=== PATIENT | male | born 1980 | race Caucasian/White ===

== ENCOUNTER 2020-10-24 17:12 | Outpatient (RCR) | payer BC, SELFPAY ==
[2020-10-24] MEDS: COVID-19 VACC, MRNA(PFIZER)/PF 30 MCG/0.3 ML SYRINGE IM (07:13)
[2020-11-14] MEDS: COVID-19 VACC, MRNA(PFIZER)/PF 30 MCG/0.3 ML SYRINGE IM (07:04)
== END 2020-10-24 23:59 ==
LOC: IMMUN 17:12
PROVIDERS: PCP Student in an Organized Health Care Education/Training Program; Visit Provider Family Medicine
DX: Z23 Encounter for immunization (principal)
CPT/HCPCS: 0001A; 0002A; 91300

== ENCOUNTER 2021-11-14 14:40 | Inpatient (IN) | payer BC, SELFPAY ==
[2021-11-14] VITALS (24 sets, daily range): BP systolic 73–107; BP diastolic 25–68; PULSE 94–127; RESP 18–24; TEMP 36.4–39.6; O2SAT 91–99; BMI 50.2; BMI 50.1
--- NOTE | 2021-11-14 14:53 | EKG12_ITS ---
Test Reason : Blood Pressure : / mmHG Vent. Rate : 129 BPM Atrial Rate : 129 BPM P-R Int : 146 ms QRS Dur : 082 ms QT Int : 304 ms P-R-T Axes : 039 014 027 degrees QTc Int : 445 ms Sinus tachycardia Low Voltage QRS (Limb Leads) Confirmed by BARB GARCIA, KIAH ([id number]), order editor AILYN MCBRIDE ([id number]) on 11/18/2021 11:19:19 AM Referred By: CARLOS A Confirmed By:KIAH DAY MD
--- NOTE | 2021-11-14 15:04 | EDS_ITS ---
HPI History of Present Illness Chief Complaint: Wound Narrative Narrative: Patient presents with left foot redness with black spot on dorsum of left foot. Of note, he has a chronic ulceration of his right heel, and of his left arch. 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 He woke this morning and noticed that his left foot was severely swollen, reddened, with a black spot on top of it. He denies any fevers but states he is now chilled. He does not have a lot of pain because he has history of diabetes with diabetic neuropathy. He has had a hard time dealing with diabetic foot ulcers on his right, but is here because of the left foot swelling, and redness. No nausea or vomiting, no other symptoms. [facility] Medical History Diabetes Home Medications ciprofloxacin HCl 11/14/21 [History Last Taken Unknown] empagliflozin [Jardiance] mg 11/14/21 [History Last Taken Unknown] lisinopril 11/14/21 [History Last Taken Unknown] metformin mg 11/14/21 [History Last Taken Unknown] pravastatin 11/14/21 [History Last Taken Unknown] Allergy/AdvReac Type Severity Reaction Status Date / Time Penicillins [PCN] Allergy Rash Verified 11/14/21 14:41 Social History Smoking Status: Never smoker ROS ROS ED ROS Narrative Constitutional: No fever, no chills. HEENT: No sore throat. No neck pain. No loss of vision. No rhinorrhea. Cardiovascular: No chest pain. No palpitations. No pedal edema. Respiratory: No cough, no shortness of breath. Abdominal: No abdominal pain. No nausea. No vomiting. Genitourinary: No dysuria. No hematuria. Musculoskeletal: No myalgias. No arthralgias. Left foot redness, with swelling. Neurologic: No headaches. No dizziness. No lightheadedness. Skin: No rash. No change in color. Psychiatric: No depression. No anxiety. EXAM Physical Exam Narrative Exam Narrative: Afebrile. Vital signs noted. Nontoxic appearing, however has rigors occasionally during examination. HEENT: Normocephalic. Atraumatic. PERRL, EOMI. Neck soft and supple. No point tenderness or step off. Cardiovascular: Positive tachycardia. No murmurs, rubs, or gallops appreciated. Respiratory: No tachypnea. Lungs clear to auscultation bilaterally. Gastrointestinal: Abdomen soft, nontender, with normoactive bowel sounds. No rebound or guarding. Neurological: Awake. Alert. Nonfocal, nonlateralizing. Skin: No rash. Left foot swollen with noted ulceration in arch of left foot. Diffuse erythema. No pallor. Positive area of eschar versus blood blister on dorsum of left foot. Musculoskeletal: No pedal edema. Full range of motion extremities. Const Vital Signs: 11/14/21 14:41 11/14/21 15:08 11/14/21 15:48 Temperature 98.3 F 103.2 F H 102.7 F H Temperature Source Temporal Oral Oral Pulse Rate 118 H 127 H Respiratory Rate 20 H 19 H Blood Pressure 107/65 94/50 L Blood Pressure Mean 79 64 Pulse Ox 96 92 91 Oxygen Delivery Method Room Air Room Air Room Air Oxygen Flow Rate (L/min) 11/14/21 16:02 11/14/21 16:35 11/14/21 16:44 Temperature 102.7 F H 103 F H Temperature Source Oral Oral Pulse Rate 125 H 114 H Respiratory Rate 19 H 20 H Blood Pressure 79/44 L 82/45 L 82/45 L Blood Pressure Mean 55 57 57 Pulse Ox 93 95 Oxygen Delivery Method Nasal Cannula Nasal Cannula Oxygen Flow Rate (L/min) 2 2 11/14/21 16:53 11/14/21 17:03 11/14/21 17:04 Temperature 103 F H 103 F H 103 F H Temperature Source Oral Oral Oral Pulse Rate 116 H 114 H 114 H Respiratory Rate 18 24 H 24 H Blood Pressure 90/50 L 99/57 L 99/57 L Blood Pressure Mean 63 71 71 Pulse Ox 95 94 94 Oxygen Delivery Method Nasal Cannula Nasal Cannula Nasal Cannula Oxygen Flow Rate (L/min) 2 2 2 11/14/21 17:29 11/14/21 17:38 11/14/21 17:57 Temperature 102.6 F H 102 F H Temperature Source Oral Oral Pulse Rate 104 H 105 H 100 Respiratory Rate 19 H 20 H 20 H Blood Pressure 94/68 84/54 L 98/55 L Blood Pressure Mean 76 64 69 Pulse Ox 95 95 95 Oxygen Delivery Method Nasal Cannula Nasal Cannula Nasal Cannula Oxygen Flow Rate (L/min) 2 2 2 11/14/21 18:10 Temperature 102.4 F H Temperature Source Oral Pulse Rate 96 Respiratory Rate 21 H Blood Pressure 98/63 Blood Pressure Mean 74 Pulse Ox 98 Oxygen Delivery Method Oxygen Flow Rate (L/min) MDM MDM MDM Narrative Medical decision making narrative: Although the patient has been on antibiotics, sepsis work-up was pursued. He is tachycardic. EKG demonstrates sinus tachycardia 129 bpm without ectopy or acute ST changes. No STEMI. He is afebrile here. However, he did spike a temperature as high as 103 ?F. He will be bolused IV fluids. He has a white count elevated at 11.7 with a hemoglobin normal at 13.9, platelet count slightly low at 149. Coagulation studies are negative. Sodium level 130, BUN of 73 with a creatinine of 3.15. Glucose elevated at 245 with a normal anion gap of 9. Lactic acid is elevated at 2.9. Chest x-ray shows no acute process this was interpreted by myself. He will be bolused a total of 30 mL/kg which is close to 5 L. He was administered Tylenol as an antipyretic. He states his chills have stopped. X-ray interpreted by myself of the left foot does show gas in the tissue. There are previous fractures noted by radiology/confirmed by radiology with gas in the tissue noted. Patient does have a history of Owqegxw-Pcoja-Tevsn disease. However, given gas noted within the tissue of his left foot, I discussed the patient with podiatry, Dr. Perkins, who will take the patient to the OR emergently. He was started on antibiotics in the form of meropenem and vancomycin. Blood cultures are pending. Critical care time 33 minutes. Disposition is admit. Dr. Perkins did request that I speak with the hospitalist. I was able to speak with Dr. Julien, with intensive care who agrees with ICU admission at least temporarily. I then spoke with Dr. Garnett. Patient does have an elevated BUN and creatinine and may be more with acute kidney injury and dehydration than septic shock. He is still mentating well. 30 mL /kg of IV fluid was ordered. He has received at least 2 L and had an increase to his blood pressure of 107/65. Patient does have IV access with 2 IVs in the upper extremities. He declined central line placement currently and prefers that if needed that it be done under anesthesia. I did discuss this with the anesthesiologist should it be needed. I do not feel the need to start IV pressors for septic shock. Patient will be taken to the OR emergently, then admitted to the ICU afterwards. He is in guarded condition. Lab Data Attestation: I reviewed the patient's lab results. Labs: Laboratory Results - last 24 hr 11/14/21 11/14/21 11/14/21 15:11 15:11 15:11 WBC 11.7 H RBC 4.89 Hgb 13.9 Hct 40.6 MCV 83.0 MCH 28.4 MCHC 34.2 RDW Std Deviation 41.0 RDW Coeff of Venita 13.5 Plt Count 149 L MPV 10.3 Immature Gran % (Auto) 0.800 Neut % (Auto) 93.0 H Lymph % (Auto) 2.7 L [place] % (Auto) 3.3 Eos % (Auto) 0.0 Baso % (Auto) 0.2 Absolute Neuts (auto) 10.8 H Absolute Lymphs (auto) 0.32 L Nucleated RBC % 0 Differential Comment SCANNED PT 15.1 H INR 1.3 APTT 32.0 Sodium 130 L Potassium 4.4 Chloride 98 Carbon Dioxide 23.0 Anion Gap 9 BUN 73 H Creatinine 3.15 H Estim Creat Clear Calc 33.53 Est GFR (MDRD) Af Amer 28 L Est GFR (MDRD) Non-Af 23 L BUN/Creatinine Ratio 23.2 H Glucose 245 H Lactic Acid Calcium 9.7 Total Bilirubin 0.90 AST 32 ALT 37 Alkaline Phosphatase 85 Total Protein 7.6 Albumin 2.8 L Globulin 4.8 H Albumin/Globulin Ratio 0.6 L Urine Color Urine Clarity Urine pH Ur Specific [place] Urine Protein Urine Glucose (UA) Urine Ketones Urine Occult Blood Urine Nitrite Urine Bilirubin Urine Urobilinogen Ur Leukocyte Esterase Urine RBC Urine WBC Ur Squamous Epith Cells Urine Bacteria Hyaline Casts Fine Granular Casts Urine Mucus 11/14/21 11/14/21 15:11 16:36 WBC RBC Hgb Hct MCV MCH MCHC RDW Std Deviation RDW Coeff of Venita Plt Count MPV Immature Gran % (Auto) Neut % (Auto) Lymph % (Auto) [place] % (Auto) Eos % (Auto) Baso % (Auto) Absolute Neuts (auto) Absolute Lymphs (auto) Nucleated RBC % Differential Comment PT INR APTT Sodium Potassium Chloride Carbon Dioxide Anion Gap BUN Creatinine Estim Creat Clear Calc Est GFR (MDRD) Af Amer Est GFR (MDRD) Non-Af BUN/Creatinine Ratio Glucose Lactic Acid 2.9 H* Calcium Total Bilirubin AST ALT Alkaline Phosphatase Total Protein Albumin Globulin Albumin/Globulin Ratio Urine Color Yellow Urine Clarity Sl. Cloudy Urine pH 5.0 Ur Specific [place] 1.015 Urine Protein 30 H Urine Glucose (UA) 1000 H Urine Ketones 5 H Urine Occult Blood 10 H Urine Nitrite Negative Urine Bilirubin Negative Urine Urobilinogen Normal Ur Leukocyte Esterase Negative Urine RBC 0-5 SEEN Urine WBC 0-5 SEEN Ur Squamous Epith Cells 0-5 SEEN Urine Bacteria 0 SEEN Hyaline Casts 0-5 SEEN Fine Granular Casts 0-5 SEEN Urine Mucus 0 SEEN Radiography Diagnostic Testing: Clinical Impression(s) from Imaging Studies Chest X-Ray 11/14/21 15:30 IMPRESSION: Nonacute portable x-ray examination of the chest. Electronically Signed: Luigi Santacruz MD ([place]oks) at 15:49 EDT , Foot X-Ray 11/14/21 15:30 IMPRESSION: 1. Significant deformity of the midfoot suggesting possibility of neuropathic arthropathy. However, given the degree of soft tissue swelling and localized air, infection is also in the differential diagnosis. 2. Old fractures of the second-fifth metatarsals with residual deformity. Electronically Signed: Luigi Santacruz MD (Brooks) at 15:53 EDT , Tibia/Fibula X-Ray 11/14/21 17:10 IMPRESSION: No destructive bony process. Diffuse soft tissue swelling. Electronically Signed: Luigi Santacruz MD (Brooks) at 17:23 EDT , Critical Care Time Critical Care Time: Yes Critical care time (excluding procedures): 30-74 minutes (33), Including time spent:, Discussing w/Patient &/or Family/Delivery Technician, Discussing w/Consultants, Arranging Admission or Transfer and Performing Direct Patient Care at Bedside Discharge Plan Dx/Rx/DC Orders Clinical Impression: Diabetic infection of left foot, Sepsis, Dehydration, Acute kidney injury, Acute hyponatremia Disposition Disposition: Acute Care [facility] Discharge Date/Time: 11/14/21 19:23
[2021-11-14] MEDS: Acetaminophen 325 MG Tablet 650 MG PO (15:17)
[2021-11-14 15:29] LABS: Absolute Lymphocyte Count 0.32 X10^3/uL (0.83-4.51); Absolute Neutrophil Count 10.8 X10^3/uL (2.0-7.7); Basophil# 0.02 X10^3/uL; Basophil% 0.2 % (0-1); Hematocrit 40.6 % (40-54); Hemoglobin 13.9 g/dL (13.0-16.5); Lymphocyte # 0.32 X10^3/ul (0.83-4.51); Lymphocyte % 2.7 % (19-41); Mean Corp Hgb Conc 34.2 g/dL (32-36); Mean Corpuscular Hgb 28.4 pg (27.0-32.0); Mean Platelet Vol. 10.3 fl (6.2-12.0); Monocyte# 0.38 X10^3/uL; Monocyte% 3.3 % (0-10); NRBC Flagged by Analyzer 0 % (0-5); Neutrophil # 10.84 X10^3/uL (2.7-7.7); POSITIVE DIFFERENTIAL YES; Platelet Count 149 K/mm3 (150-450); RBC Distribution Width CV 13.5 % (11.6-14.6); Red Blood Count 4.89 M/mm3 (4.6-6.2); White Blood Count 11.7 K/mm3 (4.4-11.0)
[2021-11-14 15:30] LABS: Differential Indicated SCAN CRITERIA MET
--- NOTE | 2021-11-14 15:30 | RAD_ITS ---
STUDY: X-RAY - LEFT FOOT CLINICAL: Male, 41 years old. infection TECHNIQUE: 3 view(s) of the foot. COMPARISON: None. FINDINGS: Significant deformity of the mid foot including old fractures of the second through fifth metatarsals. There is increased sclerosis with areas of lucency involving the cuneiforms, cuboid, talus and anterior calcaneus. Normal second through fifth metatarsophalangeal joints. Normal interphalangeal joints and phalanges of the lesser toes. Significant soft tissue swelling throughout the foot with small collections of air in the dorsal and plantar soft tissues. RAD/Foot min 3 Views IMPRESSION: 1. Significant deformity of the midfoot suggesting possibility of neuropathic arthropathy. However, given the degree of soft tissue swelling and localized air, infection is also in the differential diagnosis. 2. Old fractures of the second-fifth metatarsals with residual deformity. Electronically Signed: Luigi Santacruz MD ([place]oks) at 15:53 EDT ,
--- NOTE | 2021-11-14 15:30 | RAD_ITS ---
STUDY: X-RAY CHEST REASON FOR EXAM: Male, 41 years old wound to bottom of left foot and right ankle, on ATB since Tuesday-diabetic TECHNIQUE: Single AP portable view of the chest. COMPARISON: None. FINDINGS: EKG leads project over the chest. Lungs are underexpanded. There is no demonstrated pleural abnormality. Normal size heart. Normal mediastinum and michelle. Normal visualized pulmonary arteries. Normal visualized aortic arch and descending thoracic aorta. Normal visualized thoracic spine. Normal visualized ribs, clavicles, and shoulders. There is no demonstrated abnormality of the visualized soft tissue structures of the upper abdomen. RAD/Chest 1 View (Portable) IMPRESSION: Nonacute portable x-ray examination of the chest. Electronically Signed: Luigi Santacruz MD ([place]oks) at 15:49 EDT ,
[2021-11-14 15:40] LABS: International Normalized Ratio 1.3; Prothrombin Time (Protime)PT. 15.1 SECONDS (11.7-14.9)
[2021-11-14 15:44] LABS: Differential Comment SCANNED
[2021-11-14 15:48] LABS: ALB/GLOB Ratio 0.6 RATIO (0.9-2.4); AST(SGOT) 32 U/L (15-37); Alanine Aminotransfer ALT/SGPT 37 U/L (16-61); Albumin, Serum 2.8 g/dL (3.2-5.0); Alkaline Phosphatase 85 U/L (45-117); Anion Gap 9 (5-15); BUN 73 mg/dL (7-18); BUN/Creat Ratio 23.2 RATIO (10-20); Calcium,Total 9.7 mg/dL (8.5-10.1); Chloride 98 mmol/L (98-107); Creatinine, Serum 3.15 mg/dL (0.70-1.30); EST Glomerular Filtration Rate 23 mL/min (>60); Est Glom Filt Rate - Afr Amer 28 mL/min (>60); Estimated Creatinine Clearance 33.53 ml/min; Globulin 4.8 g/dL (2.2-4.2); Glucose 245 mg/dL (74-106); Potassium 4.4 mmol/L (3.5-5.1); Protein, Total 7.6 g/dL (6.4-8.2); Sodium Level 130 mmol/L (136-145)
[2021-11-14 15:55] LABS: Lactic Acid 2.9 mmol/L (0.4-1.9)
--- NOTE | 2021-11-14 16:09 | ED.RN ---
DR. VALLEJO AWARE OF HYPOTENSION AND STATES THEY WILL NEED THE 30ML/KG NS.AWAITING ON ORDER. CURRENTLY RUNNING 1L NS WIDE OPEN.
[2021-11-14] MEDS: 0.9% Normal Saline 1,000 ML 999 ML IV ×4 (16:10→21:50)
[2021-11-14 16:47] LABS: Bacteria 0 SEEN /hpf (None Seen); Mucous, Urine 0 SEEN /hpf (<or=2+)
[2021-11-14 16:49] LABS: Color, Urine Yellow (Yellow); Glucose, Dipstick 1000 mg/dl (Normal); Ketone-Dipstick 5 mg/dl (Negative); Leukocyte Esterase-Dipstick Negative /ul (Negative); Nitrite-Dipstick Negative (Negative); Protein-Dipstick 30 mg/dl (Negative); Specific Gravity, Urine 1.015 (1.002-1.030); Urine Bilirubin Dipstick Negative (Negative); Urine Clarity Sl. Cloudy (Clear); Urine Urobilinogen Normal (Normal)
[2021-11-14 16:51] LABS: Occult Blood-Urine 10 /ul (Negative)
--- NOTE | 2021-11-14 17:02 | ED.RN ---
[employer] Architect Frankie is aware of pts vital signs and being treated for severe sepsis.
--- NOTE | 2021-11-14 17:10 | RAD_ITS ---
STUDY: X-RAY - LEFT TIBIA AND FIBULA REASON FOR EXAM: Male, 41 years old. gas infection TECHNIQUE: 2 view(s) of the tibia and fibula were obtained. COMPARISON: None. FINDINGS: Normal visualized tibia. Normal visualized fibula. There is non-specific soft tissue swelling. RAD/Tibia & Fibula 2 Views IMPRESSION: No destructive bony process. Diffuse soft tissue swelling. Electronically Signed: Luigi Santacruz MD (Brooks) at 17:23 EDT ,
[2021-11-14 17:13] LABS: Hyaline Cast 0-5 SEEN /lpf (0-5)
[2021-11-14 17:14] LABS: Fine Granular Cast- Urine 0-5 SEEN /lpf (0-5)
[2021-11-14 17:15] LABS: White Blood Cells 0-5 SEEN /hpf (0-5)
[2021-11-14 17:16] LABS: Red Blood Cells-Urine 0-5 SEEN /hpf (0-5)
[2021-11-14 17:22] LABS: Squamous Epithelial Cells - UA 0-5 SEEN /hpf (0-5)
--- NOTE | 2021-11-14 18:00 | PCM.HP.STD ---
HPI - General HPI Narrative SNEHA WEI, is a 41 M who presents with a new on set fever chills malaise due to a left foot ulceration which started in September. Patient is a type II diabetic with bilateral Charcot foot and a history of a severe right lower extremity infection. Patient notes that his blood sugar has been well controlled until recently noting a recent A1c of 6.2. He was seen by a assistant dean of students in [facility] by the name of Dex Kyle D.P.M. approximately 3 weeks prior for a left foot ulceration. On Tuesday of this week patient noticed some redness and swelling to the left foot and a fever, he reached out to his assistant dean of students and was prescribed oral antibiotics. Today he presents to the ED due to worsening of his fever chills malaise left foot swelling and redness. Patient has no pain to the site due to severe neuropathy. He notes significant purulent drainage from the site and has no other complaints at this time. [facility] Medical History Diabetes Home Medications ciprofloxacin HCl 11/14/21 [History Last Taken Unknown] empagliflozin [Jardiance] mg 11/14/21 [History Last Taken Unknown] lisinopril 11/14/21 [History Last Taken Unknown] metformin mg 11/14/21 [History Last Taken Unknown] pravastatin 11/14/21 [History Last Taken Unknown] Allergy/AdvReac Type Severity Reaction Status Date / Time Penicillins [PCN] Allergy Rash Verified 11/14/21 14:41 Social History Smoking Status: Never smoker Vital Signs Vital Signs Vital Signs: 11/14/21 14:41 11/14/21 15:08 11/14/21 15:48 Temperature 98.3 F 103.2 F H 102.7 F H Temperature Source Temporal Oral Oral Pulse Rate 118 H 127 H Respiratory Rate 20 H 19 H Blood Pressure 107/65 94/50 L Blood Pressure Mean 79 64 Pulse Ox 96 92 91 Oxygen Delivery Method Room Air Room Air Room Air Oxygen Flow Rate (L/min) 11/14/21 16:02 11/14/21 16:35 11/14/21 16:44 Temperature 102.7 F H 103 F H Temperature Source Oral Oral Pulse Rate 125 H 114 H Respiratory Rate 19 H 20 H Blood Pressure 79/44 L 82/45 L 82/45 L Blood Pressure Mean 55 57 57 Pulse Ox 93 95 Oxygen Delivery Method Nasal Cannula Nasal Cannula Oxygen Flow Rate (L/min) 2 2 11/14/21 16:53 11/14/21 17:03 11/14/21 17:04 Temperature 103 F H 103 F H 103 F H Temperature Source Oral Oral Oral Pulse Rate 116 H 114 H 114 H Respiratory Rate 18 24 H 24 H Blood Pressure 90/50 L 99/57 L 99/57 L Blood Pressure Mean 63 71 71 Pulse Ox 95 94 94 Oxygen Delivery Method Nasal Cannula Nasal Cannula Nasal Cannula Oxygen Flow Rate (L/min) 2 2 2 11/14/21 17:29 11/14/21 17:38 11/14/21 17:57 Temperature 102.6 F H 102 F H Temperature Source Oral Oral Pulse Rate 104 H 105 H 100 Respiratory Rate 19 H 20 H 20 H Blood Pressure 94/68 84/54 L 98/55 L Blood Pressure Mean 76 64 69 Pulse Ox 95 95 95 Oxygen Delivery Method Nasal Cannula Nasal Cannula Nasal Cannula Oxygen Flow Rate (L/min) 2 2 2 Weight Weight: 163.2 kg Body Mass Index (BMI) 50.1 Physical Exam Narrative Patient is alert oriented to person place and time. Patient seen bedside but typically ambulates in [place] walking boots to bilateral feet. Vascular: Dorsalis pedis and posterior tibial pulses palpable 2 out of 4 to bilateral lower extremity. Capillary fill time brisk to all digits bilaterally. Digital hair growth noted bilaterally. There is significant edema and erythema noted to the left foot along with warmth extending into the ankle. Neurologic: Light touch protective sensation absent to bilateral feet. No pain on physical examination. Dermatologic: Full-thickness ulceration noted to the plantar left medial longitudinal arch, this wound probes down the level of bone and is exuding significant amount of purulence there is periwound crepitus warmth erythema edema extending into the dorsal midfoot. No evidence of crepitus or fluctuance noted to the area ankle region or more proximal to that. There is a hemorrhagic bullous to the dorsal left foot with communicating erythema down to the plantar medial foot wound. Musculoskeletal: Charcot foot deformity noted bilaterally with collapse of lateral longitudinal arch creating a plantar convexity bilaterally. Muscular strength full to bilateral lower extremity compartments. Crepitus noted to the wound and periwound area on the left lower extremity. Results Lab / Micro Data Result Diagrams: 11/14/21 15:11 11/14/21 15:11 Labs: Laboratory Results - last 24 hr 11/14/21 15:11: WBC 11.7 H, RBC 4.89, Hgb 13.9, Hct 40.6, MCV 83.0, MCH 28.4, MCHC 34.2, RDW Std Deviation 41.0, RDW Coeff of Venita 13.5, Plt Count 149 L, MPV 10.3, Immature Gran % (Auto) 0.800, Neut % (Auto) 93.0 H, Lymph % (Auto) 2.7 L, Yell % (Auto) 3.3, Eos % (Auto) 0.0, Baso % (Auto) 0.2, Absolute Neuts (auto) 10.8 H, Absolute Lymphs (auto) 0.32 L, Nucleated RBC % 0, Differential Comment SCANNED 11/14/21 15:11: PT 15.1 H, INR 1.3, APTT 32.0 11/14/21 15:11: Sodium 130 L, Potassium 4.4, Chloride 98, Carbon Dioxide 23.0, Anion Gap 9, BUN 73 H, Creatinine 3.15 H, Estim Creat Clear Calc 33.53, Est GFR (MDRD) Af Amer 28 L, Est GFR (MDRD) Non-Af 23 L, BUN/Creatinine Ratio 23.2 H, Glucose 245 H, Calcium 9.7, Total Bilirubin 0.90, AST 32, ALT 37, Alkaline Phosphatase 85, Total Protein 7.6, Albumin 2.8 L, Globulin 4.8 H, Albumin/Globulin Ratio 0.6 L 11/14/21 15:11: Lactic Acid 2.9 H* 11/14/21 16:36: Urine Color Yellow, Urine Clarity Sl. Cloudy, Urine pH 5.0, Ur Specific [place] 1.015, Urine Protein 30 H, Urine Glucose (UA) 1000 H, Urine Ketones 5 H, Urine Occult Blood 10 H, Urine Nitrite Negative, Urine Bilirubin Negative, Urine Urobilinogen Normal, Ur Leukocyte Esterase Negative, Urine RBC 0-5 SEEN, Urine WBC 0-5 SEEN, Ur Squamous Epith Cells 0-5 SEEN, Urine Bacteria 0 SEEN, Hyaline Casts 0-5 SEEN, Fine Granular Casts 0-5 SEEN, Urine Mucus 0 SEEN Radiology Impression Chest X-Ray 11/14/21 15:30 IMPRESSION: Nonacute portable x-ray examination of the chest. Electronically Signed: Luigi Santacruz MD ([place]oks) at 15:49 EDT , Foot X-Ray 11/14/21 15:30 IMPRESSION: 1. Significant deformity of the midfoot suggesting possibility of neuropathic arthropathy. However, given the degree of soft tissue swelling and localized air, infection is also in the differential diagnosis. 2. Old fractures of the second-fifth metatarsals with residual deformity. Electronically Signed: Luigi Santacruz MD (Brooks) at 15:53 EDT , Tibia/Fibula X-Ray 11/14/21 17:10 IMPRESSION: No destructive bony process. Diffuse soft tissue swelling. Electronically Signed: Luigi Santacruz MD (Brooks) at 17:23 EDT , Assessment & Plan Assessment/Plan (1) Diabetic infection of left foot: PLAN: Patient examined and evaluated, all findings examined and reviewed with patient's in detail. This discussion was held with patient's family as well. Radiographs of the left foot demonstrate subcutaneous emphysema adjacent to the plantar foot wound extending to the dorsal midfoot. Tibiofibular radiographs were ordered to rule out any proximal spread of soft tissue emphysema. Patient developed a wound to his left foot in September which was treated by another provider in the middle of October, but developed an infection to this foot over the past week. Patient appears vitally unstable at this time with tachycardia and hypotension likely secondary to severe left lower extremity gas infection. After discussion with multiple providers decision was made to take the patient for emergent incision and drainage of severe left foot gas infection. Patient will be admitted to the ICU due to vital instability. We will consult infectious disease for additional management. Patient currently receiving IV vancomycin in the ED. Upon completion of the procedure I would recommend addition of Zosyn and clindamycin as clindamycin has been documented limit exotoxin toxin synthesis and may decrease any systemic effects from this infection. Patient will be followed closely and depending his response to surgical intervention and IV antibiotics along with fluid replacement we may consider delayed primary closure or repeat debridement in the following next couple days. We will follow patient daily. 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
--- NOTE | 2021-11-14 18:46 | HP.PCM.HOS_ITS ---
[facility] - General General Date of Service: 11/14/21 HPI Narrative SNEHA WEI, is a 41 M who presents to the ER at [facility] due to fever and chills at home and increased swelling of his left foot. Patient is a type II diabetic, he takes oral medications, he states that he was on vacation in [place] September of this year and he got a blister on the plantar surface of his left foot, since that time, he has been seeing physicians regarding this foot blister, he was placed on antibiotics approximately a week ago by a antichecking iron worker in [facility]. Today he stated that he did not feel well and he came to the ER here for evaluation. Patient gets his medical care in [place], his last labs that were done appear to be in December of last year, it showed his hemoglobin A1c to be 6 and his creatinine was 0.9. Patient denies any history of chronic kidney disease, again he does not take any insulin. Valuation in the emergency room showed the patient to have a very high fever of 103, his blood pressure on admission to the ER was 82/45, his respiratory rate was 20. Patient's pulse ox on room air initially was 92%, he was then subsequently placed on 2 L of oxygen with a pulse ox of 95. On examination, patient's left foot was grossly swollen, there was an open area on the plantar surface of the left foot in the mid arch area, there was also an ecchymotic area on the dorsum of the patient's left foot. Patient's right lateral malleolus had a small ulceration but this did not appear purulent-according to the patient this was a chronic wound. Patient had changes over both his feet suggestive of Charcot feet. Labs were obtained, patient's white blood cell count was 11.7, platelet count was 149, sodium was 130, BUN was 73, creatinine was 3.15 and glucose was 245. Patient's lactic acid was 2.9. X-ray of the left foot showed a significant deformity of the midfoot suggestive possibility of neuropathic arthropathy, there was a significant amount of soft tissue swelling throughout the foot with small collections of air in the dorsal and plantar soft tissues. Podiatry was contacted (Dr. Perkins) and he requested admission under the hospitalist service due to the patient's unstable medical condition. Patient was given fluids in the emergency room with a positive response, blood pressure at the time of my dictation was 106 systolic. Patient will be admitted to ICU for septic shock from deep neuropathic foot infection, he will most likely go to surgery before he is admitted to ICU, critical care will see the patient in the morning, patient was given meropenem and vancomycin in the ER-this will be continued in the ICU. I believe the patient probably has acute kidney injury-I do not have a recent set of labs on the patient, again the last lab work that I was able to obtain was from last December 2020. [facility] Medical History Diabetes Home Medications ciprofloxacin HCl 11/14/21 [History Last Taken Unknown] empagliflozin [Jardiance] mg 11/14/21 [History Last Taken Unknown] lisinopril 11/14/21 [History Last Taken Unknown] metformin mg 11/14/21 [History Last Taken Unknown] pravastatin 11/14/21 [History Last Taken Unknown] Allergy/AdvReac Type Severity Reaction Status Date / Time Penicillins [PCN] Allergy Rash Verified 11/14/21 14:41 Social History Smoking Status: Never smoker ROS Constitutional Constitutional: Reports chills, fever(s), malaise and weakness; Denies anorexia, change in weight or night sweats Eyes Eyes: Denies blurry vision, change in vision, discharge from eye(s), double vision or eye pain Cardiovascular Cardiovascular: Denies chest pain, claudication, dyspnea on exertion, edema, lightheadedness, orthopnea or palpitations Respiratory/Chest Respiratory/Chest: Denies cough, hemoptysis, shortness of breath at rest or shortness of breath with exertion Gastrointestinal Gastrointestinal: Denies abdominal pain, constipation, diarrhea, dyspepsia, hematemesis, hematochezia, melena, nausea or vomiting Genitourinary Genitourinary: Denies difficulty urinating, dysuria, hematuria, urinary frequency, urinary hesitancy, urinary incontinence or urinary urgency Musculoskeletal Musculoskeletal: Denies back pain, joint pain, joint stiffness, joint swelling, myalgias or neck pain Neurologic Neurologic: Reports other Details: Patient has decreased sensation in his feet which is a chronic problem due to his diabetes ; Denies abnormal gait, abnormal speech, dizziness, focal weakness, headache(s), loss of vision, numbness, other visual disturbances, paresthesias, syncope or tingling Psychiatric Psychiatric: Denies anxiety, cognitive impairment, depression, irritability, mood swings or suicidal ideation Endocrine Endocrinology: Denies change in body appearance, cold intolerance, excessive sweating, heat intolerance, polydipsia or polyuria Hematologic/Lymphatic Hematologic/Lymphatic: Denies none, anemia, easy bleeding, easy bruising or lymphadenopathy Allergic/Immunologic Allergic/Immunologic: Denies rhinitis, urticaria, eczemia or asthma Vital Signs Vital Signs Vital Signs: 11/14/21 14:41 11/14/21 15:08 11/14/21 15:48 Temperature 98.3 F 103.2 F H 102.7 F H Temperature Source Temporal Oral Oral Pulse Rate 118 H 127 H Respiratory Rate 20 H 19 H Blood Pressure 107/65 94/50 L Blood Pressure Mean 79 64 Pulse Ox 96 92 91 Oxygen Delivery Method Room Air Room Air Room Air Oxygen Flow Rate (L/min) 11/14/21 16:02 11/14/21 16:35 11/14/21 16:44 Temperature 102.7 F H 103 F H Temperature Source Oral Oral Pulse Rate 125 H 114 H Respiratory Rate 19 H 20 H Blood Pressure 79/44 L 82/45 L 82/45 L Blood Pressure Mean 55 57 57 Pulse Ox 93 95 Oxygen Delivery Method Nasal Cannula Nasal Cannula Oxygen Flow Rate (L/min) 2 2 11/14/21 16:53 11/14/21 17:03 11/14/21 17:04 Temperature 103 F H 103 F H 103 F H Temperature Source Oral Oral Oral Pulse Rate 116 H 114 H 114 H Respiratory Rate 18 24 H 24 H Blood Pressure 90/50 L 99/57 L 99/57 L Blood Pressure Mean 63 71 71 Pulse Ox 95 94 94 Oxygen Delivery Method Nasal Cannula Nasal Cannula Nasal Cannula Oxygen Flow Rate (L/min) 2 2 2 11/14/21 17:29 11/14/21 17:38 11/14/21 17:57 Temperature 102.6 F H 102 F H Temperature Source Oral Oral Pulse Rate 104 H 105 H 100 Respiratory Rate 19 H 20 H 20 H Blood Pressure 94/68 84/54 L 98/55 L Blood Pressure Mean 76 64 69 Pulse Ox 95 95 95 Oxygen Delivery Method Nasal Cannula Nasal Cannula Nasal Cannula Oxygen Flow Rate (L/min) 2 2 2 11/14/21 18:10 Temperature 102.4 F H Temperature Source Oral Pulse Rate 96 Respiratory Rate 21 H Blood Pressure 98/63 Blood Pressure Mean 74 Pulse Ox 98 Oxygen Delivery Method Oxygen Flow Rate (L/min) Weight Weight: 163.2 kg Body Mass Index (BMI) 50.1 Physical Exam Narrative Patient appeared his stated age, he appeared diaphoretic but was alert and appropriate. Const alert, oriented x3, no apparent distress and healthy appearing Constitutional Narrative: Patient was morbidly obese General Appearance: cooperative, well kempt and well developed Orientation / Consciousness: awake, oriented to person, oriented to place and oriented to time HEENT normocephalic and moist oral mucous membranes Eyes PERRL, EOMs intact bilaterally and conjunctivae normal Neck nuchal rigidity, supple, no JVD, thyroid normal and no carotid bruits General: trachea midline Resp normal respiratory effort, no retractions, no use of accessory muscles and clear to auscultation bilaterally Auscultation: Negative for rales, rhonchi or wheezes Cardio regular rate, regular rhythm, S1 normal heart sound, S2 normal heart sound, no murmurs, no rub and no gallops GI normal to inspection, nondistended, normoactive bowel sounds, soft to palpation, non-tender and non-distended Extremity Extremity Narrative: There are deformities of both feet in keeping with Charcot feet, decreased sensation to light touch and pinprick in the feet were noted Skin Skin Narrative: There was a wound over the plantar surface of the patient's left foot at the midpoint, this open area was approximately 3 to 4 cm in diameter, this area was not probed by myself, there is also an ecchymotic area that appears to be blisterlike on the dorsum of the left foot over the midfoot area. General Skin Exam: no breakdown Neuro oriented x3, CN's II-XII intact bilaterally, no focal motor deficits and no sensory deficits noted Sensorium / Orientation: awake and alert Speech: speech normal Psych affect normal Results Lab / Micro Data Result Diagrams: 11/14/21 15:11 11/14/21 15:11 Labs: Laboratory Results - last 24 hr 11/14/21 15:11: WBC 11.7 H, RBC 4.89, Hgb 13.9, Hct 40.6, MCV 83.0, MCH 28.4, MCHC 34.2, RDW Std Deviation 41.0, RDW Coeff of Venita 13.5, Plt Count 149 L, MPV 10.3, Immature Gran % (Auto) 0.800, Neut % (Auto) 93.0 H, Lymph % (Auto) 2.7 L, [place] % (Auto) 3.3, Eos % (Auto) 0.0, Baso % (Auto) 0.2, Absolute Neuts (auto) 10.8 H, Absolute Lymphs (auto) 0.32 L, Nucleated RBC % 0, Differential Comment SCANNED 11/14/21 15:11: PT 15.1 H, INR 1.3, APTT 32.0 11/14/21 15:11: Sodium 130 L, Potassium 4.4, Chloride 98, Carbon Dioxide 23.0, Anion Gap 9, BUN 73 H, Creatinine 3.15 H, Estim Creat Clear Calc 33.53, Est GFR (MDRD) Af Amer 28 L, Est GFR (MDRD) Non-Af 23 L, BUN/Creatinine Ratio 23.2 H, Glucose 245 H, Calcium 9.7, Total Bilirubin 0.90, AST 32, ALT 37, Alkaline Phosphatase 85, Total Protein 7.6, Albumin 2.8 L, Globulin 4.8 H, Albumin/Globulin Ratio 0.6 L 11/14/21 15:11: Lactic Acid 2.9 H* 11/14/21 16:36: Urine Color Yellow, Urine Clarity Sl. Cloudy, Urine pH 5.0, Ur Specific [place] 1.015, Urine Protein 30 H, Urine Glucose (UA) 1000 H, Urine Ketones 5 H, Urine Occult Blood 10 H, Urine Nitrite Negative, Urine Bilirubin Negative, Urine Urobilinogen Normal, Ur Leukocyte Esterase Negative, Urine RBC 0-5 SEEN, Urine WBC 0-5 SEEN, Ur Squamous Epith Cells 0-5 SEEN, Urine Bacteria 0 SEEN, Hyaline Casts 0-5 SEEN, Fine Granular Casts 0-5 SEEN, Urine Mucus 0 SEEN Radiology Impression Chest X-Ray 11/14/21 15:30 IMPRESSION: Nonacute portable x-ray examination of the chest. Electronically Signed: Luigi Santacruz MD ([place]) at 15:49 EDT Reading Location ID and State: [facility] / [place] , Service support , Foot X-Ray 11/14/21 15:30 IMPRESSION: 1. Significant deformity of the midfoot suggesting possibility of neuropathic arthropathy. However, given the degree of soft tissue swelling and localized air, infection is also in the differential diagnosis. 2. Old fractures of the second-fifth metatarsals with residual deformity. Electronically Signed: Luigi Santacruz MD (Brooks) at 15:53 EDT , Tibia/Fibula X-Ray 11/14/21 17:10 IMPRESSION: No destructive bony process. Diffuse soft tissue swelling. Electronically Signed: Luigi Santacruz MD ([place]) at 17:23 EDT , Assessment & Plan Assessment/Plan (1) Type 2 diabetes mellitus with diabetic polyneuropathy: QUALIFIERS: Diabetes mellitus longterm insulin use: without longterm use Qualified Code(s): E11.42 - Type 2 diabetes mellitus with diabetic polyneuropathy PLAN: 1. Deep neuropathic wound of the left foot secondary to diabetic neuropathy with possible gas gangrene-patient will need to go to surgery tonight, I talked briefly with podiatry about his care. Patient was given meropenem and vancomycin in the emergency room and is being administered fluids. Cultures will be obtained during surgery. #2 septic shock secondary to #1-patient's blood pressure has improved with administration of fluids in the emergency room, he is on no pressors at the moment, he may not need pressors after fluid resuscitation. Patient will need to go to the ICU after surgery for further care. Vancomycin and meropenem will be continued. #3 type 2 diabetes-on oral medications only-patient's blood sugars will be monitored and sliding scale insulin will be used #4 morbid obesity-complicates care and recovery #5 diabetic neuropathy of the feet-complicates care and recovery #6 acute kidney injury-again I do not have a recent creatinine on the patient but it appears that the patient's renal function at baseline is normal, patient has never been told that he has had a problem with kidney function. #7 hyponatremia-patient will receive IV normal saline, labs will be monitored Charges/Coding Visit Charges Inpatient E&M: 22730 Init Hosp L3
[2021-11-14 19:15] LABS: Reflex Lactate? Y
--- NOTE | 2021-11-14 19:40 | BON_PTH ---
PATIENT: SNEHA WEI Jr. LOC: [facility] U#:[id number] AGE/SX: 41/M ROOM: [facility] RE11/14/[address]: Dr. Zain Shields DO : 1980 BED: 1 DIS: 11/21/2021 SPEC #: [id number] RECD: 11/16/21 08:04 STATUS: CAROLINA EDWARD #: [id number] DEREK: 11/14/21 19:[address]: Jordi Perkins DEPT: SURGICAL PATHOLOGY RECD BY: Lizabeth Li ENTERED: 11/16/21 09:42 SP TYPE: Bone OTHR DR: MD Dr. Emil Constantino, DO Dr. Jordi Perkins, DPM Dr. Dom Villagomez, DO Dr. Luke Garnett, DO [place], RELIGIOUS HEALER-C Tissues: Bone of foot, NOS Procedures: Decalcification bone/plaque Surgery Specimen Level V Comments: @ Ordering doctor for DEC edited from to DR.DBULLA Richard NORRIS at 11/16/21 141 @ Ordering doctor for SUIV edited from to @ by MYRNA at 11/16/21 141Teofilo @ Submitting doctor edited from to @ jane NORRIS at 11/16/21 1417 HEADER OPERATION: Incision, drainage abscess left foot PRE-OP DIAGNOSIS: Diabetic infection of left foot TISSUE SUBMITTED: Bone tissue left foot MICROSCOPIC DIAGNOSIS Left foot bone, biopsy: Consistent with acute osteomyelitis. AM:era 11/17/2021 MICROSCOPIC DESCRIPTION Slides are reviewed. GROSS DESCRIPTION Received in fixative is one container labeled with the patient's name and designated left foot bone biopsy. The specimen consists of multiple irregular fragments of grover bone that in aggregate measure 2.5 x 1 x 0.2 cm. The specimen is totally submitted in one cassette after decalcification. / AM:era 11/16/2021 TC:2 CPT: 41509, 60444
[2021-11-14] MEDS: Bupivacaine Mpf 0.5% 30 ML VIAL (20:10)
--- NOTE | 2021-11-14 20:33 | OP.PCM_ITS ---
Problems Associated Problem List Diagnoses (1) 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 bone: (2) Gas gangrene: (3) Type 2 diabetes mellitus with diabetic polyneuropathy: (4) Diabetic infection of left foot: (5) 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 muscle: Operative Report Date of Procedure: 11/14/21 Surgeon: Jordi Perkins D.P.M. Anesthesia: MAC with local Preoperative diagnosis: Chronic left diabetic foot ulceration with acute gas infection down to the level of bone with osteomyelitis and tenosynovitis Postoperative diagnosis: Same Procedure: 1. Incision and drainage down to bone cortex with bone biopsy and cu lture left plantar foot wound 2. Incision and drainage left dorsal foot down to level of tendon sheath Street Car Inspector: None Hemostasis: None Estimated blood loss: 40 cc Materials: None Injectables: 30 cc half percent Marcaine plain Clinical decision-making: Patient developed a left foot ulceration in September 2021 on a vacation in [place]. Patient was seen by his primary medical director occupational health in the middle of October proximally 2 weeks prior to this encounter and was treated for this left foot ulceration. He has a history of Charcot deformity the bilateral feet and ambulates in [place] boots primarily at home. His blood sugar was well maintained until recently this infection spiked, he notes a recent A1c of 6.2. Patient notes that on Tuesday11/09/2021, he noticed some redness swelling and drainage to the left foot ulceration which had been increased since prior examination, he reached out to his medical director occupational health who called him in oral antibiotics. Patient notes continued progression of left foot drainage swelling erythema and develop systemic symptoms including fever chills and malaise. This is what brought him into the ED today. In the ED the patient was noted to be tachycardic with hypotension along with a fever and leukocytosis. Upon clinical examination there is noted to be a severe gas infection of the left foot confirmed with radiographs tibiofibular radiographs confirmed that the infection was limited to the foot. There were 2 main sites of soft tissue wounds emphysema the first was adjacent to the plantar foot wound the second was adjacent to a hemorrhagic bolus along the dorsal midfoot. Decision at that time was made for emergent decompression of the severe soft tissue infection Procedure in detail: Patient was brought back to the operating room he was transferred to the operating room table placed in the supine position with all osseous prominences offloaded to prevent any compression neuropraxia. Patient was induced under light sedation per anesthesia, local anesthesia was performed via local infiltration technique to the plantar foot wound and dorsal midfoot bullous along with a ankle ring block using 30 cc of half percent Marcaine plain. This was performed aseptically. A well-padded midcalf tourniquet was applied to left lower extremity; however, this was not used. The left lower extremity was then scrubbed prepped draped using typical aseptic manner. First procedure: Upon approval per anesthesia attention was taken to the plantar left foot wound which was completely excised down to the level of bone there is noted to be significant malodor and purulent drainage upon excision of this tissue. This tissue was sent to culture for prelavage tissue cultures. Additional swab cultures were taken from the site. Using bone rongeurs bone was taken from the plantar midfoot, due to significant Charcot changes the bone that was removed was likely that of the navicular, but this cannot be confirmed clinically. This bone was sent to pathology and culture for further examination. Additional bone resection was performed to plane the site and prevent any osseous prominence that may contribute to a future wound in this area. The incisional site was examined there is noted to be some loosening of the tissue along the plantar fascia but no extension into the fundus of the flexor tendons or distally into the forefoot. This was flushed with copious cj unts of normal sterile saline using low-pressure pulse lavage. The strip was packed with sterile gauze until completion of the second procedure. Second procedure: Attention was taken to the dorsal midfoot at the site of the hemorrhagic bolus a full-thickness skin incision was made through the level of epidermis dermis into subcutaneous tissue. Blunt dissection was taken down the level of deep fascia, all bleeders cauterized at this time any neurovascular structures were protected with blunt retraction. Incision was made through the level of deep fascia care was taken to avoid the dorsalis pedis artery and deep peroneal nerve. The extensor hallucis longus and extensor digitorum longus tendons were identified were devoid of any soft tissue infection. Upon initial incision there was was approximately 10 cc of foul-smelling thick purulent drainage. Again the incisional site was explored for any tissue necrosis there was some noted along the deep fascia along the course of the distal aspect of the incision this was excised completely. Both incisional sites were then flushed with copious amounts of normal sterile saline using low-pressure pulse lavage. Post lavage tissue cultures were taken from the dorsal foot as well as the plantar foot wounds. Upon further examination of the wounds there was noted to be healthy intact bleeding tissue with no residual purulence or necrotic tissue post debridement. Patient will be monitored closely as he has a severe life and limb threatening infection that may require future debridement. Incisional sites were cleansed with normal sterile saline and then dressed with Betadine wet-to-dry dressing dry sterile dressing and a well-padded Bradford compression dressing. Pathologic specimens: Left foot bone Culture: Prelavage tissue cultures, prelavage swab cultures, prelavage bone cultures, post lavage tissue culture Complications: None Findings: Severe deep abscess was identified to dorsal and plantar foot throughout the case, this extended down the level of bone along the plantar foot the level of tendon along the dorsal foot, but upon decompression the remaining tissue appears healthy at this time and demonstrates healthy bleeding to the site suggestive of healing.
--- NOTE | 2021-11-14 21:44 | NURSING ---
Before pt arrived to unit, surgery called to give report. This RN asked about central line access and pt's BP during surgery. rayon coner told this RN that she did not know about pt's BP and the doctor would be up to talk about it. It was also noted at that time that pt did not have a central line placed during surgery. Upon arrival to unit, pt's BP was 80s/50s with MAP consistently in the 50s. This RN asked surgeon about BP and it was stated that during surgery pt's BP was 90s/50s and fine and central line was not necessary at that time. Surgeon also stated that pt lost a decent amount of blood during the surgery. Pt's weight was also recorded at 165kg, but on arrival to unit bedscale read weight at 135kg. Dr. Saba notified of significant weight difference, BP status, and central line. Orders being placed accordingly by Dr. Saba.
--- NOTE | 2021-11-14 21:57 | PCM.RX.CS ---
Consult Pharmacy has been consulted to manage selected antiobiotic: Vancomycin Type of Consult: New start Suspected Infection: Sepsis, Skin/Soft tissue Labs: Sodium 130 mmol/L (136-145) L 11/14/21 15:11 Potassium 4.4 mmol/L (3.5-5.1) 11/14/21 15:11 Chloride 98 mmol/L (98-107) 11/14/21 15:11 Carbon Dioxide 23.0 mmol/L (21.0-32.0) 11/14/21 15:11 Anion Gap 9 (5-15) 11/14/21 15:11 BUN 73 mg/dL (7-18) H 11/14/21 15:11 Creatinine 3.15 mg/dL (0.70-1.30) H 11/14/21 15:11 Est GFR (MDRD) Af Amer 28 mL/min (>60) L 11/14/21 15:11 Est GFR (MDRD) Non-Af 23 mL/min (>60) L 11/14/21 15:11 BUN/Creatinine Ratio 23.2 RATIO (10-20) H 11/14/21 15:11 Glucose 245 mg/dL (74-106) H 11/14/21 15:11 Microbiology: Microbiology 11/14/21 18:47 Nasal Secretion SARS-CoV-2 Antigen (Rapid) - Final Weight used for dosin kg Estimated Creatinine Clearance: 39.6 Goal Trough: 15-20 mcg/mL Pharmacy Plan for Drug Dosing: Pharmacy Service will continue to monitor and adjust dosing as required. Medications Vancomycin HCl 1,500 mg/ (Sodium Chloride) 530 mls @ 250 mls/hr IV Q24H MAGDA Discontinued Medications Vancomycin HCl 2,000 mg/ (Sodium Chloride) 540 mls @ 250 mls/hr IV X1 ONE Stop: 11/14/21 18:32 Last Admin: 11/14/21 17:21 Dose: 250 mls/hr Documented by: Follow-Up Labs: Trough Vancomycin Labs to be done on [date and time ordered]: 11/16 @ 1700
[2021-11-14 22:11] LABS: Lactic Acid 1.4 mmol/L (0.4-1.9)
[2021-11-14] MEDS: Insulin Lispro 100 UNIT/ML INSULN.PEN SC (22:51)
[2021-11-14] MEDS: Heparin Injection (Vial) 5,000 UNIT/ML VIAL 5000 UNIT SC (22:51)
[2021-11-14] MEDS: 0.9% Normal Saline 1,000 ML 200 ML IV (22:55)
[2021-11-14 23:11] LABS: Bedside Glucose 192 mg/dL (74-106)
[2021-11-15] VITALS (49 sets, daily range): BP systolic 79–131; BP diastolic 42–75; PULSE 81–112; RESP 12–31; TEMP 36.1–39.4; O2SAT 88–98
--- NOTE | 2021-11-15 00:05 | PCM.HOSP.N ---
Hospitalist Note Patient now at 30 cc/kg bolus for sepsis protocol and still MAP < 65. He has refused central line placement and is aware of risk. He noted he would obtain have line placement under complete sedation and unfortunately this line was not placed during his procedural sedation. Will start low dose NEP peripheral with large bore IV x [address]
[2021-11-15] MEDS: Insulin Lispro 100 UNIT/ML INSULN.PEN SC ×3 (01:25→21:39)
[2021-11-15 01:31] LABS: Bedside Glucose 199 mg/dL (74-106)
[2021-11-15] MEDS: TITRATION PARAMETER CHANGE 1 EACH IV (02:25)
[2021-11-15] MEDS: 0.9% Normal Saline 1,000 ML 200 ML IV (04:01)
[2021-11-15 04:17] LABS: Absolute Lymphocyte Count 0.38 X10^3/uL (0.83-4.51); Absolute Neutrophil Count 7.6 X10^3/uL (2.0-7.7); Basophil# 0.01 X10^3/uL; Basophil% 0.1 % (0-1); Hematocrit 30.9 % (40-54); Hemoglobin 10.2 g/dL (13.0-16.5); Lymphocyte # 0.38 X10^3/ul (0.83-4.51); Mean Corpuscular Hgb 28.4 pg (27.0-32.0); Mean Corpuscular Volume 86.1 fL (80-94); Mean Platelet Vol. 10.6 fl (6.2-12.0); Monocyte# 1.27 X10^3/uL; Monocyte% 13.4 % (0-10); NRBC Flagged by Analyzer 0 % (0-5); Neutrophil # 7.62 X10^3/uL (2.7-7.7); Neutrophil % 80.3 % (47-70); POSITIVE DIFFERENTIAL YES; Platelet Count 112 K/mm3 (150-450); RBC Distribution Width CV 13.7 % (11.6-14.6); RBC Distribution Width SD 43.3 fl (35.1-43.9); Red Blood Count 3.59 M/mm3 (4.6-6.2); White Blood Count 9.5 K/mm3 (4.4-11.0)
[2021-11-15 04:19] LABS: Differential Indicated SCAN CRITERIA MET
[2021-11-15 05:02] LABS: ALB/GLOB Ratio 0.5 RATIO (0.9-2.4); AST(SGOT) 31 U/L (15-37); Alanine Aminotransfer ALT/SGPT 30 U/L (16-61); Albumin, Serum 1.8 g/dL (3.2-5.0); Alkaline Phosphatase 58 U/L (45-117); Anion Gap 9 (5-15); BUN 71 mg/dL (7-18); BUN/Creat Ratio 26.9 RATIO (10-20); Calcium,Total 7.7 mg/dL (8.5-10.1); Chloride 108 mmol/L (98-107); Creatinine, Serum 2.64 mg/dL (0.70-1.30); EST Glomerular Filtration Rate 29 mL/min (>60); Est Glom Filt Rate - Afr Amer 35 mL/min (>60); Estimated Creatinine Clearance 40.01 ml/min; Globulin 3.4 g/dL (2.2-4.2); Glucose 179 mg/dL (74-106); Potassium 4.3 mmol/L (3.5-5.1); Protein, Total 5.2 g/dL (6.4-8.2); Sodium Level 136 mmol/L (136-145)
[2021-11-15 05:09] LABS: Differential Comment SCANNED
--- NOTE | 2021-11-15 05:43 | EX.PCM.CONCC ---
Assessment & Plan Assessment/Plan (1) Septic shock: PLAN: RECOMMENDATIONS: 1. Okay to discontinue supplemental IV fluids. 2. Continue Levophed to maintain a mean arterial pressure at or above 65 mmHg. 3. If no additional surgical intervention is required, diet can be advanced. 4. Continue broad-spectrum antimicrobials. 5. Continue current pain control regimen. 6. Continue local wound care per podiatry recommendations. 7. Continue appropriate DVT prophylaxis. 8. Encourage incentive spirometer use while in bed. IMPRESSIONS: 1. Septic shock The patient presented to the hospital with sepsis due to diabetic foot ulcer/osteomyelitis with acute sepsis related organ dysfunction as evidenced by hypotension, acute kidney injury and lactic acidemia. The patient went on to develop fluid refractory hypotension, which necessitated the initiation of vasopressor support to maintain hemodynamic stability. Ultimately, the patient was taken to the OR and underwent I&D of the left plantar and dorsal foot wounds. Broad-spectrum antimicrobials were also initiated. Plan to continue to wean Levophed to maintain a mean arterial pressure at or above 65 mmHg. Continue local wound care per podiatry recommendations. Await results of culture data. 2. Acute kidney injury Likely prerenal in etiology/ischemic ATN in the setting of #1. Creatinine is improving with volume expansion. Plan to continue vasopressor support to maintain hemodynamic stability. Continue to monitor urine output. No current indication for renal replacement therapy. 3. Morbid obesity/hypertension/hyperlipidemia/diabetes mellitus Complicates care, management, recovery and prognosis. Continue to hold home antihypertensives. Continue sliding scale insulin coverage. TIME: 32 minutes of critical care time, independent of procedures, was spent addressing the patient's septic shock, osteomyelitis, acute kidney injury, review of all data and collaboration with the care team. HPI Consult Data Date of Consult: 11/15/21 HPI Narrative Reason for Consultation: Septic shock HPI Narrative: The patient is a 41-year-old male, with a history as outlined below, who presented to the emergency department on November 14 with fevers, chills and left lower extremity swelling. The patient reported that he returned from vacation to [place] in September, at which time, he noticed a blister on the plantar aspect of his left foot. 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 He did report that his diabetes mellitus is typically under good control. He has never been diagnosed with sleep apnea previously. He is a non-smoker. On presentation to the emergency department, the patient was noted to be febrile, tachycardic and tachypneic. Initial laboratory evaluation revealed a white blood cell count of 12,000. Platelet count was low at 149,000. Chemistry profile was notable for a sodium of 130, BUN of 73 and creatinine of 3.15. Lactate was elevated at 2.9. Urine analysis was unremarkable. Plain film chest x-ray demonstrated no acute cardiopulmonary process. X-ray of the left foot demonstrated significant soft tissue swelling throughout the foot with small collections of air in the dorsal and plantar soft tissues. The patient was subsequently evaluated by the podiatry service and was taken to the OR on November 14 where the patient underwent an I&D down to the bone cortex with bone biopsy and culture of the left plantar foot wound. Although the patient was fluid resuscitated per sepsis guidelines, the patient developed fluid refractory hypotension and ultimately had to be placed on vasopressor support to maintain hemodynamic stability. [facility] Medical History Diabetes Home Medications ciprofloxacin HCl BID 11/14/21 [History Last Taken 11/14/21] empagliflozin [Jardiance] mg DAILY 11/14/21 [History Last Taken 11/14/21] lisinopril DAILY 11/14/21 [History Last Taken 11/14/21] metformin mg BID 11/14/21 [History Last Taken 11/14/21] pravastatin QHS 11/14/21 [History Last Taken 11/13/21] Allergy/AdvReac Type Severity Reaction Status Date / Time Penicillins [PCN] Allergy Rash Verified 11/14/21 14:41 Social History Smoking Status: Never smoker ROS Constitutional Constitutional: Reports chills and fever(s) Eyes Eyes: Denies blurry vision or change in vision ENT HEENT: Denies dizziness, dysphagia, epistaxis or headache(s) Cardiovascular Cardiovascular: Denies chest pain or dizziness Respiratory/Chest Respiratory/Chest: Denies cough or dyspnea Gastrointestinal Gastrointestinal: Denies abdominal pain, diarrhea, nausea or vomiting Genitourinary Genitourinary: Denies difficulty urinating Musculoskeletal Musculoskeletal: Denies back pain Integumentary Integumentary: Reports skin ulcer and wounds Neurologic Neurologic: Denies abnormal gait or abnormal speech Psychiatric Psychiatric: Denies anxiety or depression Endocrine Endocrinology: Denies fatigue Hematologic/Lymphatic Hematologic/Lymphatic: Denies easy bleeding or easy bruising Physical Exam Const alert, oriented x3 and no apparent distress General Appearance: cooperative Nutritional Appearance: morbidly obese HEENT normocephalic and head/scalp atraumatic Eyes PERRL, EOMs intact bilaterally and conjunctivae normal Neck supple General: trachea midline Chest inspection of chest normal Resp normal respiratory effort Auscultation: Negative for rales, rhonchi or wheezes Cardio regular rate and regular rhythm GI normal to inspection, nondistended, normoactive bowel sounds Extremity Extremity Narrative: Wrapped left lower extremity. Neuro oriented x3, CN's II-XII intact bilaterally and moves all extremities Psych cooperative and affect normal Lab / Micro Data Result Diagrams: 11/15/21 04:05 11/15/21 04:05 Labs: Laboratory Results - last 24 hr 11/14/21 15:11: WBC 11.7 H, RBC 4.89, Hgb 13.9, Hct 40.6, MCV 83.0, MCH 28.4, MCHC 34.2, RDW Std Deviation 41.0, RDW Coeff of [place] 13.5, Plt Count 149 L, MPV 10.3, Immature Gran % (Auto) 0.800, Neut % (Auto) 93.0 H, Lymph % (Auto) 2.7 L, [place] % (Auto) 3.3, Eos % (Auto) 0.0, Baso % (Auto) 0.2, Absolute Neuts (auto) 10.8 H, Absolute Lymphs (auto) 0.32 L, Nucleated RBC % 0, Differential Comment SCANNED 11/14/21 15:11: PT 15.1 H, INR 1.3, APTT 32.0 11/14/21 15:11: Sodium 130 L, Potassium 4.4, Chloride 98, Carbon Dioxide 23.0, Anion Gap 9, BUN 73 H, Creatinine 3.15 H, Estim Creat Clear Calc 33.53, Est GFR (MDRD) Af Amer 28 L, Est GFR (MDRD) Non-Af 23 L, BUN/Creatinine Ratio 23.2 H, Glucose 245 H, Calcium 9.7, Total Bilirubin 0.90, AST 32, ALT 37, Alkaline Phosphatase 85, Total Protein 7.6, Albumin 2.8 L, Globulin 4.8 H, Albumin/Globulin Ratio 0.6 L 11/14/21 15:11: Lactic Acid 2.9 H* 11/14/21 16:36: Urine Color Yellow, Urine Clarity Sl. Cloudy, Urine pH 5.0, Ur Specific [place] 1.015, Urine Protein 30 H, Urine Glucose (UA) 1000 H, Urine Ketones 5 H, Urine Occult Blood 10 H, Urine Nitrite Negative, Urine Bilirubin Negative, Urine Urobilinogen Normal, Ur Leukocyte Esterase Negative, Urine RBC 0-5 SEEN, Urine WBC 0-5 SEEN, Ur Squamous Epith Cells 0-5 SEEN, Urine Bacteria 0 SEEN, Hyaline Casts 0-5 SEEN, Fine Granular Casts 0-5 SEEN, Urine Mucus 0 SEEN 11/14/21 21:00: Lactic Acid 1.4 11/14/21 22:50: POC Glucose 192 H 11/15/21 01:23: POC Glucose 199 H 11/15/21 04:05: WBC 9.5, RBC 3.59 L, Hgb 10.2 L, Hct 30.9 L, MCV 86.1, MCH 28.4, MCHC 33.0, RDW Std Deviation 43.3, RDW Coeff of [place] 13.7, Plt Count 112 L, MPV 10.6, Immature Gran % (Auto) 2.200 H, Neut % (Auto) 80.3 H, Lymph % (Auto) 4.0 L, [place] % (Auto) 13.4 H, Eos % (Auto) 0.0, Baso % (Auto) 0.1, Absolute Neuts (auto) 7.6, Absolute Lymphs (auto) 0.38 L, Nucleated RBC % 0, Differential Comment SCANNED 11/15/21 04:05: Sodium 136, Potassium 4.3, Chloride 108 H, Carbon Dioxide 19.0 L, Anion Gap 9, BUN 71 H, Creatinine 2.64 H, Estim Creat Clear Calc 40.01, Est GFR (MDRD) Af Amer 35 L, Est GFR (MDRD) Non-Af 29 L, BUN/Creatinine Ratio 26.9 H, Glucose 179 H, Calcium 7.7 L, Total Bilirubin 0.50, AST 31, ALT 30, Alkaline Phosphatase 58, Total Protein 5.2 L, Albumin 1.8 L, Globulin 3.4, Albumin/Globulin Ratio 0.5 L Micro: Microbiology 11/14/21 18:47 Nasal Secretion SARS-CoV-2 Antigen (Rapid) - Final Radiology Impression Chest X-Ray 11/14/21 15:30 IMPRESSION: Nonacute portable x-ray examination of the chest. Electronically Signed: Luigi Santacruz MD ([place]) at 15:49 EDT , Foot X-Ray 11/14/21 15:30 IMPRESSION: 1. Significant deformity of the midfoot suggesting possibility of neuropathic arthropathy. However, given the degree of soft tissue swelling and localized air, infection is also in the differential diagnosis. 2. Old fractures of the second-fifth metatarsals with residual deformity. Electronically Signed: Luigi Santacruz MD ([place]) at 15:53 EDT , Tibia/Fibula X-Ray 11/14/21 17:10 IMPRESSION: No destructive bony process. Diffuse soft tissue swelling. Electronically Signed: Luigi Santacruz MD ([place]) at 17:23 EDT , Charges/Coding Procedures Hospitalists Procedures: [id number] Critial Care 1st Hr
[2021-11-15 06:51] LABS: Bedside Glucose 204 mg/dL (74-106)
[2021-11-15 08:48] LABS: Erythrocyte Sedimentation Rate 46 mm/hr (0-20)
--- NOTE | 2021-11-15 09:32 | PN_ITS ---
Subjective Subjective 41-year-old male was seen bedside 1 day postop status post emergent left foot incision and drainage for a gas infection. He notes resolution of chills nausea and malaise today, he notes that he feels improved and that he slept well through the night. He denies any chest pain, calf pain, shortness of breath. He denies any pain to surgical site which is likely related to his diabetic neuropathy. Patient has no acute complaints from overnight stay. Objective Data Objective Data Vital Signs: Vital Signs Temp Pulse Resp BP Pulse Ox 97.0 F L 94 20 H 108/61 98 11/15/21 08:00 11/15/21 09:15 11/15/21 09:00 11/15/21 09:15 11/15/21 09:00 Oxygen Flow Rate (L/min) 2 Oxygen Delivery Method Room Air Weight: 138 kg Body Mass Index (BMI) 50.1 Intake & Output: Intake and Output for Last 24 Hours 11/13/21 11/14/21 11/15/21 23:59 23:59 23:59 Intake Total 3660 / 3660 3322.06 / 3322.06 Output Total 375 / 375 Balance 3660 / 3660 2947.06 / 2947.06 Lab / Micro Data Result Diagrams: 11/15/21 04:05 11/15/21 04:05 Labs: Laboratory Results - last 24 hr 11/14/21 15:11: WBC 11.7 H, RBC 4.89, Hgb 13.9, Hct 40.6, MCV 83.0, MCH 28.4, MCHC 34.2, RDW Std Deviation 41.0, RDW Coeff of Venita 13.5, Plt Count 149 L, MPV 10.3, Immature Gran % (Auto) 0.800, Neut % (Auto) 93.0 H, Lymph % (Auto) 2.7 L, [place] % (Auto) 3.3, Eos % (Auto) 0.0, Baso % (Auto) 0.2, Absolute Neuts (auto) 10.8 H, Absolute Lymphs (auto) 0.32 L, Nucleated RBC % 0, Differential Comment SCANNED 11/14/21 15:11: PT 15.1 H, INR 1.3, APTT 32.0 11/14/21 15:11: Sodium 130 L, Potassium 4.4, Chloride 98, Carbon Dioxide 23.0, Anion Gap 9, BUN 73 H, Creatinine 3.15 H, Estim Creat Clear Calc 33.53, Est GFR (MDRD) Af Amer 28 L, Est GFR (MDRD) Non-Af 23 L, BUN/Creatinine Ratio 23.2 H, Glucose 245 H, Calcium 9.7, Total Bilirubin 0.90, AST 32, ALT 37, Alkaline Phosphatase 85, Total Protein 7.6, Albumin 2.8 L, Globulin 4.8 H, Albumin/Globulin Ratio 0.6 L 11/14/21 15:11: Lactic Acid 2.9 H* 11/14/21 16:36: Urine Color Yellow, Urine Clarity Sl. Cloudy, Urine pH 5.0, Ur Specific [place] 1.015, Urine Protein 30 H, Urine Glucose (UA) 1000 H, Urine Ketones 5 H, Urine Occult Blood 10 H, Urine Nitrite Negative, Urine Bilirubin Negative, Urine Urobilinogen Normal, Ur Leukocyte Esterase Negative, Urine RBC 0-5 SEEN, Urine WBC 0-5 SEEN, Ur Squamous Epith Cells 0-5 SEEN, Urine Bacteria 0 SEEN, Hyaline Casts 0-5 SEEN, Fine Granular Casts 0-5 SEEN, Urine Mucus 0 SEEN 11/14/21 21:00: Lactic Acid 1.4 11/14/21 22:50: POC Glucose 192 H 11/15/21 01:23: POC Glucose 199 H 11/15/21 04:05: WBC 9.5, RBC 3.59 L, Hgb 10.2 L, Hct 30.9 L, MCV 86.1, MCH 28.4, MCHC 33.0, RDW Std Deviation 43.3, RDW Coeff of Venita 13.7, Plt Count 112 L, MPV 10.6, Immature Gran % (Auto) 2.200 H, Neut % (Auto) 80.3 H, Lymph % (Auto) 4.0 L , [place] % (Auto) 13.4 H, Eos % (Auto) 0.0, Baso % (Auto) 0.1, Absolute Neuts (auto) 7.6, Absolute Lymphs (auto) 0.38 L, Nucleated RBC % 0, Differential Comment SCANNED 11/15/21 04:05: Sodium 136, Potassium 4.3, Chloride 108 H, Carbon Dioxide 19.0 L , Anion Gap 9, BUN 71 H, Creatinine 2.64 H, Estim Creat Clear Calc 40.01, Est GFR (MDRD) Af Amer 35 L, Est GFR (MDRD) Non-Af 29 L, BUN/Creatinine Ratio 26.9 H , Glucose 179 H, Calcium 7.7 L, Total Bilirubin 0.50, AST 31, ALT 30, Alkaline Phosphatase 58, Total Protein 5.2 L, Albumin 1.8 L, Globulin 3.4, Albumin/Globulin Ratio 0.5 L 11/15/21 04:05: ESR 46 H 11/15/21 06:37: POC Glucose 204 H Micro: Microbiology 11/14/21 15:40 Blood Culture (Wb) - Anticubital Right Blood Culture - Pre liminary 11/14/21 18:47 Nasal Secretion SARS-CoV-2 Antigen (Rapid) - Final Radiography Diagnostic Testing: Radiology Impression Chest X-Ray 11/14/21 15:30 IMPRESSION: Nonacute portable x-ray examination of the chest. Electronically Signed: Luigi Santacruz MD ([place]) at 15:49 EDT , Foot X-Ray 11/14/21 15:30 IMPRESSION: 1. Significant deformity of the midfoot suggesting possibility of neuropathic arthropathy. However, given the degree of soft tissue swelling and localized air, infection is also in the differential diagnosis. 2. Old fractures of the second-fifth metatarsals with residual deformity. Electronically Signed: Luigi Santacruz MD ([place]) at 15:53 EDT , Tibia/Fibula X-Ray 11/14/21 17:10 IMPRESSION: No destructive bony process. Diffuse soft tissue swelling. Electronically Signed: Luigi Santacruz MD ([place]) at 17:23 EDT , Physical Exam Narrative Patient is alert oriented to person place and time. Patient nonambulatory at this time. Vascular: Dorsalis pedis and posterior tibial pulses palpable 2 out of 4 to bilateral lower extremity. Capillary fill time brisk to all digits bilaterally. Digital hair growth noted bilaterally. There is significant improvement to the edema and erythema noted to the left foot along with resolving warmth extending into the ankle. Neurologic: Light touch protective sensation absent to bilateral feet. No pain on physical examination. Dermatologic: Full-thickness ulceration noted to the plantar left medial longitudinal arch down to standing down to level of bone. A clean granular base with mild serosanguineous drainage. Periwound area to the site appears clean and intact at this time. Left dorsal midfoot incision down to the level of extensor tendon noted, there is moderate malodorous drainage from the site with some necrosis to the wound bed and periwound skin; However, the periincisional area demonstrates improved edema, erythema and warmth with resolved crepit us/fluctuance. Musculoskeletal: Charcot foot deformity noted bilaterally with collapse of lateral longitudinal arch creating a plantar convexity bilaterally. Muscular strength full to bilateral lower extremity compartments. Crepitus noted to the wound and periwound area on the left lower extremity. Assessment & Plan Assessment/Plan (1) 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 bone: (2) Gas gangrene: (3) Type 2 diabetes mellitus with diabetic polyneuropathy: QUALIFIERS: Diabetes mellitus termite treater helper insulin use: without termite treater helper use Qualified Code(s): E11.42 - Type 2 diabetes mellitus with diabetic polyneuropathy (4) Diabetic infection of left foot: PLAN: Patient examined and evaluated, all findings examined and reviewed with patient in detail. This discussion was held with patient's family as well. Was taken to the OR on 11/15/2021 for emergent decompression of an abscess and gas infection to his left foot. They will at that time was admitted to the ICU due to hypotension and tachycardia. Hypotension was improved with fluid resuscitation; however, addition of Levophed was required to maintain systemic perfusion. This morning fluids were discontinued, attempted discontinuation of Levophed performed, but was ultimately continued. Patient appears vitally stable at this time with resolved constitutional symptoms and resolution of his leukocytosis with improvement of his lactic acid as well. No function improved as well with blood volume expansion. Combined with significant improvement to the swelling redness and warmth to the left foot is suggestive of improvement in his left lower extremity infection. We will check on the patient daily to ensure no future surgical intervention required, if it appears that there is significant resolution of the infection we may consider repeat debridement with delayed primary closure on of this week. We will keep the patient n.p.o. overnight in case there is any clinical worsening upon examination tomorrow. The wound today looked significantly improved once the dressing was removed. The incision was flushed with copious amounts of normal sterile saline to the dorsal and plantar midfoot and redressed with Betadine wet-to-dry dry sterile dressing and Sal wrap for compression. I have recommended infectious disease consult as the patient has a severe life and limb threatening infection to his left lower extremity. Patient is understanding as well as the family that he may require multiple debridements to ensure infection clearance and prevent any limb loss. He understands that there is significant risk of limb loss in this case if we are not aggressive with treatment. Patient remain nonweightbearing to his left lower extremity. Check the patient's cultures daily but patient is currently receiving vancomycin and meropenem. Foot cultures pending. Cultures demonstrate gram-positive cocci in clusters in 2 out of 2 samples. ESR today was 46, CRP is pending. We will use CRP as a primary acute phase reactant as this is typically not affected by renal impairment and will give us a good indication of the systemic resolution to left foot infection. As mentioned previously, renal function has improved as well as patient's lactic acid which is now 1.4. We will continue to monitor the patient daily. (5) 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 muscle:
[2021-11-15] MEDS: Heparin Injection (Vial) 5,000 UNIT/ML VIAL 5000 UNIT SC ×2 (09:58→21:40)
[2021-11-15 10:26] LABS: Bedside Glucose 129 mg/dL (74-106)
--- NOTE | 2021-11-15 13:57 | PCM.PN.HOSP ---
Subjective Subjective Patient was seen in [place] in ICU today, he still requiring low-dose pressor agents, blood pressure is approximately 107 systolic at the time of this dictation. Patient is alert, he does not complain of any shortness of breath or chest discomfort. Patient is white blood cell count today was 9.5, creatinine today is improved to 2.64, BUN is 71. Patient's cultures showed a strep species in the blood and alpha hemolytic gram-positive organism in the wound. I suspect that this wound organism is probably also strep. I talked briefly with podiatry about his care today. Podiatry is requesting that infectious diseases see the patient, I will write for the consultation tomorrow. Objective Data Objective Data Vital Signs: Vital Signs Temp Pulse Resp BP Pulse Ox 97.7 F L 99 31 H 107/65 96 11/15/21 12:00 11/15/21 13:00 11/15/21 13:00 11/15/21 13:00 11/15/21 13:00 Oxygen Flow Rate (L/min) 2 Oxygen Delivery Method Room Air Weight: 138 kg Body Mass Index (BMI) 50.1 Intake & Output: Intake and Output for Last 24 Hours 11/13/21 11/14/21 11/15/21 23:59 23:59 23:59 Intake Total 3660 / 3660 3476.31 / 3476.31 Output Total 1075 / 1075 Balance 3660 / 3660 2401.31 / 2401.31 Lab / Micro Data Result Diagrams: 11/15/21 04:05 11/15/21 04:05 Labs: Laboratory Results - last 24 hr 11/14/21 15:11: WBC 11.7 H, RBC 4.89, Hgb 13.9, Hct 40.6, MCV 83.0, MCH 28.4, MCHC 34.2, RDW Std Deviation 41.0, RDW Coeff of [place] 13.5, Plt Count 149 L, MPV 10.3, Immature Gran % (Auto) 0.800, Neut % (Auto) 93.0 H, Lymph % (Auto) 2.7 L, [place] % (Auto) 3.3, Eos % (Auto) 0.0, Baso % (Auto) 0.2, Absolute Neuts (auto) 10.8 H, Absolute Lymphs (auto) 0.32 L, Nucleated RBC % 0, Differential Comment SCANNED 11/14/21 15:11: PT 15.1 H, INR 1.3, APTT 32.0 11/14/21 15:11: Sodium 130 L, Potassium 4.4, Chloride 98, Carbon Dioxide 23.0, Anion Gap 9, BUN 73 H, Creatinine 3.15 H, Estim Creat Clear Calc 33.53, Est GFR (MDRD) Af Amer 28 L, Est GFR (MDRD) Non-Af 23 L, BUN/Creatinine Ratio 23.2 H, Glucose 245 H, Calcium 9.7, Total Bilirubin 0.90, AST 32, ALT 37, Alkaline Phosphatase 85, Total Protein 7.6, Albumin 2.8 L, Globulin 4.8 H, Albumin/Globulin Ratio 0.6 L 11/14/21 15:11: Lactic Acid 2.9 H* 11/14/21 16:36: Urine Color Yellow, Urine Clarity Sl. Cloudy, Urine pH 5.0, Ur Specific [place] 1.015, Urine Protein 30 H, Urine Glucose (UA) 1000 H, Urine Ketones 5 H, Urine Occult Blood 10 H, Urine Nitrite Negative, Urine Bilirubin Negative, Urine Urobilinogen Normal, Ur Leukocyte Esterase Negative, Urine RBC 0-5 SEEN, Urine WBC 0-5 SEEN, Ur Squamous Epith Cells 0-5 SEEN, Urine Bacteria 0 SEEN, Hyaline Casts 0-5 SEEN, Fine Granular Casts 0-5 SEEN, Urine Mucus 0 SEEN 11/14/21 21:00: Lactic Acid 1.4 11/14/21 22:50: POC Glucose 192 H 11/15/21 01:23: POC Glucose 199 H 11/15/21 04:05: WBC 9.5, RBC 3.59 L, Hgb 10.2 L, Hct 30.9 L, MCV 86.1, MCH 28.4, MCHC 33.0, RDW Std Deviation 43.3, RDW Coeff of [place] 13.7, Plt Count 112 L, MPV 10.6, Immature Gran % (Auto) 2.200 H, Neut % (Auto) 80.3 H, Lymph % (Auto) 4.0 L, [place] % (Auto) 13.4 H, Eos % (Auto) 0.0, Baso % (Auto) 0.1, Absolute Neuts (auto) 7.6, Absolute Lymphs (auto) 0.38 L, Nucleated RBC % 0, Differential Comment SCANNED 11/15/21 04:05: Sodium 136, Potassium 4.3, Chloride 108 H, Carbon Dioxide 19.0 L, Anion Gap 9, BUN 71 H, Creatinine 2.64 H, Estim Creat Clear Calc 40.01, Est GFR (MDRD) Af Amer 35 L, Est GFR (MDRD) Non-Af 29 L, BUN/Creatinine Ratio 26.9 H, Glucose 179 H, Calcium 7.7 L, Total Bilirubin 0.50, AST 31, ALT 30, Alkaline Phosphatase 58, Total Protein 5.2 L, Albumin 1.8 L, Globulin 3.4, Albumin/Globulin Ratio 0.5 L 11/15/21 04:05: ESR 46 H 11/15/21 04:05: C-React Prot Ext Range 266.00 H 11/15/21 06:37: POC Glucose 204 H 11/15/21 10:22: POC Glucose 129 H Micro: Microbiology 11/14/21 Unknown Wound Abcess - Left Foot Gram Stain - Final 11/14/21 Unknown Wound Abcess - Left Foot Wound Culture - Preliminary Alpha hemolytic organism Gram positive organism 11/14/21 Unknown Tissue - Left Foot Gram Stain - Final 11/14/21 Unknown Tissue - Left Foot Wound Culture - Preliminary Alpha hemolytic organism Gram positive organism 11/14/21 Unknown Tissue - Left Foot Gram Stain - Final 11/14/21 Unknown Tissue - Left Foot Wound Culture - Preliminary Alpha hemolytic organism Gram positive organism 11/14/21 Unknown Bone - Left Foot Gram Stain - Final 11/14/21 Unknown Bone - Left Foot Wound Culture - Preliminary Alpha hemolytic organism Gram positive organism 11/14/21 15:40 Blood Culture (Wb) - Anticubital Right Bacteria Detection (PCR) - Final Strep not Strep pneumo 11/14/21 15:40 Blood Culture (Wb) - Anticubital Right Blood Culture - Preliminary 11/14/21 15:10 Blood Culture (Wb) - Anticubital Left Blood Culture - Preliminary 11/14/21 18:47 Nasal Secretion SARS-CoV-2 Antigen (Rapid) - Final Radiography Diagnostic Testing: Radiology Impression Chest X-Ray 11/14/21 15:30 IMPRESSION: Nonacute portable x-ray examination of the chest. Electronically Signed: Luigi Santacruz MD ([place]) at 15:49 EDT , Foot X-Ray 11/14/21 15:30 IMPRESSION: 1. Significant deformity of the midfoot suggesting possibility of neuropathic arthropathy. However, given the degree of soft tissue swelling and localized air, infection is also in the differential diagnosis. 2. Old fractures of the second-fifth metatarsals with residual deformity. Electronically Signed: Luigi Santacruz MD ([place]) at 15:53 EDT , Tibia/Fibula X-Ray 11/14/21 17:10 IMPRESSION: No destructive bony process. Diffuse soft tissue swelling. Electronically Signed: Luigi Santacruz MD ([place]) at 17:23 EDT , Physical Exam Const alert, oriented x3, no apparent distress and healthy appearing General Appearance: cooperative, well kempt and well developed Orientation / Consciousness: awake, oriented to person, oriented to place and oriented to time Nutritional Appearance: morbidly obese HEENT normocephalic, head/scalp atraumatic and moist oral mucous membranes Head and Scalp: normocephalic Eyes PERRL, EOMs intact bilaterally and conjunctivae normal Neck nuchal rigidity, supple, no JVD and thyroid normal General: trachea midline Resp normal respiratory effort, no retractions, no use of accessory muscles and clear to auscultation bilaterally Auscultation: Negative for rales, rhonchi or wheezes Cardio regular rate, regular rhythm, S1 normal heart sound, S2 normal heart sound, no murmurs, no rub and no gallops GI normal to inspection, nondistended, normoactive bowel sounds, soft to palpation, non-tender and non-distended Extremity no clubbing, cyanosis or edema Skin Skin Narrative: Patient's left foot is wrapped with surgical dressing and a splint is in place, this was not removed for examination of the patient's left foot. There is an open area over the patient's right lateral malleolus that is approximately 2 cm in diameter, this area is nondraining and the wound is dry. 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 Deep neuropathic wound of the left foot secondary to diabetic neuropathy-wound cultures positive for gram positive alphahemolytic organism, suspect strep-current antibiotics will be continued, infectious diseases will see the patient tomorrow #2 septic shock secondary to #1, blood culture has grown out strep, not strep pneumoniae-patient's fluids were discontinued by critical care, I have encouraged the patient to intake oral fluids. Patient still on a small amount of pressor, nursing will see if they can discontinue it this afternoon. #3 type 2 diabetes-on oral medications only-patient's blood sugars will be monitored and sliding scale insulin will be used #4 morbid obesity-complicates care and recovery #5 diabetic neuropathy of the feet-complicates care and recovery #6 acute kidney injury-patient's creatinine is improved, labs will be repeated tomorrow #7 hyponatremia-resolved, labs will be rechecked tomorrow Charges/Coding Visit Charges Inpatient E&M: 67825 [facility] Hosp L3
[2021-11-15] MEDS: CHLORHEXIDINE GLUC 2% CLOTH 1 EACH TOWELETTE TOPICAL (14:01)
[2021-11-15] MEDS: Acetaminophen 325 MG Tablet 650 MG PO (15:55)
[2021-11-15] MEDS: Juven (unflavored) Packet 1 PACKET PO (17:09)
[2021-11-15] MEDS: 0.9% Normal Saline 1,000 ML 75 ML IV (17:11)
[2021-11-15] MEDS: Acetaminophen 500 MG Tablet PO (17:52)
[2021-11-15 17:56] LABS: Bedside Glucose 148 mg/dL (74-106)
[2021-11-15 21:50] LABS: Bedside Glucose 194 mg/dL (74-106)
[2021-11-16] VITALS (25 sets, daily range): BP systolic 93–133; BP diastolic 48–77; PULSE 89–105; RESP 18–30; TEMP 37.1–39.4; O2SAT 90–98; BMI 42.2
[2021-11-16] MEDS: 0.9% Normal Saline 1,000 ML 100 ML IV (03:17)
[2021-11-16] MEDS: Acetaminophen 325 MG Tablet 650 MG PO ×3 (03:18→20:52)
[2021-11-16 04:50] LABS: Absolute Lymphocyte Count 0.46 X10^3/uL (0.83-4.51); Absolute Neutrophil Count 6.2 X10^3/uL (2.0-7.7); Basophil# 0.01 X10^3/uL; Basophil% 0.1 % (0-1); Eosinophil# 0.02 X10^3/uL; Eosinophils% 0.3 % (0-5); Hematocrit 29.7 % (40-54); Lymphocyte # 0.46 X10^3/ul (0.83-4.51); Lymphocyte % 6.2 % (19-41); Mean Corp Hgb Conc 33.7 g/dL (32-36); Mean Corpuscular Hgb 28.2 pg (27.0-32.0); Mean Corpuscular Volume 83.9 fL (80-94); Mean Platelet Vol. 10.3 fl (6.2-12.0); Monocyte# 0.66 X10^3/uL; Monocyte% 8.9 % (0-10); NRBC Flagged by Analyzer 0 % (0-5); Neutrophil # 6.22 X10^3/uL (2.7-7.7); POSITIVE DIFFERENTIAL YES; Platelet Count 147 K/mm3 (150-450); Red Blood Count 3.54 M/mm3 (4.6-6.2); White Blood Count 7.4 K/mm3 (4.4-11.0)
[2021-11-16 04:52] LABS: Differential Indicated SCAN CRITERIA MET
[2021-11-16 05:16] LABS: ALB/GLOB Ratio 0.5 RATIO (0.9-2.4); AST(SGOT) 61 U/L (15-37); Alanine Aminotransfer ALT/SGPT 47 U/L (16-61); Albumin, Serum 1.8 g/dL (3.2-5.0); Alkaline Phosphatase 66 U/L (45-117); Anion Gap 7 (5-15); BUN 48 mg/dL (7-18); Calcium,Total 7.6 mg/dL (8.5-10.1); Chloride 112 mmol/L (98-107); Creatinine, Serum 1.37 mg/dL (0.70-1.30); EST Glomerular Filtration Rate 61 mL/min (>60); Globulin 3.6 g/dL (2.2-4.2); Glucose 157 mg/dL (74-106); Protein, Total 5.4 g/dL (6.4-8.2); Sodium Level 140 mmol/L (136-145)
[2021-11-16 05:17] LABS: Est Glom Filt Rate - Afr Amer 74 mL/min (>60)
[2021-11-16 05:27] LABS: Differential Comment SCANNED
[2021-11-16] MEDS: CHLORHEXIDINE GLUC 2% CLOTH 1 EACH TOWELETTE TOPICAL (06:00)
--- NOTE | 2021-11-16 06:35 | PN.CC_ITS ---
Assessment & Plan Assessment/Plan (1) Septic shock: PLAN: RECOMMENDATIONS: 1. KVO IV fluids. 2. Await podiatry recommendations on repeat intervention 3. If no additional surgical intervention is required, diet can be advanced and potential transfer from ICU. 4. Continue broad-spectrum antimicrobials. ID has been consulted 5. Continue current pain control regimen. 6. Continue local wound care per podiatry recommendations. 7. Continue appropriate DVT prophylaxis. 8. Encourage incentive spirometer use while in bed. IMPRESSIONS: 1. Septic shock The patient presented to the hospital with sepsis due to diabetic foot ulcer/osteomyelitis with acute sepsis related organ dysfunction as evidenced by hypotension, acute kidney injury and lactic acidemia. The patient went on to develop fluid refractory hypotension, which necessitated the initiation of vasopressor support to maintain hemodynamic stability. Ultimately, the patient was taken to the OR and underwent I&D of the left plantar and dorsal foot wounds. Broad-spectrum antimicrobials were also initiated. Infectious disease has been consulted. If patient is not needing repeat intervention, possible transfer from the intensive care unit later today. Continue local wound care per podiatry recommendations. Await results of culture data. 2. Acute kidney injury Likely prerenal in etiology/ischemic ATN in the setting of #1. Creatinine is improving with volume expansion and blood pressure support. No pressor requirements at this time. Continue to monitor urine output. No current indication for renal replacement therapy. 3. Morbid obesity/hypertension/hyperlipidemia/diabetes mellitus Complicates care, management, recovery and prognosis. Continue to hold h ome antihypertensives. Continue sliding scale insulin coverage. Subjective Subjective Patient did okay overnight. Patient was febrile, but tolerated this well. Patient has been on pressors intermittently, but was last taken off at about 1:00 in the morning. Patient states pain is controlled. Objective Data Objective Data Vital Signs: Vital Signs Temp Pulse Resp BP Pulse Ox 38.5 C H 94 25 H 109/57 L 90 11/16/21 05:33 11/16/21 06:07 11/16/21 06:07 11/16/21 06:07 11/16/21 06:07 Oxygen Flow Rate (L/min) 2 Oxygen Delivery Method Room Air Weight: 137.4 kg Body Mass Index (BMI) 50.1 Intake & Output: Intake and Output for Last 24 Hours 11/14/21 11/15/21 11/16/21 23:59 23:59 23:59 Intake Total 3660 / 3660 6756.63 / 6757.11 1250.01 / 1250.01 Output Total 3475 / 3475 2200 / 2200 Balance 3660 / 3660 3281.63 / 3282.11 -949.99 / -949.99 Lab / Micro Data Result Diagrams: 11/16/21 04:30 11/16/21 04:30 Labs: Laboratory Results - last 24 hr 11/15/21 04:05: ESR 46 H 11/15/21 04:05: C-React Prot Ext Range 266.00 H 11/15/21 06:37: POC Glucose 204 H 11/15/21 10:22: POC Glucose 129 H 11/15/21 17:47: POC Glucose 148 H 11/15/21 21:38: POC Glucose 194 H 11/16/21 04:30: WBC 7.4, RBC 3.54 L, Hgb 10.0 L, Hct 29.7 L, MCV 83.9, MCH 28.2, MCHC 33.7, RDW Std Deviation 43.0, RDW Coeff of [place] 14.0, Plt Count 147 L, MPV 10.3, Immature Gran % (Auto) 0.500, Neut % (Auto) 84.0 H, Lymph % (Auto) 6.2 L, [place] % (Auto) 8.9, Eos % (Auto) 0.3, Baso % (Auto) 0.1, Absolute Neuts (auto) 6.2, Absolute Lymphs (auto) 0.46 L, Nucleated RBC % 0, Differential Comment SCANNED 11/16/21 04:30: Sodium 140, Potassium 4.0, Chloride 112 H, Carbon Dioxide 21.0, Anion Gap 7, BUN 48 H, Creatinine 1.37 H, Estim Creat Clear Calc 77.10, Est GFR (MDRD) Af Amer 74, Est GFR (MDRD) Non-Af 61, BUN/Creatinine Ratio 35.0 H, Glucose 157 H, Calcium 7.6 L, Total Bilirubin 0.60, AST 61 H, ALT 47, Alkaline Phosphatase 66, Total Protein 5.4 L, Albumin 1.8 L, Globulin 3.6, Albumin/Globulin Ratio 0.5 L Micro: Microbiology 11/14/21 Unknown Wound Abcess - Left Foot Gram Stain - Final 11/14/21 Unknown Wound Abcess - Left Foot Wound Culture - Preliminary Alpha hemolytic organism Gram positive organism 11/14/21 Unknown Tissue - Left Foot Gram Stain - Final 11/14/21 Unknown Tissue - Left Foot Wound Culture - Preliminary Alpha hemolytic organism Gram positive organism 11/14/21 Unknown Tissue - Left Foot Gram Stain - Final 11/14/21 Unknown Tissue - Left Foot Wound Culture - Preliminary Alpha hemolytic organism Gram positive organism 11/14/21 Unknown Bone - Left Foot Gram Stain - Final 11/14/21 Unknown Bone - Left Foot Wound Culture - Preliminary Alpha hemolytic organism Gram positive organism 11/14/21 15:40 Blood Culture (Wb) - Anticubital Right Bacteria Detection (PCR) - Final Strep not Strep pneumo 11/14/21 15:40 Blood Culture (Wb) - Anticubital Right Blood Culture - Preliminary 11/14/21 15:10 Blood Culture (Wb) - Anticubital Left Blood Culture - Preliminary 11/14/21 18:47 Nasal Secretion SARS-CoV-2 Antigen (Rapid) - Final Physical Exam Const alert, oriented x3 and no apparent distress General Appearance: cooperative and diaphoretic Nutritional Appearance: morbidly obese HEENT normocephalic and head/scalp atraumatic Eyes PERRL, EOMs intact bilaterally and conjunctivae normal Neck supple General: trachea midline Chest inspection of chest normal Resp normal respiratory effort and clear to auscultation bilaterally Effort and Inspection: symmetric chest movement Auscultation: Negative for rales, rhonchi or wheezes Cardio regular rate and regular rhythm Heart Sounds: Negative for gallop, murmur or rub GI normal to inspection, nondistended, normoactive bowel sounds Extremity Extremity Narrative: Wrapped left lower extremity. Neuro oriented x3, CN's II-XII intact bilaterally and moves all extremities Psych cooperative and affect normal Charges/Coding Visit Charges Inpatient E&M: 82049 Subs Hosp L3
--- NOTE | 2021-11-16 07:53 | MRI_ITS ---
STUDY: MRI LEFT MIDFOOT REASON FOR EXAM: Male, 41 years old. left foot abscess, delineate infection TECHNIQUE: Standardized fat and water weighted pulse sequences were obtained in all 3 orthogonal planes. COMPARISON: Left foot x-ray dated NOVEMBER 14, 2021. FINDINGS: An open soft tissue wound with ulceration and cellulitis is present on the plantar aspect and lateral side of foot measuring 1.37 cm in diameter. A 1.46 cm abscess is present in the subcutaneous fat at the anterior aspect of the open plantar ulcer/wound. Infectious phlegmon is material is present in the soft tissue tract that extends to the plantar surface and anterior aspect of the cuboid bone which is mildly eroded due to osteomyelitis. Mild to moderate associated infectious/inflammatory edema is present throughout the remaining aspects of the cuboid bone. No other areas of active osteomyelitis are present. Numerous findings associated with chronic Charcot arthropathy of the foot and ankle including cortical and intramedullary erosions and cysts, reactive edema, joint space narrowing and chronic periosteal changes. Old fracture deformities of the second through fourth metatarsal bones reidentified. Mild to moderate degenerative arthrosis of the tibiotalar and talocalcaneal articulations noted, with a small joint effusion. A large skin and subcutaneous defect/wound is present over the dorsum of the midfoot measuring 5.48 x 3.60 cm in diameter. No abscess is seen in this region. There is also no evidence of osteomyelitis of the underlying dorsal surface of the midfoot bony structures. The major tendons are intact. Mild to moderate flexor tenosynovitis is present. Chronic neuropathic atrophy and edematous like signal throughout the muscles. Superimposed diffuse myositis due to infectious inflammation also noted. IMPRESSION: Osteomyelitis of the anterior and plantar aspect of the cuboid bone associated with the plantar ulcer/open soft tissue wound 1. An open soft tissue wound with ulceration and cellulitis is present on the plantar aspect and lateral side of foot measuring 1.37 cm in diameter. Infectious phlegmon is material is present in the soft tissue tract that extends to the plantar surface and anterior aspect of the cuboid bone which is mildly eroded due to osteomyelitis. 2. A 1.46 cm abscess is present in the subcutaneous fat at the anterior aspect of the open plantar ulcer/wound. 3. Large soft tissue defect/wound on the dorsum of the midfoot, but without an abscess or underlying osteomyelitis on the dorsal surface of the bones. Electronically Signed: Dionicio Craven MD at 13:27 EDT , MRI/Lower Ext/No Jt/w/o
--- NOTE | 2021-11-16 08:45 | WOUNDNOTE ---
wound photo: left plantar foot
--- NOTE | 2021-11-16 08:45 | WOUNDNOTE ---
wound photo: left dorsal foot
--- NOTE | 2021-11-16 08:46 | WOUNDNOTE ---
wound photo: right lateral ankle
--- NOTE | 2021-11-16 09:29 | CASEMGMT ---
Addendum entered by Eliceo Topete 11/16/21 09:40: Pt has 4 steps to enter home. Pt uses [facility] for long-term medications. Original Note: RN CM SOCIAL SERVICES DIRECTOR CM to room to meet with patient for initial transition planning/care coordination assessment. BUDDY DAVIS introduced self and role at [facility]. Pt voices understanding and consents to assessment at this time. Pt resting in bed in no distress at this time. Pt is A/O at this time and answers all questions appropriately. Care providers, pharmacy, and demographics verified/updated at this time. PCP: Dr Villagomez Specialists: Dr Dex Kyle--podiatry in [place] Preferred Pharmacy: [facility] Retail Insurance: [place] Prescription Benefit: Yes Living Will/HPOA: States does not have LW or HCPOA . Interested in more information and would like to meet w/SW while @ [facility] to complete. LNOK: Mother, Katie Varner. No siblings. Living Arrangements: Lives w/mom and step-dad in 2-story home. Bedroom and bathroom on 2nd floor. Bathroom also on main floor and pt could sleep on 1st floor, if needed. Pt states he has done this in the past. Independent prior to hospitalization. Transportation: Pt states drives self. Mom or step-dad will take him home @ d/c. DME: States has the following DME: functioning glucometer w/supplies, [place] boot for right foot, shower chair, cane. Also has walker and W/C available, if needed. Pt states no need for further DME at this time. HHC/SNF: No hx of either. Pt states, if IV atb needed @ discharge he would be willing to learn to administer @ home. Pt made aware, if IV atb's are needed, BUDDY DAVIS will make arrangements for HHC and delivery of med/supplies by infusion co. Pt wishes to return home and states has no concerns with going home at time of discharge. CM to follow for possible need of IV atb's and any further discharge planning/needs. Pt voices no further concerns/needs at this time. Advised pt to ask for CM if any further questions/concerns/needs arise. Voices understanding. PLAN: Home w/possible need of HHC for IV atb's and therapy. Pt states, even if IV atb's are not needed @ d/c, he may be interested in additional therapy, depending on weight-bearing status and ability. Diana HILLN RN CM
[2021-11-16] MEDS: Heparin Injection (Vial) 5,000 UNIT/ML VIAL 5000 UNIT SC ×2 (10:08→20:53)
[2021-11-16] MEDS: Juven (unflavored) Packet 1 PACKET PO ×2 (10:09→18:39)
--- NOTE | 2021-11-16 10:23 | PCM.PROGNOTE ---
Subjective Subjective This 41 year old male seen bedside, feeling well today. Denies constitutional symptoms. Denies pain. No changes overnight. Objective Data Objective Data Vital Signs: Vital Signs Temp Pulse Resp BP Pulse Ox 98.8 F 96 19 H 111/63 98 11/16/21 10:05 11/16/21 10:05 11/16/21 10:05 11/16/21 10:05 11/16/21 10:05 Oxygen Flow Rate (L/min) 2 Oxygen Delivery Method Room Air Weight: 137.4 kg Body Mass Index (BMI) 50.1 Intake & Output: Intake and Output for Last 24 Hours 11/14/21 11/15/21 11/16/21 23:59 23:59 23:59 Intake Total 3660 / 3660 6756.63 / 6757.11 1250.01 / 1250.01 Output Total 3475 / 3475 2200 / 2200 Balance 3660 / 3660 3281.63 / 3282.11 -949.99 / -949.99 Lab / Micro Data Result Diagrams: 11/16/21 04:30 11/16/21 04:30 Labs: Laboratory Results - last 24 hr 11/15/21 10:22: POC Glucose 129 H 11/15/21 17:47: POC Glucose 148 H 11/15/21 21:38: POC Glucose 194 H 11/16/21 04:30: WBC 7.4, RBC 3.54 L, Hgb 10.0 L, Hct 29.7 L, MCV 83.9, MCH 28.2, MCHC 33.7, RDW Std Deviation 43.0, RDW Coeff of Venita 14.0, Plt Count 147 L, MPV 10.3, Immature Gran % (Auto) 0.500, Neut % (Auto) 84.0 H, Lymph % (Auto) 6.2 L, [place] % (Auto) 8.9, Eos % (Auto) 0.3, Baso % (Auto) 0.1, Absolute Neuts (auto) 6.2, Absolute Lymphs (auto) 0.46 L, Nucleated RBC % 0, Differential Comment SCANNED 11/16/21 04:30: Sodium 140, Potassium 4.0, Chloride 112 H, Carbon Dioxide 21.0, Anion Gap 7, BUN 48 H, Creatinine 1.37 H, Estim Creat Clear Calc 77.10, Est GFR (MDRD) Af Amer 74, Est GFR (MDRD) Non-Af 61, BUN/Creatinine Ratio 35.0 H, Glucose 157 H, Calcium 7.6 L, Total Bilirubin 0.60, AST 61 H, ALT 47, Alkaline Phosphatase 66, Total Protein 5.4 L, Albumin 1.8 L, Globulin 3.6, Albumin/Globulin Ratio 0.5 L 11/16/21 04:30: C-React Prot Ext Range 239.00 H Micro: Microbiology 11/14/21 Unknown Bone - Left Foot Gram Stain - Final 11/14/21 Unknown Bone - Left Foot Wound Culture - Preliminary Alpha hemolytic organism GPC Poss Enterococcus sp Gram positive organism 11/14/21 16:36 Urine, Clean Catch Urine Culture - Final Mixed Gram Positive Organisms 11/14/21 15:10 Blood Culture (Wb) - Anticubital Left Blood Culture - Preliminary 11/14/21 15:40 Blood Culture (Wb) - Anticubital Right Bacteria Detection (PCR) - Final Strep not Strep pneumo 11/14/21 15:40 Blood Culture (Wb) - Anticubital Right Blood Culture - Preliminary Alpha Hemolytic Streptococcus 11/14/21 Unknown Wound Abcess - Left Foot Gram Stain - Final 11/14/21 Unknown Wound Abcess - Left Foot Wound Culture - Preliminary Alpha hemolytic organism Gram positive organism 11/14/21 Unknown Tissue - Left Foot Gram Stain - Final 11/14/21 Unknown Tissue - Left Foot Wound Culture - Preliminary Alpha hemolytic organism Gram positive organism 11/14/21 Unknown Tissue - Left Foot Gram Stain - Final 11/14/21 Unknown Tissue - Left Foot Wound Culture - Preliminary Alpha hemolytic organism Gram positive organism 11/14/21 18:47 Nasal Secretion SARS-CoV-2 Antigen (Rapid) - Final Physical Exam Narrative Patient is alert oriented to person place and time. Patient nonambulatory at this time. Vascular: Dorsalis pedis and posterior tibial pulses palpable 2 out of 4 to bilateral lower extremity. Capillary fill time brisk to all digits bilaterally. Digital hair growth noted bilaterally. There is significant improvement to the edema and erythema noted to the left foot along with resolving warmth extending into the ankle. Neurologic: Light touch protective sensation absent to bilateral feet. No pain on physical examination. Dermatologic: Full-thickness ulceration noted to the plantar left medial longitudinal arch down to standing down to level of bone. A clean granular base with mild serosanguineous drainage. Periwound area to the site appears clean and intact at this time. Left dorsal midfoot incision down to the level of extensor tendon noted, there is moderate malodorous drainage from the site with increase necrosis and increased purulent drainage w/ malodor. Musculoskeletal: Charcot foot deformity noted bilaterally with collapse of lateral longitudinal arch creating a plantar convexity bilaterally. Muscular strength full to bilateral lower extremity compartments. Crepitus resolved to the wound and periwound area on the left lower extremity. Assessment & Plan Assessment/Plan (1) 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 bone: (2) Gas gangrene: (3) Type 2 diabetes mellitus with diabetic polyneuropathy: QUALIFIERS: Diabetes mellitus group home insulin use: without group home use Qualified Code(s): E11.42 - Type 2 diabetes mellitus with diabetic polyneuropathy (4) Diabetic infection of left foot: PLAN: Patient examined and evaluated, all findings examined and reviewed with patient in detail. This discussion was held with patient's family as well. Was taken to the OR on 11/15/2021 for emergent decompression of an abscess and gas infection to his left foot. Patient improved systemically since debridement; however, there is diffuse malodorous drainage with some increased necrosis to dorsal midfoot superficial and deep tissue. Due to this I have ordered MRI to better understand extent of infection and will plan for re-debridement in the OR on Tuesday11/17/2021 at 1pm. I believe there is diffuse osteomyelitis affecting a large portion of the midfoot and hindfoot bones, depending on patients response to debridement/antibiotics, patient may require BKA for definitive infection clearance down the line. Infectious disease consulted; awaiting recommendations. Patient growing alpha-hemolytic strep from foot and blood cultures. Patient vitally stable at this time, he is being transferred to PCU. WBC improved 11.70->9.4 ESR 46 CRP 266->238. Incisional sites were flushed with copious amounts of normal sterile saline and dressed with Dakin's Solution, DSD and PRABHAKAR for compression. He will remain NWB to left foot. Patient can eat today, restart NPO after midnight tonight. I will see patient prior to procedure tomorrow which is scheduled for 1pm at this time. (5) 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 muscle:
[2021-11-16 10:26] LABS: Bedside Glucose 131 mg/dL (74-106)
[2021-11-16] MEDS: DAKIN'S SOL HALF STRENGTH (=0.25%) 1 APPLIC TOPICAL (13:01)
--- NOTE | 2021-11-16 13:56 | CASEMGMT ---
Addendum entered by Lamar [place] 11/16/21 14:01: Patient named his mom Katie as his Healthcare POA and his step dad Grayson as his first alternate. Lamar DAVIS Original Note: CINDY was informed patient would like to do a Healthcare Power of Stone Dresser (HCPOA.) SW met with patient, introduced self and role at [facility]. Patient's mom and step dad were present. Patient was in agreement with completing documents. CINDY completed HCPOA with patient. Copies were made and given to patient along with original. CINDY also placed a copy in patient's chart. Lamar DAVIS
--- NOTE | 2021-11-16 14:35 | PCM.CONS.GEN ---
Assessment & Plan Assessment/Plan (1) Gas gangrene: PLAN: GEOFF improved, out of icu. Now s/p OR 11/14, surg cx with enterococcus, GPR, and strep. Bcx with strep-like. Still with abscess seen on MRI. Will cont vanc/butch, add clinda iv given gas gangrene and necrosis seen in OR. Will follow, thank you, d/w nursing. Pt is fully covid vaccinated. (2) Type 2 diabetes mellitus with diabetic polyneuropathy: QUALIFIERS: Diabetes mellitus nursing home insulin use: without adjunct faculty for medical terminology use Qualified Code(s): E11.42 - Type 2 diabetes mellitus with diabetic polyneuropathy (3) Acute kidney injury: (4) Sepsis: QUALIFIERS: Sepsis type: sepsis due to unspecified organism Sepsis acute organ dysfunction status: unspecified Qualified Code(s): A41.9 - Sepsis, unspecified organism HPI Consult Data Date of Consult: 11/16/21 HPI Narrative HPI Narrative: SNEHA WEI, is a 41 M with DM neuropathy, presented with 1-2 days of fever and chills at home. Reports progressive L foot pain/redness/swelling/drainage since September. Initially started as blister on dorsum. Called senior cyber intelligence analyst, given po abx 5 days prior to admit without any improvement. Admitted here on vanc/butch, taken to OR for I&D, going back tomorrow. Covid vaccine x3. Reports rash with PCN as a child, has not taken other beta lactams. Full ROS performed and neg except as noted above. [facility] Medical History Diabetes Home Medications ciprofloxacin HCl BID 11/14/21 [History Last Taken 11/14/21] empagliflozin [Jardiance] mg DAILY 11/14/21 [History Last Taken 11/14/21] lisinopril DAILY 11/14/21 [History Last Taken 11/14/21] metformin mg BID 11/14/21 [History Last Taken 11/14/21] pravastatin QHS 11/14/21 [History Last Taken 11/13/21] Allergy/AdvReac Type Severity Reaction Status Date / Time Penicillins [PCN] Allergy Rash Verified 11/14/21 14:41 Social History Smoking Status: Never smoker Physical Exam Const alert, oriented x3 and no apparent distress General Appearance: cooperative Exam Limitations: no limitations HEENT normocephalic and head/scalp atraumatic Eyes PERRL and EOMs intact bilaterally Neck supple and No nodes Resp normal air movement and clear to auscultation bilaterally Cardio regular rate and regular rhythm GI soft to palpation, non-tender and non-distended Extremity General Extremity: edema Skin Skin Narrative: reviewed photos Neuro CN's II-XII intact bilaterally Lab / Micro Data Result Diagrams: 11/16/21 04:30 11/16/21 04:30 Labs: Laboratory Results - last 24 hr 11/15/21 17:47: POC Glucose 148 H 11/15/21 21:38: POC Glucose 194 H 11/16/21 04:30: WBC 7.4, RBC 3.54 L, Hgb 10.0 L, Hct 29.7 L, MCV 83.9, MCH 28.2, MCHC 33.7, RDW Std Deviation 43.0, RDW Coeff of Venita 14.0, Plt Count 147 L, MPV 10.3, Immature Gran % (Auto) 0.500, Neut % (Auto) 84.0 H, Lymph % (Auto) 6.2 L, [place] % (Auto) 8.9, Eos % (Auto) 0.3, Baso % (Auto) 0.1, Absolute Neuts (auto) 6.2, Absolute Lymphs (auto) 0.46 L, Nucleated RBC % 0, Differential Comment SCANNED 11/16/21 04:30: Sodium 140, Potassium 4.0, Chloride 112 H, Carbon Dioxide 21.0, Anion Gap 7, BUN 48 H, Creatinine 1.37 H, Estim Creat Clear Calc 77.10, Est GFR (MDRD) Af Amer 74, Est GFR (MDRD) Non-Af 61, BUN/Creatinine Ratio 35.0 H, Glucose 157 H, Calcium 7.6 L, Total Bilirubin 0.60, AST 61 H, ALT 47, Alkaline Phosphatase 66, Total Protein 5.4 L, Albumin 1.8 L, Globulin 3.6, Albumin/Globulin Ratio 0.5 L 11/16/21 04:30: C-React Prot Ext Range 239.00 H 11/16/21 10:14: POC Glucose 131 H Micro: Microbiology 11/14/21 Unknown Wound Abcess - Left Foot Gram Stain - Final 11/14/21 Unknown Wound Abcess - Left Foot Wound Culture - Preliminary Alpha Hemolytic Streptococcus GPC Poss Enterococcus sp 11/14/21 Unknown Tissue - Left Foot Gram Stain - Final 11/14/21 Unknown Tissue - Left Foot Wound Culture - Preliminary Alpha Hemolytic Streptococcus GPC Poss Enterococcus sp Gram positive vance 11/14/21 Unknown Tissue - Left Foot Gram Stain - Final 11/14/21 Unknown Tissue - Left Foot Wound Culture - Preliminary Alpha Hemolytic Streptococcus Gram Positive Cocci Gram positive vance 11/14/21 Unknown Bone - Left Foot Gram Stain - Final 11/14/21 Unknown Bone - Left Foot Wound Culture - Preliminary Alpha Hemolytic Streptococcus GPC Poss Enterococcus sp Gram positive vance 11/14/21 16:36 Urine, Clean Catch Urine Culture - Final Mixed Gram Positive Organisms 11/14/21 15:10 Blood Culture (Wb) - Anticubital Left Blood Culture - Preliminary 11/14/21 15:40 Blood Culture (Wb) - Anticubital Right Bacteria Detection (PCR) - Final Strep not Strep pneumo 11/14/21 15:40 Blood Culture (Wb) - Anticubital Right Blood Culture - Preliminary Alpha Hemolytic Streptococcus Radiology Impression Lower Extremity MRI 11/16/21 07:53
--- NOTE | 2021-11-16 15:34 | PCM.PN.HOSP ---
Subjective Subjective Patient was seen and examined today, his blood pressure remained stable at this time, his creatinine has improved. I placed the patient on some ibuprofen today for back pain at a low dose, I believe his underlying kidney function is normal. Patient was taken back to surgery today by podiatry, infectious diseases saw the patient in consultation today and adjusted antibiotics. Patient has no complaints of any fevers or chills to this examiner today. Objective Data Objective Data Vital Signs: Vital Signs Temp Pulse Resp BP Pulse Ox 98.9 F 105 H 18 133/77 H 94 11/16/21 12:47 11/16/21 12:47 11/16/21 12:47 11/16/21 12:47 11/16/21 12:47 Oxygen Flow Rate (L/min) 2 Oxygen Delivery Method Room Air Weight: 137.4 kg Body Mass Index (BMI) 50.1 Intake & Output: Intake and Output for Last 24 Hours 11/14/21 11/15/21 11/16/21 23:59 23:59 23:59 Intake Total 3660 / 3660 6756.63 / 6757.11 2385.01 / 2385.01 Output Total 3475 / 3475 3050 / 3050 Balance 3660 / 3660 3281.63 / 3282.11 -664.99 / -664.99 Lab / Micro Data Result Diagrams: 11/16/21 04:30 11/16/21 04:30 Labs: Laboratory Results - last 24 hr 11/15/21 17:47: POC Glucose 148 H 11/15/21 21:38: POC Glucose 194 H 11/16/21 04:30: WBC 7.4, RBC 3.54 L, Hgb 10.0 L, Hct 29.7 L, MCV 83.9, MCH 28.2, MCHC 33.7, RDW Std Deviation 43.0, RDW Coeff of Venita 14.0, Plt Count 147 L, MPV 10.3, Immature Gran % (Auto) 0.500, Neut % (Auto) 84.0 H, Lymph % (Auto) 6.2 L, [place] % (Auto) 8.9, Eos % (Auto) 0.3, Baso % (Auto) 0.1, Absolute Neuts (auto) 6.2, Absolute Lymphs (auto) 0.46 L, Nucleated RBC % 0, Differential Comment SCANNED 11/16/21 04:30: Sodium 140, Potassium 4.0, Chloride 112 H, Carbon Dioxide 21.0, Anion Gap 7, BUN 48 H, Creatinine 1.37 H, Estim Creat Clear Calc 77.10, Est GFR (MDRD) Af Amer 74, Est GFR (MDRD) Non-Af 61, BUN/Creatinine Ratio 35.0 H, Glucose 157 H, Calcium 7.6 L, Total Bilirubin 0.60, AST 61 H, ALT 47, Alkaline Phosphatase 66, Total Protein 5.4 L, Albumin 1.8 L, Globulin 3.6, Albumin/Globulin Ratio 0.5 L 11/16/21 04:30: C-React Prot Ext Range 239.00 H 11/16/21 10:14: POC Glucose 131 H Micro: Microbiology 11/14/21 Unknown Wound Abcess - Left Foot Gram Stain - Final 11/14/21 Unknown Wound Abcess - Left Foot Wound Culture - Preliminary Alpha Hemolytic Streptococcus GPC Poss Enterococcus sp 11/14/21 Unknown Tissue - Left Foot Gram Stain - Final 11/14/21 Unknown Tissue - Left Foot Wound Culture - Preliminary Alpha Hemolytic Streptococcus GPC Poss Enterococcus sp Gram positive vance 11/14/21 Unknown Tissue - Left Foot Gram Stain - Final 11/14/21 Unknown Tissue - Left Foot Wound Culture - Preliminary Alpha Hemolytic Streptococcus Gram Positive Cocci Gram positive vance 11/14/21 Unknown Bone - Left Foot Gram Stain - Final 11/14/21 Unknown Bone - Left Foot Wound Culture - Preliminary Alpha Hemolytic Streptococcus GPC Poss Enterococcus sp Gram positive vance 11/14/21 16:36 Urine, Clean Catch Urine Culture - Final Mixed Gram Positive Organisms 11/14/21 15:10 Blood Culture (Wb) - Anticubital Left Blood Culture - Preliminary 11/14/21 15:40 Blood Culture (Wb) - Anticubital Right Bacteria Detection (PCR) - Final Strep not Strep pneumo 11/14/21 15:40 Blood Culture (Wb) - Anticubital Right Blood Culture - Preliminary Alpha Hemolytic Streptococcus 11/14/21 18:47 Nasal Secretion SARS-CoV-2 Antigen (Rapid) - Final Radiography Diagnostic Testing: Radiology Impression Lower Extremity MRI 11/16/21 07:53 Physical Exam Narrative alert, oriented x3, no apparent distress and healthy appearing General Appearance: cooperative, well kempt and well developed Orientation / Consciousness: awake, oriented to person, oriented to place and oriented to time Nutritional Appearance: morbidly obese HEENT normocephalic, head/scalp atraumatic and moist oral mucous membranes Head and Scalp: normocephalic Eyes PERRL, EOMs intact bilaterally and conjunctivae normal Neck nuchal rigidity, supple, no JVD and thyroid normal General: trachea midline Resp normal respiratory effort, no retractions, no use of accessory muscles and clear to auscultation bilaterally Auscultation: Negative for rales, rhonchi or wheezes Cardio regular rate, regular rhythm, S1 normal heart sound, S2 normal heart sound, no murmurs, no rub and no gallops GI normal to inspection, nondistended, normoactive bowel sounds, soft to palpation, non-tender and non-distended Extremity no clubbing, cyanosis or edema Skin Skin Narrative: Patient's left foot is wrapped with surgical dressing and a splint is in place, this was not removed for examination of the patient's left foot. There is an open area over the patient's right lateral malleolus that is approximately 2 cm in diameter, this area is nondraining and the wound is dry. General Skin Exam: no breakdown Neuro oriented x3, CN's II-XII intact bilaterally, no focal motor deficits and no sensory deficits noted Sensorium / Orientation: awake and alert Speech: speech normal Psych affect normal Assessment & Plan Assessment/Plan (1) Septic shock: (2) Type 2 diabetes mellitus with diabetic polyneuropathy: QUALIFIERS: Diabetes mellitus nursing home insulin use: without rodent exterminator use Qualified Code(s): E11.42 - Type 2 diabetes mellitus with diabetic polyneuropathy PLAN: 1. Deep neuropathic wound of the left foot secondary to diabetic neuropathy-wound cultures positive for gram positive alphahemolytic organism, suspect strep-current antibiotics will be continued, infectious diseases is participating in his care, clindamycin was added to his present antibiotic coverage #2 septic shock secondary to #1, resolved, blood culture has grown out alpha hemolytic strep, patient's wound cultures have grown out alpha hemolytic strep and Enterococcus as well as a gram-positive vance. Patient will be undergoing surgery today to clean out the wound further, ultimately unfortunately the patient may need a left lower extremity amputation below the knee if the current surgery does not improve his medical condition. #3 type 2 diabetes-on oral medications only-patient's blood sugars will be monitored and sliding scale insulin will be used #4 morbid obesity-complicates care and recovery #5 diabetic neuropathy of the feet-complicates care and recovery #6 acute kidney injury-patient's creatinine is improved, labs will be repeated tomorrow #7 hyponatremia-resolved, labs will be rechecked tomorrow Charges/Coding Visit Charges Inpatient E&M: 39803 Subs Hosp L3
[2021-11-16] MEDS: Insulin Lispro 100 UNIT/ML INSULN.PEN SC ×2 (16:33→20:51)
[2021-11-16] MEDS: 0.9% Normal Saline 1,000 ML 15 ML IV (16:34)
[2021-11-16 16:41] LABS: Bedside Glucose 206 mg/dL (74-106)
[2021-11-16 18:12] LABS: Vancomycin, Trough Level 7.8 ug/mL (5.0-15.0)
--- NOTE | 2021-11-16 20:25 | PCM.RX.CS ---
Consult Pharmacy has been consulted to manage selected antiobiotic: Vancomycin Type of Consult: New start Prior Doses of Antibiotics Received/Current Regimen: Medications Vancomycin HCl 1,500 mg/ (Sodium Chloride) 530 mls @ 250 mls/hr IV Q24H MAGDA Last Admin: 11/16/21 17:42 Dose: 250 mls/hr Documented by: Labs: Sodium 140 mmol/L (136-145) 11/16/21 04:30 Potassium 4.0 mmol/L (3.5-5.1) 11/16/21 04:30 Chloride 112 mmol/L (98-107) H 11/16/21 04:30 Carbon Dioxide 21.0 mmol/L (21.0-32.0) 11/16/21 04:30 Anion Gap 7 (5-15) 11/16/21 04:30 BUN 48 mg/dL (7-18) H 11/16/21 04:30 Creatinine 1.37 mg/dL (0.70-1.30) H 11/16/21 04:30 Est GFR (MDRD) Af Amer 74 mL/min (>60) 11/16/21 04:30 Est GFR (MDRD) Non-Af 61 mL/min (>60) 11/16/21 04:30 BUN/Creatinine Ratio 35.0 RATIO (10-20) H 11/16/21 04:30 Glucose 157 mg/dL (74-106) H 11/16/21 04:30 Vancomycin Trough 7.8 ug/mL (5.0-15.0) 11/16/21 17:00 Microbiology: Microbiology 11/14/21 Unknown Wound Abcess - Left Foot Gram Stain - Final 11/14/21 Unknown Wound Abcess - Left Foot Wound Culture - Preliminary Alpha Hemolytic Streptococcus GPC Poss Enterococcus sp 11/14/21 Unknown Tissue - Left Foot Gram Stain - Final 11/14/21 Unknown Tissue - Left Foot Wound Culture - Preliminary Alpha Hemolytic Streptococcus GPC Poss Enterococcus sp Gram positive vance 11/14/21 Unknown Tissue - Left Foot Gram Stain - Final 11/14/21 Unknown Tissue - Left Foot Wound Culture - Preliminary Alpha Hemolytic Streptococcus Gram Positive Cocci Gram positive vance 11/14/21 Unknown Bone - Left Foot Gram Stain - Final 11/14/21 Unknown Bone - Left Foot Wound Culture - Preliminary Alpha Hemolytic Streptococcus GPC Poss Enterococcus sp Gram positive vance 11/14/21 16:36 Urine, Clean Catch Urine Culture - Final Mixed Gram Positive Organisms 11/14/21 15:10 Blood Culture (Wb) - Anticubital Left Blood Culture - Preliminary 11/14/21 15:40 Blood Culture (Wb) - Anticubital Right Bacteria Detection (PCR) - Final Strep not Strep pneumo 11/14/21 15:40 Blood Culture (Wb) - Anticubital Right Blood Culture - Preliminary Alpha Hemolytic Streptococcus 11/14/21 18:47 Nasal Secretion SARS-CoV-2 Antigen (Rapid) - Final Weight used for dosin kg Estimated Creatinine Clearance: 77 Goal Trough: 15-20 mcg/mL Pharmacy Plan for Drug Dosing: Trough below goal range. Increase to 1000mg IV q12h with trough prior to 4th dose. Pharmacy Service will continue to monitor and adjust dosing as required. Follow-Up Labs: Trough Vancomycin - 11/18 @ 1733
[2021-11-16 21:25] LABS: Bedside Glucose 289 mg/dL (74-106)
[2021-11-16] MEDS: Ibuprofen 400 MG Tablet PO (22:47)
[2021-11-17] VITALS (20 sets, daily range): BP systolic 66–110; BP diastolic 44–76; PULSE 73–115; RESP 14–20; TEMP 36.4–38.5; O2SAT 92–98
[2021-11-17] MEDS: Vancomycin IV 1,000 MG/200 ML BAG 200 MG IV ×2 (05:06→18:35)
[2021-11-17 06:06] LABS: Bedside Glucose 269 mg/dL (74-106)
[2021-11-17 06:33] LABS: Absolute Lymphocyte Count 0.69 X10^3/uL (0.83-4.51); Basophil# 0.01 X10^3/uL; Basophil% 0.1 % (0-1); Eosinophil# 0.07 X10^3/uL; Eosinophils% 0.7 % (0-5); Hematocrit 29.2 % (40-54); Hemoglobin 9.7 g/dL (13.0-16.5); Lymphocyte # 0.69 X10^3/ul (0.83-4.51); Lymphocyte % 6.5 % (19-41); Mean Corp Hgb Conc 33.2 g/dL (32-36); Mean Corpuscular Hgb 28.6 pg (27.0-32.0); Mean Corpuscular Volume 86.1 fL (80-94); Mean Platelet Vol. 10.2 fl (6.2-12.0); Monocyte% 7.5 % (0-10); NRBC Flagged by Analyzer 0 % (0-5); Neutrophil # 9.02 X10^3/uL (2.7-7.7); Neutrophil % 84.3 % (47-70); Platelet Count 193 K/mm3 (150-450); RBC Distribution Width CV 14.2 % (11.6-14.6); RBC Distribution Width SD 44.8 fl (35.1-43.9); Red Blood Count 3.39 M/mm3 (4.6-6.2); White Blood Count 10.7 K/mm3 (4.4-11.0)
[2021-11-17 06:49] LABS: ALB/GLOB Ratio 0.5 RATIO (0.9-2.4); AST(SGOT) 51 U/L (15-37); Alanine Aminotransfer ALT/SGPT 49 U/L (16-61); Albumin, Serum 1.8 g/dL (3.2-5.0); Alkaline Phosphatase 70 U/L (45-117); Anion Gap 7 (5-15); BUN 39 mg/dL (7-18); BUN/Creat Ratio 33.3 RATIO (10-20); Calcium,Total 8.2 mg/dL (8.5-10.1); Chloride 109 mmol/L (98-107); Creatinine, Serum 1.17 mg/dL (0.70-1.30); EST Glomerular Filtration Rate 74 mL/min (>60); Est Glom Filt Rate - Afr Amer 89 mL/min (>60); Estimated Creatinine Clearance 90.28 ml/min; Globulin 3.9 g/dL (2.2-4.2); Glucose 189 mg/dL (74-106); Protein, Total 5.7 g/dL (6.4-8.2); Sodium Level 139 mmol/L (136-145)
[2021-11-17 07:45] LABS: Hemoglobin A1c 6.6 % (3.8-5.6)
[2021-11-17] MEDS: Juven (unflavored) Packet 1 PACKET PO ×2 (08:02→16:55)
[2021-11-17] MEDS: DAKIN'S SOL HALF STRENGTH (=0.25%) 1 APPLIC TOPICAL (08:09)
--- NOTE | 2021-11-17 08:31 | PCM.PN.INT ---
Assessment & Plan Assessment/Plan (1) Septic shock: PLAN: RECOMMENDATIONS: 1. Await repeat surgical intervention 2. Await podiatry recommendations on repeat intervention 3. Antimicrobials per infectious disease 4. We will likely sign off if patient tolerates surgery well without hypotension 5. Continue current pain control regimen. 6. Continue local wound care per podiatry recommendations. 7. Continue appropriate DVT prophylaxis. 8. Encourage incentive spirometer use while in bed. IMPRESSIONS: 1. Septic shock The patient presented to the hospital with sepsis due to diabetic foot ulcer/osteomyelitis with acute sepsis related organ dysfunction as evidenced by hypotension, acute kidney injury and lactic acidemia. The patient went on to develop fluid refractory hypotension, which necessitated the initiation of vasopressor support to maintain hemodynamic stability. Ultimately, the patient was taken to the OR and underwent I&D of the left plantar and dorsal foot wounds. Patient has been on antimicrobials for several days at this point. Patient is planning on going back to the OR today, but should tolerate this better. If patient remains hemodynamically stable, will likely sign off from a critical care perspective. Do anticipate a protracted recovery given baseline issues. 2. Acute kidney injury Likely prerenal in etiology/ischemic ATN in the setting of #1. Creatinine is improving with volume expansion and blood pressure support. No pressor requirements at this time. Continue to monitor urine output. No current indication for renal replacement therapy. 3. Morbid obesity/hypertension/hyperlipidemia/diabetes mellitus Complicates care, management, recovery and prognosis. Continue to hold home antihypertensives. Continue sliding scale insulin coverage. Blood sugars remain relatively controlled, but hemoglobin A1c appears to be trending up Subjective Subjective Patient with significant fever overnight, but remained hemodynamically stable. Patient subjectively feels unchanged compared to yesterday. Patient is tentatively scheduled for 1 PM to go to the OR today. Patient reportedly tolerated wound care well secondary to neuropathy. Objective Data Objective Data Vital Signs: Vital Signs Temp Pulse Resp BP Pulse Ox 36.4 C L 77 18 95/61 94 11/17/21 03:18 11/17/21 06:59 11/17/21 03:18 11/17/21 03:18 11/17/21 07:15 Oxygen Flow Rate (L/min) 2 Oxygen Delivery Method Room Air Weight: 136.4 kg Body Mass Index (BMI) 42.2 Intake & Output: Intake and Output for Last 24 Hours 04/05/2911/16/21 11/17/21 23:59 23:59 23:59 Intake Total 6756.63 / 6757.11 4031.76 / 4031.76 446 / 446 Output Total 3475 / 3475 4350 / 4350 300 / 300 Balance 3281.63 / 3282.11 -318.24 / -318.24 146 / 146 Lab / Micro Data Result Diagrams: 11/17/21 06:25 11/17/21 06:25 Labs: Laboratory Results - last 24 hr 11/16/21 10:14: POC Glucose 131 H 11/16/21 16:32: POC Glucose 206 H 11/16/21 17:00: Vancomycin Trough 7.8 11/16/21 20:42: POC Glucose 289 H 11/17/21 05:58: POC Glucose 269 H 11/17/21 06:25: WBC 10.7, RBC 3.39 L, Hgb 9.7 L, Hct 29.2 L, MCV 86.1, MCH 28.6, MCHC 33.2, RDW Std Deviation 44.8 H, RDW Coeff of Venita 14.2, Plt Count 193, MPV 10.2, Immature Gran % (Auto) 0.900, Neut % (Auto) 84.3 H, Lymph % (Auto) 6.5 L, [place] % (Auto) 7.5, Eos % (Auto) 0.7, Baso % (Auto) 0.1, Absolute Neuts (auto) 9.0 H, Absolute Lymphs (auto) 0.69 L, Nucleated RBC % 0 11/17/21 06:25: Sodium 139, Potassium 4.0, Chloride 109 H, Carbon Dioxide 23.0, Anion Gap 7, BUN 39 H, Creatinine 1.17, Estim Creat Clear Calc 90.28, Est GFR (MDRD) Af Amer 89, Est GFR (MDRD) Non-Af 74, BUN/Creatinine Ratio 33.3 H, Glucose 189 H, Calcium 8.2 L, Total Bilirubin 0.70, AST 51 H, ALT 49, Alkaline Phosphatase 70, Total Protein 5.7 L, Albumin 1.8 L, Globulin 3.9, Albumin/Globulin Ratio 0.5 L 11/17/21 06:25: Hemoglobin A1c 6.6 H Micro: Microbiology 11/14/21 15:40 Blood Culture (Wb) - Anticubital Right Bacteria Detection (PCR) - Final Strep not Strep pneumo 11/14/21 15:40 Blood Culture (Wb) - Anticubital Right Blood Culture - Final Streptococcus mitis/ oralis 11/14/21 Unknown Wound Abcess - Left Foot Gram Stain - Final 11/14/21 Unknown Wound Abcess - Left Foot Wound Culture - Preliminary Alpha Hemolytic Streptococcus GPC Poss Enterococcus sp 11/14/21 Unknown Tissue - Left Foot Gram Stain - Final 11/14/21 Unknown Tissue - Left Foot Wound Culture - Preliminary Alpha Hemolytic Streptococcus GPC Poss Enterococcus sp Gram positive vance 11/14/21 Unknown Tissue - Left Foot Gram Stain - Final 11/14/21 Unknown Tissue - Left Foot Wound Culture - Preliminary Alpha Hemolytic Streptococcus Gram Positive Cocci Gram positive vance 11/14/21 Unknown Bone - Left Foot Gram Stain - Final 11/14/21 Unknown Bone - Left Foot Wound Culture - Preliminary Alpha Hemolytic Streptococcus GPC Poss Enterococcus sp Gram positive vance 11/14/21 16:36 Urine, Clean Catch Urine Culture - Final Mixed Gram Positive Organisms 11/14/21 15:10 Blood Culture (Wb) - Anticubital Left Blood Culture - Preliminary 11/14/21 18:47 Nasal Secretion SARS-CoV-2 Antigen (Rapid) - Final Radiography Diagnostic Testing: Radiology Impression Lower Extremity MRI 11/16/21 07:53 IMPRESSION: Osteomyelitis of the anterior and plantar aspect of the cuboid bone associated with the plantar ulcer/open soft tissue wound 1. An open soft tissue wound with ulceration and cellulitis is present on the plantar aspect and lateral side of foot measuring 1.37 cm in diameter. Infectious phlegmon is material is present in the soft tissue tract that extends to the plantar surface and anterior aspect of the cuboid bone which is mildly eroded due to osteomyelitis. 2. A 1.46 cm abscess is present in the subcutaneous fat at the anterior aspect of the open plantar ulcer/wound. 3. Large soft tissue defect/wound on the dorsum of the midfoot, but without an abscess or underlying osteomyelitis on the dorsal surface of the bones. Physical Exam Const alert, oriented x3 and no apparent distress General Appearance: cooperative and diaphoretic Nutritional Appearance: morbidly obese HEENT normocephalic and head/scalp atraumatic Eyes PERRL, EOMs intact bilaterally and conjunctivae normal Neck supple General: trachea midline Chest inspection of chest normal Resp normal respiratory effort and clear to auscultation bilaterally Effort and Inspection: symmetric chest movement Auscultation: Negative for rales, rhonchi or wheezes Cardio regular rate and regular rhythm Heart Sounds: Negative for gallop, murmur or rub GI normal to inspection, nondistended, normoactive bowel sounds Extremity Extremity Narrative: Wrapped left lower extremity. Neuro oriented x3, CN's II-XII intact bilaterally and moves all extremities Psych cooperative and affect normal Charges/Coding Visit Charges Inpatient E&M: 53334 Subs Hosp L2
--- NOTE | 2021-11-17 09:56 | CASEMGMT ---
SW reviewed patient's PT/OT evaluations and patient was not able to maintain non-weightbearing status. SW met with patient, introduced self and role at [facility]. SW spoke with patient about his discharge plan. Patient feels he will be fine going home. Patient said that he was told if he absolutely has to put weight on his foot he can do this. SW told patient that just in case SW will leave a list of facilities that take his insurance. SW explained the facilities highlighted in pink are the ones that take his insurance. SW provided a list of SNF providers including quality and resource use data and consistent with the patient?s preferred geographic region, medical needs, and insurance network. CINDY told patient CINDY and RN RYAN will continue to follow for d/c planning. Lamar DAVIS
--- NOTE | 2021-11-17 10:12 | PN.ID_ITS ---
Physical Exam Narrative Denies fever overnight, no n/v/d. Mild pain in L foot. Const alert and no apparent distress General Appearance: cooperative Resp normal air movement and clear to auscultation bilaterally Cardio regular rate and regular rhythm GI soft to palpation, non-tender and non-distended Skin Skin Narrative: L foot wrapped ID ID: Route of nutrition/ use of supplements: [] Nutritional Intake: [] IV Site: [] Hernandes Catheter: [] Assessment & Plan Assessment/Plan (1) Gas gangrene: PLAN: GEOFF improved, out of icu. Now s/p OR 11/14, surg cx with enterococcus, GPR, and strep. Bcx with strep. Still with abscess seen on MRI. Will cont vanc/butch/clinda. OR planned for today. Will follow. Pt is fully covid vaccinated. 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
[2021-11-17 11:20] LABS: Bedside Glucose 230 mg/dL (74-106)
[2021-11-17] MEDS: Lactated Ringers 1,000 ML 15 ML IV (12:32)
--- NOTE | 2021-11-17 12:38 | PN.HOSP_ITS ---
Subjective Subjective No new events/complaints. Surgery today. Objective Data Objective Data Vital Signs: Vital Signs Temp Pulse Resp BP Pulse Ox 37.2 C 90 16 103/56 L 96 11/17/21 09:00 11/17/21 09:00 11/17/21 09:00 11/17/21 09:00 11/17/21 09:00 Oxygen Flow Rate (L/min) 2 Oxygen Delivery Method Room Air Weight: 136.4 kg Body Mass Index (BMI) 42.2 Intake & Output: Intake and Output for Last 24 Hours 11/15/21 11/16/21 11/17/21 23:59 23:59 23:59 Intake Total 6756.63 / 6757.11 4031.76 / 4031.76 976 / 976 Output Total 3475 / 3475 4350 / 4350 300 / 300 Balance 3281.63 / 3282.11 -318.24 / -318.24 676 / 676 Lab / Micro Data Result Diagrams: 11/17/21 06:25 11/17/21 06:25 Labs: Laboratory Results - last 24 hr 11/16/21 16:32: POC Glucose 206 H 11/16/21 17:00: Vancomycin Trough 7.8 11/16/21 20:42: POC Glucose 289 H 11/17/21 05:58: POC Glucose 269 H 11/17/21 06:25: WBC 10.7, RBC 3.39 L, Hgb 9.7 L, Hct 29.2 L, MCV 86.1, MCH 28.6, MCHC 33.2, RDW Std Deviation 44.8 H, RDW Coeff of Venita 14.2, Plt Count 193, MPV 10.2, Immature Gran % (Auto) 0.900, Neut % (Auto) 84.3 H, Lymph % (Auto) 6.5 L, [place] % (Auto) 7.5, Eos % (Auto) 0.7, Baso % (Auto) 0.1, Absolute Neuts (auto) 9.0 H, Absolute Lymphs (auto) 0.69 L, Nucleated RBC % 0 11/17/21 06:25: Sodium 139, Potassium 4.0, Chloride 109 H, Carbon Dioxide 23.0, Anion Gap 7, BUN 39 H, Creatinine 1.17, Estim Creat Clear Calc 90.28, Est GFR (MDRD) Af Amer 89, Est GFR (MDRD) Non-Af 74, BUN/Creatinine Ratio 33.3 H, Gluc ose 189 H, Calcium 8.2 L, Total Bilirubin 0.70, AST 51 H, ALT 49, Alkaline Phosphatase 70, Total Protein 5.7 L, Albumin 1.8 L, Globulin 3.9, Albumin/Globulin Ratio 0.5 L 11/17/21 06:25: Hemoglobin A1c 6.6 H 11/17/21 11:10: POC Glucose 230 H Micro: Microbiology 11/14/21 15:10 Blood Culture (Wb) - Anticubital Left Blood Culture - Final Alpha Hemolytic Streptococcus 11/14/21 Unknown Tissue - Left Foot Gram Stain - Final 11/14/21 Unknown Tissue - Left Foot Wound Culture - Preliminary Alpha Hemolytic Streptococcus Enterococcus faecalis Gram positive vance 11/14/21 Unknown Tissue - Left Foot Anaerobic Culture - Preliminary 11/14/21 Unknown Tissue - Left Foot Gram Stain - Final 11/14/21 Unknown Tissue - Left Foot Wound Culture - Preliminary Alpha Hemolytic Streptococcus GPC Poss Enterococcus sp Gram positive vance 11/14/21 Unknown Tissue - Left Foot Anaerobic Culture - Preliminary 11/14/21 Unknown Bone - Left Foot Gram Stain - Final 11/14/21 Unknown Bone - Left Foot Wound Culture - Preliminary Streptococcus mitis/ oralis GPC Poss Enterococcus sp Gram positive vance 11/14/21 Unknown Wound Abcess - Left Foot Gram Stain - Final 11/14/21 Unknown Wound Abcess - Left Foot Wound Culture - Final Streptococcus mitis/ oralis Enterococcus faecalis 11/14/21 15:40 Blood Culture (Wb) - Anticubital Right Bacteria Detection (PCR) - Final Strep not Strep pneumo 11/14/21 15:40 Blood Culture (Wb) - Anticubital Right Blood Culture - Final Streptococcus mitis/ oralis 11/14/21 16:36 Urine, Clean Catch Urine Culture - Final Mixed Gram Positive Organisms 11/14/21 18:47 Nasal Secretion SARS-CoV-2 Antigen (Rapid) - Final Radiography Diagnostic Testing: Radiology Impression Lower Extremity MRI 11/16/21 07:53 Physical Exam Const alert and no apparent distress Resp normal respiratory effort, no use of accessory muscles and clear to auscultation bilaterally Cardio regular rate, regular rhythm, S1 normal heart sound and S2 normal heart sound GI normal to inspection, nondistended, normoactive bowel sounds, soft to palpation and non-tender Extremity normal to inspection and full ROM Extremity Narrative: left leg wrapped--did not remove. Assessment & Plan Assessment/Plan (1) Septic shock: (2) Gas gangrene: (3) Acute kidney injury: PLAN: 1. septic shock * 2/2 gas gangrene, cellulitis and abscess of LLE * resolved 2. LLE Gas gangrene, cellulitis and abscess * polymicrobial and Strep mitis and E. faecalis * on vancomycin and meropenem * ID and podiatry following. * 11/14: 1. Incision and drainage down to bone cortex with bone biopsy and culture left plantar foot wound 2. Incision and drainage left dorsal foot down to level of tendon sheath * 11/16: MRI showed opend wound with ulceration and celluitis on dorsum of left foot. Phlegmon, abscess. No obvious osteomyelitis * 11/17: to OR today 3. GEOFF * resolved wtih IVF * monitor * may have been ATN from shock * on IVF 4. DM2 * fair control * a1c 6.6 * continue SSI for now 5. VTE prophylaxis: * RLE SCDs for now. Chemical prophylaxis when ok with podiatry. Charges/Coding Visit Charges Inpatient E&M: 93706 Subs Hosp L2
[2021-11-17] MEDS: Clindamycin 900 MG/50 ML BAG 75 MG IV ×2 (14:07→20:29)
[2021-11-17] MEDS: Bupivacaine Mpf 0.5% 30 ML VIAL (14:18)
--- NOTE | 2021-11-17 14:52 | PCM.OPRPT ---
Problems Associated Problem List Diagnoses (1) Septic shock: (2) 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 muscle: (3) 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 bone: (4) Gas gangrene: (5) Diabetic infection of left foot: Report of Operation Date of Procedure: 11/17/21 Pre-Operative Diagnosis: Left diabetic foot infection with abscess and osteomyelitis Post-Operative Diagnosis: Left diabetic foot infection with abscess and osteomyelitis Surgery/Procedure Performed:: Foot incision and drainage down to bone cortex x2 dorsal and plantar left foot Description of Surgical Findings:: Patient was brought back to the operating room placed comfortably in supine position. Patient views under MAC anesthesia well-padded calf tourniquet applied to left lower extremity this was not used throughout the case. 20 cc of half percent Marcaine plain was used to perform an ankle block as well as local infiltration to anesthetize the left foot; however, the patient is significant diabetic neuropathy. Left lower extremity scrubbed prepped and draped using typical aseptic manner. Once clinically cleared by anesthesia the dorsal foot incision was extended proximally and distally using #15 blade down to including level of subcutaneous tissue blunt dissection was used to prevent ulnar vascular structures any bleeders were cauterized. The tourniquet was let down to be identified to healthy viable tissue versus nonviable tissue. Should be noted at this time that there is diffuse necrosis of the tissue extending down to the level of bone with diffuse purulent drainage there is a connection of the dorsal incision down to the plantar midfoot wound. All nonviable tissue was excised using combination 15 blade pickups, bone rongeurs, blunt dissection with Metzenbaum scissors. The amount of necrotic tissue was overwhelming however majority of it was excised at this time and the purulence was drained upon the dorsal foot incision there was no evidence of any proximal tracking or proximal abscess. Attention was taken to the level of the plantar midfoot which the wound was excised and expanded so that we could further evaluate and decompress any remaining abscess. This point there is noted to be tissue necrosis down to the level of the cuboid bone with decompression of a 5 cc abscess to this area. There is noted to be communication the wound into the flexor sheath through the tarsal tunnel with purulence tracking along that area. This was decompressed with expansion via use of baby Metzenbaum scissors. All bleeders were cauterized a large amount of tissue was taken for culture. The dorsal and plantar foot wounds were flushed with copious amounts normal sterile saline using pulse lavage. Remaining tissue appeared to be 90% bleeding granular there is some necrosis noted down to level of bone extending through the talonavicular joint into the plantar foot as well as through the CC joint into the plantar foot. It is my assumption that the navicular cuneiform and majority midfoot bones are significantly infected at this time. I feel personally that there is a low chance of salvage for this; however, I feel that we were able to remove a large amount of the residual infection and will monitor the patient's clinical progress to IV antibiotics as directed by infectious disease and if there is any recurrence I would likely recommend below the knee amputation for definitive infection clearance to prevent any additional comorbidities associated with prolonged infection. Wounds were packed with iodoform to the plantar foot wound along the flexor tendon sheaths along the distal proximal lateral and medial aspects of the wound. Dorsal foot wound was packed with Betadine wet-to-dry along with Surgicel to the dorsal and plantar foot wounds assist with any bleeding. Stat H&H was ordered for the postoperative course along with a type and screen, will consider transfusion of 2 units as blood loss was noted to be approximately 100 cc. Patient tolerated procedure anesthesia well in apparent satisfactory condition patient transferred PACU vital signs stable vascular status intact all digits for further monitoring prior to discharge. We will continue to watch the patient closely he has improved significantly from a systemic standpoint; however, the extent of infection in the left foot is overwhelming as I feel we have removed the majority of it we have also reviewed moved majority of the soft tissue to the dorsal and plantar foot which may compromise healing long-term the patient may benefit in the short-term and long-term from a below the knee amputation. At this time I feel we will observe the patient's response to IV antibiotic therapy as well as this debridement if there is any further tissue breakdown and recurrence of purulent drainage I would recommend a below the knee amputation. Pathologic specimens: Left foot soft tissue, left foot post lavage cultures Findings: Diffuse soft tissue necrosis extending down the level bone to the dorsal and plantar foot with healthy bleeding suggestive of potential wound healing Complications: Some bleeding noted throughout the case will observe this, majority bleeders were cauterized intraoperatively the wounds were packed with Surgicel and a tight compressive dressing was applied to assist with hemostasis
[2021-11-17 16:21] LABS: Hematocrit 32.6 % (40-54); Hemoglobin 10.7 g/dL (13.0-16.5)
[2021-11-17] MEDS: Acetaminophen 325 MG Tablet 650 MG PO ×2 (16:34→23:34)
[2021-11-17 16:51] LABS: M R Staph aureus DNA By PCR Negative (Negative); Probe Check PASS; Specimen Processing Control PASS; Staph aureus DNA By PCR NEGATIVE (Negative)
--- NOTE | 2021-11-17 16:52 | NURSING ---
[facility] late d/t pt being off floor at surgery.
[2021-11-17] MEDS: Insulin Lispro 100 UNIT/ML INSULN.PEN SC ×2 (16:55→20:32)
[2021-11-17 17:00] LABS: Bedside Glucose 186 mg/dL (74-106)
[2021-11-17] MEDS: Heparin Injection (Vial) 5,000 UNIT/ML VIAL 5000 UNIT SC (20:31)
[2021-11-17 22:01] LABS: Bedside Glucose 405 mg/dL (74-106)
[2021-11-18] VITALS (16 sets, daily range): BP systolic 81–105; BP diastolic 36–73; PULSE 72–102; RESP 16–20; TEMP 36.6–39.1; O2SAT 90–97
[2021-11-18 00:29] LABS: Hematocrit 26.5 % (40-54); Hemoglobin 8.9 g/dL (13.0-16.5)
[2021-11-18] MEDS: Ibuprofen 400 MG Tablet PO (01:30)
[2021-11-18] MEDS: 0.9% Normal Saline 1,000 ML 999 ML IV (01:30)
[2021-11-18] MEDS: Clindamycin 900 MG/50 ML BAG 75 MG IV ×3 (05:48→23:13)
[2021-11-18 06:10] LABS: Absolute Lymphocyte Count 0.97 X10^3/uL (0.83-4.51); Absolute Neutrophil Count 9.1 X10^3/uL (2.0-7.7); Basophil# 0.02 X10^3/uL; Basophil% 0.2 % (0-1); Eosinophil# 0.11 X10^3/uL; Hematocrit 27.1 % (40-54); Hemoglobin 8.9 g/dL (13.0-16.5); Lymphocyte # 0.97 X10^3/ul (0.83-4.51); Lymphocyte % 8.6 % (19-41); Mean Corp Hgb Conc 32.8 g/dL (32-36); Mean Corpuscular Hgb 28.3 pg (27.0-32.0); Monocyte# 0.83 X10^3/uL; Monocyte% 7.4 % (0-10); NRBC Flagged by Analyzer 0 % (0-5); Neutrophil # 9.09 X10^3/uL (2.7-7.7); Neutrophil % 80.4 % (47-70); Platelet Count 235 K/mm3 (150-450); RBC Distribution Width CV 14.1 % (11.6-14.6); RBC Distribution Width SD 43.8 fl (35.1-43.9); Red Blood Count 3.15 M/mm3 (4.6-6.2); White Blood Count 11.3 K/mm3 (4.4-11.0)
[2021-11-18] MEDS: Insulin Lispro 100 UNIT/ML INSULN.PEN SC ×4 (06:29→23:07)
[2021-11-18 06:36] LABS: Bedside Glucose 178 mg/dL (74-106)
[2021-11-18 06:43] LABS: Anion Gap 8 (5-15); BUN 41 mg/dL (7-18); Calcium,Total 7.9 mg/dL (8.5-10.1); Chloride 109 mmol/L (98-107); Creatinine, Serum 1.17 mg/dL (0.70-1.30); EST Glomerular Filtration Rate 74 mL/min (>60); Est Glom Filt Rate - Afr Amer 89 mL/min (>60); Estimated Creatinine Clearance 90.28 ml/min; Glucose 175 mg/dL (74-106); Sodium Level 137 mmol/L (136-145)
[2021-11-18] MEDS: Vancomycin IV 1,000 MG/200 ML BAG 200 MG IV ×2 (07:13→17:55)
[2021-11-18] MEDS: Heparin Injection (Vial) 5,000 UNIT/ML VIAL 5000 UNIT SC ×2 (08:07→23:09)
[2021-11-18] MEDS: DAKIN'S SOL HALF STRENGTH (=0.25%) 1 APPLIC TOPICAL (08:08)
[2021-11-18] MEDS: Juven (unflavored) Packet 1 PACKET PO ×2 (08:08→16:27)
--- NOTE | 2021-11-18 08:19 | PN_ITS ---
Subjective Subjective This 41 year old male was seen bedside in this morning 1 day post op. Patient denies pain, fever, chills, nausea, vomiting, chest pain, calf pain, shortness of breath. Patient voiding urine and passing gas. No other complaints. Objective Data Objective Data Vital Signs: Vital Signs Temp Pulse Resp BP Pulse Ox 98 F 74 16 100/59 L 94 11/18/21 07:59 11/18/21 07:59 11/18/21 07:59 11/18/21 07:59 11/18/21 07:59 Oxygen Flow Rate (L/min) 2 Oxygen Delivery Method Room Air Weight: 136.1 kg Body Mass Index (BMI) 42.2 Intake & Output: Intake and Output for Last 24 Hours 11/16/21 11/17/21 11/18/21 23:59 23:59 23:59 Intake Total 4031.76 / 4031.76 3515.5 / 3515.5 1672.85 / 1672.85 Output Total 4350 / 4350 300 / 1600 1300 / 1300 Balance -318.24 / -318.24 3215.5 / 1915.5 372.85 / 372.85 Lab / Micro Data Result Diagrams: 11/18/21 05:45 11/18/21 05:45 Labs: Laboratory Results - last 24 hr 11/17/21 11:10: POC Glucose 230 H 11/17/21 16:14: Hgb 10.7 L, Hct 32.6 L 11/17/21 16:14: Blood Type A POSITIVE, Antibody Screen NEGATIVE 11/17/21 16:54: POC Glucose 186 H 11/17/21 20:27: POC Glucose 405 H 11/17/21 : S.aureus Protein A PCR NEGATIVE, MRSA (PCR) Negative 11/18/21 00:21: Hgb 8.9 L, Hct 26.5 L 11/18/21 05:45: WBC 11.3 H, RBC 3.15 L, Hgb 8.9 L, Hct 27.1 L, MCV 86.0, MCH 28. 3, MCHC 32.8, RDW Std Deviation 43.8, RDW Coeff of Venita 14.1, Plt Count 235, MPV 10.0, Immature Gran % (Auto) 2.400 H, Neut % (Auto) 80.4 H, Lymph % (Auto) 8.6 L , [place] % (Auto) 7.4, Eos % (Auto) 1.0, Baso % (Auto) 0.2, Absolute Neuts (auto) 9.1 H, Absolute Lymphs (auto) 0.97, Nucleated RBC % 0 11/18/21 05:45: Sodium 137, Potassium 4.0, Chloride 109 H, Carbon Dioxide 20.0 L , Anion Gap 8, BUN 41 H, Creatinine 1.17, Estim Creat Clear Calc 90.28, Est GFR (MDRD) Af Amer 89, Est GFR (MDRD) Non-Af 74, BUN/Creatinine Ratio 35.0 H, Glucose 175 H, Calcium 7.9 L, C-React Prot Ext Range 187.00 H 11/18/21 06:27: POC Glucose 178 H Micro: Microbiology 11/14/21 Unknown Bone - Left Foot Gram Stain - Final 11/14/21 Unknown Bone - Left Foot Wound Culture - Preliminary Streptococcus mitis/ oralis Enterococcus faecalis Gram positive vance 11/14/21 Unknown Tissue - Left Foot Gram Stain - Final 11/14/21 Unknown Tissue - Left Foot Wound Culture - Final Enterococcus faecalis Streptococcus mitis/ oralis Corynebacterium amycolatum 11/14/21 Unknown Tissue - Left Foot Gram Stain - Final 11/14/21 Unknown Tissue - Left Foot Wound Culture - Final Streptococcus mitis/ oralis Enterococcus faecalis Corynebacterium amycolatum 11/14/21 15:10 Blood Culture (Wb) - Anticubital Left Blood Culture - Final Alpha Hemolytic Streptococcus 11/14/21 Unknown Wound Abcess - Left Foot Gram Stain - Final 11/14/21 Unknown Wound Abcess - Left Foot Wound Culture - Final Streptococcus mitis/ oralis Enterococcus faecalis 11/14/21 15:40 Blood Culture (Wb) - Anticubital Right Bacteria Detection (PCR) - Final Strep not Strep pneumo 11/14/21 15:40 Blood Culture (Wb) - Anticubital Right Blood Culture - Final Streptococcus mitis/ oralis 11/14/21 16:36 Urine, Clean Catch Urine Culture - Final Mixed Gram Positive Organisms 11/14/21 18:47 Nasal Secretion SARS-CoV-2 Antigen (Rapid) - Final Physical Exam Narrative Patient is alert oriented to person place and time. Patient nonambulatory at this time. Vascular: Dorsalis pedis and posterior tibial pulses palpable 2 out of 4 to bilateral lower extremity. Capillary fill time brisk to all digits bilaterally. Digital hair growth noted bilaterally. There is significant improvement to the edema and erythema noted to the left foot along with resolving warmth extending into the ankle. Neurologic: Light touch protective sensation absent to bilateral feet. No pain on physical examination. Dermatologic: Full-thickness ulceration noted to the plantar left medial longitudinal arch down to standing down to level of bone. A clean granular base with mild serosanguineous drainage. Periwound area to the site appears clean and intact at this time. Left dorsal midfoot incision down to the level of e xtensor tendons and midfoot joints, noted to communicate w/ plantar foot wound, there is improved malodorous drainage from the site with increase necrosis and increased purulent drainage w/ malodor. Musculoskeletal: Charcot foot deformity noted bilaterally with collapse of lateral longitudinal arch creating a plantar convexity bilaterally. Muscular strength full to bilateral lower extremity compartments. Crepitus resolved to the wound and periwound area on the left lower extremity. Assessment & Plan Assessment/Plan (1) Septic shock: (2) 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 muscle: (3) 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 bone: (4) Gas gangrene: (5) Diabetic infection of left foot: PLAN: Patient examined and evaluated, all findings examined and reviewed with patient in detail. This discussion was held with patient's family as well. Was taken to the OR on 11/15/2021 for emergent decompression of an abscess and gas infection to his left foot and repeat debridement was performed on 11/17/2021. At this time there was noted to be extensive necrosis down to bone from both the dorsal and plantar incisional sites which communicate through chopart's joint. I feel that 80-90% of infection clearance was performed with this debridement; however, there is likely residual bone involvement and extensive soft tissue loss. At this time I will continue local wound care to ensure infection clearance and attempt to heel deep wounds, but if there is any worsening of his foot clinically he may require BKA. This was explained to him in detail at bedside. Dressings changed, continue dakin's wet to dry w/ DSD and martha for compression. PAtient improved systemically, less drainage today. Will continue local wound care at this time with non-weightbearing. Patient may benefit from SNF for recovery. ID on board; Vanc/Hannah/Clindamycin. Will continue to follow daily and observe for final wound cultures. He will follow up with me in the wound care setting.
--- NOTE | 2021-11-18 08:24 | WOUNDNOTE ---
wound photo: left dorsal foot
--- NOTE | 2021-11-18 08:24 | WOUNDNOTE ---
wound photo: left plantar foot
--- NOTE | 2021-11-18 11:08 | PN.HOSP_ITS ---
Subjective Subjective No pain post op. Denies other complaints. Objective Data Objective Data Vital Signs: Vital Signs Temp Pulse Resp BP Pulse Ox 36.6 C 74 16 100/59 L 96 11/18/21 07:59 11/18/21 07:59 11/18/21 07:59 11/18/21 07:59 11/18/21 10:13 Oxygen Flow Rate (L/min) 2 Oxygen Delivery Method Room Air Weight: 136.1 kg Body Mass Index (BMI) 42.2 Intake & Output: Intake and Output for Last 24 Hours 11/16/21 11/17/21 11/18/21 23:59 23:59 23:59 Intake Total 4031.76 / 4031.76 3515.5 / 3515.5 1872.85 / 1872.85 Output Total 4350 / 4350 300 / 1600 1300 / 1300 Balance -318.24 / -318.24 3215.5 / 1915.5 572.85 / 572.85 Lab / Micro Data Result Diagrams: 11/18/21 05:45 11/18/21 05:45 Labs: Laboratory Results - last 24 hr 11/17/21 11:10: POC Glucose 230 H 11/17/21 16:14: Hgb 10.7 L, Hct 32.6 L 11/17/21 16:14: Blood Type A POSITIVE, Antibody Screen NEGATIVE 11/17/21 16:54: POC Glucose 186 H 11/17/21 20:27: POC Glucose 405 H 11/17/21 : S.aureus Protein A PCR NEGATIVE, MRSA (PCR) Negative 11/18/21 00:21: Hgb 8.9 L, Hct 26.5 L 11/18/21 05:45: WBC 11.3 H, RBC 3.15 L, Hgb 8.9 L, Hct 27.1 L, MCV 86.0, MCH 28.3, MCHC 32.8, RDW Std Deviation 43.8, RDW Coeff of Venita 14.1, Plt Count 235, MPV 10.0, Immature Gran % (Auto) 2.400 H, Neut % (Auto) 80.4 H, Lymph % (Auto) 8.6 L, [place] % (Auto) 7.4, Eos % (Auto) 1.0, Baso % (Auto) 0.2, Absolute Neuts (auto) 9.1 H, Absolute Lymphs (auto) 0.97, Nucleated RBC % 0 11/18/21 05:45: Sodium 137, Potassium 4.0, Chloride 109 H, Carbon Dioxide 20.0 L , Anion Gap 8, BUN 41 H, Creatinine 1.17, Estim Creat Clear Calc 90.28, Est GFR (MDRD) Af Amer 89, Est GFR (MDRD) Non-Af 74, BUN/Creatinine Ratio 35.0 H, Glucose 175 H, Calcium 7.9 L, C-React Prot Ext Range 187.00 H 11/18/21 06:27: POC Glucose 178 H Micro: Microbiology 11/17/21 Unknown Wound - Left Foot Gram Stain - Final 11/17/21 Unknown Tissue - Left Foot Gram Stain - Final 11/14/21 Unknown Wound Abcess - Left Foot Gram Stain - Final 11/14/21 Unknown Wound Abcess - Left Foot Wound Culture - Final Streptococcus mitis/ oralis Enterococcus faecalis 11/14/21 Unknown Wound Abcess - Left Foot Anaerobic Culture - Final Anaerobic cocci 11/14/21 Unknown Bone - Left Foot Gram Stain - Final 11/14/21 Unknown Bone - Left Foot Wound Culture - Preliminary Streptococcus mitis/ oralis Enterococcus faecalis Gram positive vance 11/14/21 Unknown Bone - Left Foot Anaerobic Culture - Preliminary 11/14/21 Unknown Tissue - Left Foot Gram Stain - Final 11/14/21 Unknown Tissue - Left Foot Wound Culture - Final Enterococcus faecalis Streptococcus mitis/ oralis Corynebacterium amycolatum 11/14/21 Unknown Tissue - Left Foot Gram Stain - Final 11/14/21 Unknown Tissue - Left Foot Wound Culture - Final Streptococcus mitis/ oralis Enterococcus faecalis Corynebacterium amycolatum 11/14/21 15:10 Blood Culture (Wb) - Anticubital Left Blood Culture - Final Alpha Hemolytic Streptococcus 11/14/21 15:40 Blood Culture (Wb) - Anticubital Right Bacteria Detection (PCR) - Final Strep not Strep pneumo 11/14/21 15:40 Blood Culture (Wb) - Anticubital Right Blood Culture - Final Streptococcus mitis/ oralis 11/14/21 16:36 Urine, Clean Catch Urine Culture - Final Mixed Gram Positive Organisms 11/14/21 18:47 Nasal Secretion SARS-CoV-2 Antigen (Rapid) - Final Physical Exam Const alert and no apparent distress Resp normal respiratory effort, no retractions, no use of accessory muscles and clear to auscultation bilaterally Cardio regular rate, regular rhythm, S1 normal heart sound and S2 normal heart sound GI normal to inspection, nondistended, normoactive bowel sounds, soft to palpation, non-tender and non-distended Extremity normal to inspection Skin Skin Narrative: large defect on dorsum of foot with tendons visible. margins clear. defect on plantar aspect with clean margins. Assessment & Plan Assessment/Plan (1) Septic shock: (2) Gas gangrene: (3) Acute kidney injury: PLAN: 1. septic shock * 2/2 gas gangrene, cellulitis and abscess of LLE * resolved 2. LLE Gas gangrene, cellulitis and abscess * polymicrobial and Strep mitis and E. faecalis * on vancomycin and meropenem * ID and podiatry following. * 11/14: 1. Incision and drainage down to bone cortex with bone biopsy and culture left plantar foot wound 2. Incision and drainage left dorsal foot down to level of tendon sheath * 11/16: MRI showed opend wound with ulceration and celluitis on dorsum of left foot. Phlegmon, abscess. No obvious osteomyelitis * 11/17: Foot incision and drainage down to bone cortex x2 dorsal and plantar left foot * DW Dr. Perkins. Continue with current tmt, though may require BKA at later point. 3. GEOFF * resolved wtih IVF * monitor * may have been ATN from shock 4. acute blood loss anemia * Hg dropped from 10.9 to 8.9. No need to transfusion at this time. * monitor 5. DM2 * fair control * a1c 6.6 * continue SSI for now 6. VTE prophylaxis: * RLE SCDs for now. Chemical prophylaxis when ok with podiatry. Charges/Coding Visit Charges Inpatient E&M: 51702 Subs Hosp L2
--- NOTE | 2021-11-18 11:11 | CASEMGMT ---
SW met with patient. SW asked patient how he is doing with everything. Patient appeared as though he may be having a tough time as noted by his tone of voice. SW listened and provided emotional support. SW broached the subject of residential for rehab and recovery. Patient said he talked with his parents and they all feel they can manage his care at home. Patient said, If I absolutely cannot go home and I have to go somewhere I will, but I really prefer to go home. CINDY explained that RN RYAN and/or CINDY will assist with d/c planning regardless. Lamar [place] [employer] AD[employer] COUNSELOR RYAN
[2021-11-18 11:25] LABS: Bedside Glucose 288 mg/dL (74-106)
--- NOTE | 2021-11-18 12:02 | PCM.PN.ID ---
Physical Exam Narrative Feeling ok, still some fever, no n/v/d. Const alert General Appearance: cooperative Resp normal air movement and clear to auscultation bilaterally Cardio regular rate and regular rhythm GI soft to palpation, non-tender and non-distended Skin Skin Narrative: L foot wrapped ID ID: Route of nutrition/ use of supplements: [] Nutritional Intake: [] IV Site: [] Hernandes Catheter: [] Assessment & Plan Assessment/Plan (1) Gas gangrene: PLAN: GEOFF improved, out of icu. Now s/p OR 11/14, surg cx with enterococcus, corynebacteria, and strep. Bcx with strep. Will cont vanc/butch/clinda. OR 11/17 with further debridement. Will follow. Pt is fully covid vaccinated. (2) Type 2 diabetes mellitus with diabetic polyneuropathy: QUALIFIERS: Diabetes mellitus joint terminal attack controller insulin use: without joint terminal attack controller use Qualified Code(s): E11.42 - Type 2 diabetes mellitus with diabetic polyneuropathy (3) Acute kidney injury: (4) Sepsis: QUALIFIERS: Sepsis type: sepsis due to unspecified organism Sepsis acute organ dysfunction status: unspecified Qualified Code(s): A41.9 - Sepsis, unspecified organism
[2021-11-18 17:01] LABS: Bedside Glucose 248 mg/dL (74-106)
[2021-11-18] MEDS: 0.9% Saline Lock 10 ML Syringe IV (17:55)
[2021-11-18 18:15] LABS: Vancomycin, Trough Level 14.7 ug/mL (5.0-15.0)
--- NOTE | 2021-11-18 20:15 | PCM.RX.CS ---
Consult Pharmacy has been consulted to manage selected antiobiotic: Vancomycin Type of Consult: Follow-up Suspected Infection: Sepsis, Skin/Soft tissue Labs: Sodium 137 mmol/L (136-145) 11/18/21 05:45 Potassium 4.0 mmol/L (3.5-5.1) 11/18/21 05:45 Chloride 109 mmol/L (98-107) H 11/18/21 05:45 Carbon Dioxide 20.0 mmol/L (21.0-32.0) L 11/18/21 05:45 Anion Gap 8 (5-15) 11/18/21 05:45 BUN 41 mg/dL (7-18) H 11/18/21 05:45 Creatinine 1.17 mg/dL (0.70-1.30) 11/18/21 05:45 Est GFR (MDRD) Af Amer 89 mL/min (>60) 11/18/21 05:45 Est GFR (MDRD) Non-Af 74 mL/min (>60) 11/18/21 05:45 BUN/Creatinine Ratio 35.0 RATIO (10-20) H 11/18/21 05:45 Glucose 175 mg/dL (74-106) H 11/18/21 05:45 Vancomycin Trough 14.7 ug/mL (5.0-15.0) 11/18/21 17:30 Microbiology: Microbiology 11/17/21 Unknown Wound - Left Foot Gram Stain - Final 11/17/21 Unknown Wound - Left Foot Wound Culture - Preliminary No growth-Final to follow 11/17/21 Unknown Tissue - Left Foot Gram Stain - Final 11/17/21 Unknown Tissue - Left Foot Wound Culture - Preliminary Gram positive organism 11/14/21 Unknown Wound Abcess - Left Foot Gram Stain - Final 11/14/21 Unknown Wound Abcess - Left Foot Wound Culture - Final Streptococcus mitis/ oralis Enterococcus faecalis 11/14/21 Unknown Wound Abcess - Left Foot Anaerobic Culture - Final Anaerobic cocci 11/14/21 Unknown Bone - Left Foot Gram Stain - Final 11/14/21 Unknown Bone - Left Foot Wound Culture - Preliminary Streptococcus mitis/ oralis Enterococcus faecalis Gram positive vance 11/14/21 Unknown Bone - Left Foot Anaerobic Culture - Preliminary 11/14/21 Unknown Tissue - Left Foot Gram Stain - Final 11/14/21 Unknown Tissue - Left Foot Wound Culture - Final Enterococcus faecalis Streptococcus mitis/ oralis Corynebacterium amycolatum 11/14/21 Unknown Tissue - Left Foot Gram Stain - Final 11/14/21 Unknown Tissue - Left Foot Wound Culture - Final Streptococcus mitis/ oralis Enterococcus faecalis Corynebacterium amycolatum 11/14/21 15:10 Blood Culture (Wb) - Anticubital Left Blood Culture - Final Alpha Hemolytic Streptococcus 11/14/21 15:40 Blood Culture (Wb) - Anticubital Right Bacteria Detection (PCR) - Final Strep not Strep pneumo 11/14/21 15:40 Blood Culture (Wb) - Anticubital Right Blood Culture - Final Streptococcus mitis/ oralis 11/14/21 16:36 Urine, Clean Catch Urine Culture - Final Mixed Gram Positive Organisms 11/14/21 18:47 Nasal Secretion SARS-CoV-2 Antigen (Rapid) - Final Goal Trough: 15-20 mcg/mL Pharmacy Plan for Drug Dosing: VANCOMYCIN LEVEL RECEIVED Current Vancomycin Dose: 1G IV Q12H Number of Doses Received: 4 (3 prior to trough being drawn) Vancomycin Level: 14.7 Hours Since Last Dose: 10.25hr Renal Function: 1.17 Renal Function Trend: significant improvement since admission Lab/Micro: WCx growing enterococcus, step, others. enterococcus sensitive to vanco Vancomycin Plan/Comments: The patient has a trough drawn which resulted in a value of 14.7 (goal 15-20). Although the trough appears close to goal, it was drawn slightly early, so the car trough is likely lower than what was drawn. Given the early trough draw, improved renal function, and severity of infection, will increase the dose slightly to 1250mg IV Q12hr to start tomorrow morning 11/19/21 @0600(evening dose was already administered) in an attempt to raise trough slightly. Of note, the patient is post-op from debridement and had an extensive infection with bone involvement. Is also on clindamycin and merrem given severity of infection as well. Pending Level: 11/20/21 @1730, prior to 4th dose of new regimen. Pharmacy Service will continue to monitor and adjust dosing as required.
[2021-11-18 23:26] LABS: Bedside Glucose 191 mg/dL (74-106)
[2021-11-19] VITALS (10 sets, daily range): BP systolic 100–118; BP diastolic 56–65; PULSE 80–98; RESP 16–18; TEMP 36.6–37.4; O2SAT 94–99
[2021-11-19] MEDS: Clindamycin 900 MG/50 ML BAG 75 MG IV ×3 (05:10→21:23)
[2021-11-19] MEDS: Insulin Lispro 100 UNIT/ML INSULN.PEN SC ×4 (06:39→21:31)
[2021-11-19 06:46] LABS: Bedside Glucose 205 mg/dL (74-106)
[2021-11-19] MEDS: Juven (unflavored) Packet 1 PACKET PO ×2 (08:11→16:45)
--- NOTE | 2021-11-19 09:18 | WOUNDNOTE ---
wound photo: left plantar foot
--- NOTE | 2021-11-19 09:18 | WOUNDNOTE ---
wound photo: left dorsal foot
[2021-11-19] MEDS: Heparin Injection (Vial) 5,000 UNIT/ML VIAL 5000 UNIT SC ×2 (09:45→21:23)
[2021-11-19] MEDS: DAKIN'S SOL HALF STRENGTH (=0.25%) 1 APPLIC TOPICAL (09:45)
--- NOTE | 2021-11-19 10:17 | PN.HOSP_ITS ---
Subjective Subjective No new events. Plan for going home with [facility] upon discharge. Objective Data Objective Data Vital Signs: Vital Signs Temp Pulse Resp BP Pulse Ox 37.2 C 80 18 101/65 95 11/19/21 06:30 11/19/21 06:50 11/19/21 06:30 11/19/21 06:30 11/19/21 07:15 Oxygen Flow Rate (L/min) 2 Oxygen Delivery Method Room Air Weight: 136.1 kg Body Mass Index (BMI) 42.2 Intake & Output: Intake and Output for Last 24 Hours 11/17/21 11/18/21 11/19/21 23:59 23:59 23:59 Intake Total 3515.5 / 3515.5 3292.85 / 3292.85 725 / 725 Output Total 300 / 1600 2200 / 2200 Balance 3215.5 / 1915.5 1092.85 / 1092.85 725 / 725 Lab / Micro Data Result Diagrams: 11/18/21 05:45 11/18/21 05:45 Labs: Laboratory Results - last 24 hr 11/18/21 11:14: POC Glucose 288 H 11/18/21 16:18: POC Glucose 248 H 11/18/21 17:30: Vancomycin Trough 14.7 11/18/21 23:04: POC Glucose 191 H 11/19/21 05:30: C-React Prot Ext Range 160.00 H 11/19/21 06:38: POC Glucose 205 H Micro: Microbiology 11/17/21 Unknown Wound - Left Foot Gram Stain - Final 11/17/21 Unknown Wound - Left Foot Wound Culture - Preliminary GPC Poss Enterococcus sp 11/17/21 Unknown Wound - Left Foot Anaerobic Culture - Preliminary Checking for anaerobes, further studies to follow. 11/17/21 Unknown Tissue - Left Foot Gram Stain - Final 11/17/21 Unknown Tissue - Left Foot Wound Culture - Preliminary GPC Poss Enterococcus sp Gram positive vance 11/17/21 Unknown Tissue - Left Foot Anaerobic Culture - Preliminary Checking for anaerobes, further studies to follow. 11/14/21 Unknown Bone - Left Foot Gram Stain - Final 11/14/21 Unknown Bone - Left Foot Wound Culture - Final Streptococcus mitis/ oralis Enterococcus faecalis Corynebacterium amycolatum 11/14/21 Unknown Wound Abcess - Left Foot Gram Stain - Final 11/14/21 Unknown Wound Abcess - Left Foot Wound Culture - Final Streptococcus mitis/ oralis Enterococcus faecalis 11/14/21 Unknown Wound Abcess - Left Foot Anaerobic Culture - Final Anaerobic cocci 11/14/21 Unknown Tissue - Left Foot Gram Stain - Final 11/14/21 Unknown Tissue - Left Foot Wound Culture - Final Enterococcus faecalis Streptococcus mitis/ oralis Corynebacterium amycolatum 11/14/21 Unknown Tissue - Left Foot Gram Stain - Final 11/14/21 Unknown Tissue - Left Foot Wound Culture - Final Streptococcus mitis/ oralis Enterococcus faecalis Corynebacterium amycolatum 11/14/21 15:10 Blood Culture (Wb) - Anticubital Left Blood Culture - Final Alpha Hemolytic Streptococcus 11/14/21 15:40 Blood Culture (Wb) - Anticubital Right Bacteria Detection (PCR) - Final Strep not Strep pneumo 11/14/21 15:40 Blood Culture (Wb) - Anticubital Right Blood Culture - Final Streptococcus mitis/ oralis 11/14/21 16:36 Urine, Clean Catch Urine Culture - Final Mixed Gram Positive Organisms 11/14/21 18:47 Nasal Secretion SARS-CoV-2 Antigen (Rapid) - Final Physical Exam Const alert and no apparent distress HEENT Head and Scalp: normocephalic Resp normal respiratory effort, no retractions, no use of accessory muscles and clear to auscultation bilaterally Cardio regular rate, regular rhythm, S1 normal heart sound and S2 normal heart sound GI normal to inspection, nondistended, normoactive bowel sounds, soft to palpation, non-tender and non-distended Extremity Extremity Narrative: LLE wrapped--did not remove. reviewed images taken today and showed open wound on dorsum of left foot with visible tendons. no purulence, no surrounding erythema. plantar wound over heel with opening w/o erythema and surrounding erythema. Assessment & Plan Assessment/Plan (1) Septic shock: (2) Gas gangrene: (3) Acute kidney injury: PLAN: 1. septic shock * 2/2 gas gangrene, cellulitis and abscess of LLE * resolved 2. LLE Gas gangrene, cellulitis and abscess * polymicrobial and Strep mitis and E. faecalis * on vancomycin and meropenem * ID and podiatry following. * 11/14: 1. Incision and drainage down to bone cortex with bone biopsy and culture left plantar foot wound 2. Incision and drainage left dorsal foot down to level of tendon sheath * 11/16: MRI showed opend wound with ulceration and celluitis on dorsum of left foot. Phlegmon, abscess. No obvious osteomyelitis * 11/17: Foot incision and drainage down to bone cortex x2 dorsal and plantar left foot * 11/18: DW Dr. Perkins. Continue with current tmt, though may require BKA at later point. 3. GEOFF * resolved wtih IVF * monitor * may have been ATN from shock 4. acute blood loss anemia * Hg dropped from 10.9 to 8.9. No need to transfusion at this time. * monitor 5. DM2 * fair control * a1c 6.6 * continue SSI for now 6. VTE prophylaxis: * RLE SCDs for now. Chemical prophylaxis when ok with podiatry. Disposition: eventually to home with C. when ok by podiatry. Will need PICC and insurance approval for abx. Charges/Coding Visit Charges Inpatient E&M: 84036 Subs Hosp L2
--- NOTE | 2021-11-19 10:26 | PCM.PN.ID ---
Physical Exam Narrative Feeling better, no fever, no n/v/d. Const alert and no apparent distress General Appearance: cooperative Resp normal air movement and clear to auscultation bilaterally Cardio regular rate and regular rhythm GI soft to palpation, non-tender and non-distended Skin no rashes or lesions noted Skin Narrative: reviewed photos L foot ID ID: Route of nutrition/ use of supplements: [] Nutritional Intake: [] IV Site: [] Hernandes Catheter: [] Assessment & Plan Assessment/Plan (1) Gas gangrene: PLAN: GEOFF improved, out of icu. Now s/p OR 11/14, surg cx with enterococcus, corynebacteria, and strep. Bcx with strep. Will cont vanc/butch/clinda. OR 11/17 with further debridement. Will order picc, plan on dc home with 6 weeks iv vanc and erta. Clinda stops tomorrow. Will need dose of erta prior to discharge. Ordered weekly labs, will need ID followup in 2 weeks. Will follow. Pt is fully covid vaccinated. D/w case finisher (2) Type 2 diabetes mellitus with diabetic polyneuropathy: QUALIFIERS: Diabetes mellitus motor equipment commanding officer insulin use: without motor equipment commanding officer use Qualified Code(s): E11.42 - Type 2 diabetes mellitus with diabetic polyneuropathy (3) Acute kidney injury: (4) Sepsis: QUALIFIERS: Sepsis type: sepsis due to unspecified organism Sepsis acute organ dysfunction status: unspecified Qualified Code(s): A41.9 - Sepsis, unspecified organism
[2021-11-19 11:51] LABS: Bedside Glucose 293 mg/dL (74-106)
--- NOTE | 2021-11-19 13:19 | WOUNDNOTE ---
Home wound VAC authorization initiated. waiting for signed prescription and approval.
--- NOTE | 2021-11-19 14:16 | CASEMGMT ---
Addendum entered by Anne Marie Bell 11/19/21 15:48: Call back from Marti at [facility] and they can accept pt. CM to follow. Erica GOODWIN CM Addendum entered by Anne Marie Bell 11/19/21 15:00: This RN CM back to room and pt/parents state they would like to go home with [facility] and [facility] for antibx/supplies. Pt states just ordered a knee scooter online. Call to Marti at [facility] with referral and order placed for SN/PT/OT. Referral faxed to [facility]. PICC placed earlier today. CM to follow. Erica GOODWIN CM Original Note: Pt will need wound care, possible wound vac, and IV antibx at discharge per Dr. Vee. Pt is to be NWB on left foot and wears a grindstone boot on right. Pt does live with parents who can assist with care. This RN CM to room to discuss with pt/parents but parents had not arrived yet. This RN CM discussed with pt and pt states plan is to go home and he will use a knee scooter to assist in NWB. Per Dr. Perkins's notes, if pt has any worsening of sx's then he will likely need a BKA. Pt provided list of [facility] providers including quality and resource use data and consistent with the pt's preferred getographic region, medical needs, and insurance network. While finishing discussion with pt, parents came into room and they were updated on all, voice understanding. Parents are concerned about caring for pt at home and the risk for pt losing lower leg. Pt/parents to discuss and CM to f/u again in a bit. Pt already had a list of SNF's at bedside. CM to follow. Erica GOODWIN CM
--- NOTE | 2021-11-19 15:36 | CASEMGMT ---
Therapy worked with patient using a knee scooter. Patient did not do well. SW went to patient's room. Introduced self again. SW asked how therapy went and patient admitted it did not go well. SW asked if the plan is still the same. Patient said, We're working on it. Patient's step dad said, We know what we want, but he hasn't changed his mind. SW asked if the plan is still home. Patient said, I am going home. Lamar DAVIS
[2021-11-19 18:50] LABS: Bedside Glucose 193 mg/dL (74-106)
[2021-11-19] MEDS: Acetaminophen 325 MG Tablet 650 MG PO (21:22)
[2021-11-19 21:51] LABS: Bedside Glucose 259 mg/dL (74-106)
[2021-11-20] VITALS (10 sets, daily range): BP systolic 102–123; BP diastolic 54–72; PULSE 75–99; RESP 16–18; TEMP 36.5–38.2; O2SAT 94–97
[2021-11-20] MEDS: Insulin Lispro 100 UNIT/ML INSULN.PEN SC ×4 (06:36→22:11)
[2021-11-20 06:46] LABS: Bedside Glucose 217 mg/dL (74-106)
[2021-11-20] MEDS: Clindamycin 900 MG/50 ML BAG 75 MG IV (06:46)
[2021-11-20 07:56] LABS: Absolute Lymphocyte Count 0.68 X10^3/uL (0.83-4.51); Absolute Neutrophil Count 7.1 X10^3/uL (2.0-7.7); Basophil# 0.02 X10^3/uL; Basophil% 0.2 % (0-1); Eosinophil# 0.21 X10^3/uL; Eosinophils% 2.3 % (0-5); Hematocrit 27.8 % (40-54); Hemoglobin 9.2 g/dL (13.0-16.5); Lymphocyte # 0.68 X10^3/ul (0.83-4.51); Lymphocyte % 7.6 % (19-41); Mean Corp Hgb Conc 33.1 g/dL (32-36); Mean Corpuscular Hgb 28.4 pg (27.0-32.0); Mean Corpuscular Volume 85.8 fL (80-94); Mean Platelet Vol. 9.3 fl (6.2-12.0); Monocyte# 0.59 X10^3/uL; Monocyte% 6.6 % (0-10); NRBC Flagged by Analyzer 0 % (0-5); Neutrophil # 7.07 X10^3/uL (2.7-7.7); Neutrophil % 78.6 % (47-70); Platelet Count 351 K/mm3 (150-450); RBC Distribution Width CV 13.8 % (11.6-14.6); RBC Distribution Width SD 43.6 fl (35.1-43.9); Red Blood Count 3.24 M/mm3 (4.6-6.2)
--- NOTE | 2021-11-20 08:19 | WOUNDNOTE ---
Was consulted on patient for redness to the abdomen. patient has a pink scarred area to the mid lower abdomen. no open area noted. patient has some dry dark moles noted to the back and upper buttock. patient also has a nonhealing opening to the cris cleft area from a previous removal of pilonidal cyst. some dry skin noted to bilateral lower legs. no need for wound care at this time. lotion applied to legs and feet. see skin photos.
[2021-11-20 08:22] LABS: Anion Gap 2 (5-15); BUN 22 mg/dL (7-18); BUN/Creat Ratio 29.4 RATIO (10-20); Calcium,Total 8.4 mg/dL (8.5-10.1); Chloride 109 mmol/L (98-107); Creatinine, Serum 0.75 mg/dL (0.70-1.30); EST Glomerular Filtration Rate 123 mL/min (>60); Est Glom Filt Rate - Afr Amer 149 mL/min (>60); Estimated Creatinine Clearance 140.84 ml/min; Glucose 202 mg/dL (74-106); Potassium 4.3 mmol/L (3.5-5.1); Sodium Level 138 mmol/L (136-145)
[2021-11-20] MEDS: Juven (unflavored) Packet 1 PACKET PO ×2 (09:19→16:25)
[2021-11-20] MEDS: DAKIN'S SOL HALF STRENGTH (=0.25%) 1 APPLIC TOPICAL (09:19)
[2021-11-20] MEDS: Heparin Injection (Vial) 5,000 UNIT/ML VIAL 5000 UNIT SC ×2 (09:19→22:12)
--- NOTE | 2021-11-20 10:15 | CASEMGMT ---
BUDDY DAVIS called [facility] to inquire about IV ATB referral. Per Karina at [facility], patient has $1500 deductible and then insurance overs 80% until $3500 out of pocket met. BUDDY DAVIS requested [facility] call patient to update regarding cost. BUDDY DAVIS asked [facility] when the latest that they would need to know about discharge for today for patient's next dose for at home at 6pm. Per [facility] they would need to know by 12noon today. BUDDY DAVIS followed up with wound nurse and home wound vac still pending approval. BUDDY DAVIS updated [facility] for potential for discharge today if home vac approved and potential start of care for today at 6pm with next Vanco dose. BUDDY DAVIS to continue to monitor this patient and plan for a safe discharge.
--- NOTE | 2021-11-20 10:54 | PN.HOSP_ITS ---
Subjective Subjective No new events. Objective Data Objective Data Vital Signs: Vital Signs Temp Pulse Resp BP Pulse Ox 36.7 C 92 18 114/62 96 11/20/21 09:15 11/20/21 09:15 11/20/21 09:15 11/20/21 09:15 11/20/21 09:15 Oxygen Flow Rate (L/min) 2 Oxygen Delivery Method Room Air Weight: 138.5 kg Body Mass Index (BMI) 42.2 Intake & Output: Intake and Output for Last 24 Hours 11/18/21 11/19/21 11/20/21 23:59 23:59 23:59 Intake Total 3292.85 / 3292.85 2470 / 2470 465 / 465 Output Total 2200 / 2200 600 / 600 600 / 600 Balance 1092.85 / 1092.85 1870 / 1870 -135 / -135 Lab / Micro Data Result Diagrams: 11/20/21 07:40 11/20/21 07:40 Labs: Laboratory Results - last 24 hr 11/19/21 11:24: POC Glucose 293 H 11/19/21 16:38: POC Glucose 193 H 11/19/21 21:30: POC Glucose 259 H 11/20/21 06:33: POC Glucose 217 H 11/20/21 07:40: Sodium 138, Potassium 4.3, Chloride 109 H, Carbon Dioxide 27.0, Anion Gap 2 L, BUN 22 H, Creatinine 0.75, Estim Creat Clear Calc 140.84, Est GFR (MDRD) Af Amer 149, Est GFR (MDRD) Non-Af 123, BUN/Creatinine Ratio 29.4 H, Glucose 202 H, Calcium 8.4 L, C-React Prot Ext Range 140.00 H 11/20/21 07:40: WBC 9.0, RBC 3.24 L, Hgb 9.2 L, Hct 27.8 L, MCV 85.8, MCH 28.4, MCHC 33.1, RDW Std Deviation 43.6, RDW Coeff of Venita 13.8, Plt Count 351, MPV 9.3, Immature Gran % (Auto) 4.700 H, Neut % (Auto) 78.6 H, Lymph % (Auto) 7.6 L, [place] % (Auto) 6.6, Eos % (Auto) 2.3, Baso % (Auto) 0.2, Absolute Neuts (auto) 7.1, Absolute Lymphs (auto) 0.68 L, Nucleated RBC % 0 Micro: Microbiology 11/17/21 Unknown Wound - Left Foot Gram Stain - Final 11/17/21 Unknown Wound - Left Foot Wound Culture - Final Enterococcus faecalis 11/17/21 Unknown Wound - Left Foot Anaerobic Culture - Preliminary Checking for anaerobes, further studies to follow. 11/17/21 Unknown Tissue - Left Foot Gram Stain - Final 11/17/21 Unknown Tissue - Left Foot Wound Culture - Final Enterococcus faecalis Corynebacterium amycolatum 11/17/21 Unknown Tissue - Left Foot Anaerobic Culture - Preliminary Checking for anaerobes, further studies to follow. 11/14/21 Unknown Tissue - Left Foot Gram Stain - Final 11/14/21 Unknown Tissue - Left Foot Wound Culture - Final Enterococcus faecalis Streptococcus mitis/ oralis Corynebacterium amycolatum 11/14/21 Unknown Tissue - Left Foot Anaerobic Culture - Final Prevotella bivia 11/14/21 Unknown Tissue - Left Foot Gram Stain - Final 11/14/21 Unknown Tissue - Left Foot Wound Culture - Final Streptococcus mitis/ oralis Enterococcus faecalis Corynebacterium amycolatum 11/14/21 Unknown Tissue - Left Foot Anaerobic Culture - Final Prevotella bivia 11/14/21 Unknown Bone - Left Foot Gram Stain - Final 11/14/21 Unknown Bone - Left Foot Wound Culture - Final Streptococcus mitis/ oralis Enterococcus faecalis Corynebacterium amycolatum 11/14/21 Unknown Bone - Left Foot Anaerobic Culture - Final Actinomyces meyeri 11/16/21 17:00 Blood Culture (Wb) - Anticubital Right Blood Culture - Prelim inary No growth in 48 hours. 11/14/21 Unknown Wound Abcess - Left Foot Gram Stain - Final 11/14/21 Unknown Wound Abcess - Left Foot Wound Culture - Final Streptococcus mitis/ oralis Enterococcus faecalis 11/14/21 Unknown Wound Abcess - Left Foot Anaerobic Culture - Final Anaerobic cocci 11/14/21 15:10 Blood Culture (Wb) - Anticubital Left Blood Culture - Final Alpha Hemolytic Streptococcus 11/14/21 15:40 Blood Culture (Wb) - Anticubital Right Bacteria Detection (PCR) - Final Strep not Strep pneumo 11/14/21 15:40 Blood Culture (Wb) - Anticubital Right Blood Culture - Final Streptococcus mitis/ oralis 11/14/21 16:36 Urine, Clean Catch Urine Culture - Final Mixed Gram Positive Organisms 11/14/21 18:47 Nasal Secretion SARS-CoV-2 Antigen (Rapid) - Final Physical Exam Const alert and no apparent distress Resp normal respiratory effort, no retractions, no use of accessory muscles and clear to auscultation bilaterally Cardio regular rate, regular rhythm, S1 normal heart sound and S2 normal heart sound GI normal to inspection, nondistended, normoactive bowel sounds and soft to palpati on Extremity Extremity Narrative: LLE wrapped. Neuro Neuro Narrative: diminished sensation in toes. Assessment & Plan Assessment/Plan (1) Septic shock: (2) Gas gangrene: (3) Acute kidney injury: PLAN: 1. septic shock * 2/2 gas gangrene, cellulitis and abscess of LLE * resolved * 2/2 #2 2. LLE Gas gangrene, cellulitis and abscess * polymicrobial and Strep mitis and E. faecalis * on vancomycin and meropenem * ID and podiatry following. * 11/14: 1. Incision and drainage down to bone cortex with bone biopsy and culture left plantar foot wound 2. Incision and drainage left dorsal foot down to level of tendon sheath * 11/16: MRI showed opend wound with ulceration and celluitis on dorsum of left foot. Phlegmon, abscess. No obvious osteomyelitis * 11/17: Foot incision and drainage down to bone cortex x2 dorsal and plantar left foot * 11/18: DW Dr. Perkins. Continue with current tmt, though may require BKA at later point. * 11/19: ID recommended 6 weeks of IV vanc and ertapenem. 3. GEOFF * resolved with IVF * monitor * may have been ATN from shock 4. acute blood loss anemia * Hg dropped from 10.9 to 8.9. No need to transfusion at this time. * monitor 5. DM2 * fair control * a1c 6.6 * continue SSI for now 6. VTE prophylaxis: * RLE SCDs for now. Chemical prophylaxis when ok with podiatry. Disposition: eventually to home with [facility] with his parents. when ok by podiatry, insurance coverage for abx. Charges/Coding Visit Charges Inpatient E&M: 16261 Subs Hosp L2
--- NOTE | 2021-11-20 12:15 | CASEMGMT ---
BUDDY DAVIS in to discuss discharge planning with patient. Patient confirms that he spoke with Karina from [facility] regarding IV ATB cost. Patient states he is agreeable to cost and would like to proceed with home discharge. Still awaiting approval for home wound vac. BUDDY DAVIS updated hospitalist and due to time for IV ATB delivery will plan start of care for Tuesday. Plan is for patient to discharge home Tuesday in the morning after his IV ATB doses. BUDDY DAVIS updated [facility], [facility], Wound nurse, and patient. BUDDY DAVIS will continue to follow this patient and plan for a safe discharge.
[2021-11-20 12:16] LABS: Bedside Glucose 292 mg/dL (74-106)
--- NOTE | 2021-11-20 13:02 | PN.ID_ITS ---
Physical Exam Narrative Feeling ok, foot improving, no fever, no n/v/d. Const alert and no apparent distress General Appearance: cooperative Resp normal air movement and clear to auscultation bilaterally Cardio regular rate and regular rhythm GI soft to palpation, non-tender and non-distended Skin Skin Narrative: foot wrapped ID ID: Route of nutrition/ use of supplements: [] Nutritional Intake: [] IV Site: [] Hernandes Catheter: [] Assessment & Plan Assessment/Plan (1) Gas gangrene: PLAN: GEOFF improved, out of icu. Now s/p OR 11/14, surg cx with enterococcus, corynebacteria, and strep. Bcx with strep. Will cont vanc/butch; will stop clinda. OR 11/17 with further debridement. Plan on dc home with 6 weeks iv vanc and erta. Clinda stops tomorrow. Ordered single dose of erta prior to discharge. Ordered weekly labs, will need ID followup in 2 weeks. Will follow. Pt is fully covid vaccinated. D/w case fitter (2) Type 2 diabetes mellitus with diabetic polyneuropathy: QUALIFIERS: Diabetes mellitus senior living insulin use: without terminal computer operator use Qualified Code(s): E11.42 - Type 2 diabetes mellitus with diabetic polyneuropathy (3) Acute kidney injury: (4) Sepsis: QUALIFIERS: Sepsis type: sepsis due to unspecified organism Sepsis acute organ dysfunction status: unspecified Qualified Code(s): A41.9 - Sepsis, unspecified organism
--- NOTE | 2021-11-20 14:20 | WOUNDNOTE ---
Home VAC approved. talked with RYAN Kenney and plan is for dishcarge home tomorrow. nursing can switch patient to home VAC prior to discharge. proof of delivery signed and faxed back to [facility].
--- NOTE | 2021-11-20 14:37 | WOUNDNOTE ---
Reviewed alarms, canister change, need for taking dressings to Wound center appts, etc. with patient. patient denies questions.
[2021-11-20 16:41] LABS: Bedside Glucose 315 mg/dL (74-106)
[2021-11-20 17:30] LABS: Vancomycin, Trough Level 14.9 ug/mL (5.0-15.0)
--- NOTE | 2021-11-20 18:06 | PCM.RX.CS ---
Consult Pharmacy has been consulted to manage selected antiobiotic: Vancomycin Type of Consult: Follow-up Labs: Sodium 138 mmol/L (136-145) 11/20/21 07:40 Potassium 4.3 mmol/L (3.5-5.1) 11/20/21 07:40 Chloride 109 mmol/L (98-107) H 11/20/21 07:40 Carbon Dioxide 27.0 mmol/L (21.0-32.0) 11/20/21 07:40 Anion Gap 2 (5-15) L 11/20/21 07:40 BUN 22 mg/dL (7-18) H 11/20/21 07:40 Creatinine 0.75 mg/dL (0.70-1.30) 11/20/21 07:40 Est GFR (MDRD) Af Amer 149 mL/min (>60) 11/20/21 07:40 Est GFR (MDRD) Non-Af 123 mL/min (>60) 11/20/21 07:40 BUN/Creatinine Ratio 29.4 RATIO (10-20) H 11/20/21 07:40 Glucose 202 mg/dL (74-106) H 11/20/21 07:40 Vancomycin Trough 14.9 ug/mL (5.0-15.0) 11/20/21 16:39 Microbiology: Microbiology 11/17/21 Unknown Wound - Left Foot Gram Stain - Final 11/17/21 Unknown Wound - Left Foot Wound Culture - Final Enterococcus faecalis 11/17/21 Unknown Wound - Left Foot Anaerobic Culture - Preliminary Checking for anaerobes, further studies to follow. 11/17/21 Unknown Tissue - Left Foot Gram Stain - Final 11/17/21 Unknown Tissue - Left Foot Wound Culture - Final Enterococcus faecalis Corynebacterium amycolatum 11/17/21 Unknown Tissue - Left Foot Anaerobic Culture - Preliminary Checking for anaerobes, further studies to follow. 11/14/21 Unknown Tissue - Left Foot Gram Stain - Final 11/14/21 Unknown Tissue - Left Foot Wound Culture - Final Enterococcus faecalis Streptococcus mitis/ oralis Corynebacterium amycolatum 11/14/21 Unknown Tissue - Left Foot Anaerobic Culture - Final Prevotella bivia 11/14/21 Unknown Tissue - Left Foot Gram Stain - Final 11/14/21 Unknown Tissue - Left Foot Wound Culture - Final Streptococcus mitis/ oralis Enterococcus faecalis Corynebacterium amycolatum 11/14/21 Unknown Tissue - Left Foot Anaerobic Culture - Final Prevotella bivia 11/14/21 Unknown Bone - Left Foot Gram Stain - Final 11/14/21 Unknown Bone - Left Foot Wound Culture - Final Streptococcus mitis/ oralis Enterococcus faecalis Corynebacterium amycolatum 11/14/21 Unknown Bone - Left Foot Anaerobic Culture - Final Actinomyces meyeri 11/16/21 17:00 Blood Culture (Wb) - Anticubital Right Blood Culture - Preliminary No growth in 48 hours. 11/14/21 Unknown Wound Abcess - Left Foot Gram Stain - Final 11/14/21 Unknown Wound Abcess - Left Foot Wound Culture - Final Streptococcus mitis/ oralis Enterococcus faecalis 11/14/21 Unknown Wound Abcess - Left Foot Anaerobic Culture - Final Anaerobic cocci 11/14/21 15:10 Blood Culture (Wb) - Anticubital Left Blood Culture - Final Alpha Hemolytic Streptococcus 11/14/21 15:40 Blood Culture (Wb) - Anticubital Right Bacteria Detection (PCR) - Final Strep not Strep pneumo 11/14/21 15:40 Blood Culture (Wb) - Anticubital Right Blood Culture - Final Streptococcus mitis/ oralis 11/14/21 16:36 Urine, Clean Catch Urine Culture - Final Mixed Gram Positive Organisms 11/14/21 18:47 Nasal Secretion SARS-CoV-2 Antigen (Rapid) - Final Goal Trough: 15-20 mcg/mL Pharmacy Plan for Drug Dosing: VANCOMYCIN LEVEL RECEIVED Current Vancomycin Dose: 1250mg q12h (,18) Number of Doses Received: x3 of current dose Vancomycin Level: 14.9 Hours Since Last Dose: 11 Renal Function: SrCr 0.75 Renal Function Trend: SrCr improving (was 1.17) Lab/Micro: Vancomycin Plan/Comments: pts renal function is improving. resulted goal trough is slightly below the ordered goal trough of 15-20. pts dose recently changed from 1gm q12h to 1250mg q12h. pt may not yet be at steady state of new dose. recommend continuing current dose and rechecking level Pending Level: 11/22/21 at 1730 Pharmacy Service will continue to monitor and adjust dosing as required. Follow-Up Labs: Trough Vancomycin - 11/22/21 at 1730
[2021-11-20 23:21] LABS: Bedside Glucose 256 mg/dL (74-106)
[2021-11-21 02:13] VITALS: BP 132/65; PULSE 91; RESP 16; TEMP 37.2; O2SAT 94
[2021-11-21 03:11] VITALS: PULSE 86
[2021-11-21] MEDS: Insulin Lispro 100 UNIT/ML INSULN.PEN SC (06:39)
[2021-11-21 06:51] LABS: Bedside Glucose 227 mg/dL (74-106)
[2021-11-21 06:55] VITALS: BP 123/70; PULSE 82; RESP 18; TEMP 36.9; O2SAT 94
[2021-11-21 07:00] VITALS: PULSE 80
[2021-11-21] MEDS: Juven (unflavored) Packet 1 PACKET PO (07:47)
[2021-11-21] MEDS: Heparin Injection (Vial) 5,000 UNIT/ML VIAL 5000 UNIT SC (08:59)
--- NOTE | 2021-11-21 09:51 | PCM.DC ---
Discharge Instructions Diet Discharge Diet: 2000 Calorie Control Diet Activity Weight Bearing Status: No weight bearing (LLE) Keep extremity elevated above heart level: Left Leg Dressing / Incision Call your doctor if your incision/area has: Continuous Slow Oozing, Sudden Increased Bleeding, Increased Pain/ Swelling and Foul Smelling Discharge Follow Up Care Test Results: Test results from this visit will be discussed in further detail at your follow-up appointment, if applicable. Discharge Plan Admission Admit Date/Time: 11/14/21 18:27 Primary Reason for Your Visit: Septic shock. LLE gas gangrene Attending Provider: Zain Shields Primary Care Provider: Dom Villagomez Consulting Providers: Yoan Vee ; Mikael Maynard ; Emil Julien ; Saba Park NP ; Jordi Perkins Discharge Orders/Prescriptions Prescriptions: New vancomycin 1.25 gram recon soln 1.25 g IV Q12H Qty: 78 RF: 0 ertapenem [Invanz] 1 gram recon soln 1 g IV Q24H Qty: 39 RF: 0 HySept 0.25 % Solution 1 applic topical DAILY Qty: 473 RF: 0 Galo (with collagen) 7-7-1.5 gram Powder In Packet 1 packet PO BIDCM Qty: 30 RF: 0 Continued pravastatin 40 mg tablet QHS RF: 0 metformin 1,000 mg tablet BID RF: 0 lisinopril 10 mg tablet DAILY RF: 0 Jardiance 25 mg tablet DAILY RF: 0 Discontinued ciprofloxacin HCl 750 mg tablet BID RF: 0 Referrals / Follow Up: Jordi Perkins DPM [STAFF PHYSICIAN] - (follow up in wound care center on Tuesday of next week, call for appointment time) Dom Villagomez DO [Primary Care Provider] - Disposition Disposition (needs filled in before D/C Order can be placed): Home Health Service
--- NOTE | 2021-11-21 09:55 | PCM.DC.SUM ---
Providers Date of Admission: 11/14/21 Primary Care Physician: Dr. Dom Villagomez DO Consultations 11/14/21 21:30 Consult: Residence Life Director / Pulmonary Medicine Routine Consulting Provider: Pulmonary Medicine vignesh Varner Reason for Consult: septic shock EMERGENT Consult: No MD Notified: Yes Date Notified: 11/14/21 Time Notified: 18:37 Method of Notification: Text Consult: Podiatry Routine Consulting Provider: Jordi Perkins Reason for Consult: left foot wound/deep wound infection EMERGENT Consult: No MD Notified: Yes Date Notified: 11/14/21 Time Notified: 18:36 Method of Notification: Verbal 11/16/21 10:46 Consult: Infectious Disease Routine Consulting Provider: Yoan Vee Reason for Consult: positive blood culture EMERGENT Consult: No Notified: Yes Date Notified: 11/16/21 Time Notified: 10:01 Method of Notification: Verbal 11/17/21 06:28 Consult: Onc/Wound/research center partner Routine Comment: Reason for Consult:: left foot Reason For Visit: SEPTIC SHOCK, DEEP WOUND LEFT FOOT 2NDARY TO Diagnosis Discharge Diagnosis (1) Gas gangrene: Status: Acute Code(s): A48.0 - Gas gangrene (2) Type 2 diabetes mellitus with diabetic polyneuropathy: Status: Acute Code(s): E11.42 - Type 2 diabetes mellitus with diabetic polyneuropathy Qualifiers: Diabetes mellitus [facility] insulin use: without [facility] use Qualified Code(s): E11.42 - Type 2 diabetes mellitus with diabetic polyneuropathy (3) Acute kidney injury: Status: Acute Code(s): N17.9 - Acute kidney failure, unspecified (4) Sepsis: Status: Acute Code(s): A41.9 - Sepsis, unspecified organism Qualifiers: Sepsis type: sepsis due to unspecified organism Sepsis acute organ dysfunction status: unspecified Qualified Code(s): A41.9 - Sepsis, unspecified organism Medications at Discharge Home Medications Jardiance mg DAILY 11/14/21 lisinopril DAILY 11/14/21 metformin mg BID 11/14/21 pravastatin QHS 11/14/21 ertapenem [Invanz] 1 g IV Q24H #39 ea 11/19/21 vancomycin 1.25 g IV Q12H #78 ea 11/19/21 [id number] [Galo (with collagen)] 1 packet PO BIDCM #30 ea 11/21/21 sodium hypochlorite [HySept] 1 applic TOPICAL DAILY #473 ml 11/21/21 Hospital Course Operations - (11/14: 1. Incision and drainage down to bone cortex with bone biopsy and culture left plantar foot wound 2. Incision and drainage left dorsal foot down to level of tendon sheath. 11/17: Foot incision and drainage down to bone cortex x2 dorsal and plantar left foot. ) Procedures None Summary of Care Provided Minutes Spent on Discharge: 35 Hospital Course: This is a 41-year-old male presents with fever and chills from home and swelling of his left foot. Patient had been on a trip in September and developed a blister on the plantar surface of his foot. Patient been seeing physicians prior to his arrival but felt worse the day of presentation. Patient had fever 103 and was hypotensive with blood pressure of 82/45. Patient was noted to have ecchymotic area on the dorsum of his left foot patient was admitted to the intensive care unit for septic shock. Patient did not require surgeries and debridement. It is actually recommended patient have below the knee amputation however the patient wanted to continue with salvage therapy. Patient did require 2 surgeries but it was concerning the patient did have osteomyelitis. Patient has visible tendons and does have a wound VAC in place. Patient will continue with vancomycin and meropenem for 6 weeks and I will follow up with infectious disease. Patient additionally follow-up with podiatry. Patient was recommended going to a alf facility but the patient insisted on going home where he lives with his parents. Patient will have home health care services there. Patient has ordered a knee scooter to help with getting around since he will be nonweightbearing in his left lower extremity. 1. septic shock 2/2 gas gangrene, cellulitis and abscess of LLE resolved 09/09 #2 2. LLE Gas gangrene, cellulitis and abscess polymicrobial and Strep mitis and E. faecalis on vancomycin and meropenem ID and podiatry following. 11/14: 1. Incision and drainage down to bone cortex with bone biopsy and culture left plantar foot wound 2. Incision and drainage left dorsal foot down to level of tendon sheath 11/16: MRI showed opend wound with ulceration and celluitis on dorsum of left foot. Phlegmon, abscess. No obvious osteomyelitis 11/17: Foot incision and drainage down to bone cortex x2 dorsal and plantar left foot 11/18: DW Dr. Perkins. Continue with current tmt, though may require BKA at later point. 11/19: ID recommended 6 weeks of IV vanc and ertapenem. 3. GEOFF resolved with IVF monitor may have been ATN from shock 4. acute blood loss anemia Hg dropped from 10.9 to 8.9. No need to transfusion at this time. monitor 5. DM2 fair control a1c 6.6 resume home oral meds Physical Exam Const alert and no apparent distress Cardio regular rate, regular rhythm, S1 normal heart sound and S2 normal heart sound GI normal to inspection, nondistended, normoactive bowel sounds, soft to palpation, non-tender and non-distended Extremity Extremity Narrative: Left leg wrapped--did not remove. Weight / BMI Weight Weight: 137.9 kg Body Mass Index (BMI) 42.2 ABG / Lab / Microbiology Data Result Diagrams: 11/20/21 07:40 11/20/21 07:40 Laboratory: Laboratory Results - last 24 hr 11/20/21 11:36: POC Glucose 292 H 11/20/21 16:16: POC Glucose 315 H 11/20/21 16:39: Vancomycin Trough 14.9 11/20/21 22:04: POC Glucose 256 H 11/21/21 06:37: POC Glucose 227 H 11/21/21 06:50: C-React Prot Ext Range 130.00 H Microbiology: Microbiology 11/17/21 Unknown Wound - Left Foot Gram Stain - Final 11/17/21 Unknown Wound - Left Foot Wound Culture - Final Enterococcus faecalis 11/17/21 Unknown Wound - Left Foot Anaerobic Culture - Preliminary Checking for anaerobes, further studies to follow. 11/17/21 Unknown Tissue - Left Foot Gram Stain - Final 11/17/21 Unknown Tissue - Left Foot Wound Culture - Final Enterococcus faecalis Corynebacterium amycolatum 11/17/21 Unknown Tissue - Left Foot Anaerobic Culture - Preliminary Checking for anaerobes, further studies to follow. 11/14/21 Unknown Tissue - Left Foot Gram Stain - Final 11/14/21 Unknown Tissue - Left Foot Wound Culture - Final Enterococcus faecalis Streptococcus mitis/ oralis Corynebacterium amycolatum 11/14/21 Unknown Tissue - Left Foot Anaerobic Culture - Final Prevotella bivia 11/14/21 Unknown Tissue - Left Foot Gram Stain - Final 11/14/21 Unknown Tissue - Left Foot Wound Culture - Final Streptococcus mitis/ oralis Enterococcus faecalis Corynebacterium amycolatum 11/14/21 Unknown Tissue - Left Foot Anaerobic Culture - Final Prevotella bivia 11/14/21 Unknown Bone - Left Foot Gram Stain - Final 11/14/21 Unknown Bone - Left Foot Wound Culture - Final Streptococcus mitis/ oralis Enterococcus faecalis Corynebacterium amycolatum 11/14/21 Unknown Bone - Left Foot Anaerobic Culture - Final Actinomyces meyeri 11/16/21 17:00 Blood Culture (Wb) - Anticubital Right Blood Culture - Preliminary No growth in 48 hours. 11/14/21 Unknown Wound Abcess - Left Foot Gram Stain - Final 11/14/21 Unknown Wound Abcess - Left Foot Wound Culture - Final Streptococcus mitis/ oralis Enterococcus faecalis 11/14/21 Unknown Wound Abcess - Left Foot Anaerobic Culture - Final Anaerobic cocci 11/14/21 15:10 Blood Culture (Wb) - Anticubital Left Blood Culture - Final Alpha Hemolytic Streptococcus 11/14/21 15:40 Blood Culture (Wb) - Anticubital Right Bacteria Detection (PCR) - Final Strep not Strep pneumo 11/14/21 15:40 Blood Culture (Wb) - Anticubital Right Blood Culture - Final Streptococcus mitis/ oralis 11/14/21 16:36 Urine, Clean Catch Urine Culture - Final Mixed Gram Positive Organisms 11/14/21 18:47 Nasal Secretion SARS-CoV-2 Antigen (Rapid) - Final D/C Instructions Discharge Diet: 2000 Calorie Control Diet Weight Bearing Status: No weight bearing (LLE) Keep extremity elevated above heart level: Left Leg Call your doctor if your incision/area has: Continuous Slow Oozing, Sudden Increased Bleeding, Increased Pain/ Swelling and Foul Smelling Discharge Meaningful Use Info Meaningful Use Diagnoses (Choose all that apply): None applicable Discharge Plan Admission Admit Date/Time: 11/14/21 18:27 Primary Reason for Your Visit: Septic shock. LLE gas gangrene Attending Provider: Zain Shields Primary Care Provider: Dom Villagomez Consulting Providers: Yoan Vee ; Mikael Maynard ; Emil Julien ; [place] [employer] ; Jordi Perkins Discharge Orders/Prescriptions Prescriptions: New vancomycin 1.25 gram recon soln 1.25 g IV Q12H Qty: 78 RF: 0 ertapenem [Invanz] 1 gram recon soln 1 g IV Q24H Qty: 39 RF: 0 HySept 0.25 % Solution 1 applic topical DAILY Qty: 473 RF: 0 Galo (with collagen) 7-7-1.5 gram Powder In Packet 1 packet PO BIDCM Qty: 30 RF: 0 Continued pravastatin 40 mg tablet QHS RF: 0 metformin 1,000 mg tablet BID RF: 0 lisinopril 10 mg tablet DAILY RF: 0 Jardiance 25 mg tablet DAILY RF: 0 Discontinued ciprofloxacin HCl 750 mg tablet BID RF: 0 Referrals / Follow Up: Jordi Perkins DPM [STAFF PHYSICIAN] - (follow up in wound care center on Tuesday of next week, call for appointment time) Dom Villagomez DO [Primary Care Provider] - Within 2 Weeks Yoan Vee MD [STAFF PHYSICIAN] - Within 2 Weeks Disposition Disposition (needs filled in before D/C Order can be placed): Home Health Service Charges/Coding Visit Charges Inpatient E&M: 94237 Disch Hosp
[2021-11-21 11:08] VITALS: BP 123/70; PULSE 82; RESP 18; TEMP 36.9; O2SAT 99
[2021-11-21 12:26] LABS: Bedside Glucose 274 mg/dL (74-106)
== END 2021-11-21 12:58 | disposition home health service (06) | DRG 853 ==
LOC: ED 17:48 → SDC 17:58 → AC 17:59 → SDC 18:49 → ICU 18:49 → PCU 11-16 12:31
PROVIDERS: Anesthesiology; Nurse Practitioner Family; Podiatrist; Admitting Provider Internal Medicine; Emergency Provider Emergency Medicine; PCP Student in an Organized Health Care Education/Training Program
PROC: 0J9R0ZZ Drainage of Left Foot Subcutaneous Tissue and Fascia, Open Approach (ICD-10-PCS; principal; 2021-11-14 19:30)
PROC: 0QBM0ZZ Excision of Left Tarsal, Open Approach (ICD-10-PCS; principal; 2021-11-17 12:45)
DX: A41.9 Sepsis, unspecified organism (principal); N17.0 Acute kidney failure with tubular necrosis; R65.21 Severe sepsis with septic shock; A48.0 Gas gangrene; E87.1 Hypo-osmolality and hyponatremia; D62 Acute posthemorrhagic anemia; Z68.41 Body mass index [BMI] 40.0-44.9, adult; M86.9 Osteomyelitis, unspecified; E87.2 Acidosis; L02.416 Cutaneous abscess of left lower limb; L02.612 Cutaneous abscess of left foot; E11.610 Type 2 diabetes mellitus with diabetic neuropathic arthropathy; E11.42 Type 2 diabetes mellitus with diabetic polyneuropathy; E11.65 Type 2 diabetes mellitus with hyperglycemia; L97.524 Non-pressure chronic ulcer of other part of left foot with necrosis of bone; E11.628 Type 2 diabetes mellitus with other skin complications; E11.621 Type 2 diabetes mellitus with foot ulcer; E66.01 Morbid (severe) obesity due to excess calories; E11.69 Type 2 diabetes mellitus with other specified complication; Z79.4 Long term (current) use of insulin; I10 Essential (primary) hypertension; E86.0 Dehydration; E78.5 Hyperlipidemia, unspecified; B95.2 Enterococcus as the cause of diseases classified elsewhere; Z79.84 Long term (current) use of oral hypoglycemic drugs
CPT/HCPCS: 36415; 36569; 71045; 73590; 73630; 73718; 80048; 80053; 80202; 81001; 82962; 83036; 83605; 85014; 85018; 85025; 85610; 85652; 85730; 86140; 86850; 86900; 86901; 87015; 87040; 87070; 87075; 87077; 87086; 87088; 87102; 87116; 87149; 87176; 87186; 87205; 87206; 87640; 87811; 88305; 88307; 88311; 93005; 97110; 97116; 97162; 97166; 97530; 97535; 97802; 99285; J2185; J7030; J7040; J7050; J7120; A4216; J2405

== ENCOUNTER → 2021-11-24 | Outpatient (CLI) | payer BC, SELFPAY ==
[2021-11-24 12:39] VITALS: BP 107/55; PULSE 91; RESP 16; TEMP 35.9; O2SAT 97; BMI 41.8
== END | disposition home or self-care (01) ==
LOC: MEDOUTP 12:22
PROVIDERS: PCP Student in an Organized Health Care Education/Training Program; Referring Provider Internal Medicine Infectious Disease; Visit Provider Internal Medicine Infectious Disease
DX: Z79.899 Other long term (current) drug therapy (principal)
CPT/HCPCS: A4216

== ENCOUNTER 2021-12-01 10:45 | Outpatient (RCR) | payer BC, SELFPAY ==
[2021-11-24 10:36] VITALS: BP 125/71; PULSE 102; RESP 16; TEMP 36; BMI 41.8
--- NOTE | 2021-11-24 11:50 | HP.PCM_ITS ---
History of Present Illness Date of Service: 11/24/21 Progress of Wound: This 41-year-old male presents to clinic with a left foot ulceration, he was just discharged from the hospital on 11/21/2021 after he had suffered a severe left lower extremity gas infection which extended down to the level of midfoot bone and had him in a state of severe sepsis with positive blood cultures. He underwent emergent incision and drainage on 11/14/2021 with repeat debridement on 11/17/2021. He is being treated by inf tious disease for a severe left foot infection with IV vancomycin and ertapenem for the next 6 weeks. Since being discharged from the hospital he has been having home health care changes dressing every 3 days with reapplication of a wound VAC. He denies any fever, chills, nausea, vomiting, chest pain, shortness of breath at this time. He has been compliant with treatment thus far and is significantly improved from initial examination on 11/14/2021. His most recent A1c was in the hospital at was noted to be 6.6. Patient previously was significantly poorly controlled but [place] controlled himself after he had suffered a severe right lower extremity infection which required multiple incision and drainages HBO treatment and long-term IV antibiotics. 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 [facility] Medical History Diabetes Home Medications Jardiance 25 mg PO DAILY 11/14/21 [History Last Taken 11/14/21] lisinopril 10 mg PO DAILY 11/14/21 [History Last Taken 11/14/21] metformin 1,000 mg PO BID 11/14/21 [History Last Taken 11/14/21] pravastatin 40 mg PO QHS 11/14/21 [History Last Taken 11/13/21] ertapenem [Invanz] 1 g IV Q24H #39 ea 11/19/21 [Rx Last Taken Unknown] vancomycin 1.25 g IV Q12H #78 ea 11/19/21 [Rx Last Taken Unknown] tnqjy-whyt-TvAKR-vvnikv-rw-lit [Galo (with collagen)] 1 packet PO BIDCM #30 ea 11/21/21 [Rx Last Taken Unknown] ascorbic acid (vitamin C) [Vitamin C] 500 mg PO DAILY 11/24/21 [History Last Taken Unknown] calcium citrate [Citracal] mg PO DAILY 11/24/21 [History Last Taken Unknown] multivitamin 1 tab PO DAILY 11/24/21 [History Last Taken Unknown] omega-3 fatty acids [Fish Oil] 2 cap PO DAILY 11/24/21 [History Last Taken Unknown] Allergy/AdvReac Type Severity Reaction Status Date / Time Penicillins [PCN] Allergy Rash Verified 11/24/21 10:52 Social History Smoking Status: Never smoker ROS Constitutional Constitutional: Denies systems reviewed and no addt'l complaints, except as documented, as per HPI, anorexia, body ache(s), change in weight, chills, daytime sleepiness, difficulty sleeping, excessive sweating, fatigue, fever(s), frequent falls, headache(s), increased appetite, lethargy, malaise, night sweats, poor appetite, snoring, stops breathing during sleep, weakness, weight gain, weight loss or other Eyes Eyes: Denies systems reviewed and no addt'l complaints, except as documented, as per HPI, none, acute decrease in peripheral vision, blindness, blind spots, bloody eye, blurry vision, burning, change in eye color, change in vision, decreased night vision, diplopia, discharge from eye(s), discongugate gaze, double vision, dry eyes, erythema, excessive blinking, exophthalmos, eye pain, floaters, foreign body, halo effect, irritation, itchy eyes, loss of central vision, loss of peripheral vision, loss of vision, miosis, mydriasis, numbness, nystagmus, other visual disturbances, periorbital itching, photophobia, ptosis, puffy eyes, requires corrective lenses, seeing flashes, spots in vision, sunken eyes, tearing, tunnel vision or other ENT HEENT: Denies systems reviewed and no addt'l complaints, except as documented, as per HPI, none, abnormal hearing, bleeding gums, change in voice, dental pain, disequillibrium, dizziness, dry mouth, dysphagia, ear discharge, ear pain, epistaxis, facial pain, foreign body in nose, halitosis, headache(s), hearing loss, hoarseness, lip swelling, loss taste/smell, mouth lesions, mouth pain, mucositis, nasal congestion, nasal discharge, nasal obstruction, nasal trauma, neck mass, neck pain, nose pain, odynophagia, otalgia, post nasal drip, rhinorrhea, sinus pain, sinus pressure, sore throat, throat swelling, tinnitus, tongue swelling, vertigo or other Cardiovascular Cardiovascular: Denies systems reviewed and no addt'l complaints, except as documented, as per HPI, none, abdominal bloating, abdominal edema, abdominal pain, arrhythmia on telemetry, bluish discoloration of hand/feet, chest pain, chest pain at rest, chest pain with activity, claudication, clubbing, cold extremities, cyanosis, diaphoresis, dizziness, dyspnea, dyspnea at rest, dyspnea on exertion, easily tiring during activity, edema, erythema on extremities, fatigue, flutter in chest, hypertension, irregular heart rhythm, leg edema, leg ulcers, lightheadedness, nausea, numbness in extremities, orthopnea, orthostatic symptoms, pale monge skin, palpitations, paroxysmal nocturnal dyspnea, pedal edema, periorbital swelling, pounding heartbeat, racing heartbeat, radiating jaw, neck or arm pain, rapid heart rate, slow heart rate, syncope, tachypnea, vomiting, weakness in extremities, weight gain or other Respiratory/Chest Respiratory/Chest: Denies systems reviewed and no addt'l complaints, except as documented, as per HPI, none, change in mental status, change in phlegm color, chest congestion, chest tightness, cough, difficulty clearing secretions, dry cough, dusky skin, dyspnea, dyspnea on exertion, excessive phlegm production, hemoptysis, hoarseness, inability to speak, mouth breathing, nail bed cyanosis, non-rest sleep EDS, pain on inspiration, pain with cough, pale skin, corinna-oral cyanosis, portable oxygen @ home, productive cough, red skin, restlessness, shortness of breath at rest, shortness of breath with exertion, snoring, stridor, tachypnea, wheezing, witnessed apneas, breast mass, breast pain, breast skin changes, breast swelling, change in breast shape, nipple discharge or other Vital Signs Vital Signs Vital Signs: 11/24/21 10:36 Temperature 96.8 F L Temperature Source Temporal Pulse Rate 102 H Respiratory Rate 16 Blood Pressure 125/71 H Blood Pressure Mean 89 Blood Pressure Source Monitor Blood Pressure Position Sitting Blood Pressure Location Left Arm Oxygen Delivery Method Room Air Weight Weight: 136.078 kg Body Mass Index (BMI) 41.8 Physical Exam Narrative Patient is alert oriented to person place and time. Patient is maintaining a nonweightbearing status to his left lower extremity with a wheelchair. Vascular: Left lower extremity vascular examination deferred there is brisk capillary fill time to the lesser digits on the left side. Neurovascular status intact right lower extremity. Neurologic: Light touch protective sensation absent to bilateral feet. Dermatologic: There is an extensive dorsal midfoot wound which extends down to the level of tendon there is noted to be desiccated extensor hallucis longus tendon and intact tibialis anterior tendon along the medial aspect of the wound. Patient demonstrates a mixed granular and necrotic base with moderate serosanguineous drainage. There is resolving periwound erythema and edema. No residual crepitus or purulent drainage noted at this time. There is no to be a full-thickness plantar foot wound extending down the level of tendon which is starting to fill in, there is mild periwound maceration secondary to wound VAC application. Wound demonstrates resolving signs of infection at this time. Pre and postdebridement measurements documented nursing notes. Musculoskeletal: There is noted to be a plantar lateral convexity of the left foot secondary to Charcot deformity at the level of the midfoot. There is noted to be a varus deformity of the right ankle secondary to Charcot foot and multiple incision and drainages on that side. Muscular strength is intact to bilateral lower extremity compartments. Debridement Note Debridement Note Post-Debridement Measurements and Additional Note: Post-Debridement Measurements/Treatment - Nurse 1 - General Ulcer Assessment Start: 11/24/21 10:32 Freq: Status: Active Protocol: LOWEXT Activity Type Activity Date Activity User E-Sign Co-Sign Detail Recorded Client Recorded Date Recorded By Document 11/24/21 10:36 [facility] [id number] 11/24/21 10:50 [facility] 11/24/21 10:36 - Today's Visit Information Type of service Initial Visit Arrival Mode Wheelchair Transfer Assistance Other Transfer Assist (Other) STAND BY Accompanied by DAD; MOM IN [facility] Patient Identification Verified (Name & Yes ) Patient Requires Transmission-Based No Precautions Height and Weight Height 5 ft 11 in Weight 136.078 kg Weight in Pounds 300.0 lbs Weight Measurement Method Estimated by Patient Body Mass Index (BMI) 41.8 BMI Classification Obese BSA - Johnnie 2.51 Vital Signs Temperature (97.8 F-99.1 F) 96.8 F L Temperature Source Temporal Pulse Rate (60-100) 102 H Pulse Location Monitor Respiratory Rate (12-18) 16 Respiratory rate source Observation Oxygen Delivery Method Room Air Blood Pressure (90/60-120/80) 125/71 H Blood Pressure Mean 89 Source Monitor Position Sitting Blood Pressure Location Left Arm Pain Scale: 0-10 Numeric Is Patient Pain Free? Yes Communication Assessment Preferred language Hebrew Operations Tech Required No Able to Read Yes Able to Write Yes Communication Tools None Right Hearing Abillity Normal Left Hearing Abillity Normal Visual Assistive Devices Glasses Teaching Assessment Preferences Verbal,Written, Audio/Visual, Demonstration Barriers to Learning None Readiness To Learn Excellent Willingness to Engage in Self Management High Activies Readiness to Engage in Self Management High Activities Anxiety Level Calm Cooperation Cooperative Perception Coherent Interest in Health Problem Asks Questions Education Importance Acknowledges Need Does Patient Smoke tobacco or other No substances Smoking Status Never smoker Is Patient Diabetic Yes Functional Assessment Recent Decline in Ability to Perform Ambulation, Transferring Culture/Restoration/Bit Grinder Cultural/Restoration Needs that may affect No Treatment Plan Teaching: Wound Center *Welcome to the Wound Center -Person Taught Patient,Family -Teaching Method Discussion -Response to teaching Verbalize understanding Welcome to the Wound Care Center English HERNANDEZ - Nurse 1 - General Ulcer Measurement Start: 11/24/21 10:32 Freq: Status: Active Protocol: Activity Type Activity Date Activity User E-Sign Co-Sign Detail Recorded Client Recorded Date Recorded By Document 11/24/21 10:36 [facility] [id number] 11/24/21 10:50 [facility] 11/24/21 10:36 Wound Center Nurse 1 #2- L PLANTAR FOOT POST OP -Combined with other wound No -Current Size (cm) - Length 2.5 -Current Size (cm) - Width 6.2 -Current Size (cm) - Depth 2.8 -Total Square Cm 15.50 -Date of Last Picture (Recall this 11/24/21 field) -Photo Taken Yes -Epithelialization None Present -Tunneling No -Undermining/Tunneling No -Circular Undermining No -Exudate Amt Large -Exudate Type Serosanguineous -Wound Margin Distinct, Outline Attached -Granulation Amt Medium (34-66%) -Granulation Quality Red -Slough/Fibrin Yes -Necrosis Amt Medium (34-66%) -Necrotic Tissue Type Adherent Slough -Texture (Corinna-wound Skin Appearance) Assessed -Moisture ([place]in[place]-wound Skin Appearance) Assessed, Maceration -Color ([place]in[place]-wound Skin Appearance) Assessed,Palor -Temperature ([place]in[place]-wound Skin No Abnormality Appearance) (Pt Warm) -Tenderness on Palpation ([place]in[place]-wound No Skin Appearance) -Ulcer Cleansing Soap and Water -Foul Odor after Cleansing No -Anesthetic Used 4% Lidocaine Solution #1- L DORSAL FOOT POST OP -Combined with other wound No -Current Size (cm) - Length 9.6 -Current Size (cm) - Width 6.1 -Current Size (cm) - Depth 1.0 -Total Square Cm 58.56 -Date of Last Picture (Recall this 11/24/21 field) -Photo Taken Yes -Epithelialization None Present -Tunneling No -Undermining/Tunneling No -Circular Undermining No -Exudate Amt Medium -Exudate Type Serosanguineous -Wound Margin Distinct, Outline Attached -Granulation Amt Small (1-33%) -Granulation Quality Red -Slough/Fibrin Yes -Necrosis Amt Large (67-100%) -Necrotic Tissue Type Adherent Slough -Structure Exposed Tendon -Texture (Corinna-wound Skin Appearance) Assessed -Moisture ([place]in[place]-wound Skin Appearance) Assessed -Color (Corinna-wound Skin Appearance) Assessed -Temperature ([place]in[place]-wound Skin No Abnormality Appearance) (Pt Warm) -Tenderness on Palpation (Corin[place]-wound No Skin Appearance) -Ulcer Cleansing Soap and Water -Foul Odor after Cleansing No -Anesthetic Used 4% Lidocaine Solution Lower Limb Edema Present Yes Right Calf (cm) 42.2 Right Ankle (cm) 29.5 Left Calf (cm) 44.6 Left Ankle (cm) 29.5 WC - Nurse 2 - General Ulcer CM Notes Start: 11/24/21 10:32 Freq: Status: Active Protocol: Activity Type Activity Date Activity User E-Sign Co-Sign Detail Recorded Client Recorded Date Recorded By Document 11/24/21 11:13 [id number] 11/24/21 11:24 11/24/21 11:13 Wound Center Nurse 2 #2- L PLANTAR FOOT POST OP -Time 11:19 -Correct Patient Yes -Correct Side, Site, Position Yes -Correct Procedure Yes -Procedure Performed Yes -Type of Procedure Debridement -Clinical Debridement Muscle / Fascia -Tissue Removed Tendon -Post Debridement (cm) - Length 2.5 -Post Debridement (cm) - Width 6.3 -Post Debridement (cm) - Depth 2.8 -Total Square (Post) (cm) 15.75 -Area of Debridement (cm) - Length 2.5 -Area of Debridement (cm) - Width 6.3 -Total Square (Area) (cm) 15.75 -Tunneling No -Undermining/Tunneling No -Circular Undermining No -Wound/Ulcer Outcome Not Healed -Ulcer Cleansing Rinsed/ Irrigated with Saline -Foul Odor after Cleansing No -Bioengineered Tissue No -Bleeding Controlled with Pressure -Treatment Response Procedure Tolerated Well -Offloading No -Assistive Device(s) Wheelchair -Debridement - Muscle / Fascia, 1st No 20sq cm #1- L DORSAL FOOT POST OP -Time 11:20 -Correct Patient Yes -Correct Side, Site, Position Yes -Correct Procedure Yes -Procedure Performed Yes -Type of Procedure Debridement -Clinical Debridement Muscle / Fascia -Tissue Removed Tendon -Post Debridement (cm) - Length 9.6 -Post Debridement (cm) - Width 6.2 -Post Debridement (cm) - Depth 1.0 -Total Square (Post) (cm) 59.52 -Area of Debridement (cm) - Length 9.6 -Area of Debridement (cm) - Width 6.2 -Total Square (Area) (cm) 59.52 -Tunneling No -Undermining/Tunneling No -Circular Undermining No -Wound/Ulcer Outcome Not Healed -Ulcer Cleansing Rinsed/ Irrigated with Saline -Foul Odor after Cleansing No -Bioengineered Tissue No -Bleeding Controlled with Pressure -Treatment Response Procedure Tolerated Well -Offloading No -Assistive Device(s) Wheelchair -Debridement - Muscle / Fascia, 1st Yes 20sq cm -Debridement, Muscle/Fascia, ea addt'l 3 20sq cm or part thereof Pain Scale: 0-10 Numeric Is Patient Pain Free? 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 Patient's left foot wound appears significantly improved since discharge. 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 This is being managed by infectious disease. He is being treated with a wound VAC to left lower extremity along with nonweightbearing. The left foot wound was debrided down to the level of tendon the EHL tendon was excised this performed combination of 5 mm dermal curette as well as pickups and dissecting scissors. This was done to the dorsal and plantar foot wound. No anesthesia required due to neuropathy. Hemostasis obtained with light compression compression. Patient tolerated procedure well. Oral consent was obtained. Pre and postdebridement measurements document nursing notes. Patient will proceed with wound VAC dressing changes 3 times a week twice by home health care on and Saturdays and once in our clinic on Tuesdays. As signs of infection continues to improve and the wound continues to fill and we will continue the wound VAC until we can apply advanced wound care products such as TheraSkin. Patient is a well-controlled diabetic at this point and only had some hyper glycemia in the hospital secondary to severe left lower extremity infection. However he is systemically stable at this time with vital signs intact and resolution of his constitutional symptoms. I will continue to walk to keep a close eye on the patient and see him weekly in the wound care center as he is high risk for below the knee amputation or worsening infection that could be life threatening. He will contact us if he notes any systemic or local signs of infection that are worsening. (2) 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 muscle: CODE(S): L97.523 - 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 muscle (3) Charcot arthropathy of midfoot: CODE(S): M14.679 - Charcot's joint, unspecified ankle and foot (4) Osteomyelitis: CODE(S): M86.9 - Osteomyelitis, unspecified QUALIFIERS: Osteomyelitis type: other acute Osteomyelitis location: foot Laterality: left Qualified Code(s): M86.172 - Other acute osteomyelitis, left ankle and foot (5) Cellulitis: CODE(S): L03.90 - Cellulitis, unspecified QUALIFIERS: Site of cellulitis: extremity Site of cellulitis of extremity: lower extremity Laterality: left Qualified Code(s): L03.116 - Cellulitis of left lower limb
[2021-12-01 11:02] VITALS: BP 112/67; PULSE 107; RESP 16; TEMP 36.1; BMI 41.8
--- NOTE | 2021-12-01 12:19 | PN.PCM_ITS ---
History of Present Illness Date of Service: 12/01/21 Progress of Wound: This 41-year-old male presents to clinic with a left foot ulceration, he was just discharged from the hospital on 11/21/2021 after he had suffered a severe left lower extremity gas infection which extended down to the level of midfoot bone and had him in a state of severe sepsis with positive blood cultures. He underwent emergent incision and drainage on 11/14/2021 with repeat debridement on 11/17/2021. He is being treated by inf tious disease for a severe left foot infection with IV vancomycin and ertapenem for the next 6 weeks. Since being discharged from the hospital he has been having home health care changes dressing every 3 days with reapplication of a wound VAC. He denies any fever, chills, nausea, vomiting, chest pain, shortness of breath at this time. He has been compliant with treatment thus far and is significantly improved from initial examination on 11/14/2021. His most recent A1c was in the hospital at was noted to be 6.6. Patient previously was significantly poorly controlled but [place] controlled himself after he had suffered a severe right lower extremity infection which required multiple incision and drainages HBO treatment and long-term IV antibiotics. 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 Patient has no new complaints and notes significant improvement in his left foot ulceration at this time. Objective Data Objective Data Vital Signs: Vital Signs Temp Pulse Resp BP 97 F L 107 H 16 112/67 12/01/21 11:02 12/01/21 11:02 12/01/21 11:02 12/01/21 11:02 Oxygen Delivery Method Room Air Weight: 136.078 kg Body Mass Index (BMI) 41.8 Physical Exam Narrative Patient is alert oriented to person place and time. Patient is maintaining a nonweightbearing status to his left lower extremity with a wheelchair. Vascular: Left lower extremity vascular examination deferred there is brisk capillary fill time to the lesser digits on the left side. Neurovascular status intact right lower extremity. Neurologic: Light touch protective sensation absent to bilateral feet. Dermatologic: There is an extensive dorsal midfoot wound which extends down to the level of tendon there is noted to be desiccated extensor hallucis longus tendon and intact tibialis anterior tendon along the medial aspect of the wound. Patient demonstrates a predominantly granular wound base which is significantly improved since the previous visit to the dorsal and plantar left foot. There is approximately 10% fibronecrotic areas with exposed tibialis anterior tendon to the dorsal foot. There is resolving periwound erythema and edema. No residual crepitus or purulent drainage noted at this time. There is no to be a full- thickness plantar foot wound extending down the level of tendon which is starting to fill in, there is resolved periwound maceration. Wound demonstrates resolving signs of infection at this time. Pre and postdebridement measurements documented nursing notes. Musculoskeletal: There is noted to be a plantar lateral convexity of the left foot secondary to Charcot deformity at the level of the midfoot. There is noted to be a varus deformity of the right ankle secondary to Charcot foot and multiple incision and drainages on that side. Muscular strength is intact to bilateral lower extremity compartments. Debridement Note Debridement Note Post-Debridement Measurements and Additional Note: Post-Debridement Measurements/Treatment - Nurse 1 - General Ulcer Assessment Start: 11/24/21 10:32 Freq: Status: Active Protocol: .LOWEXT Activity Type Activity Date Activity User E-Sign Co-Sign Detail Recorded Client Recorded Date Recorded By Document 11/24/21 10:36 [facility] [id number] 11/24/21 10:50 [facility] Document 12/01/21 11:02 [facility] [id number] 12/01/21 11:14 [facility] 11/24/21 12/01/21 10:36 11:02 - Today's Visit Information Type of service Initial Visit Follow-up Visit (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 ) Arrival Mode Wheelchair Wheelchair Transfer Assistance Other Other Transfer Assist (Other) STAND BY stand by Accompanied by DAD; MOM IN dad ERMA Patient Identification Verified (Name & Yes Yes ) Patient Requires Transmission-Based No No Precautions Finger Stick Blood Sugar(mg/dl) (if 101 indicated): Blood Sugar Stated by Patient Height and Weight Height 5 ft 11 in Weight 136.078 kg Weight in Pounds 300.0 lbs Weight Measurement Method Estimated by Patient Body Mass Index (BMI) 41.8 41.8 BMI Classification Obese Obese BSA - Johnnie 2.51 Vital Signs Temperature (97.8 F-99.1 F) 96.8 F L 97 F L Temperature Source Temporal Temporal Pulse Rate (60-100) 102 H 107 H Pulse Location Monitor Monitor Respiratory Rate (12-18) 16 16 Respiratory rate source Observation Observation Oxygen Delivery Method Room Air Room Air Blood Pressure (90/60-120/80) 125/71 H 112/67 Blood Pressure Mean (mm Hg) 89 82 Source Monitor Monitor Position Sitting Sitting Blood Pressure Location Left Arm Left Arm History Since Last Visit- (Skip if this is Patient's initial visit) Have you changed medications since your No last visit? Any new allergies or adverse reactions No Had a fall/change in ADL's that may No increase risk of falls Signs or symptoms of abuse and/or No neglect since last visit Have you been in the hospital since your No last visit? Has dressing in place as prescribed Yes Has offloadiing in place as prescribed Yes Experienced any changes in pain level or No management Pain Scale: 0-10 Numeric Is Patient Pain Free? Yes Yes Communication Assessment Preferred language Divehi Line Repairer Required No Able to Read Yes Able to Write Yes Communication Tools None Right Hearing Abillity Normal Left Hearing Abillity Normal Visual Assistive Devices Glasses Teaching Assessment Preferences Verbal,Written, Audio/Visual, Demonstration Barriers to Learning None Readiness To Learn Excellent Willingness to Engage in Self Management High Activies Readiness to Engage in Self Management High Activities Anxiety Level Calm Cooperation Cooperative Perception Coherent Interest in Health Problem Asks Questions Education Importance Acknowledges Need Does Patient Smoke tobacco or other No substances Smoking Status Never smoker Is Patient Diabetic Yes Functional Assessment Recent Decline in Ability to Perform Ambulation, Transferring 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 Cultural/Buddhist Needs that may affect No Treatment Plan Teaching: Wound Center *Welcome to the Wound Center -Person Taught Patient,Family -Teaching Method Discussion -Response to teaching Verbalize understanding Welcome to the Wound Care Center English HERNANDEZ - Nurse 1 - General Ulcer Measurement Start: 11/24/21 10:32 Freq: Status: Active Protocol: Activity Type Activity Date Activity User E-Sign Co-Sign Detail Recorded Client Recorded Date Recorded By Document 11/24/21 10:36 [facility] [id number] 11/24/21 10:50 BM Document 12/01/21 11:02 [facility] [id number] 12/01/21 11:14 BMF 11/24/21 12/01/21 10:36 11:02 Wound Center Nurse 1 #2- L PLANTAR FOOT POST OP -Combined with other wound No No -Current Size (cm) - Length 2.5 2 -Current Size (cm) - Width 6.2 5.8 -Current Size (cm) - Depth 2.8 2 -Total Square Cm 15.50 11.6 -Date of Last Picture (Recall this 11/24/21 field) -Photo Taken Yes No -Epithelialization None Present Small 1-33% -Tunneling No No -Undermining/Tunneling No No -Circular Undermining No No -Exudate Amt Large Medium -Exudate Type Serosanguineous Serosanguineous -Wound Margin Distinct, Distinct, Outline Outline Attached Attached -Granulation Amt Medium (34-66%) Large (67-100%) -Granulation Quality Red Red -Slough/Fibrin Yes Yes -Necrosis Amt Medium (34-66%) Small (1-33%) -Necrotic Tissue Type Adherent Slough Adherent Slough -Texture ([place]-wound Skin Appearance) Assessed Assessed, Scarring -Moisture ([place]-wound Skin Appearance) Assessed, Assessed Maceration -Color ([place]-wound Skin Appearance) Assessed,Palor Assessed,Palor -Temperature ([place]-wound Skin No Abnormality No Abnormality Appearance) (Pt Warm) (Pt Warm) -Tenderness on Palpation ([place]-wound No No Skin Appearance) -Ulcer Cleansing Soap and Water Soap and Water -Foul Odor after Cleansing No No -Anesthetic Used 4% Lidocaine 4% Lidocaine Solution Solution #1- L DORSAL FOOT POST OP -Combined with other wound No No -Current Size (cm) - Length 9.6 9.2 -Current Size (cm) - Width 6.1 6.4 -Current Size (cm) - Depth 1.0 0.4 -Total Square Cm 58.56 58.88 -Date of Last Picture (Recall this 11/24/21 field) -Photo Taken Yes No -Epithelialization None Present Small 1-33% -Tunneling No No -Undermining/Tunneling No No -Circular Undermining No No -Exudate Amt Medium Medium -Exudate Type Serosanguineous Serosanguineous -Wound Margin Distinct, Distinct, Outline Outline Attached Attached -Granulation Amt Small (1-33%) Large (67-100%) -Granulation Quality Red Red -Slough/Fibrin Yes Yes -Necrosis Amt Large (67-100%) Small (1-33%) -Necrotic Tissue Type Adherent Slough Adherent Slough -Structure Exposed Tendon Tendon -Texture ([place]-wound Skin Appearance) Assessed Assessed -Moisture ([place]-wound Skin Appearance) Assessed Assessed, Maceration -Color ([place]-wound Skin Appearance) Assessed Assessed,Palor -Temperature ([place]-wound Skin No Abnormality No Abnormality Appearance) (Pt Warm) (Pt Warm) -Tenderness on Palpation ([place]-wound No No Skin Appearance) -Ulcer Cleansing Soap and Water Soap and Water -Foul Odor after Cleansing No No -Anesthetic Used 4% Lidocaine 4% Lidocaine Solution Solution Lower Limb Edema Present Yes Right Calf (cm) 42.2 Right Ankle (cm) 29.5 Left Calf (cm) 44.6 Left Ankle (cm) 29.5 WC - Nurse 2 - General Ulcer CM Notes Start: 11/24/21 10:32 Freq: Status: Active Protocol: Activity Type Activity Date Activity User E-Sign Co-Sign Detail Recorded Client Recorded Date Recorded By Document 11/24/21 11:13 [id number] 11/24/21 11:24 Document 12/01/21 11:41 [id number] 12/01/21 11:47 11/24/21 12/01/21 11:13 11:41 Wound Center Nurse 2 #2- L PLANTAR FOOT POST OP -Time 11:19 11:42 -Correct Patient Yes Yes -Correct Side, Site, Position Yes Yes -Correct Procedure Yes Yes -Procedure Performed Yes Yes -Type of Procedure Debridement Debridement -Clinical Debridement Muscle / Fascia Muscle / Fascia -Tissue Removed Tendon Muscle -Post Debridement (cm) - Length 2.5 2.1 -Post Debridement (cm) - Width 6.3 5.8 -Post Debridement (cm) - Depth 2.8 2.0 -Total Square (Post) (cm) 15.75 12.18 -Area of Debridement (cm) - Length 2.5 2.1 -Area of Debridement (cm) - Width 6.3 5.8 -Total Square (Area) (cm) 15.75 12.18 -Tunneling No No -Undermining/Tunneling No No -Circular Undermining No No -Wound/Ulcer Outcome Not Healed Not Healed -Ulcer Cleansing Rinsed/ Rinsed/ Irrigated with Irrigated with Saline Saline -Foul Odor after Cleansing No No -Bioengineered Tissue No No -Bleeding Controlled with Pressure Pressure -Treatment Response Procedure Procedure Tolerated Well Tolerated Well -Offloading No Yes -Type of Offloading Surgical Shoe -Assistive Device(s) Wheelchair -Debridement - Muscle / Fascia, 1st No No 20sq cm #1- L DORSAL FOOT POST OP -Time 11:20 11:42 -Correct Patient Yes Yes -Correct Side, Site, Position Yes Yes -Correct Procedure Yes Yes -Procedure Performed Yes Yes -Type of Procedure Debridement Debridement -Clinical Debridement Muscle / Fascia Muscle / Fascia -Tissue Removed Tendon Muscle -Post Debridement (cm) - Length 9.6 9.2 -Post Debridement (cm) - Width 6.2 6.5 -Post Debridement (cm) - Depth 1.0 1.5 -Total Square (Post) (cm) 59.52 59.80 -Area of Debridement (cm) - Length 9.6 9.2 -Area of Debridement (cm) - Width 6.2 6.5 -Total Square (Area) (cm) 59.52 59.80 -Tunneling No No -Undermining/Tunneling No No -Circular Undermining No No -Wound/Ulcer Outcome Not Healed Not Healed -Ulcer Cleansing Rinsed/ Rinsed/ Irrigated with Irrigated with Saline Saline -Foul Odor after Cleansing No No -Bioengineered Tissue No No -Bleeding Controlled with Pressure Pressure -Treatment Response Procedure Procedure Tolerated Well Tolerated Well -Offloading No Yes -Type of Offloading Surgical Shoe -Assistive Device(s) Wheelchair -Debridement - Muscle / Fascia, 1st Yes Yes 20sq cm -Debridement, Muscle/Fascia, ea addt'l 3 3 20sq cm or part thereof Pain Scale: 0-10 Numeric Is Patient Pain Free? Yes Yes WC - Nurse 3 - General Ulcer D/C NN Start: 11/24/21 10:32 Freq: Status: Active Protocol: Activity Type Activity Date Activity User E-Sign Co-Sign Detail Recorded Client Recorded Date Recorded By Document 11/24/21 12:05 ASHISH [id number] 11/24/21 12:07 AK Edit Result 11/24/21 12:05 AK (1) [id number] 11/24/21 13:43 PL Edit Result 11/24/21 12:05 AK (2) [id number] 11/25/21 07:02 PL Document 12/01/21 11:56 AK [id number] 12/01/21 12:01 AK (1) #2- L PLANTAR FOOT POST OP - NPWT Application Charge NPWT > 50 sq cm ($ => NPWT & Debridement ) => (nc) (2) #1- L DORSAL FOOT POST OP - NPWT Application Charge NPWT > 50 sq cm ($ => NPWT & Debridement ) => (nc) 11/24/21 12/01/21 12:05 11:56 Wound Care Nurse 3 #2- L PLANTAR FOOT POST OP -Ulcer Cleansing Rinsed/ Rinsed/ Irrigated with Irrigated with Saline Saline -Foul Odor after Cleansing No -Negative Pressure Wound Therapy Continue Continue -Setting (mmHg) 150 150 -Negative Pressure is Continuous Continuous -Primary Dressing Covered/Secured with Dry Gauze & Roll Gauze, Secured with Tape -NPWT Application Charge NPWT & NPWT & Debridement (nc Debridement (nc ) ) #1- L DORSAL FOOT POST OP -Ulcer Cleansing Rinsed/ Rinsed/ Irrigated with Irrigated with Saline Saline -Foul Odor after Cleansing No No -Negative Pressure Wound Therapy N/A Continue -Setting (mmHg) 150 -Negative Pressure is Continuous -Primary Dressing Covered/Secured with Dry Gauze & Roll Gauze, Secured with Tape -NPWT Application Charge NPWT & NPWT - Multiple Debridement (nc Locations ) Pain Scale: 0-10 Numeric Is Patient Pain Free? Yes Yes WC - Visit Discharge Discharge Condition Stable Stable Ambulatory Status Wheelchair Wheelchair Transportation Private Auto Private Auto Accompanied by dad dad Medication Reconcilliation completed & Yes Yes provided to patient/care provider Clinical Summary of Care Provided Yes Yes Assessment/Plan Assessment/Plan (1) Type 2 diabetes mellitus with diabetic polyneuropathy: CODE(S): E11.42 - Type 2 diabetes mellitus with diabetic polyneuropathy QUALIFIERS: Diabetes mellitus penitentiary insulin use: without penitentiary use Qualified Code(s): E11.42 - Type 2 diabetes mellitus with diabetic polyneuropathy PLAN: Patient examined evaluated, all findings jairo with patient in detail. Patient's left foot wound appears significantly improved since discharge. 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 This is being managed by infectious disease. He is being treated with a wound VAC to left lower extremity along with nonweightbearing. The left foot wound was debrided down to the level of tendon the EHL tendon was excised this performed combination of 5 mm dermal curette as well as pickups and dissecting scissors. This was done to the dorsal and plantar foot wound. No anesthesia required due to neuropathy. Hemostasis obtained with light compression compression. Patient tolerated procedure well. Oral consent was obtained. Pre and postdebridement measurements document nursing notes. Patient will proceed with wound VAC dressing changes 3 times a week twice by home health care on and Saturdays and once in our clinic on Tuesdays. The wound is significantly improved at this time, as signs of infection continues to improve and the wound continues to fill and we will continue the wound VAC until we can apply advanced wound care products such as TheraSkin. Patient is a well-controlled diabetic at this point and only had some hyperglycemia in the hospital secondary to severe left lower extremity infection. However he is systemically stable at this time with vital signs intact and resolution of his constitutional symptoms. I will continue to walk to keep a close eye on the patient and see him weekly in the wound care center as he is high risk for below the knee amputation or worsening infection that could be life threatening. He will contact us if he notes any systemic or local signs of infection that are worsening. Patient will proceed with HBO therapy as he had severe gas gangrene infection which extends down the level of bone. Patient was evaluated for this (2) 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 muscle: CODE(S): L97.523 - 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 muscle (3) Charcot arthropathy of midfoot: CODE(S): M14.679 - Charcot's joint, unspecified ankle and foot (4) Osteomyelitis: CODE(S): M86.9 - Osteomyelitis, unspecified QUALIFIERS: Osteomyelitis type: other acute Osteomyelitis location: foot Laterality: left Qualified Code(s): M86.172 - Other acute osteomyelitis, left ankle and foot (5) Cellulitis: CODE(S): L03.90 - Cellulitis, unspecified QUALIFIERS: Site of cellulitis: extremity Site of cellulitis of extremity: lower extremity Laterality: left Qualified Code(s): L03.116 - Cellulitis of left lower limb
--- NOTE | 2021-12-01 13:57 | PCM.WC.HP ---
History of Present Illness Date of Service: 12/01/21 Chief Complaint: Diabetic left foot infection with gas gangrene and osteomyelitis. History of Wound: This is a 41-year-old diabetic white male who presented with fevers, sweats, chills, malaise, and left foot swelling and redness, and found to have a diabetic left foot infection on November 14, 2021. 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 Initial blood cultures were positive. The patient was treated by Dr. Jordi Perkins, podiatric specialist, who performed incision and surgical debridement on the day of admission. Cultures obtained were positive for Enterococcus faecalis and Prevotella bivia. The patient required hospitalization at [facility], where he remained until he was discharged on November 21, 2021. A repeat incision and surgical debridement was performed on November 17, 2021. The Infectious Disease service was consulted, and the patient was started on intravenous antibiotics, and subsequently discharged on intravenous Invanz and vancomycin. The intravenous antibiotics are anticipated to continue for at least 6 weeks. He was discharged with a wound VAC, which continues until the current time, and surgical care related to his left foot continues under the oversight of Dr. Jordi Perkins, podiatric specialist. The patient claims that his diabetes control is generally satisfactory. He has a history of a severe diabetic foot infection in the right foot approximately 6 years ago which required multiple incision and debridement procedures, and the patient subsequently underwent hyperbaric oxygen therapy at that time. Hyperbaric oxygen therapy was administered for 3 months. It appears as though the patient tolerated hyperbaric oxygen therapy in the past, without complaints or complications, and he denies any significant changes in his medical condition since that time. Progress of Wound: This 41-year-old male presents to clinic with a left foot ulceration, he was just discharged from the hospital on 11/21/2021 after he had suffered a severe left lower extremity gas infection which extended down to the level of midfoot bone and had him in a state of severe sepsis with positive blood cultures. He underwent emergent incision and drainage on 11/14/2021 with repeat debridement on 11/17/2021. He is being treated by infectious disease for a severe left foot infection with IV vancomycin and ertapenem for the next 6 weeks. Since being discharged from the hospital he has been having home health care changes dressing every 3 days with reapplication of a wound VAC. He denies any fever, chills, nausea, vomiting, chest pain, shortness of breath at this time. He has been compliant with treatment thus far and is significantly improved from initial examination on 11/14/2021. His most recent A1c was in the hospital at was noted to be 6.6. Patient previously was significantly poorly controlled but [place] controlled himself after he had suffered a severe right lower extremity infection which required multiple incision and drainages HBO treatment and long-term IV antibiotics. 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 Patient has no new complaints and notes significant improvement in his left foot ulceration at this time. [facility] Medical History (Updated 12/01/21 @ 14:[address] Sam Flor MD) Diabetes Gas gangrene of foot Osteomyelitis of ankle or foot, left, acute Type 2 diabetes mellitus with diabetic polyneuropathy Home Medications Jardiance 25 mg PO DAILY 11/14/21 [History Last Taken 11/14/21] lisinopril 10 mg PO DAILY 11/14/21 [History Last Taken 11/14/21] metformin 1,000 mg PO BID 11/14/21 [History Last Taken 11/14/21] pravastatin 40 mg PO QHS 11/14/21 [History Last Taken 11/13/21] ertapenem [Invanz] 1 g IV Q24H #39 ea 11/19/21 [Rx Last Taken Unknown] vancomycin 1.25 g IV Q12H #78 ea 11/19/21 [Rx Last Taken Unknown] lrioo-aojq-KcHHB-qxnnut-fe-tar [Galo (with collagen)] 1 packet PO BIDCM #30 ea 11/21/21 [Rx Last Taken Unknown] ascorbic acid (vitamin C) [Vitamin C] 500 mg PO DAILY 11/24/21 [History Last Taken Unknown] calcium citrate [Citracal] mg PO DAILY 11/24/21 [History Last Taken Unknown] multivitamin 1 tab PO DAILY 11/24/21 [History Last Taken Unknown] omega-3 fatty acids [Fish Oil] 2 cap PO DAILY 11/24/21 [History Last Taken Unknown] Allergy/AdvReac Type Severity Reaction Status Date / Time Penicillins [PCN] Allergy Rash Verified 11/24/21 10:52 Social History Smoking Status: Never smoker ROS ROS Narrative A lengthy review of the patient's past medical history has been undertaken, specifically reviewing each body system as to past problems. It is known that the patient has previously undergone hyperbaric oxygen therapy in the past for a total of 3 months, relative to a diabetic right foot infection. At that time, the patient had no problems or complications. Patient has no history of barotrauma to either ears or lungs. Body systems have been reviewed, including pulmonary, cardiac, genitourinary, neurologic, hematological, endocrinologic, otological, gastrointestinal, immunological, psychological, and other systems. Patient relates no systemic history to suggest any contraindications to hyperbaric oxygen therapy. Vital Signs Vital Signs Vital Signs: 12/01/21 11:02 Temperature 97 F L Temperature Source Temporal Pulse Rate 107 H Respiratory Rate 16 Blood Pressure 112/67 Blood Pressure Mean 82 Blood Pressure Source Monitor Blood Pressure Position Sitting Blood Pressure Location Left Arm Oxygen Delivery Method Room Air Weight Weight: 300 lb Body Mass Index (BMI) 41.8 Physical Exam Const alert, oriented x3, no apparent distress and well nourished Constitutional Narrative: The patient is obese. General Appearance: cooperative, comfortable, well kempt and well developed Orientation / Consciousness: awake, oriented to person, oriented to place and oriented to time HEENT normocephalic and head/scalp atraumatic Head and Scalp: normal to inspection, normocephalic and atraumatic External Ear: external ears normal Eyes PERRL and EOMs intact bilaterally General Eye: normal appearance of both eyes Resp normal respiratory effort, normal air movement, no retractions and no use of accessory muscles Effort and Inspection: able to speak in complete sentences Extremity no calf tenderness Extremity Narrative: Left foot is bandaged. However, it appears to be swollen and edematous. There is slight erythema. The patient's left foot wound(s) are covered by bandages. Patient appears to have a Charcot foot deformity on the left. General Extremity: Negative for clubbing or cyanosis Skin Hair: normal Neuro oriented x3 and CN's II-XII intact bilaterally Sensorium / Orientation: awake, alert, oriented to person, oriented to place and oriented to time Psych Appearance: grossly normal and appropriate Attitude: calm Activity / Motor Behavior: appropriate eye contact Speech: normal speech Mood & Affect: euthymic mood Thought Process: normal thought process Thought Content: normal thought content Attention / Concentration: attention grossly intact Debridement Note Debridement Note No debridement was completed: No debridement was completed today Post-Debridement Measurements and Additional Note: Post-Debridement Measurements/Treatment - Nurse 1 - General Ulcer Assessment Start: 11/24/21 10:32 Freq: Status: Active Protocol: GWEN Activity Type Activity Date Activity User E-Sign Co-Sign Detail Recorded Client Recorded Date Recorded By Document 11/24/21 10:36 [facility] [id number] 11/24/21 10:50 [facility] Document 12/01/21 11:02 [facility] [id number] 12/01/21 11:14 [facility] 11/24/21 12/01/21 10:36 11:02 - Today's Visit Information Type of service Initial Visit Follow-up Visit (Physician/FOREPART RASPER ) Arrival Mode Wheelchair Wheelchair Transfer Assistance Other Other Transfer Assist (Other) STAND BY stand by Accompanied by DAD; MOM IN dad LOBBY Patient Identification Verified (Name & Yes Yes ) Patient Requires Transmission-Based No No Precautions Finger Stick Blood Sugar(mg/dl) (if 101 indicated): Blood Sugar Stated by Patient Height and Weight Height 5 ft 11 in Weight 300 lb Weight in Pounds 300.0 lbs Weight Measurement Method Estimated by Patient Body Mass Index (BMI) 41.8 41.8 BMI Classification Obese Obese BSA - Johnnie 2.51 Vital Signs Temperature (97.8 F-99.1 F) 96.8 F L 97 F L Temperature Source Temporal Temporal Pulse Rate (60-100) 102 H 107 H Pulse Location Monitor Monitor Respiratory Rate (12-18) 16 16 Respiratory rate source Observation Observation Oxygen Delivery Method Room Air Room Air Blood Pressure (90/60-120/80) 125/71 H 112/67 Blood Pressure Mean 89 82 Source Monitor Monitor Position Sitting Sitting Blood Pressure Location Left Arm Left Arm History Since Last Visit- (Skip if this is Patient's initial visit) Have you changed medications since your No last visit? Any new allergies or adverse reactions No Had a fall/change in ADL's that may No increase risk of falls Signs or symptoms of abuse and/or No neglect since last visit Have you been in the hospital since your No last visit? Has dressing in place as prescribed Yes Has offloadiing in place as prescribed Yes Experienced any changes in pain level or No management Pain Scale: 0-10 Numeric Is Patient Pain Free? Yes Yes Communication Assessment Preferred language [place] Citizen Steward/Stewardess Chief Cargo Vessel Required No Able to Read Yes Able to Write Yes Communication Tools None Right Hearing Abillity Normal Left Hearing Abillity Normal Visual Assistive Devices Glasses Teaching Assessment Preferences Verbal,Written, Audio/Visual, Demonstration Barriers to Learning None Readiness To Learn Excellent Willingness to Engage in Self Management High Activies Readiness to Engage in Self Management High Activities Anxiety Level Calm Cooperation Cooperative Perception Coherent Interest in Health Problem Asks Questions Education Importance Acknowledges Need Does Patient Smoke tobacco or other No substances Smoking Status Never smoker Is Patient Diabetic Yes Functional Assessment Recent Decline in Ability to Perform Ambulation, Transferring Culture/Alevism/Assembler Cultural/Alevism Needs that may affect No Treatment Plan Teaching: Wound Center *Welcome to the Wound Center -Person Taught Patient,Family -Teaching Method Discussion -Response to teaching Verbalize understanding Welcome to the Wound Care Center [place] Citizen WC - Nurse 1 - General Ulcer Measurement Start: 11/24/21 10:32 Freq: Status: Active Protocol: Activity Type Activity Date Activity User E-Sign Co-Sign Detail Recorded Client Recorded Date Recorded By Document 11/24/21 10:36 [facility] [id number] 11/24/21 10:50 [facility] Document 12/01/21 11:02 [facility] [id number] 12/01/21 11:14 [facility] 11/24/21 12/01/21 10:36 11:02 Wound Center Nurse 1 #2- L PLANTAR FOOT POST OP -Combined with other wound No No -Current Size (cm) - Length 2.5 2 -Current Size (cm) - Width 6.2 5.8 -Current Size (cm) - Depth 2.8 2 -Total Square Cm 15.50 11.6 -Date of Last Picture (Recall this 11/24/21 field) -Photo Taken Yes No -Epithelialization None Present Small 1-33% -Tunneling No No -Undermining/Tunneling No No -Circular Undermining No No -Exudate Amt Large Medium -Exudate Type Serosanguineous Serosanguineous -Wound Margin Distinct, Distinct, Outline Outline Attached Attached -Granulation Amt Medium (34-66%) Large (67-100%) -Granulation Quality Red Red -Slough/Fibrin Yes Yes -Necrosis Amt Medium (34-66%) Small (1-33%) -Necrotic Tissue Type Adherent Slough Adherent Slough -Texture ([place]-wound Skin Appearance) Assessed Assessed, Scarring -Moisture ([place]-wound Skin Appearance) Assessed, Assessed Maceration -Color ([place]-wound Skin Appearance) Assessed,Palor Assessed,Palor -Temperature ([place]-wound Skin No Abnormality No Abnormality Appearance) (Pt Warm) (Pt Warm) -Tenderness on Palpation ([place]-wound No No Skin Appearance) -Ulcer Cleansing Soap and Water Soap and Water -Foul Odor after Cleansing No No -Anesthetic Used 4% Lidocaine 4% Lidocaine Solution Solution #1- L DORSAL FOOT POST OP -Combined with other wound No No -Current Size (cm) - Length 9.6 9.2 -Current Size (cm) - Width 6.1 6.4 -Current Size (cm) - Depth 1.0 0.4 -Total Square Cm 58.56 58.88 -Date of Last Picture (Recall this 11/24/21 field) -Photo Taken Yes No -Epithelialization None Present Small 1-33% -Tunneling No No -Undermining/Tunneling No No -Circular Undermining No No -Exudate Amt Medium Medium -Exudate Type Serosanguineous Serosanguineous -Wound Margin Distinct, Distinct, Outline Outline Attached Attached -Granulation Amt Small (1-33%) Large (67-100%) -Granulation Quality Red Red -Slough/Fibrin Yes Yes -Necrosis Amt Large (67-100%) Small (1-33%) -Necrotic Tissue Type Adherent Slough Adherent Slough -Structure Exposed Tendon Tendon -Texture ([place]-wound Skin Appearance) Assessed Assessed -Moisture ([place]-wound Skin Appearance) Assessed Assessed, Maceration -Color ([place]-wound Skin Appearance) Assessed Assessed,Palor -Temperature ([place]-wound Skin No Abnormality No Abnormality Appearance) (Pt Warm) (Pt Warm) -Tenderness on Palpation ([place]-wound No No Skin Appearance) -Ulcer Cleansing Soap and Water Soap and Water -Foul Odor after Cleansing No No -Anesthetic Used 4% Lidocaine 4% Lidocaine Solution Solution Lower Limb Edema Present Yes Right Calf (cm) 42.2 Right Ankle (cm) 29.5 Left Calf (cm) 44.6 Left Ankle (cm) 29.5 WC - Nurse 2 - General Ulcer CM Notes Start: 11/24/21 10:32 Freq: Status: Active Protocol: Activity Type Activity Date Activity User E-Sign Co-Sign Detail Recorded Client Recorded Date Recorded By Document 11/24/21 11:13 [id number] 11/24/21 11:24 Document 12/01/21 11:41 [id number] 12/01/21 11:47 11/24/21 12/01/21 11:13 11:41 Wound Center Nurse 2 #2- L PLANTAR FOOT POST OP -Time 11:19 11:42 -Correct Patient Yes Yes -Correct Side, Site, Position Yes Yes -Correct Procedure Yes Yes -Procedure Performed Yes Yes -Type of Procedure Debridement Debridement -Clinical Debridement Muscle / Fascia Muscle / Fascia -Tissue Removed Tendon Muscle -Post Debridement (cm) - Length 2.5 2.1 -Post Debridement (cm) - Width 6.3 5.8 -Post Debridement (cm) - Depth 2.8 2.0 -Total Square (Post) (cm) 15.75 12.18 -Area of Debridement (cm) - Length 2.5 2.1 -Area of Debridement (cm) - Width 6.3 5.8 -Total Square (Area) (cm) 15.75 12.18 -Tunneling No No -Undermining/Tunneling No No -Circular Undermining No No -Wound/Ulcer Outcome Not Healed Not Healed -Ulcer Cleansing Rinsed/ Rinsed/ Irrigated with Irrigated with Saline Saline -Foul Odor after Cleansing No No -Bioengineered Tissue No No -Bleeding Controlled with Pressure Pressure -Treatment Response Procedure Procedure Tolerated Well Tolerated Well -Offloading No Yes -Type of Offloading Surgical Shoe -Assistive Device(s) Wheelchair -Debridement - Muscle / Fascia, 1st No No 20sq cm #1- L DORSAL FOOT POST OP -Time 11:20 11:42 -Correct Patient Yes Yes -Correct Side, Site, Position Yes Yes -Correct Procedure Yes Yes -Procedure Performed Yes Yes -Type of Procedure Debridement Debridement -Clinical Debridement Muscle / Fascia Muscle / Fascia -Tissue Removed Tendon Muscle -Post Debridement (cm) - Length 9.6 9.2 -Post Debridement (cm) - Width 6.2 6.5 -Post Debridement (cm) - Depth 1.0 1.5 -Total Square (Post) (cm) 59.52 59.80 -Area of Debridement (cm) - Length 9.6 9.2 -Area of Debridement (cm) - Width 6.2 6.5 -Total Square (Area) (cm) 59.52 59.80 -Tunneling No No -Undermining/Tunneling No No -Circular Undermining No No -Wound/Ulcer Outcome Not Healed Not Healed -Ulcer Cleansing Rinsed/ Rinsed/ Irrigated with Irrigated with Saline Saline -Foul Odor after Cleansing No No -Bioengineered Tissue No No -Bleeding Controlled with Pressure Pressure -Treatment Response Procedure Procedure Tolerated Well Tolerated Well -Offloading No Yes -Type of Offloading Surgical Shoe -Assistive Device(s) Wheelchair -Debridement - Muscle / Fascia, 1st Yes Yes 20sq cm -Debridement, Muscle/Fascia, ea addt'l 3 3 20sq cm or part thereof Pain Scale: 0-10 Numeric Is Patient Pain Free? Yes Yes WC - Nurse 3 - General Ulcer D/C NN Start: 11/24/21 10:32 Freq: Status: Active Protocol: Activity Type Activity Date Activity User E-Sign Co-Sign Detail Recorded Client Recorded Date Recorded By Document 11/24/21 12:05 [place] [id number] 11/24/21 12:07 [place] Edit Result 11/24/21 12:05 [place] (1) [id number] 11/24/21 13:43 PL Edit Result 11/24/21 12:05 [place] (2) [id number] 11/25/21 07:02 PL Document 12/01/21 11:56 [place] [id number] 12/01/21 12:01 AK (1) #2- L PLANTAR FOOT POST OP - NPWT Application Charge NPWT > 50 sq cm ($ => NPWT & Debridement ) => (nc) (2) #1- L DORSAL FOOT POST OP - NPWT Application Charge NPWT > 50 sq cm ($ => NPWT & Debridement ) => (nc) 11/24/21 12/01/21 12:05 11:56 Wound Care Nurse 3 #2- L PLANTAR FOOT POST OP -Ulcer Cleansing Rinsed/ Rinsed/ Irrigated with Irrigated with Saline Saline -Foul Odor after Cleansing No -Negative Pressure Wound Therapy Continue Continue -Setting (mmHg) 150 150 -Negative Pressure is Continuous Continuous -Primary Dressing Covered/Secured with Dry Gauze & Roll Gauze, Secured with Tape -NPWT Application Charge NPWT & NPWT & Debridement (nc Debridement (nc ) ) #1- L DORSAL FOOT POST OP -Ulcer Cleansing Rinsed/ Rinsed/ Irrigated with Irrigated with Saline Saline -Foul Odor after Cleansing No No -Negative Pressure Wound Therapy N/A Continue -Setting (mmHg) 150 -Negative Pressure is Continuous -Primary Dressing Covered/Secured with Dry Gauze & Roll Gauze, Secured with Tape -NPWT Application Charge NPWT & NPWT - Multiple Debridement (nc Locations ) Pain Scale: 0-10 Numeric Is Patient Pain Free? Yes Yes WC - Visit Discharge Discharge Condition Stable Stable Ambulatory Status Wheelchair Wheelchair Transportation Private Auto Private Auto Accompanied by dad dad Medication Reconcilliation completed & Yes Yes provided to patient/care provider Clinical Summary of Care Provided Yes Yes Assessment/Plan Assessment/Plan (1) Osteomyelitis of ankle or foot, left, acute: CODE(S): M86.172 - Other acute osteomyelitis, left ankle and foot (2) Gas gangrene of foot: CODE(S): A48.0 - Gas gangrene (3) Osteomyelitis: CODE(S): M86.9 - Osteomyelitis, unspecified QUALIFIERS: Osteomyelitis type: other acute Osteomyelitis location: foot Laterality: left Qualified Code(s): M86.172 - Other acute osteomyelitis, left ankle and foot (4) Charcot arthropathy of midfoot: CODE(S): M14.679 - Charcot's joint, unspecified ankle and foot (5) 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 muscle: CODE(S): L97.523 - 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 muscle (6) Type 2 diabetes mellitus with diabetic polyneuropathy: CODE(S): E11.42 - Type 2 diabetes mellitus with diabetic polyneuropathy QUALIFIERS: Diabetes mellitus ferry terminal agent insulin use: without half-way use Qualified Code(s): E11.42 - Type 2 diabetes mellitus with diabetic polyneuropathy (7) 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 muscle: CODE(S): L97.523 - 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 muscle (8) 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 bone: CODE(S): L97.524 - 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 bone (9) Diabetic infection of left foot: CODE(S): E11.628 - Type 2 diabetes mellitus with other skin complications; L08.9 - Local infection of the skin and subcutaneous tissue, unspecified (10) Cellulitis: CODE(S): L03.90 - Cellulitis, unspecified QUALIFIERS: Site of cellulitis: extremity Site of cellulitis of extremity: lower extremity Laterality: left Qualified Code(s): L03.116 - Cellulitis of left lower limb PLAN: This is a 41-year-old diabetic male who recently presented with gas gangrene and osteomyelitis of his left foot. He required emergent surgical intervention on 2 occasions several days apart. He was hospitalized for a total of 1 week, and has been discharged on intravenous antibiotics, including Invanz and vancomycin, which are anticipated to continue for 6 weeks. Recent laboratory studies are as follows: White blood count 7.2, hemoglobin 9.6, hematocrit 31.0, platelets 485,000, sedimentation rate 61, glucose 81, BUN 17, creatinine 0.86, total protein 6.9, albumin 2.2, calcium 8.9, AST 25, alkaline phosphatase 72, ALT 28, sodium 137, potassium 4.8, chloride 103, hemoglobin A1c 6.6. A bone biopsy performed intraoperatively on November 14, 2021, as confirmed the presence of acute osteomyelitis. Chest x-ray performed on 11/14/2021 reveals no significant cardiopulmonary abnormalities. Consultation has been obtained for evaluation relative to the administration of hyperbaric oxygen therapy. Hyperbaric oxygen therapy appears to be indicated in this diabetic patient with a infection involving recent gas gangrene and osteomyelitis. The patient is well acquainted with hyperbaric oxygen therapy, having previously undergone such treatment in the past relative to a similar infection involving his right foot. The indications and risks of hyperbaric oxygen therapy have been discussed with patient in detail. The expected benefits have been thoroughly explained. The patient's questions have been answered. Preauthorization will be requested, and the patient will undergo hyperbaric oxygen therapy once approved by his insurance coverage. It is anticipated that he will undergo hyperbaric oxygen therapy for 90 minutes at 2 krzysztof each week today, for a total of 30 sessions. Thereafter, he will be reevaluated as to the anticipated improvements, and further hyperbaric oxygen treatments will be considered as indicated. Relative to the patient's left foot osteomyelitis and gas gangrene, the patient will continue under the care of Dr. Jordi Perkins, podiatric specialist. Antibiotic management will continue as per the recommendations of the Infectious Disease service. Total time: 50 minutes
== END 2021-12-05 23:59 | disposition home or self-care (01) ==
LOC: WC 10:45
PROVIDERS: PCP Student in an Organized Health Care Education/Training Program; Visit Provider Podiatrist
DX: E11.621 Type 2 diabetes mellitus with foot ulcer (principal); E11.52 Type 2 diabetes mellitus with diabetic peripheral angiopathy with gangrene; A48.0 Gas gangrene; L97.523 Non-pressure chronic ulcer of other part of left foot with necrosis of muscle; M86.172 Other acute osteomyelitis, left ankle and foot; E11.42 Type 2 diabetes mellitus with diabetic polyneuropathy; B95.2 Enterococcus as the cause of diseases classified elsewhere; L03.116 Cellulitis of left lower limb; Z79.84 Long term (current) use of oral hypoglycemic drugs; Z79.899 Other long term (current) drug therapy
CPT/HCPCS: 11043; 11046; 97606; 99213; 99214; G0463

== ENCOUNTER 2021-12-04 14:01 | Outpatient (RCR) | payer BC, SELFPAY ==
[2021-11-23 09:14] LABS: Hemoglobin 9.6 g/dL (13.0-16.5); Mean Corpuscular Hgb 28.3 pg (27.0-32.0); Mean Corpuscular Volume 88.5 fL (80-94); Mean Platelet Vol. 9.6 fl (6.2-12.0); Platelet Count 470 K/mm3 (150-450); RBC Distribution Width CV 13.6 % (11.6-14.6); RBC Distribution Width SD 44.1 fl (35.1-43.9); Red Blood Count 3.39 M/mm3 (4.6-6.2); White Blood Count 8.7 K/mm3 (4.4-11.0)
[2021-11-23 09:27] LABS: Vancomycin, Trough Level 14.3 ug/mL (5.0-15.0)
[2021-11-23 09:31] LABS: AST(SGOT) 26 U/L (15-37); Alanine Aminotransfer ALT/SGPT 34 U/L (16-61); Alkaline Phosphatase 68 U/L (45-117); Anion Gap 9 (5-15); BUN 18 mg/dL (7-18); BUN/Creat Ratio 24.1 RATIO (10-20); Bilirubin, Direct 0.19 mg/dL (0.00-0.30); Calcium,Total 8.3 mg/dL (8.5-10.1); Chloride 101 mmol/L (98-107); Creatinine, Serum 0.75 mg/dL (0.70-1.30); EST Glomerular Filtration Rate 124 mL/min (>60); Est Glom Filt Rate - Afr Amer 150 mL/min (>60); Globulin 4.1 g/dL (2.2-4.2); Glucose 105 mg/dL (74-106); Potassium 4.7 mmol/L (3.5-5.1); Protein, Total 6.1 g/dL (6.4-8.2); Sodium Level 138 mmol/L (136-145)
[2021-11-27 13:21] LABS: Erythrocyte Sedimentation Rate 61 mm/hr (0-20); Hemoglobin 9.6 g/dL (13.0-16.5); Mean Corpuscular Volume 90.4 fL (80-94); Mean Platelet Vol. 9.2 fl (6.2-12.0); Platelet Count 485 K/mm3 (150-450); RBC Distribution Width CV 13.4 % (11.6-14.6); RBC Distribution Width SD 44.1 fl (35.1-43.9); Red Blood Count 3.43 M/mm3 (4.6-6.2); White Blood Count 7.2 K/mm3 (4.4-11.0)
[2021-11-27 13:41] LABS: Vancomycin, Trough Level 13.6 ug/mL (5.0-15.0)
[2021-11-27 13:43] LABS: AST(SGOT) 25 U/L (15-37); Alanine Aminotransfer ALT/SGPT 28 U/L (16-61); Albumin, Serum 2.2 g/dL (3.2-5.0); Alkaline Phosphatase 72 U/L (45-117); Anion Gap 6 (5-15); BUN 17 mg/dL (7-18); BUN/Creat Ratio 19.9 RATIO (10-20); Bilirubin, Direct 0.15 mg/dL (0.00-0.30); Calcium,Total 8.9 mg/dL (8.5-10.1); Chloride 103 mmol/L (98-107); Creatinine, Serum 0.86 mg/dL (0.70-1.30); EST Glomerular Filtration Rate 105 mL/min (>60); Est Glom Filt Rate - Afr Amer 128 mL/min (>60); Globulin 4.7 g/dL (2.2-4.2); Glucose 81 mg/dL (74-106); Potassium 4.8 mmol/L (3.5-5.1); Protein, Total 6.9 g/dL (6.4-8.2); Sodium Level 137 mmol/L (136-145)
[2021-12-04 14:18] LABS: Erythrocyte Sedimentation Rate 53 mm/hr (0-20)
[2021-12-04 14:19] LABS: Hematocrit 28.8 % (40-54); Hemoglobin 8.8 g/dL (13.0-16.5); Mean Corp Hgb Conc 30.6 g/dL (32-36); Mean Corpuscular Hgb 27.2 pg (27.0-32.0); Mean Corpuscular Volume 89.2 fL (80-94); Mean Platelet Vol. 9.2 fl (6.2-12.0); Platelet Count 374 K/mm3 (150-450); RBC Distribution Width CV 13.3 % (11.6-14.6); RBC Distribution Width SD 43.7 fl (35.1-43.9); Red Blood Count 3.23 M/mm3 (4.6-6.2)
[2021-12-04 14:31] LABS: AST(SGOT) 17 U/L (15-37); Alanine Aminotransfer ALT/SGPT 21 U/L (16-61); Albumin, Serum 2.3 g/dL (3.2-5.0); Alkaline Phosphatase 68 U/L (45-117); Anion Gap 9 (5-15); BUN 21 mg/dL (7-18); BUN/Creat Ratio 22.9 RATIO (10-20); Bilirubin, Direct 0.13 mg/dL (0.00-0.30); Calcium,Total 8.9 mg/dL (8.5-10.1); Chloride 104 mmol/L (98-107); Creatinine, Serum 0.92 mg/dL (0.70-1.30); EST Glomerular Filtration Rate 98 mL/min (>60); Est Glom Filt Rate - Afr Amer 118 mL/min (>60); Globulin 4.2 g/dL (2.2-4.2); Glucose 82 mg/dL (74-106); Potassium 4.5 mmol/L (3.5-5.1); Protein, Total 6.5 g/dL (6.4-8.2); Sodium Level 141 mmol/L (136-145)
[2021-12-04 14:34] LABS: Vancomycin, Trough Level 16.1 ug/mL (5.0-15.0)
== END 2021-12-05 23:59 ==
LOC: HHLAB 14:01
PROVIDERS: PCP Student in an Organized Health Care Education/Training Program; Visit Provider Internal Medicine Infectious Disease
DX: M86.9 Osteomyelitis, unspecified (principal)
CPT/HCPCS: 80048; 80076; 80202; 85027; 85652

== ENCOUNTER → 2021-12-11 | Outpatient (CLI) | payer BC, SELFPAY ==
[2021-12-11 12:44] LABS: AST(SGOT) 32 U/L (15-37); Alanine Aminotransfer ALT/SGPT 22 U/L (16-61); Albumin, Serum 2.4 g/dL (3.2-5.0); Alkaline Phosphatase 82 U/L (45-117); Anion Gap 8 (5-15); BUN 23 mg/dL (7-18); BUN/Creat Ratio 30.1 RATIO (10-20); Bilirubin, Direct 0.07 mg/dL (0.00-0.30); Calcium,Total 9.1 mg/dL (8.5-10.1); Chloride 103 mmol/L (98-107); Creatinine, Serum 0.76 mg/dL (0.70-1.30); EST Glomerular Filtration Rate 120 mL/min (>60); Est Glom Filt Rate - Afr Amer 145 mL/min (>60); Globulin 4.5 g/dL (2.2-4.2); Glucose 92 mg/dL (74-106); Potassium 5.2 mmol/L (3.5-5.1); Protein, Total 6.9 g/dL (6.4-8.2); Sodium Level 140 mmol/L (136-145)
[2021-12-11 12:49] LABS: Hematocrit 31.5 % (40-54); Hemoglobin 9.9 g/dL (13.0-16.5); Mean Corp Hgb Conc 31.4 g/dL (32-36); Mean Corpuscular Hgb 26.8 pg (27.0-32.0); Mean Corpuscular Volume 85.1 fL (80-94); Mean Platelet Vol. 9.7 fl (6.2-12.0); Platelet Count 376 K/mm3 (150-450); RBC Distribution Width CV 13.6 % (11.6-14.6); RBC Distribution Width SD 42.5 fl (35.1-43.9); White Blood Count 4.4 K/mm3 (4.4-11.0)
[2021-12-11 12:50] LABS: Erythrocyte Sedimentation Rate 70 mm/hr (0-20)
[2021-12-14 15:44] LABS: Vancomycin, Trough Level 17.4 ug/mL (5.0-15.0)
== END | disposition home or self-care (01) ==
LOC: LABSPEC 12:18
PROVIDERS: PCP Student in an Organized Health Care Education/Training Program; Referring Provider Internal Medicine Infectious Disease; Visit Provider Internal Medicine Infectious Disease
DX: M86.9 Osteomyelitis, unspecified (principal)
CPT/HCPCS: 80048; 80076; 80202; 85027; 85652

== ENCOUNTER → 2021-12-15 | Outpatient (CLI) | payer BC, SELFPAY ==
[2021-12-15] MEDS: Alteplase 2 MG/2 ML Vial IV ×2 (12:25→12:26)
== END | disposition home or self-care (01) ==
LOC: MEDOUTP 11:44
PROVIDERS: PCP Student in an Organized Health Care Education/Training Program; Referring Provider Internal Medicine Infectious Disease; Visit Provider Internal Medicine Infectious Disease
DX: Z45.2 Encounter for adjustment and management of vascular access device (principal)
CPT/HCPCS: 36593; 96374; 96376; J2997; A4216

== ENCOUNTER 2021-12-25 12:24 | Outpatient (RCR) | payer BC, SELFPAY ==
[2021-12-18 13:07] LABS: Erythrocyte Sedimentation Rate 97 mm/hr (0-20)
[2021-12-18 13:13] LABS: Hematocrit 30.9 % (40-54); Hemoglobin 9.4 g/dL (13.0-16.5); Mean Corp Hgb Conc 30.4 g/dL (32-36); Mean Corpuscular Hgb 25.8 pg (27.0-32.0); Mean Corpuscular Volume 84.9 fL (80-94); Mean Platelet Vol. 9.6 fl (6.2-12.0); Platelet Count 360 K/mm3 (150-450); RBC Distribution Width CV 13.7 % (11.6-14.6); RBC Distribution Width SD 42.9 fl (35.1-43.9); Red Blood Count 3.64 M/mm3 (4.6-6.2); White Blood Count 4.8 K/mm3 (4.4-11.0)
[2021-12-18 13:17] LABS: Vancomycin, Trough Level 17.4 ug/mL (5.0-15.0)
[2021-12-18 13:21] LABS: AST(SGOT) 15 U/L (15-37); Alanine Aminotransfer ALT/SGPT 18 U/L (16-61); Albumin, Serum 2.5 g/dL (3.2-5.0); Alkaline Phosphatase 84 U/L (45-117); Anion Gap 8 (5-15); BUN 25 mg/dL (7-18); Bilirubin, Direct 0.08 mg/dL (0.00-0.30); Calcium,Total 8.9 mg/dL (8.5-10.1); Chloride 103 mmol/L (98-107); Creatinine, Serum 0.83 mg/dL (0.70-1.30); EST Glomerular Filtration Rate 109 mL/min (>60); Est Glom Filt Rate - Afr Amer 131 mL/min (>60); Globulin 3.9 g/dL (2.2-4.2); Glucose 94 mg/dL (74-106); Potassium 4.3 mmol/L (3.5-5.1); Protein, Total 6.4 g/dL (6.4-8.2); Sodium Level 140 mmol/L (136-145)
[2021-12-25 12:47] LABS: Erythrocyte Sedimentation Rate 95 mm/hr (0-20)
[2021-12-25 12:49] LABS: Hematocrit 31.1 % (40-54); Hemoglobin 9.5 g/dL (13.0-16.5); Mean Corp Hgb Conc 30.5 g/dL (32-36); Mean Corpuscular Hgb 25.3 pg (27.0-32.0); Mean Corpuscular Volume 82.9 fL (80-94); Mean Platelet Vol. 9.5 fl (6.2-12.0); Platelet Count 331 K/mm3 (150-450); RBC Distribution Width CV 14.4 % (11.6-14.6); RBC Distribution Width SD 43.5 fl (35.1-43.9); Red Blood Count 3.75 M/mm3 (4.6-6.2)
[2021-12-25 12:54] LABS: AST(SGOT) 15 U/L (15-37); Alanine Aminotransfer ALT/SGPT 17 U/L (16-61); Albumin, Serum 2.5 g/dL (3.2-5.0); Alkaline Phosphatase 91 U/L (45-117); Anion Gap 9 (5-15); BUN 23 mg/dL (7-18); BUN/Creat Ratio 27.4 RATIO (10-20); Bilirubin, Direct 0.12 mg/dL (0.00-0.30); Calcium,Total 9.2 mg/dL (8.5-10.1); Chloride 104 mmol/L (98-107); Creatinine, Serum 0.84 mg/dL (0.70-1.30); EST Glomerular Filtration Rate 108 mL/min (>60); Est Glom Filt Rate - Afr Amer 131 mL/min (>60); Globulin 4.3 g/dL (2.2-4.2); Glucose 70 mg/dL (74-106); Potassium 4.2 mmol/L (3.5-5.1); Protein, Total 6.8 g/dL (6.4-8.2); Sodium Level 139 mmol/L (136-145)
== END 2021-12-25 18:00 | disposition home or self-care (01) ==
LOC: HHLAB 12:24
PROVIDERS: PCP Student in an Organized Health Care Education/Training Program; Visit Provider Internal Medicine Infectious Disease
DX: M86.9 Osteomyelitis, unspecified (principal)
CPT/HCPCS: 80048; 80076; 80202; 85027; 85652

== ENCOUNTER 2022-01-05 10:30 | Outpatient (RCR) | payer BC, SELFPAY ==
[2021-12-06 00:49] VITALS: BP 112/67; PULSE 107; RESP 16; TEMP 36.1; BMI 41.8
[2021-12-08 10:30] VITALS: BP 101/51; PULSE 107; RESP 16; TEMP 36.3; BMI 41.8
--- NOTE | 2021-12-08 11:06 | PN.PCM_ITS ---
History of Present Illness Date of Service: 12/08/21 Chief Complaint: Diabetic left foot infection with gas gangrene and osteom yelitis. History of Wound: This is a 41-year-old diabetic white male who presented with fevers, sweats, chills, malaise, and left foot swelling and redness, and found to have a diabetic left foot infection on November 14, 2021. 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 Initial blood cultures were positive. The patient was treated by Dr. Jordi Perkins, podiatric specialist, who performed incision and surgical debridement on the day of admission. Cultures obtained were positive for Enterococcus faecalis and Prevotella bivia. The patient required hospitalization at [facility], where he remained until he was discharged on November 21, 2021. A repeat incision and surgical debridement was performed on November 17, 2021. The Infectious Disease service was consulted, and the patient was started on intravenous antibiotics, and subsequently discharged on intravenous Invanz and vancomycin. The intravenous antibiotics are anticipated to continue for at least 6 weeks. He was discharged with a wound VAC, which continues until the current time, and surgical care related to his left foot continues under the oversight of Dr. Jordi Perkins, podiatric specialist. Patient notes significant improvement of his wound at this time and denies any constitutional symptoms. Patient denies any pain. Patient tolerating IV antibiotics well. No other complaints. Objective Data Objective Data Vital Signs: Vital Signs Temp Pulse Resp BP 97.3 F L 107 H 16 101/51 L 12/08/21 10:30 12/08/21 10:30 12/08/21 10:30 12/08/21 10:30 Oxygen Delivery Method Room Air Weight: 136.078 kg Body Mass Index (BMI) 41.8 Physical Exam Narrative Patient is alert oriented to person place and time. Patient is maintaining a nonweightbearing status to his left lower extremity with a wheelchair. Vascular: Left lower extremity vascular examination deferred there is brisk capillary fill time to the lesser digits on the left side. Neurovascular status intact right lower extremity. Neurologic: Light touch protective sensation absent to bilateral feet. Dermatologic: There is an extensive dorsal midfoot wound which extends down to the level of tendon there is noted to be desiccated extensor hallucis longus tendon and intact tibialis anterior tendon along the medial aspect of the wound. Patient demonstrates a predominantly granular wound base which is significantly improved since the previous visit to the dorsal and plantar left foot. There is approximately 10% fibronecrotic areas with exposed tibialis anterior tendon to the dorsal foot. There is resolving periwound erythema and edema. No residual crepitus or purulent drainage noted at this time. There is no to be a full- thickness plantar foot wound extending down the level of tendon which is starting to fill in, there is resolved periwound maceration. Wound demonstrates resolving signs of infection at this time. Pre and postdebridement measurements documented nursing notes. Musculoskeletal: There is noted to be a plantar lateral convexity of the left foot secondary to Charcot deformity at the level of the midfoot. There is noted to be a varus deformity of the right ankle secondary to Charcot foot and multiple incision and drainages on that side. Muscular strength is intact to bilateral lower extremity compartments. Debridement Note Debridement Note Post-Debridement Measurements and Additional Note: Post-Debridement Measurements/Treatment - Nurse 1 - General Ulcer Assessment Start: 12/08/21 10:30 Freq: Status: Active Protocol: [email or web address] Activity Type Activity Date Activity User E-Sign Co-Sign Detail Recorded Client Recorded Date Recorded By Document 12/08/21 10:30 MW [id number] 12/08/21 10:44 MW 12/08/21 10:30 - Today's Visit Information Type of service Initial Visit Arrival Mode Wheelchair Transfer Assistance Other Transfer Assist (Other) stand by Accompanied by dad Patient Identification Verified (Name & Yes ) Patient Requires Transmission-Based No Precautions Height and Weight Body Mass Index (BMI) 41.8 BMI Classification Obese Vital Signs Temperature (97.8 F-99.1 F) 97.3 F L Temperature Source Temporal Pulse Rate (60-100) 107 H Pulse Location Monitor Respiratory Rate (12-18) 16 Respiratory rate source Observation Oxygen Delivery Method Room Air Blood Pressure (90/60-120/80) 101/51 L Blood Pressure Mean (mm Hg) 67 Source Monitor Position Sitting Blood Pressure Location Left Arm History Since Last Visit- (Skip if this is Patient's initial visit) Have you changed medications since your No last visit? Any new allergies or adverse reactions No Had a fall/change in ADL's that may No increase risk of falls Signs or symptoms of abuse and/or No neglect since last visit Have you been in the hospital since your No last visit? Has dressing in place as prescribed Yes Has compression in place as prescribed Yes Has offloadiing in place as prescribed Yes Experienced any changes in pain level or No management Pain Scale: 0-10 Numeric Is Patient Pain Free? Yes WC - Nurse 1 - General Ulcer Measurement Start: 12/08/21 10:30 Freq: Status: Active Protocol: Activity Type Activity Date Activity User E-Sign Co-Sign Detail Recorded Client Recorded Date Recorded By Document 12/08/21 10:30 MW [id number] 12/08/21 10:44 MW 12/08/21 10:30 Wound Center Nurse 1 #2- L PLANTAR FOOT POST OP -Combined with other wound No -Current Size (cm) - Length 1.8 -Current Size (cm) - Width 5.5 -Current Size (cm) - Depth 1.5 -Total Square Cm 9.90 -Date of Last Picture (Recall this 12/08/21 field) -Photo Taken Yes -Epithelialization None Present -Tunneling No -Undermining/Tunneling No -Circular Undermining No -Exudate Amt Large -Exudate Type Serosanguineous -Wound Margin Distinct, Outline Attached -Granulation Amt Large (67-100%) -Granulation Quality Red -Slough/Fibrin Yes -Necrosis Amt Small (1-33%) -Necrotic Tissue Type Adherent Slough -Texture ([place]-wound Skin Appearance) Assessed, Scarring -Moisture ([place]-wound Skin Appearance) Assessed, Maceration -Color ([place]-wound Skin Appearance) Assessed, Erythema -Temperature ([place]-wound Skin No Abnormality Appearance) (Pt Warm) -Tenderness on Palpation ([place]-wound No Skin Appearance) -Ulcer Cleansing Soap and Water -Foul Odor after Cleansing No -Anesthetic Used 4% Lidocaine Solution #1- L DORSAL FOOT POST OP -Combined with other wound No -Current Size (cm) - Length 6.6 -Current Size (cm) - Width 7 -Current Size (cm) - Depth 0.5 -Total Square Cm 46.2 -Date of Last Picture (Recall this 12/08/21 field) -Photo Taken Yes -Epithelialization Small 1-33% -Tunneling No -Undermining/Tunneling No -Circular Undermining No -Exudate Amt Large -Exudate Type Serosanguineous -Wound Margin Distinct, Outline Attached -Granulation Amt Large (67-100%) -Granulation Quality Red -Slough/Fibrin Yes -Necrosis Amt Small (1-33%) -Necrotic Tissue Type Adherent Slough -Structure Exposed Tendon -Texture ([place]-wound Skin Appearance) Assessed -Moisture ([place]-wound Skin Appearance) Assessed -Color ([place]-wound Skin Appearance) Assessed -Temperature ([place]-wound Skin No Abnormality Appearance) (Pt Warm) -Tenderness on Palpation ([place]-wound No Skin Appearance) -Ulcer Cleansing Soap and Water -Foul Odor after Cleansing No -Anesthetic Used 4% Lidocaine Solution Lower Limb Edema Present Yes Left Calf (cm) 37.5 Left Ankle (cm) 27.5 WC - Nurse 2 - General Ulcer CM Notes Start: 12/08/21 10:30 Freq: Status: Active Protocol: Activity Type Activity Date Activity User E-Sign Co-Sign Detail Recorded Client Recorded Date Recorded By Document 12/08/21 11:01 BRIAN [id number] 12/08/21 11:04 BRIAN 12/08/21 11:01 Wound Center Nurse 2 #2- L PLANTAR FOOT POST OP -Time 11:02 -Correct Patient Yes -Correct Side, Site, Position Yes -Correct Procedure Yes -Procedure Performed Yes -Type of Procedure Debridement -Clinical Debridement Subcutaneous -Tissue Removed Subcutaneous -Post Debridement (cm) - Length 1.8 -Post Debridement (cm) - Width 5.6 -Post Debridement (cm) - Depth 1.5 -Total Square (Post) (cm) 10.08 -Area of Debridement (cm) - Length 1.8 -Area of Debridement (cm) - Width 5.6 -Total Square (Area) (cm) 10.08 -Tunneling No -Undermining/Tunneling No -Circular Undermining No -Wound/Ulcer Outcome Not Healed -Ulcer Cleansing Rinsed/ Irrigated with Saline -Foul Odor after Cleansing No -Bioengineered Tissue No -Bleeding Controlled with Pressure -Treatment Response Procedure Tolerated Well -Offloading No -Assistive Device(s) Wheelchair -Debridement - Subq, 1st 20sq cm Yes #1- L DORSAL FOOT POST OP -Time 11:02 -Correct Patient Yes -Correct Side, Site, Position Yes -Correct Procedure Yes -Procedure Performed Yes -Type of Procedure Debridement -Clinical Debridement Muscle / Fascia -Tissue Removed Muscle -Post Debridement (cm) - Length 6.7 -Post Debridement (cm) - Width 7 -Post Debridement (cm) - Depth 0.5 -Total Square (Post) (cm) 46.9 -Area of Debridement (cm) - Length 6.7 -Area of Debridement (cm) - Width 7 -Total Square (Area) (cm) 46.9 -Tunneling No -Undermining/Tunneling No -Circular Undermining No -Wound/Ulcer Outcome Not Healed -Ulcer Cleansing Rinsed/ Irrigated with Saline -Foul Odor after Cleansing No -Bioengineered Tissue No -Bleeding Controlled with Pressure -Treatment Response Procedure Tolerated Well -Offloading Yes -Type of Offloading Surgical Shoe -Assistive Device(s) Wheelchair -Debridement - Muscle / Fascia, 1st Yes 20sq cm -Debridement, Muscle/Fascia, ea addt'l 2 20sq cm or part thereof Pain Scale: 0-10 Numeric Is Patient Pain Free? Yes Assessment/Plan Assessment/Plan (1) Gas gangrene of foot: CODE(S): A48.0 - Gas gangrene (2) Osteomyelitis of ankle or foot, left, acute: CODE(S): M86.172 - Other acute osteomyelitis, left ankle and foot (3) Charcot arthropathy of midfoot: CODE(S): M14.679 - Charcot's joint, unspecified ankle and foot (4) Type 2 diabetes mellitus with diabetic polyneuropathy: CODE(S): E11.42 - Type 2 diabetes mellitus with diabetic polyneuropathy QUALIFIERS: Diabetes mellitus intermediate insulin use: without intermediate use Qualified Code(s): E11.42 - Type 2 diabetes mellitus with diabetic polyneuropathy (5) 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 muscle: CODE(S): L97.523 - 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 muscle PLAN: Patient examined evaluated, all fine discussed with patient detail. Left full ulceration was examined there is significant granulation tissue forming within the base wound covering all of the midfoot bones and covering a majority of the tibialis anterior tendon to the dorsal midfoot. The plantar midfoot wound is granulating in well and no longer has exposed tendon or bone. There resolved signs of infection clinically with no residual purulent drainage or tissue necrosis. Patient is receiving IV vancomycin and ertapenem for severe gas infection, this is being managed by infectious disease. He is expected to complete a course of 6 weeks. I have recommended the patient proceeds with HBO therapy as he has confirmed osteomyelitis with acute gas infection along with a wound that demonstrates exposed tendon. The wound today was debrided excisionally down to including level of tendon of all nonviable tissue using a 5 mm dermal curette without incident. Pre and postdebridement measurements documented nursing notes. No anesthesia required due to peripheral neuropathy. Hemostasis obtained with light compression. Patient tolerated procedure well. Patient will continue wound VAC therapy as he is demonstrating significant rapid healing. He is supplementing his nutritional status with Galo. He is controlling his blood sugar well at this time. Patient has good vascular status. We will plan for TheraSkin grafting to cover the wound weeks on the dorsal foot allow the plantar foot wound to continue granulating in using the wound VAC. Patient will remain nonweightbearing to his left lower extremity, I recommend taking 81 mg aspirin daily to prevent DVT. Patient will follow up in 1 week.
[2021-12-15 10:25] VITALS: BP 104/61; PULSE 81; TEMP 36.1; BMI 41.8
--- NOTE | 2021-12-15 11:14 | PCM.WC.PN ---
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 History of Wound: This is a 41-year-old diabetic white male who presented with fevers, sweats, chills, malaise, and left foot swelling and redness, and found to have a diabetic left foot infection on November 14, 2021. 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 Initial blood cultures were positive. The patient was treated by Dr. Jordi Perkins, podiatric specialist, who performed incision and surgical debridement on the day of admission. Cultures obtained were positive for Enterococcus faecalis and Prevotella bivia. The patient required hospitalization at [facility], where he remained until he was discharged on November 21, 2021. A repeat incision and surgical debridement was performed on November 17, 2021. The Infectious Disease service was consulted, and the patient was started on intravenous antibiotics, and subsequently discharged on intravenous Invanz and vancomycin. The intravenous antibiotics are anticipated to continue for at least 6 weeks. He was discharged with a wound VAC, which continues until the current time, and surgical care related to his left foot continues under the oversight of Dr. Jordi Perkins, podiatric specialist. Patient notes significant improvement of his wound at this time and denies any constitutional symptoms. Patient denies any pain. Patient tolerating IV antibiotics well. No other complaints. Objective Data Objective Data Vital Signs: Vital Signs Temp Pulse Resp BP 96.9 F L 81 16 104/61 12/15/21 10:25 12/15/21 10:25 12/08/21 10:30 12/15/21 10:25 Oxygen Delivery Method Room Air Weight: 136.078 kg Body Mass Index (BMI) 41.8 Physical Exam Narrative Patient is alert oriented to person place and time. Patient is maintaining a nonweightbearing status to his left lower extremity with a wheelchair. Vascular: Left lower extremity vascular examination deferred there is brisk capillary fill time to the lesser digits on the left side. Neurovascular status intact right lower extremity. Neurologic: Light touch protective sensation absent to bilateral feet. Dermatologic: There is an extensive dorsal midfoot wound which extends down to the level of tendon there is noted to be desiccated extensor hallucis longus tendon and intact tibialis anterior tendon along the medial aspect of the wound. Patient demonstrates a predominantly granular wound base which is significantly improved since the previous visit to the dorsal and plantar left foot. There is approximately 10% fibronecrotic areas with exposed tibialis anterior tendon to the dorsal foot. There is resolving periwound erythema and edema. No residual crepitus or purulent drainage noted at this time. There is no to be a full-thickness plantar foot wound extending down the level of tendon which is starting to fill in, there is resolved periwound maceration. Wound demonstrates resolving signs of infection at this time. Pre and postdebridement measurements documented nursing notes. Musculoskeletal: There is noted to be a plantar lateral convexity of the left foot secondary to Charcot deformity at the level of the midfoot. There is noted to be a varus deformity of the right ankle secondary to Charcot foot and multiple incision and drainages on that side. Muscular strength is intact to bilateral lower extremity compartments. Debridement Note Debridement Note Post-Debridement Measurements and Additional Note: Post-Debridement Measurements/Treatment - Nurse 1 - General Ulcer Assessment Start: 12/08/21 10:30 Freq: Status: Active Protocol: .BLAKE Activity Type Activity Date Activity User E-Sign Co-Sign Detail Recorded Client Recorded Date Recorded By Document 12/08/21 10:30 MW [id number] 12/08/21 10:44 MW Document 12/15/21 10:25 AK [id number] 12/15/21 10:43 AK 12/08/21 12/15/21 10:30 10:25 - Today's Visit Information Type of service Initial Visit Follow-up Visit (Physician/LEAD ASSISTANT MANAGER ) Arrival Mode Wheelchair Wheelchair Transfer Assistance Other Transfer Assist (Other) stand by Accompanied by dad Patient Identification Verified (Name & Yes Yes ) Patient Requires Transmission-Based No No Precautions Safety Precautions NA Height and Weight Body Mass Index (BMI) 41.8 41.8 BMI Classification Obese Obese Vital Signs Temperature (97.8 F-99.1 F) 97.3 F L 96.9 F L Temperature Source Temporal Temporal Pulse Rate (60-100) 107 H 81 Pulse Location Monitor Monitor Respiratory Rate (12-18) 16 Respiratory rate source Observation Oxygen Delivery Method Room Air Blood Pressure (90/60-120/80) 101/51 L 104/61 Blood Pressure Mean (mm Hg) 67 75 Source Monitor Monitor Position Sitting Blood Pressure Location Left Arm History Since Last Visit- (Skip if this is Patient's initial visit) Have you changed medications since your No No last visit? Any new allergies or adverse reactions No No Had a fall/change in ADL's that may No No increase risk of falls Signs or symptoms of abuse and/or No No neglect since last visit Have you been in the hospital since your No No last visit? Has dressing in place as prescribed Yes Yes Has compression in place as prescribed Yes Yes Has offloadiing in place as prescribed Yes N/A Experienced any changes in pain level or No No management Left Footwear Regular Shoe Right Footwear Regular Shoe Pain Scale: 0-10 Numeric Is Patient Pain Free? Yes Yes WC - Nurse 1 - General Ulcer Measurement Start: 12/08/21 10:30 Freq: Status: Active Protocol: Activity Type Activity Date Activity User E-Sign Co-Sign Detail Recorded Client Recorded Date Recorded By Document 12/08/21 10:30 MW [id number] 12/08/21 10:44 MW Document 12/15/21 10:25 AK [id number] 12/15/21 10:43 AK 12/08/21 12/15/21 10:30 10:25 Wound Center Nurse 1 #2- L PLANTAR FOOT POST OP -Combined with other wound No No -Current Size (cm) - Length 1.8 2 -Current Size (cm) - Width 5.5 5.6 -Current Size (cm) - Depth 1.5 1.2 -Total Square Cm 9.90 11.2 -Date of Last Picture (Recall this 12/08/21 field) -Photo Taken Yes No -Epithelialization None Present -Tunneling No No -Undermining/Tunneling No No -Circular Undermining No No -Exudate Amt Large Medium -Exudate Type Serosanguineous Serosanguineous -Wound Margin Distinct, Distinct, Outline Outline Attached Attached -Granulation Amt Large (67-100%) Large (67-100%) -Granulation Quality Red Red -Slough/Fibrin Yes No -Necrosis Amt Small (1-33%) None Present (0 %) -Necrotic Tissue Type Adherent Slough -Structure Exposed N/A -Texture ([place]-wound Skin Appearance) Assessed, Assessed Scarring -Moisture ([place]-wound Skin Appearance) Assessed, Assessed, Maceration Maceration -Color ([place]-wound Skin Appearance) Assessed, No Abnormality, Erythema Assessed -Temperature ([place]-wound Skin No Abnormality No Abnormality Appearance) (Pt Warm) (Pt Warm) -Tenderness on Palpation ([place]-wound No No Skin Appearance) -Ulcer Cleansing Soap and Water Rinsed/ Irrigated with Saline -Foul Odor after Cleansing No No -Anesthetic Used 4% Lidocaine 4% Lidocaine Solution Solution #1- L DORSAL FOOT POST OP -Combined with other wound No No -Current Size (cm) - Length 6.6 9.5 -Current Size (cm) - Width 7 7 -Current Size (cm) - Depth 0.5 0.2 -Total Square Cm 46.2 66.5 -Date of Last Picture (Recall this 12/08/21 field) -Photo Taken Yes No -Epithelialization Small 1-33% -Tunneling No No -Undermining/Tunneling No No -Circular Undermining No No -Change in Wound Grade/Stage No -Exudate Amt Large Medium -Exudate Type Serosanguineous Serosanguineous -Wound Margin Distinct, Distinct, Outline Outline Attached Attached -Granulation Amt Large (67-100%) Large (67-100%) -Granulation Quality Red Red -Slough/Fibrin Yes No -Necrosis Amt Small (1-33%) -Necrotic Tissue Type Adherent Slough -Structure Exposed Tendon N/A -Texture ([place]-wound Skin Appearance) Assessed Assessed, Scarring -Moisture ([place]-wound Skin Appearance) Assessed Assessed -Color ([place]-wound Skin Appearance) Assessed Assessed -Temperature ([place]-wound Skin No Abnormality No Abnormality Appearance) (Pt Warm) (Pt Warm) -Tenderness on Palpation ([place]-wound No No Skin Appearance) -Ulcer Cleansing Soap and Water Soap and Water -Foul Odor after Cleansing No No -Anesthetic Used 4% Lidocaine 4% Lidocaine Solution Solution Lower Limb Edema Present Yes No Right Calf (cm) 39 Right Ankle (cm) 25 Left Calf (cm) 37.5 38.5 Left Ankle (cm) 27.5 29 WC - Nurse 2 - General Ulcer CM Notes Start: 12/08/21 10:30 Freq: Status: Active Protocol: Activity Type Activity Date Activity User E-Sign Co-Sign Detail Recorded Client Recorded Date Recorded By Document 12/08/21 11:01 [id number] 12/08/21 11:04 Document 12/15/21 11:01 [id number] 12/15/21 11:07 12/08/21 12/15/21 11:01 11:01 Wound Center Nurse 2 #2- L PLANTAR FOOT POST OP -Time 11: 11:01 -Correct Patient Yes Yes -Correct Side, Site, Position Yes Yes -Correct Procedure Yes Yes -Procedure Performed Yes Yes -Type of Procedure Debridement Debridement -Clinical Debridement Subcutaneous Subcutaneous -Tissue Removed Subcutaneous Subcutaneous -Post Debridement (cm) - Length 1.8 2.1 -Post Debridement (cm) - Width 5.6 5.6 -Post Debridement (cm) - Depth 1.5 1.2 -Total Square (Post) (cm) 10.08 11.76 -Area of Debridement (cm) - Length 1.8 2.1 -Area of Debridement (cm) - Width 5.6 5.6 -Total Square (Area) (cm) 10.08 11.76 -Tunneling No No -Undermining/Tunneling No No -Circular Undermining No No -Wound/Ulcer Outcome Not Healed Not Healed -Ulcer Cleansing Rinsed/ Rinsed/ Irrigated with Irrigated with Saline Saline -Foul Odor after Cleansing No No -Bioengineered Tissue No No -Bleeding Controlled with Pressure Pressure -Treatment Response Procedure Procedure Tolerated Well Tolerated Well -Offloading No Yes -Type of Offloading Other -Other Type of Offloading [place] boot -Assistive Device(s) Wheelchair -Debridement - Subq, 1st 20sq cm Yes Yes #1- L DORSAL FOOT POST OP -Time 11: 11:02 -Correct Patient Yes Yes -Correct Side, Site, Position Yes Yes -Correct Procedure Yes Yes -Procedure Performed Yes Yes -Type of Procedure Debridement Debridement -Clinical Debridement Muscle / Fascia Muscle / Fascia -Tissue Removed Muscle Tendon -Post Debridement (cm) - Length 6.7 9.5 -Post Debridement (cm) - Width 7 7.1 -Post Debridement (cm) - Depth 0.5 0.4 -Total Square (Post) (cm) 46.9 67.45 -Area of Debridement (cm) - Length 6.7 9.5 -Area of Debridement (cm) - Width 7 7.1 -Total Square (Area) (cm) 46.9 67.45 -Tunneling No No -Undermining/Tunneling No No -Circular Undermining No No -Wound/Ulcer Outcome Not Healed Not Healed -Ulcer Cleansing Rinsed/ Rinsed/ Irrigated with Irrigated with Saline Saline -Foul Odor after Cleansing No No -Bioengineered Tissue No No -Bleeding Controlled with Pressure Pressure -Treatment Response Procedure Procedure Tolerated Well Tolerated Well -Offloading Yes Yes -Type of Offloading Surgical Shoe Other -Other Type of Offloading [place] boot -Assistive Device(s) Wheelchair -Debridement - Muscle / Fascia, 1st Yes Yes 20sq cm -Debridement, Muscle/Fascia, ea addt'l 2 3 20sq cm or part thereof Pain Scale: 0-10 Numeric Is Patient Pain Free? Yes Yes - Nurse 3 - General Ulcer D/C NN Start: 12/08/21 10:30 Freq: Status: Active Protocol: Activity Type Activity Date Activity User E-Sign Co-Sign Detail Recorded Client Recorded Date Recorded By Document 12/08/21 13:36 [facility] [id number] 12/08/21 13:37 [facility] 12/08/21 13:36 Wound Care Nurse 3 #2- L PLANTAR FOOT POST OP -Ulcer Cleansing Soap and Water -Foul Odor after Cleansing No -Negative Pressure Wound Therapy Continue -Setting (mmHg) 150 -Negative Pressure is Continuous -NPWT Application Charge NPWT & Debridement (nc ) #1- L DORSAL FOOT POST OP -Ulcer Cleansing Soap and Water -Foul Odor after Cleansing No -Negative Pressure Wound Therapy Continue -Setting (mmHg) 150 -Negative Pressure is Continuous -NPWT Application Charge NPWT - Multiple Locations Left -Compression Wrap Sal Wrap Treatment Response Procedure Tolerated Well Pain Scale: 0-10 Numeric Is Patient Pain Free? Yes - Visit Discharge Discharge Condition Stable Ambulatory Status Wheelchair Transportation Private Auto Accompanied by critical access hospital Facility Type Home Health Assessment/Plan Assessment/Plan (1) Gas gangrene of foot: CODE(S): A48.0 - Gas gangrene (2) Osteomyelitis of ankle or foot, left, acute: CODE(S): M86.172 - Other acute osteomyelitis, left ankle and foot (3) Charcot arthropathy of midfoot: CODE(S): M14.679 - Charcot's joint, unspecified ankle and foot (4) Type 2 diabetes mellitus with diabetic polyneuropathy: CODE(S): E11.42 - Type 2 diabetes mellitus with diabetic polyneuropathy QUALIFIERS: Diabetes mellitus intermediate school teacher insulin use: without intermediate school teacher use Qualified Code(s): E11.42 - Type 2 diabetes mellitus with diabetic polyneuropathy (5) 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 muscle: CODE(S): L97.523 - 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 muscle PLAN: Patient examined evaluated, all fine discussed with patient detail. Left full ulceration was examined there is significant granulation tissue forming within the base wound covering all of the midfoot bones and covering a majority of the tibialis anterior tendon to the dorsal midfoot. The plantar midfoot wound is granulating in well and no longer has exposed tendon or bone. There resolved signs of infection clinically with no residual purulent drainage or tissue necrosis. Patient is receiving IV vancomycin and ertapenem for severe gas infection, this is being managed by infectious disease. He is expected to complete a course of 6 weeks. I have recommended the patient proceeds with HBO therapy as he has confirmed osteomyelitis with acute gas infection along with a wound that demonstrates exposed tendon. The wound today was debrided excisionally down to including level of tendon of all nonviable tissue using a 5 mm dermal curette without incident. Pre and postdebridement measurements documented nursing notes. No anesthesia required due to peripheral neuropathy. Hemostasis obtained with light compression. Patient tolerated procedure well. Patient will continue wound VAC therapy as he is demonstrating significant rapid healing. He is supplementing his nutritional status with Galo. He is controlling his blood sugar well at this time. Patient has good vascular status. We will plan for TheraSkin grafting to cover the wound weeks on the dorsal foot allow the plantar foot wound to continue granulating in using the wound VAC. Patient will remain nonweightbearing to his left lower extremity, I recommend taking 81 mg aspirin daily to prevent DVT. Patient will follow up in 1 week.
[2021-12-22 11:11] VITALS: BP 122/63; PULSE 104; TEMP 36.2; BMI 41.8
--- NOTE | 2021-12-22 12:22 | PCM.WC.PN ---
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 History of Wound: This is a 41-year-old diabetic white male who presented with fevers, sweats, chills, malaise, and left foot swelling and redness, and found to have a diabetic left foot infection on November 14, 2021. 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 Initial blood cultures were positive. The patient was treated by Dr. Jordi Perkins, podiatric specialist, who performed incision and surgical debridement on the day of admission. Cultures obtained were positive for Enterococcus faecalis and Prevotella bivia. The patient required hospitalization at [facility], where he remained until he was discharged on November 21, 2021. A repeat incision and surgical debridement was performed on November 17, 2021. The Infectious Disease service was consulted, and the patient was started on intravenous antibiotics, and subsequently discharged on intravenous Invanz and vancomycin. The intravenous antibiotics are anticipated to continue for at least 6 weeks. He was discharged with a wound VAC, which continues until the current time, and surgical care related to his left foot continues under the oversight of Dr. Jordi Perkins, podiatric specialist. Patient notes significant improvement of his wound at this time and denies any constitutional symptoms. Patient denies any pain. Patient tolerating IV antibiotics well. No other complaints. Objective Data Objective Data Vital Signs: Vital Signs Temp Pulse Resp BP 97.2 F L 104 H 16 122/63 H 12/22/21 11:11 12/22/21 11:11 12/08/21 10:30 12/22/21 11:11 Oxygen Delivery Method Room Air Weight: 136.078 kg Body Mass Index (BMI) 41.8 Physical Exam Narrative Patient is alert oriented to person place and time. Patient is maintaining a nonweightbearing status to his left lower extremity with a wheelchair. Vascular: Left lower extremity vascular examination deferred there is brisk capillary fill time to the lesser digits on the left side. Neurovascular status intact right lower extremity. Neurologic: Light touch protective sensation absent to bilateral feet. Dermatologic: There is an extensive dorsal midfoot wound which extends down to the level of tendon there is noted to be desiccated extensor hallucis longus tendon and intact tibialis anterior tendon along the medial aspect of the wound. Patient demonstrates a predominantly granular wound base which is significantly improved since the previous visit to the dorsal and plantar left foot. There is approximately 10% fibronecrotic areas with exposed tibialis anterior tendon to the dorsal foot. There is resolving periwound erythema and edema. No residual crepitus or purulent drainage noted at this time. There is no to be a full-thickness plantar foot wound extending down the level of tendon which is starting to fill in, there is resolved periwound maceration. Wound demonstrates resolving signs of infection at this time. Pre and postdebridement measurements documented nursing notes. Musculoskeletal: There is noted to be a plantar lateral convexity of the left foot secondary to Charcot deformity at the level of the midfoot. There is noted to be a varus deformity of the right ankle secondary to Charcot foot and multiple incision and drainages on that side. Muscular strength is intact to bilateral lower extremity compartments. Debridement Note Debridement Note Post-Debridement Measurements and Additional Note: Post-Debridement Measurements/Treatment - Nurse 1 - General Ulcer Assessment Start: 12/08/21 10:30 Freq: Status: Active Protocol: WC.LOWEXApril Activity Type Activity Date Activity User E-Sign Co-Sign Detail Recorded Client Recorded Date Recorded By Document 12/08/21 10:30 MW [id number] 12/08/21 10:44 MW Document 12/15/21 10:25 AK [id number] 12/15/21 10:43 AK Document 12/22/21 11:11 KR [id number] 12/22/21 11:18 KR 12/08/21 12/15/21 12/22/21 10:30 10:25 11:11 - Today's Visit Information Type of service Initial Visit Follow-up Visit Follow-up Visit (Physician/PAINTER SKI EDGE (Physician/PAINTER SKI EDGE ) ) Arrival Mode Wheelchair Wheelchair Wheelchair Transfer Assistance Other Transfer Assist (Other) stand by Accompanied by dad Patient Identification Verified (Name & Yes Yes Yes ) Patient Requires Transmission-Based No No Precautions Safety Precautions NA Height and Weight Body Mass Index (BMI) 41.8 41.8 41.8 BMI Classification Obese Obese Obese Vital Signs Temperature (97.8 F-99.1 F) 97.3 F L 96.9 F L 97.2 F L Temperature Source Temporal Temporal Temporal Pulse Rate (60-100) 107 H 81 104 H Pulse Location Monitor Monitor Monitor Respiratory Rate (12-18) 16 Respiratory rate source Observation Oxygen Delivery Method Room Air Blood Pressure (90/60-120/80) 101/51 L 104/61 122/63 H Blood Pressure Mean (mm Hg) 67 75 82 Source Monitor Monitor Monitor Position Sitting Sitting Blood Pressure Location Left Arm Left Arm History Since Last Visit- (Skip if this is Patient's initial visit) Have you changed medications since your No No No last visit? Any new allergies or adverse reactions No No No Had a fall/change in ADL's that may No No No increase risk of falls Signs or symptoms of abuse and/or No No No neglect since last visit Have you been in the hospital since your No No last visit? Has dressing in place as prescribed Yes Yes Yes Has compression in place as prescribed Yes Yes N/A Has offloadiing in place as prescribed Yes N/A N/A Experienced any changes in pain level or No No No management Left Footwear Regular Shoe Custom Shoe Right Footwear Regular Shoe Regular Shoe Pain Scale: 0-10 Numeric Is Patient Pain Free? Yes Yes Yes WC - Nurse 1 - General Ulcer Measurement Start: 12/08/21 10:30 Freq: Status: Active Protocol: Activity Type Activity Date Activity User E-Sign Co-Sign Detail Recorded Client Recorded Date Recorded By Document 12/08/21 10:30 MW [id number] 12/08/21 10:44 MW Document 12/15/21 10:25 AK [id number] 12/15/21 10:43 AK Document 12/22/21 11:11 KR [id number] 12/22/21 11:18 KR 12/08/21 12/15/21 12/22/21 10:30 10:25 11:11 Wound Center Nurse 1 #2- L PLANTAR FOOT POST OP -Combined with other wound No No -Current Size (cm) - Length 1.8 2 1.8 -Current Size (cm) - Width 5.5 5.6 5.5 -Current Size (cm) - Depth 1.5 1.2 0.8 -Total Square Cm 9.90 11.2 9.90 -Date of Last Picture (Recall this 12/08/21 field) -Photo Taken Yes No -Epithelialization None Present -Tunneling No No -Undermining/Tunneling No No -Circular Undermining No No -Exudate Amt Large Medium Large -Exudate Type Serosanguineous Serosanguineous Serosanguineous -Wound Margin Distinct, Distinct, Distinct, Outline Outline Outline Attached Attached Attached -Granulation Amt Large (67-100%) Large (67-100%) Large (67-100%) -Granulation Quality Red Red Red -Slough/Fibrin Yes No -Necrosis Amt Small (1-33%) None Present (0 Small (1-33%) %) -Necrotic Tissue Type Adherent Slough Adherent Slough -Structure Exposed N/A Tendon -Texture ([place]-wound Skin Appearance) Assessed, Assessed Assessed, Scarring Scarring -Moisture ([place]-wound Skin Appearance) Assessed, Assessed, No Abnormality, Maceration Maceration Assessed -Color ([place]-wound Skin Appearance) Assessed, No Abnormality, No Abnormality, Erythema Assessed Assessed -Temperature ([place]-wound Skin No Abnormality No Abnormality No Abnormality Appearance) (Pt Warm) (Pt Warm) (Pt Warm) -Tenderness on Palpation ([place]-wound No No No Skin Appearance) -Ulcer Cleansing Soap and Water Rinsed/ Soap and Water Irrigated with Saline -Foul Odor after Cleansing No No No -Anesthetic Used 4% Lidocaine 4% Lidocaine 4% Lidocaine Solution Solution Solution #1- L DORSAL FOOT POST OP -Combined with other wound No No -Current Size (cm) - Length 6.6 9.5 8.6 -Current Size (cm) - Width 7 7 6.8 -Current Size (cm) - Depth 0.5 0.2 0.5 -Total Square Cm 46.2 66.5 58.48 -Date of Last Picture (Recall this 12/08/21 field) -Photo Taken Yes No -Epithelialization Small 1-33% -Tunneling No No -Undermining/Tunneling No No -Circular Undermining No No -Change in Wound Grade/Stage No -Exudate Amt Large Medium Large -Exudate Type Serosanguineous Serosanguineous -Wound Margin Distinct, Distinct, Distinct, Outline Outline Outline Attached Attached Attached -Granulation Amt Large (67-100%) Large (67-100%) Large (67-100%) -Granulation Quality Red Red Red -Slough/Fibrin Yes No -Necrosis Amt Small (1-33%) Small (1-33%) -Necrotic Tissue Type Adherent Slough Adherent Slough -Structure Exposed Tendon N/A Tendon -Texture ([place]-wound Skin Appearance) Assessed Assessed, Assessed, Scarring Scarring -Moisture ([place]-wound Skin Appearance) Assessed Assessed No Abnormality, Assessed -Color ([place]-wound Skin Appearance) Assessed Assessed No Abnormality, Assessed -Temperature ([place]-wound Skin No Abnormality No Abnormality No Abnormality Appearance) (Pt Warm) (Pt Warm) (Pt Warm) -Tenderness on Palpation ([place]-wound No No No Skin Appearance) -Ulcer Cleansing Soap and Water Soap and Water Soap and Water -Foul Odor after Cleansing No No No -Anesthetic Used 4% Lidocaine 4% Lidocaine 4% Lidocaine Solution Solution Solution Lower Limb Edema Present Yes No Right Calf (cm) 39 Right Ankle (cm) 25 Left Calf (cm) 37.5 38.5 38.5 Left Ankle (cm) 27.5 29 29.0 WC - Nurse 2 - General Ulcer CM Notes Start: 12/08/21 10:30 Freq: Status: Active Protocol: Activity Type Activity Date Activity User E-Sign Co-Sign Detail Recorded Client Recorded Date Recorded By Document 12/08/21 11:01 [id number] 12/08/21 11:04 Document 12/15/21 11:01 [id number] 12/15/21 11:07 Document 12/22/21 11:49 [id number] 12/22/21 12:00 12/08/21 12/15/21 12/22/21 11:01 11:01 11:49 Wound Center Nurse 2 #2- L PLANTAR FOOT POST OP -Time 11:02 11:01 11:49 -Correct Patient Yes Yes Yes -Correct Side, Site, Position Yes Yes Yes -Correct Procedure Yes Yes Yes -Procedure Performed Yes Yes Yes -Type of Procedure Debridement Debridement Debridement -Clinical Debridement Subcutaneous Subcutaneous Subcutaneous -Tissue Removed Subcutaneous Subcutaneous Subcutaneous -Post Debridement (cm) - Length 1.8 2.1 1.8 -Post Debridement (cm) - Width 5.6 5.6 5.6 -Post Debridement (cm) - Depth 1.5 1.2 0.8 -Total Square (Post) (cm) 10.08 11.76 10.08 -Area of Debridement (cm) - Length 1.8 2.1 1.8 -Area of Debridement (cm) - Width 5.6 5.6 5.6 -Total Square (Area) (cm) 10.08 11.76 10.08 -Tunneling No No No -Undermining/Tunneling No No No -Circular Undermining No No No -Wound/Ulcer Outcome Not Healed Not Healed Not Healed -Ulcer Cleansing Rinsed/ Rinsed/ Rinsed/ Irrigated with Irrigated with Irrigated with Saline Saline Saline -Foul Odor after Cleansing No No No -Bioengineered Tissue No No No -Bleeding Controlled with Pressure Pressure Pressure -Treatment Response Procedure Procedure Procedure Tolerated Well Tolerated Well Tolerated Well -Offloading No Yes Yes -Type of Offloading Other Camwalker -Other Type of Offloading [place] boot -Assistive Device(s) Wheelchair -Debridement - Subq, 1st 20sq cm Yes Yes Yes -Debridement, SubQ, ea addt'l 20sq cm 3 or part thereof #1- L DORSAL FOOT POST OP -Time 11:02 11:02 11:56 -Correct Patient Yes Yes Yes -Correct Side, Site, Position Yes Yes Yes -Correct Procedure Yes Yes Yes -Procedure Performed Yes Yes Yes -Type of Procedure Debridement Debridement Debridement -Clinical Debridement Muscle / Fascia Muscle / Fascia Subcutaneous -Tissue Removed Muscle Tendon Subcutaneous -Post Debridement (cm) - Length 6.7 9.5 8.6 -Post Debridement (cm) - Width 7 7.1 6.9 -Post Debridement (cm) - Depth 0.5 0.4 0.5 -Total Square (Post) (cm) 46.9 67.45 59.34 -Area of Debridement (cm) - Length 6.7 9.5 8.6 -Area of Debridement (cm) - Width 7 7.1 6.9 -Total Square (Area) (cm) 46.9 67.45 59.34 -Tunneling No No No -Undermining/Tunneling No No No -Circular Undermining No No No -Wound/Ulcer Outcome Not Healed Not Healed Not Healed -Ulcer Cleansing Rinsed/ Rinsed/ Rinsed/ Irrigated with Irrigated with Irrigated with Saline Saline Saline -Foul Odor after Cleansing No No No -Bioengineered Tissue No No No -Bleeding Controlled with Pressure Pressure Pressure -Treatment Response Procedure Procedure Procedure Tolerated Well Tolerated Well Tolerated Well -Offloading Yes Yes Yes -Type of Offloading Surgical Shoe Other Camwalker -Other Type of Offloading [place] boot -Assistive Device(s) Wheelchair -Debridement - Subq, 1st 20sq cm No -Debridement - Muscle / Fascia, 1st Yes Yes 20sq cm -Debridement, Muscle/Fascia, ea addt'l 2 3 20sq cm or part thereof Pain Scale: 0-10 Numeric Is Patient Pain Free? Yes Yes Yes WC - Nurse 3 - General Ulcer D/C NN Start: 12/08/21 10:30 Freq: Status: Active Protocol: Activity Type Activity Date Activity User E-Sign Co-Sign Detail Recorded Client Recorded Date Recorded By Document 12/08/21 13:36 [facility] [id number] 12/08/21 13:37 [facility] Document 12/15/21 11:15 MW [id number] 12/15/21 11:17 MW Document 12/22/21 12:07 KR [id number] 12/22/21 12:09 KR 12/08/21 12/15/21 12/22/21 13:36 11:15 12:07 Wound Care Nurse 3 #2- L PLANTAR FOOT POST OP -Ulcer Cleansing Soap and Water Rinsed/ Irrigated with Saline -Foul Odor after Cleansing No No -Negative Pressure Wound Therapy Continue N/A Continue -Setting (mmHg) 150 150 -Negative Pressure is Continuous Continuous -Regranex (If Applicable) Continue -Other Dressing black foam -Other Covering vac drape -NPWT Application Charge NPWT & NPWT & NPWT & Debridement (nc Debridement (nc Debridement (nc ) ) ) #1- L DORSAL FOOT POST OP -Ulcer Cleansing Soap and Water Rinsed/ Irrigated with Saline -Foul Odor after Cleansing No No -Negative Pressure Wound Therapy Continue N/A -Setting (mmHg) 150 -Negative Pressure is Continuous -Other Dressing black foam -Other Covering vac drape -NPWT Application Charge NPWT - Multiple NPWT - Multiple Locations Locations Left -Lotion applied to leg before No compression wrap -Compression Wrap Sal Wrap Sal Wrap Treatment Response Procedure Procedure Tolerated Well Tolerated Well Pain Scale: 0-10 Numeric Is Patient Pain Free? Yes No Yes Teaching: Wound Center Dressing Your Wound -Person Taught Patient,Family -Teaching Method Discussion, Demonstration -Response to teaching Reinforcement needed WC - Visit Discharge Discharge Condition Stable Stable Stable Ambulatory Status Wheelchair Wheelchair Ambulatory Transportation Private Auto Private Auto Private Auto Accompanied by dad father father Medication Reconcilliation completed & No provided to patient/care provider Clinical Summary of Care Provided Yes Facility Type Home Health Assessment/Plan Assessment/Plan (1) Gas gangrene of foot: CODE(S): A48.0 - Gas gangrene (2) Osteomyelitis of ankle or foot, left, acute: CODE(S): M86.172 - Other acute osteomyelitis, left ankle and foot (3) Charcot arthropathy of midfoot: CODE(S): M14.679 - Charcot's joint, unspecified ankle and foot (4) Type 2 diabetes mellitus with diabetic polyneuropathy: CODE(S): E11.42 - Type 2 diabetes mellitus with diabetic polyneuropathy QUALIFIERS: 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 Left full ulceration was examined there is significant granulation tissue forming within the base wound covering all of the midfoot bones and covering a majority of the tibialis anterior tendon to the dorsal midfoot. The plantar midfoot wound is granulating in well and no longer has exposed tendon or bone. There resolved signs of infection clinically with no residual purulent drainage or tissue necrosis. Patient is receiving IV vancomycin and ertapenem for severe gas infection, this is being managed by infectious disease. He is expected to complete a course of 6 weeks. I have recommended the patient proceeds with HBO therapy as he has confirmed osteomyelitis with acute gas infection along with a wound that demonstrates exposed tendon. The wound today was debrided excisionally down to including level of tendon of all nonviable tissue using a 5 mm dermal curette without incident. Pre and postdebridement measurements documented nursing notes. No anesthesia required due to peripheral neuropathy. Hemostasis obtained with light compression. Patient tolerated procedure well. Patient will continue wound VAC therapy as he is demonstrating significant rapid healing. He is supplementing his nutritional status with Galo. He is controlling his blood sugar well at this time. Patient has good vascular status. We will plan for TheraSkin grafting to cover the wound weeks on the dorsal foot allow the plantar foot wound to continue granulating in using the wound VAC. Patient will remain nonweightbearing to his left lower extremity, I recommend taking 81 mg aspirin daily to prevent DVT. Patient will follow up in 1 week.
[2021-12-29 10:02] VITALS: PULSE 56; TEMP 36.2; BMI 41.8
--- NOTE | 2021-12-29 10:18 | WC ---
martha wrap to tight 2 areas of redness/bruising.
--- NOTE | 2021-12-29 12:05 | PCM.WC.PN ---
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 History of Wound: This is a 41-year-old diabetic white male who presented with fevers, sweats, chills, malaise, and left foot swelling and redness, and found to have a diabetic left foot infection on November 14, 2021. 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 Initial blood cultures were positive. The patient was treated by Dr. Jordi Perkins, podiatric specialist, who performed incision and surgical debridement on the day of admission. Cultures obtained were positive for Enterococcus faecalis and Prevotella bivia. The patient required hospitalization at [facility], where he remained until he was discharged on November 21, 2021. A repeat incision and surgical debridement was performed on November 17, 2021. The Infectious Disease service was consulted, and the patient was started on intravenous antibiotics, and subsequently discharged on intravenous Invanz and vancomycin. The intravenous antibiotics are anticipated to continue for at least 6 weeks. He was discharged with a wound VAC, which continues until the current time, and surgical care related to his left foot continues under the oversight of Dr. Jordi Perkins, podiatric specialist. Patient notes significant improvement of his wound at this time and denies any constitutional symptoms. Patient denies any pain. Patient tolerating IV antibiotics well. No other complaints. Objective Data Objective Data Vital Signs: Vital Signs Temp Pulse Resp BP 97.2 F L 56 L 16 122/63 H 12/29/21 10:02 12/29/21 10:02 12/08/21 10:30 12/22/21 11:11 Oxygen Delivery Method Room Air Weight: 136.078 kg Body Mass Index (BMI) 41.8 Physical Exam Narrative Patient is alert oriented to person place and time. Patient is maintaining a nonweightbearing status to his left lower extremity with a wheelchair. Vascular: Left lower extremity vascular examination deferred there is brisk capillary fill time to the lesser digits on the left side. Neurovascular status intact right lower extremity. Neurologic: Light touch protective sensation absent to bilateral feet. Dermatologic: There is an extensive dorsal midfoot wound which extends down to the level of tendon there is noted to be desiccated extensor hallucis longus tendon and intact tibialis anterior tendon along the medial aspect of the wound. Patient demonstrates a predominantly granular wound base which is significantly improved since the previous visit to the dorsal and plantar left foot. There is approximately 10% fibronecrotic areas with exposed tibialis anterior tendon to the dorsal foot. There is resolving periwound erythema and edema. No residual crepitus or purulent drainage noted at this time. There is no to be a full-thickness plantar foot wound extending down the level of tendon which is starting to fill in, there is resolved periwound maceration. Wound demonstrates resolving signs of infection at this time. Pre and postdebridement measurements documented nursing notes. Musculoskeletal: There is noted to be a plantar lateral convexity of the left foot secondary to Charcot deformity at the level of the midfoot. There is noted to be a varus deformity of the right ankle secondary to Charcot foot and multiple incision and drainages on that side. Muscular strength is intact to bilateral lower extremity compartments. Debridement Note Debridement Note Post-Debridement Measurements and Additional Note: Post-Debridement Measurements/Treatment - Nurse 1 - General Ulcer Assessment Start: 12/08/21 10:30 Freq: Status: Active Protocol: .LOWEXApril Activity Type Activity Date Activity User E-Sign Co-Sign Detail Recorded Client Recorded Date Recorded By Document 12/08/21 10:30 MW [id number] 12/08/21 10:44 MW Document 12/15/21 10:25 AK [id number] 12/15/21 10:43 AK Document 12/22/21 11:11 KR [id number] 12/22/21 11:18 KR Document 12/29/21 10:02 AK [id number] 12/29/21 10:21 AK 12/08/21 12/15/21 12/22/21 10:30 10:25 11:11 - Today's Visit Information Type of service Initial Visit Follow-up Visit Follow-up Visit (Physician/OPTOMETRIC TECHNICIAN (Physician/OPTOMETRIC TECHNICIAN ) ) Arrival Mode Wheelchair Wheelchair Wheelchair Transfer Assistance Other Transfer Assist (Other) stand by Accompanied by dad Patient Identification Verified (Name & Yes Yes Yes ) Patient Requires Transmission-Based No No Precautions Safety Precautions NA Height and Weight Body Mass Index (BMI) 41.8 41.8 41.8 BMI Classification Obese Obese Obese Vital Signs Temperature (97.8 F-99.1 F) 97.3 F L 96.9 F L 97.2 F L Temperature Source Temporal Temporal Temporal Pulse Rate (60-100) 107 H 81 104 H Pulse Location Monitor Monitor Monitor Respiratory Rate (12-18) 16 Respiratory rate source Observation Oxygen Delivery Method Room Air Blood Pressure (90/60-120/80) 101/51 L 104/61 122/63 H Blood Pressure Mean (mm Hg) 67 75 82 Source Monitor Monitor Monitor Position Sitting Sitting Blood Pressure Location Left Arm Left Arm History Since Last Visit- (Skip if this is Patient's initial visit) Have you changed medications since your No No No last visit? Any new allergies or adverse reactions No No No Had a fall/change in ADL's that may No No No increase risk of falls Signs or symptoms of abuse and/or No No No neglect since last visit Have you been in the hospital since your No No last visit? Has dressing in place as prescribed Yes Yes Yes Has compression in place as prescribed Yes Yes N/A Has offloadiing in place as prescribed Yes N/A N/A Experienced any changes in pain level or No No No management Left Footwear Regular Shoe Custom Shoe Right Footwear Regular Shoe Regular Shoe Pain Scale: 0-10 Numeric Is Patient Pain Free? Yes Yes Yes 12/29/21 10:02 WC - Today's Visit Information Type of service Follow-up Visit (Physician/OPTOMETRIC TECHNICIAN ) Arrival Mode Transfer Assistance Transfer Assist (Other) Accompanied by Patient Identification Verified (Name & Yes ) Patient Requires Transmission-Based No Precautions Safety Precautions NA Height and Weight Body Mass Index (BMI) 41.8 BMI Classification Obese Vital Signs Temperature (97.8 F-99.1 F) 97.2 F L Temperature Source Temporal Pulse Rate (60-100) 56 L Pulse Location Monitor Respiratory Rate (12-18) Respiratory rate source Oxygen Delivery Method Blood Pressure (90/60-120/80) Blood Pressure Mean (mm Hg) Source Position Blood Pressure Location History Since Last Visit- (Skip if this is Patient's initial visit) Have you changed medications since your No last visit? Any new allergies or adverse reactions No Had a fall/change in ADL's that may No increase risk of falls Signs or symptoms of abuse and/or No neglect since last visit Have you been in the hospital since your No last visit? Has dressing in place as prescribed Yes Has compression in place as prescribed Yes Has offloadiing in place as prescribed N/A Experienced any changes in pain level or No management Left Footwear Removable Cast Walker/Walking Boot Right Footwear Pain Scale: 0-10 Numeric Is Patient Pain Free? Yes WC - Nurse 1 - General Ulcer Measurement Start: 12/08/21 10:30 Freq: Status: Active Protocol: Activity Type Activity Date Activity User E-Sign Co-Sign Detail Recorded Client Recorded Date Recorded By Document 12/08/21 10:30 MW [id number] 12/08/21 10:44 MW Document 12/15/21 10:25 AK [id number] 12/15/21 10:43 AK Document 12/22/21 11:11 KR [id number] 12/22/21 11:18 KR Document 12/29/21 10:02 AK [id number] 12/29/21 10:21 AK 12/08/21 12/15/21 12/22/21 10:30 10:25 11:11 Wound Center Nurse 1 #2- L PLANTAR FOOT POST OP -Combined with other wound No No -Current Size (cm) - Length 1.8 2 1.8 -Current Size (cm) - Width 5.5 5.6 5.5 -Current Size (cm) - Depth 1.5 1.2 0.8 -Total Square Cm 9.90 11.2 9.90 -Date of Last Picture (Recall this 12/08/21 field) -Photo Taken Yes No -Epithelialization None Present -Tunneling No No -Undermining/Tunneling No No -Circular Undermining No No -Change in Wound Grade/Stage -Exudate Amt Large Medium Large -Exudate Type Serosanguineous Serosanguineous Serosanguineous -Wound Margin Distinct, Distinct, Distinct, Outline Outline Outline Attached Attached Attached -Granulation Amt Large (67-100%) Large (67-100%) Large (67-100%) -Granulation Quality Red Red Red -Slough/Fibrin Yes No -Necrosis Amt Small (1-33%) None Present (0 Small (1-33%) %) -Necrotic Tissue Type Adherent Slough Adherent Slough -Structure Exposed N/A Tendon -Texture ([place]-wound Skin Appearance) Assessed, Assessed Assessed, Scarring Scarring -Moisture ([place]-wound Skin Appearance) Assessed, Assessed, No Abnormality, Maceration Maceration Assessed -Color ([place]-wound Skin Appearance) Assessed, No Abnormality, No Abnormality, Erythema Assessed Assessed -Temperature ([place]-wound Skin No Abnormality No Abnormality No Abnormality Appearance) (Pt Warm) (Pt Warm) (Pt Warm) -Tenderness on Palpation ([place]-wound No No No Skin Appearance) -Ulcer Cleansing Soap and Water Rinsed/ Soap and Water Irrigated with Saline -Foul Odor after Cleansing No No No -Anesthetic Used 4% Lidocaine 4% Lidocaine 4% Lidocaine Solution Solution Solution #1- L DORSAL FOOT POST OP -Combined with other wound No No -Current Size (cm) - Length 6.6 9.5 8.6 -Current Size (cm) - Width 7 7 6.8 -Current Size (cm) - Depth 0.5 0.2 0.5 -Total Square Cm 46.2 66.5 58.48 -Date of Last Picture (Recall this 12/08/21 field) -Photo Taken Yes No -Epithelialization Small 1-33% -Tunneling No No -Undermining/Tunneling No No -Circular Undermining No No -Change in Wound Grade/Stage No -Exudate Amt Large Medium Large -Exudate Type Serosanguineous Serosanguineous -Wound Margin Distinct, Distinct, Distinct, Outline Outline Outline Attached Attached Attached -Granulation Amt Large (67-100%) Large (67-100%) Large (67-100%) -Granulation Quality Red Red Red -Slough/Fibrin Yes No -Necrosis Amt Small (1-33%) Small (1-33%) -Necrotic Tissue Type Adherent Slough Adherent Slough -Structure Exposed Tendon N/A Tendon -Texture ([place]-wound Skin Appearance) Assessed Assessed, Assessed, Scarring Scarring -Moisture ([place]-wound Skin Appearance) Assessed Assessed No Abnormality, Assessed -Color ([place]-wound Skin Appearance) Assessed Assessed No Abnormality, Assessed -Temperature ([place]-wound Skin No Abnormality No Abnormality No Abnormality Appearance) (Pt Warm) (Pt Warm) (Pt Warm) -Tenderness on Palpation ([place]-wound No No No Skin Appearance) -Ulcer Cleansing Soap and Water Soap and Water Soap and Water -Foul Odor after Cleansing No No No -Anesthetic Used 4% Lidocaine 4% Lidocaine 4% Lidocaine Solution Solution Solution Lower Limb Edema Present Yes No Right Calf (cm) 39 Right Ankle (cm) 25 Left Calf (cm) 37.5 38.5 38.5 Left Ankle (cm) 27.5 29 29.0 12/29/21 10:02 Wound Center Nurse 1 #2- L PLANTAR FOOT POST OP -Combined with other wound No -Current Size (cm) - Length 1.5 -Current Size (cm) - Width 4.8 -Current Size (cm) - Depth 0.6 -Total Square Cm 7.20 -Date of Last Picture (Recall this field) -Photo Taken No -Epithelialization -Tunneling No -Undermining/Tunneling No -Circular Undermining No -Change in Wound Grade/Stage No -Exudate Amt Medium -Exudate Type Serosanguineous -Wound Margin Distinct, Outline Attached -Granulation Amt Medium (34-66%) -Granulation Quality Pale,[place] -Slough/Fibrin Yes -Necrosis Amt Medium (34-66%) -Necrotic Tissue Type Adherent Slough -Structure Exposed N/A -Texture ([place]-wound Skin Appearance) Assessed, Scarring -Moisture ([place]-wound Skin Appearance) Assessed, Maceration -Color ([place]-wound Skin Appearance) No Abnormality, Assessed -Temperature ([place]-wound Skin No Abnormality Appearance) (Pt Warm) -Tenderness on Palpation ([place]-wound No Skin Appearance) -Ulcer Cleansing Soap and Water -Foul Odor after Cleansing No -Anesthetic Used 4% Lidocaine Solution #1- L DORSAL FOOT POST OP -Combined with other wound No -Current Size (cm) - Length 8 -Current Size (cm) - Width 6.5 -Current Size (cm) - Depth 0.2 -Total Square Cm 52.0 -Date of Last Picture (Recall this field) -Photo Taken No -Epithelialization -Tunneling No -Undermining/Tunneling No -Circular Undermining No -Change in Wound Grade/Stage No -Exudate Amt Medium -Exudate Type Serosanguineous -Wound Margin Distinct, Outline Attached -Granulation Amt Large (67-100%) -Granulation Quality Red -Slough/Fibrin Yes -Necrosis Amt Small (1-33%) -Necrotic Tissue Type Adherent Slough -Structure Exposed N/A -Texture ([place]-wound Skin Appearance) No Abnormality, Assessed -Moisture ([place]-wound Skin Appearance) No Abnormality, Assessed -Color ([place]-wound Skin Appearance) No Abnormality, Assessed -Temperature ([place]-wound Skin No Abnormality Appearance) (Pt Warm) -Tenderness on Palpation ([place]-wound No Skin Appearance) -Ulcer Cleansing Soap and Water -Foul Odor after Cleansing No -Anesthetic Used 4% Lidocaine Solution Lower Limb Edema Present Right Calf (cm) Right Ankle (cm) Left Calf (cm) 36 Left Ankle (cm) 28 12/29/21 10:18 Wound Center by Boogie Mitchell ace wrap to tight 2 areas of redness/bruising. Initialized on 12/29/21 10:18 - END OF NOTE WC - Nurse 2 - General Ulcer CM Notes Start: 12/08/21 10:30 Freq: Status: Active Protocol: Activity Type Activity Date Activity User E-Sign Co-Sign Detail Recorded Client Recorded Date Recorded By Document 12/08/21 11:01 [id number] 12/08/21 11:04 Document 12/15/21 11:01 [id number] 12/15/21 11:07 Document 12/22/21 11:49 [id number] 12/22/21 12:00 Document 12/29/21 11:12 [id number] 12/29/21 11:15 12/08/21 12/15/21 12/22/21 11:01 11:01 11:49 Wound Center Nurse 2 #2- L PLANTAR FOOT POST OP -Time 11:02 11:01 11:49 -Correct Patient Yes Yes Yes -Correct Side, Site, Position Yes Yes Yes -Correct Procedure Yes Yes Yes -Procedure Performed Yes Yes Yes -Type of Procedure Debridement Debridement Debridement -Clinical Debridement Subcutaneous Subcutaneous Subcutaneous -Tissue Removed Subcutaneous Subcutaneous Subcutaneous -Post Debridement (cm) - Length 1.8 2.1 1.8 -Post Debridement (cm) - Width 5.6 5.6 5.6 -Post Debridement (cm) - Depth 1.5 1.2 0.8 -Total Square (Post) (cm) 10.08 11.76 10.08 -Area of Debridement (cm) - Length 1.8 2.1 1.8 -Area of Debridement (cm) - Width 5.6 5.6 5.6 -Total Square (Area) (cm) 10.08 11.76 10.08 -Tunneling No No No -Undermining/Tunneling No No No -Circular Undermining No No No -Wound/Ulcer Outcome Not Healed Not Healed Not Healed -Ulcer Cleansing Rinsed/ Rinsed/ Rinsed/ Irrigated with Irrigated with Irrigated with Saline Saline Saline -Foul Odor after Cleansing No No No -Bioengineered Tissue No No No -Bleeding Controlled with Pressure Pressure Pressure -Treatment Response Procedure Procedure Procedure Tolerated Well Tolerated Well Tolerated Well -Offloading No Yes Yes -Type of Offloading Other Camwalker -Other Type of Offloading [place] boot -Assistive Device(s) Wheelchair -Debridement - Subq, 1st 20sq cm Yes Yes Yes -Debridement, SubQ, ea addt'l 20sq cm 3 or part thereof #1- L DORSAL FOOT POST OP -Time 11:02 11:02 11:56 -Correct Patient Yes Yes Yes -Correct Side, Site, Position Yes Yes Yes -Correct Procedure Yes Yes Yes -Procedure Performed Yes Yes Yes -Type of Procedure Debridement Debridement Debridement -Clinical Debridement Muscle / Fascia Muscle / Fascia Subcutaneous -Tissue Removed Muscle Tendon Subcutaneous -Post Debridement (cm) - Length 6.7 9.5 8.6 -Post Debridement (cm) - Width 7 7.1 6.9 -Post Debridement (cm) - Depth 0.5 0.4 0.5 -Total Square (Post) (cm) 46.9 67.45 59.34 -Area of Debridement (cm) - Length 6.7 9.5 8.6 -Area of Debridement (cm) - Width 7 7.1 6.9 -Total Square (Area) (cm) 46.9 67.45 59.34 -Tunneling No No No -Undermining/Tunneling No No No -Circular Undermining No No No -Wound/Ulcer Outcome Not Healed Not Healed Not Healed -Ulcer Cleansing Rinsed/ Rinsed/ Rinsed/ Irrigated with Irrigated with Irrigated with Saline Saline Saline -Foul Odor after Cleansing No No No -Bioengineered Tissue No No No -Type of Bioengineered Tissue -Expiration Date -Product Lot Number -Percent Used -Lot number of Saline Used -Bleeding Controlled with Pressure Pressure Pressure -Treatment Response Procedure Procedure Procedure Tolerated Well Tolerated Well Tolerated Well -Offloading Yes Yes Yes -Type of Offloading Surgical Shoe Other Camwalker -Other Type of Offloading [place] boot -Assistive Device(s) Wheelchair -Debridement - Subq, 1st 20sq cm No -Debridement - Muscle / Fascia, 1st Yes Yes 20sq cm -Debridement, Muscle/Fascia, ea addt'l 2 3 20sq cm or part thereof -Apply Skin Sub - 1st 25 sq cm - Feet -Apply Skin Sub - each addt'l 25 sq cm - Feet -[place]ask[place] (per sq cm) Pain Scale: 0-10 Numeric Is Patient Pain Free? Yes Yes Yes 12/29/21 11:12 Wound Center Nurse 2 #2- L PLANTAR FOOT POST OP -Time 11:12 -Correct Patient Yes -Correct Side, Site, Position Yes -Correct Procedure Yes -Procedure Performed Yes -Type of Procedure Debridement -Clinical Debridement Subcutaneous -Tissue Removed Subcutaneous -Post Debridement (cm) - Length 1.6 -Post Debridement (cm) - Width 4.8 -Post Debridement (cm) - Depth 0.6 -Total Square (Post) (cm) 7.68 -Area of Debridement (cm) - Length 1.6 -Area of Debridement (cm) - Width 4.8 -Total Square (Area) (cm) 7.68 -Tunneling No -Undermining/Tunneling No -Circular Undermining No -Wound/Ulcer Outcome Not Healed -Ulcer Cleansing Rinsed/ Irrigated with Saline -Foul Odor after Cleansing No -Bioengineered Tissue No -Bleeding Controlled with Pressure -Treatment Response Procedure Tolerated Well -Offloading Yes -Type of Offloading Surgical Shoe -Other Type of Offloading -Assistive Device(s) -Debridement - Subq, 1st 20sq cm Yes -Debridement, SubQ, ea addt'l 20sq cm or part thereof #1- L DORSAL FOOT POST OP -Time 11:13 -Correct Patient Yes -Correct Side, Site, Position Yes -Correct Procedure Yes -Procedure Performed Yes -Type of Procedure Debridement -Clinical Debridement Subcutaneous -Tissue Removed Subcutaneous -Post Debridement (cm) - Length 8 -Post Debridement (cm) - Width 6.6 -Post Debridement (cm) - Depth 0.2 -Total Square (Post) (cm) 52.8 -Area of Debridement (cm) - Length 8 -Area of Debridement (cm) - Width 6.6 -Total Square (Area) (cm) 52.8 -Tunneling No -Undermining/Tunneling No -Circular Undermining No -Wound/Ulcer Outcome Not Healed -Ulcer Cleansing Not Cleansed -Foul Odor after Cleansing No -Bioengineered Tissue Yes -Type of Bioengineered Tissue [place] -Expiration Date 03/24/26 -Product Lot Number [id number] -Percent Used 100 -Lot number of Saline Used [id number] -Bleeding Controlled with Pressure -Treatment Response Procedure Tolerated Well -Offloading Yes -Type of Offloading Surgical Shoe -Other Type of Offloading -Assistive Device(s) -Debridement - Subq, 1st 20sq cm No -Debridement - Muscle / Fascia, 1st 20sq cm -Debridement, Muscle/Fascia, ea addt'l 20sq cm or part thereof -Apply Skin Sub - 1st 25 sq cm - Feet 1 -Apply Skin Sub - each addt'l 25 sq cm 2 - Feet -[place]ask[place] (per sq cm) 39 Pain Scale: 0-10 Numeric Is Patient Pain Free? Yes WC - Nurse 3 - General Ulcer D/C NN Start: 12/08/21 10:30 Freq: Status: Active Protocol: Activity Type Activity Date Activity User E-Sign Co-Sign Detail Recorded Client Recorded Date Recorded By Document 12/08/21 13:36 [facility] [id number] 12/08/21 13:37 [facility] Document 12/15/21 11:15 MW [id number] 12/15/21 11:17 MW Document 12/22/21 12:07 KR [id number] 12/22/21 12:09 KR Document 12/29/21 11:42 [facility] [id number] 12/29/21 11:43 [facility] 12/08/21 12/15/21 12/22/21 13:36 11:15 12:07 Wound Care Nurse 3 #2- L PLANTAR FOOT POST OP -Ulcer Cleansing Soap and Water Rinsed/ Irrigated with Saline -Foul Odor after Cleansing No No -Negative Pressure Wound Therapy Continue N/A Continue -Setting (mmHg) 150 150 -Negative Pressure is Continuous Continuous -Regranex (If Applicable) Continue -Other Dressing black foam -Other Covering vac drape -NPWT Application Charge NPWT & NPWT & NPWT & Debridement (nc Debridement (nc Debridement (nc ) ) ) #1- L DORSAL FOOT POST OP -Ulcer Cleansing Soap and Water Rinsed/ Irrigated with Saline -Foul Odor after Cleansing No No -Negative Pressure Wound Therapy Continue N/A -Setting (mmHg) 150 -Negative Pressure is Continuous -Other Dressing black foam -Primary Dressing Covered/Secured with -Other Covering vac drape -NPWT Application Charge NPWT - Multiple NPWT - Multiple Locations Locations Left -Lotion applied to leg before No compression wrap -Compression Wrap Sal Wrap Sal Wrap Treatment Response Procedure Procedure Tolerated Well Tolerated Well Pain Scale: 0-10 Numeric Is Patient Pain Free? Yes No Yes Teaching: Wound Center Dressing Your Wound -Person Taught Patient,Family -Teaching Method Discussion, Demonstration -Response to teaching Reinforcement needed WC - Visit Discharge Discharge Condition Stable Stable Stable Ambulatory Status Wheelchair Wheelchair Ambulatory Transportation Private Auto Private Auto Private Auto Accompanied by dad father father Medication Reconcilliation completed & No provided to patient/care provider Clinical Summary of Care Provided Yes Facility Type Home Health 12/29/21 11:42 Wound Care Nurse 3 #2- L PLANTAR FOOT POST OP -Ulcer Cleansing Rinsed/ Irrigated with Saline -Foul Odor after Cleansing No -Negative Pressure Wound Therapy Continue -Setting (mmHg) 150 -Negative Pressure is Continuous -Regranex (If Applicable) -Other Dressing -Other Covering -NPWT Application Charge NPWT & Debridement (nc ) #1- L DORSAL FOOT POST OP -Ulcer Cleansing -Foul Odor after Cleansing -Negative Pressure Wound Therapy -Setting (mmHg) -Negative Pressure is -Other Dressing [place] -Primary Dressing Covered/Secured with Dry Gauze & Roll Gauze, Secured with Tape,Other -Other Covering ABD -NPWT Application Charge Left -Lotion applied to leg before compression wrap -Compression Wrap Sal Wrap Treatment Response Procedure Tolerated Well Pain Scale: 0-10 Numeric Is Patient Pain Free? Yes Teaching: Wound Center Dressing Your Wound -Person Taught -Teaching Method -Response to teaching WC - Visit Discharge Discharge Condition Stable Ambulatory Status Wheelchair Transportation Private Auto Accompanied by DAD Medication Reconcilliation completed & provided to patient/care provider Clinical Summary of Care Provided Facility Type Home Health Assessment/Plan Assessment/Plan (1) Gas gangrene of foot: CODE(S): A48.0 - Gas gangrene (2) Osteomyelitis of ankle or foot, left, acute: CODE(S): M86.172 - Other acute osteomyelitis, left ankle and foot (3) Charcot arthropathy of midfoot: CODE(S): M14.679 - Charcot's joint, unspecified ankle and foot (4) Type 2 diabetes mellitus with diabetic polyneuropathy: CODE(S): E11.42 - Type 2 diabetes mellitus with diabetic polyneuropathy QUALIFIERS: Diabetes mellitus intermediate manager insulin use: without long-term use Qualified Code(s): E11.42 - Type 2 diabetes mellitus with diabetic polyneuropathy (5) 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 muscle: CODE(S): L97.523 - 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 muscle PLAN: Patient examined evaluated, all fine discussed with patient detail. Left full ulceration was examined there is significant granulation tissue forming within the base wound covering all of the midfoot bones and covering a majority of the tibialis anterior tendon to the dorsal midfoot. The plantar midfoot wound is granulating in well and no longer has exposed tendon or bone. There resolved signs of infection clinically with no residual purulent drainage or tissue necrosis. Patient is receiving IV vancomycin and ertapenem for severe gas infection, this is being managed by infectious disease. He is expected to complete a course of 6 weeks. PICC line is being removed this week. Patient has no residual signs of infection at this time. HBO therapy was declined per insurance. TheraSkin application declined; however we will proceed with this as the rep has agreed to allow us to trial the product. The wound today was debrided excisionally down to including level of tendon of all nonviable tissue using a 5 mm dermal curette without incident. Pre and postdebridement measurements documented nursing notes. No anesthesia required due to peripheral neuropathy. Hemostasis obtained with light compression. Patient tolerated procedure well. Patient will continue wound VAC therapy to plantar foot wound. TheraSkin graft was used to the dorsal foot wound this was a 5.1 x 7.6 cm graft that was used to its entirety, no waste. Expiration date was 03/24/2026. ID number [id number]. The graft was secured to the wound edges using Dermabond skin adhesive. Then, the graft was was secured with Adaptic and Steri-Strips. He is supplementing his nutritional status with Galo. He is controlling his blood sugar well at this time. Patient has good vascular status. We will evaluate the patient next week to ensure no recurrent infection and good wound healing progress is made. Patient will remain nonweightbearing to his left lower extremity, I recommend taking 81 mg aspirin daily to prevent DVT. Patient will follow up in 1 week.
[2022-01-05 10:15] VITALS: BP 98/53; PULSE 92; RESP 16; TEMP 36.2; BMI 41.8
--- NOTE | 2022-01-05 11:06 | PN.PCM_ITS ---
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 History of Wound: This is a 41-year-old diabetic white male who presented with fevers, sweats, chills, malaise, and left foot swelling and redness, and found to have a diabetic left foot infection on November 14, 2021. 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 Initial blood cultures were positive. The patient was treated by Dr. Jordi Perkins, podiatric specialist, who performed incision and surgical debridement on the day of admission. Cultures obtained were positive for Enterococcus faecalis and Prevotella bivia. The patient required hospitalization at [facility], where he remained until he was discharged on November 21, 2021. A repeat incision and surgical debridement was performed on November 17, 2021. The Infectious Disease service was consulted, and the patient was started on intravenous antibiotics, and subsequently discharged on intravenous Invanz and vancomycin. The intravenous antibiotics are anticipated to continue for at least 6 weeks. He was discharged with a wound VAC, which continues until the current time, and surgical care related to his left foot continues under the oversight of Dr. Jordi Perkins, podiatric specialist. Patient notes significant improvement of his wound at this time and denies any constitutional symptoms. Patient denies any pain. Patient tolerating IV antibiotics well. No other complaints. Objective Data Objective Data Vital Signs: Vital Signs Temp Pulse Resp BP 97.2 F L 92 16 98/53 L 01/05/22 10:15 01/05/22 10:15 01/05/22 10:15 01/05/22 10:15 Oxygen Delivery Method Room Air Weight: 136.078 kg Body Mass Index (BMI) 41.8 Physical Exam Narrative Patient is alert oriented to person place and time. Patient is maintaining a nonweightbearing status to his left lower extremity with a wheelchair. Vascular: Left lower extremity vascular examination deferred there is brisk capillary fill time to the lesser digits on the left side. Neurovascular status intact right lower extremity. Neurologic: Light touch protective sensation absent to bilateral feet. Dermatologic: Dorsal foot wound appears to be improving well at this time there is 100% granular base with overlying incorporating TheraSkin graft. No signs of infection at this time. Plantar left midfoot wound demonstrates 100% granular base with no deep probing undermining or signs of infection. Pre and postdebridement measurements document nursing notes. Musculoskeletal: There is noted to be a plantar lateral convexity of the left foot secondary to Charcot deformity at the level of the midfoot. There is noted to be a varus deformity of the right ankle secondary to Charcot foot and multiple incision and drainages on that side. Muscular strength is intact to bilateral lower extremity compartments. Debridement Note Debridement Note Post-Debridement Measurements and Additional Note: Post-Debridement Measurements/Treatment - Nurse 1 - General Ulcer Assessment Start: 12/08/21 10:30 Freq: Status: Active Protocol: GWEN Activity Type Activity Date Activity User E-Sign Co-Sign Detail Recorded Client Recorded Date Recorded By Document 12/08/21 10:30 MW [id number] 12/08/21 10:44 MW Document 12/15/21 10:25 AK [id number] 12/15/21 10:43 AK Document 12/22/21 11:11 KR [id number] 12/22/21 11:18 KR Document 12/29/21 10:02 AK [id number] 12/29/21 10:21 AK Document 01/05/22 10:15 MW [id number] 01/05/22 10:20 MW 12/08/21 12/15/21 12/22/21 10:30 10:25 11:11 - Today's Visit Information Type of service Initial Visit Follow-up Visit Follow-up Visit (Physician/AIR DEFENSE CONTROL OFFICER (Physician/AIR DEFENSE CONTROL OFFICER ) ) Arrival Mode Wheelchair Wheelchair Wheelchair Transfer Assistance Other Transfer Assist (Other) stand by Accompanied by dad Patient Identification Verified (Name & Yes Yes Yes ) Patient Requires Transmission-Based No No Precautions Safety Precautions NA Finger Stick Blood Sugar(mg/dl) (if indicated): Blood Sugar Height and Weight Body Mass Index (BMI) 41.8 41.8 41.8 BMI Classification Obese Obese Obese Vital Signs Temperature (97.8 F-99.1 F) 97.3 F L 96.9 F L 97.2 F L Temperature Source Temporal Temporal Temporal Pulse Rate (60-100) 107 H 81 104 H Pulse Location Monitor Monitor Monitor Respiratory Rate (12-18) 16 Respiratory rate source Observation Oxygen Delivery Method Room Air Blood Pressure (90/60-120/80) 101/51 L 104/61 122/63 H Blood Pressure Mean (mm Hg) 67 75 82 Source Monitor Monitor Monitor Position Sitting Sitting Blood Pressure Location Left Arm Left Arm History Since Last Visit- (Skip if this is Patient's initial visit) Have you changed medications since your No No No last visit? Any new allergies or adverse reactions No No No Had a fall/change in ADL's that may No No No increase risk of falls Signs or symptoms of abuse and/or No No No neglect since last visit Have you been in the hospital since your No No last visit? Has dressing in place as prescribed Yes Yes Yes Has compression in place as prescribed Yes Yes N/A Has offloadiing in place as prescribed Yes N/A N/A Experienced any changes in pain level or No No No management Left Footwear Regular Shoe Custom Shoe Right Footwear Regular Shoe Regular Shoe Pain Scale: 0-10 Numeric Is Patient Pain Free? Yes Yes Yes 12/29/21 01/05/22 10:02 10:15 - Today's Visit Information Type of service Follow-up Visit Follow-up Visit (Physician/AIR DEFENSE CONTROL OFFICER (Physician/AIR DEFENSE CONTROL OFFICER ) ) Arrival Mode Wheelchair Transfer Assistance None Transfer Assist (Other) Accompanied by dad Patient Identification Verified (Name & Yes Yes ) Patient Requires Transmission-Based No No Precautions Safety Precautions NA NA Finger Stick Blood Sugar(mg/dl) (if 103 indicated): Blood Sugar Stated by Patient Height and Weight Body Mass Index (BMI) 41.8 41.8 BMI Classification Obese Obese Vital Signs Temperature (97.8 F-99.1 F) 97.2 F L 97.2 F L Temperature Source Temporal Temporal Pulse Rate (60-100) 56 L 92 Pulse Location Monitor Monitor Respiratory Rate (12-18) 16 Respiratory rate source Observation Oxygen Delivery Method Room Air Blood Pressure (90/60-120/80) 98/53 L Blood Pressure Mean (mm Hg) 68 Source Monitor Position Sitting Blood Pressure Location Right Arm History Since Last Visit- (Skip if this is Patient's initial visit) Have you changed medications since your No No last visit? Any new allergies or adverse reactions No No Had a fall/change in ADL's that may No No increase risk of falls Signs or symptoms of abuse and/or No No neglect since last visit Have you been in the hospital since your No No last visit? Has dressing in place as prescribed Yes Yes Has compression in place as prescribed Yes Yes Has offloadiing in place as prescribed N/A N/A Experienced any changes in pain level or No No management Left Footwear Removable Cast No Footwear Walker/Walking Boot Right Footwear Removable Cast Walker/Walking Boot Pain Scale: 0-10 Numeric Is Patient Pain Free? Yes Yes WC - Nurse 1 - General Ulcer Measurement Start: 12/08/21 10:30 Freq: Status: Active Protocol: Activity Type Activity Date Activity User E-Sign Co-Sign Detail Recorded Client Recorded Date Recorded By Document 12/08/21 10:30 MW [id number] 12/08/21 10:44 MW Document 12/15/21 10:25 AK [id number] 12/15/21 10:43 AK Document 12/22/21 11:11 KR [id number] 12/22/21 11:18 KR Document 12/29/21 10:02 AK [id number] 12/29/21 10:21 AK Document 01/05/22 10:15 MW [id number] 01/05/22 10:20 MW 12/08/21 12/15/21 12/22/21 10:30 10:25 11:11 Wound Center Nurse 1 #2- L PLANTAR FOOT POST OP -Combined with other wound No No -Current Size (cm) - Length 1.8 2 1.8 -Current Size (cm) - Width 5.5 5.6 5.5 -Current Size (cm) - Depth 1.5 1.2 0.8 -Total Square Cm 9.90 11.2 9.90 -Date of Last Picture (Recall this 12/08/21 field) -Photo Taken Yes No -Epithelialization None Present -Tunneling No No -Undermining/Tunneling No No -Circular Undermining No No -Change in Wound Grade/Stage -Exudate Amt Large Medium Large -Exudate Type Serosanguineous Serosanguineous Serosanguineous -Wound Margin Distinct, Distinct, Distinct, Outline Outline Outline Attached Attached Attached -Granulation Amt Large (67-100%) Large (67-100%) Large (67-100%) -Granulation Quality Red Red Red -Slough/Fibrin Yes No -Necrosis Amt Small (1-33%) None Present (0 Small (1-33%) %) -Necrotic Tissue Type Adherent Slough Adherent Slough -Structure Exposed N/A Tendon -Texture ([place]-wound Skin Appearance) Assessed, Assessed Assessed, Scarring Scarring -Moisture ([place]-wound Skin Appearance) Assessed, Assessed, No Abnormality, Maceration Maceration Assessed -Color ([place]-wound Skin Appearance) Assessed, No Abnormality, No Abnormality, Erythema Assessed Assessed -Temperature ([place]-wound Skin No Abnormality No Abnormality No Abnormality Appearance) (Pt Warm) (Pt Warm) (Pt Warm) -Tenderness on Palpation ([place]-wound No No No Skin Appearance) -Ulcer Cleansing Soap and Water Rinsed/ Soap and Water Irrigated with Saline -Foul Odor after Cleansing No No No -Anesthetic Used 4% Lidocaine 4% Lidocaine 4% Lidocaine Solution Solution Solution #1- L DORSAL FOOT POST OP -Combined with other wound No No -Current Size (cm) - Length 6.6 9.5 8.6 -Current Size (cm) - Width 7 7 6.8 -Current Size (cm) - Depth 0.5 0.2 0.5 -Total Square Cm 46.2 66.5 58.48 -Date of Last Picture (Recall this 12/08/21 field) -Photo Taken Yes No -Epithelialization Small 1-33% -Tunneling No No -Undermining/Tunneling No No -Circular Undermining No No -Change in Wound Grade/Stage No -Exudate Amt Large Medium Large -Exudate Type Serosanguineous Serosanguineous -Wound Margin Distinct, Distinct, Distinct, Outline Outline Outline Attached Attached Attached -Granulation Amt Large (67-100%) Large (67-100%) Large (67-100%) -Granulation Quality Red Red Red -Slough/Fibrin Yes No -Necrosis Amt Small (1-33%) Small (1-33%) -Necrotic Tissue Type Adherent Slough Adherent Slough -Structure Exposed Tendon N/A Tendon -Texture ([place]-wound Skin Appearance) Assessed Assessed, Assessed, Scarring Scarring -Moisture ([place]-wound Skin Appearance) Assessed Assessed No Abnormality, Assessed -Color ([place]-wound Skin Appearance) Assessed Assessed No Abnormality, Assessed -Temperature ([place]-wound Skin No Abnormality No Abnormality No Abnormality Appearance) (Pt Warm) (Pt Warm) (Pt Warm) -Tenderness on Palpation ([place]-wound No No No Skin Appearance) -Ulcer Cleansing Soap and Water Soap and Water Soap and Water -Foul Odor after Cleansing No No No -Anesthetic Used 4% Lidocaine 4% Lidocaine 4% Lidocaine Solution Solution Solution -Wound Comment(s) Lower Limb Edema Present Yes No Right Calf (cm) 39 Right Ankle (cm) 25 Left Calf (cm) 37.5 38.5 38.5 Left Ankle (cm) 27.5 29 29.0 12/29/21 01/05/22 10:02 10:15 Wound Center Nurse 1 #2- L PLANTAR FOOT POST OP -Combined with other wound No No -Current Size (cm) - Length 1.5 1.1 -Current Size (cm) - Width 4.8 4.6 -Current Size (cm) - Depth 0.6 0.5 -Total Square Cm 7.20 5.06 -Date of Last Picture (Recall this field) -Photo Taken No No -Epithelialization None Present -Tunneling No No -Undermining/Tunneling No No -Circular Undermining No No -Change in Wound Grade/Stage No -Exudate Amt Medium Medium -Exudate Type Serosanguineous Serosanguineous -Wound Margin Distinct, Flat & Intact Outline Attached -Granulation Amt Medium (34-66%) Large (67-100%) -Granulation Quality Pale,[place] Red -Slough/Fibrin Yes Yes -Necrosis Amt Medium (34-66%) Small (1-33%) -Necrotic Tissue Type Adherent Slough Adherent Slough -Structure Exposed N/A N/A -Texture ([place]-wound Skin Appearance) Assessed, Assessed, Scarring Localized Edema ,Scarring -Moisture ([place]-wound Skin Appearance) Assessed, Assessed, Maceration Maceration -Color ([place]-wound Skin Appearance) No Abnormality, No Abnormality, Assessed Assessed -Temperature ([place]-wound Skin No Abnormality No Abnormality Appearance) (Pt Warm) (Pt Warm) -Tenderness on Palpation ([place]-wound No No Skin Appearance) -Ulcer Cleansing Soap and Water Soap and Water -Foul Odor after Cleansing No No -Anesthetic Used 4% Lidocaine 5% Lidocaine Solution Gel #1- L DORSAL FOOT POST OP -Combined with other wound No No -Current Size (cm) - Length 8 -Current Size (cm) - Width 6.5 -Current Size (cm) - Depth 0.2 -Total Square Cm 52.0 -Date of Last Picture (Recall this field) -Photo Taken No -Epithelialization -Tunneling No -Undermining/Tunneling No -Circular Undermining No -Change in Wound Grade/Stage No -Exudate Amt Medium Medium -Exudate Type Serosanguineous Serosanguineous -Wound Margin Distinct, Outline Attached -Granulation Amt Large (67-100%) -Granulation Quality Red -Slough/Fibrin Yes -Necrosis Amt Small (1-33%) -Necrotic Tissue Type Adherent Slough -Structure Exposed N/A -Texture ([place]-wound Skin Appearance) No Abnormality, Assessed, Assessed Localized Edema -Moisture ([place]-wound Skin Appearance) No Abnormality, No Abnormality, Assessed Assessed -Color ([place]-wound Skin Appearance) No Abnormality, No Abnormality, Assessed Assessed -Temperature ([place]-wound Skin No Abnormality Appearance) (Pt Warm) -Tenderness on Palpation ([place]-wound No Skin Appearance) -Ulcer Cleansing Soap and Water Soap and Water -Foul Odor after Cleansing No -Anesthetic Used 4% Lidocaine Solution -Wound Comment(s) [place], wound adaptic touch, steri strips in place . Lower Limb Edema Present Yes Right Calf (cm) Right Ankle (cm) Left Calf (cm) 36 37.2 Left Ankle (cm) 28 26.0 12/29/21 10:18 Wound Center by Boogie Mitchell ace wrap to tight 2 areas of redness/bruising. Initialized on 12/29/21 10:18 - END OF NOTE WC - Nurse 2 - General Ulcer CM Notes Start: 12/08/21 10:30 Freq: Status: Active Protocol: Activity Type Activity Date Activity User E-Sign Co-Sign Detail Recorded Client Recorded Date Recorded By Document 12/08/21 11:01 BRIAN [id number] 12/08/21 11:04 Document 12/15/21 11:01 BRIAN [id number] 12/15/21 11:07 Document 12/22/21 11:49 BRIAN [id number] 12/22/21 12:00 Document 12/29/21 11:12 [id number] 12/29/21 11:15 JF Edit Result 12/29/21 11:12 JF (1) [id number] 12/29/21 16:13 PL Document 01/05/22 11:02 [id number] 01/05/22 11:04 JF (1) #2- L PLANTAR FOOT POST OP - Debridement, SubQ, ea addt'l 20sq cm => 3 or part thereof #1- L DORSAL FOOT POST OP - Bioengineered Tissue Yes => No - Type of Bioengineered Tissue [place] => - Apply Skin Sub - 1st 25 sq cm - Feet 1 => - Apply Skin Sub - each addt'l 25 sq cm 2 => - Feet - [place] (per sq cm) 39 => 12/08/21 12/15/21 12/22/21 11:01 11:01 11:49 Wound Center Nurse 2 #2- L PLANTAR FOOT POST OP -Time 11: 11:01 11:49 -Correct Patient Yes Yes Yes -Correct Side, Site, Position Yes Yes Yes -Correct Procedure Yes Yes Yes -Procedure Performed Yes Yes Yes -Type of Procedure Debridement Debridement Debridement -Clinical Debridement Subcutaneous Subcutaneous Subcutaneous -Tissue Removed Subcutaneous Subcutaneous Subcutaneous -Post Debridement (cm) - Length 1.8 2.1 1.8 -Post Debridement (cm) - Width 5.6 5.6 5.6 -Post Debridement (cm) - Depth 1.5 1.2 0.8 -Total Square (Post) (cm) 10.08 11.76 10.08 -Area of Debridement (cm) - Length 1.8 2.1 1.8 -Area of Debridement (cm) - Width 5.6 5.6 5.6 -Total Square (Area) (cm) 10. 11.76 10.08 -Tunneling No No No -Undermining/Tunneling No No No -Circular Undermining No No No -Wound/Ulcer Outcome Not Healed Not Healed Not Healed -Ulcer Cleansing Rinsed/ Rinsed/ Rinsed/ Irrigated with Irrigated with Irrigated with Saline Saline Saline -Foul Odor after Cleansing No No No -Bioengineered Tissue No No No -Bleeding Controlled with Pressure Pressure Pressure -Treatment Response Procedure Procedure Procedure Tolerated Well Tolerated Well Tolerated Well -Offloading No Yes Yes -Type of Offloading Other Camwalker -Other Type of Offloading [place] boot -Assistive Device(s) Wheelchair -Debridement - Subq, 1st 20sq cm Yes Yes Yes -Debridement, SubQ, ea addt'l 20sq cm 3 or part thereof #1- L DORSAL FOOT POST OP -Time 11: 11:02 11:56 -Correct Patient Yes Yes Yes -Correct Side, Site, Position Yes Yes Yes -Correct Procedure Yes Yes Yes -Procedure Performed Yes Yes Yes -Type of Procedure Debridement Debridement Debridement -Clinical Debridement Muscle / Fascia Muscle / Fascia Subcutaneous -Tissue Removed Muscle Tendon Subcutaneous -Post Debridement (cm) - Length 6.7 9.5 8.6 -Post Debridement (cm) - Width 7 7.1 6.9 -Post Debridement (cm) - Depth 0.5 0.4 0.5 -Total Square (Post) (cm) 46.9 67.45 59.34 -Area of Debridement (cm) - Length 6.7 9.5 8.6 -Area of Debridement (cm) - Width 7 7.1 6.9 -Total Square (Area) (cm) 46.9 67.45 59.34 -Tunneling No No No -Undermining/Tunneling No No No -Circular Undermining No No No -Wound/Ulcer Outcome Not Healed Not Healed Not Healed -Ulcer Cleansing Rinsed/ Rinsed/ Rinsed/ Irrigated with Irrigated with Irrigated with Saline Saline Saline -Foul Odor after Cleansing No No No -Bioengineered Tissue No No No -Expiration Date -Product Lot Number -Percent Used -Lot number of Saline Used -Bleeding Controlled with Pressure Pressure Pressure -Treatment Response Procedure Procedure Procedure Tolerated Well Tolerated Well Tolerated Well -Offloading Yes Yes Yes -Type of Offloading Surgical Shoe Other [place] -Other Type of Offloading [place] boot -Assistive Device(s) Wheelchair -Debridement - Subq, 1st 20sq cm No -Debridement - Muscle / Fascia, 1st Yes Yes 20sq cm -Debridement, Muscle/Fascia, ea addt'l 2 3 20sq cm or part thereof Pain Scale: 0-10 Numeric Is Patient Pain Free? Yes Yes Yes 12/29/21 01/05/22 11:12 11:02 Wound Center Nurse 2 #2- L PLANTAR FOOT POST OP -Time 11:12 11:03 -Correct Patient Yes Yes -Correct Side, Site, Position Yes Yes -Correct Procedure Yes Yes -Procedure Performed Yes Yes -Type of Procedure Debridement Debridement -Clinical Debridement Subcutaneous Subcutaneous -Tissue Removed Subcutaneous Subcutaneous -Post Debridement (cm) - Length 1.6 1.2 -Post Debridement (cm) - Width 4.8 4.6 -Post Debridement (cm) - Depth 0.6 0.5 -Total Square (Post) (cm) 7.68 5.52 -Area of Debridement (cm) - Length 1.6 1.2 -Area of Debridement (cm) - Width 4.8 4.6 -Total Square (Area) (cm) 7.68 5.52 -Tunneling No No -Undermining/Tunneling No No -Circular Undermining No No -Wound/Ulcer Outcome Not Healed Not Healed -Ulcer Cleansing Rinsed/ Rinsed/ Irrigated with Irrigated with Saline Saline -Foul Odor after Cleansing No No -Bioengineered Tissue No No -Bleeding Controlled with Pressure Pressure -Treatment Response Procedure Procedure Tolerated Well Tolerated Well -Offloading Yes Yes -Type of Offloading Surgical Shoe Surgical Shoe -Other Type of Offloading -Assistive Device(s) Wheelchair -Debridement - Subq, 1st 20sq cm Yes Yes -Debridement, SubQ, ea addt'l 20sq cm 3 or part thereof #1- L DORSAL FOOT POST OP -Time 11:13 -Correct Patient Yes No -Correct Side, Site, Position Yes No -Correct Procedure Yes No -Procedure Performed Yes No -Type of Procedure Debridement -Clinical Debridement Subcutaneous -Tissue Removed Subcutaneous -Post Debridement (cm) - Length 8 -Post Debridement (cm) - Width 6.6 -Post Debridement (cm) - Depth 0.2 -Total Square (Post) (cm) 52.8 -Area of Debridement (cm) - Length 8 -Area of Debridement (cm) - Width 6.6 -Total Square (Area) (cm) 52.8 -Tunneling No -Undermining/Tunneling No -Circular Undermining No -Wound/Ulcer Outcome Not Healed Not Healed -Ulcer Cleansing Not Cleansed -Foul Odor after Cleansing No -Bioengineered Tissue No -Expiration Date 03/24/26 -Product Lot Number [id number] -Percent Used 100 -Lot number of Saline Used [id number] -Bleeding Controlled with Pressure -Treatment Response Procedure Tolerated Well -Offloading Yes -Type of Offloading Surgical Shoe -Other Type of Offloading -Assistive Device(s) -Debridement - Subq, 1st 20sq cm No -Debridement - Muscle / Fascia, 1st 20sq cm -Debridement, Muscle/Fascia, ea addt'l 20sq cm or part thereof Pain Scale: 0-10 Numeric Is Patient Pain Free? Yes Yes WC - Nurse 3 - General Ulcer D/C NN Start: 12/08/21 10:30 Freq: Status: Active Protocol: Activity Type Activity Date Activity User E-Sign Co-Sign Detail Recorded Client Recorded Date Recorded By Document 12/08/21 13:36 [facility] [id number] 12/08/21 13:37 BM Document 12/15/21 11:15 MW [id number] 12/15/21 11:17 MW Document 12/22/21 12:07 KR [id number] 12/22/21 12:09 KR Document 12/29/21 11:42 [facility] [id number] 12/29/21 11:43 [facility] 12/08/21 12/15/21 12/22/21 13:36 11:15 12:07 Wound Care Nurse 3 #2- L PLANTAR FOOT POST OP -Ulcer Cleansing Soap and Water Rinsed/ Irrigated with Saline -Foul Odor after Cleansing No No -Negative Pressure Wound Therapy Continue N/A Continue -Setting (mmHg) 150 150 -Negative Pressure is Continuous Continuous -Regranex (If Applicable) Continue -Other Dressing black foam -Other Covering vac drape -NPWT Application Charge NPWT & NPWT & NPWT & Debridement (nc Debridement (nc Debridement (nc ) ) ) #1- L DORSAL FOOT POST OP -Ulcer Cleansing Soap and Water Rinsed/ Irrigated with Saline -Foul Odor after Cleansing No No -Negative Pressure Wound Therapy Continue N/A -Setting (mmHg) 150 -Negative Pressure is Continuous -Other Dressing black foam -Primary Dressing Covered/Secured with -Other Covering vac drape -NPWT Application Charge NPWT - Multiple NPWT - Multiple Locations Locations Left -Lotion applied to leg before No compression wrap -Compression Wrap Sal Wrap Sal Wrap Treatment Response Procedure Procedure Tolerated Well Tolerated Well Pain Scale: 0-10 Numeric Is Patient Pain Free? Yes No Yes Teaching: Wound Center Dressing Your Wound -Person Taught Patient,Family -Teaching Method Discussion, Demonstration -Response to teaching Reinforcement needed WC - Visit Discharge Discharge Condition Stable Stable Stable Ambulatory Status Wheelchair Wheelchair Ambulatory Transportation Private Auto Private Auto Private Auto Accompanied by dad father father Medication Reconcilliation completed & No provided to patient/care provider Clinical Summary of Care Provided Yes Facility Type Home Health 12/29/21 11:42 Wound Care Nurse 3 #2- L PLANTAR FOOT POST OP -Ulcer Cleansing Rinsed/ Irrigated with Saline -Foul Odor after Cleansing No -Negative Pressure Wound Therapy Continue -Setting (mmHg) 150 -Negative Pressure is Continuous -Regranex (If Applicable) -Other Dressing -Other Covering -NPWT Application Charge NPWT & Debridement (nc ) #1- L DORSAL FOOT POST OP -Ulcer Cleansing -Foul Odor after Cleansing -Negative Pressure Wound Therapy -Setting (mmHg) -Negative Pressure is -Other Dressing [place] -Primary Dressing Covered/Secured with Dry Gauze & Roll Gauze, Secured with Tape,Other -Other Covering ABD -NPWT Application Charge Left -Lotion applied to leg before compression wrap -Compression Wrap Sal Wrap Treatment Response Procedure Tolerated Well Pain Scale: 0-10 Numeric Is Patient Pain Free? Yes Teaching: Wound Center Dressing Your Wound -Person Taught -Teaching Method -Response to teaching WC - Visit Discharge Discharge Condition Stable Ambulatory Status Wheelchair Transportation Private Auto Accompanied by DAD Medication Reconcilliation completed & provided to patient/care provider Clinical Summary of Care Provided Facility Type Home Health Assessment/Plan Assessment/Plan (1) Gas gangrene of foot: CODE(S): A48.0 - Gas gangrene (2) Osteomyelitis of ankle or foot, left, acute: CODE(S): M86.172 - Other acute osteomyelitis, left ankle and foot (3) Charcot arthropathy of midfoot: CODE(S): M14.679 - Charcot's joint, unspecified ankle and foot (4) Type 2 diabetes mellitus with diabetic polyneuropathy: CODE(S): E11.42 - Type 2 diabetes mellitus with diabetic polyneuropathy QUALIFIERS: Diabetes mellitus intermediate insulin use: without intermediate use Qualified Code(s): E11.42 - Type 2 diabetes mellitus with diabetic polyneuropathy (5) 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 muscle: CODE(S): L97.523 - 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 muscle PLAN: Patient examined evaluated, all fine discussed with patient detail. Patient is currently off IV antibiotics, no residual signs of infection at this time. Patient notes minimal drainage. TheraSkin graft was noted to be intact to the dorsal left foot with intact overlying Adaptic and Steri-Strips. Left plantar midfoot wound was excisionally debrided down to including level of subcutaneous tissue of all nonviable tissue using a 5 mm dermal curette. No anesthesia required due to neuropathy. Hemostasis obtained with light compression. Patient consented and tolerated procedure well. Will continue wound VAC to the plantar left midfoot wound and a dry sterile dressing to the dorsal midfoot wound which has an overlying TheraSkin graft and Adaptic. Patient will continue nonweightbearing and take 81 mg aspirin for DVT prophylaxis. Patient will follow up in 1 week.
== END 2022-01-05 23:59 | disposition home or self-care (01) ==
LOC: WC 10:30
PROVIDERS: PCP Student in an Organized Health Care Education/Training Program; Visit Provider Podiatrist
DX: E11.621 Type 2 diabetes mellitus with foot ulcer (principal); A48.0 Gas gangrene; L97.523 Non-pressure chronic ulcer of other part of left foot with necrosis of muscle; M86.172 Other acute osteomyelitis, left ankle and foot; E11.42 Type 2 diabetes mellitus with diabetic polyneuropathy; E11.610 Type 2 diabetes mellitus with diabetic neuropathic arthropathy; E11.59 Type 2 diabetes mellitus with other circulatory complications; B95.2 Enterococcus as the cause of diseases classified elsewhere
CPT/HCPCS: 11042; 11043; 11045; 11046; 15275; 15276; Q4121

== ENCOUNTER 2022-02-02 10:45 | Outpatient (RCR) | payer BC, SELFPAY ==
[2022-01-06 01:07] VITALS: BP 98/53; PULSE 92; RESP 16; TEMP 36.2; BMI 41.8
[2022-01-12 10:43] VITALS: TEMP 36.6; BMI 41.8
[2022-01-12 10:51] VITALS: BP 117/58; PULSE 87; BMI 41.8
--- NOTE | 2022-01-12 11:25 | PN.PCM_ITS ---
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 History of Wound: This is a 41-year-old diabetic white male who presented with fevers, sweats, chills, malaise, and left foot swelling and redness, and found to have a diabetic left foot infection on November 14, 2021. 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 Initial blood cultures were positive. The patient was treated by Dr. Jordi Perkins, podiatric specialist, who performed incision and surgical debridement on the day of admission. Cultures obtained were positive for Enterococcus faecalis and Prevotella bivia. The patient required hospitalization at [facility], where he remained until he was discharged on November 21, 2021. A repeat incision and surgical debridement was performed on November 17, 2021. The Infectious Disease service was consulted, and the patient was started on intravenous antibiotics, and subsequently discharged on intravenous Invanz and vancomycin. The intravenous antibiotics are anticipated to continue for at least 6 weeks. He was discharged with a wound VAC, which continues until the current time, and surgical care related to his left foot continues under the oversight of Dr. Jordi Perkins, podiatric specialist. Patient notes significant improvement of his wound at this time and denies any constitutional symptoms. Patient denies any pain. Patient tolerating IV antibiotics well. No other complaints. Objective Data Objective Data Vital Signs: Vital Signs Temp Pulse Resp BP 97.9 F 87 16 117/58 L 01/12/22 10:43 01/12/22 10:51 01/06/22 01:07 01/12/22 10:51 Weight: 136.078 kg Body Mass Index (BMI) 41.8 Physical Exam Narrative Patient is alert oriented to person place and time. Patient is maintaining a nonweightbearing status to his left lower extremity with a wheelchair. Vascular: Left lower extremity vascular examination deferred there is brisk capillary fill time to the lesser digits on the left side. Neurovascular status intact right lower extremity. Neurologic: Light touch protective sensation absent to bilateral feet. Dermatologic: Dorsal foot wound appears to be improving well at this time there is 100% granular base with overlying incorporating TheraSkin graft. No signs of infection at this time. Plantar left midfoot wound demonstrates 100% granular base with no deep probing undermining or signs of infection. Pre and postdebridement measurements document nursing notes. Musculoskeletal: There is noted to be a plantar lateral convexity of the left foot secondary to Charcot deformity at the level of the midfoot. There is noted to be a varus deformity of the right ankle secondary to Charcot foot and multiple incision and drainages on that side. Muscular strength is intact to bilateral lower extremity compartments. Debridement Note Debridement Note Post-Debridement Measurements and Additional Note: Post-Debridement Measurements/Treatment - Nurse 1 - General Ulcer Assessment Start: 01/12/22 10:43 Freq: Status: Active Protocol: [email or web address] Activity Type Activity Date Activity User E-Sign Co-Sign Detail Recorded Client Recorded Date Recorded By Document 01/12/22 10:43 ASHISH [id number] 01/12/22 10:47 AK Document 01/12/22 10:51 ASHISH [id number] 01/12/22 10:51 AK 01/12/22 01/12/22 10:43 10:51 - Today's Visit Information Type of service Follow-up Visit (Physician/REAL ESTATE ASSISTANT ) Arrival Mode Wheelchair Patient Identification Verified (Name & Yes ) Patient Requires Transmission-Based No Precautions Safety Precautions NA Height and Weight Body Mass Index (BMI) 41.8 41.8 BMI Classification Obese Obese Vital Signs Temperature (97.8 F-99.1 F) 97.9 F Temperature Source Temporal Pulse Rate (60-100) 87 Pulse Location Monitor Blood Pressure (90/60-120/80) 117/58 L Blood Pressure Mean (mm Hg) 77 History Since Last Visit- (Skip if this is Patient's initial visit) Left Footwear Surgical Shoe with pressure relief insole Right Footwear Removable Cast Walker/Walking Boot Pain Scale: 0-10 Numeric Is Patient Pain Free? Yes Yes [facility] Nurse 1 - General Ulcer Measurement Start: 01/12/22 10:43 Freq: Status: Active Protocol: Activity Type Activity Date Activity User E-Sign Co-Sign Detail Recorded Client Recorded Date Recorded By Document 01/12/22 10:43 ASHISH [id number] 01/12/22 10:47 AK 01/12/22 10:43 Wound Center Nurse 1 #2- L PLANTAR FOOT POST OP -Combined with other wound No -Current Size (cm) - Length 0.8 -Current Size (cm) - Width 4 -Current Size (cm) - Depth 0.3 -Total Square Cm 3.2 -Date of Last Picture (Recall this 01/12/22 field) -Photo Taken Yes -Tunneling No -Undermining/Tunneling No -Circular Undermining No -Change in Wound Grade/Stage No -Exudate Amt Medium -Exudate Type Serosanguineous -Wound Margin Distinct, Outline Attached -Granulation Amt Medium (34-66%) -Granulation Quality [place],Red -Necrosis Amt None Present (0 %) -Texture ([place]-wound Skin Appearance) Assessed, Induration -Moisture ([place]-wound Skin Appearance) Assessed -Color ([place]-wound Skin Appearance) Assessed -Temperature ([place]-wound Skin No Abnormality Appearance) (Pt Warm) -Tenderness on Palpation ([place]-wound No Skin Appearance) -Ulcer Cleansing Soap and Water -Foul Odor after Cleansing No -Anesthetic Used 4% Lidocaine Solution #1- L DORSAL FOOT POST OP -Current Size (cm) - Length 8 -Current Size (cm) - Width 5.8 -Current Size (cm) - Depth 0.2 -Total Square Cm 46.4 -Photo Taken Yes -Tunneling No -Undermining/Tunneling No -Circular Undermining No -Change in Wound Grade/Stage No -Exudate Amt Medium -Exudate Type Serosanguineous -Wound Margin Distinct, Outline Attached -Granulation Amt Large (67-100%) -Granulation Quality Red -Slough/Fibrin Yes -Necrosis Amt Small (1-33%) -Necrotic Tissue Type Adherent Slough -Structure Exposed N/A -Texture ([place]-wound Skin Appearance) No Abnormality, Assessed -Moisture ([place]-wound Skin Appearance) No Abnormality, Assessed -Color ([place]-wound Skin Appearance) No Abnormality, Assessed -Temperature ([place]-wound Skin No Abnormality Appearance) (Pt Warm) -Tenderness on Palpation ([place]-wound No Skin Appearance) -Ulcer Cleansing Soap and Water -Foul Odor after Cleansing No -Anesthetic Used 4% Lidocaine Solution WC - Nurse 2 - General Ulcer CM Notes Start: 01/12/22 10:43 Freq: Status: Active Protocol: Activity Type Activity Date Activity User E-Sign Co-Sign Detail Recorded Client Recorded Date Recorded By Document 01/12/22 11:14 BRIAN [id number] 01/12/22 11:16 01/12/22 11:14 Wound Center Nurse 2 #2- L PLANTAR FOOT POST OP -Time 11:14 -Correct Patient Yes -Correct Side, Site, Position Yes -Correct Procedure Yes -Procedure Performed Yes -Type of Procedure Debridement -Clinical Debridement Subcutaneous -Tissue Removed Subcutaneous -Post Debridement (cm) - Length 0.8 -Post Debridement (cm) - Width 4.1 -Post Debridement (cm) - Depth 0.3 -Total Square (Post) (cm) 3.28 -Area of Debridement (cm) - Length 0.8 -Area of Debridement (cm) - Width 4.1 -Total Square (Area) (cm) 3.28 -Tunneling No -Undermining/Tunneling No -Circular Undermining No -Wound/Ulcer Outcome Not Healed -Ulcer Cleansing Rinsed/ Irrigated with Saline -Foul Odor after Cleansing No -Bioengineered Tissue No -Bleeding Controlled with Pressure -Treatment Response Procedure Tolerated Well -Offloading Yes -Type of Offloading Cam[place] -Debridement - Subq, 1st 20sq cm No #1- L DORSAL FOOT POST OP -Time 11:15 -Correct Patient Yes -Correct Side, Site, Position Yes -Correct Procedure Yes -Procedure Performed Yes -Type of Procedure Debridement -Clinical Debridement Subcutaneous -Tissue Removed Subcutaneous -Post Debridement (cm) - Length 8.1 -Post Debridement (cm) - Width 5.8 -Post Debridement (cm) - Depth 0.2 -Total Square (Post) (cm) 46.98 -Area of Debridement (cm) - Length 8.1 -Area of Debridement (cm) - Width 5.8 -Total Square (Area) (cm) 46.98 -Tunneling No -Undermining/Tunneling No -Circular Undermining No -Wound/Ulcer Outcome Not Healed -Ulcer Cleansing Rinsed/ Irrigated with Saline -Foul Odor after Cleansing No -Bioengineered Tissue No -Bleeding Controlled with Pressure -Treatment Response Procedure Tolerated Well -Offloading Yes -Type of Offloading Surgical Shoe -Debridement - Subq, 1st 20sq cm Yes -Debridement, SubQ, ea addt'l 20sq cm 2 or part thereof Pain Scale: 0-10 Numeric Is Patient Pain Free? Yes WC - Nurse 3 - General Ulcer D/C NN Start: 01/12/22 10:43 Freq: Status: Active Protocol: Activity Type Activity Date Activity User E-Sign Co-Sign Detail Recorded Client Recorded Date Recorded By Document 01/12/22 11:16 BRIAN [id number] 01/12/22 11:18 BRIAN 01/12/22 11:16 Wound Care Nurse 3 #2- L PLANTAR FOOT POST OP -Ulcer Cleansing Rinsed/ Irrigated with Saline -Foul Odor after Cleansing No -Primary Dressing Applied Promogran Ale Matter -Other Covering superabsorber -Optilok 6.5x10 1 -Promogran Ale Matter 1 #1- L DORSAL FOOT POST OP -Ulcer Cleansing Rinsed/ Irrigated with Saline -Foul Odor after Cleansing No -Primary Dressing Applied NonAdherent Contact Layer -Other Covering superabsorber -Optilok 6.5x10 1 Left -Lotion applied to leg before Yes compression wrap -Multi-Layered Wrap Application Multi-Layer Comp - Left ($) Pain Scale: 0-10 Numeric Is Patient Pain Free? Yes WC - Visit Discharge Discharge Condition Stable Ambulatory Status Ambulatory, Wheelchair Transportation Private Auto Accompanied by father Medication Reconcilliation completed & Yes provided to patient/care provider Clinical Summary of Care Provided Yes Assessment/Plan Assessment/Plan (1) 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 muscle: CODE(S): L97.523 - 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 muscle PLAN: Patient examined evaluated, all fine discussed with patient detail. Patient is currently off IV antibiotics, no residual signs of infection at this time. Patient notes minimal drainage. TheraSkin graft was noted to be intact to the dorsal left foot, some loose graft was excised from the wound bed and removed all other graft appears to be incorporated into the bed itself. This was left undisturbed. Left plantar midfoot wound was excisionally debrided down to including level of subcutaneous tissue of all nonviable tissue using a 5 mm dermal curette. No anesthesia required due to neuropathy. Hemostasis obtained with light compression. Patient consented and tolerated procedure well. Will discontinue wound VAC to the plantar left midfoot wound and a dry sterile dressing to the dorsal midfoot wound which has an overlying TheraSkin graft and Adaptic. We will switch to Ale to the plantar foot. Adaptic to dorsal foot at TheraSkin graft Ale to the plantar foot, dry sterile dressing, 3M compression wrap. This will be changed by home health care dressing. Patient will continue nonweightbearing and take 81 mg aspirin for DVT prophylaxis. Patient will follow up in 1 week. (2) 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 muscle: CODE(S): L97.523 - 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 muscle
[2022-01-19 10:21] VITALS: BP 96/62; PULSE 88; TEMP 36.1; BMI 41.8
--- NOTE | 2022-01-19 10:59 | PN.PCM_ITS ---
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 History of Wound: This is a 41-year-old diabetic white male who presented with fevers, sweats, chills, malaise, and left foot swelling and redness, and found to have a diabetic left foot infection on November 14, 2021. 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 Initial blood cultures were positive. The patient was treated by Dr. Jordi Perkins, podiatric specialist, who performed incision and surgical debridement on the day of admission. Cultures obtained were positive for Enterococcus faecalis and Prevotella bivia. The patient required hospitalization at [facility], where he remained until he was discharged on November 21, 2021. A repeat incision and surgical debridement was performed on November 17, 2021. The Infectious Disease service was consulted, and the patient was started on intravenous antibiotics, and subsequently discharged on intravenous Invanz and vancomycin. The intravenous antibiotics are anticipated to continue for at least 6 weeks. He was discharged with a wound VAC, which continues until the current time, and surgical care related to his left foot continues under the oversight of Dr. Jordi Perkins, podiatric specialist. Patient notes significant improvement of his wound at this time and denies any constitutional symptoms. Patient denies any pain. Patient tolerating IV antibiotics well. No other complaints. Objective Data Objective Data Vital Signs: Vital Signs Temp Pulse Resp BP 96.9 F L 88 16 96/62 01/19/22 10:21 01/19/22 10:21 01/06/22 01:07 01/19/22 10:21 Weight: 136.078 kg Body Mass Index (BMI) 41.8 Physical Exam Narrative Patient is alert oriented to person place and time. Patient is maintaining a nonweightbearing status to his left lower extremity with a wheelchair. Vascular: Left lower extremity vascular examination deferred there is brisk capillary fill time to the lesser digits on the left side. Neurovascular status intact right lower extremity. Neurologic: Light touch protective sensation absent to bilateral feet. Dermatologic: Dorsal foot wound appears to be improving well at this time there is 100% granular base with overlying incorporating TheraSkin graft. No signs of infection at this time. Plantar left midfoot wound demonstrates 100% granular base with no deep probing undermining or signs of infection. Pre and postdebridement measurements document nursing notes. Musculoskeletal: There is noted to be a plantar lateral convexity of the left foot secondary to Charcot deformity at the level of the midfoot. There is noted to be a varus deformity of the right ankle secondary to Charcot foot and multiple incision and drainages on that side. Muscular strength is intact to bilateral lower extremity compartments. Debridement Note Debridement Note Post-Debridement Measurements and Additional Note: Post-Debridement Measurements/Treatment - Nurse 1 - General Ulcer Assessment Start: 01/12/22 10:43 Freq: Status: Active Protocol: [email or web address] Activity Type Activity Date Activity User E-Sign Co-Sign Detail Recorded Client Recorded Date Recorded By Document 01/12/22 10:43 ASHISH [id number] 01/12/22 10:47 AK Document 01/12/22 10:51 AK [id number] 01/12/22 10:51 AK Document 01/19/22 10:21 AK [id number] 01/19/22 10:24 AK 01/12/22 01/12/22 01/19/22 10:43 10:51 10:21 - Today's Visit Information Type of service Follow-up Visit Follow-up Visit (Physician/TERRAZZO LAYER HELPER (Physician/TERRAZZO LAYER HELPER ) ) Arrival Mode Wheelchair Wheelchair Patient Identification Verified (Name & Yes Yes ) Patient Requires Transmission-Based No Precautions Safety Precautions NA Height and Weight Body Mass Index (BMI) 41.8 41.8 41.8 BMI Classification Obese Obese Obese Vital Signs Temperature (97.8 F-99.1 F) 97.9 F 96.9 F L Temperature Source Temporal Temporal Pulse Rate (60-100) 87 88 Pulse Location Monitor Monitor Blood Pressure (90/60-120/80) 117/58 L 96/62 Blood Pressure Mean (mm Hg) 77 73 Source Monitor Have you changed medications since your No last visit? Any new allergies or adverse reactions No Had a fall/change in ADL's that may No increase risk of falls Signs or symptoms of abuse and/or No neglect since last visit Have you been in the hospital since your No last visit? Has dressing in place as prescribed Yes Has compression in place as prescribed Yes Has offloadiing in place as prescribed N/A Experienced any changes in pain level or No management History Since Last Visit- (Skip if this is Patient's initial visit) Left Footwear Surgical Shoe with pressure relief insole Right Footwear Removable Cast Walker/Walking Boot Pain Scale: 0-10 Numeric Is Patient Pain Free? Yes Yes Yes WC - Nurse 1 - General Ulcer Measurement Start: 01/12/22 10:43 Freq: Status: Active Protocol: Activity Type Activity Date Activity User E-Sign Co-Sign Detail Recorded Client Recorded Date Recorded By Document 01/12/22 10:43 MS [id number] 01/12/22 10:47 MS Document 01/19/22 10:21 AK [id number] 01/19/22 10:24 AK 01/12/22 01/19/22 10:43 10:21 Wound Center Nurse 1 #2- L PLANTAR FOOT POST OP -Combined with other wound No No -Current Size (cm) - Length 0.8 4 -Current Size (cm) - Width 4 1 -Current Size (cm) - Depth 0.3 0.4 -Total Square Cm 3.2 4 -Date of Last Picture (Recall this 01/12/22 field) -Photo Taken Yes No -Epithelialization None Present -Tunneling No No -Undermining/Tunneling No No -Circular Undermining No No -Change in Wound Grade/Stage No No -Exudate Amt Medium Medium -Exudate Type Serosanguineous Serosanguineous -Wound Margin Distinct, Distinct, Outline Outline Attached Attached -Granulation Amt Medium (34-66%) Medium (34-66%) -Granulation Quality [place],Red [place],Red -Slough/Fibrin Yes -Necrosis Amt None Present (0 Medium (34-66%) %) -Necrotic Tissue Type Adherent Slough -Texture ([place]-wound Skin Appearance) Assessed, No Abnormality, Induration Assessed -Moisture ([place]-wound Skin Appearance) Assessed No Abnormality, Assessed -Color ([place]-wound Skin Appearance) Assessed No Abnormality, Assessed -Temperature ([place]-wound Skin No Abnormality No Abnormality Appearance) (Pt Warm) (Pt Warm) -Tenderness on Palpation ([place]-wound No No Skin Appearance) -Ulcer Cleansing Soap and Water Soap and Water -Foul Odor after Cleansing No No -Anesthetic Used 4% Lidocaine 4% Lidocaine Solution Solution,5% Lidocaine Gel #1- L DORSAL FOOT POST OP -Combined with other wound No -Current Size (cm) - Length 8 8 -Current Size (cm) - Width 5.8 5.8 -Current Size (cm) - Depth 0.2 0.2 -Total Square Cm 46.4 46.4 -Photo Taken Yes No -Tunneling No No -Undermining/Tunneling No No -Circular Undermining No No -Change in Wound Grade/Stage No No -Exudate Amt Medium Medium -Exudate Type Serosanguineous Serosanguineous -Wound Margin Distinct, Distinct, Outline Outline Attached Attached -Granulation Amt Large (67-100%) Large (67-100%) -Granulation Quality Red Red -Slough/Fibrin Yes Yes -Necrosis Amt Small (1-33%) Small (1-33%) -Necrotic Tissue Type Adherent Slough Adherent Slough -Structure Exposed N/A N/A -Texture ([place]-wound Skin Appearance) No Abnormality, No Abnormality, Assessed Assessed -Moisture ([place]-wound Skin Appearance) No Abnormality, No Abnormality, Assessed Assessed -Color ([place]-wound Skin Appearance) No Abnormality, No Abnormality, Assessed Assessed -Temperature ([place]-wound Skin No Abnormality No Abnormality Appearance) (Pt Warm) (Pt Warm) -Tenderness on Palpation ([place]-wound No No Skin Appearance) -Ulcer Cleansing Soap and Water Soap and Water -Foul Odor after Cleansing No No -Anesthetic Used 4% Lidocaine 4% Lidocaine Solution Solution,5% Lidocaine Gel Lower Limb Edema Present NA WC - Nurse 2 - General Ulcer CM Notes Start: 01/12/22 10:43 Freq: Status: Active Protocol: Activity Type Activity Date Activity User E-Sign Co-Sign Detail Recorded Client Recorded Date Recorded By Document 01/12/22 11:14 [id number] 01/12/22 11:16 Document 01/19/22 10:42 [id number] 01/19/22 10:56 01/12/22 01/19/22 11:14 10:42 Wound Center Nurse 2 #2- L PLANTAR FOOT POST OP -Time 11:14 10:45 -Correct Patient Yes Yes -Correct Side, Site, Position Yes Yes -Correct Procedure Yes Yes -Procedure Performed Yes Yes -Type of Procedure Debridement Debridement -Clinical Debridement Subcutaneous Subcutaneous -Tissue Removed Subcutaneous Subcutaneous -Post Debridement (cm) - Length 0.8 4.1 -Post Debridement (cm) - Width 4.1 1 -Post Debridement (cm) - Depth 0.3 0.4 -Total Square (Post) (cm) 3.28 4.1 -Area of Debridement (cm) - Length 0.8 4.1 -Area of Debridement (cm) - Width 4.1 1.0 -Total Square (Area) (cm) 3.28 4.10 -Tunneling No No -Undermining/Tunneling No No -Circular Undermining No No -Wound/Ulcer Outcome Not Healed Not Healed -Ulcer Cleansing Rinsed/ Rinsed/ Irrigated with Irrigated with Saline Saline -Foul Odor after Cleansing No No -Bioengineered Tissue No No -Bleeding Controlled with Pressure Pressure -Treatment Response Procedure Procedure Tolerated Well Tolerated Well -Offloading Yes Yes -Type of Offloading Camwalker Other -Other Type of Offloading hoh boot -Assistive Device(s) Wheelchair -Debridement - Subq, 1st 20sq cm No No #1- L DORSAL FOOT POST OP -Time 11:15 10:42 -Correct Patient Yes Yes -Correct Side, Site, Position Yes Yes -Correct Procedure Yes Yes -Procedure Performed Yes Yes -Type of Procedure Debridement Debridement -Clinical Debridement Subcutaneous Subcutaneous -Tissue Removed Subcutaneous Subcutaneous -Post Debridement (cm) - Length 8.1 5.0 -Post Debridement (cm) - Width 5.8 8 -Post Debridement (cm) - Depth 0.2 0.4 -Total Square (Post) (cm) 46.98 40.0 -Area of Debridement (cm) - Length 8.1 5 -Area of Debridement (cm) - Width 5.8 8 -Total Square (Area) (cm) 46.98 40 -Tunneling No No -Undermining/Tunneling No No -Circular Undermining No No -Wound/Ulcer Outcome Not Healed Not Healed -Ulcer Cleansing Rinsed/ Rinsed/ Irrigated with Irrigated with Saline Saline -Foul Odor after Cleansing No No -Bioengineered Tissue No Yes -Type of Bioengineered Tissue Theraskin -Expiration Date 04/10/26 -Product Lot Number [id number] -Percent Used 100 -Lot number of Saline Used [id number] -Bleeding Controlled with Pressure Pressure -Treatment Response Procedure Procedure Tolerated Well Tolerated Well -Offloading Yes Yes -Type of Offloading Surgical Shoe Surgical Shoe -Assistive Device(s) Wheelchair -Debridement - Subq, 1st 20sq cm Yes Yes -Debridement, SubQ, ea addt'l 20sq cm 2 2 or part thereof -Apply Skin Sub - 1st 25 sq cm - Feet 0 -Theraskin (per sq cm) 0 Pain Scale: 0-10 Numeric Is Patient Pain Free? Yes Yes - Nurse 3 - General Ulcer D/C NN Start: 01/12/22 10:43 Freq: Status: Active Protocol: Activity Type Activity Date Activity User E-Sign Co-Sign Detail Recorded Client Recorded Date Recorded By Document 01/12/22 11:16 BRIAN [id number] 01/12/22 11:18 BRIAN 01/12/22 11:16 Wound Care Nurse 3 #2- L PLANTAR FOOT POST OP -Ulcer Cleansing Rinsed/ Irrigated with Saline -Foul Odor after Cleansing No -Primary Dressing Applied Promogran Ale Matter -Other Covering superabsorber -Optilok 6.5x10 1 -Promogran Ale Matter 1 #1- L DORSAL FOOT POST OP -Ulcer Cleansing Rinsed/ Irrigated with Saline -Foul Odor after Cleansing No -Primary Dressing Applied NonAdherent Contact Layer -Other Covering superabsorber -Optilok 6.5x10 1 Left -Lotion applied to leg before Yes compression wrap -Multi-Layered Wrap Application Multi-Layer Comp - Left ($) Pain Scale: 0-10 Numeric Is Patient Pain Free? Yes WC - Visit Discharge Discharge Condition Stable Ambulatory Status Ambulatory, Wheelchair Transportation Private Auto Accompanied by father Medication Reconcilliation completed & Yes provided to patient/care provider Clinical Summary of Care Provided Yes Assessment/Plan Assessment/Plan (1) 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 muscle: CODE(S): L97.523 - 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 muscle PLAN: Patient examined evaluated, all fine discussed with patient detail. Patient is currently off IV antibiotics, no residual signs of infection at this time. Patient notes minimal drainage. Wounds healing significantly every week. Left dorsal foot wound and plantar foot wound were excisionally debrided of all nonviable tissue down to including level of subcutaneous tissue using a 5 mm dermal curette without incident. Hemostasis obtained with light compression. No anesthesia required due to neuropathy. Patient tolerated procedure well. Pr e and postdebridement measurements document nursing notes. A TheraSkin graft was applied to the dorsal left foot wound and adhered using Skin-Prep and glue. Overlying Adaptic and Steri-Strips were applied along with a bolster dressing and 3M compression lab Ale was applied to the plantar foot wound. Patient will continue nonweightbearing and it was discussed that once a plantar wound heals we will likely initiate protected weightbearing in Cam walking boot versus [place] walking boot. Patient will follow up in 1 week continue taking baby aspirin for DVT prophylaxis. No signs of DVT at this time.
[2022-01-26 11:01] VITALS: BP 112/65; PULSE 91; TEMP 36.2; BMI 41.8
--- NOTE | 2022-01-26 11:25 | PN.PCM_ITS ---
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 History of Wound: This is a 41-year-old diabetic white male who presented with fevers, sweats, chills, malaise, and left foot swelling and redness, and found to have a diabetic left foot infection on November 14, 2021. 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 Initial blood cultures were positive. The patient was treated by Dr. Jordi Perkins, podiatric specialist, who performed incision and surgical debridement on the day of admission. Cultures obtained were positive for Enterococcus faecalis and Prevotella bivia. The patient required hospitalization at [facility], where he remained until he was discharged on November 21, 2021. A repeat incision and surgical debridement was performed on November 17, 2021. The Infectious Disease service was consulted, and the patient was started on intravenous antibiotics, and subsequently discharged on intravenous Invanz and vancomycin. The intravenous antibiotics are anticipated to continue for at least 6 weeks. He was discharged with a wound VAC, which continues until the current time, and surgical care related to his left foot continues under the oversight of Dr. Jordi Perkins, podiatric specialist. Patient notes significant improvement of his wound at this time and denies any constitutional symptoms. Patient denies any pain. Patient tolerating IV antibiotics well. No other complaints. Objective Data Objective Data Vital Signs: Vital Signs Temp Pulse Resp BP 97.1 F L 91 16 112/65 01/26/22 11:01 01/26/22 11:01 01/06/22 01:07 01/26/22 11:01 Weight: 136.078 kg Body Mass Index (BMI) 41.8 Physical Exam Narrative Patient is alert oriented to person place and time. Patient is maintaining a nonweightbearing status to his left lower extremity with a wheelchair. Vascular: Left lower extremity vascular examination deferred there is brisk capillary fill time to the lesser digits on the left side. Neurovascular status intact right lower extremity. Neurologic: Light touch protective sensation absent to bilateral feet. Dermatologic: Dorsal foot wound appears to be improving well at this time there is 100% granular base with overlying incorporating TheraSkin graft. No signs of infection at this time. Plantar left midfoot wound demonstrates 100% granular base with no deep probing undermining or signs of infection. Pre and postdebridement measurements document nursing notes. Musculoskeletal: There is noted to be a plantar lateral convexity of the left foot secondary to Charcot deformity at the level of the midfoot. There is noted to be a varus deformity of the right ankle secondary to Charcot foot and multiple incision and drainages on that side. Muscular strength is intact to bilateral lower extremity compartments. Debridement Note Debridement Note Post-Debridement Measurements and Additional Note: Post-Debridement Measurements/Treatment - Nurse 1 - General Ulcer Assessment Start: 01/12/22 10:43 Freq: Status: Active Protocol: .LOWEXT Activity Type Activity Date Activity User E-sign Co-sign Detail Recorded Client Recorded Date Recorded By Document 01/12/22 10:43 UT [id number] 01/12/22 10:47 AK Document 01/12/22 10:51 AK [id number] 01/12/22 10:51 AK Document 01/19/22 10:21 AK [id number] 01/19/22 10:24 AK Document 01/26/22 11:01 UT [id number] 01/26/22 11:09 AK 01/12/22 01/12/22 01/19/22 10:43 10:51 10:21 - Today's Visit Information Type of service Follow-up Visit Follow-up Visit (Physician/MERCHANDISE PICKUP/RECEIVING ASSOCIATE (Physician/MERCHANDISE PICKUP/RECEIVING ASSOCIATE ) ) Arrival Mode Wheelchair Wheelchair Patient Identification Verified (Name & Yes Yes ) Patient Requires Transmission-Based No Precautions Safety Precautions NA Height and Weight Body Mass Index (BMI) 41.8 41.8 41.8 BMI Classification Obese Obese Obese Vital Signs Temperature (97.8 F-99.1 F) 97.9 F 96.9 F L Temperature Source Temporal Temporal Pulse Rate (60-100) 87 88 Pulse Location Monitor Monitor Blood Pressure (90/60-120/80) 117/58 L 96/62 Blood Pressure Mean (mm Hg) 77 73 Source Monitor History Since Last Visit- (Skip if this is Patient's initial visit) Have you changed medications since your No last visit? Any new allergies or adverse reactions No Had a fall/change in ADL's that may No increase risk of falls Signs or symptoms of abuse and/or No neglect since last visit Have you been in the hospital since your No last visit? Has dressing in place as prescribed Yes Has compression in place as prescribed Yes Has offloadiing in place as prescribed N/A Experienced any changes in pain level or No management Left Footwear Surgical Shoe with pressure relief insole Right Footwear Removable Cast Walker/Walking Boot Pain Scale: 0-10 Numeric Is Patient Pain Free? Yes Yes Yes 01/26/22 11:01 - Today's Visit Information Type of service Follow-up Visit (Physician/MERCHANDISE PICKUP/RECEIVING ASSOCIATE ) Arrival Mode Wheelchair Patient Identification Verified (Name & Yes ) Patient Requires Transmission-Based No Precautions Safety Precautions NA Height and Weight Body Mass Index (BMI) 41.8 BMI Classification Obese Vital Signs Temperature (97.8 F-99.1 F) 97.1 F L Temperature Source Temporal Pulse Rate (60-100) 91 Pulse Location Monitor Blood Pressure (90/60-120/80) 112/65 Blood Pressure Mean (mm Hg) 80 Source Monitor History Since Last Visit- (Skip if this is Patient's initial visit) Have you changed medications since your No last visit? Any new allergies or adverse reactions No Had a fall/change in ADL's that may No increase risk of falls Signs or symptoms of abuse and/or No neglect since last visit Have you been in the hospital since your No last visit? Has dressing in place as prescribed Yes Has compression in place as prescribed Yes Has offloadiing in place as prescribed N/A Experienced any changes in pain level or No management Left Footwear Removable Cast Walker/Walking Boot Right Footwear Pain Scale: 0-10 Numeric Is Patient Pain Free? Yes - Nurse 1 - General Ulcer Measurement Start: 01/12/22 10:43 Freq: Status: Active Protocol: Activity Type Activity Date Activity User E-sign Co-sign Detail Recorded Client Recorded Date Recorded By Document 01/12/22 10:43 UT [id number] 01/12/22 10:47 AK Document 01/19/22 10:21 AK [id number] 01/19/22 10:24 AK Document 01/26/22 11:01 UT [id number] 01/26/22 11:09 AK 01/12/22 01/19/22 01/26/22 10:43 10:21 11:01 Wound Center Nurse 1 #2- L PLANTAR FOOT POST OP -Combined with other wound No No No -Current Size (cm) - Length 0.8 4 0.6 -Current Size (cm) - Width 4 1 2.7 -Current Size (cm) - Depth 0.3 0.4 0.3 -Total Square Cm 3.2 4 1.62 -Date of Last Picture (Recall this 01/12/22 01/26/22 field) -Photo Taken Yes No Yes -Epithelialization None Present -Tunneling No No No -Undermining/Tunneling No No No -Circular Undermining No No No -Change in Wound Grade/Stage No No No -Exudate Amt Medium Medium Large -Exudate Type Serosanguineous Serosanguineous Serosanguineous -Wound Margin Distinct, Distinct, Distinct, Outline Outline Outline Attached Attached Attached -Granulation Amt Medium (34-66%) Medium (34-66%) Medium (34-66%) -Granulation Quality [place],Red [place],Red [place] -Slough/Fibrin Yes Yes -Necrosis Amt None Present (0 Medium (34-66%) Medium (34-66%) %) -Necrotic Tissue Type Adherent Slough Adherent Slough -Structure Exposed N/A -Texture ([place]-wound Skin Appearance) Assessed, No Abnormality, Assessed,Callus Induration Assessed -Moisture ([place]-wound Skin Appearance) Assessed No Abnormality, No Abnormality, Assessed Assessed -Color ([place]-wound Skin Appearance) Assessed No Abnormality, No Abnormality, Assessed Assessed -Temperature ([place]-wound Skin No Abnormality No Abnormality No Abnormality Appearance) (Pt Warm) (Pt Warm) (Pt Warm) -Tenderness on Palpation ([place]-wound No No No Skin Appearance) -Ulcer Cleansing Soap and Water Soap and Water Soap and Water -Foul Odor after Cleansing No No No -Anesthetic Used 4% Lidocaine 4% Lidocaine 5% Lidocaine Solution Solution,5% Gel Lidocaine Gel #1- L DORSAL FOOT POST OP -Combined with other wound No -Current Size (cm) - Length 8 8 -Current Size (cm) - Width 5.8 5.8 -Current Size (cm) - Depth 0.2 0.2 -Total Square Cm 46.4 46.4 -Photo Taken Yes No -Tunneling No No -Undermining/Tunneling No No -Circular Undermining No No -Change in Wound Grade/Stage No No -Exudate Amt Medium Medium -Exudate Type Serosanguineous Serosanguineous -Wound Margin Distinct, Distinct, Outline Outline Attached Attached -Granulation Amt Large (67-100%) Large (67-100%) -Granulation Quality Red Red -Slough/Fibrin Yes Yes -Necrosis Amt Small (1-33%) Small (1-33%) -Necrotic Tissue Type Adherent Slough Adherent Slough -Structure Exposed N/A N/A -Texture ([place]-wound Skin Appearance) No Abnormality, No Abnormality, Assessed Assessed -Moisture ([place]-wound Skin Appearance) No Abnormality, No Abnormality, Assessed Assessed -Color ([place]-wound Skin Appearance) No Abnormality, No Abnormality, Assessed Assessed -Temperature ([place]-wound Skin No Abnormality No Abnormality Appearance) (Pt Warm) (Pt Warm) -Tenderness on Palpation ([place]-wound No No Skin Appearance) -Ulcer Cleansing Soap and Water Soap and Water -Foul Odor after Cleansing No No -Anesthetic Used 4% Lidocaine 4% Lidocaine Solution Solution,5% Lidocaine Gel Lower Limb Edema Present NA Left Calf (cm) 35 Left Ankle (cm) 24.5 WC - Nurse 2 - General Ulcer CM Notes Start: 01/12/22 10:43 Freq: Status: Active Protocol: Activity Type Activity Date Activity User E-sign Co-sign Detail Recorded Client Recorded Date Recorded By Document 01/12/22 11:14 BRIAN [id number] 01/12/22 11:16 Document 01/19/22 10:42 BRIAN [id number] 01/19/22 10:56 01/12/22 01/19/22 11:14 10:42 Wound Center Nurse 2 #2- L PLANTAR FOOT POST OP -Time 11:14 10:45 -Correct Patient Yes Yes -Correct Side, Site, Position Yes Yes -Correct Procedure Yes Yes -Procedure Performed Yes Yes -Type of Procedure Debridement Debridement -Clinical Debridement Subcutaneous Subcutaneous -Tissue Removed Subcutaneous Subcutaneous -Post Debridement (cm) - Length 0.8 4.1 -Post Debridement (cm) - Width 4.1 1 -Post Debridement (cm) - Depth 0.3 0.4 -Total Square (Post) (cm) 3.28 4.1 -Area of Debridement (cm) - Length 0.8 4.1 -Area of Debridement (cm) - Width 4.1 1.0 -Total Square (Area) (cm) 3.28 4.10 -Tunneling No No -Undermining/Tunneling No No -Circular Undermining No No -Wound/Ulcer Outcome Not Healed Not Healed -Ulcer Cleansing Rinsed/ Rinsed/ Irrigated with Irrigated with Saline Saline -Foul Odor after Cleansing No No -Bioengineered Tissue No No -Bleeding Controlled with Pressure Pressure -Treatment Response Procedure Procedure Tolerated Well Tolerated Well -Offloading Yes Yes -Type of Offloading Camwalker Other -Other Type of Offloading [place] boot -Assistive Device(s) Wheelchair -Debridement - Subq, 1st 20sq cm No No #1- L DORSAL FOOT POST OP -Time 11:15 10:42 -Correct Patient Yes Yes -Correct Side, Site, Position Yes Yes -Correct Procedure Yes Yes -Procedure Performed Yes Yes -Type of Procedure Debridement Debridement -Clinical Debridement Subcutaneous Subcutaneous -Tissue Removed Subcutaneous Subcutaneous -Post Debridement (cm) - Length 8.1 5.0 -Post Debridement (cm) - Width 5.8 8 -Post Debridement (cm) - Depth 0.2 0.4 -Total Square (Post) (cm) 46.98 40.0 -Area of Debridement (cm) - Length 8.1 5 -Area of Debridement (cm) - Width 5.8 8 -Total Square (Area) (cm) 46.98 40 -Tunneling No No -Undermining/Tunneling No No -Circular Undermining No No -Wound/Ulcer Outcome Not Healed Not Healed -Ulcer Cleansing Rinsed/ Rinsed/ Irrigated with Irrigated with Saline Saline -Foul Odor after Cleansing No No -Bioengineered Tissue No Yes -Type of Bioengineered Tissue Ther[place]in -Expiration Date 04/10/26 -Product Lot Number [id number] -Percent Used 100 -Lot number of Saline Used [id number] -Bleeding Controlled with Pressure Pressure -Treatment Response Procedure Procedure Tolerated Well Tolerated Well -Offloading Yes Yes -Type of Offloading Surgical Shoe Surgical Shoe -Assistive Device(s) Wheelchair -Debridement - Subq, 1st 20sq cm Yes Yes -Debridement, SubQ, ea addt'l 20sq cm 2 2 or part thereof -Apply Skin Sub - 1st 25 sq cm - Feet 0 -[place]askin (per sq cm) 0 Pain Scale: 0-10 Numeric Is Patient Pain Free? Yes Yes WC - Nurse 3 - General Ulcer D/C NN Start: 01/12/22 10:43 Freq: Status: Active Protocol: Activity Type Activity Date Activity User E-sign Co-sign Detail Recorded Client Recorded Date Recorded By Document 01/12/22 11:16 JF [id number] 01/12/22 11:18 JF Document 01/19/22 11:18 AK [id number] 01/19/22 11:21 AK Edit Result 01/19/22 11:18 AK (1) [id number] 01/20/22 07:08 PL (1) Left - Multi-Layered Wrap Application => Multi-Layer Comp - => Left ($) 01/12/22 01/19/22 11:16 11:18 Wound Care Nurse 3 #2- L PLANTAR FOOT POST OP -Ulcer Cleansing Rinsed/ Irrigated with Saline -Foul Odor after Cleansing No No -Negative Pressure Wound Therapy N/A -Primary Dressing Applied Promogran Optilok 6.5x10 Ale Matter -Other Dressing ABD -Other Covering superabsorber -Optilok 6.5x10 1 1 -Promogran Ale Matter 1 #1- L DORSAL FOOT POST OP -Ulcer Cleansing Rinsed/ Rinsed/ Irrigated with Irrigated with Saline Saline -Foul Odor after Cleansing No No -Negative Pressure Wound Therapy N/A -Primary Dressing Applied NonAdherent Promogran Contact Layer Ale Matter -Other Dressing ABD -Other Covering superabsorber -Optilok 6.5x10 1 1 -Promogran Ale Matter 1 Left -Lotion applied to leg before Yes compression wrap -Multi-Layered Wrap Application Multi-Layer Multi-Layer Comp - Left ($) Comp - Left ($) Pain Scale: 0-10 Numeric Is Patient Pain Free? Yes Yes - Visit Discharge Discharge Condition Stable Stable Ambulatory Status Ambulatory, Ambulatory Wheelchair Transportation Private Auto Private Auto Accompanied by father father Medication Reconcilliation completed & Yes Yes provided to patient/care provider Clinical Summary of Care Provided Yes Yes Assessment/Plan Assessment/Plan (1) 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 muscle: CODE(S): L97.523 - 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 muscle PLAN: Patient examined evaluated, all fine discussed with patient detail. Patient is currently off IV antibiotics, no residual signs of infection at this time. Patient notes minimal drainage. Wounds healing significantly every week. Left dorsal foot wound and plantar foot wound were excisionally debrided of all nonviable tissue down to including level of subcutaneous tissue using a 5 mm dermal curette without incident. Hemostasis obtained with light compression. No anesthesia required due to neuropathy. Patient tolerated procedure well. Pre and postdebridement measurements document nursing notes. A TheraSkin graft was left intact. This was applied last week. Appears to be incorporating well. Overlying Adaptic and Steri-Strips were applied along with a bolster dressing and 3M compression lab Ale was applied to the plantar foot wound. Patient will continue nonweightbearing and it was discussed that once a plantar wound heals we will likely initiate protected weightbearing in Cam walking boot versus [place] walking boot. Patient will follow up in 1 week continue taking baby aspirin for DVT prophylaxis. No signs of DVT at this time.
[2022-02-02 10:29] VITALS: TEMP 36.2; BMI 41.8
--- NOTE | 2022-02-02 11:05 | PN.PCM_ITS ---
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 History of Wound: This is a 41-year-old diabetic white male who presented with fevers, sweats, chills, malaise, and left foot swelling and redness, and found to have a diabetic left foot infection on November 14, 2021. 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 Initial blood cultures were positive. The patient was treated by Dr. Jordi Perkins, podiatric specialist, who performed incision and surgical debridement on the day of admission. Cultures obtained were positive for Enterococcus faecalis and Prevotella bivia. The patient required hospitalization at [facility], where he remained until he was discharged on November 21, 2021. A repeat incision and surgical debridement was performed on November 17, 2021. The Infectious Disease service was consulted, and the patient was started on intravenous antibiotics, and subsequently discharged on intravenous Invanz and vancomycin. The intravenous antibiotics are anticipated to continue for at least 6 weeks. He was discharged with a wound VAC, which continues until the current time, and surgical care related to his left foot continues under the oversight of Dr. Jordi Perkins, podiatric specialist. Patient notes significant improvement of his wound at this time and denies any constitutional symptoms. Patient denies any pain. Patient tolerating IV antibiotics well. No other complaints. Objective Data Objective Data Vital Signs: Vital Signs Temp Pulse Resp BP 97.2 F L 91 16 112/65 02/02/22 10:29 01/26/22 11:01 01/06/22 01:07 01/26/22 11:01 Weight: 136.078 kg Body Mass Index (BMI) 41.8 Physical Exam Narrative Patient is alert oriented to person place and time. Patient is maintaining a nonweightbearing status to his left lower extremity with a wheelchair. Vascular: Left lower extremity vascular examination deferred there is brisk capillary fill time to the lesser digits on the left side. Neurovascular status intact right lower extremity. Neurologic: Light touch protective sensation absent to bilateral feet. Dermatologic: Dorsal foot wound appears to be improving well at this time there is 100% granular base with overlying incorporating TheraSkin graft. Nonviable TheraSkin graft and nonviable tissue excisionally debrided from wound today pre and postdebridement measurements document nursing notes this was down the level of the tibialis anterior tendon. No signs of infection at this time. Plantar left midfoot wound demonstrates 100% granular base with no deep probing undermining or signs of infection. Pre and postdebridement measurements document nursing notes. Musculoskeletal: There is noted to be a plantar lateral convexity of the left foot secondary to Charcot deformity at the level of the midfoot. There is noted to be a varus deformity of the right ankle secondary to Charcot foot and multiple incision and drainages on that side. Muscular strength is intact to bilateral lower extremity compartments. Debridement Note Debridement Note Post-Debridement Measurements and Additional Note: Post-Debridement Measurements/Treatment - Nurse 1 - General Ulcer Assessment Start: 01/12/22 10:43 Freq: Status: Active Protocol: .LOWEXT Activity Type Activity Date Activity User E-sign Co-sign Detail Recorded Client Recorded Date Recorded By Document 01/12/22 10:43 IN [id number] 01/12/22 10:47 IN Document 01/12/22 10:51 IN [id number] 01/12/22 10:51 IN Document 01/19/22 10:21 AK [id number] 01/19/22 10:24 IN Document 01/26/22 11:01 IN [id number] 01/26/22 11:09 IN Document 02/02/22 10:29 AK [id number] 02/02/22 10:32 AK 01/12/22 01/12/22 01/19/22 10:43 10:51 10:21 - Today's Visit Information Type of service Follow-up Visit Follow-up Visit (Physician/MANAGER INTERNET (Physician/MANAGER INTERNET ) ) Arrival Mode Wheelchair Wheelchair Patient Identification Verified (Name & Yes Yes ) Patient Requires Transmission-Based No Precautions Safety Precautions NA Finger Stick Blood Sugar(mg/dl) (if indicated): Blood Sugar Height and Weight Body Mass Index (BMI) 41.8 41.8 41.8 BMI Classification Obese Obese Obese Vital Signs Temperature (97.8 F-99.1 F) 97.9 F 96.9 F L Temperature Source Temporal Temporal Pulse Rate (60-100) 87 88 Pulse Location Monitor Monitor Blood Pressure (90/60-120/80) 117/58 L 96/62 Blood Pressure Mean (mm Hg) 77 73 Source Monitor History Since Last Visit- (Skip if this is Patient's initial visit) Have you changed medications since your No last visit? Any new allergies or adverse reactions No Had a fall/change in ADL's that may No increase risk of falls Signs or symptoms of abuse and/or No neglect since last visit Have you been in the hospital since your No last visit? Has dressing in place as prescribed Yes Has compression in place as prescribed Yes Has offloadiing in place as prescribed N/A Experienced any changes in pain level or No management Left Footwear Surgical Shoe with pressure relief insole Right Footwear Removable Cast Walker/Walking Boot Pain Scale: 0-10 Numeric Is Patient Pain Free? Yes Yes Yes 01/26/22 02/02/22 11:01 10:29 WC - Today's Visit Information Type of service Follow-up Visit Follow-up Visit (Physician/MANAGER INTERNET (Physician/MANAGER INTERNET ) ) Arrival Mode Wheelchair Wheelchair Patient Identification Verified (Name & Yes Yes ) Patient Requires Transmission-Based No No Precautions Safety Precautions NA NA Finger Stick Blood Sugar(mg/dl) (if 101 indicated): Blood Sugar Stated by Patient Height and Weight Body Mass Index (BMI) 41.8 41.8 BMI Classification Obese Obese Vital Signs Temperature (97.8 F-99.1 F) 97.1 F L 97.2 F L Temperature Source Temporal Temporal Pulse Rate (60-100) 91 Pulse Location Monitor Blood Pressure (90/60-120/80) 112/65 Blood Pressure Mean (mm Hg) 80 Source Monitor History Since Last Visit- (Skip if this is Patient's initial visit) Have you changed medications since your No No last visit? Any new allergies or adverse reactions No No Had a fall/change in ADL's that may No No increase risk of falls Signs or symptoms of abuse and/or No No neglect since last visit Have you been in the hospital since your No No last visit? Has dressing in place as prescribed Yes Yes Has compression in place as prescribed Yes Yes Has offloadiing in place as prescribed N/A Yes Experienced any changes in pain level or No No management Left Footwear Removable Cast Walker/Walking Boot Right Footwear Removable Cast Walker/Walking Boot Pain Scale: 0-10 Numeric Is Patient Pain Free? Yes Yes WC - Nurse 1 - General Ulcer Measurement Start: 01/12/22 10:43 Freq: Status: Active Protocol: Activity Type Activity Date Activity User E-sign Co-sign Detail Recorded Client Recorded Date Recorded By Document 01/12/22 10:43 ASHISH [id number] 01/12/22 10:47 AK Document 01/19/22 10:21 AK [id number] 01/19/22 10:24 AK Document 01/26/22 11:01 IN [id number] 01/26/22 11:09 AK Document 02/02/22 10:29 AK [id number] 02/02/22 10:32 AK 01/12/22 01/19/22 01/26/22 10:43 10:21 11:01 Wound Center Nurse 1 #2- L PLANTAR FOOT POST OP -Combined with other wound No No No -Current Size (cm) - Length 0.8 4 0.6 -Current Size (cm) - Width 4 1 2.7 -Current Size (cm) - Depth 0.3 0.4 0.3 -Total Square Cm 3.2 4 1.62 -Date of Last Picture (Recall this 01/12/22 01/26/22 field) -Photo Taken Yes No Yes -Epithelialization None Present -Tunneling No No No -Undermining/Tunneling No No No -Circular Undermining No No No -Change in Wound Grade/Stage No No No -Exudate Amt Medium Medium Large -Exudate Type Serosanguineous Serosanguineous Serosanguineous -Wound Margin Distinct, Distinct, Distinct, Outline Outline Outline Attached Attached Attached -Granulation Amt Medium (34-66%) Medium (34-66%) Medium (34-66%) -Granulation Quality Spry,Red Spry,Red Spry -Slough/Fibrin Yes Yes -Necrosis Amt None Present (0 Medium (34-66%) Medium (34-66%) %) -Necrotic Tissue Type Adherent Slough Adherent Slough -Structure Exposed N/A -Texture ([place]-wound Skin Appearance) Assessed, No Abnormality, Assessed,Callus Induration Assessed -Moisture ([place]-wound Skin Appearance) Assessed No Abnormality, No Abnormality, Assessed Assessed -Color ([place]-wound Skin Appearance) Assessed No Abnormality, No Abnormality, Assessed Assessed -Temperature ([place]-wound Skin No Abnormality No Abnormality No Abnormality Appearance) (Pt Warm) (Pt Warm) (Pt Warm) -Tenderness on Palpation ([place]-wound No No No Skin Appearance) -Ulcer Cleansing Soap and Water Soap and Water Soap and Water -Foul Odor after Cleansing No No No -Anesthetic Used 4% Lidocaine 4% Lidocaine 5% Lidocaine Solution Solution,5% Gel Lidocaine Gel #1- L DORSAL FOOT POST OP -Combined with other wound No -Current Size (cm) - Length 8 8 -Current Size (cm) - Width 5.8 5.8 -Current Size (cm) - Depth 0.2 0.2 -Total Square Cm 46.4 46.4 -Photo Taken Yes No -Tunneling No No -Undermining/Tunneling No No -Circular Undermining No No -Change in Wound Grade/Stage No No -Exudate Amt Medium Medium -Exudate Type Serosanguineous Serosanguineous -Wound Margin Distinct, Distinct, Outline Outline Attached Attached -Granulation Amt Large (67-100%) Large (67-100%) -Granulation Quality Red Red -Slough/Fibrin Yes Yes -Necrosis Amt Small (1-33%) Small (1-33%) -Necrotic Tissue Type Adherent Slough Adherent Slough -Structure Exposed N/A N/A -Texture ([place]-wound Skin Appearance) No Abnormality, No Abnormality, Assessed Assessed -Moisture ([place]-wound Skin Appearance) No Abnormality, No Abnormality, Assessed Assessed -Color ([place]-wound Skin Appearance) No Abnormality, No Abnormality, Assessed Assessed -Temperature ([place]-wound Skin No Abnormality No Abnormality Appearance) (Pt Warm) (Pt Warm) -Tenderness on Palpation ([place]-wound No No Skin Appearance) -Ulcer Cleansing Soap and Water Soap and Water -Foul Odor after Cleansing No No -Anesthetic Used 4% Lidocaine 4% Lidocaine Solution Solution,5% Lidocaine Gel Lower Limb Edema Present NA Left Calf (cm) 35 Left Ankle (cm) 24.5 02/02/22 10:29 Wound Center Nurse 1 #2- L PLANTAR FOOT POST OP -Combined with other wound No -Current Size (cm) - Length 0.5 -Current Size (cm) - Width 0.3 -Current Size (cm) - Depth 0.2 -Total Square Cm 0.15 -Date of Last Picture (Recall this field) -Photo Taken No -Epithelialization -Tunneling No -Undermining/Tunneling No -Circular Undermining No -Change in Wound Grade/Stage No -Exudate Amt Small -Exudate Type Serosanguineous -Wound Margin Distinct, Outline Attached -Granulation Amt Medium (34-66%) -Granulation Quality N/A -Slough/Fibrin Yes -Necrosis Amt Medium (34-66%) -Necrotic Tissue Type Adherent Slough -Structure Exposed N/A -Texture ([place]-wound Skin Appearance) No Abnormality, Assessed -Moisture ([place]-wound Skin Appearance) No Abnormality, Assessed -Color ([place]-wound Skin Appearance) No Abnormality, Assessed -Temperature ([place]-wound Skin No Abnormality Appearance) (Pt Warm) -Tenderness on Palpation ([place]-wound No Skin Appearance) -Ulcer Cleansing Rinsed/ Irrigated with Saline -Foul Odor after Cleansing No -Anesthetic Used 4% Lidocaine Solution #1- L DORSAL FOOT POST OP -Combined with other wound -Current Size (cm) - Length -Current Size (cm) - Width -Current Size (cm) - Depth -Total Square Cm -Photo Taken -Tunneling -Undermining/Tunneling -Circular Undermining -Change in Wound Grade/Stage -Exudate Amt -Exudate Type -Wound Margin -Granulation Amt -Granulation Quality -Slough/Fibrin -Necrosis Amt -Necrotic Tissue Type -Structure Exposed -Texture ([place]-wound Skin Appearance) Assessed, Scarring -Moisture ([place]-wound Skin Appearance) No Abnormality, Assessed -Color ([place]-wound Skin Appearance) No Abnormality, Assessed -Temperature ([place]-wound Skin No Abnormality Appearance) (Pt Warm) -Tenderness on Palpation ([place]-wound No Skin Appearance) -Ulcer Cleansing -Foul Odor after Cleansing No -Anesthetic Used Lower Limb Edema Present Left Calf (cm) 34 Left Ankle (cm) 24.5 WC - Nurse 2 - General Ulcer CM Notes Start: 01/12/22 10:43 Freq: Status: Active Protocol: Activity Type Activity Date Activity User E-sign Co-sign Detail Recorded Client Recorded Date Recorded By Document 01/12/22 11:14 BRIAN [id number] 01/12/22 11:16 BRIAN Document 01/19/22 10:42 BRIAN [id number] 01/19/22 10:56 BRIAN Document 01/26/22 11:38 [id number] 01/26/22 11:39 Document 02/02/22 10:59 MW [id number] 02/02/22 11:04 MW 01/12/22 01/19/22 01/26/22 11:14 10:42 11:38 Wound Center Nurse 2 #2- L PLANTAR FOOT POST OP -Time 11:14 10:45 11:38 -Correct Patient Yes Yes Yes -Correct Side, Site, Position Yes Yes Yes -Correct Procedure Yes Yes Yes -Procedure Performed Yes Yes Yes -Type of Procedure Debridement Debridement Debridement -Clinical Debridement Subcutaneous Subcutaneous Subcutaneous -Tissue Removed Subcutaneous Subcutaneous Subcutaneous -Post Debridement (cm) - Length 0.8 4.1 1.6 -Post Debridement (cm) - Width 4.1 1 2.8 -Post Debridement (cm) - Depth 0.3 0.4 0.3 -Total Square (Post) (cm) 3.28 4.1 4.48 -Area of Debridement (cm) - Length 0.8 4.1 1.6 -Area of Debridement (cm) - Width 4.1 1.0 2.8 -Total Square (Area) (cm) 3.28 4.10 4.48 -Tunneling No No No -Undermining/Tunneling No No No -Circular Undermining No No No -Wound/Ulcer Outcome Not Healed Not Healed Not Healed -Ulcer Cleansing Rinsed/ Rinsed/ Rinsed/ Irrigated with Irrigated with Irrigated with Saline Saline Saline -Foul Odor after Cleansing No No No -Bioengineered Tissue No No No -Bleeding Controlled with Pressure Pressure Pressure -Treatment Response Procedure Procedure Procedure Tolerated Well Tolerated Well Tolerated Well -Offloading Yes Yes Yes -Type of Offloading Camwalker Other Other -Other Type of Offloading tejon boot tejon boot -Assistive Device(s) Wheelchair -Debridement - Subq, 1st 20sq cm No No Yes #1- L DORSAL FOOT POST OP -Time 11:15 10:42 -Correct Patient Yes Yes No -Correct Side, Site, Position Yes Yes No -Correct Procedure Yes Yes No -Procedure Performed Yes Yes No -Type of Procedure Debridement Debridement -Clinical Debridement Subcutaneous Subcutaneous -Tissue Removed Subcutaneous Subcutaneous -Post Debridement (cm) - Length 8.1 5.0 -Post Debridement (cm) - Width 5.8 8 -Post Debridement (cm) - Depth 0.2 0.4 -Total Square (Post) (cm) 46.98 40.0 -Area of Debridement (cm) - Length 8.1 5 -Area of Debridement (cm) - Width 5.8 8 -Total Square (Area) (cm) 46.98 40 -Tunneling No No -Undermining/Tunneling No No -Circular Undermining No No -Wound/Ulcer Outcome Not Healed Not Healed Not Healed -Ulcer Cleansing Rinsed/ Rinsed/ Irrigated with Irrigated with Saline Saline -Foul Odor after Cleansing No No -Bioengineered Tissue No Yes -Type of Bioengineered Tissue Theraskin -Expiration Date 04/10/26 -Product Lot Number [id number] -Percent Used 100 -Lot number of Saline Used [id number] -Bleeding Controlled with Pressure Pressure -Treatment Response Procedure Procedure Tolerated Well Tolerated Well -Offloading Yes Yes -Type of Offloading Surgical Shoe Surgical Shoe -Assistive Device(s) Wheelchair -Debridement - Subq, 1st 20sq cm Yes Yes -Debridement, SubQ, ea addt'l 20sq cm 2 2 or part thereof -Debridement - Muscle / Fascia, 1st 20sq cm -Debridement, Muscle/Fascia, ea addt'l 20sq cm or part thereof -Apply Skin Sub - 1st 25 sq cm - Feet 0 -Theraskin (per sq cm) 0 Pain Scale: 0-10 Numeric Is Patient Pain Free? Yes Yes Yes 02/02/22 10:59 Wound Center Nurse 2 #2- L PLANTAR FOOT POST OP -Time 11:00 -Correct Patient Yes -Correct Side, Site, Position Yes -Correct Procedure Yes -Procedure Performed Yes -Type of Procedure Debridement -Clinical Debridement Subcutaneous -Tissue Removed Subcutaneous -Post Debridement (cm) - Length 0.5 -Post Debridement (cm) - Width 3.4 -Post Debridement (cm) - Depth 0.3 -Total Square (Post) (cm) 1.70 -Area of Debridement (cm) - Length 0.5 -Area of Debridement (cm) - Width 3.4 -Total Square (Area) (cm) 1.70 -Tunneling No -Undermining/Tunneling No -Circular Undermining No -Wound/Ulcer Outcome Not Healed -Ulcer Cleansing Rinsed/ Irrigated with Saline -Foul Odor after Cleansing No -Bioengineered Tissue No -Bleeding Controlled with Pressure -Treatment Response Procedure Tolerated Well -Offloading No -Type of Offloading -Other Type of Offloading -Assistive Device(s) -Debridement - Subq, 1st 20sq cm No #1- L DORSAL FOOT POST OP -Time 11:00 -Correct Patient Yes -Correct Side, Site, Position Yes -Correct Procedure Yes -Procedure Performed Yes -Type of Procedure Debridement -Clinical Debridement Muscle / Fascia -Tissue Removed Muscle,Fascia -Post Debridement (cm) - Length 6.5 -Post Debridement (cm) - Width 4.5 -Post Debridement (cm) - Depth 0.1 -Total Square (Post) (cm) 29.25 -Area of Debridement (cm) - Length 6.5 -Area of Debridement (cm) - Width 4.5 -Total Square (Area) (cm) 29.25 -Tunneling No -Undermining/Tunneling No -Circular Undermining No -Wound/Ulcer Outcome Not Healed -Ulcer Cleansing -Foul Odor after Cleansing No -Bioengineered Tissue No -Type of Bioengineered Tissue -Expiration Date -Product Lot Number -Percent Used -Lot number of Saline Used -Bleeding Controlled with Pressure -Treatment Response Procedure Tolerated Well -Offloading No -Type of Offloading -Assistive Device(s) -Debridement - Subq, 1st 20sq cm -Debridement, SubQ, ea addt'l 20sq cm or part thereof -Debridement - Muscle / Fascia, 1st Yes 20sq cm -Debridement, Muscle/Fascia, ea addt'l 1 20sq cm or part thereof -Apply Skin Sub - 1st 25 sq cm - Feet -Theraskin (per sq cm) Pain Scale: 0-10 Numeric Is Patient Pain Free? Yes WC - Nurse 3 - General Ulcer D/C NN Start: 01/12/22 10:43 Freq: Status: Active Protocol: Activity Type Activity Date Activity User E-sign Co-sign Detail Recorded Client Recorded Date Recorded By Document 01/12/22 11:16 JF [id number] 01/12/22 11:18 JF Document 01/19/22 11:18 AK [id number] 01/19/22 11:21 AK Edit Result 01/19/22 11:18 AK (1) [id number] 01/20/22 07:08 PL Document 01/26/22 11:30 AK [id number] 01/26/22 11:32 AK (1) Left - Multi-Layered Wrap Application => Multi-Layer Comp - => Left ($) 01/12/22 01/19/22 01/26/22 11:16 11:18 11:30 Wound Care Nurse 3 #2- L PLANTAR FOOT POST OP -Ulcer Cleansing Rinsed/ Rinsed/ Irrigated with Irrigated with Saline Saline -Foul Odor after Cleansing No No No -Negative Pressure Wound Therapy N/A N/A -Primary Dressing Applied Promogran Optilok 6.5x10 Optilok 6.5x10, Ale Matter Promogran Ale Matter -Other Dressing ABD -Other Covering superabsorber -Aquacel AG 4x4 1 -Optilok 6.5x10 1 1 2 -Promogran Ale Matter 1 1 #1- L DORSAL FOOT POST OP -Ulcer Cleansing Rinsed/ Rinsed/ Irrigated with Irrigated with Saline Saline -Foul Odor after Cleansing No No -Negative Pressure Wound Therapy N/A -Primary Dressing Applied NonAdherent Promogran Contact Layer Ale Matter -Other Dressing ABD -Primary Dressing Covered/Secured with Dry Gauze -Other Covering superabsorber -Optilok 6.5x10 1 1 -Promogran Ale Matter 1 Left -Lotion applied to leg before Yes compression wrap -Multi-Layered Wrap Application Multi-Layer Multi-Layer Multi-Layer Comp - Left ($) Comp - Left ($) Comp - Left ($) Pain Scale: 0-10 Numeric Is Patient Pain Free? Yes Yes Yes WC - Visit Discharge Discharge Condition Stable Stable Stable Ambulatory Status Ambulatory, Ambulatory Wheelchair Transportation Private Auto Private Auto Private Auto Accompanied by father father dad Medication Reconcilliation completed & Yes Yes Yes provided to patient/care provider Clinical Summary of Care Provided Yes Yes Yes Assessment/Plan Assessment/Plan (1) 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 muscle: CODE(S): L97.523 - 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 muscle PLAN: Patient examined evaluated, all fine discussed with patient detail. Patient is currently off IV antibiotics, no residual signs of infection at this time. Patient notes minimal drainage. Wounds healing significantly every week. Patient is dorsal left foot wound was excisionally debrided down to including level of tendon to the left foot. This was debrided of all nonviable tissue. Pre and postdebridement measurements document nursing notes. No anesthesia required due to neuropathy. Hemostasis obtained with light compression. Plan tar left midfoot ulceration down debrided excisionally down to including level subcutaneous tissue of all nonviable tissue with a 5 mm dermal curette without incident. No anesthesia required due to neuropathy. Hemostasis obtained with light compression. Patient tolerated procedures well in apparent satisfactory condition. Patient will continue Ale to plantar midfoot ulceration as well as Adaptic to dorsal midfoot ulceration with DSD and 3M compression wrap this will be changed on Tuesday as an in between dressing change. He will continue nonweightbearing status to left lower extremity with 81 mg aspirin for DVT prophylaxis. Patient will follow up in 1 week.
== END 2022-02-04 23:59 | disposition home or self-care (01) ==
LOC: WC 10:45
PROVIDERS: PCP Student in an Organized Health Care Education/Training Program; Visit Provider Podiatrist
DX: E11.621 Type 2 diabetes mellitus with foot ulcer (principal); A48.0 Gas gangrene; L97.523 Non-pressure chronic ulcer of other part of left foot with necrosis of muscle; M86.8X7 Other osteomyelitis, ankle and foot; E11.610 Type 2 diabetes mellitus with diabetic neuropathic arthropathy; E11.59 Type 2 diabetes mellitus with other circulatory complications
CPT/HCPCS: 11042; 11043; 11045; 11046; 29581

== ENCOUNTER 2022-03-02 10:00 | Outpatient (RCR) | payer BC, SELFPAY ==
[2022-02-05 00:38] VITALS: BP 112/65; PULSE 91; RESP 16; TEMP 36.2; BMI 41.8
[2022-02-09 10:18] VITALS: BP 123/65; PULSE 87; RESP 16; TEMP 36.3; BMI 41.8
--- NOTE | 2022-02-09 11:07 | PN.PCM_ITS ---
History of Present Illness Date of Service: 02/09/22 Chief Complaint: Diabetic left foot infection with gas gangrene and osteom yelitis. History of Wound: This is a 41-year-old diabetic white male who presented with fevers, sweats, chills, malaise, and left foot swelling and redness, and found to have a diabetic left foot infection on November 14, 2021. Patient is infection is resolved after 2 incisions and drainage with 6 weeks of IV antibiotics per PICC line. Patient's wounds have been improving well. He is maintain nonweightbearing status denies any chest pain calf pain shortness of breath. Patient has not no constitutional symptoms at this time and no new complaints. Objective Data Objective Data Vital Signs: Vital Signs Temp Pulse Resp BP O2 Del Method 97.3 F L 87 16 123/65 H Room Air 02/09/22 10:18 02/09/22 10:18 02/09/22 10:18 02/09/22 10:18 02/09/22 10:18 Oxygen Delivery Method Room Air Weight: 136.078 kg Body Mass Index (BMI) 41.8 Physical Exam Narrative Patient is alert oriented to person place and time. Patient is maintaining a nonweightbearing status to his left lower extremity with a wheelchair. Vascular: Left lower extremity vascular examination deferred there is brisk capillary fill time to the lesser digits on the left side. Neurovascular status intact right lower extremity. Neurologic: Light touch protective sensation absent to bilateral feet. Dermatologic: Dorsal foot wound appears to be improving well at this time there is 100% granular base with overlying incorporating TheraSkin graft. Nonviable TheraSkin graft and nonviable tissue excisionally debrided from wound today pre and postdebridement measurements document nursing notes this was down the level of the tibialis anterior tendon. No signs of infection at this time. Plantar left midfoot wound demonstrates 100% granular base with no deep probing undermining or signs of infection. Pre and postdebridement measurements document nursing notes. Musculoskeletal: There is noted to be a plantar lateral convexity of the left foot secondary to Charcot deformity at the level of the midfoot. There is noted to be a varus deformity of the right ankle secondary to Charcot foot and multiple incision and drainages on that side. Muscular strength is intact to bilateral lower extremity compartments. Debridement Note Debridement Note Post-Debridement Measurements and Additional Note: Post-Debridement Measurements/Treatment - Nurse 1 - General Ulcer Assessment Start: 02/09/22 10:18 Freq: Status: Active Protocol: GWEN Activity Type Activity Date Activity User E-sign Co-sign Detail Recorded Client Recorded Date Recorded By Document 02/09/22 10:18 [facility] [id number] 02/09/22 10:21 [facility] 02/09/22 10:18 - Today's Visit Information Type of service Follow-up Visit (Physician/[employer] ) Arrival Mode Wheelchair Transfer Assistance Other Transfer Assist (Other) STAND BY Accompanied by DAD Patient Identification Verified (Name & Yes ) Patient Requires Transmission-Based No Precautions Height and Weight Body Mass Index (BMI) 41.8 BMI Classification Obese Vital Signs Temperature (97.8 F-99.1 F) 97.3 F L Temperature Source Temporal Pulse Rate (60-100) 87 Pulse Location Monitor Respiratory Rate (12-18) 16 Respiratory rate source Observation Oxygen Delivery Method Room Air Blood Pressure (90/60-120/80) 123/65 H Blood Pressure Mean (mm Hg) 84 Source Monitor Position Sitting Blood Pressure Location Right Arm History Since Last Visit- (Skip if this is Patient's initial visit) Have you changed medications since your No last visit? Any new allergies or adverse reactions No Had a fall/change in ADL's that may No increase risk of falls Signs or symptoms of abuse and/or No neglect since last visit Have you been in the hospital since your No last visit? Has dressing in place as prescribed Yes Has compression in place as prescribed Yes Has offloadiing in place as prescribed N/A Experienced any changes in pain level or No management Pain Scale: 0-10 Numeric Is Patient Pain Free? Yes - Nurse 1 - General Ulcer Measurement Start: 02/09/22 10:18 Freq: Status: Active Protocol: Activity Type Activity Date Activity User E-sign Co-sign Detail Recorded Client Recorded Date Recorded By Document 02/09/22 10:18 [facility] [id number] 02/09/22 10:21 [facility] 02/09/22 10:18 Wound Center Nurse 1 #2- L PLANTAR FOOT POST OP -Combined with other wound No -Current Size (cm) - Length 0.6 -Current Size (cm) - Width 1.2 -Current Size (cm) - Depth 0.1 -Total Square Cm 0.72 -Photo Taken No -Epithelialization Small 1-33% -Tunneling No -Undermining/Tunneling No -Circular Undermining No -Exudate Amt Small -Exudate Type Sanguineous -Wound Margin Distinct, Outline Attached -Granulation Amt Medium (34-66%) -Granulation Quality Pale -Slough/Fibrin Yes -Necrosis Amt Medium (34-66%) -Necrotic Tissue Type Adherent Slough -Texture ([place]-wound Skin Appearance) Assessed, Scarring -Moisture ([place]-wound Skin Appearance) Assessed,Dry/ Scaly -Color ([place]-wound Skin Appearance) Assessed -Temperature ([place]-wound Skin No Abnormality Appearance) (Pt Warm) -Tenderness on Palpation ([place]-wound No Skin Appearance) -Ulcer Cleansing Soap and Water -Foul Odor after Cleansing No -Anesthetic Used 4% Lidocaine Solution #1- L DORSAL FOOT POST OP -Combined with other wound No -Current Size (cm) - Length 6.7 -Current Size (cm) - Width 4.3 -Current Size (cm) - Depth 0.1 -Total Square Cm 28.81 -Epithelialization Small 1-33% -Tunneling No -Undermining/Tunneling No -Circular Undermining No -Exudate Type Yellow/Green -Wound Margin Distinct, Outline Attached -Granulation Amt Medium (34-66%) -Granulation Quality Red -Slough/Fibrin Yes -Necrosis Amt Small (1-33%) -Necrotic Tissue Type Adherent Slough -Texture ([place]-wound Skin Appearance) Assessed, Fluctuance -Moisture ([place]-wound Skin Appearance) Assessed -Color ([place]-wound Skin Appearance) Assessed -Temperature ([place]-wound Skin No Abnormality Appearance) (Pt Warm) -Tenderness on Palpation ([place]-wound No Skin Appearance) -Ulcer Cleansing Soap and Water -Foul Odor after Cleansing No -Anesthetic Used 4% Lidocaine Solution Lower Limb Edema Present Yes Left Calf (cm) 35 Left Ankle (cm) 25 Assessment/Plan Assessment/Plan (1) Charcot arthropathy of midfoot: CODE(S): M14.679 - Charcot's joint, unspecified ankle and foot (2) 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 muscle: CODE(S): L97.523 - 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 muscle PLAN: Patient examined evaluated, all fine discussed with patient detail. Patient is currently off IV antibiotics, no residual signs of infection at this time. Patient notes minimal drainage. Wounds healing significantly every week. Patient is dorsal left foot wound was excisionally debrided down to including level of tendon to the left foot. This was debrided of all nonviable tissue. Pre and postdebridement measurements document nursing notes. No anesthesia required due to neuropathy. Hemostasis obtained with light compression. Plantar left midfoot ulceration down debrided excisionally down to including level subcutaneous tissue of all nonviable tissue with a 5 mm dermal curette without incident. No anesthesia required due to neuropathy. Hemostasis obtained with light compression. Patient tolerated procedures well in apparent satisfactory condition. Patient will continue Ale to plantar midfoot ulceration as well as Aquacel to dorsal midfoot ulceration with DSD and 3M compression wrap this will be changed on Tuesday as an in between dressing change. He will continue nonweightbearing status to left lower extremity with 81 mg aspirin for DVT prophylaxis. Patient will follow up in 1 week. (3) Type 2 diabetes mellitus with diabetic polyneuropathy: CODE(S): E11.42 - Type 2 diabetes mellitus with diabetic polyneuropathy QUALIFIERS: Diabetes mellitus detention insulin use: without ferry terminal agent use Qualified Code(s): E11.42 - Type 2 diabetes mellitus with diabetic polyneuropathy
[2022-02-16 11:09] VITALS: BP 114/68; PULSE 86; TEMP 35.7; BMI 41.8
--- NOTE | 2022-02-16 11:11 | PCM.WC.PN ---
History of Present Illness Date of Service: 02/16/22 Chief Complaint: Diabetic left foot infection with gas gangrene and osteomyelitis. History of Wound: This is a 41-year-old diabetic white male who presented with fevers, sweats, chills, malaise, and left foot swelling and redness, and found to have a diabetic left foot infection on November 14, 2021. Patient is infection is resolved after 2 incisions and drainage with 6 weeks of IV antibiotics per PICC line. Patient's wounds have been improving well. He is maintain nonweightbearing status denies any chest pain calf pain shortness of breath. Patient has not no constitutional symptoms at this time and no new complaints. Objective Data Objective Data Vital Signs: Vital Signs Temp Pulse Resp BP O2 Del Method 97.3 F L 87 16 123/65 H Room Air 02/09/22 10:18 02/09/22 10:18 02/09/22 10:18 02/09/22 10:18 02/09/22 10:18 Oxygen Delivery Method Room Air Weight: 136.078 kg Body Mass Index (BMI) 41.8 Physical Exam Narrative Patient is alert oriented to person place and time. Patient is maintaining a nonweightbearing status to his left lower extremity with a wheelchair. Vascular: Left lower extremity vascular examination deferred there is brisk capillary fill time to the lesser digits on the left side. Neurovascular status intact right lower extremity. Neurologic: Light touch protective sensation absent to bilateral feet. Dermatologic: Dorsal foot wound appears to be improving well at this time there is 100% granular base with overlying incorporating TheraSkin graft. pre and postdebridement measurements document nursing notes this was down the level of the tibialis anterior tendon. No signs of infection at this time. Plantar left midfoot wound healed at this time. Musculoskeletal: There is noted to be a plantar lateral convexity of the left foot secondary to Charcot deformity at the level of the midfoot. There is noted to be a varus deformity of the right ankle secondary to Charcot foot and multiple incision and drainages on that side. Muscular strength is intact to bilateral lower extremity compartments. Debridement Note Debridement Note Post-Debridement Measurements and Additional Note: Post-Debridement Measurements/Treatment WC - Nurse 1 - General Ulcer Assessment Start: 02/09/22 10:18 Freq: Status: Active Protocol: MARY.LOWEXT Activity Type Activity Date Activity User E-sign Co-sign Detail Recorded Client Recorded Date Recorded By Document 02/09/22 10:18 [facility] [id number] 02/09/22 10:21 [facility] 02/09/22 10:18 - Today's Visit Information Type of service Follow-up Visit (Physician/[employer] ) Arrival Mode Wheelchair Transfer Assistance Other Transfer Assist (Other) STAND BY Accompanied by DAD Patient Identification Verified (Name & Yes ) Patient Requires Transmission-Based No Precautions Height and Weight Body Mass Index (BMI) 41.8 BMI Classification Obese Vital Signs Temperature (97.8 F-99.1 F) 97.3 F L Temperature Source Temporal Pulse Rate (60-100) 87 Pulse Location Monitor Respiratory Rate (12-18) 16 Respiratory rate source Observation Oxygen Delivery Method Room Air Blood Pressure (90/60-120/80) 123/65 H Blood Pressure Mean (mm Hg) 84 Source Monitor Position Sitting Blood Pressure Location Right Arm History Since Last Visit- (Skip if this is Patient's initial visit) Have you changed medications since your No last visit? Any new allergies or adverse reactions No Had a fall/change in ADL's that may No increase risk of falls Signs or symptoms of abuse and/or No neglect since last visit Have you been in the hospital since your No last visit? Has dressing in place as prescribed Yes Has compression in place as prescribed Yes Has offloadiing in place as prescribed N/A Experienced any changes in pain level or No management Pain Scale: 0-10 Numeric Is Patient Pain Free? Yes - Nurse 1 - General Ulcer Measurement Start: 02/09/22 10:18 Freq: Status: Active Protocol: Activity Type Activity Date Activity User E-sign Co-sign Detail Recorded Client Recorded Date Recorded By Document 02/09/22 10:18 [facility] [id number] 02/09/22 10:21 [facility] 02/09/22 10:18 Wound Center Nurse 1 #2- L PLANTAR FOOT POST OP -Combined with other wound No -Current Size (cm) - Length 0.6 -Current Size (cm) - Width 1.2 -Current Size (cm) - Depth 0.1 -Total Square Cm 0.72 -Photo Taken No -Epithelialization Small 1-33% -Tunneling No -Undermining/Tunneling No -Circular Undermining No -Exudate Amt Small -Exudate Type Sanguineous -Wound Margin Distinct, Outline Attached -Granulation Amt Medium (34-66%) -Granulation Quality Pale -Slough/Fibrin Yes -Necrosis Amt Medium (34-66%) -Necrotic Tissue Type Adherent Slough -Texture ([place]-wound Skin Appearance) Assessed, Scarring -Moisture ([place]-wound Skin Appearance) Assessed,Dry/ Scaly -Color ([place]-wound Skin Appearance) Assessed -Temperature ([place]-wound Skin No Abnormality Appearance) (Pt Warm) -Tenderness on Palpation ([place]-wound No Skin Appearance) -Ulcer Cleansing Soap and Water -Foul Odor after Cleansing No -Anesthetic Used 4% Lidocaine Solution #1- L DORSAL FOOT POST OP -Combined with other wound No -Current Size (cm) - Length 6.7 -Current Size (cm) - Width 4.3 -Current Size (cm) - Depth 0.1 -Total Square Cm 28.81 -Epithelialization Small 1-33% -Tunneling No -Undermining/Tunneling No -Circular Undermining No -Exudate Type Yellow/Green -Wound Margin Distinct, Outline Attached -Granulation Amt Medium (34-66%) -Granulation Quality Red -Slough/Fibrin Yes -Necrosis Amt Small (1-33%) -Necrotic Tissue Type Adherent Slough -Texture ([place]-wound Skin Appearance) Assessed, Fluctuance -Moisture ([place]-wound Skin Appearance) Assessed -Color ([place]-wound Skin Appearance) Assessed -Temperature ([place]-wound Skin No Abnormality Appearance) (Pt Warm) -Tenderness on Palpation ([place]-wound No Skin Appearance) -Ulcer Cleansing Soap and Water -Foul Odor after Cleansing No -Anesthetic Used 4% Lidocaine Solution Lower Limb Edema Present Yes Left Calf (cm) 35 Left Ankle (cm) 25 WC - Nurse 2 - General Ulcer CM Notes Start: 02/09/22 10:18 Freq: Status: Active Protocol: Activity Type Activity Date Activity User E-sign Co-sign Detail Recorded Client Recorded Date Recorded By Document 02/09/22 11:03 MW [id number] 02/09/22 11:09 MW 02/09/22 11:03 Wound Center Nurse 2 #2- L PLANTAR FOOT POST OP -Time 11:03 -Correct Patient Yes -Correct Side, Site, Position Yes -Correct Procedure Yes -Procedure Performed Yes -Type of Procedure Debridement -Clinical Debridement Subcutaneous -Tissue Removed Subcutaneous -Post Debridement (cm) - Length 0.3 -Post Debridement (cm) - Width 2.3 -Post Debridement (cm) - Depth 0.2 -Total Square (Post) (cm) 0.69 -Area of Debridement (cm) - Length 0.3 -Area of Debridement (cm) - Width 2.3 -Total Square (Area) (cm) 0.69 -Tunneling No -Undermining/Tunneling No -Circular Undermining No -Wound/Ulcer Outcome Not Healed -Ulcer Cleansing Rinsed/ Irrigated with Saline -Foul Odor after Cleansing No -Bioengineered Tissue No -Bleeding Controlled with Pressure -Treatment Response Procedure Tolerated Well -Offloading No -Debridement - Subq, 1st 20sq cm No #1- L DORSAL FOOT POST OP -Time 11:03 -Correct Patient Yes -Correct Side, Site, Position Yes -Correct Procedure Yes -Procedure Performed Yes -Type of Procedure Debridement -Clinical Debridement Subcutaneous -Tissue Removed Subcutaneous -Post Debridement (cm) - Length 5.6 -Post Debridement (cm) - Width 4.7 -Post Debridement (cm) - Depth 0.1 -Total Square (Post) (cm) 26.32 -Area of Debridement (cm) - Length 5.6 -Area of Debridement (cm) - Width 4.7 -Total Square (Area) (cm) 26.32 -Tunneling No -Undermining/Tunneling No -Circular Undermining No -Wound/Ulcer Outcome Not Healed -Ulcer Cleansing Rinsed/ Irrigated with Saline -Foul Odor after Cleansing No -Bioengineered Tissue No -Bleeding Controlled with Pressure,Silver Nitrate -Treatment Response Procedure Tolerated Well -Offloading No -Debridement - Subq, 1st 20sq cm Yes -Debridement, SubQ, ea addt'l 20sq cm 1 or part thereof Pain Scale: 0-10 Numeric Is Patient Pain Free? Yes WC - Nurse 3 - General Ulcer D/C NN Start: 02/09/22 10:18 Freq: Status: Active Protocol: Activity Type Activity Date Activity User E-sign Co-sign Detail Recorded Client Recorded Date Recorded By Document 02/09/22 12:19 MW [id number] 02/09/22 12:20 MW 02/09/22 12:19 Wound Care Nurse 3 #2- L PLANTAR FOOT POST OP -Ulcer Cleansing Rinsed/ Irrigated with Saline -Foul Odor after Cleansing No -Negative Pressure Wound Therapy N/A -Primary Dressing Applied Promogran Ale Matter -Other Covering abd -Promogran Ale Matter 1 #1- L DORSAL FOOT POST OP -Ulcer Cleansing Rinsed/ Irrigated with Saline -Foul Odor after Cleansing No -Negative Pressure Wound Therapy N/A -Primary Dressing Applied Aquacel AG 4x4 -Other Covering abd -Aquacel AG 4x4 1 Left -Lotion applied to leg before No compression wrap -Multi-Layered Wrap Application Multi-Layer Comp - Left ($) Treatment Response Procedure Tolerated Well Pain Scale: 0-10 Numeric Is Patient Pain Free? Yes Teaching: Wound Center Dressing Your Wound -Person Taught Patient,Family -Teaching Method Discussion -Response to teaching Verbalize understanding WC - Visit Discharge Discharge Condition Stable Ambulatory Status Wheelchair Transportation Private Auto Accompanied by dad Medication Reconcilliation completed & No provided to patient/care provider Clinical Summary of Care Provided Yes Assessment/Plan Assessment/Plan (1) Osteomyelitis of ankle or foot, left, acute: CODE(S): M86.172 - Other acute osteomyelitis, left ankle and foot (2) Charcot arthropathy of midfoot: CODE(S): M14.679 - Charcot's joint, unspecified ankle and foot (3) 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 muscle: CODE(S): L97.523 - 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 muscle PLAN: Patient examined evaluated, all fine discussed with patient detail. Patient is currently off IV antibiotics, no residual signs of infection at this time. Patient notes minimal drainage. Wounds healing significantly every week. Patient is dorsal left foot wound was excisionally debrided down to including level of tendon to the left foot. This was debrided of all nonviable tissue. Pre and postdebridement measurements document nursing notes. No anesthesia required due to neuropathy. Hemostasis obtained with light compression. Plantar left midfoot ulceration down debrided excisionally down to including level subcutaneous tissue of all nonviable tissue with a 5 mm dermal curette without incident. No anesthesia required due to neuropathy. Hemostasis obtained with light compression. Patient tolerated procedures well in apparent satisfactory condition. Patient will continue Ale to plantar midfoot ulceration as well as Aquacel to dorsal midfoot ulceration with DSD and 3M compression wrap this will be changed on Jul[place] as an in between dressing change. He will continue nonweightbearing status to left lower extremity with 81 mg aspirin for DVT prophylaxis. Patient will follow up in 1 week. (4) Type 2 diabetes mellitus with diabetic polyneuropathy: CODE(S): E11.42 - Type 2 diabetes mellitus with diabetic polyneuropathy QUALIFIERS: Diabetes mellitus terminal operations supervisor insulin use: without terminal operations supervisor use Qualified Code(s): E11.42 - Type 2 diabetes mellitus with diabetic polyneuropathy
[2022-02-23 09:37] VITALS: BP 120/66; PULSE 92; RESP 16; TEMP 36.3; BMI 41.8
--- NOTE | 2022-02-23 10:13 | PN.PCM_ITS ---
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 History of Wound: This is a 41-year-old diabetic white male who presented with fevers, sweats, chills, malaise, and left foot swelling and redness, and found to have a diabetic left foot infection on November 14, 2021. Patient is infection is resolved after 2 incisions and drainage with 6 weeks of IV antibiotics per PICC line. Patient's wounds have been improving well. He is maintain nonweightbearing status denies any chest pain calf pain shortness of breath. Patient has not no constitutional symptoms at this time and no new complaints. Objective Data Objective Data Vital Signs: Vital Signs Temp Pulse Resp BP O2 Del Method 97.3 F L 92 16 120/66 Room Air 02/23/22 09:37 02/23/22 09:37 02/23/22 09:37 02/23/22 09:37 02/23/22 09:37 Oxygen Delivery Method Room Air Weight: 136.078 kg Body Mass Index (BMI) 41.8 Physical Exam Narrative Patient is alert oriented to person place and time. Patient is maintaining a nonweightbearing status to his left lower extremity with a wheelchair. Vascular: Left lower extremity vascular examination deferred there is brisk capillary fill time to the lesser digits on the left side. Neurovascular status intact right lower extremity. Neurologic: Light touch protective sensation absent to bilateral feet. Dermatologic: Dorsal foot wound appears to be improving well at this time there is 100% granular base with overlying incorporating TheraSkin graft. pre and postdebridement measurements document nursing notes this was down the level of the tibialis anterior tendon. No signs of infection at this time. Plantar left midfoot wound healed at this time. Musculoskeletal: There is noted to be a plantar lateral convexity of the left foot secondary to Charcot deformity at the level of the midfoot. There is noted to be a varus deformity of the right ankle secondary to Charcot foot and multiple incision and drainages on that side. Muscular strength is intact to bilateral lower extremity compartments. Debridement Note Debridement Note Post-Debridement Measurements and Additional Note: Post-Debridement Measurements/Treatment MARY - Nurse 1 - General Ulcer Assessment Start: 02/09/22 10:18 Freq: Status: Active Protocol: LOWEXT Activity Type Activity Date Activity User E-sign Co-sign Detail Recorded Client Recorded Date Recorded By Document 02/09/22 10:18 [facility] [id number] 02/09/22 10:21 [facility] Document 02/16/22 11:09 MO [id number] 02/16/22 11:31 MO Document 02/23/22 09:37 [facility] [id number] 02/23/22 09:49 [facility] 02/09/22 02/16/22 02/23/22 10:18 11:09 09:37 WC - Today's Visit Information Type of service Follow-up Visit Follow-up Visit Follow-up Visit (Physician/DIAMOND SETTER APPRENTICE (Physician/DIAMOND SETTER APPRENTICE (Physician/DIAMOND SETTER APPRENTICE ) ) ) Arrival Mode Wheelchair Wheelchair Wheelchair Transfer Assistance Other None Transfer Assist (Other) STAND BY Accompanied by DAD dad Patient Identification Verified (Name & Yes Yes Yes ) Patient Requires Transmission-Based No No No Precautions Height and Weight Body Mass Index (BMI) 41.8 41.8 41.8 BMI Classification Obese Obese Obese Vital Signs Temperature (97.8 F-99.1 F) 97.3 F L 96.3 F L 97.3 F L Temperature Source Temporal Temporal Temporal Pulse Rate (60-100) 87 86 92 Pulse Location Monitor Monitor Monitor Respiratory Rate (12-18) 16 16 Respiratory rate source Observation Observation Oxygen Delivery Method Room Air Room Air Blood Pressure (90/60-120/80) 123/65 H 114/68 120/66 Blood Pressure Mean (mm Hg) 84 83 84 Source Monitor Monitor Position Sitting Sitting Blood Pressure Location Right Arm Right Arm History Since Last Visit- (Skip if this is Patient's initial visit) Have you changed medications since your No No last visit? Any new allergies or adverse reactions No No No Had a fall/change in ADL's that may No No No increase risk of falls Signs or symptoms of abuse and/or No No No neglect since last visit Have you been in the hospital since your No No No last visit? Has dressing in place as prescribed Yes Yes Yes Has compression in place as prescribed Yes Yes Yes Has offloadiing in place as prescribed N/A No Yes Experienced any changes in pain level or No No No management Left Footwear Regular Shoe No Footwear Right Footwear Regular Shoe Removable Cast Walker/Walking Boot Pain Scale: 0-10 Numeric Is Patient Pain Free? Yes Yes Yes WC - Nurse 1 - General Ulcer Measurement Start: 02/09/22 10:18 Freq: Status: Active Protocol: Activity Type Activity Date Activity User E-sign Co-sign Detail Recorded Client Recorded Date Recorded By Document 02/09/22 10:18 [facility] [id number] 02/09/22 10:21 BM Document 02/16/22 11:09 MO [id number] 02/16/22 11:31 MO Document 02/23/22 09:37 [facility] [id number] 02/23/22 09:49 BMF 02/09/22 02/16/22 02/23/22 10:18 11:09 09:37 Wound Center Nurse 1 #2- L PLANTAR FOOT POST OP -Combined with other wound No No No -Current Size (cm) - Length 0.6 0.6 0.5 -Current Size (cm) - Width 1.2 3 2.9 -Current Size (cm) - Depth 0.1 0.1 0.1 -Total Square Cm 0.72 1.8 1.45 -Date of Last Picture (Recall this 02/23/22 field) -Photo Taken No No Yes -Epithelialization Small 1-33% None Present -Tunneling No No No -Undermining/Tunneling No No No -Circular Undermining No No No -Exudate Amt Small Medium None Present -Exudate Type Sanguineous Serosanguineous -Wound Margin Distinct, Distinct, Distinct, Outline Outline Outline Attached Attached Attached -Granulation Amt Medium (34-66%) Large (67-100%) None Present (0 %) -Granulation Quality Pale Red -Slough/Fibrin Yes Yes Yes -Necrosis Amt Medium (34-66%) Small (1-33%) Large (67-100%) -Necrotic Tissue Type Adherent Slough Adherent Slough Adherent Slough -Structure Exposed N/A -Texture ([place]-wound Skin Appearance) Assessed, Assessed, Assessed, Scarring Scarring Scarring -Moisture ([place]-wound Skin Appearance) Assessed,Dry/ No Abnormality, Assessed,Dry/ Scaly Assessed Scaly -Color ([place]-wound Skin Appearance) Assessed No Abnormality, Assessed Assessed -Temperature ([place]-wound Skin No Abnormality No Abnormality No Abnormality Appearance) (Pt Warm) (Pt Warm) (Pt Warm) -Tenderness on Palpation ([place]-wound No No No Skin Appearance) -Ulcer Cleansing Soap and Water Soap and Water Soap and Water -Foul Odor after Cleansing No No No -Anesthetic Used 4% Lidocaine 4% Lidocaine 4% Lidocaine Solution Solution Solution #1- L DORSAL FOOT POST OP -Combined with other wound No No No -Current Size (cm) - Length 6.7 5.5 4.7 -Current Size (cm) - Width 4.3 2.4 -Current Size (cm) - Depth 0.1 0.1 -Total Square Cm 28.81 11.28 -Date of Last Picture (Recall this 02/23/22 field) -Photo Taken Yes -Epithelialization Small 1-33% Small 1-33% -Tunneling No No -Undermining/Tunneling No No -Circular Undermining No No -Exudate Amt Medium -Exudate Type Yellow/Green Serosanguineous -Wound Margin Distinct, Distinct, Outline Outline Attached Attached -Granulation Amt Medium (34-66%) Large (67-100%) -Granulation Quality Red Red -Slough/Fibrin Yes Yes -Necrosis Amt Small (1-33%) Small (1-33%) -Necrotic Tissue Type Adherent Slough Adherent Slough -Structure Exposed Tendon -Texture ([place]-wound Skin Appearance) Assessed, Assessed, Fluctuance Scarring -Moisture ([place]-wound Skin Appearance) Assessed Assessed -Color ([place]-wound Skin Appearance) Assessed Assessed -Temperature ([place]-wound Skin No Abnormality No Abnormality Appearance) (Pt Warm) (Pt Warm) -Tenderness on Palpation ([place]-wound No No Skin Appearance) -Ulcer Cleansing Soap and Water Soap and Water -Foul Odor after Cleansing No No -Anesthetic Used 4% Lidocaine 4% Lidocaine Solution Solution Lower Limb Edema Present Yes Yes Left Calf (cm) 35 34.7 Left Ankle (cm) 25 22.6 WC - Nurse 2 - General Ulcer CM Notes Start: 02/09/22 10:18 Freq: Status: Active Protocol: Activity Type Activity Date Activity User E-sign Co-sign Detail Recorded Client Recorded Date Recorded By Document 02/09/22 11:03 MW [id number] 02/09/22 11:09 MW Document 02/16/22 11:06 [id number] 02/16/22 11:12 Document 02/23/22 10:12 [id number] 02/23/22 10:13 02/09/22 02/16/22 02/23/22 11:03 11:06 10:12 Wound Center Nurse 2 #2- L PLANTAR FOOT POST OP -Time 11:03 11:06 -Correct Patient Yes No No -Correct Side, Site, Position Yes No No -Correct Procedure Yes No No -Procedure Performed Yes No No -Type of Procedure Debridement -Clinical Debridement Subcutaneous -Tissue Removed Subcutaneous -Post Debridement (cm) - Length 0.3 0.1 -Post Debridement (cm) - Width 2.3 0.1 -Post Debridement (cm) - Depth 0.2 0.1 -Total Square (Post) (cm) 0.69 0.01 -Area of Debridement (cm) - Length 0.3 0.1 -Area of Debridement (cm) - Width 2.3 0.1 -Total Square (Area) (cm) 0.69 0.01 -Tunneling No No -Undermining/Tunneling No No -Circular Undermining No No -Wound/Ulcer Outcome Not Healed Not Healed Not Healed -Ulcer Cleansing Rinsed/ Rinsed/ Irrigated with Irrigated with Saline Saline -Foul Odor after Cleansing No No -Bioengineered Tissue No No -Bleeding Controlled with Pressure Pressure -Treatment Response Procedure Procedure Tolerated Well Tolerated Well -Offloading No No -Assistive Device(s) Wheelchair -Debridement - Subq, 1st 20sq cm No No #1- L DORSAL FOOT POST OP -Time 11:03 11:06 10:12 -Correct Patient Yes Yes Yes -Correct Side, Site, Position Yes Yes Yes -Correct Procedure Yes Yes Yes -Procedure Performed Yes Yes Yes -Type of Procedure Debridement Debridement Debridement -Clinical Debridement Subcutaneous Subcutaneous Subcutaneous -Tissue Removed Subcutaneous Subcutaneous Subcutaneous -Post Debridement (cm) - Length 5.6 6.8 4.8 -Post Debridement (cm) - Width 4.7 4.4 2.5 -Post Debridement (cm) - Depth 0.1 0.1 0.1 -Total Square (Post) (cm) 26.32 29.92 12.00 -Area of Debridement (cm) - Length 5.6 6.8 4.8 -Area of Debridement (cm) - Width 4.7 4.4 2.5 -Total Square (Area) (cm) 26.32 29.92 12.00 -Tunneling No No No -Undermining/Tunneling No No No -Circular Undermining No No No -Wound/Ulcer Outcome Not Healed Not Healed Not Healed -Ulcer Cleansing Rinsed/ Rinsed/ Rinsed/ Irrigated with Irrigated with Irrigated with Saline Saline Saline -Foul Odor after Cleansing No No No -Bioengineered Tissue No No No -Bleeding Controlled with Pressure,Silver Pressure Pressure Nitrate -Treatment Response Procedure Procedure Procedure Tolerated Well Tolerated Well Tolerated Well -Offloading No No No -Assistive Device(s) Wheelchair Wheelchair -Debridement - Subq, 1st 20sq cm Yes Yes Yes -Debridement, SubQ, ea addt'l 20sq cm 1 1 or part thereof Pain Scale: 0-10 Numeric Is Patient Pain Free? Yes Yes Yes WC - Nurse 3 - General Ulcer D/C NN Start: 02/09/22 10:18 Freq: Status: Active Protocol: Activity Type Activity Date Activity User E-sign Co-sign Detail Recorded Client Recorded Date Recorded By Document 02/09/22 12:19 MW [id number] 02/09/22 12:20 MW Document 02/16/22 11:21 [facility] [id number] 02/16/22 11:22 [facility] 02/09/22 02/16/22 12:19 11:21 Wound Care Nurse 3 #2- L PLANTAR FOOT POST OP -Ulcer Cleansing Rinsed/ Rinsed/ Irrigated with Irrigated with Saline Saline -Foul Odor after Cleansing No No -Negative Pressure Wound Therapy N/A -Primary Dressing Applied Promogran C Hydrogel ($) Ale Matter -Primary Dressing Covered/Secured with Dry Gauze -Other Covering abd -Promogran Ale Matter 1 #1- L DORSAL FOOT POST OP -Ulcer Cleansing Rinsed/ Rinsed/ Irrigated with Irrigated with Saline Saline -Foul Odor after Cleansing No No -Negative Pressure Wound Therapy N/A -Primary Dressing Applied Aquacel AG 4x4 Aquacel AG 2x2 -Other Dressing ABD -Other Covering abd -Aquacel AG 4x4 1 -Aquacel AG 2x2 1 Left -Lotion applied to leg before No Yes compression wrap -Multi-Layered Wrap Application Multi-Layer Multi-Layer Comp - Left ($) Comp - Left ($) Treatment Response Procedure Procedure Tolerated Well Tolerated Well Pain Scale: 0-10 Numeric Is Patient Pain Free? Yes Yes Teaching: Wound Center Dressing Your Wound -Person Taught Patient,Family -Teaching Method Discussion -Response to teaching Verbalize understanding WC - Visit Discharge Discharge Condition Stable Stable Ambulatory Status Wheelchair Wheelchair Transportation Private Auto Private Auto Accompanied by dad [place] Medication Reconcilliation completed & No provided to patient/care provider Clinical Summary of Care Provided Yes Facility Type Home Health Assessment/Plan Assessment/Plan (1) Osteomyelitis of ankle or foot, left, acute: CODE(S): M86.172 - Other acute osteomyelitis, left ankle and foot (2) Charcot arthropathy of midfoot: CODE(S): M14.679 - Charcot's joint, unspecified ankle and foot (3) 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 muscle: CODE(S): L97.523 - 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 muscle PLAN: Patient examined evaluated, all fine discussed with patient detail. No concern for residual infection. Wounds healing significantly every week. Patient is dorsal left foot wound was excisionally debrided down to including level of tendon to the left foot. This was debrided of all nonviable tissue. Pre and postdebridement measurements document nursing notes. No anesthesia required due to neuropathy. Hemostasis obtained with light compression. Plantar left midfoot ulceration down debrided excisionally down to including level subcutaneous tissue of all nonviable tissue with a 5 mm dermal curette without incident. No anesthesia required due to neuropathy. Hemostasis obtained with light compression. Patient tolerated procedures well in apparent satisfactory condition. Recommend daily Betadine paint to plantar left foot. Continue silver alginate to dorsal midfoot with compression. Continue nonweightbearing to left lower extremity with baby aspirin for DVT prophylaxis. Elevate left lower extremity at rest above heart. Follow-up in 1 week. (4) Type 2 diabetes mellitus with diabetic polyneuropathy: CODE(S): E11.42 - Type 2 diabetes mellitus with diabetic polyneuropathy QUALIFIERS: Diabetes mellitus skilled nursing insulin use: without skilled nursing use Qualified Code(s): E11.42 - Type 2 diabetes mellitus with diabetic polyneuropathy
[2022-03-02 09:51] VITALS: BP 116/65; PULSE 81; RESP 16; TEMP 36.1; BMI 41.8
--- NOTE | 2022-03-02 10:18 | PN.PCM_ITS ---
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 History of Wound: This is a 41-year-old diabetic white male who presented with fevers, sweats, chills, malaise, and left foot swelling and redness, and found to have a diabetic left foot infection on November 14, 2021. Patient is infection is resolved after 2 incisions and drainage with 6 weeks of IV antibiotics per PICC line. Patient's wounds have been improving well. He is maintain nonweightbearing status denies any chest pain calf pain shortness of breath. Patient has not no constitutional symptoms at this time and no new complaints. Objective Data Objective Data Vital Signs: Vital Signs Temp Pulse Resp BP O2 Del Method 96.9 F L 81 16 116/65 Room Air 03/02/22 09:51 03/02/22 09:51 03/02/22 09:51 03/02/22 09:51 03/02/22 09:51 Oxygen Delivery Method Room Air Weight: 136.078 kg Body Mass Index (BMI) 41.8 Physical Exam Narrative Patient is alert oriented to person place and time. Patient is maintaining a nonweightbearing status to his left lower extremity with a wheelchair. Vascular: Left lower extremity vascular examination deferred there is brisk capillary fill time to the lesser digits on the left side. Neurovascular status intact right lower extremity. Neurologic: Light touch protective sensation absent to bilateral feet. Dermatologic: Dorsal foot wound appears to be improving well at this time there is 100% granular base with overlying incorporating TheraSkin graft. pre and postdebridement measurements document nursing notes this was down the level of the tibialis anterior tendon. No signs of infection at this time. Plantar left midfoot wound healed at this time. Musculoskeletal: There is noted to be a plantar lateral convexity of the left foot secondary to Charcot deformity at the level of the midfoot. There is noted to be a varus deformity of the right ankle secondary to Charcot foot and multiple incision and drainages on that side. Muscular strength is intact to bilateral lower extremity compartments. Debridement Note Debridement Note Post-Debridement Measurements and Additional Note: Post-Debridement Measurements/Treatment MARY - Nurse 1 - General Ulcer Assessment Start: 02/09/22 10:18 Freq: Status: Active Protocol: LOWEXT Activity Type Activity Date Activity User E-sign Co-sign Detail Recorded Client Recorded Date Recorded By Document 02/09/22 10:18 [facility] [id number] 02/09/22 10:21 [facility] Document 02/16/22 11:09 [place] [id number] 02/16/22 11:31 AK Document 02/23/22 09:37 [facility] [id number] 02/23/22 09:49 [facility] Document 03/02/22 09:51 [id number] 03/02/22 10:10 MW 02/09/22 02/16/22 02/23/22 10:18 11:09 09:37 WC - Today's Visit Information Type of service Follow-up Visit Follow-up Visit Follow-up Visit (Physician/STRUCTURAL STEEL PAINTER (Physician/STRUCTURAL STEEL PAINTER (Physician/STRUCTURAL STEEL PAINTER ) ) ) Arrival Mode Wheelchair Wheelchair Wheelchair Transfer Assistance Other None Transfer Assist (Other) STAND BY Accompanied by DAD dad Patient Identification Verified (Name & Yes Yes Yes ) Patient Requires Transmission-Based No No No Precautions Finger Stick Blood Sugar(mg/dl) (if indicated): Blood Sugar Height and Weight Body Mass Index (BMI) 41.8 41.8 41.8 BMI Classification Obese Obese Obese Vital Signs Temperature (97.8 F-99.1 F) 97.3 F L 96.3 F L 97.3 F L Temperature Source Temporal Temporal Temporal Pulse Rate (60-100) 87 86 92 Pulse Location Monitor Monitor Monitor Respiratory Rate (12-18) 16 16 Respiratory rate source Observation Observation Oxygen Delivery Method Room Air Room Air Blood Pressure (90/60-120/80) 123/65 H 114/68 120/66 Blood Pressure Mean (mm Hg) 84 83 84 Source Monitor Monitor Position Sitting Sitting Blood Pressure Location Right Arm Right Arm History Since Last Visit- (Skip if this is Patient's initial visit) Have you changed medications since your No No last visit? Any new allergies or adverse reactions No No No Had a fall/change in ADL's that may No No No increase risk of falls Signs or symptoms of abuse and/or No No No neglect since last visit Have you been in the hospital since your No No No last visit? Has dressing in place as prescribed Yes Yes Yes Has compression in place as prescribed Yes Yes Yes Has offloadiing in place as prescribed N/A No Yes Experienced any changes in pain level or No No No management Left Footwear Regular Shoe No Footwear Right Footwear Regular Shoe Removable Cast Walker/Walking Boot Pain Scale: 0-10 Numeric Is Patient Pain Free? Yes Yes Yes 03/02/22 09:51 - Today's Visit Information Type of service Follow-up Visit (Physician/STRUCTURAL STEEL PAINTER ) Arrival Mode Ambulatory Transfer Assistance None Transfer Assist (Other) Accompanied by dad Patient Identification Verified (Name & Yes ) Patient Requires Transmission-Based No Precautions Finger Stick Blood Sugar(mg/dl) (if 103 indicated): Blood Sugar Stated by Patient Height and Weight Body Mass Index (BMI) 41.8 BMI Classification Obese Vital Signs Temperature (97.8 F-99.1 F) 96.9 F L Temperature Source Temporal Pulse Rate (60-100) 81 Pulse Location Monitor Respiratory Rate (12-18) 16 Respiratory rate source Ausculation Oxygen Delivery Method Room Air Blood Pressure (90/60-120/80) 116/65 Blood Pressure Mean (mm Hg) 82 Source Monitor Position Sitting Blood Pressure Location Right Arm History Since Last Visit- (Skip if this is Patient's initial visit) Have you changed medications since your No last visit? Any new allergies or adverse reactions No Had a fall/change in ADL's that may No increase risk of falls Signs or symptoms of abuse and/or No neglect since last visit Have you been in the hospital since your No last visit? Has dressing in place as prescribed Yes Has compression in place as prescribed Yes Has offloadiing in place as prescribed N/A Experienced any changes in pain level or No management Left Footwear No Footwear Right Footwear Removable Cast Walker/Walking Boot Pain Scale: 0-10 Numeric Is Patient Pain Free? Yes - Nurse 1 - General Ulcer Measurement Start: 02/09/22 10:18 Freq: Status: Active Protocol: Activity Type Activity Date Activity User E-sign Co-sign Detail Recorded Client Recorded Date Recorded By Document 02/09/22 10:18 [facility] [id number] 02/09/22 10:21 BM Document 02/16/22 11:09 AK [id number] 02/16/22 11:31 AK Document 02/23/22 09:37 [facility] [id number] 02/23/22 09:49 BM[facility] Document 03/02/22 09:51 MW [id number] 03/02/22 10:10 MW 02/09/22 02/16/22 02/23/22 10:18 11:09 09:37 Wound Center Nurse 1 #2- L PLANTAR FOOT POST OP -Combined with other wound No No No -Current Size (cm) - Length 0.6 0.6 0.5 -Current Size (cm) - Width 1.2 3 2.9 -Current Size (cm) - Depth 0.1 0.1 0.1 -Total Square Cm 0.72 1.8 1.45 -Date of Last Picture (Recall this 02/23/22 field) -Photo Taken No No Yes -Epithelialization Small 1-33% None Present -Tunneling No No No -Undermining/Tunneling No No No -Circular Undermining No No No -Exudate Amt Small Medium None Present -Exudate Type Sanguineous Serosanguineous -Wound Margin Distinct, Distinct, Distinct, Outline Outline Outline Attached Attached Attached -Granulation Amt Medium (34-66%) Large (67-100%) None Present (0 %) -Granulation Quality Pale Red -Slough/Fibrin Yes Yes Yes -Necrosis Amt Medium (34-66%) Small (1-33%) Large (67-100%) -Necrotic Tissue Type Adherent Slough Adherent Slough Adherent Slough -Structure Exposed N/A -Texture ([place]-wound Skin Appearance) Assessed, Assessed, Assessed, Scarring Scarring Scarring -Moisture ([place]-wound Skin Appearance) Assessed,Dry/ No Abnormality, Assessed,Dry/ Scaly Assessed Scaly -Color ([place]-wound Skin Appearance) Assessed No Abnormality, Assessed Assessed -Temperature ([place]-wound Skin No Abnormality No Abnormality No Abnormality Appearance) (Pt Warm) (Pt Warm) (Pt Warm) -Tenderness on Palpation ([place]-wound No No No Skin Appearance) -Ulcer Cleansing Soap and Water Soap and Water Soap and Water -Foul Odor after Cleansing No No No -Anesthetic Used 4% Lidocaine 4% Lidocaine 4% Lidocaine Solution Solution Solution #1- L DORSAL FOOT POST OP -Combined with other wound No No No -Current Size (cm) - Length 6.7 5.5 4.7 -Current Size (cm) - Width 4.3 2.4 -Current Size (cm) - Depth 0.1 0.1 -Total Square Cm 28.81 11.28 -Date of Last Picture (Recall this 02/23/22 field) -Photo Taken Yes -Epithelialization Small 1-33% Small 1-33% -Tunneling No No -Undermining/Tunneling No No -Circular Undermining No No -Exudate Amt Medium -Exudate Type Yellow/Green Serosanguineous -Wound Margin Distinct, Distinct, Outline Outline Attached Attached -Granulation Amt Medium (34-66%) Large (67-100%) -Granulation Quality Red Red -Slough/Fibrin Yes Yes -Necrosis Amt Small (1-33%) Small (1-33%) -Necrotic Tissue Type Adherent Slough Adherent Slough -Structure Exposed Tendon -Texture ([place]-wound Skin Appearance) Assessed, Assessed, Fluctuance Scarring -Moisture ([place]-wound Skin Appearance) Assessed Assessed -Color ([place]-wound Skin Appearance) Assessed Assessed -Temperature ([place]-wound Skin No Abnormality No Abnormality Appearance) (Pt Warm) (Pt Warm) -Tenderness on Palpation ([place]-wound No No Skin Appearance) -Ulcer Cleansing Soap and Water Soap and Water -Foul Odor after Cleansing No No -Anesthetic Used 4% Lidocaine 4% Lidocaine Solution Solution Lower Limb Edema Present Yes Yes Left Calf (cm) 35 34.7 Left Ankle (cm) 25 22.6 03/02/22 09:51 Wound Center Nurse 1 #2- L PLANTAR FOOT POST OP -Combined with other wound No -Current Size (cm) - Length 1.0 -Current Size (cm) - Width 3.0 -Current Size (cm) - Depth 0.1 -Total Square Cm 3.00 -Date of Last Picture (Recall this 03/02/22 field) -Photo Taken Yes -Epithelialization None Present -Tunneling No -Undermining/Tunneling No -Circular Undermining No -Exudate Amt Medium -Exudate Type Serosanguineous -Wound Margin Flat & Intact -Granulation Amt None Present (0 %) -Granulation Quality Hyper- granulation -Slough/Fibrin Yes -Necrosis Amt Large (67-100%) -Necrotic Tissue Type Adherent Slough -Structure Exposed N/A -Texture ([place]-wound Skin Appearance) Assessed, Localized Edema ,Scarring -Moisture ([place]-wound Skin Appearance) Assessed,Dry/ Scaly -Color ([place]-wound Skin Appearance) No Abnormality, Assessed -Temperature ([place]-wound Skin No Abnormality Appearance) (Pt Warm) -Tenderness on Palpation ([place]-wound No Skin Appearance) -Ulcer Cleansing Soap and Water -Foul Odor after Cleansing No -Anesthetic Used 5% Lidocaine Gel #1- L DORSAL FOOT POST OP -Combined with other wound No -Current Size (cm) - Length 5.8 -Current Size (cm) - Width 3.2 -Current Size (cm) - Depth 0.1 -Total Square Cm 18.56 -Date of Last Picture (Recall this 03/02/22 field) -Photo Taken Yes -Epithelialization None Present -Tunneling No -Undermining/Tunneling No -Circular Undermining No -Exudate Amt Medium -Exudate Type Serosanguineous -Wound Margin Distinct, Outline Attached -Granulation Amt Large (67-100%) -Granulation Quality Red -Slough/Fibrin Yes -Necrosis Amt Small (1-33%) -Necrotic Tissue Type Adherent Slough -Structure Exposed N/A -Texture ([place]-wound Skin Appearance) Assessed, Localized Edema ,Scarring -Moisture ([place]-wound Skin Appearance) Assessed,Dry/ Scaly -Color ([place]-wound Skin Appearance) No Abnormality, Assessed -Temperature ([place]-wound Skin No Abnormality Appearance) (Pt Warm) -Tenderness on Palpation ([place]-wound No Skin Appearance) -Ulcer Cleansing Soap and Water -Foul Odor after Cleansing No -Anesthetic Used 5% Lidocaine Gel Lower Limb Edema Present Yes Left Calf (cm) 35.4 Left Ankle (cm) 23.5 WC - Nurse 2 - General Ulcer CM Notes Start: 02/09/22 10:18 Freq: Status: Active Protocol: Activity Type Activity Date Activity User E-sign Co-sign Detail Recorded Client Recorded Date Recorded By Document 02/09/22 11:03 [id number] 02/09/22 11:09 Document 02/16/22 11:06 [id number] 02/16/22 11:12 Document 02/23/22 10:12 [id number] 02/23/22 10:13 Document 03/02/22 10:14 [id number] 03/02/22 10:18 0702/16/22 02/23/22 11:03 11:06 10:12 Wound Center Nurse 2 #2- L PLANTAR FOOT POST OP -Time 11: 11:06 -Correct Patient Yes No No -Correct Side, Site, Position Yes No No -Correct Procedure Yes No No -Procedure Performed Yes No No -Type of Procedure Debridement -Clinical Debridement Subcutaneous -Tissue Removed Subcutaneous -Post Debridement (cm) - Length 0.3 0.1 -Post Debridement (cm) - Width 2.3 0.1 -Post Debridement (cm) - Depth 0.2 0.1 -Total Square (Post) (cm) 0.69 0.01 -Area of Debridement (cm) - Length 0.3 0.1 -Area of Debridement (cm) - Width 2.3 0.1 -Total Square (Area) (cm) 0.69 0.01 -Tunneling No No -Undermining/Tunneling No No -Circular Undermining No No -Wound/Ulcer Outcome Not Healed Not Healed Not Healed -Ulcer Cleansing Rinsed/ Rinsed/ Irrigated with Irrigated with Saline Saline -Foul Odor after Cleansing No No -Bioengineered Tissue No No -Bleeding Controlled with Pressure Pressure -Treatment Response Procedure Procedure Tolerated Well Tolerated Well -Offloading No No -Assistive Device(s) Wheelchair -Debridement - Subq, 1st 20sq cm No No #1- L DORSAL FOOT POST OP -Time 11: 11:06 10:12 -Correct Patient Yes Yes Yes -Correct Side, Site, Position Yes Yes Yes -Correct Procedure Yes Yes Yes -Procedure Performed Yes Yes Yes -Type of Procedure Debridement Debridement Debridement -Clinical Debridement Subcutaneous Subcutaneous Subcutaneous -Tissue Removed Subcutaneous Subcutaneous Subcutaneous -Post Debridement (cm) - Length 5.6 6.8 4.8 -Post Debridement (cm) - Width 4.7 4.4 2.5 -Post Debridement (cm) - Depth 0.1 0.1 0.1 -Total Square (Post) (cm) 26.32 29.92 12.00 -Area of Debridement (cm) - Length 5.6 6.8 4.8 -Area of Debridement (cm) - Width 4.7 4.4 2.5 -Total Square (Area) (cm) 26.32 29.92 12.00 -Tunneling No No No -Undermining/Tunneling No No No -Circular Undermining No No No -Wound/Ulcer Outcome Not Healed Not Healed Not Healed -Ulcer Cleansing Rinsed/ Rinsed/ Rinsed/ Irrigated with Irrigated with Irrigated with Saline Saline Saline -Foul Odor after Cleansing No No No -Bioengineered Tissue No No No -Bleeding Controlled with Pressure,Silver Pressure Pressure Nitrate -Treatment Response Procedure Procedure Procedure Tolerated Well Tolerated Well Tolerated Well -Offloading No No No -Type of Offloading -Assistive Device(s) Wheelchair Wheelchair -Debridement - Subq, 1st 20sq cm Yes Yes Yes -Debridement, SubQ, ea addt'l 20sq cm 1 1 or part thereof Pain Scale: 0-10 Numeric Is Patient Pain Free? Yes Yes Yes 03/02/22 10:14 Wound Center Nurse 2 #2- L PLANTAR FOOT POST OP -Time -Correct Patient No -Correct Side, Site, Position No -Correct Procedure No -Procedure Performed No -Type of Procedure -Clinical Debridement -Tissue Removed -Post Debridement (cm) - Length 0 -Post Debridement (cm) - Width 0 -Post Debridement (cm) - Depth 0 -Total Square (Post) (cm) 0 -Area of Debridement (cm) - Length 0 -Area of Debridement (cm) - Width 0 -Total Square (Area) (cm) 0 -Tunneling -Undermining/Tunneling -Circular Undermining -Wound/Ulcer Outcome Healed- Epithelialized -Ulcer Cleansing -Foul Odor after Cleansing -Bioengineered Tissue -Bleeding Controlled with -Treatment Response -Offloading -Assistive Device(s) -Debridement - Subq, 1st 20sq cm #1- L DORSAL FOOT POST OP -Time 10:16 -Correct Patient Yes -Correct Side, Site, Position Yes -Correct Procedure Yes -Procedure Performed Yes -Type of Procedure Debridement -Clinical Debridement Subcutaneous -Tissue Removed Subcutaneous -Post Debridement (cm) - Length 5.2 -Post Debridement (cm) - Width 2.8 -Post Debridement (cm) - Depth 0.1 -Total Square (Post) (cm) 14.56 -Area of Debridement (cm) - Length 5.2 -Area of Debridement (cm) - Width 2.8 -Total Square (Area) (cm) 14.56 -Tunneling No -Undermining/Tunneling No -Circular Undermining No -Wound/Ulcer Outcome Not Healed -Ulcer Cleansing Rinsed/ Irrigated with Saline -Foul Odor after Cleansing No -Bioengineered Tissue No -Bleeding Controlled with Pressure -Treatment Response Procedure Tolerated Well -Offloading Yes -Type of Offloading Camwalker -Assistive Device(s) -Debridement - Subq, 1st 20sq cm Yes -Debridement, SubQ, ea addt'l 20sq cm or part thereof Pain Scale: 0-10 Numeric Is Patient Pain Free? Yes WC - Nurse 3 - General Ulcer D/C NN Start: 02/09/22 10:18 Freq: Status: Active Protocol: Activity Type Activity Date Activity User E-sign Co-sign Detail Recorded Client Recorded Date Recorded By Document 02/09/22 12:19 MW [id number] 02/09/22 12:20 MW Document 02/16/22 11:21 [facility] [id number] 02/16/22 11:22 [facility] Document 02/23/22 10:22 [facility] [id number] 02/23/22 10:22 BM 02/09/22 02/16/22 02/23/22 12:19 11:21 10:22 Wound Care Nurse 3 #2- L PLANTAR FOOT POST OP -Ulcer Cleansing Rinsed/ Rinsed/ Rinsed/ Irrigated with Irrigated with Irrigated with Saline Saline Saline -Foul Odor after Cleansing No No No -Negative Pressure Wound Therapy N/A -Primary Dressing Applied Promogran C Hydrogel ($) Other Ale Matter -Other Dressing betadine -Primary Dressing Covered/Secured with Dry Gauze Dry Gauze -Other Covering abd -Promogran Ale Matter 1 #1- L DORSAL FOOT POST OP -Ulcer Cleansing Rinsed/ Rinsed/ Rinsed/ Irrigated with Irrigated with Irrigated with Saline Saline Saline -Foul Odor after Cleansing No No No -Negative Pressure Wound Therapy N/A -Primary Dressing Applied Aquacel AG 4x4 Aquacel AG 2x2 Aquacel AG 2x2 -Other Dressing ABD -Primary Dressing Covered/Secured with Dry Gauze -Other Covering abd -Aquacel AG 4x4 1 -Aquacel AG 2x2 1 1 Left -Lotion applied to leg before No Yes compression wrap -Multi-Layered Wrap Application Multi-Layer Multi-Layer Multi-Layer Comp - Left ($) Comp - Left ($) Comp - Left ($) Treatment Response Procedure Procedure Procedure Tolerated Well Tolerated Well Tolerated Well Pain Scale: 0-10 Numeric Is Patient Pain Free? Yes Yes Yes Teaching: Wound Center Dressing Your Wound -Person Taught Patient,Family -Teaching Method Discussion -Response to teaching Verbalize understanding WC - Visit Discharge Discharge Condition Stable Stable Stable Ambulatory Status Wheelchair Wheelchair Wheelchair Transportation Private Auto Private Auto Private Auto Accompanied by renee duran Medication Reconcilliation completed & No provided to patient/care provider Clinical Summary of Care Provided Yes Facility Type Home Health Home Health Assessment/Plan Assessment/Plan (1) Osteomyelitis of ankle or foot, left, acute: CODE(S): M86.172 - Other acute osteomyelitis, left ankle and foot (2) Charcot arthropathy of midfoot: CODE(S): M14.679 - Charcot's joint, unspecified ankle and foot (3) 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 muscle: CODE(S): L97.523 - 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 muscle PLAN: Patient examined evaluated, all fine discussed with patient detail. No concern for residual infection. Wounds healing significantly every week. At this time I recommend epi fix to left foot. Patient is dorsal left foot wound was excisionally debrided down to including level of tendon to the left foot. This was debrided of all nonviable tissue. Pre and postdebridement measurements document nursing notes. No anesthesia required due to neuropathy. Hemostasis obtained with light compression. Plantar left midfoot ulceration down debrided excisionally down to including level subcutaneous tissue of all nonviable tissue with a 5 mm dermal curette without incident. No anesthesia required due to neuropathy. Hemostasis obtained with light compression. Patient tolerated procedures well in apparent satisfactory condition. Recommend daily Betadine paint to plantar left foot. Continue silver alginate to dorsal midfoot with compression. Continue nonweightbearing to left lower extremity with baby aspirin for DVT prophylaxis. Elevate left lower extremity at rest above heart. Follow-up in 1 week. (4) Type 2 diabetes mellitus with diabetic polyneuropathy: CODE(S): E11.42 - Type 2 diabetes mellitus with diabetic polyneuropathy QUALIFIERS: Diabetes mellitus termite technician insulin use: without snf use Qualified Code(s): E11.42 - Type 2 diabetes mellitus with diabetic polyneuropathy
== END 2022-03-07 23:59 | disposition home or self-care (01) ==
LOC: WC 10:00
PROVIDERS: PCP Student in an Organized Health Care Education/Training Program; Visit Provider Podiatrist
DX: E11.621 Type 2 diabetes mellitus with foot ulcer (principal); A48.0 Gas gangrene; L97.523 Non-pressure chronic ulcer of other part of left foot with necrosis of muscle; M86.172 Other acute osteomyelitis, left ankle and foot; E11.59 Type 2 diabetes mellitus with other circulatory complications; E11.610 Type 2 diabetes mellitus with diabetic neuropathic arthropathy; E11.628 Type 2 diabetes mellitus with other skin complications; E11.42 Type 2 diabetes mellitus with diabetic polyneuropathy
CPT/HCPCS: 11042; 11045; 29581

== ENCOUNTER 2022-04-05 08:45 | Outpatient (RCR) | payer BC, SELFPAY ==
[2022-03-08 00:30] VITALS: BP 116/65; PULSE 81; RESP 16; TEMP 36.1; BMI 41.8
[2022-03-09 09:16] VITALS: BP 120/66; PULSE 62; TEMP 36.2; BMI 41.8
--- NOTE | 2022-03-09 09:30 | PN.PCM_ITS ---
History of Present Illness Date of Service: 03/09/22 Chief Complaint: Diabetic left foot infection with gas gangrene and osteom yelitis. History of Wound: This is a 41-year-old diabetic white male who presented with fevers, sweats, chills, malaise, and left foot swelling and redness, and found to have a diabetic left foot infection on November 14, 2021. Patient is infection is resolved after 2 incisions and drainage with 6 weeks of IV antibiotics per PICC line. Patient's wounds have been improving well. He is maintain nonweightbearing status denies any chest pain calf pain shortness of breath. Patient has not no constitutional symptoms at this time and no new complaints. Objective Data Objective Data Vital Signs: Vital Signs Temp Pulse Resp BP 97.2 F L 62 16 120/66 03/09/22 09:16 03/09/22 09:16 03/08/22 00:30 03/09/22 09:16 Weight: 136.078 kg Body Mass Index (BMI) 41.8 Physical Exam Narrative Patient is alert oriented to person place and time. Patient is maintaining a nonweightbearing status to his left lower extremity with a wheelchair. Vascular: Left lower extremity vascular examination deferred there is brisk capillary fill time to the lesser digits on the left side. Neurovascular status intact right lower extremity. Neurologic: Light touch protective sensation absent to bilateral feet. Dermatologic: Dorsal foot wound appears to be improving well at this time there is 100% granular base with overlying incorporating TheraSkin graft. pre and postdebridement measurements document nursing notes this was down the level of the tibialis anterior tendon. No signs of infection at this time. Plantar left midfoot wound healed at this time. Musculoskeletal: There is noted to be a plantar lateral convexity of the left foot secondary to Charcot deformity at the level of the midfoot. There is noted to be a varus deformity of the right ankle secondary to Charcot foot and multiple incision and drainages on that side. Muscular strength is intact to bilateral lower extremity compartments. Debridement Note Debridement Note Post-Debridement Measurements and Additional Note: Post-Debridement Measurements/Treatment MARY - Nurse 1 - General Ulcer Assessment Start: 03/09/22 09:16 Freq: Status: Active Protocol: GWEN Activity Type Activity Date Activity User E-sign Co-sign Detail Recorded Client Recorded Date Recorded By Document 03/09/22 09:16 ASHISH [id number] 03/09/22 09:19 MT 03/09/22 09:16 WC - Today's Visit Information Type of service Follow-up Visit (Physician/AUDIO EXPERIENCE EXPERT ) Arrival Mode Wheelchair Patient Identification Verified (Name & Yes ) Patient Requires Transmission-Based No Precautions Safety Precautions NA Height and Weight Body Mass Index (BMI) 41.8 BMI Classification Obese Vital Signs Temperature (97.8 F-99.1 F) 97.2 F L Temperature Source Temporal Pulse Rate (60-100) 62 Pulse Location Monitor Blood Pressure (90/60-120/80) 120/66 Blood Pressure Mean (mm Hg) 84 Source Monitor History Since Last Visit- (Skip if this is Patient's initial visit) Have you changed medications since your No last visit? Any new allergies or adverse reactions No Had a fall/change in ADL's that may No increase risk of falls Signs or symptoms of abuse and/or No neglect since last visit Have you been in the hospital since your No last visit? Has dressing in place as prescribed Yes Has compression in place as prescribed Yes Has offloadiing in place as prescribed N/A Experienced any changes in pain level or No management Left Footwear Removable Cast Walker/Walking Boot Right Footwear Removable Cast Walker/Walking Boot Pain Scale: 0-10 Numeric Is Patient Pain Free? Yes - Nurse 1 - General Ulcer Measurement Start: 03/09/22 09:16 Freq: Status: Active Protocol: Activity Type Activity Date Activity User E-sign Co-sign Detail Recorded Client Recorded Date Recorded By Document 03/09/22 09:16 ASHISH [id number] 03/09/22 09:19 MT 03/09/22 09:16 Wound Center Nurse 1 #1- L DORSAL FOOT POST OP -Combined with other wound No -Current Size (cm) - Length 4 -Current Size (cm) - Width 2 -Current Size (cm) - Depth 0.1 -Total Square Cm 8 -Date of Last Picture (Recall this 03/09/22 field) -Photo Taken Yes -Epithelialization None Present -Tunneling No -Undermining/Tunneling No -Circular Undermining No -Classification - Thickness Full Thickness with Exposed Support Structure -Change in Wound Grade/Stage No -Exudate Amt Medium -Exudate Type Serosanguineous -Wound Margin Distinct, Outline Attached -Granulation Amt Medium (34-66%) -Slough/Fibrin Yes -Necrosis Amt Medium (34-66%) -Necrotic Tissue Type Adherent Slough -Structure Exposed Tendon -Texture ([place]-wound Skin Appearance) Assessed, Scarring -Moisture ([place]-wound Skin Appearance) No Abnormality, Assessed -Color ([place]-wound Skin Appearance) No Abnormality, Assessed -Temperature ([place]-wound Skin No Abnormality Appearance) (Pt Warm) -Tenderness on Palpation ([place]-wound No Skin Appearance) -Ulcer Cleansing Soap and Water -Foul Odor after Cleansing No -Anesthetic Used 5% Lidocaine Gel Lower Limb Edema Present No Left Calf (cm) 33.5 Left Ankle (cm) 23 WC - Nurse 2 - General Ulcer CM Notes Start: 03/09/22 09:16 Freq: Status: Active Protocol: Activity Type Activity Date Activity User E-sign Co-sign Detail Recorded Client Recorded Date Recorded By Document 03/09/22 09:21 BRIAN [id number] 03/09/22 09:22 JF Edit Result 03/09/22 09:21 JF (1) [id number] 03/09/22 09:24 JF (1) #1- L DORSAL FOOT POST OP - Post Debridement (cm) - Length 4.1 => 4.5 - Post Debridement (cm) - Depth 0.1 => 0.2 - Total Square (Post) (cm) 8.61 => 9.45 03/09/22 09:21 Wound Center Nurse 2 #1- L DORSAL FOOT POST OP -Time 09:21 -Correct Patient Yes -Correct Side, Site, Position Yes -Correct Procedure Yes -Procedure Performed Yes -Type of Procedure Debridement -Clinical Debridement Subcutaneous -Tissue Removed Subcutaneous -Post Debridement (cm) - Length 4.5 -Post Debridement (cm) - Width 2.1 -Post Debridement (cm) - Depth 0.2 -Total Square (Post) (cm) 9.45 -Area of Debridement (cm) - Length 4.1 -Area of Debridement (cm) - Width 2.1 -Total Square (Area) (cm) 8.61 -Tunneling No -Undermining/Tunneling No -Circular Undermining No -Wound/Ulcer Outcome Not Healed -Ulcer Cleansing Rinsed/ Irrigated with Saline -Foul Odor after Cleansing No -Bioengineered Tissue No -Bleeding Controlled with Pressure -Treatment Response Procedure Tolerated Well -Offloading No -Debridement - Subq, 1st 20sq cm Yes Pain Scale: 0-10 Numeric Is Patient Pain Free? Yes Assessment/Plan Assessment/Plan (1) Osteomyelitis of ankle or foot, left, acute: CODE(S): M86.172 - Other acute osteomyelitis, left ankle and foot (2) Charcot arthropathy of midfoot: CODE(S): M14.679 - Charcot's joint, unspecified ankle and foot (3) 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 muscle: CODE(S): L97.523 - 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 muscle PLAN: Patient examined evaluated, all fine discussed with patient detail. No concern for residual infection. Wounds healing significantly every week. At this time I recommend epi fix to left foot. Patient is dorsal left foot wound was excisionally debrided down to including level of tendon to the left foot. This was debrided of all nonviable tissue. Pre and postdebridement measurements document nursing notes. No anesthesia required due to neuropathy. Hemostasis obtained with light compression. Plantar left midfoot ulceration down debrided excisionally down to including level subcutaneous tissue of all nonviable tissue with a 5 mm dermal curette w ithout incident. No anesthesia required due to neuropathy. Hemostasis obtained with light compression. Patient tolerated procedures well in apparent satisfactory condition. Recommend daily Betadine paint to plantar left foot. Continue silver alginate to dorsal midfoot with compression. Continue nonweightbearing to left lower extremity with baby aspirin for DVT prophylaxis. Elevate left lower extremity at rest above heart. Follow-up in 1 week. (4) Type 2 diabetes mellitus with diabetic polyneuropathy: CODE(S): E11.42 - Type 2 diabetes mellitus with diabetic polyneuropathy QUALIFIERS: Diabetes mellitus [facility] insulin use: without terminologist use Qualified Code(s): E11.42 - Type 2 diabetes mellitus with diabetic polyneuropathy
[2022-03-16 09:10] VITALS: BP 121/67; PULSE 81; RESP 16; TEMP 36.1; BMI 41.8
--- NOTE | 2022-03-16 09:38 | PCM.WC.PN ---
History of Present Illness Date of Service: 03/16/22 Chief Complaint: Diabetic left foot infection with gas gangrene and osteomyelitis. History of Wound: This is a 41-year-old diabetic white male who presented with fevers, sweats, chills, malaise, and left foot swelling and redness, and found to have a diabetic left foot infection on November 14, 2021. Patient is infection is resolved after 2 incisions and drainage with 6 weeks of IV antibiotics per PICC line. Patient's wounds have been improving well. He is maintain nonweightbearing status denies any chest pain calf pain shortness of breath. Patient has not no constitutional symptoms at this time and no new complaints. Objective Data Objective Data Vital Signs: Vital Signs Temp Pulse Resp BP O2 Del Method 96.9 F L 81 16 121/67 H Room Air 03/16/22 09:10 03/16/22 09:10 03/16/22 09:10 03/16/22 09:10 03/16/22 09:10 Oxygen Delivery Method Room Air Weight: 136.078 kg Body Mass Index (BMI) 41.8 Physical Exam Narrative Patient is alert oriented to person place and time. Patient is maintaining a nonweightbearing status to his left lower extremity with a wheelchair. Vascular: Left lower extremity vascular examination deferred there is brisk capillary fill time to the lesser digits on the left side. Neurovascular status intact right lower extremity. Neurologic: Light touch protective sensation absent to bilateral feet. Dermatologic: Dorsal foot wound appears to be improving well at this time there is 100% granular base. pre and postdebridement measurements document nursing notes this was down the level of the tibialis anterior tendon. No signs of infection at this time. Plantar left midfoot wound healed at this time. Musculoskeletal: There is noted to be a plantar lateral convexity of the left foot secondary to Charcot deformity at the level of the midfoot. There is noted to be a varus deformity of the right ankle secondary to Charcot foot and multiple incision and drainages on that side. Muscular strength is intact to bilateral lower extremity compartments. Debridement Note Debridement Note Post-Debridement Measurements and Additional Note: Post-Debridement Measurements/Treatment MARY - Nurse 1 - General Ulcer Assessment Start: 03/09/22 09:16 Freq: Status: Active Protocol: GWEN Activity Type Activity Date Activity User E-sign Co-sign Detail Recorded Client Recorded Date Recorded By Document 03/09/22 09:16 MI [id number] 03/09/22 09:19 AK Document 03/16/22 09:10 [facility] [id number] 03/16/22 09:17 BM 03/09/22 03/16/22 09:16 09:10 - Today's Visit Information Type of service Follow-up Visit Follow-up Visit (Physician/SALES SERVICE ASSISTANT (Physician/SALES SERVICE ASSISTANT ) ) Arrival Mode Wheelchair Wheelchair Transfer Assistance None Accompanied by DAD Patient Identification Verified (Name & Yes Yes ) Patient Requires Transmission-Based No No Precautions Safety Precautions NA Height and Weight Body Mass Index (BMI) 41.8 41.8 BMI Classification Obese Obese Vital Signs Temperature (97.8 F-99.1 F) 97.2 F L 96.9 F L Temperature Source Temporal Temporal Pulse Rate (60-100) 62 81 Pulse Location Monitor Monitor Respiratory Rate (12-18) 16 Respiratory rate source Observation Oxygen Delivery Method Room Air Blood Pressure (90/60-120/80) 120/66 121/67 H Blood Pressure Mean (mm Hg) 84 85 Source Monitor Monitor Position Sitting Blood Pressure Location Left Arm History Since Last Visit- (Skip if this is Patient's initial visit) Have you changed medications since your No No last visit? Any new allergies or adverse reactions No No Had a fall/change in ADL's that may No No increase risk of falls Signs or symptoms of abuse and/or No No neglect since last visit Have you been in the hospital since your No No last visit? Has dressing in place as prescribed Yes Yes Has compression in place as prescribed Yes Yes Has offloadiing in place as prescribed N/A N/A Experienced any changes in pain level or No No management Left Footwear Removable Cast Walker/Walking Boot Right Footwear Removable Cast Custom Shoe Walker/Walking Boot Pain Scale: 0-10 Numeric Is Patient Pain Free? Yes Yes - Nurse 1 - General Ulcer Measurement Start: 03/09/22 09:16 Freq: Status: Active Protocol: Activity Type Activity Date Activity User E-sign Co-sign Detail Recorded Client Recorded Date Recorded By Document 03/09/22 09:16 ASHISH [id number] 03/09/22 09:19 AK Document 03/16/22 09:10 [facility] [id number] 03/16/22 09:17 BMF 03/09/22 03/16/22 09:16 09:10 Wound Center Nurse 1 #1- L DORSAL FOOT POST OP -Combined with other wound No No -Current Size (cm) - Length 4 4.6 -Current Size (cm) - Width 2 2.4 -Current Size (cm) - Depth 0.1 0.1 -Total Square Cm 8 11.04 -Date of Last Picture (Recall this 03/09/22 field) -Photo Taken Yes No -Epithelialization None Present Small 1-33% -Tunneling No No -Undermining/Tunneling No No -Circular Undermining No No -Classification - Thickness Full Thickness with Exposed Support Structure -Change in Wound Grade/Stage No -Exudate Amt Medium Medium -Exudate Type Serosanguineous Serosanguineous -Wound Margin Distinct, Distinct, Outline Outline Attached Attached -Granulation Amt Medium (34-66%) Large (67-100%) -Granulation Quality Red -Slough/Fibrin Yes Yes -Necrosis Amt Medium (34-66%) Small (1-33%) -Necrotic Tissue Type Adherent Slough Adherent Slough -Structure Exposed Tendon -Texture ([place]-wound Skin Appearance) Assessed, Assessed, Scarring Scarring -Moisture ([place]-wound Skin Appearance) No Abnormality, Assessed,Dry/ Assessed Scaly -Color ([place]-wound Skin Appearance) No Abnormality, Assessed Assessed -Temperature ([place]-wound Skin No Abnormality No Abnormality Appearance) (Pt Warm) (Pt Warm) -Tenderness on Palpation ([place]-wound No No Skin Appearance) -Ulcer Cleansing Soap and Water Soap and Water -Foul Odor after Cleansing No No -Anesthetic Used 5% Lidocaine 4% Lidocaine Gel Solution Lower Limb Edema Present No Yes Left Calf (cm) 33.5 33.5 Left Ankle (cm) 23 23.8 WC - Nurse 2 - General Ulcer CM Notes Start: 03/09/22 09:16 Freq: Status: Active Protocol: Activity Type Activity Date Activity User E-sign Co-sign Detail Recorded Client Recorded Date Recorded By Document 03/09/22 09:21 BRIAN [id number] 03/09/22 09:22 JF Edit Result 03/09/22 09:21 JF (1) [id number] 03/09/22 09:24 JF Document 03/16/22 09:34 JF [id number] 03/16/22 09:35 JF Edit Result 03/16/22 09:34 JF (2) [id number] 03/16/22 09:36 JF (1) #1- L DORSAL FOOT POST OP - Post Debridement (cm) - Length 4.1 => 4.5 - Post Debridement (cm) - Depth 0.1 => 0.2 - Total Square (Post) (cm) 8.61 => 9.45 (2) #1- L DORSAL FOOT POST OP - Post Debridement (cm) - Length 4.6 => 3.4 - Post Debridement (cm) - Width 2.5 => 1.9 - Total Square (Post) (cm) 11.50 => 6.46 - Area of Debridement (cm) - Length 4.6 => 3.4 - Area of Debridement (cm) - Width 2.5 => 1.9 - Total Square (Area) (cm) 11.50 => 6.46 03/09/22 03/16/22 09:21 09:34 Wound Center Nurse 2 #1- L DORSAL FOOT POST OP -Time 09:21 09:34 -Correct Patient Yes Yes -Correct Side, Site, Position Yes Yes -Correct Procedure Yes Yes -Procedure Performed Yes Yes -Type of Procedure Debridement Debridement -Clinical Debridement Subcutaneous Subcutaneous -Tissue Removed Subcutaneous Subcutaneous -Post Debridement (cm) - Length 4.5 3.4 -Post Debridement (cm) - Width 2.1 1.9 -Post Debridement (cm) - Depth 0.2 0.1 -Total Square (Post) (cm) 9.45 6.46 -Area of Debridement (cm) - Length 4.1 3.4 -Area of Debridement (cm) - Width 2.1 1.9 -Total Square (Area) (cm) 8.61 6.46 -Tunneling No No -Undermining/Tunneling No No -Circular Undermining No No -Wound/Ulcer Outcome Not Healed Not Healed -Ulcer Cleansing Rinsed/ Rinsed/ Irrigated with Irrigated with Saline Saline -Foul Odor after Cleansing No No -Bioengineered Tissue No No -Bleeding Controlled with Pressure Pressure -Treatment Response Procedure Procedure Tolerated Well Tolerated Well -Offloading No Yes -Type of Offloading Camwalker -Debridement - Subq, 1st 20sq cm Yes Yes Pain Scale: 0-10 Numeric Is Patient Pain Free? Yes Yes - Nurse 3 - General Ulcer D/C NN Start: 03/09/22 09:16 Freq: Status: Active Protocol: Activity Type Activity Date Activity User E-sign Co-sign Detail Recorded Client Recorded Date Recorded By Document 03/09/22 09:33 [facility] [id number] 03/09/22 09:34 [facility] 03/09/22 09:33 Wound Care Nurse 3 #1- L DORSAL FOOT POST OP -Ulcer Cleansing Rinsed/ Irrigated with Saline -Foul Odor after Cleansing No -Primary Dressing Applied Aquacel AG 2x2 -Primary Dressing Covered/Secured with Other -Other Covering abd -Aquacel AG 2x2 1 Left -Multi-Layered Wrap Application Multi-Layer Comp - Left ($) Treatment Response Procedure Tolerated Well Pain Scale: 0-10 Numeric Is Patient Pain Free? Yes WC - Visit Discharge Discharge Condition Stable Ambulatory Status Wheelchair Transportation Private Auto Accompanied by dad Facility Type Home Health Assessment/Plan Assessment/Plan (1) Osteomyelitis of ankle or foot, left, acute: CODE(S): M86.172 - Other acute osteomyelitis, left ankle and foot (2) Charcot arthropathy of midfoot: CODE(S): M14.679 - Charcot's joint, unspecified ankle and foot (3) 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 muscle: CODE(S): L97.523 - 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 muscle PLAN: Patient examined evaluated, all fine discussed with patient detail. No concern for residual infection. Wounds healing significantly every week. At this time I recommend epi fix to left foot. Patient is dorsal left foot wound was excisionally debrided down to including level of tendon to the left foot. This was debrided of all nonviable tissue. Pre and postdebridement measurements document nursing notes. No anesthesia required due to neuropathy. Hemostasis obtained with light compression. Plantar left midfoot ulceration down debrided excisionally down to including level subcutaneous tissue of all nonviable tissue with a 5 mm dermal curette without incident. No anesthesia required due to neuropathy. Hemostasis obtained with light compression. Patient tolerated procedures well in apparent satisfactory condition. Recommend daily Betadine paint to plantar left foot. Continue silver alginate to dorsal midfoot with compression. Continue nonweightbearing to left lower extremity with baby aspirin for DVT prophylaxis. Elevate left lower extremity at rest above heart. Follow-up in 1 week. (4) Type 2 diabetes mellitus with diabetic polyneuropathy: CODE(S): E11.42 - Type 2 diabetes mellitus with diabetic polyneuropathy QUALIFIERS: Diabetes mellitus oil heaterman insulin use: without oil heaterman use Qualified Code(s): E11.42 - Type 2 diabetes mellitus with diabetic polyneuropathy
[2022-03-23 09:43] VITALS: BP 122/67; PULSE 83; TEMP 36.2; BMI 41.8
--- NOTE | 2022-03-23 10:08 | PCM.WC.PN ---
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 History of Wound: This is a 41-year-old diabetic white male who presented with fevers, sweats, chills, malaise, and left foot swelling and redness, and found to have a diabetic left foot infection on November 14, 2021. Patient is infection is resolved after 2 incisions and drainage with 6 weeks of IV antibiotics per PICC line. Patient's wounds have been improving well. He is maintain nonweightbearing status denies any chest pain calf pain shortness of breath. Patient has not no constitutional symptoms at this time and no new complaints. Objective Data Objective Data Vital Signs: Vital Signs Temp Pulse Resp BP O2 Del Method 97.2 F L 83 16 122/67 H Room Air 03/23/22 09:43 03/23/22 09:43 03/16/22 09:10 03/23/22 09:43 03/16/22 09:10 Oxygen Delivery Method Room Air Weight: 136.078 kg Body Mass Index (BMI) 41.8 Physical Exam Narrative Patient is alert oriented to person place and time. Patient is maintaining a nonweightbearing status to his left lower extremity with a wheelchair. Vascular: Left lower extremity vascular examination deferred there is brisk capillary fill time to the lesser digits on the left side. Neurovascular status intact right lower extremity. Neurologic: Light touch protective sensation absent to bilateral feet. Dermatologic: Dorsal foot wound appears to be improving well at this time there is 100% granular base. pre and postdebridement measurements document nursing notes this was down the level of the tibialis anterior tendon. No signs of infection at this time. Plantar left midfoot wound healed at this time. Musculoskeletal: There is noted to be a plantar lateral convexity of the left foot secondary to Charcot deformity at the level of the midfoot. There is noted to be a varus deformity of the right ankle secondary to Charcot foot and multiple incision and drainages on that side. Muscular strength is intact to bilateral lower extremity compartments. Debridement Note Debridement Note Post-Debridement Measurements and Additional Note: Post-Debridement Measurements/Treatment MARY - Nurse 1 - General Ulcer Assessment Start: 03/09/22 09:16 Freq: Status: Active Protocol: GWEN Activity Type Activity Date Activity User E-sign Co-sign Detail Recorded Client Recorded Date Recorded By Document 03/09/22 09:16 [place] [id number] 03/09/22 09:19 [place] Document 03/16/22 09:10 [facility] [id number] 03/16/22 09:17 [facility] Document 03/23/22 09:43 [place] [id number] 03/23/22 09:52 [place] 03/09/22 03/16/22 03/23/22 09:16 09:10 09:43 WC - Today's Visit Information Type of service Follow-up Visit Follow-up Visit Follow-up Visit (Physician/DECORATIVE ENGRAVER APPRENTICE (Physician/DECORATIVE ENGRAVER APPRENTICE (Physician/DECORATIVE ENGRAVER APPRENTICE ) ) ) Arrival Mode Wheelchair Wheelchair Wheelchair Transfer Assistance None Accompanied by DAD Patient Identification Verified (Name & Yes Yes Yes ) Patient Requires Transmission-Based No No No Precautions Safety Precautions NA NA Height and Weight Body Mass Index (BMI) 41.8 41.8 41.8 BMI Classification Obese Obese Obese Vital Signs Temperature (97.8 F-99.1 F) 97.2 F L 96.9 F L 97.2 F L Temperature Source Temporal Temporal Temporal Pulse Rate (60-100) 62 81 83 Pulse Location Monitor Monitor Monitor Respiratory Rate (12-18) 16 Respiratory rate source Observation Oxygen Delivery Method Room Air Blood Pressure (90/60-120/80) 120/66 121/67 H 122/67 H Blood Pressure Mean (mm Hg) 84 85 85 Source Monitor Monitor Monitor Position Sitting Blood Pressure Location Left Arm History Since Last Visit- (Skip if this is Patient's initial visit) Have you changed medications since your No No No last visit? Any new allergies or adverse reactions No No No Had a fall/change in ADL's that may No No No increase risk of falls Signs or symptoms of abuse and/or No No No neglect since last visit Have you been in the hospital since your No No No last visit? Has dressing in place as prescribed Yes Yes Yes Has compression in place as prescribed Yes Yes Yes Has offloadiing in place as prescribed N/A N/A Yes Experienced any changes in pain level or No No No management Left Footwear Removable Cast Removable Cast Walker/Walking Walker/Walking Boot Boot Right Footwear Removable Cast Custom Shoe Walker/Walking Boot Pain Scale: 0-10 Numeric Is Patient Pain Free? Yes Yes Yes - Nurse 1 - General Ulcer Measurement Start: 03/09/22 09:16 Freq: Status: Active Protocol: Activity Type Activity Date Activity User E-sign Co-sign Detail Recorded Client Recorded Date Recorded By Document 03/09/22 09:16 [place] [id number] 03/09/22 09:19 [place] Document 03/16/22 09:10 [facility] [id number] 03/16/22 09:17 [facility] Document 03/23/22 09:43 [place] [id number] 03/23/22 09:52 [place] 03/09/22 03/16/22 03/23/22 09:16 09:10 09:43 Wound Center Nurse 1 #1- L DORSAL FOOT POST OP -Combined with other wound No No No -Current Size (cm) - Length 4 4.6 2.7 -Current Size (cm) - Width 2 2.4 1.8 -Current Size (cm) - Depth 0.1 0.1 0.1 -Total Square Cm 8 11.04 4.86 -Date of Last Picture (Recall this 03/09/22 field) -Photo Taken Yes No No -Epithelialization None Present Small 1-33% -Tunneling No No No -Undermining/Tunneling No No No -Circular Undermining No No No -Classification - Thickness Full Thickness with Exposed Support Structure -Change in Wound Grade/Stage No No -Exudate Amt Medium Medium -Exudate Type Serosanguineous Serosanguineous -Wound Margin Distinct, Distinct, Distinct, Outline Outline Outline Attached Attached Attached -Granulation Amt Medium (34-66%) Large (67-100%) Large (67-100%) -Granulation Quality Red N/A,Red -Slough/Fibrin Yes Yes Yes -Necrosis Amt Medium (34-66%) Small (1-33%) Small (1-33%) -Necrotic Tissue Type Adherent Slough Adherent Slough Adherent Slough -Structure Exposed Tendon N/A -Texture ([place]-wound Skin Appearance) Assessed, Assessed, No Abnormality, Scarring Scarring Assessed -Moisture ([place]-wound Skin Appearance) No Abnormality, Assessed,Dry/ No Abnormality, Assessed Scaly Assessed -Color ([place]-wound Skin Appearance) No Abnormality, Assessed No Abnormality, Assessed Assessed -Temperature ([place]-wound Skin No Abnormality No Abnormality No Abnormality Appearance) (Pt Warm) (Pt Warm) (Pt Warm) -Tenderness on Palpation ([place]-wound No No No Skin Appearance) -Ulcer Cleansing Soap and Water Soap and Water Soap and Water -Foul Odor after Cleansing No No No -Anesthetic Used 5% Lidocaine 4% Lidocaine 5% Lidocaine Gel Solution Gel Lower Limb Edema Present No Yes Left Calf (cm) 33.5 33.5 35 Left Ankle (cm) 23 23.8 23.2 WC - Nurse 2 - General Ulcer CM Notes Start: 03/09/22 09:16 Freq: Status: Active Protocol: Activity Type Activity Date Activity User E-sign Co-sign Detail Recorded Client Recorded Date Recorded By Document 03/09/22 09:21 BRIAN [id number] 03/09/22 09:22 JF Edit Result 03/09/22 09:21 JF (1) [id number] 03/09/22 09:24 JF Document 03/16/22 09:34 JF [id number] 03/16/22 09:35 JF Edit Result 03/16/22 09:34 JF (2) [id number] 03/16/22 09:36 JF (1) #1- L DORSAL FOOT POST OP - Post Debridement (cm) - Length 4.1 => 4.5 - Post Debridement (cm) - Depth 0.1 => 0.2 - Total Square (Post) (cm) 8.61 => 9.45 (2) #1- L DORSAL FOOT POST OP - Post Debridement (cm) - Length 4.6 => 3.4 - Post Debridement (cm) - Width 2.5 => 1.9 - Total Square (Post) (cm) 11.50 => 6.46 - Area of Debridement (cm) - Length 4.6 => 3.4 - Area of Debridement (cm) - Width 2.5 => 1.9 - Total Square (Area) (cm) 11.50 => 6.46 03/09/22 03/16/22 09:21 09:34 Wound Center Nurse 2 #1- L DORSAL FOOT POST OP -Time 09: 09:34 -Correct Patient Yes Yes -Correct Side, Site, Position Yes Yes -Correct Procedure Yes Yes -Procedure Performed Yes Yes -Type of Procedure Debridement Debridement -Clinical Debridement Subcutaneous Subcutaneous -Tissue Removed Subcutaneous Subcutaneous -Post Debridement (cm) - Length 4.5 3.4 -Post Debridement (cm) - Width 2.1 1.9 -Post Debridement (cm) - Depth 0.2 0.1 -Total Square (Post) (cm) 9.45 6.46 -Area of Debridement (cm) - Length 4.1 3.4 -Area of Debridement (cm) - Width 2.1 1.9 -Total Square (Area) (cm) 8.61 6.46 -Tunneling No No -Undermining/Tunneling No No -Circular Undermining No No -Wound/Ulcer Outcome Not Healed Not Healed -Ulcer Cleansing Rinsed/ Rinsed/ Irrigated with Irrigated with Saline Saline -Foul Odor after Cleansing No No -Bioengineered Tissue No No -Bleeding Controlled with Pressure Pressure -Treatment Response Procedure Procedure Tolerated Well Tolerated Well -Offloading No Yes -Type of Offloading Camwalker -Debridement - Subq, 1st 20sq cm Yes Yes Pain Scale: 0-10 Numeric Is Patient Pain Free? Yes Yes - Nurse 3 - General Ulcer D/C NN Start: 03/09/22 09:16 Freq: Status: Active Protocol: Activity Type Activity Date Activity User E-sign Co-sign Detail Recorded Client Recorded Date Recorded By Document 03/09/22 09:33 [facility] [id number] 03/09/22 09:34 [facility] Document 03/16/22 09:48 [facility] [id number] 03/16/22 09:49 [facility] 03/09/22 03/16/22 09:33 09:48 Wound Care Nurse 3 #1- L DORSAL FOOT POST OP -Ulcer Cleansing Rinsed/ Rinsed/ Irrigated with Irrigated with Saline Saline -Foul Odor after Cleansing No No -Primary Dressing Applied Aquacel AG 2x2 Aquacel AG 2x2 -Primary Dressing Covered/Secured with Other -Other Covering abd ABD -Aquacel AG 2x2 1 1 Left -Lotion applied to leg before Yes compression wrap -Multi-Layered Wrap Application Multi-Layer Multi-Layer Comp - Left ($) Comp - Left ($) Treatment Response Procedure Procedure Tolerated Well Tolerated Well Pain Scale: 0-10 Numeric Is Patient Pain Free? Yes Yes - Visit Discharge Discharge Condition Stable Stable Ambulatory Status Wheelchair Wheelchair Transportation Private Auto Private Auto Accompanied by dad DAD Facility Type Home Health Assessment/Plan Assessment/Plan (1) Osteomyelitis of ankle or foot, left, acute: CODE(S): M86.172 - Other acute osteomyelitis, left ankle and foot (2) Charcot arthropathy of midfoot: CODE(S): M14.679 - Charcot's joint, unspecified ankle and foot (3) 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 muscle: CODE(S): L97.523 - 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 muscle PLAN: Patient examined evaluated, all fine discussed with patient detail. No concern for residual infection. Wounds healing significantly every week. Patient is dorsal left foot wound was excisionally debrided down to including level of tendon to the left foot. This was debrided of all nonviable tissue. Pre and postdebridement measurements document nursing notes. No anesthesia required due to neuropathy. Hemostasis obtained with light compression. patient tolerated procedure well. A 2 x 2 centimeter epi fix graft was applied to the dorsal left midfoot ulceration. All graft was used no waste. Graft was secured with overlying wound veil and Steri-Strips quarter-inch. Overlying 3M compression wrap applied. Billing units 4. Continue nonweightbearing to left lower extremity with baby aspirin for DVT prophylaxis. Elevate left lower extremity at rest above heart. Follow-up in 1 week. 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
[2022-03-30 09:57] VITALS: BP 105/67; PULSE 90; RESP 16; TEMP 36.3; BMI 41.8
--- NOTE | 2022-03-30 12:21 | PCM.WC.PN ---
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 History of Wound: This is a 41-year-old diabetic white male who presented with fevers, sweats, chills, malaise, and left foot swelling and redness, and found to have a diabetic left foot infection on November 14, 2021. Patient is infection is resolved after 2 incisions and drainage with 6 weeks of IV antibiotics per PICC line. Patient's wounds have been improving well. He is maintain nonweightbearing status denies any chest pain calf pain shortness of breath. Patient has not no constitutional symptoms at this time and no new complaints. Objective Data Objective Data Vital Signs: Vital Signs Temp Pulse Resp BP O2 Del Method 97.4 F L 90 16 105/67 Room Air 03/30/22 09:57 03/30/22 09:57 03/30/22 09:57 03/30/22 09:57 03/30/22 09:57 Oxygen Delivery Method Room Air Weight: 136.078 kg Body Mass Index (BMI) 41.8 Physical Exam Narrative Patient is alert oriented to person place and time. Patient is maintaining a nonweightbearing status to his left lower extremity with a wheelchair. Vascular: Left lower extremity vascular examination deferred there is brisk capillary fill time to the lesser digits on the left side. Neurovascular status intact right lower extremity. Neurologic: Light touch protective sensation absent to bilateral feet. Dermatologic: Dorsal foot wound appears to be improving well at this time there is 100% granular base. pre and postdebridement measurements document nursing notes this was down the level of the tibialis anterior tendon. No signs of infection at this time. Plantar left midfoot wound healed at this time. Musculoskeletal: There is noted to be a plantar lateral convexity of the left foot secondary to Charcot deformity at the level of the midfoot. There is noted to be a varus deformity of the right ankle secondary to Charcot foot and multiple incision and drainages on that side. Muscular strength is intact to bilateral lower extremity compartments. Debridement Note Debridement Note Post-Debridement Measurements and Additional Note: Post-Debridement Measurements/Treatment MARY - Nurse 1 - General Ulcer Assessment Start: 03/09/22 09:16 Freq: Status: Active Protocol: GWEN Activity Type Activity Date Activity User E-sign Co-sign Detail Recorded Client Recorded Date Recorded By Document 03/09/22 09:16 [place] [id number] 03/09/22 09:19 [place] Document 03/16/22 09:10 [facility] [id number] 03/16/22 09:17 [facility] Document 03/23/22 09:43 AK [id number] 03/23/22 09:52 AK Document 03/30/22 09:57 [id number] 03/30/22 10:08 MW 03/09/22 03/16/22 03/23/22 09:16 09:10 09:43 - Today's Visit Information Type of service Follow-up Visit Follow-up Visit Follow-up Visit (Physician/PROBATE CLERK (Physician/PROBATE CLERK (Physician/PROBATE CLERK ) ) ) Arrival Mode Wheelchair Wheelchair Wheelchair Transfer Assistance None Accompanied by DAD Patient Identification Verified (Name & Yes Yes Yes ) Patient Requires Transmission-Based No No No Precautions Safety Precautions NA NA Finger Stick Blood Sugar(mg/dl) (if indicated): Blood Sugar Height and Weight Body Mass Index (BMI) 41.8 41.8 41.8 BMI Classification Obese Obese Obese Vital Signs Temperature (97.8 F-99.1 F) 97.2 F L 96.9 F L 97.2 F L Temperature Source Temporal Temporal Temporal Pulse Rate (60-100) 62 81 83 Pulse Location Monitor Monitor Monitor Respiratory Rate (12-18) 16 Respiratory rate source Observation Oxygen Delivery Method Room Air Blood Pressure (90/60-120/80) 120/66 121/67 H 122/67 H Blood Pressure Mean (mm Hg) 84 85 85 Source Monitor Monitor Monitor Position Sitting Blood Pressure Location Left Arm History Since Last Visit- (Skip if this is Patient's initial visit) Have you changed medications since your No No No last visit? Any new allergies or adverse reactions No No No Had a fall/change in ADL's that may No No No increase risk of falls Signs or symptoms of abuse and/or No No No neglect since last visit Have you been in the hospital since your No No No last visit? Has dressing in place as prescribed Yes Yes Yes Has compression in place as prescribed Yes Yes Yes Has offloadiing in place as prescribed N/A N/A Yes Experienced any changes in pain level or No No No management Left Footwear Removable Cast Removable Cast Walker/Walking Walker/Walking Boot Boot Right Footwear Removable Cast Custom Shoe Walker/Walking Boot Pain Scale: 0-10 Numeric Is Patient Pain Free? Yes Yes Yes 03/30/22 09:57 - Today's Visit Information Type of service Follow-up Visit (Physician/PROBATE CLERK ) Arrival Mode Wheelchair Transfer Assistance None Accompanied by dad Patient Identification Verified (Name & Yes ) Patient Requires Transmission-Based No Precautions Safety Precautions Finger Stick Blood Sugar(mg/dl) (if 103 indicated): Blood Sugar Stated by Patient Height and Weight Body Mass Index (BMI) 41.8 BMI Classification Obese Vital Signs Temperature (97.8 F-99.1 F) 97.4 F L Temperature Source Temporal Pulse Rate (60-100) 90 Pulse Location Monitor Respiratory Rate (12-18) 16 Respiratory rate source Observation Oxygen Delivery Method Room Air Blood Pressure (90/60-120/80) 105/67 Blood Pressure Mean (mm Hg) 79 Source Monitor Position Sitting Blood Pressure Location Left Arm History Since Last Visit- (Skip if this is Patient's initial visit) Have you changed medications since your No last visit? Any new allergies or adverse reactions No Had a fall/change in ADL's that may No increase risk of falls Signs or symptoms of abuse and/or No neglect since last visit Have you been in the hospital since your No last visit? Has dressing in place as prescribed Yes Has compression in place as prescribed Yes Has offloadiing in place as prescribed N/A Experienced any changes in pain level or No management Left Footwear No Footwear Right Footwear Removable Cast Walker/Walking Boot Pain Scale: 0-10 Numeric Is Patient Pain Free? Yes - Nurse 1 - General Ulcer Measurement Start: 03/09/22 09:16 Freq: Status: Active Protocol: Activity Type Activity Date Activity User E-sign Co-sign Detail Recorded Client Recorded Date Recorded By Document 03/09/22 09:16 AK [id number] 03/09/22 09:19 AK Document 03/16/22 09:10 [facility] [id number] 03/16/22 09:17 [facility] Document 03/23/22 09:43 [place] [id number] 03/23/22 09:52 AK Document 03/30/22 09:57 MW [id number] 03/30/22 10:08 MW 03/09/22 03/16/22 03/23/22 09:16 09:10 09:43 Wound Center Nurse 1 #1- L DORSAL FOOT POST OP -Combined with other wound No No No -Current Size (cm) - Length 4 4.6 2.7 -Current Size (cm) - Width 2 2.4 1.8 -Current Size (cm) - Depth 0.1 0.1 0.1 -Total Square Cm 8 11.04 4.86 -Date of Last Picture (Recall this 03/09/22 field) -Photo Taken Yes No No -Epithelialization None Present Small 1-33% -Tunneling No No No -Undermining/Tunneling No No No -Circular Undermining No No No -Classification - Thickness Full Thickness with Exposed Support Structure -Change in Wound Grade/Stage No No -Exudate Amt Medium Medium -Exudate Type Serosanguineous Serosanguineous -Wound Margin Distinct, Distinct, Distinct, Outline Outline Outline Attached Attached Attached -Granulation Amt Medium (34-66%) Large (67-100%) Large (67-100%) -Granulation Quality Red N/A,Red -Slough/Fibrin Yes Yes Yes -Necrosis Amt Medium (34-66%) Small (1-33%) Small (1-33%) -Necrotic Tissue Type Adherent Slough Adherent Slough Adherent Slough -Structure Exposed Tendon N/A -Texture ([place]-wound Skin Appearance) Assessed, Assessed, No Abnormality, Scarring Scarring Assessed -Moisture ([place]-wound Skin Appearance) No Abnormality, Assessed,Dry/ No Abnormality, Assessed Scaly Assessed -Color ([place]-wound Skin Appearance) No Abnormality, Assessed No Abnormality, Assessed Assessed -Temperature ([place]-wound Skin No Abnormality No Abnormality No Abnormality Appearance) (Pt Warm) (Pt Warm) (Pt Warm) -Tenderness on Palpation ([place]-wound No No No Skin Appearance) -Ulcer Cleansing Soap and Water Soap and Water Soap and Water -Foul Odor after Cleansing No No No -Anesthetic Used 5% Lidocaine 4% Lidocaine 5% Lidocaine Gel Solution Gel Lower Limb Edema Present No Yes Left Calf (cm) 33.5 33.5 35 Left Ankle (cm) 23 23.8 23.2 03/30/22 09:57 Wound Center Nurse 1 #1- L DORSAL FOOT POST OP -Combined with other wound No -Current Size (cm) - Length 1.5 -Current Size (cm) - Width 0.7 -Current Size (cm) - Depth 0.1 -Total Square Cm 1.05 -Date of Last Picture (Recall this 03/30/22 field) -Photo Taken Yes -Epithelialization Small 1-33% -Tunneling No -Undermining/Tunneling No -Circular Undermining No -Classification - Thickness -Change in Wound Grade/Stage -Exudate Amt Medium -Exudate Type Serosanguineous -Wound Margin Flat & Intact -Granulation Amt Large (67-100%) -Granulation Quality [place] -Slough/Fibrin Yes -Necrosis Amt Small (1-33%) -Necrotic Tissue Type Adherent Slough -Structure Exposed N/A -Texture ([place]-wound Skin Appearance) Assessed, Localized Edema ,Scarring -Moisture ([place]-wound Skin Appearance) Assessed,Dry/ Scaly -Color ([place]-wound Skin Appearance) No Abnormality, Assessed -Temperature ([place]-wound Skin No Abnormality Appearance) (Pt Warm) -Tenderness on Palpation ([place]-wound No Skin Appearance) -Ulcer Cleansing Soap and Water -Foul Odor after Cleansing No -Anesthetic Used 5% Lidocaine Gel Lower Limb Edema Present Yes Left Calf (cm) 32.5 Left Ankle (cm) 24.0 WC - Nurse 2 - General Ulcer CM Notes Start: 03/09/22 09:16 Freq: Status: Active Protocol: Activity Type Activity Date Activity User E-sign Co-sign Detail Recorded Client Recorded Date Recorded By Document 03/09/22 09:21 [id number] 03/09/22 09:22 Edit Result 03/09/22 09:21 JF (1) [id number] 03/09/22 09:24 Document 03/16/22 09:34 [id number] 03/16/22 09:35 Edit Result 03/16/22 09:34 BRIAN (2) [id number] 03/16/22 09:36 Document 03/23/22 10:01 BRIAN [id number] 03/23/22 10:08 Document 03/30/22 10:23 BRIAN [id number] 03/30/22 10:30 JF (1) #1- L DORSAL FOOT POST OP - Post Debridement (cm) - Length 4.1 => 4.5 - Post Debridement (cm) - Depth 0.1 => 0.2 - Total Square (Post) (cm) 8.61 => 9.45 (2) #1- L DORSAL FOOT POST OP - Post Debridement (cm) - Length 4.6 => 3.4 - Post Debridement (cm) - Width 2.5 => 1.9 - Total Square (Post) (cm) 11.50 => 6.46 - Area of Debridement (cm) - Length 4.6 => 3.4 - Area of Debridement (cm) - Width 2.5 => 1.9 - Total Square (Area) (cm) 11.50 => 6.46 03/09/22 08 08 09:21 09:34 10:01 Wound Center Nurse 2 #1- L DORSAL FOOT POST OP -Time 09:21 09:34 10:07 -Correct Patient Yes Yes Yes -Correct Side, Site, Position Yes Yes Yes -Correct Procedure Yes Yes Yes -Procedure Performed Yes Yes Yes -Type of Procedure Debridement Debridement Debridement -Clinical Debridement Subcutaneous Subcutaneous Subcutaneous -Tissue Removed Subcutaneous Subcutaneous Subcutaneous -Post Debridement (cm) - Length 4.5 3.4 2.0 -Post Debridement (cm) - Width 2.1 1.9 1.8 -Post Debridement (cm) - Depth 0.2 0.1 0.1 -Total Square (Post) (cm) 9.45 6.46 3.60 -Area of Debridement (cm) - Length 4.1 3.4 2.0 -Area of Debridement (cm) - Width 2.1 1.9 1.8 -Total Square (Area) (cm) 8.61 6.46 3.60 -Tunneling No No No -Undermining/Tunneling No No No -Circular Undermining No No No -Wound/Ulcer Outcome Not Healed Not Healed Not Healed -Ulcer Cleansing Rinsed/ Rinsed/ Rinsed/ Irrigated with Irrigated with Irrigated with Saline Saline Saline -Foul Odor after Cleansing No No No -Bioengineered Tissue No No Yes -Type of Bioengineered Tissue Epifix -Expiration Date 12/06/26 -Product Lot Number [id number] -Percent Used 100 -Lot number of Saline Used [id number] -Bleeding Controlled with Pressure Pressure Pressure -Treatment Response Procedure Procedure Procedure Tolerated Well Tolerated Well Tolerated Well -Offloading No Yes Yes -Type of Offloading Camwalker Camwalker -Assistive Device(s) Wheelchair -Debridement - Subq, 1st 20sq cm Yes Yes No -Apply Skin Sub - 1st 25 sq cm - Feet 1 -Epifix (per sq cm) 4 Pain Scale: 0-10 Numeric Is Patient Pain Free? Yes Yes Yes 03/30/22 10:23 Wound Center Nurse 2 #1- L DORSAL FOOT POST OP -Time 10:28 -Correct Patient Yes -Correct Side, Site, Position Yes -Correct Procedure Yes -Procedure Performed Yes -Type of Procedure Debridement -Clinical Debridement Subcutaneous -Tissue Removed Subcutaneous -Post Debridement (cm) - Length 1.5 -Post Debridement (cm) - Width 0.8 -Post Debridement (cm) - Depth 0.1 -Total Square (Post) (cm) 1.20 -Area of Debridement (cm) - Length 1.5 -Area of Debridement (cm) - Width 0.8 -Total Square (Area) (cm) 1.20 -Tunneling No -Undermining/Tunneling No -Circular Undermining No -Wound/Ulcer Outcome Not Healed -Ulcer Cleansing Rinsed/ Irrigated with Saline -Foul Odor after Cleansing No -Bioengineered Tissue Yes -Type of Bioengineered Tissue Epifix -Expiration Date 01/06/27 -Product Lot Number [id number] -Percent Used 100 -Lot number of Saline Used [id number] -Bleeding Controlled with Pressure -Treatment Response Procedure Tolerated Well -Offloading Yes -Type of Offloading Camwalker -Assistive Device(s) -Debridement - Subq, 1st 20sq cm No -Apply Skin Sub - 1st 25 sq cm - Feet 1 -Epifix (per sq cm) 4 Pain Scale: 0-10 Numeric Is Patient Pain Free? Yes - Nurse 3 - General Ulcer D/C NN Start: 03/09/22 09:16 Freq: Status: Active Protocol: Activity Type Activity Date Activity User E-sign Co-sign Detail Recorded Client Recorded Date Recorded By Document 03/09/22 09:33 [facility] [id number] 03/09/22 09:34 [facility] Document 03/16/22 09:48 [facility] [id number] 03/16/22 09:49 BM Document 03/23/22 10:10 BMF [id number] 03/23/22 10:11 BMF Document 03/30/22 10:43 MW [id number] 03/30/22 10:44 MW 03/09/22 03/16/22 03/23/22 09:33 09:48 10:10 Wound Care Nurse 3 #1- L DORSAL FOOT POST OP -Ulcer Cleansing Rinsed/ Rinsed/ Irrigated with Irrigated with Saline Saline -Foul Odor after Cleansing No No -Negative Pressure Wound Therapy -Primary Dressing Applied Aquacel AG 2x2 Aquacel AG 2x2 -Other Dressing epifix, abd -Primary Dressing Covered/Secured with Other -Other Covering abd ABD drsg per ak operations research scientist -Aquacel AG 2x2 1 1 Left -Lotion applied to leg before Yes compression wrap -Multi-Layered Wrap Application Multi-Layer Multi-Layer Multi-Layer Comp - Left ($) Comp - Left ($) Comp - Left ($) -Other 3m per ak operations research scientist Treatment Response Procedure Procedure Procedure Tolerated Well Tolerated Well Tolerated Well Pain Scale: 0-10 Numeric Is Patient Pain Free? Yes Yes Yes Teaching: Wound Center Compression Wraps & Stockings -Person Taught -Teaching Method -Response to teaching WC - Visit Discharge Discharge Condition Stable Stable Stable Ambulatory Status Wheelchair Wheelchair Wheelchair Transportation Private Auto Private Auto Private Auto Accompanied by dad DE duran Medication Reconcilliation completed & provided to patient/care provider Clinical Summary of Care Provided Facility Type Home Health Home Health 03/30/22 10:43 Wound Care Nurse 3 #1- L DORSAL FOOT POST OP -Ulcer Cleansing Not Cleansed -Foul Odor after Cleansing No -Negative Pressure Wound Therapy N/A -Primary Dressing Applied -Other Dressing ABD -Primary Dressing Covered/Secured with -Other Covering -Aquacel AG 2x2 Left -Lotion applied to leg before Yes compression wrap -Multi-Layered Wrap Application Multi-Layer Comp - Left ($) -Other Treatment Response Procedure Tolerated Well Pain Scale: 0-10 Numeric Is Patient Pain Free? Yes Teaching: Wound Center Compression Wraps & Stockings -Person Taught Patient,Family -Teaching Method Discussion, Demonstration -Response to teaching Verbalize understanding WC - Visit Discharge Discharge Condition Stable Ambulatory Status Wheelchair Transportation Private Auto Accompanied by dad Medication Reconcilliation completed & No provided to patient/care provider Clinical Summary of Care Provided Yes Facility Type Assessment/Plan Assessment/Plan (1) Osteomyelitis of ankle or foot, left, acute: CODE(S): M86.172 - Other acute osteomyelitis, left ankle and foot (2) Charcot arthropathy of midfoot: CODE(S): M14.679 - Charcot's joint, unspecified ankle and foot (3) 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 muscle: CODE(S): L97.523 - 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 muscle PLAN: Patient examined evaluated, all fine discussed with patient detail. No concern for residual infection. Wounds healing significantly every week. Patient is dorsal left foot wound was excisionally debrided down to including level of tendon to the left foot. This was debrided of all nonviable tissue. Pre and postdebridement measurements document nursing notes. No anesthesia required due to neuropathy. Hemostasis obtained with light compression. patient tolerated procedure well. A 2 x 2 centimeter epi fix graft was applied to the dorsal left midfoot ulceration. All graft was used no waste. Graft was secured with overlying wound veil and Steri-Strips quarter-inch. Overlying 3M compression wrap applied. Billing units 4. Continue nonweightbearing to left lower extremity with baby aspirin for DVT prophylaxis. Elevate left lower extremity at rest above heart. Follow-up in 1 week. Wound is nearly healed at this time. (4) Type 2 diabetes mellitus with diabetic polyneuropathy: CODE(S): E11.42 - Type 2 diabetes mellitus with diabetic polyneuropathy QUALIFIERS: Diabetes mellitus long term care administrator insulin use: without long term care administrator use Qualified Code(s): E11.42 - Type 2 diabetes mellitus with diabetic polyneuropathy
[2022-04-05 08:16] VITALS: BP 116/61; PULSE 81; TEMP 36.4; BMI 41.8
--- NOTE | 2022-04-05 09:00 | PCM.WC.PN ---
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 History of Wound: This is a 42-year-old diabetic white male who presented with fevers, sweats, chills, malaise, and left foot swelling and redness, and found to have a diabetic left foot infection on November 14, 2021. Patient is infection is resolved after 2 incisions and drainage with 6 weeks of IV antibiotics per PICC line. Patient's wounds have been improving well. He is maintain nonweightbearing status denies any chest pain calf pain shortness of breath. Patient has not no constitutional symptoms at this time and no new complaints. Progress of Wound: This is a courtesy visit for Dr. Perkins. Left dorsal foot ulcer is improved. There is a thick layer of scabbing/epifix over the ulcer. It appears that the epifix became too dry. Objective Data Objective Data Vital Signs: Vital Signs Temp Pulse Resp BP O2 Del Method 97.5 F L 81 16 116/61 Room Air 04/05/22 08:16 04/05/22 08:16 03/30/22 09:57 04/05/22 08:16 03/30/22 09:57 Oxygen Delivery Method Room Air Weight: 300 lb Body Mass Index (BMI) 41.8 Charges/Coding Procedures Integumentary 150xxx-152xx: 13448 Skin sub graft face/nk/hf/g Physical Exam Const alert and oriented x3 HEENT normocephalic Resp normal respiratory effort Effort and Inspection: able to speak in complete sentences Cardio regular rate Extremity normal capillary refill General Extremity: edema left lower extremity mild Skin Skin Narrative: Plantar surface of left foot with large plaques of dry skin. Wound Narrative: Left dorsal foot ulcer is superficial cluster that the ulcer bed is pink. No odor. Neuro CN's II-XII intact bilaterally Psych affect normal Debridement Note Debridement Note Wound debrided: dorsal foot ulcer Laterality: Left Type of Debridement: Excisional debridement Anesthesia Used: 5% Lidocaine Gel Depth: Down to and including healthy tissue and in the subcutaneous layer Percentage of wound debrided: 100 Instrument Used: 3mm curette Tissue Removed: Devitalized tissue and slough Severity: Fat Layer Exposed Amount of bleeding with debridement: Mild Bleeding Controlled with: Compression and gauze Patient tolerated procedure: Patient tolerated procedure well Post-Debridement Measurements and Additional Note: Post-Debridement Measurements/Treatment WC - Nurse 1 - General Ulcer Assessment Start: 03/09/22 09:16 Freq: Status: Active Protocol: GWEN Activity Type Activity Date Activity User E-sign Co-sign Detail Recorded Client Recorded Date Recorded By Document 03/09/22 09:16 AK [id number] 03/09/22 09:19 AK Document 03/16/22 09:10 [facility] [id number] 03/16/22 09:17 BM Document 03/23/22 09:43 AK [id number] 03/23/22 09:52 AK Document 03/30/22 09:57 MW [id number] 03/30/22 10:08 MW Document 04/05/22 08:16 KR [id number] 04/05/22 08:21 KR 03/09/22 03/16/22 03/23/22 09:16 09:10 09:43 WC - Today's Visit Information Type of service Follow-up Visit Follow-up Visit Follow-up Visit (Physician/ANESTHESIOLOGY TEACHER (Physician/ANESTHESIOLOGY TEACHER (Physician/ANESTHESIOLOGY TEACHER ) ) ) Arrival Mode Wheelchair Wheelchair Wheelchair Transfer Assistance None Accompanied by DAD Patient Identification Verified (Name & Yes Yes Yes ) Patient Requires Transmission-Based No No No Precautions Safety Precautions NA NA Finger Stick Blood Sugar(mg/dl) (if indicated): Blood Sugar Height and Weight Body Mass Index (BMI) 41.8 41.8 41.8 BMI Classification Obese Obese Obese Vital Signs Temperature (97.8 F-99.1 F) 97.2 F L 96.9 F L 97.2 F L Temperature Source Temporal Temporal Temporal Pulse Rate (60-100) 62 81 83 Pulse Location Monitor Monitor Monitor Respiratory Rate (12-18) 16 Respiratory rate source Observation Oxygen Delivery Method Room Air Blood Pressure (90/60-120/80) 120/66 121/67 H 122/67 H Blood Pressure Mean (mm Hg) 84 85 85 Source Monitor Monitor Monitor Position Sitting Blood Pressure Location Left Arm History Since Last Visit- (Skip if this is Patient's initial visit) Have you changed medications since your No No No last visit? Any new allergies or adverse reactions No No No Had a fall/change in ADL's that may No No No increase risk of falls Signs or symptoms of abuse and/or No No No neglect since last visit Have you been in the hospital since your No No No last visit? Has dressing in place as prescribed Yes Yes Yes Has compression in place as prescribed Yes Yes Yes Has offloadiing in place as prescribed N/A N/A Yes Experienced any changes in pain level or No No No management Left Footwear Removable Cast Removable Cast Walker/Walking Walker/Walking Boot Boot Right Footwear Removable Cast Custom Shoe Walker/Walking Boot Pain Scale: 0-10 Numeric Is Patient Pain Free? Yes Yes Yes 03/30/22 04/05/22 09:57 08:16 - Today's Visit Information Type of service Follow-up Visit Follow-up Visit (Physician/ANESTHESIOLOGY TEACHER (Physician/ANESTHESIOLOGY TEACHER ) ) Arrival Mode Wheelchair Wheelchair Transfer Assistance None Accompanied by dad Patient Identification Verified (Name & Yes Yes ) Patient Requires Transmission-Based No Precautions Safety Precautions Finger Stick Blood Sugar(mg/dl) (if 103 104 indicated): Blood Sugar Stated by Stated by Patient Patient Height and Weight Body Mass Index (BMI) 41.8 41.8 BMI Classification Obese Obese Vital Signs Temperature (97.8 F-99.1 F) 97.4 F L 97.5 F L Temperature Source Temporal Temporal Pulse Rate (60-100) 90 81 Pulse Location Monitor Monitor Respiratory Rate (12-18) 16 Respiratory rate source Observation Oxygen Delivery Method Room Air Blood Pressure (90/60-120/80) 105/67 116/61 Blood Pressure Mean (mm Hg) 79 79 Source Monitor Monitor Position Sitting Sitting Blood Pressure Location Left Arm Right Arm History Since Last Visit- (Skip if this is Patient's initial visit) Have you changed medications since your No No last visit? Any new allergies or adverse reactions No No Had a fall/change in ADL's that may No No increase risk of falls Signs or symptoms of abuse and/or No No neglect since last visit Have you been in the hospital since your No No last visit? Has dressing in place as prescribed Yes Yes Has compression in place as prescribed Yes Yes Has offloadiing in place as prescribed N/A N/A Experienced any changes in pain level or No No management Left Footwear No Footwear Right Footwear Removable Cast Walker/Walking Boot Pain Scale: 0-10 Numeric Is Patient Pain Free? Yes Yes - Nurse 1 - General Ulcer Measurement Start: 03/09/22 09:16 Freq: Status: Active Protocol: Activity Type Activity Date Activity User E-sign Co-sign Detail Recorded Client Recorded Date Recorded By Document 03/09/22 09:16 AK [id number] 03/09/22 09:19 AK Document 03/16/22 09:10 [facility] [id number] 03/16/22 09:17 BM Document 03/23/22 09:43 AK [id number] 03/23/22 09:52 AK Document 03/30/22 09:57 MW [id number] 03/30/22 10:08 MW Document 04/05/22 08:16 KR [id number] 04/05/22 08:21 KR 03/09/22 03/16/22 03/23/22 09:16 09:10 09:43 Wound Center Nurse 1 #1- L DORSAL FOOT POST OP -Combined with other wound No No No -Current Size (cm) - Length 4 4.6 2.7 -Current Size (cm) - Width 2 2.4 1.8 -Current Size (cm) - Depth 0.1 0.1 0.1 -Total Square Cm 8 11.04 4.86 -Date of Last Picture (Recall this 03/09/22 field) -Photo Taken Yes No No -Epithelialization None Present Small 1-33% -Tunneling No No No -Undermining/Tunneling No No No -Circular Undermining No No No -Classification - Thickness Full Thickness with Exposed Support Structure -Change in Wound Grade/Stage No No -Exudate Amt Medium Medium -Exudate Type Serosanguineous Serosanguineous -Wound Margin Distinct, Distinct, Distinct, Outline Outline Outline Attached Attached Attached -Granulation Amt Medium (34-66%) Large (67-100%) Large (67-100%) -Granulation Quality Red N/A,Red -Slough/Fibrin Yes Yes Yes -Necrosis Amt Medium (34-66%) Small (1-33%) Small (1-33%) -Necrotic Tissue Type Adherent Slough Adherent Slough Adherent Slough -Structure Exposed Tendon N/A -Texture ([place]-wound Skin Appearance) Assessed, Assessed, No Abnormality, Scarring Scarring Assessed -Moisture ([place]-wound Skin Appearance) No Abnormality, Assessed,Dry/ No Abnormality, Assessed Scaly Assessed -Color ([place]-wound Skin Appearance) No Abnormality, Assessed No Abnormality, Assessed Assessed -Temperature ([place]-wound Skin No Abnormality No Abnormality No Abnormality Appearance) (Pt Warm) (Pt Warm) (Pt Warm) -Tenderness on Palpation ([place]-wound No No No Skin Appearance) -Ulcer Cleansing Soap and Water Soap and Water Soap and Water -Foul Odor after Cleansing No No No -Anesthetic Used 5% Lidocaine 4% Lidocaine 5% Lidocaine Gel Solution Gel Lower Limb Edema Present No Yes Left Calf (cm) 33.5 33.5 35 Left Ankle (cm) 23 23.8 23.2 03/30/22 04/05/22 09:57 08:16 Wound Center Nurse 1 #1- L DORSAL FOOT POST OP -Combined with other wound No -Current Size (cm) - Length 1.5 2.2 -Current Size (cm) - Width 0.7 2.5 -Current Size (cm) - Depth 0.1 0.1 -Total Square Cm 1.05 5.50 -Date of Last Picture (Recall this 03/30/22 field) -Photo Taken Yes No -Epithelialization Small 1-33% -Tunneling No -Undermining/Tunneling No -Circular Undermining No -Classification - Thickness -Change in Wound Grade/Stage -Exudate Amt Medium Medium -Exudate Type Serosanguineous Serosanguineous -Wound Margin Flat & Intact Distinct, Outline Attached -Granulation Amt Large (67-100%) Medium (34-66%) -Granulation Quality [place] -Slough/Fibrin Yes -Necrosis Amt Small (1-33%) Medium (34-66%) -Necrotic Tissue Type Adherent Slough Adherent Slough -Structure Exposed N/A N/A -Texture ([place]-wound Skin Appearance) Assessed, Scarring Localized Edema ,Scarring -Moisture ([place]-wound Skin Appearance) Assessed,Dry/ Scaly -Color ([place]-wound Skin Appearance) No Abnormality, Hemosiderin Assessed Staining -Temperature ([place]-wound Skin No Abnormality No Abnormality Appearance) (Pt Warm) (Pt Warm) -Tenderness on Palpation ([place]-wound No No Skin Appearance) -Ulcer Cleansing Soap and Water Soap and Water -Foul Odor after Cleansing No No -Anesthetic Used 5% Lidocaine 5% Lidocaine Gel Gel Lower Limb Edema Present Yes Left Calf (cm) 32.5 34.8 Left Ankle (cm) 24.0 23.7 WC - Nurse 2 - General Ulcer CM Notes Start: 03/09/22 09:16 Freq: Status: Active Protocol: Activity Type Activity Date Activity User E-sign Co-sign Detail Recorded Client Recorded Date Recorded By Document 03/09/22 09:21 [id number] 03/09/22 09:22 JF Edit Result 03/09/22 09:21 JF (1) [id number] 03/09/22 09:24 JF Document 03/16/22 09:34 JF [id number] 03/16/22 09:35 JF Edit Result 03/16/22 09:34 JF (2) [id number] 03/16/22 09:36 JF Document 03/23/22 10:01 JF [id number] 03/23/22 10:08 JF Document 03/30/22 10:23 JF [id number] 03/30/22 10:30 JF Document 04/05/22 08:38 JF [id number] 04/05/22 08:44 JF (1) #1- L DORSAL FOOT POST OP - Post Debridement (cm) - Length 4.1 => 4.5 - Post Debridement (cm) - Depth 0.1 => 0.2 - Total Square (Post) (cm) 8.61 => 9.45 (2) #1- L DORSAL FOOT POST OP - Post Debridement (cm) - Length 4.6 => 3.4 - Post Debridement (cm) - Width 2.5 => 1.9 - Total Square (Post) (cm) 11.50 => 6.46 - Area of Debridement (cm) - Length 4.6 => 3.4 - Area of Debridement (cm) - Width 2.5 => 1.9 - Total Square (Area) (cm) 11.50 => 6.46 03/09/22 03/16/22 03/23/22 09:21 09:34 10:01 Wound Center Nurse 2 #1- L DORSAL FOOT POST OP -Time 09:21 09:34 10:07 -Correct Patient Yes Yes Yes -Correct Side, Site, Position Yes Yes Yes -Correct Procedure Yes Yes Yes -Procedure Performed Yes Yes Yes -Type of Procedure Debridement Debridement Debridement -Clinical Debridement Subcutaneous Subcutaneous Subcutaneous -Tissue Removed Subcutaneous Subcutaneous Subcutaneous -Post Debridement (cm) - Length 4.5 3.4 2.0 -Post Debridement (cm) - Width 2.1 1.9 1.8 -Post Debridement (cm) - Depth 0.2 0.1 0.1 -Total Square (Post) (cm) 9.45 6.46 3.60 -Area of Debridement (cm) - Length 4.1 3.4 2.0 -Area of Debridement (cm) - Width 2.1 1.9 1.8 -Total Square (Area) (cm) 8.61 6.46 3.60 -Tunneling No No No -Undermining/Tunneling No No No -Circular Undermining No No No -Wound/Ulcer Outcome Not Healed Not Healed Not Healed -Ulcer Cleansing Rinsed/ Rinsed/ Rinsed/ Irrigated with Irrigated with Irrigated with Saline Saline Saline -Foul Odor after Cleansing No No No -Bioengineered Tissue No No Yes -Type of Bioengineered Tissue Epifix -Expiration Date 12/06/26 -Product Lot Number [id number] -Percent Used 100 -Lot number of Saline Used [id number] -Bleeding Controlled with Pressure Pressure Pressure -Treatment Response Procedure Procedure Procedure Tolerated Well Tolerated Well Tolerated Well -Offloading No Yes Yes -Type of Offloading Camwalker Camwalker -Assistive Device(s) Wheelchair -Debridement - Subq, 1st 20sq cm Yes Yes No -Apply Skin Sub - 1st 25 sq cm - Feet 1 -Epifix (per sq cm) 4 -Epifix 18mm Disc Pain Scale: 0-10 Numeric Is Patient Pain Free? Yes Yes Yes 03/30/22 04/05/22 10:23 08:38 Wound Center Nurse 2 #1- L DORSAL FOOT POST OP -Time 10:28 08:43 -Correct Patient Yes Yes -Correct Side, Site, Position Yes Yes -Correct Procedure Yes Yes -Procedure Performed Yes Yes -Type of Procedure Debridement Debridement -Clinical Debridement Subcutaneous Subcutaneous -Tissue Removed Subcutaneous Subcutaneous -Post Debridement (cm) - Length 1.5 2.5 -Post Debridement (cm) - Width 0.8 2.3 -Post Debridement (cm) - Depth 0.1 0.1 -Total Square (Post) (cm) 1.20 5.75 -Area of Debridement (cm) - Length 1.5 2.5 -Area of Debridement (cm) - Width 0.8 2.3 -Total Square (Area) (cm) 1.20 5.75 -Tunneling No No -Undermining/Tunneling No No -Circular Undermining No No -Wound/Ulcer Outcome Not Healed Not Healed -Ulcer Cleansing Rinsed/ Rinsed/ Irrigated with Irrigated with Saline Saline -Foul Odor after Cleansing No No -Bioengineered Tissue Yes Yes -Type of Bioengineered Tissue Epifix Epifix 18mm Disc -Expiration Date 01/06/27 12/06/26 -Product Lot Number [id number] -Percent Used 100 100 -Lot number of Saline Used [id number] -Bleeding Controlled with Pressure Pressure -Treatment Response Procedure Procedure Tolerated Well Tolerated Well -Offloading Yes No -Type of Offloading Camwalker -Assistive Device(s) -Debridement - Subq, 1st 20sq cm No No -Apply Skin Sub - 1st 25 sq cm - Feet 1 1 -Epifix (per sq cm) 4 -Epifix 18mm Disc 3 Pain Scale: 0-10 Numeric Is Patient Pain Free? Yes Yes WC - Nurse 3 - General Ulcer D/C NN Start: 03/09/22 09:16 Freq: Status: Active Protocol: Activity Type Activity Date Activity User E-sign Co-sign Detail Recorded Client Recorded Date Recorded By Document 03/09/22 09:33 [facility] [id number] 03/09/22 09:34 [facility] Document 03/16/22 09:48 [facility] [id number] 03/16/22 09:49 [facility] Document 03/23/22 10:10 BM [id number] 03/23/22 10:11 BM Document 03/30/22 10:43 MW [id number] 03/30/22 10:44 MW 03/09/22 03/16/22 03/23/22 09:33 09:48 10:10 Wound Care Nurse 3 #1- L DORSAL FOOT POST OP -Ulcer Cleansing Rinsed/ Rinsed/ Irrigated with Irrigated with Saline Saline -Foul Odor after Cleansing No No -Negative Pressure Wound Therapy -Primary Dressing Applied Aquacel AG 2x2 Aquacel AG 2x2 -Other Dressing epifix, abd -Primary Dressing Covered/Secured with Other -Other Covering abd ABD drsg per ak corporate real estate manager -Aquacel AG 2x2 1 1 Left -Lotion applied to leg before Yes compression wrap -Multi-Layered Wrap Application Multi-Layer Multi-Layer Multi-Layer Comp - Left ($) Comp - Left ($) Comp - Left ($) -Other 3m per ak corporate real estate manager Treatment Response Procedure Procedure Procedure Tolerated Well Tolerated Well Tolerated Well Pain Scale: 0-10 Numeric Is Patient Pain Free? Yes Yes Yes Teaching: Wound Center Compression Wraps & Stockings -Person Taught -Teaching Method -Response to teaching WC - Visit Discharge Discharge Condition Stable Stable Stable Ambulatory Status Wheelchair Wheelchair Wheelchair Transportation Private Auto Private Auto Private Auto Accompanied by renee duran Medication Reconcilliation completed & provided to patient/care provider Clinical Summary of Care Provided Facility Type Home Health Home Health 03/30/22 10:43 Wound Care Nurse 3 #1- L DORSAL FOOT POST OP -Ulcer Cleansing Not Cleansed -Foul Odor after Cleansing No -Negative Pressure Wound Therapy N/A -Primary Dressing Applied -Other Dressing ABD -Primary Dressing Covered/Secured with -Other Covering -Aquacel AG 2x2 Left -Lotion applied to leg before Yes compression wrap -Multi-Layered Wrap Application Multi-Layer Comp - Left ($) -Other Treatment Response Procedure Tolerated Well Pain Scale: 0-10 Numeric Is Patient Pain Free? Yes Teaching: Wound Center Compression Wraps & Stockings -Person Taught Patient,Family -Teaching Method Discussion, Demonstration -Response to teaching Verbalize understanding WC - Visit Discharge Discharge Condition Stable Ambulatory Status Wheelchair Transportation Private Auto Accompanied by renee Medication Reconcilliation completed & No provided to patient/care provider Clinical Summary of Care Provided Yes Facility Type Assessment/Plan Assessment/Plan (1) Osteomyelitis of ankle or foot, left, acute: CODE(S): M86.172 - Other acute osteomyelitis, left ankle and foot (2) Charcot arthropathy of midfoot: CODE(S): M14.679 - Charcot's joint, unspecified ankle and foot (3) 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 muscle: CODE(S): L97.523 - 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 muscle PLAN: This is a courtesy visit for Dr. Perkins. Patient examined evaluated, all fine discussed with patient detail. No concern for residual infection. Wounds healing significantly every week. A 18 mm epi fix graft was applied to the dorsal left midfoot ulceration. This was the 3rd application and 100% of the graft was used. Collagen hydrogel placed over the epifix due to the dryness from last week. Graft was secured with overlying wound veil and Steri-Strips quarter-inch. Covered with gauze. Overlying 3M compression wrap applied. Continue nonweightbearing to left lower extremity with baby aspirin for DVT prophylaxis. Elevate left lower extremity at rest above heart. Home health to change dressing Tuesday, they may place collagen hydrogel on top of the wound veil before covering ulcer with gauze. Follow-up in 1 week. Wound is nearly healed at this time. (4) Type 2 diabetes mellitus with diabetic polyneuropathy: CODE(S): E11.42 - Type 2 diabetes mellitus with diabetic polyneuropathy QUALIFIERS: Diabetes mellitus dedicated intermodal truck driver insulin use: without dedicated intermodal truck driver use Qualified Code(s): E11.42 - Type 2 diabetes mellitus with diabetic polyneuropathy
== END 2022-04-07 23:59 | disposition home or self-care (01) ==
LOC: WC 08:45
PROVIDERS: PCP Student in an Organized Health Care Education/Training Program; Visit Provider Podiatrist
DX: E11.621 Type 2 diabetes mellitus with foot ulcer (principal); A48.0 Gas gangrene; L97.523 Non-pressure chronic ulcer of other part of left foot with necrosis of muscle; M86.172 Other acute osteomyelitis, left ankle and foot; E11.628 Type 2 diabetes mellitus with other skin complications; E11.610 Type 2 diabetes mellitus with diabetic neuropathic arthropathy; E11.42 Type 2 diabetes mellitus with diabetic polyneuropathy
CPT/HCPCS: 11042; 15275; 29581; Q4186

== ENCOUNTER 2022-05-04 08:30 | Outpatient (RCR) | payer BC, SELFPAY ==
[2022-04-08 00:31] VITALS: BP 116/61; PULSE 81; RESP 16; TEMP 36.4; BMI 41.8
[2022-04-13 08:18] VITALS: BP 112/68; PULSE 88; RESP 20; TEMP 36.3; BMI 41.8
--- NOTE | 2022-04-13 11:34 | PN.PCM_ITS ---
History of Present Illness Date of Service: 04/13/22 Chief Complaint: Diabetic left foot infection with gas gangrene and osteom yelitis. History of Wound: This is a 42-year-old diabetic white male who presented with fevers, sweats, chills, malaise, and left foot swelling and redness, and found to have a diabetic left foot infection on November 14, 2021. Patient is infection is resolved after 2 incisions and drainage with 6 weeks of IV antibiotics per PICC line. Patient's wounds have been improving well. He is maintain nonweightbearing status denies any chest pain calf pain shortness of breath. Patient has not no constitutional symptoms at this time and no new complaints. Progress of Wound: This is a courtesy visit for Dr. Perkins.? Left dorsal foot ulcer is improved.? There is still a dry layer of scabbing/epifix over the ulcer this week, even with using the collagen hydrogel over the epifix two times this week. Objective Data Objective Data Vital Signs: Vital Signs Temp Pulse Resp BP 97.4 F L 88 20 H 112/68 04/13/22 08:18 04/13/22 08:18 04/13/22 08:18 04/13/22 08:18 Weight: 300 lb Body Mass Index (BMI) 41.8 Charges/Coding Procedures Integumentary 150xxx-152xx: 24424 Skin sub graft face/nk/hf/g Physical Exam Const alert and oriented x3 HEENT normocephalic Resp normal respiratory effort Effort and Inspection: able to speak in complete sentences Cardio regular rate Extremity normal capillary refill General Extremity: edema left lower extremity mild Skin Skin Narrative: Plantar surface of left foot with large plaques of dry skin. Wound Narrative: Left dorsal foot ulcer is superficial cluster that the ulcer bed is pink. No odor. Neuro CN's II-XII intact bilaterally Psych affect normal Debridement Note Debridement Note Wound debrided: dorsal foot ulcer cluster Laterality: Left Type of Debridement: Excisional debridement Anesthesia Used: 5% Lidocaine Gel Depth: Down to and including healthy tissue and in the subcutaneous layer Percentage of wound debrided: 100 Instrument Used: 3mm curette Tissue Removed: Devitalized tissue and slough Severity: Fat Layer Exposed Amount of bleeding with debridement: Mild Bleeding Controlled with: Compression and gauze Patient tolerated procedure: Patient tolerated procedure well Post-Debridement Measurements and Additional Note: Post-Debridement Measurements/Treatment MARY - Nurse 1 - General Ulcer Assessment Start: 04/13/22 08:18 Freq: Status: Active Protocol: GWEN Activity Type Activity Date Activity User E-sign Co-sign Detail Recorded Client Recorded Date Recorded By Document 04/13/22 08:18 DL Desktop 04/13/22 08:26 DL 04/13/22 08:18 WC - Today's Visit Information Type of service 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 ) Arrival Mode Ambulatory, Wheelchair Transfer Assistance None Patient Identification Verified (Name & Yes ) Patient Requires Transmission-Based No Precautions Finger Stick Blood Sugar(mg/dl) (if 100 indicated): Blood Sugar Stated by Patient Height and Weight Body Mass Index (BMI) 41.8 BMI Classification Obese Vital Signs Temperature (97.8 F-99.1 F) 97.4 F L Temperature Source Temporal Pulse Rate (60-100) 88 Pulse Location Monitor Respiratory Rate (12-18) 20 H Respiratory rate source Observation Blood Pressure (90/60-120/80) 112/68 Blood Pressure Mean (mm Hg) 82 Source Monitor History Since Last Visit- (Skip if this is Patient's initial visit) Have you changed medications since your No last visit? Any new allergies or adverse reactions No Had a fall/change in ADL's that may No increase risk of falls Signs or symptoms of abuse and/or No neglect since last visit Have you been in the hospital since your No last visit? Has dressing in place as prescribed Yes Has compression in place as prescribed Yes Has offloadiing in place as prescribed Yes Experienced any changes in pain level or No management Pain Scale: 0-10 Numeric Is Patient Pain Free? Yes MARY - Nurse 1 - General Ulcer Measurement Start: 04/13/22 08:18 Freq: Status: Active Protocol: Activity Type Activity Date Activity User E-sign Co-sign Detail Recorded Client Recorded Date Recorded By Document 04/13/22 08:18 FITO Desktop 04/13/22 08:26 DL 04/13/22 08:18 Wound Center Nurse 1 #1- L DORSAL FOOT POST OP -Current Size (cm) - Length 0.8 -Current Size (cm) - Width 0.8 -Current Size (cm) - Depth 0.1 -Total Square Cm 0.64 -Photo Taken No -Exudate Amt Small -Exudate Type Serosanguineous -Wound Margin Distinct, Outline Attached -Granulation Amt Large (67-100%) -Granulation Quality [place] -Necrosis Amt Small (1-33%) -Necrotic Tissue Type Adherent Slough -Structure Exposed N/A -Texture ([place]-wound Skin Appearance) Scarring -Moisture ([place]-wound Skin Appearance) Dry/Scaly -Color ([place]-wound Skin Appearance) No Abnormality -Temperature ([place]-wound Skin No Abnormality Appearance) (Pt Warm) -Tenderness on Palpation ([place]-wound No Skin Appearance) -Ulcer Cleansing Soap and Water -Foul Odor after Cleansing No -Anesthetic Used 5% Lidocaine Gel Right Calf (cm) 32 Right Ankle (cm) 21.5 WC - Nurse 2 - General Ulcer CM Notes Start: 04/13/22 08:18 Freq: Status: Active Protocol: Activity Type Activity Date Activity User E-sign Co-sign Detail Recorded Client Recorded Date Recorded By Document 04/13/22 08:43 MW [id number] 04/13/22 08:52 MW 04/13/22 08:43 Wound Center Nurse 2 #1- L DORSAL FOOT POST OP -Time 08:43 -Correct Patient Yes -Correct Side, Site, Position Yes -Correct Procedure Yes -Procedure Performed Yes -Type of Procedure Debridement -Clinical Debridement Subcutaneous -Tissue Removed Epidermis, Subcutaneous -Post Debridement (cm) - Length 2.5 -Post Debridement (cm) - Width 0.9 -Post Debridement (cm) - Depth 0.1 -Total Square (Post) (cm) 2.25 -Area of Debridement (cm) - Length 2.5 -Area of Debridement (cm) - Width 0.9 -Total Square (Area) (cm) 2.25 -Tunneling No -Undermining/Tunneling No -Circular Undermining No -Wound/Ulcer Outcome Not Healed -Ulcer Cleansing Rinsed/ Irrigated with Saline -Foul Odor after Cleansing No -Bioengineered Tissue Yes -Type of Bioengineered Tissue Epifix 18mm Disc -Expiration Date 01/06/27 -Product Lot Number [id number] -Percent Used 100 -Lot number of Saline Used [id number] -Bleeding Controlled with Pressure -Treatment Response Procedure Tolerated Well -Offloading No -Debridement - Subq, 1st 20sq cm No -Apply Skin Sub - 1st 25 sq cm - Feet 1 -Epifix 18mm Disc 3 Pain Scale: 0-10 Numeric Is Patient Pain Free? Yes WC - Nurse 3 - General Ulcer D/C NN Start: 04/13/22 08:18 Freq: Status: Active Protocol: Activity Type Activity Date Activity User E-sign Co-sign Detail Recorded Client Recorded Date Recorded By Document 04/13/22 08:52 MW [id number] 04/13/22 08:54 MW 04/13/22 08:52 Wound Care Nurse 3 #1- L DORSAL FOOT POST OP -Ulcer Cleansing Not Cleansed -Other Covering ABD Left -Lotion applied to leg before Yes compression wrap -Multi-Layered Wrap Application Multi-Layer Comp - Left ($) Treatment Response Procedure Tolerated Well Pain Scale: 0-10 Numeric Is Patient Pain Free? Yes Teaching: Wound Center Skin Care -Person Taught Patient,Family -Teaching Method Discussion -Response to teaching Verbalize understanding Compression Wraps & Stockings -Person Taught Patient,Family -Teaching Method Discussion, Demonstration -Response to teaching Verbalize understanding WC - Visit Discharge Discharge Condition Stable Ambulatory Status Walker Transportation Private Auto Accompanied by MOM Medication Reconcilliation completed & No provided to patient/care provider Clinical Summary of Care Provided Yes Assessment/Plan Assessment/Plan (1) Osteomyelitis of ankle or foot, left, acute: CODE(S): M86.172 - Other acute osteomyelitis, left ankle and foot (2) Charcot arthropathy of midfoot: CODE(S): M14.679 - Charcot's joint, unspecified ankle and foot (3) 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 Perkins. Patient examined evaluated, all fine discussed with patient detail. No concern for residual infection. Wounds healing significantly every week. A 18 mm epi fix graft was applied to the dorsal left midfoot ulceration. This was the 4th application and 100% of the graft was used. Collagen hydrogel placed over the epifix due to the dryness from last week. Graft was secured with overlying wound veil and Steri-Strips quarter-inch. Covered with gauze. Overlying 3M compression wrap applied. Continue nonweightbearing to left lower extremity with baby aspirin for DVT prophylaxis. Elevate left lower extremity at rest above heart. Home health to change dressing Tuesday, they may place collagen hydrogel on top of the wound veil before covering ulcer with gauze. Follow-up in [address] Perkins. Wound is nearly healed at this time. (4) Type 2 diabetes mellitus with diabetic polyneuropathy: CODE(S): E11.42 - Type 2 diabetes mellitus with diabetic polyneuropathy QUALIFIERS: Diabetes mellitus assisted insulin use: without assisted use Qualified Code(s): E11.42 - Type 2 diabetes mellitus with diabetic polyneuropathy
[2022-04-20 08:06] VITALS: BP 108/66; PULSE 93; RESP 16; TEMP 36.2; BMI 41.8
--- NOTE | 2022-04-20 09:14 | PN.PCM_ITS ---
History of Present Illness Date of Service: 04/20/22 Chief Complaint: Diabetic left foot infection with gas gangrene and osteom yelitis. History of Wound: This is a 42-year-old diabetic white male who presented with fevers, sweats, chills, malaise, and left foot swelling and redness, and found to have a diabetic left foot infection on November 14, 2021. Patient is infection is resolved after 2 incisions and drainage with 6 weeks of IV antibiotics per PICC line. Patient's wounds have been improving well. He is maintain nonweightbearing status denies any chest pain calf pain shortness of breath. Patient has not no constitutional symptoms at this time and no new complaints. Progress of Wound: This is a courtesy visit for Dr. Perkins.? Left dorsal foot ulcer is improved.? There is still a dry layer of scabbing/epifix over the ulcer this week, even with using the collagen hydrogel over the epifix two times this week. Objective Data Objective Data Vital Signs: Vital Signs Temp Pulse Resp BP O2 Del Method 97.1 F L 93 16 108/66 Room Air 04/20/22 08:06 04/20/22 08:06 04/20/22 08:06 04/20/22 08:06 04/20/22 08:06 Oxygen Delivery Method Room Air Weight: 136.078 kg Body Mass Index (BMI) 41.8 Physical Exam Narrative Neurovascular status unchanged from previous visit. Full-thickness wound noted to dorsal left foot at site of incision and drainage. Wound significantly healed at this time small focal ulceration residual. No signs of infection deep probing undermining. No pain with calf squeeze or palpation popliteal fossa. Bilateral Charcot deformity noted. Debridement Note Debridement Note Post-Debridement Measurements and Additional Note: Post-Debridement Measurements/Treatment - Nurse 1 - General Ulcer Assessment Start: 04/13/22 08:18 Freq: Status: Active Protocol: GWEN Activity Type Activity Date Activity User E-sign Co-sign Detail Recorded Client Recorded Date Recorded By Document 04/13/22 08:18 DL Desktop 04/13/22 08:26 DL Document 04/20/22 08:06 [facility] [id number] 04/20/22 08:10 [facility] 04/13/22 04/20/22 08:18 08:06 - Today's Visit Information Type of service Follow-up Visit Follow-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 ) ) Arrival Mode Ambulatory, Wheelchair Wheelchair Transfer Assistance None None Accompanied by dad Patient Identification Verified (Name & Yes Yes ) Patient Requires Transmission-Based No No Precautions Finger Stick Blood Sugar(mg/dl) (if 100 indicated): Blood Sugar Stated by Patient Height and Weight Body Mass Index (BMI) 41.8 41.8 BMI Classification Obese Obese Vital Signs Temperature (97.8 F-99.1 F) 97.4 F L 97.1 F L Temperature Source Temporal Temporal Pulse Rate (60-100) 88 93 Pulse Location Monitor Monitor Respiratory Rate (12-18) 20 H 16 Respiratory rate source Observation Observation Oxygen Delivery Method Room Air Blood Pressure (90/60-120/80) 112/68 108/66 Blood Pressure Mean (mm Hg) 82 80 Source Monitor Monitor Position Sitting Blood Pressure Location Left Arm History Since Last Visit- (Skip if this is Patient's initial visit) Have you changed medications since your No No last visit? Any new allergies or adverse reactions No No Had a fall/change in ADL's that may No No increase risk of falls Signs or symptoms of abuse and/or No No neglect since last visit Have you been in the hospital since your No No last visit? Has dressing in place as prescribed Yes Yes Has compression in place as prescribed Yes Yes Has offloadiing in place as prescribed Yes Yes Experienced any changes in pain level or No No management Pain Scale: 0-10 Numeric Is Patient Pain Free? Yes Yes - Nurse 1 - General Ulcer Measurement Start: 04/13/22 08:18 Freq: Status: Active Protocol: Activity Type Activity Date Activity User E-sign Co-sign Detail Recorded Client Recorded Date Recorded By Document 04/13/22 08:18 DL Desktop 04/13/22 08:26 DL Document 04/20/22 08:06 [facility] [id number] 04/20/22 08:10 [facility] 04/13/22 04/20/22 08:18 08:06 Wound Center Nurse 1 #1- L DORSAL FOOT POST OP -Combined with other wound No -Current Size (cm) - Length 0.8 0.1 -Current Size (cm) - Width 0.8 0.1 -Current Size (cm) - Depth 0.1 0.1 -Total Square Cm 0.64 0.01 -Date of Last Picture (Recall this 04/20/22 field) -Photo Taken No Yes -Epithelialization Large 67-100% -Exudate Amt Small None Present -Exudate Type Serosanguineous -Wound Margin Distinct, Distinct, Outline Outline Attached Attached -Granulation Amt Large (67-100%) -Granulation Quality [place] -Slough/Fibrin Yes -Necrosis Amt Small (1-33%) Small (1-33%) -Necrotic Tissue Type Adherent Slough [place] -Structure Exposed N/A -Texture ([place]-wound Skin Appearance) Scarring Scarring -Moisture ([place]-wound Skin Appearance) Dry/Scaly Dry/Scaly -Color ([place]-wound Skin Appearance) No Abnormality Assessed -Temperature ([place]-wound Skin No Abnormality No Abnormality Appearance) (Pt Warm) (Pt Warm) -Tenderness on Palpation ([place]-wound No No Skin Appearance) -Ulcer Cleansing Soap and Water Soap and Water -Foul Odor after Cleansing No No -Anesthetic Used 5% Lidocaine 5% Lidocaine Gel Gel Lower Limb Edema Present Yes Right Calf (cm) 32 Right Ankle (cm) 21.5 Left Calf (cm) 32.5 Left Ankle (cm) 22.5 WC - Nurse 2 - General Ulcer CM Notes Start: 04/13/22 08:18 Freq: Status: Active Protocol: Activity Type Activity Date Activity User E-sign Co-sign Detail Recorded Client Recorded Date Recorded By Document 04/13/22 08:43 [id number] 04/13/22 08:52 MW Document 04/20/22 08:40 [id number] 04/20/22 08:48 04/13/22 04/20/22 08:43 08:40 Wound Center Nurse 2 #1- L DORSAL FOOT POST OP -Time 08:43 08:42 -Correct Patient Yes Yes -Correct Side, Site, Position Yes Yes -Correct Procedure Yes Yes -Procedure Performed Yes Yes -Type of Procedure Debridement Debridement -Clinical Debridement Subcutaneous Subcutaneous -Tissue Removed Epidermis, Subcutaneous Subcutaneous -Post Debridement (cm) - Length 2.5 0.3 -Post Debridement (cm) - Width 0.9 0.4 -Post Debridement (cm) - Depth 0.1 0.1 -Total Square (Post) (cm) 2.25 0.12 -Area of Debridement (cm) - Length 2.5 0.3 -Area of Debridement (cm) - Width 0.9 0.4 -Total Square (Area) (cm) 2.25 0.12 -Tunneling No No -Undermining/Tunneling No No -Circular Undermining No No -Wound/Ulcer Outcome Not Healed Not Healed -Ulcer Cleansing Rinsed/ Rinsed/ Irrigated with Irrigated with Saline Saline -Foul Odor after Cleansing No No -Bioengineered Tissue Yes Yes -Type of Bioengineered Tissue Epifix 18mm Epifix 18mm Disc Disc -Expiration Date 01/06/27 01/06/27 -Product Lot Number [id number] -Percent Used 100 100 -Lot number of Saline Used [id number] -Bleeding Controlled with Pressure Pressure -Treatment Response Procedure Procedure Tolerated Well Tolerated Well -Offloading No Yes -Type of Offloading [place] -Debridement - Subq, 1st 20sq cm No No -Apply Skin Sub - 1st 25 sq cm - Feet 1 1 -Epifix 18mm Disc 3 3 Pain Scale: 0-10 Numeric Is Patient Pain Free? Yes Yes WC - Nurse 3 - General Ulcer D/C NN Start: 04/13/22 08:18 Freq: Status: Active Protocol: Activity Type Activity Date Activity User E-sign Co-sign Detail Recorded Client Recorded Date Recorded By Document 04/13/22 08:52 MW [id number] 04/13/22 08:54 MW Document 04/20/22 09:01 MW [id number] 04/20/22 09:02 MW 04/13/22 04/20/22 08:52 09:01 Wound Care Nurse 3 #1- L DORSAL FOOT POST OP -Ulcer Cleansing Not Cleansed Not Cleansed -Other Dressing abd -Other Covering ABD Left -Lotion applied to leg before Yes No compression wrap -Multi-Layered Wrap Application Multi-Layer Multi-Layer Comp - Left ($) Comp - Left ($) Treatment Response Procedure Procedure Tolerated Well Tolerated Well Pain Scale: 0-10 Numeric Is Patient Pain Free? Yes Yes Teaching: Wound Center Skin Care -Person Taught Patient,Family -Teaching Method Discussion -Response to teaching Verbalize understanding Compression Wraps & Stockings -Person Taught Patient,Family -Teaching Method Discussion, Demonstration -Response to teaching Verbalize understanding Dressing Your Wound -Person Taught Patient -Teaching Method Discussion -Response to teaching Verbalize understanding WC - Visit Discharge Discharge Condition Stable Stable Ambulatory Status Walker Wheelchair Transportation Private Auto Accompanied by MOM dad Medication Reconcilliation completed & No No provided to patient/care provider Clinical Summary of Care Provided Yes Yes Assessment/Plan Assessment/Plan (1) Osteomyelitis of ankle or foot, left, acute: CODE(S): M86.172 - Other acute osteomyelitis, left ankle and foot PLAN: Patient examined evaluated, all fine discussed patient detail. Patient's left foot wound is significantly healing well at this time. Left dorsal midfoot wound was excisionally debrided down to including level subcutaneous tissue of all nonviable tissue using 5 mm dermal curette. Hemostasis obtained with light compression noted anesthesia due to neuropathy. Patient tolerated procedure well. A 18 mm epi fix graft was applied to the dorsal left midfoot wound with expiration date of 01/06/2027 this is 3 billing units. All graft was used no waste. Graft was secured with Adaptic and Steri-Strips. Overlying 3M compression wrap performed. Patient will continue nonweightbearing until wound healing we will continue baby aspirin for DVT prophylaxis. Patient follow-up in 1 week (2) 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 muscle: CODE(S): L97.523 - 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 muscle (3) 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 muscle: CODE(S): L97.523 - 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 muscle
[2022-04-27 08:24] VITALS: BP 124/74; PULSE 95; RESP 18; TEMP 36.1; BMI 41.8
--- NOTE | 2022-04-27 09:16 | PN.PCM_ITS ---
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 History of Wound: This is a 42-year-old diabetic white male who presented with fevers, sweats, chills, malaise, and left foot swelling and redness, and found to have a diabetic left foot infection on November 14, 2021. Patient is infection is resolved after 2 incisions and drainage with 6 weeks of IV antibiotics per PICC line. Patient's wounds have been improving well. He is maintain nonweightbearing status denies any chest pain calf pain shortness of breath. Patient has not no constitutional symptoms at this time and no new complaints. Progress of Wound: This is a courtesy visit for Dr. Perkins.? Left dorsal foot ulcer is improved.? There is still a dry layer of scabbing/epifix over the ulcer this week, even with using the collagen hydrogel over the epifix two times this week. Objective Data Objective Data Vital Signs: Vital Signs Temp Pulse Resp BP O2 Del Method 96.9 F L 95 18 124/74 H Room Air 04/27/22 08:24 04/27/22 08:24 04/27/22 08:24 04/27/22 08:24 04/27/22 08:24 Oxygen Delivery Method Room Air Weight: 136.078 kg Body Mass Index (BMI) 41.8 Physical Exam Narrative Neurovascular status unchanged from previous visit. Dorsal and plantar foot wounds noted to be healed at this time. No signs of residual infection. Diffuse scarring to dorsal midfoot. No pain with calf squeeze or palpation popliteal fossa. Bilateral Charcot deformity noted. Debridement Note Debridement Note Post-Debridement Measurements and Additional Note: Post-Debridement Measurements/Treatment WC - Nurse 1 - General Ulcer Assessment Start: 04/13/22 08:18 Freq: Status: Active Protocol: GWEN Activity Type Activity Date Activity User E-sign Co-sign Detail Recorded Client Recorded Date Recorded By Document 04/13/22 08:18 DL Desktop 04/13/22 08:26 DL Document 04/20/22 08:06 [facility] [id number] 04/20/22 08:10 BMF Document 04/27/22 08:24 [facility] [id number] 04/27/22 08:29 BMF 04/13/22 04/20/22 04/27/22 08:18 08:06 08:24 WC - Today's Visit Information Type of service Follow-up Visit Follow-up Visit Follow-up Visit (Physician/[employer]TAIL [employer] SALES COUNTER MANAGER (Physician/RETAIL [employer] SALES COUNTER MANAGER (Physician/[employer]TA[employer] SALES COUNTER MANAGER ) ) ) Arrival Mode Ambulatory, Wheelchair Wheelchair Wheelchair Transfer Assistance None None None Accompanied by dad dad Patient Identification Verified (Name & Yes Yes Yes ) Patient Requires Transmission-Based No No No Precautions Finger Stick Blood Sugar(mg/dl) (if 100 indicated): Blood Sugar Stated by Patient Height and Weight Body Mass Index (BMI) 41.8 41.8 41.8 BMI Classification Obese Obese Obese Vital Signs Temperature (97.8 F-99.1 F) 97.4 F L 97.1 F L 96.9 F L Temperature Source Temporal Temporal Temporal Pulse Rate (60-100) 88 93 95 Pulse Location Monitor Monitor Monitor Respiratory Rate (12-18) 20 H 16 18 Respiratory rate source Observation Observation Observation Oxygen Delivery Method Room Air Room Air Blood Pressure (90/60-120/80) 112/68 108/66 124/74 H Blood Pressure Mean (mm Hg) 82 80 90 Source Monitor Monitor Monitor Position Sitting Sitting Blood Pressure Location Left Arm Left Arm History Since Last Visit- (Skip if this is Patient's initial visit) Have you changed medications since your No No No last visit? Any new allergies or adverse reactions No No No Had a fall/change in ADL's that may No No No increase risk of falls Signs or symptoms of abuse and/or No No No neglect since last visit Have you been in the hospital since your No No No last visit? Has dressing in place as prescribed Yes Yes Yes Has compression in place as prescribed Yes Yes No Has offloadiing in place as prescribed Yes Yes Yes Experienced any changes in pain level or No No No management Left Footwear Regular Shoe Right Footwear Regular Shoe Pain Scale: 0-10 Numeric Is Patient Pain Free? Yes Yes Yes - Nurse 1 - General Ulcer Measurement Start: 04/13/22 08:18 Freq: Status: Active Protocol: Activity Type Activity Date Activity User E-sign Co-sign Detail Recorded Client Recorded Date Recorded By Document 04/13/22 08:18 DL Desktop 04/13/22 08:26 DL Document 04/20/22 08:06 [facility] [id number] 04/20/22 08:10 BM Document 04/27/22 08:24 [facility] [id number] 04/27/22 08:29 [facility] 04/13/22 04/20/22 04/27/22 08:18 08:06 08:24 Wound Center Nurse 1 #1- L DORSAL FOOT POST OP -Combined with other wound No No -Current Size (cm) - Length 0.8 0.1 0.1 -Current Size (cm) - Width 0.8 0.1 0.1 -Current Size (cm) - Depth 0.1 0.1 0.1 -Total Square Cm 0.64 0.01 0.01 -Date of Last Picture (Recall this 04/20/22 field) -Photo Taken No Yes -Epithelialization Large 67-100% -Tunneling No -Undermining/Tunneling No -Circular Undermining No -Exudate Amt Small None Present Small -Exudate Type Serosanguineous Serosanguineous -Wound Margin Distinct, Distinct, Distinct, Outline Outline Outline Attached Attached Attached -Granulation Amt Large (67-100%) Medium (34-66%) -Granulation Quality [place] -Slough/Fibrin Yes Yes -Necrosis Amt Small (1-33%) Small (1-33%) Small (1-33%) -Necrotic Tissue Type Adherent Slough Eschar Adherent Slough -Structure Exposed N/A N/A -Texture ([place]-wound Skin Appearance) Scarring Scarring Assessed, Scarring -Moisture ([place]-wound Skin Appearance) Dry/Scaly Dry/Scaly Assessed -Color ([place]-wound Skin Appearance) No Abnormality Assessed Assessed -Temperature ([place]-wound Skin No Abnormality No Abnormality No Abnormality Appearance) (Pt Warm) (Pt Warm) (Pt Warm) -Tenderness on Palpation ([place]-wound No No No Skin Appearance) -Ulcer Cleansing Soap and Water Soap and Water Wound Cleanser -Foul Odor after Cleansing No No No -Anesthetic Used 5% Lidocaine 5% Lidocaine 5% Lidocaine Gel Gel Gel Lower Limb Edema Present Yes Right Calf (cm) 32 Right Ankle (cm) 21.5 Left Calf (cm) 32.5 33.9 Left Ankle (cm) 22.5 23.1 WC - Nurse 2 - General Ulcer CM Notes Start: 04/13/22 08:18 Freq: Status: Active Protocol: Activity Type Activity Date Activity User E-sign Co-sign Detail Recorded Client Recorded Date Recorded By Document 04/13/22 08:43 TWIN [id number] 04/13/22 08:52 MW Document 04/20/22 08:40 [id number] 04/20/22 08:48 Document 04/27/22 08:49 [id number] 04/27/22 08:51 04/13/22 04/20/22 04/27/22 08:43 08:40 08:49 Wound Center Nurse 2 #1- L DORSAL FOOT POST OP -Time 08:43 08:42 -Correct Patient Yes Yes No -Correct Side, Site, Position Yes Yes No -Correct Procedure Yes Yes No -Procedure Performed Yes Yes No -Type of Procedure Debridement Debridement -Clinical Debridement Subcutaneous Subcutaneous -Tissue Removed Epidermis, Subcutaneous Subcutaneous -Post Debridement (cm) - Length 2.5 0.3 0 -Post Debridement (cm) - Width 0.9 0.4 0 -Post Debridement (cm) - Depth 0.1 0.1 0 -Total Square (Post) (cm) 2.25 0.12 0 -Area of Debridement (cm) - Length 2.5 0.3 0 -Area of Debridement (cm) - Width 0.9 0.4 0 -Total Square (Area) (cm) 2.25 0.12 0 -Tunneling No No -Undermining/Tunneling No No -Circular Undermining No No -Wound/Ulcer Outcome Not Healed Not Healed Healed- Epithelialized -Ulcer Cleansing Rinsed/ Rinsed/ Irrigated with Irrigated with Saline Saline -Foul Odor after Cleansing No No -Bioengineered Tissue Yes Yes -Type of Bioengineered Tissue Epifix 18mm Epifix 18mm Disc Disc -Expiration Date 01/06/27 01/06/27 -Product Lot Number [id number] -Percent Used 100 100 -Lot number of Saline Used [id number] -Bleeding Controlled with Pressure Pressure -Treatment Response Procedure Procedure Tolerated Well Tolerated Well -Offloading No Yes -Type of Offloading Camwalker -Debridement - Subq, 1st 20sq cm No No -Apply Skin Sub - 1st 25 sq cm - Feet 1 1 -Epifix 18mm Disc 3 3 Pain Scale: 0-10 Numeric Is Patient Pain Free? Yes Yes Yes WC - Nurse 3 - General Ulcer D/C NN Start: 04/13/22 08:18 Freq: Status: Active Protocol: Activity Type Activity Date Activity User E-sign Co-sign Detail Recorded Client Recorded Date Recorded By Document 04/13/22 08:52 MW [id number] 04/13/22 08:54 MW Document 04/20/22 09:01 MW [id number] 04/20/22 09:02 MW 04/13/22 04/20/22 08:52 09:01 Wound Care Nurse 3 #1- L DORSAL FOOT POST OP -Ulcer Cleansing Not Cleansed Not Cleansed -Other Dressing abd -Other Covering ABD Left -Lotion applied to leg before Yes No compression wrap -Multi-Layered Wrap Application Multi-Layer Multi-Layer Comp - Left ($) Comp - Left ($) Treatment Response Procedure Procedure Tolerated Well Tolerated Well Pain Scale: 0-10 Numeric Is Patient Pain Free? Yes Yes Teaching: Wound Center Skin Care -Person Taught Patient,Family -Teaching Method Discussion -Response to teaching Verbalize understanding Compression Wraps & Stockings -Person Taught Patient,Family -Teaching Method Discussion, Demonstration -Response to teaching Verbalize understanding Dressing Your Wound -Person Taught Patient -Teaching Method Discussion -Response to teaching Verbalize understanding WC - Visit Discharge Discharge Condition Stable Stable Ambulatory Status Walker Wheelchair Transportation Private Auto Accompanied by MOM dad Medication Reconcilliation completed & No No provided to patient/care provider Clinical Summary of Care Provided Yes Yes Assessment/Plan Assessment/Plan (1) Osteomyelitis of ankle or foot, left, acute: CODE(S): M86.172 - Other acute osteomyelitis, left ankle and foot PLAN: Patient examined evaluated, all fine discussed patient detail. Patient's left foot wound is healed at this time. Patient will continue nonweightbearing with baby aspirin for DVT prophylaxis. Patient given new order for [place]2rio walking boot. Patient will bring in existing [place] walking boot, patient requires new [place]2rio walking boot as he is a new change she suffered a severe gas infection required surgical debridement and additional bone resection leading to a new deformity to his left foot. Patient will follow up in 1 week at which time we will assess fit of his previous Rome2rio walking boot. He will simply apply antibiotic ointment on a daily basis to the left foot he can clean the area with soap and water and shower. Patient educated that he can use his heel for transfer purposes. (2) 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 muscle: CODE(S): L97.523 - 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 muscle (3) 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 muscle: CODE(S): L97.523 - 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 muscle
[2022-05-04 08:26] VITALS: BP 126/78; PULSE 89; RESP 16; TEMP 36.1
--- NOTE | 2022-05-04 09:11 | PN.PCM_ITS ---
History of Present Illness Date of Service: 05/04/22 Chief Complaint: Diabetic left foot infection with gas gangrene and osteom yelitis. History of Wound: This is a 42-year-old diabetic white male who presented with fevers, sweats, chills, malaise, and left foot swelling and redness, and found to have a diabetic left foot infection on November 14, 2021. Patient is infection is resolved after 2 incisions and drainage with 6 weeks of IV antibiotics per PICC line. Patient's wounds have been improving well. He is maintain nonweightbearing status denies any chest pain calf pain shortness of breath. Patient has not no constitutional symptoms at this time and no new complaints. Progress of Wound: This is a courtesy visit for Dr. Perkins.? Left dorsal foot ulcer is improved.? There is still a dry layer of scabbing/epifix over the ulcer this week, even with using the collagen hydrogel over the epifix two times this week. Objective Data Objective Data Vital Signs: Vital Signs Temp Pulse Resp BP O2 Del Method 97 F L 89 16 126/78 H Room Air 05/04/22 08:26 05/04/22 08:26 05/04/22 08:26 05/04/22 08:26 05/04/22 08:26 Oxygen Delivery Method Room Air Weight: 109.769 kg Body Mass Index (BMI) 41.8 Physical Exam Narrative Neurovascular status unchanged from previous visit. Dorsal and plantar foot wounds noted to be healed at this time. No signs of residual infection. Diffuse scarring to dorsal midfoot. No pain with calf squeeze or palpation popliteal fossa. Bilateral Charcot deformity noted. Debridement Note Debridement Note Post-Debridement Measurements and Additional Note: Post-Debridement Measurements/Treatment WC - Nurse 1 - General Ulcer Assessment Start: 04/13/22 08:18 Freq: Status: Active Protocol: MARY.BLAKE Activity Type Activity Date Activity User E-sign Co-sign Detail Recorded Client Recorded Date Recorded By Document 04/13/22 08:18 DL Desktop 04/13/22 08:26 DL Document 04/20/22 08:06 [facility] [id number] 04/20/22 08:10 BM Document 04/27/22 08:24 [facility] [id number] 04/27/22 08:29 BM Document 05/04/22 08:26 [facility] [id number] 05/04/22 08:32 BM 04/13/22 04/20/22 04/27/22 08:18 08:06 08:24 - Today's Visit Information Type of service Follow-up Visit Follow-up Visit Follow-up Visit (Physician/WILDLIFE REHABILITATOR (Physician/WILDLIFE REHABILITATOR (Physician/WILDLIFE REHABILITATOR ) ) ) Arrival Mode Ambulatory, Wheelchair Wheelchair Wheelchair Transfer Assistance None None None Accompanied by dad dad Patient Identification Verified (Name & Yes Yes Yes ) Patient Requires Transmission-Based No No No Precautions Finger Stick Blood Sugar(mg/dl) (if 100 indicated): Blood Sugar Stated by Patient Height and Weight Weight Weight in Pounds Weight Measurement Method Body Mass Index (BMI) 41.8 41.8 41.8 BMI Classification Obese Obese Obese Vital Signs Temperature (97.8 F-99.1 F) 97.4 F L 97.1 F L 96.9 F L Temperature Source Temporal Temporal Temporal Pulse Rate (60-100) 88 93 95 Pulse Location Monitor Monitor Monitor Respiratory Rate (12-18) 20 H 16 18 Respiratory rate source Observation Observation Observation Oxygen Delivery Method Room Air Room Air Blood Pressure (90/60-120/80) 112/68 108/66 124/74 H Blood Pressure Mean (mm Hg) 82 80 90 Source Monitor Monitor Monitor Position Sitting Sitting Blood Pressure Location Left Arm Left Arm History Since Last Visit- (Skip if this is Patient's initial visit) Have you changed medications since your No No No last visit? Any new allergies or adverse reactions No No No Had a fall/change in ADL's that may No No No increase risk of falls Signs or symptoms of abuse and/or No No No neglect since last visit Have you been in the hospital since your No No No last visit? Has dressing in place as prescribed Yes Yes Yes Has compression in place as prescribed Yes Yes No Has offloadiing in place as prescribed Yes Yes Yes Experienced any changes in pain level or No No No management Left Footwear Regular Shoe Right Footwear Regular Shoe Pain Scale: 0-10 Numeric Is Patient Pain Free? Yes Yes Yes 05/04/22 08:26 - Today's Visit Information Type of service Follow-up Visit (Physician/WILDLIFE REHABILITATOR ) Arrival Mode Wheelchair Transfer Assistance None Accompanied by dad Patient Identification Verified (Name & Yes ) Patient Requires Transmission-Based No Precautions Finger Stick Blood Sugar(mg/dl) (if indicated): Blood Sugar Height and Weight Weight 109.769 kg Weight in Pounds 242.0 lbs Weight Measurement Method Stated by Patient Body Mass Index (BMI) BMI Classification Vital Signs Temperature (97.8 F-99.1 F) 97 F L Temperature Source Temporal Pulse Rate (60-100) 89 Pulse Location Monitor Respiratory Rate (12-18) 16 Respiratory rate source Observation Oxygen Delivery Method Room Air Blood Pressure (90/60-120/80) 126/78 H Blood Pressure Mean (mm Hg) 94 Source Monitor Position Sitting Blood Pressure Location History Since Last Visit- (Skip if this is Patient's initial visit) Have you changed medications since your No last visit? Any new allergies or adverse reactions No Had a fall/change in ADL's that may No increase risk of falls Signs or symptoms of abuse and/or No neglect since last visit Have you been in the hospital since your No last visit? Has dressing in place as prescribed Has compression in place as prescribed Has offloadiing in place as prescribed Yes Experienced any changes in pain level or management Left Footwear Custom Shoe Right Footwear Custom Shoe Pain Scale: 0-10 Numeric Is Patient Pain Free? Yes WC - Nurse 1 - General Ulcer Measurement Start: 04/13/22 08:18 Freq: Status: Active Protocol: Activity Type Activity Date Activity User E-sign Co-sign Detail Recorded Client Recorded Date Recorded By Document 04/13/22 08:18 DL Desktop 04/13/22 08:26 DL Document 04/20/22 08:06 [facility] [id number] 04/20/22 08:10 [facility] Document 04/27/22 08:24 [facility] [id number] 04/27/22 08:29 BM Document 05/04/22 08:26 [facility] [id number] 05/04/22 08:32 [facility] 04/13/22 04/20/22 04/27/22 08:18 08:06 08:24 Wound Center Nurse 1 #1- L DORSAL FOOT POST OP -Combined with other wound No No -Current Size (cm) - Length 0.8 0.1 0.1 -Current Size (cm) - Width 0.8 0.1 0.1 -Current Size (cm) - Depth 0.1 0.1 0.1 -Total Square Cm 0.64 0.01 0.01 -Date of Last Picture (Recall this 04/20/22 field) -Photo Taken No Yes -Epithelialization Large 67-100% -Tunneling No -Undermining/Tunneling No -Circular Undermining No -Exudate Amt Small None Present Small -Exudate Type Serosanguineous Serosanguineous -Wound Margin Distinct, Distinct, Distinct, Outline Outline Outline Attached Attached Attached -Granulation Amt Large (67-100%) Medium (34-66%) -Granulation Quality [place] -Slough/Fibrin Yes Yes -Necrosis Amt Small (1-33%) Small (1-33%) Small (1-33%) -Necrotic Tissue Type Adherent Slough Eschar Adherent Slough -Structure Exposed N/A N/A -Texture ([place]-wound Skin Appearance) Scarring Scarring Assessed, Scarring -Moisture ([place]-wound Skin Appearance) Dry/Scaly Dry/Scaly Assessed -Color ([place]-wound Skin Appearance) No Abnormality Assessed Assessed -Temperature ([place]-wound Skin No Abnormality No Abnormality No Abnormality Appearance) (Pt Warm) (Pt Warm) (Pt Warm) -Tenderness on Palpation ([place]-wound No No No Skin Appearance) -Ulcer Cleansing Soap and Water Soap and Water Wound Cleanser -Foul Odor after Cleansing No No No -Anesthetic Used 5% Lidocaine 5% Lidocaine 5% Lidocaine Gel Gel Gel Lower Limb Edema Present Yes Right Calf (cm) 32 Right Ankle (cm) 21.5 Left Calf (cm) 32.5 33.9 Left Ankle (cm) 22.5 23.1 05/04/22 08:26 Wound Center Nurse 1 #1- L DORSAL FOOT POST OP -Combined with other wound -Current Size (cm) - Length -Current Size (cm) - Width -Current Size (cm) - Depth -Total Square Cm -Date of Last Picture (Recall this field) -Photo Taken -Epithelialization -Tunneling -Undermining/Tunneling -Circular Undermining -Exudate Amt -Exudate Type -Wound Margin -Granulation Amt -Granulation Quality -Slough/Fibrin -Necrosis Amt -Necrotic Tissue Type -Structure Exposed -Texture ([place]-wound Skin Appearance) -Moisture ([place]-wound Skin Appearance) -Color ([place]-wound Skin Appearance) -Temperature ([place]-wound Skin Appearance) -Tenderness on Palpation ([place]-wound Skin Appearance) -Ulcer Cleansing -Foul Odor after Cleansing -Anesthetic Used Lower Limb Edema Present Yes Right Calf (cm) Right Ankle (cm) Left Calf (cm) 35.8 Left Ankle (cm) 23.1 WC - Nurse 2 - General Ulcer CM Notes Start: 04/13/22 08:18 Freq: Status: Active Protocol: Activity Type Activity Date Activity User E-sign Co-sign Detail Recorded Client Recorded Date Recorded By Document 04/13/22 08:43 MW [id number] 04/13/22 08:52 MW Document 04/20/22 08:40 JF [id number] 04/20/22 08:48 JF Document 04/27/22 08:49 JF [id number] 04/27/22 08:51 JF Document 05/04/22 08:40 JF [id number] 05/04/22 08:41 JF 04/13/22 04/20/22 04/27/22 08:43 08:40 08:49 Wound Center Nurse 2 #1- L DORSAL FOOT POST OP -Time 08:43 08:42 -Correct Patient Yes Yes No -Correct Side, Site, Position Yes Yes No -Correct Procedure Yes Yes No -Procedure Performed Yes Yes No -Type of Procedure Debridement Debridement -Clinical Debridement Subcutaneous Subcutaneous -Tissue Removed Epidermis, Subcutaneous Subcutaneous -Post Debridement (cm) - Length 2.5 0.3 0 -Post Debridement (cm) - Width 0.9 0.4 0 -Post Debridement (cm) - Depth 0.1 0.1 0 -Total Square (Post) (cm) 2.25 0.12 0 -Area of Debridement (cm) - Length 2.5 0.3 0 -Area of Debridement (cm) - Width 0.9 0.4 0 -Total Square (Area) (cm) 2.25 0.12 0 -Tunneling No No -Undermining/Tunneling No No -Circular Undermining No No -Wound/Ulcer Outcome Not Healed Not Healed Healed- Epithelialized -Ulcer Cleansing Rinsed/ Rinsed/ Irrigated with Irrigated with Saline Saline -Foul Odor after Cleansing No No -Bioengineered Tissue Yes Yes -Type of Bioengineered Tissue Epifix 18mm Epifix 18mm Disc Disc -Expiration Date 01/06/27 01/06/27 -Product Lot Number [id number] -Percent Used 100 100 -Lot number of Saline Used [id number] -Bleeding Controlled with Pressure Pressure -Treatment Response Procedure Procedure Tolerated Well Tolerated Well -Offloading No Yes -Type of Offloading Camwalker -Debridement - Subq, 1st 20sq cm No No -Apply Skin Sub - 1st 25 sq cm - Feet 1 1 -Epifix 18mm Disc 3 3 Pain Scale: 0-10 Numeric Is Patient Pain Free? Yes Yes Yes 05/04/22 08:40 Wound Center Nurse 2 #1- L DORSAL FOOT POST OP -Time -Correct Patient -Correct Side, Site, Position -Correct Procedure -Procedure Performed -Type of Procedure -Clinical Debridement -Tissue Removed -Post Debridement (cm) - Length -Post Debridement (cm) - Width -Post Debridement (cm) - Depth -Total Square (Post) (cm) -Area of Debridement (cm) - Length -Area of Debridement (cm) - Width -Total Square (Area) (cm) -Tunneling -Undermining/Tunneling -Circular Undermining -Wound/Ulcer Outcome -Ulcer Cleansing -Foul Odor after Cleansing -Bioengineered Tissue -Type of Bioengineered Tissue -Expiration Date -Product Lot Number -Percent Used -Lot number of Saline Used -Bleeding Controlled with -Treatment Response -Offloading -Type of Offloading -Debridement - Subq, 1st 20sq cm -Apply Skin Sub - 1st 25 sq cm - Feet -Epifix 18mm Disc Pain Scale: 0-10 Numeric Is Patient Pain Free? Yes - Nurse 3 - General Ulcer D/C NN Start: 04/13/22 08:18 Freq: Status: Active Protocol: Activity Type Activity Date Activity User E-sign Co-sign Detail Recorded Client Recorded Date Recorded By Document 04/13/22 08:52 MW [id number] 04/13/22 08:54 MW Document 04/20/22 09:01 MW [id number] 04/20/22 09:02 MW Document 05/04/22 08:42 JF [id number] 05/04/22 08:42 JF 04/13/22 04/20/22 05/04/22 08:52 09:01 08:42 Wound Care Nurse 3 #1- L DORSAL FOOT POST OP -Ulcer Cleansing Not Cleansed Not Cleansed -Other Dressing abd -Other Covering ABD Left -Lotion applied to leg before Yes No compression wrap -Multi-Layered Wrap Application Multi-Layer Multi-Layer Comp - Left ($) Comp - Left ($) Treatment Response Procedure Procedure Tolerated Well Tolerated Well Pain Scale: 0-10 Numeric Is Patient Pain Free? Yes Yes Yes Teaching: Wound Center Skin Care -Person Taught Patient,Family -Teaching Method Discussion -Response to teaching Verbalize understanding Compression Wraps & Stockings -Person Taught Patient,Family -Teaching Method Discussion, Demonstration -Response to teaching Verbalize understanding Dressing Your Wound -Person Taught Patient -Teaching Method Discussion -Response to teaching Verbalize understanding WC - Visit Discharge Discharge Condition Stable Stable Stable Ambulatory Status Walker Wheelchair Ambulatory, Wheelchair Transportation Private Auto Private Auto Accompanied by MOM dad Medication Reconcilliation completed & No No Yes provided to patient/care provider Clinical Summary of Care Provided Yes Yes Yes Assessment/Plan Assessment/Plan (1) Osteomyelitis of ankle or foot, left, acute: CODE(S): M86.172 - Other acute osteomyelitis, left ankle and foot PLAN: Patient examined evaluated, all fine discussed patient detail. Patient's left foot wound is healed at this time. Patient brought in his Audio[employer] walking boot. I ensured adequate fit of his Audio[employer]atch walking boot to his left foot and ankle. Adequate fit was noted. At this time I recommend that the patient transitions into an ambulatory status with protected weightbearing in his AudioCatch walking boot on the left assisted by a walker. Patient will initiate ambulation for transfer purposes within his house to the kitchen, bathroom, to the end of his driveway. He will check his left lower extremity ensure no sites of irritation after performing this ambulation. Over time he will gradually increase his ambulation by 10% weekly. Patient will follow up in 3 weeks in my clinic as an outpatient but he will continue to check his left foot daily to ensure no sites of irritation or new wound formation or infection. (2) 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 muscle: CODE(S): L97.523 - 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 muscle (3) 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 muscle: CODE(S): L97.523 - 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 muscle
== END 2022-05-04 15:10 | disposition home or self-care (01) ==
LOC: WC 08:30
PROVIDERS: PCP Student in an Organized Health Care Education/Training Program; Visit Provider Podiatrist
DX: E11.628 Type 2 diabetes mellitus with other skin complications (principal); A48.0 Gas gangrene; E11.621 Type 2 diabetes mellitus with foot ulcer; L97.522 Non-pressure chronic ulcer of other part of left foot with fat layer exposed; M86.172 Other acute osteomyelitis, left ankle and foot; E11.610 Type 2 diabetes mellitus with diabetic neuropathic arthropathy
CPT/HCPCS: 15275; 29581; 99213; Q4186; G0463

== ENCOUNTER → 2022-06-26 | Outpatient (CLI) | payer BC, SELFPAY ==
--- NOTE | 2022-06-26 07:54 | CT_ITS ---
STUDY: CT RIGHT FOOT REASON FOR EXAM: Male, 42 years old. Charcot joint. Diabetes. Right foot pain. RADIATION DOSAGE (If Supplied By Facility): CTDIvol = ( 15.35 ) mGy, DLP = ( 440.30 ) mGycm TECHNIQUE: Thin section transaxial imaging of the foot was obtained, with sagittal and coronal reconstructed images. Individualized dose optimization techniques were used for this CT. COMPARISON: MRI of the left foot, November 16, 2021. Left foot, November 14, 2021 FINDINGS: Normal talus, calcaneus, and tarsal bones. Degenerative changes of the tibiotalar joint. There are erosive changes of the subtalar articulations. Talonavicular, calcaneocuboid, tarsal and tarsometatarsal articulations demonstrate degenerative change.. Normal metatarsi. Normal metatarsophalangeal joint of the great toe. Normal tibial and fibular sesamoid bones. Normal interphalangeal joint of the great toe. Normal phalanges of the great toe. Normal second through fifth metatarsophalangeal joints. Normal interphalangeal joints and phalanges of the lesser toes. There is soft tissue density about the ankle and hindfoot probable fluid within the talocalcaneal joint. There is diffuse soft tissue edema. CT/Extremity Lower without Contra IMPRESSION: Erosive changes of the subtalar articulations with widening of the joint space cortical loss and bony fragmentation. There is associated fluid density. Question osteomyelitis. There is no major change in the appearance of the foot when compared to the prior MR. Electronically Signed: Casey Renae DO at 18:43 EST ,
== END | disposition home or self-care (01) ==
PROVIDERS: PCP Student in an Organized Health Care Education/Training Program; Referring Provider Podiatrist; Visit Provider Podiatrist
DX: L97.512 Non-pressure chronic ulcer of other part of right foot with fat layer exposed (principal)
CPT/HCPCS: 73700

== ENCOUNTER 2022-06-29 08:15 | Outpatient (RCR) | payer BC, SELFPAY ==
[2022-06-15 08:08] VITALS: RESP 16; TEMP 36.1; BMI 34.8
--- NOTE | 2022-06-15 08:49 | PCM.WC.PN ---
History of Present Illness Date of Service: 06/15/22 Chief Complaint: Diabetic left foot infection with gas gangrene and osteomyelitis. History of Wound: 42-year-old male presents to clinic with new onset wound to the right lateral ankle. Patient had a severe left lower extremity Infection with prolonged wound care and nonweightbearing which is since healed. During this time patient better controlled his diabetes and lost a significant amount of weight. Patient has a varus deformity from an old infection debridement which has been offloaded by a [place] walking boot patient received a new [place] walking boot developed a new ulceration to his distal lateral malleolus presents today for follow-up on this. Patient denies constitutional symptoms or pain and has no other complaints. Objective Data Objective Data Vital Signs: Vital Signs Temp Resp O2 Del Method 96.9 F L 16 Room Air 06/15/22 08:08 06/15/22 08:08 06/15/22 08:08 Oxygen Delivery Method Room Air Weight: 113.398 kg Body Mass Index (BMI) 34.8 Physical Exam Narrative Neurovascular status unchanged from previous visit. Dermatologic: Full-thickness wound noted to the distal lateral malleolus stable 100% granular wound base clean skin edges no signs of infection deep probing or undermining. Musculoskeletal: Rigid ankle and hindfoot varus deformity secondary to loss of function of the peroneus brevis tendon which is the apex of wound formation. Debridement Note Debridement Note Post-Debridement Measurements and Additional Note: Post-Debridement Measurements/Treatment - Nurse 1 - General Ulcer Assessment Start: 06/15/22 08:08 Freq: Status: Active Protocol: MARY.LOWRUPINDER Activity Type Activity Date Activity User E-sign Co-sign Detail Recorded Client Recorded Date Recorded By Document 06/15/22 08:08 [facility] [id number] 06/15/22 08:14 [facility] 06/15/22 08:08 - Today's Visit Information Type of service Initial Visit Arrival Mode Ambulatory, Walker Transfer Assistance None Patient Identification Verified (Name & Yes ) Patient Requires Transmission-Based No Precautions Finger Stick Blood Sugar(mg/dl) (if 100 indicated): Blood Sugar Stated by Patient Height and Weight Height 5 ft 11 in Weight 113.398 kg Weight in Pounds 250.0 lbs Weight Measurement Method Estimated by Patient Body Mass Index (BMI) 34.8 BMI Classification Obese BSA - Johnnie 2.32 Vital Signs Temperature (97.8 F-99.1 F) 96.9 F L Temperature Source Temporal Pulse Location Monitor Respiratory Rate (12-18) 16 Respiratory rate source Observation Oxygen Delivery Method Room Air Source Monitor Position Sitting Blood Pressure Location Left Arm History Since Last Visit- (Skip if this is Patient's initial visit) Left Footwear Other Footwear (Comment) Right Footwear Other Footwear (Comment) Other Footwear custom splinting Pain Scale: 0-10 Numeric Is Patient Pain Free? Yes WC - Nurse 1 - General Ulcer Measurement Start: 06/15/22 08:08 Freq: Status: Active Protocol: Activity Type Activity Date Activity User E-sign Co-sign Detail Recorded Client Recorded Date Recorded By Document 06/15/22 08:08 [facility] [id number] 06/15/22 08:14 [facility] 06/15/22 08:08 Wound Center Nurse 1 #3- R LATERAL ANKLE -Combined with other wound No -Current Size (cm) - Length 1 -Current Size (cm) - Width 0.5 -Current Size (cm) - Depth 0.1 -Total Square Cm 0.5 -Date of Last Picture (Recall this 06/15/22 field) -Photo Taken Yes -Epithelialization None Present -Tunneling No -Undermining/Tunneling No -Circular Undermining No -Exudate Amt Small -Exudate Type Serosanguineous -Wound Margin Distinct, Outline Attached -Granulation Amt Large (67-100%) -Granulation Quality Red -Slough/Fibrin Yes -Necrosis Amt Small (1-33%) -Necrotic Tissue Type Adherent Slough -Texture ([place]-wound Skin Appearance) Assessed, Localized Edema ,Scarring -Moisture ([place]-wound Skin Appearance) Assessed -Color ([place]-wound Skin Appearance) Assessed -Temperature ([place]-wound Skin No Abnormality Appearance) (Pt Warm) -Tenderness on Palpation ([place]-wound No Skin Appearance) -Ulcer Cleansing Rinsed/ Irrigated with Saline -Foul Odor after Cleansing No -Anesthetic Used 5% Lidocaine Gel Lower Limb Edema Present Yes Right Calf (cm) 38.2 Right Ankle (cm) 23.7 WC - Nurse 2 - General Ulcer CM Notes Start: 06/15/22 08:08 Freq: Status: Active Protocol: Activity Type Activity Date Activity User E-sign Co-sign Detail Recorded Client Recorded Date Recorded By Document 06/15/22 08:35 [id number] 06/15/22 08:37 BRIAN 06/15/22 08:35 Wound Center Nurse 2 #3- R LATERAL ANKLE -Time 08:36 -Correct Patient Yes -Correct Side, Site, Position Yes -Correct Procedure Yes -Procedure Performed Yes -Type of Procedure Debridement -Clinical Debridement Subcutaneous -Tissue Removed Subcutaneous -Post Debridement (cm) - Length 1.1 -Post Debridement (cm) - Width 0.6 -Post Debridement (cm) - Depth 0.1 -Total Square (Post) (cm) 0.66 -Area of Debridement (cm) - Length 1.1 -Area of Debridement (cm) - Width 0.6 -Total Square (Area) (cm) 0.66 -Tunneling No -Undermining/Tunneling No -Circular Undermining No -Wound/Ulcer Outcome Not Healed -Ulcer Cleansing Rinsed/ Irrigated with Saline -Foul Odor after Cleansing No -Bioengineered Tissue No -Bleeding Controlled with Pressure -Treatment Response Procedure Tolerated Well -Offloading Yes -Type of Offloading Camwalker -Debridement - Subq, 1st 20sq cm Yes Pain Scale: 0-10 Numeric Is Patient Pain Free? Yes WC - Nurse 3 - General Ulcer D/C NN Start: 06/15/22 08:08 Freq: Status: Active Protocol: Activity Type Activity Date Activity User E-sign Co-sign Detail Recorded Client Recorded Date Recorded By Document 06/15/22 08:44 [place] [id number] 06/15/22 08:46 [place] 06/15/22 08:44 Wound Care Nurse 3 #3- R LATERAL ANKLE -Ulcer Cleansing Rinsed/ Irrigated with Saline -Primary Dressing Applied C Hydrogel ($) -Primary Dressing Covered/Secured with Dry Gauze, Secured with Tape Right -Tubular Bandage Single Layer -Size of Tubigrip Used Size D -Size D ($) 1 Pain Scale: 0-10 Numeric Is Patient Pain Free? Yes WC - Visit Discharge Discharge Condition Stable Ambulatory Status Ambulatory Transportation Private Auto Medication Reconcilliation completed & No provided to patient/care provider Clinical Summary of Care Provided Yes Notes: pt verbalized understanding of new dressing orders. Assessment/Plan Assessment/Plan (1) Type 2 diabetes mellitus with diabetic polyneuropathy: CODE(S): E11.42 - Type 2 diabetes mellitus with diabetic polyneuropathy PLAN: Exam performed New onset wound secondary to [place] boot and varus deformity of hindfoot on right lower extremity. Recommended patient return to previous [place] boot which did not cause any wounds. Order for modification to right [place] boot to better offload the distal lateral malleolus Right lower extremity wound was excisionally debrided down to including level of subcutaneous tissue of all nonviable tissue using a 5 mm dermal curette. No anesthesia due to neuropathy. Hemostasis with light compression. Patient tolerated procedure well. Pre and postdebridement measurements document nursing notes. Patient will continue daily dressing changes DSD double Tubigrip Detailed discussion regarding reconstruction of the right hindfoot deformity. This discussion included options including observation, continued conservative treatment, surgical management. At this time I recommend that we release the medial ankle structures soft tissue as well as the posterior soft tissue and perform a TTC fusion with an intramedullary nail plus minus external fixation. As preoperative screening we will order a CT scan and follow-up with the patient 2 weeks (2) Non-pressure chronic ulcer of right 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: CODE(S): L97.312 - Non-pressure chronic ulcer of right 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
[2022-06-29 08:07] VITALS: BP 138/75; PULSE 90; RESP 16; TEMP 36.3; BMI 34.8
--- NOTE | 2022-06-29 09:04 | PCM.WC.PN ---
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 History of Wound: 42-year-old male presents to clinic with new onset wound to the right lateral ankle. Patient had a severe left lower extremity Infection with prolonged wound care and nonweightbearing which is since healed. During this time patient better controlled his diabetes and lost a significant amount of weight. Patient has a varus deformity from an old infection debridement which has been offloaded by a [place] walking boot patient received a new [place] walking boot developed a new ulceration to his distal lateral malleolus presents today for follow-up on this. Patient denies constitutional symptoms or pain and has no other complaints. Wound healed today. Objective Data Objective Data Vital Signs: Vital Signs Temp Pulse Resp BP O2 Del Method 97.3 F L 90 16 138/75 H Room Air 06/29/22 08:07 06/29/22 08:07 06/29/22 08:07 06/29/22 08:07 06/29/22 08:07 Oxygen Delivery Method Room Air Weight: 113.398 kg Body Mass Index (BMI) 34.8 Physical Exam Narrative Neurovascular status unchanged from previous visit. Dermatologic: Full-thickness wound healed Musculoskeletal: Rigid ankle and hindfoot varus deformity secondary to loss of function of the peroneus brevis tendon which is the apex of wound formation. Debridement Note Debridement Note Post-Debridement Measurements and Additional Note: Post-Debridement Measurements/Treatment - Nurse 1 - General Ulcer Assessment Start: 06/15/22 08:08 Freq: Status: Active Protocol: MARY.LOWRUPINDER Activity Type Activity Date Activity User E-sign Co-sign Detail Recorded Client Recorded Date Recorded By Document 06/15/22 08:08 [facility] [id number] 06/15/22 08:14 [facility] Document 06/29/22 08:07 [id number] 06/29/22 08:12 06/15/22 06/29/22 08:08 08:07 - Today's Visit Information Type of service Initial Visit Follow-up Visit (Physician/FLOWER STRIPPER ) Arrival Mode Ambulatory, Ambulatory, Walker Walker Transfer Assistance None None Accompanied by self Patient Identification Verified (Name & Yes Yes ) Patient Requires Transmission-Based No No Precautions Safety Precautions NA Finger Stick Blood Sugar(mg/dl) (if 100 100 indicated): Blood Sugar Stated by Stated by Patient Patient Height and Weight Height 5 ft 11 in Weight 113.398 kg Weight in Pounds 250.0 lbs Weight Measurement Method Estimated by Patient Body Mass Index (BMI) 34.8 34.8 BMI Classification Obese Obese BSA - Johnnie 2.32 Vital Signs Temperature (97.8 F-99.1 F) 96.9 F L 97.3 F L Temperature Source Temporal Temporal Pulse Rate (60-100) 90 Pulse Location Monitor Monitor Respiratory Rate (12-18) 16 16 Respiratory rate source Observation Observation Oxygen Delivery Method Room Air Room Air Blood Pressure (90/60-120/80) 138/75 H Blood Pressure Mean (mm Hg) 96 Source Monitor Monitor Position Sitting Sitting Blood Pressure Location Left Arm Left Arm History Since Last Visit- (Skip if this is Patient's initial visit) Have you changed medications since your No last visit? Any new allergies or adverse reactions No Had a fall/change in ADL's that may No increase risk of falls Signs or symptoms of abuse and/or No neglect since last visit Have you been in the hospital since your No last visit? Has dressing in place as prescribed Yes Has compression in place as prescribed N/A Has offloadiing in place as prescribed N/A Experienced any changes in pain level or No management Left Footwear Other Footwear Removable Cast (Comment) Walker/Walking Boot Right Footwear Other Footwear Removable Cast (Comment) Walker/Walking Boot Other Footwear custom splinting Pain Scale: 0-10 Numeric Is Patient Pain Free? Yes Yes WC - Nurse 1 - General Ulcer Measurement Start: 06/15/22 08:08 Freq: Status: Active Protocol: Activity Type Activity Date Activity User E-sign Co-sign Detail Recorded Client Recorded Date Recorded By Document 06/15/22 08:08 [facility] [id number] 06/15/22 08:14 [facility] Document 06/29/22 08:07 [id number] 06/29/22 08:12 06/15/22 06/29/22 08:08 08:07 Wound Center Nurse 1 #3- R LATERAL ANKLE -Combined with other wound No No -Current Size (cm) - Length 1 0.1 -Current Size (cm) - Width 0.5 0.1 -Current Size (cm) - Depth 0.1 0.1 -Total Square Cm 0.5 0.01 -Date of Last Picture (Recall this 06/15/22 06/29/22 field) -Photo Taken Yes Yes -Epithelialization None Present Large 67-100% -Tunneling No No -Undermining/Tunneling No No -Circular Undermining No No -Exudate Amt Small None Present -Exudate Type Serosanguineous -Wound Margin Distinct, Outline Attached -Granulation Amt Large (67-100%) None Present (0 %) -Granulation Quality Red N/A -Slough/Fibrin Yes No -Necrosis Amt Small (1-33%) None Present (0 %) -Necrotic Tissue Type Adherent Slough -Structure Exposed N/A -Texture ([place]-wound Skin Appearance) Assessed, Assessed, Localized Edema Localized Edema ,Scarring ,Scarring -Moisture ([place]-wound Skin Appearance) Assessed No Abnormality, Assessed -Color ([place]-wound Skin Appearance) Assessed No Abnormality, Assessed -Temperature ([place]-wound Skin No Abnormality No Abnormality Appearance) (Pt Warm) (Pt Warm) -Tenderness on Palpation ([place]-wound No No Skin Appearance) -Ulcer Cleansing Rinsed/ Rinsed/ Irrigated with Irrigated with Saline Saline -Foul Odor after Cleansing No No -Anesthetic Used 5% Lidocaine Gel Lower Limb Edema Present Yes No Right Calf (cm) 38.2 Right Ankle (cm) 23.7 WC - Nurse 2 - General Ulcer CM Notes Start: 06/15/22 08:08 Freq: Status: Active Protocol: Activity Type Activity Date Activity User E-sign Co-sign Detail Recorded Client Recorded Date Recorded By Document 06/15/22 08:35 [id number] 06/15/22 08:37 Document 06/29/22 08:37 [id number] 06/29/22 08:37 06/15/22 06/29/22 08:35 08:37 Wound Center Nurse 2 #3- R LATERAL ANKLE -Time 08:36 -Correct Patient Yes No -Correct Side, Site, Position Yes No -Correct Procedure Yes No -Procedure Performed Yes No -Type of Procedure Debridement -Clinical Debridement Subcutaneous -Tissue Removed Subcutaneous -Post Debridement (cm) - Length 1.1 0 -Post Debridement (cm) - Width 0.6 0 -Post Debridement (cm) - Depth 0.1 0 -Total Square (Post) (cm) 0.66 0 -Area of Debridement (cm) - Length 1.1 0 -Area of Debridement (cm) - Width 0.6 0 -Total Square (Area) (cm) 0.66 0 -Tunneling No -Undermining/Tunneling No -Circular Undermining No -Wound/Ulcer Outcome Not Healed Healed- Epithelialized -Ulcer Cleansing Rinsed/ Irrigated with Saline -Foul Odor after Cleansing No -Bioengineered Tissue No -Bleeding Controlled with Pressure -Treatment Response Procedure Tolerated Well -Offloading Yes -Type of Offloading Camwalker -Debridement - Subq, 1st 20sq cm Yes Pain Scale: 0-10 Numeric Is Patient Pain Free? Yes Yes - Nurse 3 - General Ulcer D/C NN Start: 06/15/22 08:08 Freq: Status: Active Protocol: Activity Type Activity Date Activity User E-sign Co-sign Detail Recorded Client Recorded Date Recorded By Document 06/15/22 08:44 CO [id number] 06/15/22 08:46 CO Document 06/29/22 08:43 [id number] 06/29/22 08:44 06/15/22 06/29/22 08:44 08:43 Wound Care Nurse 3 #3- R LATERAL ANKLE -Ulcer Cleansing Rinsed/ Irrigated with Saline -Primary Dressing Applied C Hydrogel ($) -Primary Dressing Covered/Secured with Dry Gauze, Secured with Tape Right -Tubular Bandage Single Layer -Size of Tubigrip Used Size D -Size D ($) 1 Pain Scale: 0-10 Numeric Is Patient Pain Free? Yes Yes - Visit Discharge Discharge Condition Stable Stable Ambulatory Status Ambulatory Ambulatory Transportation Private Auto Private Auto Medication Reconcilliation completed & No Yes provided to patient/care provider Clinical Summary of Care Provided Yes Yes Notes: pt verbalized [place] boot understanding applied by of new dressing patient. orders. Patient discharged from the Wound center but will follow up [facility] for possible surgery in 2022. Patient is to obtain his arterial doppler prior to the surgery. Assessment/Plan Assessment/Plan (1) Type 2 diabetes mellitus with diabetic polyneuropathy: CODE(S): E11.42 - Type 2 diabetes mellitus with diabetic polyneuropathy PLAN: Exam performed New onset wound secondary to [place] boot and varus deformity of hindfoot on right lower extremity. Recommended patient return to previous [place] boot which did not cause any wounds. Order for modification to right [place] boot to better offload the distal lateral malleolus Right lower extremity wounds healed. CT scan demonstrates varus malalignment Charcot deformity of the ankle and subtalar joint relative to the leg. We will plan for stage reconstruction including soft tissue release application of external fixator followed by TTC fusion likely supplemented with femoral head allograft. Patient will continue bilateral [place] boot and Tubigrip for edema management follow-up in my clinic in 1 month. (2) Non-pressure chronic ulcer of right 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: CODE(S): L97.312 - Non-pressure chronic ulcer of right 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
== END 2022-07-07 23:59 | disposition home or self-care (01) ==
LOC: WC 08:15
PROVIDERS: PCP Student in an Organized Health Care Education/Training Program; Visit Provider Podiatrist
DX: E11.628 Type 2 diabetes mellitus with other skin complications (principal); A48.0 Gas gangrene; L97.312 Non-pressure chronic ulcer of right 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; M86.172 Other acute osteomyelitis, left ankle and foot; E11.42 Type 2 diabetes mellitus with diabetic polyneuropathy
CPT/HCPCS: 11042; 99213; G0463

== ENCOUNTER 2022-07-09 07:44 | Outpatient (RCR) | payer BC, SELFPAY ==
[2022-07-08 00:40] VITALS: BP 138/75; PULSE 90; RESP 16; TEMP 36.3; BMI 34.8
--- NOTE | 2022-07-09 07:46 | ART_ITS ---
Reason For Study: PVD Procedure A bilateral lower extremity continuous wave Doppler with analog waveform analysis,segmental pressures,and ankle brachial indexes without exercise. Left Segmental Pressures Left brachial= 112mmHg. Left posterior tibial artery = 117mmHg. Left dorsalis pedis artery = 130mmHg. Left digit = 92 mmHg. The left posterior tibial artery waveforms are biphasic. The left dorsalis pedis waveforms are triphasic. Right Segmental Pressures Right brachial= 112mmHg. Right posterior tibial artery = 135mmHg. Right dorsalis pedis artery = 124mmHg. Right digit = 78 mmHg. The right posterior tibial artery waveforms are biphasic. The right dorsalis pedis waveforms are triphasic. Indices The right ankle brachial index by the posterior tibial artery is 1.21. The right ankle brachial index by the dorsalis pedis is 1.11. The right digital-brachial index is 0.70. The left ankle brachial index by the posterior tibial artery is 1.04. The left ankle brachial index by the dorsalis pedis is 1.16. The left digital-brachial index is 0.82. VL/Lower Ext Art Exam w/o Exercis Interpretation Summary Triphasic and biphasic Doppler waveforms are noted at ankle level bilaterally. Pulse-volume recordings appear diminished at digital level bilaterally, but satisfactory at all other levels bilaterally. Resting ankle-brachial indices are normal bilaterally. Digital-bra chial indices are normal bilaterally. There is no evidence of significant arterial occlusive disease in the lower ext remities bilaterally. Ordering Physician: Juan Perkins Referring Physician: JUAN PERKINS DPM Performed By: Marty Lackey RVT
== END 2022-07-09 23:59 | disposition home or self-care (01) ==
LOC: WC 07:44
PROVIDERS: PCP Student in an Organized Health Care Education/Training Program; Visit Provider Podiatrist
DX: I73.9 Peripheral vascular disease, unspecified (principal)
CPT/HCPCS: 93923

== ENCOUNTER 2022-08-24 16:56 | Outpatient (CLI) | payer BC, SELFPAY ==
[2022-08-24 18:01] LABS: Absolute Lymphocyte Count 1.36 X10^3/uL (0.83-4.51); Absolute Neutrophil Count 3.1 X10^3/uL (2.0-7.7); Basophil# 0.04 X10^3/uL; Basophil% 0.7 % (0-1); Eosinophil# 0.49 X10^3/uL; Eosinophils% 8.9 % (0-5); Hematocrit 50.5 % (40-54); Hemoglobin 16.6 g/dL (13.0-16.5); Lymphocyte # 1.36 X10^3/ul (0.83-4.51); Lymphocyte % 24.7 % (19-41); Mean Corp Hgb Conc 32.9 g/dL (32-36); Mean Corpuscular Hgb 28.6 pg (27.0-32.0); Mean Corpuscular Volume 86.9 fL (80-94); Mean Platelet Vol. 9.6 fl (6.2-12.0); Monocyte% 9.1 % (0-10); NRBC Flagged by Analyzer 0 % (0-5); Neutrophil % 56.4 % (47-70); Platelet Count 246 K/mm3 (150-450); RBC Distribution Width CV 13.2 % (11.6-14.6); RBC Distribution Width SD 42.3 fl (35.1-43.9); Red Blood Count 5.81 M/mm3 (4.6-6.2); White Blood Count 5.5 K/mm3 (4.4-11.0)
[2022-08-24 18:21] LABS: ALB/GLOB Ratio 1.1 RATIO (0.9-2.4); AST(SGOT) 19 U/L (15-37); Alanine Aminotransfer ALT/SGPT 37 U/L (16-61); Alkaline Phosphatase 90 U/L (45-117); Anion Gap 10 (5-15); BUN 29 mg/dL (7-18); BUN/Creat Ratio 30.9 RATIO (10-20); Calcium,Total 9.5 mg/dL (8.5-10.1); Chloride 104 mmol/L (98-107); Creatinine, Serum 0.94 mg/dL (0.70-1.30); EST Glomerular Filtration Rate 95 mL/min (>60); Est Glom Filt Rate - Afr Amer 114 mL/min (>60); Globulin 3.5 g/dL (2.2-4.2); Glucose 105 mg/dL (74-106); Potassium 4.1 mmol/L (3.5-5.1); Protein, Total 7.5 g/dL (6.4-8.2); Sodium Level 142 mmol/L (136-145)
== END 2022-08-24 23:59 | disposition home or self-care (01) ==
PROVIDERS: PCP Student in an Organized Health Care Education/Training Program; Visit Provider Family Medicine
DX: Z01.818 Encounter for other preprocedural examination (principal)
CPT/HCPCS: 36415; 80053; 85025

== ENCOUNTER 2022-09-17 12:54 | Observation (INO) | payer BC, SELFPAY ==
[2022-09-17] VITALS (11 sets, daily range): BP systolic 93–123; BP diastolic 58–80; PULSE 80–94; RESP 15–18; TEMP 36.2–37.1; O2SAT 90–99; BMI 37.2
--- NOTE | 2022-09-17 06:30 | RAD_ITS ---
STUDY: X-RAY - RIGHT ANKLE REASON FOR EXAM: Male, 42 years old. Intraprocedural digital documentation views. TECHNIQUE: 12 intraoperative digital documentation views. . COMPARISON: None. FINDINGS: Distal intramedullary tibial vance with fusion at the tibiotalar and subtalar joints with large cancellus screw placed through the calcaneus from posterior to anterior. Osteoarthritic changes. RAD/Ankle 2 Views IMPRESSION: Intraoperative digital documentation views. Electronically Signed: Fredis Govea, at 13:00 EST ,
[2022-09-17] MEDS: Lactated Ringers 1,000 ML 15 ML IV ×2 (06:35→13:01)
--- NOTE | 2022-09-17 07:30 | BON_PTH ---
PATIENT: SNEHA WEI Jr. LOC: MS3 U#:[id number] AGE/SX: 42/M ROOM: [facility] RE09/17/[address]: MASON ZimmerM : 1980 BED: 1 DIS: 09/18/2022 SPEC #: [id number] RECD: 09/17/22 13:17 STATUS: [place] RE #: [id number] DEREK: 09/17/22 07:[address]: Jordi Perkins DEPT: SURGICAL PATHOLOGY RECD BY: Lizabeth Li ENTERED: 09/20/22 11:18 SP TYPE: Bone OTHR DR: MD Dr. Cameron Michele Dr., DO Dr. Efewongbe Oleghe, MD Dr. Loren Kirchner, MD Dr. Michael Halko, DO Rowena Johnson Dr., CLAIRE-[address], [employer] COACH-C ROCÍO Burroughs Tissues: Bone of foot, NOS Procedures: Decalcification bone/plaque Surgery Specimen Level III HEADER OPERATION: Tibiotalocalcaneal arthrodesis with posterior and medial PRE-OP DIAGNOSIS: Right foot Charcot foot TISSUE SUBMITTED: Bone right foot MICROSCOPIC DIAGNOSIS Bone right foot, tibiotalocalcaneal arthrodesis: Pieces of bone with focal reactive changes. ANA LAURA:era 09/22/2022 MICROSCOPIC DESCRIPTION Slides are reviewed. GROSS DESCRIPTION Received in fixative is one container labeled with the patient's name and designated bone right foot. The specimen consists of four variable sized pieces of bone measuring in aggregate 8.0 x 8.0 x 3.0 cm. Payroll And Benefits Specialist sections are submitted in two cassettes after decalcification. / ANA LAURA:era 09/20/2022 :5 CPT: 43151, 01443
[2022-09-17] MEDS: Clindamycin 900 MG/50 ML BAG 75 MG IV (07:43)
[2022-09-17 07:55] LABS: Bedside Glucose 134 mg/dL (74-106)
[2022-09-17] MEDS: BACITRACIN/POLYMYXIN B 15 GM Tube 1 APPLIC (09:30)
--- NOTE | 2022-09-17 13:02 | PCM.OPRPT ---
Problems Associated Problem List Diagnoses (1) Charcot's joint, right ankle and foot: (2) Type 2 diabetes mellitus with diabetic polyneuropathy: (3) Acquired varus deformity of right ankle: Report of Operation Date of Procedure: 09/17/22 Pre-Operative Diagnosis: 1) Charcot foot with hindfoot equnovarus deformity Post-Operative Diagnosis: same Surgery/Procedure Performed:: 1) Posteromedial soft tissue release + achilles tenotomy on right 2) Tibiotalocalcaneal arthrodesis right Description of Surgical Findings:: Equina varus deformity right lower extremity presurgery. Postsurgery adequate reduction of the ankle with regards to the sagittal file and axial planes. There is reduction of the equinus deformity as well as a varus status post intramedullary nailing. Surgeon: Jordi Perkins vertical contour band saw operator: None (Sridevi Beverage) Type of Anesthesia: General/Regional Specimen's removed: Right ankle bone for pathology Estimated Blood Loss (mL): 200cc Description of Procedure: Patient is type II diabetic poorly controlled for prolonged period time suffered multiple infections to left lower extremity and right lower extremity which required operative debridement. Patient suffered Charcot event right lower extremity resulting in significant equinovarus deformity of that was nonambulatory. Patient uses a [place] walking boot to ambulate. Patient attempted to achieve a plantigrade foot and prevent any future ulcerations that may risk the patient's life or limb wish to proceed with tibial talocalcaneal arthrodesis via intramedullary nailing. Patient was brought directly in room placed comfortably in the supine position on the operating room table. All his prominences were offloaded to prevent any compression neuropraxia's. Well-padded right thigh tourniquet applied. Right lower extremity is positioned in bump to knock out any external hip rotation. Preoperatively patient received popliteal block. Patient was induced under general anesthesia in the right lower extremity scrubbed prepped and draped using typical aseptic fashion. Once cleared by anesthesia the right lower extremity was elevated and exsanguinated and tourniquet was inflated to 300 mmHg. Through a percutaneous incision in the posterior ankle a Achilles tenotomy was performed using a #11 blade atraumatically. This was flushed with copious amounts of normal sterile saline and closed with 2-0 Vicryl and robinson to skin. Attention was taken medially where the plan was initially to perform a medial malleoli are takedown with excision to allow for reduction of the deformity in the frontal plane. A linear incision was made from proximal to distal over the medial malleolus through the epidermis dermis into subcutaneous tissue using #15 blade any bleeders neurovascular bundles identified bleeders cauterized neurovascular bundles protected with blunt retraction. Due to significant and aberrant bone formation to the site the medial malleolus was difficult to visualize. Blunt dissection was taken down the level of the fascia where the medial malleolus was identified and resected using a sagittal saw. It was removed from its attachments including the anterior posterior and medial portions of the deltoid ligament. The tibialis posterior tendon was completely tenotomy. Attention was then taken laterally where an incision was made over the lateral malleolus running from proximal to distal. This incision was made using a #15 blade through the epidermis dermis into subcutaneous tissue blunt dissection was taken down the level of deep fascia and periosteal layer of bone. Any bleeders were identified cauterized. Neurovascular structures identified and protected with blunt retraction. A transverse osteotomy was performed just proximal to the distal tibial fibular syndesmosis using sagittal saw. The distal fibula was excised and entirety and sent to the back table. There is the lateral talar body was noted to be holding up the reduction as well as additional soft tissue attachments on the medial ankle. At this time a decision was made to make a laterally based wedge through the talar body to help reduce the varus deformity. This was made with a sagittal saw and resected with bone rongeurs performed atraumatically. Neurovascular structures were protected with blunt retraction at this time. Once this was performed we are able to reduce the ankle and subtalar joints with regards to the sagittal transverse and frontal planes. Was pinned in a corrected position with the ankle and foot at 90 degrees relative to the leg slight valgus alignment of the hindfoot. With slight external rotation. There is noted to be some residual metatarsus adductus deformity. Should be noted that joint prep was performed using solid cut resection ankle joint was noted to be fused) identifiable no additional preparation was performed at that level. Once the deformity was reduced and pinned in place using temporary fixation. The medullary nail was placed using manufactures guidelines. This was performed after sequential reaming was performed from 9 mm up to 12.5 mm and 11 mm 150 mm length nail was inserted using manufactures guidelines first the lateral talar locking screw was placed in the lateral locking position The jig was swung to the medial position and the 2 proximal medial tibial screws were placed using manufactures guidelines. Next attention was taken with the jig swung back into the lateral locking position with the lateral locking calcaneal screw was applied using manufactures guidelines. And lastly the posterior to anterior screw was placed using manufactures guidelines with the jig in the posterior locking position. Fluoroscopically imaging was noted that all screws were noted to be within the nail and that there was adequate reduction of the ankle and subtalar joint. AP axial and lateral radiographs were taken to confirm this. At this time any bone voids were filled with augments graft per [employer]. After confirmation of reduction and adequate hardware placement. Incision sites were flushed with copious amounts normal sterile saline. Wound closed using 2-0 Vicryl to deep 2-0 Vicryl buried interrupted to subcutaneous and stapled the skin this was performed to the lateral ankle incision medial ankle incision posterior ankle incision posterior heel and plantar heel incisions. It should be noted that the tourniquet was inflated for 2 hours initially and let down for 20 minutes in the middle of the case. Medicated and tourniquet was inflated for an additional 2 hours in the second half of the case and let down prior to incisional closure. Upon incisional closure there is noted to be neurovascular status intact to the digits of the right foot. Surgical sites were dressed with bacitracin Adaptic 4 x 4's Kerlix 4 inch Sal and a well-padded Bradford compression posterior splint Patient was transferred to PACU vital signs stable and vascular status intact all digits for further monitoring prior to discharge. Patient patient will be kept overnight for observation and likely discharge in the morning. Patient tolerated anesthesia procedure well with apparent satisfactory condition. Patient did demonstrate significant bleeding throughout the case and likely loss of approximately 200 cc of blood. There is noted to be a bleeder to the posterior ankle at the level of the Achilles tenotomy site. This was cauterized prior to incisional closure and adequate hemostasis was noted at that time. Patient was vitally stable throughout the case and had no concerns.
[2022-09-17 13:10] LABS: Bedside Glucose 183 mg/dL (74-106)
[2022-09-17 14:56] LABS: Absolute Lymphocyte Count 0.38 X10^3/uL (0.83-4.51); Absolute Neutrophil Count 8.3 X10^3/uL (2.0-7.7); Basophil# 0.01 X10^3/uL; Basophil% 0.1 % (0-1); Eosinophil# 0.01 X10^3/uL; Eosinophils% 0.1 % (0-5); Hematocrit 45.8 % (40-54); Hemoglobin 14.8 g/dL (13.0-16.5); Lymphocyte # 0.38 X10^3/ul (0.83-4.51); Lymphocyte % 4.3 % (19-41); Mean Corp Hgb Conc 32.3 g/dL (32-36); Mean Corpuscular Hgb 28.5 pg (27.0-32.0); Mean Corpuscular Volume 88.1 fL (80-94); Mean Platelet Vol. 9.2 fl (6.2-12.0); Monocyte# 0.09 X10^3/uL; NRBC Flagged by Analyzer 0 % (0-5); Neutrophil # 8.34 X10^3/uL (2.7-7.7); POSITIVE DIFFERENTIAL YES; Platelet Count 185 K/mm3 (150-450); RBC Distribution Width SD 42.1 fl (35.1-43.9); White Blood Count 8.9 K/mm3 (4.4-11.0)
[2022-09-17 15:44] LABS: ALB/GLOB Ratio 1.1 RATIO (0.9-2.4); AST(SGOT) 19 U/L (15-37); Alanine Aminotransfer ALT/SGPT 26 U/L (16-61); Albumin, Serum 3.5 g/dL (3.2-5.0); Alkaline Phosphatase 77 U/L (45-117); Anion Gap 6 (5-15); BUN 35 mg/dL (7-18); Chloride 106 mmol/L (98-107); Creatinine, Serum 1.25 mg/dL (0.70-1.30); EST Glomerular Filtration Rate 68 mL/min (>60); Est Glom Filt Rate - Afr Amer 82 mL/min (>60); Estimated Creatinine Clearance 83.67 ml/min; Globulin 3.1 g/dL (2.2-4.2); Glucose 189 mg/dL (74-106); Potassium 4.9 mmol/L (3.5-5.1); Protein, Total 6.6 g/dL (6.4-8.2); Sodium Level 139 mmol/L (136-145)
--- NOTE | 2022-09-17 15:54 | PN.HOSP_ITS ---
Reason for Visit Reason for Visit: Diagnoses Type 2 diabetes mellitus with diabetic polyneuropathy (09/17/22) Charcot's joint, right ankle and foot (09/17/22) Varus deformity, not elsewhere classified, right ankle (09/17/22) Subjective Subjective The patient is a 42 y/o M w/ PMHx: Diabetes mellitus type II with neuropathy, HTN, HLD, Obesity who presents to the [facility] on 09/17/22 for planned OR per Dr. Perkins Podiatry secondary to Charcot foot with hindfoot equinovarus deformity for planned posterior medial soft tissue release with an Achilles tenotomy on the right and a tibial talocalcaneal arthrodesis on the right. Postoperatively podiatry requested hospitalist consultation for medical management. Patient evaluated on the medical surgical floor and denied any pain to the right lower extremity as his block was still effective with sensation now down the thigh to the knee. Did evaluate the right lower extremity and there is a bright red blood on the very lower portion at the heel region which was reviewed with the nursing staff and requested that she place a compression dressing to that region and notify podiatry of these findings especially if it continued. Notified by nursing staff later also that bleeding had subsided but patient's blood pressure dropped into the 90s with no symptoms but did also have a reported 200 cc blood loss while in the OR. Patient denies any lightheadedness or dizziness, fevers, chills, nausea, emesis, abdominal pain, chest pain or dyspnea. Objective Data Objective Data Vital Signs: Vital Signs Temp Pulse Resp BP Pulse Ox O2 Del Method O2 Flow Rate 97.1 F L 88 18 106/72 99 Room Air 2 09/17/22 14:09 09/17/22 14:09 09/17/22 14:09/17/22 14:09/17/22 14:09/17/22 14:09/17/22 13:30 Oxygen Flow Rate (L/min) 2 Oxygen Delivery Method Room Air Weight: 266 lb 12.149 oz Body Mass Index (BMI) 37.2 Intake & Output: Intake and Output for Last 24 Hours 09/15/22 09/16/22 09/17/22 23:59 23:59 23:59 Intake Total 2049 / 2049 Output Total 600 / 600 Balance 1450 / 1450 Lab / Micro Data Result Diagrams: 09/17/22 14:43 09/17/22 14:43 Labs: Laboratory Results - last 24 hr 09/17/22 06:24: POC Glucose 134 H 09/17/22 12:48: POC Glucose 183 H 09/17/22 14:43: Sodium 139, Potassium 4.9, Chloride 106, Carbon Dioxide 27.0, Anion Gap 6, BUN 35 H, Creatinine 1.25, Estim Creat Clear Calc 83.67, Est GFR (MDRD) Af Amer 82, Est GFR (MDRD) Non-Af 68, BUN/Creatinine Ratio 28.0 H, Glucose 189 H, Calcium 9.0, Total Bilirubin 0.70, AST 19, ALT 26, Alkaline Phosphatase 77, Total Protein 6.6, Albumin 3.5, Globulin 3.1, Albumin/Globulin Ratio 1.1 Radiography Diagnostic Testing: Radiology Impression Ankle X-Ray 09/17/22 06:30 IMPRESSION: Intraoperative digital documentation views. Electronically Signed: Fredis Cuevase, at 13:00 EST Reading Location ID and State: [address] [place] [address] , Service support , Physical Exam Narrative Physical Examination: General: Awake, alert, oriented x 3 and cooperative, seated upright in MS bed, no complaints, block still mostly intact right lower extremity Skin: Normal color, normal turgor, no icterus, no cyanosis except for notable bright red blood bleeding at the heel region through the OR dressing. HEENT: AT/NC, EOMI, PERRLA, MMM, no carotid bruits or JVD noted. Lungs: Mildly diminished, bases, appropriate effort, no rales, ronchi or wheezing. Heart: Currently regular rate and rhythm; no gallop, rub audible. Abdomen: Soft, obese, NTTP, ND, mildly hyperactive BS, no HSM. Extremities: No cyanosis, no clubbing or edema noted to left lower extremity, right lower extremity in a large postoperative dressing per podiatry, active bright red blood seeping through the heel region, see skin. Neurological: Patient awake, alert, oriented as noted, cognitive function intact; pupils equally reactive to light and accommodation, cranial nerves II- XII grossly normal, moving extremities except distal given block still intact, strength accordingly moderately to severely global decreased but improving. Psychiatric: Affect appears normal, no acute evidence of depressive or anxiety feelings. Assessment & Plan Assessment/Plan (1) Charcot's joint, right ankle and foot: PLAN: Plan The patient is a 42 y/o M w/ PMHx: Diabetes mellitus type II with neuropathy, HTN, HLD, Obesity who presents to the [facility] on 09/17/22 for planned OR per Dr. Perkins Podiatry secondary to Charcot foot with hindfoot equinovarus deformity for planned posterior medial soft tissue release with an Achilles tenotomy on the right and a tibiotalocalcaneal arthrodesis on the right. #1. Charcot foot with hindfoot equinovarus deformity status post operative i ntervention with postoperative site bleeding noted upon evaluation: Patient status post posterior medial soft tissue release with Achilles tenotomy on the right and tibiotalocalcaneal arthrodesis on the right as well, given bright red blood noted on evaluation compressive reinforcement dressing being placed to the heel region with podiatry notification, blood pressure did decrease therefore will administer 1 L normal saline bolus and continue to closely monitor with hold on blood pressure medication as needed, chemoprophylaxis per surgery discretion given recent bleeding noted and s/p OR status, pain regimen as well as antiemetic regimen also per discretion of podiatry service, will expect n onweightbearing to the right lower extremity. Given hypotension onset will obtain stat H&H to be cautious. #2. IDDM with polyneuropathy and history of diabetic foot wounds/osteomyelitis: Hold oral home regimen, continue home insulin regimen, ADA diet, accu checks w/ ISS. #3. Hypertension: Continue home regimen including losartan, PRN hydralazine. #4. Hyperlipidemia: We will continue patient on statin therapy. #5. DVT prophylaxis: SCD to left lower extremity if able, chemoprophylaxis ad dition per surgery discretion given recent bleeding as noted as well as recent OR status. Admission Evaluation Time spent evaluating chart, patient history, patient evaluation, care planning and discussion with specialists: 50 minutes. Charges/Coding Visit Charges Inpatient E&M: 78437 Subs Hosp L3
[2022-09-17 16:07] LABS: Differential Indicated SCAN CRITERIA MET
[2022-09-17 16:38] LABS: Differential Comment SCANNED
[2022-09-17] MEDS: Insulin Lispro 100 UNIT/ML INSULN.PEN SC ×2 (16:41→22:46)
[2022-09-17 17:00] LABS: Bedside Glucose 184 mg/dL (74-106)
--- NOTE | 2022-09-17 18:27 | NURSING ---
Around 1630 today, This RN reinforced martha wrap drsg at the heel. This RN just checked drsg and there was no more drainage noted. Will continue to monitor.
[2022-09-17] MEDS: 0.9% Normal Saline 1,000 ML 999 ML IV (19:01)
[2022-09-17 20:14] LABS: Hematocrit 40.8 % (40-54); Hemoglobin 13.5 g/dL (13.0-16.5)
[2022-09-17 23:26] LABS: Bedside Glucose 173 mg/dL (74-106)
[2022-09-18 02:56] VITALS: BP 117/68; PULSE 85; RESP 16; TEMP 36.4; O2SAT 97
[2022-09-18 07:10] LABS: Bedside Glucose 148 mg/dL (74-106)
[2022-09-18 08:32] LABS: Hemoglobin A1c 6.1 % (3.8-5.6)
--- NOTE | 2022-09-18 09:11 | PCM.PROGNOTE ---
Subjective Subjective 42-year-old male seen at site today. No pain. Denies constitutional's. Denies chest pain calf pain shortness of breath. Had some bleeding strikethrough overnight. Positive passing gas. Voiding urine. Objective Data Objective Data Vital Signs: Vital Signs Temp Pulse Resp BP Pulse Ox O2 Del Method O2 Flow Rate 97.5 F L 85 16 117/68 97 Room Air 2 09/18/22 02:56 09/18/22 02:56 09/18/22 02:56 09/18/22 02:56 09/18/22 02:56 09/18/22 07:22 09/17/22 13:30 Oxygen Flow Rate (L/min) 2 Oxygen Delivery Method Room Air Weight: 121 kg Body Mass Index (BMI) 37.2 Intake & Output: Intake and Output for Last 24 Hours 09/16/22 09/17/22 09/18/22 23:59 23:59 23:59 Intake Total 3640 / 3840 600 / 600 Output Total 600 / 650 700 / 700 Balance 3040 / 3190 -100 / -100 Lab / Micro Data Result Diagrams: 09/17/22 19:50 09/17/22 14:43 Labs: Laboratory Results - last 24 hr 09/17/22 12:48: POC Glucose 183 H 09/17/22 14:43: WBC 8.9, RBC 5.20, Hgb 14.8, Hct 45.8, MCV 88.1, MCH 28.5, MCHC 32.3, RDW Std Deviation 42.1, RDW Coeff of Venita 13.0, Plt Count 185, MPV 9.2, Immature Gran % (Auto) 0.500, Neut % (Auto) 94.0 H, Lymph % (Auto) 4.3 L, Broome % (Auto) 1.0, Eos % (Auto) 0.1, Baso % (Auto) 0.1, Absolute Neuts (auto) 8.3 H, Absolute Lymphs (auto) 0.38 L, Nucleated RBC % 0, Differential Comment SCANNED 09/17/22 14:43: Sodium 139, Potassium 4.9, Chloride 106, Carbon Dioxide 27.0, Anion Gap 6, BUN 35 H, Creatinine 1.25, Estim Creat Clear Calc 83.67, Est GFR (MDRD) Af Amer 82, Est GFR (MDRD) Non-Af 68, BUN/Creatinine Ratio 28.0 H, Glucose 189 H, Calcium 9.0, Total Bilirubin 0.70, AST 19, ALT 26, Alkaline Phosphatase 77, Total Protein 6.6, Albumin 3.5, Globulin 3.1, Albumin/Globulin Ratio 1.1 09/17/22 16:14: POC Glucose 184 H 09/17/22 19:50: Hgb 13.5, Hct 40.8 09/17/22 22:45: POC Glucose 173 H 09/18/22 06:45: POC Glucose 148 H 09/18/22 08:08: Hemoglobin A1c 6.1 H Radiography Diagnostic Testing: Radiology Impression Ankle X-Ray 09/17/22 06:30 IMPRESSION: Intraoperative digital documentation views. Electronically Signed: Fredis Govea, at 13:00 EST , Physical Exam Narrative Neurovascular status intact to right foot. Patient able to actively wiggle digits. Capillary fill time brisk to the toes 1 through 5 right lower extremity. Incisional sites appear well approximated and intact there is noted to be mild sanguinous drainage from the plantar heel incision where the nail went in as well as the lateral ankle incision. No acute signs of infection. Laterally where the fibulectomy was performed there is noted to be a small hematoma. Rectus alignment of the foot relative to the leg. No pain with calf squeeze or popliteal fossa or signs of DVT at this time. Const alert and oriented x3 Assessment & Plan Assessment/Plan (1) Acquired varus deformity of right ankle: PLAN: Exam performed. H&H stable yesterday. Awaiting new CBC BMP today. Bleeding appears to be resolved at this time. As mentioned there is a slight hematoma to the lateral ankle incision where the fibulectomy was performed. After obtaining oral consent the site was prepped with Betadine paint and using a 18-gauge needle 20 cc syringe as well as active pressure. Approximately 2 cc were drained from the site. Site was redressed with Adaptic 4 x 4's ABD pads and a well-padded Bradford compression posterior splint. Patient will maintain nonweightbearing status to right lower extremity until follow-up in 1 week. Patient will hold blood thinners at this time and will restart Lovenox on 09/20/2022. We will discharge patient with oral narcotic analgesics for acute postoperative pain management. Patient will be discharged today we will continue to observe observe for an additional 3 hours to ensure no additional strikethrough or drainage with regards to the bandage, but I strongly feel that the bleeding has resolved at this time. (2) Charcot's joint, right ankle and foot:
--- NOTE | 2022-09-18 09:20 | DS.PCM_ITS ---
Providers Date of Admission: 09/17/22 Primary Care Physician: Dr. Dom Villagomez, DO Consultations 09/17/22 14:03 Consult: Hospitalist Routine Consulting Provider: [facility] Reason for Consult: medical mangement EMERGENT Consult: No MD Notified: Yes Date Notified: 09/17/22 Time Notified: 15:21 Method of Notification: via spok Reason For Visit: rt tibiotalo calcaneal arthrodesis Diagnosis Discharge Diagnosis (1) Acquired varus deformity of right ankle: Status: Acute Code(s): M21.171 - Varus deformity, not elsewhere classified, right ankle Plan: Exam performed. H&H stable yesterday. Awaiting new CBC BMP today. Bleeding appears to be resolved at this time. As mentioned there is a slight hematoma to the lateral ankle incision where the fibulectomy was performed. After obtaining oral consent the site was prepped with Betadine paint and using a 18-gauge needle 20 cc syringe as well as active pressure. Approximately 2 cc were drained from the site. Site was redressed with Adaptic 4 x 4's ABD pads and a well-padded Bradford compression posterior splint. Patient will maintain nonweightbearing status to right lower extremity until fol low-up in 1 week. Patient will hold blood thinners at this time and will restart Lovenox on 09/20/2022. We will discharge patient with oral narcotic analgesics for acute postoperative pain management. Patient will be discharged today we will continue to observe observe for an additional 3 hours to ensure no additional strikethrough or drainage with regards to the bandage, but I strongly feel that the bleeding has resolved at this time. (2) Charcot's joint, right ankle and foot: Status: Acute Code(s): M14.671 - Charcot's joint, right ankle and foot Medications at Discharge Home Medications empagliflozin 25 mg tablet (Jardiance) 25 mg PO DAILY diabetes 11/14/21 metformin 1,000 mg tablet 1,000 mg PO BID diabetes 11/14/21 pravastatin 40 mg tablet 40 mg PO QHS cholesterol 11/14/21 arginine 7 gram-glutam 7 gram-CaHMB 1.5 qoxe-vaxxw-xj-min oral pwd pkt (Galo (with collagen)) 1 packet PO BIDCM #30 ea 11/21/21 ascorbic acid (vitamin C) 500 mg tablet (Vitamin C) 500 mg PO DAILY 11/24/21 calcium citrate 200 mg (950 mg) tablet 200 mg PO DAILY 11/24/21 multivitamin 1 tab PO DAILY 11/24/21 omega-3 fatty acids 2 cap PO DAILY 11/24/21 losartan 25 mg tablet 25 mg PO DAILY 09/15/22 enoxaparin 40 mg/0.4 mL subcutaneous syringe 40 mg (0.4 mL) subcut DAILY #12 mL 09/18/22 oxycodone 5 mg capsule 5 mg PO Q4H PRN pain 7 days #42 caps 09/18/22 Hospital Course Summary of Care Provided Hospital Course: Admitted overnight for postoperative pain control and some bleeding. Patient had strikethrough overnight. Change dressing today bleeding. Resolved. Attempted to relieve hematoma from lateral ankle small portion of hematoma drained at this time. Redressed site with well-padded compression dressing and posterior splint. Patient underwent Charcot reconstruction secondary to a severe equina varus deformity in setting of diabetic neuropathy. Patient preoperatively obtained significantly improved blood glucose control, lost approximately 50 to 70 pounds of weight and was motivated to return to an ambulatory lifestyle with minimal bracing. Patient underwent operative reconstruction of right lower extremity on 09/17/2022. Deformity was reduced and plantigrade foot was restored. Patient is admitted for overnight observation. Bleeding appeared and pain appear to be well controlled will discharge home for nonweightbearing for the next 4 to 12 weeks until adequate healing noted. Patient will keep dressing clean dry and intact till follow-up in 1 week. Physical Exam Narrative Neurovascular status intact to right foot. Patient able to actively wiggle d igits. Capillary fill time brisk to the toes 1 through 5 right lower extremity. Incisional sites appear well approximated and intact there is noted to be mild sanguinous drainage from the plantar heel incision where the nail went in as well as the lateral ankle incision. No acute signs of infection. Laterally where the fibulectomy was performed there is noted to be a small hematoma. Rectus alignment of the foot relative to the leg. No pain with calf squeeze or popliteal fossa or signs of DVT at this time. Const alert and oriented x3 Weight / BMI Weight Weight: 121 kg Body Mass Index (BMI) 37.2 ABG / Lab / Microbiology Data Result Diagrams: 09/17/22 19:50 09/17/22 14:43 Laboratory: Laboratory Results - last 24 hr 09/17/22 12:48: POC Glucose 183 H 09/17/22 14:43: WBC 8.9, RBC 5.20, Hgb 14.8, Hct 45.8, MCV 88.1, MCH 28.5, MCHC 32.3, RDW Std Deviation 42.1, RDW Coeff of Venita 13.0, Plt Count 185, MPV 9.2, Immature Gran % (Auto) 0.500, Neut % (Auto) 94.0 H, Lymph % (Auto) 4.3 L, Mckenzie % (Auto) 1.0, Eos % (Auto) 0.1, Baso % (Auto) 0.1, Absolute Neuts (auto) 8.3 H, Absolute Lymphs (auto) 0.38 L, Nucleated RBC % 0, Differential Comment SCANNED 09/17/22 14:43: Sodium 139, Potassium 4.9, Chloride 106, Carbon Dioxide 27.0, Anion Gap 6, BUN 35 H, Creatinine 1.25, Estim Creat Clear Calc 83.67, Est GFR (MDRD) Af Amer 82, Est GFR (MDRD) Non-Af 68, BUN/Creatinine Ratio 28.0 H, Glucose 189 H, Calcium 9.0, Total Bilirubin 0.70, AST 19, ALT 26, Alkaline Phosphatase 77, Total Protein 6.6, Albumin 3.5, Globulin 3.1, Albumin/Globulin Ratio 1.1 09/17/22 16:14: POC Glucose 184 H 09/17/22 19:50: Hgb 13.5, Hct 40.8 09/17/22 22:45: POC Glucose 173 H 09/18/22 06:45: POC Glucose 148 H 09/18/22 08:08: Hemoglobin A1c 6.1 H Radiography Diagnostic Testing: Radiology Impression Ankle X-Ray 09/17/22 06:30 IMPRESSION: Intraoperative digital documentation views. Electronically Signed: Fredis Govea, at 13:00 EST , Meaningful Use Info Meaningful Use Diagnoses (Choose all that apply): None applicable Discharge Plan Admission Admit Date/Time: 09/17/22 12:54 Attending Provider: Jordi Perkins Primary Care Provider: Dom Villagomez Consulting Providers: Marely Arriaga ; Joy Horn ; Cameron Julien ; Yuliya Reed ; Isamar Lester ; Rowena Pandey GULLET SLITTER ; Luke Street GULLET SLITTER ; Liliana Barrett ; Luke Garnett Instructions Additional Instructions / Restrictions: Keep dressing clean, dry and intact until follow up in 1 week maintain NWB assisted by walker or knee scooter to right lower extremity remain primarily sedentary with right limb elevated above heart Take pain medication as needed/as directed Ice behind knee to assist post operative pain management contact our office or present to ED if any strikethrough noted or signs of infection noted Discharge Orders/Prescriptions Prescriptions: New oxycodone 5 mg capsule 5 mg PO Q4H PRN (Reason: pain) 7 Days Qty: 42 0RF enoxaparin 40 mg/0.4 mL syringe 40 mg subcut DAILY Qty: 12 0RF Rx Instructions: start medication on 09/20/22 Continued pravastatin 40 mg tablet 40 mg PO QHS Label Comments: take 1 tablet by mouth once daily metformin 1,000 mg tablet 1,000 mg PO BID Jardiance 25 mg tablet 25 mg PO DAILY Galo (with collagen) 7-7-1.5 gram Powder In Packet 1 packet PO BIDCM Qty: 30 0RF multivitamin Tablet 1 tab PO DAILY ascorbic acid (vitamin C) [Vitamin C] 500 mg Tablet 500 mg PO DAILY calcium citrate 200 mg (950 mg) Tablet 200 mg PO DAILY omega-3 fatty acids Capsule 2 cap PO DAILY losartan 25 mg Tablet 25 mg PO DAILY Discontinued aspirin 81 mg Tablet 81 mg PO DAILY Referrals / Follow Up: Dom Villagomez DO [Primary Care Provider] - Disposition Disposition (needs filled in before D/C Order can be placed): Home, Self Care
[2022-09-18 09:25] VITALS: BP 127/73; PULSE 89; RESP 18; TEMP 36.8; O2SAT 97
[2022-09-18 09:41] LABS: Absolute Lymphocyte Count 0.83 X10^3/uL (0.83-4.51); Absolute Neutrophil Count 6.7 X10^3/uL (2.0-7.7); Basophil# 0.02 X10^3/uL; Basophil% 0.2 % (0-1); Eosinophil# 0.08 X10^3/uL; Eosinophils% 0.9 % (0-5); Hematocrit 41.9 % (40-54); Hemoglobin 13.8 g/dL (13.0-16.5); Lymphocyte # 0.83 X10^3/ul (0.83-4.51); Lymphocyte % 9.8 % (19-41); Mean Corp Hgb Conc 32.9 g/dL (32-36); Mean Corpuscular Hgb 28.9 pg (27.0-32.0); Mean Corpuscular Volume 87.8 fL (80-94); Mean Platelet Vol. 9.3 fl (6.2-12.0); Monocyte# 0.85 X10^3/uL; NRBC Flagged by Analyzer 0 % (0-5); Neutrophil # 6.67 X10^3/uL (2.7-7.7); Neutrophil % 78.9 % (47-70); Platelet Count 199 K/mm3 (150-450); RBC Distribution Width CV 13.3 % (11.6-14.6); Red Blood Count 4.77 M/mm3 (4.6-6.2); White Blood Count 8.5 K/mm3 (4.4-11.0)
--- NOTE | 2022-09-18 09:41 | NURSING ---
While in pt room changing dressing, Dr Perkins told this RN and pt that he would like to hold Lovenox until Wednesday 09/20. Ordered 1000 Lovenox for today, 09/18, was held.
[2022-09-18 10:09] LABS: Anion Gap 7 (5-15); BUN 33 mg/dL (7-18); BUN/Creat Ratio 27.7 RATIO (10-20); Calcium,Total 8.9 mg/dL (8.5-10.1); Chloride 107 mmol/L (98-107); Creatinine, Serum 1.19 mg/dL (0.70-1.30); EST Glomerular Filtration Rate 72 mL/min (>60); Est Glom Filt Rate - Afr Amer 87 mL/min (>60); Estimated Creatinine Clearance 87.89 ml/min; Glucose 162 mg/dL (74-106); Potassium 4.1 mmol/L (3.5-5.1); Sodium Level 142 mmol/L (136-145)
[2022-09-18] MEDS: Insulin Lispro 100 UNIT/ML INSULN.PEN SC (11:08)
[2022-09-18 11:40] LABS: Bedside Glucose 225 mg/dL (74-106)
== END 2022-09-18 12:02 | disposition home or self-care (01) ==
LOC: SDC 13:13 → MS3 13:13
PROVIDERS: Family Medicine; Admitting Provider Podiatrist; PCP Student in an Organized Health Care Education/Training Program; Referring Provider Podiatrist; Visit Provider Podiatrist
PROC: (CPT 28725; principal; 2022-09-17 07:15)
DX: M21.171 Varus deformity, not elsewhere classified, right ankle (principal); E11.610 Type 2 diabetes mellitus with diabetic neuropathic arthropathy; E11.42 Type 2 diabetes mellitus with diabetic polyneuropathy; E78.5 Hyperlipidemia, unspecified; Q66.6 Other congenital valgus deformities of feet; I10 Essential (primary) hypertension; E66.9 Obesity, unspecified; Q66.00 Congenital talipes equinovarus, unspecified foot; Z79.899 Other long term (current) drug therapy; Z79.82 Long term (current) use of aspirin; Z79.84 Long term (current) use of oral hypoglycemic drugs; R06.02 Shortness of breath; Z68.38 Body mass index [BMI] 38.0-38.9, adult
CPT/HCPCS: 28725; 01480; 64445; 27870; 36415; 73600; 76000; 80048; 80053; 82962; 83036; 85014; 85018; 85025; 88304; 88311; 96360; 97161; 99221; C1776; J7030; J7050; J7120; G0378; J2405

== ENCOUNTER → 2023-01-04 | Outpatient (CLI) | payer BC, SELFPAY ==
--- NOTE | 2023-01-04 16:27 | CT_ITS ---
EXAM: CT RIGHT LOWER EXTREMITY WITHOUT INTRAVENOUS CONTRAST CLINICAL INDICATION: BILAT LOWER EXT TECHNIQUE: Helically acquired images were obtained of the right lower extremity without intravenous contrast. 2-D reformats were performed by the technologist. CTDIvol = ( 15.35 ) mGy, DLP = ( 892.27 ) mGycm This CT exam was performed using one or more of the following dose reduction techniques: automated exposure control, adjustment of the mA and/or kV according to patient size, and/or use of iterative reconstruction technique. COMPARISON: July 09, 2022 and September 17, 2022. FINDINGS: BONES/JOINTS: Extensive periosteal reaction along the metatarsals, potentially the sequela of chronic osteomyelitis or previous remote injury. Extensive neuropathic osteoarthropathy involving the foot. Medial and lateral meniscal chondrocalcinosis. At least a moderate-sized tibiotalar joint effusion. Moderate supratentorial joint effusion. No acute fracture. No subluxation. Normal alignment. No sclerotic or destructive changes. Pes planus deformity suggested. Correlate with weightbearing lateral radiography. Posterior calcaneal enthesopathy. SOFT TISSUES: Diffuse subcutaneous edema is nonspecific. No soft tissue gas. Diffuse muscle atrophy distally. No soft tissue swelling or gas. No radiopaque foreign body. VASCULATURE: Peripheral vascular calcifications. CT/Extremity Lower without Contra IMPRESSION: Extensive periosteal reaction along the metatarsals, potentially the sequela of chronic osteomyelitis or previous remote injury. Neuropathic osteoarthropathy of the foot. Electronically Signed: Ke Chan MD at 21:41 EDT ,
--- NOTE | 2023-01-04 16:31 | CT_ITS ---
EXAM: CT LEFT LOWER EXTREMITY WITHOUT INTRAVENOUS CONTRAST CLINICAL INDICATION: CHARCOT''S TECHNIQUE: Helically acquired images were obtained of the left lower extremity without intravenous contrast. 2-D reformats were performed by the technologist. CTDIvol = ( 15.35 ) mGy, DLP = ( 926.81 ) mGycm This CT exam was performed using one or more of the following dose reduction techniques: automated exposure control, adjustment of the mA and/or kV according to patient size, and/or use of iterative reconstruction technique. COMPARISON: No relevant prior studies available. FINDINGS: BONES/JOINTS: No acute or healing fracture or malalignment and no unusual lytic or sclerotic lesion of bone. Extensive periosteal reaction involving the second through fifth metatarsals could be from venous insufficiency or less likely chronic osteomyelitis or sequela of prior trauma. Extensive neuropathic osteoarthropathy of the foot. Posterior calcaneal enthesophyte. Incidental finding of medial and lateral meniscal chondrocalcinosis of the knee. Moderate tricompartmental osteoarthrosis of the knee. SOFT TISSUES: Unremarkable. No radiopaque foreign body. No soft tissue gas. VASCULATURE: Peripheral vascular disease/calcifications. OTHER FINDINGS: No organized fluid collections. CT/Extremity Lower without Contra IMPRESSION: 1. Extensive periosteal reaction involving the second through fifth metatarsals could be from venous insufficiency or less likely chronic osteomyelitis or sequela of prior trauma. 2. Extensive neuropathic osteoarthropathy of the foot. Electronically Signed: Ke Chan MD at 21:45 EDT ,
== END | disposition home or self-care (01) ==
LOC: CT 16:24
PROVIDERS: PCP Student in an Organized Health Care Education/Training Program; Visit Provider Podiatrist
DX: M14.671 Charcot's joint, right ankle and foot (principal); M14.672 Charcot's joint, left ankle and foot
CPT/HCPCS: 73700

== ENCOUNTER 2023-02-11 15:30 | Outpatient (RCR) | payer BC, SELFPAY ==
--- NOTE | 2023-01-10 17:38 | HP.PTEVAL ---
Patient's Visit Information SNEHA WEI Jr. is a 42 year old M referred to Physical Therapy by Dr. Jordi Perkins DPM with a diagnosis of R foot Charcot Cari Tooth 09/17/22. Date of Evaluation: 01/10/23 Physical Therapist: Sergei Alvarez PT, ATC - Visit Plan Frequency: 2-3x /Week Duration: 4-6 Weeks Plan: R ankle stretching and strengthening, mobs, balance and proprio, bike, and HEP - Subjective DOS: 09/17/22. Pt was diagnosed with [id number] 4 years ago. Pt reports he was walking at work and experienced a sudden pop in his foot, which resulted in a Fx. Pt notes shortly after that he fractured his other foot, then his ankle. Pt reports he had constructive surgery to his R foot to straighten out his R foot and ankle. Pt notes he is waiting on [facility] to finish a brace he will be getting to aid with him returning to wearing a normal shoe. Pt reports he is ready now to get his R leg moving again as it has become very stiff due to inactivity. Pt reports his feet are pretty numb on both feet. 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 Pt notes he has stairs at home that he has to negotiate one step at a time. Pt reports his major goal is to be able to walk more normal soon. 0/10 pain at rest, 3/10 pain at worst (when he walks a lot) - Pain R ankle Pain Intensity (Out of 10): 0 Pain Intensity Range: 3 - Objective Neuro: Pt is able to feel all locations of R LE with light touch except for plantar aspect of R foot. ROM: R ankle DF= -12, PF= 15 degrees. MMT: R ankle DF= 9, PF= 5 #F. Gait: Pt is able to ambulate approximately 140 feet until feeling fatigued - Balance/Special Test Scores Lower Extremity Functional Score: 46 - Goals Goal 1:: Decrease R ankle pain x 50% to aid with increasing tolerance for ambulation Goal Time Frame: 4-6 Weeks Goal 2:: Pt will be able to ambulate greater than 1000 feet to aid with community ambulation Goal Time Frame: 4-6 Weeks Goal 3:: Increase R ankle DF ROM x 10 degrees to aid with restoring a more normalized gait pattern Goal Time Frame: 4-6 Weeks Goal 4:: I with HEP Goal Time Frame: 4-6 Weeks - Rehabilitation Potential Physical Therapy Diagnosis: Pt has R ankle weakness, limited ROM, and pain secondary to reconstructive surgery to R ankle/foot. Rehabilitation Potential: Good - Anticipated Interventions Patient/Client Instruction: Educate patient on: Condition, Plan of Care For the Purpose of:: To improve self management Therapeutic Exercise to Include: Strength training, Endurance training, Balance training, Flexibilty training, Gait and locomotor training, Passive ROM, Active ROM For the Purpose of:: To decrease pain, To increase ROM, To improve muscle performance and motor function Cryotherapy (ice pack, ice massage): Yes For the Purpose of:: To decrease pain Thank you for the opportunity to evaluate your patient. For Medicare and Medicare HMO plans, please review the plan of care and approve it. It will need to be FAXED BACK to us at [phone] for Medicare purposes. For Medicare only, by signing this I certify the plan of care. Please let me know if there are questions or concerns regarding this plan of care. Physician Signature: Date:
--- NOTE | 2023-02-11 16:11 | HP.PTDCSUM_ITS ---
Discharge Summary D/C summary: It has been my pleasure to treat SNEHA WEI Jr. referred by Dr. 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 Discharge Date: Please see the following information for a summary of their discharge status. Subjective Subjective: Pt reports no pain today Pain R ankle: Pain Intensity (Out of 10): 0 Overall Improvement % Improvement: 85 Objective Objective/Function: 0/10 pain this date Pt is able to ambulate 1000 feet without difficulty Pt is I with HEP DF= -10 degrees Goals Goal 1:: Decrease R ankle pain x 50% to aid with increasing tolerance for ambula tion Goal Progress: Goal Met Goal 2:: Pt will be able to ambulate greater than 1000 feet to aid with community ambulation Goal Progress: Goal Met Goal 3:: Increase R ankle DF ROM x 10 degrees to aid with restoring a more normalized gait pattern Goal Progress: Progressing Goal 4:: I with HEP Goal Progress: Goal Met Plan Plan: Discontinue to HEP D/C Information d/c sentence: If there are questions or concerns regarding this patient's physical therapy, please feel free to call me at [phone]. Thank you for the referral of this patient. Sincerely, Sergei Alvarez, PT, ATC Balance/Gait/Functional tests Balance/Special Test Scores Lower Extremity Functional Score: 60
--- NOTE | 2023-02-11 16:11 | HP.PTDCS(3) ---
Discharge Summary D/C Summary: It has been my pleasure to treat SNEHA WEI Jr. referred by Dr. Jordi Perkins DPM, with the diagnosis of for a total of visit(s). Discharge Date: Please see the following information for a summary of their discharge status. D/C Information d/c sentence: If there are questions or concerns regarding this patient's physical therapy, please feel free to call me at [phone]. Thank you for the referral of this patient. Sincerely, Sergei Alvarez, PT, ATC
== END 2023-02-11 19:00 | disposition home or self-care (01) ==
LOC: PT 15:30
PROVIDERS: PCP Student in an Organized Health Care Education/Training Program; Referring Provider Podiatrist; Visit Provider Podiatrist
DX: M14.671 Charcot's joint, right ankle and foot (principal)
CPT/HCPCS: 97110; 97140; 97161; 97164

== ENCOUNTER 2023-06-24 16:17 | Outpatient (CLI) | payer BC, SELFPAY ==
[2023-06-24 18:44] LABS: Absolute Lymphocyte Count 1.08 X10^3/uL (0.83-4.51); Absolute Neutrophil Count 4.6 X10^3/uL (2.0-7.7); Basophil# 0.04 X10^3/uL; Basophil% 0.6 % (0-1); Eosinophil# 0.47 X10^3/uL; Eosinophils% 6.9 % (0-5); Hematocrit 46.1 % (40-54); Hemoglobin 14.8 g/dL (13.0-16.5); Lymphocyte # 1.08 X10^3/ul (0.83-4.51); Lymphocyte % 15.8 % (19-41); Mean Corp Hgb Conc 32.1 g/dL (32-36); Mean Corpuscular Hgb 27.3 pg (27.0-32.0); Mean Corpuscular Volume 85.1 fL (80-94); Mean Platelet Vol. 10.5 fl (6.2-12.0); Monocyte# 0.54 X10^3/uL; Monocyte% 7.9 % (0-10); NRBC Flagged by Analyzer 0 % (0-5); Neutrophil # 4.64 X10^3/uL (2.7-7.7); Neutrophil % 68.1 % (47-70); Platelet Count 260 K/mm3 (150-450); RBC Distribution Width CV 13.2 % (11.6-14.6); RBC Distribution Width SD 40.3 fl (35.1-43.9); Red Blood Count 5.42 M/mm3 (4.6-6.2); White Blood Count 6.8 K/mm3 (4.4-11.0)
[2023-06-24 19:17] LABS: AST(SGOT) 22 U/L (15-37); Alanine Aminotransfer ALT/SGPT 39 U/L (16-61); Albumin, Serum 3.5 g/dL (3.2-5.0); Alkaline Phosphatase 115 U/L (45-117); Anion Gap 7 (5-15); BUN 22 mg/dL (7-18); BUN/Creat Ratio 20.4 RATIO (10-20); Calcium,Total 9.4 mg/dL (8.5-10.1); Chloride 103 mmol/L (98-107); Creatinine, Serum 1.08 mg/dL (0.70-1.30); EST Glomerular Filtration Rate 80 mL/min (>60); Est Glom Filt Rate - Afr Amer 97 mL/min (>60); Globulin 3.6 g/dL (2.2-4.2); Glucose 201 mg/dL (74-106); Potassium 3.9 mmol/L (3.5-5.1); Protein, Total 7.1 g/dL (6.4-8.2); Sodium Level 140 mmol/L (136-145)
== END 2023-06-24 23:59 | disposition home or self-care (01) ==
LOC: MFPLAB 16:17
PROVIDERS: PCP Student in an Organized Health Care Education/Training Program; Visit Provider Family Medicine
DX: Z01.818 Encounter for other preprocedural examination (principal)
CPT/HCPCS: 36415; 80053; 85025

== ENCOUNTER 2023-07-15 15:43 | Observation (INO) | payer BC, SELFPAY ==
[2023-07-15] VITALS (15 sets, daily range): BP systolic 70–158; BP diastolic 49–87; PULSE 65–105; RESP 16–20; TEMP 36.2–36.8; O2SAT 88–99; BMI 37.3; BMI 37.5
[2023-07-15] MEDS: Lactated Ringers 1,000 ML 15 ML IV ×3 (08:13→17:07)
[2023-07-15 08:44] LABS: Bedside Glucose 174 mg/dL (74-106)
--- NOTE | 2023-07-15 09:15 | BON_PTH ---
PATIENT: SNEHA WEI Jr. LOC: [facility] U#:[id number] AGE/SX: 43/M ROOM: AK317 RE07/15/[address]: Dr. Wojciech Bowman MD : 1980 BED: 1 DIS: 07/16/2023 SPEC #: [id number] RECD: 07/18/23 07:29 STATUS: [place] REZaida #: [id number] DEREK: 07/15/23 09:[address]: Jordi Perkins DEPT: SURGICAL PATHOLOGY RECD BY: Lizabeth Li ENTERED: 07/18/23 08:21 SP TYPE: Bone OTHR DR: Dr. Jordi Perkins, DPM MD Dr. Dom Read, DO Tissues: Foot, NOS Procedures: Decalcification bone/plaque Surgery Specimen Level V Comments: @ Ordering doctor for DEC edited from to @ by MYRNA at 07/19/23 0840 @ Ordering doctor for SUIV edited from to @ by MYRNA at 07/19/23 0840 @ Submitting doctor edited from to @ by RGOBEN at 07/19/23 0840 HEADER OPERATION: Left foot and ankle Charcot reconstruction PRE-OP DIAGNOSIS: Left foot and ankle Charcot/ infections TISSUE SUBMITTED: Charcot bone left foot MICROSCOPIC DIAGNOSIS Left foot, amputation: Consistent with Charcot arthropathy. AM:era 07/21/2023 MICROSCOPIC DESCRIPTION Slides are reviewed. GROSS DESCRIPTION Received in fixative is one container labeled with the patient's name and designated Charcot bone left foot. The specimen consists of four variable sized pieces of bone measuring in aggregate 8.0 x 10.0 x 3.5 cm. Also present in the container are four variable sized pieces of tendinous tissue measuring in aggregate 5.0 x 3.0 x 0.5 cm. [employer] M[employer] Installer sections are submitted in four cassettes as follows: 1??tendinous tissue, 2-4 - bone after decalcification. / SJ:era 07/18/2023 TC:5 CPT: 81586, 52132
[2023-07-15] MEDS: Clindamycin 900 MG/50 ML BAG 75 MG IV (10:30)
--- NOTE | 2023-07-15 10:52 | RAD_ITS ---
INDICATION: TALO-NAVICULAR JOINT FUSION EXAMINATION/TECHNIQUE: X-RAY - LEFT XR Foot Min 3 Views 10 images. Total fluoroscopic time 675.6 seconds. Cumulative dose 32.81 mGy. COMPARISON: Prior study dated: 11/14/2021 FINDINGS: The fluoroscopic images show existing hardware placement for hindfoot fusion with a nail through the distal tibia, extending through the calcaneus. There is screw fixation. There are new K wires are placed through the midfoot. RAD/Foot min 3 Views IMPRESSION: Fluoroscopic guidance for talonavicular fusion. Please refer to operative report for further information. Electronically Signed: Joel Baker MD at 18:02 EST ,
--- NOTE | 2023-07-15 15:46 | OP.PCM_ITS ---
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 Surgeon: Jordi Perkins manager corporate responsibility: None (marie ibanez, quinn staley) manager corporate responsibility: Dudley Hightower Type of Anesthesia: General Special Medications: preoperative popliteal block Specimen's removed: Left foot distal tibial, calcaneal, midfoot bone/tendon/soft tissue Drains: none Estimated Blood Loss (mL): 200cc Fluids Replaced: none Description of Procedure: Patient brought back to the operating complete in supine position on the operating room table. Patient induced under general anesthesia. Left lower extremity thigh tourniquet applied. Left lower extremity scrubbed prepped draped using typical aseptic fashion. Once cleared by anesthesia procedures performed. Procedure #1/2/3 tibial talocalcaneal arthrodesis with soft tissue balancing, Left Lower Extremity for correction of severe rearfoot and midfoot deformity: Once cleared by anesthesia the left lower extremity was elevated and exsanguinated and tourniquet was inflated to 300 mmHg. Through a percutaneous incision in the posterior ankle a Achilles tenotomy was performed using a #11 blade atraumatically. This was flushed with copious amounts of normal sterile saline and closed with 2-0 Vicryl and robinson to skin. Attention was taken medially where the plan was initially to perform a medial malleoli are takedown with excision to allow for reduction of the deformity in the frontal plane. A curvilinear incision was made from proximal to distal over the medial malleolus to midfshaft of the first metatarsal through the epidermis dermis into subcutaneous tissue using #15 blade any bleeders neurovascular bundles identified bleeders cauterized neurovascular bundles protected with blunt retraction. Due to significant and aberrant bone formation to the site the medial malleolus was difficult to visualize. Blunt dissection was taken down the level of the deep fascia where the medial malleolus was identified and resected using a sagittal saw. It was removed from its attachments including the anterior posterior and medial portions of the deltoid ligament. The tibialis posterior tendon was completely tenotomy. Attention was then taken laterally where an incision was made over the lateral malleolus to the 4th/5th TMTJ running from proximal to distal. This incision was made using a #15 blade through the epidermis dermis into subcutaneous tissue blunt dissection was taken down the level of deep fascia and periosteal layer of bone. Any bleeders were identified cauterized. Neurovascular structures identified and protected with blunt retraction. A transverse osteotomy was performed just proximal to the distal tibial fibular syndesmosis using sagittal saw. The distal fibula was excised and entirety and sent to the back table. There is the lateral talar body was noted to be holding up the reduction as well as additional soft tissue attachments on the medial ankle. At this time a decision was made to make a anterolateral based wedge through the distal tibia body to help reduce the equin ovarus deformity of the hindfoot. This was made with a sagittal saw and resected with bone rongeurs performed atraumatically. Neurovascular structures were protected with blunt retraction at this time. Once this was performed we are able to reduce the ankle and subtalar joints with regards to the axial, sagittal transverse and frontal planes. Was pinned in a corrected position with the ankle and foot at 90 degrees relative to the leg slight valgus alignment of the hindfoot. With slight external rotation. Distal tibia dorsal talar dome subtalar joint removed of all nonviable tissue or interpositional cartilage and prepped with subchondral drilling. Augment in the talus were packed in the ankle and subtalar joint to assist osseous fusion. There is noted to be some residual metatarsus adductus deformity and midfoot rocker-bottom deformity secondary Charcot. Once the deformity was reduced and pinned in place using temporary fixation. Intramedullary nail for TTC arthrodesis using [employer] T2 nail was placed using manufactures guidelines with use of the internal and external compression devices to allow for compression across the ankle and subtalar joints. This was performed after sequential reaming was performed from 9 mm up to 12.5 mm and 11 mm 150 mm length nail was inserted using manufactures guidelines first the lateral talar locking screw was placed in the lateral loc edvin position The jig was swung to the medial position and the 2 proximal medial tibial screws were placed using manufactures guidelines. Internal compression performed using the internal compression device pressing up the lateral talar screw. For 5 mm of compression. Next attention was taken with the jig swung back into the lateral locking position with the lateral locking calcaneal screw was applied using manufactures guidelines. And lastly the posterior to anterior screw was placed using manufactures guidelines with the jig in the posterior locking position. Fluoroscopically imaging was noted that all screws were noted to be within the nail and that there was adequate reduction of the ankle and subtalar joint. AP axial and lateral radiographs were taken to confirm this. At this t ely any bone voids were filled with augments and vitoss graft per [employer]. Procedure #4 midfoot osteotomy with percutaneous pinning left lower extremity for correction midfoot Charcot deformity causing rocker-bottom left foot: (Forefoot dorsiflexion relative to rear foot, metatarsal adductus) Initial dissection was performed extended from the initial incisions across the level of Chopart's joint. Using blunt retraction and protection of neurovascular structures a sagittal saw was used to make a plantarly based and laterally based wedge to correct for dorsiflexion of the forefoot relative to the rear foot and metatarsus adductus deformity. This osteotomy was performed with a sagittal saw from medial to lateral and then held in a reduced position and prepped percutaneously pinned through the first and fifth metatarsal across the midfoot using large Steinmann pins. Should be noted that tourniquet was let down at 2 hours for and given a 30-minute rest at which time tourniquet was then inflated again for an additional hour and a half approximately. Prior to incisional closure tourniquet was let down any bleeders were identified cauterized. Patient did have some significant bleeding throughout the case approximately 200 cc. Patient will be admitted for observation due to this issue to ensure no possible operative complications occur. All incisional sites were flushed with copious amounts of normal sterile saline. Deep closure performed with buried interrupted 2-0 Vicryl subcutaneous closure performed 2 with running 2-0 Vicryl. Skin closure performed with robinson to the medial lateral ankle incisions proximal to tibial screws posterior and lateral tibial screws as well as the plantar heel insertional incision for the nail. There is noted to be a full-thickness wound to the medial ankle which cannot be closed due to soft tissue contracture of the skin due to chronic equina varus deformity. This wound was packed with Surgicel to help with hemostasis all incisional sites dressed with Betadine Adaptic 4 x 4's Kerlix. Procedure #5 application of AO splint left lower extremity: Using adequate amounts of cast padding a 4 layer Bradford compression dressing was applied along with an AO splint using 5 x 30 plaster with the foot ankle held 90 degrees with rectus alignment of the frontal axial and sagittal planes. Patient transferred to PACU vital signs stable vascular status intact all digits for further monitoring prior to observation. Patient tolerated procedure anesthesia well apparent satisfactory condition. As mentioned previously patient will be admitted for 24-hour observation. Excellent reduction of the hindfoot and midfoot Charcot deformity with regards to the equina varus deformity with in the hindfoot and the metatarsus adductus with rocker-bottom deformity in the forefoot relative to the hindfoot post tibial talocalcaneal arthrodesis with soft tissue balancing and midfoot osteotomy with percutaneous pinning. Complications: Some bleeding noted throughout the case Admit VTE Documentation VTE Present on Admission: Yes VTE Pharm Prophylaxis ordered?: Yes
[2023-07-15 16:58] LABS: Hematocrit 34.7 % (40-54); Hemoglobin 11.5 g/dL (13.0-16.5)
--- NOTE | 2023-07-15 19:34 | PCM.PN.HOSP ---
Reason for Visit Reason for Visit: Diagnoses Type 2 diabetes mellitus with diabetic polyneuropathy (07/15/23) Non-pressure chronic ulcer of right 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 (07/15/23) Charcot's joint, right ankle and foot (07/15/23) Charcot's joint, unspecified ankle and foot (07/15/23) Other acute osteomyelitis, left ankle and foot (07/15/23) Subjective Subjective Type 2 diabetes with diabetic polyneuropathy, osteomyelitis, right ankle Charcot joint, Charcot arc property of midfoot underwent left ankle arthrodesis, subtalar joint arthrodesis midfoot osteotomy and left lower extremity was splinted today. He is currently in under observation status following his surgery today. At present there is no pain, knee symptomatically well. He is admitted only for overnight observation for Objective Data Objective Data Vital Signs: Vital Signs Temp Pulse Resp BP Pulse Ox O2 Del Method O2 Flow Rate 98.3 F 96 16 93/68 97 Room Air 3 07/15/23 18:13 07/15/23 18:13 07/15/23 18:13 07/15/23 18:13 07/15/23 18:13 07/15/23 18:13 07/15/23 17:00 Oxygen Flow Rate (L/min) 3 Oxygen Delivery Method Room Air Weight: 267 lb 13.786 oz Body Mass Index (BMI) 37.5 Intake & Output: Intake and Output for Last 24 Hours 07/13/23 07/14/23 07/15/23 23:59 23:59 23:59 Intake Total 4050 / 4050 Balance 4050 / 4050 Lab / Micro Data Attestation: I reviewed the patient's lab results. 07/15/23 16:35 Labs: Laboratory Results - last 24 hr 07/15/23 08:06: POC Glucose 174 H 07/15/23 16:35: Hgb 11.5 L, Hct 34.7 L Radiography Diagnostic Testing: Radiology Impression Foot X-Ray 07/15/23 10:52 IMPRESSION: Fluoroscopic guidance for talonavicular fusion. Please refer to operative report for further information. Electronically Signed: Joel Baker MD at 18:02 EST , Physical Exam Const alert, oriented x3, no apparent distress, average body habitus, healthy appearing and well nourished HEENT head/scalp atraumatic, moist oral mucous membranes, oropharynx normal, dentition normal and gingiva normal Eyes PERRL, EOMs intact bilaterally and conjunctivae normal Neuro oriented x3 Assessment & Plan Assessment/Plan (1) Type 2 diabetes mellitus with diabetic polyneuropathy: PLAN: Plan 1. Type 2 diabetes mellitus with diabetic polyneuropathy: We were consulted for the medical management of his diabetes. At home he is only on metformin for sugar control. We will start him on insulin sliding scale for overnight control of his blood sugars. He will follow-up with endocrinology as an outpatient for further management 2. Hypertension: Blood pressure is well-controlled in the hospital. He took losartan this morning. Will get his dose of losartan tomorrow with breakfast. 3. Dyslipidemia on rosuvastatin, continue same after discharge. Charges/Coding Visit Charges Office Visits / Consults: 26938 OV L3 Est
[2023-07-15] MEDS: Pravastatin 80 MG Tablet PO (22:56)
[2023-07-15] MEDS: Ciprofloxacin 250 MG Tablet PO (23:02)
[2023-07-15] MEDS: Doxycycline 100 MG CAPSULE PO (23:02)
[2023-07-15] MEDS: Insulin Lispro 100 UNIT/ML INSULN.PEN SC (23:02)
[2023-07-15 23:14] LABS: Bedside Glucose 213 mg/dL (74-106)
[2023-07-16 02:07] VITALS: PULSE 89; O2SAT 93
[2023-07-16 02:41] VITALS: BP 99/57; PULSE 93; RESP 18; TEMP 36.5; O2SAT 96
[2023-07-16] MEDS: Insulin Lispro 100 UNIT/ML INSULN.PEN SC ×2 (02:52→06:07)
[2023-07-16 03:13] LABS: Bedside Glucose 202 mg/dL (74-106)
[2023-07-16 05:16] VITALS: PULSE 90; O2SAT 94
[2023-07-16 06:02] VITALS: BP 105/58; PULSE 100; RESP 18; TEMP 36.6; O2SAT 96
[2023-07-16 06:32] LABS: Bedside Glucose 212 mg/dL (74-106)
[2023-07-16] MEDS: 0.9% Saline Lock 10 ML Syringe IV (06:49)
--- NOTE | 2023-07-16 08:02 | PN.HOSP_ITS ---
Reason for Visit Reason for Visit: Diagnoses Type 2 diabetes mellitus with diabetic polyneuropathy (07/15/23) Non-pressure chronic ulcer of right 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 (07/15/23) Charcot's joint, right ankle and foot (07/15/23) Charcot's joint, unspecified ankle and foot (07/15/23) Other acute osteomyelitis, left ankle and foot (07/15/23) Subjective Subjective Patient is a 43-year-old male who underwent Ankle Arthrodesis, Left Ankle, S ubtalar Joint Arthrodesis, Left posterior/lateral soft tissue balancing/release Equinus Deformity, Left and Midfoot osteotomy with percutaneous pinning, left on account of 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, Diabetic Neuropathy, Unstable left foot and ankle, the hospitalist service consulted to assist with patient medical comorbidities Objective Data Objective Data Vital Signs: Vital Signs Temp Pulse Resp BP Pulse Ox O2 Del Method O2 Flow Rate 97.9 F 100 18 105/58 L 96 Room Air 3 07/16/23 06:02 07/16/23 06:02 07/16/23 06:02 07/16/23 06:02 07/16/23 06:02 07/16/23 06:02 07/15/23 17:00 Oxygen Flow Rate (L/min) 3 Oxygen Delivery Method Room Air Weight: 121.5 kg Body Mass Index (BMI) 37.5 Intake & Output: Intake and Output for Last 24 Hours 07/14/23 07/15/23 07/16/23 23:59 23:59 23:59 Intake Total 4050 / 4050 Output Total 475 / 475 Balance 4050 / 3775 -475 / -475 Lab / Micro Data 07/15/23 16:35 Labs: Laboratory Results - last 24 hr 07/15/23 08:06: POC Glucose 174 H 07/15/23 16:35: Hgb 11.5 L, Hct 34.7 L 07/15/23 22:54: POC Glucose 213 H 07/16/23 02:52: POC Glucose 202 H 07/16/23 06:05: POC Glucose 212 H Radiography Diagnostic Testing: Radiology Impression Foot X-Ray 07/15/23 10:52 IMPRESSION: Fluoroscopic guidance for talonavicular fusion. Please refer to operative report for further information. Electronically Signed: Joel Baker MD at 18:02 EST , Physical Exam Narrative GENERAL: cooperative HEENT: Atraumatic; normocephalic EYES; Anicteric, Normal Conjunctiva NECK; supple, normal thyroid, RESPIRATORY: Diminished to auscultation CARDIOVASCULAR: Regular S1 S2, GI: soft, normoactive bowel sounds, : No Renal angle tenderness; EXTREMITIES: No edema, no clubbing, MUSCULOSKELETAL: Left foot in surgical dressing NEURO: Awake; no lateralizing signs. 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 Diabetes mellitus type II -patient's oral hypoglycemics held. Placed on long acting insulin, Accu-Cheks a.c. and at bedtime and covered with sliding scale insulin 3. Hypertension - Blood pressure controlled, home medications continued with dose adjustment as needed 4. Dyslipidemia ? Patient is on rosuvastatin plan is to resume on discharge 5. Class II obesity with BMI of 37.5 ? Complicating care weight loss advised 6. DVT prophylaxis ? Will defer to primary service Time spent in the patient's overall evaluation,decision-making process, review of diagnostic data, adjustment of management, discussion with other providers, nursing nursing and ancillary staff involved in patient's care documentation, 40 Minutes Charges/Coding Visit Charges Inpatient E&M: 86701 Subs Hosp L2
[2023-07-16] MEDS: Calcium Carbonate 500 MG Tablet PO (08:57)
[2023-07-16] MEDS: metFORMIN HCl 1,000 MG Tablet 1000 MG PO (08:57)
[2023-07-16] MEDS: Multivitamins,Therapeutic Tablet 1 TABLET PO (08:58)
[2023-07-16] MEDS: Omega-3 Acid Ethyl Esters 1 GM Capsule 2 GM PO (08:58)
[2023-07-16] MEDS: Ascorbic Acid 500 MG Tablet PO (08:58)
[2023-07-16] MEDS: Ciprofloxacin 250 MG Tablet PO (09:02)
[2023-07-16] MEDS: Doxycycline 100 MG CAPSULE PO (09:02)
[2023-07-16 10:00] VITALS: BP 86/54; PULSE 92; RESP 17; TEMP 37; O2SAT 94
--- NOTE | 2023-07-16 11:28 | PN_ITS ---
Subjective Subjective Patient 1 day postop left TTC fusion with midfoot osteotomy and percutaneous pinning for Charcot reconstruction. Patient denies constitutional symptoms. Patient denies pain due to diabetic neuropathy. No issues with voiding or and passing gas. Objective Data Objective Data Vital Signs: Vital Signs Temp Pulse Resp BP Pulse Ox O2 Del Method O2 Flow Rate 98.6 F 92 17 86/54 L 94 Room Air 3 07/16/23 10:00 07/16/23 10:00 07/16/23 10:00 07/16/23 10:00 07/16/23 10:00 07/16/23 10:00 07/15/23 17:00 Oxygen Flow Rate (L/min) 3 Oxygen Delivery Method Room Air Weight: 121.5 kg Body Mass Index (BMI) 37.5 Intake & Output: Intake and Output for Last 24 Hours 07/14/23 07/15/23 07/16/23 23:59 23:59 23:59 Intake Total 4050 / 4050 Output Total 475 / 475 Balance 4050 / 3775 -475 / -475 Lab / Micro Data 07/15/23 16:35 Labs: Laboratory Results - last 24 hr 07/15/23 16:35: Hgb 11.5 L, Hct 34.7 L 07/15/23 22:54: POC Glucose 213 H 07/16/23 02:52: POC Glucose 202 H 07/16/23 06:05: POC Glucose 212 H Radiography Diagnostic Testing: Radiology Impression Foot X-Ray 07/15/23 10:52 IMPRESSION: Fluoroscopic guidance for talonavicular fusion. Please refer to operative report for further information. Electronically Signed: Joel Baker MD at 18:02 EST , Physical Exam Narrative Neurovascular status unchanged Dermatologic medial lateral ankle incisions are well-approximated intact there is a full-thickness wound to medial ankle which was unable to be closed during surgery due to tension from significant deformity correction. Percutaneous pins intact. Plantar heel incision intact. Posterior Achilles incision intact. Proximal medial tibia incisions intact. No signs DVT bilaterally. Reduction of Charcot deformity left foot status post left TTC fusion with midfoot osteotomy. Assessment & Plan Assessment/Plan (1) Type 2 diabetes mellitus with diabetic polyneuropathy: PLAN: Exam performed Patient will maintain nonweightbearing left lower extremity for approximately 8 weeks Patient will use Lovenox for DVT prophylaxis he already has this at home Patient does not have any pain and will not require any pain medication secondary to diabetic neuropathy Dressing was changed incisional sites were examined and noted to be intact red ressed with Betadine Adaptic dry sterile dressing and a well-padded AO splint was applied to left lower extremity. Patient will discharge today and follow-up in 1 week. (2) Charcot's joint, right ankle and foot: (3) Charcot arthropathy of midfoot:
--- NOTE | 2023-07-16 11:31 | PCM.DC.SUM ---
Providers Date of Admission: 07/15/23 Primary Care Physician: Dr. Dom Villagomez, Consultations 07/15/23 18:12 Consult: Hospitalist Routine Consulting Provider: Wojciech Bowman Reason for Consult: med management EMERGENT Consult: No MD Notified: Yes Date Notified: 07/15/23 Time Notified: 19:05 Method of Notification: Text Reason For Visit: Left foot & ankle charcot reconstru Diagnosis Discharge Diagnosis (1) Type 2 diabetes mellitus with diabetic polyneuropathy: Status: Acute Code(s): E11.42 - Type 2 diabetes mellitus with diabetic polyneuropathy Plan: Exam performed Patient will maintain nonweightbearing left lower extremity for approximately 8 weeks Patient will use Lovenox for DVT prophylaxis he already has this at home Patient does not have any pain and will not require any pain medication secondary to diabetic neuropathy Dressing was changed incisional sites were examined and noted to be intact redressed with Betadine Adaptic dry sterile dressing and a well-padded AO splint was applied to left lower extremity. Patient will discharge today and follow-up in 1 week. (2) Charcot's joint, right ankle and foot: Status: Acute Code(s): M14.671 - Charcot's joint, right ankle and foot (3) Charcot arthropathy of midfoot: Status: Acute Code(s): M14.679 - Charcot's joint, unspecified ankle and foot Medications at Discharge Home Medications metformin 1,000 mg tablet 1,000 mg PO BID diabetes 11/14/21 pravastatin 40 mg tablet 80 mg PO QHS cholesterol 11/14/21 ascorbic acid (vitamin C) 500 mg tablet (Vitamin C) 500 mg PO DAILY 11/24/21 calcium citrate 200 mg (950 mg) tablet 200 mg PO DAILY 11/24/21 multivitamin 1 tab PO DAILY 11/24/21 omega-3 fatty acids 2 cap PO DAILY 11/24/21 losartan 25 mg tablet 25 mg PO DAILY 09/15/22 semaglutide 14 mg tablet (Rybelsus) 14 mg PO DAILY 07/06/23 ciprofloxacin HCl 750 mg tablet 750 mg PO BID #20 tabs 07/16/23 doxycycline hyclate 100 mg capsule 100 mg PO BID #20 caps 07/16/23 Hospital Course Summary of Care Provided Hospital Course: Patient admitted after left foot Charcot reconstruction due to length of procedure and significant bleeding throughout the case. Bleeding noted to be resolved today. Incisional sites were intact. Patient has no pain at current. Will be discharged to home. Physical Exam Narrative Neurovascular status unchanged Dermatologic medial lateral ankle incisions are well-approximated intact there is a full-thickness wound to medial ankle which was unable to be closed during surgery due to tension from significant deformity correction. Percutaneous pins intact. Plantar heel incision intact. Posterior Achilles incision intact. Proximal medial tibia incisions intact. No signs DVT bilaterally. Reduction of Charcot deformity left foot status post left TTC fusion with midfoot osteotomy. Weight / BMI Weight Weight: 121.5 kg Body Mass Index (BMI) 37.5 ABG / Lab / Microbiology Data 07/15/23 16:35 Laboratory: Laboratory Results - last 24 hr 07/15/23 16:35: Hgb 11.5 L, Hct 34.7 L 07/15/23 22:54: POC Glucose 213 H 07/16/23 02:52: POC Glucose 202 H 07/16/23 06:05: POC Glucose 212 H Radiography Diagnostic Testing: Radiology Impression Foot X-Ray 07/15/23 10:52 IMPRESSION: Fluoroscopic guidance for talonavicular fusion. Please refer to operative report for further information. Electronically Signed: Joel Baker MD at 18:02 EST , Meaningful Use Info Meaningful Use Diagnoses (Choose all that apply): None applicable Discharge Plan Admission Admit Date/Time: 07/15/23 15:43 Attending Provider: Wojciech Bowman Primary Care Provider: Dom Villagomez Consulting Providers: Jordi Perkins; Wojciech Bowman Instructions Additional Instructions / Restrictions: Keep dressing clean dry and intact to left lower extremity until follow-up Maintain nonweightbearing to left lower extremity Take prescriptions as directed Ice behind the knee as needed for pain and swelling 3 times a day for 15 minutes Keep elevated above the level of heart for edema and pain management Follow-up in 1 week Contact our clinic if there are any signs symptoms of DVT infection or strikethrough to the dressing patient has been counseled on these signs/symptoms. Discharge Orders/Prescriptions Prescriptions: New doxycycline hyclate 100 mg capsule 100 mg PO BID Qty: 20 0RF ciprofloxacin HCl 750 mg tablet 750 mg PO BID Qty: 20 0RF Continued pravastatin 40 mg tablet 80 mg PO QHS Patient Comments: take 1 tablet by mouth once daily metformin 1,000 mg tablet 1,000 mg PO BID multivitamin Tablet 1 tab PO DAILY ascorbic acid (vitamin C) [Vitamin C] 500 mg Tablet 500 mg PO DAILY calcium citrate 200 mg (950 mg) Tablet 200 mg PO DAILY omega-3 fatty acids Capsule 2 cap PO DAILY losartan 25 mg Tablet 25 mg PO DAILY Rybelsus 14 mg tablet 14 mg PO DAILY Referrals / Follow Up: Jordi Perkins DPM [Med Staff - Active Staff] - Dom Villagomez DO [Primary Care Provider] - Disposition Disposition (needs filled in before D/C Order can be placed): Home, Self Care
[2023-07-16 11:39] VITALS: BP 98/57; PULSE 98; RESP 16; TEMP 37.1; O2SAT 96
[2023-07-18 07:22] LABS: Bedside Glucose 234 mg/dL (74-106)
[2023-07-18 07:22] LABS: Bedside Glucose 248 mg/dL (74-106)
== END 2023-07-16 13:22 | disposition home or self-care (01) ==
LOC: SDC 15:59 → MS3 21:18
PROVIDERS: Admitting Provider Podiatrist; PCP Student in an Organized Health Care Education/Training Program; Visit Provider Internal Medicine
PROC: (CPT 28725; principal; 2023-07-15 09:00)
DX: E11.610 Type 2 diabetes mellitus with diabetic neuropathic arthropathy (principal); E11.622 Type 2 diabetes mellitus with other skin ulcer; L97.312 Non-pressure chronic ulcer of right 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; M86.172 Other acute osteomyelitis, left ankle and foot; E11.42 Type 2 diabetes mellitus with diabetic polyneuropathy; E11.69 Type 2 diabetes mellitus with other specified complication; Q66.229 Congenital metatarsus adductus, unspecified foot; Z79.899 Other long term (current) drug therapy; Z79.84 Long term (current) use of oral hypoglycemic drugs; I10 Essential (primary) hypertension; E78.5 Hyperlipidemia, unspecified; E66.9 Obesity, unspecified; Z68.37 Body mass index [BMI] 37.0-37.9, adult
CPT/HCPCS: 28725; 01480; 64445; 73630; 76000; 82962; 85014; 85018; 88305; 88307; 88311; 99221; C1713; J7120; A4216; G0378; J2405

== ENCOUNTER 2023-08-30 10:44 | Inpatient (IN) | payer BC, SELFPAY ==
[2023-08-30] VITALS (8 sets, daily range): BP systolic 118–145; BP diastolic 67–92; PULSE 82–101; RESP 14–18; TEMP 35.6–36.9; O2SAT 96–100; BMI 36.3; BMI 35.9
--- NOTE | 2023-08-30 11:50 | EX.ED.DYSGE1 ---
HPI History of Present Illness Chief Complaint: Abscess Informant: patient Narrative Narrative: 43-year-old type II diabetic male presenting to the emergency room after being referred here by the wound clinic. Dr. Perkins called me from the wound clinic stating that the patient has abscess of the left foot. Reportedly the patient underwent Charcot foot surgery with Dr. Perkins 6 weeks ago. He has been following up weekly in the wound clinic. Today was noted to have purulence draining from wound. Patient denies any recent fevers. Notes there is been some erythema of the foot. He has polyneuropathy and notes no significant change in discomfort of the foot. He has not been on antibiotics for about 2 weeks. [facility] Medical History Dietary restriction Gas gangrene of foot History of edema Hypertension Osteomyelitis of ankle or foot, left, acute Type 2 diabetes mellitus with diabetic polyneuropathy Wears glasses Home Medications metformin 1,000 mg tablet 1,000 mg PO BID diabetes 11/14/21 [History Last Taken 08/30/23] calcium citrate 200 mg (950 mg) tablet 200 mg PO DAILY SUPPLEMENT 11/24/21 [History Last Taken 08/30/23] multivitamin 1 tab PO DAILY SUPPLEMENT 11/24/21 [History Last Taken 08/30/23] losartan 25 mg tablet 25 mg PO DAILY BLOOD PRESSURE 09/15/22 [History Last Taken 08/30/23] semaglutide 14 mg tablet (Rybelsus) 14 mg PO DAILY DIABETES 07/06/23 [History Last Taken 08/30/23] ascorbic acid (vitamin C) 1,000 mg tablet,extended release (C Complex) 1,000 mg PO DAILY SUPPLEMENT 08/30/23 [History Last Taken 08/30/23] omega 6-bnw-pqd-fish oil 300 mg-1,000 mg capsule (Fish Oil) 2 cap PO DAILY SUPPLEMENT 08/30/23 [History Last Taken 08/30/23] pravastatin 80 mg tablet 80 mg PO QHS CHOLESTEROL 08/30/23 [History Last Taken 08/29/23] Allergy/AdvReac Type Severity Reaction Status Date / Time Penicillins [PCN] Allergy Rash Verified 08/30/23 10:45 Surgical History Hx of eye surgery Hx of foot surgery Hx of foot surgery Social History Smoking Status: Never smoker ROS ROS ED Constitutional Constitutional ED: Denies chills, fever(s) or weight loss Eyes Eyes: Denies change in vision or diplopia ENT ENT ED: Denies ear pain, rhinorrhea or sore throat Cardiovascular Cardiovascular: Denies chest pain, orthopnea, palpitations or racing heartbeat Respiratory/Chest Respiratory/Chest: Denies cough, dyspnea or orthopnea Gastrointestinal Gastrointestinal: Denies abdominal pain, diarrhea, nausea or vomiting Genitourinary Genitourinary ED: Denies dysuria, hematuria or urinary frequency Musculoskeletal Musculoskeletal: Reports other Details: See history of present illness ; Denies arthralgias or myalgias Integumentary Reports other Details: See history of present illness ; Denies abscess or rash Neurologic Neurologic: Denies headache(s) or weakness Psychiatric Psychiatric: Denies anxiety, depression, suicidal ideation or suicidal thoughts Endocrine Endocrinology: Denies polydipsia, polyphagia or polyuria Allergic/Immunologic Allergic/Immunologic ED: Denies mouth swelling, tongue swelling or urticaria EXAM Physical Exam Const Vital Signs: 08/30/23 10:45 08/30/23 11:47 08/30/23 12:00 Temperature 96.1 F L 98.2 F 98.2 F Temperature Source Temporal Temporal Temporal Pulse Rate 101 H 82 92 Respiratory Rate 18 16 16 Blood Pressure 145/89 H 132/79 H 128/74 H Blood Pressure Mean 107 96 92 Pulse Ox 100 98 98 Oxygen Delivery Method Room Air Room Air Room Air 08/30/23 12:27 Temperature Temperature Source Pulse Rate 88 Respiratory Rate 14 Blood Pressure 129/75 H Blood Pressure Mean 93 Pulse Ox 98 Oxygen Delivery Method Positive well nourished and well developed General Appearance ED: well developed HEENT Reports normocephalic, head/scalp atraumatic and moist mucous membranes Eyes PERRL and EOMs intact bilaterally Neck no lymphadenopathy, supple and no JVD Resp normal respiratory effort and clear to auscultation bilaterally Cardio regular rate, regular rhythm and no murmurs GI normal to inspection, nondistended, normoactive bowel sounds and non-tender Palpation: soft Back/Spine no CVA tenderness and normal ROM Extremity Extremity Narrative: The left foot dressing was taken down. There is there is surgical hardware present. A wound both medially and laterally near the malleoli. There is some erythema around the lateral aspect of the left foot and ankle. I do not appreciate any lymphedema. The calf is nontender. Neuro oriented x3 and CN's II-XII intact bilaterally Sensorium / Orientation: alert Motor Exam: strength 5/5 throughout Psych mental status grossly normal Mood & Affect: Negative for depressed or tearful Skin no rashes or lesions noted and no wounds MDM MDM MDM Narrative Medical decision making narrative: A culture of the purulence from the wound was collected by Dr. Perkins at the wound clinic and was sent for culture. Blood cultures were also obtained. Antibiotics were requested from Dr. Perkins were vancomycin and cefepime were ordered. No t radiologic imaging was obtained. I did discuss this with Dr. Perkins who does not request any at this time. The plan is admission into the hospital with plan for surgery on . History & Record Review Discussion w/independent historian: Patient Additional record(s) reviewed:: Prior inpatient record, Prior ED visit and Prior labs Lab Data Attestation: I reviewed the patient's lab results. Labs: Laboratory Results - last 24 hr 08/30/23 11:56 WBC 5.0 RBC 4.75 Hgb 11.4 L Hct 37.4 L MCV 78.7 L MCH 24.0 L MCHC 30.5 L RDW Std Deviation 39.0 RDW Coeff of Venita 13.5 Plt Count 267 MPV 9.7 Immature Gran % (Auto) 0.400 Neut % (Auto) 66.3 Lymph % (Auto) 17.1 L Rabun % (Auto) 7.8 Eos % (Auto) 8.0 H Baso % (Auto) 0.4 Absolute Neuts (auto) 3.3 Absolute Lymphs (auto) 0.86 Nucleated RBC % 0 Sodium 139 Potassium 4.0 Chloride 106 Carbon Dioxide 27.0 Anion Gap 6 BUN 17 Creatinine 0.92 Estim Creat Clear Calc 138.19 Est GFR (MDRD) Af Amer 117 Est GFR (MDRD) Non-Af 97 BUN/Creatinine Ratio 18.6 Glucose 107 H Calcium 9.8 Total Bilirubin 0.50 AST 17 ALT 22 Alkaline Phosphatase 114 Total Protein 7.8 Albumin 3.7 Globulin 4.1 Albumin/Globulin Ratio 0.9 Discharge Plan Dx/Rx/DC Orders Clinical Impression: Type 2 diabetes mellitus with diabetic polyneuropathy, Diabetic infection of left foot, Charcot foot due to diabetes mellitus Disposition Disposition: Acute Care Hospital [facility]
[2023-08-30 12:17] LABS: Absolute Lymphocyte Count 0.86 X10^3/uL (0.83-4.51); Absolute Neutrophil Count 3.3 X10^3/uL (2.0-7.7); Basophil# 0.02 X10^3/uL; Basophil% 0.4 % (0-1); Hematocrit 37.4 % (40-54); Hemoglobin 11.4 g/dL (13.0-16.5); Lymphocyte # 0.86 X10^3/ul (0.83-4.51); Lymphocyte % 17.1 % (19-41); Mean Corp Hgb Conc 30.5 g/dL (32-36); Mean Corpuscular Volume 78.7 fL (80-94); Mean Platelet Vol. 9.7 fl (6.2-12.0); Monocyte# 0.39 X10^3/uL; Monocyte% 7.8 % (0-10); NRBC Flagged by Analyzer 0 % (0-5); Neutrophil # 3.34 X10^3/uL (2.7-7.7); Neutrophil % 66.3 % (47-70); Platelet Count 267 K/mm3 (150-450); RBC Distribution Width CV 13.5 % (11.6-14.6); Red Blood Count 4.75 M/mm3 (4.6-6.2)
[2023-08-30] MEDS: Cefepime HCl 1 GM in 0.9% Normal Saline (50mL MB+) 50 ML IV (12:21)
--- NOTE | 2023-08-30 12:26 | ED.RN ---
Pt arrived with wound cultures from carbide grinder. Specimens sent to lab by this RN.
[2023-08-30 12:29] LABS: ALB/GLOB Ratio 0.9 RATIO (0.9-2.4); AST(SGOT) 17 U/L (15-37); Alanine Aminotransfer ALT/SGPT 22 U/L (16-61); Albumin, Serum 3.7 g/dL (3.2-5.0); Alkaline Phosphatase 114 U/L (45-117); Anion Gap 6 (5-15); BUN 17 mg/dL (7-18); BUN/Creat Ratio 18.6 RATIO (10-20); Calcium,Total 9.8 mg/dL (8.5-10.1); Chloride 106 mmol/L (98-107); Creatinine, Serum 0.92 mg/dL (0.70-1.30); EST Glomerular Filtration Rate 97 mL/min (>60); Est Glom Filt Rate - Afr Amer 117 mL/min (>60); Estimated Creatinine Clearance 138.19 ml/min; Globulin 4.1 g/dL (2.2-4.2); Glucose 107 mg/dL (74-106); Protein, Total 7.8 g/dL (6.4-8.2); Sodium Level 139 mmol/L (136-145)
[2023-08-30] MEDS: Vancomycin HCl 2,000 MG in 0.9% Normal Saline (500mL Bag) 500 ML 250 MG IV (13:10)
--- NOTE | 2023-08-30 13:11 | HP.PCM_ITS ---
HPI - General General Date of Admission: 08/30/23 Date of Service: 08/30/23 Chief Complaint: abscess HPI Narrative SNEHA WEI, is a 43 M with a PMH as outlined who presents via the ED on 08/30/2023 with a complaitn of abscess of the left foot. HE went to the wound clinic where he has been seeing podiatry. HE had Charcot foot surgery ~ 6 weeks ago. TOday he was noted to be having purulent drainage from the left foot wound. He denied any fever, chills or increased pain. Review of systms was otherwise negative. He denied any significant pain due to neuropathy but admitted to redness and swelling of the left foot. Vitals in the ED were BP of 118/67, SD of 87, RR of 15 and temp of 98.2F. He was saturating at 98% on room air. CBC was largely unremarkable with wbc of 5. Chemistry was unremarkable. Wound cultures were obtained, and patient is being admitted to be managed for infected left foot diabetic wound. 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 Wears glasses Home Medications metformin 1,000 mg tablet 1,000 mg PO BID diabetes 11/14/21 [History Last Taken 08/30/23] calcium citrate 200 mg (950 mg) tablet 200 mg PO DAILY SUPPLEMENT 11/24/21 [History Last Taken 08/30/23] multivitamin 1 tab PO DAILY SUPPLEMENT 11/24/21 [History Last Taken 08/30/23] losartan 25 mg tablet 25 mg PO DAILY BLOOD PRESSURE 09/15/22 [History Last Taken 08/30/23] semaglutide 14 mg tablet (Rybelsus) 14 mg PO DAILY DIABETES 07/06/23 [History Last Taken 08/30/23] ascorbic acid (vitamin C) 1,000 mg tablet,extended release (C Complex) 1,000 mg PO DAILY SUPPLEMENT 08/30/23 [History Last Taken 08/30/23] omega 1-mlo-yga-fish oil 300 mg-1,000 mg capsule (Fish Oil) 2 cap PO DAILY SUPPLEMENT 08/30/23 [History Last Taken 08/30/23] pravastatin 80 mg tablet 80 mg PO QHS CHOLESTEROL 08/30/23 [History Last Taken 08/29/23] Allergy/AdvReac Type Severity Reaction Status Date / Time Penicillins [PCN] Allergy Rash Verified 08/30/23 10:45 Surgical History Hx of eye surgery Hx of foot surgery Hx of foot surgery Social History Smoking Status: Never smoker ROS Review of Systems ROS Unobtainable: Denies due to encephalopathy Constitutional Constitutional: Denies anorexia, chills, fatigue, fever(s), malaise or weakness Eyes Eyes: Denies change in vision ENT HEENT: Denies dysphagia or throat swelling Cardiovascular Cardiovascular: Denies chest pain, edema, orthopnea, palpitations, paroxysmal nocturnal dyspnea or syncope Respiratory/Chest Respiratory/Chest: Denies cough, shortness of breath at rest, shortness of breath with exertion or wheezing Gastrointestinal Gastrointestinal: Denies abdominal pain, diarrhea, dyspepsia, nausea or vomiting Genitourinary Genitourinary: Denies dysuria or urinary frequency Musculoskeletal Musculoskeletal: Denies back pain, extremity pain, joint stiffness, joint swelling or muscle weakness Integumentary Integumentary: Denies dry skin Neurologic Neurologic: Denies confusion, dizziness, focal weakness, headache(s), lack of coordination, numbness, seizures or weakness Psychiatric Psychiatric: Denies anxiety Endocrine Endocrinology: Denies change in body appearance Vital Signs Vital Signs Vital Signs: 08/30/23 10:45 08/30/23 11:47 08/30/23 12:00 Temperature 96.1 F L 98.2 F 98.2 F Temperature Source Temporal Temporal Temporal Pulse Rate 101 H 82 92 Respiratory Rate 18 16 16 Blood Pressure 145/89 H 132/79 H 128/74 H Blood Pressure Mean 107 96 92 Pulse Ox 100 98 98 Oxygen Delivery Method Room Air Room Air Room Air 08/30/23 12:27 08/30/23 13:00 Temperature 98.2 F Temperature Source Temporal Pulse Rate 88 87 Respiratory Rate 14 15 Blood Pressure 129/75 H 118/67 Blood Pressure Mean 93 84 Pulse Ox 98 98 Oxygen Delivery Method Room Air Weight Weight: 260 lb 9.382 oz Body Mass Index (BMI) 36.3 Physical Exam Const alert, oriented x3, no apparent distress and well nourished General Appearance: cooperative and well developed HEENT normocephalic, head/scalp atraumatic, moist oral mucous membranes, oropharynx normal and gingiva normal Eyes PERRL and EOMs intact bilaterally Neck no lymphadenopathy, supple, no JVD and thyroid normal Lymph Lymphatic: no lymphadenopathy noted and no lymphedema noted Resp normal respiratory effort, normal air movement and clear to auscultation bilaterally Cardio regular rate, regular rhythm, S1 normal heart sound, S2 normal heart sound and no murmurs Palpation: normal PMI GI normal to inspection, nondistended, normoactive bowel sounds, soft to palpation, non-tender and non-distended Extremity Extremity Narrative: left foot wrapped in bandage. Neuro CN's II-XII intact bilaterally, no focal motor deficits, no sensory deficits noted and deep tendon reflexes 2+ bilaterally Motor Exam: strength 5/5 throughout and general weakness Psych thought process normal, cooperative and affect normal Appearance: appropriate Results Lab / Micro Data 08/30/23 11:56 08/30/23 11:56 Labs: Laboratory Results - last 24 hr 08/30/23 11:56: WBC 5.0, RBC 4.75, Hgb 11.4 L, Hct 37.4 L, MCV 78.7 L, MCH 24.0 L, MCHC 30.5 L, RDW Std Deviation 39.0, RDW Coeff of Venita 13.5, Plt Count 267, MPV 9.7, Immature Gran % (Auto) 0.400, Neut % (Auto) 66.3, Lymph % (Auto) 17.1 L , [place] % (Auto) 7.8, Eos % (Auto) 8.0 H, Baso % (Auto) 0.4, Absolute Neuts (auto) 3.3, Absolute Lymphs (auto) 0.86, Nucleated RBC % 0, Sodium 139, Potassium 4.0, Chloride 106, Carbon Dioxide 27.0, Anion Gap 6, BUN 17, Creatinine 0.92, Estim Creat Clear Calc 138.19, Est GFR (MDRD) Af Amer 117, Est GFR (MDRD) Non-Af 97, BUN/Creatinine Ratio 18.6, Glucose 107 H, Calcium 9.8, Total Bilirubin 0.50, AST 17, ALT 22, Alkaline Phosphatase 114, Total Protein 7.8, Albumin 3.7, Globulin 4.1, Albumin/Globulin Ratio 0.9 Assessment & Plan Assessment/Plan (1) Cellulitis of left lower limb: (2) Abscess of bursa, left ankle and foot: PLAN: Plan #Diabetic foot abscess and cellulitis of the LLE * Admit to [facility]. To have Charcot foot surgery 6 weeks ago podiatry. * . Consulted. Noted to have increasing redness and discharge from the foot. * Blood wound and blood cultures. Consult podiatry. * Start on IV vancomycin and cefepime * Defer need for any further imaging to podiatry. * #Hypertension: On losartan #Type 2 diabetes mellitus: On metformin and Rybelsus #Hyperlipidemia: On statin DVT prophylaxis: Lovenox Charges/Coding Visit Charges Inpatient E&M: 92639 Init Hosp L3
--- NOTE | 2023-08-30 13:17 | NURSING ---
MED SURG KORAM POST OP DIABETIC FOOT INFECTION
--- NOTE | 2023-08-30 14:38 | PCM.RX.CS ---
Consult Antibiotic Management Pharmacy has been consulted to manage selected antibiotic: Vancomycin Type of Intervention Type of Consult: New start Suspected Infection Suspected Infection: Skin/Soft tissue Prior Doses of Antibiotics Prior Doses of Antibiotics Received/Current Regimen: received vanc 2000mg IV x1 in E.R. starting at 13:10 today Labs Labs: Sodium 139 mmol/L (136-145) 08/30/23 11:56 Potassium 4.0 mmol/L (3.5-5.1) 08/30/23 11:56 Chloride 106 mmol/L (98-107) 08/30/23 11:56 Carbon Dioxide 27.0 mmol/L (21.0-32.0) 08/30/23 11:56 Anion Gap 6 (5-15) 08/30/23 11:56 BUN 17 mg/dL (7-18) 08/30/23 11:56 Creatinine 0.92 mg/dL (0.70-1.30) 08/30/23 11:56 Est GFR (MDRD) Af Amer 117 mL/min (>60) 08/30/23 11:56 Est GFR (MDRD) Non-Af 97 mL/min (>60) 08/30/23 11:56 BUN/Creatinine Ratio 18.6 RATIO (10-20) 08/30/23 11:56 Glucose 107 mg/dL (74-106) H 08/30/23 11:56 Dosing Weight Weight used for dosin kg Estimated Creatinine Clearance Estimated Creatinine Clearance: 138ml/min Goal Trough Goal Trough: 15-20 mcg/mL Pharmacy Plan for Drug Dosing Pharmacy Plan for Drug Dosing: Starting 8 hours after the E.R. dose, will continue with vanc 1500mg IV q8h per [facility] dosing protocol. Will check a trough before the 4th total dose. Pharmacy Service will continue to monitor and adjust dosing as required. Follow-Up Labs Follow-Up Labs: Trough: Vancomycin Date/Time Labs Ordered Labs to be done on [date and time ordered]: 08/31/23 12:30
[2023-08-30] MEDS: 0.9% Normal Saline (1000mL) 1,000 ML 75 ML IV (15:12)
--- NOTE | 2023-08-30 15:43 | WOUNDNOTE ---
wound photo: left foot
--- NOTE | 2023-08-30 15:44 | WOUNDNOTE ---
wound photo: left foot
[2023-08-30] MEDS: Glucerna Shake 120 ML LIQUID PO (17:30)
[2023-08-30] MEDS: metFORMIN HCl 1,000 MG Tablet 1000 MG PO (17:30)
[2023-08-30 18:04] LABS: Bedside Glucose 81 mg/dL (74-106)
[2023-08-30] MEDS: Vancomycin HCl 1,500 MG in 0.9% Normal Saline (500mL Bag) 500 ML 150 MG IV (22:22)
[2023-08-30] MEDS: Pravastatin 80 MG Tablet PO (22:34)
[2023-08-30 23:55] LABS: Bedside Glucose 95 mg/dL (74-106)
[2023-08-31] MEDS: Cefepime HCl 1 GM in 0.9% Normal Saline (50mL MB+) 50 ML IV ×3 (01:57→20:19)
[2023-08-31 04:36] VITALS: BP 133/87; PULSE 88; RESP 18; TEMP 36.2; O2SAT 99
[2023-08-31] MEDS: Vancomycin HCl 1,500 MG in 0.9% Normal Saline (500mL Bag) 500 ML 150 MG IV (04:40)
[2023-08-31 07:20] LABS: Bedside Glucose 98 mg/dL (74-106)
[2023-08-31 07:58] LABS: Absolute Neutrophil Count 2.7 X10^3/uL (2.0-7.7); Basophil# 0.01 X10^3/uL; Basophil% 0.2 % (0-1); Eosinophils% 9.4 % (0-5); Hematocrit 36.2 % (40-54); Hemoglobin 10.7 g/dL (13.0-16.5); Lymphocyte % 18.8 % (19-41); Mean Corp Hgb Conc 29.6 g/dL (32-36); Mean Corpuscular Hgb 23.8 pg (27.0-32.0); Mean Corpuscular Volume 80.6 fL (80-94); Mean Platelet Vol. 9.7 fl (6.2-12.0); Monocyte# 0.36 X10^3/uL; Monocyte% 8.5 % (0-10); NRBC Flagged by Analyzer 0 % (0-5); Neutrophil # 2.68 X10^3/uL (2.7-7.7); Neutrophil % 62.9 % (47-70); Platelet Count 257 K/mm3 (150-450); RBC Distribution Width CV 13.6 % (11.6-14.6); RBC Distribution Width SD 40.1 fl (35.1-43.9); Red Blood Count 4.49 M/mm3 (4.6-6.2); White Blood Count 4.3 K/mm3 (4.4-11.0)
[2023-08-31 08:15] VITALS: BP 123/81; PULSE 91; RESP 16; TEMP 36.6; O2SAT 97
[2023-08-31 08:22] LABS: Anion Gap 1 (5-15); BUN 16 mg/dL (7-18); BUN/Creat Ratio 22.5 RATIO (10-20); Calcium,Total 9.2 mg/dL (8.5-10.1); Chloride 110 mmol/L (98-107); Creatinine, Serum 0.71 mg/dL (0.70-1.30); EST Glomerular Filtration Rate 129 mL/min (>60); Est Glom Filt Rate - Afr Amer 156 mL/min (>60); Estimated Creatinine Clearance 178.15 ml/min; Glucose 97 mg/dL (74-106); Potassium 3.9 mmol/L (3.5-5.1); Sodium Level 138 mmol/L (136-145)
[2023-08-31 08:40] VITALS: BP 142/92; PULSE 88; RESP 16; TEMP 36.5; O2SAT 98
[2023-08-31] MEDS: Calcium Carbonate 500 MG Tablet PO (08:42)
[2023-08-31] MEDS: Enoxaparin 40 MG/0.4 ML Syringe SC (08:42)
[2023-08-31] MEDS: Multivitamins,Therapeutic Tablet 1 TABLET PO (08:42)
[2023-08-31] MEDS: metFORMIN HCl 1,000 MG Tablet 1000 MG PO ×2 (08:42→16:50)
[2023-08-31] MEDS: Losartan Potassium 25 MG Tablet PO (08:42)
[2023-08-31] MEDS: Glucerna Shake 120 ML LIQUID PO ×2 (10:51→16:50)
[2023-08-31 11:12] LABS: Bedside Glucose 128 mg/dL (74-106)
--- NOTE | 2023-08-31 11:21 | CASEMGMT ---
BUDDY DAVIS Assessment Face to Face with patient for initial transition planning/care coordination assessment. BUDDY DAVIS introduced self and role at [facility], pt voices understanding. Pt is A&Ox4 and is resting comfortably in chair and is calm. Care providers, pharmacy, and demographics verified. Admitting dx: Diabetic Foot Abscess and Cellulitis LACE Strata: 2 PCP: Dahlia Specialists: Gregorio Cervantes Pharmacy: [facility] Insurance: [place] Prescription Benefit: Yes LNOK: Katie Varner (Mom) Living Arrangements: Pt lives with his mother and step dad in a single story home with a basement. Pt states there are 4 steps to enter the home. Pt states that he does not use the steps to enter the home or the steps to get to the basement. Pt states he only stays in the basement and that there is access to the basement from the side of the house and that he uses a golf cart to drive down to the door from the drive way. ADLs/IADLs: States ind Transportation: Pt states he cannot drive now and that his parents drive DME: Pt has a cane at home but does not use now. Pt uses a WC and WW at home. Shower chair. Shower grab bars. Knee scooter but unable to use d/t balance issues. Denies oxygen use. Pt states that he has a glucometer and enough supplies to check his BS. HHC/SNF: Denies SNF. States he was seen by [facility] SN and PT x 1 year ago for Lt foot infection. States he went to [facility] last September for 2 months for Rt ankle reconstruction. Wound: Pt states he was going to the wound clinic in [place] once per week under Dr. Perkins for his dressing changes. Pt?s goal: DC home Plan: I and D tomorrow. Will follow for pt needs. Cristel Lay RN, CM
--- NOTE | 2023-08-31 11:46 | PN_ITS ---
Subjective Subjective Patient seen and examined. He feels well today and has no active complaints. He had an uneventful night. Review of systems is otherwise negative. He is for surgery tomorrow Objective Data Objective Data Vital Signs: Vital Signs Temp Pulse Resp BP Pulse Ox O2 Del Method 97.7 F L 88 16 142/92 H 98 Room Air 08/31/23 08:40 08/31/23 08:40 08/31/23 08:40 08/31/23 08:40 08/31/23 08:40 08/31/23 08:40 Oxygen Delivery Method Room Air Weight: 258 lb 0.006 oz Body Mass Index (BMI) 35.9 Intake & Output: Intake and Output for Last 24 Hours 08/29/23 08/30/23 08/31/23 23:59 23:59 23:59 Intake Total 1040 / 1040 2160.00 / 2160.00 Balance 1040 / 1040 2160.00 / 2160.00 Lab / Micro Data 08/31/23 06:54 08/31/23 06:54 Labs: Laboratory Results - last 24 hr 08/30/23 11:56: WBC 5.0, RBC 4.75, Hgb 11.4 L, Hct 37.4 L, MCV 78.7 L, MCH 24.0 L, MCHC 30.5 L, RDW Std Deviation 39.0, RDW Coeff of Venita 13.5, Plt Count 267, MPV 9.7, Immature Gran % (Auto) 0.400, Neut % (Auto) 66.3, Lymph % (Auto) 17.1 L , [place] % (Auto) 7.8, Eos % (Auto) 8.0 H, Baso % (Auto) 0.4, Absolute Neuts (auto) 3.3, Absolute Lymphs (auto) 0.86, Nucleated RBC % 0, Sodium 139, Potassium 4.0, Chloride 106, Carbon Dioxide 27.0, Anion Gap 6, BUN 17, Creatinine 0.92, Estim Creat Clear Calc 138.19, Est GFR (MDRD) Af Amer 117, Est GFR (MDRD) Non-Af 97, BUN/Creatinine Ratio 18.6, Glucose 107 H, Calcium 9.8, To yumiko Bilirubin 0.50, AST 17, ALT 22, Alkaline Phosphatase 114, Total Protein 7.8, Albumin 3.7, Globulin 4.1, Albumin/Globulin Ratio 0.9 08/30/23 17:24: POC Glucose 81 08/30/23 22:30: POC Glucose 95 08/31/23 06:45: POC Glucose 98 08/31/23 06:54: WBC 4.3 L, RBC 4.49 L, Hgb 10.7 L, Hct 36.2 L, MCV 80.6, MCH 23.8 L, MCHC 29.6 L, RDW Std Deviation 40.1, RDW Coeff of Venita 13.6, Plt Count 257, MPV 9.7, Immature Gran % (Auto) 0.200, Neut % (Auto) 62.9, Lymph % (Auto) 18.8 L, [place] % (Auto) 8.5, Eos % (Auto) 9.4 H, Baso % (Auto) 0.2, Absolute Neuts (auto) 2.7, Absolute Lymphs (auto) 0.80 L, Nucleated RBC % 0, Sodium 138, Potassium 3.9, Chloride 110 H, Carbon Dioxide 27.0, Anion Gap 1 L, BUN 16, Creatinine 0.71, Estim Creat Clear Calc 178.15, Est GFR (MDRD) Af Amer 156, Est GFR (MDRD) Non-Af 129, BUN/Creatinine Ratio 22.5 H, Glucose 97, Calcium 9.2 08/31/23 10:50: POC Glucose 128 H Physical Exam Const alert, oriented x3, no apparent distress and well nourished General Appearance: cooperative and well developed HEENT normocephalic, head/scalp atraumatic, moist oral mucous membranes, oropharynx normal and gingiva normal Eyes PERRL and EOMs intact bilaterally Neck no lymphadenopathy, supple, no JVD and thyroid normal Lymph Lymphatic: no lymphadenopathy noted and no lymphedema noted Resp normal respiratory effort, normal air movement and clear to auscultation bilaterally Cardio regular rate, regular rhythm, S1 normal heart sound, S2 normal heart sound and no murmurs Palpation: normal PMI GI normal to inspection, nondistended, normoactive bowel sounds, soft to palpation, non-tender and non-distended Extremity Extremity Narrative: left foot wrapped in bandage. Neuro CN's II-XII intact bilaterally, no focal motor deficits, no sensory deficits noted and deep tendon reflexes 2+ bilaterally Motor Exam: strength 5/5 throughout and general weakness Psych thought process normal, cooperative and affect normal Appearance: appropriate Assessment & Plan Assessment/Plan (1) Cellulitis of left lower limb: (2) Abscess of bursa, left ankle and foot: PLAN: Plan #Diabetic foot abscess and cellulitis of the LLE * Podiatry Consulted. * Blood wound and blood cultures. Consult podiatry. * on IV vancomycin and cefepime * wound and blood cultures ordered. * for surgery tomorrow * #Hypertension: On losartan. IV hydralazine prn #Type 2 diabetes mellitus: On metformin and Rybelsus. ISS. Accuchecks ACHS #Hyperlipidemia: On statin DVT prophylaxis: Lovenox Charges/Coding Visit Charges Inpatient E&M: 64812 Subs Hosp L2
[2023-08-31 14:03] LABS: Vancomycin, Trough Level 24.8 ug/mL (5.0-15.0)
--- NOTE | 2023-08-31 14:28 | PCM.RX.CS ---
Consult Antibiotic Management Pharmacy has been consulted to manage selected antibiotic: Vancomycin Type of Intervention Type of Consult: Follow-up Labs Labs: Sodium 138 mmol/L (136-145) 08/31/23 06:54 Potassium 3.9 mmol/L (3.5-5.1) 08/31/23 06:54 Chloride 110 mmol/L (98-107) H 08/31/23 06:54 Carbon Dioxide 27.0 mmol/L (21.0-32.0) 08/31/23 06:54 Anion Gap 1 (5-15) L 08/31/23 06:54 BUN 16 mg/dL (7-18) 08/31/23 06:54 Creatinine 0.71 mg/dL (0.70-1.30) 08/31/23 06:54 Est GFR (MDRD) Af Amer 156 mL/min (>60) 08/31/23 06:54 Est GFR (MDRD) Non-Af 129 mL/min (>60) 08/31/23 06:54 BUN/Creatinine Ratio 22.5 RATIO (10-20) H 08/31/23 06:54 Glucose 97 mg/dL (74-106) 08/31/23 06:54 Vancomycin Trough 24.8 ug/mL (5.0-15.0) H 08/31/23 12:45 Microbiology Microbiology: Microbiology 08/30/23 11:58 Wound - Left Foot Gram Stain - Final Goal Trough Goal Trough: 15-20 mcg/mL Pharmacy Plan for Drug Dosing Pharmacy Plan for Drug Dosing: VANCOMYCIN LEVEL RECEIVED Current Vancomycin Dose: 1500mg IV Q8hr Number of Doses Received: 3 (loading dose + 2 scheduled doses) Vancomycin Level: 24.8 Hours Since Last Dose: 8hrs Renal Function: 0.71 Renal Function Trend: stable Lab/Micro: WCx growing poss enterococcus spp (no sensitivity data) Vancomycin Plan/Comments: Patient had a trough drawn that resulted in a value of 24.8 (goal 15-20). The patient's trough is above therapeutic goal at this time. Will hold subsequent doses of vancomycin until trough is <20. Will draw a random level in 12 hours to assess trough value at that time. Until then, HOLDING vancomycin. Pending Level: *RANDOM* level 09/01/23 @0100 Pharmacy Service will continue to monitor and adjust dosing as required.
[2023-08-31 15:27] VITALS: BP 120/68; PULSE 89; RESP 16; TEMP 37.3; O2SAT 99
[2023-08-31 17:14] LABS: Bedside Glucose 127 mg/dL (74-106)
[2023-08-31 20:15] VITALS: BP 123/81; PULSE 91; RESP 16; TEMP 36.7; O2SAT 97
[2023-08-31] MEDS: Pravastatin 80 MG Tablet PO (20:19)
[2023-08-31 23:34] LABS: Bedside Glucose 106 mg/dL (74-106)
[2023-09-01] VITALS (9 sets, daily range): BP systolic 102–137; BP diastolic 64–82; PULSE 80–91; RESP 16–18; TEMP 36.3–36.7; O2SAT 94–99; BMI 36.0
--- NOTE | 2023-09-01 | BON_PTH ---
PATIENT: SNEHA WEI Jr. LOC: MS3 U#:[id number] AGE/SX: 43/M ROOM: ND317 RE08/30/[address]: Dr. Terry Rice MD : 1980 BED: 1 DIS: 09/05/2023 SPEC #: [id number] RECD: 09/01/23 13:19 STATUS: [place]OL[place] REZaida #: [id number] DEREK: 09/01/23 00:[address]: Jordi Perkins DEPT: SURGICAL PATHOLOGY RECD BY: Pilo Joe ENTERED: 09/01/23 13:19 SP TYPE: Bone OTHR DR: Dr. Jordi Perkins, DPM Dr. Dom Villagomez, DO Dr. Angélica Escalante MD Tissues: Bone of foot, NOS Procedures: Decalcification bone/plaque Surgery Specimen Level IV Comments: @ Ordering doctor for DEC edited from to @ by MYRNA at 09/01/23 1516 @ Ordering doctor for SUIII edited from to @ by MYRNA at 09/01/23 1516 @ Submitting doctor edited from to @ by MYRNA at 09/01/23 1516 HEADER OPERATION: Incision, drainage, abscess ankle PRE-OP DIAGNOSIS: Cellulitis of left lower limb, abscess of bursa left ankle and foot TISSUE SUBMITTED: Bone - left foot MICROSCOPIC DIAGNOSIS Bone left foot, excision: Pieces of bone with acute osteomyelitis and reactive changes. Detached fragments of soft tissue with acute and chronic inflammation, abscess formation and granulation tissue reaction. Irish 09/05/2023 MICROSCOPIC DESCRIPTION Slides are reviewed. GROSS DESCRIPTION Received in fixative is one container labeled with the patient's name and designated bone left foot. The specimen consists of two pieces of bone measuring in aggregate 1.0 x 0.5 x 0.2 cm. The specimen is totally submitted in one cassette after decalcification. / Irish 09/01/2023 TC:2 [facility]: [id number], [id number]
[2023-09-01 02:01] LABS: Absolute Lymphocyte Count 1.42 X10^3/uL (0.83-4.51); Basophil# 0.03 X10^3/uL; Basophil% 0.5 % (0-1); Eosinophil# 0.59 X10^3/uL; Eosinophils% 10.5 % (0-5); Hematocrit 33.5 % (40-54); Hemoglobin 10.2 g/dL (13.0-16.5); Lymphocyte # 1.42 X10^3/ul (0.83-4.51); Lymphocyte % 25.4 % (19-41); Mean Corp Hgb Conc 30.4 g/dL (32-36); Mean Corpuscular Hgb 24.1 pg (27.0-32.0); Mean Corpuscular Volume 79.2 fL (80-94); Mean Platelet Vol. 9.6 fl (6.2-12.0); Monocyte# 0.54 X10^3/uL; Monocyte% 9.6 % (0-10); NRBC Flagged by Analyzer 0 % (0-5); Neutrophil # 3.01 X10^3/uL (2.7-7.7); Neutrophil % 53.8 % (47-70); Platelet Count 244 K/mm3 (150-450); RBC Distribution Width CV 13.8 % (11.6-14.6); RBC Distribution Width SD 39.2 fl (35.1-43.9); Red Blood Count 4.23 M/mm3 (4.6-6.2); White Blood Count 5.6 K/mm3 (4.4-11.0)
[2023-09-01 02:14] LABS: Anion Gap 1 (5-15); BUN 20 mg/dL (7-18); BUN/Creat Ratio 23.6 RATIO (10-20); Calcium,Total 9.3 mg/dL (8.5-10.1); Chloride 109 mmol/L (98-107); Creatinine, Serum 0.85 mg/dL (0.70-1.30); EST Glomerular Filtration Rate 106 mL/min (>60); Est Glom Filt Rate - Afr Amer 128 mL/min (>60); Estimated Creatinine Clearance 148.81 ml/min; Glucose 104 mg/dL (74-106); Potassium 3.5 mmol/L (3.5-5.1); Sodium Level 140 mmol/L (136-145)
[2023-09-01 02:15] LABS: Vancomycin, Random Level 12.4 ug/mL (0.0-15.0)
--- NOTE | 2023-09-01 02:55 | PCM.RX.CS ---
Consult Antibiotic Management Pharmacy has been consulted to manage selected antibiotic: Vancomycin Type of Intervention Type of Consult: Follow-up Labs Labs: Sodium 140 mmol/L (136-145) 09/01/23 01:53 Potassium 3.5 mmol/L (3.5-5.1) 09/01/23 01:53 Chloride 109 mmol/L (98-107) H 09/01/23 01:53 Carbon Dioxide 30.0 mmol/L (21.0-32.0) 09/01/23 01:53 Anion Gap 1 (5-15) L 09/01/23 01:53 BUN 20 mg/dL (7-18) H 09/01/23 01:53 Creatinine 0.85 mg/dL (0.70-1.30) 09/01/23 01:53 Est GFR (MDRD) Af Amer 128 mL/min (>60) 09/01/23 01:53 Est GFR (MDRD) Non-Af 106 mL/min (>60) 09/01/23 01:53 BUN/Creatinine Ratio 23.6 RATIO (10-20) H 09/01/23 01:53 Glucose 104 mg/dL (74-106) 09/01/23 01:53 Vancomycin Trough 24.8 ug/mL (5.0-15.0) H 08/31/23 12:45 Random Vancomycin 12.4 ug/mL (0.0-15.0) 09/01/23 01:53 Microbiology Microbiology: Microbiology 08/30/23 11:58 Wound - Left Foot Gram Stain - Final Pharmacy Plan for Drug Dosing Pharmacy Plan for Drug Dosing: Pharmacy Service will continue to monitor and adjust dosing as required. RANDOM LEVEL 12.4 @ 21 HOURS. START 1GM Q8H AND FOLLOW UP TROUGH PRIOR TO 4TH DOSE Follow-Up Labs Follow-Up Labs: Trough: Vancomycin Date/Time Labs Ordered Labs to be done on [date and time ordered]: 09/02 @ [id number]
[2023-09-01] MEDS: Vancomycin IV 1,000 MG/200 ML BAG 200 MG IV (03:11)
[2023-09-01] MEDS: Lactated Ringers 1,000 ML 15 ML IV (06:39)
[2023-09-01 06:42] LABS: Bedside Glucose 109 mg/dL (74-106)
--- NOTE | 2023-09-01 07:34 | WOUNDNOTE ---
Pt currently down for surgery. will continue to follow as needed.
--- NOTE | 2023-09-01 08:46 | PCM.OPRPT ---
Problems Associated Problem List Diagnoses (1) Charcot foot due to diabetes mellitus: (2) Abscess of bursa, left ankle and foot: (3) Cellulitis of left lower limb: (4) Non-pressure chronic ulcer of left 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: (5) Osteomyelitis of ankle, left, acute: Report of Operation Date of Procedure: 09/01/23 Pre-Operative Diagnosis: 1) diabetic neuropathy with Charcot foot left lower extremity status post reconstruction 2) left foot and ankle abscess (lateral ankle) 3) full-thickness wounds x 3, 2 to the medial left ankle, 1 to the lateral left ankle 4) osteomyelitis left ankle possible infected hardware Post-Operative Diagnosis: Same Surgery/Procedure Performed:: 1) Incision and drainage abscess left lower extremity down to level bone 2) Delayed primary closure left lower extremity wound 3) Wound site debridement with wound bed red preparation for graft application left lower extremity medial ankle wounds x 2 4) Application of graft or skin substitute to left lower extremity medial ankle wounds Description of Surgical Findings:: Patient underwent Charcot reconstruction via midfoot osteotomy with percutaneous pinning and tibial osteotomy with TTC fusion 6 weeks prior. Patient was undergoing a good healing course until over the past week a total contact cast was applied to left lower extremity upon the most recent dressing change there is noted to be a new onset wound with purulent drainage to the lateral left ankle. 15 cc of purulence was drained in the wound care center. Patient was admitted for IV antibiotics due to risk of surgical failure as well as concern for the development of a life and limb threatening infection. Patient was sent to the emergency room and admitted to hospital service started on vancomycin and cefepime. Cultures from the wound care center demonstrated growth of Enterococcus faecalis. Plan for incision and drainage of any residual purulence was noted in an attempt to salvage left lower extremity. Surgeon: Jordi Perkins cement tester assistant: None (alida ibanez) Type of Anesthesia: MAC Special Medications: None Specimen's removed: Pre and post lavage swab cultures Calcaneal bone for pathology and culture Drains: None Estimated Blood Loss (mL): 10 cc Description of Procedure: Patient brought back the operating placed comfortably in supine position on the operating room table. Patient induced under MAC anesthesia. Well-padded thigh tourniquet applied to left lower extremity. Left lower extremity was positioned back on a external hip rotation with hip bump and blankets. Left lower extremity scrubbed prepped draped using typical aseptic fashion. Procedure #1: Incision and drainage abscess down to bone, left lower extremity Once cleared by anesthesia due to patient's neuropathy no local anesthesia was used tourniquet was not used to ensure adequate abscess decompression. Full-thickness wound noted to the superior margin of the lateral ankle incision with purulent drainage. This wound was extended using a 15 blade distally along the previous incisional site approximately 5 cm. This was taken full-thickness through epidermis dermis into subcutaneous tissue blunt dissection was taken down to level of bone. There is noted be approximately cc of purulent drainage at this time. Prelavage swab cultures taken. Bone rongeurs were used to take calcaneal bone, specimen sent to pathology and microbiology. There is noted to be the lateral screw adjacent to the incisional site which communicated with the abscess. Low-pressure pulse lavage was used to flush the site with copious amounts of normal sterile saline. Post lavage swab cultures taken. Procedure #2: Delayed primary closure left lower extremity wound: Using red Vesseloops and a stapler vessel loop closure was performed in an accordion fashion traversing the wound until there was noted to be gentle apposition of the skin edges. This closure was performed to minimize tension across the incisional site and allow for continued wound access for packing and purulent drainage. This was packed subsequently with Betadine soaked gauze. Procedure #3/4: Left lower extremity if foot wound debridement to the medial ankle with wound bed preparation and application of skin substitute graft in this case BioSkin Predebridement there is noted to be a 2.2 x 0.6 x 0.3 cm wound to the medial ankle inferior to the incisional site. This wound was debrided excisionally down to including level of subcutaneous tissue of all nonviable tissue with a curette. Postdebridement measurement was noted to be 2.3 x 0.7 x 0.4 cm. Wound demonstrated clean granular base with no acute signs infection does not appear to track to the lateral ankle where the purulent abscess was noted. Second wound debridement was performed to the medial ankle just superior to this wound. Predebridement this wound was 2.5 x 1.5 x 1.5 cm. Wounds x 2 to left medial ankle were flushed with copious amounts of normal sterile saline. Wound was debrided excisionally down to including level subcutaneous tissue of all nonviable tissue until healthy bleeding granular tissue noted in wound bed site was ready for graft application. Postdebridement wound was 2.6 x 1.6 x 1.6 cm. A 2 x 4 cm zweitgeist BioSkin graft was applied to the wound sites to the medial ankle x 2.*(1 graft used). Entire graft used. No waste. All incisional sites and wound sites dressed with overlying Adaptic, 4 x 4's, Kerlix, 2 layers of cast padding, two 4 inch Sal, 2 layers of cast padding, double 6 inch Sal. No tourniquet used Patient was transported to PACU vital signs stable vascular status intact all digits for further monitoring prior to transfer back to floor. Patient tolerated procedure and anesthesia well apparent satisfactory condition. At this time I ordered additional chest x-ray, EKG, prealbumin, hemoglobin A1c for workup for HBO therapy. I recommend PICC line placement due to risk of limb loss and extension of abscess down to bone and hardware. Grafts/Implants Used: BioSkin 2 x 4 cm graft Complications No complication Admit VTE Documentation VTE Present on Admission: Yes VTE Pharm Prophylaxis ordered?: Yes
--- NOTE | 2023-09-01 08:59 | CON.PCM_ITS ---
Assessment & Plan Assessment/Plan (1) Osteomyelitis of ankle, left, acute: PLAN: Exam performed I&D today for abscess with delayed primary closure Recommend ID consultation for IV antibiotic management and PICC line placement Patient will require home health care dressing changes 3 times a week for left lower extremity wound packing Patient continue nonweightbearing left lower extremity Will plan for HBO therapy, checks x-ray, EKG, prealbumin, hemoglobin A1c ordered for additional workup Will follow closely (2) Charcot foot due to diabetes mellitus: (3) Abscess of bursa, left ankle and foot: (4) Cellulitis of left lower limb: (5) Non-pressure chronic ulcer of left 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: (6) Type 2 diabetes mellitus with diabetic polyneuropathy: QUALIFIERS: Diabetes mellitus care home insulin use: without long term care pharmacist use Qualified Code(s): E11.42 - Type 2 diabetes mellitus with diabetic polyneuropathy HPI Consult Data Date of Consult: 09/01/23 HPI Narrative HPI Narrative: SNEHA WEI, is a 43 M who presents left lower extremity abscess. For incision and drainage abscess today. [facility] Medical History (Updated 09/01/23 @ 08:[address] Jordi Perkins, DPM) Dietary restriction Gas gangrene of foot History of edema Hypertension Osteomyelitis of ankle or foot, left, acute Type 2 diabetes mellitus with diabetic polyneuropathy Wears glasses Home Medications metformin 1,000 mg tablet 1,000 mg PO BID diabetes 11/14/21 [History Last Taken 08/30/23] calcium citrate 200 mg (950 mg) tablet 200 mg PO DAILY SUPPLEMENT 11/24/21 [History Last Taken 08/30/23] multivitamin 1 tab PO DAILY SUPPLEMENT 11/24/21 [History Last Taken 08/30/23] losartan 25 mg tablet 25 mg PO DAILY BLOOD PRESSURE 09/15/22 [History Last Taken 08/30/23] semaglutide 14 mg tablet (Rybelsus) 14 mg PO DAILY DIABETES 07/06/23 [History Last Taken 08/30/23] ascorbic acid (vitamin C) 1,000 mg tablet,extended release (C Complex) 1,000 mg PO DAILY SUPPLEMENT 08/30/23 [History Last Taken 08/30/23] omega 8-jje-lzv-fish oil 300 mg-1,000 mg capsule (Fish Oil) 2 cap PO DAILY SUPPLEMENT 08/30/23 [History Last Taken 08/30/23] pravastatin 80 mg tablet 80 mg PO QHS CHOLESTEROL 08/30/23 [History Last Taken 08/29/23] Allergy/AdvReac Type Severity Reaction Status Date / Time Penicillins [PCN] Allergy Rash Verified 08/30/23 10:45 Surgical History Hx of eye surgery Hx of foot surgery Hx of foot surgery Social History Smoking Status: Never smoker Physical Exam Narrative Purulent draining abscess noted to left lower extremity lateral ankle at site of TTC fusion for Charcot reconstruction. Lab / Micro Data 09/01/23 01:53 09/01/23 01:53 Labs: Laboratory Results - last 24 hr 08/31/23 10:50: POC Glucose 128 H 08/31/23 12:45: Vancomycin Trough 24.8 H 08/31/23 16:48: POC Glucose 127 H 08/31/23 23:08: POC Glucose 106 09/01/23 01:53: WBC 5.6, RBC 4.23 L, Hgb 10.2 L, Hct 33.5 L, MCV 79.2 L, MCH 24.1 L, MCHC 30.4 L, RDW Std Deviation 39.2, RDW Coeff of Venita 13.8, Plt Count 244, MPV 9.6, Immature Gran % (Auto) 0.200, Neut % (Auto) 53.8, Lymph % (Auto) 2 5.4, Labette % (Auto) 9.6, Eos % (Auto) 10.5 H, Baso % (Auto) 0.5, Absolute Neuts (auto) 3.0, Absolute Lymphs (auto) 1.42, Nucleated RBC % 0, Sodium 140, Potassium 3.5, Chloride 109 H, Carbon Dioxide 30.0, Anion Gap 1 L, BUN 20 H, Creatinine 0.85, Estim Creat Clear Calc 148.81, Est GFR (MDRD) Af Amer 128, Est GFR (MDRD) Non-Af 106, BUN/Creatinine Ratio 23.6 H, Glucose 104, Hemoglobin A1c 6.0 H, Calcium 9.3, Random Vancomycin 12.4 09/01/23 06:19: POC Glucose 109 H Micro: Microbiology 08/30/23 11:58 Wound - Left Foot Gram Stain - Final 08/30/23 11:58 Wound - Left Foot Wound Culture - Final No growth aerobically.
[2023-09-01] MEDS: Calcium Carbonate 500 MG Tablet PO (09:16)
[2023-09-01] MEDS: Losartan Potassium 25 MG Tablet PO (09:16)
[2023-09-01] MEDS: Multivitamins,Therapeutic Tablet 1 TABLET PO (09:16)
[2023-09-01] MEDS: Cefepime HCl 1 GM in 0.9% Normal Saline (50mL MB+) 50 ML IV ×2 (09:16→22:45)
[2023-09-01] MEDS: Enoxaparin 40 MG/0.4 ML Syringe SC (09:16)
--- NOTE | 2023-09-01 10:15 | RAD_ITS ---
STUDY: X-RAY CHEST REASON FOR EXAM: Male, 43 years old. HBO TECHNIQUE: Frontal and lateral views of the chest. COMPARISON: 11/14/2021. FINDINGS: Moderate lung volumes. Increased AP dimension of the chest. Subsegmental atelectasis suggested in the left lung base. No definite inflammatory infiltrates. No effusions. There is mild cardiac enlargement. Normal mediastinum and michelle. Normal visualized pulmonary arteries. Normal visualized aortic arch and descending thoracic aorta. Normal visualized thoracic spine. Normal visualized ribs, clavicles, and shoulders. There is no demonstrated abnormality of the visualized soft tissue structures of the upper abdomen. RAD/Chest PA and Lateral IMPRESSION: Incomplete expansion of the lungs. Mild atelectasis suggested in the left lung base. Otherwise lungs clear. Electronically Signed: Pako Smith MD at 17:35 EST ,
[2023-09-01 10:28] LABS: Prealbumin 19.9 mg/dL (20.0-40.0)
[2023-09-01] MEDS: Glucerna Shake 120 ML LIQUID PO ×2 (11:03→17:01)
[2023-09-01] MEDS: Vancomycin IV 1,000 MG/200 ML BAG 100 MG IV ×2 (11:03→18:14)
[2023-09-01] MEDS: 0.9% Saline Lock 10 ML Syringe IV (11:03)
[2023-09-01 11:26] LABS: Bedside Glucose 101 mg/dL (74-106)
--- NOTE | 2023-09-01 12:18 | NURSING ---
This RN ran vancomycin dose ordered for 200ml/hour at 100ml/hour d/t previous reaction of a rash/itchiness in ED. No reaction noted during infusion
--- NOTE | 2023-09-01 13:14 | PN_ITS ---
Subjective Subjective Patient seen and examined. He had no active complaints. He had I&D of the left lower extremity,wth delayed primary closure of left lower extremity wound and wound debridement. He was seen after surgery. He had no active complaints. Review of systems is otherwise negative. Objective Data Objective Data Vital Signs: Vital Signs Temp Pulse Resp BP Pulse Ox O2 Del Method 98 F 80 16 117/72 94 Room Air 09/01/23 09:15 09/01/23 09:15 09/01/23 09:15 09/01/23 09:15 09/01/23 09:15 09/01/23 09:20 Oxygen Delivery Method Room Air Weight: 258 lb 6.108 oz Body Mass Index (BMI) 36.0 Intake & Output: Intake and Output for Last 24 Hours 08/30/23 08/31/23 09/01/23 23:59 23:59 23:59 Intake Total 1040 / 1040 2210.00 / 2210.00 489 / 489 Balance 1040 / 1040 2210.00 / 2210.00 489 / 489 Lab / Micro Data 09/01/23 01:53 09/01/23 01:53 Labs: Laboratory Results - last 24 hr 08/31/23 12:45: Vancomycin Trough 24.8 H 08/31/23 16:48: POC Glucose 127 H 08/31/23 23:08: POC Glucose 106 09/01/23 01:53: WBC 5.6, RBC 4.23 L, Hgb 10.2 L, Hct 33.5 L, MCV 79.2 L, MCH 24.1 L, MCHC 30.4 L, RDW Std Deviation 39.2, RDW Coeff of Venita 13.8, Plt Count 244, MPV 9.6, Immature Gran % (Auto) 0.200, Neut % (Auto) 53.8, Lymph % (Auto) 25.4, Mcleod % (Auto) 9.6, Eos % (Auto) 10.5 H, Baso % (Auto) 0.5, Absolute Neuts (auto) 3.0, Absolute Lymphs (auto) 1.42, Nucleated RBC % 0, Sodium 140, Potassium 3.5, Chloride 109 H, Carbon Dioxide 30.0, Anion Gap 1 L, BUN 20 H, Creatinine 0.85, Estim Creat Clear Calc 148.81, Est GFR (MDRD) Af Amer 128, Est GFR (MDRD) Non-Af 106, BUN/Creatinine Ratio 23.6 H, Glucose 104, Hemoglobin A1c 6.0 H, Calcium 9.3, Prealbumin 19.9 L, Random Vancomycin 12.4 09/01/23 06:19: POC Glucose 109 H 09/01/23 11:02: POC Glucose 101 Micro: Microbiology 08/30/23 11:58 Wound - Left Foot Gram Stain - Final 08/30/23 11:58 Wound - Left Foot Wound Culture - Final No growth aerobically. Physical Exam Const alert, oriented x3, no apparent distress and well nourished General Appearance: cooperative and well developed HEENT normocephalic, head/scalp atraumatic, moist oral mucous membranes, oropharynx normal and gingiva normal Eyes PERRL and EOMs intact bilaterally Neck no lymphadenopathy, supple, no JVD and thyroid normal Lymph Lymphatic: no lymphadenopathy noted and no lymphedema noted Resp normal respiratory effort, normal air movement and clear to auscultation bilaterally Cardio regular rate, regular rhythm, S1 normal heart sound, S2 normal heart sound and no murmurs Palpation: normal PMI GI normal to inspection, nondistended, normoactive bowel sounds, soft to palpation, non-tender and non-distended Extremity Extremity Narrative: left foot wrapped in bandage. Neuro CN's II-XII intact bilaterally, no focal motor deficits, no sensory deficits noted and deep tendon reflexes 2+ bilaterally Motor Exam: strength 5/5 throughout and general weakness Psych thought process normal, cooperative and affect normal Appearance: appropriate Assessment & Plan Assessment/Plan (1) Cellulitis of left lower limb: (2) Abscess of bursa, left ankle and foot: PLAN: Plan #Diabetic foot abscess and cellulitis of the LLE * Podiatry on board * he had I&D of LLE abscess and delayed primary closeure of LLE wound with application of graft or skin substitute to LLE medial ankle wounds. * Blood wound and blood cultures. Consult podiatry. * on IV vancomycin and cefepime * wound and blood cultures pending * #Hypertension: On losartan. IV hydralazine prn #Type 2 diabetes mellitus: On metformin and Rybelsus. ISS. Accuchecks ACHS #Hyperlipidemia: On statin DVT prophylaxis: Lovenox Charges/Coding Visit Charges Inpatient E&M: 69666 Subs Hosp L2
--- NOTE | 2023-09-01 15:40 | CASEMGMT ---
Addendum entered by Jamarcus Lay 09/02/23 10:49: LE: Noted pt will need home IV ATBs per the Podiatry note. Original Note: Pt states that he was happy with [facility] and [facility] in the past and would like to use these agencies after DC. Pt denied seeing a list of local in-network agencies. TC to [facility] to start the referral process, voice message left with pt info.
[2023-09-01 16:52] LABS: Bedside Glucose 98 mg/dL (74-106)
[2023-09-01] MEDS: metFORMIN HCl 1,000 MG Tablet 1000 MG PO (17:01)
[2023-09-01] MEDS: Pravastatin 80 MG Tablet PO (22:39)
[2023-09-01 23:07] LABS: Bedside Glucose 98 mg/dL (74-106)
[2023-09-02 02:57] LABS: Absolute Lymphocyte Count 1.37 X10^3/uL (0.83-4.51); Absolute Neutrophil Count 3.3 X10^3/uL (2.0-7.7); Basophil# 0.01 X10^3/uL; Basophil% 0.2 % (0-1); Eosinophil# 0.52 X10^3/uL; Eosinophils% 9.1 % (0-5); Hematocrit 31.3 % (40-54); Hemoglobin 9.6 g/dL (13.0-16.5); Lymphocyte # 1.37 X10^3/ul (0.83-4.51); Lymphocyte % 23.9 % (19-41); Mean Corp Hgb Conc 30.7 g/dL (32-36); Mean Corpuscular Hgb 23.9 pg (27.0-32.0); Mean Corpuscular Volume 77.9 fL (80-94); Mean Platelet Vol. 9.4 fl (6.2-12.0); Monocyte# 0.54 X10^3/uL; Monocyte% 9.4 % (0-10); NRBC Flagged by Analyzer 0 % (0-5); Neutrophil # 3.26 X10^3/uL (2.7-7.7); Neutrophil % 56.9 % (47-70); Platelet Count 237 K/mm3 (150-450); RBC Distribution Width CV 13.6 % (11.6-14.6); RBC Distribution Width SD 38.6 fl (35.1-43.9); Red Blood Count 4.02 M/mm3 (4.6-6.2); White Blood Count 5.7 K/mm3 (4.4-11.0)
[2023-09-02 03:12] LABS: Anion Gap 5 (5-15); BUN 21 mg/dL (7-18); BUN/Creat Ratio 26.5 RATIO (10-20); Calcium,Total 9.1 mg/dL (8.5-10.1); Chloride 107 mmol/L (98-107); Creatinine, Serum 0.79 mg/dL (0.70-1.30); EST Glomerular Filtration Rate 114 mL/min (>60); Est Glom Filt Rate - Afr Amer 138 mL/min (>60); Estimated Creatinine Clearance 160.23 ml/min; Glucose 102 mg/dL (74-106); Potassium 3.6 mmol/L (3.5-5.1); Sodium Level 141 mmol/L (136-145)
--- NOTE | 2023-09-02 03:23 | PCM.RX.CS ---
Consult Antibiotic Management Pharmacy has been consulted to manage selected antibiotic: Vancomycin Type of Intervention Type of Consult: Follow-up Labs Labs: Sodium 141 mmol/L (136-145) 09/02/23 02:40 Potassium 3.6 mmol/L (3.5-5.1) 09/02/23 02:40 Chloride 107 mmol/L (98-107) 09/02/23 02:40 Carbon Dioxide 29.0 mmol/L (21.0-32.0) 09/02/23 02:40 Anion Gap 5 (5-15) 09/02/23 02:40 BUN 21 mg/dL (7-18) H 09/02/23 02:40 Creatinine 0.79 mg/dL (0.70-1.30) 09/02/23 02:40 Est GFR (MDRD) Af Amer 138 mL/min (>60) 09/02/23 02:40 Est GFR (MDRD) Non-Af 114 mL/min (>60) 09/02/23 02:40 BUN/Creatinine Ratio 26.5 RATIO (10-20) H 09/02/23 02:40 Glucose 102 mg/dL (74-106) 09/02/23 02:40 Vancomycin Trough 19.0 ug/mL (5.0-15.0) H 09/02/23 02:40 Random Vancomycin 12.4 ug/mL (0.0-15.0) 09/01/23 01:53 Microbiology Microbiology: Microbiology 09/01/23 08:20 Bone - Left Foot Gram Stain - Final 09/01/23 08:20 Abs - Aerobic & Anaerobic Swabs Gram Stain - Final 09/01/23 08:20 Abs - Aerobic & Anaerobic Swabs Gram Stain - Final 08/30/23 11:58 Wound - Left Foot Gram Stain - Final 08/30/23 11:58 Wound - Left Foot Wound Culture - Final No growth aerobically. Pharmacy Plan for Drug Dosing Pharmacy Plan for Drug Dosing: Pharmacy Service will continue to monitor and adjust dosing as required. TROUGH 19.0 @ 8.5 HOURS. NO CHANGES, FOLLOW UP TROUGH IN 1 DAY Follow-Up Labs Follow-Up Labs: Trough: Vancomycin Date/Time Labs Ordered Labs to be done on [date and time ordered]: 09/03 @ 2246
[2023-09-02] MEDS: Vancomycin IV 1,000 MG/200 ML BAG 100 MG IV (03:34)
[2023-09-02 03:56] VITALS: BP 108/63; PULSE 82; RESP 16; TEMP 36.6; O2SAT 95
[2023-09-02 06:29] LABS: Bedside Glucose 109 mg/dL (74-106)
[2023-09-02 08:33] VITALS: BP 134/78; PULSE 80; RESP 18; TEMP 36.6; O2SAT 100
[2023-09-02] MEDS: metFORMIN HCl 1,000 MG Tablet 1000 MG PO ×2 (08:39→16:48)
[2023-09-02] MEDS: Losartan Potassium 25 MG Tablet PO (08:39)
[2023-09-02] MEDS: Multivitamins,Therapeutic Tablet 1 TABLET PO (08:39)
[2023-09-02] MEDS: Calcium Carbonate 500 MG Tablet PO (08:39)
[2023-09-02] MEDS: Enoxaparin 40 MG/0.4 ML Syringe SC (08:39)
[2023-09-02] MEDS: Glucerna Shake 120 ML LIQUID PO ×3 (08:40→16:48)
--- NOTE | 2023-09-02 09:08 | PCM.PROGNOTE ---
Subjective Subjective 1 day postop denies constitutional's pain at current. No complaints overnight. Some strikethrough to dressing. Objective Data Objective Data Vital Signs: Vital Signs Temp Pulse Resp BP Pulse Ox O2 Del Method 97.8 F 80 18 134/78 H 100 Room Air 09/02/23 08:33 09/02/23 08:33 09/02/23 08:33 09/02/23 08:33 09/02/23 08:33 09/02/23 08:33 Oxygen Delivery Method Room Air Weight: 117.2 kg Body Mass Index (BMI) 36.0 Intake & Output: Intake and Output for Last 24 Hours 08/31/23 09/01/23 09/02/23 23:59 23:59 23:59 Intake Total 2210.00 / 2210.00 739 / 739 200 / 200 Balance 2210.00 / 2210.00 739 / 739 200 / 200 Lab / Micro Data 09/02/23 02:40 09/02/23 02:40 Labs: Laboratory Results - last 24 hr 09/01/23 01:53: Prealbumin 19.9 L 09/01/23 11:02: POC Glucose 101 09/01/23 16:33: POC Glucose 98 09/01/23 22:38: POC Glucose 98 09/02/23 02:40: WBC 5.7, RBC 4.02 L, Hgb 9.6 L, Hct 31.3 L, MCV 77.9 L, MCH 23.9 L, MCHC 30.7 L, RDW Std Deviation 38.6, RDW Coeff of Venita 13.6, Plt Count 237, MPV 9.4, Immature Gran % (Auto) 0.500, Neut % (Auto) 56.9, Lymph % (Auto) 23.9, Schleicher % (Auto) 9.4, Eos % (Auto) 9.1 H, Baso % (Auto) 0.2, Absolute Neuts (auto) 3.3, Absolute Lymphs (auto) 1.37, Nucleated RBC % 0, Sodium 141, Potassium 3.6, Chloride 107, Carbon Dioxide 29.0, Anion Gap 5, BUN 21 H, Creatinine 0.79, Estim Creat Clear Calc 160.23, Est GFR (MDRD) Af Amer 138, Est GFR (MDRD) Non-Af 114, BUN/Creatinine Ratio 26.5 H, Glucose 102, Calcium 9.1, Vancomycin Trough 19.0 H 09/02/23 06:11: POC Glucose 109 H Micro: Microbiology 09/01/23 08:20 Bone - Left Foot Gram Stain - Final 09/01/23 08:20 Abs - Aerobic & Anaerobic Swabs Gram Stain - Final 09/01/23 08:20 Abs - Aerobic & Anaerobic Swabs Gram Stain - Final 08/30/23 11:58 Wound - Left Foot Gram Stain - Final 08/30/23 11:58 Wound - Left Foot Wound Culture - Final No growth aerobically. Radiography Diagnostic Testing: Radiology Impression Chest X-Ray 09/01/23 10:15 IMPRESSION: Incomplete expansion of the lungs. Mild atelectasis suggested in the left lung base. Otherwise lungs clear. Electronically Signed: Pako Smith MD at 17:35 EST , Physical Exam Narrative Left lower extremity wound was examined today no residual purulence to the lateral ankle. Medial ankle wounds appear healthy granular as well. No active bleeding at current. No sign DVT. Assessment & Plan Assessment/Plan (1) Osteomyelitis of ankle, left, acute: PLAN: Exam performed Wound appears healthy today. Redressed Betadine soaked gauze 4 x 4's Kerlix Sal bandage Patient on Vanco cefepime. Initial cultures positive for vancomycin sensitive Enterococcus faecalis. Recommend ID consult PICC line placement for limb salvage. Will continue to follow closely Patient nonweightbearing to left lower extremity Continue daily dressing changes Will likely plan for home health care dressing changes upon discharge (2) Charcot foot due to diabetes mellitus: (3) Abscess of bursa, left ankle and foot: (4) Cellulitis of left lower limb: (5) Non-pressure chronic ulcer of left 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:
--- NOTE | 2023-09-02 09:19 | WOUNDNOTE ---
wound photo: left foot
--- NOTE | 2023-09-02 09:20 | WOUNDNOTE ---
wound photo: left foot
--- NOTE | 2023-09-02 10:53 | CASEMGMT ---
Addendum entered by Jamarcus Lay 09/02/23 12:37: Dr. Vee states the pt will need IV ATBs but will not know which one(s) until Tuesday d/t pending cultures. We can anticipate that the SOC will be Tuesday. [facility] and [facility] are aware. Original Note: [facility] calls and state they are going to run the pt insurance to see if they can accept the pt.
[2023-09-02] MEDS: Cefepime HCl 1 GM in 0.9% Normal Saline (50mL MB+) 50 ML IV ×2 (10:54→23:04)
--- NOTE | 2023-09-02 11:26 | CASEMGMT ---
Discharge Planning Referral sent via [facility] to [facility]. Bethanie Short, Discharge Planning Asst.
[2023-09-02] MEDS: Vancomycin IV 1,000 MG/200 ML BAG 200 MG IV ×2 (11:41→18:37)
[2023-09-02 12:05] LABS: Bedside Glucose 161 mg/dL (74-106)
--- NOTE | 2023-09-02 12:25 | PCM.CONS.GEN ---
Assessment & Plan Assessment/Plan (1) Osteomyelitis of ankle, left, acute: PLAN: L foot osteo and abscess complicated by hardware - taken to OR 09/01/[address] Perkins for I&D. Cxs so far showing enterococcus, GNR, PsA-like. Cont vanc/cefepime, will add flagyl. Will order picc. Will follow, thank you (2) Charcot foot due to diabetes mellitus: HPI Consult Data Date of Consult: 09/02/23 HPI Narrative Reason for Consultation: osteo HPI Narrative: SNEHA WEI, is a 43 M with DM neuropathy, had surgery early July for Charcot foot reconstruction, hardware in place. Did well post op until cast was changed a week ago, then found on followup 08/29 to have new wound and purulence from L lateral foot. No fever or chills, no new n/v/d, no recent abx. Taken to OR 09/01/[address] Perkins for I&D. Full ROS performed and neg except as noted above. [facility] Medical History Dietary restriction Gas gangrene of foot History of edema Hypertension Osteomyelitis of ankle or foot, left, acute Type 2 diabetes mellitus with diabetic polyneuropathy Wears glasses Home Medications metformin 1,000 mg tablet 1,000 mg PO BID diabetes 11/14/21 [History Last Taken 08/30/23] calcium citrate 200 mg (950 mg) tablet 200 mg PO DAILY SUPPLEMENT 11/24/21 [History Last Taken 08/30/23] multivitamin 1 tab PO DAILY SUPPLEMENT 11/24/21 [History Last Taken 08/30/23] losartan 25 mg tablet 25 mg PO DAILY BLOOD PRESSURE 09/15/22 [History Last Taken 08/30/23] semaglutide 14 mg tablet (Rybelsus) 14 mg PO DAILY DIABETES 07/06/23 [History Last Taken 08/30/23] ascorbic acid (vitamin C) 1,000 mg tablet,extended release (C Complex) 1,000 mg PO DAILY SUPPLEMENT 08/30/23 [History Last Taken 08/30/23] omega [id number]-fish oil 300 mg-1,000 mg capsule (Fish Oil) 2 cap PO DAILY SUPPLEMENT 08/30/23 [History Last Taken 08/30/23] pravastatin 80 mg tablet 80 mg PO QHS CHOLESTEROL 08/30/23 [History Last Taken 08/29/23] Allergy/AdvReac Type Severity Reaction Status Date / Time Penicillins [PCN] Allergy Rash Verified 08/30/23 10:45 Surgical History Hx of eye surgery Hx of foot surgery Hx of foot surgery Social History Smoking Status: Never smoker Physical Exam Const alert, oriented x3 and no apparent distress General Appearance: cooperative HEENT normocephalic and head/scalp atraumatic Eyes PERRL and EOMs intact bilaterally Neck supple and No nodes Resp normal air movement and clear to auscultation bilaterally Cardio regular rate and regular rhythm GI soft to palpation, non-tender and non-distended Skin Skin Narrative: LLE wrapped Neuro CN's II-XII intact bilaterally Lab / Micro Data Attestation: I reviewed the patient's lab results. 09/02/23 02:40 09/02/23 02:40 Labs: Laboratory Results - last 24 hr 09/01/23 16:33: POC Glucose 98 09/01/23 22:38: POC Glucose 98 09/02/23 02:40: WBC 5.7, RBC 4.02 L, Hgb 9.6 L, Hct 31.3 L, MCV 77.9 L, MCH 23.9 L, MCHC 30.7 L, RDW Std Deviation 38.6, RDW Coeff of Venita 13.6, Plt Count 237, MPV 9.4, Immature Gran % (Auto) 0.500, Neut % (Auto) 56.9, Lymph % (Auto) 23.9, [place] % (Auto) 9.4, Eos % (Auto) 9.1 H, Baso % (Auto) 0.2, Absolute Neuts (auto) 3.3, Absolute Lymphs (auto) 1.37, Nucleated RBC % 0, Sodium 141, Potassium 3.6, Chloride 107, Carbon Dioxide 29.0, Anion Gap 5, BUN 21 H, Creatinine 0.79, Estim Creat Clear Calc 160.23, Est GFR (MDRD) Af Amer 138, Est GFR (MDRD) Non-Af 114, BUN/Creatinine Ratio 26.5 H, Glucose 102, Calcium 9.1, Vancomycin Trough 19.0 H 09/02/23 06:11: POC Glucose 109 H 09/02/23 11:38: POC Glucose 161 H Micro: Microbiology 09/01/23 08:20 Bone - Left Foot Gram Stain - Final 09/01/23 08:20 Bone - Left Foot Wound Culture - Preliminary GPC Poss Enterococcus sp Gram negative vance GNR Poss Pseudomonas sp 09/01/23 08:20 Bone - Left Foot Anaerobic Culture - Preliminary Checking for anaerobes, further studies to follow. 09/01/23 08:20 Abs - Aerobic & Anaerobic Swabs Gram Stain - Final 09/01/23 08:20 Abs - Aerobic & Anaerobic Swabs Wound Culture - Preliminary GPC Poss Enterococcus sp 09/01/23 08:20 Abs - Aerobic & Anaerobic Swabs Anaerobic Culture - Preliminary Checking for anaerobes, further studies to follow. 09/01/23 08:20 Abs - Aerobic & Anaerobic Swabs Gram Stain - Final 09/01/23 08:20 Abs - Aerobic & Anaerobic Swabs Wound Culture - Preliminary GPC Poss Enterococcus sp 09/01/23 08:20 Abs - Aerobic & Anaerobic Swabs Anaerobic Culture - Preliminary Checking for anaerobes, further studies to follow. 08/30/23 11:58 Wound - Left Foot Gram Stain - Final 08/30/23 11:58 Wound - Left Foot Wound Culture - Final No growth aerobically. Imagaing Radiology Impression Chest X-Ray 09/01/23 10:15 IMPRESSION: Incomplete expansion of the lungs. Mild atelectasis suggested in the left lung base. Otherwise lungs clear. Electronically Signed: Pako Smith MD at 17:35 EST ,
--- NOTE | 2023-09-02 12:31 | PN_ITS ---
Subjective Subjective Patient seen and examined. He feels well and had no complaints. He had an uneventful night. Review of symptoms otherwise negative. Pain is well- controlled. Today's postop day 1. He has remained hemodynamically stable. Objective Data Objective Data Vital Signs: Vital Signs Temp Pulse Resp BP Pulse Ox O2 Del Method 97.8 F 80 18 134/78 H 100 Room Air 09/02/23 08:33 09/02/23 08:33 09/02/23 08:33 09/02/23 08:33 09/02/23 08:33 09/02/23 08:33 Oxygen Delivery Method Room Air Weight: 258 lb 6.108 oz Body Mass Index (BMI) 36.0 Intake & Output: Intake and Output for Last 24 Hours 08/31/23 09/01/23 09/02/23 23:59 23:59 23:59 Intake Total 2210.00 / 2210.00 739 / 739 250 / 250 Balance 2210.00 / 2210.00 739 / 739 250 / 250 Lab / Micro Data 09/02/23 02:40 09/02/23 02:40 Labs: Laboratory Results - last 24 hr 09/01/23 16:33: POC Glucose 98 09/01/23 22:38: POC Glucose 98 09/02/23 02:40: WBC 5.7, RBC 4.02 L, Hgb 9.6 L, Hct 31.3 L, MCV 77.9 L, MCH 23.9 L, MCHC 30.7 L, RDW Std Deviation 38.6, RDW Coeff of Venita 13.6, Plt Count 237, MPV 9.4, Immature Gran % (Auto) 0.500, Neut % (Auto) 56.9, Lymph % (Auto) 23.9, [place] % (Auto) 9.4, Eos % (Auto) 9.1 H, Baso % (Auto) 0.2, Absolute Neuts (auto) 3.3, Absolute Lymphs (auto) 1.37, Nucleated RBC % 0, Sodium 141, Potassium 3.6, Chloride 107, Carbon Dioxide 29.0, Anion Gap 5, BUN 21 H, Creatinine 0.79, Estim Creat Clear Calc 160.23, Est GFR (MDRD) Af Amer 138, Est GFR (MDRD) Non-Af 114, BUN/Creatinine Ratio 26.5 H, Glucose 102, Calcium 9.1, Vancomycin Trough 19.0 H 09/02/23 06:11: POC Glucose 109 H 09/02/23 11:38: POC Glucose 161 H Micro: Microbiology 09/01/23 08:20 Bone - Left Foot Gram Stain - Final 09/01/23 08:20 Bone - Left Foot Wound Culture - Preliminary GPC Poss Enterococcus sp Gram negative vance GNR Poss Pseudomonas sp 09/01/23 08:20 Bone - Left Foot Anaerobic Culture - Preliminary Checking for anaerobes, further studies to follow. 09/01/23 08:20 Abs - Aerobic & Anaerobic Swabs Gram Stain - Final 09/01/23 08:20 Abs - Aerobic & Anaerobic Swabs Wound Culture - Preliminary GPC Poss Enterococcus sp 09/01/23 08:20 Abs - Aerobic & Anaerobic Swabs Anaerobic Culture - Preliminary Checking for anaerobes, further studies to follow. 09/01/23 08:20 Abs - Aerobic & Anaerobic Swabs Gram Stain - Final 09/01/23 08:20 Abs - Aerobic & Anaerobic Swabs Wound Culture - Preliminary GPC Poss Enterococcus sp 09/01/23 08:20 Abs - Aerobic & Anaerobic Swabs Anaerobic Culture - Preliminary Checking for anaerobes, further studies to follow. 08/30/23 11:58 Wound - Left Foot Gram Stain - Final 08/30/23 11:58 Wound - Left Foot Wound Culture - Final No growth aerobically. Radiography Diagnostic Testing: Radiology Impression Chest X-Ray 09/01/23 10:15 IMPRESSION: Incomplete expansion of the lungs. Mild atelectasis suggested in the left lung base. Otherwise lungs clear. Electronically Signed: Pako Simth MD at 17:35 EST , Physical Exam Const alert, oriented x3, no apparent distress and well nourished General Appearance: cooperative and well developed HEENT normocephalic, head/scalp atraumatic, moist oral mucous membranes, oropharynx normal and gingiva normal Eyes PERRL and EOMs intact bilaterally Neck no lymphadenopathy, supple, no JVD and thyroid normal Lymph Lymphatic: no lymphadenopathy noted and no lymphedema noted Resp normal respiratory effort, normal air movement and clear to auscultation bilaterally Cardio regular rate, regular rhythm, S1 normal heart sound, S2 normal heart sound and no murmurs Palpation: normal PMI GI normal to inspection, nondistended, normoactive bowel sounds, soft to palpation, non-tender and non-distended Extremity Extremity Narrative: left foot wrapped in bandage. Neuro CN's II-XII intact bilaterally, no focal motor deficits, no sensory deficits noted and deep tendon reflexes 2+ bilaterally Motor Exam: strength 5/5 throughout and general weakness Psych thought process normal, cooperative and affect normal Appearance: appropriate Assessment & Plan Assessment/Plan (1) Cellulitis of left lower limb: (2) Abscess of bursa, left ankle and foot: PLAN: Plan #Diabetic foot abscess and cellulitis of the LLE * Podiatry on board * he had I&D of LLE abscess and delayed primary closeure of LLE wound with application of graft or skin substitute to LLE medial ankle wounds. * Blood wound and blood cultures. Consult podiatry. * on IV vancomycin and cefepime * Wound cultures growing possible Enterococcus species as well as Pseudomonas. * #Hypertension: On losartan. IV hydralazine prn #Type 2 diabetes mellitus: On metformin and Rybelsus. ISS. Accuchecks ACHS #Hyperlipidemia: On statin DVT prophylaxis: Lovenox Charges/Coding Visit Charges Inpatient E&M: 58677 Subs Hosp L2
[2023-09-02] MEDS: metroNIDAZOLE 500 MG Tablet PO ×2 (15:27→23:05)
[2023-09-02 15:31] VITALS: BP 125/77; PULSE 96; RESP 18; TEMP 36.3; O2SAT 98
--- NOTE | 2023-09-02 15:32 | PCM.OP.PRO ---
Procedure Report Date of Procedure: 09/02/23 Assessment & Plan Assessment/Plan (1) Osteomyelitis of ankle, left, acute: Procedures Radiology Radiology Access Procedures: PICC Procedure Time Out Time Out Informed consent given: Yes Consent signed: Yes Time out checklist: patient, procedure, site marked/identified, positioning of patient, supplies available and allergies confirmed Time out verified: Yes Time out date: 09/02/23 Time out time: 14:20 PICC Line Consent Screening tool completed:: Yes Consent obtained:: Yes Consent given by (patient or responsible constitution party):: patient Line successful (if no, document why in comments):: Yes Insertion Reason for Insertion: Care Home Medication Date of Insertion: 09/02/23 Ok to use: Yes Type of PICC inserted: Single Power PICC PICC Lot #: [id number] PICC Reference #: [id number] Microintroducer Used: Yes (in kit) Ultrasound/Equipment Used: Probe Cover Kit Trimmed Length (cm): 55 Insertion Length (cm): 52 Exposed Length (cm): 3 Tip Placement: Caval Atrial Junction Placement Confirmation: 3CG Insertion Vein: Left Basilic Insertion Attempts: 1 Local Anesthesia Used: Lidocaine 1% (in kit) Dressing Applied: Statlock and Tegaderm CHG Arm Measurement above site (in cm): 33 Patient Tolerated Procedure: Well Threading Difficulties: No Comments Comment: Patient identity was verified with two patient identifiers. Informed consent was obtained and time-out was completed. Hands were sanitized. The patient was positioned supine with left arm at 90 degrees. The patient's upper arm vasculature was assessed using ultrasound, and the left basilic vein was externally marked. An external measurement was obtained of 55 cm. External leads were applied to the patient's right upper chest and laterally and inferior of the umbilicus on the mid axillary line. Cap, mask, and prep gloves were donned. The underdrape was placed under the patient's arm. The site was prepped with chlorhexidine, and tourniquet was loosely applied. Prep gloves were discarded, and hands were sanitized. The sterile kit was opened with additional supplies dropped in. Sterile gown and gloves were donned, and the patient was draped. The sterile kit was assembled with all needle, introducer, connector, and catheter flushed with sterile normal saline. The marked site of insertion was anesthetized with 1% lidocaine. Patient tolerated well. The left basilic vein was then accessed using ultrasound guidance and guidewire was inserted to safety len. The tourniquet was released. The access needle was removed while securing the guidewire in place. The site was again anesthetized with 1% lidocaine, prior to insertion of introducer sheath and dilator. Patient tolerated well. The catheter was trimmed to a length of 55 cm. Using 3C guidance, the catheter was then inserted through the introducer sheath, slowly. There was no resistance on insertion. Maximal p-wave, without deflection, was obtained at an insertion length of 52 cm, leaving 3 cm external. The introducer sheath was retracted and peeled away, incrementally, while keeping the catheter secured. The stylet was removed. A flushed needleless connector was attached to the single-lumen. Blood return was verified and the lumen was flushed with sterile normal saline in a pulsatile fashion. Total sterile flushes used for the insertion was 5 10 ml syringes. Finally, the insertion site was cleaned with chlorhexidine, and the catheter was secured using a StatLock. The site was covered with a Tegaderm CHG Dressing. Baseline arm circumference was obtained at the insertion site and measured 33 cm. The patient was provided with a patient education handout on PICC line care and verbalized understanding of infection prevention, heavy lifting restriction, maintaining mobility, and watching for any signs of infection. Charge and primary nurse are aware that the PICC line is ready for use.
[2023-09-02] MEDS: 0.9% Saline Lock 10 ML Syringe IV (16:48)
[2023-09-02 17:09] LABS: Bedside Glucose 102 mg/dL (74-106)
[2023-09-02 22:45] VITALS: BP 119/81; PULSE 99; RESP 18; TEMP 36.8; O2SAT 97
[2023-09-02] MEDS: Pravastatin 80 MG Tablet PO (23:16)
[2023-09-02 23:31] LABS: Bedside Glucose 113 mg/dL (74-106)
[2023-09-03 02:47] VITALS: BP 102/62; PULSE 90; RESP 18; TEMP 36.7; O2SAT 97
[2023-09-03 03:02] LABS: Absolute Lymphocyte Count 1.15 X10^3/uL (0.83-4.51); Absolute Neutrophil Count 3.5 X10^3/uL (2.0-7.7); Basophil# 0.02 X10^3/uL; Basophil% 0.4 % (0-1); Eosinophil# 0.47 X10^3/uL; Eosinophils% 8.2 % (0-5); Hematocrit 31.2 % (40-54); Hemoglobin 9.6 g/dL (13.0-16.5); Lymphocyte # 1.15 X10^3/ul (0.83-4.51); Lymphocyte % 20.1 % (19-41); Mean Corp Hgb Conc 30.8 g/dL (32-36); Mean Corpuscular Hgb 23.9 pg (27.0-32.0); Mean Corpuscular Volume 77.8 fL (80-94); Mean Platelet Vol. 9.7 fl (6.2-12.0); Monocyte# 0.57 X10^3/uL; NRBC Flagged by Analyzer 0 % (0-5); Neutrophil # 3.47 X10^3/uL (2.7-7.7); Neutrophil % 60.8 % (47-70); Platelet Count 237 K/mm3 (150-450); RBC Distribution Width CV 13.6 % (11.6-14.6); RBC Distribution Width SD 38.8 fl (35.1-43.9); Red Blood Count 4.01 M/mm3 (4.6-6.2); White Blood Count 5.7 K/mm3 (4.4-11.0)
[2023-09-03 03:39] LABS: Anion Gap 5 (5-15); BUN 20 mg/dL (7-18); BUN/Creat Ratio 25.5 RATIO (10-20); Calcium,Total 8.9 mg/dL (8.5-10.1); Chloride 107 mmol/L (98-107); Creatinine, Serum 0.78 mg/dL (0.70-1.30); EST Glomerular Filtration Rate 116 mL/min (>60); Est Glom Filt Rate - Afr Amer 140 mL/min (>60); Estimated Creatinine Clearance 162.29 ml/min; Glucose 123 mg/dL (74-106); Potassium 3.6 mmol/L (3.5-5.1); Sodium Level 140 mmol/L (136-145)
--- NOTE | 2023-09-03 03:48 | PHA.PHARE_ITS ---
Consult Antibiotic Management Pharmacy has been consulted to manage selected antibiotic: Vancomycin Type of Intervention Type of Consult: Follow-up Labs Labs: Sodium 140 mmol/L (136-145) 09/03/23 02:45 Potassium 3.6 mmol/L (3.5-5.1) 09/03/23 02:45 Chloride 107 mmol/L (98-107) 09/03/23 02:45 Carbon Dioxide 28.0 mmol/L (21.0-32.0) 09/03/23 02:45 Anion Gap 5 (5-15) 09/03/23 02:45 BUN 20 mg/dL (7-18) H 09/03/23 02:45 Creatinine 0.78 mg/dL (0.70-1.30) 09/03/23 02:45 Est GFR (MDRD) Af Amer 140 mL/min (>60) 09/03/23 02:45 Est GFR (MDRD) Non-Af 116 mL/min (>60) 09/03/23 02:45 BUN/Creatinine Ratio 25.5 RATIO (10-20) H 09/03/23 02:45 Glucose 123 mg/dL (74-106) H 09/03/23 02:45 Vancomycin Trough 18.0 ug/mL (5.0-15.0) H 09/03/23 02:45 Random Vancomycin 12.4 ug/mL (0.0-15.0) 09/01/23 01:53 Microbiology Microbiology: Microbiology 08/30/23 11:55 Blood Culture (Wb) - Arm Right Blood Culture - Preliminary No growth in 48 hours. 08/30/23 11:56 Blood Culture (Wb) - Arm Left Blood Culture - Preliminary No growth in 48 hours. 09/01/23 08:20 Bone - Left Foot Gram Stain - Final 09/01/23 08:20 Bone - Left Foot Wound Culture - Preliminary GPC Poss Enterococcus sp Gram negative vance GNR Poss Pseudomonas sp 09/01/23 08:20 Bone - Left Foot Anaerobic Culture - Preliminary Checking for anaerobes, further studies to follow. 09/01/23 08:20 Abs - Aerobic & Anaerobic Swabs Gram Stain - Final 09/01/23 08:20 Abs - Aerobic & Anaerobic Swabs Wound Culture - Preliminary GPC Poss Enterococcus sp 09/01/23 08:20 Abs - Aerobic & Anaerobic Swabs Anaerobic Culture - Pr eliminary Checking for anaerobes, further studies to follow. 09/01/23 08:20 Abs - Aerobic & Anaerobic Swabs Gram Stain - Final 09/01/23 08:20 Abs - Aerobic & Anaerobic Swabs Wound Culture - Preliminary GPC Poss Enterococcus sp 09/01/23 08:20 Abs - Aerobic & Anaerobic Swabs Anaerobic Culture - Preliminary Checking for anaerobes, further studies to follow. 08/30/23 11:58 Wound - Left Foot Gram Stain - Final 08/30/23 11:58 Wound - Left Foot Wound Culture - Final No growth aerobically. Pharmacy Plan for Drug Dosing Pharmacy Plan for Drug Dosing: Pharmacy Service will continue to monitor and adjust dosing as required. TROUGH 18.0 @ 8 HOURS. NO CHANGES, FOLLOW UP TROUGH IN 2 DAYS Follow-Up Labs Follow-Up Labs: Trough: Vancomycin Date/Time Labs Ordered Labs to be done on [date and time ordered]: 09/05 @ 3507
[2023-09-03] MEDS: Vancomycin IV 1,000 MG/200 ML BAG 200 MG IV ×3 (04:12→19:12)
[2023-09-03 04:20] VITALS: BP 120/62; PULSE 89; RESP 18; TEMP 36.7; O2SAT 98
[2023-09-03] MEDS: metroNIDAZOLE 500 MG Tablet PO ×3 (04:22→23:22)
[2023-09-03] MEDS: Glucerna Shake 120 ML LIQUID PO ×2 (07:50→12:22)
[2023-09-03] MEDS: metFORMIN HCl 1,000 MG Tablet 1000 MG PO ×2 (07:50→16:05)
[2023-09-03 08:05] VITALS: BP 118/83; PULSE 90; RESP 18; TEMP 36.7; O2SAT 100
[2023-09-03] MEDS: Enoxaparin 40 MG/0.4 ML Syringe SC (09:50)
[2023-09-03] MEDS: Cefepime HCl 1 GM in 0.9% Normal Saline (50mL MB+) 50 ML IV ×2 (09:50→23:07)
[2023-09-03] MEDS: Calcium Carbonate 500 MG Tablet PO (09:51)
[2023-09-03] MEDS: Losartan Potassium 25 MG Tablet PO (09:51)
[2023-09-03] MEDS: Multivitamins,Therapeutic Tablet 1 TABLET PO (09:51)
--- NOTE | 2023-09-03 11:00 | PN_ITS ---
Subjective Subjective Patient seen and examined. He had no complaints and had an uneventful night. Review of systems is otherwise negative. Objective Data Objective Data Vital Signs: Vital Signs Temp Pulse Resp BP Pulse Ox O2 Del Method 98.0 F 90 18 118/83 H 100 Room Air 09/03/23 08:05 09/03/23 08:05 09/03/23 08:05 09/03/23 08:05 09/03/23 08:05 09/03/23 08:05 Oxygen Delivery Method Room Air Weight: 258 lb 6.108 oz Body Mass Index (BMI) 36.0 Intake & Output: Intake and Output for Last 24 Hours 09/01/23 09/02/23 09/03/23 23:59 23:59 23:59 Intake Total 739 / 739 1600 / 1600 200 / 200 Balance 739 / 739 1600 / 1600 200 / 200 Lab / Micro Data 09/03/23 02:45 09/03/23 02:45 Labs: Laboratory Results - last 24 hr 09/02/23 11:38: POC Glucose 161 H 09/02/23 16:47: POC Glucose 102 09/02/23 23:10: POC Glucose 113 H 09/03/23 02:45: WBC 5.7, RBC 4.01 L, Hgb 9.6 L, Hct 31.2 L, MCV 77.8 L, MCH 23.9 L, MCHC 30.8 L, RDW Std Deviation 38.8, RDW Coeff of Venita 13.6, Plt Count 237, MPV 9.7, Immature Gran % (Auto) 0.500, Neut % (Auto) 60.8, Lymph % (Auto) 20.1, [place] % (Auto) 10.0, Eos % (Auto) 8.2 H, Baso % (Auto) 0.4, Absolute Neuts (auto) 3.5, Absolute Lymphs (auto) 1.15, Nucleated RBC % 0, Sodium 140, Potassium 3.6, Chloride 107, Carbon Dioxide 28.0, Anion Gap 5, BUN 20 H, Creatinine 0.78, Estim Creat Clear Calc 162.29, Est GFR (MDRD) Af Amer 140, Est GFR (MDRD) Non-Af 116, BUN/Creatinine Ratio 25.5 H, Glucose 123 H, Calcium 8.9, Vancomycin Trough 18.0 H Micro: Microbiology 09/01/23 08:20 Bone - Left Foot Gram Stain - Final 09/01/23 08:20 Bone - Left Foot Wound Culture - Final Enterococcus faecalis Pseudomonas aeruginosa 09/01/23 08:20 Bone - Left Foot Anaerobic Culture - Preliminary Checking for anaerobes, further studies to follow. 09/01/23 08:20 Abs - Aerobic & Anaerobic Swabs Gram Stain - Final 09/01/23 08:20 Abs - Aerobic & Anaerobic Swabs Wound Culture - Final Enterococcus faecalis 09/01/23 08:20 Abs - Aerobic & Anaerobic Swabs Anaerobic Culture - Final No anaerobic bacteria isolated. 09/01/23 08:20 Abs - Aerobic & Anaerobic Swabs Gram Stain - Final 09/01/23 08:20 Abs - Aerobic & Anaerobic Swabs Wound Culture - Final Enterococcus faecalis 09/01/23 08:20 Abs - Aerobic & Anaerobic Swabs Anaerobic Culture - Final No anaerobic bacteria isolated. 08/30/23 11:55 Blood Culture (Wb) - Arm Right Blood Culture - Preliminary No growth in 48 hours. 08/30/23 11:56 Blood Culture (Wb) - Arm Left Blood Culture - Preliminary No growth in 48 hours. 08/30/23 11:58 Wound - Left Foot Gram Stain - Final 08/30/23 11:58 Wound - Left Foot Wound Culture - Final No growth aerobically. Physical Exam Const alert, oriented x3, no apparent distress and well nourished General Appearance: cooperative and well developed HEENT normocephalic, head/scalp atraumatic, moist oral mucous membranes, oropharynx normal and gingiva normal Eyes PERRL and EOMs intact bilaterally Neck no lymphadenopathy, supple, no JVD and thyroid normal Lymph Lymphatic: no lymphadenopathy noted and no lymphedema noted Resp normal respiratory effort, normal air movement and clear to auscultation bilaterally Cardio regular rate, regular rhythm, S1 normal heart sound, S2 normal heart sound and no murmurs Palpation: normal PMI GI normal to inspection, nondistended, normoactive bowel sounds, soft to palpation, non-tender and non-distended Extremity Extremity Narrative: left foot wrapped in bandage. Neuro CN's II-XII intact bilaterally, no focal motor deficits, no sensory deficits noted and deep tendon reflexes 2+ bilaterally Motor Exam: strength 5/5 throughout and general weakness Psych thought process normal, cooperative and affect normal Appearance: appropriate Assessment & Plan Assessment/Plan (1) Cellulitis of left lower limb: (2) Abscess of bursa, left ankle and foot: PLAN: Plan #Diabetic foot abscess and cellulitis of the LLE * Podiatry on board * he had I&D of LLE abscess and delayed primary closeure of LLE wound with application of graft or skin substitute to LLE medial ankle wounds. * Blood wound and blood cultures. Consult podiatry. * on IV vancomycin and cefepime * Wound cultures growing possible Enterococcus species as well as Pseudomonas. * #Hypertension: On losartan. IV hydralazine prn #Type 2 diabetes mellitus: On metformin and Rybelsus. ISS. Accuchecks ACHS #Hyperlipidemia: On statin DVT prophylaxis: Lovenox
[2023-09-03 11:46] LABS: Bedside Glucose 179 mg/dL (74-106)
[2023-09-03] MEDS: Insulin Lispro 100 UNIT/ML INSULN.PEN SC (12:21)
[2023-09-03 14:15] VITALS: BP 101/60; PULSE 98; RESP 18; TEMP 36.7; O2SAT 100
[2023-09-03 16:48] LABS: Bedside Glucose 119 mg/dL (74-106)
[2023-09-03] MEDS: Pravastatin 80 MG Tablet PO (23:08)
[2023-09-03 23:32] LABS: Bedside Glucose 109 mg/dL (74-106)
[2023-09-04] MEDS: Vancomycin IV 1,000 MG/200 ML BAG 200 MG IV ×3 (04:02→18:55)
[2023-09-04] MEDS: metroNIDAZOLE 500 MG Tablet PO ×3 (06:00→22:26)
[2023-09-04 06:22] LABS: Absolute Neutrophil Count 3.3 X10^3/uL (2.0-7.7); Basophil# 0.02 X10^3/uL; Basophil% 0.4 % (0-1); Eosinophil# 0.47 X10^3/uL; Eosinophils% 8.7 % (0-5); Hematocrit 34.3 % (40-54); Hemoglobin 10.5 g/dL (13.0-16.5); Lymphocyte % 18.6 % (19-41); Mean Corp Hgb Conc 30.6 g/dL (32-36); Mean Corpuscular Volume 78.3 fL (80-94); Mean Platelet Vol. 9.7 fl (6.2-12.0); Monocyte# 0.54 X10^3/uL; NRBC Flagged by Analyzer 0 % (0-5); Neutrophil # 3.32 X10^3/uL (2.7-7.7); Neutrophil % 61.7 % (47-70); Platelet Count 261 K/mm3 (150-450); RBC Distribution Width CV 13.8 % (11.6-14.6); RBC Distribution Width SD 39.4 fl (35.1-43.9); Red Blood Count 4.38 M/mm3 (4.6-6.2); White Blood Count 5.4 K/mm3 (4.4-11.0)
[2023-09-04 06:24] LABS: Bedside Glucose 138 mg/dL (74-106)
[2023-09-04 06:43] LABS: Anion Gap 1 (5-15); BUN 24 mg/dL (7-18); Calcium,Total 9.6 mg/dL (8.5-10.1); Chloride 108 mmol/L (98-107); Creatinine, Serum 0.89 mg/dL (0.70-1.30); EST Glomerular Filtration Rate 100 mL/min (>60); Est Glom Filt Rate - Afr Amer 121 mL/min (>60); Estimated Creatinine Clearance 142.23 ml/min; Glucose 150 mg/dL (74-106); Potassium 3.4 mmol/L (3.5-5.1); Sodium Level 138 mmol/L (136-145)
[2023-09-04 08:00] VITALS: BP 137/83; PULSE 82; RESP 18; TEMP 36.6; O2SAT 100
[2023-09-04] MEDS: metFORMIN HCl 1,000 MG Tablet 1000 MG PO ×2 (08:44→17:16)
[2023-09-04] MEDS: Multivitamins,Therapeutic Tablet 1 TABLET PO (08:45)
[2023-09-04] MEDS: Calcium Carbonate 500 MG Tablet PO (08:46)
[2023-09-04] MEDS: Potassium Chloride Oral Tablet 20 MEQ 40 MEQ PO (09:03)
[2023-09-04] MEDS: Glucerna Shake 120 ML LIQUID PO ×2 (09:03→17:18)
[2023-09-04] MEDS: Cefepime HCl 1 GM in 0.9% Normal Saline (50mL MB+) 50 ML IV ×2 (10:40→22:25)
[2023-09-04] MEDS: Enoxaparin 40 MG/0.4 ML Syringe SC (10:41)
[2023-09-04] MEDS: Losartan Potassium 25 MG Tablet PO (10:41)
--- NOTE | 2023-09-04 11:08 | PN_ITS ---
Subjective Subjective Patient seen and examined. He had no active complaints. Pain was well- controlled. Review of systems otherwise negative. He has had a PICC line inserted. He has remained hemodynamically stable. Objective Data Objective Data Vital Signs: Vital Signs Temp Pulse Resp BP Pulse Ox O2 Del Method 98 F 82 18 137/83 H 100 Room Air 09/04/23 08:00 09/04/23 08:00 09/04/23 08:00 09/04/23 08:00 09/04/23 08:00 09/04/23 08:00 Oxygen Delivery Method Room Air Weight: 258 lb 6.108 oz Body Mass Index (BMI) 36.0 Intake & Output: Intake and Output for Last 24 Hours 09/02/23 09/03/23 09/04/23 23:59 23:59 23:59 Intake Total 1600 / 1600 2852 / 2852 200 / 200 Balance 1600 / 1600 2852 / 2852 200 / 200 Lab / Micro Data 09/04/23 06:04 09/04/23 06:04 Labs: Laboratory Results - last 24 hr 09/03/23 11:27: POC Glucose 179 H 09/03/23 16:31: POC Glucose 119 H 09/03/23 23:06: POC Glucose 109 H 09/04/23 06:03: POC Glucose 138 H 09/04/23 06:04: WBC 5.4, RBC 4.38 L, Hgb 10.5 L, Hct 34.3 L, MCV 78.3 L, MCH 24.0 L, MCHC 30.6 L, RDW Std Deviation 39.4, RDW Coeff of Venita 13.8, Plt Count 261, MPV 9.7, Immature Gran % (Auto) 0.600, Neut % (Auto) 61.7, Lymph % (Auto) 18.6 L, Page % (Auto) 10.0, Eos % (Auto) 8.7 H, Baso % (Auto) 0.4, Absolute Neuts (auto) 3.3, Absolute Lymphs (auto) 1.00, Nucleated RBC % 0, Sodium 138, Potassium 3.4 L, Chloride 108 H, Carbon Dioxide 29.0, Anion Gap 1 L, BUN 24 H, Creatinine 0.89, Estim Creat Clear Calc 142.23, Est GFR (MDRD) Af Amer 121, Est GFR (MDRD) Non-Af 100, BUN/Creatinine Ratio 27.0 H, Glucose 150 H, Calcium 9.6 Micro: Microbiology 09/01/23 08:20 Bone - Left Foot Gram Stain - Final 09/01/23 08:20 Bone - Left Foot Wound Culture - Final Enterococcus faecalis Pseudomonas aeruginosa 09/01/23 08:20 Bone - Left Foot Anaerobic Culture - Final No anaerobic bacteria isolated. 09/01/23 08:20 Abs - Aerobic & Anaerobic Swabs Gram Stain - Final 09/01/23 08:20 Abs - Aerobic & Anaerobic Swabs Wound Culture - Final Enterococcus faecalis 09/01/23 08:20 Abs - Aerobic & Anaerobic Swabs Anaerobic Culture - Final No anaerobic bacteria isolated. 09/01/23 08:20 Abs - Aerobic & Anaerobic Swabs Gram Stain - Final 09/01/23 08:20 Abs - Aerobic & Anaerobic Swabs Wound Culture - Final Enterococcus faecalis 09/01/23 08:20 Abs - Aerobic & Anaerobic Swabs Anaerobic Culture - Final No anaerobic bacteria isolated. 08/30/23 11:55 Blood Culture (Wb) - Arm Right Blood Culture - Preliminary No growth in 48 hours. 08/30/23 11:56 Blood Culture (Wb) - Arm Left Blood Culture - Preliminary No growth in 48 hours. 08/30/23 11:58 Wound - Left Foot Gram Stain - Final 08/30/23 11:58 Wound - Left Foot Wound Culture - Final No growth aerobically. Physical Exam Const alert, oriented x3, no apparent distress and well nourished General Appearance: cooperative and well developed HEENT normocephalic, head/scalp atraumatic, moist oral mucous membranes, oropharynx normal and gingiva normal Eyes PERRL and EOMs intact bilaterally Neck no lymphadenopathy, supple, no JVD and thyroid normal Lymph Lymphatic: no lymphadenopathy noted and no lymphedema noted Resp normal respiratory effort, normal air movement and clear to auscultation bilaterally Cardio regular rate, regular rhythm, S1 normal heart sound, S2 normal heart sound and no murmurs Palpation: normal PMI GI normal to inspection, nondistended, normoactive bowel sounds, soft to palpation, non-tender and non-distended Extremity Extremity Narrative: left foot wrapped in bandage. Neuro CN's II-XII intact bilaterally, no focal motor deficits, no sensory deficits noted and deep tendon reflexes 2+ bilaterally Motor Exam: strength 5/5 throughout and general weakness Psych thought process normal, cooperative and affect normal Appearance: appropriate Assessment & Plan Assessment/Plan (1) Cellulitis of left lower limb: (2) Abscess of bursa, left ankle and foot: PLAN: Plan #Diabetic foot abscess and cellulitis of the LLE * Podiatry on board * he had I&D of LLE abscess and delayed primary closeure of LLE wound with ap plication of graft or skin substitute to LLE medial ankle wounds. * Blood wound and blood cultures. Consult podiatry. * on IV vancomycin and cefepime * Wound cultures growing possible Enterococcus species as well as Pseudomonas. * ID on board; awaiting final rec's for antibiotics * #Hypertension: On losartan. IV hydralazine prn #Type 2 diabetes mellitus: On metformin and Rybelsus. ISS. Accuchecks ACHS #Hyperlipidemia: On statin DVT prophylaxis: Lovenox Charges/Coding Visit Charges Inpatient E&M: 33254 Subs Hosp L2
[2023-09-04 12:00] VITALS: PULSE 82; RESP 18; O2SAT 100
[2023-09-04 14:00] VITALS: BP 125/88; PULSE 85; RESP 18; TEMP 36.6; O2SAT 99
[2023-09-04 14:43] LABS: Bedside Glucose 134 mg/dL (74-106)
[2023-09-04 17:33] LABS: Bedside Glucose 113 mg/dL (74-106)
[2023-09-04 17:59] VITALS: PULSE 85; RESP 18; O2SAT 99
[2023-09-04 22:00] VITALS: BP 117/75; PULSE 88; RESP 18; TEMP 36.6; O2SAT 97
[2023-09-04 22:09] LABS: Bedside Glucose 108 mg/dL (74-106)
[2023-09-04] MEDS: Pravastatin 80 MG Tablet PO (22:26)
[2023-09-05 02:50] LABS: Absolute Lymphocyte Count 1.29 X10^3/uL (0.83-4.51); Absolute Neutrophil Count 2.9 X10^3/uL (2.0-7.7); Basophil# 0.04 X10^3/uL; Basophil% 0.7 % (0-1); Eosinophil# 0.55 X10^3/uL; Eosinophils% 10.1 % (0-5); Hematocrit 33.7 % (40-54); Hemoglobin 10.2 g/dL (13.0-16.5); Lymphocyte # 1.29 X10^3/ul (0.83-4.51); Lymphocyte % 23.6 % (19-41); Mean Corp Hgb Conc 30.3 g/dL (32-36); Mean Corpuscular Hgb 23.7 pg (27.0-32.0); Mean Corpuscular Volume 78.2 fL (80-94); Mean Platelet Vol. 9.1 fl (6.2-12.0); Monocyte# 0.61 X10^3/uL; Monocyte% 11.2 % (0-10); NRBC Flagged by Analyzer 0 % (0-5); Neutrophil # 2.94 X10^3/uL (2.7-7.7); Neutrophil % 53.9 % (47-70); Platelet Count 255 K/mm3 (150-450); RBC Distribution Width CV 13.8 % (11.6-14.6); RBC Distribution Width SD 39.6 fl (35.1-43.9); Red Blood Count 4.31 M/mm3 (4.6-6.2); White Blood Count 5.5 K/mm3 (4.4-11.0)
[2023-09-05 03:17] LABS: Vancomycin, Trough Level 20.6 ug/mL (5.0-15.0)
--- NOTE | 2023-09-05 03:27 | PCM.RX.CS ---
Consult Antibiotic Management Pharmacy has been consulted to manage selected antibiotic: Vancomycin Type of Intervention Type of Consult: Follow-up Labs Labs: Vancomycin Trough 20.6 ug/mL (5.0-15.0) H 09/05/23 02:40 Random Vancomycin 12.4 ug/mL (0.0-15.0) 09/01/23 01:53 Microbiology Microbiology: Microbiology 08/30/23 11:56 Blood Culture (Wb) - Arm Left Blood Culture - Final No growth in 5 days. 08/30/23 11:55 Blood Culture (Wb) - Arm Right Blood Culture - Final No growth in 5 days. 09/01/23 08:20 Bone - Left Foot Gram Stain - Final 09/01/23 08:20 Bone - Left Foot Wound Culture - Final Enterococcus faecalis Pseudomonas aeruginosa 09/01/23 08:20 Bone - Left Foot Anaerobic Culture - Final No anaerobic bacteria isolated. 09/01/23 08:20 Abs - Aerobic & Anaerobic Swabs Gram Stain - Final 09/01/23 08:20 Abs - Aerobic & Anaerobic Swabs Wound Culture - Final Enterococcus faecalis 09/01/23 08:20 Abs - Aerobic & Anaerobic Swabs Anaerobic Culture - Final No anaerobic bacteria isolated. 09/01/23 08:20 Abs - Aerobic & Anaerobic Swabs Gram Stain - Final 09/01/23 08:20 Abs - Aerobic & Anaerobic Swabs Wound Culture - Final Enterococcus faecalis 09/01/23 08:20 Abs - Aerobic & Anaerobic Swabs Anaerobic Culture - Final No anaerobic bacteria isolated. 08/30/23 11:58 Wound - Left Foot Gram Stain - Final 08/30/23 11:58 Wound - Left Foot Wound Culture - Final No growth aerobically. Goal Trough Goal Trough: 15-20 mcg/mL Pharmacy Plan for Drug Dosing Pharmacy Plan for Drug Dosing: Pharmacy Service will continue to monitor and adjust dosing as required. TROUGH 20.6 @ 8 HOURS. HOLD DOSE AND DRAW RANDOM LEVEL IN 8 HOURS Follow-Up Labs Follow-Up Labs: Trough: Vancomycin Date/Time Labs Ordered Labs to be done on [date and time ordered]: 09/05 @ 1030
[2023-09-05 04:28] LABS: Anion Gap 2 (5-15); BUN 24 mg/dL (7-18); BUN/Creat Ratio 27.1 RATIO (10-20); Calcium,Total 9.6 mg/dL (8.5-10.1); Chloride 108 mmol/L (98-107); Creatinine, Serum 0.89 mg/dL (0.70-1.30); EST Glomerular Filtration Rate 100 mL/min (>60); Est Glom Filt Rate - Afr Amer 122 mL/min (>60); Estimated Creatinine Clearance 142.23 ml/min; Glucose 107 mg/dL (74-106); Potassium 3.9 mmol/L (3.5-5.1); Sodium Level 141 mmol/L (136-145)
[2023-09-05] MEDS: metroNIDAZOLE 500 MG Tablet PO ×2 (06:04→13:20)
[2023-09-05 06:30] LABS: Bedside Glucose 114 mg/dL (74-106)
[2023-09-05 07:50] VITALS: BP 131/78; PULSE 86; RESP 18; TEMP 36.6; O2SAT 97
[2023-09-05] MEDS: Calcium Carbonate 500 MG Tablet PO (07:55)
[2023-09-05] MEDS: metFORMIN HCl 1,000 MG Tablet 1000 MG PO ×2 (07:55→16:35)
[2023-09-05] MEDS: Multivitamins,Therapeutic Tablet 1 TABLET PO (07:55)
[2023-09-05] MEDS: Enoxaparin 40 MG/0.4 ML Syringe SC (07:56)
[2023-09-05] MEDS: Losartan Potassium 25 MG Tablet PO (07:56)
[2023-09-05] MEDS: Cefepime HCl 1 GM in 0.9% Normal Saline (50mL MB+) 50 ML IV (09:21)
[2023-09-05] MEDS: 0.9% Saline Lock 10 ML Syringe IV ×2 (09:22→14:12)
--- NOTE | 2023-09-05 10:01 | CASEMGMT ---
Addendum entered by Dione Andrews 09/05/23 15:39: BUDDY DAVIS into pt room, provided pt with benefit info regarding HHC. Pt is aware he will have a dose of the IV antibiotic ordered for at home prior to dc and then HH will be out tomorrow morning. He is aware that ID ok'd missing one dose for homegoing. Pt parents present in room and father states he would be willing and able to perform wound care if need be as he has done this before in the past. Pt denies any further needs at this time. Original Note: Picc insertion information sent via [facility] to [facility] at this time.
--- NOTE | 2023-09-05 10:55 | WOUNDNOTE ---
wound photo: left lateral foot
--- NOTE | 2023-09-05 10:55 | WOUNDNOTE ---
wound photo: left medial foot
[2023-09-05 11:27] LABS: Vancomycin, Random Level 12.4 ug/mL (0.0-15.0)
[2023-09-05 11:33] LABS: Bedside Glucose 120 mg/dL (74-106)
--- NOTE | 2023-09-05 11:48 | PCM.RX.CS ---
Consult Antibiotic Management Pharmacy has been consulted to manage selected antibiotic: Vancomycin Type of Intervention Type of Consult: Follow-up Suspected Infection Suspected Infection: Other (diabetic foot infection/cellulitis) Labs Labs: Sodium 141 mmol/L (136-145) 09/05/23 02:40 Potassium 3.9 mmol/L (3.5-5.1) 09/05/23 02:40 Chloride 108 mmol/L (98-107) H 09/05/23 02:40 Carbon Dioxide 31.0 mmol/L (21.0-32.0) 09/05/23 02:40 Anion Gap 2 (5-15) L 09/05/23 02:40 BUN 24 mg/dL (7-18) H 09/05/23 02:40 Creatinine 0.89 mg/dL (0.70-1.30) 09/05/23 02:40 Est GFR (MDRD) Af Amer 122 mL/min (>60) 09/05/23 02:40 Est GFR (MDRD) Non-Af 100 mL/min (>60) 09/05/23 02:40 BUN/Creatinine Ratio 27.1 RATIO (10-20) H 09/05/23 02:40 Glucose 107 mg/dL (74-106) H 09/05/23 02:40 Vancomycin Trough 20.6 ug/mL (5.0-15.0) H 09/05/23 02:40 Random Vancomycin 12.4 ug/mL (0.0-15.0) 09/05/23 10:14 Microbiology Microbiology: Microbiology 08/30/23 11:56 Blood Culture (Wb) - Arm Left Blood Culture - Final No growth in 5 days. 08/30/23 11:55 Blood Culture (Wb) - Arm Right Blood Culture - Final No growth in 5 days. 09/01/23 08:20 Bone - Left Foot Gram Stain - Final 09/01/23 08:20 Bone - Left Foot Wound Culture - Final Enterococcus faecalis Pseudomonas aeruginosa 09/01/23 08:20 Bone - Left Foot Anaerobic Culture - Final No anaerobic bacteria isolated. 09/01/23 08:20 Abs - Aerobic & Anaerobic Swabs Gram Stain - Final 09/01/23 08:20 Abs - Aerobic & Anaerobic Swabs Wound Culture - Final Enterococcus faecalis 09/01/23 08:20 Abs - Aerobic & Anaerobic Swabs Anaerobic Culture - Final No anaerobic bacteria isolated. 09/01/23 08:20 Abs - Aerobic & Anaerobic Swabs Gram Stain - Final 09/01/23 08:20 Abs - Aerobic & Anaerobic Swabs Wound Culture - Final Enterococcus faecalis 09/01/23 08:20 Abs - Aerobic & Anaerobic Swabs Anaerobic Culture - Final No anaerobic bacteria isolated. 08/30/23 11:58 Wound - Left Foot Gram Stain - Final 08/30/23 11:58 Wound - Left Foot Wound Culture - Final No growth aerobically. Pharmacy Plan for Drug Dosing Pharmacy Plan for Drug Dosing: VANCOMYCIN LEVEL RECEIVED Current Vancomycin Dose: HOLD, LAST REGIMEN WAS 1000MG Q8 Number of Doses Received: 12 Vancomycin Level: 12.4 mg/dL Hours Since Last Dose: 15 Renal Function: SCr 0.89 mg/dl, CrCL >100mL/min Renal Function Trend: stable Lab/Micro: Enterococcus in wound cx Vancomycin Plan/Comments: 15 hour random vancomycin level came back subtherapeutic at 12.4 mg/dL (goal 15-20). Last trough was only slightly elevated at 20.6 mg/dl on 1000mg Q8 so will restart dosing at 750mg Q8 and get a trough prior to 4th dose of new regimen. Pending Level: 09/06/23 @ 1130 Pharmacy Service will continue to monitor and adjust dosing as required.
--- NOTE | 2023-09-05 12:05 | PN_ITS ---
Objective Data Objective Data Vital Signs: Vital Signs Temp Pulse Resp BP Pulse Ox O2 Del Method 97.8 F 86 18 131/78 H 97 Room Air 09/05/23 07:50 09/05/23 07:50 09/05/23 07:50 09/05/23 07:50 09/05/23 07:50 09/05/23 07:50 Oxygen Delivery Method Room Air Weight: 117.2 kg Body Mass Index (BMI) 36.0 Intake & Output: Intake and Output for Last 24 Hours 09/03/23 09/04/23 09/05/23 23:59 23:59 23:59 Intake Total 2852 / 2852 1700 / 1700 50 / 50 Balance 2852 / 2852 1700 / 1700 50 50 Lab / Micro Data 09/05/23 02:40 09/05/23 02:40 Labs: Laboratory Results - last 24 hr 09/04/23 11:30: POC Glucose 134 H 09/04/23 17:13: POC Glucose 113 H 09/04/23 21:50: POC Glucose 108 H 09/05/23 02:40: WBC 5.5, RBC 4.31 L, Hgb 10.2 L, Hct 33.7 L, MCV 78.2 L, MCH 23.7 L, MCHC 30.3 L, RDW Std Deviation 39.6, RDW Coeff of Venita 13.8, Plt Count 255, MPV 9.1, Immature Gran % (Auto) 0.500, Neut % (Auto) 53.9, Lymph % (Auto) 23.6, [place] % (Auto) 11.2 H, Eos % (Auto) 10.1 H, Baso % (Auto) 0.7, Absolute Neuts (auto) 2.9, Absolute Lymphs (auto) 1.29, Nucleated RBC % 0, Sodium 141, Potassium 3.9, Chloride 108 H, Carbon Dioxide 31.0, Anion Gap 2 L, BUN 24 H, Creatinine 0.89, Estim Creat Clear Calc 142.23, Est GFR (MDRD) Af Amer 122, Est GFR (MDRD) Non-Af 100, BUN/Creatinine Ratio 27.1 H, Glucose 107 H, Calcium 9.6, Vancomycin Trough 20.6 H 09/05/23 06:01: POC Glucose 114 H 09/05/23 10:14: Random Vancomycin 12.4 09/05/23 11:16: POC Glucose 120 H Micro: Microbiology 08/30/23 11:56 Blood Culture (Wb) - Arm Left Blood Culture - Final No growth in 5 days. 08/30/23 11:55 Blood Culture (Wb) - Arm Right Blood Culture - Final No growth in 5 days. 09/01/23 08:20 Bone - Left Foot Gram Stain - Final 09/01/23 08:20 Bone - Left Foot Wound Culture - Final Enterococcus faecalis Pseudomonas aeruginosa 09/01/23 08:20 Bone - Left Foot Anaerobic Culture - Final No anaerobic bacteria isolated. 09/01/23 08:20 Abs - Aerobic & Anaerobic Swabs Gram Stain - Final 09/01/23 08:20 Abs - Aerobic & Anaerobic Swabs Wound Culture - Final Enterococcus faecalis 09/01/23 08:20 Abs - Aerobic & Anaerobic Swabs Anaerobic Culture - Final No anaerobic bacteria isolated. 09/01/23 08:20 Abs - Aerobic & Anaerobic Swabs Gram Stain - Final 09/01/23 08:20 Abs - Aerobic & Anaerobic Swabs Wound Culture - Final Enterococcus faecalis 09/01/23 08:20 Abs - Aerobic & Anaerobic Swabs Anaerobic Culture - Final No anaerobic bacteria isolated. 08/30/23 11:58 Wound - Left Foot Gram Stain - Final 08/30/23 11:58 Wound - Left Foot Wound Culture - Final No growth aerobically. Physical Exam Narrative Left lower extremity wound was examined today no residual purulence to the lateral ankle. Medial ankle wounds appear healthy granular as well. No active bleeding at current. No sign DVT. Assessment & Plan Assessment/Plan (1) Osteomyelitis of ankle, left, acute: PLAN: Exam performed Wound appears healthy today. Redressed Betadine soaked gauze 4 x 4's Kerlix Sal bandage Bone + E. Fecaelis/Pseudomonas ID on board; PICC ordered - await final abx recommendations patient will d/c with [facility] order status for left side Patient will require home health care dressing changes 2-3x per week consisting of betadine wet to dry and sal bandage for compressoin follow up in 1 week at wound care center (2) Charcot foot due to diabetes mellitus: (3) Abscess of bursa, left ankle and foot: (4) Cellulitis of left lower limb: (5) Non-pressure chronic ulcer of left 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:
[2023-09-05 14:08] VITALS: BP 113/67; PULSE 100; RESP 18; TEMP 36.7; O2SAT 98
[2023-09-05] MEDS: Vancomycin HCl 750 MG in 0.9% Normal Saline (250mL Bag) 250 ML 250 MG IV (14:10)
--- NOTE | 2023-09-05 14:41 | CM.UR ---
ATB Rx Faxed to [facility] and sent to [facility] via [facility].
--- NOTE | 2023-09-05 14:44 | DCINST_ITS ---
Discharge Instructions Diet Discharge Diet: Low fat / Low cholesterol and Carb Control Diet Activity Discharge Activity: Return to Normal Activity Dressing / Incision Call your doctor if you observe: Fever of 101 or Higher, Shortness of breath, Dizziness, Fainting spells, Swelling in the ankles, Chest pain and Increased palpitations (irregular heartbeat) Follow Up Care Test Results: Test results from this visit will be discussed in further detail at your follow- up appointment, if applicable. Discharge Plan Admission Admit Date/Time: 08/30/23 13:24 Attending Provider: Terry Rice Primary Care Provider: Dom Villagomez Consulting Providers: Jordi Perkins; Yoan Vee; Angélica Escalante Instructions Additional Instructions / Restrictions: Patient will require home health care dressing changes 2-3x per week consisting of betadine wet to dry and martha bandage for compressoin follow up in 1 week at wound care center non-weightbearing on left assisted by knee scooter/walker/wheelchair Discharge Orders/Prescriptions Prescriptions: New meropenem 1 gram Recon Soln 1 g IV Q8 38 Days Qty: 114 0RF Rx Instructions: stop date 10/13/23. Dx foot osteo. Weekly bmp, cbc, LFT, and esr; fax to [phone] Continued metformin 1,000 mg tablet 1,000 mg PO BID multivitamin Tablet 1 tab PO DAILY calcium citrate 200 mg (950 mg) Tablet 200 mg PO DAILY losartan 25 mg Tablet 25 mg PO DAILY Rybelsus 14 mg tablet 14 mg PO DAILY pravastatin 80 mg tablet 80 mg PO QHS omega 1-tng-yby-fish oil [Fish Oil] 300-1,000 mg capsule 2 cap PO DAILY C Complex 1,000 mg tablet extended release 1,000 mg PO DAILY Referrals / Follow Up: Jordi Perkins DPM [Med Staff - Active Staff] - Within 2 Weeks Dom Villagomez DO [Primary Care Provider] - Within 1 Week Yoan Vee MD [Med Staff - Active Staff] - Within 2 Weeks Disposition Disposition (needs filled in before D/C Order can be placed): Home Health Service
--- NOTE | 2023-09-05 14:47 | PCM.DC.SUM ---
Providers Date of Admission: 08/30/23 Primary Care Physician: Dr. Dom Villagomez DO Consultations 08/30/23 14:13 Consult: Onc/Wound/lease analyst Routine Comment: Reason for Consult:: left foot, seen at wound center by Dr. Perkins 09/01/23 09:51 Consult: Infectious Disease Routine Consulting Provider: Yoan Vee Reason for Consult: PICC line, abx management EMERGENT Consult: No MD Notified: Yes Date Notified: 09/01/23 Time Notified: 14:47 Method of Notification: backline 09/01/23 11:21 Consult: Podiatry Routine Consulting Provider: Jordi Perkins Reason for Consult: foot infection EMERGENT Consult: No MD Notified: Yes Date Notified: 09/01/23 Time Notified: 11:22 Method of Notification: Verbal Reason For Visit: DIABETIC FOOT ABSCESS AND CELLULITIS Diagnosis Discharge Diagnosis (1) Osteomyelitis of ankle, left, acute: Status: Acute Code(s): M86.172 - Other acute osteomyelitis, left ankle and foot (2) Charcot foot due to diabetes mellitus: Status: Acute Code(s): E11.610 - 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 arthropathy (3) Abscess of bursa, left ankle and foot: Status: Acute Code(s): M71.072 - Abscess of bursa, left ankle and foot (4) Cellulitis of left lower limb: Status: Acute Code(s): L03.116 - Cellulitis of left lower limb (5) Non-pressure chronic ulcer of left 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: Status: Chronic Code(s): L97.322 - Non-pressure chronic ulcer of left 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 Medications at Discharge Home Medications metformin 1,000 mg tablet 1,000 mg PO BID diabetes 11/14/21 calcium citrate 200 mg (950 mg) tablet 200 mg PO DAILY SUPPLEMENT 11/24/21 multivitamin 1 tab PO DAILY SUPPLEMENT 11/24/21 losartan 25 mg tablet 25 mg PO DAILY BLOOD PRESSURE 09/15/22 semaglutide 14 mg tablet (Rybelsus) 14 mg PO DAILY DIABETES 07/06/23 ascorbic acid (vitamin C) 1,000 mg tablet,extended release (C Complex) 1,000 mg PO DAILY SUPPLEMENT 08/30/23 omega 1-tpm-nml-fish oil 300 mg-1,000 mg capsule (Fish Oil) 2 cap PO DAILY SUPPLEMENT 08/30/23 pravastatin 80 mg tablet 80 mg PO QHS CHOLESTEROL 08/30/23 meropenem 1 gram intravenous solution 1 g IV Q8 38 days #114 ea 09/05/23 Hospital Course Operations - (1) Incision and drainage abscess left lower extremity down to level bone 2) Delayed primary closure left lower extremity wound 3) Wound site debridement with wound bed red preparation for graft application left lower extremity medial ankle wounds x 2 4) Application of graft or skin substitute to ) Procedures PICC line placement Summary of Care Provided Minutes Spent on Discharge: 38 Hospital Course: Per HPI: SNEHA WEI, is a 43 M with a PMH as outlined who presents via the ED on 08/30/2023 with a complaitn of abscess of the left foot. HE went to the wound clinic where he has been seeing podiatry. HE had Charcot foot surgery ~ 6 weeks ago. TOday he was noted to be having purulent drainage from the left foot wound. He denied any fever, chills or increased pain. Review of systms was otherwise negative. He denied any significant pain due to neuropathy but admitted to redness and swelling of the left foot. Vitals in the ED were BP of 118/67, OR of 87, RR of 15 and temp of 98.2F. He was saturating at 98% on room air. CBC was largely unremarkable with wbc of 5. Chemistry was unremarkable. Wound cultures were obtained, and patient is being admitted to be managed for infected left foot diabetic wound. Hospital course: 1. Diabetic foot abscess with cellulitis of the left lower extremity status post I&D with delayed primary closure?43-year-old male with history of type 2 diabetes presented to the hospital with left foot abscess in the setting of Charcot. He had operative debridement with delayed primary closure. And he has been doing very well from a pain management standpoint and infectious disease was consulted for antibiotic management, they ultimately elected to proceed with meropenem 3 times a day through his PICC line as his wound culture grew Enterococcus faecalis as well as Pseudomonas. He will need home health care for wound dressings on discharge. He will need close outpatient follow-up with podiatry and infectious disease. I discussed with him the plan for possible discharge today he expressed understanding of the risk and benefits of going home and would like to go today. 2. Type 2 diabetes, hypertension, hyperlipidemia chronic medical conditions which complicate his care. His home medications were continued where appropriate Physical Exam Narrative General: Alert, Oriented x3, Cooperative, No apparent distress HEENT: Atraumatic, PERRLA, EOMI, Normocephalic Oral: Moist Mucosa Neck: Supple, No JVD Lungs: Clear to auscultation, Normal air movement, No rhonchi, No wheeze, No rales Cardiovascular: Regular rate, Regular Rhythm, Normal S1, Normal S2, No murmurs Abdomen: Soft, Non Tender, Non-Distended, No Hepato-splenomegaly Extremities: No edema, Capillary Refill Less than 3 Seconds Skin: Left lower extremity wound is dressed, pictures reviewed Musculoskeletal: No Tenderness to Palpation of Joints or Extremities Neurological: Cranial nerves II-XII grossly intact, Motor Exam 5/5 strength throughout, Sensory exam intact to light touch and pain Psych/Mental Status: Normal Affect, Appropriate Weight / BMI Weight Weight: 258 lb 6.108 oz Body Mass Index (BMI) 36.0 ABG / Lab / Microbiology Data 09/05/23 02:40 09/05/23 02:40 Laboratory: Laboratory Results - last 24 hr 09/04/23 17:13: POC Glucose 113 H 09/04/23 21:50: POC Glucose 108 H 09/05/23 02:40: WBC 5.5, RBC 4.31 L, Hgb 10.2 L, Hct 33.7 L, MCV 78.2 L, MCH 23.7 L, MCHC 30.3 L, RDW Std Deviation 39.6, RDW Coeff of Venita 13.8, Plt Count 255, MPV 9.1, Immature Gran % (Auto) 0.500, Neut % (Auto) 53.9, Lymph % (Auto) 23.6, Blanco % (Auto) 11.2 H, Eos % (Auto) 10.1 H, Baso % (Auto) 0.7, Absolute Neuts (auto) 2.9, Absolute Lymphs (auto) 1.29, Nucleated RBC % 0, Sodium 141, Potassium 3.9, Chloride 108 H, Carbon Dioxide 31.0, Anion Gap 2 L, BUN 24 H, Creatinine 0.89, Estim Creat Clear Calc 142.23, Est GFR (MDRD) Af Amer 122, Est GFR (MDRD) Non-Af 100, BUN/Creatinine Ratio 27.1 H, Glucose 107 H, Calcium 9.6, Vancomycin Trough 20.6 H 09/05/23 06:01: POC Glucose 114 H 09/05/23 10:14: Random Vancomycin 12.4 09/05/23 11:16: POC Glucose 120 H Microbiology: Microbiology 08/30/23 11:56 Blood Culture (Wb) - Arm Left Blood Culture - Final No growth in 5 days. 08/30/23 11:55 Blood Culture (Wb) - Arm Right Blood Culture - Final No growth in 5 days. 09/01/23 08:20 Bone - Left Foot Gram Stain - Final 09/01/23 08:20 Bone - Left Foot Wound Culture - Final Enterococcus faecalis Pseudomonas aeruginosa 09/01/23 08:20 Bone - Left Foot Anaerobic Culture - Final No anaerobic bacteria isolated. 09/01/23 08:20 Abs - Aerobic & Anaerobic Swabs Gram Stain - Final 09/01/23 08:20 Abs - Aerobic & Anaerobic Swabs Wound Culture - Final Enterococcus faecalis 09/01/23 08:20 Abs - Aerobic & Anaerobic Swabs Anaerobic Culture - Final No anaerobic bacteria isolated. 09/01/23 08:20 Abs - Aerobic & Anaerobic Swabs Gram Stain - Final 09/01/23 08:20 Abs - Aerobic & Anaerobic Swabs Wound Culture - Final Enterococcus faecalis 09/01/23 08:20 Abs - Aerobic & Anaerobic Swabs Anaerobic Culture - Final No anaerobic bacteria isolated. 08/30/23 11:58 Wound - Left Foot Gram Stain - Final 08/30/23 11:58 Wound - Left Foot Wound Culture - Final No growth aerobically. D/C Instructions Discharge Diet: Low fat / Low cholesterol and Carb Control Diet Weight Bearing Status: No weight bearing (Left foot) Call your doctor if your incision/area has: Continuous Slow Oozing, Sudden Increased Bleeding, Increased Redness and Foul Smelling Discharge Call your doctor if you observe: Fever of 101 or Higher, Shortness of breath, Dizziness, Fainting spells, Swelling in the ankles, Chest pain and Increased palpitations (irregular heartbeat) Meaningful Use Info Meaningful Use Diagnoses (Choose all that apply): None applicable Discharge Plan Admission Admit Date/Time: 08/30/23 13:24 Attending Provider: Terry Rice Primary Care Provider: Dom Villagomez Consulting Providers: Jordi Perkins; Yoan Vee; Angélica Escalante Instructions Additional Instructions / Restrictions: Patient will require home health care dressing changes 2-3x per week consisting of betadine wet to dry and martha bandage for compressoin follow up in 1 week at wound care center non-weightbearing on left assisted by knee scooter/walker/wheelchair Discharge Orders/Prescriptions Prescriptions: New meropenem 1 gram Recon Soln 1 g IV Q8 38 Days Qty: 114 0RF Rx Instructions: stop date 10/13/23. Dx foot osteo. Weekly bmp, cbc, LFT, and esr; fax to [phone] Continued metformin 1,000 mg tablet 1,000 mg PO BID multivitamin Tablet 1 tab PO DAILY calcium citrate 200 mg (950 mg) Tablet 200 mg PO DAILY losartan 25 mg Tablet 25 mg PO DAILY Rybelsus 14 mg tablet 14 mg PO DAILY pravastatin 80 mg tablet 80 mg PO QHS omega 7-apa-jpm-fish oil [Fish Oil] 300-1,000 mg capsule 2 cap PO DAILY C Complex 1,000 mg tablet extended release 1,000 mg PO DAILY Referrals / Follow Up: Jordi Perkins DPM [Med Staff - Active Staff] - Within 2 Weeks Dom Villagomez DO [Primary Care Provider] - Within 1 Week Yoan Vee MD [Med Staff - Active Staff] - Within 2 Weeks Disposition Disposition (needs filled in before D/C Order can be placed): Home Health Service Charges/Coding Visit Charges Inpatient E&M: 39327 Disch Hosp >30min
--- NOTE | 2023-09-05 14:51 | CASEMGMT ---
DC instructions sent to [facility] via [email or web address]. TC to Radha at [facility], she is aware pt will dc today. OK per ID to miss evening dose with HH starting in the morning. HH coverage- 120 visit limit per calendar year. Pt responsible for visits until deductible is met, then covered at 80% until OOP met which is $3106 remaining.
--- NOTE | 2023-09-05 14:59 | PHA.DC.MC.R ---
Pharmacy [facility] Pharmacy Service has performed discharge medication reconciliation and counseling for this patient. The patient's discharge medication list was reviewed for discrepancies and discrepancies were resolved. The patient was counseled on the following discharge medications and changes in medications for homegoing were reviewed. The Reason for Use, instructions for use, and potential side effects were reviewed for all new medications. The patient's questions regarding all of their medications were answered. 1. Meropenem 1000 mg Q8H through 10/13/23 The patient was able to verbally demonstrate an understanding of their discharge medications. Medications at Discharge Home Medications metformin 1,000 mg tablet 1,000 mg PO BID diabetes 11/14/21 calcium citrate 200 mg (950 mg) tablet 200 mg PO DAILY SUPPLEMENT 11/24/21 multivitamin 1 tab PO DAILY SUPPLEMENT 11/24/21 losartan 25 mg tablet 25 mg PO DAILY BLOOD PRESSURE 09/15/22 semaglutide 14 mg tablet (Rybelsus) 14 mg PO DAILY DIABETES 07/06/23 ascorbic acid (vitamin C) 1,000 mg tablet,extended release (C Complex) 1,000 mg PO DAILY SUPPLEMENT 08/30/23 omega 3-qcm-rsh-fish oil 300 mg-1,000 mg capsule (Fish Oil) 2 cap PO DAILY SUPPLEMENT 08/30/23 pravastatin 80 mg tablet 80 mg PO QHS CHOLESTEROL 08/30/23 meropenem 1 gram intravenous solution 1 g IV Q8 38 days #114 ea 09/05/23
[2023-09-05] MEDS: Meropenem 1 GM in 0.9% Normal Saline (100mL MB+) 100 ML IV (15:34)
--- NOTE | 2023-09-05 15:41 | PCM.PN.ID ---
Physical Exam Narrative Feeling better, no fever, no n/v/d. Const alert and no apparent distress General Appearance: cooperative Resp normal air movement and clear to auscultation bilaterally Cardio regular rate and regular rhythm GI soft to palpation, non-tender and non-distended Skin Skin Narrative: foot wrapped ID ID: Route of nutrition/ use of supplements: [] Nutritional Intake: [] IV Site: [] Hernandes Catheter: [] Assessment & Plan Assessment/Plan (1) Osteomyelitis of ankle, left, acute: PLAN: L foot osteo and abscess complicated by hardware - taken to OR 09/01/[address] Perkins for I&D. Cxs so far showing enterococcus, PsA. Narrow abx to meropenem. Plan on 6 weeks iv butch, stop date 10/13/23 with weekly labs, ID followup in 2 weeks, then likely long course suppressive po abx. Will follow (2) Charcot foot due to diabetes mellitus:
[2023-09-05 16:43] LABS: Bedside Glucose 132 mg/dL (74-106)
== END 2023-09-05 19:20 | disposition home health service (06) | DRG 857 ==
LOC: ED 13:17 → MS3 13:40
PROVIDERS: Anesthesiology; Podiatrist; Admitting Provider Student in an Organized Health Care Education/Training Program; Emergency Provider Emergency Medicine; PCP Student in an Organized Health Care Education/Training Program; Visit Provider Family Medicine
PROC: 0JBR0ZZ Excision of Left Foot Subcutaneous Tissue and Fascia, Open Approach (ICD-10-PCS; principal; 2023-09-01 07:20)
DX: T81.41XA Infection following a procedure, superficial incisional surgical site, initial encounter (principal); T84.69XA Infection and inflammatory reaction due to internal fixation device of other site, initial encounter; M86.172 Other acute osteomyelitis, left ankle and foot; L97.322 Non-pressure chronic ulcer of left 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; L03.116 Cellulitis of left lower limb; E11.610 Type 2 diabetes mellitus with diabetic neuropathic arthropathy; E11.42 Type 2 diabetes mellitus with diabetic polyneuropathy; E11.622 Type 2 diabetes mellitus with other skin ulcer; B96.5 Pseudomonas (aeruginosa) (mallei) (pseudomallei) as the cause of diseases classified elsewhere; B95.2 Enterococcus as the cause of diseases classified elsewhere; I10 Essential (primary) hypertension; E11.69 Type 2 diabetes mellitus with other specified complication; E78.5 Hyperlipidemia, unspecified; M71.072 Abscess of bursa, left ankle and foot; X58.XXXA Exposure to other specified factors, initial encounter; Z79.84 Long term (current) use of oral hypoglycemic drugs; Z79.899 Other long term (current) drug therapy
CPT/HCPCS: 36415; 36569; 71046; 80048; 80053; 80202; 82962; 83036; 84134; 85025; 87040; 87070; 87075; 87077; 87184; 87186; 87205; 88304; 88305; 88311; 97802; 99285; J2185; A4216; J2405

== ENCOUNTER 2023-09-06 10:00 | Outpatient (RCR) | payer BC, SELFPAY ==
[2023-08-23 09:41] VITALS: BP 154/80; PULSE 98; RESP 18; TEMP 36.6; BMI 33.9
--- NOTE | 2023-08-23 10:34 | PN.PCM_ITS ---
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 History of Wound: 43-year-old male presents to wound care clinic for follow-up on the left medial ankle wound in setting of diabetic neuropathy status post Charcot reconstruction on 07/15/2023. Patient has been nonweightbearing since that time with weekly applications of AO splint and dressings. Patient denies any constitutional symptoms or chest pain calf pain shortness of breath. Objective Data Objective Data Vital Signs: Vital Signs Temp Pulse Resp BP 97.8 F 98 18 154/80 H 08/23/23 09:41 08/23/23 09:41 08/23/23 09:41 08/23/23 09:41 Weight: 113.398 kg Body Mass Index (BMI) 33.9 Physical Exam Narrative Neurovascular status unchanged. Full-thickness wound noted to the left medial ankle as well as the medial incision and lateral incision. The medial and lateral ankle incisional wounds are small in nature have no signs of infection. Left medial ankle wound is full-thickness down to level of subcutaneous tissue with stable granular base postdebridement. No acute signs of infection deep probing or undermining noted. Pre and postdebridement measurements documented in nursing notes. Musculoskeletal there is rectus alignment of the level of the left ankle and foot relative to the leg as well as correction of the plantar convexity that was noted previously prior to Charcot reconstruction. Const alert and oriented x3 Debridement Note Debridement Note Post-Debridement Measurements and Additional Note: Post-Debridement Measurements/Treatment - Nurse 1 - General Ulcer Assessment Start: 08/23/23 09:40 Freq: Status: Active Protocol: GWEN Activity Type Activity Date Activity User E-sign Co-sign Detail Recorded Client Recorded Date Recorded By Document 08/23/23 09:41 Desktop 08/23/23 10:02 RB 08/23/23 09:41 - Today's Visit Information Type of service Initial Visit Arrival Mode Wheelchair Transfer Assistance Manual Patient Identification Verified (Name & Yes ) Finger Stick Blood Sugar(mg/dl) (if 103 indicated): Blood Sugar Stated by Patient Height and Weight Height 6 ft Weight 113.398 kg Weight in Pounds 250.0 lbs Body Mass Index (BMI) 33.9 BMI Classification Obese BSA - Johnnie 2.34 Vital Signs Temperature (97.8 F-99.1 F) 97.8 F Temperature Source Temporal Pulse Rate (60-100) 98 Pulse Location Monitor Respiratory Rate (12-18) 18 Respiratory rate source Observation Blood Pressure (90/60-120/80) 154/80 H Blood Pressure Mean (mm Hg) 104 Source Monitor Position Semi-Fowlers Blood Pressure Location Left Arm History Since Last Visit- (Skip if this is Patient's initial visit) Left Footwear No Footwear Right Footwear Diabetic Shoe Pain Scale: 0-10 Numeric Is Patient Pain Free? No WC - Nurse 1 - General Ulcer Measurement Start: 08/23/23 09:40 Freq: Status: Active Protocol: Activity Type Activity Date Activity User E-sign Co-sign Detail Recorded Client Recorded Date Recorded By Document 08/23/23 09:41 RB Desktop 08/23/23 10:02 RB 08/23/23 09:41 Wound Center Nurse 1 7. L lateral ankle -Combined with other wound No -Current Size (cm) - Length 0.2 -Current Size (cm) - Width 1.8 -Current Size (cm) - Depth 0.4 -Total Square Cm 0.36 -Photo Taken Yes -Tunneling No -Undermining/Tunneling No -Circular Undermining No -Exudate Amt Medium -Exudate Type Serosanguineous -Wound Margin Distinct, Outline Attached -Granulation Amt Medium (34-66%) -Granulation Quality [place] -Slough/Fibrin Yes -Necrosis Amt Medium (34-66%) -Necrotic Tissue Type Adherent Slough -Structure Exposed N/A -Texture ([place]-wound Skin Appearance) Assessed -Moisture ([place]-wound Skin Appearance) Assessed -Color ([place]-wound Skin Appearance) Assessed -Temperature ([place]-wound Skin No Abnormality Appearance) (Pt Warm) -Tenderness on Palpation ([place]-wound No Skin Appearance) -Ulcer Cleansing Wound Cleanser -Foul Odor after Cleansing No -Anesthetic Used 5% Lidocaine Gel 6. L medial ankle -Combined with other wound No -Current Size (cm) - Length 6 -Current Size (cm) - Width 1.4 -Current Size (cm) - Depth 1.8 -Total Square Cm 8.4 -Photo Taken Yes -Tunneling No -Undermining/Tunneling No -Circular Undermining No -Exudate Amt Medium -Exudate Type Serosanguineous -Wound Margin Distinct, Outline Attached -Granulation Amt Medium (34-66%) -Granulation Quality [place] -Slough/Fibrin Yes -Necrosis Amt Medium (34-66%) -Necrotic Tissue Type Adherent Slough -Structure Exposed N/A -Texture ([place]-wound Skin Appearance) Assessed -Moisture ([place]-wound Skin Appearance) Assessed -Color ([place]-wound Skin Appearance) Assessed -Temperature ([place]-wound Skin No Abnormality Appearance) (Pt Warm) -Tenderness on Palpation ([place]-wound No Skin Appearance) -Ulcer Cleansing Wound Cleanser -Foul Odor after Cleansing No -Anesthetic Used 5% Lidocaine Gel 5. LLE post cluster -Combined with other wound No -Current Size (cm) - Length 4.2 -Current Size (cm) - Width 2.3 -Current Size (cm) - Depth 0.1 -Total Square Cm 9.66 4. L plantar -Combined with other wound No -Current Size (cm) - Length 2 -Current Size (cm) - Width 0.2 -Current Size (cm) - Depth 0.2 -Total Square Cm 0.4 -Photo Taken Yes -Tunneling No -Undermining/Tunneling No -Circular Undermining No -Exudate Amt Medium -Exudate Type Serosanguineous -Wound Margin Distinct, Outline Attached -Granulation Amt Medium (34-66%) -Granulation Quality [place] -Slough/Fibrin Yes -Necrosis Amt Medium (34-66%) -Necrotic Tissue Type Adherent Slough -Structure Exposed N/A -Texture ([place]-wound Skin Appearance) Assessed -Moisture ([place]-wound Skin Appearance) Assessed -Color ([place]-wound Skin Appearance) Assessed -Temperature ([place]-wound Skin No Abnormality Appearance) (Pt Warm) -Tenderness on Palpation ([place]-wound No Skin Appearance) -Ulcer Cleansing Wound Cleanser -Foul Odor after Cleansing No -Anesthetic Used 5% Lidocaine Gel Left Calf (cm) 35 Left Ankle (cm) 26 Assessment/Plan Assessment/Plan (1) Type 2 diabetes mellitus with diabetic polyneuropathy: CODE(S): E11.42 - Type 2 diabetes mellitus with diabetic polyneuropathy PLAN: Exam performed Radiographs of left foot and ankle were ordered today Patient doing well status post left Charcot reconstruction, no infection, alex ent compliant with nonweightbearing restrictions via wheelchair Wound to medial ankle improving no infection. Left medial ankle wound was excisionally debrided down to including level of subcutaneous tissue of all nonviable tissue using a 5 mm dermal curette. Patient tolerated procedure well. Hemostasis obtained with light compression. No anesthesia due to neuropathy. Pre and postdebridement measurements documented nursing notes. Dakin's wet-to-dry was applied along with dry sterile dressing. Overlying total contact cast with the foot held in a rectus position relative to the leg was applied. Patient will maintain nonweightbearing left lower extremity and will follow-up in 1 week. We will likely plan for pin removal in early September. 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
--- NOTE | 2023-08-25 11:10 | RAD_ITS ---
STUDY: X-RAY - LEFT FOOT CLINICAL: Male, 43 years old. WOUND'' TECHNIQUE: 3 view(s) of the foot. COMPARISON: 11/14/2021, 07/15/2023. FINDINGS: Cast obscures bone detail. There is a long single screw through the calcaneus and apparently into the tarsal bones. There are lateral and medial orthopedic K wires crossing through the tarsal bones. Deformities of all of the metatarsals, stable since prior exam. Diffuse soft tissue swelling. 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 RAD/Foot min 3 Views IMPRESSION: Exam very limited by underexposure and cast. When compared to intraoperative C-arm images from 07/15/2023, probably no significant change. Electronically Signed: Pako Simth MD at 20:00 EST ,
--- NOTE | 2023-08-25 11:13 | RAD_ITS ---
STUDY: X-RAY - LEFT ANKLE REASON FOR EXAM: Male, 43 years old. WOUND TECHNIQUE: 3 view(s) of the ankle. COMPARISON: 11/14/2021, 09/17/2022 FINDINGS: Cast obscures bone detail. There has been surgical fusion with IM vance passed through the calcaneus, talus, and into the distal tibia. No bony fusion seen. Additional scanning through the calcaneus and two. K wire along the right and left sides of the foot. Status post resection of the distal ulna. RAD/Ankle min 3 Views IMPRESSION: Limited by cast. Postsurgical changes seen from surgical fusion of the calcaneus, talus, and distal tibia. Electronically Signed: Pako Smith MD at 18:21 EST ,
[2023-08-30 09:34] VITALS: BP 145/75; PULSE 95; RESP 16; TEMP 35.9; BMI 33.9
--- NOTE | 2023-08-30 10:35 | PCM.WC.PN ---
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 History of Wound: 43-year-old male presents to wound care clinic for follow-up on the left medial ankle wound in setting of diabetic neuropathy status post Charcot reconstruction on 07/15/2023. Patient has been nonweightbearing since that time with weekly applications of AO splint and dressings. Patient denies any constitutional symptoms or chest pain calf pain shortness of breath. Objective Data Objective Data Vital Signs: Vital Signs Temp Pulse Resp BP O2 Del Method 96.6 F L 95 16 145/75 H Room Air 08/30/23 09:34 08/30/23 09:34 08/30/23 09:34 08/30/23 09:34 08/30/23 09:34 Oxygen Delivery Method Room Air Weight: 113.398 kg Body Mass Index (BMI) 33.9 Physical Exam Narrative Neurovascular status unchanged. Wound to medial left ankle improved today. There is noted to be worsening to the lateral ankle incision. Small 1 cm opening is noted. There is significant corinna-incisional fluctuance noted. 15 cc of purulent drainage was expressed from the lateral ankle incisional site. Some periwound edema erythema and warmth noted. No other signs of infection noted. Musculoskeletal there is rectus alignment of the level of the left ankle and foot relative to the leg as well as correction of the plantar convexity that was noted previously prior to Charcot reconstruction. Const alert and oriented x3 Debridement Note Debridement Note Post-Debridement Measurements and Additional Note: Post-Debridement Measurements/Treatment - Nurse 1 - General Ulcer Assessment Start: 08/23/23 09:40 Freq: Status: Active Protocol: MARY.LOWEXT Activity Type Activity Date Activity User E-sign Co-sign Detail Recorded Client Recorded Date Recorded By Document 08/23/23 09:41 RB Desktop 08/23/23 10:02 RB Document 08/30/23 09:34 GM Desktop 08/30/23 09:50 08/23/23 08/30/23 09:41 09:34 - Today's Visit Information Type of service Initial Visit Follow-up Visit (Physician/SLED MAKER ) Arrival Mode Wheelchair Ambulatory Transfer Assistance Manual None Patient Identification Verified (Name & Yes Yes ) Patient Requires Transmission-Based No Precautions Finger Stick Blood Sugar(mg/dl) (if 103 indicated): Blood Sugar Stated by Patient Height and Weight Height 6 ft Weight 113.398 kg Weight in Pounds 250.0 lbs Body Mass Index (BMI) 33.9 33.9 BMI Classification Obese Obese BSA - Johnnie 2.34 Vital Signs Temperature (97.8 F-99.1 F) 97.8 F 96.6 F L Temperature Source Temporal Temporal Pulse Rate (60-100) 98 95 Pulse Location Monitor Monitor Respiratory Rate (12-18) 18 16 Respiratory rate source Observation Observation Oxygen Delivery Method Room Air Blood Pressure (90/60-120/80) 154/80 H 145/75 H Blood Pressure Mean (mm Hg) 104 98 Source Monitor Monitor Position Semi-Fowlers Sitting Blood Pressure Location Left Arm Left Arm History Since Last Visit- (Skip if this is Patient's initial visit) Have you changed medications since your No last visit? Any new allergies or adverse reactions No Had a fall/change in ADL's that may No increase risk of falls Signs or symptoms of abuse and/or No neglect since last visit Have you been in the hospital since your No last visit? Has dressing in place as prescribed Yes Has compression in place as prescribed Yes Has offloadiing in place as prescribed Yes Experienced any changes in pain level or No management Left Footwear No Footwear Total Contact Cast Right Footwear Diabetic Shoe Pain Scale: 0-10 Numeric Is Patient Pain Free? No Yes WC - Nurse 1 - General Ulcer Measurement Start: 08/23/23 09:40 Freq: Status: Active Protocol: Activity Type Activity Date Activity User E-sign Co-sign Detail Recorded Client Recorded Date Recorded By Document 08/23/23 09:41 RB Desktop 08/23/23 10:02 RB Document 08/30/23 09:34 Desktop 08/30/23 09:50 08/23/23 08/30/23 09:41 09:34 Wound Center Nurse 1 5. LLE post cluster -Combined with other wound No -Current Size (cm) - Length 4.2 -Current Size (cm) - Width 2.3 -Current Size (cm) - Depth 0.1 -Total Square Cm 9.66 4. L plantar -Combined with other wound No -Current Size (cm) - Length 2 -Current Size (cm) - Width 0.2 -Current Size (cm) - Depth 0.2 -Total Square Cm 0.4 -Photo Taken Yes -Tunneling No -Undermining/Tunneling No -Circular Undermining No -Exudate Amt Medium -Exudate Type Serosanguineous -Wound Margin Distinct, Outline Attached -Granulation Amt Medium (34-66%) -Granulation Quality Nikolski -Slough/Fibrin Yes -Necrosis Amt Medium (34-66%) -Necrotic Tissue Type Adherent Slough -Structure Exposed N/A -Texture (Corinna-wound Skin Appearance) Assessed -Moisture (Corinna-wound Skin Appearance) Assessed -Color (Corinna-wound Skin Appearance) Assessed -Temperature (Corinna-wound Skin No Abnormality Appearance) (Pt Warm) -Tenderness on Palpation (Corinna-wound No Skin Appearance) -Ulcer Cleansing Wound Cleanser -Foul Odor after Cleansing No -Anesthetic Used 5% Lidocaine Gel 7. L lateral ankle -Combined with other wound No -Current Size (cm) - Length 0.2 0.3 -Current Size (cm) - Width 1.8 1.5 -Current Size (cm) - Depth 0.4 0.2 -Total Square Cm 0.36 0.45 -Photo Taken Yes -Tunneling No No -Undermining/Tunneling No No -Circular Undermining No -Exudate Amt Medium Medium -Exudate Type Serosanguineous Purulent -Wound Margin Distinct, Distinct, Outline Outline Attached Attached -Granulation Amt Medium (34-66%) Medium (34-66%) -Granulation Quality Nikolski Nikolski -Slough/Fibrin Yes Yes -Necrosis Amt Medium (34-66%) Medium (34-66%) -Necrotic Tissue Type Adherent Slough Adherent Slough -Structure Exposed N/A N/A -Texture (Corinna-wound Skin Appearance) Assessed Assessed -Moisture (Corinna-wound Skin Appearance) Assessed Assessed -Color (Corinna-wound Skin Appearance) Assessed Assessed -Temperature (Corinna-wound Skin No Abnormality No Abnormality Appearance) (Pt Warm) (Pt Warm) -Tenderness on Palpation (Corinna-wound No No Skin Appearance) -Ulcer Cleansing Wound Cleanser Wound Cleanser -Foul Odor after Cleansing No No -Anesthetic Used 5% Lidocaine 5% Lidocaine Gel Gel 6. L medial ankle -Combined with other wound No No -Current Size (cm) - Length 6 1.2 -Current Size (cm) - Width 1.4 1.6 -Current Size (cm) - Depth 1.8 0.1 -Total Square Cm 8.4 1.92 -Photo Taken Yes -Tunneling No No -Undermining/Tunneling No No -Circular Undermining No No -Exudate Amt Medium Medium -Exudate Type Serosanguineous Serosanguineous -Wound Margin Distinct, Distinct, Outline Outline Attached Attached -Granulation Amt Medium (34-66%) Medium (34-66%) -Granulation Quality Nikolski Nikolski -Slough/Fibrin Yes Yes -Necrosis Amt Medium (34-66%) Medium (34-66%) -Necrotic Tissue Type Adherent Slough Adherent Slough -Structure Exposed N/A N/A -Texture (Corinna-wound Skin Appearance) Assessed Assessed -Moisture (Corinna-wound Skin Appearance) Assessed Assessed -Color (Corinna-wound Skin Appearance) Assessed Assessed -Temperature (Corinna-wound Skin No Abnormality No Abnormality Appearance) (Pt Warm) (Pt Warm) -Tenderness on Palpation (Corinna-wound No No Skin Appearance) -Ulcer Cleansing Wound Cleanser Wound Cleanser -Foul Odor after Cleansing No No -Anesthetic Used 5% Lidocaine 5% Lidocaine Gel Gel Left Calf (cm) 35 Left Ankle (cm) 26 - Nurse 2 - General Ulcer CM Notes Start: 08/23/23 09:40 Freq: Status: Active Protocol: Activity Type Activity Date Activity User E-sign Co-sign Detail Recorded Client Recorded Date Recorded By Document 08/23/23 10:32 Laptop 08/23/23 10:38 Edit Result 08/23/23 10:32 (1) [id number] 08/23/23 10:42 Document 08/30/23 10:25 [id number] 08/30/23 10:26 (1) 6. L medial ankle - Bleeding Controlled with Pressure => Pressure,Silver => Nitrate 08/23/23 08/30/23 10:32 10:25 Wound Center Nurse 2 5. LLE post cluster -Correct Patient No -Correct Side, Site, Position No -Correct Procedure No -Procedure Performed No 7. L lateral ankle -Correct Patient No No -Correct Side, Site, Position No No -Correct Procedure No No -Procedure Performed No No -Wound/Ulcer Outcome Not Healed Not Healed -Ulcer Cleansing Rinsed/ Irrigated with Saline -Foul Odor after Cleansing No -Bioengineered Tissue No -Bleeding Controlled with Pressure -Treatment Response Procedure Tolerated Well -Offloading No -Debridement - Subq, 1st 20sq cm No -I&D / Paring / Biopsy I&D abscess - multiple or complicated 6. L medial ankle -Time 10:32 -Correct Patient Yes No -Correct Side, Site, Position Yes No -Correct Procedure Yes No -Procedure Performed Yes No -Type of Procedure Debridement -Clinical Debridement Subcutaneous -Tissue Removed Subcutaneous -Post Debridement (cm) - Length 5.0 -Post Debridement (cm) - Width 2.0 -Post Debridement (cm) - Depth 0.1 -Total Square (Post) (cm) 10.00 -Area of Debridement (cm) - Length 5.0 -Area of Debridement (cm) - Width 2.0 -Total Square (Area) (cm) 10.00 -Tunneling No -Undermining/Tunneling No -Circular Undermining No -Wound/Ulcer Outcome Not Healed -Ulcer Cleansing Rinsed/ Irrigated with Saline -Foul Odor after Cleansing No -Bioengineered Tissue No -Bleeding Controlled with Pressure,Silver Nitrate -Treatment Response Procedure Tolerated Well -Offloading Yes -Type of Offloading Total Contact Cast (TCC) - Left ($) -Debridement - Subq, 1st 20sq cm Yes -I&D / Paring / Biopsy I&D abscess - multiple or complicated Pain Scale: 0-10 Numeric Is Patient Pain Free? Yes Yes WC - Nurse 3 - General Ulcer D/C NN Start: 08/23/23 09:40 Freq: Status: Active Protocol: Activity Type Activity Date Activity User E-sign Co-sign Detail Recorded Client Recorded Date Recorded By Document 08/23/23 10:53 DL Desktop 08/23/23 10:56 DL Edit Result 08/23/23 10:53 DL (1) [id number] 08/23/23 11:13 JF (1) Notes: TCC applied per R Elba => TCC applied per R López Cline. Pins to foot heavily padded. 08/23/23 10:53 Wound Care Center Nurse 3 7. L lateral ankle -Ulcer Cleansing Soap and Water -Foul Odor after Cleansing No -Other Dressing dakins -Primary Dressing Covered/Secured with Dry Gauze & Roll Gauze, Secured with Tape -Other Covering TCC 6. L medial ankle -Ulcer Cleansing Rinsed/ Irrigated with Saline -Foul Odor after Cleansing No -Other Dressing dakin -Primary Dressing Covered/Secured with Dry Gauze & Roll Gauze, Secured with Tape -Other Covering TCC Treatment Response Procedure Tolerated Well Pain Scale: 0-10 Numeric Is Patient Pain Free? Yes WC - Visit Discharge Discharge Condition Stable Ambulatory Status Walker Transportation Private Auto Accompanied by family Notes: TCC applied per Elena Cline. Pins to foot heavily padded . Assessment/Plan Assessment/Plan (1) Type 2 diabetes mellitus with diabetic polyneuropathy: CODE(S): E11.42 - Type 2 diabetes mellitus with diabetic polyneuropathy QUALIFIERS: Diabetes mellitus correction insulin use: without correction use Qualified Code(s): E11.42 - Type 2 diabetes mellitus with diabetic polyneuropathy PLAN: Exam performed Radiographs of left foot and ankle reviewed. Normal alignment noted. No obvious or tarun osteomyelitis noted. Today clinically there is noted to be a complicated abscess to the left lateral ankle incisional site. After obtaining oral consent a incision and drainage was performed of the left lateral ankle abscess: Surgeon: Jordi Perkins D.P.M. Anesthesia: None due to neuropathy Preoperative diagnosis: Left ankle abscess Postoperative diagnosis: Same Procedure: Incision and drainage complicated abscess left lower extremity Washtub Worker: None Procedure: Using sterile hemostats the left lateral ankle incision was opened up and exposed to allow for drainage of purulence. 15 cc of purulent drainage was expressed from the site. Site flushed with copious amounts normal sterile saline. Swab cultures taken. Left lateral ankle incision was packed with quarter inch iodoform dressing. All other sites were dressed including the left medial ankle wound and incisional site with Betadine dry sterile dressing. At this time we will plan for hospital admission for IV antibiotics and incision and drainage of abscess to left lower extremity. Would likely recommend ID consultation to assist antibiotic management Will continue to follow closely (2) Type 2 diabetes mellitus with diabetic polyneuropathy: CODE(S): E11.42 - Type 2 diabetes mellitus with diabetic polyneuropathy QUALIFIERS: Diabetes mellitus terminal system operator insulin use: without correction use Qualified Code(s): E11.42 - Type 2 diabetes mellitus with diabetic polyneuropathy (3) Non-pressure chronic ulcer of left 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: CODE(S): L97.322 - Non-pressure chronic ulcer of left 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 (4) Cellulitis of left lower limb: CODE(S): L03.116 - Cellulitis of left lower limb (5) Abscess of bursa, left ankle and foot: CODE(S): M71.072 - Abscess of bursa, left ankle and foot
[2023-09-06 09:57] VITALS: BP 128/72; PULSE 91; RESP 18; TEMP 36.1; BMI 33.9
--- NOTE | 2023-09-06 10:35 | PN.PCM_ITS ---
History of Present Illness Date of Service: 09/06/23 Chief Complaint: Diabetic left foot infection with gas gangrene and osteom yelitis. History of Wound: 43-year-old male status post left ankle incision and drainage of abscess on 09/01/2023. Patient had abscess and osteomyelitis growing Enterococcus and Pseudomonas. Patient follow-up today. Denies constitutional symptoms. Patient has PICC line receiving meropenem 3 times a day for the next 6 weeks. Patient has home health care. No other complaints. Objective Data Objective Data Vital Signs: Vital Signs Temp Pulse Resp BP O2 Del Method O2 Flow Rate 96.9 F L 91 18 128/72 H Room Air 99 09/06/23 09:57 09/06/23 09:57 09/06/23 09:57 09/06/23 09:57 08/30/23 09:34 09/06/23 09:57 Oxygen Flow Rate (L/min) 99 Oxygen Delivery Method Room Air Weight: 113.398 kg Body Mass Index (BMI) 33.9 Lab / Micro Data Micro: Microbiology 08/30/23 10:11 Wound - Ankle Gram Stain - Final 08/30/23 10:11 Wound - Ankle Wound Culture - Final Enterococcus faecalis 08/30/23 10:11 Wound - Ankle Anaerobic Culture - Final No growth in 5 days. Physical Exam Narrative Neurovascular status unchanged Full-thickness wounds to medial ankle healing well stable granular base no signs of infection. Lateral ankle wound down to the level of bone noted with intact vessel loop closure allowing for partial wound closure. There is a residual wound. Pre and postdebridement measurements documented in notes nursing notes. This was debrided down to level of muscle today. No residual abscess noted. Resolved acute signs of infection. No signs of DVT. Debridement Note Debridement Note Post-Debridement Measurements and Additional Note: Post-Debridement Measurements/Treatment MARY - Nurse 1 - General Ulcer Assessment Start: 08/23/23 09:40 Freq: Status: Active Protocol: GWEN Activity Type Activity Date Activity User E-sign Co-sign Detail Recorded Client Recorded Date Recorded By Document 08/23/23 09:41 RB Desktop 08/23/23 10:02 RB Document 08/30/23 09:34 GM Desktop 08/30/23 09:50 GM Document 09/06/23 09:57 RB Desktop 01/30/24 10:16 RB 08/23/23 08/30/23 09/06/23 09:41 09:34 09:57 WC - Today's Visit Information Type of service Initial Visit Follow-up Visit Follow-up Visit (Physician/INSTRUCTOR PHYSICAL EDUCATION (Physician/INSTRUCTOR PHYSICAL EDUCATION ) ) Arrival Mode Wheelchair Ambulatory Wheelchair Transfer Assistance Manual None None Patient Identification Verified (Name & Yes Yes Yes ) Patient Requires Transmission-Based No No Precautions Finger Stick Blood Sugar(mg/dl) (if 103 112 indicated): Blood Sugar Stated by Stated by Patient Patient Height and Weight Height 6 ft Weight 113.398 kg Weight in Pounds 250.0 lbs Body Mass Index (BMI) 33.9 33.9 33.9 BMI Classification Obese Obese Obese BSA - Johnnie 2.34 Vital Signs Temperature (97.8 F-99.1 F) 97.8 F 96.6 F L 96.9 F L Temperature Source Temporal Temporal Temporal Pulse Rate (60-100) 98 95 91 Pulse Location Monitor Monitor Monitor Respiratory Rate (12-18) 18 16 18 Respiratory rate source Observation Observation Observation Oxygen Delivery Method Room Air O2 L/MIN (L/min) 99 Blood Pressure (90/60-120/80) 154/80 H 145/75 H 128/72 H Blood Pressure Mean (mm Hg) 104 98 90 Source Monitor Monitor Monitor Position Semi-Fowlers Sitting Sitting Blood Pressure Location Left Arm Left Arm Right Arm History Since Last Visit- (Skip if this is Patient's initial visit) Have you changed medications since your No Yes last visit? Any new allergies or adverse reactions No No Had a fall/change in ADL's that may No No increase risk of falls Signs or symptoms of abuse and/or No No neglect since last visit Have you been in the hospital since your No Yes last visit? Has dressing in place as prescribed Yes Yes Has compression in place as prescribed Yes Yes Has offloadiing in place as prescribed Yes Yes Experienced any changes in pain level or No No management Left Footwear No Footwear Total Contact Cast Right Footwear Diabetic Shoe Pain Scale: 0-10 Numeric Is Patient Pain Free? No Yes Yes - Nurse 1 - General Ulcer Measurement Start: 08/23/23 09:40 Freq: Status: Active Protocol: Activity Type Activity Date Activity User E-sign Co-sign Detail Recorded Client Recorded Date Recorded By Document 08/23/23 09:41 RB Desktop 08/23/23 10:02 RB Document 08/30/23 09:34 GM Desktop 08/30/23 09:50 GM Document 09/06/23 09:57 RB Desktop 09/06/23 10:16 RB 08/23/23 08/30/23 09/06/23 09:41 09:34 09:57 Wound Center Nurse 1 5. LLE post cluster -Combined with other wound No -Current Size (cm) - Length 4.2 -Current Size (cm) - Width 2.3 -Current Size (cm) - Depth 0.1 -Total Square Cm 9.66 4. L plantar -Combined with other wound No -Current Size (cm) - Length 2 -Current Size (cm) - Width 0.2 -Current Size (cm) - Depth 0.2 -Total Square Cm 0.4 -Photo Taken Yes -Tunneling No -Undermining/Tunneling No -Circular Undermining No -Exudate Amt Medium -Exudate Type Serosanguineous -Wound Margin Distinct, Outline Attached -Granulation Amt Medium (34-66%) -Granulation Quality [place] -Slough/Fibrin Yes -Necrosis Amt Medium (34-66%) -Necrotic Tissue Type Adherent Slough -Structure Exposed N/A -Texture ([place]-wound Skin Appearance) Assessed -Moisture ([place]-wound Skin Appearance) Assessed -Color ([place]-wound Skin Appearance) Assessed -Temperature ([place]-wound Skin No Abnormality Appearance) (Pt Warm) -Tenderness on Palpation ([place]-wound No Skin Appearance) -Ulcer Cleansing Wound Cleanser -Foul Odor after Cleansing No -Anesthetic Used 5% Lidocaine Gel 7. L lateral ankle -Combined with other wound No No -Current Size (cm) - Length 0.2 0.3 5.5 -Current Size (cm) - Width 1.8 1.5 1 -Current Size (cm) - Depth 0.4 0.2 1.9 -Total Square Cm 0.36 0.45 5.5 -Photo Taken Yes Yes -Tunneling No No No -Undermining/Tunneling No No Yes -Undermining/Tunneling Starts (O'clock 5 ) -Undermining/Tunneling Ends (O'clock) 6 -Maximum Distance (cm) 2 -Circular Undermining No No -Exudate Amt Medium Medium Large -Exudate Type Serosanguineous Purulent Serosanguineous -Wound Margin Distinct, Distinct, Thickened & Outline Outline Rolled Under Attached Attached -Granulation Amt Medium (34-66%) Medium (34-66%) Medium (34-66%) -Granulation Quality [place] -Slough/Fibrin Yes Yes Yes -Necrosis Amt Medium (34-66%) Medium (34-66%) Medium (34-66%) -Necrotic Tissue Type Adherent Slough Adherent Slough Adherent Slough -Structure Exposed N/A N/A N/A -Texture ([place]-wound Skin Appearance) Assessed Assessed Assessed -Moisture ([place]-wound Skin Appearance) Assessed Assessed Assessed,Dry/ Scaly -Color ([place]-wound Skin Appearance) Assessed Assessed Assessed -Temperature ([place]-wound Skin No Abnormality No Abnormality No Abnormality Appearance) (Pt Warm) (Pt Warm) (Pt Warm) -Tenderness on Palpation ([place]-wound No No No Skin Appearance) -Ulcer Cleansing Wound Cleanser Wound Cleanser Wound Cleanser -Foul Odor after Cleansing No No No -Anesthetic Used 5% Lidocaine 5% Lidocaine Gel Gel -Wound Comment(s) 16 robinson noted and red suture intertwined with robinson 6. L medial ankle -Combined with other wound No No -Current Size (cm) - Length 6 1.2 2.4 -Current Size (cm) - Width 1.4 1.6 0.7 -Current Size (cm) - Depth 1.8 0.1 0.5 -Total Square Cm 8.4 1.92 1.68 -Photo Taken Yes Yes -Tunneling No No No -Undermining/Tunneling No No No -Circular Undermining No No No -Exudate Amt Medium Medium Medium -Exudate Type Serosanguineous Serosanguineous Serosanguineous -Wound Margin Distinct, Distinct, Distinct, Outline Outline Outline Attached Attached Attached -Granulation Amt Medium (34-66%) Medium (34-66%) Medium (34-66%) -Granulation Quality [place] -Slough/Fibrin Yes Yes Yes -Necrosis Amt Medium (34-66%) Medium (34-66%) Medium (34-66%) -Necrotic Tissue Type Adherent Slough Adherent Slough Adherent Slough -Structure Exposed N/A N/A N/A -Texture ([place]-wound Skin Appearance) Assessed Assessed Assessed -Moisture ([place]-wound Skin Appearance) Assessed Assessed Assessed,Dry/ Scaly -Color ([place]-wound Skin Appearance) Assessed Assessed -Temperature ([place]-wound Skin No Abnormality No Abnormality No Abnormality Appearance) (Pt Warm) (Pt Warm) (Pt Warm) -Tenderness on Palpation ([place]-wound No No No Skin Appearance) -Ulcer Cleansing Wound Cleanser Wound Cleanser Wound Cleanser -Foul Odor after Cleansing No No No -Anesthetic Used 5% Lidocaine 5% Lidocaine Gel Gel Left Calf (cm) 35 Left Ankle (cm) 26 WC - Nurse 2 - General Ulcer CM Notes Start: 08/23/23 09:40 Freq: Status: Active Protocol: Activity Type Activity Date Activity User E-sign Co-sign Detail Recorded Client Recorded Date Recorded By Document 08/23/23 10:32 Laptop 08/23/23 10:38 Edit Result 08/23/23 10:32 (1) [id number] 08/23/23 10:42 Document 08/30/23 10:25 [id number] 08/30/23 10:26 Document 09/06/23 10:29 Laptop 09/06/23 10:32 (1) 6. L medial ankle - Bleeding Controlled with Pressure => Pressure,Silver => Nitrate 08/23/23 08/30/23 09/06/23 10:32 10:25 10:29 Wound Center Nurse 2 5. LLE post cluster -Correct Patient No -Correct Side, Site, Position No -Correct Procedure No -Procedure Performed No 7. L lateral ankle -Time 10:31 -Correct Patient No No Yes -Correct Side, Site, Position No No Yes -Correct Procedure No No Yes -Procedure Performed No No Yes -Type of Procedure Debridement -Clinical Debridement Muscle / Fascia -Tissue Removed Muscle,Fascia -Post Debridement (cm) - Length 5.8 -Post Debridement (cm) - Width 1.0 -Post Debridement (cm) - Depth 3.5 -Total Square (Post) (cm) 5.80 -Area of Debridement (cm) - Length 5.8 -Area of Debridement (cm) - Width 1.0 -Total Square (Area) (cm) 5.80 -Tunneling No -Undermining/Tunneling No -Circular Undermining No -Wound/Ulcer Outcome Not Healed Not Healed Not Healed -Ulcer Cleansing Rinsed/ Rinsed/ Irrigated with Irrigated with Saline Saline -Foul Odor after Cleansing No No -Bioengineered Tissue No No -Bleeding Controlled with Pressure Pressure -Treatment Response Procedure Procedure Tolerated Well Tolerated Well -Offloading No No -Assistive Device(s) Wheelchair -Debridement - Subq, 1st 20sq cm No -Debridement - Muscle / Fascia, 1st Yes 20sq cm -I&D / Paring / Biopsy I&D abscess - multiple or complicated 6. L medial ankle -Time 10:32 -Correct Patient Yes No No -Correct Side, Site, Position Yes No No -Correct Procedure Yes No No -Procedure Performed Yes No No -Type of Procedure Debridement -Clinical Debridement Subcutaneous -Tissue Removed Subcutaneous -Post Debridement (cm) - Length 5.0 -Post Debridement (cm) - Width 2.0 -Post Debridement (cm) - Depth 0.1 -Total Square (Post) (cm) 10.00 -Area of Debridement (cm) - Length 5.0 -Area of Debridement (cm) - Width 2.0 -Total Square (Area) (cm) 10.00 -Tunneling No -Undermining/Tunneling No -Circular Undermining No -Wound/Ulcer Outcome Not Healed Not Healed -Ulcer Cleansing Rinsed/ Irrigated with Saline -Foul Odor after Cleansing No -Bioengineered Tissue No -Bleeding Controlled with Pressure,Silver Nitrate -Treatment Response Procedure Tolerated Well -Offloading Yes -Type of Offloading Total Contact Cast (TCC) - Left ($) -Debridement - Subq, 1st 20sq cm Yes -I&D / Paring / Biopsy I&D abscess - multiple or complicated Pain Scale: 0-10 Numeric Is Patient Pain Free? Yes Yes Yes WC - Nurse 3 - General Ulcer D/C NN Start: 08/23/23 09:40 Freq: Status: Active Protocol: Activity Type Activity Date Activity User E-sign Co-sign Detail Recorded Client Recorded Date Recorded By Document 08/23/23 10:53 DL Desktop 08/23/23 10:56 DL Edit Result 08/23/23 10:53 DL (1) [id number] 08/23/23 11:13 JF Document 08/30/23 10:42 RB Desktop 08/30/23 10:44 RB (1) Notes: TCC applied per R Elba => TCC applied per R López Cline. Pins to foot heavily padded. 08/23/23 08/30/23 10:53 10:42 Wound Care Center Nurse 3 7. L lateral ankle -Ulcer Cleansing Soap and Water betadine -Foul Odor after Cleansing No -Primary Dressing Applied Nugauze, Iodoform 1/2in -Other Dressing dakins abd -Primary Dressing Covered/Secured with Dry Gauze & Dry Gauze,Dry Roll Gauze, Gauze & Roll Secured with Gauze,Secured Tape with Tape -Other Covering TCC -Nugauze, Iodoform 1/2in 1 6. L medial ankle -Ulcer Cleansing Rinsed/ betadine Irrigated with Saline -Foul Odor after Cleansing No -Other Dressing dakin abd / kerlix/ martha -Primary Dressing Covered/Secured with Dry Gauze & Dry Gauze,Dry Roll Gauze, Gauze & Roll Secured with Gauze,Secured Tape with Tape -Other Covering TCC Treatment Response Procedure Procedure Tolerated Well Tolerated Well Pain Scale: 0-10 Numeric Is Patient Pain Free? Yes Yes Teaching: Wound Center Dressing Your Wound -Person Taught Patient,Family -Teaching Method Discussion, Demonstration -Response to teaching Verbalize understanding WC - Visit Discharge Discharge Condition Stable Stable Ambulatory Status Walker Ambulatory Transportation Private Auto Private Auto Accompanied by family Medication Reconcilliation completed & No provided to patient/care provider Clinical Summary of Care Provided Yes Notes: TCC applied per Elena Cline. Pins to foot heavily padded . Assessment/Plan Assessment/Plan (1) Osteomyelitis of ankle, left, acute: CODE(S): M86.172 - Other acute osteomyelitis, left ankle and foot PLAN: Exam performed Patient on IV meropenem via PICC line per infectious disease for enterococcal and pseudomonal infection left lower extremity with bone involvement Patient is status post Charcot reconstruction. This is a limb salvage case Today left lower extremity wound to lateral ankle was debrided down to and including level of muscle excisionally using a 5 mm dermal curette without incident. No anesthesia due to neuropathy. Hemostasis obtained with light compression. Patient tolerated procedure well. Pre and postdebridement measurements documented nursing notes. Patient will receive 3 times a week wound packing with Dakin's wet-to-dry and overlying multilayer compression wrap. Wound dressing in the wound care center followed by 2 dressings to performed by home health care Patient follows up weekly Patient nonweightbearing left lower extremity Blood sugar well-controlled (2) Charcot foot due to diabetes mellitus: CODE(S): E11.610 - 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 arthropathy (3) Abscess of bursa, left ankle and foot: CODE(S): M71.072 - Abscess of bursa, left ankle and foot (4) Cellulitis of left lower limb: CODE(S): L03.116 - Cellulitis of left lower limb (5) Non-pressure chronic ulcer of left 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: CODE(S): L97.322 - Non-pressure chronic ulcer of left 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 (6) Type 2 diabetes mellitus with diabetic polyneuropathy: CODE(S): E11.42 - Type 2 diabetes mellitus with diabetic polyneuropathy QUALIFIERS: Diabetes mellitus ad terminal makeup operator insulin use: without nursing home use Qualified Code(s): E11.42 - Type 2 diabetes mellitus with diabetic polyneuropathy
== END 2023-09-07 23:59 | disposition home or self-care (01) ==
LOC: WC 10:00
PROVIDERS: PCP Student in an Organized Health Care Education/Training Program; Referring Provider Podiatrist; Visit Provider Podiatrist
DX: E11.621 Type 2 diabetes mellitus with foot ulcer (principal); E11.52 Type 2 diabetes mellitus with diabetic peripheral angiopathy with gangrene; A48.0 Gas gangrene; E11.622 Type 2 diabetes mellitus with other skin ulcer; L97.522 Non-pressure chronic ulcer of other part of left foot with fat layer exposed; L97.322 Non-pressure chronic ulcer of left 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; M86.8X7 Other osteomyelitis, ankle and foot; E11.69 Type 2 diabetes mellitus with other specified complication; E11.42 Type 2 diabetes mellitus with diabetic polyneuropathy; B96.5 Pseudomonas (aeruginosa) (mallei) (pseudomallei) as the cause of diseases classified elsewhere; M71.072 Abscess of bursa, left ankle and foot; B95.2 Enterococcus as the cause of diseases classified elsewhere; L03.116 Cellulitis of left lower limb
CPT/HCPCS: 10061; 11042; 11043; 29445; 29581; 73610; 73630; 87070; 87075; 87077; 87186; 87205; 99214; G0463

== ENCOUNTER → 2023-09-08 | Outpatient (CLI) | payer BC, SELFPAY ==
[2023-09-08 12:31] LABS: Erythrocyte Sedimentation Rate 35 mm/hr (0-20)
[2023-09-08 12:32] LABS: Hematocrit 36.3 % (40-54); Hemoglobin 10.8 g/dL (13.0-16.5); Mean Corp Hgb Conc 29.8 g/dL (32-36); Mean Corpuscular Hgb 23.6 pg (27.0-32.0); Mean Corpuscular Volume 79.3 fL (80-94); Mean Platelet Vol. 9.8 fl (6.2-12.0); Platelet Count 298 K/mm3 (150-450); RBC Distribution Width SD 40.2 fl (35.1-43.9); Red Blood Count 4.58 M/mm3 (4.6-6.2); White Blood Count 4.1 K/mm3 (4.4-11.0)
[2023-09-08 12:49] LABS: AST(SGOT) 41 U/L (15-37); Alanine Aminotransfer ALT/SGPT 41 U/L (16-61); Albumin, Serum 3.4 g/dL (3.2-5.0); Alkaline Phosphatase 88 U/L (45-117); Anion Gap 4 (5-15); BUN 16 mg/dL (7-18); BUN/Creat Ratio 20.8 RATIO (10-20); Bilirubin, Direct 0.09 mg/dL (0.00-0.30); Calcium,Total 9.2 mg/dL (8.5-10.1); Chloride 104 mmol/L (98-107); Creatinine, Serum 0.77 mg/dL (0.70-1.30); EST Glomerular Filtration Rate 118 mL/min (>60); Est Glom Filt Rate - Afr Amer 143 mL/min (>60); Globulin 3.7 g/dL (2.2-4.2); Glucose 90 mg/dL (74-106); Potassium 3.9 mmol/L (3.5-5.1); Protein, Total 7.1 g/dL (6.4-8.2); Sodium Level 135 mmol/L (136-145)
== END | disposition home or self-care (01) ==
LOC: LABSPEC 12:06
PROVIDERS: PCP Student in an Organized Health Care Education/Training Program; Referring Provider Internal Medicine Infectious Disease; Visit Provider Internal Medicine Infectious Disease
DX: M86.9 Osteomyelitis, unspecified (principal)
CPT/HCPCS: 80048; 80076; 85027; 85652

== ENCOUNTER 2023-09-15 11:40 | Outpatient (RCR) | payer BC, SELFPAY ==
[2023-09-15 12:33] LABS: Hematocrit 36.2 % (40-54); Mean Corp Hgb Conc 30.4 g/dL (32-36); Mean Corpuscular Hgb 23.3 pg (27.0-32.0); Mean Corpuscular Volume 76.5 fL (80-94); Mean Platelet Vol. 10.1 fl (6.2-12.0); Platelet Count 343 K/mm3 (150-450); RBC Distribution Width CV 13.8 % (11.6-14.6); RBC Distribution Width SD 38.7 fl (35.1-43.9); Red Blood Count 4.73 M/mm3 (4.6-6.2); White Blood Count 4.4 K/mm3 (4.4-11.0)
[2023-09-15 13:06] LABS: Erythrocyte Sedimentation Rate 37 mm/hr (0-20)
[2023-09-15 13:59] LABS: AST(SGOT) 25 U/L (15-37); Alanine Aminotransfer ALT/SGPT 37 U/L (16-61); Albumin, Serum 3.6 g/dL (3.2-5.0); Alkaline Phosphatase 100 U/L (45-117); Anion Gap 4 (5-15); BUN 17 mg/dL (7-18); BUN/Creat Ratio 22.7 RATIO (10-20); Bilirubin, Direct 0.15 mg/dL (0.00-0.30); Calcium,Total 9.5 mg/dL (8.5-10.1); Chloride 104 mmol/L (98-107); Creatinine, Serum 0.75 mg/dL (0.70-1.30); EST Glomerular Filtration Rate 122 mL/min (>60); Est Glom Filt Rate - Afr Amer 147 mL/min (>60); Globulin 3.7 g/dL (2.2-4.2); Glucose 93 mg/dL (74-106); Potassium 4.2 mmol/L (3.5-5.1); Protein, Total 7.3 g/dL (6.4-8.2); Sodium Level 137 mmol/L (136-145)
== END 2023-10-06 18:00 | disposition home or self-care (01) ==
LOC: HHLAB 11:40
PROVIDERS: PCP Student in an Organized Health Care Education/Training Program; Referring Provider Internal Medicine Infectious Disease; Visit Provider Internal Medicine Infectious Disease
DX: M86.179 Other acute osteomyelitis, unspecified ankle and foot (principal)
CPT/HCPCS: 80048; 80076; 85027; 85652

== ENCOUNTER 2023-10-06 10:55 | Outpatient (RCR) | payer BC, SELFPAY ==
[2023-09-22 11:12] LABS: AST(SGOT) 21 U/L (15-37); Alanine Aminotransfer ALT/SGPT 31 U/L (16-61); Albumin, Serum 3.4 g/dL (3.2-5.0); Alkaline Phosphatase 108 U/L (45-117); Anion Gap 2 (5-15); BUN 17 mg/dL (7-18); BUN/Creat Ratio 21.9 RATIO (10-20); Bilirubin, Direct 0.09 mg/dL (0.00-0.30); Calcium,Total 9.5 mg/dL (8.5-10.1); Chloride 107 mmol/L (98-107); Creatinine, Serum 0.78 mg/dL (0.70-1.30); EST Glomerular Filtration Rate 117 mL/min (>60); Est Glom Filt Rate - Afr Amer 142 mL/min (>60); Globulin 3.7 g/dL (2.2-4.2); Glucose 102 mg/dL (74-106); Potassium 4.1 mmol/L (3.5-5.1); Protein, Total 7.1 g/dL (6.4-8.2); Sodium Level 140 mmol/L (136-145)
[2023-09-22 11:15] LABS: Erythrocyte Sedimentation Rate 32 mm/hr (0-20)
[2023-09-22 11:17] LABS: Hematocrit 36.4 % (40-54); Hemoglobin 10.7 g/dL (13.0-16.5); Mean Corp Hgb Conc 29.4 g/dL (32-36); Mean Corpuscular Hgb 22.7 pg (27.0-32.0); Mean Corpuscular Volume 77.1 fL (80-94); Mean Platelet Vol. 10.3 fl (6.2-12.0); Platelet Count 327 K/mm3 (150-450); RBC Distribution Width CV 14.3 % (11.6-14.6); RBC Distribution Width SD 39.8 fl (35.1-43.9); Red Blood Count 4.72 M/mm3 (4.6-6.2); White Blood Count 5.2 K/mm3 (4.4-11.0)
--- NOTE | 2023-09-22 12:43 | PCM.HBO.PN ---
History of Present Illness Date of Service: 09/22/23 Chief Complaint: Diabetic left foot infection with gas gangrene and osteomyelitis; Li grade 3 diabetic foot infection. History of Wound: This is a 43-year-old male with a history of diabetic foot pathology and infections. On July 15, 2023, the patient underwent reconstruction of the left Charcot foot deformity by means of a left ankle arthrodesis, subtalar joint arthrodesis, midfoot osteotomy with percutaneous pinning, and application of the left lower extremity splint. He subsequently developed left foot and ankle abscess, with full-thickness wounds and osteomyelitis of the left ankle. On September 01, 2023, he underwent incision and drainage of an abscess down to bone, and wound site debridement and wound bed preparation for delayed skin graft application. With respect to his osteomyelitis, the patient is receiving meropenem 3 times daily intravenously for Enterococcus and Pseudomonas infection by means of a PICC line which is located in his left upper arm. He is receiving home health care. Wound care is by means of packing with Dakin's moist to dry dressings, as his surgical wound is only partially closed. A multilayer compression wrap is being used to minimize swelling. The patient is nonweightbearing. He is felt to be in a limb threatening situation, and was referred for evaluation as a prelude to implementing hyperbaric oxygen therapy for Li grade 3 diabetic foot wound with osteomyelitis. A thorough review of systems was undertaken. The patient has no history of pulmonary or otitic barotrauma. In fact, he has previously undergone hyperbaric oxygen therapy sessions in the past, approximately 10 years ago, for diabetic right foot infection. He tolerated hyperbaric oxygen therapy well at that time without incident. 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 His history is negative for seizures and seizure disorder. Pulmonary history is negative. Cardiac history is negative. The patient has no history of renal disease. He has no history of anemia or other hemopoietic abnormalities. There is no history of endocrine problems. He is not a smoker. Recent x-ray reveals moderate lung volumes. Increased AP dimension of the chest. Subsegmental atelectasis suggested in the left lung base. No definite inflammatory infiltrates. No effusions. Mild cardiac enlargement. Normal mediastinum and michelle. Normal visualized pulmonary arteries. Normal visualized aortic arch and descending thoracic aorta. An EKG reveals normal sinus rhythm and is interpreted as a normal EKG. Laboratory results have been reviewed, without any outstanding significant abnormalities. Subjective Subjective The patient presented for his 5th hyperbaric oxygen session today. The patient is scheduled for 30 such sessions. Tolerance of hyperbaric oxygen therapy: Hyperbaric oxygen therapy was provided as per the facility's protocol. Hyperbaric oxygen therapy was undertaken at 2 krzysztof and 100% oxygen for 90 minutes without air breaks. The patient tolerated hyperbaric oxygen therapy well, without complications or complaints. Upon emergence from the hyperbaric chamber, the patient's vital signs remained stable. Blood sugar levels were monitored, and found to be satisfactory. Objective Data Lab / Micro Data 09/22/23 09:00 09/22/23 09:00 Labs: Laboratory Results - last 24 hr 09/22/23 09:00: WBC 5.2, RBC 4.72, Hgb 10.7 L, Hct 36.4 L, MCV 77.1 L, MCH 22.7 L, MCHC 29.4 L, RDW Std Deviation 39.8, RDW Coeff of Venita 14.3, Plt Count 327, MPV 10.3, ESR 32 H, Sodium 140, Potassium 4.1, Chloride 107, Carbon Dioxide 31.0, Anion Gap 2 L, BUN 17, Creatinine 0.78, Est GFR (MDRD) Af Amer 142, Est GFR (MDRD) Non-Af 117, BUN/Creatinine Ratio 21.9 H, Glucose 102, Calcium 9.5, Total Bilirubin 0.30, Direct Bilirubin 0.09, AST 21, ALT 31, Alkaline Phosphatase 108, Total Protein 7.1, Albumin 3.4, Globulin 3.7 Exam Physical Exam Const alert General Appearance: cooperative HEENT normocephalic Chest inspection of chest normal Resp normal respiratory effort and normal air movement Effort and Inspection: able to speak in complete sentences; Negative for respiratory distress Cardio regular rate and regular rhythm Neuro Speech: speech normal Assessment/Plan Assessment/Plan (1) Osteomyelitis of ankle or foot, left, acute: CODE(S): M86.172 - Other acute osteomyelitis, left ankle and foot (2) Osteomyelitis of ankle, left, acute: CODE(S): M86.172 - Other acute osteomyelitis, left ankle and foot (3) Abscess of bursa, left ankle and foot: CODE(S): M71.072 - Abscess of bursa, left ankle and foot (4) Cellulitis of left lower limb: CODE(S): L03.116 - Cellulitis of left lower limb (5) Charcot foot due to diabetes mellitus: CODE(S): E11.610 - 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 arthropathy (6) Non-pressure chronic ulcer of left 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: CODE(S): L97.322 - Non-pressure chronic ulcer of left 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 (7) Other acute postprocedural pain: CODE(S): G89.18 - Other acute postprocedural pain (8) Type 2 diabetes mellitus with diabetic polyneuropathy: CODE(S): E11.42 - Type 2 diabetes mellitus with diabetic polyneuropathy QUALIFIERS: Diabetes mellitus halfway insulin use: without coordinator skill training program use Qualified Code(s): E11.42 - Type 2 diabetes mellitus with diabetic polyneuropathy (9) 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 muscle: CODE(S): L97.523 - 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 muscle (10) Gas gangrene of foot: CODE(S): A48.0 - Gas gangrene (11) Diabetic infection of left foot: CODE(S): E11.628 - Type 2 diabetes mellitus with other skin complications; L08.9 - Local infection of the skin and subcutaneous tissue, unspecified (12) 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 bone: CODE(S): L97.524 - 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 bone (13) 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 muscle: CODE(S): L97.523 - 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 muscle (14) Cellulitis: CODE(S): L03.90 - Cellulitis, unspecified QUALIFIERS: Site of cellulitis: extremity Site of cellulitis of extremity: lower extremity Laterality: left Qualified Code(s): L03.116 - Cellulitis of left lower limb (15) Hypertension: CODE(S): I10 - Essential (primary) hypertension QUALIFIERS: Hypertension type: primary hypertension Qualified Code(s): I10 - Essential (primary) hypertension PLAN: Plan The patient appears to be tolerating hyperbaric oxygen therapy well, which will be continued as per their medical treatment plan.
[2023-09-29 12:31] LABS: Erythrocyte Sedimentation Rate 38 mm/hr (0-20)
[2023-09-29 12:33] LABS: Hemoglobin 10.8 g/dL (13.0-16.5); Mean Corpuscular Hgb 22.8 pg (27.0-32.0); Mean Corpuscular Volume 76.1 fL (80-94); Mean Platelet Vol. 10.7 fl (6.2-12.0); Platelet Count 273 K/mm3 (150-450); RBC Distribution Width CV 14.4 % (11.6-14.6); RBC Distribution Width SD 39.2 fl (35.1-43.9); Red Blood Count 4.73 M/mm3 (4.6-6.2); White Blood Count 4.7 K/mm3 (4.4-11.0)
[2023-09-29 12:38] LABS: AST(SGOT) 24 U/L (15-37); Alanine Aminotransfer ALT/SGPT 34 U/L (16-61); Albumin, Serum 3.2 g/dL (3.2-5.0); Alkaline Phosphatase 124 U/L (45-117); Anion Gap 1 (5-15); BUN 21 mg/dL (7-18); BUN/Creat Ratio 24.1 RATIO (10-20); Calcium,Total 9.6 mg/dL (8.5-10.1); Chloride 106 mmol/L (98-107); Creatinine, Serum 0.87 mg/dL (0.70-1.30); EST Glomerular Filtration Rate 102 mL/min (>60); Est Glom Filt Rate - Afr Amer 124 mL/min (>60); Globulin 3.9 g/dL (2.2-4.2); Glucose 172 mg/dL (74-106); Potassium 4.2 mmol/L (3.5-5.1); Protein, Total 7.1 g/dL (6.4-8.2); Sodium Level 138 mmol/L (136-145)
[2023-10-06 11:21] LABS: Hematocrit 37.3 % (40-54); Hemoglobin 11.4 g/dL (13.0-16.5); Mean Corp Hgb Conc 30.6 g/dL (32-36); Mean Corpuscular Hgb 23.2 pg (27.0-32.0); Mean Corpuscular Volume 75.8 fL (80-94); Mean Platelet Vol. 10.3 fl (6.2-12.0); Platelet Count 261 K/mm3 (150-450); RBC Distribution Width CV 14.9 % (11.6-14.6); RBC Distribution Width SD 40.7 fl (35.1-43.9); Red Blood Count 4.92 M/mm3 (4.6-6.2); White Blood Count 4.7 K/mm3 (4.4-11.0)
[2023-10-06 12:05] LABS: AST(SGOT) 26 U/L (15-37); Alanine Aminotransfer ALT/SGPT 40 U/L (16-61); Albumin, Serum 3.3 g/dL (3.2-5.0); Alkaline Phosphatase 123 U/L (45-117); Anion Gap 4 (5-15); BUN 19 mg/dL (7-18); Bilirubin, Direct 0.11 mg/dL (0.00-0.30); Calcium,Total 9.3 mg/dL (8.5-10.1); Chloride 106 mmol/L (98-107); Creatinine, Serum 0.83 mg/dL (0.70-1.30); EST Glomerular Filtration Rate 109 mL/min (>60); Est Glom Filt Rate - Afr Amer 132 mL/min (>60); Glucose 103 mg/dL (74-106); Potassium 4.3 mmol/L (3.5-5.1); Protein, Total 7.3 g/dL (6.4-8.2); Sodium Level 139 mmol/L (136-145)
[2023-10-06 12:46] LABS: Erythrocyte Sedimentation Rate 50 mm/hr (0-20)
== END 2023-10-06 18:00 | disposition home or self-care (01) ==
LOC: HHLAB 10:55
PROVIDERS: PCP Student in an Organized Health Care Education/Training Program; Referring Provider Internal Medicine Infectious Disease; Visit Provider Internal Medicine Infectious Disease
DX: M86.179 Other acute osteomyelitis, unspecified ankle and foot (principal)
CPT/HCPCS: 80048; 80076; 85027; 85652

== ENCOUNTER 2023-10-06 13:00 | Outpatient (RCR) | payer BC, SELFPAY ==
[2023-09-08 00:33] VITALS: BP 128/72; PULSE 91; RESP 18; TEMP 36.1; BMI 33.9
--- NOTE | 2023-09-08 10:25 | RAD_ITS ---
STUDY: X-RAY - LEFT FOOT CLINICAL: Male, 43 years old. WOUND TECHNIQUE: 3 view(s) of the foot. COMPARISON: 08/25/2023 FINDINGS: Status post tibiotalar and hindfoot arthrodesis with an intramedullary vance and screws. Interval removal of the 2 Nimco wires from the mid foot. Postsurgical changes and sclerosis of the bones of the midfoot consistent with Charcot foot. No obvious bony destruction to suggest osteomyelitis. Healed fractures of the metatarsal bones. Normal metatarsophalangeal joint of the great toe. Normal tibial and fibular sesamoid bones. Normal interphalangeal joint of the great toe. Normal phalanges of the great toe. Normal second through fifth metatarsophalangeal joints. Normal interphalangeal joints and phalanges of the lesser toes. The soft tissue structures are unremarkable. RAD/Foot min 3 Views IMPRESSION: Charcot foot with postsurgical changes and healed fractures of the metatarsal bone but no definite osteomyelitis. Interval removal of Nimco wires from the midfoot. Electronically Signed: Mayito Addison MD at 20:38 EST ,
--- NOTE | 2023-09-08 10:30 | RAD_ITS ---
STUDY: X-RAY - LEFT ANKLE REASON FOR EXAM: Male, 43 years old. WOUND TECHNIQUE: 3 view(s) of the ankle. COMPARISON: 08/25/2023 FINDINGS: Status post resection of the distal fibula. Status post tibiotalar and hindfoot arthrodesis with intramedullary vance. Normal visualized talus and calcaneus. The visualized subtalar, talonavicular, calcaneocuboid and tarsal articulations are normal. Radiolucency of the lateral aspect of the ankle at the site of fibular resection extending to the lateral cortex of the distal tibia with irregularity of the cortex and possible periosteal reaction worrisome for osteomyelitis. RAD/Ankle min 3 Views IMPRESSION: 1. Status post tibiotalar and hindfoot arthrodesis with intramedullary vance. 2. Status post resection of the distal fibula. 3. Suspect wound of the lateral aspect of the ankle extending from the lateral cortex of the distal tibia with suspected osteomyelitis. Electronically Signed: Mayito Addison MD at 20:41 EST ,
[2023-09-13 10:02] VITALS: BP 122/68; PULSE 93; RESP 18; TEMP 35.5; BMI 33.9
--- NOTE | 2023-09-13 10:36 | PCM.WC.PN ---
History of Present Illness Date of Service: 09/13/23 Chief Complaint: Diabetic left foot infection with gas gangrene and osteomyelitis. History of Wound: 43-year-old male status post left ankle incision and drainage of abscess on 09/01/2023. Patient had abscess and osteomyelitis growing Enterococcus and Pseudomonas. Patient follow-up today. Denies constitutional symptoms. Patient has PICC line receiving meropenem 3 times a day for the next 6 weeks. Patient has home health care. No other complaints. Objective Data Objective Data Vital Signs: Vital Signs Temp Pulse Resp BP O2 Flow Rate 96 F L 93 18 122/68 H 99 09/13/23 10:02 09/13/23 10:02 09/13/23 10:02 09/13/23 10:02 09/08/23 00:33 Oxygen Flow Rate (L/min) 99 Weight: 113.398 kg Body Mass Index (BMI) 33.9 Physical Exam Narrative Neurovascular status unchanged Full-thickness wounds to medial ankle healing well stable granular base no signs of infection. Lateral ankle wound down to the level of bone noted with intact vessel loop closure allowing for partial wound closure. There is a residual wound. Pre and postdebridement measurements documented in notes nursing notes. This was debrided down to level of muscle today. No residual abscess noted. Resolved acute signs of infection. No signs of DVT. Debridement Note Debridement Note Post-Debridement Measurements and Additional Note: Post-Debridement Measurements/Treatment [facility] Nurse 1 - General Ulcer Assessment Start: 09/13/23 10:02 Freq: Status: Active Protocol: .LOWEXT Activity Type Activity Date Activity User E-sign Co-sign Detail Recorded Client Recorded Date Recorded By Document 09/13/23 10:02 Desktop 09/13/23 10:21 09/13/23 10:02 - Today's Visit Information Type of service Follow-up Visit (Physician/RETAIL SHIFT LEADER ) Arrival Mode Ambulatory Transfer Assistance None Patient Identification Verified (Name & Yes ) Patient Requires Transmission-Based No Precautions Height and Weight Body Mass Index (BMI) 33.9 BMI Classification Obese Vital Signs Temperature (97.8 F-99.1 F) 96 F L Temperature Source Temporal Pulse Rate (60-100) 93 Pulse Location Monitor Respiratory Rate (12-18) 18 Respiratory rate source Observation Blood Pressure (90/60-120/80) 122/68 H Blood Pressure Mean (mm Hg) 86 Source Monitor Position Semi-Fowlers Blood Pressure Location Left Arm History Since Last Visit- (Skip if this is Patient's initial visit) Have you changed medications since your No last visit? Any new allergies or adverse reactions No Had a fall/change in ADL's that may No increase risk of falls Signs or symptoms of abuse and/or No neglect since last visit Have you been in the hospital since your No last visit? Has dressing in place as prescribed Yes Has compression in place as prescribed Yes Has offloadiing in place as prescribed Yes Experienced any changes in pain level or No management Pain Scale: 0-10 Numeric Is Patient Pain Free? Yes WC - Nurse 1 - General Ulcer Measurement Start: 09/13/23 10:02 Freq: Status: Active Protocol: Activity Type Activity Date Activity User E-sign Co-sign Detail Recorded Client Recorded Date Recorded By Document 09/13/23 10:02 RB Desktop 09/13/23 10:21 RB 09/13/23 10:02 Wound Center Nurse 1 7. L lateral ankle -Combined with other wound No -Current Size (cm) - Length 3 -Current Size (cm) - Width 1 -Current Size (cm) - Depth 2.5 -Total Square Cm 3 -Tunneling No -Undermining/Tunneling No -Circular Undermining No -Exudate Amt Medium -Exudate Type Serosanguineous -Wound Margin Distinct, Outline Attached -Granulation Amt Medium (34-66%) -Granulation Quality [place] -Slough/Fibrin Yes -Necrosis Amt Medium (34-66%) -Necrotic Tissue Type Adherent Slough -Structure Exposed N/A -Texture ([place]-wound Skin Appearance) Assessed -Moisture ([place]-wound Skin Appearance) Assessed -Color ([place]-wound Skin Appearance) Assessed -Temperature ([place]-wound Skin No Abnormality Appearance) (Pt Warm) -Tenderness on Palpation ([place]-wound No Skin Appearance) -Ulcer Cleansing Wound Cleanser -Foul Odor after Cleansing No -Anesthetic Used 4% Lidocaine Solution 6. L medial ankle -Combined with other wound No -Current Size (cm) - Length 0.1 -Current Size (cm) - Width 0.1 -Current Size (cm) - Depth 0.1 -Total Square Cm 0.01 -Tunneling No -Undermining/Tunneling No -Circular Undermining No -Exudate Amt Medium -Exudate Type Serosanguineous -Wound Margin Distinct, Outline Attached -Granulation Amt Medium (34-66%) -Granulation Quality [place] -Slough/Fibrin Yes -Necrosis Amt Medium (34-66%) -Necrotic Tissue Type Adherent Slough -Structure Exposed N/A -Texture ([place]-wound Skin Appearance) Assessed -Moisture ([place]-wound Skin Appearance) Assessed -Color ([place]-wound Skin Appearance) Assessed -Temperature ([place]-wound Skin No Abnormality Appearance) (Pt Warm) -Tenderness on Palpation ([place]-wound No Skin Appearance) -Ulcer Cleansing Wound Cleanser -Foul Odor after Cleansing No Lower Limb Edema Present Yes Left Calf (cm) 34.5 Left Ankle (cm) 30 Assessment/Plan Assessment/Plan (1) Osteomyelitis of ankle, left, acute: CODE(S): M86.172 - Other acute osteomyelitis, left ankle and foot PLAN: Exam performed Patient on IV meropenem via PICC line per infectious disease for enterococcal and pseudomonal infection left lower extremity with bone involvement Patient is status post Charcot reconstruction. This is a limb salvage case Today left lower extremity wound to lateral ankle was debrided down to and including level of muscle excisionally using a 5 mm dermal curette without incident. No anesthesia due to neuropathy. Hemostasis obtained with light compression. Patient tolerated procedure well. Pre and postdebridement measurements documented nursing notes. Patient will receive 3 times a week wound packing with Dakin's wet-to-dry and overlying multilayer compression wrap. Wound dressing in the wound care center followed by 2 dressings to performed by home health care Patient follows up weekly Patient nonweightbearing left lower extremity patient being worked up for HBO therapy, which I recommend Blood sugar well-controlled (2) Charcot foot due to diabetes mellitus: CODE(S): E11.610 - 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 arthropathy (3) Abscess of bursa, left ankle and foot: CODE(S): M71.072 - Abscess of bursa, left ankle and foot (4) Cellulitis of left lower limb: CODE(S): L03.116 - Cellulitis of left lower limb (5) Non-pressure chronic ulcer of left 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: CODE(S): L97.322 - Non-pressure chronic ulcer of left 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 (6) Type 2 diabetes mellitus with diabetic polyneuropathy: CODE(S): E11.42 - Type 2 diabetes mellitus with diabetic polyneuropathy QUALIFIERS: Diabetes mellitus intermission coordinator insulin use: without intermission coordinator use Qualified Code(s): E11.42 - Type 2 diabetes mellitus with diabetic polyneuropathy
--- NOTE | 2023-09-13 14:06 | PCM.WC.HP ---
History of Present Illness Date of Service: 09/13/23 Chief Complaint: Diabetic left foot infection with gas gangrene and osteomyelitis; Li grade 3 diabetic foot infection. History of Wound: This is a 43-year-old male who has a history of diabetic foot pathology and infections. On July 15, 2023, the patient underwent reconstruction of a left Charcot foot deformity by means of a left ankle arthrodesis, subtalar joint arthrodesis, midfoot osteotomy with percutaneous pinning, and application of a left lower extremity splint. He subsequently developed left foot and ankle abscess with full-thickness wounds and osteomyelitis of the left ankle, and on September 01, 2023, he underwent incision and drainage of an abscess down to bone with wound site debridement and wound bed preparation for delayed skin graft application. With respect to his osteomyelitis, the patient is receiving meropenem 3 times daily intravenously for Enterococcus and Pseudomonas infection by means of a PICC line which is located in his left upper arm. He is receiving home health care. Wound care is by means of packing with Dakin's moist to dry dressings, as his surgical wound is only partially closed. A multi layer compression wrap is being used to help minimize swelling. The patient is non-weightbearing. He is felt to be in a limb threatening situation, and has been referred for evaluation as a prelude to implementation of hyperbaric oxygen therapy for a Li grade 3 diabetic foot wound with osteomyelitis. A thorough review of systems has been discussed with the patient. He has no history of pulmonary or otic barotrauma. In fact, the patient has undergone hyperbaric oxygen therapy sessions in the past, approximately 10 years ago, for a diabetic right foot infection. He tolerated hyperbaric oxygen therapy at that time without incident. 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 His history is negative for seizures and seizure disorder. Pulmonary history is negative. Cardiac history is negative. The patient has no history of renal disease. He has no history of anemia or other hemopoietic abnormalities. The patient has no endocrine problems. He is not a smoker. Recent chest x-ray reveals moderate lung volumes. Increased AP dimension of the chest. Subsegmental atelectasis suggested in the left lung base. No definite inflammatory infiltrates. No effusions. Mild cardiac enlargement. Normal mediastinum and michelle. Normal visualized pulmonary arteries. Normal visualized aortic arch and descending thoracic aorta. An EKG reveals normal sinus rhythm and is interpreted as a normal EKG. Laboratory results from September 05, 2023, are as follows: Glucose 107, BUN 24, creatinine 0.89, calcium 9.6, sodium 141, potassium 3.9, chloride 108, white blood count 5.4, hemoglobin 10.5, hematocrit 34.3, platelets 261,000, hemoglobin A1c 6.0, serum prealbumin 19.9. FORMERLY [facility], [facility] Medical History Dietary restriction Gas gangrene of foot History of edema Hypertension Hypertension Osteomyelitis of ankle or foot, left, acute Type 2 diabetes mellitus with diabetic polyneuropathy Wears glasses Home Medications metformin 1,000 mg tablet 1,000 mg PO BID diabetes 11/14/21 [History Last Taken 08/30/23] calcium citrate 200 mg (950 mg) tablet 200 mg PO DAILY SUPPLEMENT 11/24/21 [History Last Taken 08/30/23] multivitamin 1 tab PO DAILY SUPPLEMENT 11/24/21 [History Last Taken 08/30/23] losartan 25 mg tablet 25 mg PO DAILY BLOOD PRESSURE 09/15/22 [History Last Taken 08/30/23] semaglutide 14 mg tablet (Rybelsus) 14 mg PO DAILY DIABETES 07/06/23 [History Last Taken 08/30/23] ascorbic acid (vitamin C) 1,000 mg tablet,extended release (C Complex) 1,000 mg PO DAILY SUPPLEMENT 08/30/23 [History Last Taken 08/30/23] omega 7-wyr-lbc-fish oil 300 mg-1,000 mg capsule (Fish Oil) 2 cap PO DAILY SUPPLEMENT 08/30/23 [History Last Taken 08/30/23] pravastatin 80 mg tablet 80 mg PO QHS CHOLESTEROL 08/30/23 [History Last Taken 08/29/23] meropenem 1 gram intravenous solution 1 g IV Q8 38 days #114 ea 09/05/23 [Rx Last Taken Unknown] Allergy/AdvReac Type Severity Reaction Status Date / Time Penicillins [PCN] Allergy Rash Verified 08/30/23 10:45 Surgical History Hx of eye surgery Hx of foot surgery Hx of foot surgery Social History Smoking Status: Never smoker Vital Signs Vital Signs Vital Signs: 09/13/23 10:02 Temperature 96 F L Temperature Source Temporal Pulse Rate 93 Respiratory Rate 18 Blood Pressure 122/68 H Blood Pressure Mean 86 Blood Pressure Source Monitor Blood Pressure Position Semi-Fowlers Blood Pressure Location Left Arm Weight Weight: 250 lb Body Mass Index (BMI) 33.9 Physical Exam Const alert, oriented x3, no apparent distress and well nourished Constitutional Narrative: The patient is mildly obese. He is alert, conversant, and appropriate. General Appearance: cooperative, comfortable, well kempt and well developed Orientation / Consciousness: awake, oriented to person, oriented to place and oriented to time HEENT normocephalic and head/scalp atraumatic Head and Scalp: normal to inspection, normocephalic and atraumatic External Ear: external ears normal Eyes PERRL and EOMs intact bilaterally General Eye: normal appearance of both eyes Neck full ROM General: normal visual inspection Resp normal respiratory effort, normal air movement, no retractions, no use of accessory muscles and clear to auscultation bilaterally Effort and Inspection: able to speak in complete sentences and symmetric chest movement Cardio regular rate, regular rhythm, S1 normal heart sound, S2 normal heart sound and no murmurs Extremity no calf tenderness General Extremity: Negative for clubbing or cyanosis Skin Wound Narrative: A wound dressing engulfed the patient's left foot. A brace is noted on the right foot and ankle. Neuro oriented x3, CN's II-XII intact bilaterally, moves all extremities and no focal motor deficits Sensorium / Orientation: awake, alert, oriented to person, oriented to place and oriented to time Psych Appearance: grossly normal and appropriate Attitude: calm Activity / Motor Behavior: appropriate eye contact Speech: normal speech Mood & Affect: euthymic mood Thought Process: normal thought process Thought Content: normal thought content Attention / Concentration: attention grossly intact Debridement Note Debridement Note Post-Debridement Measurements and Additional Note: Post-Debridement Measurements/Treatment WC - Nurse 1 - General Ulcer Assessment Start: 09/13/23 10:02 Freq: Status: Active Protocol: [email or web address].[email or web address] Activity Type Activity Date Activity User E-sign Co-sign Detail Recorded Client Recorded Date Recorded By Document 09/13/23 10:02 RB Desktop 09/13/23 10:21 RB 09/13/23 10:02 - Today's Visit Information Type of service 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[employer] ) Arrival Mode Ambulatory Transfer Assistance None Patient Identification Verified (Name & Yes ) Patient Requires Transmission-Based No Precautions Height and Weight Body Mass Index (BMI) 33.9 BMI Classification Obese Vital Signs Temperature (97.8 F-99.1 F) 96 F L Temperature Source Temporal Pulse Rate (60-100) 93 Pulse Location Monitor Respiratory Rate (12-18) 18 Respiratory rate source Observation Blood Pressure (90/60-120/80) 122/68 H Blood Pressure Mean 86 Source Monitor Position Semi-Fowlers Blood Pressure Location Left Arm History Since Last Visit- (Skip if this is Patient's initial visit) Have you changed medications since your No last visit? Any new allergies or adverse reactions No Had a fall/change in ADL's that may No increase risk of falls Signs or symptoms of abuse and/or No neglect since last visit Have you been in the hospital since your No last visit? Has dressing in place as prescribed Yes Has compression in place as prescribed Yes Has offloadiing in place as prescribed Yes Experienced any changes in pain level or No management Pain Scale: 0-10 Numeric Is Patient Pain Free? Yes - Nurse 1 - General Ulcer Measurement Start: 09/13/23 10:02 Freq: Status: Active Protocol: Activity Type Activity Date Activity User E-sign Co-sign Detail Recorded Client Recorded Date Recorded By Document 09/13/23 10:02 Desktop 09/13/23 10:21 09/13/23 10:02 Wound Center Nurse 1 7. L lateral ankle -Combined with other wound No -Current Size (cm) - Length 3 -Current Size (cm) - Width 1 -Current Size (cm) - Depth 2.5 -Total Square Cm 3 -Tunneling No -Undermining/Tunneling No -Circular Undermining No -Exudate Amt Medium -Exudate Type Serosanguineous -Wound Margin Distinct, Outline Attached -Granulation Amt Medium (34-66%) -Granulation Quality [place] -Slough/Fibrin Yes -Necrosis Amt Medium (34-66%) -Necrotic Tissue Type Adherent Slough -Structure Exposed N/A -Texture ([place]-wound Skin Appearance) Assessed -Moisture ([place]-wound Skin Appearance) Assessed -Color ([place]-wound Skin Appearance) Assessed -Temperature ([place]-wound Skin No Abnormality Appearance) (Pt Warm) -Tenderness on Palpation ([place]-wound No Skin Appearance) -Ulcer Cleansing Wound Cleanser -Foul Odor after Cleansing No -Anesthetic Used 4% Lidocaine Solution 6. L medial ankle -Combined with other wound No -Current Size (cm) - Length 0.1 -Current Size (cm) - Width 0.1 -Current Size (cm) - Depth 0.1 -Total Square Cm 0.01 -Tunneling No -Undermining/Tunneling No -Circular Undermining No -Exudate Amt Medium -Exudate Type Serosanguineous -Wound Margin Distinct, Outline Attached -Granulation Amt Medium (34-66%) -Granulation Quality [place] -Slough/Fibrin Yes -Necrosis Amt Medium (34-66%) -Necrotic Tissue Type Adherent Slough -Structure Exposed N/A -Texture ([place]-wound Skin Appearance) Assessed -Moisture ([place]-wound Skin Appearance) Assessed -Color ([place]-wound Skin Appearance) Assessed -Temperature ([place]-wound Skin No Abnormality Appearance) (Pt Warm) -Tenderness on Palpation ([place]-wound No Skin Appearance) -Ulcer Cleansing Wound Cleanser -Foul Odor after Cleansing No Lower Limb Edema Present Yes Left Calf (cm) 34.5 Left Ankle (cm) 30 WC - Nurse 2 - General Ulcer CM Notes Start: 09/13/23 10:02 Freq: Status: Active Protocol: Activity Type Activity Date Activity User E-sign Co-sign Detail Recorded Client Recorded Date Recorded By Document 09/13/23 11:23 BRIAN [id number] 09/13/23 11:24 09/13/23 11:23 Wound Center Nurse 2 7. L lateral ankle -Time 11:23 -Correct Patient Yes -Correct Side, Site, Position Yes -Correct Procedure Yes -Procedure Performed Yes -Type of Procedure Debridement -Clinical Debridement Muscle / Fascia -Tissue Removed Muscle -Post Debridement (cm) - Length 4.9 -Post Debridement (cm) - Width 1.0 -Post Debridement (cm) - Depth 3.6 -Total Square (Post) (cm) 4.90 -Area of Debridement (cm) - Length 4.9 -Area of Debridement (cm) - Width 1.0 -Total Square (Area) (cm) 4.90 -Tunneling No -Undermining/Tunneling No -Circular Undermining No -Wound/Ulcer Outcome Not Healed -Ulcer Cleansing Rinsed/ Irrigated with Saline -Foul Odor after Cleansing No -Bioengineered Tissue No -Bleeding Controlled with Pressure -Treatment Response Procedure Tolerated Well -Offloading No -Debridement - Muscle / Fascia, 1st Yes 20sq cm 6. L medial ankle -Time 11:24 -Correct Patient Yes -Correct Side, Site, Position Yes -Correct Procedure Yes -Procedure Performed Yes -Type of Procedure Debridement -Clinical Debridement Muscle / Fascia -Tissue Removed Muscle -Post Debridement (cm) - Length 2.0 -Post Debridement (cm) - Width 0.3 -Post Debridement (cm) - Depth 0.7 -Total Square (Post) (cm) 0.60 -Area of Debridement (cm) - Length 2.0 -Area of Debridement (cm) - Width 0.3 -Total Square (Area) (cm) 0.60 -Tunneling No -Undermining/Tunneling No -Circular Undermining No -Wound/Ulcer Outcome Not Healed -Ulcer Cleansing Rinsed/ Irrigated with Saline -Foul Odor after Cleansing No -Bioengineered Tissue No -Bleeding Controlled with Pressure -Treatment Response Procedure Tolerated Well -Offloading No -Debridement - Muscle / Fascia, 1st No 20sq cm Pain Scale: 0-10 Numeric Is Patient Pain Free? Yes - Nurse 3 - General Ulcer D/C NN Start: 09/13/23 10:02 Freq: Status: Active Protocol: Activity Type Activity Date Activity User E-sign Co-sign Detail Recorded Client Recorded Date Recorded By Document 09/13/23 11:25 BRIAN [id number] 09/13/23 11:26 BRIAN 09/13/23 11:25 Wound Care Center Nurse 3 7. L lateral ankle -Ulcer Cleansing Rinsed/ Irrigated with Saline -Foul Odor after Cleansing No -Other Dressing 0.25% dakin's -Primary Dressing Covered/Secured with Dry Gauze 6. L medial ankle -Ulcer Cleansing Rinsed/ Irrigated with Saline -Foul Odor after Cleansing No -Other Dressing 0.25 Dakin's -Primary Dressing Covered/Secured with Dry Gauze Left -Lotion applied to leg before Yes compression wrap -Multi-Layered Wrap Application Multi-Layer Comp - Left ($) Pain Scale: 0-10 Numeric Is Patient Pain Free? Yes - Visit Discharge Discharge Condition Stable Ambulatory Status Wheelchair Transportation Private Auto Accompanied by father Medication Reconcilliation completed & Yes provided to patient/care provider Clinical Summary of Care Provided Yes Assessment/Plan Assessment/Plan (1) Osteomyelitis of ankle or foot, left, acute: CODE(S): M86.172 - Other acute osteomyelitis, left ankle and foot (2) Osteomyelitis of ankle, left, acute: CODE(S): M86.172 - Other acute osteomyelitis, left ankle and foot (3) Abscess of bursa, left ankle and foot: CODE(S): M71.072 - Abscess of bursa, left ankle and foot (4) Cellulitis of left lower limb: CODE(S): L03.116 - Cellulitis of left lower limb (5) Charcot foot due to diabetes mellitus: CODE(S): E11.610 - 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 arthropathy (6) Non-pressure chronic ulcer of left 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: CODE(S): L97.322 - Non-pressure chronic ulcer of left 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 (7) Other acute postprocedural pain: CODE(S): G89.18 - Other acute postprocedural pain (8) Type 2 diabetes mellitus with diabetic polyneuropathy: CODE(S): E11.42 - Type 2 diabetes mellitus with diabetic polyneuropathy QUALIFIERS: 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: without petroleum terminal plant operator use Qualified Code(s): E11.42 - Type 2 diabetes mellitus with diabetic polyneuropathy (9) 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 muscle: CODE(S): L97.523 - 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 muscle (10) Gas gangrene of foot: CODE(S): A48.0 - Gas gangrene (11) Diabetic infection of left foot: CODE(S): E11.628 - Type 2 diabetes mellitus with other skin complications; L08.9 - Local infection of the skin and subcutaneous tissue, unspecified (12) 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 bone: CODE(S): L97.524 - 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 bone (13) 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 muscle: CODE(S): L97.523 - 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 muscle (14) Cellulitis: CODE(S): L03.90 - Cellulitis, unspecified QUALIFIERS: Site of cellulitis: extremity Site of cellulitis of extremity: lower extremity Laterality: left Qualified Code(s): L03.116 - Cellulitis of left lower limb (15) Hypertension: CODE(S): I10 - Essential (primary) hypertension PLAN: Plan This is a 43-year-old male with a documented Li grade 3 diabetic left foot infection. He is currently receiving intravenous antibiotics by means of a PICC line inserted in his upper left arm. He is a candidate for hyperbaric oxygen therapy. He appears to meet the indications for such. A thorough physical evaluation and review of systems has been undertaken, and there appear to be no contraindications to proceeding with hyperbaric oxygen therapy. The patient has previously undergone hyperbaric oxygen therapy in the past, and appears to be acquainted with its indications and risks. A thorough discussion has been undertaken with the patient in this regard. The patient has been advised of the expected benefits. The potential risks have been described in detail. These indications and risks will again be detailed before the patient begins hyperbaric oxygen therapy. Patient has indicated his desire to proceed. We are to begin hyperbaric oxygen treatments at 2 krzysztof for 90 minutes with no air breaks. A total of 30 such hyperbaric oxygen therapy sessions will be initiated. The patient will be evaluated serially as to his response to hyperbaric oxygen therapy. He will remain under the care of Dr. Jordi Perkins, podiatric specialist, we will monitor the status of the patient's diabetic left foot wound, and render appropriate care on a continuing basis. Total time: 46 minutes
[2023-09-14 12:57] LABS: Bedside Glucose 126 mg/dL (74-106)
[2023-09-14 21:08] LABS: Bedside Glucose 126 mg/dL (74-106)
[2023-09-14 21:08] LABS: Bedside Glucose 121 mg/dL (74-106)
[2023-09-14 21:08] LABS: Bedside Glucose 113 mg/dL (74-106)
[2023-09-15 12:50] LABS: Bedside Glucose 115 mg/dL (74-106)
[2023-09-15 12:50] LABS: Bedside Glucose 106 mg/dL (74-106)
[2023-09-16 10:58] LABS: Bedside Glucose 133 mg/dL (74-106)
[2023-09-16 10:58] LABS: Bedside Glucose 127 mg/dL (74-106)
[2023-09-16 11:26] LABS: Bedside Glucose 125 mg/dL (74-106)
[2023-09-16 11:47] VITALS: BP 126/71; BP 135/83; PULSE 81; PULSE 91; RESP 18; TEMP 35.7; TEMP 36.2
--- NOTE | 2023-09-16 12:35 | HBO.PN.PCM_ITS ---
History of Present Illness Date of Service: 09/16/23 Chief Complaint: Diabetic left foot infection with gas gangrene and osteom yelitis; Li grade 3 diabetic foot infection. History of Wound: This is a 43-year-old male who has a history of diabetic foot pathology and infections. On July 15, 2023, the patient underwent reconstruction of a left Charcot foot deformity by means of a left ankle arthrodesis, subtalar joint arthrodesis, midfoot osteotomy with percutaneous pinning, and application of a left lower extremity splint. He subsequently developed left foot and ankle abscess with full-thickness wounds and osteomyelitis of the left ankle, and on September 01, 2023, he underwent incision and drainage of an abscess down to bone with wound site debridement and wound bed preparation for delayed skin graft application. With respect to his osteomyelitis, the patient is receiving meropenem 3 times daily intravenously for Enterococcus and Pseudomonas infection by means of a PICC line which is located in his left upper arm. He is receiving home health care. Wound care is by means of packing with Dakin's moist to dry dressings, as his surgical wound is only partially closed. A multi layer compression wrap is being used to help minimize swelling. The patient is non-weightbearing. He is felt to be in a limb threatening situation, and has been referred for evaluation as a prelude to implementation of hyperbaric oxygen therapy for a Li grade 3 diabetic foot wound with osteomyelitis. A thorough review of systems has been discussed with the patient. He has no history of pulmonary or otic barotrauma. In fact, the patient has undergone hyperbaric oxygen therapy sessions in the past, approximately 10 years ago, for a diabetic right foot infection. He tolerated hyperbaric oxygen therapy at that time without incident. 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 His history is negative for seizures and seizure disorder. Pulmonary history is negative. Cardiac history is negative. The patient has no history of renal disease. He has no history of anemia or other hemopoietic abnormalities. The patient has no endocrine problems. He is not a smoker. Recent chest x-ray reveals moderate lung volumes. Increased AP dimension of the chest. Subsegmental atelectasis suggested in the left lung base. No definite inflammatory infiltrates. No effusions. Mild cardiac enlargement. Normal mediastinum and michelle. Normal visualized pulmonary arteries. Normal visualized aortic arch and descending thoracic aorta. An EKG reveals normal sinus rhythm and is interpreted as a normal EKG. Laboratory results from September 05, 2023, are as follows: Glucose 107, BUN 24, creatinine 0.89, calcium 9.6, sodium 141, potassium 3.9, chloride 108, white blood count 5.4, hemoglobin 10.5, hematocrit 34.3, platelets 261,000, hemoglobin A1c 6.0, serum prealbumin 19.9. Subjective Subjective Progress: Today is the 1st treatment of hyperbaric oxygen therapy. The patient is scheduled for 30 treatments total. Tolerance of hyperbaric oxygen therapy: Hyperbaric oxygen treatment was provided as per the facility's protocol at 2.0 NEIL in 100% oxygen for 90 minutes without air breaks. The patient tolerated hyperbaric oxygen well, without complications or complaints. Upon emergence of the hyperbaric chamber, the patient's vital signs remained stable. Inital Blood sugar was 133 and post reading was 125. Objective Data Objective Data Vital Signs: Vital Signs Temp Pulse Resp BP O2 Flow Rate 96.2 F L 91 18 135/83 H 99 09/16/23 11:47 09/16/23 11:47 09/16/23 11:47 09/16/23 11:47 09/08/23 00:33 Oxygen Flow Rate (L/min) 99 Weight: 113.398 kg Body Mass Index (BMI) 33.9 Lab / Micro Data Labs: Laboratory Results - last 24 hr 09/15/23 12:12: POC Glucose 115 H 09/15/23 12:30: POC Glucose 106 09/16/23 08:49: POC Glucose 127 H 09/16/23 09:03: POC Glucose 133 H 09/16/23 11:08: POC Glucose 125 H Exam Physical Exam Const alert, oriented x3 and no apparent distress Psych mental status grossly normal, thought process normal, cooperative, affect normal and speech normal Assessment/Plan Assessment/Plan (1) Osteomyelitis of ankle or foot, left, acute: CODE(S): M86.172 - Other acute osteomyelitis, left ankle and foot (2) Osteomyelitis of ankle, left, acute: CODE(S): M86.172 - Other acute osteomyelitis, left ankle and foot (3) Abscess of bursa, left ankle and foot: CODE(S): M71.072 - Abscess of bursa, left ankle and foot (4) Cellulitis of left lower limb: CODE(S): L03.116 - Cellulitis of left lower limb (5) Charcot foot due to diabetes mellitus: CODE(S): E11.610 - 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 arthropathy (6) Non-pressure chronic ulcer of left 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: CODE(S): L97.322 - Non-pressure chronic ulcer of left 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 (7) Other acute postprocedural pain: CODE(S): G89.18 - Other acute postprocedural pain (8) Type 2 diabetes mellitus with diabetic polyneuropathy: CODE(S): E11.42 - Type 2 diabetes mellitus with diabetic polyneuropathy QUALIFIERS: Diabetes mellitus penitentiary insulin use: without exterminator helper termite use Qualified Code(s): E11.42 - Type 2 diabetes mellitus with diabetic polyneuropathy (9) 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 muscle: CODE(S): L97.523 - 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 muscle (10) Gas gangrene of foot: CODE(S): A48.0 - Gas gangrene (11) Diabetic infection of left foot: CODE(S): E11.628 - Type 2 diabetes mellitus with other skin complications; L08.9 - Local infection of the skin and subcutaneous tissue, unspecified (12) 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 bone: CODE(S): L97.524 - 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 bone (13) 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 muscle: CODE(S): L97.523 - 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 muscle (14) Cellulitis: CODE(S): L03.90 - Cellulitis, unspecified QUALIFIERS: Site of cellulitis: extremity Site of cellulitis of extremity: lower extremity Laterality: left Qualified Code(s): L03.116 - Cellulitis of left lower limb (15) Hypertension: CODE(S): I10 - Essential (primary) hypertension QUALIFIERS: Hypertension type: primary hypertension Qualified Code(s): I10 - Essential (primary) hypertension PLAN: Plan The patient appears to be tolerating hyperbaric oxygen therapy well, which will be continued as per their medical treatment plan.
[2023-09-19 12:20] LABS: Bedside Glucose 167 mg/dL (74-106)
--- NOTE | 2023-09-19 13:08 | PCM.HBO.PN ---
History of Present Illness Date of Service: 09/19/23 Chief Complaint: Diabetic left foot infection with gas gangrene and osteomyelitis; Li grade 3 diabetic foot infection. History of Wound: This is a 43-year-old male who has a history of diabetic foot pathology and infections. On July 15, 2023, the patient underwent reconstruction of a left Charcot foot deformity by means of a left ankle arthrodesis, subtalar joint arthrodesis, midfoot osteotomy with percutaneous pinning, and application of a left lower extremity splint. He subsequently developed left foot and ankle abscess with full-thickness wounds and osteomyelitis of the left ankle, and on September 01, 2023, he underwent incision and drainage of an abscess down to bone with wound site debridement and wound bed preparation for delayed skin graft application. With respect to his osteomyelitis, the patient is receiving meropenem 3 times daily intravenously for Enterococcus and Pseudomonas infection by means of a PICC line which is located in his left upper arm. He is receiving home health care. Wound care is by means of packing with Dakin's moist to dry dressings, as his surgical wound is only partially closed. A multi layer compression wrap is being used to help minimize swelling. The patient is non-weightbearing. He is felt to be in a limb threatening situation, and has been referred for evaluation as a prelude to implementation of hyperbaric oxygen therapy for a Li grade 3 diabetic foot wound with osteomyelitis. A thorough review of systems has been discussed with the patient. He has no history of pulmonary or otic barotrauma. In fact, the patient has undergone hyperbaric oxygen therapy sessions in the past, approximately 10 years ago, for a diabetic right foot infection. He tolerated hyperbaric oxygen therapy at that time without incident. 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 His history is negative for seizures and seizure disorder. Pulmonary history is negative. Cardiac history is negative. The patient has no history of renal disease. He has no history of anemia or other hemopoietic abnormalities. The patient has no endocrine problems. He is not a smoker. Recent chest x-ray reveals moderate lung volumes. Increased AP dimension of the chest. Subsegmental atelectasis suggested in the left lung base. No definite inflammatory infiltrates. No effusions. Mild cardiac enlargement. Normal mediastinum and michelle. Normal visualized pulmonary arteries. Normal visualized aortic arch and descending thoracic aorta. An EKG reveals normal sinus rhythm and is interpreted as a normal EKG. Laboratory results from September 05, 2023, are as follows: Glucose 107, BUN 24, creatinine 0.89, calcium 9.6, sodium 141, potassium 3.9, chloride 108, white blood count 5.4, hemoglobin 10.5, hematocrit 34.3, platelets 261,000, hemoglobin A1c 6.0, serum prealbumin 19.9. Subjective Subjective Progress: Today is the 2nd treatment of hyperbaric oxygen therapy. The patient is scheduled for 30 treatments total. Tolerance of hyperbaric oxygen therapy: Hyperbaric oxygen treatment was provided as per the facility's protocol at 2.0 NEIL in 100% oxygen for 90 minutes without air breaks. The patient tolerated hyperbaric oxygen well, without complications or complaints. Upon emergence of the hyperbaric chamber, the patient's vital signs remained stable. Blood sugar levels documented by nursing. Objective Data Objective Data Vital Signs: Vital Signs Temp Pulse Resp BP O2 Flow Rate 96.2 F L 91 18 135/83 H 99 09/16/23 11:47 09/16/23 11:47 09/16/23 11:47 09/16/23 11:47 09/08/23 00:33 Oxygen Flow Rate (L/min) 99 Weight: 250 lb Body Mass Index (BMI) 33.9 Lab / Micro Data Labs: Laboratory Results - last 24 hr 09/19/23 11:58: POC Glucose 167 H Exam Physical Exam Const alert General Appearance: cooperative HEENT normocephalic Chest inspection of chest normal Resp normal respiratory effort and normal air movement Effort and Inspection: able to speak in complete sentences; Negative for respiratory distress Cardio regular rate and regular rhythm Neuro Speech: speech normal Assessment/Plan Assessment/Plan (1) Osteomyelitis of ankle or foot, left, acute: CODE(S): M86.172 - Other acute osteomyelitis, left ankle and foot (2) Osteomyelitis of ankle, left, acute: CODE(S): M86.172 - Other acute osteomyelitis, left ankle and foot (3) Abscess of bursa, left ankle and foot: CODE(S): M71.072 - Abscess of bursa, left ankle and foot (4) Cellulitis of left lower limb: CODE(S): L03.116 - Cellulitis of left lower limb (5) Charcot foot due to diabetes mellitus: CODE(S): E11.610 - 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 arthropathy (6) Non-pressure chronic ulcer of left 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: CODE(S): L97.322 - Non-pressure chronic ulcer of left 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 (7) Other acute postprocedural pain: CODE(S): G89.18 - Other acute postprocedural pain (8) Type 2 diabetes mellitus with diabetic polyneuropathy: CODE(S): E11.42 - Type 2 diabetes mellitus with diabetic polyneuropathy QUALIFIERS: Diabetes mellitus termite technician insulin use: without termite technician use Qualified Code(s): E11.42 - Type 2 diabetes mellitus with diabetic polyneuropathy (9) 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 muscle: CODE(S): L97.523 - 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 muscle (10) Gas gangrene of foot: CODE(S): A48.0 - Gas gangrene (11) Diabetic infection of left foot: CODE(S): E11.628 - Type 2 diabetes mellitus with other skin complications; L08.9 - Local infection of the skin and subcutaneous tissue, unspecified (12) 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 bone: CODE(S): L97.524 - 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 bone (13) 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 muscle: CODE(S): L97.523 - 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 muscle (14) Cellulitis: CODE(S): L03.90 - Cellulitis, unspecified QUALIFIERS: Site of cellulitis: extremity Site of cellulitis of extremity: lower extremity Laterality: left Qualified Code(s): L03.116 - Cellulitis of left lower limb (15) Hypertension: CODE(S): I10 - Essential (primary) hypertension QUALIFIERS: Hypertension type: primary hypertension Qualified Code(s): I10 - Essential (primary) hypertension PLAN: Plan The patient appears to be tolerating hyperbaric oxygen therapy well, which will be continued as per their medical treatment plan.
[2023-09-19 14:24] LABS: Bedside Glucose 131 mg/dL (74-106)
[2023-09-19 14:32] VITALS: BP 113/70; BP 116/71; PULSE 84; PULSE 93; RESP 18; TEMP 35.4; TEMP 36.2
[2023-09-20 09:55] VITALS: BP 135/71; PULSE 88; RESP 18; TEMP 36.1; BMI 33.9
--- NOTE | 2023-09-20 10:24 | PCM.WC.PN ---
History of Present Illness Date of Service: 09/20/23 Chief Complaint: Diabetic left foot infection with gas gangrene and osteomyelitis; Li grade 3 diabetic foot infection. History of Wound: Follow-up left TTC arthrodesis and midfoot osteotomy for Charcot reconstruction with secondary diabetic foot infection development which required abscess debridement down to level of tendon. Patient receiving meropenem via PICC line. No changes today, denies constitutional symptoms. Patient compliant with nonweightbearing, diabetes control and dressing changes. Objective Data Objective Data Vital Signs: Vital Signs Temp Pulse Resp BP O2 Flow Rate 97 F L 88 18 135/71 H 99 09/20/23 09:55 09/20/23 09:55 09/20/23 09:55 09/20/23 09:55 09/08/23 00:33 Oxygen Flow Rate (L/min) 99 Weight: 113.398 kg Body Mass Index (BMI) 33.9 Lab / Micro Data Labs: Laboratory Results - last 24 hr 09/19/23 11:58: POC Glucose 167 H 09/19/23 14:02: POC Glucose 131 H Physical Exam Narrative Neurovascular status unchanged Full-thickness wounds to medial ankle healing well stable granular base no signs of infection. Lateral ankle wound down to the level of bone noted with intact vessel loop closure allowing for partial wound closure. There is a residual wound. Pre and postdebridement measurements documented in notes nursing notes. This was debrided down to level of muscle today. No residual abscess noted. Resolved acute signs of infection. No signs of DVT. Debridement Note Debridement Note Post-Debridement Measurements and Additional Note: Post-Debridement Measurements/Treatment - Nurse 1 - General Ulcer Assessment Start: 09/13/23 10:02 Freq: Status: Active Protocol: GWEN Activity Type Activity Date Activity User E-sign Co-sign Detail Recorded Client Recorded Date Recorded By Document 09/13/23 10:02 RB Desktop 09/13/23 10:21 RB Document 09/20/23 09:55 RB Desktop 09/20/23 09:58 RB 09/13/23 09/20/23 10:02 09:55 - Today's Visit Information Type of service Follow-up Visit Follow-up Visit (Physician/PHOTOGRAPHIC LABORATORY TECHNICIAN (Physician/PHOTOGRAPHIC LABORATORY TECHNICIAN ) ) Arrival Mode Ambulatory Ambulatory Transfer Assistance None None Patient Identification Verified (Name & Yes Yes ) Patient Requires Transmission-Based No No Precautions Finger Stick Blood Sugar(mg/dl) (if 100 indicated): Blood Sugar Stated by Patient Height and Weight Body Mass Index (BMI) 33.9 33.9 BMI Classification Obese Obese Vital Signs Temperature (97.8 F-99.1 F) 96 F L 97 F L Temperature Source Temporal Temporal Pulse Rate (60-100) 93 88 Pulse Location Monitor Monitor Respiratory Rate (12-18) 18 18 Respiratory rate source Observation Observation Blood Pressure (90/60-120/80) 122/68 H 135/71 H Blood Pressure Mean (mm Hg) 86 92 Source Monitor Monitor Position Semi-Fowlers Semi-Fowlers Blood Pressure Location Left Arm Left Arm History Since Last Visit- (Skip if this is Patient's initial visit) Have you changed medications since your No No last visit? Any new allergies or adverse reactions No No Had a fall/change in ADL's that may No No increase risk of falls Signs or symptoms of abuse and/or No No neglect since last visit Have you been in the hospital since your No No last visit? Has dressing in place as prescribed Yes Yes Has compression in place as prescribed Yes Yes Has offloadiing in place as prescribed Yes No Experienced any changes in pain level or No No management Pain Scale: 0-10 Numeric Is Patient Pain Free? Yes Yes WC - Nurse 1 - General Ulcer Measurement Start: 09/13/23 10:02 Freq: Status: Active Protocol: Activity Type Activity Date Activity User E-sign Co-sign Detail Recorded Client Recorded Date Recorded By Document 09/13/23 10:02 RB Desktop 09/13/23 10:21 RB Document 09/20/23 09:55 RB Desktop 09/20/23 09:58 RB 09/13/23 09/20/23 10:02 09:55 Wound Center Nurse 1 7. L lateral ankle -Combined with other wound No No -Current Size (cm) - Length 3 4.2 -Current Size (cm) - Width 1 1 -Current Size (cm) - Depth 2.5 3 -Total Square Cm 3 4.2 -Tunneling No No -Undermining/Tunneling No No -Circular Undermining No No -Exudate Amt Medium Large -Exudate Type Serosanguineous Serosanguineous -Wound Margin Distinct, Distinct, Outline Outline Attached Attached -Granulation Amt Medium (34-66%) Medium (34-66%) -Granulation Quality [place] -Slough/Fibrin Yes Yes -Necrosis Amt Medium (34-66%) Medium (34-66%) -Necrotic Tissue Type Adherent Slough Adherent Slough -Structure Exposed N/A N/A -Texture ([place]-wound Skin Appearance) Assessed Assessed, Scarring -Moisture ([place]-wound Skin Appearance) Assessed Assessed -Color ([place]-wound Skin Appearance) Assessed Assessed -Temperature ([place]-wound Skin No Abnormality No Abnormality Appearance) (Pt Warm) (Pt Warm) -Tenderness on Palpation ([place]-wound No No Skin Appearance) -Ulcer Cleansing Wound Cleanser Wound Cleanser -Foul Odor after Cleansing No Yes -Anesthetic Used 4% Lidocaine Solution 6. L medial ankle -Combined with other wound No No -Current Size (cm) - Length 0.1 1.4 -Current Size (cm) - Width 0.1 0.5 -Current Size (cm) - Depth 0.1 0.5 -Total Square Cm 0.01 0.70 -Tunneling No No -Undermining/Tunneling No No -Circular Undermining No No -Exudate Amt Medium Medium -Exudate Type Serosanguineous Serosanguineous -Wound Margin Distinct, Distinct, Outline Outline Attached Attached -Granulation Amt Medium (34-66%) Medium (34-66%) -Granulation Quality [place] -Slough/Fibrin Yes Yes -Necrosis Amt Medium (34-66%) Medium (34-66%) -Necrotic Tissue Type Adherent Slough Adherent Slough -Structure Exposed N/A N/A -Texture ([place]-wound Skin Appearance) Assessed Assessed, Scarring -Moisture ([place]-wound Skin Appearance) Assessed Assessed -Color ([place]-wound Skin Appearance) Assessed Assessed -Temperature ([place]-wound Skin No Abnormality No Abnormality Appearance) (Pt Warm) (Pt Warm) -Tenderness on Palpation ([place]-wound No No Skin Appearance) -Ulcer Cleansing Wound Cleanser Wound Cleanser -Foul Odor after Cleansing No No -Anesthetic Used 4% Lidocaine Solution Lower Limb Edema Present Yes Yes Left Calf (cm) 34.5 34 Left Ankle (cm) 30 26 WC - Nurse 2 - General Ulcer CM Notes Start: 09/13/23 10:02 Freq: Status: Active Protocol: Activity Type Activity Date Activity User E-sign Co-sign Detail Recorded Client Recorded Date Recorded By Document 09/13/23 11:23 BRIAN [id number] 09/13/23 11:24 JF 09/13/23 11:23 Wound Center Nurse 2 7. L lateral ankle -Time 11:23 -Correct Patient Yes -Correct Side, Site, Position Yes -Correct Procedure Yes -Procedure Performed Yes -Type of Procedure Debridement -Clinical Debridement Muscle / Fascia -Tissue Removed Muscle -Post Debridement (cm) - Length 4.9 -Post Debridement (cm) - Width 1.0 -Post Debridement (cm) - Depth 3.6 -Total Square (Post) (cm) 4.90 -Area of Debridement (cm) - Length 4.9 -Area of Debridement (cm) - Width 1.0 -Total Square (Area) (cm) 4.90 -Tunneling No -Undermining/Tunneling No -Circular Undermining No -Wound/Ulcer Outcome Not Healed -Ulcer Cleansing Rinsed/ Irrigated with Saline -Foul Odor after Cleansing No -Bioengineered Tissue No -Bleeding Controlled with Pressure -Treatment Response Procedure Tolerated Well -Offloading No -Debridement - Muscle / Fascia, 1st Yes 20sq cm 6. L medial ankle -Time 11:24 -Correct Patient Yes -Correct Side, Site, Position Yes -Correct Procedure Yes -Procedure Performed Yes -Type of Procedure Debridement -Clinical Debridement Muscle / Fascia -Tissue Removed Muscle -Post Debridement (cm) - Length 2.0 -Post Debridement (cm) - Width 0.3 -Post Debridement (cm) - Depth 0.7 -Total Square (Post) (cm) 0.60 -Area of Debridement (cm) - Length 2.0 -Area of Debridement (cm) - Width 0.3 -Total Square (Area) (cm) 0.60 -Tunneling No -Undermining/Tunneling No -Circular Undermining No -Wound/Ulcer Outcome Not Healed -Ulcer Cleansing Rinsed/ Irrigated with Saline -Foul Odor after Cleansing No -Bioengineered Tissue No -Bleeding Controlled with Pressure -Treatment Response Procedure Tolerated Well -Offloading No -Debridement - Muscle / Fascia, 1st No 20sq cm Pain Scale: 0-10 Numeric Is Patient Pain Free? Yes WC - Nurse 3 - General Ulcer D/C NN Start: 09/13/23 10:02 Freq: Status: Active Protocol: Activity Type Activity Date Activity User E-sign Co-sign Detail Recorded Client Recorded Date Recorded By Document 09/13/23 11:25 BRIAN [id number] 09/13/23 11:26 BRIAN 09/13/23 11:25 Wound Care Center Nurse 3 7. L lateral ankle -Ulcer Cleansing Rinsed/ Irrigated with Saline -Foul Odor after Cleansing No -Other Dressing 0.25% dakin's -Primary Dressing Covered/Secured with Dry Gauze 6. L medial ankle -Ulcer Cleansing Rinsed/ Irrigated with Saline -Foul Odor after Cleansing No -Other Dressing 0.25 Dakin's -Primary Dressing Covered/Secured with Dry Gauze Left -Lotion applied to leg before Yes compression wrap -Multi-Layered Wrap Application Multi-Layer Comp - Left ($) Pain Scale: 0-10 Numeric Is Patient Pain Free? Yes WC - Visit Discharge Discharge Condition Stable Ambulatory Status Wheelchair Transportation Private Auto Accompanied by father Medication Reconcilliation completed & Yes provided to patient/care provider Clinical Summary of Care Provided Yes Assessment/Plan Assessment/Plan (1) Osteomyelitis of ankle, left, acute: CODE(S): M86.172 - Other acute osteomyelitis, left ankle and foot PLAN: Exam performed Patient on IV meropenem via PICC line per infectious disease for enterococcal and pseudomonal infection left lower extremity with bone involvement Patient is status post Charcot reconstruction. This is a limb salvage case Today left lower extremity wound to lateral ankle was debrided down to and including level of muscle excisionally using a 5 mm dermal curette without incident. No anesthesia due to neuropathy. Hemostasis obtained with light compression. Patient tolerated procedure well. Pre and postdebridement measurements documented nursing notes. Patient will receive 3 times a week wound packing with Dakin's wet-to-dry and overlying multilayer compression wrap. Wound dressing in the wound care center followed by 2 dressings to performed by home health care Patient follows up weekly Patient nonweightbearing left lower extremity Patient received HBO therapy 2 times, wound significantly improved today. Blood sugar well-controlled (2) Charcot foot due to diabetes mellitus: CODE(S): E11.610 - 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 arthropathy (3) Abscess of bursa, left ankle and foot: CODE(S): M71.072 - Abscess of bursa, left ankle and foot (4) Cellulitis of left lower limb: CODE(S): L03.116 - Cellulitis of left lower limb (5) Non-pressure chronic ulcer of left 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: CODE(S): L97.322 - Non-pressure chronic ulcer of left 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 (6) Type 2 diabetes mellitus with diabetic polyneuropathy: CODE(S): E11.42 - Type 2 diabetes mellitus with diabetic polyneuropathy QUALIFIERS: Diabetes mellitus senior living insulin use: without senior living use Qualified Code(s): E11.42 - Type 2 diabetes mellitus with diabetic polyneuropathy
[2023-09-20 11:03] LABS: Bedside Glucose 134 mg/dL (74-106)
[2023-09-20 11:04] VITALS: BP 121/71; BP 129/68; PULSE 78; PULSE 90; RESP 18; TEMP 35.4; TEMP 35.8
[2023-09-20 13:08] LABS: Bedside Glucose 110 mg/dL (74-106)
--- NOTE | 2023-09-20 13:09 | PCM.HBO.PN ---
History of Present Illness Date of Service: 09/20/23 Chief Complaint: Diabetic left foot infection with gas gangrene and osteomyelitis; Li grade 3 diabetic foot infection. History of Wound: This is a 43-year-old male with a history of diabetic foot pathology and infections. On July 15, 2023, the patient underwent reconstruction of the left Charcot foot deformity by means of a left ankle arthrodesis, subtalar joint arthrodesis, midfoot osteotomy with percutaneous pinning, and application of the left lower extremity splint. He subsequently developed left foot and ankle abscess, with full-thickness wounds and osteomyelitis of the left ankle. On September 01, 2023, he underwent incision and drainage of an abscess down to bone, and wound site debridement and wound bed preparation for delayed skin graft application. With respect to his osteomyelitis, the patient is receiving meropenem 3 times daily intravenously for Enterococcus and Pseudomonas infection by means of a PICC line which is located in his left upper arm. He is receiving home health care. Wound care is by means of packing with Dakin's moist to dry dressings, as his surgical wound is only partially closed. A multilayer compression wrap is being used to minimize swelling. The patient is nonweightbearing. He is felt to be in a limb threatening situation, and was referred for evaluation as a prelude to implementing hyperbaric oxygen therapy for Li grade 3 diabetic foot wound with osteomyelitis. A thorough review of systems was undertaken. The patient has no history of pulmonary or otitic barotrauma. In fact, he has previously undergone hyperbaric oxygen therapy sessions in the past, approximately 10 years ago, for diabetic right foot infection. He tolerated hyperbaric oxygen therapy well at that time without incident. 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 His history is negative for seizures and seizure disorder. Pulmonary history is negative. Cardiac history is negative. The patient has no history of renal disease. He has no history of anemia or other hemopoietic abnormalities. There is no history of endocrine problems. He is not a smoker. Recent x-ray reveals moderate lung volumes. Increased AP dimension of the chest. Subsegmental atelectasis suggested in the left lung base. No definite inflammatory infiltrates. No effusions. Mild cardiac enlargement. Normal mediastinum and michelle. Normal visualized pulmonary arteries. Normal visualized aortic arch and descending thoracic aorta. An EKG reveals normal sinus rhythm and is interpreted as a normal EKG. Laboratory results have been reviewed, without any outstanding significant abnormalities. Progress of Wound: Serial monitoringof the patient's wound is underway by Dr. Perkins, podiatric specialist. Subjective Subjective The patient underwent his third hyperbaric oxygen session today. The patient is scheduled for 30 such sessions. Tolerance of hyperbaric oxygen therapy: Hyperbaric oxygen therapy was provided as per the facility's protocol. Hyperbaric oxygen therapy was undertaken at 2 krzysztof and 100% oxygen for 90 minutes without air breaks. The patient tolerated hyperbaric oxygen therapy well, without complications or complaints. Upon emergence from the hyperbaric chamber, the patient's vital signs remained stable. Blood sugar levels were monitored, and found to be satisfactory. Objective Data Objective Data Vital Signs: Vital Signs Temp Pulse Resp BP O2 Flow Rate 95.7 F L 90 18 121/71 H 99 09/20/23 11:04 09/20/23 11:04 09/20/23 11:04 09/20/23 11:04 09/08/23 00:33 Oxygen Flow Rate (L/min) 99 Weight: 250 lb Body Mass Index (BMI) 33.9 Lab / Micro Data Attestation: I reviewed the patient's lab results. Labs: Laboratory Results - last 24 hr 09/19/23 14:02: POC Glucose 131 H 09/20/23 10:44: POC Glucose 134 H 09/20/23 12:49: POC Glucose 110 H Exam Physical Exam Const alert, oriented x3, no apparent distress and well nourished General Appearance: cooperative and well developed HEENT normocephalic Head and Scalp: atraumatic External Auditory Canal: EAC's normal Tympanic Membrane: TM's normal bilaterally Mouth: oral and palatal mucosa normal Eyes PERRL and EOMs intact bilaterally Neck no JVD General: trachea midline Resp normal respiratory effort and no use of accessory muscles Effort and Inspection: able to speak in complete sentences Cardio regular rate and regular rhythm GI non-distended Psych affect normal Appearance: grossly normal and well kempt Speech: normal speech Nursing Assessment and Debridement Post-Debridement Measurements and Additional Note: Post-Debridement Measurements/Treatment WC - Nurse 1 - General Ulcer Assessment Start: 09/13/23 10:02 Freq: Status: Active Protocol: GWEN Activity Type Activity Date Activity User E-sign Co-sign Detail Recorded Client Recorded Date Recorded By Document 09/20/23 09:55 RB Desktop 09/20/23 09:58 RB 09/20/23 09:55 - Today's Visit Information Type of service Follow-up Visit (Physician/[employer] PHOTO INSPECTOR ) Arrival Mode Ambulatory Transfer Assistance None Patient Identification Verified (Name & Yes ) Patient Requires Transmission-Based No Precautions Finger Stick Blood Sugar(mg/dl) (if 100 indicated): Blood Sugar Stated by Patient Height and Weight Body Mass Index (BMI) 33.9 BMI Classification Obese Vital Signs Temperature (97.8 F-99.1 F) 97 F L Temperature Source Temporal Pulse Rate (60-100) 88 Pulse Location Monitor Respiratory Rate (12-18) 18 Respiratory rate source Observation Blood Pressure (90/60-120/80) 135/71 H Blood Pressure Mean (mm Hg) 92 Source Monitor Position Semi-Fowlers Blood Pressure Location Left Arm History Since Last Visit- (Skip if this is Patient's initial visit) Have you changed medications since your No last visit? Any new allergies or adverse reactions No Had a fall/change in ADL's that may No increase risk of falls Signs or symptoms of abuse and/or No neglect since last visit Have you been in the hospital since your No last visit? Has dressing in place as prescribed Yes Has compression in place as prescribed Yes Has offloadiing in place as prescribed No Experienced any changes in pain level or No management Pain Scale: 0-10 Numeric Is Patient Pain Free? Yes - Nurse 1 - General Ulcer Measurement Start: 09/13/23 10:02 Freq: Status: Active Protocol: Activity Type Activity Date Activity User E-sign Co-sign Detail Recorded Client Recorded Date Recorded By Document 09/20/23 09:55 RB Desktop 09/20/23 09:58 RB 09/20/23 09:55 Wound Center Nurse 1 7. L lateral ankle -Combined with other wound No -Current Size (cm) - Length 4.2 -Current Size (cm) - Width 1 -Current Size (cm) - Depth 3 -Total Square Cm 4.2 -Tunneling No -Undermining/Tunneling No -Circular Undermining No -Exudate Amt Large -Exudate Type Serosanguineous -Wound Margin Distinct, Outline Attached -Granulation Amt Medium (34-66%) -Granulation Quality [place] -Slough/Fibrin Yes -Necrosis Amt Medium (34-66%) -Necrotic Tissue Type Adherent Slough -Structure Exposed N/A -Texture ([place]-wound Skin Appearance) Assessed, Scarring -Moisture ([place]-wound Skin Appearance) Assessed -Color ([place]-wound Skin Appearance) Assessed -Temperature ([place]-wound Skin No Abnormality Appearance) (Pt Warm) -Tenderness on Palpation ([place]-wound No Skin Appearance) -Ulcer Cleansing Wound Cleanser -Foul Odor after Cleansing Yes 6. L medial ankle -Combined with other wound No -Current Size (cm) - Length 1.4 -Current Size (cm) - Width 0.5 -Current Size (cm) - Depth 0.5 -Total Square Cm 0.70 -Tunneling No -Undermining/Tunneling No -Circular Undermining No -Exudate Amt Medium -Exudate Type Serosanguineous -Wound Margin Distinct, Outline Attached -Granulation Amt Medium (34-66%) -Granulation Quality [place] -Slough/Fibrin Yes -Necrosis Amt Medium (34-66%) -Necrotic Tissue Type Adherent Slough -Structure Exposed N/A -Texture ([place]-wound Skin Appearance) Assessed, Scarring -Moisture ([place]-wound Skin Appearance) Assessed -Color ([place]-wound Skin Appearance) Assessed -Temperature ([place]-wound Skin No Abnormality Appearance) (Pt Warm) -Tenderness on Palpation ([place]-wound No Skin Appearance) -Ulcer Cleansing Wound Cleanser -Foul Odor after Cleansing No -Anesthetic Used 4% Lidocaine Solution Lower Limb Edema Present Yes Left Calf (cm) 34 Left Ankle (cm) 26 WC - Nurse 2 - General Ulcer CM Notes Start: 09/13/23 10:02 Freq: Status: Active Protocol: Activity Type Activity Date Activity User E-sign Co-sign Detail Recorded Client Recorded Date Recorded By Document 09/20/23 10:17 Laptop 09/20/23 10:26 09/20/23 10:17 Wound Center Nurse 2 7. L lateral ankle -Time 10:17 -Correct Patient Yes -Correct Side, Site, Position Yes -Correct Procedure Yes -Procedure Performed Yes -Type of Procedure Debridement -Clinical Debridement Muscle / Fascia -Tissue Removed Muscle,Fascia -Post Debridement (cm) - Length 4.7 -Post Debridement (cm) - Width 1.2 -Post Debridement (cm) - Depth 3.1 -Total Square (Post) (cm) 5.64 -Area of Debridement (cm) - Length 4.7 -Area of Debridement (cm) - Width 1.2 -Total Square (Area) (cm) 5.64 -Tunneling No -Undermining/Tunneling No -Circular Undermining No -Wound/Ulcer Outcome Not Healed -Ulcer Cleansing Rinsed/ Irrigated with Saline -Foul Odor after Cleansing No -Bioengineered Tissue No -Bleeding Controlled with Pressure -Treatment Response Procedure Tolerated Well -Offloading No -Assistive Device(s) Wheelchair, Walker -Debridement - Subq, 1st 20sq cm No -Debridement - Muscle / Fascia, 1st No 20sq cm 6. L medial ankle -Time 10:18 -Correct Patient Yes -Correct Side, Site, Position Yes -Correct Procedure Yes -Procedure Performed Yes -Type of Procedure Debridement -Clinical Debridement Muscle / Fascia -Tissue Removed Muscle,Fascia -Post Debridement (cm) - Length 1.7 -Post Debridement (cm) - Width 0.5 -Post Debridement (cm) - Depth 0.6 -Total Square (Post) (cm) 0.85 -Area of Debridement (cm) - Length 1.7 -Area of Debridement (cm) - Width 0.5 -Total Square (Area) (cm) 0.85 -Tunneling No -Undermining/Tunneling No -Circular Undermining No -Wound/Ulcer Outcome Not Healed -Ulcer Cleansing Rinsed/ Irrigated with Saline -Foul Odor after Cleansing No -Bioengineered Tissue No -Bleeding Controlled with Pressure -Treatment Response Procedure Tolerated Well -Offloading No -Assistive Device(s) Wheelchair -Debridement - Subq, 1st 20sq cm No -Debridement - Muscle / Fascia, 1st Yes 20sq cm Pain Scale: 0-10 Numeric Is Patient Pain Free? Yes WC - Nurse 3 - General Ulcer D/C NN Start: 09/13/23 10:02 Freq: Status: Active Protocol: Activity Type Activity Date Activity User E-sign Co-sign Detail Recorded Client Recorded Date Recorded By Document 09/20/23 10:30 RB Desktop 09/20/23 10:31 RB 09/20/23 10:30 Wound Care Center Nurse 3 7. L lateral ankle -Other Dressing dakins moistened gauze -Primary Dressing Covered/Secured with Dry Gauze,Dry Gauze & Roll Gauze,Secured with Tape 6. L medial ankle -Other Dressing dakins moistened gauze -Primary Dressing Covered/Secured with Dry Gauze,Dry Gauze & Roll Gauze,Secured with Tape Left -Tubular Bandage Double Layer -Size of Tubigrip Used Size E -Size E ($) 2 Treatment Response Procedure Tolerated Well Pain Scale: 0-10 Numeric Is Patient Pain Free? Yes WC - Visit Discharge Discharge Condition Stable Ambulatory Status Wheelchair Transportation Private Auto Accompanied by step father Medication Reconcilliation completed & No provided to patient/care provider Clinical Summary of Care Provided Yes Assessment/Plan Assessment/Plan (1) Osteomyelitis of ankle, left, acute: CODE(S): M86.172 - Other acute osteomyelitis, left ankle and foot PLAN: Exam performed Patient on IV meropenem via PICC line per infectious disease for enterococcal and pseudomonal infection left lower extremity with bone involvement Patient is status post Charcot reconstruction. This is a limb salvage case Today left lower extremity wound to lateral ankle was debrided down to and including level of muscle excisionally using a 5 mm dermal curette without incident. No anesthesia due to neuropathy. Hemostasis obtained with light compression. Patient tolerated procedure well. Pre and postdebridement measurements documented nursing notes. Patient will receive 3 times a week wound packing with Dakin's wet-to-dry and overlying multilayer compression wrap. Wound dressing in the wound care center followed by 2 dressings to performed by home health care Patient follows up weekly Patient nonweightbearing left lower extremity Patient received HBO therapy 2 times, wound significantly improved today. Blood sugar well-controlled (2) Charcot foot due to diabetes mellitus: CODE(S): E11.610 - 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 arthropathy (3) Abscess of bursa, left ankle and foot: CODE(S): M71.072 - Abscess of bursa, left ankle and foot (4) Cellulitis of left lower limb: CODE(S): L03.116 - Cellulitis of left lower limb (5) Non-pressure chronic ulcer of left 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: CODE(S): L97.322 - Non-pressure chronic ulcer of left 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 (6) Type 2 diabetes mellitus with diabetic polyneuropathy: CODE(S): E11.42 - Type 2 diabetes mellitus with diabetic polyneuropathy QUALIFIERS: Diabetes mellitus longterm insulin use: without intermediate card tender use Qualified Code(s): E11.42 - Type 2 diabetes mellitus with diabetic polyneuropathy (7) 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 bone: CODE(S): L97.524 - 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 bone (8) 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 muscle: CODE(S): L97.523 - 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 muscle (9) Diabetic infection of left foot: CODE(S): E11.628 - Type 2 diabetes mellitus with other skin complications; L08.9 - Local infection of the skin and subcutaneous tissue, unspecified (10) Cellulitis: CODE(S): L03.90 - Cellulitis, unspecified QUALIFIERS: Site of cellulitis: extremity Site of cellulitis of extremity: lower extremity Laterality: left Qualified Code(s): L03.116 - Cellulitis of left lower limb PLAN: Plan The patient appears to be tolerating hyperbaric oxygen therapy well, and has completed his third hyperbaric oxygen therapy session. Hyperbaric oxygen therapy will be continued as per the patient's medical treatment plan, anticipating a total of 30 such sessions.
--- NOTE | 2023-09-20 14:11 | ART_ITS ---
Reason For Study: LE Wounds Procedure A bilateral lower extremity continuous wave Doppler with analog waveform analysis,segmental pressures,and ankle brachial indexes without exercise. Left Segmental Pressures Left posterior tibial artery = >254mmHg. Left dorsalis pedis artery = >254mmHg. Left digit = 65 mmHg. The left posterior tibial artery waveforms are triphasic. The left dorsalis pedis waveforms are triphasic. Right Segmental Pressures Right brachial= 118mmHg. Right posterior tibial artery = 138mmHg. Right dorsalis pedis artery = 125mmHg. Right digit = 65 mmHg. The right posterior tibial artery waveforms are triphasic. The right dorsalis pedis waveforms are triphasic. Indices The right ankle brachial index by the posterior tibial artery is 1.17. The right ankle brachial index by the dorsalis pedis is 1.06. The right digital-brachial index is 0.55. The left ankle brachial index by the posterior tibial artery is N/C. The left ankle brachial index by the dorsalis pedis is N/C. The left digital-brachial index is 0.55. VL/Lower Ext Art Exam w/o Exercis Interpretation Summary Triphasic Doppler waveforms are noted at ankle level bilaterally. Pulse-volume recordings appear satisfactory bilaterally. The resting right ankle-brachial index is normal. The resting left ankle- brachial index could not be determined due to the non-compressibility of the va sculature at ankle level on the left. Digital-brachial indices are mildly diminished bilaterally. Arterial flow appears normal at ankle level bilaterally. There is evidence of a rterial calcification at ankle level on the left. There is evidence of mild arterial occlusive diseas e at digital level bilaterally. Ordering Physician: Sam Ray Referring Physician: SAM RAY MD Performed By: Marty Lackey RVT
[2023-09-21 12:42] LABS: Bedside Glucose 147 mg/dL (74-106)
--- NOTE | 2023-09-21 13:16 | PCM.HBO.PN ---
History of Present Illness Date of Service: 09/21/23 Chief Complaint: Diabetic left foot infection with gas gangrene and osteomyelitis; Li grade 3 diabetic foot infection. History of Wound: This is a 43-year-old male with a history of diabetic foot pathology and infections. On July 15, 2023, the patient underwent reconstruction of the left Charcot foot deformity by means of a left ankle arthrodesis, subtalar joint arthrodesis, midfoot osteotomy with percutaneous pinning, and application of the left lower extremity splint. He subsequently developed left foot and ankle abscess, with full-thickness wounds and osteomyelitis of the left ankle. On September 01, 2023, he underwent incision and drainage of an abscess down to bone, and wound site debridement and wound bed preparation for delayed skin graft application. With respect to his osteomyelitis, the patient is receiving meropenem 3 times daily intravenously for Enterococcus and Pseudomonas infection by means of a PICC line which is located in his left upper arm. He is receiving home health care. Wound care is by means of packing with Dakin's moist to dry dressings, as his surgical wound is only partially closed. A multilayer compression wrap is being used to minimize swelling. The patient is nonweightbearing. He is felt to be in a limb threatening situation, and was referred for evaluation as a prelude to implementing hyperbaric oxygen therapy for Li grade 3 diabetic foot wound with osteomyelitis. A thorough review of systems was undertaken. The patient has no history of pulmonary or otitic barotrauma. In fact, he has previously undergone hyperbaric oxygen therapy sessions in the past, approximately 10 years ago, for diabetic right foot infection. He tolerated hyperbaric oxygen therapy well at that time without incident. 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 His history is negative for seizures and seizure disorder. Pulmonary history is negative. Cardiac history is negative. The patient has no history of renal disease. He has no history of anemia or other hemopoietic abnormalities. There is no history of endocrine problems. He is not a smoker. Recent x-ray reveals moderate lung volumes. Increased AP dimension of the chest. Subsegmental atelectasis suggested in the left lung base. No definite inflammatory infiltrates. No effusions. Mild cardiac enlargement. Normal mediastinum and michelle. Normal visualized pulmonary arteries. Normal visualized aortic arch and descending thoracic aorta. An EKG reveals normal sinus rhythm and is interpreted as a normal EKG. Laboratory results have been reviewed, without any outstanding significant abnormalities. Subjective Subjective The patient presented for his 4th hyperbaric oxygen session today. The patient is scheduled for 30 such sessions. Tolerance of hyperbaric oxygen therapy: Hyperbaric oxygen therapy was provided as per the facility's protocol. Hyperbaric oxygen therapy was undertaken at 2 krzysztof and 100% oxygen for 90 minutes without air breaks. The patient tolerated hyperbaric oxygen therapy well, without complications or complaints. Upon emergence from the hyperbaric chamber, the patient's vital signs remained stable. Blood sugar levels were monitored, and found to be satisfactory. Objective Data Objective Data Vital Signs: Vital Signs Temp Pulse Resp BP O2 Flow Rate 95.7 F L 90 18 121/71 H 99 09/20/23 11:04 09/20/23 11:04 09/20/23 11:04 09/20/23 11:04 09/08/23 00:33 Oxygen Flow Rate (L/min) 99 Weight: 250 lb Body Mass Index (BMI) 33.9 Lab / Micro Data Labs: Laboratory Results - last 24 hr 09/21/23 12:25: POC Glucose 147 H Radiography Diagnostic Testing: Radiology Impression Extremity Arterial Study 09/20/23 14:11 Interpretation Summary Triphasic Doppler waveforms are noted at ankle level bilaterally. Pulse-volume recordings appear satisfactory bilaterally. The resting right ankle-brachial index is normal. The resting left ankle- brachial index could not be determined due to the non-compressibility of the vasculature at ankle level on the left. Digital-brachial indices are mildly diminished bilaterally. Arterial flow appears normal at ankle level bilaterally. There is evidence of arterial calcification at ankle level on the left. There is evidence of mild arterial occlusive disease at digital level bilaterally. Ordering Physician: Sam Flor Referring Physician: SAM FLOR MD Performed By: Marty Lackey RVT Exam Physical Exam Const alert General Appearance: cooperative HEENT normocephalic Chest inspection of chest normal Resp normal respiratory effort and normal air movement Effort and Inspection: able to speak in complete sentences; Negative for respiratory distress Cardio regular rate and regular rhythm Neuro Speech: speech normal Nursing Assessment and Debridement Post-Debridement Measurements and Additional Note: Post-Debridement Measurements/Treatment - Nurse 1 - General Ulcer Assessment Start: 09/13/23 10:02 Freq: Status: Active Protocol: GWEN Activity Type Activity Date Activity User E-sign Co-sign Detail Recorded Client Recorded Date Recorded By Document 09/20/23 09:55 RB Desktop 09/20/23 09:58 RB 09/20/23 09:55 WC - Today's Visit Information Type of service Follow-up Visit (Physician/TELEPHONE ORDER CLERK ROOM SERVICE ) Arrival Mode Ambulatory Transfer Assistance None Patient Identification Verified (Name & Yes ) Patient Requires Transmission-Based No Precautions Finger Stick Blood Sugar(mg/dl) (if 100 indicated): Blood Sugar Stated by Patient Height and Weight Body Mass Index (BMI) 33.9 BMI Classification Obese Vital Signs Temperature (97.8 F-99.1 F) 97 F L Temperature Source Temporal Pulse Rate (60-100) 88 Pulse Location Monitor Respiratory Rate (12-18) 18 Respiratory rate source Observation Blood Pressure (90/60-120/80) 135/71 H Blood Pressure Mean (mm Hg) 92 Source Monitor Position Semi-Fowlers Blood Pressure Location Left Arm History Since Last Visit- (Skip if this is Patient's initial visit) Have you changed medications since your No last visit? Any new allergies or adverse reactions No Had a fall/change in ADL's that may No increase risk of falls Signs or symptoms of abuse and/or No neglect since last visit Have you been in the hospital since your No last visit? Has dressing in place as prescribed Yes Has compression in place as prescribed Yes Has offloadiing in place as prescribed No Experienced any changes in pain level or No management Pain Scale: 0-10 Numeric Is Patient Pain Free? Yes - Nurse 1 - General Ulcer Measurement Start: 09/13/23 10:02 Freq: Status: Active Protocol: Activity Type Activity Date Activity User E-sign Co-sign Detail Recorded Client Recorded Date Recorded By Document 09/20/23 09:55 RB Youmiamktop 09/20/23 09:58 RB 09/20/23 09:55 Wound Center Nurse 1 7. L lateral ankle -Combined with other wound No -Current Size (cm) - Length 4.2 -Current Size (cm) - Width 1 -Current Size (cm) - Depth 3 -Total Square Cm 4.2 -Tunneling No -Undermining/Tunneling No -Circular Undermining No -Exudate Amt Large -Exudate Type Serosanguineous -Wound Margin Distinct, Outline Attached -Granulation Amt Medium (34-66%) -Granulation Quality Landing -Slough/Fibrin Yes -Necrosis Amt Medium (34-66%) -Necrotic Tissue Type Adherent Slough -Structure Exposed N/A -Texture ([place]-wound Skin Appearance) Assessed, Scarring -Moisture ([place]-wound Skin Appearance) Assessed -Color ([place]-wound Skin Appearance) Assessed -Temperature ([place]-wound Skin No Abnormality Appearance) (Pt Warm) -Tenderness on Palpation ([place]-wound No Skin Appearance) -Ulcer Cleansing Wound Cleanser -Foul Odor after Cleansing Yes 6. L medial ankle -Combined with other wound No -Current Size (cm) - Length 1.4 -Current Size (cm) - Width 0.5 -Current Size (cm) - Depth 0.5 -Total Square Cm 0.70 -Tunneling No -Undermining/Tunneling No -Circular Undermining No -Exudate Amt Medium -Exudate Type Serosanguineous -Wound Margin Distinct, Outline Attached -Granulation Amt Medium (34-66%) -Granulation Quality Landing -Slough/Fibrin Yes -Necrosis Amt Medium (34-66%) -Necrotic Tissue Type Adherent Slough -Structure Exposed N/A -Texture ([place]-wound Skin Appearance) Assessed, Scarring -Moisture ([place]-wound Skin Appearance) Assessed -Color ([place]-wound Skin Appearance) Assessed -Temperature ([place]-wound Skin No Abnormality Appearance) (Pt Warm) -Tenderness on Palpation ([place]-wound No Skin Appearance) -Ulcer Cleansing Wound Cleanser -Foul Odor after Cleansing No -Anesthetic Used 4% Lidocaine Solution Lower Limb Edema Present Yes Left Calf (cm) 34 Left Ankle (cm) 26 WC - Nurse 2 - General Ulcer CM Notes Start: 09/13/23 10:02 Freq: Status: Active Protocol: Activity Type Activity Date Activity User E-sign Co-sign Detail Recorded Client Recorded Date Recorded By Document 09/20/23 10:17 Laptop 02/13/24 10:26 09/20/23 10:17 Wound Center Nurse 2 7. L lateral ankle -Time 10:17 -Correct Patient Yes -Correct Side, Site, Position Yes -Correct Procedure Yes -Procedure Performed Yes -Type of Procedure Debridement -Clinical Debridement Muscle / Fascia -Tissue Removed Muscle,Fascia -Post Debridement (cm) - Length 4.7 -Post Debridement (cm) - Width 1.2 -Post Debridement (cm) - Depth 3.1 -Total Square (Post) (cm) 5.64 -Area of Debridement (cm) - Length 4.7 -Area of Debridement (cm) - Width 1.2 -Total Square (Area) (cm) 5.64 -Tunneling No -Undermining/Tunneling No -Circular Undermining No -Wound/Ulcer Outcome Not Healed -Ulcer Cleansing Rinsed/ Irrigated with Saline -Foul Odor after Cleansing No -Bioengineered Tissue No -Bleeding Controlled with Pressure -Treatment Response Procedure Tolerated Well -Offloading No -Assistive Device(s) Wheelchair, Walker -Debridement - Subq, 1st 20sq cm No -Debridement - Muscle / Fascia, 1st No 20sq cm 6. L medial ankle -Time 10:18 -Correct Patient Yes -Correct Side, Site, Position Yes -Correct Procedure Yes -Procedure Performed Yes -Type of Procedure Debridement -Clinical Debridement Muscle / Fascia -Tissue Removed Muscle,Fascia -Post Debridement (cm) - Length 1.7 -Post Debridement (cm) - Width 0.5 -Post Debridement (cm) - Depth 0.6 -Total Square (Post) (cm) 0.85 -Area of Debridement (cm) - Length 1.7 -Area of Debridement (cm) - Width 0.5 -Total Square (Area) (cm) 0.85 -Tunneling No -Undermining/Tunneling No -Circular Undermining No -Wound/Ulcer Outcome Not Healed -Ulcer Cleansing Rinsed/ Irrigated with Saline -Foul Odor after Cleansing No -Bioengineered Tissue No -Bleeding Controlled with Pressure -Treatment Response Procedure Tolerated Well -Offloading No -Assistive Device(s) Wheelchair -Debridement - Subq, 1st 20sq cm No -Debridement - Muscle / Fascia, 1st Yes 20sq cm Pain Scale: 0-10 Numeric Is Patient Pain Free? Yes WC - Nurse 3 - General Ulcer D/C NN Start: 09/13/23 10:02 Freq: Status: Active Protocol: Activity Type Activity Date Activity User E-sign Co-sign Detail Recorded Client Recorded Date Recorded By Document 09/20/23 10:30 RB Desktop 09/20/23 10:31 RB 09/20/23 10:30 Wound Care Center Nurse 3 7. L lateral ankle -Other Dressing dakins moistened gauze -Primary Dressing Covered/Secured with Dry Gauze,Dry Gauze & Roll Gauze,Secured with Tape 6. L medial ankle -Other Dressing dakins moistened gauze -Primary Dressing Covered/Secured with Dry Gauze,Dry Gauze & Roll Gauze,Secured with Tape Left -Tubular Bandage Double Layer -Size of Tubigrip Used Size E -Size E ($) 2 Treatment Response Procedure Tolerated Well Pain Scale: 0-10 Numeric Is Patient Pain Free? Yes WC - Visit Discharge Discharge Condition Stable Ambulatory Status Wheelchair Transportation Private Auto Accompanied by step father Medication Reconcilliation completed & No provided to patient/care provider Clinical Summary of Care Provided Yes Assessment/Plan Assessment/Plan (1) Osteomyelitis of ankle or foot, left, acute: CODE(S): M86.172 - Other acute osteomyelitis, left ankle and foot (2) Osteomyelitis of ankle, left, acute: CODE(S): M86.172 - Other acute osteomyelitis, left ankle and foot (3) Abscess of bursa, left ankle and foot: CODE(S): M71.072 - Abscess of bursa, left ankle and foot (4) Cellulitis of left lower limb: CODE(S): L03.116 - Cellulitis of left lower limb (5) Charcot foot due to diabetes mellitus: CODE(S): E11.610 - 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 arthropathy (6) Non-pressure chronic ulcer of left 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: CODE(S): L97.322 - Non-pressure chronic ulcer of left 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 (7) Other acute postprocedural pain: CODE(S): G89.18 - Other acute postprocedural pain (8) Type 2 diabetes mellitus with diabetic polyneuropathy: CODE(S): E11.42 - Type 2 diabetes mellitus with diabetic polyneuropathy QUALIFIERS: Diabetes mellitus intermodal truck driver insulin use: without intermodal truck driver use Qualified Code(s): E11.42 - Type 2 diabetes mellitus with diabetic polyneuropathy (9) 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 muscle: CODE(S): L97.523 - 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 muscle (10) Gas gangrene of foot: CODE(S): A48.0 - Gas gangrene (11) Diabetic infection of left foot: CODE(S): E11.628 - Type 2 diabetes mellitus with other skin complications; L08.9 - Local infection of the skin and subcutaneous tissue, unspecified (12) 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 bone: CODE(S): L97.524 - 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 bone (13) 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 muscle: CODE(S): L97.523 - 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 muscle (14) Cellulitis: CODE(S): L03.90 - Cellulitis, unspecified QUALIFIERS: Laterality: left Site of cellulitis: extremity Site of cellulitis of extremity: lower extremity Qualified Code(s): L03.116 - Cellulitis of left lower limb (15) Hypertension: CODE(S): I10 - Essential (primary) hypertension QUALIFIERS: Hypertension type: primary hypertension Qualified Code(s): I10 - Essential (primary) hypertension PLAN: Plan The patient appears to be tolerating hyperbaric oxygen therapy well, which will be continued as per their medical treatment plan.
[2023-09-21 14:44] VITALS: BP 118/78; BP 121/75; PULSE 91; PULSE 94; RESP 18; TEMP 36.4; TEMP 36.6
[2023-09-21 14:47] LABS: Bedside Glucose 144 mg/dL (74-106)
[2023-09-22 12:47] LABS: Bedside Glucose 163 mg/dL (74-106)
[2023-09-22 12:50] VITALS: BP 122/71; BP 135/80; PULSE 87; PULSE 95; RESP 18; TEMP 36.1; TEMP 36.2
[2023-09-22 14:52] LABS: Bedside Glucose 177 mg/dL (74-106)
--- NOTE | 2023-09-23 10:38 | HBO.PN.PCM_ITS ---
History of Present Illness Date of Service: 09/23/23 Chief Complaint: Diabetic left foot infection with gas gangrene and osteom yelitis; Li grade 3 diabetic foot infection. History of Wound: This is a 43-year-old male with a history of diabetic foot pathology and infections. On July 15, 2023, the patient underwent reconstruction of the left Charcot foot deformity by means of a left ankle arthrodesis, subtalar joint arthrodesis, midfoot osteotomy with percutaneous pinning, and application of the left lower extremity splint. He subsequently developed left foot and ankle abscess, with full-thickness wounds and osteomyelitis of the left ankle. On September 01, 2023, he underwent incision and drainage of an abscess down to bone, and wound site debridement and wound bed preparation for delayed skin graft application. With respect to his osteomyelitis, the patient is receiving meropenem 3 times daily intravenously for Enterococcus and Pseudomonas infection by means of a PICC line which is located in his left upper arm. He is receiving home health care. Wound care is by means of packing with Dakin's moist to dry dressings, as his surgical wound is only partially closed. A multilayer compression wrap is being used to minimize swelling. The patient is nonweightbearing. He is felt to be in a limb threatening situation, and was referred for evaluation as a prelude to implementing hyperbaric oxygen therapy for Li grade 3 diabetic foot wound with osteomyelitis. A thorough review of systems was undertaken. The patient has no history of pulmonary or otitic barotrauma. In fact, he has previously undergone hyperbaric oxygen therapy sessions in the past, approximately 10 years ago, for diabetic right foot infection. He tolerated hyperbaric oxygen therapy well at that time without incident. 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 His history is negative for seizures and seizure disorder. Pulmonary history is negative. Cardiac history is negative. The patient has no history of renal disease. He has no history of anemia or other hemopoietic abnormalities. There is no history of endocrine problems. He is not a smoker. Recent x-ray reveals moderate lung volumes. Increased AP dimension of the chest. Subsegmental atelectasis suggested in the left lung base. No definite inflammatory infiltrates. No effusions. Mild cardiac enlargement. Normal mediastinum and michelle. Normal visualized pulmonary arteries. Normal visualized aortic arch and descending thoracic aorta. An EKG reveals normal sinus rhythm and is interpreted as a normal EKG. Laboratory results have been reviewed, without any outstanding significant abnormalities. Progress of Wound: Serial monitoring of the patient's wound is underway by Dr. Perkins, podiatric specialist. Subjective Subjective The patient presented for his 6th hyperbaric oxygen session today. The patient is scheduled for 30 such sessions. Tolerance of hyperbaric oxygen therapy: Hyperbaric oxygen therapy was provided as per the facility's protocol. Hyperbaric oxygen therapy was undertaken at 2 krzysztof and 100% oxygen for 90 minutes without air breaks. The patient tolerated hyperbaric oxygen therapy well, without complications or complaints. Upon emergence from the hyperbaric chamber, the patient's vital signs remained stable. Blood sugar levels were monitored, and found to be satisfactory. Objective Data Objective Data Vital Signs: Vital Signs Temp Pulse Resp BP O2 Flow Rate 97.2 F L 95 18 135/80 H 99 09/22/23 12:50 09/22/23 12:50 09/22/23 12:50 09/22/23 12:50 09/08/23 00:33 Oxygen Flow Rate (L/min) 99 Weight: 113.398 kg Body Mass Index (BMI) 33.9 Lab / Micro Data Labs: Laboratory Results - last 24 hr 09/22/23 12:28: POC Glucose 163 H 09/22/23 14:27: POC Glucose 177 H Exam Physical Exam Const alert, oriented x3 and no apparent distress Psych mental status grossly normal, thought process normal, cooperative, affect normal and speech normal Nursing Assessment and Debridement Post-Debridement Measurements and Additional Note: Post-Debridement Measurements/Treatment - Nurse 1 - General Ulcer Assessment Start: 09/13/23 10:02 Freq: Status: Active Protocol: WC.LOWEXT Activity Type Activity Date Activity User E-sign Co-sign Detail Recorded Client Recorded Date Recorded By Document 09/20/23 09:55 Desktop 09/20/23 09:58 RB 09/20/23 09:55 - Today's Visit Information Type of service 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 ) Arrival Mode Ambulatory Transfer Assistance None Patient Identification Verified (Name & Yes ) Patient Requires Transmission-Based No Precautions Finger Stick Blood Sugar(mg/dl) (if 100 indicated): Blood Sugar Stated by Patient Height and Weight Body Mass Index (BMI) 33.9 BMI Classification Obese Vital Signs Temperature (97.8 F-99.1 F) 97 F L Temperature Source Temporal Pulse Rate (60-100) 88 Pulse Location Monitor Respiratory Rate (12-18) 18 Respiratory rate source Observation Blood Pressure (90/60-120/80) 135/71 H Blood Pressure Mean (mm Hg) 92 Source Monitor Position Semi-Fowlers Blood Pressure Location Left Arm History Since Last Visit- (Skip if this is Patient's initial visit) Have you changed medications since your No last visit? Any new allergies or adverse reactions No Had a fall/change in ADL's that may No increase risk of falls Signs or symptoms of abuse and/or No neglect since last visit Have you been in the hospital since your No last visit? Has dressing in place as prescribed Yes Has compression in place as prescribed Yes Has offloadiing in place as prescribed No Experienced any changes in pain level or No management Pain Scale: 0-10 Numeric Is Patient Pain Free? Yes WC - Nurse 1 - General Ulcer Measurement Start: 09/13/23 10:02 Freq: Status: Active Protocol: Activity Type Activity Date Activity User E-sign Co-sign Detail Recorded Client Recorded Date Recorded By Document 09/20/23 09:55 RB Desktop 09/20/23 09:58 RB 09/20/23 09:55 Wound Center Nurse 1 7. L lateral ankle -Combined with other wound No -Current Size (cm) - Length 4.2 -Current Size (cm) - Width 1 -Current Size (cm) - Depth 3 -Total Square Cm 4.2 -Tunneling No -Undermining/Tunneling No -Circular Undermining No -Exudate Amt Large -Exudate Type Serosanguineous -Wound Margin Distinct, Outline Attached -Granulation Amt Medium (34-66%) -Granulation Quality Metaline -Slough/Fibrin Yes -Necrosis Amt Medium (34-66%) -Necrotic Tissue Type Adherent Slough -Structure Exposed N/A -Texture ([place]-wound Skin Appearance) Assessed, Scarring -Moisture ([place]-wound Skin Appearance) Assessed -Color ([place]-wound Skin Appearance) Assessed -Temperature ([place]-wound Skin No Abnormality Appearance) (Pt Warm) -Tenderness on Palpation ([place]-wound No Skin Appearance) -Ulcer Cleansing Wound Cleanser -Foul Odor after Cleansing Yes 6. L medial ankle -Combined with other wound No -Current Size (cm) - Length 1.4 -Current Size (cm) - Width 0.5 -Current Size (cm) - Depth 0.5 -Total Square Cm 0.70 -Tunneling No -Undermining/Tunneling No -Circular Undermining No -Exudate Amt Medium -Exudate Type Serosanguineous -Wound Margin Distinct, Outline Attached -Granulation Amt Medium (34-66%) -Granulation Quality Metaline -Slough/Fibrin Yes -Necrosis Amt Medium (34-66%) -Necrotic Tissue Type Adherent Slough -Structure Exposed N/A -Texture ([place]-wound Skin Appearance) Assessed, Scarring -Moisture ([place]-wound Skin Appearance) Assessed -Color ([place]-wound Skin Appearance) Assessed -Temperature ([place]-wound Skin No Abnormality Appearance) (Pt Warm) -Tenderness on Palpation ([place]-wound No Skin Appearance) -Ulcer Cleansing Wound Cleanser -Foul Odor after Cleansing No -Anesthetic Used 4% Lidocaine Solution Lower Limb Edema Present Yes Left Calf (cm) 34 Left Ankle (cm) 26 WC - Nurse 2 - General Ulcer CM Notes Start: 09/13/23 10:02 Freq: Status: Active Protocol: Activity Type Activity Date Activity User E-sign Co-sign Detail Recorded Client Recorded Date Recorded By Document 09/20/23 10:17 Laptop 09/20/23 10:26 09/20/23 10:17 Wound Center Nurse 2 7. L lateral ankle -Time 10:17 -Correct Patient Yes -Correct Side, Site, Position Yes -Correct Procedure Yes -Procedure Performed Yes -Type of Procedure Debridement -Clinical Debridement Muscle / Fascia -Tissue Removed Muscle,Fascia -Post Debridement (cm) - Length 4.7 -Post Debridement (cm) - Width 1.2 -Post Debridement (cm) - Depth 3.1 -Total Square (Post) (cm) 5.64 -Area of Debridement (cm) - Length 4.7 -Area of Debridement (cm) - Width 1.2 -Total Square (Area) (cm) 5.64 -Tunneling No -Undermining/Tunneling No -Circular Undermining No -Wound/Ulcer Outcome Not Healed -Ulcer Cleansing Rinsed/ Irrigated with Saline -Foul Odor after Cleansing No -Bioengineered Tissue No -Bleeding Controlled with Pressure -Treatment Response Procedure Tolerated Well -Offloading No -Assistive Device(s) Wheelchair, Walker -Debridement - Subq, 1st 20sq cm No -Debridement - Muscle / Fascia, 1st No 20sq cm 6. L medial ankle -Time 10:18 -Correct Patient Yes -Correct Side, Site, Position Yes -Correct Procedure Yes -Procedure Performed Yes -Type of Procedure Debridement -Clinical Debridement Muscle / Fascia -Tissue Removed Muscle,Fascia -Post Debridement (cm) - Length 1.7 -Post Debridement (cm) - Width 0.5 -Post Debridement (cm) - Depth 0.6 -Total Square (Post) (cm) 0.85 -Area of Debridement (cm) - Length 1.7 -Area of Debridement (cm) - Width 0.5 -Total Square (Area) (cm) 0.85 -Tunneling No -Undermining/Tunneling No -Circular Undermining No -Wound/Ulcer Outcome Not Healed -Ulcer Cleansing Rinsed/ Irrigated with Saline -Foul Odor after Cleansing No -Bioengineered Tissue No -Bleeding Controlled with Pressure -Treatment Response Procedure Tolerated Well -Offloading No -Assistive Device(s) Wheelchair -Debridement - Subq, 1st 20sq cm No -Debridement - Muscle / Fascia, 1st Yes 20sq cm Pain Scale: 0-10 Numeric Is Patient Pain Free? Yes - Nurse 3 - General Ulcer D/C NN Start: 09/13/23 10:02 Freq: Status: Active Protocol: Activity Type Activity Date Activity User E-sign Co-sign Detail Recorded Client Recorded Date Recorded By Document 09/20/23 10:30 RB Desktop 09/20/23 10:31 RB 09/20/23 10:30 Wound Care Center Nurse 3 7. L lateral ankle -Other Dressing dakins moistened gauze -Primary Dressing Covered/Secured with Dry Gauze,Dry Gauze & Roll Gauze,Secured with Tape 6. L medial ankle -Other Dressing dakins moistened gauze -Primary Dressing Covered/Secured with Dry Gauze,Dry Gauze & Roll Gauze,Secured with Tape Left -Tubular Bandage Double Layer -Size of Tubigrip Used Size E -Size E ($) 2 Treatment Response Procedure Tolerated Well Pain Scale: 0-10 Numeric Is Patient Pain Free? Yes WC - Visit Discharge Discharge Condition Stable Ambulatory Status Wheelchair Transportation Private Auto Accompanied by step father Medication Reconcilliation completed & No provided to patient/care provider Clinical Summary of Care Provided Yes Assessment/Plan Assessment/Plan (1) Osteomyelitis of ankle or foot, left, acute: CODE(S): M86.172 - Other acute osteomyelitis, left ankle and foot (2) Osteomyelitis of ankle, left, acute: CODE(S): M86.172 - Other acute osteomyelitis, left ankle and foot (3) Abscess of bursa, left ankle and foot: CODE(S): M71.072 - Abscess of bursa, left ankle and foot (4) Cellulitis of left lower limb: CODE(S): L03.116 - Cellulitis of left lower limb (5) Charcot foot due to diabetes mellitus: CODE(S): E11.610 - 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 arthropathy (6) Non-pressure chronic ulcer of left 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: CODE(S): L97.322 - Non-pressure chronic ulcer of left 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 (7) Other acute postprocedural pain: CODE(S): G89.18 - Other acute postprocedural pain (8) Type 2 diabetes mellitus with diabetic polyneuropathy: CODE(S): E11.42 - Type 2 diabetes mellitus with diabetic polyneuropathy QUALIFIERS: Diabetes mellitus assisted insulin use: without intermodal truck driver use Qualified Code(s): E11.42 - Type 2 diabetes mellitus with diabetic polyneuropathy (9) 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 muscle: CODE(S): L97.523 - 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 muscle (10) Gas gangrene of foot: CODE(S): A48.0 - Gas gangrene (11) Diabetic infection of left foot: CODE(S): E11.628 - Type 2 diabetes mellitus with other skin complications; L08.9 - Local infection of the skin and subcutaneous tissue, unspecified (12) 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 bone: CODE(S): L97.524 - 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 bone (13) Cellulitis: CODE(S): L03.90 - Cellulitis, unspecified QUALIFIERS: Site of cellulitis: extremity Site of cellulitis of extremity: lower extremity Laterality: left Qualified Code(s): L03.116 - Cellulitis of left lower limb (14) Hypertension: CODE(S): I10 - Essential (primary) hypertension QUALIFIERS: Hypertension type: primary hypertension Qualified Code(s): I10 - Essential (primary) hypertension PLAN: Plan The patient appears to be tolerating hyperbaric oxygen therapy well, which will be continued as per their medical treatment plan.
[2023-09-23 10:42] VITALS: BP 126/72; BP 132/76; PULSE 89; PULSE 94; RESP 18; TEMP 36.3; TEMP 36.6
[2023-09-23 10:58] LABS: Bedside Glucose 148 mg/dL (74-106)
[2023-09-23 10:58] LABS: Bedside Glucose 158 mg/dL (74-106)
[2023-09-26 12:52] LABS: Bedside Glucose 122 mg/dL (74-106)
[2023-09-26 12:52] LABS: Bedside Glucose 127 mg/dL (74-106)
[2023-09-27 10:00] VITALS: BP 140/79; PULSE 94; RESP 18; TEMP 35.9; BMI 33.9
--- NOTE | 2023-09-27 10:29 | PCM.WC.PN ---
History of Present Illness Date of Service: 09/27/23 Chief Complaint: Diabetic left foot infection with gas gangrene and osteomyelitis; Li grade 3 diabetic foot infection. History of Wound: This is a 43-year-old male with a history of diabetic foot pathology and infections. On July 15, 2023, the patient underwent reconstruction of the left Charcot foot deformity by means of a left ankle arthrodesis, subtalar joint arthrodesis, midfoot osteotomy with percutaneous pinning, and application of the left lower extremity splint. He subsequently developed left foot and ankle abscess, with full-thickness wounds and osteomyelitis of the left ankle. On September 01, 2023, he underwent incision and drainage of an abscess down to bone, and wound site debridement and wound bed preparation for delayed skin graft application. With respect to his osteomyelitis, the patient is receiving meropenem 3 times daily intravenously for Enterococcus and Pseudomonas infection by means of a PICC line which is located in his left upper arm. He is receiving home health care. Wound care is by means of packing with Dakin's moist to dry dressings, as his surgical wound is only partially closed. A multilayer compression wrap is being used to minimize swelling. The patient is nonweightbearing. He is felt to be in a limb threatening situation, and was referred for evaluation as a prelude to implementing hyperbaric oxygen therapy for Li grade 3 diabetic foot wound with osteomyelitis. A thorough review of systems was undertaken. The patient has no history of pulmonary or otitic barotrauma. In fact, he has previously undergone hyperbaric oxygen therapy sessions in the past, approximately 10 years ago, for diabetic right foot infection. He tolerated hyperbaric oxygen therapy well at that time without incident. 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 His history is negative for seizures and seizure disorder. Pulmonary history is negative. Cardiac history is negative. The patient has no history of renal disease. He has no history of anemia or other hemopoietic abnormalities. There is no history of endocrine problems. He is not a smoker. Recent x-ray reveals moderate lung volumes. Increased AP dimension of the chest. Subsegmental atelectasis suggested in the left lung base. No definite inflammatory infiltrates. No effusions. Mild cardiac enlargement. Normal mediastinum and michelle. Normal visualized pulmonary arteries. Normal visualized aortic arch and descending thoracic aorta. An EKG reveals normal sinus rhythm and is interpreted as a normal EKG. Laboratory results have been reviewed, without any outstanding significant abnormalities. Progress of Wound: Serial monitoring of the patient's wound is underway by Dr. Perkins, podiatric specialist. Objective Data Objective Data Vital Signs: Vital Signs Temp Pulse Resp BP O2 Flow Rate 96.7 F L 94 18 140/79 H 99 09/27/23 10:00 09/27/23 10:00 09/27/23 10:00 09/27/23 10:00 09/08/23 00:33 Oxygen Flow Rate (L/min) 99 Weight: 113.398 kg Body Mass Index (BMI) 33.9 Lab / Micro Data Labs: Laboratory Results - last 24 hr 09/26/23 12:15: POC Glucose 127 H 09/26/23 12:32: POC Glucose 122 H Physical Exam Narrative Neurovascular status unchanged Full-thickness wounds to medial ankle healing well stable granular base no signs of infection. Lateral ankle wound down to the level of bone noted with intact vessel loop closure allowing for partial wound closure. There is a residual wound. Pre and postdebridement measurements documented in notes nursing notes. This was debrided down to level of muscle today. No residual abscess noted. Resolved acute signs of infection. No signs of DVT. Debridement Note Debridement Note Post-Debridement Measurements and Additional Note: Post-Debridement Measurements/Treatment - Nurse 1 - General Ulcer Assessment Start: 09/13/23 10:02 Freq: Status: Active Protocol: .LOWEXT Activity Type Activity Date Activity User E-sign Co-sign Detail Recorded Client Recorded Date Recorded By Document 09/13/23 10:02 RB Desktop 09/13/23 10:21 RB Document 09/20/23 09:55 RB Desktop 09/20/23 09:58 RB Document 09/27/23 10:00 RB Desktop 09/27/23 10:03 RB 09/13/23 09/20/23 09/27/23 10:02 09:55 10:00 - Today's Visit Information Type of service Follow-up Visit Follow-up Visit Follow-up Visit (Physician/MARINE EQUIPMENT DESIGN ENGINEER (Physician/MARINE EQUIPMENT DESIGN ENGINEER (Physician/MARINE EQUIPMENT DESIGN ENGINEER ) ) ) Arrival Mode Ambulatory Ambulatory Wheelchair Transfer Assistance None None None Patient Identification Verified (Name & Yes Yes Yes ) Patient Requires Transmission-Based No No No Precautions Finger Stick Blood Sugar(mg/dl) (if 100 indicated): Blood Sugar Stated by Patient Height and Weight Body Mass Index (BMI) 33.9 33.9 33.9 BMI Classification Obese Obese Obese Vital Signs Temperature (97.8 F-99.1 F) 96 F L 97 F L 96.7 F L Temperature Source Temporal Temporal Temporal Pulse Rate (60-100) 93 88 94 Pulse Location Monitor Monitor Monitor Respiratory Rate (12-18) 18 18 18 Respiratory rate source Observation Observation Observation Blood Pressure (90/60-120/80) 122/68 H 135/71 H 140/79 H Blood Pressure Mean (mm Hg) 86 92 99 Source Monitor Monitor Monitor Position Semi-Fowlers Semi-Fowlers Semi-Fowlers Blood Pressure Location Left Arm Left Arm Left Arm History Since Last Visit- (Skip if this is Patient's initial visit) Have you changed medications since your No No No last visit? Any new allergies or adverse reactions No No No Had a fall/change in ADL's that may No No No increase risk of falls Signs or symptoms of abuse and/or No No No neglect since last visit Have you been in the hospital since your No No No last visit? Has dressing in place as prescribed Yes Yes Yes Has compression in place as prescribed Yes Yes Yes Has offloadiing in place as prescribed Yes No No Experienced any changes in pain level or No No No management Pain Scale: 0-10 Numeric Is Patient Pain Free? Yes Yes Yes WC - Nurse 1 - General Ulcer Measurement Start: 09/13/23 10:02 Freq: Status: Active Protocol: Activity Type Activity Date Activity User E-sign Co-sign Detail Recorded Client Recorded Date Recorded By Document 09/13/23 10:02 RB Desktop 09/13/23 10:21 RB Document 09/20/23 09:55 RB Desktop 09/20/23 09:58 RB Document 09/27/23 10:00 RB Desktop 09/27/23 10:03 RB 09/13/23 09/20/23 09/27/23 10:02 09:55 10:00 Wound Center Nurse 1 6. L medial ankle -Combined with other wound No No No -Current Size (cm) - Length 0.1 1.4 1 -Current Size (cm) - Width 0.1 0.5 0.2 -Current Size (cm) - Depth 0.1 0.5 0.2 -Total Square Cm 0.01 0.70 0.2 -Photo Taken Yes -Tunneling No No No -Undermining/Tunneling No No No -Circular Undermining No No No -Exudate Amt Medium Medium Medium -Exudate Type Serosanguineous Serosanguineous Serosanguineous -Wound Margin Distinct, Distinct, Thickened & Outline Outline Rolled Under Attached Attached -Granulation Amt Medium (34-66%) Medium (34-66%) Medium (34-66%) -Granulation Quality [place] -Slough/Fibrin Yes Yes Yes -Necrosis Amt Medium (34-66%) Medium (34-66%) Medium (34-66%) -Necrotic Tissue Type Adherent Slough Adherent Slough Adherent Slough -Structure Exposed N/A N/A N/A -Texture ([place]-wound Skin Appearance) Assessed Assessed, Assessed, Scarring Scarring -Moisture ([place]-wound Skin Appearance) Assessed Assessed Assessed -Color ([place]-wound Skin Appearance) Assessed Assessed Assessed -Temperature ([place]-wound Skin No Abnormality No Abnormality No Abnormality Appearance) (Pt Warm) (Pt Warm) (Pt Warm) -Tenderness on Palpation ([place]-wound No No No Skin Appearance) -Ulcer Cleansing Wound Cleanser Wound Cleanser Wound Cleanser -Foul Odor after Cleansing No No No -Anesthetic Used 4% Lidocaine 4% Lidocaine Solution Solution 7. L lateral ankle -Combined with other wound No No No -Current Size (cm) - Length 3 4.2 2.2 -Current Size (cm) - Width 1 1 1 -Current Size (cm) - Depth 2.5 3 2 -Total Square Cm 3 4.2 2.2 -Photo Taken Yes -Tunneling No No No -Undermining/Tunneling No No Yes -Undermining/Tunneling Starts (O'clock 6 ) -Undermining/Tunneling Ends (O'clock) 10 -Maximum Distance (cm) 2.5 -Circular Undermining No No No -Exudate Amt Medium Large Large -Exudate Type Serosanguineous Serosanguineous Serosanguineous -Wound Margin Distinct, Distinct, Thickened & Outline Outline Rolled Under Attached Attached -Granulation Amt Medium (34-66%) Medium (34-66%) Medium (34-66%) -Granulation Quality [place] -Slough/Fibrin Yes Yes Yes -Necrosis Amt Medium (34-66%) Medium (34-66%) Medium (34-66%) -Necrotic Tissue Type Adherent Slough Adherent Slough Adherent Slough -Structure Exposed N/A N/A N/A -Texture ([place]-wound Skin Appearance) Assessed Assessed, Scarring Scarring -Moisture ([place]-wound Skin Appearance) Assessed Assessed Assessed -Color ([place]-wound Skin Appearance) Assessed Assessed Assessed -Temperature ([place]-wound Skin No Abnormality No Abnormality No Abnormality Appearance) (Pt Warm) (Pt Warm) (Pt Warm) -Tenderness on Palpation ([place]-wound No No No Skin Appearance) -Ulcer Cleansing Wound Cleanser Wound Cleanser Wound Cleanser -Foul Odor after Cleansing No Yes No -Anesthetic Used 4% Lidocaine 4% Lidocaine Solution Solution Lower Limb Edema Present Yes Yes Yes Left Calf (cm) 34.5 34 35.5 Left Ankle (cm) 30 26 26 WC - Nurse 2 - General Ulcer CM Notes Start: 09/13/23 10:02 Freq: Status: Active Protocol: Activity Type Activity Date Activity User E-sign Co-sign Detail Recorded Client Recorded Date Recorded By Document 09/13/23 11:23 [id number] 09/13/23 11:24 Document 09/20/23 10:17 Laptop 09/20/23 10:26 Edit Result 09/20/23 10:17 (1) [id number] 09/20/23 10:30 Document 09/27/23 10:10 Laptop 09/27/23 10:18 (1) 6. L medial ankle - Clinical Debridement Subcutaneous => Muscle / Fascia - Tissue Removed Subcutaneous => Muscle,Fascia - Debridement - Subq, 1st 20sq cm Yes => No - Debridement - Muscle / Fascia, 1st => Yes 20sq cm 7. L lateral ankle - Clinical Debridement Subcutaneous => Muscle / Fascia - Tissue Removed Subcutaneous => Muscle,Fascia - Debridement - Muscle / Fascia, 1st => No 20sq cm 09/13/23 09/20/23 09/27/23 11:23 10:17 10:10 Wound Center Nurse 2 6. L medial ankle -Time 11:24 10:18 10:13 -Correct Patient Yes Yes No -Correct Side, Site, Position Yes Yes No -Correct Procedure Yes Yes No -Procedure Performed Yes Yes No -Type of Procedure Debridement Debridement -Clinical Debridement Muscle / Fascia Muscle / Fascia Muscle / Fascia -Tissue Removed Muscle Muscle,Fascia -Post Debridement (cm) - Length 2.0 1.7 0 -Post Debridement (cm) - Width 0.3 0.5 0 -Post Debridement (cm) - Depth 0.7 0.6 0 -Total Square (Post) (cm) 0.60 0.85 0 -Area of Debridement (cm) - Length 2.0 1.7 0 -Area of Debridement (cm) - Width 0.3 0.5 0 -Total Square (Area) (cm) 0.60 0.85 0 -Tunneling No No No -Undermining/Tunneling No No No -Circular Undermining No No No -Wound/Ulcer Outcome Not Healed Not Healed Healed- Epithelialized -Ulcer Cleansing Rinsed/ Rinsed/ Irrigated with Irrigated with Saline Saline -Foul Odor after Cleansing No No -Bioengineered Tissue No No -Bleeding Controlled with Pressure Pressure -Treatment Response Procedure Procedure Procedure Tolerated Well Tolerated Well Tolerated Well -Offloading No No No -Assistive Device(s) Wheelchair -Debridement - Subq, 1st 20sq cm No No -Debridement - Muscle / Fascia, 1st No Yes No 20sq cm 7. L lateral ankle -Time 11:23 10:17 10:13 -Correct Patient Yes Yes Yes -Correct Side, Site, Position Yes Yes Yes -Correct Procedure Yes Yes Yes -Procedure Performed Yes Yes Yes -Type of Procedure Debridement Debridement Debridement -Clinical Debridement Muscle / Fascia Muscle / Fascia Muscle / Fascia -Tissue Removed Muscle Muscle,Fascia Muscle,Fascia -Post Debridement (cm) - Length 4.9 4.7 3.6 -Post Debridement (cm) - Width 1.0 1.2 1.2 -Post Debridement (cm) - Depth 3.6 3.1 2.3 -Total Square (Post) (cm) 4.90 5.64 4.32 -Area of Debridement (cm) - Length 4.9 4.7 3.6 -Area of Debridement (cm) - Width 1.0 1.2 1.2 -Total Square (Area) (cm) 4.90 5.64 4.32 -Tunneling No No No -Undermining/Tunneling No No No -Circular Undermining No No No -Wound/Ulcer Outcome Not Healed Not Healed Not Healed -Ulcer Cleansing Rinsed/ Rinsed/ Rinsed/ Irrigated with Irrigated with Irrigated with Saline Saline Saline -Foul Odor after Cleansing No No No -Bioengineered Tissue No No No -Bleeding Controlled with Pressure Pressure Pressure -Treatment Response Procedure Procedure Procedure Tolerated Well Tolerated Well Tolerated Well -Offloading No No No -Assistive Device(s) Wheelchair, Walker -Debridement - Subq, 1st 20sq cm No No -Debridement - Muscle / Fascia, 1st Yes No Yes 20sq cm Pain Scale: 0-10 Numeric Is Patient Pain Free? Yes Yes Yes - Nurse 3 - General Ulcer D/C NN Start: 09/13/23 10:02 Freq: Status: Active Protocol: Activity Type Activity Date Activity User E-sign Co-sign Detail Recorded Client Recorded Date Recorded By Document 09/13/23 11:25 [email or web address] [id number] 09/13/23 11:26 Document 09/20/23 10:30 RB Desktop 09/20/23 10:31 RB 09/13/23 09/20/23 11:25 10:30 Wound Care Center Nurse 3 6. L medial ankle -Ulcer Cleansing Rinsed/ Irrigated with Saline -Foul Odor after Cleansing No -Other Dressing 0.25 Dakin's dakins moistened gauze -Primary Dressing Covered/Secured with Dry Gauze Dry Gauze,Dry Gauze & Roll Gauze,Secured with Tape 7. L lateral ankle -Ulcer Cleansing Rinsed/ Irrigated with Saline -Foul Odor after Cleansing No -Other Dressing 0.25% dakin's dakins moistened gauze -Primary Dressing Covered/Secured with Dry Gauze Dry Gauze,Dry Gauze & Roll Gauze,Secured with Tape Left -Lotion applied to leg before Yes compression wrap -Multi-Layered Wrap Application Multi-Layer Comp - Left ($) -Tubular Bandage Double Layer -Size of Tubigrip Used Size E -Size E ($) 2 Treatment Response Procedure Tolerated Well Pain Scale: 0-10 Numeric Is Patient Pain Free? Yes Yes - Visit Discharge Discharge Condition Stable Stable Ambulatory Status Wheelchair Wheelchair Transportation Private Auto Private Auto Accompanied by father step father Medication Reconcilliation completed & Yes No provided to patient/care provider Clinical Summary of Care Provided Yes Yes Assessment/Plan Assessment/Plan (1) Osteomyelitis of ankle, left, acute: CODE(S): M86.172 - Other acute osteomyelitis, left ankle and foot PLAN: Exam performed Patient on IV meropenem via PICC line per infectious disease for enterococcal and pseudomonal infection left lower extremity with bone involvement Patient is status post Charcot reconstruction. This is a limb salvage case - wound significantly improved Today left lower extremity wound to lateral ankle was debrided down to and including level of muscle excisionally using a 5 mm dermal curette without incident. No anesthesia due to neuropathy. Hemostasis obtained with light compression. Patient tolerated procedure well. Pre and postdebridement measurements documented nursing notes. Patient will receive 3 times a week wound packing with Dakin's wet-to-dry and overlying multilayer compression wrap. Wound dressing in the wound care center followed by 2 dressings to performed by home health care Patient follows up weekly Patient nonweightbearing left lower extremity Patient received HBO therapy 2 times, wound significantly improved today. Blood sugar well-controlled (2) Charcot foot due to diabetes mellitus: CODE(S): E11.610 - 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 arthropathy (3) Abscess of bursa, left ankle and foot: CODE(S): M71.072 - Abscess of bursa, left ankle and foot (4) Cellulitis of left lower limb: CODE(S): L03.116 - Cellulitis of left lower limb (5) Non-pressure chronic ulcer of left 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: CODE(S): L97.322 - Non-pressure chronic ulcer of left 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 (6) Type 2 diabetes mellitus with diabetic polyneuropathy: CODE(S): E11.42 - Type 2 diabetes mellitus with diabetic polyneuropathy QUALIFIERS: Diabetes mellitus long term care phlebotomist insulin use: without nursing home use Qualified Code(s): E11.42 - Type 2 diabetes mellitus with diabetic polyneuropathy
[2023-09-27 11:03] VITALS: BP 119/72; PULSE 77; RESP 18; TEMP 36.6
[2023-09-27 11:04] LABS: Bedside Glucose 130 mg/dL (74-106)
--- NOTE | 2023-09-27 11:33 | WC ---
HBO tx cancelled 09/26/23 d/t pt BS to low. BS checked at 12:15 at 127, pt given an OJ and rechecked at 12:30 results were 121. Tx cancelled per Xochitl Park CNP. Pt voices no concerns or complaints. Charted 09/27/23.
[2023-09-27 13:04] LABS: Bedside Glucose 133 mg/dL (74-106)
--- NOTE | 2023-09-27 14:14 | HBO.PN.PCM_ITS ---
History of Present Illness Date of Service: 09/27/23 Chief Complaint: Diabetic left foot infection with gas gangrene and osteom yelitis; Li grade 3 diabetic foot infection. History of Wound: This is a 43-year-old male with a history of diabetic foot pathology and infections. On July 15, 2023, the patient underwent reconstruction of the left Charcot foot deformity by means of a left ankle arthrodesis, subtalar joint arthrodesis, midfoot osteotomy with percutaneous pinning, and application of the left lower extremity splint. He subsequently developed left foot and ankle abscess, with full-thickness wounds and osteomyelitis of the left ankle. On September 01, 2023, he underwent incision and drainage of an abscess down to bone, and wound site debridement and wound bed preparation for delayed skin graft application. With respect to his osteomyelitis, the patient is receiving meropenem 3 times daily intravenously for Enterococcus and Pseudomonas infection by means of a PICC line which is located in his left upper arm. He is receiving home health care. Wound care is by means of packing with Dakin's moist to dry dressings, as his surgical wound is only partially closed. A multilayer compression wrap is being used to minimize swelling. The patient is nonweightbearing. He is felt to be in a limb threatening situation, and was referred for evaluation as a prelude to implementing hyperbaric oxygen therapy for Li grade 3 diabetic foot wound with osteomyelitis. A thorough review of systems was undertaken. The patient has no history of pulmonary or otitic barotrauma. In fact, he has previously undergone hyperbaric oxygen therapy sessions in the past, approximately 10 years ago, for diabetic right foot infection. He tolerated hyperbaric oxygen therapy well at that time without incident. 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 His history is negative for seizures and seizure disorder. Pulmonary history is negative. Cardiac history is negative. The patient has no history of renal disease. He has no history of anemia or other hemopoietic abnormalities. There is no history of endocrine problems. He is not a smoker. Recent x-ray reveals moderate lung volumes. Increased AP dimension of the chest. Subsegmental atelectasis suggested in the left lung base. No definite inflammatory infiltrates. No effusions. Mild cardiac enlargement. Normal mediastinum and michelle. Normal visualized pulmonary arteries. Normal visualized aortic arch and descending thoracic aorta. An EKG reveals normal sinus rhythm and is interpreted as a normal EKG. Laboratory results have been reviewed, without any outstanding significant abnormalities. Progress of Wound: Serial monitoring of the patient's wound is underway by Dr. Perkins, podiatric specialist. Subjective Subjective The patient underwent his seventh hyperbaric oxygen therapy session today. The patient is scheduled for a total of 30 such sessions. Tolerance of hyperbaric oxygen therapy: Hyperbaric oxygen therapy was provided as per the facility's protocol. Hyperbaric oxygen therapy was undertaken at 2 krzysztof and 100% oxygen for 90 minutes without air breaks. The patient tolerated hyperbaric oxygen therapy well, without complaints or complications. Upon emergence from the hyperbaric chamber, the patient's vital signs remained stable. Blood sugar levels were monitored both before and after hyperbaric oxygen therapy, and found to be satisfactory. His blood sugar was 130 prior to HBO therapy, and 133 following treatment. Objective Data Objective Data Vital Signs: Vital Signs Temp Pulse Resp BP O2 Flow Rate 97.8 F 77 18 119/72 99 09/27/23 11:03 09/27/23 11:03 09/27/23 11:03 09/27/23 11:03 09/08/23 00:33 Oxygen Flow Rate (L/min) 99 Weight: 250 lb Body Mass Index (BMI) 33.9 Lab / Micro Data Labs: Laboratory Results - last 24 hr 09/27/23 10:42: POC Glucose 130 H 09/27/23 12:46: POC Glucose 133 H Exam Physical Exam Narrative Neurovascular status unchanged Full-thickness wounds to medial ankle healing well stable granular base no signs of infection. Lateral ankle wound down to the level of bone noted with intact vessel loop closure allowing for partial wound closure. There is a residual wound. Pre and postdebridement measurements documented in notes nursing notes. No residual abscess noted. Resolved acute signs of infection. No signs of DVT. Const alert, oriented x3, no apparent distress and well nourished General Appearance: cooperative and well developed HEENT normocephalic and EAC's normal Head and Scalp: atraumatic Eyes PERRL and EOMs intact bilaterally Neck supple and no JVD General: trachea midline Resp normal respiratory effort and no use of accessory muscles Effort and Inspection: able to speak in complete sentences Cardio regular rate and regular rhythm Psych affect normal Appearance: grossly normal and well kempt Speech: normal speech Nursing Assessment and Debridement Post-Debridement Measurements and Additional Note: Post-Debridement Measurements/Treatment - Nurse 1 - General Ulcer Assessment Start: 09/13/23 10:02 Freq: Status: Active Protocol: GWEN Activity Type Activity Date Activity User E-sign Co-sign Detail Recorded Client Recorded Date Recorded By Document 09/27/23 10:00 RB Desktop 09/27/23 10:03 RB 09/27/23 10:00 WC - Today's Visit Information Type of service Follow-up 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 ) Arrival Mode Wheelchair Transfer Assistance None Patient Identification Verified (Name & Yes ) Patient Requires Transmission-Based No Precautions Height and Weight Body Mass Index (BMI) 33.9 BMI Classification Obese Vital Signs Temperature (97.8 F-99.1 F) 96.7 F L Temperature Source Temporal Pulse Rate (60-100) 94 Pulse Location Monitor Respiratory Rate (12-18) 18 Respiratory rate source Observation Blood Pressure (90/60-120/80) 140/79 H Blood Pressure Mean (mm Hg) 99 Source Monitor Position Semi-Fowlers Blood Pressure Location Left Arm History Since Last Visit- (Skip if this is Patient's initial visit) Have you changed medications since your No last visit? Any new allergies or adverse reactions No Had a fall/change in ADL's that may No increase risk of falls Signs or symptoms of abuse and/or No neglect since last visit Have you been in the hospital since your No last visit? Has dressing in place as prescribed Yes Has compression in place as prescribed Yes Has offloadiing in place as prescribed No Experienced any changes in pain level or No management Pain Scale: 0-10 Numeric Is Patient Pain Free? Yes Carlos Nurse 1 - General Ulcer Measurement Start: 09/13/23 10:02 Freq: Status: Active Protocol: Activity Type Activity Date Activity User E-sign Co-sign Detail Recorded Client Recorded Date Recorded By Document 09/27/23 10:00 RB Desktop 09/27/23 10:03 RB 09/27/23 10:00 Wound Center Nurse 1 6. L medial ankle -Combined with other wound No -Current Size (cm) - Length 1 -Current Size (cm) - Width 0.2 -Current Size (cm) - Depth 0.2 -Total Square Cm 0.2 -Photo Taken Yes -Tunneling No -Undermining/Tunneling No -Circular Undermining No -Exudate Amt Medium -Exudate Type Serosanguineous -Wound Margin Thickened & Rolled Under -Granulation Amt Medium (34-66%) -Granulation Quality [place] -Slough/Fibrin Yes -Necrosis Amt Medium (34-66%) -Necrotic Tissue Type Adherent Slough -Structure Exposed N/A -Texture ([place]-wound Skin Appearance) Assessed, Scarring -Moisture ([place]-wound Skin Appearance) Assessed -Color ([place]-wound Skin Appearance) Assessed -Temperature ([place]-wound Skin No Abnormality Appearance) (Pt Warm) -Tenderness on Palpation ([place]-wound No Skin Appearance) -Ulcer Cleansing Wound Cleanser -Foul Odor after Cleansing No -Anesthetic Used 4% Lidocaine Solution 7. L lateral ankle -Combined with other wound No -Current Size (cm) - Length 2.2 -Current Size (cm) - Width 1 -Current Size (cm) - Depth 2 -Total Square Cm 2.2 -Photo Taken Yes -Tunneling No -Undermining/Tunneling Yes -Undermining/Tunneling Starts (O'clock 6 ) -Undermining/Tunneling Ends (O'clock) 10 -Maximum Distance (cm) 2.5 -Circular Undermining No -Exudate Amt Large -Exudate Type Serosanguineous -Wound Margin Thickened & Rolled Under -Granulation Amt Medium (34-66%) -Granulation Quality [place] -Slough/Fibrin Yes -Necrosis Amt Medium (34-66%) -Necrotic Tissue Type Adherent Slough -Structure Exposed N/A -Texture ([place]-wound Skin Appearance) Scarring -Moisture ([place]-wound Skin Appearance) Assessed -Color ([place]-wound Skin Appearance) Assessed -Temperature ([place]-wound Skin No Abnormality Appearance) (Pt Warm) -Tenderness on Palpation ([place]-wound No Skin Appearance) -Ulcer Cleansing Wound Cleanser -Foul Odor after Cleansing No -Anesthetic Used 4% Lidocaine Solution Lower Limb Edema Present Yes Left Calf (cm) 35.5 Left Ankle (cm) 26 WC - Nurse 2 - General Ulcer CM Notes Start: 09/13/23 10:02 Freq: Status: Active Protocol: Activity Type Activity Date Activity User E-sign Co-sign Detail Recorded Client Recorded Date Recorded By Document 09/27/23 10:10 Laptop 09/27/23 10:18 09/27/23 10:10 Wound Center Nurse 2 6. L medial ankle -Time 10:13 -Correct Patient No -Correct Side, Site, Position No -Correct Procedure No -Procedure Performed No -Clinical Debridement Muscle / Fascia -Post Debridement (cm) - Length 0 -Post Debridement (cm) - Width 0 -Post Debridement (cm) - Depth 0 -Total Square (Post) (cm) 0 -Area of Debridement (cm) - Length 0 -Area of Debridement (cm) - Width 0 -Total Square (Area) (cm) 0 -Tunneling No -Undermining/Tunneling No -Circular Undermining No -Wound/Ulcer Outcome Healed- Epithelialized -Treatment Response Procedure Tolerated Well -Offloading No -Debridement - Subq, 1st 20sq cm No -Debridement - Muscle / Fascia, 1st No 20sq cm 7. L lateral ankle -Time 10:13 -Correct Patient Yes -Correct Side, Site, Position Yes -Correct Procedure Yes -Procedure Performed Yes -Type of Procedure Debridement -Clinical Debridement Muscle / Fascia -Tissue Removed Muscle,Fascia -Post Debridement (cm) - Length 3.6 -Post Debridement (cm) - Width 1.2 -Post Debridement (cm) - Depth 2.3 -Total Square (Post) (cm) 4.32 -Area of Debridement (cm) - Length 3.6 -Area of Debridement (cm) - Width 1.2 -Total Square (Area) (cm) 4.32 -Tunneling No -Undermining/Tunneling No -Circular Undermining No -Wound/Ulcer Outcome Not Healed -Ulcer Cleansing Rinsed/ Irrigated with Saline -Foul Odor after Cleansing No -Bioengineered Tissue No -Bleeding Controlled with Pressure -Treatment Response Procedure Tolerated Well -Offloading No -Debridement - Subq, 1st 20sq cm No -Debridement - Muscle / Fascia, 1st Yes 20sq cm Pain Scale: 0-10 Numeric Is Patient Pain Free? 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: CODE(S): E11.610 - 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 arthropathy (3) Osteomyelitis of ankle, left, acute: CODE(S): M86.172 - Other acute osteomyelitis, left ankle and foot (4) 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 muscle: CODE(S): L97.523 - 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 muscle (5) 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 bone: CODE(S): L97.524 - 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 bone PLAN: Plan The patient appears to be tolerating hyperbaric oxygen therapy well, and has completed his 7 hyperbaric oxygen therapy session. Hyperbaric oxygen therapy will be continued as per the patient's medical treatment plan, anticipating a total of 30 such sessions.
[2023-09-28 12:26] LABS: Bedside Glucose 132 mg/dL (74-106)
--- NOTE | 2023-09-28 13:09 | PCM.HBO.PN ---
History of Present Illness Date of Service: 09/28/23 Chief Complaint: Diabetic left foot infection with gas gangrene and osteomyelitis; Li grade 3 diabetic foot infection. History of Wound: This is a 43-year-old male with a history of diabetic foot pathology and infections. On July 15, 2023, the patient underwent reconstruction of the left Charcot foot deformity by means of a left ankle arthrodesis, subtalar joint arthrodesis, midfoot osteotomy with percutaneous pinning, and application of the left lower extremity splint. He subsequently developed left foot and ankle abscess, with full-thickness wounds and osteomyelitis of the left ankle. On September 01, 2023, he underwent incision and drainage of an abscess down to bone, and wound site debridement and wound bed preparation for delayed skin graft application. With respect to his osteomyelitis, the patient is receiving meropenem 3 times daily intravenously for Enterococcus and Pseudomonas infection by means of a PICC line which is located in his left upper arm. He is receiving home health care. Wound care is by means of packing with Dakin's moist to dry dressings, as his surgical wound is only partially closed. A multilayer compression wrap is being used to minimize swelling. The patient is nonweightbearing. He is felt to be in a limb threatening situation, and was referred for evaluation as a prelude to implementing hyperbaric oxygen therapy for Li grade 3 diabetic foot wound with osteomyelitis. A thorough review of systems was undertaken. The patient has no history of pulmonary or otitic barotrauma. In fact, he has previously undergone hyperbaric oxygen therapy sessions in the past, approximately 10 years ago, for diabetic right foot infection. He tolerated hyperbaric oxygen therapy well at that time without incident. 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 His history is negative for seizures and seizure disorder. Pulmonary history is negative. Cardiac history is negative. The patient has no history of renal disease. He has no history of anemia or other hemopoietic abnormalities. There is no history of endocrine problems. He is not a smoker. Recent x-ray reveals moderate lung volumes. Increased AP dimension of the chest. Subsegmental atelectasis suggested in the left lung base. No definite inflammatory infiltrates. No effusions. Mild cardiac enlargement. Normal mediastinum and michelle. Normal visualized pulmonary arteries. Normal visualized aortic arch and descending thoracic aorta. An EKG reveals normal sinus rhythm and is interpreted as a normal EKG. Laboratory results have been reviewed, without any outstanding significant abnormalities. Subjective Subjective The patient underwent his 8th hyperbaric oxygen therapy session today. The patient is scheduled for a total of 30 such sessions. Tolerance of hyperbaric oxygen therapy: Hyperbaric oxygen therapy was provided as per the facility's protocol. Hyperbaric oxygen therapy was undertaken at 2 krzysztof and 100% oxygen for 90 minutes without air breaks. The patient tolerated hyperbaric oxygen therapy well, without complaints or complications. Upon emergence from the hyperbaric chamber, the patient's vital signs remained stable. Blood sugar levels were monitored both before and after hyperbaric oxygen therapy, and found to be satisfactory. Objective Data Objective Data Vital Signs: Vital Signs Temp Pulse Resp BP O2 Flow Rate 97.8 F 77 18 119/72 99 09/27/23 11:03 09/27/23 11:03 09/27/23 11:03 09/27/23 11:03 09/08/23 00:33 Oxygen Flow Rate (L/min) 99 Weight: 250 lb Body Mass Index (BMI) 33.9 Lab / Micro Data Labs: Laboratory Results - last 24 hr 09/28/23 12:08: POC Glucose 132 H Exam Physical Exam Const alert General Appearance: cooperative HEENT normocephalic Chest inspection of chest normal Resp normal respiratory effort and normal air movement Effort and Inspection: able to speak in complete sentences; Negative for respiratory distress Cardio regular rate and regular rhythm Neuro Speech: speech normal Nursing Assessment and Debridement Post-Debridement Measurements and Additional Note: Post-Debridement Measurements/Treatment - Nurse 1 - General Ulcer Assessment Start: 09/13/23 10:02 Freq: Status: Active Protocol: [email or web address] Activity Type Activity Date Activity User E-sign Co-sign Detail Recorded Client Recorded Date Recorded By Document 09/27/23 10:00 Desktop 09/27/23 10:03 RB 09/27/23 10:00 - Today's Visit Information Type of service Follow-up Visit (Physician/HANDBOOK WRITER ) Arrival Mode Wheelchair Transfer Assistance None Patient Identification Verified (Name & Yes ) Patient Requires Transmission-Based No Precautions Height and Weight Body Mass Index (BMI) 33.9 BMI Classification Obese Vital Signs Temperature (97.8 F-99.1 F) 96.7 F L Temperature Source Temporal Pulse Rate (60-100) 94 Pulse Location Monitor Respiratory Rate (12-18) 18 Respiratory rate source Observation Blood Pressure (90/60-120/80) 140/79 H Blood Pressure Mean (mm Hg) 99 Source Monitor Position Semi-Fowlers Blood Pressure Location Left Arm History Since Last Visit- (Skip if this is Patient's initial visit) Have you changed medications since your No last visit? Any new allergies or adverse reactions No Had a fall/change in ADL's that may No increase risk of falls Signs or symptoms of abuse and/or No neglect since last visit Have you been in the hospital since your No last visit? Has dressing in place as prescribed Yes Has compression in place as prescribed Yes Has offloadiing in place as prescribed No Experienced any changes in pain level or No management Pain Scale: 0-10 Numeric Is Patient Pain Free? Yes WC - Nurse 1 - General Ulcer Measurement Start: 09/13/23 10:02 Freq: Status: Active Protocol: Activity Type Activity Date Activity User E-sign Co-sign Detail Recorded Client Recorded Date Recorded By Document 09/27/23 10:00 Desktop 09/27/23 10:03 RB 09/27/23 10:00 Wound Center Nurse 1 6. L medial ankle -Combined with other wound No -Current Size (cm) - Length 1 -Current Size (cm) - Width 0.2 -Current Size (cm) - Depth 0.2 -Total Square Cm 0.2 -Photo Taken Yes -Tunneling No -Undermining/Tunneling No -Circular Undermining No -Exudate Amt Medium -Exudate Type Serosanguineous -Wound Margin Thickened & Rolled Under -Granulation Amt Medium (34-66%) -Granulation Quality [place] -Slough/Fibrin Yes -Necrosis Amt Medium (34-66%) -Necrotic Tissue Type Adherent Slough -Structure Exposed N/A -Texture ([place]-wound Skin Appearance) Assessed, Scarring -Moisture ([place]-wound Skin Appearance) Assessed -Color ([place]-wound Skin Appearance) Assessed -Temperature ([place]-wound Skin No Abnormality Appearance) (Pt Warm) -Tenderness on Palpation ([place]-wound No Skin Appearance) -Ulcer Cleansing Wound Cleanser -Foul Odor after Cleansing No -Anesthetic Used 4% Lidocaine Solution 7. L lateral ankle -Combined with other wound No -Current Size (cm) - Length 2.2 -Current Size (cm) - Width 1 -Current Size (cm) - Depth 2 -Total Square Cm 2.2 -Photo Taken Yes -Tunneling No -Undermining/Tunneling Yes -Undermining/Tunneling Starts (O'clock 6 ) -Undermining/Tunneling Ends (O'clock) 10 -Maximum Distance (cm) 2.5 -Circular Undermining No -Exudate Amt Large -Exudate Type Serosanguineous -Wound Margin Thickened & Rolled Under -Granulation Amt Medium (34-66%) -Granulation Quality [place] -Slough/Fibrin Yes -Necrosis Amt Medium (34-66%) -Necrotic Tissue Type Adherent Slough -Structure Exposed N/A -Texture ([place]-wound Skin Appearance) Scarring -Moisture ([place]-wound Skin Appearance) Assessed -Color ([place]-wound Skin Appearance) Assessed -Temperature ([place]-wound Skin No Abnormality Appearance) (Pt Warm) -Tenderness on Palpation ([place]-wound No Skin Appearance) -Ulcer Cleansing Wound Cleanser -Foul Odor after Cleansing No -Anesthetic Used 4% Lidocaine Solution Lower Limb Edema Present Yes Left Calf (cm) 35.5 Left Ankle (cm) 26 WC - Nurse 2 - General Ulcer CM Notes Start: 09/13/23 10:02 Freq: Status: Active Protocol: Activity Type Activity Date Activity User E-sign Co-sign Detail Recorded Client Recorded Date Recorded By Document 09/27/23 10:10 Laptop 09/27/23 10:18 09/27/23 10:10 Wound Center Nurse 2 6. L medial ankle -Time 10:13 -Correct Patient No -Correct Side, Site, Position No -Correct Procedure No -Procedure Performed No -Clinical Debridement Muscle / Fascia -Post Debridement (cm) - Length 0 -Post Debridement (cm) - Width 0 -Post Debridement (cm) - Depth 0 -Total Square (Post) (cm) 0 -Area of Debridement (cm) - Length 0 -Area of Debridement (cm) - Width 0 -Total Square (Area) (cm) 0 -Tunneling No -Undermining/Tunneling No -Circular Undermining No -Wound/Ulcer Outcome Healed- Epithelialized -Treatment Response Procedure Tolerated Well -Offloading No -Debridement - Subq, 1st 20sq cm No -Debridement - Muscle / Fascia, 1st No 20sq cm 7. L lateral ankle -Time 10:13 -Correct Patient Yes -Correct Side, Site, Position Yes -Correct Procedure Yes -Procedure Performed Yes -Type of Procedure Debridement -Clinical Debridement Muscle / Fascia -Tissue Removed Muscle,Fascia -Post Debridement (cm) - Length 3.6 -Post Debridement (cm) - Width 1.2 -Post Debridement (cm) - Depth 2.3 -Total Square (Post) (cm) 4.32 -Area of Debridement (cm) - Length 3.6 -Area of Debridement (cm) - Width 1.2 -Total Square (Area) (cm) 4.32 -Tunneling No -Undermining/Tunneling No -Circular Undermining No -Wound/Ulcer Outcome Not Healed -Ulcer Cleansing Rinsed/ Irrigated with Saline -Foul Odor after Cleansing No -Bioengineered Tissue No -Bleeding Controlled with Pressure -Treatment Response Procedure Tolerated Well -Offloading No -Debridement - Subq, 1st 20sq cm No -Debridement - Muscle / Fascia, 1st Yes 20sq cm Pain Scale: 0-10 Numeric Is Patient Pain Free? Yes Assessment/Plan Assessment/Plan (1) Osteomyelitis of ankle or foot, left, acute: CODE(S): M86.172 - Other acute osteomyelitis, left ankle and foot (2) Osteomyelitis of ankle, left, acute: CODE(S): M86.172 - Other acute osteomyelitis, left ankle and foot (3) Abscess of bursa, left ankle and foot: CODE(S): M71.072 - Abscess of bursa, left ankle and foot (4) Cellulitis of left lower limb: CODE(S): L03.116 - Cellulitis of left lower limb (5) Charcot foot due to diabetes mellitus: CODE(S): E11.610 - 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 arthropathy (6) Non-pressure chronic ulcer of left 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: CODE(S): L97.322 - Non-pressure chronic ulcer of left 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 (7) Other acute postprocedural pain: CODE(S): G89.18 - Other acute postprocedural pain (8) Type 2 diabetes mellitus with diabetic polyneuropathy: CODE(S): E11.42 - Type 2 diabetes mellitus with diabetic polyneuropathy QUALIFIERS: Diabetes mellitus nursing home insulin use: without nursing home use Qualified Code(s): E11.42 - Type 2 diabetes mellitus with diabetic polyneuropathy (9) 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 muscle: CODE(S): L97.523 - 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 muscle (10) Gas gangrene of foot: CODE(S): A48.0 - Gas gangrene (11) Diabetic infection of left foot: CODE(S): E11.628 - Type 2 diabetes mellitus with other skin complications; L08.9 - Local infection of the skin and subcutaneous tissue, unspecified (12) 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 bone: CODE(S): L97.524 - 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 bone (13) 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 muscle: CODE(S): L97.523 - 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 muscle (14) Cellulitis: CODE(S): L03.90 - Cellulitis, unspecified QUALIFIERS: Laterality: left Site of cellulitis: extremity Site of cellulitis of extremity: lower extremity Qualified Code(s): L03.116 - Cellulitis of left lower limb (15) Hypertension: CODE(S): I10 - Essential (primary) hypertension QUALIFIERS: Hypertension type: primary hypertension Qualified Code(s): I10 - Essential (primary) hypertension PLAN: Plan The patient appears to be tolerating hyperbaric oxygen therapy well, which will be continued as per their medical treatment plan.
[2023-09-28 14:32] LABS: Bedside Glucose 123 mg/dL (74-106)
[2023-09-28 14:35] VITALS: BP 117/60; BP 133/72; PULSE 100; PULSE 86; RESP 18; TEMP 36.2; TEMP 36.6
[2023-09-29 12:34] LABS: Bedside Glucose 154 mg/dL (74-106)
[2023-09-29 13:01] VITALS: BP 113/72; BP 126/67; PULSE 85; PULSE 93; RESP 18; TEMP 36.4
--- NOTE | 2023-09-29 13:04 | PCM.HBO.PN ---
History of Present Illness Date of Service: 09/29/23 Chief Complaint: Diabetic left foot infection with gas gangrene and osteomyelitis; Li grade 3 diabetic foot infection. History of Wound: This is a 43-year-old male with a history of diabetic foot pathology and infections. On July 15, 2023, the patient underwent reconstruction of the left Charcot foot deformity by means of a left ankle arthrodesis, subtalar joint arthrodesis, midfoot osteotomy with percutaneous pinning, and application of the left lower extremity splint. He subsequently developed left foot and ankle abscess, with full-thickness wounds and osteomyelitis of the left ankle. On September 01, 2023, he underwent incision and drainage of an abscess down to bone, and wound site debridement and wound bed preparation for delayed skin graft application. With respect to his osteomyelitis, the patient is receiving meropenem 3 times daily intravenously for Enterococcus and Pseudomonas infection by means of a PICC line which is located in his left upper arm. He is receiving home health care. Wound care is by means of packing with Dakin's moist to dry dressings, as his surgical wound is only partially closed. A multilayer compression wrap is being used to minimize swelling. The patient is nonweightbearing. He is felt to be in a limb threatening situation, and was referred for evaluation as a prelude to implementing hyperbaric oxygen therapy for Li grade 3 diabetic foot wound with osteomyelitis. A thorough review of systems was undertaken. The patient has no history of pulmonary or otitic barotrauma. In fact, he has previously undergone hyperbaric oxygen therapy sessions in the past, approximately 10 years ago, for diabetic right foot infection. He tolerated hyperbaric oxygen therapy well at that time without incident. 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 His history is negative for seizures and seizure disorder. Pulmonary history is negative. Cardiac history is negative. The patient has no history of renal disease. He has no history of anemia or other hemopoietic abnormalities. There is no history of endocrine problems. He is not a smoker. Recent x-ray reveals moderate lung volumes. Increased AP dimension of the chest. Subsegmental atelectasis suggested in the left lung base. No definite inflammatory infiltrates. No effusions. Mild cardiac enlargement. Normal mediastinum and michelle. Normal visualized pulmonary arteries. Normal visualized aortic arch and descending thoracic aorta. An EKG reveals normal sinus rhythm and is interpreted as a normal EKG. Laboratory results have been reviewed, without any outstanding significant abnormalities. Subjective Subjective The patient underwent his 9th hyperbaric oxygen therapy session today. The patient is scheduled for a total of 30 such sessions. Tolerance of hyperbaric oxygen therapy: Hyperbaric oxygen therapy was provided as per the facility's protocol. Hyperbaric oxygen therapy was undertaken at 2 krzysztof and 100% oxygen for 90 minutes without air breaks. The patient tolerated hyperbaric oxygen therapy well, without complaints or complications. Upon emergence from the hyperbaric chamber, the patient's vital signs remained stable. Blood sugar levels were monitored both before and after hyperbaric oxygen therapy, and found to be satisfactory. Objective Data Objective Data Vital Signs: Vital Signs Temp Pulse Resp BP O2 Flow Rate 97.8 F 100 18 133/72 H 99 09/28/23 14:35 09/28/23 14:35 09/28/23 14:35 09/28/23 14:35 09/08/23 00:33 Oxygen Flow Rate (L/min) 99 Weight: 250 lb Body Mass Index (BMI) 33.9 Lab / Micro Data Labs: Laboratory Results - last 24 hr 09/28/23 14:12: POC Glucose 123 H 09/29/23 12:17: POC Glucose 154 H Exam Physical Exam Const alert General Appearance: cooperative HEENT normocephalic Chest inspection of chest normal Resp normal respiratory effort and normal air movement Effort and Inspection: able to speak in complete sentences; Negative for respiratory distress Cardio regular rate and regular rhythm Neuro Speech: speech normal Nursing Assessment and Debridement Post-Debridement Measurements and Additional Note: Post-Debridement Measurements/Treatment [facility] Nurse 1 - General Ulcer Assessment Start: 09/13/23 10:02 Freq: Status: Active Protocol: WC.LOWEXT Activity Type Activity Date Activity User E-sign Co-sign Detail Recorded Client Recorded Date Recorded By Document 09/27/23 10:00 Desktop 09/27/23 10:03 RB 09/27/23 10:00 - Today's Visit Information Type of service Follow-up Visit (Physician/HYDROMETEOROLOGY TEACHER ) Arrival Mode Wheelchair Transfer Assistance None Patient Identification Verified (Name & Yes ) Patient Requires Transmission-Based No Precautions Height and Weight Body Mass Index (BMI) 33.9 BMI Classification Obese Vital Signs Temperature (97.8 F-99.1 F) 96.7 F L Temperature Source Temporal Pulse Rate (60-100) 94 Pulse Location Monitor Respiratory Rate (12-18) 18 Respiratory rate source Observation Blood Pressure (90/60-120/80) 140/79 H Blood Pressure Mean (mm Hg) 99 Source Monitor Position Semi-Fowlers Blood Pressure Location Left Arm History Since Last Visit- (Skip if this is Patient's initial visit) Have you changed medications since your No last visit? Any new allergies or adverse reactions No Had a fall/change in ADL's that may No increase risk of falls Signs or symptoms of abuse and/or No neglect since last visit Have you been in the hospital since your No last visit? Has dressing in place as prescribed Yes Has compression in place as prescribed Yes Has offloadiing in place as prescribed No Experienced any changes in pain level or No management Pain Scale: 0-10 Numeric Is Patient Pain Free? Yes WC - Nurse 1 - General Ulcer Measurement Start: 09/13/23 10:02 Freq: Status: Active Protocol: Activity Type Activity Date Activity User E-sign Co-sign Detail Recorded Client Recorded Date Recorded By Document 09/27/23 10:00 RB Desktop 09/27/23 10:03 RB 09/27/23 10:00 Wound Center Nurse 1 6. L medial ankle -Combined with other wound No -Current Size (cm) - Length 1 -Current Size (cm) - Width 0.2 -Current Size (cm) - Depth 0.2 -Total Square Cm 0.2 -Photo Taken Yes -Tunneling No -Undermining/Tunneling No -Circular Undermining No -Exudate Amt Medium -Exudate Type Serosanguineous -Wound Margin Thickened & Rolled Under -Granulation Amt Medium (34-66%) -Granulation Quality [place] -Slough/Fibrin Yes -Necrosis Amt Medium (34-66%) -Necrotic Tissue Type Adherent Slough -Structure Exposed N/A -Texture ([place]-wound Skin Appearance) Assessed, Scarring -Moisture ([place]-wound Skin Appearance) Assessed -Color ([place]-wound Skin Appearance) Assessed -Temperature ([place]-wound Skin No Abnormality Appearance) (Pt Warm) -Tenderness on Palpation ([place]-wound No Skin Appearance) -Ulcer Cleansing Wound Cleanser -Foul Odor after Cleansing No -Anesthetic Used 4% Lidocaine Solution 7. L lateral ankle -Combined with other wound No -Current Size (cm) - Length 2.2 -Current Size (cm) - Width 1 -Current Size (cm) - Depth 2 -Total Square Cm 2.2 -Photo Taken Yes -Tunneling No -Undermining/Tunneling Yes -Undermining/Tunneling Starts (O'clock 6 ) -Undermining/Tunneling Ends (O'clock) 10 -Maximum Distance (cm) 2.5 -Circular Undermining No -Exudate Amt Large -Exudate Type Serosanguineous -Wound Margin Thickened & Rolled Under -Granulation Amt Medium (34-66%) -Granulation Quality [place] -Slough/Fibrin Yes -Necrosis Amt Medium (34-66%) -Necrotic Tissue Type Adherent Slough -Structure Exposed N/A -Texture ([place]-wound Skin Appearance) Scarring -Moisture ([place]-wound Skin Appearance) Assessed -Color ([place]-wound Skin Appearance) Assessed -Temperature ([place]-wound Skin No Abnormality Appearance) (Pt Warm) -Tenderness on Palpation ([place]-wound No Skin Appearance) -Ulcer Cleansing Wound Cleanser -Foul Odor after Cleansing No -Anesthetic Used 4% Lidocaine Solution Lower Limb Edema Present Yes Left Calf (cm) 35.5 Left Ankle (cm) 26 WC - Nurse 2 - General Ulcer CM Notes Start: 09/13/23 10:02 Freq: Status: Active Protocol: Activity Type Activity Date Activity User E-sign Co-sign Detail Recorded Client Recorded Date Recorded By Document 09/27/23 10:10 Laptop 09/27/23 10:18 09/27/23 10:10 Wound Center Nurse 2 6. L medial ankle -Time 10:13 -Correct Patient No -Correct Side, Site, Position No -Correct Procedure No -Procedure Performed No -Clinical Debridement Muscle / Fascia -Post Debridement (cm) - Length 0 -Post Debridement (cm) - Width 0 -Post Debridement (cm) - Depth 0 -Total Square (Post) (cm) 0 -Area of Debridement (cm) - Length 0 -Area of Debridement (cm) - Width 0 -Total Square (Area) (cm) 0 -Tunneling No -Undermining/Tunneling No -Circular Undermining No -Wound/Ulcer Outcome Healed- Epithelialized -Treatment Response Procedure Tolerated Well -Offloading No -Debridement - Subq, 1st 20sq cm No -Debridement - Muscle / Fascia, 1st No 20sq cm 7. L lateral ankle -Time 10:13 -Correct Patient Yes -Correct Side, Site, Position Yes -Correct Procedure Yes -Procedure Performed Yes -Type of Procedure Debridement -Clinical Debridement Muscle / Fascia -Tissue Removed Muscle,Fascia -Post Debridement (cm) - Length 3.6 -Post Debridement (cm) - Width 1.2 -Post Debridement (cm) - Depth 2.3 -Total Square (Post) (cm) 4.32 -Area of Debridement (cm) - Length 3.6 -Area of Debridement (cm) - Width 1.2 -Total Square (Area) (cm) 4.32 -Tunneling No -Undermining/Tunneling No -Circular Undermining No -Wound/Ulcer Outcome Not Healed -Ulcer Cleansing Rinsed/ Irrigated with Saline -Foul Odor after Cleansing No -Bioengineered Tissue No -Bleeding Controlled with Pressure -Treatment Response Procedure Tolerated Well -Offloading No -Debridement - Subq, 1st 20sq cm No -Debridement - Muscle / Fascia, 1st Yes 20sq cm Pain Scale: 0-10 Numeric Is Patient Pain Free? Yes Assessment/Plan Assessment/Plan (1) Osteomyelitis of ankle or foot, left, acute: CODE(S): M86.172 - Other acute osteomyelitis, left ankle and foot (2) Osteomyelitis of ankle, left, acute: CODE(S): M86.172 - Other acute osteomyelitis, left ankle and foot (3) Abscess of bursa, left ankle and foot: CODE(S): M71.072 - Abscess of bursa, left ankle and foot (4) Cellulitis of left lower limb: CODE(S): L03.116 - Cellulitis of left lower limb (5) Charcot foot due to diabetes mellitus: CODE(S): E11.610 - 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 arthropathy (6) Non-pressure chronic ulcer of left 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: CODE(S): L97.322 - Non-pressure chronic ulcer of left 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 (7) Other acute postprocedural pain: CODE(S): G89.18 - Other acute postprocedural pain (8) Type 2 diabetes mellitus with diabetic polyneuropathy: CODE(S): E11.42 - Type 2 diabetes mellitus with diabetic polyneuropathy QUALIFIERS: Diabetes mellitus counter intelligence agent insulin use: without assisted use Qualified Code(s): E11.42 - Type 2 diabetes mellitus with diabetic polyneuropathy (9) 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 muscle: CODE(S): L97.523 - 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 muscle (10) Gas gangrene of foot: CODE(S): A48.0 - Gas gangrene (11) Diabetic infection of left foot: CODE(S): E11.628 - Type 2 diabetes mellitus with other skin complications; L08.9 - Local infection of the skin and subcutaneous tissue, unspecified (12) 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 bone: CODE(S): L97.524 - 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 bone (13) 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 muscle: CODE(S): L97.523 - 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 muscle (14) Cellulitis: CODE(S): L03.90 - Cellulitis, unspecified QUALIFIERS: Site of cellulitis: extremity Site of cellulitis of extremity: lower extremity Laterality: left Qualified Code(s): L03.116 - Cellulitis of left lower limb (15) Hypertension: CODE(S): I10 - Essential (primary) hypertension QUALIFIERS: Hypertension type: primary hypertension Qualified Code(s): I10 - Essential (primary) hypertension PLAN: Plan The patient appears to be tolerating hyperbaric oxygen therapy well, which will be continued as per their medical treatment plan.
[2023-09-29 15:03] LABS: Bedside Glucose 168 mg/dL (74-106)
[2023-09-30 08:36] LABS: Bedside Glucose 150 mg/dL (74-106)
[2023-09-30 10:39] LABS: Bedside Glucose 146 mg/dL (74-106)
[2023-09-30 11:56] VITALS: BP 116/76; BP 121/76; PULSE 87; PULSE 98; RESP 18; TEMP 36.3
--- NOTE | 2023-09-30 12:47 | HBO.PN.PCM_ITS ---
History of Present Illness Date of Service: 09/30/23 Chief Complaint: Diabetic left foot infection with gas gangrene and osteom yelitis; Li grade 3 diabetic foot infection. History of Wound: This is a 43-year-old male with a history of diabetic foot pathology and infections. On July 15, 2023, the patient underwent reconstruction of the left Charcot foot deformity by means of a left ankle arthrodesis, subtalar joint arthrodesis, midfoot osteotomy with percutaneous pinning, and application of the left lower extremity splint. He subsequently developed left foot and ankle abscess, with full-thickness wounds and osteomyelitis of the left ankle. On September 01, 2023, he underwent incision and drainage of an abscess down to bone, and wound site debridement and wound bed preparation for delayed skin graft application. With respect to his osteomyelitis, the patient is receiving meropenem 3 times daily intravenously for Enterococcus and Pseudomonas infection by means of a PICC line which is located in his left upper arm. He is receiving home health care. Wound care is by means of packing with Dakin's moist to dry dressings, as his surgical wound is only partially closed. A multilayer compression wrap is being used to minimize swelling. The patient is nonweightbearing. He is felt to be in a limb threatening situation, and was referred for evaluation as a prelude to implementing hyperbaric oxygen therapy for Li grade 3 diabetic foot wound with osteomyelitis. A thorough review of systems was undertaken. The patient has no history of pulmonary or otitic barotrauma. In fact, he has previously undergone hyperbaric oxygen therapy sessions in the past, approximately 10 years ago, for diabetic right foot infection. He tolerated hyperbaric oxygen therapy well at that time without incident. 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 His history is negative for seizures and seizure disorder. Pulmonary history is negative. Cardiac history is negative. The patient has no history of renal disease. He has no history of anemia or other hemopoietic abnormalities. There is no history of endocrine problems. He is not a smoker. Recent x-ray reveals moderate lung volumes. Increased AP dimension of the chest. Subsegmental atelectasis suggested in the left lung base. No definite inflammatory infiltrates. No effusions. Mild cardiac enlargement. Normal mediastinum and michelle. Normal visualized pulmonary arteries. Normal visualized aortic arch and descending thoracic aorta. An EKG reveals normal sinus rhythm and is interpreted as a normal EKG. Laboratory results have been reviewed, without any outstanding significant abnormalities. Progress of Wound: Serial monitoring of the patient's wound is underway by Dr. Perkins, podiatric specialist. Subjective Subjective The patient underwent his 10th hyperbaric oxygen therapy session today. The patient is scheduled for a total of 30 such sessions. Tolerance of hyperbaric oxygen therapy: Hyperbaric oxygen therapy was provided as per the facility's protocol. Hyperbaric oxygen therapy was undertaken at 2 krzysztof and 100% oxygen for 90 minutes without air breaks. The patient tolerated hyperbaric oxygen therapy well, without complaints or complications. Upon emergence from the hyperbaric chamber, the patient's vital signs remained stable. Blood sugar levels were monitored both before and after hyperbaric oxygen therapy, and found to be satisfactory. Objective Data Objective Data Vital Signs: Vital Signs Temp Pulse Resp BP O2 Flow Rate 97.4 F L 98 18 116/76 99 09/30/23 11:56 09/30/23 11:56 09/30/23 11:56 09/30/23 11:56 09/08/23 00:33 Oxygen Flow Rate (L/min) 99 Weight: 113.398 kg Body Mass Index (BMI) 33.9 Lab / Micro Data Labs: Laboratory Results - last 24 hr 09/29/23 14:40: POC Glucose 168 H 09/30/23 08:19: POC Glucose 150 H 09/30/23 10:20: POC Glucose 146 H Exam Physical Exam Const alert, oriented x3 and no apparent distress Psych mental status grossly normal, thought process normal, cooperative, affect normal and speech normal Assessment/Plan Assessment/Plan (1) Osteomyelitis of ankle or foot, left, acute: CODE(S): M86.172 - Other acute osteomyelitis, left ankle and foot (2) Osteomyelitis of ankle, left, acute: CODE(S): M86.172 - Other acute osteomyelitis, left ankle and foot (3) Abscess of bursa, left ankle and foot: CODE(S): M71.072 - Abscess of bursa, left ankle and foot (4) Cellulitis of left lower limb: CODE(S): L03.116 - Cellulitis of left lower limb (5) Charcot foot due to diabetes mellitus: CODE(S): E11.610 - 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 arthropathy (6) Non-pressure chronic ulcer of left 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: CODE(S): L97.322 - Non-pressure chronic ulcer of left 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 (7) Other acute postprocedural pain: CODE(S): G89.18 - Other acute postprocedural pain (8) Type 2 diabetes mellitus with diabetic polyneuropathy: CODE(S): E11.42 - Type 2 diabetes mellitus with diabetic polyneuropathy QUALIFIERS: Diabetes mellitus half-way insulin use: without half-way use Qualified Code(s): E11.42 - Type 2 diabetes mellitus with diabetic polyneuropathy (9) 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 muscle: CODE(S): L97.523 - 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 muscle (10) Gas gangrene of foot: CODE(S): A48.0 - Gas gangrene (11) Diabetic infection of left foot: CODE(S): E11.628 - Type 2 diabetes mellitus with other skin complications; L08.9 - Local infection of the skin and subcutaneous tissue, unspecified (12) 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 bone: CODE(S): L97.524 - 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 bone (13) Cellulitis: CODE(S): L03.90 - Cellulitis, unspecified QUALIFIERS: Site of cellulitis: extremity Site of cellulitis of extremity: lower extremity Laterality: left Qualified Code(s): L03.116 - Cell ulitis of left lower limb (14) Hypertension: CODE(S): I10 - Essential (primary) hypertension QUALIFIERS: Hypertension type: primary hypertension Qualified Code(s): I10 - Essential (primary) hypertension PLAN: Plan The patient appears to be tolerating hyperbaric oxygen therapy well, which will be continued as per their medical treatment plan.
--- NOTE | 2023-10-03 07:41 | WC ---
Received a message from Deshawn from [facility], letting us know that the nurse went out this weekend and found the medial ankle wound that recently healed had reopened when the nurse expressed a large amount of drainage from the area. The nurse went ahead and packed the area with Dakin's gauze. Sent note to Dr Perkins via [employer]. Patient is scheduled tomorrow with Dr Perkins.
[2023-10-03 09:05] LABS: Bedside Glucose 203 mg/dL (74-106)
--- NOTE | 2023-10-03 09:18 | HBO.PN.PCM_ITS ---
History of Present Illness Date of Service: 10/03/23 Chief Complaint: Diabetic left foot infection with gas gangrene and osteom yelitis; Li grade 3 diabetic foot infection. History of Wound: This is a 43-year-old male with a history of diabetic foot pathology and infections. On July 15, 2023, the patient underwent reconstruction of the left Charcot foot deformity by means of a left ankle arthrodesis, subtalar joint arthrodesis, midfoot osteotomy with percutaneous pinning, and application of the left lower extremity splint. He subsequently developed left foot and ankle abscess, with full-thickness wounds and osteomyelitis of the left ankle. On September 01, 2023, he underwent incision and drainage of an abscess down to bone, and wound site debridement and wound bed preparation for delayed skin graft application. With respect to his osteomyelitis, the patient is receiving meropenem 3 times daily intravenously for Enterococcus and Pseudomonas infection by means of a PICC line which is located in his left upper arm. He is receiving home health care. Wound care is by means of packing with Dakin's moist to dry dressings, as his surgical wound is only partially closed. A multilayer compression wrap is being used to minimize swelling. The patient is nonweightbearing. He is felt to be in a limb threatening situation, and was referred for evaluation as a prelude to implementing hyperbaric oxygen therapy for Li grade 3 diabetic foot wound with osteomyelitis. A thorough review of systems was undertaken. The patient has no history of pulmonary or otitic barotrauma. In fact, he has previously undergone hyperbaric oxygen therapy sessions in the past, approximately 10 years ago, for diabetic right foot infection. He tolerated hyperbaric oxygen therapy well at that time without incident. 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 His history is negative for seizures and seizure disorder. Pulmonary history is negative. Cardiac history is negative. The patient has no history of renal disease. He has no history of anemia or other hemopoietic abnormalities. There is no history of endocrine problems. He is not a smoker. Recent x-ray reveals moderate lung volumes. Increased AP dimension of the chest. Subsegmental atelectasis suggested in the left lung base. No definite inflammatory infiltrates. No effusions. Mild cardiac enlargement. Normal mediastinum and michelle. Normal visualized pulmonary arteries. Normal visualized aortic arch and descending thoracic aorta. An EKG reveals normal sinus rhythm and is interpreted as a normal EKG. Laboratory results have been reviewed, without any outstanding significant abnormalities. Progress of Wound: Serial monitoring of the patient's wound is underway by Dr. Perkins, podiatric specialist. Subjective Subjective The patient underwent his 11th hyperbaric oxygen therapy session today. The patient is scheduled for a total of 30 such sessions. Tolerance of hyperbaric oxygen therapy: Hyperbaric oxygen therapy was provided as per the facility's protocol. Hyperbaric oxygen therapy was undertaken at 2 krzysztof and 100% oxygen for 90 minutes without air breaks. The patient tolerated hyperbaric oxygen therapy well, without complaints or complications. Upon emergence from the hyperbaric chamber, the patient's vital signs remained stable. Blood sugar levels were monitored both before and after hyperbaric oxygen therapy, and found to be satisfactory. Objective Data Objective Data Vital Signs: Vital Signs Temp Pulse Resp BP O2 Flow Rate 97.4 F L 98 18 116/76 99 09/30/23 11:56 09/30/23 11:56 09/30/23 11:56 09/30/23 11:56 09/08/23 00:33 Oxygen Flow Rate (L/min) 99 Weight: 250 lb Body Mass Index (BMI) 33.9 Lab / Micro Data Labs: Laboratory Results - last 24 hr 10/03/23 08:47: POC Glucose 203 H Exam Physical Exam Const alert, oriented x3 and no apparent distress HEENT normocephalic Tympanic Membrane: TM's normal bilaterally Resp normal respiratory effort Effort and Inspection: able to speak in complete sentences Auscultation: clear to auscultation bilaterally Cardio regular rate and regular rhythm Psych mental status grossly normal, thought process normal, cooperative, affect normal and speech normal Assessment/Plan Assessment/Plan (1) Osteomyelitis of ankle or foot, left, acute: CODE(S): M86.172 - Other acute osteomyelitis, left ankle and foot (2) Osteomyelitis of ankle, left, acute: CODE(S): M86.172 - Other acute osteomyelitis, left ankle and foot (3) Abscess of bursa, left ankle and foot: CODE(S): M71.072 - Abscess of bursa, left ankle and foot (4) Cellulitis of left lower limb: CODE(S): L03.116 - Cellulitis of left lower limb (5) Charcot foot due to diabetes mellitus: CODE(S): E11.610 - 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 arthropathy (6) Non-pressure chronic ulcer of left 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: CODE(S): L97.322 - Non-pressure chronic ulcer of left 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 (7) Other acute postprocedural pain: CODE(S): G89.18 - Other acute postprocedural pain (8) Type 2 diabetes mellitus with diabetic polyneuropathy: CODE(S): E11.42 - Type 2 diabetes mellitus with diabetic polyneuropathy QUALIFIERS: Diabetes mellitus termite treater helper insulin use: without termite treater helper use Qualified Code(s): E11.42 - Type 2 diabetes mellitus with diabetic polyneuropathy (9) 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 muscle: CODE(S): L97.523 - 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 muscle (10) Gas gangrene of foot: CODE(S): A48.0 - Gas gangrene (11) Diabetic infection of left foot: CODE(S): E11.628 - Type 2 diabetes mellitus with other skin complications; L08.9 - Local infection of the skin and subcutaneous tissue, unspecified (12) 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 bone: CODE(S): L97.524 - 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 bone (13) Cellulitis: CODE(S): L03.90 - Cellulitis, unspecified QUALIFIERS: Site of cellulitis: extremity Site of cellulitis of extremity: lower extremity Laterality: left Qualified Code(s): L03.116 - Cellulitis of left lower limb (14) Hypertension: CODE(S): I10 - Essential (primary) hypertension QUALIFIERS: Hypertension type: primary hypertension Qualified Code(s): I10 - Essential (primary) hypertension PLAN: Plan The patient appears to be tolerating hyperbaric oxygen therapy well, which will be continued as per their medical treatment plan.
[2023-10-03 11:08] LABS: Bedside Glucose 167 mg/dL (74-106)
[2023-10-03 11:42] VITALS: BP 123/79; BP 132/70; PULSE 79; PULSE 90; RESP 18; TEMP 36.4; TEMP 36.6
[2023-10-04 11:12] VITALS: BP 137/73; PULSE 93; RESP 18; TEMP 36.1; BMI 33.9
--- NOTE | 2023-10-04 11:55 | PCM.WC.PN ---
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 History of Wound: 43-year-old male status post left Charcot reconstruction. Denies constitutional symptoms. Notes increased drainage to the medial and lateral left ankle. Per nursing dressing change. No other complaints today. Objective Data Objective Data Vital Signs: Vital Signs Temp Pulse Resp BP O2 Flow Rate 97 F L 93 18 137/73 H 99 10/04/23 11:12 10/04/23 11:12 10/04/23 11:12 10/04/23 11:12 09/08/23 00:33 Oxygen Flow Rate (L/min) 99 Weight: 113.398 kg Body Mass Index (BMI) 33.9 Physical Exam Narrative Neurovascular status unchanged Full-thickness wounds to medial ankle, 3 cc purulence drained from the site today. Lateral ankle wound down to the level of bone noted with intact vessel loop closure allowing for partial wound closure, additional 3 cc purulence drained from the site. Pre and postdebridement measurements documented in notes nursing notes. This was debrided down to level of muscle today. No residual abscess noted. Resolved acute signs of infection. No signs of DVT. Const alert and oriented x3 Debridement Note Debridement Note Post-Debridement Measurements and Additional Note: Post-Debridement Measurements/Treatment - Nurse 1 - General Ulcer Assessment Start: 09/13/23 10:02 Freq: Status: Active Protocol: WC.LOWKIRTT Activity Type Activity Date Activity User E-sign Co-sign Detail Recorded Client Recorded Date Recorded By Document 09/13/23 10:02 RB Desktop 09/13/23 10:21 RB Document 09/20/23 09:55 RB Desktop 09/20/23 09:58 RB Document 09/27/23 10:00 RB Desktop 09/27/23 10:03 RB Document 10/04/23 11:12 RB Desktop 10/04/23 11:15 RB 09/13/23 09/20/23 09/27/23 10:02 09:55 10:00 - Today's Visit Information Type of service Follow-up Visit Follow-up Visit Follow-up Visit (Physician/CLINICAL ENGINEERING MANAGER (Physician/CLINICAL ENGINEERING MANAGER (Physician/CLINICAL ENGINEERING MANAGER ) ) ) Arrival Mode Ambulatory Ambulatory Wheelchair Transfer Assistance None None None Patient Identification Verified (Name & Yes Yes Yes ) Patient Requires Transmission-Based No No No Precautions Finger Stick Blood Sugar(mg/dl) (if 100 indicated): Blood Sugar Stated by Patient Height and Weight Body Mass Index (BMI) 33.9 33.9 33.9 BMI Classification Obese Obese Obese Vital Signs Temperature (97.8 F-99.1 F) 96 F L 97 F L 96.7 F L Temperature Source Temporal Temporal Temporal Pulse Rate (60-100) 93 88 94 Pulse Location Monitor Monitor Monitor Respiratory Rate (12-18) 18 18 18 Respiratory rate source Observation Observation Observation Blood Pressure (90/60-120/80) 122/68 H 135/71 H 140/79 H Blood Pressure Mean (mm Hg) 86 92 99 Source Monitor Monitor Monitor Position Semi-Fowlers Semi-Fowlers Semi-Fowlers Blood Pressure Location Left Arm Left Arm Left Arm History Since Last Visit- (Skip if this is Patient's initial visit) Have you changed medications since your No No No last visit? Any new allergies or adverse reactions No No No Had a fall/change in ADL's that may No No No increase risk of falls Signs or symptoms of abuse and/or No No No neglect since last visit Have you been in the hospital since your No No No last visit? Has dressing in place as prescribed Yes Yes Yes Has compression in place as prescribed Yes Yes Yes Has offloadiing in place as prescribed Yes No No Experienced any changes in pain level or No No No management Pain Scale: 0-10 Numeric Is Patient Pain Free? Yes Yes Yes 10/04/23 11:12 - Today's Visit Information Type of service Follow-up Visit (Physician/CLINICAL ENGINEERING MANAGER ) Arrival Mode Wheelchair Transfer Assistance None Patient Identification Verified (Name & Yes ) Patient Requires Transmission-Based No Precautions Finger Stick Blood Sugar(mg/dl) (if indicated): Blood Sugar Height and Weight Body Mass Index (BMI) 33.9 BMI Classification Obese Vital Signs Temperature (97.8 F-99.1 F) 97 F L Temperature Source Temporal Pulse Rate (60-100) 93 Pulse Location Monitor Respiratory Rate (12-18) 18 Respiratory rate source Observation Blood Pressure (90/60-120/80) 137/73 H Blood Pressure Mean (mm Hg) 94 Source Monitor Position Semi-Fowlers Blood Pressure Location Left Arm History Since Last Visit- (Skip if this is Patient's initial visit) Have you changed medications since your No last visit? Any new allergies or adverse reactions No Had a fall/change in ADL's that may No increase risk of falls Signs or symptoms of abuse and/or No neglect since last visit Have you been in the hospital since your No last visit? Has dressing in place as prescribed Yes Has compression in place as prescribed Yes Has offloadiing in place as prescribed No Experienced any changes in pain level or No management Pain Scale: 0-10 Numeric Is Patient Pain Free? Yes WC - Nurse 1 - General Ulcer Measurement Start: 09/13/23 10:02 Freq: Status: Active Protocol: Activity Type Activity Date Activity User E-sign Co-sign Detail Recorded Client Recorded Date Recorded By Document 09/13/23 10:02 RB Desktop 09/13/23 10:21 RB Document 09/20/23 09:55 RB Desktop 09/20/23 09:58 RB Document 09/27/23 10:00 RB Desktop 09/27/23 10:03 RB Document 10/04/23 11:12 RB Desktop 10/04/23 11:15 RB Edit Result 10/04/23 11:12 RB (1) Desktop 10/04/23 11:15 RB (1) Lower Limb Edema Present => Yes Left Calf (cm) => 36 Left Ankle (cm) => 24 09/13/23 09/20/23 09/27/23 10:02 09:55 10:00 Wound Center Nurse 1 7. L lateral ankle -Combined with other wound No No No -Current Size (cm) - Length 3 4.2 2.2 -Current Size (cm) - Width 1 1 1 -Current Size (cm) - Depth 2.5 3 2 -Total Square Cm 3 4.2 2.2 -Photo Taken Yes -Tunneling No No No -Undermining/Tunneling No No Yes -Undermining/Tunneling Starts (O'clock 6 ) -Undermining/Tunneling Ends (O'clock) 10 -Maximum Distance (cm) 2.5 -Circular Undermining No No No -Exudate Amt Medium Large Large -Exudate Type Serosanguineous Serosanguineous Serosanguineous -Wound Margin Distinct, Distinct, Thickened & Outline Outline Rolled Under Attached Attached -Granulation Amt Medium (34-66%) Medium (34-66%) Medium (34-66%) -Granulation Quality [place] -Slough/Fibrin Yes Yes Yes -Necrosis Amt Medium (34-66%) Medium (34-66%) Medium (34-66%) -Necrotic Tissue Type Adherent Slough Adherent Slough Adherent Slough -Structure Exposed N/A N/A N/A -Texture ([place]-wound Skin Appearance) Assessed Assessed, Scarring Scarring -Moisture ([place]-wound Skin Appearance) Assessed Assessed Assessed -Color ([place]-wound Skin Appearance) Assessed Assessed Assessed -Temperature ([place]-wound Skin No Abnormality No Abnormality No Abnormality Appearance) (Pt Warm) (Pt Warm) (Pt Warm) -Tenderness on Palpation ([place]-wound No No No Skin Appearance) -Ulcer Cleansing Wound Cleanser Wound Cleanser Wound Cleanser -Foul Odor after Cleansing No Yes No -Anesthetic Used 4% Lidocaine 4% Lidocaine Solution Solution 6. L medial ankle -Combined with other wound No No No -Current Size (cm) - Length 0.1 1.4 1 -Current Size (cm) - Width 0.1 0.5 0.2 -Current Size (cm) - Depth 0.1 0.5 0.2 -Total Square Cm 0.01 0.70 0.2 -Photo Taken Yes -Tunneling No No No -Undermining/Tunneling No No No -Circular Undermining No No No -Exudate Amt Medium Medium Medium -Exudate Type Serosanguineous Serosanguineous Serosanguineous -Wound Margin Distinct, Distinct, Thickened & Outline Outline Rolled Under Attached Attached -Granulation Amt Medium (34-66%) Medium (34-66%) Medium (34-66%) -Granulation Quality [place] -Slough/Fibrin Yes Yes Yes -Necrosis Amt Medium (34-66%) Medium (34-66%) Medium (34-66%) -Necrotic Tissue Type Adherent Slough Adherent Slough Adherent Slough -Structure Exposed N/A N/A N/A -Texture ([place]-wound Skin Appearance) Assessed Assessed, Assessed, Scarring Scarring -Moisture ([place]-wound Skin Appearance) Assessed Assessed Assessed -Color ([place]-wound Skin Appearance) Assessed Assessed Assessed -Temperature ([place]-wound Skin No Abnormality No Abnormality No Abnormality Appearance) (Pt Warm) (Pt Warm) (Pt Warm) -Tenderness on Palpation ([place]-wound No No No Skin Appearance) -Ulcer Cleansing Wound Cleanser Wound Cleanser Wound Cleanser -Foul Odor after Cleansing No No No -Anesthetic Used 4% Lidocaine 4% Lidocaine Solution Solution Lower Limb Edema Present Yes Yes Yes Left Calf (cm) 34.5 34 35.5 Left Ankle (cm) 30 26 26 10/04/23 11:12 Wound Center Nurse 1 7. L lateral ankle -Combined with other wound No -Current Size (cm) - Length 1.5 -Current Size (cm) - Width 0.8 -Current Size (cm) - Depth 2 -Total Square Cm 1.20 -Photo Taken -Tunneling No -Undermining/Tunneling No -Undermining/Tunneling Starts (O'clock ) -Undermining/Tunneling Ends (O'clock) -Maximum Distance (cm) -Circular Undermining No -Exudate Amt Large -Exudate Type Serosanguineous -Wound Margin Thickened & Rolled Under -Granulation Amt Large (67-100%) -Granulation Quality [place],Red -Slough/Fibrin Yes -Necrosis Amt Small (1-33%) -Necrotic Tissue Type Adherent Slough -Structure Exposed N/A -Texture ([place]-wound Skin Appearance) Assessed, Scarring -Moisture ([place]-wound Skin Appearance) Assessed -Color ([place]-wound Skin Appearance) Assessed -Temperature ([place]-wound Skin No Abnormality Appearance) (Pt Warm) -Tenderness on Palpation ([place]-wound No Skin Appearance) -Ulcer Cleansing Wound Cleanser -Foul Odor after Cleansing No -Anesthetic Used 4% Lidocaine Solution 6. L medial ankle -Combined with other wound No -Current Size (cm) - Length 0.5 -Current Size (cm) - Width 0.5 -Current Size (cm) - Depth 2 -Total Square Cm 0.25 -Photo Taken -Tunneling No -Undermining/Tunneling No -Circular Undermining No -Exudate Amt Large -Exudate Type Purulent -Wound Margin Distinct, Outline Attached -Granulation Amt Medium (34-66%) -Granulation Quality [place] -Slough/Fibrin Yes -Necrosis Amt Medium (34-66%) -Necrotic Tissue Type Adherent Slough -Structure Exposed N/A -Texture ([place]-wound Skin Appearance) Assessed, Scarring -Moisture ([place]-wound Skin Appearance) Assessed -Color ([place]-wound Skin Appearance) Assessed -Temperature ([place]-wound Skin No Abnormality Appearance) (Pt Warm) -Tenderness on Palpation ([place]-wound No Skin Appearance) -Ulcer Cleansing Wound Cleanser -Foul Odor after Cleansing No -Anesthetic Used 4% Lidocaine Solution Lower Limb Edema Present Yes Left Calf (cm) 36 Left Ankle (cm) 24 WC - Nurse 2 - General Ulcer CM Notes Start: 09/13/23 10:02 Freq: Status: Active Protocol: Activity Type Activity Date Activity User E-sign Co-sign Detail Recorded Client Recorded Date Recorded By Document 09/13/23 11:23 [id number] 09/13/23 11:24 Document 09/20/23 10:17 Laptop 09/20/23 10:26 Edit Result 09/20/23 10:17 (1) [id number] 09/20/23 10:30 Document 09/27/23 10:10 Laptop 09/27/23 10:18 Document 10/04/23 11:39 Laptop 10/04/23 11:49 (1) 7. L lateral ankle - Clinical Debridement Subcutaneous => Muscle / Fascia - Tissue Removed Subcutaneous => Muscle,Fascia - Debridement - Muscle / Fascia, 1st => No 20sq cm 6. L medial ankle - Clinical Debridement Subcutaneous => Muscle / Fascia - Tissue Removed Subcutaneous => Muscle,Fascia - Debridement - Subq, 1st 20sq cm Yes => No - Debridement - Muscle / Fascia, 1st => Yes 20sq cm 09/13/23 09/20/23 09/27/23 11:23 10:17 10:10 Wound Center Nurse 2 7. L lateral ankle -Time 11:23 10:17 10:13 -Correct Patient Yes Yes Yes -Correct Side, Site, Position Yes Yes Yes -Correct Procedure Yes Yes Yes -Procedure Performed Yes Yes Yes -Type of Procedure Debridement Debridement Debridement -Clinical Debridement Muscle / Fascia Muscle / Fascia Muscle / Fascia -Tissue Removed Muscle Muscle,Fascia Muscle,Fascia -Post Debridement (cm) - Length 4.9 4.7 3.6 -Post Debridement (cm) - Width 1.0 1.2 1.2 -Post Debridement (cm) - Depth 3.6 3.1 2.3 -Total Square (Post) (cm) 4.90 5.64 4.32 -Area of Debridement (cm) - Length 4.9 4.7 3.6 -Area of Debridement (cm) - Width 1.0 1.2 1.2 -Total Square (Area) (cm) 4.90 5.64 4.32 -Tunneling No No No -Undermining/Tunneling No No No -Circular Undermining No No No -Wound/Ulcer Outcome Not Healed Not Healed Not Healed -Ulcer Cleansing Rinsed/ Rinsed/ Rinsed/ Irrigated with Irrigated with Irrigated with Saline Saline Saline -Foul Odor after Cleansing No No No -Bioengineered Tissue No No No -Bleeding Controlled with Pressure Pressure Pressure -Treatment Response Procedure Procedure Procedure Tolerated Well Tolerated Well Tolerated Well -Offloading No No No -Assistive Device(s) Wheelchair, Walker -Debridement - Subq, 1st 20sq cm No No -Debridement - Muscle / Fascia, 1st Yes No Yes 20sq cm 6. L medial ankle -Time 11:24 10:18 10:13 -Correct Patient Yes Yes No -Correct Side, Site, Position Yes Yes No -Correct Procedure Yes Yes No -Procedure Performed Yes Yes No -Type of Procedure Debridement Debridement -Clinical Debridement Muscle / Fascia Muscle / Fascia Muscle / Fascia -Tissue Removed Muscle Muscle,Fascia -Post Debridement (cm) - Length 2.0 1.7 0 -Post Debridement (cm) - Width 0.3 0.5 0 -Post Debridement (cm) - Depth 0.7 0.6 0 -Total Square (Post) (cm) 0.60 0.85 0 -Area of Debridement (cm) - Length 2.0 1.7 0 -Area of Debridement (cm) - Width 0.3 0.5 0 -Total Square (Area) (cm) 0.60 0.85 0 -Tunneling No No No -Undermining/Tunneling No No No -Circular Undermining No No No -Wound/Ulcer Outcome Not Healed Not Healed Healed- Epithelialized -Ulcer Cleansing Rinsed/ Rinsed/ Irrigated with Irrigated with Saline Saline -Foul Odor after Cleansing No No -Bioengineered Tissue No No -Bleeding Controlled with Pressure Pressure -Treatment Response Procedure Procedure Procedure Tolerated Well Tolerated Well Tolerated Well -Offloading No No No -Assistive Device(s) Wheelchair -Debridement - Subq, 1st 20sq cm No No -Debridement - Muscle / Fascia, 1st No Yes No 20sq cm Pain Scale: 0-10 Numeric Is Patient Pain Free? Yes Yes Yes 10/04/23 11:39 Wound Center Nurse 2 7. L lateral ankle -Time 11:47 -Correct Patient Yes -Correct Side, Site, Position Yes -Correct Procedure Yes -Procedure Performed Yes -Type of Procedure Debridement -Clinical Debridement Muscle / Fascia -Tissue Removed Muscle -Post Debridement (cm) - Length 1.6 -Post Debridement (cm) - Width 0.8 -Post Debridement (cm) - Depth 2.0 -Total Square (Post) (cm) 1.28 -Area of Debridement (cm) - Length 1.6 -Area of Debridement (cm) - Width 0.8 -Total Square (Area) (cm) 1.28 -Tunneling No -Undermining/Tunneling No -Circular Undermining No -Wound/Ulcer Outcome Not Healed -Ulcer Cleansing Rinsed/ Irrigated with Saline -Foul Odor after Cleansing No -Bioengineered Tissue No -Bleeding Controlled with Pressure -Treatment Response Procedure Tolerated Well -Offloading No -Assistive Device(s) -Debridement - Subq, 1st 20sq cm No -Debridement - Muscle / Fascia, 1st No 20sq cm 6. L medial ankle -Time 11:48 -Correct Patient Yes -Correct Side, Site, Position Yes -Correct Procedure Yes -Procedure Performed Yes -Type of Procedure Debridement -Clinical Debridement Muscle / Fascia -Tissue Removed Muscle -Post Debridement (cm) - Length 0.6 -Post Debridement (cm) - Width 0.6 -Post Debridement (cm) - Depth 2.0 -Total Square (Post) (cm) 0.36 -Area of Debridement (cm) - Length 0.6 -Area of Debridement (cm) - Width 0.6 -Total Square (Area) (cm) 0.36 -Tunneling No -Undermining/Tunneling No -Circular Undermining No -Wound/Ulcer Outcome Not Healed -Ulcer Cleansing Rinsed/ Irrigated with Saline -Foul Odor after Cleansing No -Bioengineered Tissue No -Bleeding Controlled with Pressure -Treatment Response Procedure Tolerated Well -Offloading No -Assistive Device(s) -Debridement - Subq, 1st 20sq cm -Debridement - Muscle / Fascia, 1st Yes 20sq cm Pain Scale: 0-10 Numeric Is Patient Pain Free? Yes WC - Nurse 3 - General Ulcer D/C NN Start: 09/13/23 10:02 Freq: Status: Active Protocol: Activity Type Activity Date Activity User E-sign Co-sign Detail Recorded Client Recorded Date Recorded By Document 09/13/23 11:25 [id number] 09/13/23 11:26 Document 09/20/23 10:30 RB Desktop 09/20/23 10:31 RB 09/13/23 09/20/23 11:25 10:30 Wound Care Center Nurse 3 7. L lateral ankle -Ulcer Cleansing Rinsed/ Irrigated with Saline -Foul Odor after Cleansing No -Other Dressing 0.25% dakin's dakins moistened gauze -Primary Dressing Covered/Secured with Dry Gauze Dry Gauze,Dry Gauze & Roll Gauze,Secured with Tape 6. L medial ankle -Ulcer Cleansing Rinsed/ Irrigated with Saline -Foul Odor after Cleansing No -Other Dressing 0.25 Dakin's dakins moistened gauze -Primary Dressing Covered/Secured with Dry Gauze Dry Gauze,Dry Gauze & Roll Gauze,Secured with Tape Left -Lotion applied to leg before Yes compression wrap -Multi-Layered Wrap Application Multi-Layer Comp - Left ($) -Tubular Bandage Double Layer -Size of Tubigrip Used Size E -Size E ($) 2 Treatment Response Procedure Tolerated Well Pain Scale: 0-10 Numeric Is Patient Pain Free? Yes Yes WC - Visit Discharge Discharge Condition Stable Stable Ambulatory Status Wheelchair Wheelchair Transportation Private Auto Private Auto Accompanied by father step father Medication Reconcilliation completed & Yes No provided to patient/care provider Clinical Summary of Care Provided Yes Yes Assessment/Plan Assessment/Plan (1) Osteomyelitis of ankle, left, acute: CODE(S): M86.172 - Other acute osteomyelitis, left ankle and foot PLAN: Exam performed Patient on IV meropenem via PICC line per infectious disease for enterococcal and pseudomonal infection left lower extremity with bone involvement New onset abscess to lateral and medial ankle. Atraumatic aseptic bedside I&D performed to medial lateral ankle. 3 cc. See purulence drained from the lateral ankle and medial ankle. Sites flushed with saline and swab cultured. Will await cultures. Patient is status post Charcot reconstruction. This is a limb salvage case - wound significantly improved Today left lower extremity wound to lateral ankle was debrided down to and including level of muscle excisionally using a 5 mm dermal curette without incident. No anesthesia due to neuropathy. Hemostasis obtained with light compression. Patient tolerated procedure well. Pre and postdebridement measurements documented nursing notes. Change to daily Dakin's packing with DSD and Tubigrip. Patient follows up weekly Patient nonweightbearing left lower extremity Patient receiving HBO therapy Blood sugar well-controlled Follow-up 1 week (2) Charcot foot due to diabetes mellitus: CODE(S): E11.610 - 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 arthropathy (3) Abscess of bursa, left ankle and foot: CODE(S): M71.072 - Abscess of bursa, left ankle and foot (4) Cellulitis of left lower limb: CODE(S): L03.116 - Cellulitis of left lower limb (5) Non-pressure chronic ulcer of left 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: CODE(S): L97.322 - Non-pressure chronic ulcer of left 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 (6) Type 2 diabetes mellitus with diabetic polyneuropathy: CODE(S): E11.42 - Type 2 diabetes mellitus with diabetic polyneuropathy QUALIFIERS: Diabetes mellitus alf insulin use: without alf use Qualified Code(s): E11.42 - Type 2 diabetes mellitus with diabetic polyneuropathy
[2023-10-04 12:17] LABS: Bedside Glucose 136 mg/dL (74-106)
--- NOTE | 2023-10-04 13:46 | HBO.PN.PCM_ITS ---
History of Present Illness Date of Service: 10/04/23 Chief Complaint: Diabetic left foot infection with gas gangrene and osteom yelitis; Li grade 3 diabetic foot infection. History of Wound: 43-year-old male status post left Charcot reconstruction. Denies constitutional symptoms. Notes increased drainage to the medial and lateral left ankle. Per nursing dressing change. No other complaints today. Progress of Wound: Serial monitoring of the patient's wound is underway by Dr. Perkins, podiatric specialist. Subjective Subjective The patient underwent his 12th hyperbaric oxygen therapy session today. The patient is scheduled for a total of 30 such sessions. Tolerance of hyperbaric oxygen therapy: Hyperbaric oxygen therapy was provided as per the facility's protocol. Hyperbaric oxygen therapy was undertaken at 2 krzysztof and 100% oxygen for 90 minutes without air breaks. The patient tolerated hyperbaric oxygen therapy well, without complaints or complications. Upon emergence from the hyperbaric chamber, the patient's vital signs remained stable. Blood sugar levels were monitored both before and after hyperbaric oxygen therapy, and found to be satisfactory. Objective Data Objective Data Vital Signs: Vital Signs Temp Pulse Resp BP O2 Flow Rate 97 F L 93 18 137/73 H 99 10/04/23 11:12 10/04/23 11:12 10/04/23 11:12 10/04/23 11:12 09/08/23 00:33 Oxygen Flow Rate (L/min) 99 Weight: 250 lb Body Mass Index (BMI) 33.9 Lab / Micro Data Labs: Laboratory Results - last 24 hr 10/04/23 11:58: POC Glucose 136 H Exam Physical Exam Const alert, oriented x3 and no apparent distress HEENT normocephalic Tympanic Membrane: TM's normal bilaterally Resp normal respiratory effort Effort and Inspection: able to speak in complete sentences Auscultation: clear to auscultation bilaterally Cardio regular rate and regular rhythm Psych mental status grossly normal, thought process normal, cooperative, affect normal and speech normal Nursing Assessment and Debridement Post-Debridement Measurements and Additional Note: Post-Debridement Measurements/Treatment WC - Nurse 1 - General Ulcer Assessment Start: 09/13/23 10:02 Freq: Status: Active Protocol: [email or web address] Activity Type Activity Date Activity User E-sign Co-sign Detail Recorded Client Recorded Date Recorded By Document 10/04/23 11:12 RB Desktop 10/04/23 11:15 10/04/23 11:12 - Today's Visit Information Type of service Follow-up Visit (Physician/EDUCATION MANAGER ) Arrival Mode Wheelchair Transfer Assistance None Patient Identification Verified (Name & Yes ) Patient Requires Transmission-Based No Precautions Height and Weight Body Mass Index (BMI) 33.9 BMI Classification Obese Vital Signs Temperature (97.8 F-99.1 F) 97 F L Temperature Source Temporal Pulse Rate (60-100) 93 Pulse Location Monitor Respiratory Rate (12-18) 18 Respiratory rate source Observation Blood Pressure (90/60-120/80) 137/73 H Blood Pressure Mean (mm Hg) 94 Source Monitor Position Semi-Fowlers Blood Pressure Location Left Arm History Since Last Visit- (Skip if this is Patient's initial visit) Have you changed medications since your No last visit? Any new allergies or adverse reactions No Had a fall/change in ADL's that may No increase risk of falls Signs or symptoms of abuse and/or No neglect since last visit Have you been in the hospital since your No last visit? Has dressing in place as prescribed Yes Has compression in place as prescribed Yes Has offloadiing in place as prescribed No Experienced any changes in pain level or No management Pain Scale: 0-10 Numeric Is Patient Pain Free? Yes - Nurse 1 - General Ulcer Measurement Start: 09/13/23 10:02 Freq: Status: Active Protocol: Activity Type Activity Date Activity User E-sign Co-sign Detail Recorded Client Recorded Date Recorded By Document 10/04/23 11:12 Desktop 10/04/23 11:15 10/04/23 11:12 Wound Center Nurse 1 7. L lateral ankle -Combined with other wound No -Current Size (cm) - Length 1.5 -Current Size (cm) - Width 0.8 -Current Size (cm) - Depth 2 -Total Square Cm 1.20 -Tunneling No -Undermining/Tunneling No -Circular Undermining No -Exudate Amt Large -Exudate Type Serosanguineous -Wound Margin Thickened & Rolled Under -Granulation Amt Large (67-100%) -Granulation Quality [place],Red -Slough/Fibrin Yes -Necrosis Amt Small (1-33%) -Necrotic Tissue Type Adherent Slough -Structure Exposed N/A -Texture ([place]-wound Skin Appearance) Assessed, Scarring -Moisture ([place]-wound Skin Appearance) Assessed -Color ([place]-wound Skin Appearance) Assessed -Temperature ([place]-wound Skin No Abnormality Appearance) (Pt Warm) -Tenderness on Palpation ([place]-wound No Skin Appearance) -Ulcer Cleansing Wound Cleanser -Foul Odor after Cleansing No -Anesthetic Used 4% Lidocaine Solution 6. L medial ankle -Combined with other wound No -Current Size (cm) - Length 0.5 -Current Size (cm) - Width 0.5 -Current Size (cm) - Depth 2 -Total Square Cm 0.25 -Tunneling No -Undermining/Tunneling No -Circular Undermining No -Exudate Amt Large -Exudate Type Purulent -Wound Margin Distinct, Outline Attached -Granulation Amt Medium (34-66%) -Granulation Quality [place] -Slough/Fibrin Yes -Necrosis Amt Medium (34-66%) -Necrotic Tissue Type Adherent Slough -Structure Exposed N/A -Texture ([place]-wound Skin Appearance) Assessed, Scarring -Moisture ([place]-wound Skin Appearance) Assessed -Color ([place]-wound Skin Appearance) Assessed -Temperature ([place]-wound Skin No Abnormality Appearance) (Pt Warm) -Tenderness on Palpation ([place]-wound No Skin Appearance) -Ulcer Cleansing Wound Cleanser -Foul Odor after Cleansing No -Anesthetic Used 4% Lidocaine Solution Lower Limb Edema Present Yes Left Calf (cm) 36 Left Ankle (cm) 24 - Nurse 2 - General Ulcer CM Notes Start: 09/13/23 10:02 Freq: Status: Active Protocol: Activity Type Activity Date Activity User E-sign Co-sign Detail Recorded Client Recorded Date Recorded By Document 10/04/23 11:39 Laptop 10/04/23 11:49 10/04/23 11:39 Wound Center Nurse 2 7. L lateral ankle -Time 11:47 -Correct Patient Yes -Correct Side, Site, Position Yes -Correct Procedure Yes -Procedure Performed Yes -Type of Procedure Debridement -Clinical Debridement Muscle / Fascia -Tissue Removed Muscle -Post Debridement (cm) - Length 1.6 -Post Debridement (cm) - Width 0.8 -Post Debridement (cm) - Depth 2.0 -Total Square (Post) (cm) 1.28 -Area of Debridement (cm) - Length 1.6 -Area of Debridement (cm) - Width 0.8 -Total Square (Area) (cm) 1.28 -Tunneling No -Undermining/Tunneling No -Circular Undermining No -Wound/Ulcer Outcome Not Healed -Ulcer Cleansing Rinsed/ Irrigated with Saline -Foul Odor after Cleansing No -Bioengineered Tissue No -Bleeding Controlled with Pressure -Treatment Response Procedure Tolerated Well -Offloading No -Debridement - Subq, 1st 20sq cm No -Debridement - Muscle / Fascia, 1st No 20sq cm 6. L medial ankle -Time 11:48 -Correct Patient Yes -Correct Side, Site, Position Yes -Correct Procedure Yes -Procedure Performed Yes -Type of Procedure Debridement -Clinical Debridement Muscle / Fascia -Tissue Removed Muscle -Post Debridement (cm) - Length 0.6 -Post Debridement (cm) - Width 0.6 -Post Debridement (cm) - Depth 2.0 -Total Square (Post) (cm) 0.36 -Area of Debridement (cm) - Length 0.6 -Area of Debridement (cm) - Width 0.6 -Total Square (Area) (cm) 0.36 -Tunneling No -Undermining/Tunneling No -Circular Undermining No -Wound/Ulcer Outcome Not Healed -Ulcer Cleansing Rinsed/ Irrigated with Saline -Foul Odor after Cleansing No -Bioengineered Tissue No -Bleeding Controlled with Pressure -Treatment Response Procedure Tolerated Well -Offloading No -Debridement - Muscle / Fascia, 1st Yes 20sq cm Pain Scale: 0-10 Numeric Is Patient Pain Free? Yes - Nurse 3 - General Ulcer D/C NN Start: 09/13/23 10:02 Freq: Status: Active Protocol: Activity Type Activity Date Activity User E-sign Co-sign Detail Recorded Client Recorded Date Recorded By Document 10/04/23 11:58 RB Desktop 10/04/23 12:00 RB 10/04/23 11:58 Wound Care Center Nurse 3 7. L lateral ankle -Ulcer Cleansing Wound Cleanser -Other Dressing daknins moistened gauze / abd -Primary Dressing Covered/Secured with Dry Gauze,Dry Gauze & Roll Gauze,Secured with Tape 6. L medial ankle -Other Dressing dakins mistened gauze/ abd -Primary Dressing Covered/Secured with Dry Gauze,Dry Gauze & Roll Gauze,Secured with Tape Right -Tubular Bandage Single Layer -Size of Tubigrip Used Size F -Size F ($) 1 Left -Tubular Bandage Single Layer -Size of Tubigrip Used Size F -Size F ($) 1 Treatment Response Procedure Tolerated Well Pain Scale: 0-10 Numeric Is Patient Pain Free? Yes Teaching: Wound Center Compression Wraps & Stockings -Person Taught Patient -Teaching Method Discussion, Demonstration -Response to teaching Verbalize understanding WC - Visit Discharge Discharge Condition Stable Ambulatory Status Wheelchair Medication Reconcilliation completed & No provided to patient/care provider Clinical Summary of Care Provided Yes Notes: Marely Cline lpn, Priti Feltons Rn assisted with dressing application Assessment/Plan Assessment/Plan (1) Osteomyelitis of ankle or foot, left, acute: CODE(S): M86.172 - Other acute osteomyelitis, left ankle and foot (2) Osteomyelitis of ankle, left, acute: CODE(S): M86.172 - Other acute osteomyelitis, left ankle and foot (3) Abscess of bursa, left ankle and foot: CODE(S): M71.072 - Abscess of bursa, left ankle and foot (4) Cellulitis of left lower limb: CODE(S): L03.116 - Cellulitis of left lower limb (5) Charcot foot due to diabetes mellitus: CODE(S): E11.610 - 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 arthropathy (6) Non-pressure chronic ulcer of left 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: CODE(S): L97.322 - Non-pressure chronic ulcer of left 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 (7) Other acute postprocedural pain: CODE(S): G89.18 - Other acute postprocedural pain (8) Type 2 diabetes mellitus with diabetic polyneuropathy: CODE(S): E11.42 - Type 2 diabetes mellitus with diabetic polyneuropathy QUALIFIERS: Diabetes mellitus superintendent terminal insulin use: without superintendent terminal use Qualified Code(s): E11.42 - Type 2 diabetes mellitus with diabetic polyneuropathy (9) 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 muscle: CODE(S): L97.523 - 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 muscle (10) Gas gangrene of foot: CODE(S): A48.0 - Gas gangrene (11) Diabetic infection of left foot: CODE(S): E11.628 - Type 2 diabetes mellitus with other skin complications; L08.9 - Local infection of the skin and subcutaneous tissue, unspecified (12) 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 bone: CODE(S): L97.524 - 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 bone (13) Cellulitis: CODE(S): L03.90 - Cellulitis, unspecified QUALIFIERS: Site of cellulitis: extremity Site of cellulitis of extremity: lower extremity Laterality: left Qualified Code(s): L03.116 - Cellulitis of left lower limb (14) Hypertension: CODE(S): I10 - Essential (primary) hypertension QUALIFIERS: Hypertension type: primary hypertension Qualified Code(s): I10 - Essential (primary) hypertension PLAN: Plan The patient appears to be tolerating hyperbaric oxygen therapy well, which will be continued as per their medical treatment plan.
[2023-10-04 14:32] LABS: Bedside Glucose 128 mg/dL (74-106)
[2023-10-04 14:36] VITALS: BP 113/67; BP 127/80; PULSE 81; PULSE 85; RESP 18; TEMP 36.3; TEMP 36.4
[2023-10-05 13:00] LABS: Bedside Glucose 136 mg/dL (74-106)
--- NOTE | 2023-10-05 13:05 | HBO.PN.PCM_ITS ---
History of Present Illness Date of Service: 10/05/23 Chief Complaint: Diabetic left foot infection with gas gangrene and osteom yelitis; Li grade 3 diabetic foot infection. History of Wound: 43-year-old male status post left Charcot reconstruction. Denies constitutional symptoms. Notes increased drainage to the medial and lateral left ankle. Per nursing dressing change. No other complaints today. Progress of Wound: Serial monitoring of the patient's wound is underway by Dr. Perkins, podiatric specialist. Subjective Subjective The patient underwent his 13th hyperbaric oxygen therapy session today. The patient is scheduled for a total of 30 such sessions. Tolerance of hyperbaric oxygen therapy: Hyperbaric oxygen therapy was provided as per the facility's protocol. Hyperbaric oxygen therapy was undertaken at 2 krzysztof and 100% oxygen for 90 minutes without air breaks. The patient tolerated hyperbaric oxygen therapy well, without complaints or complications. Upon emergence from the hyperbaric chamber, the patient's vital signs remained stable. Blood sugar levels were monitored both before and after hyperbaric oxygen therapy, and found to be satisfactory. Objective Data Objective Data Vital Signs: Vital Signs Temp Pulse Resp BP O2 Flow Rate 97.6 F L 85 18 127/80 H 99 10/04/23 14:36 10/04/23 14:36 10/04/23 14:36 10/04/23 14:36 09/08/23 00:33 Oxygen Flow Rate (L/min) 99 Weight: 250 lb Body Mass Index (BMI) 33.9 Lab / Micro Data Labs: Laboratory Results - last 24 hr 10/04/23 14:14: POC Glucose 128 H 10/05/23 12:41: POC Glucose 136 H Micro: Microbiology 10/04/23 11:40 Wound - Ankle Gram Stain - Final Exam Physical Exam Const alert, oriented x3 and no apparent distress HEENT normocephalic Tympanic Membrane: TM's normal bilaterally Resp normal respiratory effort Effort and Inspection: able to speak in complete sentences Auscultation: clear to auscultation bilaterally Cardio regular rate and regular rhythm Psych mental status grossly normal, thought process normal, cooperative, affect normal and speech normal Nursing Assessment and Debridement Post-Debridement Measurements and Additional Note: Post-Debridement Measurements/Treatment WC - Nurse 1 - General Ulcer Assessment Start: 09/13/23 10:02 Freq: Status: Active Protocol: WC.LOWEXT Activity Type Activity Date Activity User E-sign Co-sign Detail Recorded Client Recorded Date Recorded By Document 10/04/23 11:12 Desktop 10/04/23 11:15 10/04/23 11:12 - Today's Visit Information Type of service Follow-up Visit (Physician/ANGER CONTROL COUNSELOR ) Arrival Mode Wheelchair Transfer Assistance None Patient Identification Verified (Name & Yes ) Patient Requires Transmission-Based No Precautions Height and Weight Body Mass Index (BMI) 33.9 BMI Classification Obese Vital Signs Temperature (97.8 F-99.1 F) 97 F L Temperature Source Temporal Pulse Rate (60-100) 93 Pulse Location Monitor Respiratory Rate (12-18) 18 Respiratory rate source Observation Blood Pressure (90/60-120/80) 137/73 H Blood Pressure Mean (mm Hg) 94 Source Monitor Position Semi-Fowlers Blood Pressure Location Left Arm History Since Last Visit- (Skip if this is Patient's initial visit) Have you changed medications since your No last visit? Any new allergies or adverse reactions No Had a fall/change in ADL's that may No increase risk of falls Signs or symptoms of abuse and/or No neglect since last visit Have you been in the hospital since your No last visit? Has dressing in place as prescribed Yes Has compression in place as prescribed Yes Has offloadiing in place as prescribed No Experienced any changes in pain level or No management Pain Scale: 0-10 Numeric Is Patient Pain Free? Yes - Nurse 1 - General Ulcer Measurement Start: 09/13/23 10:02 Freq: Status: Active Protocol: Activity Type Activity Date Activity User E-sign Co-sign Detail Recorded Client Recorded Date Recorded By Document 10/04/23 11:12 [employer] 10/04/23 11:15 10/04/23 11:12 Wound Center Nurse 1 7. L lateral ankle -Combined with other wound No -Current Size (cm) - Length 1.5 -Current Size (cm) - Width 0.8 -Current Size (cm) - Depth 2 -Total Square Cm 1.20 -Tunneling No -Undermining/Tunneling No -Circular Undermining No -Exudate Amt Large -Exudate Type Serosanguineous -Wound Margin Thickened & Rolled Under -Granulation Amt Large (67-100%) -Granulation Quality [place],Red -Slough/Fibrin Yes -Necrosis Amt Small (1-33%) -Necrotic Tissue Type Adherent Slough -Structure Exposed N/A -Texture ([place]-wound Skin Appearance) Assessed, Scarring -Moisture ([place]-wound Skin Appearance) Assessed -Color ([place]-wound Skin Appearance) Assessed -Temperature ([place]-wound Skin No Abnormality Appearance) (Pt Warm) -Tenderness on Palpation ([place]-wound No Skin Appearance) -Ulcer Cleansing Wound Cleanser -Foul Odor after Cleansing No -Anesthetic Used 4% Lidocaine Solution 6. L medial ankle -Combined with other wound No -Current Size (cm) - Length 0.5 -Current Size (cm) - Width 0.5 -Current Size (cm) - Depth 2 -Total Square Cm 0.25 -Tunneling No -Undermining/Tunneling No -Circular Undermining No -Exudate Amt Large -Exudate Type Purulent -Wound Margin Distinct, Outline Attached -Granulation Amt Medium (34-66%) -Granulation Quality [place] -Slough/Fibrin Yes -Necrosis Amt Medium (34-66%) -Necrotic Tissue Type Adherent Slough -Structure Exposed N/A -Texture ([place]-wound Skin Appearance) Assessed, Scarring -Moisture ([place]-wound Skin Appearance) Assessed -Color ([place]-wound Skin Appearance) Assessed -Temperature ([place]-wound Skin No Abnormality Appearance) (Pt Warm) -Tenderness on Palpation ([place]-wound No Skin Appearance) -Ulcer Cleansing Wound Cleanser -Foul Odor after Cleansing No -Anesthetic Used 4% Lidocaine Solution Lower Limb Edema Present Yes Left Calf (cm) 36 Left Ankle (cm) 24 WC - Nurse 2 - General Ulcer CM Notes Start: 09/13/23 10:02 Freq: Status: Active Protocol: Activity Type Activity Date Activity User E-sign Co-sign Detail Recorded Client Recorded Date Recorded By Document 10/04/23 11:39 Laptop 10/04/23 11:49 10/04/23 11:39 Wound Center Nurse 2 7. L lateral ankle -Time 11:47 -Correct Patient Yes -Correct Side, Site, Position Yes -Correct Procedure Yes -Procedure Performed Yes -Type of Procedure Debridement -Clinical Debridement Muscle / Fascia -Tissue Removed Muscle -Post Debridement (cm) - Length 1.6 -Post Debridement (cm) - Width 0.8 -Post Debridement (cm) - Depth 2.0 -Total Square (Post) (cm) 1.28 -Area of Debridement (cm) - Length 1.6 -Area of Debridement (cm) - Width 0.8 -Total Square (Area) (cm) 1.28 -Tunneling No -Undermining/Tunneling No -Circular Undermining No -Wound/Ulcer Outcome Not Healed -Ulcer Cleansing Rinsed/ Irrigated with Saline -Foul Odor after Cleansing No -Bioengineered Tissue No -Bleeding Controlled with Pressure -Treatment Response Procedure Tolerated Well -Offloading No -Debridement - Subq, 1st 20sq cm No -Debridement - Muscle / Fascia, 1st No 20sq cm 6. L medial ankle -Time 11:48 -Correct Patient Yes -Correct Side, Site, Position Yes -Correct Procedure Yes -Procedure Performed Yes -Type of Procedure Debridement -Clinical Debridement Muscle / Fascia -Tissue Removed Muscle -Post Debridement (cm) - Length 0.6 -Post Debridement (cm) - Width 0.6 -Post Debridement (cm) - Depth 2.0 -Total Square (Post) (cm) 0.36 -Area of Debridement (cm) - Length 0.6 -Area of Debridement (cm) - Width 0.6 -Total Square (Area) (cm) 0.36 -Tunneling No -Undermining/Tunneling No -Circular Undermining No -Wound/Ulcer Outcome Not Healed -Ulcer Cleansing Rinsed/ Irrigated with Saline -Foul Odor after Cleansing No -Bioengineered Tissue No -Bleeding Controlled with Pressure -Treatment Response Procedure Tolerated Well -Offloading No -Debridement - Muscle / Fascia, 1st Yes 20sq cm Pain Scale: 0-10 Numeric Is Patient Pain Free? Yes - Nurse 3 - General Ulcer D/C NN Start: 09/13/23 10:02 Freq: Status: Active Protocol: Activity Type Activity Date Activity User E-sign Co-sign Detail Recorded Client Recorded Date Recorded By Document 10/04/23 11:58 RB Desktop 10/04/23 12:00 RB 10/04/23 11:58 Wound Care Center Nurse 3 7. L lateral ankle -Ulcer Cleansing Wound Cleanser -Other Dressing daknins moistened gauze / abd -Primary Dressing Covered/Secured with Dry Gauze,Dry Gauze & Roll Gauze,Secured with Tape 6. L medial ankle -Other Dressing dakins mistened gauze/ abd -Primary Dressing Covered/Secured with Dry Gauze,Dry Gauze & Roll Gauze,Secured with Tape Right -Tubular Bandage Single Layer -Size of Tubigrip Used Size F -Size F ($) 1 Left -Tubular Bandage Single Layer -Size of Tubigrip Used Size F -Size F ($) 1 Treatment Response Procedure Tolerated Well Pain Scale: 0-10 Numeric Is Patient Pain Free? Yes Teaching: Wound Center Compression Wraps & Stockings -Person Taught Patient -Teaching Method Discussion, Demonstration -Response to teaching Verbalize understanding WC - Visit Discharge Discharge Condition Stable Ambulatory Status Wheelchair Medication Reconcilliation completed & No provided to patient/care provider Clinical Summary of Care Provided Yes Notes: Marely Cline lpn, Priti Feltons Rn assisted with dressing application Assessment/Plan Assessment/Plan (1) Osteomyelitis of ankle or foot, left, acute: CODE(S): M86.172 - Other acute osteomyelitis, left ankle and foot (2) Osteomyelitis of ankle, left, acute: CODE(S): M86.172 - Other acute osteomyelitis, left ankle and foot (3) Abscess of bursa, left ankle and foot: CODE(S): M71.072 - Abscess of bursa, left ankle and foot (4) Cellulitis of left lower limb: CODE(S): L03.116 - Cellulitis of left lower limb (5) Charcot foot due to diabetes mellitus: CODE(S): E11.610 - 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 arthropathy (6) Non-pressure chronic ulcer of left 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: CODE(S): L97.322 - Non-pressure chronic ulcer of left 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 (7) Other acute postprocedural pain: CODE(S): G89.18 - Other acute postprocedural pain (8) Type 2 diabetes mellitus with diabetic polyneuropathy: CODE(S): E11.42 - Type 2 diabetes mellitus with diabetic polyneuropathy QUALIFIERS: Diabetes mellitus termite control servicer insulin use: without termite control servicer use Qualified Code(s): E11.42 - Type 2 diabetes mellitus with diabetic polyneuropathy (9) 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 muscle: CODE(S): L97.523 - 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 muscle (10) Gas gangrene of foot: CODE(S): A48.0 - Gas gangrene (11) Diabetic infection of left foot: CODE(S): E11.628 - Type 2 diabetes mellitus with other skin complications; L08.9 - Local infection of the skin and subcutaneous tissue, unspecified (12) 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 bone: CODE(S): L97.524 - 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 bone (13) Cellulitis: CODE(S): L03.90 - Cellulitis, unspecified QUALIFIERS: Site of cellulitis: extremity Site of cellulitis of extremity: lower extremity Laterality: left Qualified Code(s): L03.116 - Cellulitis of left lower limb (14) Hypertension: CODE(S): I10 - Essential (primary) hypertension QUALIFIERS: Hypertension type: primary hypertension Qualified Code(s): I10 - Essential (primary) hypertension PLAN: Plan The patient appears to be tolerating hyperbaric oxygen therapy well, which will be continued as per their medical treatment plan.
[2023-10-05 13:18] VITALS: BP 131/84; BP 133/87; PULSE 89; PULSE 91; RESP 18; RESP 20; TEMP 36; TEMP 36.1
[2023-10-05 15:10] LABS: Bedside Glucose 130 mg/dL (74-106)
--- NOTE | 2023-10-06 13:03 | HBO.PN.PCM_ITS ---
History of Present Illness Date of Service: 10/06/23 Chief Complaint: Diabetic left foot infection with gas gangrene and osteom yelitis; Li grade 3 diabetic foot infection. History of Wound: 43-year-old male status post left Charcot reconstruction. Denies constitutional symptoms. Notes increased drainage to the medial and lateral left ankle. Per nursing dressing change. No other complaints today. Progress of Wound: Serial monitoring of the patient's wound is underway by Dr. Perkins, podiatric specialist. Subjective Subjective The patient underwent his 14th hyperbaric oxygen therapy session today. The patient is scheduled for a total of 30 such sessions. Tolerance of hyperbaric oxygen therapy: Hyperbaric oxygen therapy was provided as per the facility's protocol. Hyperbaric oxygen therapy was undertaken at 2 krzysztof and 100% oxygen for 90 minutes without air breaks. The patient tolerated hyperbaric oxygen therapy well, without complaints or complications. Upon emergence from the hyperbaric chamber, the patient's vital signs remained stable. Blood sugar levels were monitored both before and after hyperbaric oxygen therapy, and found to be satisfactory. Objective Data Objective Data Vital Signs: Vital Signs Temp Pulse Resp BP O2 Flow Rate 96.9 F L 91 20 H 131/84 H 99 10/05/23 13:18 10/05/23 13:18 10/05/23 13:18 10/05/23 13:18 09/08/23 00:33 Oxygen Flow Rate (L/min) 99 Weight: 250 lb Body Mass Index (BMI) 33.9 Lab / Micro Data Labs: Laboratory Results - last 24 hr 10/05/23 14:52: POC Glucose 130 H Micro: Microbiology 10/04/23 11:40 Wound - Ankle Gram Stain - Final 10/04/23 11:40 Wound - Ankle Wound Culture - Final No growth aerobically. 10/04/23 11:40 Wound - Ankle Anaerobic Culture - Preliminary No growth in 48 hours. Exam Physical Exam Const alert, oriented x3 and no apparent distress HEENT normocephalic Tympanic Membrane: TM's normal bilaterally Resp normal respiratory effort Effort and Inspection: able to speak in complete sentences Auscultation: clear to auscultation bilaterally Cardio regular rate and regular rhythm Psych mental status grossly normal, thought process normal, cooperative, affect normal and speech normal Nursing Assessment and Debridement Post-Debridement Measurements and Additional Note: Post-Debridement Measurements/Treatment WC - Nurse 1 - General Ulcer Assessment Start: 09/13/23 10:02 Freq: Status: Active Protocol: GWEN Activity Type Activity Date Activity User E-sign Co-sign Detail Recorded Client Recorded Date Recorded By Document 10/04/23 11:12 RB Desktop 10/04/23 11:15 10/04/23 11:12 WC - Today's Visit Information Type of service Follow-up Visit (Physician/EXHIBIT DESIGNER ) Arrival Mode Wheelchair Transfer Assistance None Patient Identification Verified (Name & Yes ) Patient Requires Transmission-Based No Precautions Height and Weight Body Mass Index (BMI) 33.9 BMI Classification Obese Vital Signs Temperature (97.8 F-99.1 F) 97 F L Temperature Source Temporal Pulse Rate (60-100) 93 Pulse Location Monitor Respiratory Rate (12-18) 18 Respiratory rate source Observation Blood Pressure (90/60-120/80) 137/73 H Blood Pressure Mean (mm Hg) 94 Source Monitor Position Semi-Fowlers Blood Pressure Location Left Arm History Since Last Visit- (Skip if this is Patient's initial visit) Have you changed medications since your No last visit? Any new allergies or adverse reactions No Had a fall/change in ADL's that may No increase risk of falls Signs or symptoms of abuse and/or No neglect since last visit Have you been in the hospital since your No last visit? Has dressing in place as prescribed Yes Has compression in place as prescribed Yes Has offloadiing in place as prescribed No Experienced any changes in pain level or No management Pain Scale: 0-10 Numeric Is Patient Pain Free? Yes - Nurse 1 - General Ulcer Measurement Start: 09/13/23 10:02 Freq: Status: Active Protocol: Activity Type Activity Date Activity User E-sign Co-sign Detail Recorded Client Recorded Date Recorded By Document 10/04/23 11:12 RB Desktop 10/04/23 11:15 RB 10/04/23 11:12 Wound Center Nurse 1 7. L lateral ankle -Combined with other wound No -Current Size (cm) - Length 1.5 -Current Size (cm) - Width 0.8 -Current Size (cm) - Depth 2 -Total Square Cm 1.20 -Tunneling No -Undermining/Tunneling No -Circular Undermining No -Exudate Amt Large -Exudate Type Serosanguineous -Wound Margin Thickened & Rolled Under -Granulation Amt Large (67-100%) -Granulation Quality [place],Red -Slough/Fibrin Yes -Necrosis Amt Small (1-33%) -Necrotic Tissue Type Adherent Slough -Structure Exposed N/A -Texture ([place]-wound Skin Appearance) Assessed, Scarring -Moisture ([place]-wound Skin Appearance) Assessed -Color ([place]-wound Skin Appearance) Assessed -Temperature ([place]-wound Skin No Abnormality Appearance) (Pt Warm) -Tenderness on Palpation ([place]-wound No Skin Appearance) -Ulcer Cleansing Wound Cleanser -Foul Odor after Cleansing No -Anesthetic Used 4% Lidocaine Solution 6. L medial ankle -Combined with other wound No -Current Size (cm) - Length 0.5 -Current Size (cm) - Width 0.5 -Current Size (cm) - Depth 2 -Total Square Cm 0.25 -Tunneling No -Undermining/Tunneling No -Circular Undermining No -Exudate Amt Large -Exudate Type Purulent -Wound Margin Distinct, Outline Attached -Granulation Amt Medium (34-66%) -Granulation Quality [place] -Slough/Fibrin Yes -Necrosis Amt Medium (34-66%) -Necrotic Tissue Type Adherent Slough -Structure Exposed N/A -Texture ([place]-wound Skin Appearance) Assessed, Scarring -Moisture ([place]-wound Skin Appearance) Assessed -Color ([place]-wound Skin Appearance) Assessed -Temperature ([place]-wound Skin No Abnormality Appearance) (Pt Warm) -Tenderness on Palpation ([place]-wound No Skin Appearance) -Ulcer Cleansing Wound Cleanser -Foul Odor after Cleansing No -Anesthetic Used 4% Lidocaine Solution Lower Limb Edema Present Yes Left Calf (cm) 36 Left Ankle (cm) 24 - Nurse 2 - General Ulcer CM Notes Start: 09/13/23 10:02 Freq: Status: Active Protocol: Activity Type Activity Date Activity User E-sign Co-sign Detail Recorded Client Recorded Date Recorded By Document 10/04/23 11:39 Laptop 10/04/23 11:49 10/04/23 11:39 Wound Center Nurse 2 7. L lateral ankle -Time 11:47 -Correct Patient Yes -Correct Side, Site, Position Yes -Correct Procedure Yes -Procedure Performed Yes -Type of Procedure Debridement -Clinical Debridement Muscle / Fascia -Tissue Removed Muscle -Post Debridement (cm) - Length 1.6 -Post Debridement (cm) - Width 0.8 -Post Debridement (cm) - Depth 2.0 -Total Square (Post) (cm) 1.28 -Area of Debridement (cm) - Length 1.6 -Area of Debridement (cm) - Width 0.8 -Total Square (Area) (cm) 1.28 -Tunneling No -Undermining/Tunneling No -Circular Undermining No -Wound/Ulcer Outcome Not Healed -Ulcer Cleansing Rinsed/ Irrigated with Saline -Foul Odor after Cleansing No -Bioengineered Tissue No -Bleeding Controlled with Pressure -Treatment Response Procedure Tolerated Well -Offloading No -Debridement - Subq, 1st 20sq cm No -Debridement - Muscle / Fascia, 1st No 20sq cm 6. L medial ankle -Time 11:48 -Correct Patient Yes -Correct Side, Site, Position Yes -Correct Procedure Yes -Procedure Performed Yes -Type of Procedure Debridement -Clinical Debridement Muscle / Fascia -Tissue Removed Muscle -Post Debridement (cm) - Length 0.6 -Post Debridement (cm) - Width 0.6 -Post Debridement (cm) - Depth 2.0 -Total Square (Post) (cm) 0.36 -Area of Debridement (cm) - Length 0.6 -Area of Debridement (cm) - Width 0.6 -Total Square (Area) (cm) 0.36 -Tunneling No -Undermining/Tunneling No -Circular Undermining No -Wound/Ulcer Outcome Not Healed -Ulcer Cleansing Rinsed/ Irrigated with Saline -Foul Odor after Cleansing No -Bioengineered Tissue No -Bleeding Controlled with Pressure -Treatment Response Procedure Tolerated Well -Offloading No -Debridement - Muscle / Fascia, 1st Yes 20sq cm Pain Scale: 0-10 Numeric Is Patient Pain Free? Yes WC - Nurse 3 - General Ulcer D/C NN Start: 09/13/23 10:02 Freq: Status: Active Protocol: Activity Type Activity Date Activity User E-sign Co-sign Detail Recorded Client Recorded Date Recorded By Document 10/04/23 11:58 RB Desktop 10/04/23 12:00 RB 10/04/23 11:58 Wound Care Center Nurse 3 7. L lateral ankle -Ulcer Cleansing Wound Cleanser -Other Dressing daknins moistened gauze / abd -Primary Dressing Covered/Secured with Dry Gauze,Dry Gauze & Roll Gauze,Secured with Tape 6. L medial ankle -Other Dressing dakins mistened gauze/ abd -Primary Dressing Covered/Secured with Dry Gauze,Dry Gauze & Roll Gauze,Secured with Tape Right -Tubular Bandage Single Layer -Size of Tubigrip Used Size F -Size F ($) 1 Left -Tubular Bandage Single Layer -Size of Tubigrip Used Size F -Size F ($) 1 Treatment Response Procedure Tolerated Well Pain Scale: 0-10 Numeric Is Patient Pain Free? Yes Teaching: Wound Center Compression Wraps & Stockings -Person Taught Patient -Teaching Method Discussion, Demonstration -Response to teaching Verbalize understanding WC - Visit Discharge Discharge Condition Stable Ambulatory Status Wheelchair Medication Reconcilliation completed & No provided to patient/care provider Clinical Summary of Care Provided Yes Notes: Marely Cline lpn, Priti Feltons Rn assisted with dressing application Assessment/Plan Assessment/Plan (1) Osteomyelitis of ankle or foot, left, acute: CODE(S): M86.172 - Other acute osteomyelitis, left ankle and foot (2) Osteomyelitis of ankle, left, acute: CODE(S): M86.172 - Other acute osteomyelitis, left ankle and foot (3) Abscess of bursa, left ankle and foot: CODE(S): M71.072 - Abscess of bursa, left ankle and foot (4) Cellulitis of left lower limb: CODE(S): L03.116 - Cellulitis of left lower limb (5) Charcot foot due to diabetes mellitus: CODE(S): E11.610 - 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 arthropathy (6) Non-pressure chronic ulcer of left 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: CODE(S): L97.322 - Non-pressure chronic ulcer of left 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 (7) Other acute postprocedural pain: CODE(S): G89.18 - Other acute postprocedural pain (8) Type 2 diabetes mellitus with diabetic polyneuropathy: CODE(S): E11.42 - Type 2 diabetes mellitus with diabetic polyneuropathy QUALIFIERS: Diabetes mellitus superintendent marine oil terminal insulin use: without usp use Qualified Code(s): E11.42 - Type 2 diabetes mellitus with diabetic polyneuropathy (9) 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 muscle: CODE(S): L97.523 - 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 muscle (10) Gas gangrene of foot: CODE(S): A48.0 - Gas gangrene (11) Diabetic infection of left foot: CODE(S): E11.628 - Type 2 diabetes mellitus with other skin complications; L08.9 - Local infection of the skin and subcutaneous tissue, unspecified (12) 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 bone: CODE(S): L97.524 - 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 bone (13) Cellulitis: CODE(S): L03.90 - Cellulitis, unspecified QUALIFIERS: Site of cellulitis: extremity Site of cellulitis of extremity: lower extremity Laterality: left Qualified Code(s): L03.116 - Cellulitis of left lower limb (14) Hypertension: CODE(S): I10 - Essential (primary) hypertension QUALIFIERS: Hypertension type: primary hypertension Qualified Code(s): I10 - Essential (primary) hypertension PLAN: Plan The patient appears to be tolerating hyperbaric oxygen therapy well, which will be continued as per their medical treatment plan.
[2023-10-06 13:05] LABS: Bedside Glucose 206 mg/dL (74-106)
[2023-10-06 13:16] VITALS: BP 122/79; BP 130/84; PULSE 88; PULSE 91; RESP 18; TEMP 36; TEMP 36.3
[2023-10-06 15:10] LABS: Bedside Glucose 162 mg/dL (74-106)
== END 2023-10-06 23:59 | disposition home or self-care (01) ==
LOC: WC 13:00
PROVIDERS: Podiatrist; PCP Student in an Organized Health Care Education/Training Program; Referring Provider Surgery; Visit Provider Surgery
DX: E11.621 Type 2 diabetes mellitus with foot ulcer (principal); E11.52 Type 2 diabetes mellitus with diabetic peripheral angiopathy with gangrene; A48.0 Gas gangrene; L97.524 Non-pressure chronic ulcer of other part of left foot with necrosis of bone; E11.622 Type 2 diabetes mellitus with other skin ulcer; L97.322 Non-pressure chronic ulcer of left 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; M86.172 Other acute osteomyelitis, left ankle and foot; E11.610 Type 2 diabetes mellitus with diabetic neuropathic arthropathy; E11.42 Type 2 diabetes mellitus with diabetic polyneuropathy; E11.69 Type 2 diabetes mellitus with other specified complication; L03.116 Cellulitis of left lower limb; B96.5 Pseudomonas (aeruginosa) (mallei) (pseudomallei) as the cause of diseases classified elsewhere; I10 Essential (primary) hypertension; Z79.84 Long term (current) use of oral hypoglycemic drugs; Z79.899 Other long term (current) drug therapy
CPT/HCPCS: 11042; 11043; 29581; 73610; 73630; 82962; 87070; 87075; 87205; 93005; 93923; 99183; 99213; G0277; G0463

== ENCOUNTER 2023-11-03 13:00 | Outpatient (RCR) | payer BC, SELFPAY ==
[2023-10-07 00:29] VITALS: BP 130/84; PULSE 88; RESP 18; TEMP 36; BMI 33.9
[2023-10-07 08:28] VITALS: BP 132/78; BP 132/82; PULSE 82; PULSE 89; RESP 16; TEMP 35.6; TEMP 36.3
--- NOTE | 2023-10-07 10:25 | RAD_ITS ---
INDICATION: Non-pressure chronic ulcer of left 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 EXAMINATION/TECHNIQUE: X-RAY - LEFT XR Ankle Min 3 Views 3 VIEWS COMPARISON: 10/07/2023. FINDINGS: SOFT TISSUES: Diffuse soft tissue swelling is noted. No radiopaque foreign body. BONES/JOINTS: Postoperative changes of intramedullary vance fixation and arthrodesis of the tibiotalar and subtalar joints. Threaded screw fixation is present. Extensive sclerosis of bony elements of the hindfoot and midfoot consistent with a Charcot neuropathic joint. No changes in alignment. Previous resection of the distal fibula. Mild periosteal thickening along the posterior aspect of tibia is unchanged. RAD/Ankle min 3 Views IMPRESSION: 1. Remote postoperative changes including intramedullary vance fixation and arthrodesis of the tibiotalar and subtalar joints without change in alignment. 2. Extensive neuropathic changes involving the hindfoot and midfoot without change. 3. Previous resection/osteotomy of the distal fibula without change. 4. No acute fractures. Electronically Signed: Mayito Ramon MD at 18:29 EST ,
--- NOTE | 2023-10-07 10:25 | RAD_ITS ---
INDICATION: Non-pressure chronic ulcer of left 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 EXAMINATION/TECHNIQUE: X-RAY - LEFT XR Foot Min 3 Views 3 VIEWS COMPARISON: 09/08/2023 FINDINGS: SOFT TISSUES: Diffuse soft tissue swelling is noted. No radiopaque foreign body. BONES/JOINTS: Postoperative changes of intramedullary vance fixation and arthrodesis of the tibiotalar and subtalar joints. Threaded screw fixation is present. Extensive sclerosis of bony elements of the hindfoot and midfoot consistent with a Charcot neuropathic joint. No changes in alignment. Healed metatarsal fractures are present. Bony elements of the digits appear normal. RAD/Foot min 3 Views IMPRESSION: 1. Remote postoperative changes including intramedullary vance fixation and arthrodesis of the tibiotalar and subtalar joints without change in alignment. 2. Extensive neuropathic changes involving the hindfoot and midfoot without change. 3. Remote healed fracture of metatarsals 2-5. No change in appearance. 4. No acute fractures. Electronically Signed: Mayito Ramon MD at 18:26 EST ,
[2023-10-07 10:39] LABS: Bedside Glucose 177 mg/dL (74-106)
[2023-10-07 10:39] LABS: Bedside Glucose 114 mg/dL (74-106)
--- NOTE | 2023-10-07 12:25 | HBO.PN.PCM_ITS ---
History of Present Illness Date of Service: 10/07/23 Chief Complaint: Diabetic left foot infection with gas gangrene and osteom yelitis; Li grade 3 diabetic foot infection. History of Wound: 43-year-old male status post left Charcot reconstruction. Denies constitutional symptoms. Notes increased drainage to the medial and lateral left ankle. Per nursing dressing change. No other complaints today. Subjective Subjective The patient underwent his 15th hyperbaric oxygen therapy session today. The patient is scheduled for a total of 30 such sessions. Tolerance of hyperbaric oxygen therapy: Hyperbaric oxygen therapy was provided as per the facility's protocol. Hyperbaric oxygen therapy was undertaken at 2 krzysztof and 100% oxygen for 90 minutes without air breaks. The patient tolerated hyperbaric oxygen therapy well, without complaints or complications. Upon emergence from the hyperbaric chamber, the patient's vital signs remained stable. Blood sugar levels were monitored both before and after hyperbaric oxygen therapy, and found to be satisfactory. Objective Data Objective Data Vital Signs: Vital Signs Temp Pulse Resp BP O2 Flow Rate 96.0 F L 89 16 132/82 H 99 10/07/23 08:28 10/07/23 08:28 10/07/23 08:28 10/07/23 08:28 10/07/23 00:29 Oxygen Flow Rate (L/min) 99 Weight: 113.398 kg Body Mass Index (BMI) 33.9 Lab / Micro Data Labs: Laboratory Results - last 24 hr 10/07/23 07:47: POC Glucose 177 H 10/07/23 09:54: POC Glucose 114 H Exam Physical Exam Const alert, oriented x3 and no apparent distress Psych mental status grossly normal, thought process normal, cooperative, affect normal and speech normal Nursing Assessment and Debridement Post-Debridement Measurements and Additional Note: Post-Debridement Measurements/Treatment WC - Nurse 3 - General Ulcer D/C NN Start: 10/07/23 08:27 Freq: Status: Active Protocol: Activity Type Activity Date Activity User E-sign Co-sign Detail Recorded Client Recorded Date Recorded By Document 10/07/23 10:04 BRIAN [id number] 10/07/23 10:07 BRIAN 10/07/23 10:04 Pain Scale: 0-10 Numeric Is Patient Pain Free? Yes WC - Visit Discharge Discharge Condition Stable Ambulatory Status Wheelchair Transportation Private Auto Accompanied by PARENTS Notes: Patient tolerated HBO treatment without difficulty. Heading to the hospital to get his xray ordered by Dr Perkins. Assessment/Plan Assessment/Plan (1) Osteomyelitis of ankle or foot, left, acute: CODE(S): M86.172 - Other acute osteomyelitis, left ankle and foot (2) Osteomyelitis of ankle, left, acute: CODE(S): M86.172 - Other acute osteomyelitis, left ankle and foot (3) Abscess of bursa, left ankle and foot: CODE(S): M71.072 - Abscess of bursa, left ankle and foot (4) Cellulitis of left lower limb: CODE(S): L03.116 - Cellulitis of left lower limb (5) Charcot foot due to diabetes mellitus: CODE(S): E11.610 - 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 arthropathy (6) Non-pressure chronic ulcer of left 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: CODE(S): L97.322 - Non-pressure chronic ulcer of left 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 (7) Other acute postprocedural pain: CODE(S): G89.18 - Other acute postprocedural pain (8) Type 2 diabetes mellitus with diabetic polyneuropathy: CODE(S): E11.42 - Type 2 diabetes mellitus with diabetic polyneuropathy QUALIFIERS: Diabetes mellitus terminal computer operator insulin use: without terminal computer operator use Qualified Code(s): E11.42 - Type 2 diabetes mellitus with diabetic polyneuropathy (9) 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 muscle: CODE(S): L97.523 - 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 muscle (10) Gas gangrene of foot: CODE(S): A48.0 - Gas gangrene (11) Diabetic infection of left foot: CODE(S): E11.628 - Type 2 diabetes mellitus with other skin complications; L08.9 - Local infection of the skin and subcutaneous tissue, unspecified (12) 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 bone: CODE(S): L97.524 - 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 bone (13) Cellulitis: CODE(S): L03.90 - Cellulitis, unspecified QUALIFIERS: Site of cellulitis: extremity Site of cellulitis of extremity: lower extremity Laterality: left Qualified Code(s): L03.116 - Cellulitis of left lower limb (14) Hypertension: CODE(S): I10 - Essential (primary) hypertension QUALIFIERS: Hypertension type: primary hypertension Qualified Code(s): I10 - Essential (primary) hypertension PLAN: Plan The patient appears to be tolerating hyperbaric oxygen therapy well, which will be continued as per their medical treatment plan.
[2023-10-10 12:54] LABS: Bedside Glucose 196 mg/dL (74-106)
--- NOTE | 2023-10-10 13:21 | PCM.HBO.PN ---
History of Present Illness Date of Service: 10/10/23 Chief Complaint: Diabetic left foot infection with gas gangrene and osteomyelitis; Li grade 3 diabetic foot infection. History of Wound: 43-year-old male status post left Charcot reconstruction. Denies constitutional symptoms. Notes increased drainage to the medial and lateral left ankle. Per nursing dressing change. No other complaints today. Subjective Subjective The patient underwent his 16th hyperbaric oxygen therapy session today. The patient is scheduled for a total of 30 such sessions. Tolerance of hyperbaric oxygen therapy: Hyperbaric oxygen therapy was provided as per the facility's protocol. Hyperbaric oxygen therapy was undertaken at 2 krzysztof and 100% oxygen for 90 minutes without air breaks. The patient tolerated hyperbaric oxygen therapy well, without complaints or complications. Upon emergence from the hyperbaric chamber, the patient's vital signs remained stable. Blood sugar levels were monitored both before and after hyperbaric oxygen therapy, and found to be satisfactory. Objective Data Objective Data Vital Signs: Vital Signs Temp Pulse Resp BP O2 Flow Rate 96.0 F L 89 16 132/82 H 99 10/07/23 08:28 10/07/23 08:28 10/07/23 08:28 10/07/23 08:28 10/07/23 00:29 Oxygen Flow Rate (L/min) 99 Weight: 250 lb Body Mass Index (BMI) 33.9 Lab / Micro Data Labs: Laboratory Results - last 24 hr 10/10/23 12:37: POC Glucose 196 H Exam Physical Exam Const alert, oriented x3 and no apparent distress HEENT normocephalic Tympanic Membrane: TM's normal bilaterally Resp normal respiratory effort Effort and Inspection: able to speak in complete sentences Auscultation: clear to auscultation bilaterally Cardio regular rate and regular rhythm Psych mental status grossly normal, thought process normal, cooperative, affect normal and speech normal Assessment/Plan Assessment/Plan (1) Osteomyelitis of ankle or foot, left, acute: CODE(S): M86.172 - Other acute osteomyelitis, left ankle and foot (2) Osteomyelitis of ankle, left, acute: CODE(S): M86.172 - Other acute osteomyelitis, left ankle and foot (3) Abscess of bursa, left ankle and foot: CODE(S): M71.072 - Abscess of bursa, left ankle and foot (4) Cellulitis of left lower limb: CODE(S): L03.116 - Cellulitis of left lower limb (5) Charcot foot due to diabetes mellitus: CODE(S): E11.610 - 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 arthropathy (6) Non-pressure chronic ulcer of left 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: CODE(S): L97.322 - Non-pressure chronic ulcer of left 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 (7) Other acute postprocedural pain: CODE(S): G89.18 - Other acute postprocedural pain (8) Type 2 diabetes mellitus with diabetic polyneuropathy: CODE(S): E11.42 - Type 2 diabetes mellitus with diabetic polyneuropathy QUALIFIERS: Diabetes mellitus intermediate designer insulin use: without intermediate designer use Qualified Code(s): E11.42 - Type 2 diabetes mellitus with diabetic polyneuropathy (9) 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 muscle: CODE(S): L97.523 - 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 muscle (10) Gas gangrene of foot: CODE(S): A48.0 - Gas gangrene (11) Diabetic infection of left foot: CODE(S): E11.628 - Type 2 diabetes mellitus with other skin complications; L08.9 - Local infection of the skin and subcutaneous tissue, unspecified (12) 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 bone: CODE(S): L97.524 - 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 bone (13) Cellulitis: CODE(S): L03.90 - Cellulitis, unspecified QUALIFIERS: Site of cellulitis: extremity Site of cellulitis of extremity: lower extremity Laterality: left Qualified Code(s): L03.116 - Cellulitis of left lower limb (14) Hypertension: CODE(S): I10 - Essential (primary) hypertension QUALIFIERS: Hypertension type: primary hypertension Qualified Code(s): I10 - Essential (primary) hypertension PLAN: Plan The patient appears to be tolerating hyperbaric oxygen therapy well, which will be continued as per their medical treatment plan.
[2023-10-10 14:29] VITALS: BP 128/75; BP 129/76; PULSE 79; PULSE 91; RESP 18
[2023-10-10 15:02] LABS: Bedside Glucose 189 mg/dL (74-106)
--- NOTE | 2023-10-11 11:41 | PCM.WC.PN ---
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 History of Wound: 43-year-old male status post left Charcot reconstruction. Denies constitutional symptoms. Notes increased drainage to the medial and lateral left ankle. Per nursing dressing change. No other complaints today. Objective Data Objective Data Vital Signs: Vital Signs Temp Pulse Resp BP O2 Flow Rate 96.0 F L 79 18 128/75 H 99 10/07/23 08:28 10/10/23 14:29 10/10/23 14:29 10/10/23 14:29 10/07/23 00:29 Oxygen Flow Rate (L/min) 99 Weight: 113.398 kg Body Mass Index (BMI) 33.9 Lab / Micro Data Labs: Laboratory Results - last 24 hr 10/10/23 12:37: POC Glucose 196 H 10/10/23 14:41: POC Glucose 189 H Physical Exam Narrative Neurovascular status unchanged Full-thickness wounds to medial ankle, 3 cc purulence drained from the site today. Lateral ankle wound down to the level of bone noted with intact vessel loop closure allowing for partial wound closure, additional 3 cc purulence drained from the site. Pre and postdebridement measurements documented in notes nursing notes. This was debrided down to level of muscle today. No residual abscess noted. Resolved acute signs of infection. No signs of DVT. Const alert and oriented x3 Debridement Note Debridement Note Post-Debridement Measurements and Additional Note: Post-Debridement Measurements/Treatment WC - Nurse 3 - General Ulcer D/C NN Start: 10/07/23 08:27 Freq: Status: Active Protocol: Activity Type Activity Date Activity User E-sign Co-sign Detail Recorded Client Recorded Date Recorded By Document 10/07/23 10:04 BRIAN [id number] 10/07/23 10:07 BRIAN 10/07/23 10:04 Pain Scale: 0-10 Numeric Is Patient Pain Free? Yes WC - Visit Discharge Discharge Condition Stable Ambulatory Status Wheelchair Transportation Private Auto Accompanied by PARENTS Notes: Patient tolerated HBO treatment without difficulty. Heading to the hospital to get his xray ordered by Dr Perkins. Assessment/Plan Assessment/Plan (1) Osteomyelitis of ankle, left, acute: CODE(S): M86.172 - Other acute osteomyelitis, left ankle and foot PLAN: Exam performed Patient on IV meropenem via PICC line per infectious disease for enterococcal and pseudomonal infection left lower extremity with bone involvement will transition to p.o. antibiotics per infectious disease. Cultures from new onset abscess last week negative for any bacterial growth. wound significantly improved Today left lower extremity wound to lateral ankle was debrided down to and including level of muscle excisionally using a 5 mm dermal curette without incident. No anesthesia due to neuropathy. Hemostasis obtained with light compression. Patient tolerated procedure well. Pre and postdebridement measurements documented nursing notes. Change to daily Dakin's packing with DSD and Tubigrip. Patient follows up weekly Patient nonweightbearing left lower extremity Patient receiving HBO therapy Blood sugar well-controlled Follow-up 1 week (2) Charcot foot due to diabetes mellitus: CODE(S): E11.610 - 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 arthropathy (3) Abscess of bursa, left ankle and foot: CODE(S): M71.072 - Abscess of bursa, left ankle and foot (4) Cellulitis of left lower limb: CODE(S): L03.116 - Cellulitis of left lower limb (5) Non-pressure chronic ulcer of left 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: CODE(S): L97.322 - Non-pressure chronic ulcer of left 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 (6) Type 2 diabetes mellitus with diabetic polyneuropathy: CODE(S): E11.42 - Type 2 diabetes mellitus with diabetic polyneuropathy QUALIFIERS: Diabetes mellitus adjunct faculty for medical terminology insulin use: without adjunct faculty for medical terminology use Qualified Code(s): E11.42 - Type 2 diabetes mellitus with diabetic polyneuropathy
[2023-10-11 12:05] VITALS: BP 121/73; PULSE 94; RESP 18; TEMP 36.6; BMI 33.9
--- NOTE | 2023-10-12 13:21 | WC ---
Pt unable to do treatment today d/t blood sugar being to low. Checked at 12:30 BS 126. given OJ peanut butter, rechecked at 12:45 BS 120, June Senior CNP covering treatment today, advised to give pt an Ensure and wait another 15 min. rechecked again at 13:08, BS at 118. Treatment canceled for today per Ailyn Senior CNP, pt in agreement. Pt voices no concerns or complaints today.
[2023-10-12 13:31] LABS: Bedside Glucose 118 mg/dL (74-106)
--- NOTE | 2023-10-12 14:21 | PCM.HBO.PN ---
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 History of Wound: 43-year-old male status post left Charcot reconstruction. Denies constitutional symptoms. Notes increased drainage to the medial and lateral left ankle. Per nursing dressing change. No other complaints today. Progress of Wound: Patient came in for HBOT. His initial blood sugar was 126. He states that he has a peanut butter and jelly sandwich for lunch before coming in today. He was given a snack with juice. After waiting 15 minutes, a recheck on his BGT was 120. He was given an ensure with protein and after waiting 15 minutes his BGT was 118. The decision was made to cancel his treatment today. He had no complaints today. On exam, his bilateral TM had fluid visible with bubbles. No erythema and he was not complaining of any pain or hearing issues. He is scheduled to come in tomorrow for HBOT. Objective Data Objective Data Vital Signs: Vital Signs Temp Pulse Resp BP O2 Flow Rate 98 F 94 18 121/73 H 99 10/11/23 12:05 10/11/23 12:05 10/11/23 12:05 10/11/23 12:05 10/07/23 00:29 Oxygen Flow Rate (L/min) 99 Weight: 250 lb Body Mass Index (BMI) 33.9 Lab / Micro Data Labs: Laboratory Results - last 24 hr 10/12/23 13:07: POC Glucose 118 H Exam Nursing Assessment and Debridement Post-Debridement Measurements and Additional Note: Post-Debridement Measurements/Treatment - Nurse 1 - General Ulcer Assessment Start: 10/07/23 08:27 Freq: Status: Active Protocol: WC.LOWEXT Activity Type Activity Date Activity User E-sign Co-sign Detail Recorded Client Recorded Date Recorded By Document 10/11/23 12:05 MEMO [id number] 10/11/23 12:09 RB 10/11/23 12:05 - Today's Visit Information Type of service Follow-up Visit (Physician/[employer] ) Arrival Mode Wheelchair Transfer Assistance Manual Patient Identification Verified (Name & Yes ) Patient Requires Transmission-Based No Precautions Height and Weight Body Mass Index (BMI) 33.9 BMI Classification Obese Vital Signs Temperature (97.8 F-99.1 F) 98 F Temperature Source Temporal Pulse Rate (60-100) 94 Pulse Location Monitor Respiratory Rate (12-18) 18 Respiratory rate source Observation Blood Pressure (90/60-120/80) 121/73 H Blood Pressure Mean (mm Hg) 89 Source Monitor Position Sitting Blood Pressure Location Left Arm History Since Last Visit- (Skip if this is Patient's initial visit) Have you changed medications since your No last visit? Any new allergies or adverse reactions No Had a fall/change in ADL's that may No increase risk of falls Signs or symptoms of abuse and/or No neglect since last visit Have you been in the hospital since your No last visit? Has dressing in place as prescribed Yes Has compression in place as prescribed Yes Has offloadiing in place as prescribed Yes Experienced any changes in pain level or No management Pain Scale: 0-10 Numeric Is Patient Pain Free? Yes WC - Nurse 1 - General Ulcer Measurement Start: 10/07/23 08:27 Freq: Status: Active Protocol: Activity Type Activity Date Activity User E-sign Co-sign Detail Recorded Client Recorded Date Recorded By Document 10/11/23 12:05 MEMO [id number] 10/11/23 12:09 MEMO 10/11/23 12:05 Wound Center Nurse 1 7. L lateral ankle -Combined with other wound No -Current Size (cm) - Length 1 -Current Size (cm) - Width 0.5 -Current Size (cm) - Depth 1 -Total Square Cm 0.5 -Tunneling No -Undermining/Tunneling No -Circular Undermining No -Exudate Amt Large -Exudate Type Serosanguineous -Wound Margin Thickened & Rolled Under -Granulation Amt Medium (34-66%) -Granulation Quality [place] -Slough/Fibrin Yes -Necrosis Amt Medium (34-66%) -Necrotic Tissue Type Adherent Slough -Structure Exposed N/A -Texture ([place]-wound Skin Appearance) Assessed, Scarring -Moisture ([place]-wound Skin Appearance) Assessed -Color ([place]-wound Skin Appearance) Assessed -Temperature ([place]-wound Skin No Abnormality Appearance) (Pt Warm) -Tenderness on Palpation ([place]-wound No Skin Appearance) -Ulcer Cleansing Wound Cleanser -Foul Odor after Cleansing No -Anesthetic Used 4% Lidocaine Solution 6. L medial ankle -Combined with other wound No -Current Size (cm) - Length 1 -Current Size (cm) - Width 0.5 -Current Size (cm) - Depth 1 -Total Square Cm 0.5 -Tunneling No -Undermining/Tunneling No -Circular Undermining No -Exudate Amt Large -Exudate Type Serosanguineous -Wound Margin Thickened & Rolled Under -Granulation Amt Medium (34-66%) -Granulation Quality [place] -Slough/Fibrin Yes -Necrosis Amt Medium (34-66%) -Necrotic Tissue Type Adherent Slough -Structure Exposed N/A -Texture ([place]-wound Skin Appearance) Assessed, Scarring -Moisture ([place]-wound Skin Appearance) Assessed -Color ([place]-wound Skin Appearance) Assessed -Temperature ([place]-wound Skin No Abnormality Appearance) (Pt Warm) -Tenderness on Palpation ([place]-wound No Skin Appearance) -Ulcer Cleansing Wound Cleanser -Foul Odor after Cleansing No -Anesthetic Used 5% Lidocaine Gel WC - Nurse 2 - General Ulcer CM Notes Start: 10/07/23 08:27 Freq: Status: Active Protocol: Activity Type Activity Date Activity User E-sign Co-sign Detail Recorded Client Recorded Date Recorded By Document 10/11/23 11:34 Laptop 10/11/23 11:52 10/11/23 11:34 Wound Center Nurse 2 7. L lateral ankle -Time 11:50 -Correct Patient Yes -Correct Side, Site, Position Yes -Correct Procedure Yes -Procedure Performed Yes -Type of Procedure Debridement -Clinical Debridement Muscle / Fascia -Tissue Removed Muscle -Post Debridement (cm) - Length 6.0 -Post Debridement (cm) - Width 1.0 -Post Debridement (cm) - Depth 1.2 -Total Square (Post) (cm) 6.00 -Area of Debridement (cm) - Length 6.0 -Area of Debridement (cm) - Width 1.0 -Total Square (Area) (cm) 6.00 -Tunneling No -Undermining/Tunneling No -Circular Undermining No -Wound/Ulcer Outcome Not Healed -Ulcer Cleansing Rinsed/ Irrigated with Saline -Foul Odor after Cleansing No -Bioengineered Tissue No -Bleeding Controlled with Pressure -Treatment Response Procedure Tolerated Well -Offloading No -Debridement - Muscle / Fascia, 1st No 20sq cm 6. L medial ankle -Time 11:51 -Correct Patient Yes -Correct Side, Site, Position Yes -Correct Procedure Yes -Procedure Performed Yes -Type of Procedure Debridement -Clinical Debridement Muscle / Fascia -Tissue Removed Muscle -Post Debridement (cm) - Length 1.1 -Post Debridement (cm) - Width 0.4 -Post Debridement (cm) - Depth 1 -Total Square (Post) (cm) 0.44 -Area of Debridement (cm) - Length 1.1 -Area of Debridement (cm) - Width 0.4 -Total Square (Area) (cm) 0.44 -Tunneling No -Undermining/Tunneling Yes -Undermining/Tunneling Starts (O'clock 2 ) -Undermining/Tunneling Ends (O'clock) 5 -Maximum Distance (cm) 2.0 -Circular Undermining No -Wound/Ulcer Outcome Not Healed -Ulcer Cleansing Rinsed/ Irrigated with Saline -Foul Odor after Cleansing No -Bioengineered Tissue No -Bleeding Controlled with Pressure -Treatment Response Procedure Tolerated Well -Offloading No -Debridement - Muscle / Fascia, 1st Yes 20sq cm Pain Scale: 0-10 Numeric Is Patient Pain Free? Yes - Nurse 3 - General Ulcer D/C NN Start: 10/07/23 08:27 Freq: Status: Active Protocol: Activity Type Activity Date Activity User E-sign Co-sign Detail Recorded Client Recorded Date Recorded By Document 10/11/23 12:05 RB [id number] 10/11/23 12:09 RB 10/11/23 12:05 Wound Care Center Nurse 3 7. L lateral ankle -Other Dressing DAKINS MOISTENED GAUZE -Primary Dressing Covered/Secured with Dry Gauze & Roll Gauze, Secured with Tape 6. L medial ankle -Other Dressing [id number] MOISTENED GAUZE -Primary Dressing Covered/Secured with Dry Gauze & Roll Gauze, Secured with Tape Left -Tubular Bandage Double Layer -Size of Tubigrip Used Size E -Size E ($) 2 Treatment Response Procedure Tolerated Well Vital Signs Temperature (97.8 F-99.1 F) 98 F Temperature Source Temporal Pulse Rate (60-100) 94 Pulse Location Monitor Respiratory Rate (12-18) 18 Respiratory rate source Observation Blood Pressure (90/60-120/80) 121/73 H Blood Pressure Mean (mm Hg) 89 Source Monitor Position Sitting Blood Pressure Location Left Arm Pain Scale: 0-10 Numeric Is Patient Pain Free? Yes - Visit Discharge Discharge Condition Stable Ambulatory Status Wheelchair Transportation Private Auto Medication Reconcilliation completed & No provided to patient/care provider Clinical Summary of Care Provided Yes Charges/Coding Addendum Addendum: No charge
[2023-10-12 16:48] LABS: Bedside Glucose 126 mg/dL (74-106)
[2023-10-12 16:49] LABS: Bedside Glucose 120 mg/dL (74-106)
[2023-10-13 13:00] LABS: Bedside Glucose 199 mg/dL (74-106)
[2023-10-13 14:16] VITALS: BP 110/75; BP 121/69; PULSE 85; PULSE 88; RESP 16; RESP 18; TEMP 36; TEMP 36.5
[2023-10-13 15:18] LABS: Bedside Glucose 197 mg/dL (74-106)
--- NOTE | 2023-10-13 16:13 | PCM.HBO.PN ---
History of Present Illness Date of Service: 10/13/23 Chief Complaint: Diabetic left foot infection with gas gangrene and osteomyelitis; Li grade 3 diabetic foot infection. History of Wound: 43-year-old male status post left Charcot reconstruction. Denies constitutional symptoms. Notes increased drainage to the medial and lateral left ankle. Per nursing dressing change. No other complaints today. Progress of Wound: The patient underwent his 17th hyperbaric oxygen therapy session today. The patient is scheduled for a total of 30 such sessions. Subjective Subjective The patient underwent his 17th hyperbaric oxygen therapy session today. The patient is scheduled for a total of 30 such sessions. Tolerance of hyperbaric oxygen therapy: Hyperbaric oxygen therapy was provided as per the facility's protocol. Hyperbaric oxygen therapy was undertaken at 2 krzysztof and 100% oxygen for 90 minutes without air breaks. The patient tolerated hyperbaric oxygen therapy well, without complaints or complications. Upon emergence from the hyperbaric chamber, the patient's vital signs remained stable. Blood sugar levels were monitored both before and after hyperbaric oxygen therapy, and found to be satisfactory. Objective Data Objective Data Vital Signs: Vital Signs Temp Pulse Resp BP O2 Flow Rate 96.8 F L 85 18 110/75 99 10/13/23 14:16 10/13/23 14:16 10/13/23 14:16 10/13/23 14:16 10/07/23 00:29 Oxygen Flow Rate (L/min) 99 Weight: 250 lb Body Mass Index (BMI) 33.9 Lab / Micro Data Attestation: I reviewed the patient's lab results. Labs: Laboratory Results - last 24 hr 10/12/23 12:33: POC Glucose 126 H 10/12/23 12:48: POC Glucose 120 H 10/13/23 12:34: POC Glucose 199 H 10/13/23 14:59: POC Glucose 197 H Exam Physical Exam Const alert, oriented x3 and no apparent distress HEENT normocephalic HEENT Narrative: Bilateral TM with clear fluid and few bubbles present. No erythema. They are improved compared to yesterday. Resp normal respiratory effort Effort and Inspection: able to speak in complete sentences Auscultation: clear to auscultation bilaterally Cardio regular rate and regular rhythm Psych mental status grossly normal, thought process normal, cooperative, affect normal and speech normal Nursing Assessment and Debridement Post-Debridement Measurements and Additional Note: Post-Debridement Measurements/Treatment MARY - Nurse 1 - General Ulcer Assessment Start: 10/07/23 08:27 Freq: Status: Active Protocol: GWEN Activity Type Activity Date Activity User E-sign Co-sign Detail Recorded Client Recorded Date Recorded By Document 10/11/23 12:05 MEMO [id number] 10/11/23 12:09 MEMO 10/11/23 12:05 WC - Today's Visit Information Type of service Follow-up 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 ) Arrival Mode Wheelchair Transfer Assistance Manual Patient Identification Verified (Name & Yes ) Patient Requires Transmission-Based No Precautions Height and Weight Body Mass Index (BMI) 33.9 BMI Classification Obese Vital Signs Temperature (97.8 F-99.1 F) 98 F Temperature Source Temporal Pulse Rate (60-100) 94 Pulse Location Monitor Respiratory Rate (12-18) 18 Respiratory rate source Observation Blood Pressure (90/60-120/80) 121/73 H Blood Pressure Mean (mm Hg) 89 Source Monitor Position Sitting Blood Pressure Location Left Arm History Since Last Visit- (Skip if this is Patient's initial visit) Have you changed medications since your No last visit? Any new allergies or adverse reactions No Had a fall/change in ADL's that may No increase risk of falls Signs or symptoms of abuse and/or No neglect since last visit Have you been in the hospital since your No last visit? Has dressing in place as prescribed Yes Has compression in place as prescribed Yes Has offloadiing in place as prescribed Yes Experienced any changes in pain level or No management Pain Scale: 0-10 Numeric Is Patient Pain Free? Yes MARY - Nurse 1 - General Ulcer Measurement Start: 10/07/23 08:27 Freq: Status: Active Protocol: Activity Type Activity Date Activity User E-sign Co-sign Detail Recorded Client Recorded Date Recorded By Document 10/11/23 12:05 MEMO [id number] 10/11/23 12:09 MEMO 10/11/23 12:05 Wound Center Nurse 1 7. L lateral ankle -Combined with other wound No -Current Size (cm) - Length 1 -Current Size (cm) - Width 0.5 -Current Size (cm) - Depth 1 -Total Square Cm 0.5 -Tunneling No -Undermining/Tunneling No -Circular Undermining No -Exudate Amt Large -Exudate Type Serosanguineous -Wound Margin Thickened & Rolled Under -Granulation Amt Medium (34-66%) -Granulation Quality [place] -Slough/Fibrin Yes -Necrosis Amt Medium (34-66%) -Necrotic Tissue Type Adherent Slough -Structure Exposed N/A -Texture ([place]-wound Skin Appearance) Assessed, Scarring -Moisture ([place]-wound Skin Appearance) Assessed -Color ([place]-wound Skin Appearance) Assessed -Temperature ([place]-wound Skin No Abnormality Appearance) (Pt Warm) -Tenderness on Palpation ([place]-wound No Skin Appearance) -Ulcer Cleansing Wound Cleanser -Foul Odor after Cleansing No -Anesthetic Used 4% Lidocaine Solution 6. L medial ankle -Combined with other wound No -Current Size (cm) - Length 1 -Current Size (cm) - Width 0.5 -Current Size (cm) - Depth 1 -Total Square Cm 0.5 -Tunneling No -Undermining/Tunneling No -Circular Undermining No -Exudate Amt Large -Exudate Type Serosanguineous -Wound Margin Thickened & Rolled Under -Granulation Amt Medium (34-66%) -Granulation Quality [place] -Slough/Fibrin Yes -Necrosis Amt Medium (34-66%) -Necrotic Tissue Type Adherent Slough -Structure Exposed N/A -Texture ([place]-wound Skin Appearance) Assessed, Scarring -Moisture ([place]-wound Skin Appearance) Assessed -Color ([place]-wound Skin Appearance) Assessed -Temperature ([place]-wound Skin No Abnormality Appearance) (Pt Warm) -Tenderness on Palpation ([place]-wound No Skin Appearance) -Ulcer Cleansing Wound Cleanser -Foul Odor after Cleansing No -Anesthetic Used 5% Lidocaine Gel WC - Nurse 2 - General Ulcer CM Notes Start: 10/07/23 08:27 Freq: Status: Active Protocol: Activity Type Activity Date Activity User E-sign Co-sign Detail Recorded Client Recorded Date Recorded By Document 10/11/23 11:34 Laptop 10/11/23 11:52 10/11/23 11:34 Wound Center Nurse 2 7. L lateral ankle -Time 11:50 -Correct Patient Yes -Correct Side, Site, Position Yes -Correct Procedure Yes -Procedure Performed Yes -Type of Procedure Debridement -Clinical Debridement Muscle / Fascia -Tissue Removed Muscle -Post Debridement (cm) - Length 6.0 -Post Debridement (cm) - Width 1.0 -Post Debridement (cm) - Depth 1.2 -Total Square (Post) (cm) 6.00 -Area of Debridement (cm) - Length 6.0 -Area of Debridement (cm) - Width 1.0 -Total Square (Area) (cm) 6.00 -Tunneling No -Undermining/Tunneling No -Circular Undermining No -Wound/Ulcer Outcome Not Healed -Ulcer Cleansing Rinsed/ Irrigated with Saline -Foul Odor after Cleansing No -Bioengineered Tissue No -Bleeding Controlled with Pressure -Treatment Response Procedure Tolerated Well -Offloading No -Debridement - Muscle / Fascia, 1st No 20sq cm 6. L medial ankle -Time 11:51 -Correct Patient Yes -Correct Side, Site, Position Yes -Correct Procedure Yes -Procedure Performed Yes -Type of Procedure Debridement -Clinical Debridement Muscle / Fascia -Tissue Removed Muscle -Post Debridement (cm) - Length 1.1 -Post Debridement (cm) - Width 0.4 -Post Debridement (cm) - Depth 1 -Total Square (Post) (cm) 0.44 -Area of Debridement (cm) - Length 1.1 -Area of Debridement (cm) - Width 0.4 -Total Square (Area) (cm) 0.44 -Tunneling No -Undermining/Tunneling Yes -Undermining/Tunneling Starts (O'clock 2 ) -Undermining/Tunneling Ends (O'clock) 5 -Maximum Distance (cm) 2.0 -Circular Undermining No -Wound/Ulcer Outcome Not Healed -Ulcer Cleansing Rinsed/ Irrigated with Saline -Foul Odor after Cleansing No -Bioengineered Tissue No -Bleeding Controlled with Pressure -Treatment Response Procedure Tolerated Well -Offloading No -Debridement - Muscle / Fascia, 1st Yes 20sq cm Pain Scale: 0-10 Numeric Is Patient Pain Free? Yes WC - Nurse 3 - General Ulcer D/C NN Start: 10/07/23 08:27 Freq: Status: Active Protocol: Activity Type Activity Date Activity User E-sign Co-sign Detail Recorded Client Recorded Date Recorded By Document 10/11/23 12:05 RB [id number] 10/11/23 12:09 RB 10/11/23 12:05 Wound Care Center Nurse 3 7. L lateral ankle -Other Dressing DAKINS MOISTENED GAUZE -Primary Dressing Covered/Secured with Dry Gauze & Roll Gauze, Secured with Tape 6. L medial ankle -Other Dressing [id number] MOISTENED GAUZE -Primary Dressing Covered/Secured with Dry Gauze & Roll Gauze, Secured with Tape Left -Tubular Bandage Double Layer -Size of Tubigrip Used Size E -Size E ($) 2 Treatment Response Procedure Tolerated Well Vital Signs Temperature (97.8 F-99.1 F) 98 F Temperature Source Temporal Pulse Rate (60-100) 94 Pulse Location Monitor Respiratory Rate (12-18) 18 Respiratory rate source Observation Blood Pressure (90/60-120/80) 121/73 H Blood Pressure Mean (mm Hg) 89 Source Monitor Position Sitting Blood Pressure Location Left Arm Pain Scale: 0-10 Numeric Is Patient Pain Free? Yes WC - Visit Discharge Discharge Condition Stable Ambulatory Status Wheelchair Transportation Private Auto Medication Reconcilliation completed & No provided to patient/care provider Clinical Summary of Care Provided Yes Charges/Coding Wound Center CF Procedures HBO Supervision: [id number] Hyperbaric Oxygen; supervision Assessment/Plan Assessment/Plan (1) Osteomyelitis of ankle or foot, left, acute: CODE(S): M86.172 - Other acute osteomyelitis, left ankle and foot (2) Osteomyelitis of ankle, left, acute: CODE(S): M86.172 - Other acute osteomyelitis, left ankle and foot (3) Abscess of bursa, left ankle and foot: CODE(S): M71.072 - Abscess of bursa, left ankle and foot (4) Cellulitis of left lower limb: CODE(S): L03.116 - Cellulitis of left lower limb (5) Charcot foot due to diabetes mellitus: CODE(S): E11.610 - 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 arthropathy (6) Non-pressure chronic ulcer of left 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: CODE(S): L97.322 - Non-pressure chronic ulcer of left 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 (7) Other acute postprocedural pain: CODE(S): G89.18 - Other acute postprocedural pain (8) Type 2 diabetes mellitus with diabetic polyneuropathy: CODE(S): E11.42 - Type 2 diabetes mellitus with diabetic polyneuropathy QUALIFIERS: Diabetes mellitus intermediate accountant insulin use: without intermediate accountant use Qualified Code(s): E11.42 - Type 2 diabetes mellitus with diabetic polyneuropathy (9) 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 muscle: CODE(S): L97.523 - 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 muscle (10) Gas gangrene of foot: CODE(S): A48.0 - Gas gangrene (11) Diabetic infection of left foot: CODE(S): E11.628 - Type 2 diabetes mellitus with other skin complications; L08.9 - Local infection of the skin and subcutaneous tissue, unspecified (12) 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 bone: CODE(S): L97.524 - 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 bone (13) Cellulitis: CODE(S): L03.90 - Cellulitis, unspecified QUALIFIERS: Site of cellulitis: extremity Site of cellulitis of extremity: lower extremity Laterality: left Qualified Code(s): L03.116 - Cellulitis of left lower limb (14) Hypertension: CODE(S): I10 - Essential (primary) hypertension QUALIFIERS: Hypertension type: primary hypertension Qualified Code(s): I10 - Essential (primary) hypertension PLAN: Plan The patient appears to be tolerating hyperbaric oxygen therapy well, which will be continued as per their medical treatment plan.
--- NOTE | 2023-10-17 13:16 | HBO.PN.PCM_ITS ---
History of Present Illness Date of Service: 10/17/23 Chief Complaint: Diabetic left foot infection with gas gangrene and osteom yelitis; Li grade 3 diabetic foot infection. History of Wound: 43-year-old male status post left Charcot reconstruction. Denies constitutional symptoms. Notes increased drainage to the medial and lateral left ankle. Per nursing dressing change. No other complaints today. Subjective Subjective The patient underwent his 18th hyperbaric oxygen therapy session today. The patient is scheduled for a total of 30 such sessions. Tolerance of hyperbaric oxygen therapy: Hyperbaric oxygen therapy was provided as per the facility's protocol. Hyperbaric oxygen therapy was undertaken at 2 krzysztof and 100% oxygen for 90 minutes without air breaks. The patient tolerated hyperbaric oxygen therapy well, without complaints or complications. Upon emergence from the hyperbaric chamber, the patient's vital signs remained stable. Blood sugar levels were monitored both before and after hyperbaric oxygen therapy, and found to be satisfactory. Objective Data Objective Data Vital Signs: Vital Signs Temp Pulse Resp BP O2 Flow Rate 96.8 F L 85 18 110/75 99 10/13/23 14:16 10/13/23 14:16 10/13/23 14:16 10/13/23 14:16 10/07/23 00:29 Oxygen Flow Rate (L/min) 99 Weight: 250 lb Body Mass Index (BMI) 33.9 Exam Physical Exam Const alert, oriented x3 and no apparent distress HEENT normocephalic Tympanic Membrane: TM's normal bilaterally Resp normal respiratory effort Effort and Inspection: able to speak in complete sentences Auscultation: clear to auscultation bilaterally Cardio regular rate and regular rhythm Psych mental status grossly normal, thought process normal, cooperative, affect normal and speech normal Assessment/Plan Assessment/Plan (1) Osteomyelitis of ankle or foot, left, acute: CODE(S): M86.172 - Other acute osteomyelitis, left ankle and foot (2) Osteomyelitis of ankle, left, acute: CODE(S): M86.172 - Other acute osteomyelitis, left ankle and foot (3) Abscess of bursa, left ankle and foot: CODE(S): M71.072 - Abscess of bursa, left ankle and foot (4) Cellulitis of left lower limb: CODE(S): L03.116 - Cellulitis of left lower limb (5) Charcot foot due to diabetes mellitus: CODE(S): E11.610 - 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 arthropathy (6) Non-pressure chronic ulcer of left 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: CODE(S): L97.322 - Non-pressure chronic ulcer of left 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 (7) Other acute postprocedural pain: CODE(S): G89.18 - Other acute postprocedural pain (8) Type 2 diabetes mellitus with diabetic polyneuropathy: CODE(S): E11.42 - Type 2 diabetes mellitus with diabetic polyneuropathy QUALIFIERS: Diabetes mellitus retail delivery driver insulin use: without skilled nursing use Qualified Code(s): E11.42 - Type 2 diabetes mellitus with diabetic polyneuropathy (9) 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 muscle: CODE(S): L97.523 - 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 muscle (10) Gas gangrene of foot: CODE(S): A48.0 - Gas gangrene (11) Diabetic infection of left foot: CODE(S): E11.628 - Type 2 diabetes mellitus with other skin complications; L08.9 - Local infection of the skin and subcutaneous tissue, unspecified (12) 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 bone: CODE(S): L97.524 - 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 bone (13) Cellulitis: CODE(S): L03.90 - Cellulitis, unspecified QUALIFIERS: Site of cellulitis: extremity Site of cellulitis of extremity: lower extremity Laterality: left Qualified Code(s): L03.116 - Cellulitis of left lower limb (14) Hypertension: CODE(S): I10 - Essential (primary) hypertension QUALIFIERS: Hypertension type: primary hypertension Qualified Code(s): I10 - Essential (primary) hypertension PLAN: Plan The patient appears to be tolerating hyperbaric oxygen therapy well, which will be continued as per their medical treatment plan.
[2023-10-17 13:19] LABS: Bedside Glucose 137 mg/dL (74-106)
[2023-10-17 14:07] VITALS: BP 117/67; BP 119/73; PULSE 80; PULSE 83; RESP 16; RESP 18; TEMP 36.1
[2023-10-17 15:22] LABS: Bedside Glucose 124 mg/dL (74-106)
[2023-10-18 11:08] VITALS: BP 129/80; PULSE 85; RESP 18; TEMP 35.9; BMI 33.9
--- NOTE | 2023-10-18 11:43 | PCM.WC.PN ---
History of Present Illness Date of Service: 10/18/23 Chief Complaint: Diabetic left foot infection with gas gangrene and osteomyelitis; Li grade 3 diabetic foot infection. History of Wound: 43-year-old male status post left Charcot reconstruction. Denies constitutional symptoms. Wound is improving today. Per patient w Objective Data Objective Data Vital Signs: Vital Signs Temp Pulse Resp BP O2 Del Method O2 Flow Rate 96.6 F L 85 18 129/80 H Room Air 99 10/18/23 11:08 10/18/23 11:08 10/18/23 11:08 10/18/23 11:08 10/18/23 11:08 10/07/23 00:29 Oxygen Flow Rate (L/min) 99 Oxygen Delivery Method Room Air Weight: 113.398 kg Body Mass Index (BMI) 33.9 Lab / Micro Data Labs: Laboratory Results - last 24 hr 10/17/23 12:55: POC Glucose 137 H 10/17/23 15:05: POC Glucose 124 H Physical Exam Narrative Neurovascular status unchanged Full-thickness wounds to medial ankle, 3 cc purulence drained from the site today. Lateral ankle wound down to the level of bone noted with intact vessel loop closure allowing for partial wound closure, additional 3 cc purulence drained from the site. Pre and postdebridement measurements documented in notes nursing notes. This was debrided down to level of muscle today. No residual abscess noted. New onset redness swelling to plantar midfoot with possible fluctuance and increase in warmth. Concern for deep abscess. No signs of DVT. Const alert and oriented x3 Debridement Note Debridement Note Post-Debridement Measurements and Additional Note: Post-Debridement Measurements/Treatment - Nurse 1 - General Ulcer Assessment Start: 10/07/23 08:27 Freq: Status: Active Protocol: WC.LOWEXT Activity Type Activity Date Activity User E-sign Co-sign Detail Recorded Client Recorded Date Recorded By Document 10/11/23 12:05 RB [id number] 10/11/23 12:09 RB Document 10/18/23 11:08 KW Desktop 10/18/23 11:25 KW 10/11/23 10/18/23 12:05 11:08 - Today's Visit Information Type of service Follow-up Visit Follow-up Visit (Physician/FRONT END MANAGER (Physician/FRONT END MANAGER ) ) Arrival Mode Wheelchair Wheelchair Transfer Assistance Manual Accompanied by step father Patient Identification Verified (Name & Yes Yes ) Patient Requires Transmission-Based No Precautions Finger Stick Blood Sugar(mg/dl) (if 123 indicated): Blood Sugar Stated by Patient Height and Weight Body Mass Index (BMI) 33.9 33.9 BMI Classification Obese Obese Vital Signs Temperature (97.8 F-99.1 F) 98 F 96.6 F L Temperature Source Temporal Temporal Pulse Rate (60-100) 94 85 Pulse Location Monitor Monitor Respiratory Rate (12-18) 18 18 Respiratory rate source Observation Observation Oxygen Delivery Method Room Air Blood Pressure (90/60-120/80) 121/73 H 129/80 H Blood Pressure Mean (mm Hg) 89 96 Source Monitor Monitor Position Sitting Semi-Fowlers Blood Pressure Location Left Arm Left Arm History Since Last Visit- (Skip if this is Patient's initial visit) Have you changed medications since your No No last visit? Any new allergies or adverse reactions No No Had a fall/change in ADL's that may No No increase risk of falls Signs or symptoms of abuse and/or No No neglect since last visit Have you been in the hospital since your No No last visit? Has dressing in place as prescribed Yes Yes Has compression in place as prescribed Yes Yes Has offloadiing in place as prescribed Yes Yes Experienced any changes in pain level or No No management Left Footwear No Footwear Right Footwear Regular Shoe Pain Scale: 0-10 Numeric Is Patient Pain Free? Yes Yes WC - Nurse 1 - General Ulcer Measurement Start: 10/07/23 08:27 Freq: Status: Active Protocol: Activity Type Activity Date Activity User E-sign Co-sign Detail Recorded Client Recorded Date Recorded By Document 10/11/23 12:05 RB [id number] 10/11/23 12:09 RB Document 10/18/23 11:08 KW Desktop 10/18/23 11:25 KW 10/11/23 10/18/23 12:05 11:08 Wound Center Nurse 1 7. L lateral ankle -Combined with other wound No -Current Size (cm) - Length 1 -Current Size (cm) - Width 0.5 -Current Size (cm) - Depth 1 -Total Square Cm 0.5 -Tunneling No -Undermining/Tunneling No -Circular Undermining No -Exudate Amt Large Small -Exudate Type Serosanguineous Serosanguineous -Wound Margin Thickened & Thickened & Rolled Under Rolled Under -Granulation Amt Medium (34-66%) Large (67-100%) -Granulation Quality [place] -Slough/Fibrin Yes -Necrosis Amt Medium (34-66%) -Necrotic Tissue Type Adherent Slough -Structure Exposed N/A -Texture ([place]-wound Skin Appearance) Assessed, Assessed, Scarring Localized Edema -Moisture ([place]-wound Skin Appearance) Assessed Assessed -Color ([place]-wound Skin Appearance) Assessed Assessed -Temperature ([place]-wound Skin No Abnormality No Abnormality Appearance) (Pt Warm) (Pt Warm) -Tenderness on Palpation ([place]-wound No No Skin Appearance) -Ulcer Cleansing Wound Cleanser Soap and Water -Foul Odor after Cleansing No No -Anesthetic Used 4% Lidocaine 4% Lidocaine Solution Solution 6. L medial ankle -Combined with other wound No -Current Size (cm) - Length 1 0.5 -Current Size (cm) - Width 0.5 0.2 -Current Size (cm) - Depth 1 1 -Total Square Cm 0.5 0.10 -Tunneling No -Undermining/Tunneling No -Circular Undermining No -Exudate Amt Large Small -Exudate Type Serosanguineous Serosanguineous -Wound Margin Thickened & Thickened & Rolled Under Rolled Under -Granulation Amt Medium (34-66%) Large (67-100%) -Granulation Quality [place] -Slough/Fibrin Yes -Necrosis Amt Medium (34-66%) -Necrotic Tissue Type Adherent Slough -Structure Exposed N/A -Texture ([place]-wound Skin Appearance) Assessed, Assessed Scarring -Moisture ([place]-wound Skin Appearance) Assessed Assessed -Color ([place]-wound Skin Appearance) Assessed Assessed -Temperature ([place]-wound Skin No Abnormality No Abnormality Appearance) (Pt Warm) (Pt Warm) -Tenderness on Palpation ([place]-wound No Skin Appearance) -Ulcer Cleansing Wound Cleanser Soap and Water -Foul Odor after Cleansing No -Anesthetic Used 5% Lidocaine 4% Lidocaine Gel Solution Left Calf (cm) 35 Left Ankle (cm) 24.5 WC - Nurse 2 - General Ulcer CM Notes Start: 10/07/23 08:27 Freq: Status: Active Protocol: Activity Type Activity Date Activity User E-sign Co-sign Detail Recorded Client Recorded Date Recorded By Document 10/11/23 11:34 Laptop 10/11/23 11:52 10/11/23 11:34 Wound Center Nurse 2 7. L lateral ankle -Time 11:50 -Correct Patient Yes -Correct Side, Site, Position Yes -Correct Procedure Yes -Procedure Performed Yes -Type of Procedure Debridement -Clinical Debridement Muscle / Fascia -Tissue Removed Muscle -Post Debridement (cm) - Length 6.0 -Post Debridement (cm) - Width 1.0 -Post Debridement (cm) - Depth 1.2 -Total Square (Post) (cm) 6.00 -Area of Debridement (cm) - Length 6.0 -Area of Debridement (cm) - Width 1.0 -Total Square (Area) (cm) 6.00 -Tunneling No -Undermining/Tunneling No -Circular Undermining No -Wound/Ulcer Outcome Not Healed -Ulcer Cleansing Rinsed/ Irrigated with Saline -Foul Odor after Cleansing No -Bioengineered Tissue No -Bleeding Controlled with Pressure -Treatment Response Procedure Tolerated Well -Offloading No -Debridement - Muscle / Fascia, 1st No 20sq cm 6. L medial ankle -Time 11:51 -Correct Patient Yes -Correct Side, Site, Position Yes -Correct Procedure Yes -Procedure Performed Yes -Type of Procedure Debridement -Clinical Debridement Muscle / Fascia -Tissue Removed Muscle -Post Debridement (cm) - Length 1.1 -Post Debridement (cm) - Width 0.4 -Post Debridement (cm) - Depth 1 -Total Square (Post) (cm) 0.44 -Area of Debridement (cm) - Length 1.1 -Area of Debridement (cm) - Width 0.4 -Total Square (Area) (cm) 0.44 -Tunneling No -Undermining/Tunneling Yes -Undermining/Tunneling Starts (O'clock 2 ) -Undermining/Tunneling Ends (O'clock) 5 -Maximum Distance (cm) 2.0 -Circular Undermining No -Wound/Ulcer Outcome Not Healed -Ulcer Cleansing Rinsed/ Irrigated with Saline -Foul Odor after Cleansing No -Bioengineered Tissue No -Bleeding Controlled with Pressure -Treatment Response Procedure Tolerated Well -Offloading No -Debridement - Muscle / Fascia, 1st Yes 20sq cm Pain Scale: 0-10 Numeric Is Patient Pain Free? Yes WC - Nurse 3 - General Ulcer D/C NN Start: 10/07/23 08:27 Freq: Status: Active Protocol: Activity Type Activity Date Activity User E-sign Co-sign Detail Recorded Client Recorded Date Recorded By Document 10/07/23 10:04 BRIAN [id number] 10/07/23 10:07 JF Document 10/11/23 12:05 RB [id number] 10/11/23 12:09 RB 10/07/23 10/11/23 10:04 12:05 Wound Care Center Nurse 3 7. L lateral ankle -Other Dressing DAKINS MOISTENED GAUZE -Primary Dressing Covered/Secured with Dry Gauze & Roll Gauze, Secured with Tape 6. L medial ankle -Other Dressing [id number] MOISTENED GAUZE -Primary Dressing Covered/Secured with Dry Gauze & Roll Gauze, Secured with Tape Left -Tubular Bandage Double Layer -Size of Tubigrip Used Size E -Size E ($) 2 Treatment Response Procedure Tolerated Well Vital Signs Temperature (97.8 F-99.1 F) 98 F Temperature Source Temporal Pulse Rate (60-100) 94 Pulse Location Monitor Respiratory Rate (12-18) 18 Respiratory rate source Observation Blood Pressure (90/60-120/80) 121/73 H Blood Pressure Mean (mm Hg) 89 Source Monitor Position Sitting Blood Pressure Location Left Arm Pain Scale: 0-10 Numeric Is Patient Pain Free? Yes Yes WC - Visit Discharge Discharge Condition Stable Stable Ambulatory Status Wheelchair Wheelchair Transportation Private Auto Private Auto Accompanied by PARENTS Medication Reconcilliation completed & No provided to patient/care provider Clinical Summary of Care Provided Yes Notes: Patient tolerated HBO treatment without difficulty. Heading to the hospital to get his xray ordered by Dr Perkins. Assessment/Plan Assessment/Plan (1) Osteomyelitis of ankle, left, acute: CODE(S): M86.172 - Other acute osteomyelitis, left ankle and foot PLAN: Exam performed Patient on IV meropenem via PICC line per infectious disease for enterococcal and pseudomonal infection left lower extremity with bone involvement will transition to p.o. antibiotics per infectious disease. Cultures from new onset abscess last week negative for any bacterial growth. wound significantly improved Today left lower extremity wound to lateral ankle was debrided down to and including level of muscle excisionally using a 5 mm dermal curette without incident. No anesthesia due to neuropathy. Hemostasis obtained with light compression. Patient tolerated procedure well. Pre and postdebridement measurements documented nursing notes. Change to daily Dakin's packing with DSD and Tubigrip. Patient follows up weekly Patient nonweightbearing left lower extremity Patient receiving HBO therapy Blood sugar well-controlled Concern for new onset deep abscess with redness swelling to left forefoot. MRI ordered. Follow-up 1 week (2) Charcot foot due to diabetes mellitus: CODE(S): E11.610 - 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 arthropathy (3) Abscess of bursa, left ankle and foot: CODE(S): M71.072 - Abscess of bursa, left ankle and foot (4) Cellulitis of left lower limb: CODE(S): L03.116 - Cellulitis of left lower limb (5) Non-pressure chronic ulcer of left 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: CODE(S): L97.322 - Non-pressure chronic ulcer of left 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 (6) Type 2 diabetes mellitus with diabetic polyneuropathy: CODE(S): E11.42 - Type 2 diabetes mellitus with diabetic polyneuropathy QUALIFIERS: Diabetes mellitus long term care administrator insulin use: without long term care administrator use Qualified Code(s): E11.42 - Type 2 diabetes mellitus with diabetic polyneuropathy
[2023-10-18 14:33] LABS: Bedside Glucose 129 mg/dL (74-106)
[2023-10-18 14:33] LABS: Bedside Glucose 125 mg/dL (74-106)
[2023-10-19 12:56] LABS: Bedside Glucose 166 mg/dL (74-106)
--- NOTE | 2023-10-19 13:01 | HBO.PN.PCM_ITS ---
History of Present Illness Date of Service: 10/19/23 Chief Complaint: Diabetic left foot infection with gas gangrene and osteom yelitis; Li grade 3 diabetic foot infection. Subjective Subjective The patient underwent his 1th hyperbaric oxygen therapy session today. The patient is scheduled for a total of 30 such sessions. Tolerance of hyperbaric oxygen therapy: Hyperbaric oxygen therapy was provided as per the facility's protocol. Hyperbaric oxygen therapy was undertaken at 2 krzysztof and 100% oxygen for 90 minutes without air breaks. The patient tolerated hyperbaric oxygen therapy well, without complaints or complications. Upon emergence from the hyperbaric chamber, the patient's vital signs remained stable. Blood sugar levels were monitored both before and after hyperbaric oxygen therapy, and found to be satisfactory. Objective Data Objective Data Vital Signs: Vital Signs Temp Pulse Resp BP O2 Del Method O2 Flow Rate 96.6 F L 85 18 129/80 H Room Air 99 10/18/23 11:08 10/18/23 11:08 10/18/23 11:08 10/18/23 11:08 10/18/23 11:08 10/07/23 00:29 Oxygen Flow Rate (L/min) 99 Oxygen Delivery Method Room Air Weight: 250 lb Body Mass Index (BMI) 33.9 Lab / Micro Data Labs: Laboratory Results - last 24 hr 10/18/23 12:00: POC Glucose 129 H 10/18/23 12:19: POC Glucose 125 H 10/19/23 12:38: POC Glucose 166 H Exam Physical Exam Const alert, oriented x3 and no apparent distress HEENT normocephalic Tympanic Membrane: TM's normal bilaterally Resp normal respiratory effort Effort and Inspection: able to speak in complete sentences Auscultation: clear to auscultation bilaterally Cardio regular rate and regular rhythm Psych mental status grossly normal, thought process normal, cooperative, affect normal and speech normal Nursing Assessment and Debridement Post-Debridement Measurements and Additional Note: Post-Debridement Measurements/Treatment - Nurse 1 - General Ulcer Assessment Start: 10/07/23 08:27 Freq: Status: Active Protocol: [email or web address] Activity Type Activity Date Activity User E-sign Co-sign Detail Recorded Client Recorded Date Recorded By Document 10/18/23 11:08 KW Desktop 10/18/23 11:25 KW 10/18/23 11:08 - Today's Visit Information Type of service Follow-up Visit (Physician/STOREHOUSE CLERK ) Arrival Mode Wheelchair Accompanied by step father Patient Identification Verified (Name & Yes ) Finger Stick Blood Sugar(mg/dl) (if 123 indicated): Blood Sugar Stated by Patient Height and Weight Body Mass Index (BMI) 33.9 BMI Classification Obese Vital Signs Temperature (97.8 F-99.1 F) 96.6 F L Temperature Source Temporal Pulse Rate (60-100) 85 Pulse Location Monitor Respiratory Rate (12-18) 18 Respiratory rate source Observation Oxygen Delivery Method Room Air Blood Pressure (90/60-120/80) 129/80 H Blood Pressure Mean (mm Hg) 96 Source Monitor Position Semi-Fowlers Blood Pressure Location Left Arm History Since Last Visit- (Skip if this is Patient's initial visit) Have you changed medications since your No last visit? Any new allergies or adverse reactions No Had a fall/change in ADL's that may No increase risk of falls Signs or symptoms of abuse and/or No neglect since last visit Have you been in the hospital since your No last visit? Has dressing in place as prescribed Yes Has compression in place as prescribed Yes Has offloadiing in place as prescribed Yes Experienced any changes in pain level or No management Left Footwear No Footwear Right Footwear Regular Shoe Pain Scale: 0-10 Numeric Is Patient Pain Free? Yes - Nurse 1 - General Ulcer Measurement Start: 10/07/23 08:27 Freq: Status: Active Protocol: Activity Type Activity Date Activity User E-sign Co-sign Detail Recorded Client Recorded Date Recorded By Document 10/18/23 11:08 KW Desktop 10/18/23 11:25 KW 10/18/23 11:08 Wound Center Nurse 1 7. L lateral ankle superior -Exudate Amt Small -Exudate Type Serosanguineous -Wound Margin Thickened & Rolled Under -Granulation Amt Large (67-100%) -Granulation Quality [place] -Texture ([place]-wound Skin Appearance) Assessed, Localized Edema -Moisture ([place]-wound Skin Appearance) Assessed -Color ([place]-wound Skin Appearance) Assessed -Temperature ([place]-wound Skin No Abnormality Appearance) (Pt Warm) -Tenderness on Palpation ([place]-wound No Skin Appearance) -Ulcer Cleansing Soap and Water -Foul Odor after Cleansing No -Anesthetic Used 4% Lidocaine Solution 6. L medial ankle -Current Size (cm) - Length 0.5 -Current Size (cm) - Width 0.2 -Current Size (cm) - Depth 1 -Total Square Cm 0.10 -Exudate Amt Small -Exudate Type Serosanguineous -Wound Margin Thickened & Rolled Under -Granulation Amt Large (67-100%) -Granulation Quality [place] -Texture ([place]-wound Skin Appearance) Assessed -Moisture ([place]-wound Skin Appearance) Assessed -Color ([place]-wound Skin Appearance) Assessed -Temperature ([place]-wound Skin No Abnormality Appearance) (Pt Warm) -Ulcer Cleansing Soap and Water -Anesthetic Used 4% Lidocaine Solution Left Calf (cm) 35 Left Ankle (cm) 24.5 WC - Nurse 2 - General Ulcer CM Notes Start: 10/07/23 08:27 Freq: Status: Active Protocol: Activity Type Activity Date Activity User E-sign Co-sign Detail Recorded Client Recorded Date Recorded By Document 10/18/23 11:41 Laptop 10/18/23 11:45 10/18/23 11:41 Wound Center Nurse 2 8-left lateral inferior foot -Time 11:42 -Correct Patient Yes -Correct Side, Site, Position Yes -Correct Procedure Yes -Procedure Performed Yes -Type of Procedure Debridement -Clinical Debridement Subcutaneous -Tissue Removed Subcutaneous -Post Debridement (cm) - Length 0.3 -Post Debridement (cm) - Width 0.8 -Post Debridement (cm) - Depth 0.5 -Total Square (Post) (cm) 0.24 -Area of Debridement (cm) - Length 0.3 -Area of Debridement (cm) - Width 0.8 -Total Square (Area) (cm) 0.24 -Tunneling No -Undermining/Tunneling No -Circular Undermining No -Wound/Ulcer Outcome Not Healed -Ulcer Cleansing Rinsed/ Irrigated with Saline -Foul Odor after Cleansing No -Bioengineered Tissue No -Bleeding Controlled with Pressure -Treatment Response Procedure Tolerated Well -Offloading No -Debridement - Subq, 1st 20sq cm No 7. L lateral ankle superior -Time 11:41 -Correct Patient Yes -Correct Side, Site, Position Yes -Correct Procedure Yes -Procedure Performed Yes -Type of Procedure Debridement -Clinical Debridement Subcutaneous -Tissue Removed Subcutaneous -Post Debridement (cm) - Length 0.9 -Post Debridement (cm) - Width 0.2 -Post Debridement (cm) - Depth 0.4 -Total Square (Post) (cm) 0.18 -Area of Debridement (cm) - Length 0.9 -Area of Debridement (cm) - Width 0.2 -Total Square (Area) (cm) 0.18 -Tunneling No -Undermining/Tunneling No -Circular Undermining No -Wound/Ulcer Outcome Not Healed -Ulcer Cleansing Rinsed/ Irrigated with Saline -Foul Odor after Cleansing No -Bioengineered Tissue No -Bleeding Controlled with Pressure -Treatment Response Procedure Tolerated Well -Offloading No -Assistive Device(s) Wheelchair -Debridement - Subq, 1st 20sq cm Yes 6. L medial ankle -Time 11:41 -Correct Patient Yes -Correct Side, Site, Position Yes -Correct Procedure Yes -Procedure Performed Yes -Type of Procedure Debridement -Clinical Debridement Subcutaneous -Tissue Removed Subcutaneous -Post Debridement (cm) - Length 0.9 -Post Debridement (cm) - Width 0.5 -Post Debridement (cm) - Depth 1.5 -Total Square (Post) (cm) 0.45 -Area of Debridement (cm) - Length 0.9 -Area of Debridement (cm) - Width 0.5 -Total Square (Area) (cm) 0.45 -Tunneling No -Undermining/Tunneling No -Circular Undermining No -Wound/Ulcer Outcome Not Healed -Ulcer Cleansing Rinsed/ Irrigated with Saline -Foul Odor after Cleansing No -Bioengineered Tissue No -Bleeding Controlled with Pressure -Treatment Response Procedure Tolerated Well -Offloading Yes -Type of Offloading Surgical Shoe -Assistive Device(s) Wheelchair -Debridement - Subq, 20sq cm No Pain Scale: 0-10 Numeric Is Patient Pain Free? Yes - Nurse 3 - General Ulcer D/C NN Start: 10/07/23 08:27 Freq: Status: Active Protocol: Activity Type Activity Date Activity User E-sign Co-sign Detail Recorded Client Recorded Date Recorded By Document 10/18/23 15:40 RB Desktop 10/18/23 15:42 RB 10/18/23 15:40 Wound Care Center Nurse 3 8-left lateral inferior foot -Other Dressing dakin moistened gauze -Primary Dressing Covered/Secured with Dry Gauze,Dry Gauze & Roll Gauze,Secured with Tape 7. L lateral ankle superior -Ulcer Cleansing Rinsed/ Irrigated with Saline -Other Dressing dakins moistened gauze -Primary Dressing Covered/Secured with Dry Gauze,Dry Gauze & Roll Gauze,Secured with Tape 6. L medial ankle -Other Dressing dakins moistened gauze -Primary Dressing Covered/Secured with Dry Gauze,Dry Gauze & Roll Gauze,Secured with Tape Treatment Response Procedure Tolerated Well Pain Scale: 0-10 Numeric Is Patient Pain Free? Yes WC - Visit Discharge Discharge Condition Stable Ambulatory Status Wheelchair Transportation Private Auto Medication Reconcilliation completed & No provided to patient/care provider Clinical Summary of Care Provided Yes Assessment/Plan Assessment/Plan (1) Osteomyelitis of ankle or foot, left, acute: CODE(S): M86.172 - Other acute osteomyelitis, left ankle and foot (2) Osteomyelitis of ankle, left, acute: CODE(S): M86.172 - Other acute osteomyelitis, left ankle and foot (3) Abscess of bursa, left ankle and foot: CODE(S): M71.072 - Abscess of bursa, left ankle and foot (4) Cellulitis of left lower limb: CODE(S): L03.116 - Cellulitis of left lower limb (5) Charcot foot due to diabetes mellitus: CODE(S): E11.610 - 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 arthropathy (6) Non-pressure chronic ulcer of left 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: CODE(S): L97.322 - Non-pressure chronic ulcer of left 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 (7) Other acute postprocedural pain: CODE(S): G89.18 - Other acute postprocedural pain (8) Type 2 diabetes mellitus with diabetic polyneuropathy: CODE(S): E11.42 - Type 2 diabetes mellitus with diabetic polyneuropathy QUALIFIERS: Diabetes mellitus long haul truck driver insulin use: without skilled nursing use Qualified Code(s): E11.42 - Type 2 diabetes mellitus with diabetic polyneuropathy (9) 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 muscle: CODE(S): L97.523 - 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 muscle (10) Gas gangrene of foot: CODE(S): A48.0 - Gas gangrene (11) Diabetic infection of left foot: CODE(S): E11.628 - Type 2 diabetes mellitus with other skin complications; L08.9 - Local infection of the skin and subcutaneous tissue, unspecified (12) 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 bone: CODE(S): L97.524 - 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 bone (13) Cellulitis: CODE(S): L03.90 - Cellulitis, unspecified QUALIFIERS: Site of cellulitis: extremity Site of cellulitis of extremity: lower extremity Laterality: left Qualified Code(s): L03.116 - Cellulitis of left lower limb (14) Hypertension: CODE(S): I10 - Essential (primary) hypertension QUALIFIERS: Hypertension type: primary hypertension Qualified Code(s): I10 - Essential (primary) hypertension PLAN: Plan The patient appears to be tolerating hyperbaric oxygen therapy well, which will be continued as per their medical treatment plan.
[2023-10-19 13:28] VITALS: BP 117/73; BP 128/81; PULSE 90; PULSE 92; RESP 16; TEMP 36.2
[2023-10-19 15:07] LABS: Bedside Glucose 170 mg/dL (74-106)
--- NOTE | 2023-10-20 12:49 | HBO.PN.PCM_ITS ---
History of Present Illness Date of Service: 10/20/23 Chief Complaint: Diabetic left foot infection with gas gangrene and osteom yelitis; Li grade 3 diabetic foot infection. History of Wound: 43-year-old male status post left Charcot reconstruction. Denies constitutional symptoms. Wound is improving today. Subjective Subjective The patient underwent his 20th hyperbaric oxygen therapy session today. The patient is scheduled for a total of 30 such sessions. Tolerance of hyperbaric oxygen therapy: Hyperbaric oxygen therapy was provided as per the facility's protocol. Hyperbaric oxygen therapy was undertaken at 2 krzysztof and 100% oxygen for 90 minutes without air breaks. The patient tolerated hyperbaric oxygen therapy well, without complaints or complications. Upon emergence from the hyperbaric chamber, the patient's vital signs remained stable. Blood sugar levels were monitored both before and after hyperbaric oxygen therapy, and found to be satisfactory. Objective Data Objective Data Vital Signs: Vital Signs Temp Pulse Resp BP O2 Del Method O2 Flow Rate 97.1 F L 92 16 128/81 H Room Air 99 10/19/23 13:28 10/19/23 13:28 10/19/23 13:28 10/19/23 13:28 10/18/23 11:08 10/07/23 00:29 Oxygen Flow Rate (L/min) 99 Oxygen Delivery Method Room Air Weight: 250 lb Body Mass Index (BMI) 33.9 Lab / Micro Data Labs: Laboratory Results - last 24 hr 10/19/23 12:38: POC Glucose 166 H 10/19/23 14:50: POC Glucose 170 H Exam Physical Exam Const alert, oriented x3 and no apparent distress HEENT normocephalic Tympanic Membrane: TM's normal bilaterally Resp normal respiratory effort Effort and Inspection: able to speak in complete sentences Auscultation: clear to auscultation bilaterally Cardio regular rate and regular rhythm Psych mental status grossly normal, thought process normal, cooperative, affect normal and speech normal Nursing Assessment and Debridement Post-Debridement Measurements and Additional Note: Post-Debridement Measurements/Treatment WC - Nurse 1 - General Ulcer Assessment Start: 10/07/23 08:27 Freq: Status: Active Protocol: [email or web address] Activity Type Activity Date Activity User E-sign Co-sign Detail Recorded Client Recorded Date Recorded By Document 10/18/23 11:08 KW Desktop 10/18/23 11:25 KW 10/18/23 11:08 - Today's Visit Information Type of service Follow-up Visit (Physician/SPOOL [employer]ORTER ) Arrival Mode Wheelchair Accompanied by step father Patient Identification Verified (Name & Yes ) Finger Stick Blood Sugar(mg/dl) (if 123 indicated): Blood Sugar Stated by Patient Height and Weight Body Mass Index (BMI) 33.9 BMI Classification Obese Vital Signs Temperature (97.8 F-99.1 F) 96.6 F L Temperature Source Temporal Pulse Rate (60-100) 85 Pulse Location Monitor Respiratory Rate (12-18) 18 Respiratory rate source Observation Oxygen Delivery Method Room Air Blood Pressure (90/60-120/80) 129/80 H Blood Pressure Mean (mm Hg) 96 Source Monitor Position Semi-Fowlers Blood Pressure Location Left Arm History Since Last Visit- (Skip if this is Patient's initial visit) Have you changed medications since your No last visit? Any new allergies or adverse reactions No Had a fall/change in ADL's that may No increase risk of falls Signs or symptoms of abuse and/or No neglect since last visit Have you been in the hospital since your No last visit? Has dressing in place as prescribed Yes Has compression in place as prescribed Yes Has offloadiing in place as prescribed Yes Experienced any changes in pain level or No management Left Footwear No Footwear Right Footwear Regular Shoe Pain Scale: 0-10 Numeric Is Patient Pain Free? Yes - Nurse 1 - General Ulcer Measurement Start: 10/07/23 08:27 Freq: Status: Active Protocol: Activity Type Activity Date Activity User E-sign Co-sign Detail Recorded Client Recorded Date Recorded By Document 10/18/23 11:08 Desktop 10/18/23 11:25 10/18/23 11:08 Wound Center Nurse 1 7. L lateral ankle superior -Exudate Amt Small -Exudate Type Serosanguineous -Wound Margin Thickened & Rolled Under -Granulation Amt Large (67-100%) -Granulation Quality [place] -Texture ([place]-wound Skin Appearance) Assessed, Localized Edema -Moisture ([place]-wound Skin Appearance) Assessed -Color ([place]-wound Skin Appearance) Assessed -Temperature ([place]-wound Skin No Abnormality Appearance) (Pt Warm) -Tenderness on Palpation ([place]-wound No Skin Appearance) -Ulcer Cleansing Soap and Water -Foul Odor after Cleansing No -Anesthetic Used 4% Lidocaine Solution 6. L medial ankle -Current Size (cm) - Length 0.5 -Current Size (cm) - Width 0.2 -Current Size (cm) - Depth 1 -Total Square Cm 0.10 -Exudate Amt Small -Exudate Type Serosanguineous -Wound Margin Thickened & Rolled Under -Granulation Amt Large (67-100%) -Granulation Quality [place] -Texture ([place]-wound Skin Appearance) Assessed -Moisture ([place]-wound Skin Appearance) Assessed -Color ([place]-wound Skin Appearance) Assessed -Temperature ([place]-wound Skin No Abnormality Appearance) (Pt Warm) -Ulcer Cleansing Soap and Water -Anesthetic Used 4% Lidocaine Solution Left Calf (cm) 35 Left Ankle (cm) 24.5 WC - Nurse 2 - General Ulcer CM Notes Start: 10/07/23 08:27 Freq: Status: Active Protocol: Activity Type Activity Date Activity User E-sign Co-sign Detail Recorded Client Recorded Date Recorded By Document 10/18/23 11:41 Laptop 10/18/23 11:45 10/18/23 11:41 Wound Center Nurse 2 8-left lateral inferior foot -Time 11:42 -Correct Patient Yes -Correct Side, Site, Position Yes -Correct Procedure Yes -Procedure Performed Yes -Type of Procedure Debridement -Clinical Debridement Subcutaneous -Tissue Removed Subcutaneous -Post Debridement (cm) - Length 0.3 -Post Debridement (cm) - Width 0.8 -Post Debridement (cm) - Depth 0.5 -Total Square (Post) (cm) 0.24 -Area of Debridement (cm) - Length 0.3 -Area of Debridement (cm) - Width 0.8 -Total Square (Area) (cm) 0.24 -Tunneling No -Undermining/Tunneling No -Circular Undermining No -Wound/Ulcer Outcome Not Healed -Ulcer Cleansing Rinsed/ Irrigated with Saline -Foul Odor after Cleansing No -Bioengineered Tissue No -Bleeding Controlled with Pressure -Treatment Response Procedure Tolerated Well -Offloading No -Debridement - Subq, 1st 20sq cm No 7. L lateral ankle superior -Time 11:41 -Correct Patient Yes -Correct Side, Site, Position Yes -Correct Procedure Yes -Procedure Performed Yes -Type of Procedure Debridement -Clinical Debridement Subcutaneous -Tissue Removed Subcutaneous -Post Debridement (cm) - Length 0.9 -Post Debridement (cm) - Width 0.2 -Post Debridement (cm) - Depth 0.4 -Total Square (Post) (cm) 0.18 -Area of Debridement (cm) - Length 0.9 -Area of Debridement (cm) - Width 0.2 -Total Square (Area) (cm) 0.18 -Tunneling No -Undermining/Tunneling No -Circular Undermining No -Wound/Ulcer Outcome Not Healed -Ulcer Cleansing Rinsed/ Irrigated with Saline -Foul Odor after Cleansing No -Bioengineered Tissue No -Bleeding Controlled with Pressure -Treatment Response Procedure Tolerated Well -Offloading No -Assistive Device(s) Wheelchair -Debridement - Subq, 1st 20sq cm Yes 6. L medial ankle -Time 11:41 -Correct Patient Yes -Correct Side, Site, Position Yes -Correct Procedure Yes -Procedure Performed Yes -Type of Procedure Debridement -Clinical Debridement Subcutaneous -Tissue Removed Subcutaneous -Post Debridement (cm) - Length 0.9 -Post Debridement (cm) - Width 0.5 -Post Debridement (cm) - Depth 1.5 -Total Square (Post) (cm) 0.45 -Area of Debridement (cm) - Length 0.9 -Area of Debridement (cm) - Width 0.5 -Total Square (Area) (cm) 0.45 -Tunneling No -Undermining/Tunneling No -Circular Undermining No -Wound/Ulcer Outcome Not Healed -Ulcer Cleansing Rinsed/ Irrigated with Saline -Foul Odor after Cleansing No -Bioengineered Tissue No -Bleeding Controlled with Pressure -Treatment Response Procedure Tolerated Well -Offloading Yes -Type of Offloading Surgical Shoe -Assistive Device(s) Wheelchair -Debridement - Subq, 1st 20sq cm No Pain Scale: 0-10 Numeric Is Patient Pain Free? Yes WC - Nurse 3 - General Ulcer D/C NN Start: 10/07/23 08:27 Freq: Status: Active Protocol: Activity Type Activity Date Activity User E-sign Co-sign Detail Recorded Client Recorded Date Recorded By Document 10/18/23 15:40 RB Desktop 10/18/23 15:42 RB 10/18/23 15:40 Wound Care Center Nurse 3 8-left lateral inferior foot -Other Dressing dakin moistened gauze -Primary Dressing Covered/Secured with Dry Gauze,Dry Gauze & Roll Gauze,Secured with Tape 7. L lateral ankle superior -Ulcer Cleansing Rinsed/ Irrigated with Saline -Other Dressing dakins moistened gauze -Primary Dressing Covered/Secured with Dry Gauze,Dry Gauze & Roll Gauze,Secured with Tape 6. L medial ankle -Other Dressing dakins moistened gauze -Primary Dressing Covered/Secured with Dry Gauze,Dry Gauze & Roll Gauze,Secured with Tape Treatment Response Procedure Tolerated Well Pain Scale: 0-10 Numeric Is Patient Pain Free? Yes WC - Visit Discharge Discharge Condition Stable Ambulatory Status Wheelchair Transportation Private Auto Medication Reconcilliation completed & No provided to patient/care provider Clinical Summary of Care Provided Yes Assessment/Plan Assessment/Plan (1) Osteomyelitis of ankle or foot, left, acute: CODE(S): M86.172 - Other acute osteomyelitis, left ankle and foot (2) Osteomyelitis of ankle, left, acute: CODE(S): M86.172 - Other acute osteomyelitis, left ankle and foot (3) Abscess of bursa, left ankle and foot: CODE(S): M71.072 - Abscess of bursa, left ankle and foot (4) Cellulitis of left lower limb: CODE(S): L03.116 - Cellulitis of left lower limb (5) Charcot foot due to diabetes mellitus: CODE(S): E11.610 - 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 arthropathy (6) Non-pressure chronic ulcer of left 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: CODE(S): L97.322 - Non-pressure chronic ulcer of left 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 (7) Other acute postprocedural pain: CODE(S): G89.18 - Other acute postprocedural pain (8) Type 2 diabetes mellitus with diabetic polyneuropathy: CODE(S): E11.42 - Type 2 diabetes mellitus with diabetic polyneuropathy QUALIFIERS: Diabetes mellitus watermelon inspector insulin use: without [place] [facility] use Qualified Code(s): E11.42 - Type 2 diabetes mellitus with diabetic polyneuropathy (9) 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 muscle: CODE(S): L97.523 - 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 muscle (10) Gas gangrene of foot: CODE(S): A48.0 - Gas gangrene (11) Diabetic infection of left foot: CODE(S): E11.628 - Type 2 diabetes mellitus with other skin complications; L08.9 - Local infection of the skin and subcutaneous tissue, unspecified (12) 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 bone: CODE(S): L97.524 - 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 bone (13) Cellulitis: CODE(S): L03.90 - Cellulitis, unspecified QUALIFIERS: Site of cellulitis: extremity Site of cellulitis of extremity: lower extremity Laterality: left Qualified Code(s): L03.116 - Cellulitis of left lower limb (14) Hypertension: CODE(S): I10 - Essential (primary) hypertension QUALIFIERS: Hypertension type: primary hypertension Qualified Code(s): I10 - Essential (primary) hypertension PLAN: Plan The patient appears to be tolerating hyperbaric oxygen therapy well, which will be continued as per their medical treatment plan.
[2023-10-20 13:06] LABS: Bedside Glucose 178 mg/dL (74-106)
[2023-10-20 13:24] VITALS: BP 111/67; BP 117/67; PULSE 84; PULSE 88; RESP 18; TEMP 36.2
[2023-10-20 15:34] LABS: Bedside Glucose 172 mg/dL (74-106)
[2023-10-21 11:32] VITALS: BP 125/69; BP 131/78; PULSE 79; PULSE 90; RESP 18; TEMP 35.8
[2023-10-21 13:44] LABS: Bedside Glucose 160 mg/dL (74-106)
[2023-10-21 13:44] LABS: Bedside Glucose 142 mg/dL (74-106)
--- NOTE | 2023-10-21 14:50 | PCM.HBO.PN ---
History of Present Illness Date of Service: 10/21/23 Chief Complaint: Diabetic left foot infection with gas gangrene and osteomyelitis; Li grade 3 diabetic foot infection. History of Wound: 43-year-old male status post left Charcot reconstruction. Denies constitutional symptoms. Wound is improving today. Progress of Wound: The patient underwent his 20th hyperbaric oxygen therapy session today. The patient is scheduled for a total of 30 such sessions. Objective Data Objective Data Vital Signs: Vital Signs Temp Pulse Resp BP O2 Del Method O2 Flow Rate 96.5 F L 90 18 131/78 H Room Air 99 10/21/23 11:32 10/21/23 11:32 10/21/23 11:32 10/21/23 11:32 10/18/23 11:08 10/07/23 00:29 Oxygen Flow Rate (L/min) 99 Oxygen Delivery Method Room Air Weight: 113.398 kg Body Mass Index (BMI) 33.9 Lab / Micro Data Labs: Laboratory Results - last 24 hr 10/20/23 14:41: POC Glucose 172 H 10/21/23 11:04: POC Glucose 160 H 10/21/23 13:26: POC Glucose 142 H Exam Physical Exam Const alert, oriented x3 and no apparent distress Psych mental status grossly normal, thought process normal, cooperative, affect normal and speech normal Nursing Assessment and Debridement Post-Debridement Measurements and Additional Note: Post-Debridement Measurements/Treatment WC - Nurse 3 - General Ulcer D/C NN Start: 10/07/23 08:27 Freq: Status: Active Protocol: Activity Type Activity Date Activity User E-sign Co-sign Detail Recorded Client Recorded Date Recorded By Document 10/18/23 15:40 RB Desktop 10/18/23 15:42 RB 10/18/23 15:40 Wound Care Center Nurse 3 8-left lateral inferior foot -Other Dressing dakin moistened gauze -Primary Dressing Covered/Secured with Dry Gauze,Dry Gauze & Roll Gauze,Secured with Tape 7. L lateral ankle superior -Ulcer Cleansing Rinsed/ Irrigated with Saline -Other Dressing dakins moistened gauze -Primary Dressing Covered/Secured with Dry Gauze,Dry Gauze & Roll Gauze,Secured with Tape 6. L medial ankle -Other Dressing dakins moistened gauze -Primary Dressing Covered/Secured with Dry Gauze,Dry Gauze & Roll Gauze,Secured with Tape Treatment Response Procedure Tolerated Well Pain Scale: 0-10 Numeric Is Patient Pain Free? Yes WC - Visit Discharge Discharge Condition Stable Ambulatory Status Wheelchair Transportation Private Auto Medication Reconcilliation completed & No provided to patient/care provider Clinical Summary of Care Provided Yes Assessment/Plan Assessment/Plan (1) Osteomyelitis of ankle or foot, left, acute: CODE(S): M86.172 - Other acute osteomyelitis, left ankle and foot (2) Osteomyelitis of ankle, left, acute: CODE(S): M86.172 - Other acute osteomyelitis, left ankle and foot (3) Abscess of bursa, left ankle and foot: CODE(S): M71.072 - Abscess of bursa, left ankle and foot (4) Cellulitis of left lower limb: CODE(S): L03.116 - Cellulitis of left lower limb (5) Charcot foot due to diabetes mellitus: CODE(S): E11.610 - 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 arthropathy (6) Non-pressure chronic ulcer of left 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: CODE(S): L97.322 - Non-pressure chronic ulcer of left 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 (7) Other acute postprocedural pain: CODE(S): G89.18 - Other acute postprocedural pain (8) Type 2 diabetes mellitus with diabetic polyneuropathy: CODE(S): E11.42 - Type 2 diabetes mellitus with diabetic polyneuropathy QUALIFIERS: Diabetes mellitus half-way insulin use: without termite exterminator helper use Qualified Code(s): E11.42 - Type 2 diabetes mellitus with diabetic polyneuropathy (9) 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 muscle: CODE(S): L97.523 - 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 muscle (10) Gas gangrene of foot: CODE(S): A48.0 - Gas gangrene (11) Diabetic infection of left foot: CODE(S): E11.628 - Type 2 diabetes mellitus with other skin complications; L08.9 - Local infection of the skin and subcutaneous tissue, unspecified (12) 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 bone: CODE(S): L97.524 - 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 bone (13) Cellulitis: CODE(S): L03.90 - Cellulitis, unspecified QUALIFIERS: Site of cellulitis: extremity Site of cellulitis of extremity: lower extremity Laterality: left Qualified Code(s): L03.116 - Cellulitis of left lower limb (14) Hypertension: CODE(S): I10 - Essential (primary) hypertension QUALIFIERS: Hypertension type: primary hypertension Qualified Code(s): I10 - Essential (primary) hypertension PLAN: Plan The patient appears to be tolerating hyperbaric oxygen therapy well, which will be continued as per their medical treatment plan.
[2023-10-24 13:07] LABS: Bedside Glucose 154 mg/dL (74-106)
[2023-10-24 13:14] VITALS: BP 124/71; BP 129/85; PULSE 84; PULSE 92; RESP 16; RESP 18; TEMP 35.9; TEMP 36.2
--- NOTE | 2023-10-24 13:15 | HBO.PN.PCM_ITS ---
History of Present Illness Date of Service: 10/24/23 Chief Complaint: Diabetic left foot infection with gas gangrene and osteom yelitis; Li grade 3 diabetic foot infection. History of Wound: 43-year-old male status post left Charcot reconstruction. Denies constitutional symptoms. Wound is improving today. Subjective Subjective The patient underwent his 21st hyperbaric oxygen therapy session today. The patient is scheduled for a total of 30 such sessions. Tolerance of hyperbaric oxygen therapy: Hyperbaric oxygen therapy was provided as per the facility's protocol. Hyperbaric oxygen therapy was undertaken at 2 krzysztof and 100% oxygen for 90 minutes without air breaks. The patient tolerated hyperbaric oxygen therapy well, without complaints or complications. Upon emergence from the hyperbaric chamber, the patient's vital signs remained stable. Blood sugar levels were monitored both before and after hyperbaric oxygen therapy, and found to be satisfactory. Objective Data Objective Data Vital Signs: Vital Signs Temp Pulse Resp BP O2 Del Method O2 Flow Rate 96.5 F L 90 18 131/78 H Room Air 99 10/21/23 11:32 10/21/23 11:32 10/21/23 11:32 10/21/23 11:32 10/18/23 11:08 10/07/23 00:29 Oxygen Flow Rate (L/min) 99 Oxygen Delivery Method Room Air Weight: 250 lb Body Mass Index (BMI) 33.9 Lab / Micro Data Labs: Laboratory Results - last 24 hr 10/24/23 12:48: POC Glucose 154 H Exam Physical Exam Const alert, oriented x3 and no apparent distress HEENT normocephalic Tympanic Membrane: TM's normal bilaterally Resp normal respiratory effort Effort and Inspection: able to speak in complete sentences Auscultation: clear to auscultation bilaterally Cardio regular rate and regular rhythm Psych mental status grossly normal, thought process normal, cooperative, affect normal and speech normal Assessment/Plan Assessment/Plan (1) Osteomyelitis of ankle or foot, left, acute: CODE(S): M86.172 - Other acute osteomyelitis, left ankle and foot (2) Osteomyelitis of ankle, left, acute: CODE(S): M86.172 - Other acute osteomyelitis, left ankle and foot (3) Abscess of bursa, left ankle and foot: CODE(S): M71.072 - Abscess of bursa, left ankle and foot (4) Cellulitis of left lower limb: CODE(S): L03.116 - Cellulitis of left lower limb (5) Charcot foot due to diabetes mellitus: CODE(S): E11.610 - 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 arthropathy (6) Non-pressure chronic ulcer of left 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: CODE(S): L97.322 - Non-pressure chronic ulcer of left 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 (7) Other acute postprocedural pain: CODE(S): G89.18 - Other acute postprocedural pain (8) Type 2 diabetes mellitus with diabetic polyneuropathy: CODE(S): E11.42 - Type 2 diabetes mellitus with diabetic polyneuropathy QUALIFIERS: Diabetes mellitus extermination inspector insulin use: without [place] [facility] use Qualified Code(s): E11.42 - Type 2 diabetes mellitus with diabetic polyneuropathy (9) 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 muscle: CODE(S): L97.523 - 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 muscle (10) Gas gangrene of foot: CODE(S): A48.0 - Gas gangrene (11) Diabetic infection of left foot: CODE(S): E11.628 - Type 2 diabetes mellitus with other skin complications; L08.9 - Local infection of the skin and subcutaneous tissue, unspecified (12) 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 bone: CODE(S): L97.524 - 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 bone (13) Cellulitis: CODE(S): L03.90 - Cellulitis, unspecified QUALIFIERS: Site of cellulitis: extremity Site of cellulitis of extremity: lower extremity Laterality: left Qualified Code(s): L03.116 - Cellulitis of left lower limb (14) Hypertension: CODE(S): I10 - Essential (primary) hypertension QUALIFIERS: Hypertension type: primary hypertension Qualified Code(s): I10 - Essential (primary) hypertension PLAN: Plan The patient appears to be tolerating hyperbaric oxygen therapy well, which will be continued as per their medical treatment plan.
[2023-10-24 15:20] LABS: Bedside Glucose 128 mg/dL (74-106)
[2023-10-25 11:23] VITALS: BP 129/76; PULSE 97; RESP 18; TEMP 36.4; BMI 33.9
--- NOTE | 2023-10-25 11:52 | PCM.WC.PN ---
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 History of Wound: 43-year-old male status post left Charcot reconstruction. Denies constitutional symptoms. Wound is improving today. Progress of Wound: The patient underwent his 20th hyperbaric oxygen therapy session today. The patient is scheduled for a total of 30 such sessions. Objective Data Objective Data Vital Signs: Vital Signs Temp Pulse Resp BP O2 Del Method O2 Flow Rate 97.6 F L 97 18 129/76 H Room Air 99 10/25/23 11:23 10/25/23 11:23 10/25/23 11:23 10/25/23 11:23 10/25/23 11:23 10/07/23 00:29 Oxygen Flow Rate (L/min) 99 Oxygen Delivery Method Room Air Weight: 113.398 kg Body Mass Index (BMI) 33.9 Lab / Micro Data Labs: Laboratory Results - last 24 hr 10/24/23 12:48: POC Glucose 154 H 10/24/23 14:56: POC Glucose 128 H Physical Exam Narrative Neurovascular status unchanged Full-thickness wounds to medial ankle, 3 cc purulence drained from the site today. Lateral ankle wound down to the level of bone noted with intact vessel loop closure allowing for partial wound closure, additional 3 cc purulence drained from the site. Pre and postdebridement measurements documented in notes nursing notes. This was debrided down to level of muscle today. No residual abscess noted. New onset redness swelling to plantar midfoot with possible fluctuance and increase in warmth. Concern for deep abscess. No signs of DVT. Const alert and oriented x3 Debridement Note Debridement Note Post-Debridement Measurements and Additional Note: Post-Debridement Measurements/Treatment WC - Nurse 1 - General Ulcer Assessment Start: 10/07/23 08:27 Freq: Status: Active Protocol: GWEN Activity Type Activity Date Activity User E-sign Co-sign Detail Recorded Client Recorded Date Recorded By Document 10/11/23 12:05 RB [id number] 10/11/23 12:09 RB Document 10/18/23 11:08 KW Desktop 10/18/23 11:25 KW Document 10/25/23 11:23 KW Desktop 10/25/23 11:40 KW 10/11/23 10/18/2310/24/24 12:05 11:08 11:23 WC - Today's Visit Information Type of service Follow-up Visit Follow-up Visit Follow-up Visit (Physician/WEAPONS DESIGNER (Physician/WEAPONS DESIGNER (Physician/WEAPONS DESIGNER ) ) ) Arrival Mode Wheelchair Wheelchair Wheelchair Transfer Assistance Manual Accompanied by step father STEP FATHER Patient Identification Verified (Name & Yes Yes Yes ) Patient Requires Transmission-Based No Precautions Finger Stick Blood Sugar(mg/dl) (if 123 indicated): Blood Sugar Stated by Patient Height and Weight Body Mass Index (BMI) 33.9 33.9 33.9 BMI Classification Obese Obese Obese Vital Signs Temperature (97.8 F-99.1 F) 98 F 96.6 F L 97.6 F L Temperature Source Temporal Temporal Temporal Pulse Rate (60-100) 94 85 97 Pulse Location Monitor Monitor Monitor Respiratory Rate (12-18) 18 18 18 Respiratory rate source Observation Observation Observation Oxygen Delivery Method Room Air Room Air Blood Pressure (90/60-120/80) 121/73 H 129/80 H 129/76 H Blood Pressure Mean (mm Hg) 89 96 93 Source Monitor Monitor Monitor Position Sitting Semi-Fowlers Semi-Fowlers Blood Pressure Location Left Arm Left Arm Left Arm History Since Last Visit- (Skip if this is Patient's initial visit) Have you changed medications since your No No No last visit? Any new allergies or adverse reactions No No No Had a fall/change in ADL's that may No No No increase risk of falls Signs or symptoms of abuse and/or No No No neglect since last visit Have you been in the hospital since your No No No last visit? Has dressing in place as prescribed Yes Yes Yes Has compression in place as prescribed Yes Yes Yes Has offloadiing in place as prescribed Yes Yes Yes Experienced any changes in pain level or No No No management Left Footwear No Footwear Slipper Right Footwear Regular Shoe Regular Shoe Pain Scale: 0-10 Numeric Is Patient Pain Free? Yes Yes Yes - Nurse 1 - General Ulcer Measurement Start: 10/07/23 08:27 Freq: Status: Active Protocol: Activity Type Activity Date Activity User E-sign Co-sign Detail Recorded Client Recorded Date Recorded By Document 10/11/23 12:05 RB [id number] 10/11/23 12:09 RB Document 10/18/23 11:08 KW Desktop 10/18/23 11:25 KW Document 10/25/23 11:23 KW Desktop 10/25/23 11:40 KW 10/11/23 10/18/23 10/25/23 12:05 11:08 11:23 Wound Center Nurse 1 8-left lateral inferior foot -Current Size (cm) - Length 0.1 -Current Size (cm) - Width 0.1 -Current Size (cm) - Depth 0.1 -Total Square Cm 0.01 -Exudate Amt None Present -Texture ([place]-wound Skin Appearance) Assessed -Moisture ([place]-wound Skin Appearance) Assessed -Temperature ([place]-wound Skin No Abnormality Appearance) (Pt Warm) -Ulcer Cleansing Soap and Water -Foul Odor after Cleansing No -Anesthetic Used 4% Lidocaine Solution 7. L lateral ankle superior -Combined with other wound No -Current Size (cm) - Length 1 0.4 -Current Size (cm) - Width 0.5 0.2 -Current Size (cm) - Depth 1 0.2 -Total Square Cm 0.5 0.08 -Tunneling No -Undermining/Tunneling No -Circular Undermining No -Exudate Amt Large Small None Present -Exudate Type Serosanguineous Serosanguineous -Wound Margin Thickened & Thickened & Distinct, Rolled Under Rolled Under Outline Attached -Granulation Amt Medium (34-66%) Large (67-100%) Large (67-100%) -Granulation Quality [place] Red -Slough/Fibrin Yes -Necrosis Amt Medium (34-66%) -Necrotic Tissue Type Adherent Slough -Structure Exposed N/A -Texture ([place]-wound Skin Appearance) Assessed, Assessed, Assessed Scarring Localized Edema -Moisture ([place]-wound Skin Appearance) Assessed Assessed Assessed -Color ([place]-wound Skin Appearance) Assessed Assessed Assessed -Temperature ([place]-wound Skin No Abnormality No Abnormality No Abnormality Appearance) (Pt Warm) (Pt Warm) (Pt Warm) -Tenderness on Palpation ([place]-wound No No Skin Appearance) -Ulcer Cleansing Wound Cleanser Soap and Water Soap and Water -Foul Odor after Cleansing No No No -Anesthetic Used 4% Lidocaine 4% Lidocaine 4% Lidocaine Solution Solution Solution 6. L medial ankle -Combined with other wound No -Current Size (cm) - Length 1 0.5 0.8 -Current Size (cm) - Width 0.5 0.2 0.5 -Current Size (cm) - Depth 1 1 0.4 -Total Square Cm 0.5 0.10 0.40 -Tunneling No -Undermining/Tunneling No -Circular Undermining No -Exudate Amt Large Small Medium -Exudate Type Serosanguineous Serosanguineous Serosanguineous -Wound Margin Thickened & Thickened & Distinct, Rolled Under Rolled Under Outline Attached -Granulation Amt Medium (34-66%) Large (67-100%) Large (67-100%) -Granulation Quality [place] Red -Slough/Fibrin Yes -Necrosis Amt Medium (34-66%) -Necrotic Tissue Type Adherent Slough -Structure Exposed N/A -Texture ([place]-wound Skin Appearance) Assessed, Assessed Assessed Scarring -Moisture ([place]-wound Skin Appearance) Assessed Assessed Assessed -Color ([place]-wound Skin Appearance) Assessed Assessed Assessed -Temperature ([place]-wound Skin No Abnormality No Abnormality No Abnormality Appearance) (Pt Warm) (Pt Warm) (Pt Warm) -Tenderness on Palpation ([place]-wound No Skin Appearance) -Ulcer Cleansing Wound Cleanser Soap and Water Soap and Water -Foul Odor after Cleansing No No -Anesthetic Used 5% Lidocaine 4% Lidocaine 4% Lidocaine Gel Solution Solution Left Calf (cm) 35 Left Ankle (cm) 24.5 WC - Nurse 2 - General Ulcer CM Notes Start: 10/07/23 08:27 Freq: Status: Active Protocol: Activity Type Activity Date Activity User E-sign Co-sign Detail Recorded Client Recorded Date Recorded By Document 10/11/23 11:34 [email or web address] 10/11/23 11:52 Document 10/18/23 11:41 [email or web address] 10/18/23 11:45 Document 10/25/23 11:46 [email or web address] 10/25/23 11:52 10/11/23 10/18/23 10/25/23 11:34 11:41 11:46 Wound Center Nurse 2 8-left lateral inferior foot -Time 11:42 11:47 -Correct Patient Yes Yes -Correct Side, Site, Position Yes Yes -Correct Procedure Yes Yes -Procedure Performed Yes Yes -Type of Procedure Debridement Debridement -Clinical Debridement Subcutaneous Subcutaneous -Tissue Removed Subcutaneous Subcutaneous -Post Debridement (cm) - Length 0.3 0.5 -Post Debridement (cm) - Width 0.8 0.2 -Post Debridement (cm) - Depth 0.5 0.2 -Total Square (Post) (cm) 0.24 0.10 -Area of Debridement (cm) - Length 0.3 0.5 -Area of Debridement (cm) - Width 0.8 0.2 -Total Square (Area) (cm) 0.24 0.10 -Tunneling No No -Undermining/Tunneling No No -Circular Undermining No No -Wound/Ulcer Outcome Not Healed Not Healed -Ulcer Cleansing Rinsed/ Rinsed/ Irrigated with Irrigated with Saline Saline -Foul Odor after Cleansing No No -Bioengineered Tissue No No -Bleeding Controlled with Pressure Pressure -Treatment Response Procedure Procedure Tolerated Well Tolerated Well -Offloading No No -Debridement - Subq, 1st 20sq cm No No 7. L lateral ankle superior -Time 11:50 11:41 11:47 -Correct Patient Yes Yes Yes -Correct Side, Site, Position Yes Yes Yes -Correct Procedure Yes Yes Yes -Procedure Performed Yes Yes Yes -Type of Procedure Debridement Debridement Debridement -Clinical Debridement Muscle / Fascia Subcutaneous Subcutaneous -Tissue Removed Muscle Subcutaneous Subcutaneous -Post Debridement (cm) - Length 6.0 0.9 0.1 -Post Debridement (cm) - Width 1.0 0.2 0.1 -Post Debridement (cm) - Depth 1.2 0.4 0.1 -Total Square (Post) (cm) 6.00 0.18 0.01 -Area of Debridement (cm) - Length 6.0 0.9 0.1 -Area of Debridement (cm) - Width 1.0 0.2 0.1 -Total Square (Area) (cm) 6.00 0.18 0.01 -Tunneling No No No -Undermining/Tunneling No No No -Circular Undermining No No No -Wound/Ulcer Outcome Not Healed Not Healed Not Healed -Ulcer Cleansing Rinsed/ Rinsed/ Rinsed/ Irrigated with Irrigated with Irrigated with Saline Saline Saline -Foul Odor after Cleansing No No No -Bioengineered Tissue No No No -Bleeding Controlled with Pressure Pressure Pressure -Treatment Response Procedure Procedure Procedure Tolerated Well Tolerated Well Tolerated Well -Offloading No No Yes -Type of Offloading Camwalker -Assistive Device(s) Wheelchair -Debridement - Subq, 1st 20sq cm Yes No -Debridement - Muscle / Fascia, 1st No 20sq cm 6. L medial ankle -Time 11:51 11:41 11:48 -Correct Patient Yes Yes Yes -Correct Side, Site, Position Yes Yes Yes -Correct Procedure Yes Yes Yes -Procedure Performed Yes Yes Yes -Type of Procedure Debridement Debridement Debridement -Clinical Debridement Muscle / Fascia Subcutaneous Subcutaneous -Tissue Removed Muscle Subcutaneous Subcutaneous -Post Debridement (cm) - Length 1.1 0.9 0.8 -Post Debridement (cm) - Width 0.4 0.5 0.5 -Post Debridement (cm) - Depth 1 1.5 0.4 -Total Square (Post) (cm) 0.44 0.45 0.40 -Area of Debridement (cm) - Length 1.1 0.9 0.8 -Area of Debridement (cm) - Width 0.4 0.5 0.5 -Total Square (Area) (cm) 0.44 0.45 0.40 -Tunneling No No Yes -Tunneling Position (O'clock) 12 -Tunneling Distance (cm) 2.2 -Undermining/Tunneling Yes No No -Undermining/Tunneling Starts (O'clock 2 ) -Undermining/Tunneling Ends (O'clock) 5 -Maximum Distance (cm) 2.0 -Circular Undermining No No No -Wound/Ulcer Outcome Not Healed Not Healed Not Healed -Ulcer Cleansing Rinsed/ Rinsed/ Rinsed/ Irrigated with Irrigated with Irrigated with Saline Saline Saline -Foul Odor after Cleansing No No No -Bioengineered Tissue No No No -Bleeding Controlled with Pressure Pressure Pressure -Treatment Response Procedure Procedure Procedure Tolerated Well Tolerated Well Tolerated Well -Offloading No Yes Yes -Type of Offloading Surgical Shoe Camwalker -Assistive Device(s) Wheelchair -Debridement - Subq, 1st 20sq cm No Yes -Debridement - Muscle / Fascia, 1st Yes 20sq cm Pain Scale: 0-10 Numeric Is Patient Pain Free? Yes Yes Yes WC - Nurse 3 - General Ulcer D/C NN Start: 10/07/23 08:27 Freq: Status: Active Protocol: Activity Type Activity Date Activity User E-sign Co-sign Detail Recorded Client Recorded Date Recorded By Document 10/07/23 10:04 BRIAN [id number] 10/07/23 10:07 JF Document 10/11/23 12:05 RB [id number] 10/11/23 12:09 RB Document 10/18/23 15:40 RB Desktop 10/18/23 15:42 RB 10/07/23 10/11/23 10/18/23 10:04 12:05 15:40 Wound Care Center Nurse 3 8-left lateral inferior foot -Other Dressing dakin moistened gauze -Primary Dressing Covered/Secured with Dry Gauze,Dry Gauze & Roll Gauze,Secured with Tape 7. L lateral ankle superior -Ulcer Cleansing Rinsed/ Irrigated with Saline -Other Dressing DAKINS dakins MOISTENED GAUZE moistened gauze -Primary Dressing Covered/Secured with Dry Gauze & Dry Gauze,Dry Roll Gauze, Gauze & Roll Secured with Gauze,Secured Tape with Tape 6. L medial ankle -Other Dressing [id number] dakins MOISTENED GAUZE moistened gauze -Primary Dressing Covered/Secured with Dry Gauze & Dry Gauze,Dry Roll Gauze, Gauze & Roll Secured with Gauze,Secured Tape with Tape Left -Tubular Bandage Double Layer -Size of Tubigrip Used Size E -Size E ($) 2 Treatment Response Procedure Procedure Tolerated Well Tolerated Well Vital Signs Temperature (97.8 F-99.1 F) 98 F Temperature Source Temporal Pulse Rate (60-100) 94 Pulse Location Monitor Respiratory Rate (12-18) 18 Respiratory rate source Observation Blood Pressure (90/60-120/80) 121/73 H Blood Pressure Mean (mm Hg) 89 Source Monitor Position Sitting Blood Pressure Location Left Arm Pain Scale: 0-10 Numeric Is Patient Pain Free? Yes Yes Yes WC - Visit Discharge Discharge Condition Stable Stable Stable Ambulatory Status Wheelchair Wheelchair Wheelchair Transportation Private Auto Private Auto Private Auto Accompanied by PARENTS Medication Reconcilliation completed & No No provided to patient/care provider Clinical Summary of Care Provided Yes Yes Notes: Patient tolerated HBO treatment without difficulty. Heading to the hospital to get his xray ordered by Dr Perkins. Assessment/Plan Assessment/Plan (1) Osteomyelitis of ankle, left, acute: CODE(S): M86.172 - Other acute osteomyelitis, left ankle and foot PLAN: Exam performed Patient on IV meropenem via PICC line per infectious disease for enterococcal and pseudomonal infection left lower extremity with bone involvement will transition to p.o. antibiotics per infectious disease. Cultures from new onset abscess last week negative for any bacterial growth. wound significantly improved Today left lower extremity wound to lateral ankle was debrided down to and including level of muscle excisionally using a 5 mm dermal curette without incident. No anesthesia due to neuropathy. Hemostasis obtained with light compression. Patient tolerated procedure well. Pre and postdebridement measurements documented nursing notes. Change dressing daily hydrogel with DSD and Tubigrip. Patient follows up weekly Patient nonweightbearing left lower extremity Patient receiving HBO therapy Blood sugar well-controlled Concern for new onset deep abscess with redness swelling to left forefoot. MRI ordered, this is scheduled for 11/01/2023. Follow-up 1 week (2) Charcot foot due to diabetes mellitus: CODE(S): E11.610 - 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 arthropathy (3) Abscess of bursa, left ankle and foot: CODE(S): M71.072 - Abscess of bursa, left ankle and foot (4) Cellulitis of left lower limb: CODE(S): L03.116 - Cellulitis of left lower limb (5) Non-pressure chronic ulcer of left 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: CODE(S): L97.322 - Non-pressure chronic ulcer of left 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 (6) Type 2 diabetes mellitus with diabetic polyneuropathy: CODE(S): E11.42 - Type 2 diabetes mellitus with diabetic polyneuropathy QUALIFIERS: Diabetes mellitus termite technician insulin use: without [facility] use Qualified Code(s): E11.42 - Type 2 diabetes mellitus with diabetic polyneuropathy
[2023-10-25 12:39] LABS: Bedside Glucose 140 mg/dL (74-106)
--- NOTE | 2023-10-25 12:54 | PCM.HBO.PN ---
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 History of Wound: 43-year-old male status post left Charcot reconstruction. Denies constitutional symptoms. Wound is improving today. Progress of Wound: The patient underwent his 20th hyperbaric oxygen therapy session today. The patient is scheduled for a total of 30 such sessions. Subjective Subjective The patient underwent his 23rd hyperbaric oxygen therapy session today. The patient is scheduled for a total of 30 such sessions. Tolerance of hyperbaric oxygen therapy: Hyperbaric oxygen therapy was provided as per the facility's protocol. Hyperbaric oxygen therapy was undertaken at 2 krzysztof and 100% oxygen for 90 minutes without air breaks. The patient tolerated hyperbaric oxygen therapy well, without complaints or complications. Upon emergence from the hyperbaric chamber, the patient's vital signs remained stable. Blood sugar levels were monitored both before and after hyperbaric oxygen therapy, and found to be satisfactory. Objective Data Objective Data Vital Signs: Vital Signs Temp Pulse Resp BP O2 Del Method O2 Flow Rate 97.6 F L 97 18 129/76 H Room Air 99 10/25/23 11:23 10/25/23 11:23 10/25/23 11:23 10/25/23 11:23 10/25/23 11:23 10/07/23 00:29 Oxygen Flow Rate (L/min) 99 Oxygen Delivery Method Room Air Weight: 250 lb Body Mass Index (BMI) 33.9 Lab / Micro Data Labs: Laboratory Results - last 24 hr 10/24/23 12:48: POC Glucose 154 H 10/24/23 14:56: POC Glucose 128 H 10/25/23 12:21: POC Glucose 140 H Exam Physical Exam Const alert, oriented x3 and no apparent distress HEENT normocephalic Tympanic Membrane: TM's normal bilaterally Resp normal respiratory effort Effort and Inspection: able to speak in complete sentences Auscultation: clear to auscultation bilaterally Cardio regular rate and regular rhythm Psych mental status grossly normal, thought process normal, cooperative, affect normal and speech normal Nursing Assessment and Debridement Post-Debridement Measurements and Additional Note: Post-Debridement Measurements/Treatment WC - Nurse 1 - General Ulcer Assessment Start: 10/07/23 08:27 Freq: Status: Active Protocol: GWEN Activity Type Activity Date Activity User E-sign Co-sign Detail Recorded Client Recorded Date Recorded By Document 10/25/23 11:23 [email or web address] 10/25/23 11:40 Panorama Education 10/25/23 11:23 - Today's Visit Information Type of service Follow-up Visit (Physician/[employer] AGENCY MANAGER ) Arrival Mode Wheelchair Accompanied by STEP FATHER Patient Identification Verified (Name & Yes ) Height and Weight Body Mass Index (BMI) 33.9 BMI Classification Obese Vital Signs Temperature (97.8 F-99.1 F) 97.6 F L Temperature Source Temporal Pulse Rate (60-100) 97 Pulse Location Monitor Respiratory Rate (12-18) 18 Respiratory rate source Observation Oxygen Delivery Method Room Air Blood Pressure (90/60-120/80) 129/76 H Blood Pressure Mean (mm Hg) 93 Source Monitor Position Semi-Fowlers Blood Pressure Location Left Arm History Since Last Visit- (Skip if this is Patient's initial visit) Have you changed medications since your No last visit? Any new allergies or adverse reactions No Had a fall/change in ADL's that may No increase risk of falls Signs or symptoms of abuse and/or No neglect since last visit Have you been in the hospital since your No last visit? Has dressing in place as prescribed Yes Has compression in place as prescribed Yes Has offloadiing in place as prescribed Yes Experienced any changes in pain level or No management Left Footwear Slipper Right Footwear Regular Shoe Pain Scale: 0-10 Numeric Is Patient Pain Free? Yes - Nurse 1 - General Ulcer Measurement Start: 10/07/23 08:27 Freq: Status: Active Protocol: Activity Type Activity Date Activity User E-sign Co-sign Detail Recorded Client Recorded Date Recorded By Document 10/25/23 11:23 [email or web address] 10/25/23 11:40 Panorama Education 10/25/23 11:23 Wound Center Nurse 1 8-left lateral inferior foot -Current Size (cm) - Length 0.1 -Current Size (cm) - Width 0.1 -Current Size (cm) - Depth 0.1 -Total Square Cm 0.01 -Exudate Amt None Present -Texture ([place]-wound Skin Appearance) Assessed -Moisture ([place]-wound Skin Appearance) Assessed -Temperature ([place]-wound Skin No Abnormality Appearance) (Pt Warm) -Ulcer Cleansing Soap and Water -Foul Odor after Cleansing No -Anesthetic Used 4% Lidocaine Solution 7. L lateral ankle superior -Current Size (cm) - Length 0.4 -Current Size (cm) - Width 0.2 -Current Size (cm) - Depth 0.2 -Total Square Cm 0.08 -Exudate Amt None Present -Wound Margin Distinct, Outline Attached -Granulation Amt Large (67-100%) -Granulation Quality Red -Texture ([place]-wound Skin Appearance) Assessed -Moisture ([place]-wound Skin Appearance) Assessed -Color ([place]-wound Skin Appearance) Assessed -Temperature ([place]-wound Skin No Abnormality Appearance) (Pt Warm) -Ulcer Cleansing Soap and Water -Foul Odor after Cleansing No -Anesthetic Used 4% Lidocaine Solution 6. L medial ankle -Current Size (cm) - Length 0.8 -Current Size (cm) - Width 0.5 -Current Size (cm) - Depth 0.4 -Total Square Cm 0.40 -Exudate Amt Medium -Exudate Type Serosanguineous -Wound Margin Distinct, Outline Attached -Granulation Amt Large (67-100%) -Granulation Quality Red -Texture ([place]-wound Skin Appearance) Assessed -Moisture ([place]-wound Skin Appearance) Assessed -Color ([place]-wound Skin Appearance) Assessed -Temperature ([place]-wound Skin No Abnormality Appearance) (Pt Warm) -Ulcer Cleansing Soap and Water -Foul Odor after Cleansing No -Anesthetic Used 4% Lidocaine Solution WC - Nurse 2 - General Ulcer CM Notes Start: 10/07/23 08:27 Freq: Status: Active Protocol: Activity Type Activity Date Activity User E-sign Co-sign Detail Recorded Client Recorded Date Recorded By Document 10/25/23 11:46 Laptop 10/25/23 11:52 10/25/23 11:46 Wound Center Nurse 2 8-left lateral inferior foot -Time 11:47 -Correct Patient Yes -Correct Side, Site, Position Yes -Correct Procedure Yes -Procedure Performed Yes -Type of Procedure Debridement -Clinical Debridement Subcutaneous -Tissue Removed Subcutaneous -Post Debridement (cm) - Length 0.5 -Post Debridement (cm) - Width 0.2 -Post Debridement (cm) - Depth 0.2 -Total Square (Post) (cm) 0.10 -Area of Debridement (cm) - Length 0.5 -Area of Debridement (cm) - Width 0.2 -Total Square (Area) (cm) 0.10 -Tunneling No -Undermining/Tunneling No -Circular Undermining No -Wound/Ulcer Outcome Not Healed -Ulcer Cleansing Rinsed/ Irrigated with Saline -Foul Odor after Cleansing No -Bioengineered Tissue No -Bleeding Controlled with Pressure -Treatment Response Procedure Tolerated Well -Offloading No -Debridement - Subq, 1st 20sq cm No 7. L lateral ankle superior -Time 11:47 -Correct Patient Yes -Correct Side, Site, Position Yes -Correct Procedure Yes -Procedure Performed Yes -Type of Procedure Debridement -Clinical Debridement Subcutaneous -Tissue Removed Subcutaneous -Post Debridement (cm) - Length 0.1 -Post Debridement (cm) - Width 0.1 -Post Debridement (cm) - Depth 0.1 -Total Square (Post) (cm) 0.01 -Area of Debridement (cm) - Length 0.1 -Area of Debridement (cm) - Width 0.1 -Total Square (Area) (cm) 0.01 -Tunneling No -Undermining/Tunneling No -Circular Undermining No -Wound/Ulcer Outcome Not Healed -Ulcer Cleansing Rinsed/ Irrigated with Saline -Foul Odor after Cleansing No -Bioengineered Tissue No -Bleeding Controlled with Pressure -Treatment Response Procedure Tolerated Well -Offloading Yes -Type of Offloading Camwalker -Debridement - Subq, 1st 20sq cm No 6. L medial ankle -Time 11:48 -Correct Patient Yes -Correct Side, Site, Position Yes -Correct Procedure Yes -Procedure Performed Yes -Type of Procedure Debridement -Clinical Debridement Subcutaneous -Tissue Removed Subcutaneous -Post Debridement (cm) - Length 0.8 -Post Debridement (cm) - Width 0.5 -Post Debridement (cm) - Depth 0.4 -Total Square (Post) (cm) 0.40 -Area of Debridement (cm) - Length 0.8 -Area of Debridement (cm) - Width 0.5 -Total Square (Area) (cm) 0.40 -Tunneling Yes -Tunneling Position (O'clock) 12 -Tunneling Distance (cm) 2.2 -Undermining/Tunneling No -Circular Undermining No -Wound/Ulcer Outcome Not Healed -Ulcer Cleansing Rinsed/ Irrigated with Saline -Foul Odor after Cleansing No -Bioengineered Tissue No -Bleeding Controlled with Pressure -Treatment Response Procedure Tolerated Well -Offloading Yes -Type of Offloading Camwalker -Debridement - Subq, 1st 20sq cm Yes Pain Scale: 0-10 Numeric Is Patient Pain Free? Yes - Nurse 3 - General Ulcer D/C NN Start: 10/07/23 08:27 Freq: Status: Active Protocol: Activity Type Activity Date Activity User E-sign Co-sign Detail Recorded Client Recorded Date Recorded By Document 10/25/23 12:20 RB Desktop 10/25/23 12:21 RB 10/25/23 12:20 Wound Care Center Nurse 3 8-left lateral inferior foot -Ulcer Cleansing Rinsed/ Irrigated with Saline -Primary Dressing Applied C Hydrogel ($) -Primary Dressing Covered/Secured with Dry Gauze,Dry Gauze & Roll Gauze,Secured with Tape 7. L lateral ankle superior -Other Dressing hydrogel -Primary Dressing Covered/Secured with Dry Gauze & Roll Gauze, Secured with Tape 6. L medial ankle -Other Dressing hydrogel -Primary Dressing Covered/Secured with Dry Gauze,Dry Gauze & Roll Gauze,Secured with Tape Treatment Response Procedure Tolerated Well Pain Scale: 0-10 Numeric Is Patient Pain Free? Yes WC - Visit Discharge Discharge Condition Stable Ambulatory Status Wheelchair Transportation Private Auto Medication Reconcilliation completed & No provided to patient/care provider Clinical Summary of Care Provided Yes Notes: will apply martha wrap after HBO treatment Assessment/Plan Assessment/Plan (1) Osteomyelitis of ankle or foot, left, acute: CODE(S): M86.172 - Other acute osteomyelitis, left ankle and foot (2) Osteomyelitis of ankle, left, acute: CODE(S): M86.172 - Other acute osteomyelitis, left ankle and foot (3) Abscess of bursa, left ankle and foot: CODE(S): M71.072 - Abscess of bursa, left ankle and foot (4) Cellulitis of left lower limb: CODE(S): L03.116 - Cellulitis of left lower limb (5) Charcot foot due to diabetes mellitus: CODE(S): E11.610 - 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 arthropathy (6) Non-pressure chronic ulcer of left 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: CODE(S): L97.322 - Non-pressure chronic ulcer of left 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 (7) Other acute postprocedural pain: CODE(S): G89.18 - Other acute postprocedural pain (8) Type 2 diabetes mellitus with diabetic polyneuropathy: CODE(S): E11.42 - Type 2 diabetes mellitus with diabetic polyneuropathy QUALIFIERS: Diabetes mellitus supervisor intermediates insulin use: without custodial use Qualified Code(s): E11.42 - Type 2 diabetes mellitus with diabetic polyneuropathy (9) 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 muscle: CODE(S): L97.523 - 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 muscle (10) Gas gangrene of foot: CODE(S): A48.0 - Gas gangrene (11) Diabetic infection of left foot: CODE(S): E11.628 - Type 2 diabetes mellitus with other skin complications; L08.9 - Local infection of the skin and subcutaneous tissue, unspecified (12) 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 bone: CODE(S): L97.524 - 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 bone (13) Cellulitis: CODE(S): L03.90 - Cellulitis, unspecified QUALIFIERS: Site of cellulitis: extremity Site of cellulitis of extremity: lower extremity Laterality: left Qualified Code(s): L03.116 - Cellulitis of left lower limb (14) Hypertension: CODE(S): I10 - Essential (primary) hypertension QUALIFIERS: Hypertension type: primary hypertension Qualified Code(s): I10 - Essential (primary) hypertension PLAN: Plan The patient appears to be tolerating hyperbaric oxygen therapy well, which will be continued as per their medical treatment plan.
[2023-10-25 12:59] VITALS: BP 118/74; BP 132/82; PULSE 86; RESP 18; TEMP 35.8; TEMP 36
[2023-10-25 15:05] LABS: Bedside Glucose 118 mg/dL (74-106)
--- NOTE | 2023-10-26 13:05 | PCM.HBO.PN ---
History of Present Illness Date of Service: 10/26/23 Chief Complaint: Diabetic left foot infection with gas gangrene and osteomyelitis; Li grade 3 diabetic foot infection. History of Wound: 43-year-old male status post left Charcot reconstruction. Denies constitutional symptoms. Wound is improving today. Subjective Subjective The patient underwent his 24th hyperbaric oxygen therapy session today. The patient is scheduled for a total of 30 such sessions. Tolerance of hyperbaric oxygen therapy: Hyperbaric oxygen therapy was provided as per the facility's protocol. Hyperbaric oxygen therapy was undertaken at 2 krzysztof and 100% oxygen for 90 minutes without air breaks. The patient tolerated hyperbaric oxygen therapy well, without complaints or complications. Upon emergence from the hyperbaric chamber, the patient's vital signs remained stable. Blood sugar levels were monitored both before and after hyperbaric oxygen therapy, and found to be satisfactory. Objective Data Objective Data Vital Signs: Vital Signs Temp Pulse Resp BP O2 Del Method O2 Flow Rate 96.5 F L 86 18 132/82 H Room Air 99 10/25/23 12:59 10/25/23 12:59 10/25/23 12:59 10/25/23 12:59 10/25/23 11:23 10/07/23 00:29 Oxygen Flow Rate (L/min) 99 Oxygen Delivery Method Room Air Weight: 250 lb Body Mass Index (BMI) 33.9 Lab / Micro Data Labs: Laboratory Results - last 24 hr 10/25/23 14:39: POC Glucose 118 H Exam Physical Exam Const alert, oriented x3 and no apparent distress HEENT normocephalic Tympanic Membrane: TM's normal bilaterally Resp normal respiratory effort Effort and Inspection: able to speak in complete sentences Auscultation: clear to auscultation bilaterally Cardio regular rate and regular rhythm Psych mental status grossly normal, thought process normal, cooperative, affect normal and speech normal Nursing Assessment and Debridement Post-Debridement Measurements and Additional Note: Post-Debridement Measurements/Treatment - Nurse 1 - General Ulcer Assessment Start: 10/07/23 08:27 Freq: Status: Active Protocol: [email or web address].BLAKE Activity Type Activity Date Activity User E-sign Co-sign Detail Recorded Client Recorded Date Recorded By Document 10/25/23 11:23 KW Desktop 10/25/23 11:40 KW 10/25/23 11:23 WC - Today's Visit Information Type of service Follow-up Visit (Physician/STOCK GRADER ) Arrival Mode Wheelchair Accompanied by STEP FATHER Patient Identification Verified (Name & Yes ) Height and Weight Body Mass Index (BMI) 33.9 BMI Classification Obese Vital Signs Temperature (97.8 F-99.1 F) 97.6 F L Temperature Source Temporal Pulse Rate (60-100) 97 Pulse Location Monitor Respiratory Rate (12-18) 18 Respiratory rate source Observation Oxygen Delivery Method Room Air Blood Pressure (90/60-120/80) 129/76 H Blood Pressure Mean (mm Hg) 93 Source Monitor Position Semi-Fowlers Blood Pressure Location Left Arm History Since Last Visit- (Skip if this is Patient's initial visit) Have you changed medications since your No last visit? Any new allergies or adverse reactions No Had a fall/change in ADL's that may No increase risk of falls Signs or symptoms of abuse and/or No neglect since last visit Have you been in the hospital since your No last visit? Has dressing in place as prescribed Yes Has compression in place as prescribed Yes Has offloadiing in place as prescribed Yes Experienced any changes in pain level or No management Left Footwear Slipper Right Footwear Regular Shoe Pain Scale: 0-10 Numeric Is Patient Pain Free? Yes - Nurse 1 - General Ulcer Measurement Start: 10/07/23 08:27 Freq: Status: Active Protocol: Activity Type Activity Date Activity User E-sign Co-sign Detail Recorded Client Recorded Date Recorded By Document 10/25/23 11:23 KW Desktop 10/25/23 11:40 KW 10/25/23 11:23 Wound Center Nurse 1 8-left lateral inferior foot -Current Size (cm) - Length 0.1 -Current Size (cm) - Width 0.1 -Current Size (cm) - Depth 0.1 -Total Square Cm 0.01 -Exudate Amt None Present -Texture ([place]-wound Skin Appearance) Assessed -Moisture ([place]-wound Skin Appearance) Assessed -Temperature ([place]-wound Skin No Abnormality Appearance) (Pt Warm) -Ulcer Cleansing Soap and Water -Foul Odor after Cleansing No -Anesthetic Used 4% Lidocaine Solution 7. L lateral ankle superior -Current Size (cm) - Length 0.4 -Current Size (cm) - Width 0.2 -Current Size (cm) - Depth 0.2 -Total Square Cm 0.08 -Exudate Amt None Present -Wound Margin Distinct, Outline Attached -Granulation Amt Large (67-100%) -Granulation Quality Red -Texture ([place]-wound Skin Appearance) Assessed -Moisture ([place]-wound Skin Appearance) Assessed -Color ([place]-wound Skin Appearance) Assessed -Temperature ([place]-wound Skin No Abnormality Appearance) (Pt Warm) -Ulcer Cleansing Soap and Water -Foul Odor after Cleansing No -Anesthetic Used 4% Lidocaine Solution 6. L medial ankle -Current Size (cm) - Length 0.8 -Current Size (cm) - Width 0.5 -Current Size (cm) - Depth 0.4 -Total Square Cm 0.40 -Exudate Amt Medium -Exudate Type Serosanguineous -Wound Margin Distinct, Outline Attached -Granulation Amt Large (67-100%) -Granulation Quality Red -Texture ([place]-wound Skin Appearance) Assessed -Moisture ([place]-wound Skin Appearance) Assessed -Color ([place]-wound Skin Appearance) Assessed -Temperature ([place]-wound Skin No Abnormality Appearance) (Pt Warm) -Ulcer Cleansing Soap and Water -Foul Odor after Cleansing No -Anesthetic Used 4% Lidocaine Solution WC - Nurse 2 - General Ulcer CM Notes Start: 10/07/23 08:27 Freq: Status: Active Protocol: Activity Type Activity Date Activity User E-sign Co-sign Detail Recorded Client Recorded Date Recorded By Document 10/25/23 11:46 Laptop 10/25/23 11:52 10/25/23 11:46 Wound Center Nurse 2 8-left lateral inferior foot -Time 11:47 -Correct Patient Yes -Correct Side, Site, Position Yes -Correct Procedure Yes -Procedure Performed Yes -Type of Procedure Debridement -Clinical Debridement Subcutaneous -Tissue Removed Subcutaneous -Post Debridement (cm) - Length 0.5 -Post Debridement (cm) - Width 0.2 -Post Debridement (cm) - Depth 0.2 -Total Square (Post) (cm) 0.10 -Area of Debridement (cm) - Length 0.5 -Area of Debridement (cm) - Width 0.2 -Total Square (Area) (cm) 0.10 -Tunneling No -Undermining/Tunneling No -Circular Undermining No -Wound/Ulcer Outcome Not Healed -Ulcer Cleansing Rinsed/ Irrigated with Saline -Foul Odor after Cleansing No -Bioengineered Tissue No -Bleeding Controlled with Pressure -Treatment Response Procedure Tolerated Well -Offloading No -Debridement - Subq, 1st 20sq cm No 7. L lateral ankle superior -Time 11:47 -Correct Patient Yes -Correct Side, Site, Position Yes -Correct Procedure Yes -Procedure Performed Yes -Type of Procedure Debridement -Clinical Debridement Subcutaneous -Tissue Removed Subcutaneous -Post Debridement (cm) - Length 0.1 -Post Debridement (cm) - Width 0.1 -Post Debridement (cm) - Depth 0.1 -Total Square (Post) (cm) 0.01 -Area of Debridement (cm) - Length 0.1 -Area of Debridement (cm) - Width 0.1 -Total Square (Area) (cm) 0.01 -Tunneling No -Undermining/Tunneling No -Circular Undermining No -Wound/Ulcer Outcome Not Healed -Ulcer Cleansing Rinsed/ Irrigated with Saline -Foul Odor after Cleansing No -Bioengineered Tissue No -Bleeding Controlled with Pressure -Treatment Response Procedure Tolerated Well -Offloading Yes -Type of Offloading Camwalker -Debridement - Subq, 20sq cm No 6. L medial ankle -Time 11:48 -Correct Patient Yes -Correct Side, Site, Position Yes -Correct Procedure Yes -Procedure Performed Yes -Type of Procedure Debridement -Clinical Debridement Subcutaneous -Tissue Removed Subcutaneous -Post Debridement (cm) - Length 0.8 -Post Debridement (cm) - Width 0.5 -Post Debridement (cm) - Depth 0.4 -Total Square (Post) (cm) 0.40 -Area of Debridement (cm) - Length 0.8 -Area of Debridement (cm) - Width 0.5 -Total Square (Area) (cm) 0.40 -Tunneling Yes -Tunneling Position (O'clock) 12 -Tunneling Distance (cm) 2.2 -Undermining/Tunneling No -Circular Undermining No -Wound/Ulcer Outcome Not Healed -Ulcer Cleansing Rinsed/ Irrigated with Saline -Foul Odor after Cleansing No -Bioengineered Tissue No -Bleeding Controlled with Pressure -Treatment Response Procedure Tolerated Well -Offloading Yes -Type of Offloading Camwalker -Debridement - Subq, 1st 20sq cm Yes Pain Scale: 0-10 Numeric Is Patient Pain Free? Yes WC - Nurse 3 - General Ulcer D/C NN Start: 10/07/23 08:27 Freq: Status: Active Protocol: Activity Type Activity Date Activity User E-sign Co-sign Detail Recorded Client Recorded Date Recorded By Document 10/25/23 12:20 RB Desktop 10/25/23 12:21 RB 10/25/23 12:20 Wound Care Center Nurse 3 8-left lateral inferior foot -Ulcer Cleansing Rinsed/ Irrigated with Saline -Primary Dressing Applied C Hydrogel ($) -Primary Dressing Covered/Secured with Dry Gauze,Dry Gauze & Roll Gauze,Secured with Tape 7. L lateral ankle superior -Other Dressing hydrogel -Primary Dressing Covered/Secured with Dry Gauze & Roll Gauze, Secured with Tape 6. L medial ankle -Other Dressing hydrogel -Primary Dressing Covered/Secured with Dry Gauze,Dry Gauze & Roll Gauze,Secured with Tape Treatment Response Procedure Tolerated Well Pain Scale: 0-10 Numeric Is Patient Pain Free? Yes WC - Visit Discharge Discharge Condition Stable Ambulatory Status Wheelchair Transportation Private Auto Medication Reconcilliation completed & No provided to patient/care provider Clinical Summary of Care Provided Yes Notes: will apply martha wrap after HBO treatment Assessment/Plan Assessment/Plan (1) Osteomyelitis of ankle or foot, left, acute: CODE(S): M86.172 - Other acute osteomyelitis, left ankle and foot (2) Osteomyelitis of ankle, left, acute: CODE(S): M86.172 - Other acute osteomyelitis, left ankle and foot (3) Abscess of bursa, left ankle and foot: CODE(S): M71.072 - Abscess of bursa, left ankle and foot (4) Cellulitis of left lower limb: CODE(S): L03.116 - Cellulitis of left lower limb (5) Charcot foot due to diabetes mellitus: CODE(S): E11.610 - 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 arthropathy (6) Non-pressure chronic ulcer of left 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: CODE(S): L97.322 - Non-pressure chronic ulcer of left 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 (7) Other acute postprocedural pain: CODE(S): G89.18 - Other acute postprocedural pain (8) Type 2 diabetes mellitus with diabetic polyneuropathy: CODE(S): E11.42 - Type 2 diabetes mellitus with diabetic polyneuropathy QUALIFIERS: Diabetes mellitus snf insulin use: without meterman use Qualified Code(s): E11.42 - Type 2 diabetes mellitus with diabetic polyneuropathy (9) 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 muscle: CODE(S): L97.523 - 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 muscle (10) Gas gangrene of foot: CODE(S): A48.0 - Gas gangrene (11) Diabetic infection of left foot: CODE(S): E11.628 - Type 2 diabetes mellitus with other skin complications; L08.9 - Local infection of the skin and subcutaneous tissue, unspecified (12) 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 bone: CODE(S): L97.524 - 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 bone (13) Cellulitis: CODE(S): L03.90 - Cellulitis, unspecified QUALIFIERS: Site of cellulitis: extremity Site of cellulitis of extremity: lower extremity Laterality: left Qualified Code(s): L03.116 - Cellulitis of left lower limb (14) Hypertension: CODE(S): I10 - Essential (primary) hypertension QUALIFIERS: Hypertension type: primary hypertension Qualified Code(s): I10 - Essential (primary) hypertension PLAN: Plan The patient appears to be tolerating hyperbaric oxygen therapy well, which will be continued as per their medical treatment plan.
[2023-10-26 13:07] VITALS: BP 125/77; BP 127/80; PULSE 86; PULSE 89; RESP 18; TEMP 36; TEMP 36.4
[2023-10-26 13:12] LABS: Bedside Glucose 178 mg/dL (74-106)
[2023-10-26 15:17] LABS: Bedside Glucose 211 mg/dL (74-106)
--- NOTE | 2023-10-27 13:14 | HBO.PN.PCM_ITS ---
History of Present Illness Date of Service: 10/27/23 Chief Complaint: Diabetic left foot infection with gas gangrene and osteom yelitis; Li grade 3 diabetic foot infection. History of Wound: 43-year-old male status post left Charcot reconstruction. Denies constitutional symptoms. Wound is improving today. Subjective Subjective The patient underwent his 25th hyperbaric oxygen therapy session today. The patient is scheduled for a total of 30 such sessions. Tolerance of hyperbaric oxygen therapy: Hyperbaric oxygen therapy was provided as per the facility's protocol. Hyperbaric oxygen therapy was undertaken at 2 krzysztof and 100% oxygen for 90 minutes without air breaks. The patient tolerated hyperbaric oxygen therapy well, without complaints or complications. Upon emergence from the hyperbaric chamber, the patient's vital signs remained stable. Blood sugar levels were monitored both before and after hyperbaric oxygen therapy, and found to be satisfactory. Objective Data Objective Data Vital Signs: Vital Signs Temp Pulse Resp BP O2 Del Method O2 Flow Rate 97.6 F L 86 18 125/77 H Room Air 99 10/26/23 13:07 10/26/23 13:07 10/26/23 13:07 10/26/23 13:07 10/25/23 11:23 10/07/23 00:29 Oxygen Flow Rate (L/min) 99 Oxygen Delivery Method Room Air Weight: 250 lb Body Mass Index (BMI) 33.9 Lab / Micro Data Labs: Laboratory Results - last 24 hr 10/26/23 14:57: POC Glucose 211 H Exam Physical Exam Const alert, oriented x3 and no apparent distress HEENT normocephalic Tympanic Membrane: TM's normal bilaterally Resp normal respiratory effort Effort and Inspection: able to speak in complete sentences Auscultation: clear to auscultation bilaterally Cardio regular rate and regular rhythm Psych mental status grossly normal, thought process normal, cooperative, affect normal and speech normal Nursing Assessment and Debridement Post-Debridement Measurements and Additional Note: Post-Debridement Measurements/Treatment - Nurse 1 - General Ulcer Assessment Start: 10/07/23 08:27 Freq: Status: Active Protocol: [email or web address] Activity Type Activity Date Activity User E-sign Co-sign Detail Recorded Client Recorded Date Recorded By Document 10/25/23 11:23 KW Desktop 10/25/23 11:40 KW 10/25/23 11:23 - Today's Visit Information Type of service Follow-up Visit (Physician/[employer] ) Arrival Mode Wheelchair Accompanied by STEP FATHER Patient Identification Verified (Name & Yes ) Height and Weight Body Mass Index (BMI) 33.9 BMI Classification Obese Vital Signs Temperature (97.8 F-99.1 F) 97.6 F L Temperature Source Temporal Pulse Rate (60-100) 97 Pulse Location Monitor Respiratory Rate (12-18) 18 Respiratory rate source Observation Oxygen Delivery Method Room Air Blood Pressure (90/60-120/80) 129/76 H Blood Pressure Mean (mm Hg) 93 Source Monitor Position Semi-Fowlers Blood Pressure Location Left Arm History Since Last Visit- (Skip if this is Patient's initial visit) Have you changed medications since your No last visit? Any new allergies or adverse reactions No Had a fall/change in ADL's that may No increase risk of falls Signs or symptoms of abuse and/or No neglect since last visit Have you been in the hospital since your No last visit? Has dressing in place as prescribed Yes Has compression in place as prescribed Yes Has offloadiing in place as prescribed Yes Experienced any changes in pain level or No management Left Footwear Slipper Right Footwear Regular Shoe Pain Scale: 0-10 Numeric Is Patient Pain Free? Yes - Nurse 1 - General Ulcer Measurement Start: 10/07/23 08:27 Freq: Status: Active Protocol: Activity Type Activity Date Activity User E-sign Co-sign Detail Recorded Client Recorded Date Recorded By Document 10/25/23 11:23 KW Desktop 10/25/23 11:40 KW 10/25/23 11:23 Wound Center Nurse 1 8-left lateral inferior foot -Current Size (cm) - Length 0.1 -Current Size (cm) - Width 0.1 -Current Size (cm) - Depth 0.1 -Total Square Cm 0.01 -Exudate Amt None Present -Texture ([place]-wound Skin Appearance) Assessed -Moisture ([place]-wound Skin Appearance) Assessed -Temperature ([place]-wound Skin No Abnormality Appearance) (Pt Warm) -Ulcer Cleansing Soap and Water -Foul Odor after Cleansing No -Anesthetic Used 4% Lidocaine Solution 7. L lateral ankle superior -Current Size (cm) - Length 0.4 -Current Size (cm) - Width 0.2 -Current Size (cm) - Depth 0.2 -Total Square Cm 0.08 -Exudate Amt None Present -Wound Margin Distinct, Outline Attached -Granulation Amt Large (67-100%) -Granulation Quality Red -Texture ([place]-wound Skin Appearance) Assessed -Moisture ([place]-wound Skin Appearance) Assessed -Color ([place]-wound Skin Appearance) Assessed -Temperature ([place]-wound Skin No Abnormality Appearance) (Pt Warm) -Ulcer Cleansing Soap and Water -Foul Odor after Cleansing No -Anesthetic Used 4% Lidocaine Solution 6. L medial ankle -Current Size (cm) - Length 0.8 -Current Size (cm) - Width 0.5 -Current Size (cm) - Depth 0.4 -Total Square Cm 0.40 -Exudate Amt Medium -Exudate Type Serosanguineous -Wound Margin Distinct, Outline Attached -Granulation Amt Large (67-100%) -Granulation Quality Red -Texture ([place]-wound Skin Appearance) Assessed -Moisture ([place]-wound Skin Appearance) Assessed -Color ([place]-wound Skin Appearance) Assessed -Temperature ([place]-wound Skin No Abnormality Appearance) (Pt Warm) -Ulcer Cleansing Soap and Water -Foul Odor after Cleansing No -Anesthetic Used 4% Lidocaine Solution WC - Nurse 2 - General Ulcer CM Notes Start: 10/07/23 08:27 Freq: Status: Active Protocol: Activity Type Activity Date Activity User E-sign Co-sign Detail Recorded Client Recorded Date Recorded By Document 10/25/23 11:46 Laptop 10/25/23 11:52 10/25/23 11:46 Wound Center Nurse 2 8-left lateral inferior foot -Time 11:47 -Correct Patient Yes -Correct Side, Site, Position Yes -Correct Procedure Yes -Procedure Performed Yes -Type of Procedure Debridement -Clinical Debridement Subcutaneous -Tissue Removed Subcutaneous -Post Debridement (cm) - Length 0.5 -Post Debridement (cm) - Width 0.2 -Post Debridement (cm) - Depth 0.2 -Total Square (Post) (cm) 0.10 -Area of Debridement (cm) - Length 0.5 -Area of Debridement (cm) - Width 0.2 -Total Square (Area) (cm) 0.10 -Tunneling No -Undermining/Tunneling No -Circular Undermining No -Wound/Ulcer Outcome Not Healed -Ulcer Cleansing Rinsed/ Irrigated with Saline -Foul Odor after Cleansing No -Bioengineered Tissue No -Bleeding Controlled with Pressure -Treatment Response Procedure Tolerated Well -Offloading No -Debridement - Subq, 1st 20sq cm No 7. L lateral ankle superior -Time 11:47 -Correct Patient Yes -Correct Side, Site, Position Yes -Correct Procedure Yes -Procedure Performed Yes -Type of Procedure Debridement -Clinical Debridement Subcutaneous -Tissue Removed Subcutaneous -Post Debridement (cm) - Length 0.1 -Post Debridement (cm) - Width 0.1 -Post Debridement (cm) - Depth 0.1 -Total Square (Post) (cm) 0.01 -Area of Debridement (cm) - Length 0.1 -Area of Debridement (cm) - Width 0.1 -Total Square (Area) (cm) 0.01 -Tunneling No -Undermining/Tunneling No -Circular Undermining No -Wound/Ulcer Outcome Not Healed -Ulcer Cleansing Rinsed/ Irrigated with Saline -Foul Odor after Cleansing No -Bioengineered Tissue No -Bleeding Controlled with Pressure -Treatment Response Procedure Tolerated Well -Offloading Yes -Type of Offloading Camwalker -Debridement - Subq, 20sq cm No 6. L medial ankle -Time 11:48 -Correct Patient Yes -Correct Side, Site, Position Yes -Correct Procedure Yes -Procedure Performed Yes -Type of Procedure Debridement -Clinical Debridement Subcutaneous -Tissue Removed Subcutaneous -Post Debridement (cm) - Length 0.8 -Post Debridement (cm) - Width 0.5 -Post Debridement (cm) - Depth 0.4 -Total Square (Post) (cm) 0.40 -Area of Debridement (cm) - Length 0.8 -Area of Debridement (cm) - Width 0.5 -Total Square (Area) (cm) 0.40 -Tunneling Yes -Tunneling Position (O'clock) 12 -Tunneling Distance (cm) 2.2 -Undermining/Tunneling No -Circular Undermining No -Wound/Ulcer Outcome Not Healed -Ulcer Cleansing Rinsed/ Irrigated with Saline -Foul Odor after Cleansing No -Bioengineered Tissue No -Bleeding Controlled with Pressure -Treatment Response Procedure Tolerated Well -Offloading Yes -Type of Offloading Camwalker -Debridement - Subq, 1st 20sq cm Yes Pain Scale: 0-10 Numeric Is Patient Pain Free? Yes WC - Nurse 3 - General Ulcer D/C NN Start: 10/07/23 08:27 Freq: Status: Active Protocol: Activity Type Activity Date Activity User E-sign Co-sign Detail Recorded Client Recorded Date Recorded By Document 10/25/23 12:20 RB Desktop 10/25/23 12:21 RB 10/25/23 12:20 Wound Care Center Nurse 3 8-left lateral inferior foot -Ulcer Cleansing Rinsed/ Irrigated with Saline -Primary Dressing Applied C Hydrogel ($) -Primary Dressing Covered/Secured with Dry Gauze,Dry Gauze & Roll Gauze,Secured with Tape 7. L lateral ankle superior -Other Dressing hydrogel -Primary Dressing Covered/Secured with Dry Gauze & Roll Gauze, Secured with Tape 6. L medial ankle -Other Dressing hydrogel -Primary Dressing Covered/Secured with Dry Gauze,Dry Gauze & Roll Gauze,Secured with Tape Treatment Response Procedure Tolerated Well Pain Scale: 0-10 Numeric Is Patient Pain Free? Yes WC - Visit Discharge Discharge Condition Stable Ambulatory Status Wheelchair Transportation Private Auto Medication Reconcilliation completed & No provided to patient/care provider Clinical Summary of Care Provided Yes Notes: will apply martha wrap after HBO treatment Assessment/Plan Assessment/Plan (1) Osteomyelitis of ankle or foot, left, acute: CODE(S): M86.172 - Other acute osteomyelitis, left ankle and foot (2) Osteomyelitis of ankle, left, acute: CODE(S): M86.172 - Other acute osteomyelitis, left ankle and foot (3) Abscess of bursa, left ankle and foot: CODE(S): M71.072 - Abscess of bursa, left ankle and foot (4) Cellulitis of left lower limb: CODE(S): L03.116 - Cellulitis of left lower limb (5) Charcot foot due to diabetes mellitus: CODE(S): E11.610 - 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 arthropathy (6) Non-pressure chronic ulcer of left 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: CODE(S): L97.322 - Non-pressure chronic ulcer of left 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 (7) Other acute postprocedural pain: CODE(S): G89.18 - Other acute postprocedural pain (8) Type 2 diabetes mellitus with diabetic polyneuropathy: CODE(S): E11.42 - Type 2 diabetes mellitus with diabetic polyneuropathy QUALIFIERS: Diabetes mellitus retirement insulin use: without middle or intermediate school principal use Qualified Code(s): E11.42 - Type 2 diabetes mellitus with diabetic p olyneuropathy (9) 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 muscle: CODE(S): L97.523 - 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 muscle (10) Gas gangrene of foot: CODE(S): A48.0 - Gas gangrene (11) Diabetic infection of left foot: CODE(S): E11.628 - Type 2 diabetes mellitus with other skin complications; L08.9 - Local infection of the skin and subcutaneous tissue, unspecified (12) 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 bone: CODE(S): L97.524 - 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 bone (13) Cellulitis: CODE(S): L03.90 - Cellulitis, unspecified QUALIFIERS: Site of cellulitis: extremity Site of cellulitis of extremity: lower extremity Laterality: left Qualified Code(s): L03.116 - Cellulitis of left lower limb (14) Hypertension: CODE(S): I10 - Essential (primary) hypertension QUALIFIERS: Hypertension type: primary hypertension Qualified Code(s): I10 - Essential (primary) hypertension PLAN: Plan The patient appears to be tolerating hyperbaric oxygen therapy well, which will be continued as per their medical treatment plan.
[2023-10-27 13:17] LABS: Bedside Glucose 163 mg/dL (74-106)
[2023-10-27 13:46] VITALS: BP 117/80; BP 133/73; PULSE 86; RESP 18
[2023-10-27 15:29] LABS: Bedside Glucose 149 mg/dL (74-106)
[2023-10-28 08:38] VITALS: BP 126/75; BP 130/81; PULSE 72; PULSE 84; RESP 18; TEMP 35.9
[2023-10-28 08:53] LABS: Bedside Glucose 160 mg/dL (74-106)
[2023-10-28 10:50] LABS: Bedside Glucose 142 mg/dL (74-106)
--- NOTE | 2023-10-28 11:54 | HBO.PN.PCM_ITS ---
History of Present Illness Date of Service: 10/28/23 Chief Complaint: Diabetic left foot infection with gas gangrene and osteom yelitis; Li grade 3 diabetic foot infection. History of Wound: 43-year-old male status post left Charcot reconstruction. Denies constitutional symptoms. Wound is improving today. Progress of Wound: The patient underwent his 26th hyperbaric oxygen therapy session today. The patient is scheduled for a total of 30 such sessions. Objective Data Objective Data Vital Signs: Vital Signs Temp Pulse Resp BP O2 Del Method O2 Flow Rate 96.7 F L 84 18 130/81 H Room Air 99 10/28/23 08:38 10/28/23 08:38 10/28/23 08:38 10/28/23 08:38 10/25/23 11:23 10/07/23 00:29 Oxygen Flow Rate (L/min) 99 Oxygen Delivery Method Room Air Weight: 113.398 kg Body Mass Index (BMI) 33.9 Lab / Micro Data Labs: Laboratory Results - last 24 hr 10/27/23 12:59: POC Glucose 163 H 10/27/23 15:06: POC Glucose 149 H 10/28/23 08:24: POC Glucose 160 H 10/28/23 10:27: POC Glucose 142 H Exam Physical Exam Const alert, oriented x3 and no apparent distress Psych mental status grossly normal, thought process normal, cooperative, affect normal and speech normal Nursing Assessment and Debridement Post-Debridement Measurements and Additional Note: Post-Debridement Measurements/Treatment - Nurse 1 - General Ulcer Assessment Start: 10/07/23 08:27 Freq: Status: Active Protocol: GWEN Activity Type Activity Date Activity User E-sign Co-sign Detail Recorded Client Recorded Date Recorded By Document 10/25/23 11:23 KW Desktop 10/25/23 11:40 KW 10/25/23 11:23 - Today's Visit Information Type of service Follow-up Visit (Physician/ORTHO TECH ) Arrival Mode Wheelchair Accompanied by STEP FATHER Patient Identification Verified (Name & Yes ) Height and Weight Body Mass Index (BMI) 33.9 BMI Classification Obese Vital Signs Temperature (97.8 F-99.1 F) 97.6 F L Temperature Source Temporal Pulse Rate (60-100) 97 Pulse Location Monitor Respiratory Rate (12-18) 18 Respiratory rate source Observation Oxygen Delivery Method Room Air Blood Pressure (90/60-120/80) 129/76 H Blood Pressure Mean (mm Hg) 93 Source Monitor Position Semi-Fowlers Blood Pressure Location Left Arm History Since Last Visit- (Skip if this is Patient's initial visit) Have you changed medications since your No last visit? Any new allergies or adverse reactions No Had a fall/change in ADL's that may No increase risk of falls Signs or symptoms of abuse and/or No neglect since last visit Have you been in the hospital since your No last visit? Has dressing in place as prescribed Yes Has compression in place as prescribed Yes Has offloadiing in place as prescribed Yes Experienced any changes in pain level or No management Left Footwear Slipper Right Footwear Regular Shoe Pain Scale: 0-10 Numeric Is Patient Pain Free? Yes WC - Nurse 1 - General Ulcer Measurement Start: 10/07/23 08:27 Freq: Status: Active Protocol: Activity Type Activity Date Activity User E-sign Co-sign Detail Recorded Client Recorded Date Recorded By Document 10/25/23 11:23 KW Desktop 10/25/23 11:40 KW 10/25/23 11:23 Wound Center Nurse 1 8-left lateral inferior foot -Current Size (cm) - Length 0.1 -Current Size (cm) - Width 0.1 -Current Size (cm) - Depth 0.1 -Total Square Cm 0.01 -Exudate Amt None Present -Texture ([place]-wound Skin Appearance) Assessed -Moisture ([place]-wound Skin Appearance) Assessed -Temperature ([place]-wound Skin No Abnormality Appearance) (Pt Warm) -Ulcer Cleansing Soap and Water -Foul Odor after Cleansing No -Anesthetic Used 4% Lidocaine Solution 7. L lateral ankle superior -Current Size (cm) - Length 0.4 -Current Size (cm) - Width 0.2 -Current Size (cm) - Depth 0.2 -Total Square Cm 0.08 -Exudate Amt None Present -Wound Margin Distinct, Outline Attached -Granulation Amt Large (67-100%) -Granulation Quality Red -Texture ([place]-wound Skin Appearance) Assessed -Moisture ([place]-wound Skin Appearance) Assessed -Color ([place]-wound Skin Appearance) Assessed -Temperature ([place]-wound Skin No Abnormality Appearance) (Pt Warm) -Ulcer Cleansing Soap and Water -Foul Odor after Cleansing No -Anesthetic Used 4% Lidocaine Solution 6. L medial ankle -Current Size (cm) - Length 0.8 -Current Size (cm) - Width 0.5 -Current Size (cm) - Depth 0.4 -Total Square Cm 0.40 -Exudate Amt Medium -Exudate Type Serosanguineous -Wound Margin Distinct, Outline Attached -Granulation Amt Large (67-100%) -Granulation Quality Red -Texture ([place]-wound Skin Appearance) Assessed -Moisture ([place]-wound Skin Appearance) Assessed -Color ([place]-wound Skin Appearance) Assessed -Temperature ([place]-wound Skin No Abnormality Appearance) (Pt Warm) -Ulcer Cleansing Soap and Water -Foul Odor after Cleansing No -Anesthetic Used 4% Lidocaine Solution WC - Nurse 2 - General Ulcer CM Notes Start: 10/07/23 08:27 Freq: Status: Active Protocol: Activity Type Activity Date Activity User E-sign Co-sign Detail Recorded Client Recorded Date Recorded By Document 10/25/23 11:46 Laptop 10/25/23 11:52 10/25/23 11:46 Wound Center Nurse 2 8-left lateral inferior foot -Time 11:47 -Correct Patient Yes -Correct Side, Site, Position Yes -Correct Procedure Yes -Procedure Performed Yes -Type of Procedure Debridement -Clinical Debridement Subcutaneous -Tissue Removed Subcutaneous -Post Debridement (cm) - Length 0.5 -Post Debridement (cm) - Width 0.2 -Post Debridement (cm) - Depth 0.2 -Total Square (Post) (cm) 0.10 -Area of Debridement (cm) - Length 0.5 -Area of Debridement (cm) - Width 0.2 -Total Square (Area) (cm) 0.10 -Tunneling No -Undermining/Tunneling No -Circular Undermining No -Wound/Ulcer Outcome Not Healed -Ulcer Cleansing Rinsed/ Irrigated with Saline -Foul Odor after Cleansing No -Bioengineered Tissue No -Bleeding Controlled with Pressure -Treatment Response Procedure Tolerated Well -Offloading No -Debridement - Subq, 1st 20sq cm No 7. L lateral ankle superior -Time 11:47 -Correct Patient Yes -Correct Side, Site, Position Yes -Correct Procedure Yes -Procedure Performed Yes -Type of Procedure Debridement -Clinical Debridement Subcutaneous -Tissue Removed Subcutaneous -Post Debridement (cm) - Length 0.1 -Post Debridement (cm) - Width 0.1 -Post Debridement (cm) - Depth 0.1 -Total Square (Post) (cm) 0.01 -Area of Debridement (cm) - Length 0.1 -Area of Debridement (cm) - Width 0.1 -Total Square (Area) (cm) 0.01 -Tunneling No -Undermining/Tunneling No -Circular Undermining No -Wound/Ulcer Outcome Not Healed -Ulcer Cleansing Rinsed/ Irrigated with Saline -Foul Odor after Cleansing No -Bioengineered Tissue No -Bleeding Controlled with Pressure -Treatment Response Procedure Tolerated Well -Offloading Yes -Type of Offloading Camwalker -Debridement - Subq, 1st 20sq cm No 6. L medial ankle -Time 11:48 -Correct Patient Yes -Correct Side, Site, Position Yes -Correct Procedure Yes -Procedure Performed Yes -Type of Procedure Debridement -Clinical Debridement Subcutaneous -Tissue Removed Subcutaneous -Post Debridement (cm) - Length 0.8 -Post Debridement (cm) - Width 0.5 -Post Debridement (cm) - Depth 0.4 -Total Square (Post) (cm) 0.40 -Area of Debridement (cm) - Length 0.8 -Area of Debridement (cm) - Width 0.5 -Total Square (Area) (cm) 0.40 -Tunneling Yes -Tunneling Position (O'clock) 12 -Tunneling Distance (cm) 2.2 -Undermining/Tunneling No -Circular Undermining No -Wound/Ulcer Outcome Not Healed -Ulcer Cleansing Rinsed/ Irrigated with Saline -Foul Odor after Cleansing No -Bioengineered Tissue No -Bleeding Controlled with Pressure -Treatment Response Procedure Tolerated Well -Offloading Yes -Type of Offloading Camwalker -Debridement - Subq, 1st 20sq cm Yes Pain Scale: 0-10 Numeric Is Patient Pain Free? Yes WC - Nurse 3 - General Ulcer D/C NN Start: 10/07/23 08:27 Freq: Status: Active Protocol: Activity Type Activity Date Activity User E-sign Co-sign Detail Recorded Client Recorded Date Recorded By Document 10/25/23 12:20 RB Desktop 10/25/23 12:21 RB 10/25/23 12:20 Wound Care Center Nurse 3 8-left lateral inferior foot -Ulcer Cleansing Rinsed/ Irrigated with Saline -Primary Dressing Applied C Hydrogel ($) -Primary Dressing Covered/Secured with Dry Gauze,Dry Gauze & Roll Gauze,Secured with Tape 7. L lateral ankle superior -Other Dressing hydrogel -Primary Dressing Covered/Secured with Dry Gauze & Roll Gauze, Secured with Tape 6. L medial ankle -Other Dressing hydrogel -Primary Dressing Covered/Secured with Dry Gauze,Dry Gauze & Roll Gauze,Secured with Tape Treatment Response Procedure Tolerated Well Pain Scale: 0-10 Numeric Is Patient Pain Free? Yes WC - Visit Discharge Discharge Condition Stable Ambulatory Status Wheelchair Transportation Private Auto Medication Reconcilliation completed & No provided to patient/care provider Clinical Summary of Care Provided Yes Notes: will apply martha wrap after HBO treatment Assessment/Plan Assessment/Plan (1) Osteomyelitis of ankle or foot, left, acute: CODE(S): M86.172 - Other acute osteomyelitis, left ankle and foot (2) Osteomyelitis of ankle, left, acute: CODE(S): M86.172 - Other acute osteomyelitis, left ankle and foot (3) Abscess of bursa, left ankle and foot: CODE(S): M71.072 - Abscess of bursa, left ankle and foot (4) Cellulitis of left lower limb: CODE(S): L03.116 - Cellulitis of left lower limb (5) Charcot foot due to diabetes mellitus: CODE(S): E11.610 - 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 arthropathy (6) Non-pressure chronic ulcer of left 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: CODE(S): L97.322 - Non-pressure chronic ulcer of left 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 (7) Other acute postprocedural pain: CODE(S): G89.18 - Other acute postprocedural pain (8) Type 2 diabetes mellitus with diabetic polyneuropathy: CODE(S): E11.42 - Type 2 diabetes mellitus with diabetic polyneuropathy QUALIFIERS: Diabetes mellitus manager intermediate insulin use: without manager intermediate use Qualified Code(s): E11.42 - Type 2 diabetes mellitus with diabetic polyneuropathy (9) 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 muscle: CODE(S): L97.523 - 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 muscle (10) Gas gangrene of foot: CODE(S): A48.0 - Gas gangrene (11) Diabetic infection of left foot: CODE(S): E11.628 - Type 2 diabetes mellitus with other skin complications; L08.9 - Local infection of the skin and subcutaneous tissue, unspecified (12) Non-pressure chronic ulcer of other part of left foot with necrosis of bone: CODE(S): L97.524 - Non-pressure chronic ulcer of other part of left foot with necrosis of bone (13) Cellulitis: CODE(S): L03.90 - Cellulitis, unspecified QUALIFIERS: Site of cellulitis: extremity Site of cellulitis of extremity: lower extremity Laterality: left Qualified Code(s): L03.116 - Cellulitis of left lower limb (14) Hypertension: CODE(S): I10 - Essential (primary) hypertension QUALIFIERS: Hypertension type: primary hypertension Qualified Code(s): I10 - Essential (primary) hypertension PLAN: Plan The patient appears to be tolerating hyperbaric oxygen therapy well, which will be continued as per their medical treatment plan.
[2023-10-31 08:09] LABS: Bedside Glucose 175 mg/dL (74-106)
--- NOTE | 2023-10-31 08:31 | PCM.HBO.PN ---
History of Present Illness Date of Service: 10/31/23 Chief Complaint: Diabetic left foot infection with gas gangrene and osteomyelitis; Li grade 3 diabetic foot infection. History of Wound: 43-year-old male status post left Charcot reconstruction. Denies constitutional symptoms. Wound is improving today. Subjective Subjective The patient underwent his 27th hyperbaric oxygen therapy session today. The patient is scheduled for a total of 30 such sessions. Tolerance of hyperbaric oxygen therapy: Hyperbaric oxygen therapy was provided as per the facility's protocol. Hyperbaric oxygen therapy was undertaken at 2 krzysztof and 100% oxygen for 90 minutes without air breaks. The patient tolerated hyperbaric oxygen therapy well, without complaints or complications. Upon emergence from the hyperbaric chamber, the patient's vital signs remained stable. Blood sugar levels were monitored both before and after hyperbaric oxygen therapy, and found to be satisfactory. Objective Data Objective Data Vital Signs: Vital Signs Temp Pulse Resp BP O2 Del Method O2 Flow Rate 96.7 F L 84 18 130/81 H Room Air 99 10/28/23 08:38 10/28/23 08:38 10/28/23 08:38 10/28/23 08:38 10/25/23 11:23 10/07/23 00:29 Oxygen Flow Rate (L/min) 99 Oxygen Delivery Method Room Air Weight: 250 lb Body Mass Index (BMI) 33.9 Lab / Micro Data Labs: Laboratory Results - last 24 hr 10/31/23 07:50: POC Glucose 175 H Exam Physical Exam Const alert, oriented x3 and no apparent distress HEENT normocephalic Tympanic Membrane: TM's normal bilaterally Resp normal respiratory effort Effort and Inspection: able to speak in complete sentences Auscultation: clear to auscultation bilaterally Cardio regular rate and regular rhythm Psych mental status grossly normal, thought process normal, cooperative, affect normal and speech normal Assessment/Plan Assessment/Plan (1) Osteomyelitis of ankle or foot, left, acute: CODE(S): M86.172 - Other acute osteomyelitis, left ankle and foot (2) Osteomyelitis of ankle, left, acute: CODE(S): M86.172 - Other acute osteomyelitis, left ankle and foot (3) Abscess of bursa, left ankle and foot: CODE(S): M71.072 - Abscess of bursa, left ankle and foot (4) Cellulitis of left lower limb: CODE(S): L03.116 - Cellulitis of left lower limb (5) Charcot foot due to diabetes mellitus: CODE(S): E11.610 - 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 arthropathy (6) Non-pressure chronic ulcer of left 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: CODE(S): L97.322 - Non-pressure chronic ulcer of left 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 (7) Other acute postprocedural pain: CODE(S): G89.18 - Other acute postprocedural pain (8) Type 2 diabetes mellitus with diabetic polyneuropathy: CODE(S): E11.42 - Type 2 diabetes mellitus with diabetic polyneuropathy QUALIFIERS: 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: without structural steel shop supervisor use Qualified Code(s): E11.42 - Type 2 diabetes mellitus with diabetic polyneuropathy (9) Non-pressure chronic ulcer of other part of left foot with necrosis of muscle: CODE(S): L97.523 - Non-pressure chronic ulcer of other part of left foot with necrosis of muscle (10) Gas gangrene of foot: CODE(S): A48.0 - Gas gangrene (11) Diabetic infection of left foot: CODE(S): E11.628 - Type 2 diabetes mellitus with other skin complications; L08.9 - Local infection of the skin and subcutaneous tissue, unspecified (12) Non-pressure chronic ulcer of other part of left foot with necrosis of bone: CODE(S): L97.524 - Non-pressure chronic ulcer of other part of left foot with necrosis of bone (13) Cellulitis: CODE(S): L03.90 - Cellulitis, unspecified QUALIFIERS: Site of cellulitis: extremity Site of cellulitis of extremity: lower extremity Laterality: left Qualified Code(s): L03.116 - Cellulitis of left lower limb (14) Hypertension: CODE(S): I10 - Essential (primary) hypertension QUALIFIERS: Hypertension type: primary hypertension Qualified Code(s): I10 - Essential (primary) hypertension PLAN: Plan The patient appears to be tolerating hyperbaric oxygen therapy well, which will be continued as per their medical treatment plan.
[2023-10-31 10:03] VITALS: BP 128/84; BP 146/86; PULSE 73; PULSE 80; RESP 16; TEMP 35.3; TEMP 35.8
[2023-10-31 10:32] LABS: Bedside Glucose 144 mg/dL (74-106)
--- NOTE | 2023-10-31 11:00 | MRI_ITS ---
STUDY: MRI LEFT ANKLE WITHOUT CONTRAST REASON FOR EXAM: Male, 43 years old. Pain. History of prior surgeries and infection. Reconstruction in July 2023. TECHNIQUE: Standardized fat and water weighted pulse sequences were obtained in all 3 orthogonal planes. Study is significantly compromised by marked metallic artifact of the plate and screw fixation and of the cancellus screw placement through the calcaneocuboid joint. Minimal diagnostic information available. COMPARISON: Foot and ankle x-rays dated 10/07/2023. FINDINGS: Diffuse marked superficial and deep subcutaneous soft tissue edema. Postsurgical changes with distal tibial plate and screw fixation with subtalar fusion. Long cancellus screw extending through the tibial plate from a posterior approach and extending into the calcaneocuboid joint. Luke OsteoArthritic changes with destructive changes of the tibiotalar joint, subtalar joint, talonavicular joint, midfoot and tarsometatarsal joints. Achilles tendon tear distally with approximately 3.2 cm of separation of the proximal and distal tendon stumps No bony erosive changes other than the extensive destruction at multiple joints as described. MRI/Lower Ext Joint Only (Routine) IMPRESSION: Postsurgical changes with marked osteoarthritic and degenerative destructive changes. Diffuse marked superficial and deep subcutaneous soft tissue edema compatible with cellulitis. Study is extremely limited by metallic artifact. Electronically Signed: Fredis Govea MD at 12:22 EDT ,
[2023-11-01 11:25] VITALS: BP 128/77; PULSE 95; RESP 16; TEMP 36.2; BMI 33.9
--- NOTE | 2023-11-01 11:49 | PCM.WC.PN ---
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 History of Wound: 43-year-old male status post left Charcot reconstruction. Denies constitutional symptoms. Wound is improving today. Progress of Wound: The patient underwent his 26th hyperbaric oxygen therapy session today. The patient is scheduled for a total of 30 such sessions. Objective Data Objective Data Vital Signs: Vital Signs Temp Pulse Resp BP O2 Del Method O2 Flow Rate 97.1 F L 95 16 128/77 H Room Air 99 11/01/23 11:25 11/01/23 11:25 11/01/23 11:25 11/01/23 11:25 11/01/23 11:25 10/07/23 00:29 Oxygen Flow Rate (L/min) 99 Oxygen Delivery Method Room Air Weight: 113.398 kg Body Mass Index (BMI) 33.9 Physical Exam Narrative Neurovascular status unchanged Full-thickness wounds to medial ankle, 3 cc purulence drained from the site today. Lateral ankle wound down to the level of bone noted with intact vessel loop closure allowing for partial wound closure, additional 3 cc purulence drained from the site. Pre and postdebridement measurements documented in notes nursing notes. This was debrided down to level of muscle today. No residual abscess noted. New onset redness swelling to plantar midfoot with possible fluctuance and increase in warmth. Concern for deep abscess. No signs of DVT. Const alert and oriented x3 Debridement Note Debridement Note Post-Debridement Measurements and Additional Note: Post-Debridement Measurements/Treatment - Nurse 1 - General Ulcer Assessment Start: 10/07/23 08:27 Freq: Status: Active Protocol: GWEN Activity Type Activity Date Activity User E-sign Co-sign Detail Recorded Client Recorded Date Recorded By Document 10/11/23 12:05 RB [id number] 10/11/23 12:09 RB Document 10/18/23 11:08 KW Desktop 10/18/23 11:25 KW Document 10/25/23 11:23 KW Desktop 10/25/23 11:40 KW Document 11/01/23 11:25 GM Desktop 11/01/23 11:37 GM 10/11/23 10/18/23 10/25/23 12:05 11:08 11:23 - Today's Visit Information Type of service Follow-up Visit Follow-up Visit Follow-up Visit (Physician/ELECTRIC METER REPAIRER APPRENTICE (Physician/ELECTRIC METER REPAIRER APPRENTICE (Physician/ELECTRIC METER REPAIRER APPRENTICE ) ) ) Arrival Mode Wheelchair Wheelchair Wheelchair Transfer Assistance Manual Accompanied by step father STEP FATHER Patient Identification Verified (Name & Yes Yes Yes ) Patient Requires Transmission-Based No Precautions Finger Stick Blood Sugar(mg/dl) (if 123 indicated): Blood Sugar Stated by Patient Height and Weight Body Mass Index (BMI) 33.9 33.9 33.9 BMI Classification Obese Obese Obese Vital Signs Temperature (97.8 F-99.1 F) 98 F 96.6 F L 97.6 F L Temperature Source Temporal Temporal Temporal Pulse Rate (60-100) 94 85 97 Pulse Location Monitor Monitor Monitor Respiratory Rate (12-18) 18 18 18 Respiratory rate source Observation Observation Observation Oxygen Delivery Method Room Air Room Air Blood Pressure (90/60-120/80) 121/73 H 129/80 H 129/76 H Blood Pressure Mean (mm Hg) 89 96 93 Source Monitor Monitor Monitor Position Sitting Semi-Fowlers Semi-Fowlers Blood Pressure Location Left Arm Left Arm Left Arm History Since Last Visit- (Skip if this is Patient's initial visit) Have you changed medications since your No No No last visit? Any new allergies or adverse reactions No No No Had a fall/change in ADL's that may No No No increase risk of falls Signs or symptoms of abuse and/or No No No neglect since last visit Have you been in the hospital since your No No No last visit? Has dressing in place as prescribed Yes Yes Yes Has compression in place as prescribed Yes Yes Yes Has offloadiing in place as prescribed Yes Yes Yes Experienced any changes in pain level or No No No management Left Footwear No Footwear Slipper Right Footwear Regular Shoe Regular Shoe Pain Scale: 0-10 Numeric Is Patient Pain Free? Yes Yes Yes 11/01/23 11:25 - Today's Visit Information Type of service Follow-up Visit (Physician/ELECTRIC METER REPAIRER APPRENTICE ) Arrival Mode Wheelchair Transfer Assistance None Accompanied by Patient Identification Verified (Name & Yes ) Patient Requires Transmission-Based No Precautions Finger Stick Blood Sugar(mg/dl) (if indicated): Blood Sugar Height and Weight Body Mass Index (BMI) 33.9 BMI Classification Obese Vital Signs Temperature (97.8 F-99.1 F) 97.1 F L Temperature Source Temporal Pulse Rate (60-100) 95 Pulse Location Monitor Respiratory Rate (12-18) 16 Respiratory rate source Observation Oxygen Delivery Method Room Air Blood Pressure (90/60-120/80) 128/77 H Blood Pressure Mean (mm Hg) 94 Source Monitor Position Sitting Blood Pressure Location Left Arm History Since Last Visit- (Skip if this is Patient's initial visit) Have you changed medications since your No last visit? Any new allergies or adverse reactions No Had a fall/change in ADL's that may No increase risk of falls Signs or symptoms of abuse and/or No neglect since last visit Have you been in the hospital since your No last visit? Has dressing in place as prescribed Yes Has compression in place as prescribed Yes Has offloadiing in place as prescribed Yes Experienced any changes in pain level or No management Left Footwear Other Footwear (Comment) Right Footwear Pain Scale: 0-10 Numeric Is Patient Pain Free? Yes WC - Nurse 1 - General Ulcer Measurement Start: 10/07/23 08:27 Freq: Status: Active Protocol: Activity Type Activity Date Activity User E-sign Co-sign Detail Recorded Client Recorded Date Recorded By Document 10/11/23 12:05 RB [id number] 10/11/23 12:09 RB Document 10/18/23 11:08 KW Desktop 10/18/23 11:25 KW Document 10/25/23 11:23 KW Desktop 10/25/23 11:40 KW Document 11/01/23 11:25 GM Desktop 11/01/23 11:37 GM 10/11/23 10/18/23 10/25/23 12:05 11:08 11:23 Wound Center Nurse 1 8-left lateral inferior foot -Current Size (cm) - Length 0.1 -Current Size (cm) - Width 0.1 -Current Size (cm) - Depth 0.1 -Total Square Cm 0.01 -Photo Taken -Tunneling -Undermining/Tunneling -Circular Undermining -Exudate Amt None Present -Texture ([place]-wound Skin Appearance) Assessed -Moisture ([place]-wound Skin Appearance) Assessed -Temperature ([place]-wound Skin No Abnormality Appearance) (Pt Warm) -Ulcer Cleansing Soap and Water -Foul Odor after Cleansing No -Anesthetic Used 4% Lidocaine Solution 7. L lateral ankle superior -Combined with other wound No -Current Size (cm) - Length 1 0.4 -Current Size (cm) - Width 0.5 0.2 -Current Size (cm) - Depth 1 0.2 -Total Square Cm 0.5 0.08 -Photo Taken -Tunneling No -Undermining/Tunneling No -Circular Undermining No -Exudate Amt Large Small None Present -Exudate Type Serosanguineous Serosanguineous -Wound Margin Thickened & Thickened & Distinct, Rolled Under Rolled Under Outline Attached -Granulation Amt Medium (34-66%) Large (67-100%) Large (67-100%) -Granulation Quality [place] -Slough/Fibrin Yes -Necrosis Amt Medium (34-66%) -Necrotic Tissue Type Adherent Slough -Structure Exposed N/A -Texture ([place]-wound Skin Appearance) Assessed, Assessed, Assessed Scarring Localized Edema -Moisture ([place]-wound Skin Appearance) Assessed Assessed Assessed -Color ([place]-wound Skin Appearance) Assessed Assessed Assessed -Temperature ([place]-wound Skin No Abnormality No Abnormality No Abnormality Appearance) (Pt Warm) (Pt Warm) (Pt Warm) -Tenderness on Palpation ([place]-wound No No Skin Appearance) -Ulcer Cleansing Wound Cleanser Soap and Water Soap and Water -Foul Odor after Cleansing No No No -Anesthetic Used 4% Lidocaine 4% Lidocaine 4% Lidocaine Solution Solution Solution 6. L medial ankle -Combined with other wound No -Current Size (cm) - Length 1 0.5 0.8 -Current Size (cm) - Width 0.5 0.2 0.5 -Current Size (cm) - Depth 1 1 0.4 -Total Square Cm 0.5 0.10 0.40 -Photo Taken -Epithelialization -Tunneling No -Undermining/Tunneling No -Circular Undermining No -Exudate Amt Large Small Medium -Exudate Type Serosanguineous Serosanguineous Serosanguineous -Wound Margin Thickened & Thickened & Distinct, Rolled Under Rolled Under Outline Attached -Granulation Amt Medium (34-66%) Large (67-100%) Large (67-100%) -Granulation Quality [place] Red -Slough/Fibrin Yes -Necrosis Amt Medium (34-66%) -Necrotic Tissue Type Adherent Slough -Structure Exposed N/A -Texture ([place]-wound Skin Appearance) Assessed, Assessed Assessed Scarring -Moisture ([place]-wound Skin Appearance) Assessed Assessed Assessed -Color ([place]-wound Skin Appearance) Assessed Assessed Assessed -Temperature ([place]-wound Skin No Abnormality No Abnormality No Abnormality Appearance) (Pt Warm) (Pt Warm) (Pt Warm) -Tenderness on Palpation ([place]-wound No Skin Appearance) -Ulcer Cleansing Wound Cleanser Soap and Water Soap and Water -Foul Odor after Cleansing No No -Anesthetic Used 5% Lidocaine 4% Lidocaine 4% Lidocaine Gel Solution Solution Left Calf (cm) 35 Left Ankle (cm) 24.5 11/01/23 11:25 Wound Center Nurse 1 8-left lateral inferior foot -Current Size (cm) - Length 0.1 -Current Size (cm) - Width 0.1 -Current Size (cm) - Depth 0.1 -Total Square Cm 0.01 -Photo Taken No -Tunneling No -Undermining/Tunneling No -Circular Undermining No -Exudate Amt None Present -Texture ([place]-wound Skin Appearance) -Moisture ([place]-wound Skin Appearance) -Temperature ([place]-wound Skin Appearance) -Ulcer Cleansing -Foul Odor after Cleansing -Anesthetic Used 7. L lateral ankle superior -Combined with other wound No -Current Size (cm) - Length 0.1 -Current Size (cm) - Width 0.1 -Current Size (cm) - Depth 0.1 -Total Square Cm 0.01 -Photo Taken No -Tunneling -Undermining/Tunneling No -Circular Undermining -Exudate Amt -Exudate Type -Wound Margin -Granulation Amt -Granulation Quality [place] -Slough/Fibrin -Necrosis Amt -Necrotic Tissue Type -Structure Exposed -Texture ([place]-wound Skin Appearance) -Moisture ([place]-wound Skin Appearance) -Color ([place]-wound Skin Appearance) -Temperature ([place]-wound Skin Appearance) -Tenderness on Palpation ([place]-wound Skin Appearance) -Ulcer Cleansing -Foul Odor after Cleansing -Anesthetic Used 6. L medial ankle -Combined with other wound -Current Size (cm) - Length 0.1 -Current Size (cm) - Width 0.1 -Current Size (cm) - Depth 0.1 -Total Square Cm 0.01 -Photo Taken No -Epithelialization Small 1-33% -Tunneling No -Undermining/Tunneling No -Circular Undermining No -Exudate Amt -Exudate Type Yellow/Green -Wound Margin Distinct, Outline Attached -Granulation Amt Small (1-33%) -Granulation Quality [place] -Slough/Fibrin No -Necrosis Amt -Necrotic Tissue Type -Structure Exposed N/A -Texture ([place]-wound Skin Appearance) Assessed -Moisture ([place]-wound Skin Appearance) Assessed -Color ([place]-wound Skin Appearance) Assessed -Temperature ([place]-wound Skin No Abnormality Appearance) (Pt Warm) -Tenderness on Palpation ([place]-wound Skin Appearance) -Ulcer Cleansing Rinsed/ Irrigated with Saline -Foul Odor after Cleansing No -Anesthetic Used 5% Lidocaine Gel Left Calf (cm) Left Ankle (cm) WC - Nurse 2 - General Ulcer CM Notes Start: 10/07/23 08:27 Freq: Status: Active Protocol: Activity Type Activity Date Activity User E-sign Co-sign Detail Recorded Client Recorded Date Recorded By Document 10/11/23 11:34 [facility] Laptop 10/11/23 11:52 [facility] Document 10/18/23 11:41 [facility] Laptop 10/18/23 11:45 JF Document 10/25/23 11:46 JF Laptop 10/25/23 11:52 JF Document 11/01/23 11:41 MW Desktop 11/01/23 11:48 MW 10/11/23 10/18/23 10/25/23 11:34 11:41 11:46 Wound Center Nurse 2 8-left lateral inferior foot -Time 11:42 11:47 -Correct Patient Yes Yes -Correct Side, Site, Position Yes Yes -Correct Procedure Yes Yes -Procedure Performed Yes Yes -Type of Procedure Debridement Debridement -Clinical Debridement Subcutaneous Subcutaneous -Tissue Removed Subcutaneous Subcutaneous -Post Debridement (cm) - Length 0.3 0.5 -Post Debridement (cm) - Width 0.8 0.2 -Post Debridement (cm) - Depth 0.5 0.2 -Total Square (Post) (cm) 0.24 0.10 -Area of Debridement (cm) - Length 0.3 0.5 -Area of Debridement (cm) - Width 0.8 0.2 -Total Square (Area) (cm) 0.24 0.10 -Tunneling No No -Undermining/Tunneling No No -Circular Undermining No No -Wound/Ulcer Outcome Not Healed Not Healed -Ulcer Cleansing Rinsed/ Rinsed/ Irrigated with Irrigated with Saline Saline -Foul Odor after Cleansing No No -Bioengineered Tissue No No -Bleeding Controlled with Pressure Pressure -Treatment Response Procedure Procedure Tolerated Well Tolerated Well -Offloading No No -Debridement - Subq, 1st 20sq cm No No 7. L lateral ankle superior -Time 11:50 11:41 11:47 -Correct Patient Yes Yes Yes -Correct Side, Site, Position Yes Yes Yes -Correct Procedure Yes Yes Yes -Procedure Performed Yes Yes Yes -Type of Procedure Debridement Debridement Debridement -Clinical Debridement Muscle / Fascia Subcutaneous Subcutaneous -Tissue Removed Muscle Subcutaneous Subcutaneous -Post Debridement (cm) - Length 6.0 0.9 0.1 -Post Debridement (cm) - Width 1.0 0.2 0.1 -Post Debridement (cm) - Depth 1.2 0.4 0.1 -Total Square (Post) (cm) 6.00 0.18 0.01 -Area of Debridement (cm) - Length 6.0 0.9 0.1 -Area of Debridement (cm) - Width 1.0 0.2 0.1 -Total Square (Area) (cm) 6.00 0.18 0.01 -Tunneling No No No -Undermining/Tunneling No No No -Circular Undermining No No No -Wound/Ulcer Outcome Not Healed Not Healed Not Healed -Ulcer Cleansing Rinsed/ Rinsed/ Rinsed/ Irrigated with Irrigated with Irrigated with Saline Saline Saline -Foul Odor after Cleansing No No No -Bioengineered Tissue No No No -Bleeding Controlled with Pressure Pressure Pressure -Treatment Response Procedure Procedure Procedure Tolerated Well Tolerated Well Tolerated Well -Offloading No No Yes -Type of Offloading Camwalker -Assistive Device(s) Wheelchair -Debridement - Subq, 1st 20sq cm Yes No -Debridement - Muscle / Fascia, 1st No 20sq cm 6. L medial ankle -Time 11:51 11:41 11:48 -Correct Patient Yes Yes Yes -Correct Side, Site, Position Yes Yes Yes -Correct Procedure Yes Yes Yes -Procedure Performed Yes Yes Yes -Type of Procedure Debridement Debridement Debridement -Clinical Debridement Muscle / Fascia Subcutaneous Subcutaneous -Tissue Removed Muscle Subcutaneous Subcutaneous -Post Debridement (cm) - Length 1.1 0.9 0.8 -Post Debridement (cm) - Width 0.4 0.5 0.5 -Post Debridement (cm) - Depth 1 1.5 0.4 -Total Square (Post) (cm) 0.44 0.45 0.40 -Area of Debridement (cm) - Length 1.1 0.9 0.8 -Area of Debridement (cm) - Width 0.4 0.5 0.5 -Total Square (Area) (cm) 0.44 0.45 0.40 -Tunneling No No Yes -Tunneling Position (O'clock) 12 -Tunneling Distance (cm) 2.2 -Undermining/Tunneling Yes No No -Undermining/Tunneling Starts (O'clock 2 ) -Undermining/Tunneling Ends (O'clock) 5 -Maximum Distance (cm) 2.0 -Circular Undermining No No No -Wound/Ulcer Outcome Not Healed Not Healed Not Healed -Ulcer Cleansing Rinsed/ Rinsed/ Rinsed/ Irrigated with Irrigated with Irrigated with Saline Saline Saline -Foul Odor after Cleansing No No No -Bioengineered Tissue No No No -Bleeding Controlled with Pressure Pressure Pressure -Treatment Response Procedure Procedure Procedure Tolerated Well Tolerated Well Tolerated Well -Offloading No Yes Yes -Type of Offloading Surgical Shoe Camwalker -Assistive Device(s) Wheelchair -Debridement - Subq, 1st 20sq cm No Yes -Debridement - Muscle / Fascia, 1st Yes 20sq cm Pain Scale: 0-10 Numeric Is Patient Pain Free? Yes Yes Yes 11/01/23 11:41 Wound Center Nurse 2 8-left lateral inferior foot -Time 11:41 -Correct Patient Yes -Correct Side, Site, Position Yes -Correct Procedure Yes -Procedure Performed No -Type of Procedure -Clinical Debridement -Tissue Removed -Post Debridement (cm) - Length 0 -Post Debridement (cm) - Width 0 -Post Debridement (cm) - Depth -Total Square (Post) (cm) 0 -Area of Debridement (cm) - Length -Area of Debridement (cm) - Width -Total Square (Area) (cm) -Tunneling No -Undermining/Tunneling No -Circular Undermining No -Wound/Ulcer Outcome Healed- Epithelialized -Ulcer Cleansing -Foul Odor after Cleansing -Bioengineered Tissue -Bleeding Controlled with -Treatment Response -Offloading -Debridement - Subq, 1st 20sq cm 7. L lateral ankle superior -Time 11:42 -Correct Patient Yes -Correct Side, Site, Position Yes -Correct Procedure Yes -Procedure Performed Yes -Type of Procedure Debridement -Clinical Debridement Subcutaneous -Tissue Removed Subcutaneous -Post Debridement (cm) - Length 0.1 -Post Debridement (cm) - Width 0.1 -Post Debridement (cm) - Depth 0.1 -Total Square (Post) (cm) 0.01 -Area of Debridement (cm) - Length 0.1 -Area of Debridement (cm) - Width 0.1 -Total Square (Area) (cm) 0.01 -Tunneling No -Undermining/Tunneling No -Circular Undermining No -Wound/Ulcer Outcome Not Healed -Ulcer Cleansing Rinsed/ Irrigated with Saline -Foul Odor after Cleansing No -Bioengineered Tissue No -Bleeding Controlled with Pressure -Treatment Response Procedure Tolerated Well -Offloading No -Type of Offloading -Assistive Device(s) -Debridement - Subq, 1st 20sq cm Yes -Debridement - Muscle / Fascia, 1st 20sq cm 6. L medial ankle -Time 11:43 -Correct Patient Yes -Correct Side, Site, Position Yes -Correct Procedure Yes -Procedure Performed Yes -Type of Procedure Debridement -Clinical Debridement Subcutaneous -Tissue Removed Subcutaneous -Post Debridement (cm) - Length 0.1 -Post Debridement (cm) - Width 0.1 -Post Debridement (cm) - Depth 0.1 -Total Square (Post) (cm) 0.01 -Area of Debridement (cm) - Length 0.1 -Area of Debridement (cm) - Width 0.1 -Total Square (Area) (cm) 0.01 -Tunneling No -Tunneling Position (O'clock) -Tunneling Distance (cm) -Undermining/Tunneling No -Undermining/Tunneling Starts (O'clock ) -Undermining/Tunneling Ends (O'clock) -Maximum Distance (cm) -Circular Undermining No -Wound/Ulcer Outcome Not Healed -Ulcer Cleansing -Foul Odor after Cleansing -Bioengineered Tissue -Bleeding Controlled with Pressure -Treatment Response Procedure Tolerated Well -Offloading No -Type of Offloading -Assistive Device(s) -Debridement - Subq, 1st 20sq cm No -Debridement - Muscle / Fascia, 1st 20sq cm Pain Scale: 0-10 Numeric Is Patient Pain Free? Yes WC - Nurse 3 - General Ulcer D/C NN Start: 10/07/23 08:27 Freq: Status: Active Protocol: Activity Type Activity Date Activity User E-sign Co-sign Detail Recorded Client Recorded Date Recorded By Document 10/07/23 10:04 [id number] 10/07/23 10:07 Document 10/11/23 12:05 RB [id number] 10/11/23 12:09 RB Document 10/18/23 15:40 RB Desktop 10/18/23 15:42 RB Document 10/25/23 12:20 RB Desktop 10/25/23 12:21 RB Document 10/31/23 10:03 Laptop 10/31/23 10:24 JF 10/07/23 10/11/23 10/18/23 10:04 12:05 15:40 Wound Care Center Nurse 3 8-left lateral inferior foot -Ulcer Cleansing -Primary Dressing Applied -Other Dressing dakin moistened gauze -Primary Dressing Covered/Secured with Dry Gauze,Dry Gauze & Roll Gauze,Secured with Tape 7. L lateral ankle superior -Ulcer Cleansing Rinsed/ Irrigated with Saline -Other Dressing DAKINS dakins MOISTENED GAUZE moistened gauze -Primary Dressing Covered/Secured with Dry Gauze & Dry Gauze,Dry Roll Gauze, Gauze & Roll Secured with Gauze,Secured Tape with Tape 6. L medial ankle -Other Dressing [id number] dakins MOISTENED GAUZE moistened gauze -Primary Dressing Covered/Secured with Dry Gauze & Dry Gauze,Dry Roll Gauze, Gauze & Roll Secured with Gauze,Secured Tape with Tape Left -Compression Wrap -Tubular Bandage Double Layer -Size of Tubigrip Used Size E -Size E ($) 2 Treatment Response Procedure Procedure Tolerated Well Tolerated Well Vital Signs Temperature (97.8 F-99.1 F) 98 F Temperature Source Temporal Pulse Rate (60-100) 94 Pulse Location Monitor Respiratory Rate (12-18) 18 Respiratory rate source Observation Blood Pressure (90/60-120/80) 121/73 H Blood Pressure Mean (mm Hg) 89 Source Monitor Position Sitting Blood Pressure Location Left Arm Pain Scale: 0-10 Numeric Is Patient Pain Free? Yes Yes Yes WC - Visit Discharge Discharge Condition Stable Stable Stable Ambulatory Status Wheelchair Wheelchair Wheelchair Transportation Private Auto Private Auto Private Auto Accompanied by PARENTS Medication Reconcilliation completed & No No provided to patient/care provider Clinical Summary of Care Provided Yes Yes Notes: Patient tolerated HBO treatment without difficulty. Heading to the hospital to get his xray ordered by Dr Perkins. 10/25/23 10/31/23 12:20 10:03 Wound Care Center Nurse 3 8-left lateral inferior foot -Ulcer Cleansing Rinsed/ Irrigated with Saline -Primary Dressing Applied C Hydrogel ($) -Other Dressing -Primary Dressing Covered/Secured with Dry Gauze,Dry Gauze & Roll Gauze,Secured with Tape 7. L lateral ankle superior -Ulcer Cleansing -Other Dressing hydrogel -Primary Dressing Covered/Secured with Dry Gauze & Roll Gauze, Secured with Tape 6. L medial ankle -Other Dressing hydrogel -Primary Dressing Covered/Secured with Dry Gauze,Dry Gauze & Roll Gauze,Secured with Tape Left -Compression Wrap Sal Wrap -Tubular Bandage -Size of Tubigrip Used -Size E ($) Treatment Response Procedure Tolerated Well Vital Signs Temperature (97.8 F-99.1 F) Temperature Source Pulse Rate (60-100) Pulse Location Respiratory Rate (12-18) Respiratory rate source Blood Pressure (90/60-120/80) Blood Pressure Mean (mm Hg) Source Position Blood Pressure Location Pain Scale: 0-10 Numeric Is Patient Pain Free? Yes Yes WC - Visit Discharge Discharge Condition Stable Stable Ambulatory Status Wheelchair Wheelchair Transportation Private Auto Private Auto Accompanied by rubia Medication Reconcilliation completed & No provided to patient/care provider Clinical Summary of Care Provided Yes Notes: will apply sal Patient wrap after HBO completed HBO treatment dive and is heading over to get his MRI done ordered by Dr Perkins. Assessment/Plan Assessment/Plan (1) Osteomyelitis of ankle, left, acute: CODE(S): M86.172 - Other acute osteomyelitis, left ankle and foot PLAN: Exam performed Patient great completed 6 weeks IV antibiotics*(meropenem) for osteomyelitis left foot. wound significantly improved Today left lower extremity wound to medial/lateral ankle was debrided down to and including level of muscle excisionally using a 5 mm dermal curette without incident. No anesthesia due to neuropathy. Hemostasis obtained with light compression. Patient tolerated procedure well. Pre and postdebridement measurements documented nursing notes. Change dressing daily hydrogel with DSD and Tubigrip. Patient follows up weekly Patient nonweightbearing left lower extremity Patient receiving HBO therapy Blood sugar well-controlled MRI reviewed today no concern for obvious abscess or deep infection Follow-up 1 week (2) Charcot foot due to diabetes mellitus: CODE(S): E11.610 - 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 arthropathy (3) Abscess of bursa, left ankle and foot: CODE(S): M71.072 - Abscess of bursa, left ankle and foot (4) Cellulitis of left lower limb: CODE(S): L03.116 - Cellulitis of left lower limb (5) Non-pressure chronic ulcer of left 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: CODE(S): L97.322 - Non-pressure chronic ulcer of left 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 (6) Type 2 diabetes mellitus with diabetic polyneuropathy: CODE(S): E11.42 - Type 2 diabetes mellitus with diabetic polyneuropathy QUALIFIERS: Diabetes mellitus fdc insulin use: without fdc use Qualified Code(s): E11.42 - Type 2 diabetes mellitus with diabetic polyneuropathy
[2023-11-01 12:20] LABS: Bedside Glucose 159 mg/dL (74-106)
--- NOTE | 2023-11-01 12:23 | HBO.PN.PCM_ITS ---
History of Present Illness Date of Service: 11/01/23 Chief Complaint: Diabetic left foot infection with gas gangrene and osteom yelitis; Li grade 3 diabetic foot infection. History of Wound: 43-year-old male status post left Charcot reconstruction. Denies constitutional symptoms. Wound is improving today. Subjective Subjective The patient underwent his 28th hyperbaric oxygen therapy session today. The patient is scheduled for a total of 30 such sessions. Tolerance of hyperbaric oxygen therapy: Hyperbaric oxygen therapy was provided as per the facility's protocol. Hyperbaric oxygen therapy was undertaken at 2 krzysztof and 100% oxygen for 90 minutes without air breaks. The patient tolerated hyperbaric oxygen therapy well, without complaints or complications. Upon emergence from the hyperbaric chamber, the patient's vital signs remained stable. Blood sugar levels were monitored both before and after hyperbaric oxygen therapy, and found to be satisfactory. Objective Data Objective Data Vital Signs: Vital Signs Temp Pulse Resp BP O2 Del Method O2 Flow Rate 97.1 F L 95 16 128/77 H Room Air 99 11/01/23 11:25 11/01/23 11:25 11/01/23 11:25 11/01/23 11:25 11/01/23 11:25 10/07/23 00:29 Oxygen Flow Rate (L/min) 99 Oxygen Delivery Method Room Air Weight: 250 lb Body Mass Index (BMI) 33.9 Lab / Micro Data Labs: Laboratory Results - last 24 hr 11/01/23 12:01: POC Glucose 159 H Radiography Diagnostic Testing: Radiology Impression Lower Extremity MRI 10/31/23 11:00 IMPRESSION: Postsurgical changes with marked osteoarthritic and degenerative destructive changes. Diffuse marked superficial and deep subcutaneous soft tissue edema compatible with cellulitis. Study is extremely limited by metallic artifact. Electronically Signed: Fredis Govea MD at 12:22 EDT , Exam Physical Exam Const alert, oriented x3 and no apparent distress HEENT normocephalic Tympanic Membrane: TM's normal bilaterally Resp normal respiratory effort Effort and Inspection: able to speak in complete sentences Auscultation: clear to auscultation bilaterally Cardio regular rate and regular rhythm Psych mental status grossly normal, thought process normal, cooperative, affect normal and speech normal Nursing Assessment and Debridement Post-Debridement Measurements and Additional Note: Post-Debridement Measurements/Treatment - Nurse 1 - General Ulcer Assessment Start: 10/07/23 08:27 Freq: Status: Active Protocol: GWEN Activity Type Activity Date Activity User E-sign Co-sign Detail Recorded Client Recorded Date Recorded By Document 11/01/23 11:25 Desktop 11/01/23 11:37 11/01/23 11:25 WC - Today's Visit Information Type of service Follow-up Visit (Physician/ART GALLERY DIRECTOR ) Arrival Mode Wheelchair Transfer Assistance None Patient Identification Verified (Name & Yes ) Patient Requires Transmission-Based No Precautions Height and Weight Body Mass Index (BMI) 33.9 BMI Classification Obese Vital Signs Temperature (97.8 F-99.1 F) 97.1 F L Temperature Source Temporal Pulse Rate (60-100) 95 Pulse Location Monitor Respiratory Rate (12-18) 16 Respiratory rate source Observation Oxygen Delivery Method Room Air Blood Pressure (90/60-120/80) 128/77 H Blood Pressure Mean (mm Hg) 94 Source Monitor Position Sitting Blood Pressure Location Left Arm History Since Last Visit- (Skip if this is Patient's initial visit) Have you changed medications since your No last visit? Any new allergies or adverse reactions No Had a fall/change in ADL's that may No increase risk of falls Signs or symptoms of abuse and/or No neglect since last visit Have you been in the hospital since your No last visit? Has dressing in place as prescribed Yes Has compression in place as prescribed Yes Has offloadiing in place as prescribed Yes Experienced any changes in pain level or No management Left Footwear Other Footwear (Comment) Pain Scale: 0-10 Numeric Is Patient Pain Free? Yes - Nurse 1 - General Ulcer Measurement Start: 10/07/23 08:27 Freq: Status: Active Protocol: Activity Type Activity Date Activity User E-sign Co-sign Detail Recorded Client Recorded Date Recorded By Document 11/01/23 11:25 [employer] 11/01/23 11:37 11/01/23 11:25 Wound Center Nurse 1 8-left lateral inferior foot -Current Size (cm) - Length 0.1 -Current Size (cm) - Width 0.1 -Current Size (cm) - Depth 0.1 -Total Square Cm 0.01 -Photo Taken No -Tunneling No -Undermining/Tunneling No -Circular Undermining No -Exudate Amt None Present 7. L lateral ankle superior -Combined with other wound No -Current Size (cm) - Length 0.1 -Current Size (cm) - Width 0.1 -Current Size (cm) - Depth 0.1 -Total Square Cm 0.01 -Photo Taken No -Undermining/Tunneling No -Granulation Quality [place] 6. L medial ankle -Current Size (cm) - Length 0.1 -Current Size (cm) - Width 0.1 -Current Size (cm) - Depth 0.1 -Total Square Cm 0.01 -Photo Taken No -Epithelialization Small 1-33% -Tunneling No -Undermining/Tunneling No -Circular Undermining No -Exudate Type Yellow/Green -Wound Margin Distinct, Outline Attached -Granulation Amt Small (1-33%) -Granulation Quality [place] -Slough/Fibrin No -Structure Exposed N/A -Texture ([place]-wound Skin Appearance) Assessed -Moisture ([place]-wound Skin Appearance) Assessed -Color ([place]-wound Skin Appearance) Assessed -Temperature ([place]-wound Skin No Abnormality Appearance) (Pt Warm) -Ulcer Cleansing Rinsed/ Irrigated with Saline -Foul Odor after Cleansing No -Anesthetic Used 5% Lidocaine Gel WC - Nurse 2 - General Ulcer CM Notes Start: 10/07/23 08:27 Freq: Status: Active Protocol: Activity Type Activity Date Activity User E-sign Co-sign Detail Recorded Client Recorded Date Recorded By Document 11/01/23 11:41 MW Desktop 11/01/23 11:48 MW 11/01/23 11:41 Wound Center Nurse 2 8-left lateral inferior foot -Time 11:41 -Correct Patient Yes -Correct Side, Site, Position Yes -Correct Procedure Yes -Procedure Performed No -Post Debridement (cm) - Length 0 -Post Debridement (cm) - Width 0 -Total Square (Post) (cm) 0 -Tunneling No -Undermining/Tunneling No -Circular Undermining No -Wound/Ulcer Outcome Healed- Epithelialized 7. L lateral ankle superior -Time 11:42 -Correct Patient Yes -Correct Side, Site, Position Yes -Correct Procedure Yes -Procedure Performed Yes -Type of Procedure Debridement -Clinical Debridement Subcutaneous -Tissue Removed Subcutaneous -Post Debridement (cm) - Length 0.1 -Post Debridement (cm) - Width 0.1 -Post Debridement (cm) - Depth 0.1 -Total Square (Post) (cm) 0.01 -Area of Debridement (cm) - Length 0.1 -Area of Debridement (cm) - Width 0.1 -Total Square (Area) (cm) 0.01 -Tunneling No -Undermining/Tunneling No -Circular Undermining No -Wound/Ulcer Outcome Not Healed -Ulcer Cleansing Rinsed/ Irrigated with Saline -Foul Odor after Cleansing No -Bioengineered Tissue No -Bleeding Controlled with Pressure -Treatment Response Procedure Tolerated Well -Offloading No -Debridement - Subq, 1st 20sq cm Yes 6. L medial ankle -Time 11:43 -Correct Patient Yes -Correct Side, Site, Position Yes -Correct Procedure Yes -Procedure Performed Yes -Type of Procedure Debridement -Clinical Debridement Subcutaneous -Tissue Removed Subcutaneous -Post Debridement (cm) - Length 0.1 -Post Debridement (cm) - Width 0.1 -Post Debridement (cm) - Depth 0.1 -Total Square (Post) (cm) 0.01 -Area of Debridement (cm) - Length 0.1 -Area of Debridement (cm) - Width 0.1 -Total Square (Area) (cm) 0.01 -Tunneling No -Undermining/Tunneling No -Circular Undermining No -Wound/Ulcer Outcome Not Healed -Bleeding Controlled with Pressure -Treatment Response Procedure Tolerated Well -Offloading No -Debridement - Subq, 1st 20sq cm No Pain Scale: 0-10 Numeric Is Patient Pain Free? Yes - Nurse 3 - General Ulcer D/C NN Start: 10/07/23 08:27 Freq: Status: Active Protocol: Activity Type Activity Date Activity User E-sign Co-sign Detail Recorded Client Recorded Date Recorded By Document 10/31/23 10:03 Laptop 10/31/23 10:24 Document 11/01/23 11:58 Desktop 11/01/23 11:59 KW 10/31/23 11/01/23 10:03 11:58 Wound Care Center Nurse 3 7. L lateral ankle superior -Primary Dressing Covered/Secured with Dry Gauze & Roll Gauze, Secured with Tape 6. L medial ankle -Primary Dressing Covered/Secured with Dry Gauze Left -Compression Wrap Sal Wrap Sal Wrap Pain Scale: 0-10 Numeric Is Patient Pain Free? Yes Yes WC - Visit Discharge Discharge Condition Stable Stable Ambulatory Status Wheelchair Wheelchair Transportation Private Auto Private Auto Accompanied by rubia Medication Reconcilliation completed & No provided to patient/care provider Clinical Summary of Care Provided Yes Notes: Patient completed HBO dive and is heading over to get his MRI done ordered by Dr Perkins. Assessment/Plan Assessment/Plan (1) Osteomyelitis of ankle or foot, left, acute: CODE(S): M86.172 - Other acute osteomyelitis, left ankle and foot (2) Osteomyelitis of ankle, left, acute: CODE(S): M86.172 - Other acute osteomyelitis, left ankle and foot (3) Abscess of bursa, left ankle and foot: CODE(S): M71.072 - Abscess of bursa, left ankle and foot (4) Cellulitis of left lower limb: CODE(S): L03.116 - Cellulitis of left lower limb (5) Charcot foot due to diabetes mellitus: CODE(S): E11.610 - 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 arthropathy (6) Non-pressure chronic ulcer of left 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: CODE(S): L97.322 - Non-pressure chronic ulcer of left 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 (7) Other acute postprocedural pain: CODE(S): G89.18 - Other acute postprocedural pain (8) Type 2 diabetes mellitus with diabetic polyneuropathy: CODE(S): E11.42 - Type 2 diabetes mellitus with diabetic polyneuropathy QUALIFIERS: 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 insulin use: without half-way use Qualified Code(s): E11.42 - Type 2 diabetes mellitus with diabetic polyneuropathy (9) Non-pressure chronic ulcer of other part of left foot with necrosis of muscle: CODE(S): L97.523 - Non-pressure chronic ulcer of other part of left foot with necrosis of muscle (10) Gas gangrene of foot: CODE(S): A48.0 - Gas gangrene (11) Diabetic infection of left foot: CODE(S): E11.628 - Type 2 diabetes mellitus with other skin complications; L08.9 - Local infection of the skin and subcutaneous tissue, unspecified (12) Non-pressure chronic ulcer of other part of left foot with necrosis of bone: CODE(S): L97.524 - Non-pressure chronic ulcer of other part of left foot with necrosis of bone (13) Cellulitis: CODE(S): L03.90 - Cellulitis, unspecified QUALIFIERS: Site of cellulitis: extremity Site of cellulitis of extremity: lower extremity Laterality: left Qualified Code(s): L03.116 - Cellulitis of left lower limb (14) Hypertension: CODE(S): I10 - Essential (primary) hypertension QUALIFIERS: Hypertension type: primary hypertension Qualified Code(s): I10 - Essential (primary) hypertension PLAN: Plan The patient appears to be tolerating hyperbaric oxygen therapy well, which will be continued as per their medical treatment plan.
[2023-11-01 12:37] VITALS: BP 113/68; BP 126/71; PULSE 81; PULSE 84; RESP 16; TEMP 36; TEMP 36.2
[2023-11-01 14:33] LABS: Bedside Glucose 136 mg/dL (74-106)
--- NOTE | 2023-11-01 14:45 | RAD_ITS ---
STUDY: X-RAY - LEFT FOOT CLINICAL: Male, 43 years old. Charcot joint. Follow-up. TECHNIQUE: 3 view(s) of the foot. COMPARISON: 10/07/2023. FINDINGS: Stable osteopenia, marked Charcot changes of the tibiotalar joint, subtalar joint, midfoot and tarsometatarsal joints, unaltered. Fusion at the tibiotalar and subtalar joint with long cancellus screw through the calcaneus extending to the cuboid, unaltered. Multiple healed fractures of the second through fifth metatarsals are unchanged. Stable marked diffuse soft tissue swelling. Multiple shards of bone in the soft tissues adjacent to the Charcot changes, unaltered. RAD/Foot min 3 Views IMPRESSION: Stable ORIF with diffuse marked Charcot changes and diffuse soft tissue swelling. Electronically Signed: Fredis Govea MD at 9:29 EDT ,
--- NOTE | 2023-11-01 14:45 | RAD_ITS ---
STUDY: X-RAY - LEFT ANKLE REASON FOR EXAM: Male, 43 years old. Charcot joint. Follow-up. TECHNIQUE: 3 view(s) of the ankle. COMPARISON: 10/07/2023 FINDINGS: Stable ORIF of distal tibiofibular joint and subtalar joint with long cancellus screw extending through the calcaneus to the cuboid. Marked Charcot changes of the tibiotalar joint, subtalar joint, talonavicular joint, midfoot and tarsometatarsal joints with bone fragments adjacent to the Charcot changes. Diffuse moderate to severe soft tissue swelling, unaltered. RAD/Ankle min 3 Views IMPRESSION: No interval change in ORIF of left ankle with marked Charcot changes and diffuse moderate to marked soft tissue swelling. Electronically Signed: Fredis Govea MD at 9:44 EDT ,
--- NOTE | 2023-11-02 12:39 | HBO.PN.PCM_ITS ---
History of Present Illness Date of Service: 11/02/23 Chief Complaint: Diabetic left foot infection with gas gangrene and osteom yelitis; Li grade 3 diabetic foot infection. History of Wound: 43-year-old male status post left Charcot reconstruction. Denies constitutional symptoms. Wound is improving today. Subjective Subjective The patient underwent his 29th hyperbaric oxygen therapy session today. The patient is scheduled for a total of 30 such sessions. Tolerance of hyperbaric oxygen therapy: Hyperbaric oxygen therapy was provided as per the facility's protocol. Hyperbaric oxygen therapy was undertaken at 2 krzysztof and 100% oxygen for 90 minutes without air breaks. The patient tolerated hyperbaric oxygen therapy well, without complaints or complications. Upon emergence from the hyperbaric chamber, the patient's vital signs remained stable. Blood sugar levels were monitored both before and after hyperbaric oxygen therapy, and found to be satisfactory. Objective Data Objective Data Vital Signs: Vital Signs Temp Pulse Resp BP O2 Del Method O2 Flow Rate 97.1 F L 84 16 126/71 H Room Air 99 11/01/23 12:37 11/01/23 12:37 11/01/23 12:37 11/01/23 12:37 11/01/23 11:25 10/07/23 00:29 Oxygen Flow Rate (L/min) 99 Oxygen Delivery Method Room Air Weight: 250 lb Body Mass Index (BMI) 33.9 Lab / Micro Data Labs: Laboratory Results - last 24 hr 11/01/23 14:13: POC Glucose 136 H Exam Physical Exam Const alert, oriented x3 and no apparent distress HEENT normocephalic Tympanic Membrane: TM's normal bilaterally Resp normal respiratory effort Effort and Inspection: able to speak in complete sentences Auscultation: clear to auscultation bilaterally Cardio regular rate and regular rhythm Psych mental status grossly normal, thought process normal, cooperative, affect normal and speech normal Nursing Assessment and Debridement Post-Debridement Measurements and Additional Note: Post-Debridement Measurements/Treatment - Nurse 1 - General Ulcer Assessment Start: 10/07/23 08:27 Freq: Status: Active Protocol: [email or web address] Activity Type Activity Date Activity User E-sign Co-sign Detail Recorded Client Recorded Date Recorded By Document 11/01/23 11:25 Desktop 11/01/23 11:37 11/01/23 11:25 - Today's Visit Information Type of service Follow-up Visit (Physician/TEACHING DIETITIAN ) Arrival Mode Wheelchair Transfer Assistance None Patient Identification Verified (Name & Yes ) Patient Requires Transmission-Based No Precautions Height and Weight Body Mass Index (BMI) 33.9 BMI Classification Obese Vital Signs Temperature (97.8 F-99.1 F) 97.1 F L Temperature Source Temporal Pulse Rate (60-100) 95 Pulse Location Monitor Respiratory Rate (12-18) 16 Respiratory rate source Observation Oxygen Delivery Method Room Air Blood Pressure (90/60-120/80) 128/77 H Blood Pressure Mean (mm Hg) 94 Source Monitor Position Sitting Blood Pressure Location Left Arm History Since Last Visit- (Skip if this is Patient's initial visit) Have you changed medications since your No last visit? Any new allergies or adverse reactions No Had a fall/change in ADL's that may No increase risk of falls Signs or symptoms of abuse and/or No neglect since last visit Have you been in the hospital since your No last visit? Has dressing in place as prescribed Yes Has compression in place as prescribed Yes Has offloadiing in place as prescribed Yes Experienced any changes in pain level or No management Left Footwear Other Footwear (Comment) Pain Scale: 0-10 Numeric Is Patient Pain Free? Yes - Nurse 1 - General Ulcer Measurement Start: 10/07/23 08:27 Freq: Status: Active Protocol: Activity Type Activity Date Activity User E-sign Co-sign Detail Recorded Client Recorded Date Recorded By Document 11/01/23 11:25 Desktop 11/01/23 11:37 11/01/23 11:25 Wound Center Nurse 1 8-left lateral inferior foot -Current Size (cm) - Length 0.1 -Current Size (cm) - Width 0.1 -Current Size (cm) - Depth 0.1 -Total Square Cm 0.01 -Photo Taken No -Tunneling No -Undermining/Tunneling No -Circular Undermining No -Exudate Amt None Present 7. L lateral ankle superior -Combined with other wound No -Current Size (cm) - Length 0.1 -Current Size (cm) - Width 0.1 -Current Size (cm) - Depth 0.1 -Total Square Cm 0.01 -Photo Taken No -Undermining/Tunneling No -Granulation Quality [place] 6. L medial ankle -Current Size (cm) - Length 0.1 -Current Size (cm) - Width 0.1 -Current Size (cm) - Depth 0.1 -Total Square Cm 0.01 -Photo Taken No -Epithelialization Small 1-33% -Tunneling No -Undermining/Tunneling No -Circular Undermining No -Exudate Type Yellow/Green -Wound Margin Distinct, Outline Attached -Granulation Amt Small (1-33%) -Granulation Quality [place] -Slough/Fibrin No -Structure Exposed N/A -Texture ([place]-wound Skin Appearance) Assessed -Moisture ([place]-wound Skin Appearance) Assessed -Color ([place]-wound Skin Appearance) Assessed -Temperature ([place]-wound Skin No Abnormality Appearance) (Pt Warm) -Ulcer Cleansing Rinsed/ Irrigated with Saline -Foul Odor after Cleansing No -Anesthetic Used 5% Lidocaine Gel WC - Nurse 2 - General Ulcer CM Notes Start: 10/07/23 08:27 Freq: Status: Active Protocol: Activity Type Activity Date Activity User E-sign Co-sign Detail Recorded Client Recorded Date Recorded By Document 11/01/23 11:41 MW Desktop 11/01/23 11:48 MW 11/01/23 11:41 Wound Center Nurse 2 8-left lateral inferior foot -Time 11:41 -Correct Patient Yes -Correct Side, Site, Position Yes -Correct Procedure Yes -Procedure Performed No -Post Debridement (cm) - Length 0 -Post Debridement (cm) - Width 0 -Total Square (Post) (cm) 0 -Tunneling No -Undermining/Tunneling No -Circular Undermining No -Wound/Ulcer Outcome Healed- Epithelialized 7. L lateral ankle superior -Time 11:42 -Correct Patient Yes -Correct Side, Site, Position Yes -Correct Procedure Yes -Procedure Performed Yes -Type of Procedure Debridement -Clinical Debridement Subcutaneous -Tissue Removed Subcutaneous -Post Debridement (cm) - Length 0.1 -Post Debridement (cm) - Width 0.1 -Post Debridement (cm) - Depth 0.1 -Total Square (Post) (cm) 0.01 -Area of Debridement (cm) - Length 0.1 -Area of Debridement (cm) - Width 0.1 -Total Square (Area) (cm) 0.01 -Tunneling No -Undermining/Tunneling No -Circular Undermining No -Wound/Ulcer Outcome Not Healed -Ulcer Cleansing Rinsed/ Irrigated with Saline -Foul Odor after Cleansing No -Bioengineered Tissue No -Bleeding Controlled with Pressure -Treatment Response Procedure Tolerated Well -Offloading No -Debridement - Subq, 1st 20sq cm Yes 6. L medial ankle -Time 11:43 -Correct Patient Yes -Correct Side, Site, Position Yes -Correct Procedure Yes -Procedure Performed Yes -Type of Procedure Debridement -Clinical Debridement Subcutaneous -Tissue Removed Subcutaneous -Post Debridement (cm) - Length 0.1 -Post Debridement (cm) - Width 0.1 -Post Debridement (cm) - Depth 0.1 -Total Square (Post) (cm) 0.01 -Area of Debridement (cm) - Length 0.1 -Area of Debridement (cm) - Width 0.1 -Total Square (Area) (cm) 0.01 -Tunneling No -Undermining/Tunneling No -Circular Undermining No -Wound/Ulcer Outcome Not Healed -Bleeding Controlled with Pressure -Treatment Response Procedure Tolerated Well -Offloading No -Debridement - Subq, 1st 20sq cm No Pain Scale: 0-10 Numeric Is Patient Pain Free? Yes - Nurse 3 - General Ulcer D/C NN Start: 10/07/23 08:27 Freq: Status: Active Protocol: Activity Type Activity Date Activity User E-sign Co-sign Detail Recorded Client Recorded Date Recorded By Document 10/31/23 10:03 Laptop 10/31/23 10:24 Document 11/01/23 11:58 KW Desktop 11/01/23 11:59 KW 10/31/23 11/01/23 10:03 11:58 Wound Care Center Nurse 3 7. L lateral ankle superior -Primary Dressing Covered/Secured with Dry Gauze & Roll Gauze, Secured with Tape 6. L medial ankle -Primary Dressing Covered/Secured with Dry Gauze Left -Compression Wrap Sal Wrap Sal Wrap Pain Scale: 0-10 Numeric Is Patient Pain Free? Yes Yes - Visit Discharge Discharge Condition Stable Stable Ambulatory Status Wheelchair Wheelchair Transportation Private Auto Private Auto Accompanied by rubia Medication Reconcilliation completed & No provided to patient/care provider Clinical Summary of Care Provided Yes Notes: Patient completed HBO dive and is heading over to get his MRI done ordered by Dr Perkins. Assessment/Plan Assessment/Plan (1) Osteomyelitis of ankle or foot, left, acute: CODE(S): M86.172 - Other acute osteomyelitis, left ankle and foot (2) Osteomyelitis of ankle, left, acute: CODE(S): M86.172 - Other acute osteomyelitis, left ankle and foot (3) Abscess of bursa, left ankle and foot: CODE(S): M71.072 - Abscess of bursa, left ankle and foot (4) Cellulitis of left lower limb: CODE(S): L03.116 - Cellulitis of left lower limb (5) Charcot foot due to diabetes mellitus: CODE(S): E11.610 - 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 arthropathy (6) Non-pressure chronic ulcer of left 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: CODE(S): L97.322 - Non-pressure chronic ulcer of left 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 (7) Other acute postprocedural pain: CODE(S): G89.18 - Other acute postprocedural pain (8) Type 2 diabetes mellitus with diabetic polyneuropathy: CODE(S): E11.42 - Type 2 diabetes mellitus with diabetic polyneuropathy QUALIFIERS: 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 insulin use: without assisted use Qualified Code(s): E11.42 - Type 2 diabetes mellitus with diabetic polyneuropathy (9) Non-pressure chronic ulcer of other part of left foot with necrosis of muscle: CODE(S): L97.523 - Non-pressure chronic ulcer of other part of left foot with necrosis of muscle (10) Gas gangrene of foot: CODE(S): A48.0 - Gas gangrene (11) Diabetic infection of left foot: CODE(S): E11.628 - Type 2 diabetes mellitus with other skin complications; L08.9 - Local infection of the skin and subcutaneous tissue, unspecified (12) Non-pressure chronic ulcer of other part of left foot with necrosis of bone: CODE(S): L97.524 - Non-pressure chronic ulcer of other part of left foot with necrosis of bone (13) Cellulitis: CODE(S): L03.90 - Cellulitis, unspecified QUALIFIERS: Site of cellulitis: extremity Site of cellulitis of extremity: lower extremity Laterality: left Qualified Code(s): L03.116 - Cellulitis of left lower limb (14) Hypertension: CODE(S): I10 - Essential (primary) hypertension QUALIFIERS: Hypertension type: primary hypertension Qualified Code(s): I10 - Essential (primary) hypertension PLAN: Plan The patient appears to be tolerating hyperbaric oxygen therapy well, which will be continued as per their medical treatment plan.
[2023-11-02 12:44] LABS: Bedside Glucose 177 mg/dL (74-106)
[2023-11-02 12:46] VITALS: BP 136/78; BP 142/73; PULSE 86; PULSE 89; RESP 16; TEMP 35.9
[2023-11-02 15:03] LABS: Bedside Glucose 177 mg/dL (74-106)
[2023-11-03 13:08] LABS: Bedside Glucose 148 mg/dL (74-106)
[2023-11-03 13:10] VITALS: BP 118/70; BP 131/76; PULSE 83; PULSE 89; RESP 16; TEMP 36.1; TEMP 36.2
--- NOTE | 2023-11-03 13:24 | PCM.HBO.PN ---
History of Present Illness Date of Service: 11/03/23 Chief Complaint: Diabetic left foot infection with gas gangrene and osteomyelitis; Li grade 3 diabetic foot infection. History of Wound: 43-year-old male status post left Charcot reconstruction. Denies constitutional symptoms. Wound is improving today. Subjective Subjective The patient underwent his 30th hyperbaric oxygen therapy session today. The patient is scheduled for a total of 30 such sessions. Tolerance of hyperbaric oxygen therapy: Hyperbaric oxygen therapy was provided as per the facility's protocol. Hyperbaric oxygen therapy was undertaken at 2 krzysztof and 100% oxygen for 90 minutes without air breaks. The patient tolerated hyperbaric oxygen therapy well, without complaints or complications. Upon emergence from the hyperbaric chamber, the patient's vital signs remained stable. Blood sugar levels were monitored both before and after hyperbaric oxygen therapy, and found to be satisfactory. Objective Data Objective Data Vital Signs: Vital Signs Temp Pulse Resp BP O2 Del Method O2 Flow Rate 96.7 F L 86 16 142/73 H Room Air 99 11/02/23 12:46 11/02/23 12:46 11/02/23 12:46 11/02/23 12:46 11/01/23 11:25 10/07/23 00:29 Oxygen Flow Rate (L/min) 99 Oxygen Delivery Method Room Air Weight: 250 lb Body Mass Index (BMI) 33.9 Lab / Micro Data Labs: Laboratory Results - last 24 hr 11/02/23 14:44: POC Glucose 177 H 11/03/23 12:47: POC Glucose 148 H Radiography Diagnostic Testing: Radiology Impression Ankle X-Ray 11/01/23 14:45 IMPRESSION: No interval change in ORIF of left ankle with marked Charcot changes and diffuse moderate to marked soft tissue swelling. Electronically Signed: Fredis Govea MD at 9:44 EDT , Foot X-Ray 11/01/23 14:45 IMPRESSION: Stable ORIF with diffuse marked Charcot changes and diffuse soft tissue swelling. Electronically Signed: Fredis Govea MD at 9:29 EDT , Exam Physical Exam Const alert, oriented x3 and no apparent distress HEENT normocephalic Tympanic Membrane: TM's normal bilaterally Resp normal respiratory effort Effort and Inspection: able to speak in complete sentences Auscultation: clear to auscultation bilaterally Cardio regular rate and regular rhythm Psych mental status grossly normal, thought process normal, cooperative, affect normal and speech normal Nursing Assessment and Debridement Post-Debridement Measurements and Additional Note: Post-Debridement Measurements/Treatment - Nurse 1 - General Ulcer Assessment Start: 10/07/23 08:27 Freq: Status: Active Protocol: GWEN Activity Type Activity Date Activity User E-sign Co-sign Detail Recorded Client Recorded Date Recorded By Document 11/01/23 11:25 GM Desktop 11/01/23 11:37 GM 11/01/23 11:25 WC - Today's Visit Information Type of service Follow-up Visit (Physician/MEDICAL MANAGER ) Arrival Mode Wheelchair Transfer Assistance None Patient Identification Verified (Name & Yes ) Patient Requires Transmission-Based No Precautions Height and Weight Body Mass Index (BMI) 33.9 BMI Classification Obese Vital Signs Temperature (97.8 F-99.1 F) 97.1 F L Temperature Source Temporal Pulse Rate (60-100) 95 Pulse Location Monitor Respiratory Rate (12-18) 16 Respiratory rate source Observation Oxygen Delivery Method Room Air Blood Pressure (90/60-120/80) 128/77 H Blood Pressure Mean (mm Hg) 94 Source Monitor Position Sitting Blood Pressure Location Left Arm History Since Last Visit- (Skip if this is Patient's initial visit) Have you changed medications since your No last visit? Any new allergies or adverse reactions No Had a fall/change in ADL's that may No increase risk of falls Signs or symptoms of abuse and/or No neglect since last visit Have you been in the hospital since your No last visit? Has dressing in place as prescribed Yes Has compression in place as prescribed Yes Has offloadiing in place as prescribed Yes Experienced any changes in pain level or No management Left Footwear Other Footwear (Comment) Pain Scale: 0-10 Numeric Is Patient Pain Free? Yes - Nurse 1 - General Ulcer Measurement Start: 10/07/23 08:27 Freq: Status: Active Protocol: Activity Type Activity Date Activity User E-sign Co-sign Detail Recorded Client Recorded Date Recorded By Document 11/01/23 11:25 GM Desktop 11/01/23 11:37 GM 11/01/23 11:25 Wound Center Nurse 1 8-left lateral inferior foot -Current Size (cm) - Length 0.1 -Current Size (cm) - Width 0.1 -Current Size (cm) - Depth 0.1 -Total Square Cm 0.01 -Photo Taken No -Tunneling No -Undermining/Tunneling No -Circular Undermining No -Exudate Amt None Present 7. L lateral ankle superior -Combined with other wound No -Current Size (cm) - Length 0.1 -Current Size (cm) - Width 0.1 -Current Size (cm) - Depth 0.1 -Total Square Cm 0.01 -Photo Taken No -Undermining/Tunneling No -Granulation Quality [place] 6. L medial ankle -Current Size (cm) - Length 0.1 -Current Size (cm) - Width 0.1 -Current Size (cm) - Depth 0.1 -Total Square Cm 0.01 -Photo Taken No -Epithelialization Small 1-33% -Tunneling No -Undermining/Tunneling No -Circular Undermining No -Exudate Type Yellow/Green -Wound Margin Distinct, Outline Attached -Granulation Amt Small (1-33%) -Granulation Quality [place] -Slough/Fibrin No -Structure Exposed N/A -Texture ([place]-wound Skin Appearance) Assessed -Moisture ([place]-wound Skin Appearance) Assessed -Color ([place]-wound Skin Appearance) Assessed -Temperature ([place]-wound Skin No Abnormality Appearance) (Pt Warm) -Ulcer Cleansing Rinsed/ Irrigated with Saline -Foul Odor after Cleansing No -Anesthetic Used 5% Lidocaine Gel WC - Nurse 2 - General Ulcer CM Notes Start: 10/07/23 08:27 Freq: Status: Active Protocol: Activity Type Activity Date Activity User E-sign Co-sign Detail Recorded Client Recorded Date Recorded By Document 11/01/23 11:41 MW Desktop 11/01/23 11:48 MW 11/01/23 11:41 Wound Center Nurse 2 8-left lateral inferior foot -Time 11:41 -Correct Patient Yes -Correct Side, Site, Position Yes -Correct Procedure Yes -Procedure Performed No -Post Debridement (cm) - Length 0 -Post Debridement (cm) - Width 0 -Total Square (Post) (cm) 0 -Tunneling No -Undermining/Tunneling No -Circular Undermining No -Wound/Ulcer Outcome Healed- Epithelialized 7. L lateral ankle superior -Time 11:42 -Correct Patient Yes -Correct Side, Site, Position Yes -Correct Procedure Yes -Procedure Performed Yes -Type of Procedure Debridement -Clinical Debridement Subcutaneous -Tissue Removed Subcutaneous -Post Debridement (cm) - Length 0.1 -Post Debridement (cm) - Width 0.1 -Post Debridement (cm) - Depth 0.1 -Total Square (Post) (cm) 0.01 -Area of Debridement (cm) - Length 0.1 -Area of Debridement (cm) - Width 0.1 -Total Square (Area) (cm) 0.01 -Tunneling No -Undermining/Tunneling No -Circular Undermining No -Wound/Ulcer Outcome Not Healed -Ulcer Cleansing Rinsed/ Irrigated with Saline -Foul Odor after Cleansing No -Bioengineered Tissue No -Bleeding Controlled with Pressure -Treatment Response Procedure Tolerated Well -Offloading No -Debridement - Subq, 1st 20sq cm Yes 6. L medial ankle -Time 11:43 -Correct Patient Yes -Correct Side, Site, Position Yes -Correct Procedure Yes -Procedure Performed Yes -Type of Procedure Debridement -Clinical Debridement Subcutaneous -Tissue Removed Subcutaneous -Post Debridement (cm) - Length 0.1 -Post Debridement (cm) - Width 0.1 -Post Debridement (cm) - Depth 0.1 -Total Square (Post) (cm) 0.01 -Area of Debridement (cm) - Length 0.1 -Area of Debridement (cm) - Width 0.1 -Total Square (Area) (cm) 0.01 -Tunneling No -Undermining/Tunneling No -Circular Undermining No -Wound/Ulcer Outcome Not Healed -Bleeding Controlled with Pressure -Treatment Response Procedure Tolerated Well -Offloading No -Debridement - Subq, 1st 20sq cm No Pain Scale: 0-10 Numeric Is Patient Pain Free? Yes WC - Nurse 3 - General Ulcer D/C NN Start: 10/07/23 08:27 Freq: Status: Active Protocol: Activity Type Activity Date Activity User E-sign Co-sign Detail Recorded Client Recorded Date Recorded By Document 11/01/23 11:58 KW Desktop 11/01/23 11:59 KW 03/26/24 11:58 Wound Care Center Nurse 3 7. L lateral ankle superior -Primary Dressing Covered/Secured with Dry Gauze & Roll Gauze, Secured with Tape 6. L medial ankle -Primary Dressing Covered/Secured with Dry Gauze Left -Compression Wrap Sal Wrap Pain Scale: 0-10 Numeric Is Patient Pain Free? Yes WC - Visit Discharge Discharge Condition Stable Ambulatory Status Wheelchair Transportation Private Auto Medication Reconcilliation completed & No provided to patient/care provider Clinical Summary of Care Provided Yes Assessment/Plan Assessment/Plan (1) Osteomyelitis of ankle or foot, left, acute: CODE(S): M86.172 - Other acute osteomyelitis, left ankle and foot (2) Osteomyelitis of ankle, left, acute: CODE(S): M86.172 - Other acute osteomyelitis, left ankle and foot (3) Abscess of bursa, left ankle and foot: CODE(S): M71.072 - Abscess of bursa, left ankle and foot (4) Cellulitis of left lower limb: CODE(S): L03.116 - Cellulitis of left lower limb (5) Charcot foot due to diabetes mellitus: CODE(S): E11.610 - 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 arthropathy (6) Non-pressure chronic ulcer of left 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: CODE(S): L97.322 - Non-pressure chronic ulcer of left 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 (7) Other acute postprocedural pain: CODE(S): G89.18 - Other acute postprocedural pain (8) Type 2 diabetes mellitus with diabetic polyneuropathy: CODE(S): E11.42 - Type 2 diabetes mellitus with diabetic polyneuropathy QUALIFIERS: 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: without petroleum terminal plant operator use Qualified Code(s): E11.42 - Type 2 diabetes mellitus with diabetic polyneuropathy (9) Non-pressure chronic ulcer of other part of left foot with necrosis of muscle: CODE(S): L97.523 - Non-pressure chronic ulcer of other part of left foot with necrosis of muscle (10) Gas gangrene of foot: CODE(S): A48.0 - Gas gangrene (11) Diabetic infection of left foot: CODE(S): E11.628 - Type 2 diabetes mellitus with other skin complications; L08.9 - Local infection of the skin and subcutaneous tissue, unspecified (12) Non-pressure chronic ulcer of other part of left foot with necrosis of bone: CODE(S): L97.524 - Non-pressure chronic ulcer of other part of left foot with necrosis of bone (13) Cellulitis: CODE(S): L03.90 - Cellulitis, unspecified QUALIFIERS: Site of cellulitis: extremity Site of cellulitis of extremity: lower extremity Laterality: left Qualified Code(s): L03.116 - Cellulitis of left lower limb (14) Hypertension: CODE(S): I10 - Essential (primary) hypertension QUALIFIERS: Hypertension type: primary hypertension Qualified Code(s): I10 - Essential (primary) hypertension PLAN: Plan The patient appears to be tolerating hyperbaric oxygen therapy well, which will be continued as per their medical treatment plan.
[2023-11-03 15:36] LABS: Bedside Glucose 187 mg/dL (74-106)
== END 2023-11-06 23:59 | disposition home or self-care (01) ==
LOC: WC 13:00
PROVIDERS: PCP Student in an Organized Health Care Education/Training Program; Referring Provider Surgery; Visit Provider Podiatrist
DX: E11.69 Type 2 diabetes mellitus with other specified complication (principal); A48.0 Gas gangrene; L97.524 Non-pressure chronic ulcer of other part of left foot with necrosis of bone; E11.621 Type 2 diabetes mellitus with foot ulcer; E11.622 Type 2 diabetes mellitus with other skin ulcer; L97.322 Non-pressure chronic ulcer of left 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; M86.172 Other acute osteomyelitis, left ankle and foot; E11.42 Type 2 diabetes mellitus with diabetic polyneuropathy; E11.610 Type 2 diabetes mellitus with diabetic neuropathic arthropathy; L03.116 Cellulitis of left lower limb; L02.416 Cutaneous abscess of left lower limb; I10 Essential (primary) hypertension
CPT/HCPCS: 11042; 11043; 73610; 73630; 73721; 82962; 99183; G0277

== ENCOUNTER → 2023-11-10 | Outpatient (CLI) | payer BC, SELFPAY | END | disposition home or self-care (01) | PROVIDERS: PCP Student in an Organized Health Care Education/Training Program; Visit Provider Podiatrist | DX: L97.522 Non-pressure chronic ulcer of other part of left foot with fat layer exposed (principal) | CPT/HCPCS: 87070; 87075; 87205 ==

== ENCOUNTER → 2023-11-14 | Outpatient (CLI) | payer BC, SELFPAY ==
[2023-11-14 10:06] LABS: Absolute Neutrophil Count 3.3 X10^3/uL (2.0-7.7); Basophil# 0.01 X10^3/uL; Basophil% 0.2 % (0-1); Eosinophil# 0.38 X10^3/uL; Eosinophils% 7.8 % (0-5); Hematocrit 37.2 % (40-54); Hemoglobin 11.2 g/dL (13.0-16.5); Lymphocyte % 18.4 % (19-41); Mean Corp Hgb Conc 30.1 g/dL (32-36); Mean Corpuscular Volume 73.2 fL (80-94); Mean Platelet Vol. 8.8 fl (6.2-12.0); Monocyte# 0.33 X10^3/uL; Monocyte% 6.7 % (0-10); NRBC Flagged by Analyzer 0 % (0-5); Neutrophil # 3.25 X10^3/uL (2.7-7.7); Neutrophil % 66.5 % (47-70); Platelet Count 256 K/mm3 (150-450); RBC Distribution Width CV 17.8 % (11.6-14.6); RBC Distribution Width SD 46.9 fl (35.1-43.9); Red Blood Count 5.08 M/mm3 (4.6-6.2); White Blood Count 4.9 K/mm3 (4.4-11.0)
[2023-11-14 10:07] LABS: Erythrocyte Sedimentation Rate 23 mm/hr (0-20)
[2023-11-14 10:17] LABS: Hemoglobin A1c 6.3 % (3.8-5.6)
[2023-11-14 10:20] LABS: ALB/GLOB Ratio 0.7 RATIO (0.9-2.4); AST(SGOT) 18 U/L (15-37); Alanine Aminotransfer ALT/SGPT 17 U/L (16-61); Alkaline Phosphatase 89 U/L (45-117); Anion Gap 5 (5-15); BUN 16 mg/dL (7-18); BUN/Creat Ratio 17.9 RATIO (10-20); Chloride 106 mmol/L (98-107); Creatinine, Serum 0.89 mg/dL (0.70-1.30); EST Glomerular Filtration Rate 99 mL/min (>60); Est Glom Filt Rate - Afr Amer 120 mL/min (>60); Globulin 4.3 g/dL (2.2-4.2); Glucose 106 mg/dL (74-106); Potassium 4.1 mmol/L (3.5-5.1); Protein, Total 7.3 g/dL (6.4-8.2); Sodium Level 141 mmol/L (136-145)
== END | disposition home or self-care (01) ==
LOC: LAB 09:25
PROVIDERS: PCP Student in an Organized Health Care Education/Training Program; Referring Provider Podiatrist; Visit Provider Podiatrist
DX: L97.322 Non-pressure chronic ulcer of left 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 (principal)
CPT/HCPCS: 36415; 80053; 83036; 85025; 85652; 86140

== ENCOUNTER → 2023-11-16 | Outpatient (CLI) | payer BC, SELFPAY ==
--- NOTE | 2023-11-16 09:52 | EKG12_ITS ---
Test Reason : CUSTODIAL MED Blood Pressure : / mmHG Vent. Rate : 093 BPM Atrial Rate : 093 BPM P-R Int : 138 ms QRS Dur : 100 ms QT Int : 348 ms P-R-T Axes : 036 011 031 degrees QTc Int : 432 ms Normal sinus rhythm Normal ECG Confirmed by Dom Lim ([id number]), editor managing newspaper MYKEL BURRELL ([id number]) on 11/17/2023 7:59:56 AM Referred By: Yoan Vee Confirmed By:Dom Lim
== END | disposition home or self-care (01) ==
PROVIDERS: PCP Student in an Organized Health Care Education/Training Program; Referring Provider Internal Medicine Infectious Disease; Visit Provider Internal Medicine Infectious Disease
DX: M86.9 Osteomyelitis, unspecified (principal)
CPT/HCPCS: 93005

== ENCOUNTER 2023-12-06 10:00 | Outpatient (RCR) | payer BC, SELFPAY ==
[2023-11-07 00:24] VITALS: BP 131/76; PULSE 89; RESP 16; TEMP 36.2; BMI 33.9
[2023-11-08 11:03] VITALS: BP 143/75; PULSE 93; RESP 18; TEMP 36.1; BMI 33.9
--- NOTE | 2023-11-08 11:45 | PCM.WC.PN ---
History of Present Illness Date of Service: 11/08/23 Chief Complaint: Diabetic left foot infection with gas gangrene and osteomyelitis; Li grade 3 diabetic foot infection. History of Wound: 43-year-old male status post left Charcot reconstruction. Denies constitutional symptoms. Wound is improving today. Objective Data Objective Data Vital Signs: Vital Signs Temp Pulse Resp BP O2 Del Method O2 Flow Rate 96.9 F L 93 18 143/75 H Room Air 99 11/08/23 11:03 11/08/23 11:03 11/08/23 11:03 11/08/23 11:03 11/08/23 11:03 11/07/23 00:24 Oxygen Flow Rate (L/min) 99 Oxygen Delivery Method Room Air Weight: 113.398 kg Body Mass Index (BMI) 33.9 Physical Exam Narrative Neurovascular status unchanged Full-thickness wounds to medial ankle, 3 cc purulence drained from the site today. Lateral ankle wound down to the level of bone noted with intact vessel loop closure allowing for partial wound closure, additional 3 cc purulence drained from the site. Pre and postdebridement measurements documented in notes nursing notes. This was debrided down to level of muscle today. No residual abscess noted. New onset redness swelling to plantar midfoot with possible fluctuance and increase in warmth. Concern for deep abscess. No signs of DVT. Const alert and oriented x3 Debridement Note Debridement Note Post-Debridement Measurements and Additional Note: Post-Debridement Measurements/Treatment WC - Nurse 1 - General Ulcer Assessment Start: 11/08/23 11:03 Freq: Status: Active Protocol: MARY.BLAKE Activity Type Activity Date Activity User E-sign Co-sign Detail Recorded Client Recorded Date Recorded By Document 11/08/23 11:03 KW Desktop 11/08/23 11:11 KW 11/08/23 11:03 - Today's Visit Information Type of service Follow-up Visit (Physician/DIESEL ENGINE INSPECTOR ) Arrival Mode Wheelchair Accompanied by STEP-FATHER Patient Identification Verified (Name & Yes ) Finger Stick Blood Sugar(mg/dl) (if 115 indicated): Blood Sugar Stated by Patient Height and Weight Body Mass Index (BMI) 33.9 BMI Classification Obese Vital Signs Temperature (97.8 F-99.1 F) 96.9 F L Temperature Source Temporal Pulse Rate (60-100) 93 Pulse Location Monitor Respiratory Rate (12-18) 18 Respiratory rate source Observation Oxygen Delivery Method Room Air Blood Pressure (90/60-120/80) 143/75 H Blood Pressure Mean (mm Hg) 97 Source Monitor Position Semi-Fowlers Blood Pressure Location Left Arm History Since Last Visit- (Skip if this is Patient's initial visit) Have you changed medications since your No last visit? Any new allergies or adverse reactions No Had a fall/change in ADL's that may No increase risk of falls Signs or symptoms of abuse and/or No neglect since last visit Have you been in the hospital since your No last visit? Has dressing in place as prescribed Yes Has compression in place as prescribed Yes Has offloadiing in place as prescribed Yes Experienced any changes in pain level or No management Left Footwear No Footwear Right Footwear Regular Shoe Pain Scale: 0-10 Numeric Is Patient Pain Free? Yes WC - Nurse 1 - General Ulcer Measurement Start: 11/08/23 11:03 Freq: Status: Active Protocol: Activity Type Activity Date Activity User E-sign Co-sign Detail Recorded Client Recorded Date Recorded By Document 11/08/23 11:03 KW Desktop 11/08/23 11:11 KW 11/08/23 11:03 Wound Center Nurse 1 7. L lateral ankle superior -Current Size (cm) - Length 0.1 -Current Size (cm) - Width 0.1 -Current Size (cm) - Depth 0.1 -Total Square Cm 0.01 -Epithelialization Large 67-100% -Exudate Amt None Present -Moisture ([place]-wound Skin Appearance) Dry/Scaly -Color ([place]-wound Skin Appearance) No Abnormality -Temperature ([place]-wound Skin No Abnormality Appearance) (Pt Warm) -Ulcer Cleansing Rinsed/ Irrigated with Saline -Foul Odor after Cleansing No -Anesthetic Used 5% Lidocaine Gel 6. L medial ankle -Current Size (cm) - Length 0.8 -Current Size (cm) - Width 0.1 -Current Size (cm) - Depth 1.1 -Total Square Cm 0.08 -Epithelialization None Present -Undermining/Tunneling Yes -Undermining/Tunneling Starts (O'clock 2 ) -Undermining/Tunneling Ends (O'clock) 3 -Maximum Distance (cm) 1.5 -Exudate Amt Medium -Exudate Type Serosanguineous -Wound Margin Thickened -Granulation Amt Large (67-100%) -Granulation Quality [place] -Slough/Fibrin Yes -Necrosis Amt Small (1-33%) -Necrotic Tissue Type Adherent Slough -Texture ([place]-wound Skin Appearance) No Abnormality -Moisture ([place]-wound Skin Appearance) No Abnormality -Color ([place]-wound Skin Appearance) No Abnormality -Temperature ([place]-wound Skin No Abnormality Appearance) (Pt Warm) -Tenderness on Palpation ([place]-wound No Skin Appearance) -Ulcer Cleansing Rinsed/ Irrigated with Saline -Anesthetic Used 4% Lidocaine Solution WC - Nurse 2 - General Ulcer CM Notes Start: 11/08/23 11:03 Freq: Status: Active Protocol: Activity Type Activity Date Activity User E-sign Co-sign Detail Recorded Client Recorded Date Recorded By Document 11/08/23 11:26 Laptop 11/08/23 11:28 11/08/23 11:26 Wound Center Nurse 2 7. L lateral ankle superior -Correct Patient No -Correct Side, Site, Position No -Correct Procedure No -Procedure Performed No -Post Debridement (cm) - Length 0 -Post Debridement (cm) - Width 0 -Post Debridement (cm) - Depth 0 -Total Square (Post) (cm) 0 -Area of Debridement (cm) - Length 0 -Area of Debridement (cm) - Width 0 -Total Square (Area) (cm) 0 -Wound/Ulcer Outcome Healed- Epithelialized 6. L medial ankle -Time 11:26 -Correct Patient Yes -Correct Side, Site, Position Yes -Correct Procedure Yes -Procedure Performed Yes -Type of Procedure Debridement -Clinical Debridement Subcutaneous -Tissue Removed Subcutaneous -Post Debridement (cm) - Length 0.8 -Post Debridement (cm) - Width 0.2 -Post Debridement (cm) - Depth 1.1 -Total Square (Post) (cm) 0.16 -Area of Debridement (cm) - Length 0.8 -Area of Debridement (cm) - Width 0.2 -Total Square (Area) (cm) 0.16 -Tunneling No -Circular Undermining No -Wound/Ulcer Outcome Not Healed -Ulcer Cleansing Rinsed/ Irrigated with Saline -Foul Odor after Cleansing No -Bioengineered Tissue No -Bleeding Controlled with Pressure -Treatment Response Procedure Tolerated Well -Offloading Yes -Type of Offloading Surgical Shoe -Assistive Device(s) Walker -Debridement - Subq, 1st 20sq cm Yes Pain Scale: 0-10 Numeric Is Patient Pain Free? Yes WC - Nurse 3 - General Ulcer D/C NN Start: 11/08/23 11:03 Freq: Status: Active Protocol: Activity Type Activity Date Activity User E-sign Co-sign Detail Recorded Client Recorded Date Recorded By Document 11/08/23 11:35 KW Desktop 11/08/23 11:35 KW 11/08/23 11:35 Wound Care Center Nurse 3 6. L medial ankle -Primary Dressing Covered/Secured with Dry Gauze & Roll Gauze, Secured with Tape Left -Compression Wrap Sal Wrap Pain Scale: 0-10 Numeric Is Patient Pain Free? Yes WC - Visit Discharge Discharge Condition Stable Ambulatory Status Wheelchair Transportation Private Auto Medication Reconcilliation completed & No provided to patient/care provider Clinical Summary of Care Provided Yes Assessment/Plan Assessment/Plan (1) Osteomyelitis of ankle, left, acute: CODE(S): M86.172 - Other acute osteomyelitis, left ankle and foot PLAN: Exam performed Radiographs reviewed. Ankle joint fusing, subtalar joint fused. Some residual plantar convexity noted at the midfoot. Discussed possible midfoot osteotomy if there is any recurrent ulceration of the site with return to ambulation. Patient great completed 6 weeks IV antibiotics*(meropenem) for osteomyelitis left foot. wound significantly improved Today left lower extremity wound to lateral ankle was debrided down to and including level of muscle excisionally using a 5 mm dermal curette without incident. No anesthesia due to neuropathy. Hemostasis obtained with light compression. Patient tolerated procedure well. Pre and postdebridement measurements documented nursing notes. Change dressing daily hydrogel with DSD and Tubigrip. Patient follows up weekly Patient patient will transfer to protected weightbearing cam boot assisted by walker Patient receiving HBO therapy Blood sugar well-controlled Follow-up 1 week (2) Charcot foot due to diabetes mellitus: CODE(S): E11.610 - 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 arthropathy (3) Abscess of bursa, left ankle and foot: CODE(S): M71.072 - Abscess of bursa, left ankle and foot (4) Cellulitis of left lower limb: CODE(S): L03.116 - Cellulitis of left lower limb (5) Non-pressure chronic ulcer of left 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: CODE(S): L97.322 - Non-pressure chronic ulcer of left 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 (6) Type 2 diabetes mellitus with diabetic polyneuropathy: CODE(S): E11.42 - Type 2 diabetes mellitus with diabetic polyneuropathy QUALIFIERS: 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
[2023-11-15 10:49] VITALS: BP 133/80; PULSE 92; RESP 18; TEMP 36.6; BMI 33.9
--- NOTE | 2023-11-15 11:20 | PN.PCM_ITS ---
History of Present Illness Date of Service: 11/15/23 Chief Complaint: Diabetic left foot infection with gas gangrene and osteom yelitis; Li grade 3 diabetic foot infection. History of Wound: 43-year-old male status post left Charcot reconstruction. Denies constitutional symptoms. Wound is improving today. Objective Data Objective Data Vital Signs: Vital Signs Temp Pulse Resp BP O2 Del Method O2 Flow Rate 98 F 92 18 133/80 H Room Air 99 11/15/23 10:49 11/15/23 10:49 11/15/23 10:49 11/15/23 10:49 11/15/23 10:49 11/07/23 00:24 Oxygen Flow Rate (L/min) 99 Oxygen Delivery Method Room Air Weight: 113.398 kg Body Mass Index (BMI) 33.9 Physical Exam Narrative Neurovascular status unchanged Full-thickness wounds to medial ankle, no residual purulence. Lateral ankle full thickness to subcutaneous tissue to superior aspect of ankle. No acute signs of infection. No signs of DVT. rectus hindfoot to leg positioning. slight plantar convexity with forefoot dorsiflexed on hindfoot. Const alert and oriented x3 Debridement Note Debridement Note Post-Debridement Measurements and Additional Note: Post-Debridement Measurements/Treatment - Nurse 1 - General Ulcer Assessment Start: 11/08/23 11:03 Freq: Status: Active Protocol: .LOWEXT Activity Type Activity Date Activity User E-sign Co-sign Detail Recorded Client Recorded Date Recorded By Document 11/08/23 11:03 KW Desktop 11/08/23 11:11 KW Document 11/15/23 10:49 MT Desktop 11/15/23 11:03 HI 11/08/23 11/15/23 11:03 10:49 - Today's Visit Information Type of service Follow-up Visit Follow-up Visit (Physician/TECHNOLOGY OFFICER (Physician/TECHNOLOGY OFFICER ) ) Arrival Mode Wheelchair Ambulatory Accompanied by STEP-FATHER Patient Identification Verified (Name & Yes Yes ) Finger Stick Blood Sugar(mg/dl) (if 115 indicated): Blood Sugar Stated by Patient Height and Weight Body Mass Index (BMI) 33.9 33.9 BMI Classification Obese Obese Vital Signs Temperature (97.8 F-99.1 F) 96.9 F L 98 F Temperature Source Temporal Temporal Pulse Rate (60-100) 93 92 Pulse Location Monitor Monitor Respiratory Rate (12-18) 18 18 Respiratory rate source Observation Observation Oxygen Delivery Method Room Air Room Air Blood Pressure (90/60-120/80) 143/75 H 133/80 H Blood Pressure Mean (mm Hg) 97 97 Source Monitor Monitor Position Semi-Fowlers Sitting Blood Pressure Location Left Arm Left Arm History Since Last Visit- (Skip if this is Patient's initial visit) Have you changed medications since your No last visit? Any new allergies or adverse reactions No Had a fall/change in ADL's that may No increase risk of falls Signs or symptoms of abuse and/or No neglect since last visit Have you been in the hospital since your No last visit? Has dressing in place as prescribed Yes Has compression in place as prescribed Yes Has offloadiing in place as prescribed Yes Experienced any changes in pain level or No management Left Footwear No Footwear Regular Shoe Right Footwear Regular Shoe Regular Shoe Pain Scale: 0-10 Numeric Is Patient Pain Free? Yes Yes WC - Nurse 1 - General Ulcer Measurement Start: 11/08/23 11:03 Freq: Status: Active Protocol: Activity Type Activity Date Activity User E-sign Co-sign Detail Recorded Client Recorded Date Recorded By Document 11/08/23 11:03 [employer] 11/08/23 11:11 KW Document 11/15/23 10:49 HI Desktop 11/15/23 11:03 HI 11/08/23 11/15/23 11:03 10:49 Wound Center Nurse 1 7. L lateral ankle superior -Current Size (cm) - Length 0.1 -Current Size (cm) - Width 0.1 -Current Size (cm) - Depth 0.1 -Total Square Cm 0.01 -Epithelialization Large 67-100% -Exudate Amt None Present -Moisture ([place]-wound Skin Appearance) Dry/Scaly -Color ([place]-wound Skin Appearance) No Abnormality -Temperature ([place]-wound Skin No Abnormality Appearance) (Pt Warm) -Ulcer Cleansing Rinsed/ Irrigated with Saline -Foul Odor after Cleansing No -Anesthetic Used 5% Lidocaine Gel 6. L medial ankle -Current Size (cm) - Length 0.8 1.0 -Current Size (cm) - Width 0.1 0.4 -Current Size (cm) - Depth 1.1 2.2 -Total Square Cm 0.08 0.40 -Epithelialization None Present -Undermining/Tunneling Yes -Undermining/Tunneling Starts (O'clock 2 ) -Undermining/Tunneling Ends (O'clock) 3 -Maximum Distance (cm) 1.5 -Exudate Amt Medium Medium -Exudate Type Serosanguineous Sanguineous -Wound Margin Thickened Flat & Intact -Granulation Amt Large (67-100%) Large (67-100%) -Granulation Quality [place] -Slough/Fibrin Yes No -Necrosis Amt Small (1-33%) -Necrotic Tissue Type Adherent Slough -Texture ([place]-wound Skin Appearance) No Abnormality Assessed -Moisture ([place]-wound Skin Appearance) No Abnormality Assessed -Color ([place]-wound Skin Appearance) No Abnormality Assessed -Temperature ([place]-wound Skin No Abnormality No Abnormality Appearance) (Pt Warm) (Pt Warm) -Tenderness on Palpation ([place]-wound No No Skin Appearance) -Ulcer Cleansing Rinsed/ Soap and Water Irrigated with Saline -Foul Odor after Cleansing No -Anesthetic Used 4% Lidocaine 5% Lidocaine Solution Gel WC - Nurse 2 - General Ulcer CM Notes Start: 11/08/23 11:03 Freq: Status: Active Protocol: Activity Type Activity Date Activity User E-sign Co-sign Detail Recorded Client Recorded Date Recorded By Document 11/08/23 11:26 Laptop 11/08/23 11:28 11/08/23 11:26 Wound Center Nurse 2 7. L lateral ankle superior -Correct Patient No -Correct Side, Site, Position No -Correct Procedure No -Procedure Performed No -Post Debridement (cm) - Length 0 -Post Debridement (cm) - Width 0 -Post Debridement (cm) - Depth 0 -Total Square (Post) (cm) 0 -Area of Debridement (cm) - Length 0 -Area of Debridement (cm) - Width 0 -Total Square (Area) (cm) 0 -Wound/Ulcer Outcome Healed- Epithelialized 6. L medial ankle -Time 11:26 -Correct Patient Yes -Correct Side, Site, Position Yes -Correct Procedure Yes -Procedure Performed Yes -Type of Procedure Debridement -Clinical Debridement Subcutaneous -Tissue Removed Subcutaneous -Post Debridement (cm) - Length 0.8 -Post Debridement (cm) - Width 0.2 -Post Debridement (cm) - Depth 1.1 -Total Square (Post) (cm) 0.16 -Area of Debridement (cm) - Length 0.8 -Area of Debridement (cm) - Width 0.2 -Total Square (Area) (cm) 0.16 -Tunneling No -Circular Undermining No -Wound/Ulcer Outcome Not Healed -Ulcer Cleansing Rinsed/ Irrigated with Saline -Foul Odor after Cleansing No -Bioengineered Tissue No -Bleeding Controlled with Pressure -Treatment Response Procedure Tolerated Well -Offloading Yes -Type of Offloading Surgical Shoe -Assistive Device(s) Walker -Debridement - Subq, 1st 20sq cm Yes Pain Scale: 0-10 Numeric Is Patient Pain Free? Yes WC - Nurse 3 - General Ulcer D/C NN Start: 11/08/23 11:03 Freq: Status: Active Protocol: Activity Type Activity Date Activity User E-sign Co-sign Detail Recorded Client Recorded Date Recorded By Document 11/08/23 11:35 KW Desktop 11/08/23 11:35 KW 11/08/23 11:35 Wound Care Center Nurse 3 6. L medial ankle -Primary Dressing Covered/Secured with Dry Gauze & Roll Gauze, Secured with Tape Left -Compression Wrap Sal Wrap Pain Scale: 0-10 Numeric Is Patient Pain Free? Yes WC - Visit Discharge Discharge Condition Stable Ambulatory Status Wheelchair Transportation Private Auto Medication Reconcilliation completed & No provided to patient/care provider Clinical Summary of Care Provided Yes Assessment/Plan Assessment/Plan (1) Osteomyelitis of ankle, left, acute: CODE(S): M86.172 - Other acute osteomyelitis, left ankle and foot PLAN: Exam performed Radiographs reviewed. Ankle joint fusing, subtalar joint fused. Some residual plantar convexity noted at the midfoot. Discussed possible midfoot osteotomy if there is any recurrent ulceration of the site with return to ambulation. Patient kash completed 6 weeks IV antibiotics*(meropenem) for osteomyelitis left foot. wound significantly improved cultures for 11/10/23 office visit were negative for any bacterioal growth. Today left lower extremity wound to lateral and medial ankle were debrided down to and including level of muscle excisionally using a 5 mm dermal curette without incident. No anesthesia due to neuropathy. Hemostasis obtained with light compression. Patient tolerated procedure well. Pre and postdebridement measurements documented nursing notes. Change dressing daily hydrogel with DSD and Tubigrip. Patient follows up weekly Patient patient will transfer to protected weightbearing cam boot assisted by walker Patient receiving HBO therapy Blood sugar well-controlled Follow-up 1 week (2) Charcot foot due to diabetes mellitus: CODE(S): E11.610 - 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 arthropathy (3) Abscess of bursa, left ankle and foot: CODE(S): M71.072 - Abscess of bursa, left ankle and foot (4) Cellulitis of left lower limb: CODE(S): L03.116 - Cellulitis of left lower limb (5) Non-pressure chronic ulcer of left 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: CODE(S): L97.322 - Non-pressure chronic ulcer of left 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 (6) Type 2 diabetes mellitus with diabetic polyneuropathy: CODE(S): E11.42 - Type 2 diabetes mellitus with diabetic polyneuropathy QUALIFIERS: Diabetes mellitus machinist job setter insulin use: without machinist job setter use Qualified Code(s): E11.42 - Type 2 diabetes mellitus with diabetic po lyneuropathy
[2023-11-22 10:02] VITALS: BP 136/77; PULSE 85; RESP 18; TEMP 36; BMI 33.9
--- NOTE | 2023-11-22 10:36 | PN.PCM_ITS ---
History of Present Illness Date of Service: 11/22/23 Chief Complaint: Diabetic left foot infection with gas gangrene and osteom yelitis; Li grade 3 diabetic foot infection. History of Wound: 43-year-old male status post left Charcot reconstruction. Denies constitutional symptoms. Wound is improving today. Objective Data Objective Data Vital Signs: Vital Signs Temp Pulse Resp BP O2 Del Method O2 Flow Rate 96.8 F L 85 18 136/77 H Room Air 99 11/22/23 10:02 11/22/23 10:02 11/22/23 10:02 11/22/23 10:02 11/15/23 10:49 11/07/23 00:24 Oxygen Flow Rate (L/min) 99 Oxygen Delivery Method Room Air Weight: 113.398 kg Body Mass Index (BMI) 33.9 Physical Exam Narrative Neurovascular status unchanged Full-thickness wounds to medial ankle, no residual purulence. Lateral ankle full thickness to subcutaneous tissue to superior aspect of ankle. No acute signs of infection. No signs of DVT. rectus hindfoot to leg positioning. slight plantar convexity with forefoot dorsiflexed on hindfoot. Const alert and oriented x3 Debridement Note Debridement Note Post-Debridement Measurements and Additional Note: Post-Debridement Measurements/Treatment - Nurse 1 - General Ulcer Assessment Start: 11/08/23 11:03 Freq: Status: Active Protocol: .LOWEXT Activity Type Activity Date Activity User E-sign Co-sign Detail Recorded Client Recorded Date Recorded By Document 11/08/23 11:03 KW Desktop 11/08/23 11:11 KW Document 11/15/23 10:49 [place] Desktop 11/15/23 11:03 MT Document 11/22/23 10:02 RB Desktop 11/22/23 10:06 RB 11/08/23 11/15/23 11/22/23 11:03 10:49 10:02 - Today's Visit Information Type of service Follow-up Visit Follow-up Visit Follow-up Visit (Physician/AGRICULTURAL SYSTEMS SPECIALIST (Physician/AGRICULTURAL SYSTEMS SPECIALIST (Physician/AGRICULTURAL SYSTEMS SPECIALIST ) ) ) Arrival Mode Wheelchair Ambulatory Ambulatory Transfer Assistance None Accompanied by STEP-FATHER Patient Identification Verified (Name & Yes Yes Yes ) Patient Requires Transmission-Based No Precautions Finger Stick Blood Sugar(mg/dl) (if 115 indicated): Blood Sugar Stated by Patient Height and Weight Body Mass Index (BMI) 33.9 33.9 33.9 BMI Classification Obese Obese Obese Vital Signs Temperature (97.8 F-99.1 F) 96.9 F L 98 F 96.8 F L Temperature Source Temporal Temporal Temporal Pulse Rate (60-100) 93 92 85 Pulse Location Monitor Monitor Monitor Respiratory Rate (12-18) 18 18 18 Respiratory rate source Observation Observation Observation Oxygen Delivery Method Room Air Room Air Blood Pressure (90/60-120/80) 143/75 H 133/80 H 136/77 H Blood Pressure Mean (mm Hg) 97 97 96 Source Monitor Monitor Monitor Position Semi-Fowlers Sitting Semi-Fowlers Blood Pressure Location Left Arm Left Arm Left Arm History Since Last Visit- (Skip if this is Patient's initial visit) Have you changed medications since your No No last visit? Any new allergies or adverse reactions No No Had a fall/change in ADL's that may No No increase risk of falls Signs or symptoms of abuse and/or No No neglect since last visit Have you been in the hospital since your No No last visit? Has dressing in place as prescribed Yes Yes Has compression in place as prescribed Yes Yes Has offloadiing in place as prescribed Yes Yes Experienced any changes in pain level or No No management Left Footwear No Footwear Regular Shoe Right Footwear Regular Shoe Regular Shoe Pain Scale: 0-10 Numeric Is Patient Pain Free? Yes Yes Yes WC - Nurse 1 - General Ulcer Measurement Start: 11/08/23 11:03 Freq: Status: Active Protocol: Activity Type Activity Date Activity User E-sign Co-sign Detail Recorded Client Recorded Date Recorded By Document 11/08/23 11:03 KW [employer] 11/08/23 11:11 KW Document 11/15/23 10:49 [place] Desktop 11/15/23 11:03 MT Document 11/22/23 10:02 RB Desktop 11/22/23 10:06 RB 11/08/23 11/15/23 11/22/23 11:03 10:49 10:02 Wound Center Nurse 1 7. L lateral ankle superior -Combined with other wound No -Current Size (cm) - Length 0.1 0.2 -Current Size (cm) - Width 0.1 0.6 -Current Size (cm) - Depth 0.1 2 -Total Square Cm 0.01 0.12 -Epithelialization Large 67-100% -Tunneling No -Undermining/Tunneling No -Circular Undermining No -Exudate Amt None Present Medium -Exudate Type Serosanguineous -Wound Margin Distinct, Outline Attached -Granulation Amt Medium (34-66%) -Granulation Quality [place] -Slough/Fibrin Yes -Necrosis Amt Medium (34-66%) -Necrotic Tissue Type Adherent Slough -Structure Exposed N/A -Texture ([place]-wound Skin Appearance) Assessed, Scarring -Moisture ([place]-wound Skin Appearance) Dry/Scaly Assessed -Color ([place]-wound Skin Appearance) No Abnormality Assessed -Temperature ([place]-wound Skin No Abnormality No Abnormality Appearance) (Pt Warm) (Pt Warm) -Tenderness on Palpation ([place]-wound No Skin Appearance) -Ulcer Cleansing Rinsed/ Wound Cleanser Irrigated with Saline -Foul Odor after Cleansing No No -Anesthetic Used 5% Lidocaine 5% Lidocaine Gel Gel 6. L medial ankle -Combined with other wound No -Current Size (cm) - Length 0.8 1.0 0.3 -Current Size (cm) - Width 0.1 0.4 0.3 -Current Size (cm) - Depth 1.1 2.2 0.4 -Total Square Cm 0.08 0.40 0.09 -Epithelialization None Present -Tunneling No -Undermining/Tunneling Yes No -Undermining/Tunneling Starts (O'clock 2 ) -Undermining/Tunneling Ends (O'clock) 3 -Maximum Distance (cm) 1.5 -Circular Undermining No -Exudate Amt Medium Medium Medium -Exudate Type Serosanguineous Sanguineous Serosanguineous -Wound Margin Thickened Flat & Intact Distinct, Outline Attached -Granulation Amt Large (67-100%) Large (67-100%) Medium (34-66%) -Granulation Quality Red Pale,[place] -Slough/Fibrin Yes No Yes -Necrosis Amt Small (1-33%) Medium (34-66%) -Necrotic Tissue Type Adherent Slough Adherent Slough -Structure Exposed N/A -Texture ([place]-wound Skin Appearance) No Abnormality Assessed Scarring -Moisture ([place]-wound Skin Appearance) No Abnormality Assessed Assessed -Color ([place]-wound Skin Appearance) No Abnormality Assessed Not Assessed -Temperature ([place]-wound Skin No Abnormality No Abnormality No Abnormality Appearance) (Pt Warm) (Pt Warm) (Pt Warm) -Tenderness on Palpation ([place]-wound No No No Skin Appearance) -Ulcer Cleansing Rinsed/ Soap and Water Wound Cleanser Irrigated with Saline -Foul Odor after Cleansing No No -Anesthetic Used 4% Lidocaine 5% Lidocaine 5% Lidocaine Solution Gel Gel Lower Limb Edema Present Yes Left Calf (cm) 34 Left Ankle (cm) 24.2 WC - Nurse 2 - General Ulcer CM Notes Start: 11/08/23 11:03 Freq: Status: Active Protocol: Activity Type Activity Date Activity User E-sign Co-sign Detail Recorded Client Recorded Date Recorded By Document 11/08/23 11:26 Laptop 11/08/23 11:28 Document 11/15/23 11:13 Laptop 11/15/23 11:22 Document 11/22/23 10:19 Laptop 11/22/23 10:25 11/08/23 11/15/23 11/22/23 11:26 11:13 10:19 Wound Center Nurse 2 7. L lateral ankle superior -Time 11:14 10:20 -Correct Patient No Yes Yes -Correct Side, Site, Position No Yes Yes -Correct Procedure No Yes Yes -Procedure Performed No Yes Yes -Type of Procedure Debridement Debridement -Clinical Debridement Subcutaneous Subcutaneous -Tissue Removed Subcutaneous Subcutaneous -Post Debridement (cm) - Length 0 0.5 1.0 -Post Debridement (cm) - Width 0 0.3 0.5 -Post Debridement (cm) - Depth 0 0.2 0.8 -Total Square (Post) (cm) 0 0.15 0.50 -Area of Debridement (cm) - Length 0 0.5 1.0 -Area of Debridement (cm) - Width 0 0.3 0.5 -Total Square (Area) (cm) 0 0.15 0.50 -Tunneling No No -Undermining/Tunneling No No -Circular Undermining No No -Wound/Ulcer Outcome Healed- Not Healed Not Healed Epithelialized -Ulcer Cleansing Rinsed/ Irrigated with Saline -Foul Odor after Cleansing No -Bioengineered Tissue No -Bleeding Controlled with Pressure Pressure -Treatment Response Procedure Procedure Tolerated Well Tolerated Well -Offloading No No -Debridement - Subq, 1st 20sq cm Yes No 6. L medial ankle -Time 11:26 11:13 10:21 -Correct Patient Yes Yes Yes -Correct Side, Site, Position Yes Yes Yes -Correct Procedure Yes Yes Yes -Procedure Performed Yes Yes Yes -Type of Procedure Debridement Debridement Debridement -Clinical Debridement Subcutaneous Subcutaneous Subcutaneous -Tissue Removed Subcutaneous Subcutaneous Subcutaneous -Post Debridement (cm) - Length 0.8 1.0 1.0 -Post Debridement (cm) - Width 0.2 0.5 0.1 -Post Debridement (cm) - Depth 1.1 2.2 2.0 -Total Square (Post) (cm) 0.16 0.50 0.10 -Area of Debridement (cm) - Length 0.8 1 1.0 -Area of Debridement (cm) - Width 0.2 0.5 0.1 -Total Square (Area) (cm) 0.16 0.5 0.10 -Tunneling No No No -Undermining/Tunneling No No -Circular Undermining No No No -Wound/Ulcer Outcome Not Healed Not Healed Not Healed -Ulcer Cleansing Rinsed/ Rinsed/ Rinsed/ Irrigated with Irrigated with Irrigated with Saline Saline Saline -Foul Odor after Cleansing No No No -Bioengineered Tissue No No No -Bleeding Controlled with Pressure Pressure Pressure -Treatment Response Procedure Procedure Procedure Tolerated Well Tolerated Well Tolerated Well -Offloading Yes No No -Type of Offloading Surgical Shoe -Assistive Device(s) Walker -Debridement - Subq, 1st 20sq cm Yes No Yes Pain Scale: 0-10 Numeric Is Patient Pain Free? Yes Yes Yes - Nurse 3 - General Ulcer D/C NN Start: 11/08/23 11:03 Freq: Status: Active Protocol: Activity Type Activity Date Activity User E-sign Co-sign Detail Recorded Client Recorded Date Recorded By Document 11/08/23 11:35 KW Desktop 11/08/23 11:35 KW Document 11/15/23 11:27 KW Desktop 11/15/23 11:31 KW 11/08/23 11/15/23 11:35 11:27 Wound Care Center Nurse 3 7. L lateral ankle superior -Ulcer Cleansing Rinsed/ Irrigated with Saline -Primary Dressing Covered/Secured with Dry Gauze 6. L medial ankle -Ulcer Cleansing Rinsed/ Irrigated with Saline -Primary Dressing Applied Nugauze, Plain 1/4in -Primary Dressing Covered/Secured with Dry Gauze & Dry Gauze & Roll Gauze, Roll Gauze, Secured with Secured with Tape Tape -Nugauze, Plain 1/4in 1 Left -Multi-Layered Wrap Application Multi-Layer Comp - Left ($) -Compression Wrap Sal Wrap Pain Scale: 0-10 Numeric Is Patient Pain Free? Yes Yes WC - Visit Discharge Discharge Condition Stable Stable Ambulatory Status Wheelchair Wheelchair Transportation Private Auto Private Auto Medication Reconcilliation completed & No No provided to patient/care provider Clinical Summary of Care Provided Yes Yes Assessment/Plan Assessment/Plan (1) Osteomyelitis of ankle, left, acute: CODE(S): M86.172 - Other acute osteomyelitis, left ankle and foot PLAN: Exam performed Patient kash completed 6 weeks IV antibiotics*(meropenem) for osteomyelitis left foot. wound significantly improved Today left lower extremity wound to lateral and medial ankle were debrided down to and including level of muscle excisionally using a 5 mm dermal curette without incident. No anesthesia due to neuropathy. Hemostasis obtained with light compression. Patient tolerated procedure well. Pre and postdebridement measurements documented nursing notes. Patient is receiving weekly dressing changes with Dakin's DSD and a 3M compression wrap. Continue nonweightbearing left lower extremity Follow-up in 1 week (2) Charcot foot due to diabetes mellitus: CODE(S): E11.610 - 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 arthropathy (3) Abscess of bursa, left ankle and foot: CODE(S): M71.072 - Abscess of bursa, left ankle and foot (4) Cellulitis of left lower limb: CODE(S): L03.116 - Cellulitis of left lower limb (5) Non-pressure chronic ulcer of left 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: CODE(S): L97.322 - Non-pressure chronic ulcer of left 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 (6) Type 2 diabetes mellitus with diabetic polyneuropathy: CODE(S): E11.42 - Type 2 diabetes mellitus with diabetic polyneuropathy QUALIFIERS: Diabetes mellitus senior living insulin use: without senior living use Qualified Code(s): E11.42 - Type 2 diabetes mellitus with diabetic polyneuropathy
[2023-11-29 10:05] VITALS: BP 129/77; PULSE 88; RESP 18; TEMP 36.3; BMI 33.9
--- NOTE | 2023-11-29 10:30 | PCM.WC.PN ---
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 History of Wound: 43-year-old male status post left Charcot reconstruction. Denies constitutional symptoms. Wound is improving today. Objective Data Objective Data Vital Signs: Vital Signs Temp Pulse Resp BP O2 Del Method O2 Flow Rate 97.4 F L 88 18 129/77 H Room Air 99 11/29/23 10:05 11/29/23 10:05 11/29/23 10:05 11/29/23 10:05 11/15/23 10:49 11/07/23 00:24 Oxygen Flow Rate (L/min) 99 Oxygen Delivery Method Room Air Weight: 113.398 kg Body Mass Index (BMI) 33.9 Physical Exam Narrative Neurovascular status unchanged Full-thickness wounds to medial ankle, no residual purulence. Lateral ankle full thickness to subcutaneous tissue to superior aspect of ankle. No acute signs of infection. No signs of DVT. rectus hindfoot to leg positioning. slight plantar convexity with forefoot dorsiflexed on hindfoot. Const alert and oriented x3 Debridement Note Debridement Note Post-Debridement Measurements and Additional Note: Post-Debridement Measurements/Treatment - Nurse 1 - General Ulcer Assessment Start: 11/08/23 11:03 Freq: Status: Active Protocol: .LOWEXT Activity Type Activity Date Activity User E-sign Co-sign Detail Recorded Client Recorded Date Recorded By Document 11/08/23 11:03 KW Desktop 11/08/23 11:11 KW Document 11/15/23 10:49 DC Desktop 11/15/23 11:03 MT Document 11/22/23 10:02 RB Desktop 11/22/23 10:06 RB Document 11/29/23 10:05 RB Desktop 11/29/23 10:08 RB 11/08/23 11/15/23 11/22/23 11:03 10:49 10:02 - Today's Visit Information Type of service Follow-up Visit Follow-up Visit Follow-up Visit (Physician/CHIEF OF PRODUCTION (Physician/CHIEF OF PRODUCTION (Physician/CHIEF OF PRODUCTION ) ) ) Arrival Mode Wheelchair Ambulatory Ambulatory Transfer Assistance None Accompanied by STEP-FATHER Patient Identification Verified (Name & Yes Yes Yes ) Patient Requires Transmission-Based No Precautions Finger Stick Blood Sugar(mg/dl) (if 115 indicated): Blood Sugar Stated by Patient Height and Weight Body Mass Index (BMI) 33.9 33.9 33.9 BMI Classification Obese Obese Obese Vital Signs Temperature (97.8 F-99.1 F) 96.9 F L 98 F 96.8 F L Temperature Source Temporal Temporal Temporal Pulse Rate (60-100) 93 92 85 Pulse Location Monitor Monitor Monitor Respiratory Rate (12-18) 18 18 18 Respiratory rate source Observation Observation Observation Oxygen Delivery Method Room Air Room Air Blood Pressure (90/60-120/80) 143/75 H 133/80 H 136/77 H Blood Pressure Mean (mm Hg) 97 97 96 Source Monitor Monitor Monitor Position Semi-Fowlers Sitting Semi-Fowlers Blood Pressure Location Left Arm Left Arm Left Arm History Since Last Visit- (Skip if this is Patient's initial visit) Have you changed medications since your No No last visit? Any new allergies or adverse reactions No No Had a fall/change in ADL's that may No No increase risk of falls Signs or symptoms of abuse and/or No No neglect since last visit Have you been in the hospital since your No No last visit? Has dressing in place as prescribed Yes Yes Has compression in place as prescribed Yes Yes Has offloadiing in place as prescribed Yes Yes Experienced any changes in pain level or No No management Left Footwear No Footwear Regular Shoe Right Footwear Regular Shoe Regular Shoe Pain Scale: 0-10 Numeric Is Patient Pain Free? Yes Yes Yes 11/29/23 10:05 WC - Today's Visit Information Type of service Follow-up Visit (Physician/CHIEF OF PRODUCTION ) Arrival Mode Wheelchair Transfer Assistance None Accompanied by Patient Identification Verified (Name & Yes ) Patient Requires Transmission-Based No Precautions Finger Stick Blood Sugar(mg/dl) (if indicated): Blood Sugar Height and Weight Body Mass Index (BMI) 33.9 BMI Classification Obese Vital Signs Temperature (97.8 F-99.1 F) 97.4 F L Temperature Source Temporal Pulse Rate (60-100) 88 Pulse Location Monitor Respiratory Rate (12-18) 18 Respiratory rate source Observation Oxygen Delivery Method Blood Pressure (90/60-120/80) 129/77 H Blood Pressure Mean (mm Hg) 94 Source Monitor Position Semi-Fowlers Blood Pressure Location Left Arm History Since Last Visit- (Skip if this is Patient's initial visit) Have you changed medications since your No last visit? Any new allergies or adverse reactions No Had a fall/change in ADL's that may No increase risk of falls Signs or symptoms of abuse and/or No neglect since last visit Have you been in the hospital since your No last visit? Has dressing in place as prescribed Yes Has compression in place as prescribed Yes Has offloadiing in place as prescribed No Experienced any changes in pain level or No management Left Footwear Right Footwear Pain Scale: 0-10 Numeric Is Patient Pain Free? Yes WC - Nurse 1 - General Ulcer Measurement Start: 11/08/23 11:03 Freq: Status: Active Protocol: Activity Type Activity Date Activity User E-sign Co-sign Detail Recorded Client Recorded Date Recorded By Document 11/08/23 11:03 KW Desktop 11/08/23 11:11 KW Document 11/15/23 10:49 MT Desktop 11/15/23 11:03 MT Document 11/22/23 10:02 RB Desktop 11/22/23 10:06 RB Document 11/29/23 10:05 RB Desktop 11/29/23 10:08 RB 11/08/23 11/15/23 11/22/23 11:03 10:49 10:02 Wound Center Nurse 1 7. L lateral ankle superior -Combined with other wound No -Current Size (cm) - Length 0.1 0.2 -Current Size (cm) - Width 0.1 0.6 -Current Size (cm) - Depth 0.1 2 -Total Square Cm 0.01 0.12 -Epithelialization Large 67-100% -Tunneling No -Undermining/Tunneling No -Circular Undermining No -Exudate Amt None Present Medium -Exudate Type Serosanguineous -Wound Margin Distinct, Outline Attached -Granulation Amt Medium (34-66%) -Granulation Quality [place] -Slough/Fibrin Yes -Necrosis Amt Medium (34-66%) -Necrotic Tissue Type Adherent Slough -Structure Exposed N/A -Texture ([place]-wound Skin Appearance) Assessed, Scarring -Moisture ([place]-wound Skin Appearance) Dry/Scaly Assessed -Color ([place]-wound Skin Appearance) No Abnormality Assessed -Temperature ([place]-wound Skin No Abnormality No Abnormality Appearance) (Pt Warm) (Pt Warm) -Tenderness on Palpation ([place]-wound No Skin Appearance) -Ulcer Cleansing Rinsed/ Wound Cleanser Irrigated with Saline -Foul Odor after Cleansing No No -Anesthetic Used 5% Lidocaine 5% Lidocaine Gel Gel 6. L medial ankle -Combined with other wound No -Current Size (cm) - Length 0.8 1.0 0.3 -Current Size (cm) - Width 0.1 0.4 0.3 -Current Size (cm) - Depth 1.1 2.2 0.4 -Total Square Cm 0.08 0.40 0.09 -Epithelialization None Present -Tunneling No -Undermining/Tunneling Yes No -Undermining/Tunneling Starts (O'clock 2 ) -Undermining/Tunneling Ends (O'clock) 3 -Maximum Distance (cm) 1.5 -Circular Undermining No -Exudate Amt Medium Medium Medium -Exudate Type Serosanguineous Sanguineous Serosanguineous -Wound Margin Thickened Flat & Intact Distinct, Outline Attached -Granulation Amt Large (67-100%) Large (67-100%) Medium (34-66%) -Granulation Quality Red Pale,[place] -Slough/Fibrin Yes No Yes -Necrosis Amt Small (1-33%) Medium (34-66%) -Necrotic Tissue Type Adherent Slough Adherent Slough -Structure Exposed N/A -Texture ([place]-wound Skin Appearance) No Abnormality Assessed Scarring -Moisture ([place]-wound Skin Appearance) No Abnormality Assessed Assessed -Color ([place]-wound Skin Appearance) No Abnormality Assessed Not Assessed -Temperature ([place]-wound Skin No Abnormality No Abnormality No Abnormality Appearance) (Pt Warm) (Pt Warm) (Pt Warm) -Tenderness on Palpation ([place]-wound No No No Skin Appearance) -Ulcer Cleansing Rinsed/ Soap and Water Wound Cleanser Irrigated with Saline -Foul Odor after Cleansing No No -Anesthetic Used 4% Lidocaine 5% Lidocaine 5% Lidocaine Solution Gel Gel Lower Limb Edema Present Yes Left Calf (cm) 34 Left Ankle (cm) 24.2 11/29/23 10:05 Wound Center Nurse 1 7. L lateral ankle superior -Combined with other wound No -Current Size (cm) - Length 0.1 -Current Size (cm) - Width 0.1 -Current Size (cm) - Depth 0.1 -Total Square Cm 0.01 -Epithelialization -Tunneling No -Undermining/Tunneling No -Circular Undermining No -Exudate Amt Medium -Exudate Type Serosanguineous -Wound Margin Distinct, Outline Attached -Granulation Amt Medium (34-66%) -Granulation Quality [place] -Slough/Fibrin Yes -Necrosis Amt Medium (34-66%) -Necrotic Tissue Type Adherent Slough -Structure Exposed N/A -Texture ([place]-wound Skin Appearance) Assessed, Scarring -Moisture ([place]-wound Skin Appearance) Assessed -Color ([place]-wound Skin Appearance) Assessed -Temperature ([place]-wound Skin No Abnormality Appearance) (Pt Warm) -Tenderness on Palpation ([place]-wound No Skin Appearance) -Ulcer Cleansing Wound Cleanser -Foul Odor after Cleansing No -Anesthetic Used 5% Lidocaine Gel 6. L medial ankle -Combined with other wound No -Current Size (cm) - Length 0.2 -Current Size (cm) - Width 0.7 -Current Size (cm) - Depth 3.5 -Total Square Cm 0.14 -Epithelialization -Tunneling No -Undermining/Tunneling No -Undermining/Tunneling Starts (O'clock ) -Undermining/Tunneling Ends (O'clock) -Maximum Distance (cm) -Circular Undermining No -Exudate Amt Medium -Exudate Type Serosanguineous -Wound Margin Distinct, Outline Attached -Granulation Amt Medium (34-66%) -Granulation Quality [place] -Slough/Fibrin Yes -Necrosis Amt Medium (34-66%) -Necrotic Tissue Type Adherent Slough -Structure Exposed N/A -Texture ([place]-wound Skin Appearance) Assessed -Moisture ([place]-wound Skin Appearance) Assessed -Color ([place]-wound Skin Appearance) Assessed -Temperature ([place]-wound Skin No Abnormality Appearance) (Pt Warm) -Tenderness on Palpation ([place]-wound No Skin Appearance) -Ulcer Cleansing Wound Cleanser -Foul Odor after Cleansing No -Anesthetic Used 5% Lidocaine Gel Lower Limb Edema Present Yes Left Calf (cm) 36 Left Ankle (cm) 23.5 WC - Nurse 2 - General Ulcer CM Notes Start: 11/08/23 11:03 Freq: Status: Active Protocol: Activity Type Activity Date Activity User E-sign Co-sign Detail Recorded Client Recorded Date Recorded By Document 11/08/23 11:26 Laptop 11/08/23 11:28 Document 11/15/23 11:13 Laptop 11/15/23 11:22 Document 11/22/23 10:19 Laptop 11/22/23 10:25 Document 11/29/23 10:23 Laptop 11/29/23 10:25 11/08/23 11/15/23 11/22/23 11:26 11:13 10:19 Wound Center Nurse 2 7. L lateral ankle superior -Time 11:14 10:20 -Correct Patient No Yes Yes -Correct Side, Site, Position No Yes Yes -Correct Procedure No Yes Yes -Procedure Performed No Yes Yes -Type of Procedure Debridement Debridement -Clinical Debridement Subcutaneous Subcutaneous -Tissue Removed Subcutaneous Subcutaneous -Post Debridement (cm) - Length 0 0.5 1.0 -Post Debridement (cm) - Width 0 0.3 0.5 -Post Debridement (cm) - Depth 0 0.2 0.8 -Total Square (Post) (cm) 0 0.15 0.50 -Area of Debridement (cm) - Length 0 0.5 1.0 -Area of Debridement (cm) - Width 0 0.3 0.5 -Total Square (Area) (cm) 0 0.15 0.50 -Tunneling No No -Undermining/Tunneling No No -Circular Undermining No No -Wound/Ulcer Outcome Healed- Not Healed Not Healed Epithelialized -Ulcer Cleansing Rinsed/ Irrigated with Saline -Foul Odor after Cleansing No -Bioengineered Tissue No -Bleeding Controlled with Pressure Pressure -Treatment Response Procedure Procedure Tolerated Well Tolerated Well -Offloading No No -Debridement - Subq, 1st 20sq cm Yes No 6. L medial ankle -Time 11:26 11:13 10:21 -Correct Patient Yes Yes Yes -Correct Side, Site, Position Yes Yes Yes -Correct Procedure Yes Yes Yes -Procedure Performed Yes Yes Yes -Type of Procedure Debridement Debridement Debridement -Clinical Debridement Subcutaneous Subcutaneous Subcutaneous -Tissue Removed Subcutaneous Subcutaneous Subcutaneous -Post Debridement (cm) - Length 0.8 1.0 1.0 -Post Debridement (cm) - Width 0.2 0.5 0.1 -Post Debridement (cm) - Depth 1.1 2.2 2.0 -Total Square (Post) (cm) 0.16 0.50 0.10 -Area of Debridement (cm) - Length 0.8 1 1.0 -Area of Debridement (cm) - Width 0.2 0.5 0.1 -Total Square (Area) (cm) 0.16 0.5 0.10 -Tunneling No No No -Undermining/Tunneling No No -Circular Undermining No No No -Wound/Ulcer Outcome Not Healed Not Healed Not Healed -Ulcer Cleansing Rinsed/ Rinsed/ Rinsed/ Irrigated with Irrigated with Irrigated with Saline Saline Saline -Foul Odor after Cleansing No No No -Bioengineered Tissue No No No -Bleeding Controlled with Pressure Pressure Pressure -Treatment Response Procedure Procedure Procedure Tolerated Well Tolerated Well Tolerated Well -Offloading Yes No No -Type of Offloading Surgical Shoe -Assistive Device(s) Walker -Debridement - Subq, 1st 20sq cm Yes No Yes Pain Scale: 0-10 Numeric Is Patient Pain Free? Yes Yes Yes 11/29/23 10:23 Wound Center Nurse 2 7. L lateral ankle superior -Time -Correct Patient No -Correct Side, Site, Position No -Correct Procedure No -Procedure Performed No -Type of Procedure -Clinical Debridement -Tissue Removed -Post Debridement (cm) - Length 0.1 -Post Debridement (cm) - Width 0.1 -Post Debridement (cm) - Depth 0.1 -Total Square (Post) (cm) 0.01 -Area of Debridement (cm) - Length 0.1 -Area of Debridement (cm) - Width 0.1 -Total Square (Area) (cm) 0.01 -Tunneling -Undermining/Tunneling -Circular Undermining -Wound/Ulcer Outcome Not Healed -Ulcer Cleansing -Foul Odor after Cleansing -Bioengineered Tissue -Bleeding Controlled with -Treatment Response -Offloading -Debridement - Subq, 20sq cm 6. L medial ankle -Time 10:24 -Correct Patient Yes -Correct Side, Site, Position Yes -Correct Procedure Yes -Procedure Performed Yes -Type of Procedure Debridement -Clinical Debridement Subcutaneous -Tissue Removed Subcutaneous -Post Debridement (cm) - Length 0.1 -Post Debridement (cm) - Width 0.1 -Post Debridement (cm) - Depth 2.5 -Total Square (Post) (cm) 0.01 -Area of Debridement (cm) - Length 0.1 -Area of Debridement (cm) - Width 0.1 -Total Square (Area) (cm) 0.01 -Tunneling No -Undermining/Tunneling No -Circular Undermining No -Wound/Ulcer Outcome Not Healed -Ulcer Cleansing Rinsed/ Irrigated with Saline -Foul Odor after Cleansing No -Bioengineered Tissue No -Bleeding Controlled with Pressure -Treatment Response Procedure Tolerated Well -Offloading No -Type of Offloading -Assistive Device(s) -Debridement - Subq, 1st 20sq cm Yes Pain Scale: 0-10 Numeric Is Patient Pain Free? Yes - Nurse 3 - General Ulcer D/C NN Start: 11/08/23 11:03 Freq: Status: Active Protocol: Activity Type Activity Date Activity User E-sign Co-sign Detail Recorded Client Recorded Date Recorded By Document 11/08/23 11:35 KW Desktop 11/08/23 11:35 KW Document 11/15/23 11:27 KW Desktop 11/15/23 11:31 KW Document 11/22/23 10:41 RB Desktop 11/22/23 10:42 RB 11/08/23 11/15/23 11/22/23 11:35 11:27 10:41 Wound Care Center Nurse 3 7. L lateral ankle superior -Ulcer Cleansing Rinsed/ Irrigated with Saline -Primary Dressing Applied Optilok 6.5x10 -Primary Dressing Covered/Secured with Dry Gauze Dry Gauze & Roll Gauze -Optilok 6.5x10 1 6. L medial ankle -Ulcer Cleansing Rinsed/ Irrigated with Saline -Primary Dressing Applied Nugauze, Plain Optilok 6.5x10 1/4in -Other Dressing nugauze moistened with dakins packed into wound -Primary Dressing Covered/Secured with Dry Gauze & Dry Gauze & Dry Gauze & Roll Gauze, Roll Gauze, Roll Gauze, Secured with Secured with Secured with Tape Tape Tape -Nugauze, Plain 1/4in 1 -Optilok 6.5x10 1 Left -Multi-Layered Wrap Application Multi-Layer Multi-Layer Comp - Left ($) Comp - Left ($) -Compression Wrap Sal Wrap Treatment Response Procedure Tolerated Well Pain Scale: 0-10 Numeric Is Patient Pain Free? Yes Yes Yes - Visit Discharge Discharge Condition Stable Stable Stable Ambulatory Status Wheelchair Wheelchair Wheelchair Transportation Private Auto Private Auto Private Auto Medication Reconcilliation completed & No No No provided to patient/care provider Clinical Summary of Care Provided Yes Yes Yes Assessment/Plan Assessment/Plan (1) Osteomyelitis of ankle, left, acute: CODE(S): M86.172 - Other acute osteomyelitis, left ankle and foot PLAN: Exam performed Patient great completed 6 weeks IV antibiotics*(meropenem) for osteomyelitis left foot. Left lateral ankle wound healed. Delayed primary closure to left medial ankle wound: Surgeon: Jordi Perkins D.P.M. Water Purifier: None Preoperative diagnosis: Left medial ankle wound Postoperative date diagnosis: Same Procedure: Delayed primary closure left medial ankle wound Anesthesia: None due to neuropathy Hemostasis: Compression Estimated blood loss: Minimal Materials: 2-0 Prolene Injectables: None Procedure in detail: After obtaining oral consent the left medial ankle wound was prepped with Betadine paint. The medial and lateral margins of the incisional wound were mobilized with undermining dissection using sterile dissecting scissors to allow for mobilization and good apposition of the medial and lateral flaps. The sites were then well opposed using a horizontal mattress stitch using 2-0 Prolene. Patient tolerated procedure anesthesia well in apparent satisfactory condition. Incisional sites dressed with Betadine Adaptic dry sterile dressing and 3M compression Patient will continue nonweightbearing Patient follow-up in 1 week (2) Charcot foot due to diabetes mellitus: CODE(S): E11.610 - 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 arthropathy (3) Abscess of bursa, left ankle and foot: CODE(S): M71.072 - Abscess of bursa, left ankle and foot (4) Cellulitis of left lower limb: CODE(S): L03.116 - Cellulitis of left lower limb (5) Non-pressure chronic ulcer of left 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: CODE(S): L97.322 - Non-pressure chronic ulcer of left 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 (6) Type 2 diabetes mellitus with diabetic polyneuropathy: CODE(S): E11.42 - Type 2 diabetes mellitus with diabetic polyneuropathy QUALIFIERS: Diabetes mellitus computer terminal operator insulin use: without computer terminal operator use Qualified Code(s): E11.42 - Type 2 diabetes mellitus with diabetic polyneuropathy
[2023-12-06 10:04] VITALS: BP 145/76; PULSE 94; RESP 18; TEMP 36.4; BMI 33.9
--- NOTE | 2023-12-06 11:07 | RAD_ITS ---
STUDY: X-RAY - LEFT FOOT CLINICAL: Male, 43 years old. Non-pressure chronic ulcer of left 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. TECHNIQUE: 3 views of the left foot. COMPARISON: Left foot radiographs dated 11/01/2023. FINDINGS: Stable osteopenia. Stable marked Charcot changes of the tibiotalar joint, subtalar joint, midfoot and tarsometatarsal joints. No interval change of ORIF fusion hardware at the tibiotalar and subtalar joint with long cancellus screw through the calcaneus extending to the cuboid. Unchanged multiple healed fractures of the second through fifth metatarsals. Stable marked diffuse soft tissue swelling of the foot. Unchanged multiple shards of bone in the soft tissues adjacent to the Charcot changes. RAD/Foot min 3 Views IMPRESSION: Stable ORIF with diffuse marked Charcot changes and diffuse soft tissue swelling. Electronically Signed: Fadi Baker MD at 11:19 EDT ,
--- NOTE | 2023-12-06 11:11 | PCM.WC.PN ---
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 History of Wound: 43-year-old male status post left Charcot reconstruction. Denies constitutional symptoms. Wound is improving today. Objective Data Objective Data Vital Signs: Vital Signs Temp Pulse Resp BP O2 Del Method O2 Flow Rate 97.6 F L 94 18 145/76 H Room Air 99 12/06/23 10:04 12/06/23 10:04 12/06/23 10:04 12/06/23 10:04 11/15/23 10:49 11/07/23 00:24 Oxygen Flow Rate (L/min) 99 Oxygen Delivery Method Room Air Weight: 113.398 kg Body Mass Index (BMI) 33.9 Physical Exam Narrative Neurovascular status unchanged Lateral left ankle wound healed. Medial ankle incision remains well-approximated with intact sutures. No acute signs of infection. No signs of DVT. rectus hindfoot to leg positioning. slight plantar convexity with forefoot dorsiflexed on hindfoot. Const alert and oriented x3 Debridement Note Debridement Note Post-Debridement Measurements and Additional Note: Post-Debridement Measurements/Treatment - Nurse 1 - General Ulcer Assessment Start: 11/08/23 11:03 Freq: Status: Active Protocol: .LOWEXT Activity Type Activity Date Activity User E-sign Co-sign Detail Recorded Client Recorded Date Recorded By Document 11/08/23 11:03 KW Desktop 11/08/23 11:11 KW Document 11/15/23 10:49 MT Desktop 11/15/23 11:03 MT Document 11/22/23 10:02 RB Desktop 11/22/23 10:06 RB Document 11/29/23 10:05 RB Desktop 11/29/23 10:08 RB Document 12/06/23 10:04 RB Desktop 12/06/23 10:07 RB 11/08/23 11/15/23 11/22/23 11:03 10:49 10:02 - Today's Visit Information Type of service Follow-up Visit Follow-up Visit Follow-up Visit (Physician/CERTIFICATION TECHNICIAN (Physician/CERTIFICATION TECHNICIAN (Physician/CERTIFICATION TECHNICIAN ) ) ) Arrival Mode Wheelchair Ambulatory Ambulatory Transfer Assistance None Accompanied by STEP-FATHER Patient Identification Verified (Name & Yes Yes Yes ) Patient Requires Transmission-Based No Precautions Finger Stick Blood Sugar(mg/dl) (if 115 indicated): Blood Sugar Stated by Patient Height and Weight Body Mass Index (BMI) 33.9 33.9 33.9 BMI Classification Obese Obese Obese Vital Signs Temperature (97.8 F-99.1 F) 96.9 F L 98 F 96.8 F L Temperature Source Temporal Temporal Temporal Pulse Rate (60-100) 93 92 85 Pulse Location Monitor Monitor Monitor Respiratory Rate (12-18) 18 18 18 Respiratory rate source Observation Observation Observation Oxygen Delivery Method Room Air Room Air Blood Pressure (90/60-120/80) 143/75 H 133/80 H 136/77 H Blood Pressure Mean (mm Hg) 97 97 96 Source Monitor Monitor Monitor Position Semi-Fowlers Sitting Semi-Fowlers Blood Pressure Location Left Arm Left Arm Left Arm History Since Last Visit- (Skip if this is Patient's initial visit) Have you changed medications since your No No last visit? Any new allergies or adverse reactions No No Had a fall/change in ADL's that may No No increase risk of falls Signs or symptoms of abuse and/or No No neglect since last visit Have you been in the hospital since your No No last visit? Has dressing in place as prescribed Yes Yes Has compression in place as prescribed Yes Yes Has offloadiing in place as prescribed Yes Yes Experienced any changes in pain level or No No management Left Footwear No Footwear Regular Shoe Right Footwear Regular Shoe Regular Shoe Pain Scale: 0-10 Numeric Is Patient Pain Free? Yes Yes Yes 11/29/23 12/06/23 10:05 10:04 - Today's Visit Information Type of service Follow-up Visit Follow-up Visit (Physician/CERTIFICATION TECHNICIAN (Physician/CERTIFICATION TECHNICIAN ) ) Arrival Mode Wheelchair Ambulatory Transfer Assistance None None Accompanied by Patient Identification Verified (Name & Yes Yes ) Patient Requires Transmission-Based No No Precautions Finger Stick Blood Sugar(mg/dl) (if indicated): Blood Sugar Height and Weight Body Mass Index (BMI) 33.9 33.9 BMI Classification Obese Obese Vital Signs Temperature (97.8 F-99.1 F) 97.4 F L 97.6 F L Temperature Source Temporal Temporal Pulse Rate (60-100) 88 94 Pulse Location Monitor Monitor Respiratory Rate (12-18) 18 18 Respiratory rate source Observation Observation Oxygen Delivery Method Blood Pressure (90/60-120/80) 129/77 H 145/76 H Blood Pressure Mean (mm Hg) 94 99 Source Monitor Monitor Position Semi-Fowlers Semi-Fowlers Blood Pressure Location Left Arm Left Arm History Since Last Visit- (Skip if this is Patient's initial visit) Have you changed medications since your No No last visit? Any new allergies or adverse reactions No No Had a fall/change in ADL's that may No No increase risk of falls Signs or symptoms of abuse and/or No No neglect since last visit Have you been in the hospital since your No No last visit? Has dressing in place as prescribed Yes Yes Has compression in place as prescribed Yes Yes Has offloadiing in place as prescribed No No Experienced any changes in pain level or No No management Left Footwear Right Footwear Pain Scale: 0-10 Numeric Is Patient Pain Free? Yes Yes WC - Nurse 1 - General Ulcer Measurement Start: 11/08/23 11:03 Freq: Status: Active Protocol: Activity Type Activity Date Activity User E-sign Co-sign Detail Recorded Client Recorded Date Recorded By Document 11/08/23 11:03 KW Desktop 11/08/23 11:11 KW Document 11/15/23 10:49 MT Desktop 11/15/23 11:03 MT Document 11/22/23 10:02 RB Desktop 11/22/23 10:06 RB Document 11/29/23 10:05 RB Desktop 11/29/23 10:08 RB Document 12/06/23 10:04 RB Desktop 12/06/23 10:07 RB 11/08/23 11/15/23 11/22/23 11:03 10:49 10:02 Wound Center Nurse 1 7. L lateral ankle superior -Combined with other wound No -Current Size (cm) - Length 0.1 0.2 -Current Size (cm) - Width 0.1 0.6 -Current Size (cm) - Depth 0.1 2 -Total Square Cm 0.01 0.12 -Epithelialization Large 67-100% -Tunneling No -Undermining/Tunneling No -Circular Undermining No -Exudate Amt None Present Medium -Exudate Type Serosanguineous -Wound Margin Distinct, Outline Attached -Granulation Amt Medium (34-66%) -Granulation Quality [place] -Slough/Fibrin Yes -Necrosis Amt Medium (34-66%) -Necrotic Tissue Type Adherent Slough -Structure Exposed N/A -Texture ([place]-wound Skin Appearance) Assessed, Scarring -Moisture ([place]-wound Skin Appearance) Dry/Scaly Assessed -Color ([place]-wound Skin Appearance) No Abnormality Assessed -Temperature ([place]-wound Skin No Abnormality No Abnormality Appearance) (Pt Warm) (Pt Warm) -Tenderness on Palpation ([place]-wound No Skin Appearance) -Ulcer Cleansing Rinsed/ Wound Cleanser Irrigated with Saline -Foul Odor after Cleansing No No -Anesthetic Used 5% Lidocaine 5% Lidocaine Gel Gel -Wound Comment(s) 6. L medial ankle -Combined with other wound No -Current Size (cm) - Length 0.8 1.0 0.3 -Current Size (cm) - Width 0.1 0.4 0.3 -Current Size (cm) - Depth 1.1 2.2 0.4 -Total Square Cm 0.08 0.40 0.09 -Epithelialization None Present -Tunneling No -Undermining/Tunneling Yes No -Undermining/Tunneling Starts (O'clock 2 ) -Undermining/Tunneling Ends (O'clock) 3 -Maximum Distance (cm) 1.5 -Circular Undermining No -Exudate Amt Medium Medium Medium -Exudate Type Serosanguineous Sanguineous Serosanguineous -Wound Margin Thickened Flat & Intact Distinct, Outline Attached -Granulation Amt Large (67-100%) Large (67-100%) Medium (34-66%) -Granulation Quality Red Pale,[place]kee [place]kee -Slough/Fibrin Yes No Yes -Necrosis Amt Small (1-33%) Medium (34-66%) -Necrotic Tissue Type Adherent Slough Adherent Slough -Structure Exposed N/A -Texture ([place]-wound Skin Appearance) No Abnormality Assessed Scarring -Moisture ([place]-wound Skin Appearance) No Abnormality Assessed Assessed -Color ([place]-wound Skin Appearance) No Abnormality Assessed Not Assessed -Temperature ([place]-wound Skin No Abnormality No Abnormality No Abnormality Appearance) (Pt Warm) (Pt Warm) (Pt Warm) -Tenderness on Palpation ([place]-wound No No No Skin Appearance) -Ulcer Cleansing Rinsed/ Soap and Water Wound Cleanser Irrigated with Saline -Foul Odor after Cleansing No No -Anesthetic Used 4% Lidocaine 5% Lidocaine 5% Lidocaine Solution Gel Gel Lower Limb Edema Present Yes Left Calf (cm) 34 Left Ankle (cm) 24.2 11/29/23 12/06/23 10:05 10:04 Wound Center Nurse 1 7. L lateral ankle superior -Combined with other wound No No -Current Size (cm) - Length 0.1 0.1 -Current Size (cm) - Width 0.1 0.1 -Current Size (cm) - Depth 0.1 0.1 -Total Square Cm 0.01 0.01 -Epithelialization -Tunneling No No -Undermining/Tunneling No No -Circular Undermining No No -Exudate Amt Medium Medium -Exudate Type Serosanguineous Serosanguineous -Wound Margin Distinct, Distinct, Outline Outline Attached Attached -Granulation Amt Medium (34-66%) Medium (34-66%) -Granulation Quality Mckee Mckee -Slough/Fibrin Yes Yes -Necrosis Amt Medium (34-66%) Medium (34-66%) -Necrotic Tissue Type Adherent Slough Adherent Slough -Structure Exposed N/A N/A -Texture ([place]-wound Skin Appearance) Assessed, Assessed Scarring -Moisture ([place]-wound Skin Appearance) Assessed Assessed -Color ([place]-wound Skin Appearance) Assessed Assessed -Temperature ([place]-wound Skin No Abnormality No Abnormality Appearance) (Pt Warm) (Pt Warm) -Tenderness on Palpation ([place]-wound No No Skin Appearance) -Ulcer Cleansing Wound Cleanser Wound Cleanser -Foul Odor after Cleansing No No -Anesthetic Used 5% Lidocaine 5% Lidocaine Gel Gel -Wound Comment(s) two sutures intact 6. L medial ankle -Combined with other wound No No -Current Size (cm) - Length 0.2 0.1 -Current Size (cm) - Width 0.7 0.1 -Current Size (cm) - Depth 3.5 0.1 -Total Square Cm 0.14 0.01 -Epithelialization -Tunneling No No -Undermining/Tunneling No No -Undermining/Tunneling Starts (O'clock ) -Undermining/Tunneling Ends (O'clock) -Maximum Distance (cm) -Circular Undermining No No -Exudate Amt Medium Medium -Exudate Type Serosanguineous Serosanguineous -Wound Margin Distinct, Distinct, Outline Outline Attached Attached -Granulation Amt Medium (34-66%) Medium (34-66%) -Granulation Quality [place]kee Mckee -Slough/Fibrin Yes Yes -Necrosis Amt Medium (34-66%) Medium (34-66%) -Necrotic Tissue Type Adherent Slough Adherent Slough -Structure Exposed N/A N/A -Texture ([place]-wound Skin Appearance) Assessed Assessed -Moisture ([place]-wound Skin Appearance) Assessed Assessed -Color ([place]-wound Skin Appearance) Assessed Assessed -Temperature ([place]-wound Skin No Abnormality No Abnormality Appearance) (Pt Warm) (Pt Warm) -Tenderness on Palpation ([place]-wound No No Skin Appearance) -Ulcer Cleansing Wound Cleanser Wound Cleanser -Foul Odor after Cleansing No No -Anesthetic Used 5% Lidocaine 5% Lidocaine Gel Gel Lower Limb Edema Present Yes Yes Left Calf (cm) 36 34.5 Left Ankle (cm) 23.5 24 WC - Nurse 2 - General Ulcer CM Notes Start: 11/08/23 11:03 Freq: Status: Active Protocol: Activity Type Activity Date Activity User E-sign Co-sign Detail Recorded Client Recorded Date Recorded By Document 11/08/23 11:26 [employer] Laptop 11/08/23 11:28 Document 11/15/23 11:13 [employer] Laptop 11/15/23 11:22 Document 11/22/23 10:19 [employer] Laptop 11/22/23 10:25 Document 11/29/23 10:23 Laptop 11/29/23 10:25 Edit Result 11/29/23 10:23 [employer] (1) Laptop 12/05/23 15:26 [employer] Document 12/06/23 10:35 [employer] Laptop 12/06/23 10:36 (1) 6. L medial ankle - Debridement - Subq, 1st 20sq cm Yes => No 11/08/23 11/15/23 11/22/23 11:26 11:13 10:19 Wound Center Nurse 2 7. L lateral ankle superior -Time 11:14 10:20 -Correct Patient No Yes Yes -Correct Side, Site, Position No Yes Yes -Correct Procedure No Yes Yes -Procedure Performed No Yes Yes -Type of Procedure Debridement Debridement -Clinical Debridement Subcutaneous Subcutaneous -Tissue Removed Subcutaneous Subcutaneous -Post Debridement (cm) - Length 0 0.5 1.0 -Post Debridement (cm) - Width 0 0.3 0.5 -Post Debridement (cm) - Depth 0 0.2 0.8 -Total Square (Post) (cm) 0 0.15 0.50 -Area of Debridement (cm) - Length 0 0.5 1.0 -Area of Debridement (cm) - Width 0 0.3 0.5 -Total Square (Area) (cm) 0 0.15 0.50 -Tunneling No No -Undermining/Tunneling No No -Circular Undermining No No -Wound/Ulcer Outcome Healed- Not Healed Not Healed Epithelialized -Ulcer Cleansing Rinsed/ Irrigated with Saline -Foul Odor after Cleansing No -Bioengineered Tissue No -Bleeding Controlled with Pressure Pressure -Treatment Response Procedure Procedure Tolerated Well Tolerated Well -Offloading No No -Debridement - Subq, 1st 20sq cm Yes No 6. L medial ankle -Time 11:26 11:13 10:21 -Correct Patient Yes Yes Yes -Correct Side, Site, Position Yes Yes Yes -Correct Procedure Yes Yes Yes -Procedure Performed Yes Yes Yes -Type of Procedure Debridement Debridement Debridement -Clinical Debridement Subcutaneous Subcutaneous Subcutaneous -Tissue Removed Subcutaneous Subcutaneous Subcutaneous -Post Debridement (cm) - Length 0.8 1.0 1.0 -Post Debridement (cm) - Width 0.2 0.5 0.1 -Post Debridement (cm) - Depth 1.1 2.2 2.0 -Total Square (Post) (cm) 0.16 0.50 0.10 -Area of Debridement (cm) - Length 0.8 1 1.0 -Area of Debridement (cm) - Width 0.2 0.5 0.1 -Total Square (Area) (cm) 0.16 0.5 0.10 -Tunneling No No No -Undermining/Tunneling No No -Circular Undermining No No No -Wound/Ulcer Outcome Not Healed Not Healed Not Healed -Ulcer Cleansing Rinsed/ Rinsed/ Rinsed/ Irrigated with Irrigated with Irrigated with Saline Saline Saline -Foul Odor after Cleansing No No No -Bioengineered Tissue No No No -Bleeding Controlled with Pressure Pressure Pressure -Treatment Response Procedure Procedure Procedure Tolerated Well Tolerated Well Tolerated Well -Offloading Yes No No -Type of Offloading Surgical Shoe -Assistive Device(s) Walker -Debridement - Subq, 1st 20sq cm Yes No Yes Pain Scale: 0-10 Numeric Is Patient Pain Free? Yes Yes Yes 11/29/23 12/06/23 10:23 10:35 Wound Center Nurse 2 7. L lateral ankle superior -Time -Correct Patient No No -Correct Side, Site, Position No No -Correct Procedure No No -Procedure Performed No No -Type of Procedure -Clinical Debridement -Tissue Removed -Post Debridement (cm) - Length 0.1 0 -Post Debridement (cm) - Width 0.1 0 -Post Debridement (cm) - Depth 0.1 0 -Total Square (Post) (cm) 0.01 0 -Area of Debridement (cm) - Length 0.1 0 -Area of Debridement (cm) - Width 0.1 0 -Total Square (Area) (cm) 0.01 0 -Tunneling -Undermining/Tunneling -Circular Undermining -Wound/Ulcer Outcome Not Healed Healed- Epithelialized -Ulcer Cleansing -Foul Odor after Cleansing -Bioengineered Tissue -Bleeding Controlled with -Treatment Response -Offloading -Debridement - Subq, 20sq cm 6. L medial ankle -Time 10:24 -Correct Patient Yes No -Correct Side, Site, Position Yes No -Correct Procedure Yes No -Procedure Performed Yes No -Type of Procedure Debridement -Clinical Debridement Subcutaneous -Tissue Removed Subcutaneous -Post Debridement (cm) - Length 0.1 0.1 -Post Debridement (cm) - Width 0.1 0.1 -Post Debridement (cm) - Depth 2.5 0.1 -Total Square (Post) (cm) 0.01 0.01 -Area of Debridement (cm) - Length 0.1 0.1 -Area of Debridement (cm) - Width 0.1 0.1 -Total Square (Area) (cm) 0.01 0.01 -Tunneling No -Undermining/Tunneling No -Circular Undermining No -Wound/Ulcer Outcome Not Healed Not Healed -Ulcer Cleansing Rinsed/ Irrigated with Saline -Foul Odor after Cleansing No -Bioengineered Tissue No -Bleeding Controlled with Pressure -Treatment Response Procedure Tolerated Well -Offloading No -Type of Offloading -Assistive Device(s) -Debridement - Subq, 20sq cm No Pain Scale: 0-10 Numeric Is Patient Pain Free? Yes Yes WC - Nurse 3 - General Ulcer D/C NN Start: 11/08/23 11:03 Freq: Status: Active Protocol: Activity Type Activity Date Activity User E-sign Co-sign Detail Recorded Client Recorded Date Recorded By Document 11/08/23 11:35 KW Desktop 11/08/23 11:35 KW Document 11/15/23 11:27 KW Desktop 11/15/23 11:31 KW Document 11/22/23 10:41 RB Desktop 11/22/23 10:42 RB Document 11/29/23 10:48 RB Desktop 11/29/23 10:48 RB Document 12/06/23 10:53 KW Desktop 12/06/23 10:54 KW 11/08/23 11/15/23 11/22/23 11:35 11:27 10:41 Wound Care Center Nurse 3 7. L lateral ankle superior -Ulcer Cleansing Rinsed/ Irrigated with Saline -Primary Dressing Applied Optilok 6.5x10 -Primary Dressing Covered/Secured with Dry Gauze Dry Gauze & Roll Gauze -Other Covering -Optilok 6.5x10 1 6. L medial ankle -Ulcer Cleansing Rinsed/ Irrigated with Saline -Primary Dressing Applied Nugauze, Plain Optilok 6.5x10 1/4in -Other Dressing nugauze moistened with dakins packed into wound -Primary Dressing Covered/Secured with Dry Gauze & Dry Gauze & Dry Gauze & Roll Gauze, Roll Gauze, Roll Gauze, Secured with Secured with Secured with Tape Tape Tape -Nugauze, Plain 1/4in 1 -Optilok 6.5x10 1 Left -Multi-Layered Wrap Application Multi-Layer Multi-Layer Comp - Left ($) Comp - Left ($) -Compression Wrap Sal Wrap Treatment Response Procedure Tolerated Well Pain Scale: 0-10 Numeric Is Patient Pain Free? Yes Yes Yes WC - Visit Discharge Discharge Condition Stable Stable Stable Ambulatory Status Wheelchair Wheelchair Wheelchair Transportation Private Auto Private Auto Private Auto Medication Reconcilliation completed & No No No provided to patient/care provider Clinical Summary of Care Provided Yes Yes Yes 11/29/23 12/06/23 10:48 10:53 Wound Care Center Nurse 3 7. L lateral ankle superior -Ulcer Cleansing betadine -Primary Dressing Applied -Primary Dressing Covered/Secured with -Other Covering abd -Optilok 6.5x10 6. L medial ankle -Ulcer Cleansing -Primary Dressing Applied NonAdherent NonAdherent Contact Layer Contact Layer -Other Dressing betadine gauze -Primary Dressing Covered/Secured with Dry Gauze & Roll Gauze, Secured with Tape -Nugauze, Plain 1/4in -Optilok 6.5x10 Left -Multi-Layered Wrap Application Multi-Layer Multi-Layer Comp - Left ($) Comp - Left ($) -Compression Wrap Treatment Response Pain Scale: 0-10 Numeric Is Patient Pain Free? Yes Yes WC - Visit Discharge Discharge Condition Stable Stable Ambulatory Status Wheelchair Wheelchair Transportation Private Auto Private Auto Medication Reconcilliation completed & No No provided to patient/care provider Clinical Summary of Care Provided Yes Yes Assessment/Plan Assessment/Plan (1) Osteomyelitis of ankle, left, acute: CODE(S): M86.172 - Other acute osteomyelitis, left ankle and foot PLAN: Exam performed Patient great completed 6 weeks IV antibiotics*(meropenem) for osteomyelitis left foot. Left lateral ankle wound healed. Incisional site to medial ankle well-approximated with intact sutures. Redressed with antibiotic ointment Adaptic 3M compression wrap. Radiographs reordered. Patient will continue nonweightbearing Patient follow-up in 1 week (2) Charcot foot due to diabetes mellitus: CODE(S): E11.610 - 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 arthropathy (3) Abscess of bursa, left ankle and foot: CODE(S): M71.072 - Abscess of bursa, left ankle and foot (4) Cellulitis of left lower limb: CODE(S): L03.116 - Cellulitis of left lower limb (5) Non-pressure chronic ulcer of left 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: CODE(S): L97.322 - Non-pressure chronic ulcer of left 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 (6) Type 2 diabetes mellitus with diabetic polyneuropathy: CODE(S): E11.42 - Type 2 diabetes mellitus with diabetic polyneuropathy QUALIFIERS: Diabetes mellitus retirement insulin use: without joint terminal attack controller use Qualified Code(s): E11.42 - Type 2 diabetes mellitus with diabetic polyneuropathy
--- NOTE | 2023-12-06 11:20 | RAD_ITS ---
STUDY: X-RAY - LEFT ANKLE REASON FOR EXAM: Male, 43 years old. Non-pressure chronic ulcer of left 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. TECHNIQUE: 3 views of the left ankle. COMPARISON: Left ankle radiographs dated 11/01/2023. FINDINGS: Stable ORIF of distal tibiofibular joint and subtalar joint with long cancellus screw extending through the calcaneus to the cuboid. Stable Charcot changes of the tibiotalar joint, subtalar joint, talonavicular joint, midfoot and tarsometatarsal joints with bone fragments adjacent to the Charcot changes. Stable diffuse soft tissue swelling. RAD/Ankle min 3 Views IMPRESSION: No interval change in ORIF of left ankle with marked Charcot changes and diffuse soft tissue swelling. Electronically Signed: Fadi Baker MD at 11:16 EDT ,
== END 2023-12-06 23:59 | disposition home or self-care (01) ==
LOC: WC 10:00
PROVIDERS: PCP Student in an Organized Health Care Education/Training Program; Referring Provider Surgery; Visit Provider Podiatrist
DX: E11.69 Type 2 diabetes mellitus with other specified complication (principal); A48.0 Gas gangrene; E11.621 Type 2 diabetes mellitus with foot ulcer; E11.622 Type 2 diabetes mellitus with other skin ulcer; L97.322 Non-pressure chronic ulcer of left 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; M86.172 Other acute osteomyelitis, left ankle and foot; E11.42 Type 2 diabetes mellitus with diabetic polyneuropathy; I10 Essential (primary) hypertension; L03.116 Cellulitis of left lower limb; L02.416 Cutaneous abscess of left lower limb
CPT/HCPCS: 11042; 29581; 73610; 73630; 99213; G0463

== ENCOUNTER 2024-01-03 09:45 | Outpatient (RCR) | payer BC, SELFPAY ==
[2023-12-07 00:41] VITALS: BP 145/76; PULSE 94; RESP 18; TEMP 36.4; BMI 33.9
[2023-12-13 09:47] VITALS: BP 144/76; PULSE 91; RESP 18; TEMP 35.9; BMI 33.9
--- NOTE | 2023-12-13 10:35 | PN.PCM_ITS ---
History of Present Illness Date of Service: 12/13/23 Chief Complaint: Diabetic left foot infection with gas gangrene and osteom yelitis; Li grade 3 diabetic foot infection. History of Wound: 43-year-old male status post left Charcot reconstruction. Denies constitutional symptoms. Wound is improving today. Objective Data Objective Data Vital Signs: Vital Signs Temp Pulse Resp BP O2 Del Method O2 Flow Rate 96.7 F L 91 18 144/76 H Room Air 99 12/13/23 09:47 12/13/23 09:47 12/13/23 09:47 12/13/23 09:47 12/13/23 09:47 12/07/23 00:41 Oxygen Flow Rate (L/min) 99 Oxygen Delivery Method Room Air Weight: 113.398 kg Body Mass Index (BMI) 33.9 Physical Exam Narrative Neurovascular status unchanged Lateral left ankle wound healed. Medial ankle incision remains well- approximated with intact sutures. No acute signs of infection. No signs of DVT. rectus hindfoot to leg positioning. slight plantar convexity with forefoot dorsiflexed on hindfoot. Const alert and oriented x3 Debridement Note Debridement Note Post-Debridement Measurements and Additional Note: Post-Debridement Measurements/Treatment - Nurse 1 - General Ulcer Assessment Start: 12/13/23 09:47 Freq: Status: Active Protocol: GWEN Activity Type Activity Date Activity User E-sign Co-sign Detail Recorded Client Recorded Date Recorded By Document 12/13/23 09:47 KW Desktop 12/13/23 09:54 KW 12/13/23 09:47 - Today's Visit Information Type of service Follow-up Visit (Physician/WIRE ANNEALER ) Arrival Mode Wheelchair Accompanied by STEP FATHER Patient Identification Verified (Name & Yes ) Height and Weight Body Mass Index (BMI) 33.9 BMI Classification Obese Vital Signs Temperature (97.8 F-99.1 F) 96.7 F L Temperature Source Temporal Pulse Rate (60-100) 91 Pulse Location Monitor Respiratory Rate (12-18) 18 Respiratory rate source Observation Oxygen Delivery Method Room Air Blood Pressure (90/60-120/80) 144/76 H Blood Pressure Mean (mm Hg) 98 Source Monitor Position Sitting Blood Pressure Location Left Arm History Since Last Visit- (Skip if this is Patient's initial visit) Have you changed medications since your Yes last visit? Any new allergies or adverse reactions No Had a fall/change in ADL's that may No increase risk of falls Signs or symptoms of abuse and/or No neglect since last visit Have you been in the hospital since your No last visit? Has dressing in place as prescribed Yes Has compression in place as prescribed Yes Has offloadiing in place as prescribed Yes Experienced any changes in pain level or No management Left Footwear No Footwear Right Footwear Regular Shoe Pain Scale: 0-10 Numeric Is Patient Pain Free? Yes WC - Nurse 1 - General Ulcer Measurement Start: 12/13/23 09:47 Freq: Status: Active Protocol: Activity Type Activity Date Activity User E-sign Co-sign Detail Recorded Client Recorded Date Recorded By Document 12/13/23 09:47 KW Desktop 12/13/23 09:54 KW 12/13/23 09:47 Wound Center Nurse 1 6. L medial ankle -Current Size (cm) - Length 0.1 -Current Size (cm) - Width 0.1 -Current Size (cm) - Depth 0.1 -Total Square Cm 0.01 -Texture ([place]-wound Skin Appearance) Assessed -Moisture ([place]-wound Skin Appearance) Assessed -Color ([place]-wound Skin Appearance) Assessed -Temperature ([place]-wound Skin No Abnormality Appearance) (Pt Warm) -Ulcer Cleansing Soap and Water -Foul Odor after Cleansing No -Wound Comment(s) SUTURES INTACT, NO LIDOCAINE APPLIED Left Calf (cm) 36 Left Ankle (cm) 23 MARY - Nurse 2 - General Ulcer CM Notes Start: 12/13/23 09:47 Freq: Status: Active Protocol: Activity Type Activity Date Activity User E-sign Co-sign Detail Recorded Client Recorded Date Recorded By Document 12/13/23 10:29 [id number] 12/13/23 10:29 BRIAN 12/13/23 10:29 Wound Center Nurse 2 6. L medial ankle -Correct Patient No -Correct Side, Site, Position No -Correct Procedure No -Procedure Performed No -Wound/Ulcer Outcome Not Healed -Debridement - Subq, 1st 20sq cm No Pain Scale: 0-10 Numeric Is Patient Pain Free? Yes MARY - Nurse 3 - General Ulcer D/C NN Start: 12/13/23 09:47 Freq: Status: Active Protocol: Activity Type Activity Date Activity User E-sign Co-sign Detail Recorded Client Recorded Date Recorded By Document 12/13/23 10:21 KW Desktop 12/13/23 10:21 KW 12/13/23 10:21 Wound Care Center Nurse 3 6. L medial ankle -Primary Dressing Applied NonAdherent Contact Layer -Primary Dressing Covered/Secured with Dry Gauze Left -Multi-Layered Wrap Application Multi-Layer Comp - Left ($) Pain Scale: 0-10 Numeric Is Patient Pain Free? Yes WC - Visit Discharge Discharge Condition Stable Ambulatory Status Wheelchair Transportation Private Auto Accompanied by STEP FATHER Medication Reconcilliation completed & No provided to patient/care provider Clinical Summary of Care Provided Yes Assessment/Plan Assessment/Plan (1) Osteomyelitis of ankle, left, acute: CODE(S): M86.172 - Other acute osteomyelitis, left ankle and foot PLAN: Exam performed Radiographs reviewed. Demonstrated adequate ankle fusion and subtalar fusion at this time. Alignment of the foot and ankle appears rectus. Some plantar midfoot excess Charcot bone formation noted. At current it does not appear that this would contribute to any wound formation or rocker-bottom foot type as the foot appears rectus and plantigrade to allow for bracing. Patient kash completed 6 weeks IV antibiotics*(meropenem) for osteomyelitis left foot. Left lateral ankle wound healed. Incisional site to medial ankle well-approximated with intact sutures. Redressed with antibiotic ointment Adaptic 3M compression wrap. Patient will continue nonweightbearing Patient follow-up in 1 week (2) Charcot foot due to diabetes mellitus: CODE(S): E11.610 - 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 arthropathy (3) Abscess of bursa, left ankle and foot: CODE(S): M71.072 - Abscess of bursa, left ankle and foot (4) Cellulitis of left lower limb: CODE(S): L03.116 - Cellulitis of left lower limb (5) Non-pressure chronic ulcer of left 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: CODE(S): L97.322 - Non-pressure chronic ulcer of left 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 (6) Type 2 diabetes mellitus with diabetic polyneuropathy: CODE(S): E11.42 - Type 2 diabetes mellitus with diabetic polyneuropathy QUALIFIERS: Diabetes mellitus household appliances service technician insulin use: without household appliances service technician use Qualified Code(s): E11.42 - Type 2 diabetes mellitus with diabetic polyneuropathy
[2023-12-20 09:45] VITALS: BP 139/82; PULSE 96; RESP 18; TEMP 36.2; BMI 33.9
--- NOTE | 2023-12-20 10:18 | PN.PCM_ITS ---
History of Present Illness Date of Service: 12/20/23 Chief Complaint: Diabetic left foot infection with gas gangrene and osteom yelitis; Li grade 3 diabetic foot infection. History of Wound: 43-year-old male status post left Charcot reconstruction. Denies constitutional symptoms. Wound is improving today. Objective Data Objective Data Vital Signs: Vital Signs Temp Pulse Resp BP O2 Del Method O2 Flow Rate 97.2 F L 96 18 139/82 H Room Air 99 12/20/23 09:45 12/20/23 09:45 12/20/23 09:45 12/20/23 09:45 12/13/23 09:47 12/07/23 00:41 Oxygen Flow Rate (L/min) 99 Oxygen Delivery Method Room Air Weight: 113.398 kg Body Mass Index (BMI) 33.9 Physical Exam Narrative Neurovascular status unchanged Lateral left ankle wound healed. Medial ankle incision healed upon suture removal. No signs of DVT. rectus hindfoot to leg positioning. slight plantar convexity with forefoot dorsiflexed on hindfoot. Const alert and oriented x3 Debridement Note Debridement Note Post-Debridement Measurements and Additional Note: Post-Debridement Measurements/Treatment - Nurse 1 - General Ulcer Assessment Start: 12/13/23 09:47 Freq: Status: Active Protocol: .LOWEXT Activity Type Activity Date Activity User E-sign Co-sign Detail Recorded Client Recorded Date Recorded By Document 12/13/23 09:47 KW Desktop 12/13/23 09:54 KW Document 12/20/23 09:45 [place] [id number] 12/20/23 09:47 RB 12/13/23 12/20/23 09:47 09:45 - Today's Visit Information Type of service Follow-up Visit Follow-up Visit (Physician/ECHO TECHNICIAN (Physician/ECHO TECHNICIAN ) ) Arrival Mode Wheelchair Ambulatory Transfer Assistance None Accompanied by STEP FATHER Patient Identification Verified (Name & Yes Yes ) Patient Requires Transmission-Based No Precautions Height and Weight Body Mass Index (BMI) 33.9 33.9 BMI Classification Obese Obese Vital Signs Temperature (97.8 F-99.1 F) 96.7 F L 97.2 F L Temperature Source Temporal Temporal Pulse Rate (60-100) 91 96 Pulse Location Monitor Monitor Respiratory Rate (12-18) 18 18 Respiratory rate source Observation Observation Oxygen Delivery Method Room Air Blood Pressure (90/60-120/80) 144/76 H 139/82 H Blood Pressure Mean (mm Hg) 98 101 Source Monitor Monitor Position Sitting Semi-Fowlers Blood Pressure Location Left Arm Left Arm History Since Last Visit- (Skip if this is Patient's initial visit) Have you changed medications since your Yes No last visit? Any new allergies or adverse reactions No No Had a fall/change in ADL's that may No No increase risk of falls Signs or symptoms of abuse and/or No No neglect since last visit Have you been in the hospital since your No No last visit? Has dressing in place as prescribed Yes Yes Has compression in place as prescribed Yes Yes Has offloadiing in place as prescribed Yes No Experienced any changes in pain level or No No management Left Footwear No Footwear Right Footwear Regular Shoe Pain Scale: 0-10 Numeric Is Patient Pain Free? Yes Yes WC - Nurse 1 - General Ulcer Measurement Start: 12/13/23 09:47 Freq: Status: Active Protocol: Activity Type Activity Date Activity User E-sign Co-sign Detail Recorded Client Recorded Date Recorded By Document 12/13/23 09:47 KW Desktop 12/13/23 09:54 KW Document 12/20/23 09:45 [place] [id number] 12/20/23 09:47 RB 12/13/23 12/20/23 09:47 09:45 Wound Center Nurse 1 6. L medial ankle -Combined with other wound No -Current Size (cm) - Length 0.1 0.1 -Current Size (cm) - Width 0.1 0.1 -Current Size (cm) - Depth 0.1 0.1 -Total Square Cm 0.01 0.01 -Tunneling No -Undermining/Tunneling No -Circular Undermining No -Exudate Amt Medium -Exudate Type Serosanguineous -Wound Margin Distinct, Outline Attached -Granulation Amt Medium (34-66%) -Granulation Quality [place] -Slough/Fibrin Yes -Necrosis Amt Medium (34-66%) -Necrotic Tissue Type Adherent Slough -Structure Exposed N/A -Texture ([place]-wound Skin Appearance) Assessed Assessed -Moisture ([place]-wound Skin Appearance) Assessed Assessed -Color ([place]-wound Skin Appearance) Assessed Assessed -Temperature ([place]-wound Skin No Abnormality No Abnormality Appearance) (Pt Warm) (Pt Warm) -Tenderness on Palpation ([place]-wound No Skin Appearance) -Ulcer Cleansing Soap and Water Wound Cleanser -Foul Odor after Cleansing No No -Anesthetic Used 4% Lidocaine Solution -Wound Comment(s) SUTURES INTACT, 2 sutures NO LIDOCAINE intact APPLIED Lower Limb Edema Present Yes Left Calf (cm) 36 33.5 Left Ankle (cm) 23 23.5 WC - Nurse 2 - General Ulcer CM Notes Start: 12/13/23 09:47 Freq: Status: Active Protocol: Activity Type Activity Date Activity User E-sign Co-sign Detail Recorded Client Recorded Date Recorded By Document 12/13/23 10:29 JF [id number] 12/13/23 10:29 JF Document 12/20/23 10:03 [place] [id number] 12/20/23 10:04 DS Edit Result 12/20/23 10:03 DS (1) [id number] 12/20/23 10:07 DS (1) 6. L medial ankle - Post Debridement (cm) - Length => 0 - Post Debridement (cm) - Width => 0 - Post Debridement (cm) - Depth => 0 - Total Square (Post) (cm) => 0 - Area of Debridement (cm) - Length => 0 - Area of Debridement (cm) - Width => 0 - Total Square (Area) (cm) => 0 - Wound Comment(s) => suture removed 12/13/23 12/20/23 10:29 10:03 Wound Center Nurse 2 6. L medial ankle -Time 10:03 -Correct Patient No No -Correct Side, Site, Position No No -Correct Procedure No No -Procedure Performed No No -Post Debridement (cm) - Length 0 -Post Debridement (cm) - Width 0 -Post Debridement (cm) - Depth 0 -Total Square (Post) (cm) 0 -Area of Debridement (cm) - Length 0 -Area of Debridement (cm) - Width 0 -Total Square (Area) (cm) 0 -Wound/Ulcer Outcome Not Healed Healed- Epithelialized -Debridement - Subq, 1st 20sq cm No -Wound Comment(s) suture removed Pain Scale: 0-10 Numeric Is Patient Pain Free? Yes Yes WC - Nurse 3 - General Ulcer D/C NN Start: 12/13/23 09:47 Freq: Status: Active Protocol: Activity Type Activity Date Activity User E-sign Co-sign Detail Recorded Client Recorded Date Recorded By Document 12/13/23 10:21 KW Desktop 12/13/23 10:21 KW Document 12/20/23 10:10 KW [id number] 12/20/23 10:10 KW 12/13/23 12/20/23 10:21 10:10 Wound Care Center Nurse 3 6. L medial ankle -Primary Dressing Applied NonAdherent Contact Layer -Primary Dressing Covered/Secured with Dry Gauze Left -Multi-Layered Wrap Application Multi-Layer Comp - Left ($) -Tubular Bandage Double Layer -Size of Tubigrip Used Size E -Size E ($) 2 Pain Scale: 0-10 Numeric Is Patient Pain Free? Yes Yes WC - Visit Discharge Discharge Condition Stable Stable Ambulatory Status Wheelchair Wheelchair Transportation Private Auto Private Auto Accompanied by STEP FATHER Medication Reconcilliation completed & No No provided to patient/care provider Clinical Summary of Care Provided Yes Yes Assessment/Plan Assessment/Plan (1) Osteomyelitis of ankle, left, acute: CODE(S): M86.172 - Other acute osteomyelitis, left ankle and foot PLAN: Exam performed At current it does not appear that this would contribute to any wound formation or rocker-bottom foot type as the foot appears rectus and plantigrade to allow for bracing. patient awaiting casting for AFO on left all wounds healed on left return to compression stockings initiate protected weightbearing on left with cam boot and walker follow up in 2 weeks (2) Charcot foot due to diabetes mellitus: CODE(S): E11.610 - 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 arthropathy (3) Abscess of bursa, left ankle and foot: CODE(S): M71.072 - Abscess of bursa, left ankle and foot (4) Cellulitis of left lower limb: CODE(S): L03.116 - Cellulitis of left lower limb (5) Non-pressure chronic ulcer of left 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: CODE(S): L97.322 - Non-pressure chronic ulcer of left 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 (6) Type 2 diabetes mellitus with diabetic polyneuropathy: CODE(S): E11.42 - Type 2 diabetes mellitus with diabetic polyneuropathy QUALIFIERS: Diabetes mellitus long chain quiller tender insulin use: without long chain quiller tender use Qualified Code(s): E11.42 - Type 2 diabetes mellitus with diabetic p olyneuropathy
[2024-01-03 09:49] VITALS: BP 135/72; PULSE 94; RESP 18; TEMP 36.3; BMI 33.9
--- NOTE | 2024-01-03 10:05 | PCM.WC.PN ---
History of Present Illness Date of Service: 01/03/24 Chief Complaint: Diabetic left foot infection with gas gangrene and osteomyelitis; Li grade 3 diabetic foot infection. History of Wound: 43-year-old male status post left Charcot reconstruction. Denies constitutional symptoms. Wound is improving today. Objective Data Objective Data Vital Signs: Vital Signs Temp Pulse Resp BP O2 Del Method O2 Flow Rate 97.3 F L 94 18 135/72 H Room Air 99 01/03/24 09:49 01/03/24 09:49 01/03/24 09:49 01/03/24 09:49 01/03/24 09:49 12/07/23 00:41 Oxygen Flow Rate (L/min) 99 Oxygen Delivery Method Room Air Weight: 113.398 kg Body Mass Index (BMI) 33.9 Physical Exam Narrative Neurovascular status unchanged Lateral left ankle wound healed. Medial ankle incision healed upon suture removal. No signs of DVT. rectus hindfoot to leg positioning. slight plantar convexity with forefoot dorsiflexed on hindfoot. Const alert and oriented x3 Debridement Note Debridement Note Post-Debridement Measurements and Additional Note: Post-Debridement Measurements/Treatment - Nurse 1 - General Ulcer Assessment Start: 12/13/23 09:47 Freq: Status: Active Protocol: .LOWEXApril Activity Type Activity Date Activity User E-sign Co-sign Detail Recorded Client Recorded Date Recorded By Document 12/13/23 09:47 KW Desktop 12/13/23 09:54 KW Document 12/20/23 09:45 [place] [id number] 12/20/23 09:47 RB Document 01/03/24 09:49 KW wound center 01/03/24 09:56 KW 12/13/23 12/20/23 01/03/24 09:47 09:45 09:49 - Today's Visit Information Type of service Follow-up Visit Follow-up Visit Follow-up Visit (Physician/STEEL POST INSTALLER SUPERVISOR (Physician/STEEL POST INSTALLER SUPERVISOR (Physician/STEEL POST INSTALLER SUPERVISOR ) ) ) Arrival Mode Wheelchair Ambulatory Ambulatory Transfer Assistance None Accompanied by STEP FATHER Patient Identification Verified (Name & Yes Yes Yes ) Patient Requires Transmission-Based No Precautions Height and Weight Body Mass Index (BMI) 33.9 33.9 33.9 BMI Classification Obese Obese Obese Vital Signs Temperature (97.8 F-99.1 F) 96.7 F L 97.2 F L 97.3 F L Temperature Source Temporal Temporal Temporal Pulse Rate (60-100) 91 96 94 Pulse Location Monitor Monitor Monitor Respiratory Rate (12-18) 18 18 18 Respiratory rate source Observation Observation Observation Oxygen Delivery Method Room Air Room Air Blood Pressure (90/60-120/80) 144/76 H 139/82 H 135/72 H Blood Pressure Mean (mm Hg) 98 101 93 Source Monitor Monitor Monitor Position Sitting Semi-Fowlers Sitting Blood Pressure Location Left Arm Left Arm Right Arm History Since Last Visit- (Skip if this is Patient's initial visit) Have you changed medications since your Yes No No last visit? Any new allergies or adverse reactions No No No Had a fall/change in ADL's that may No No No increase risk of falls Signs or symptoms of abuse and/or No No No neglect since last visit Have you been in the hospital since your No No No last visit? Has dressing in place as prescribed Yes Yes Yes Has compression in place as prescribed Yes Yes Yes Has offloadiing in place as prescribed Yes No Yes Experienced any changes in pain level or No No No management Left Footwear No Footwear Removable Cast Walker/Walking Boot Right Footwear Regular Shoe Regular Shoe Pain Scale: 0-10 Numeric Is Patient Pain Free? Yes Yes Yes WC - Nurse 1 - General Ulcer Measurement Start: 12/13/23 09:47 Freq: Status: Active Protocol: Activity Type Activity Date Activity User E-sign Co-sign Detail Recorded Client Recorded Date Recorded By Document 12/13/23 09:47 KW Desktop 12/13/23 09:54 KW Document 12/20/23 09:45 RB [id number] 12/20/23 09:47 RB 12/13/23 12/20/23 09:47 09:45 Wound Center Nurse 1 6. L medial ankle -Combined with other wound No -Current Size (cm) - Length 0.1 0.1 -Current Size (cm) - Width 0.1 0.1 -Current Size (cm) - Depth 0.1 0.1 -Total Square Cm 0.01 0.01 -Tunneling No -Undermining/Tunneling No -Circular Undermining No -Exudate Amt Medium -Exudate Type Serosanguineous -Wound Margin Distinct, Outline Attached -Granulation Amt Medium (34-66%) -Granulation Quality [place] -Slough/Fibrin Yes -Necrosis Amt Medium (34-66%) -Necrotic Tissue Type Adherent Slough -Structure Exposed N/A -Texture ([place]-wound Skin Appearance) Assessed Assessed -Moisture ([place]-wound Skin Appearance) Assessed Assessed -Color ([place]-wound Skin Appearance) Assessed Assessed -Temperature ([place]-wound Skin No Abnormality No Abnormality Appearance) (Pt Warm) (Pt Warm) -Tenderness on Palpation ([place]-wound No Skin Appearance) -Ulcer Cleansing Soap and Water Wound Cleanser -Foul Odor after Cleansing No No -Anesthetic Used 4% Lidocaine Solution -Wound Comment(s) SUTURES INTACT, 2 sutures NO LIDOCAINE intact APPLIED Lower Limb Edema Present Yes Left Calf (cm) 36 33.5 Left Ankle (cm) 23 23.5 WC - Nurse 2 - General Ulcer CM Notes Start: 12/13/23 09:47 Freq: Status: Active Protocol: Activity Type Activity Date Activity User E-sign Co-sign Detail Recorded Client Recorded Date Recorded By Document 12/13/23 10:29 [id number] 12/13/23 10:29 Document 12/20/23 10:03 [place] [id number] 12/20/23 10:04 DS Edit Result 12/20/23 10:03 DS (1) [id number] 12/20/23 10:07 DS (1) 6. L medial ankle - Post Debridement (cm) - Length => 0 - Post Debridement (cm) - Width => 0 - Post Debridement (cm) - Depth => 0 - Total Square (Post) (cm) => 0 - Area of Debridement (cm) - Length => 0 - Area of Debridement (cm) - Width => 0 - Total Square (Area) (cm) => 0 - Wound Comment(s) => suture removed 12/13/23 12/20/23 10:29 10:03 Wound Center Nurse 2 6. L medial ankle -Time 10:03 -Correct Patient No No -Correct Side, Site, Position No No -Correct Procedure No No -Procedure Performed No No -Post Debridement (cm) - Length 0 -Post Debridement (cm) - Width 0 -Post Debridement (cm) - Depth 0 -Total Square (Post) (cm) 0 -Area of Debridement (cm) - Length 0 -Area of Debridement (cm) - Width 0 -Total Square (Area) (cm) 0 -Wound/Ulcer Outcome Not Healed Healed- Epithelialized -Debridement - Subq, 1st 20sq cm No -Wound Comment(s) suture removed Pain Scale: 0-10 Numeric Is Patient Pain Free? Yes Yes - Nurse 3 - General Ulcer D/C NN Start: 12/13/23 09:47 Freq: Status: Active Protocol: Activity Type Activity Date Activity User E-sign Co-sign Detail Recorded Client Recorded Date Recorded By Document 12/13/23 10:21 KW Desktop 12/13/23 10:21 KW Document 12/20/23 10:10 KW [id number] 12/20/23 10:10 KW 12/13/23 12/20/23 10:21 10:10 Wound Care Center Nurse 3 6. L medial ankle -Primary Dressing Applied NonAdherent Contact Layer -Primary Dressing Covered/Secured with Dry Gauze Left -Multi-Layered Wrap Application Multi-Layer Comp - Left ($) -Tubular Bandage Double Layer -Size of Tubigrip Used Size E -Size E ($) 2 Pain Scale: 0-10 Numeric Is Patient Pain Free? Yes Yes - Visit Discharge Discharge Condition Stable Stable Ambulatory Status Wheelchair Wheelchair Transportation Private Auto Private Auto Accompanied by CONSUELO BILLS Medication Reconcilliation completed & No No provided to patient/care provider Clinical Summary of Care Provided Yes Yes Assessment/Plan Assessment/Plan (1) Osteomyelitis of ankle, left, acute: CODE(S): M86.172 - Other acute osteomyelitis, left ankle and foot PLAN: Exam performed all wounds healed, no signs of infection At current it does not appear that this would contribute to any wound formation or rocker-bottom foot type as the foot appears rectus and plantigrade to allow for bracing. patient awaiting AFO dispensing on left all wounds healed on left return to compression stockings transition to protected weightbearing on left with cam boot and a cane rx for diabetic shoes follow up in 2 weeks (2) Charcot foot due to diabetes mellitus: CODE(S): E11.610 - 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 arthropathy (3) Abscess of bursa, left ankle and foot: CODE(S): M71.072 - Abscess of bursa, left ankle and foot (4) Cellulitis of left lower limb: CODE(S): L03.116 - Cellulitis of left lower limb (5) Non-pressure chronic ulcer of left 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: CODE(S): L97.322 - Non-pressure chronic ulcer of left 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 (6) Type 2 diabetes mellitus with diabetic polyneuropathy: CODE(S): E11.42 - Type 2 diabetes mellitus with diabetic polyneuropathy QUALIFIERS: Diabetes mellitus oil heaterman insulin use: without oil heaterman use Qualified Code(s): E11.42 - Type 2 diabetes mellitus with diabetic polyneuropathy
--- NOTE | 2024-01-05 12:05 | WC ---
01/03/2024 (H) LEFT MEDIAL ANKLE
== END 2024-01-03 16:22 | disposition home or self-care (01) ==
LOC: WC 09:45
PROVIDERS: PCP Student in an Organized Health Care Education/Training Program; Referring Provider Surgery; Visit Provider Podiatrist
DX: E11.69 Type 2 diabetes mellitus with other specified complication (principal); A48.0 Gas gangrene; E11.622 Type 2 diabetes mellitus with other skin ulcer; L97.322 Non-pressure chronic ulcer of left 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; M86.172 Other acute osteomyelitis, left ankle and foot; E11.42 Type 2 diabetes mellitus with diabetic polyneuropathy; E11.610 Type 2 diabetes mellitus with diabetic neuropathic arthropathy; I10 Essential (primary) hypertension; M71.072 Abscess of bursa, left ankle and foot; L03.116 Cellulitis of left lower limb
CPT/HCPCS: 29581; 99212; 99213; G0463

== ENCOUNTER 2024-03-06 11:15 | Outpatient (RCR) | payer BC, SELFPAY ==
[2024-02-21 10:55] VITALS: BP 142/81; PULSE 85; RESP 18; TEMP 36.3; BMI 33.5
--- NOTE | 2024-02-21 11:21 | PN.PCM_ITS ---
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 History of Wound: 43-year-old male status post left Charcot reconstruction. Denies constitutional symptoms. Wound is improving today. Progress of Wound: Patient noticed some increased drainage from the medial and lateral ankle sites over the weekend. Patient was added to the schedule. Patient denies any fever chills nausea vomiting chest pain calf pain shortness of breath. Patient has been ambulating in a cam boot to left lower extremity. Patient has undergone significant left lower extremity Charcot reconstruction. He is transitioning to weightbearing. 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 Objective Data Objective Data Vital Signs: Vital Signs Temp Pulse Resp BP 97.4 F L 85 18 142/81 H 02/21/24 10:55 02/21/24 10:55 02/21/24 10:55 02/21/24 10:55 Weight: 108.862 kg Body Mass Index (BMI) 33.5 Physical Exam Narrative Arterial status intact. +2 pitting edema to left lower extremity. Full-thickness wound to medial lateral ankle incisional sites as well as the distal left hallux. This is to left lower extremity. No acute signs of infection. No deep undermining or probing noted. Wounds demonstrate clean granular bases postdebridement. Pre and postdebridement measurements documented nursing notes. Rectus alignment right foot and ankle rectus alignment left foot and ankle. Slight dorsiflexion of forefoot relative to hindfoot. Const alert and oriented x3 Debridement Note Debridement Note Post-Debridement Measurements and Additional Note: Post-Debridement Measurements/Treatment - Nurse 1 - General Ulcer Assessment Start: 02/21/24 10:55 Freq: Status: Active Protocol: [email or web address] Activity Type Activity Date Activity User E-sign Co-sign Detail Recorded Client Recorded Date Recorded By Document 02/21/24 10:55 RB wound 02/21/24 10:58 RB 02/21/24 10:55 - Today's Visit Information Type of service Initial Visit Arrival Mode Ambulatory Transfer Assistance None Patient Identification Verified (Name & Yes ) Patient Requires Transmission-Based No Precautions Height and Weight Height 5 ft 11 in Weight 108.862 kg Weight in Pounds 240.0 lbs Body Mass Index (BMI) 33.5 BMI Classification Obese BSA - Johnnie 2.28 Vital Signs Temperature (97.8 F-99.1 F) 97.4 F L Temperature Source Temporal Pulse Rate (60-100) 85 Pulse Location Monitor Respiratory Rate (12-18) 18 Respiratory rate source Observation Blood Pressure (90/60-120/80) 142/81 H Blood Pressure Mean (mm Hg) 101 Source Monitor Position Semi-Fowlers Blood Pressure Location Left Arm History Since Last Visit- (Skip if this is Patient's initial visit) Have you changed medications since your No last visit? Any new allergies or adverse reactions No Had a fall/change in ADL's that may No increase risk of falls Signs or symptoms of abuse and/or No neglect since last visit Have you been in the hospital since your No last visit? Has dressing in place as prescribed Yes Has compression in place as prescribed Yes Has offloadiing in place as prescribed No Experienced any changes in pain level or No management Pain Scale: 0-10 Numeric Is Patient Pain Free? Yes WC - Nurse 1 - General Ulcer Measurement Start: 02/21/24 10:55 Freq: Status: Active Protocol: Activity Type Activity Date Activity User E-sign Co-sign Detail Recorded Client Recorded Date Recorded By Document 02/21/24 10:55 RB wound 02/21/24 10:58 RB 02/21/24 10:55 Wound Center Nurse 1 10. L lateral ankle -Combined with other wound No -Current Size (cm) - Length 0.1 -Current Size (cm) - Width 0.1 -Current Size (cm) - Depth 0.1 -Total Square Cm 0.01 -Photo Taken Yes -Tunneling No -Undermining/Tunneling No -Circular Undermining No -Exudate Amt Medium -Exudate Type Serosanguineous -Wound Margin Distinct, Outline Attached -Granulation Amt Medium (34-66%) -Granulation Quality [place] -Slough/Fibrin Yes -Necrosis Amt Medium (34-66%) -Necrotic Tissue Type Adherent Slough -Structure Exposed N/A -Texture ([place]-wound Skin Appearance) Assessed -Moisture ([place]-wound Skin Appearance) Maceration -Color ([place]-wound Skin Appearance) Assessed -Temperature ([place]-wound Skin No Abnormality Appearance) (Pt Warm) -Tenderness on Palpation ([place]-wound No Skin Appearance) -Ulcer Cleansing Wound Cleanser -Foul Odor after Cleansing No -Anesthetic Used 5% Lidocaine Gel 9. L medial ankle -Combined with other wound No -Current Size (cm) - Length 0.6 -Current Size (cm) - Width 1 -Current Size (cm) - Depth 0.1 -Total Square Cm 0.6 -Photo Taken Yes -Tunneling No -Undermining/Tunneling No -Circular Undermining No -Exudate Amt Medium -Exudate Type Serosanguineous -Wound Margin Distinct, Outline Attached -Granulation Amt Large (67-100%) -Granulation Quality Hyper- granulation, [place],Red -Slough/Fibrin Yes -Necrosis Amt Small (1-33%) -Necrotic Tissue Type Adherent Slough -Structure Exposed N/A -Texture ([place]-wound Skin Appearance) Assessed -Moisture ([place]-wound Skin Appearance) Maceration -Color ([place]-wound Skin Appearance) Assessed -Temperature ([place]-wound Skin No Abnormality Appearance) (Pt Warm) -Tenderness on Palpation ([place]-wound No Skin Appearance) -Ulcer Cleansing Wound Cleanser -Foul Odor after Cleansing No -Anesthetic Used 5% Lidocaine Gel Lower Limb Edema Present Yes Left Calf (cm) 36.5 Left Ankle (cm) 25.5 WC - Nurse 2 - General Ulcer CM Notes Start: 02/21/24 10:55 Freq: Status: Active Protocol: Activity Type Activity Date Activity User E-sign Co-sign Detail Recorded Client Recorded Date Recorded By Document 02/21/24 11:05 [facility] [email or web address] 02/21/24 11:15 [facility] 02/21/24 11:05 Wound Center Nurse 2 #11- L GR TOE -Time 11:10 -Correct Patient Yes -Correct Side, Site, Position Yes -Correct Procedure Yes -Procedure Performed Yes -Type of Procedure Debridement -Clinical Debridement Subcutaneous -Tissue Removed Subcutaneous -Post Debridement (cm) - Length 1.2 -Post Debridement (cm) - Width 0.7 -Post Debridement (cm) - Depth 0.1 -Total Square (Post) (cm) 0.84 -Area of Debridement (cm) - Length 1.2 -Area of Debridement (cm) - Width 0.7 -Total Square (Area) (cm) 0.84 -Tunneling No -Undermining/Tunneling No -Circular Undermining No -Wound/Ulcer Outcome Not Healed -Ulcer Cleansing Rinsed/ Irrigated with Saline -Foul Odor after Cleansing No -Bioengineered Tissue No -Bleeding Controlled with Pressure -Treatment Response Procedure Tolerated Well -Debridement - Subq, 1st 20sq cm Yes 10. L lateral ankle -Time 11:08 -Correct Patient Yes -Correct Side, Site, Position Yes -Correct Procedure Yes -Procedure Performed Yes -Type of Procedure Debridement -Clinical Debridement Subcutaneous -Tissue Removed Subcutaneous -Post Debridement (cm) - Length 0.2 -Post Debridement (cm) - Width 0.2 -Post Debridement (cm) - Depth 0.1 -Total Square (Post) (cm) 0.04 -Area of Debridement (cm) - Length 0.2 -Area of Debridement (cm) - Width 0.2 -Total Square (Area) (cm) 0.04 -Tunneling No -Undermining/Tunneling No -Circular Undermining No -Wound/Ulcer Outcome Not Healed -Ulcer Cleansing Rinsed/ Irrigated with Saline -Foul Odor after Cleansing No -Bioengineered Tissue No -Bleeding Controlled with Pressure -Treatment Response Procedure Tolerated Well -Debridement - Subq, 1st 20sq cm No 9. L medial ankle -Time 11:08 -Correct Patient Yes -Correct Side, Site, Position Yes -Correct Procedure Yes -Procedure Performed Yes -Type of Procedure Debridement -Clinical Debridement Subcutaneous -Tissue Removed Subcutaneous -Post Debridement (cm) - Length 1.0 -Post Debridement (cm) - Width 0.5 -Post Debridement (cm) - Depth 0.1 -Total Square (Post) (cm) 0.50 -Area of Debridement (cm) - Length 1.0 -Area of Debridement (cm) - Width 0.5 -Total Square (Area) (cm) 0.50 -Tunneling No -Undermining/Tunneling No -Circular Undermining No -Wound/Ulcer Outcome Not Healed -Ulcer Cleansing Rinsed/ Irrigated with Saline -Foul Odor after Cleansing No -Bioengineered Tissue No -Bleeding Controlled with Pressure -Treatment Response Procedure Tolerated Well -Debridement - Subq, 1st 20sq cm No Pain Scale: 0-10 Numeric Is Patient Pain Free? Yes Assessment/Plan Assessment/Plan (1) Non-pressure chronic ulcer of other part of left foot with necrosis of bone: CODE(S): L97.524 - Non-pressure chronic ulcer of other part of left foot with necrosis of bone PLAN: Exam performed. Will plan for aggressive edema management. Left medial ankle and distal hallux wound were excisionally debrided down to including level of subcutaneous tissue of all nonviable tissue using a #15 blade. Patient tolerated procedure well. No anesthesia due to neuropathy. Hemostasis obtained with light compression. Pre and postdebridement measurements documented. Plan for daily Betadine Adaptic and gauze to left hallux. Plan for Betadine Adaptic to medial lateral ankles with 3M compression wrap change twice weekly. Continue weightbearing as tolerated in cam boot left lower extremity. Recommend elevation above level of heart at rest. Follow-up in 1 week. 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
[2024-02-24 09:58] VITALS: BP 127/75; PULSE 87; RESP 18; TEMP 36.4; BMI 33.5
[2024-02-28 10:57] VITALS: BP 126/84; PULSE 91; RESP 20; TEMP 35.9; BMI 33.5
--- NOTE | 2024-02-28 11:17 | PCM.WC.PN ---
History of Present Illness Date of Service: 02/28/24 Chief Complaint: Diabetic left foot infection with gas gangrene and osteomyelitis; Li grade 3 diabetic foot infection. History of Wound: 43-year-old male status post left Charcot reconstruction. Denies constitutional symptoms. Wound is improving today. Progress of Wound: Patient noticed some increased drainage from the medial and lateral ankle sites over the weekend. Patient was added to the schedule. Patient denies any fever chills nausea vomiting chest pain calf pain shortness of breath. Patient has been ambulating in a cam boot to left lower extremity. Patient has undergone significant left lower extremity Charcot reconstruction. He is transitioning to weightbearing. 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 Objective Data Objective Data Vital Signs: Vital Signs Temp Pulse Resp BP 96.6 F L 91 20 H 126/84 H 02/28/24 10:57 02/28/24 10:57 02/28/24 10:57 02/28/24 10:57 Weight: 108.862 kg Body Mass Index (BMI) 33.5 Physical Exam Narrative Arterial status intact. +2 pitting edema to left lower extremity. Full-thickness wound to medial lateral ankle incisional sites as well as the distal left hallux. This is to left lower extremity. No acute signs of infection. No deep undermining or probing noted. Wounds demonstrate clean granular bases postdebridement. Pre and postdebridement measurements documented nursing notes. Focal area of fluctuance to lateral ankle, upon I+D, small 3cc purulent abscess noted. Rectus alignment right foot and ankle rectus alignment left foot and ankle. Slight dorsiflexion of forefoot relative to hindfoot. Const alert and oriented x3 Debridement Note Debridement Note Post-Debridement Measurements and Additional Note: Post-Debridement Measurements/Treatment MARY - Nurse 1 - General Ulcer Assessment Start: 02/21/24 10:55 Freq: Status: Active Protocol: GWEN Activity Type Activity Date Activity User E-sign Co-sign Detail Recorded Client Recorded Date Recorded By Document 02/21/24 10:55 RB wound 02/21/24 10:58 RB Document 02/24/24 09:58 RB wound 02/24/24 10:02 RB Document 02/28/24 10:57 RB wound 02/28/24 10:59 RB 07/02/24/24 02/28/24 10:55 09:58 10:57 WC - Today's Visit Information Type of service Initial Visit Nurse-only Follow-up Visit Visit (Physician/TERMITE CONTROL SERVICE REPRESENTATIVE ) Arrival Mode Ambulatory Ambulatory,Cane Ambulatory Transfer Assistance None None None Patient Identification Verified (Name & Yes Yes Yes ) Patient Requires Transmission-Based No No No Precautions Height and Weight Height 5 ft 11 in Weight 108.862 kg Weight in Pounds 240.0 lbs Body Mass Index (BMI) 33.5 33.5 33.5 BMI Classification Obese Obese Obese BSA - Johnnie 2.28 Vital Signs Temperature (97.8 F-99.1 F) 97.4 F L 97.6 F L 96.6 F L Temperature Source Temporal Temporal Temporal Pulse Rate (60-100) 85 87 91 Pulse Location Monitor Apical Monitor Respiratory Rate (12-18) 18 18 20 H Respiratory rate source Observation Observation Observation Blood Pressure (90/60-120/80) 142/81 H 127/75 H 126/84 H Blood Pressure Mean (mm Hg) 101 92 98 Source Monitor Monitor Monitor Position Semi-Fowlers Semi-Fowlers Semi-Fowlers Blood Pressure Location Left Arm Left Arm Left Arm History Since Last Visit- (Skip if this is Patient's initial visit) Have you changed medications since your No No No last visit? Any new allergies or adverse reactions No No No Had a fall/change in ADL's that may No No No increase risk of falls Signs or symptoms of abuse and/or No No No neglect since last visit Have you been in the hospital since your No No No last visit? Has dressing in place as prescribed Yes Yes Yes Has compression in place as prescribed Yes Yes Yes Has offloadiing in place as prescribed No No No Experienced any changes in pain level or No No No management Pain Scale: 0-10 Numeric Is Patient Pain Free? Yes Yes Yes - Nurse 1 - General Ulcer Measurement Start: 02/21/24 10:55 Freq: Status: Active Protocol: Activity Type Activity Date Activity User E-sign Co-sign Detail Recorded Client Recorded Date Recorded By Document 02/21/24 10:55 RB wound 02/21/24 10:58 RB Document 02/24/24 09:58 RB wound 02/24/24 10:02 RB Document 02/28/24 10:57 RB wound 02/28/24 10:59 RB 02/21/24 02/24/24 02/28/24 10:55 09:58 10:57 Wound Center Nurse 1 #11- L GR TOE -Combined with other wound No -Current Size (cm) - Length 0.3 -Current Size (cm) - Width 0.7 -Current Size (cm) - Depth 0.1 -Total Square Cm 0.21 -Photo Taken Yes -Tunneling No -Undermining/Tunneling No -Circular Undermining No -Exudate Amt Medium -Exudate Type Serosanguineous -Wound Margin Distinct, Outline Attached -Granulation Amt Medium (34-66%) -Granulation Quality [place] -Slough/Fibrin Yes -Necrosis Amt Medium (34-66%) -Necrotic Tissue Type Adherent Slough -Structure Exposed N/A -Texture ([place]-wound Skin Appearance) Assessed -Moisture ([place]-wound Skin Appearance) Assessed -Color ([place]-wound Skin Appearance) Assessed -Temperature ([place]-wound Skin No Abnormality Appearance) (Pt Warm) -Tenderness on Palpation ([place]-wound No Skin Appearance) -Ulcer Cleansing Wound Cleanser Wound Cleanser -Foul Odor after Cleansing No -Anesthetic Used 5% Lidocaine Gel 10. L lateral ankle -Combined with other wound No No -Current Size (cm) - Length 0.1 0.1 -Current Size (cm) - Width 0.1 0.1 -Current Size (cm) - Depth 0.1 0.1 -Total Square Cm 0.01 0.01 -Photo Taken Yes Yes -Tunneling No No -Undermining/Tunneling No No -Circular Undermining No No -Exudate Amt Medium Medium -Exudate Type Serosanguineous Serosanguineous -Wound Margin Distinct, Distinct, Outline Outline Attached Attached -Granulation Amt Medium (34-66%) Large (67-100%) -Granulation Quality [place] Hyper- granulation, [place] -Slough/Fibrin Yes Yes -Necrosis Amt Medium (34-66%) Small (1-33%) -Necrotic Tissue Type Adherent Slough Adherent Slough -Structure Exposed N/A N/A -Texture ([place]-wound Skin Appearance) Assessed Assessed, Scarring -Moisture ([place]-wound Skin Appearance) Maceration Assessed -Color ([place]-wound Skin Appearance) Assessed Assessed -Temperature ([place]-wound Skin No Abnormality No Abnormality Appearance) (Pt Warm) (Pt Warm) -Tenderness on Palpation ([place]-wound No No Skin Appearance) -Ulcer Cleansing Wound Cleanser Wound Cleanser Wound Cleanser -Foul Odor after Cleansing No No -Anesthetic Used 5% Lidocaine 5% Lidocaine Gel Gel 9. L medial ankle -Combined with other wound No No -Current Size (cm) - Length 0.6 0.4 -Current Size (cm) - Width 1 0.6 -Current Size (cm) - Depth 0.1 0.1 -Total Square Cm 0.6 0.24 -Photo Taken Yes Yes -Tunneling No No -Undermining/Tunneling No No -Circular Undermining No No -Exudate Amt Medium Large Medium -Exudate Type Serosanguineous Serosanguineous Serosanguineous -Wound Margin Distinct, Distinct, Outline Outline Attached Attached -Granulation Amt Large (67-100%) Medium (34-66%) -Granulation Quality Hyper- [place] granulation, [place],Red -Slough/Fibrin Yes Yes -Necrosis Amt Small (1-33%) Medium (34-66%) -Necrotic Tissue Type Adherent Slough Adherent Slough -Structure Exposed N/A N/A -Texture ([place]-wound Skin Appearance) Assessed Scarring -Moisture ([place]-wound Skin Appearance) Maceration Assessed -Color ([place]-wound Skin Appearance) Assessed Assessed -Temperature ([place]-wound Skin No Abnormality No Abnormality Appearance) (Pt Warm) (Pt Warm) -Tenderness on Palpation ([place]-wound No No Skin Appearance) -Ulcer Cleansing Wound Cleanser Wound Cleanser Wound Cleanser -Foul Odor after Cleansing No No -Anesthetic Used 5% Lidocaine 5% Lidocaine Gel Gel Lower Limb Edema Present Yes Yes Left Calf (cm) 36.5 37.5 36.5 Left Ankle (cm) 25.5 25.2 25.5 WC - Nurse 2 - General Ulcer CM Notes Start: 02/21/24 10:55 Freq: Status: Active Protocol: Activity Type Activity Date Activity User E-sign Co-sign Detail Recorded Client Recorded Date Recorded By Document 02/21/24 11:05 [facility] [email or web address] 02/21/24 11:15 BM 02/21/24 11:05 Wound Center Nurse 2 #11- L GR TOE -Time 11:10 -Correct Patient Yes -Correct Side, Site, Position Yes -Correct Procedure Yes -Procedure Performed Yes -Type of Procedure Debridement -Clinical Debridement Subcutaneous -Tissue Removed Subcutaneous -Post Debridement (cm) - Length 1.2 -Post Debridement (cm) - Width 0.7 -Post Debridement (cm) - Depth 0.1 -Total Square (Post) (cm) 0.84 -Area of Debridement (cm) - Length 1.2 -Area of Debridement (cm) - Width 0.7 -Total Square (Area) (cm) 0.84 -Tunneling No -Undermining/Tunneling No -Circular Undermining No -Wound/Ulcer Outcome Not Healed -Ulcer Cleansing Rinsed/ Irrigated with Saline -Foul Odor after Cleansing No -Bioengineered Tissue No -Bleeding Controlled with Pressure -Treatment Response Procedure Tolerated Well -Debridement - Subq, 1st 20sq cm Yes 10. L lateral ankle -Time 11:08 -Correct Patient Yes -Correct Side, Site, Position Yes -Correct Procedure Yes -Procedure Performed Yes -Type of Procedure Debridement -Clinical Debridement Subcutaneous -Tissue Removed Subcutaneous -Post Debridement (cm) - Length 0.2 -Post Debridement (cm) - Width 0.2 -Post Debridement (cm) - Depth 0.1 -Total Square (Post) (cm) 0.04 -Area of Debridement (cm) - Length 0.2 -Area of Debridement (cm) - Width 0.2 -Total Square (Area) (cm) 0.04 -Tunneling No -Undermining/Tunneling No -Circular Undermining No -Wound/Ulcer Outcome Not Healed -Ulcer Cleansing Rinsed/ Irrigated with Saline -Foul Odor after Cleansing No -Bioengineered Tissue No -Bleeding Controlled with Pressure -Treatment Response Procedure Tolerated Well -Debridement - Subq, 1st 20sq cm No 9. L medial ankle -Time 11:08 -Correct Patient Yes -Correct Side, Site, Position Yes -Correct Procedure Yes -Procedure Performed Yes -Type of Procedure Debridement -Clinical Debridement Subcutaneous -Tissue Removed Subcutaneous -Post Debridement (cm) - Length 1.0 -Post Debridement (cm) - Width 0.5 -Post Debridement (cm) - Depth 0.1 -Total Square (Post) (cm) 0.50 -Area of Debridement (cm) - Length 1.0 -Area of Debridement (cm) - Width 0.5 -Total Square (Area) (cm) 0.50 -Tunneling No -Undermining/Tunneling No -Circular Undermining No -Wound/Ulcer Outcome Not Healed -Ulcer Cleansing Rinsed/ Irrigated with Saline -Foul Odor after Cleansing No -Bioengineered Tissue No -Bleeding Controlled with Pressure -Treatment Response Procedure Tolerated Well -Debridement - Subq, 1st 20sq cm No Pain Scale: 0-10 Numeric Is Patient Pain Free? Yes WC - Nurse 3 - General Ulcer D/C NN Start: 02/21/24 10:55 Freq: Status: Active Protocol: Activity Type Activity Date Activity User E-sign Co-sign Detail Recorded Client Recorded Date Recorded By Document 02/21/24 11:29 DL [email or web address] 02/21/24 11:34 DL Document 02/24/24 09:58 RB wound 02/24/24 10:02 RB 02/21/24 02/24/24 11:29 09:58 Wound Care Center Nurse 3 #11- L GR TOE -Ulcer Cleansing Rinsed/ betadine Irrigated with Saline -Foul Odor after Cleansing No -Primary Dressing Applied NonAdherent Contact Layer -Other Dressing betadine -Primary Dressing Covered/Secured with Dry Gauze, Dry Gauze, Secured with Secured with Tape Tape 10. L lateral ankle -Ulcer Cleansing Rinsed/ betadine Irrigated with Saline -Foul Odor after Cleansing No -Primary Dressing Applied NonAdherent Contact Layer -Other Dressing betadine -Primary Dressing Covered/Secured with Dry Gauze,Dry Dry Gauze,Dry Gauze & Roll Gauze & Roll Gauze,Secured Gauze,Secured with Tape with Tape 9. L medial ankle -Ulcer Cleansing Rinsed/ betadine Irrigated with Saline -Foul Odor after Cleansing No -Primary Dressing Applied NonAdherent Contact Layer -Other Dressing abd -Primary Dressing Covered/Secured with Dry Gauze & Dry Gauze,Dry Roll Gauze, Gauze & Roll Secured with Gauze,Secured Tape with Tape Left -Multi-Layered Wrap Application Multi-Layer Multi-Layer Comp - Left ($) Comp - Left ($) Treatment Response Procedure Procedure Tolerated Well Tolerated Well Vital Signs Temperature (97.8 F-99.1 F) 97.6 F L Temperature Source Temporal Pulse Rate (60-100) 87 Pulse Location Apical Respiratory Rate (12-18) 18 Respiratory rate source Observation Blood Pressure (90/60-120/80) 127/75 H Blood Pressure Mean (mm Hg) 92 Source Monitor Position Semi-Fowlers Blood Pressure Location Left Arm Pain Scale: 0-10 Numeric Is Patient Pain Free? Yes Yes WC - Visit Discharge Discharge Condition Stable Stable Ambulatory Status Ambulatory Ambulatory,Cane Transportation Private Auto Private Auto Medication Reconcilliation completed & No provided to patient/care provider Clinical Summary of Care Provided Yes Assessment/Plan Assessment/Plan (1) Non-pressure chronic ulcer of other part of left foot with necrosis of bone: CODE(S): L97.524 - Non-pressure chronic ulcer of other part of left foot with necrosis of bone PLAN: Exam performed. Will plan for aggressive edema management. Left medial ankle and distal hallux wound were excisionally debrided down to including level of subcutaneous tissue of all nonviable tissue using a #15 blade. Patient tolerated procedure well. No anesthesia due to neuropathy. Hemostasis obtained with light compression. Pre and postdebridement measurements documented. Focal I+D performed to lateral left ankle, 3cc purulence drainage from site, flushed/cultured. Plan for daily Betadine Adaptic and gauze to left hallux, medial and lateral ankle. Plan for 3M compression wrap change twice weekly. Continue weightbearing as tolerated in cam boot left lower extremity. Recommend elevation above level of heart at rest. continue ambulation in cam boot assisted by walker. Follow-up in 1 week. 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
[2024-03-02 08:54] VITALS: BMI 33.5
[2024-03-06 11:16] VITALS: BP 145/76; PULSE 80; RESP 18; TEMP 35.7; BMI 33.5
--- NOTE | 2024-03-06 11:38 | PN.PCM_ITS ---
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 History of Wound: 43-year-old male status post left Charcot reconstruction. Denies constitutional symptoms. Wound is improving today. Progress of Wound: Patient noticed some increased drainage from the medial and lateral ankle sites over the weekend. Patient was added to the schedule. Patient denies any fever chills nausea vomiting chest pain calf pain shortness of breath. Patient has been ambulating in a cam boot to left lower extremity. Patient has undergone significant left lower extremity Charcot reconstruction. He is transitioning to weightbearing. 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 Objective Data Objective Data Vital Signs: Vital Signs Temp Pulse Resp BP O2 Del Method 96.2 F L 80 18 145/76 H Room Air 03/06/24 11:16 03/06/24 11:16 03/06/24 11:16 03/06/24 11:16 03/06/24 11:16 Oxygen Delivery Method Room Air Weight: 108.862 kg Body Mass Index (BMI) 33.5 Lab / Micro Data Micro: Microbiology 02/28/24 13:02 Wound - Ankle Gram Stain - Final 02/28/24 13:02 Wound - Ankle Wound Culture - Final Enterococcus faecalis 02/28/24 13:02 Wound - Ankle Anaerobic Culture - Final No anaerobic bacteria isolated. Physical Exam Narrative Arterial status intact. +2 pitting edema to left lower extremity. Full-thickness wound to medial lateral ankle incisional sites as well as the distal left hallux. This is to left lower extremity. No acute signs of infection. No deep undermining or probing noted. Wounds demonstrate clean granular bases postdebridement. Pre and postdebridement measurements documented nursing notes. Focal area of fluctuance to lateral ankle, upon I+D, small 3cc purulent abscess noted. Rectus alignment right foot and ankle rectus alignment left foot and ankle. Slight dorsiflexion of forefoot relative to hindfoot. Const alert and oriented x3 Debridement Note Debridement Note Post-Debridement Measurements and Additional Note: Post-Debridement Measurements/Treatment WC - Nurse 1 - General Ulcer Assessment Start: 02/21/24 10:55 Freq: Status: Active Protocol: [email or web address] Activity Type Activity Date Activity User E-sign Co-sign Detail Recorded Client Recorded Date Recorded By Document 02/21/24 10:55 RB wound 02/21/24 10:58 RB Document 02/24/24 09:58 RB wound 02/24/24 10:02 RB Document 02/28/24 10:57 RB wound 02/28/24 10:59 RB Document 03/02/24 08:54 DS 1 03/02/24 08:55 DS Document 03/06/24 11:16 KW gj 03/06/24 11:34 KW 02/21/24 02/24/24 02/28/24 10:55 09:58 10:57 WC - Today's Visit Information Type of service Initial Visit Nurse-only Follow-up Visit Visit (Physician/HOME THERAPY CLINICIAN ) Arrival Mode Ambulatory Ambulatory,Cane Ambulatory Transfer Assistance None None None Patient Identification Verified (Name & Yes Yes Yes ) Patient Requires Transmission-Based No No No Precautions Safety Precautions Height and Weight Height 5 ft 11 in Weight 108.862 kg Weight in Pounds 240.0 lbs Body Mass Index (BMI) 33.5 33.5 33.5 BMI Classification Obese Obese Obese BSA - Johnnie 2.28 Vital Signs Temperature (97.8 F-99.1 F) 97.4 F L 97.6 F L 96.6 F L Temperature Source Temporal Temporal Temporal Pulse Rate (60-100) 85 87 91 Pulse Location Monitor Apical Monitor Respiratory Rate (12-18) 18 18 20 H Respiratory rate source Observation Observation Observation Oxygen Delivery Method Blood Pressure (90/60-120/80) 142/81 H 127/75 H 126/84 H Blood Pressure Mean (mm Hg) 101 92 98 Source Monitor Monitor Monitor Position Semi-Fowlers Semi-Fowlers Semi-Fowlers Blood Pressure Location Left Arm Left Arm Left Arm History Since Last Visit- (Skip if this is Patient's initial visit) Have you changed medications since your No No No last visit? Any new allergies or adverse reactions No No No Had a fall/change in ADL's that may No No No increase risk of falls Signs or symptoms of abuse and/or No No No neglect since last visit Have you been in the hospital since your No No No last visit? Has dressing in place as prescribed Yes Yes Yes Has compression in place as prescribed Yes Yes Yes Has offloadiing in place as prescribed No No No Experienced any changes in pain level or No No No management Left Footwear Right Footwear Pain Scale: 0-10 Numeric Is Patient Pain Free? Yes Yes Yes 03/02/24 03/06/24 08:54 11:16 - Today's Visit Information Type of service Nurse-only Follow-up Visit Visit (Physician/HOME THERAPY CLINICIAN ) Arrival Mode Ambulatory,Cane Ambulatory,Cane Transfer Assistance Patient Identification Verified (Name & Yes ) Patient Requires Transmission-Based Precautions Safety Precautions Fall Prevention Height and Weight Height Weight Weight in Pounds Body Mass Index (BMI) 33.5 33.5 BMI Classification Obese Obese [facility] [place] Vital Signs Temperature (97.8 F-99.1 F) 96.2 F L Temperature Source Temporal Pulse Rate (60-100) 80 Pulse Location Monitor Respiratory Rate (12-18) 18 Respiratory rate source Observation Oxygen Delivery Method Room Air Blood Pressure (90/60-120/80) 145/76 H Blood Pressure Mean (mm Hg) 99 Source Monitor Position Semi-Fowlers Blood Pressure Location Left Arm History Since Last Visit- (Skip if this is Patient's initial visit) Have you changed medications since your No last visit? Any new allergies or adverse reactions No Had a fall/change in ADL's that may No increase risk of falls Signs or symptoms of abuse and/or No neglect since last visit Have you been in the hospital since your No last visit? Has dressing in place as prescribed Yes Has compression in place as prescribed Yes Has offloadiing in place as prescribed N/A Experienced any changes in pain level or No management Left Footwear Removable Cast Walker/Walking Boot Right Footwear Regular Shoe Pain Scale: 0-10 Numeric Is Patient Pain Free? Yes Yes - Nurse 1 - General Ulcer Measurement Start: 02/21/24 10:55 Freq: Status: Active Protocol: Activity Type Activity Date Activity User E-sign Co-sign Detail Recorded Client Recorded Date Recorded By Document 02/21/24 10:55 RB wound 02/21/24 10:58 RB Document 02/24/24 09:58 RB wound 02/24/24 10:02 RB Document 02/28/24 10:57 RB wound 02/28/24 10:59 RB Document 03/06/24 11:16 KW gj 03/06/24 11:34 KW 02/21/24 02/24/24 02/28/24 10:55 09:58 10:57 Wound Center Nurse 1 #11- L GR TOE -Combined with other wound No -Current Size (cm) - Length 0.3 -Current Size (cm) - Width 0.7 -Current Size (cm) - Depth 0.1 -Total Square Cm 0.21 -Date of Last Picture (Recall this field) -Photo Taken Yes -Tunneling No -Undermining/Tunneling No -Circular Undermining No -Exudate Amt Medium -Exudate Type Serosanguineous -Wound Margin Distinct, Outline Attached -Granulation Amt Medium (34-66%) -Granulation Quality [place] -Slough/Fibrin Yes -Necrosis Amt Medium (34-66%) -Necrotic Tissue Type Adherent Slough -Structure Exposed N/A -Texture ([place]-wound Skin Appearance) Assessed -Moisture ([place]-wound Skin Appearance) Assessed -Color ([place]-wound Skin Appearance) Assessed -Temperature ([place]-wound Skin No Abnormality Appearance) (Pt Warm) -Tenderness on Palpation ([place]-wound No Skin Appearance) -Ulcer Cleansing Wound Cleanser Wound Cleanser -Foul Odor after Cleansing No -Anesthetic Used 5% Lidocaine Gel 10. L lateral ankle -Combined with other wound No No -Current Size (cm) - Length 0.1 0.1 -Current Size (cm) - Width 0.1 0.1 -Current Size (cm) - Depth 0.1 0.1 -Total Square Cm 0.01 0.01 -Date of Last Picture (Recall this field) -Photo Taken Yes Yes -Tunneling No No -Undermining/Tunneling No No -Circular Undermining No No -Exudate Amt Medium Medium -Exudate Type Serosanguineous Serosanguineous -Wound Margin Distinct, Distinct, Outline Outline Attached Attached -Granulation Amt Medium (34-66%) Large (67-100%) -Granulation Quality [place] Hyper- granulation, [place] -Slough/Fibrin Yes Yes -Necrosis Amt Medium (34-66%) Small (1-33%) -Necrotic Tissue Type Adherent Slough Adherent Slough -Structure Exposed N/A N/A -Texture ([place]-wound Skin Appearance) Assessed Assessed, Scarring -Moisture ([place]-wound Skin Appearance) Maceration Assessed -Color ([place]-wound Skin Appearance) Assessed Assessed -Temperature ([place]-wound Skin No Abnormality No Abnormality Appearance) (Pt Warm) (Pt Warm) -Tenderness on Palpation ([place]-wound No No Skin Appearance) -Ulcer Cleansing Wound Cleanser Wound Cleanser Wound Cleanser -Foul Odor after Cleansing No No -Anesthetic Used 5% Lidocaine 5% Lidocaine Gel Gel 9. L medial ankle -Combined with other wound No No -Current Size (cm) - Length 0.6 0.4 -Current Size (cm) - Width 1 0.6 -Current Size (cm) - Depth 0.1 0.1 -Total Square Cm 0.6 0.24 -Date of Last Picture (Recall this field) -Photo Taken Yes Yes -Tunneling No No -Undermining/Tunneling No No -Circular Undermining No No -Exudate Amt Medium Large Medium -Exudate Type Serosanguineous Serosanguineous Serosanguineous -Wound Margin Distinct, Distinct, Outline Outline Attached Attached -Granulation Amt Large (67-100%) Medium (34-66%) -Granulation Quality Hyper- [place] granulation, [place],Red -Slough/Fibrin Yes Yes -Necrosis Amt Small (1-33%) Medium (34-66%) -Necrotic Tissue Type Adherent Slough Adherent Slough -Structure Exposed N/A N/A -Texture ([place]-wound Skin Appearance) Assessed Scarring -Moisture ([place]-wound Skin Appearance) Maceration Assessed -Color ([place]-wound Skin Appearance) Assessed Assessed -Temperature ([place]-wound Skin No Abnormality No Abnormality Appearance) (Pt Warm) (Pt Warm) -Tenderness on Palpation ([place]-wound No No Skin Appearance) -Ulcer Cleansing Wound Cleanser Wound Cleanser Wound Cleanser -Foul Odor after Cleansing No No -Anesthetic Used 5% Lidocaine 5% Lidocaine Gel Gel Lower Limb Edema Present Yes Yes Left Calf (cm) 36.5 37.5 36.5 Left Ankle (cm) 25.5 25.2 25.5 03/06/24 11:16 Wound Center Nurse 1 #11- L GR TOE -Combined with other wound -Current Size (cm) - Length 0.5 -Current Size (cm) - Width 0.8 -Current Size (cm) - Depth 0.1 -Total Square Cm 0.40 -Date of Last Picture (Recall this 03/06/24 field) -Photo Taken -Tunneling -Undermining/Tunneling -Circular Undermining -Exudate Amt Small -Exudate Type Serosanguineous -Wound Margin Distinct, Outline Attached -Granulation Amt Small (1-33%) -Granulation Quality [place] -Slough/Fibrin -Necrosis Amt Small (1-33%) -Necrotic Tissue Type Adherent Slough -Structure Exposed -Texture ([place]-wound Skin Appearance) Assessed -Moisture ([place]-wound Skin Appearance) Assessed -Color ([place]-wound Skin Appearance) Assessed -Temperature ([place]-wound Skin No Abnormality Appearance) (Pt Warm) -Tenderness on Palpation ([place]-wound Skin Appearance) -Ulcer Cleansing Soap and Water -Foul Odor after Cleansing No -Anesthetic Used 5% Lidocaine Gel 10. L lateral ankle -Combined with other wound -Current Size (cm) - Length 2 -Current Size (cm) - Width 2 -Current Size (cm) - Depth 0 -Total Square Cm 4 -Date of Last Picture (Recall this 03/06/24 field) -Photo Taken -Tunneling -Undermining/Tunneling -Circular Undermining -Exudate Amt Large -Exudate Type Serosanguineous -Wound Margin Distinct, Outline Attached -Granulation Amt Large (67-100%) -Granulation Quality Hyper- granulation,Red -Slough/Fibrin -Necrosis Amt Small (1-33%) -Necrotic Tissue Type Adherent Slough -Structure Exposed -Texture ([place]-wound Skin Appearance) Assessed, Scarring -Moisture ([place]-wound Skin Appearance) Maceration -Color ([place]-wound Skin Appearance) Assessed -Temperature ([place]-wound Skin No Abnormality Appearance) (Pt Warm) -Tenderness on Palpation ([place]-wound No Skin Appearance) -Ulcer Cleansing Soap and Water -Foul Odor after Cleansing No -Anesthetic Used 5% Lidocaine Gel 9. L medial ankle -Combined with other wound -Current Size (cm) - Length 0.5 -Current Size (cm) - Width 0.8 -Current Size (cm) - Depth 0 -Total Square Cm 0.40 -Date of Last Picture (Recall this 03/06/24 field) -Photo Taken -Tunneling -Undermining/Tunneling -Circular Undermining -Exudate Amt Small -Exudate Type Serosanguineous -Wound Margin Distinct, Outline Attached -Granulation Amt Medium (34-66%) -Granulation Quality [place] -Slough/Fibrin -Necrosis Amt Small (1-33%) -Necrotic Tissue Type Adherent Slough -Structure Exposed -Texture ([place]-wound Skin Appearance) Assessed, Scarring -Moisture ([place]-wound Skin Appearance) Assessed -Color ([place]-wound Skin Appearance) Assessed -Temperature ([place]-wound Skin No Abnormality Appearance) (Pt Warm) -Tenderness on Palpation ([place]-wound No Skin Appearance) -Ulcer Cleansing Soap and Water -Foul Odor after Cleansing No -Anesthetic Used 5% Lidocaine Gel Lower Limb Edema Present Left Calf (cm) 34 Left Ankle (cm) 26 WC - Nurse 2 - General Ulcer CM Notes Start: 02/21/24 10:55 Freq: Status: Active Protocol: Activity Type Activity Date Activity User E-sign Co-sign Detail Recorded Client Recorded Date Recorded By Document 02/21/24 11:[address] [facility] [email or web address] 02/21/24 11:[address] [facility] Document 02/28/24 11:13 0000 02/28/24 11:17 02/21/24 02/28/24 11:05 11:13 Wound Center Nurse 2 #11- L GR TOE -Time 11:10 11:14 -Correct Patient Yes Yes -Correct Side, Site, Position Yes Yes -Correct Procedure Yes Yes -Procedure Performed Yes Yes -Type of Procedure Debridement Debridement -Clinical Debridement Subcutaneous Subcutaneous -Tissue Removed Subcutaneous Subcutaneous -Post Debridement (cm) - Length 1.2 0.5 -Post Debridement (cm) - Width 0.7 0.3 -Post Debridement (cm) - Depth 0.1 0.1 -Total Square (Post) (cm) 0.84 0.15 -Area of Debridement (cm) - Length 1.2 0.5 -Area of Debridement (cm) - Width 0.7 0.3 -Total Square (Area) (cm) 0.84 0.15 -Tunneling No No -Undermining/Tunneling No No -Circular Undermining No No -Wound/Ulcer Outcome Not Healed Not Healed -Ulcer Cleansing Rinsed/ Rinsed/ Irrigated with Irrigated with Saline Saline -Foul Odor after Cleansing No No -Bioengineered Tissue No No -Bleeding Controlled with Pressure Pressure -Treatment Response Procedure Procedure Tolerated Well Tolerated Well -Offloading No -Debridement - Subq, 1st 20sq cm Yes No 10. L lateral ankle -Time 11:08 11:16 -Correct Patient Yes Yes -Correct Side, Site, Position Yes Yes -Correct Procedure Yes Yes -Procedure Performed Yes Yes -Type of Procedure Debridement Debridement -Clinical Debridement Subcutaneous Subcutaneous -Tissue Removed Subcutaneous Subcutaneous -Post Debridement (cm) - Length 0.2 1.0 -Post Debridement (cm) - Width 0.2 1.0 -Post Debridement (cm) - Depth 0.1 1.0 -Total Square (Post) (cm) 0.04 1.00 -Area of Debridement (cm) - Length 0.2 1.0 -Area of Debridement (cm) - Width 0.2 1.0 -Total Square (Area) (cm) 0.04 1.00 -Tunneling No No -Undermining/Tunneling No No -Circular Undermining No No -Wound/Ulcer Outcome Not Healed Not Healed -Ulcer Cleansing Rinsed/ Rinsed/ Irrigated with Irrigated with Saline Saline -Foul Odor after Cleansing No No -Bioengineered Tissue No No -Bleeding Controlled with Pressure Pressure -Treatment Response Procedure Procedure Tolerated Well Tolerated Well -Offloading No -Debridement - Subq, 1st 20sq cm No No 9. L medial ankle -Time 11:08 11:16 -Correct Patient Yes Yes -Correct Side, Site, Position Yes Yes -Correct Procedure Yes Yes -Procedure Performed Yes Yes -Type of Procedure Debridement Debridement -Clinical Debridement Subcutaneous Subcutaneous -Tissue Removed Subcutaneous Muscle -Post Debridement (cm) - Length 1.0 0.3 -Post Debridement (cm) - Width 0.5 0.5 -Post Debridement (cm) - Depth 0.1 0.1 -Total Square (Post) (cm) 0.50 0.15 -Area of Debridement (cm) - Length 1.0 0.3 -Area of Debridement (cm) - Width 0.5 0.5 -Total Square (Area) (cm) 0.50 0.15 -Tunneling No No -Undermining/Tunneling No No -Circular Undermining No No -Wound/Ulcer Outcome Not Healed Not Healed -Ulcer Cleansing Rinsed/ Rinsed/ Irrigated with Irrigated with Saline Saline -Foul Odor after Cleansing No No -Bioengineered Tissue No No -Bleeding Controlled with Pressure Pressure -Treatment Response Procedure Procedure Tolerated Well Tolerated Well -Offloading No -Debridement - Subq, 1st 20sq cm No Yes Pain Scale: 0-10 Numeric Is Patient Pain Free? Yes Yes - Nurse 3 - General Ulcer D/C NN Start: 02/21/24 10:55 Freq: Status: Active Protocol: Activity Type Activity Date Activity User E-sign Co-sign Detail Recorded Client Recorded Date Recorded By Document 02/21/24 11:29 DL [email or web address] 02/21/24 11:34 DL Document 02/24/24 09:58 RB wound 02/24/24 10:02 RB Document 02/28/24 11:42 DS 1 02/28/24 11:44 DS Document 03/02/24 08:51 DS 1 03/02/24 08:53 DS 02/21/24 02/24/24 02/28/24 11:29 09:58 11:42 Wound Care Center Nurse 3 #11- L GR TOE -Ulcer Cleansing Rinsed/ betadine Rinsed/ Irrigated with Irrigated with Saline Saline -Foul Odor after Cleansing No -Primary Dressing Applied NonAdherent Contact Layer -Other Dressing betadine betadine, adaptic -Primary Dressing Covered/Secured with Dry Gauze, Dry Gauze, Secured with Secured with Tape Tape 10. L lateral ankle -Ulcer Cleansing Rinsed/ betadine Rinsed/ Irrigated with Irrigated with Saline Saline -Foul Odor after Cleansing No -Primary Dressing Applied NonAdherent Contact Layer -Other Dressing betadine betadine, adaptic -Primary Dressing Covered/Secured with Dry Gauze,Dry Dry Gauze,Dry Gauze & Roll Gauze & Roll Gauze,Secured Gauze,Secured with Tape with Tape 9. L medial ankle -Ulcer Cleansing Rinsed/ betadine Rinsed/ Irrigated with Irrigated with Saline Saline -Foul Odor after Cleansing No -Primary Dressing Applied NonAdherent Contact Layer -Other Dressing abd betadine, adaptic -Primary Dressing Covered/Secured with Dry Gauze & Dry Gauze,Dry Roll Gauze, Gauze & Roll Secured with Gauze,Secured Tape with Tape Left -Multi-Layered Wrap Application Multi-Layer Multi-Layer Multi-Layer Comp - Left ($) Comp - Left ($) Comp - Left ($) Treatment Response Procedure Procedure Tolerated Well Tolerated Well Vital Signs Temperature (97.8 F-99.1 F) 97.6 F L Temperature Source Temporal Pulse Rate (60-100) 87 Pulse Location Apical Respiratory Rate (12-18) 18 Respiratory rate source Observation Blood Pressure (90/60-120/80) 127/75 H Blood Pressure Mean (mm Hg) 92 Source Monitor Position Semi-Fowlers Blood Pressure Location Left Arm Pain Scale: 0-10 Numeric Is Patient Pain Free? Yes Yes Yes WC - Visit Discharge Discharge Condition Stable Stable Stable Ambulatory Status Ambulatory Ambulatory,Cane Ambulatory,Cane Transportation Private Auto Private Auto Private Auto Medication Reconcilliation completed & No Yes provided to patient/care provider Clinical Summary of Care Provided Yes Yes 03/02/24 08:51 Wound Care Center Nurse 3 #11- L GR TOE -Ulcer Cleansing Rinsed/ Irrigated with Saline -Foul Odor after Cleansing -Primary Dressing Applied -Other Dressing betadine, adaptic -Primary Dressing Covered/Secured with Dry Gauze, Secured with Tape 10. L lateral ankle -Ulcer Cleansing Rinsed/ Irrigated with Saline -Foul Odor after Cleansing -Primary Dressing Applied -Other Dressing betadine, adaptic -Primary Dressing Covered/Secured with Secured with Tape 9. L medial ankle -Ulcer Cleansing Rinsed/ Irrigated with Saline -Foul Odor after Cleansing -Primary Dressing Applied -Other Dressing betadine, adaptic -Primary Dressing Covered/Secured with Secured with Tape Left -Multi-Layered Wrap Application Multi-Layer Comp - Left ($) Treatment Response Vital Signs Temperature (97.8 F-99.1 F) Temperature Source Pulse Rate (60-100) Pulse Location Respiratory Rate (12-18) Respiratory rate source Blood Pressure (90/60-120/80) Blood Pressure Mean (mm Hg) Source Position Blood Pressure Location Pain Scale: 0-10 Numeric Is Patient Pain Free? Yes WC - Visit Discharge Discharge Condition Stable Ambulatory Status Ambulatory,Cane Transportation Medication Reconcilliation completed & Yes provided to patient/care provider Clinical Summary of Care Provided Yes
--- NOTE | 2024-03-06 11:54 | PCM.WC.PN ---
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 History of Wound: 43-year-old male status post left Charcot reconstruction. Denies constitutional symptoms. Wound is improving today. Progress of Wound: Patient noticed some increased drainage from the medial and lateral ankle sites over the weekend. Patient was added to the schedule. Patient denies any fever chills nausea vomiting chest pain calf pain shortness of breath. Patient has been ambulating in a cam boot to left lower extremity. Patient has undergone significant left lower extremity Charcot reconstruction. He is transitioning to weightbearing. 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 Objective Data Objective Data Vital Signs: Vital Signs Temp Pulse Resp BP O2 Del Method 96.2 F L 80 18 145/76 H Room Air 03/06/24 11:16 03/06/24 11:16 03/06/24 11:16 03/06/24 11:16 03/06/24 11:16 Oxygen Delivery Method Room Air Weight: 108.862 kg Body Mass Index (BMI) 33.5 Lab / Micro Data Micro: Microbiology 02/28/24 13:02 Wound - Ankle Gram Stain - Final 02/28/24 13:02 Wound - Ankle Wound Culture - Final Enterococcus faecalis 02/28/24 13:02 Wound - Ankle Anaerobic Culture - Final No anaerobic bacteria isolated. Physical Exam Narrative Arterial status intact. +2 pitting edema to left lower extremity. Full-thickness wound to medial lateral ankle incisional sites as well as the distal left hallux. This is to left lower extremity. No acute signs of infection. No deep undermining or probing noted. Wounds demonstrate clean granular bases postdebridement. Pre and postdebridement measurements documented nursing notes. Focal area of fluctuance to lateral ankle, upon I+D, small 3cc purulent abscess noted. Rectus alignment right foot and ankle rectus alignment left foot and ankle. Slight dorsiflexion of forefoot relative to hindfoot. Const alert and oriented x3 Debridement Note Debridement Note Post-Debridement Measurements and Additional Note: Post-Debridement Measurements/Treatment MARY - Nurse 1 - General Ulcer Assessment Start: 02/21/24 10:55 Freq: Status: Active Protocol: [id number] Activity Type Activity Date Activity User E-sign Co-sign Detail Recorded Client Recorded Date Recorded By Document 02/21/24 10:55 RB wound 02/21/24 10:58 RB Document 02/24/24 09:58 RB wound 02/24/24 10:02 RB Document 02/28/24 10:57 RB wound 02/28/24 10:59 RB Document 03/02/24 08:54 DS 1 03/02/24 08:55 DS Document 03/06/24 11:16 KW gj 03/06/24 11:34 KW 02/21/24 02/24/24 02/28/24 10:55 09:58 10:57 WC - Today's Visit Information Type of service Initial Visit Nurse-only Follow-up Visit Visit (Physician/MBA INTERN ) Arrival Mode Ambulatory Ambulatory,Cane Ambulatory Transfer Assistance None None None Patient Identification Verified (Name & Yes Yes Yes ) Patient Requires Transmission-Based No No No Precautions Safety Precautions Height and Weight Height 5 ft 11 in Weight 108.862 kg Weight in Pounds 240.0 lbs Body Mass Index (BMI) 33.5 33.5 33.5 BMI Classification Obese Obese Obese BSA - Johnnie 2.28 Vital Signs Temperature (97.8 F-99.1 F) 97.4 F L 97.6 F L 96.6 F L Temperature Source Temporal Temporal Temporal Pulse Rate (60-100) 85 87 91 Pulse Location Monitor Apical Monitor Respiratory Rate (12-18) 18 18 20 H Respiratory rate source Observation Observation Observation Oxygen Delivery Method Blood Pressure (90/60-120/80) 142/81 H 127/75 H 126/84 H Blood Pressure Mean (mm Hg) 101 92 98 Source Monitor Monitor Monitor Position Semi-Fowlers Semi-Fowlers Semi-Fowlers Blood Pressure Location Left Arm Left Arm Left Arm History Since Last Visit- (Skip if this is Patient's initial visit) Have you changed medications since your No No No last visit? Any new allergies or adverse reactions No No No Had a fall/change in ADL's that may No No No increase risk of falls Signs or symptoms of abuse and/or No No No neglect since last visit Have you been in the hospital since your No No No last visit? Has dressing in place as prescribed Yes Yes Yes Has compression in place as prescribed Yes Yes Yes Has offloadiing in place as prescribed No No No Experienced any changes in pain level or No No No management Left Footwear Right Footwear Pain Scale: 0-10 Numeric Is Patient Pain Free? Yes Yes Yes 03/02/24 03/06/24 08:54 11:16 - Today's Visit Information Type of service Nurse-only Follow-up Visit Visit (Physician/MBA INTERN ) Arrival Mode Ambulatory,Cane Ambulatory,Cane Transfer Assistance Patient Identification Verified (Name & Yes ) Patient Requires Transmission-Based Precautions Safety Precautions Fall Prevention Height and Weight Height Weight Weight in Pounds Body Mass Index (BMI) 33.5 33.5 BMI Classification Obese Obese [facility] - Johnnie Vital Signs Temperature (97.8 F-99.1 F) 96.2 F L Temperature Source Temporal Pulse Rate (60-100) 80 Pulse Location Monitor Respiratory Rate (12-18) 18 Respiratory rate source Observation Oxygen Delivery Method Room Air Blood Pressure (90/60-120/80) 145/76 H Blood Pressure Mean (mm Hg) 99 Source Monitor Position Semi-Fowlers Blood Pressure Location Left Arm History Since Last Visit- (Skip if this is Patient's initial visit) Have you changed medications since your No last visit? Any new allergies or adverse reactions No Had a fall/change in ADL's that may No increase risk of falls Signs or symptoms of abuse and/or No neglect since last visit Have you been in the hospital since your No last visit? Has dressing in place as prescribed Yes Has compression in place as prescribed Yes Has offloadiing in place as prescribed N/A Experienced any changes in pain level or No management Left Footwear Removable Cast Walker/Walking Boot Right Footwear Regular Shoe Pain Scale: 0-10 Numeric Is Patient Pain Free? Yes Yes - Nurse 1 - General Ulcer Measurement Start: 02/21/24 10:55 Freq: Status: Active Protocol: Activity Type Activity Date Activity User E-sign Co-sign Detail Recorded Client Recorded Date Recorded By Document 02/21/24 10:55 RB wound 02/21/24 10:58 RB Document 02/24/24 09:58 RB wound 02/24/24 10:02 RB Document 02/28/24 10:57 RB wound 02/28/24 10:59 RB Document 03/06/24 11:16 KW gj 03/06/24 11:34 KW 02/21/24 02/24/24 02/28/24 10:55 09:58 10:57 Wound Center Nurse 1 #11- L GR TOE -Combined with other wound No -Current Size (cm) - Length 0.3 -Current Size (cm) - Width 0.7 -Current Size (cm) - Depth 0.1 -Total Square Cm 0.21 -Date of Last Picture (Recall this field) -Photo Taken Yes -Tunneling No -Undermining/Tunneling No -Circular Undermining No -Exudate Amt Medium -Exudate Type Serosanguineous -Wound Margin Distinct, Outline Attached -Granulation Amt Medium (34-66%) -Granulation Quality [place] -Slough/Fibrin Yes -Necrosis Amt Medium (34-66%) -Necrotic Tissue Type Adherent Slough -Structure Exposed N/A -Texture ([place]-wound Skin Appearance) Assessed -Moisture ([place]-wound Skin Appearance) Assessed -Color ([place]-wound Skin Appearance) Assessed -Temperature ([place]-wound Skin No Abnormality Appearance) (Pt Warm) -Tenderness on Palpation ([place]-wound No Skin Appearance) -Ulcer Cleansing Wound Cleanser Wound Cleanser -Foul Odor after Cleansing No -Anesthetic Used 5% Lidocaine Gel 10. L lateral ankle -Combined with other wound No No -Current Size (cm) - Length 0.1 0.1 -Current Size (cm) - Width 0.1 0.1 -Current Size (cm) - Depth 0.1 0.1 -Total Square Cm 0.01 0.01 -Date of Last Picture (Recall this field) -Photo Taken Yes Yes -Tunneling No No -Undermining/Tunneling No No -Circular Undermining No No -Exudate Amt Medium Medium -Exudate Type Serosanguineous Serosanguineous -Wound Margin Distinct, Distinct, Outline Outline Attached Attached -Granulation Amt Medium (34-66%) Large (67-100%) -Granulation Quality [place] Hyper- granulation, [place] -Slough/Fibrin Yes Yes -Necrosis Amt Medium (34-66%) Small (1-33%) -Necrotic Tissue Type Adherent Slough Adherent Slough -Structure Exposed N/A N/A -Texture ([place]-wound Skin Appearance) Assessed Assessed, Scarring -Moisture ([place]-wound Skin Appearance) Maceration Assessed -Color ([place]-wound Skin Appearance) Assessed Assessed -Temperature ([place]-wound Skin No Abnormality No Abnormality Appearance) (Pt Warm) (Pt Warm) -Tenderness on Palpation ([place]-wound No No Skin Appearance) -Ulcer Cleansing Wound Cleanser Wound Cleanser Wound Cleanser -Foul Odor after Cleansing No No -Anesthetic Used 5% Lidocaine 5% Lidocaine Gel Gel 9. L medial ankle -Combined with other wound No No -Current Size (cm) - Length 0.6 0.4 -Current Size (cm) - Width 1 0.6 -Current Size (cm) - Depth 0.1 0.1 -Total Square Cm 0.6 0.24 -Date of Last Picture (Recall this field) -Photo Taken Yes Yes -Tunneling No No -Undermining/Tunneling No No -Circular Undermining No No -Exudate Amt Medium Large Medium -Exudate Type Serosanguineous Serosanguineous Serosanguineous -Wound Margin Distinct, Distinct, Outline Outline Attached Attached -Granulation Amt Large (67-100%) Medium (34-66%) -Granulation Quality Hyper- [place] granulation, [place],Red -Slough/Fibrin Yes Yes -Necrosis Amt Small (1-33%) Medium (34-66%) -Necrotic Tissue Type Adherent Slough Adherent Slough -Structure Exposed N/A N/A -Texture ([place]-wound Skin Appearance) Assessed Scarring -Moisture ([place]-wound Skin Appearance) Maceration Assessed -Color ([place]-wound Skin Appearance) Assessed Assessed -Temperature ([place]-wound Skin No Abnormality No Abnormality Appearance) (Pt Warm) (Pt Warm) -Tenderness on Palpation ([place]-wound No No Skin Appearance) -Ulcer Cleansing Wound Cleanser Wound Cleanser Wound Cleanser -Foul Odor after Cleansing No No -Anesthetic Used 5% Lidocaine 5% Lidocaine Gel Gel Lower Limb Edema Present Yes Yes Left Calf (cm) 36.5 37.5 36.5 Left Ankle (cm) 25.5 25.2 25.5 03/06/24 11:16 Wound Center Nurse 1 #11- L GR TOE -Combined with other wound -Current Size (cm) - Length 0.5 -Current Size (cm) - Width 0.8 -Current Size (cm) - Depth 0.1 -Total Square Cm 0.40 -Date of Last Picture (Recall this 03/06/24 field) -Photo Taken -Tunneling -Undermining/Tunneling -Circular Undermining -Exudate Amt Small -Exudate Type Serosanguineous -Wound Margin Distinct, Outline Attached -Granulation Amt Small (1-33%) -Granulation Quality [place] -Slough/Fibrin -Necrosis Amt Small (1-33%) -Necrotic Tissue Type Adherent Slough -Structure Exposed -Texture ([place]-wound Skin Appearance) Assessed -Moisture ([place]-wound Skin Appearance) Assessed -Color ([place]-wound Skin Appearance) Assessed -Temperature ([place]-wound Skin No Abnormality Appearance) (Pt Warm) -Tenderness on Palpation ([place]-wound Skin Appearance) -Ulcer Cleansing Soap and Water -Foul Odor after Cleansing No -Anesthetic Used 5% Lidocaine Gel 10. L lateral ankle -Combined with other wound -Current Size (cm) - Length 2 -Current Size (cm) - Width 2 -Current Size (cm) - Depth 0 -Total Square Cm 4 -Date of Last Picture (Recall this 03/06/24 field) -Photo Taken -Tunneling -Undermining/Tunneling -Circular Undermining -Exudate Amt Large -Exudate Type Serosanguineous -Wound Margin Distinct, Outline Attached -Granulation Amt Large (67-100%) -Granulation Quality Hyper- granulation,Red -Slough/Fibrin -Necrosis Amt Small (1-33%) -Necrotic Tissue Type Adherent Slough -Structure Exposed -Texture ([place]-wound Skin Appearance) Assessed, Scarring -Moisture ([place]-wound Skin Appearance) Maceration -Color ([place]-wound Skin Appearance) Assessed -Temperature ([place]-wound Skin No Abnormality Appearance) (Pt Warm) -Tenderness on Palpation ([place]-wound No Skin Appearance) -Ulcer Cleansing Soap and Water -Foul Odor after Cleansing No -Anesthetic Used 5% Lidocaine Gel 9. L medial ankle -Combined with other wound -Current Size (cm) - Length 0.5 -Current Size (cm) - Width 0.8 -Current Size (cm) - Depth 0 -Total Square Cm 0.40 -Date of Last Picture (Recall this 03/06/24 field) -Photo Taken -Tunneling -Undermining/Tunneling -Circular Undermining -Exudate Amt Small -Exudate Type Serosanguineous -Wound Margin Distinct, Outline Attached -Granulation Amt Medium (34-66%) -Granulation Quality [place] -Slough/Fibrin -Necrosis Amt Small (1-33%) -Necrotic Tissue Type Adherent Slough -Structure Exposed -Texture ([place]-wound Skin Appearance) Assessed, Scarring -Moisture ([place]-wound Skin Appearance) Assessed -Color ([place]-wound Skin Appearance) Assessed -Temperature ([place]-wound Skin No Abnormality Appearance) (Pt Warm) -Tenderness on Palpation ([place]-wound No Skin Appearance) -Ulcer Cleansing Soap and Water -Foul Odor after Cleansing No -Anesthetic Used 5% Lidocaine Gel Lower Limb Edema Present Left Calf (cm) 34 Left Ankle (cm) 26 WC - Nurse 2 - General Ulcer CM Notes Start: 02/21/24 10:55 Freq: Status: Active Protocol: Activity Type Activity Date Activity User E-sign Co-sign Detail Recorded Client Recorded Date Recorded By Document 02/21/24 11:05 [facility] [id number] 02/21/24 11:15 [facility] Document 02/28/24 11:13 0000 02/28/24 11:17 Document 03/06/24 11:43 0000 03/06/24 11:52 02/21/24 02/28/24 03/06/24 11:05 11:13 11:43 Wound Center Nurse 2 #11- L GR TOE -Time 11:10 11:14 11:48 -Correct Patient Yes Yes Yes -Correct Side, Site, Position Yes Yes Yes -Correct Procedure Yes Yes Yes -Procedure Performed Yes Yes Yes -Type of Procedure Debridement Debridement Debridement -Clinical Debridement Subcutaneous Subcutaneous Subcutaneous -Tissue Removed Subcutaneous Subcutaneous Subcutaneous -Post Debridement (cm) - Length 1.2 0.5 0.4 -Post Debridement (cm) - Width 0.7 0.3 0.5 -Post Debridement (cm) - Depth 0.1 0.1 0.1 -Total Square (Post) (cm) 0.84 0.15 0.20 -Area of Debridement (cm) - Length 1.2 0.5 0.4 -Area of Debridement (cm) - Width 0.7 0.3 0.5 -Total Square (Area) (cm) 0.84 0.15 0.20 -Tunneling No No No -Undermining/Tunneling No No No -Circular Undermining No No No -Wound/Ulcer Outcome Not Healed Not Healed Not Healed -Ulcer Cleansing Rinsed/ Rinsed/ Rinsed/ Irrigated with Irrigated with Irrigated with Saline Saline Saline -Foul Odor after Cleansing No No No -Bioengineered Tissue No No No -Bleeding Controlled with Pressure Pressure Pressure -Treatment Response Procedure Procedure Procedure Tolerated Well Tolerated Well Tolerated Well -Offloading No No -Debridement - Subq, 1st 20sq cm Yes No No 10. L lateral ankle -Time 11: 11:16 11:48 -Correct Patient Yes Yes Yes -Correct Side, Site, Position Yes Yes Yes -Correct Procedure Yes Yes Yes -Procedure Performed Yes Yes Yes -Type of Procedure Debridement Debridement Debridement -Clinical Debridement Subcutaneous Subcutaneous Subcutaneous -Tissue Removed Subcutaneous Subcutaneous Subcutaneous -Post Debridement (cm) - Length 0.2 1.0 1.8 -Post Debridement (cm) - Width 0.2 1.0 1.0 -Post Debridement (cm) - Depth 0.1 1.0 1.0 -Total Square (Post) (cm) 0.04 1.00 1.80 -Area of Debridement (cm) - Length 0.2 1.0 1.8 -Area of Debridement (cm) - Width 0.2 1.0 1.0 -Total Square (Area) (cm) 0.04 1.00 1.80 -Tunneling No No No -Undermining/Tunneling No No No -Circular Undermining No No No -Wound/Ulcer Outcome Not Healed Not Healed Not Healed -Ulcer Cleansing Rinsed/ Rinsed/ Rinsed/ Irrigated with Irrigated with Irrigated with Saline Saline Saline -Foul Odor after Cleansing No No No -Bioengineered Tissue No No No -Bleeding Controlled with Pressure Pressure Pressure -Treatment Response Procedure Procedure Procedure Tolerated Well Tolerated Well Tolerated Well -Offloading No No -Debridement - Subq, 1st 20sq cm No No No 9. L medial ankle -Time : 11:16 11:48 -Correct Patient Yes Yes Yes -Correct Side, Site, Position Yes Yes Yes -Correct Procedure Yes Yes Yes -Procedure Performed Yes Yes Yes -Type of Procedure Debridement Debridement Debridement -Clinical Debridement Subcutaneous Subcutaneous Subcutaneous -Tissue Removed Subcutaneous Muscle Subcutaneous -Post Debridement (cm) - Length 1.0 0.3 0.3 -Post Debridement (cm) - Width 0.5 0.5 0.5 -Post Debridement (cm) - Depth 0.1 0.1 0.2 -Total Square (Post) (cm) 0.50 0.15 0.15 -Area of Debridement (cm) - Length 1.0 0.3 0.3 -Area of Debridement (cm) - Width 0.5 0.5 0.5 -Total Square (Area) (cm) 0.50 0.15 0.15 -Tunneling No No No -Undermining/Tunneling No No No -Circular Undermining No No No -Wound/Ulcer Outcome Not Healed Not Healed Not Healed -Ulcer Cleansing Rinsed/ Rinsed/ Rinsed/ Irrigated with Irrigated with Irrigated with Saline Saline Saline -Foul Odor after Cleansing No No No -Bioengineered Tissue No No No -Bleeding Controlled with Pressure Pressure Pressure -Treatment Response Procedure Procedure Procedure Tolerated Well Tolerated Well Tolerated Well -Offloading No No -Debridement - Subq, 1st 20sq cm No Yes Yes Pain Scale: 0-10 Numeric Is Patient Pain Free? Yes Yes Yes WC - Nurse 3 - General Ulcer D/C NN Start: 02/21/24 10:55 Freq: Status: Active Protocol: Activity Type Activity Date Activity User E-sign Co-sign Detail Recorded Client Recorded Date Recorded By Document 02/21/24 11:29 DL [email or web address] 02/21/24 11:34 DL Document 02/24/24 09:58 RB wound 02/24/24 10:02 RB Document 02/28/24 11:42 DS 1 02/28/24 11:44 DS Document 03/02/24 08:51 DS 1 03/02/24 08:53 DS 02/21/24 02/24/24 02/28/24 11:29 09:58 11:42 Wound Care Center Nurse 3 #11- L GR TOE -Ulcer Cleansing Rinsed/ betadine Rinsed/ Irrigated with Irrigated with Saline Saline -Foul Odor after Cleansing No -Primary Dressing Applied NonAdherent Contact Layer -Other Dressing betadine betadine, adaptic -Primary Dressing Covered/Secured with Dry Gauze, Dry Gauze, Secured with Secured with Tape Tape 10. L lateral ankle -Ulcer Cleansing Rinsed/ betadine Rinsed/ Irrigated with Irrigated with Saline Saline -Foul Odor after Cleansing No -Primary Dressing Applied NonAdherent Contact Layer -Other Dressing betadine betadine, adaptic -Primary Dressing Covered/Secured with Dry Gauze,Dry Dry Gauze,Dry Gauze & Roll Gauze & Roll Gauze,Secured Gauze,Secured with Tape with Tape 9. L medial ankle -Ulcer Cleansing Rinsed/ betadine Rinsed/ Irrigated with Irrigated with Saline Saline -Foul Odor after Cleansing No -Primary Dressing Applied NonAdherent Contact Layer -Other Dressing abd betadine, adaptic -Primary Dressing Covered/Secured with Dry Gauze & Dry Gauze,Dry Roll Gauze, Gauze & Roll Secured with Gauze,Secured Tape with Tape Left -Multi-Layered Wrap Application Multi-Layer Multi-Layer Multi-Layer Comp - Left ($) Comp - Left ($) Comp - Left ($) Treatment Response Procedure Procedure Tolerated Well Tolerated Well Vital Signs Temperature (97.8 F-99.1 F) 97.6 F L Temperature Source Temporal Pulse Rate (60-100) 87 Pulse Location Apical Respiratory Rate (12-18) 18 Respiratory rate source Observation Blood Pressure (90/60-120/80) 127/75 H Blood Pressure Mean (mm Hg) 92 Source Monitor Position Semi-Fowlers Blood Pressure Location Left Arm Pain Scale: 0-10 Numeric Is Patient Pain Free? Yes Yes Yes WC - Visit Discharge Discharge Condition Stable Stable Stable Ambulatory Status Ambulatory Ambulatory,Cane Ambulatory,Cane Transportation Private Auto Private Auto Private Auto Medication Reconcilliation completed & No Yes provided to patient/care provider Clinical Summary of Care Provided Yes Yes 03/02/24 08:51 Wound Care Center Nurse 3 #11- L GR TOE -Ulcer Cleansing Rinsed/ Irrigated with Saline -Foul Odor after Cleansing -Primary Dressing Applied -Other Dressing betadine, adaptic -Primary Dressing Covered/Secured with Dry Gauze, Secured with Tape 10. L lateral ankle -Ulcer Cleansing Rinsed/ Irrigated with Saline -Foul Odor after Cleansing -Primary Dressing Applied -Other Dressing betadine, adaptic -Primary Dressing Covered/Secured with Secured with Tape 9. L medial ankle -Ulcer Cleansing Rinsed/ Irrigated with Saline -Foul Odor after Cleansing -Primary Dressing Applied -Other Dressing betadine, adaptic -Primary Dressing Covered/Secured with Secured with Tape Left -Multi-Layered Wrap Application Multi-Layer Comp - Left ($) Treatment Response Vital Signs Temperature (97.8 F-99.1 F) Temperature Source Pulse Rate (60-100) Pulse Location Respiratory Rate (12-18) Respiratory rate source Blood Pressure (90/60-120/80) Blood Pressure Mean (mm Hg) Source Position Blood Pressure Location Pain Scale: 0-10 Numeric Is Patient Pain Free? Yes WC - Visit Discharge Discharge Condition Stable Ambulatory Status Ambulatory,Cane Transportation Medication Reconcilliation completed & Yes provided to patient/care provider Clinical Summary of Care Provided Yes Assessment/Plan Assessment/Plan (1) Non-pressure chronic ulcer of other part of left foot with necrosis of bone: CODE(S): L97.524 - Non-pressure chronic ulcer of other part of left foot with necrosis of bone PLAN: Exam performed. Will plan for aggressive edema management. Left medial ankle and distal hallux wound were excisionally debrided down to including level of subcutaneous tissue of all nonviable tissue using a #15 blade. Patient tolerated procedure well. No anesthesia due to neuropathy. Hemostasis obtained with light compression. Pre and postdebridement measurements documented. Cultures positive for Enterococcus faecalis. Rx for Zyvox. Recommending hospital admission with removal of the intramedullary nail for placement of intramedullary nail with antibiotic impregnated cement nail with application of external fixator. Recommend IV antibiotics for treatment again. Plan for daily Betadine Adaptic and gauze to left hallux, medial and lateral ankle. Plan for 3M compression wrap change twice weekly. Continue weightbearing as tolerated in cam boot left lower extremity. Recommend elevation above level of heart at rest. continue ambulation in cam boot assisted by walker. Follow-up in 1 week. 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
--- NOTE | 2024-03-07 09:53 | WC ---
PHOTO 02/21/24 MAAME
--- NOTE | 2024-03-07 09:55 | WC ---
PHOTO 02/21/24 LEFT POST ANKLE
--- NOTE | 2024-03-07 09:57 | WC ---
PHOTO 02/21/24 LEFT MEDIAL ANKLE
--- NOTE | 2024-03-07 11:54 | WC ---
PHOTO 03/06/24 LEFT LATERAL ANKLE
--- NOTE | 2024-03-07 11:54 | WC ---
PHOTO LEFT MEDIAL ANKLE 03/06/24
--- NOTE | 2024-03-07 11:55 | WC ---
PHOTO 03/06/24 LEFT GREAT TOE
== END 2024-03-07 23:59 | disposition home or self-care (01) ==
LOC: WC 11:15
PROVIDERS: PCP Student in an Organized Health Care Education/Training Program; Referring Provider Podiatrist; Visit Provider Podiatrist
DX: E11.69 Type 2 diabetes mellitus with other specified complication (principal); A48.0 Gas gangrene; L97.524 Non-pressure chronic ulcer of other part of left foot with necrosis of bone; E11.621 Type 2 diabetes mellitus with foot ulcer; M86.172 Other acute osteomyelitis, left ankle and foot; E11.42 Type 2 diabetes mellitus with diabetic polyneuropathy; E11.610 Type 2 diabetes mellitus with diabetic neuropathic arthropathy; I10 Essential (primary) hypertension; L03.116 Cellulitis of left lower limb
CPT/HCPCS: 11042; 29581; 87070; 87075; 87077; 87186; 87205; 99213; G0463

== ENCOUNTER 2024-03-12 19:42 | Inpatient (IN) | payer BC, SELFPAY ==
[2024-03-12 16:50] VITALS: BP 143/81; PULSE 65; PULSE 70; RESP 18; TEMP 37.1; O2SAT 100; BMI 33.0
--- NOTE | 2024-03-12 17:25 | HP.PCM_ITS ---
HPI - General General Date of Admission: 03/12/24 HPI Narrative SNEHA WEI, is a 43 M who presents infected left TTC fusion site status post TTC fusion July 2023 followed by an incision and drainage of abscess with bone in September 01, 2023. Patient was placed on 6 weeks of IV meropenem. Patient's been receiving p.o. ciprofloxacin per infectious disease. Patient denies any fever chills nausea vomit chest pain And shortness of breath. Patient presented to wound care center last week with new onset abscess wound cultures demonstrated growth of Enterococcus faecalis which is same as cultures from September 01, 2023. Decision at that time was made for hospital admission. [facility] Medical History Non-pressure chronic ulcer of other part of left foot with necrosis of bone Hypertension Wears glasses Dietary restriction History of edema Hypertension Gas gangrene of foot Osteomyelitis of ankle or foot, left, acute Type 2 diabetes mellitus with diabetic polyneuropathy Home Medications ?Medication ?Instructions ?Recorded ?Last Taken ?Type multivitamin 1 tab PO DAILY SUPPLEMENT 11/24/21 03/12/24 History losartan 25 mg tablet 25 mg PO DAILY BLOOD PRESSURE 09/15/22 03/12/24 History semaglutide 14 mg tablet (Rybelsus) 14 mg PO DAILY DIABETES 07/06/23 03/12/24 History ascorbic acid (vitamin C) 1,000 mg 1,000 mg PO DAILY SUPPLEMENT 08/30/23 03/12/24 History tablet,extended release (C Complex) omega 0-ruw-moy-fish oil 300 2 cap PO DAILY SUPPLEMENT 08/30/23 03/12/24 History mg-1,000 mg capsule (Fish Oil) pravastatin 80 mg tablet 80 mg PO QHS CHOLESTEROL 08/30/23 03/11/24 History levofloxacin 500 mg tablet 500 mg PO DAILY 02/21/24 03/12/24 History cephalexin 750 mg capsule 750 mg PO BID #20 caps 03/06/24 03/12/24 Rx linezolid 600 mg tablet 600 mg PO BID #28 tabs 03/06/24 Unknown Rx Allergy/AdvReac Type Severity Reaction Status Date / Time Penicillins (PCN) Allergy Rash Verified 08/30/23 10:45 Surgical History Hx of foot surgery Hx of foot surgery Hx of eye surgery Social History Smoking Status: Never smoker ROS Constitutional Constitutional: Denies daytime sleepiness, increased appetite or lethargy Eyes Eyes: Denies blind spots, decreased night vision or excessive blinking ENT HEENT: Denies change in voice, dental pain or foreign body in nose Cardiovascular Cardiovascular: Denies abdominal pain, arrhythmia on telemetry or chest pain with activity Respiratory/Chest Respiratory/Chest: Denies change in phlegm color, chest congestion or dyspnea on exertion Vital Signs Vital Signs Vital Signs: 03/12/24 16:50 Temperature 98.7 F Temperature Source Temporal Pulse Rate 65 Respiratory Rate 18 Blood Pressure 143/81 H Blood Pressure Mean 101 Blood Pressure Source Monitor Blood Pressure Position Semi-Fowlers Blood Pressure Location Right Arm Pulse Ox 100 Oxygen Delivery Method Room Air Weight Weight: 104.326 kg Body Mass Index (BMI) 33.0 Physical Exam Narrative Vascular: Dorsalis pedis and posterior tibial pulses palpable 2 out of 4 bilateral lower extremity. Atrophic skin changes noted bilaterally. Neurologic: Absent light touch protective sensation of bilateral lower extremity. Dermatologic: Well-healed medial ankle incision on the left lower extremity wound noted to lateral left ankle scant purulence periwound edema or erythema. Musculoskeletal: Rectus alignment right foot and ankle, rectus alignment left foot and ankle. Fused ankle and subtalar joints. Assessment & Plan Assessment/Plan (1) Other acute osteomyelitis, left ankle and foot: PLAN: Exam performed Patient has infected intramedullary nail left lower extremity TTC fusion site Plan for incision and drainage of abscess down to bone, removal intramedullary nail, replacement with antibiotic impregnated bone cement, application of Ilizarov external fixator to left lower extremity 7:30 AM 03/13/2024 Chest x-ray EKG baseline lab work ordered Internal medicine consulted Infectious disease consulted Patient weightbearing in cam boot left lower extremity a current Patient n.p.o. 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
[2024-03-12 18:08] LABS: Absolute Lymphocyte Count 1.06 X10^3/uL (0.83-4.51); Absolute Neutrophil Count 3.4 X10^3/uL (2.0-7.7); Basophil# 0.01 X10^3/uL; Basophil% 0.2 % (0-1); Eosinophil# 0.46 X10^3/uL; Eosinophils% 8.5 % (0-5); Hematocrit 37.7 % (40-54); Hemoglobin 11.7 g/dL (13.0-16.5); Lymphocyte # 1.06 X10^3/ul (0.83-4.51); Lymphocyte % 19.6 % (19-41); Mean Corpuscular Hgb 23.3 pg (27.0-32.0); Mean Corpuscular Volume 75.1 fL (80-94); Mean Platelet Vol. 9.3 fl (6.2-12.0); Monocyte# 0.46 X10^3/uL; Monocyte% 8.5 % (0-10); NRBC Flagged by Analyzer 0 % (0-5); Neutrophil # 3.38 X10^3/uL (2.7-7.7); Neutrophil % 62.6 % (47-70); Platelet Count 259 K/mm3 (150-450); RBC Distribution Width CV 15.2 % (11.6-14.6); Red Blood Count 5.02 M/mm3 (4.6-6.2); White Blood Count 5.4 K/mm3 (4.4-11.0)
[2024-03-12 18:27] LABS: ALB/GLOB Ratio 0.8 RATIO (0.9-2.4); AST(SGOT) 16 U/L (15-37); Alanine Aminotransfer ALT/SGPT 20 U/L (16-61); Alkaline Phosphatase 118 U/L (45-117); Anion Gap 4 (5-15); BUN 17 mg/dL (7-18); BUN/Creat Ratio 18.4 RATIO (10-20); Calcium,Total 9.3 mg/dL (8.5-10.1); Chloride 106 mmol/L (98-107); Creatinine, Serum 0.92 mg/dL (0.70-1.30); EST Glomerular Filtration Rate 95 mL/min (>60); Est Glom Filt Rate - Afr Amer 115 mL/min (>60); Estimated Creatinine Clearance 127.83 ml/min; Globulin 3.9 g/dL (2.2-4.2); Glucose 112 mg/dL (74-106); Protein, Total 6.9 g/dL (6.4-8.2); Sodium Level 140 mmol/L (136-145)
--- NOTE | 2024-03-12 18:40 | RAD_ITS ---
STUDY: X-RAY CHEST REASON FOR EXAM: Male, 43 years old. cough TECHNIQUE: Frontal and lateral views of the chest. COMPARISON: 09/01/2023. FINDINGS: The lungs are clear and expanded. There is no demonstrated pleural abnormality. Normal size heart. Normal mediastinum and michelle. Normal visualized pulmonary arteries. Normal visualized aortic arch and descending thoracic aorta. Normal visualized thoracic spine. Normal visualized ribs, clavicles, and shoulders. There is no demonstrated abnormality of the visualized soft tissue structures of the upper abdomen. RAD/Chest PA and Lateral IMPRESSION: Normal x-ray examination of the chest. Electronically Signed: Pako Smith MD at 19:42 EDT ,
--- NOTE | 2024-03-12 18:47 | NURSING ---
pt off unit for testing
--- NOTE | 2024-03-12 19:19 | PN.HOSP_ITS ---
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 Perkins for removal of hardware in his left ankle due to a persistent infection. Patient underwent TTC fusion of his left ankle last July 2023, since that time he has had infection in the ankle, organism is Enterococcus faecalis. Medical problems include essential hypertension, type 2 diabetes with diabetic neuropathy and hyperlipidemia. Objective Data Objective Data Vital Signs: Vital Signs Temp Pulse Resp BP Pulse Ox O2 Del Method 98.7 F 70 18 143/81 H 100 Room Air 03/12/24 16:50 03/12/24 16:50 03/12/24 16:50 03/12/24 16:50 03/12/24 16:50 03/12/24 16:50 Oxygen Delivery Method Room Air Weight: 104.326 kg Body Mass Index (BMI) 33.0 Lab / Micro Data 03/12/24 17:53 03/12/24 17:53 Labs: Laboratory Results - last 24 hr 03/12/24 17:53: WBC 5.4, RBC 5.02, Hgb 11.7 L, Hct 37.7 L, MCV 75.1 L, MCH 23.3 L, MCHC 31.0 L, RDW Std Deviation 41.0, RDW Coeff of Venita 15.2 H, Plt Count 259, MPV 9.3, Immature Gran % (Auto) 0.600, Neut % (Auto) 62.6, Lymph % (Auto) 19.6, [place] % (Auto) 8.5, Eos % (Auto) 8.5 H, Baso % (Auto) 0.2, Absolute Neuts (auto) 3.4, Absolute Lymphs (auto) 1.06, Nucleated RBC % 0, Sodium 140, Potassium 4.0, Chloride 106, Carbon Dioxide 30.0, Anion Gap 4 L, BUN 17, Creatinine 0.92, Estim Creat Clear Calc 127.83, Est GFR (MDRD) Af Amer 115, Est GFR (MDRD) Non-Af 95, BUN/Creatinine Ratio 18.4, Glucose 112 H, Calcium 9.3, Total Bilirubin 0.50, AST 16, ALT 20, Alkaline Phosphatase 118 H, Total Protein 6.9, Albumin 3.0 L, Globulin 3.9, Albumin/Globulin Ratio 0.8 L Physical Exam Const alert, oriented x3, no apparent distress and healthy appearing General Appearance: cooperative, well kempt and well developed Orientation / Consciousness: awake, oriented to person, oriented to place and oriented to time HEENT normocephalic, head/scalp atraumatic and moist oral mucous membranes Eyes PERRL, EOMs intact bilaterally and conjunctivae normal Neck supple, no JVD, thyroid normal and no carotid bruits General: trachea midline Resp normal respiratory effort, no retractions, no use of accessory muscles and clear to auscultation bilaterally Auscultation: Negative for rales, rhonchi or wheezes Cardio regular rate, regular rhythm, no murmurs, no rub and no gallops GI normal to inspection, nondistended, normoactive bowel sounds, soft to palpation, non-tender and non-distended Extremity Extremity Narrative: Patient's left lower leg was wrapped in surgical dressing, this was not removed for examination of the area Neuro oriented x3, CN's II-XII intact bilaterally, moves all extremities, no focal motor deficits and no sensory deficits noted Sensorium / Orientation: awake, alert, oriented to person, oriented to place and oriented to time Speech: speech normal Psych affect normal Assessment & Plan Assessment/Plan (1) Type 2 diabetes mellitus with diabetic polyneuropathy: 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 Type 2 diabetes with diabetic neuropathy-patient's home medications will be continued, fingerstick blood sugars will be obtained and sliding scale insulin be given as necessary. #2 hyperlipidemia-patient is on pravastatin, this will be continued #3 essential hypertension-patient is on losartan-this will be continued #4 infected hardware left ankle-patient is to undergo surgery by podiatry tomorrow for removal of hardware and left ankle, infectious diseases is also participating in his care. Total clinical time spent by myself addressing the patient's medical issues, reviewing all of his data, and collaborating with patient's care team: 35 minutes Charges/Coding Visit Charges Inpatient E&M: 40619 Subs Hosp L2
[2024-03-12 20:30] VITALS: BP 122/81; PULSE 77; RESP 16; TEMP 36.6; O2SAT 100
[2024-03-12] MEDS: Pravastatin 80 MG Tablet PO (21:54)
[2024-03-12] MEDS: Cefazolin 2 GM in 0.9% Normal Saline (100mL Bag) 100 ML IV (21:54)
[2024-03-12] MEDS: 0.9% Saline Lock 10 ML Syringe IV (21:56)
--- NOTE | 2024-03-12 22:00 | EKG12_ITS ---
Test Reason : PRE OP Blood Pressure : / mmHG Vent. Rate : 079 BPM Atrial Rate : 079 BPM P-R Int : 156 ms QRS Dur : 100 ms QT Int : 368 ms P-R-T Axes : 049 003 022 degrees QTc Int : 421 ms Normal sinus rhythm Normal ECG When compared with ECG of 16-NOV-2023 09:50, No significant change was found Confirmed by Dom Lim [id number]), editor managing director MYKEL BURRELL ([id number]) on 03/14/2024 10:08:07 AM Referred By: Jordi Perkins Confirmed By:Dom Lim
[2024-03-12 22:28] LABS: Bedside Glucose 95 mg/dL (74-106)
[2024-03-13] VITALS (15 sets, daily range): BP systolic 108–141; BP diastolic 52–87; PULSE 64–90; RESP 14–18; TEMP 36.2–36.9; O2SAT 93–99; BMI 33.0
[2024-03-13 05:28] LABS: Absolute Neutrophil Count 2.6 X10^3/uL (2.0-7.7); Basophil# 0.03 X10^3/uL; Basophil% 0.6 % (0-1); Eosinophil# 0.46 X10^3/uL; Eosinophils% 9.2 % (0-5); Hematocrit 36.9 % (40-54); Hemoglobin 11.3 g/dL (13.0-16.5); Lymphocyte % 25.9 % (19-41); Mean Corp Hgb Conc 30.6 g/dL (32-36); Mean Corpuscular Hgb 23.3 pg (27.0-32.0); Mean Corpuscular Volume 75.9 fL (80-94); Monocyte# 0.58 X10^3/uL; Monocyte% 11.6 % (0-10); NRBC Flagged by Analyzer 0 % (0-5); Neutrophil # 2.62 X10^3/uL (2.7-7.7); Neutrophil % 52.1 % (47-70); Platelet Count 239 K/mm3 (150-450); RBC Distribution Width CV 15.1 % (11.6-14.6); RBC Distribution Width SD 41.2 fl (35.1-43.9); Red Blood Count 4.86 M/mm3 (4.6-6.2)
[2024-03-13] MEDS: Cefazolin 2 GM in 0.9% Normal Saline (100mL Bag) 100 ML IV (05:36)
[2024-03-13] MEDS: Dextrose 10%-Water 250 ML 999 ML IV (05:51)
[2024-03-13 05:52] LABS: Anion Gap 3 (5-15); BUN 15 mg/dL (7-18); BUN/Creat Ratio 18.3 RATIO (10-20); Calcium,Total 9.1 mg/dL (8.5-10.1); Chloride 106 mmol/L (98-107); Creatinine, Serum 0.82 mg/dL (0.70-1.30); EST Glomerular Filtration Rate 110 mL/min (>60); Est Glom Filt Rate - Afr Amer 133 mL/min (>60); Estimated Creatinine Clearance 143.42 ml/min; Glucose 103 mg/dL (74-106); Potassium 3.7 mmol/L (3.5-5.1); Sodium Level 139 mmol/L (136-145)
[2024-03-13 06:28] LABS: Bedside Glucose 88 mg/dL (74-106)
[2024-03-13 06:41] LABS: Bedside Glucose 155 mg/dL (74-106)
[2024-03-13] MEDS: Lactated Ringers 1,000 ML 15 ML IV (06:46)
--- NOTE | 2024-03-13 07:16 | PRE.ANES_ITS ---
ASA Classification* ASA Classification ASA Classification: 2 Assessment & Plan Anesthesia* Anesthesia Assessment Anesthesia Assessment: Discussed sedation and/or anesthesia options, risks, benefits, and alternatives with patient/parents/legal guardian/POA. Questions invited. The patient/parents/legal guardian/POA seems to understand and agrees to proceed with anesthesia plan. Reviewed the physical assessment, medical history, allergy history and patient home medications list prior to surgery/procedure/anesthetic and documented any changes. Performed airway and anesthesia risk assessments. Anesthesia Type Anesthesia Type: General (*see written preanesthesia record for full assessment) Anesthesia Focused Assessment* Temperature: 98 F Pulse Rate: 66 Blood Pressure: 141/87 Respiratory Rate: 16 Pulse Ox: 98 Airway Assessment Mouth opens: >3 cm Mallampati Score: II Focused Labs Anesthesia Preop lab: CBC WBC 5.0 K/mm3 (4.4-11.0) 03/13/24 05:10 RBC 4.86 M/mm3 (4.6-6.2) 03/13/24 05:10 Hgb 11.3 g/dL (13.0-16.5) L 03/13/24 05:10 Hct 36.9 % (40-54) L 03/13/24 05:10 Plt Count 239 K/mm3 (150-450) 03/13/24 05:10 CHEMISTRY Potassium 3.7 mmol/L (3.5-5.1) 03/13/24 05:10 Sodium 139 mmol/L (136-145) 03/13/24 05:10 BUN 15 mg/dL (7-18) 03/13/24 05:10 Creatinine 0.82 mg/dL (0.70-1.30) 03/13/24 05:10 Glucose 103 mg/dL (74-106) 03/13/24 05:10 POC Glucose 155 mg/dL (74-106) H 03/13/24 06:23 COAG PT 15.1 SECONDS (11.7-14.9) H 11/14/21 15:11 Pre-Assessment Diagnosis/Proposed Procedure Planned Operative Procedure(s): foot surgery Anesthesia History Anesthesia History - take out waiter/waitress: Anesthesia History - take out waiter/waitress Hx Hospitalization No 07/06/23 14:05 Any Problems With Anesthesia No 03/12/24 20:10 Cholinesterase deficiency No 03/12/24 20:10 You/Your Family Experience No 03/12/24 20:10 fever (hyperthermia) with Relationship Recent Exposure to Contagious No 03/12/24 20:10 Disease Does patient have nerve No 03/12/24 20:10 stimulator Patient instructed to have No 03/12/24 20:10 device shut off --Does patient have Pacemaker No 03/13/24 06:13 or ICD? When Was Last Pacemaker Check QUESTION #4 FULL TEXT: You/Your Family Experience fever (hyperthermia) with Anesthesia Last Oral Intake Last Oral intake: Last Oral Intake NPO since 00:00 03/13/24 06:13 Meds taken in AM with sips of No 03/13/24 06:13 water? Meds patient instructed to take am of surgery PONV PONV - take out waiter/waitress: PONV - take out waiter/waitress Female HX of Motion Sickness HX of N/V After Surgery Non-Smoker Duration of Surgery greater than 60 minutes Number of Risk Factors PONV Score Height & Weight Height & Weight: Anesthesia: Height & Weight Height 5 ft 10 in 03/13/24 06:13 Weight: 104.326 kg 03/13/24 06:13 Body Mass Index (BMI) 33.0 03/13/24 06:13 Respiratory Assessment Respiratory Assessment - take out waiter/waitress: Respiratory Tract Infection Hx - take out waiter/waitress Hx Respiratory Tract Infection No 03/12/24 20:10 STOP Sleep Apnea STOP Sleep Apnea - take out waiter/waitress: STOP Sleep Apnea - take out waiter/waitress Hx Hypertension Yes 03/12/24 16:50 Hx Sleep Apnea No 03/12/24 16:50 CPAP BIPAP Do you snore loudly (louder No 03/12/24 16:50 than talking or can be heard Do you often feel tired/ No 03/12/24 16:50 fatigued/ sleepy during daytime? Has anyone observed you stop No 03/12/24 16:50 breathing during sleep? STOP Results Negative 03/12/24 16:50 QUESTION #5 FULL TEXT : Do you snore loudly (louder than talking or can be heard through closed doors)? Tobacco Use History Tobacco Use History - take out waiter/waitress: Tobacco Use History - take out waiter/waitress Tobacco Use Smoking Status Never smoker 03/12/24 16:50 Hx Tobacco Use No 03/12/24 16:50 Years Smoking Packs Smoked per Day Smoking Cessation Date was within the last 15 years Hx Smoking Cessation Date Hx Smoking Cessation Counseling Hematologic Medial History Hematologic Hx - take out waiter/waitress: Hematologic Medical Hx - inspector and sorter Hx of Blood Transfusion No 03/12/24 16:50 Hx of Transfusion in last 3 No 03/12/24 16:50 Months Date of Last Transfusion (if within last 3 months) Ever experience any problems No 03/12/24 16:50 with transfusion(s)? Specify any problems Hx of Preganancy in last 3 N/A 03/12/24 16:50 Months Nurse Filling Out Transfusion LDOTTERER 03/12/24 16:50 & Questions: Date: 03/12/24 03/12/24 16:50 Time: 17:04 03/12/24 16:50 Patient unable to answer at this time (ie. confused, unrespo /Reproduction History /Reproductive History - take out waiter/waitress: /Reproductive Hx- take out waiter/waitress Hx Now na 03/12/24 20:10 Gestational Age (in weeks): EDC: Hx Hx Para Hx Section SAB No 08/30/23 14:02 Active Medications Active Medications: Current Medications Generic Name Dose Route Start Last Admin Trade Name Freq PRN Reason Stop Dose Admin Clarify Med Order 1 each 03/13/24 10:00 Clarify Order NOTE CLARIFY MAGDA Glucagon 1 mg 03/12/24 19:21 Glucagon 1 Mg/Ml Syringe IM X1 PRN Hypoglycemia Protocol Cefazolin Sodium 2 gm/ Sodium 110 mls @ 150 mls/hr 03/12/24 22:00 03/13/24 06:39 Chloride IV Infused Q8 MAGDA Infusion Dextrose 250 mls @ 0 mls/hr 03/12/24 19:21 03/13/24 06:07 Dextrose 10%-Water IV Infused .Q0M PRN Infusion HYPOGLYCEMIA Protocol As Directed Lactated Ringer's 1,000 mls @ 15 mls/hr 03/13/24 06:45 03/13/24 06:46 IV 15 mls/hr .Q48H MAGDA Administration Insulin Human Lispro 0 unit 03/12/24 22:00 03/13/24 05:36 Insulin Lispro 100 Unit/Ml Insuln.Pen SC Not Given ACHS MAGDA Protocol Losartan Potassium 25 mg 03/13/24 10:00 Losartan Potassium 25 Mg Tablet PO DAILY MAGDA Protocol Non-Formulary Medication 14 mg 03/13/24 10:00 Semaglutide [Rybelsus] PO DAILY MAGDA Pravastatin Sodium 80 mg 03/12/24 22:00 03/12/24 21:54 Pravastatin 80 Mg Tablet PO 80 mg QHS MAGDA Administration Sodium Chloride 10 - 40 ml 03/12/24 17:08 03/12/24 21:56 0.9% Saline Lock 10 Ml Syringe IV 10 ml UD PRN Administration SALINE FLUSH PFSH Medical History Non-pressure chronic ulcer of other part of left foot with necrosis of bone Hypertension Wears glasses Dietary restriction History of edema Hypertension Gas gangrene of foot Osteomyelitis of ankle or foot, left, acute Type 2 diabetes mellitus with diabetic polyneuropathy Home Medications ?Medication ?Instructions ?Recorded ?Last Taken ?Type multivitamin 1 tab PO DAILY SUPPLEMENT 11/24/21 03/12/24 History losartan 25 mg tablet 25 mg PO DAILY BLOOD PRESSURE 09/15/22 03/12/24 History semaglutide 14 mg tablet (Rybelsus) 14 mg PO DAILY DIABETES 07/06/23 03/12/24 History ascorbic acid (vitamin C) 1,000 mg 1,000 mg PO DAILY SUPPLEMENT 08/30/23 03/12/24 History tablet,extended release (C Complex) omega 2-gst-ayr-fish oil 300 2 cap PO DAILY SUPPLEMENT 08/30/23 03/12/24 History mg-1,000 mg capsule (Fish Oil) pravastatin 80 mg tablet 80 mg PO QHS CHOLESTEROL 08/30/23 03/11/24 History levofloxacin 500 mg tablet 500 mg PO DAILY 02/21/24 03/12/24 History cephalexin 750 mg capsule 750 mg PO BID #20 caps 03/06/24 03/12/24 Rx linezolid 600 mg tablet 600 mg PO BID #28 tabs 03/06/24 Unknown Rx Allergy/AdvReac Type Severity Reaction Status Date / Time Penicillins (PCN) Allergy Rash Verified 08/30/23 10:45 Surgical History Hx of foot surgery Hx of foot surgery Hx of eye surgery Social History Smoking Status: Never smoker Review of Systems (Anesthesia) ROS Narrative System reviewed and no additional complaints, except as documented.
--- NOTE | 2024-03-13 07:30 | BON_PTH ---
PATIENT: SNEHA WEI Jr. LOC: MS3 U#:[id number] AGE/SX: 43/M ROOM[place] [facility] [place]: MASON ZimmerM : 1980 BED: 1 DIS: 03/16/2024 SPEC #: [id number] RECD: 03/13/24 13:26 STATUS: CAROLINA EDWARD #: [id number] DEREK: 03/13/24 07:[address]: Jordi Perkins DEPT: SURGICAL PATHOLOGY RECD BY: Lizabeth Li ENTERED: 03/14/24 07:11 SP TYPE: Bone OTHR DR: DO Dr. Luke Almonte, MD Dr. Yoan Manzo Dr., MD Tissues: Foot, NOS Procedures: Decalcification bone/plaque Surgery Specimen Level IV Surgery Specimen Level V HEADER OPERATION: Left lower extremity incision and drainage abscess PRE-OP DIAGNOSIS: Other acute osteomyelitis, left ankle and foot, infected hardware in left leg TISSUE SUBMITTED: Left talus bone MICROSCOPIC DIAGNOSIS Left talus bone, biopsy: Pieces of bone with acute osteomyelitis. ANA LAURA/ 03/15/2024 MICROSCOPIC DESCRIPTION Slides are reviewed. GROSS DESCRIPTION Received in fixative is one container labeled with the patient's name and designated Left talus bone. The specimen consists of two fragments of bone measuring in aggregate 1.1 x 0.9 x 0.4cm. The entire specimen is submitted in one cassette after decalcification. ANA LAURA 03/14/2024 TC:2 CPT:29820,94768
--- NOTE | 2024-03-13 07:30 | RAD_ITS ---
PROCEDURE: Intraoperative fluoroscopic services. DATE OF EXAMINATION: March 13, 2020 4P INDICATION: Male, 43 years old. Chronic ankle pain. FLUOROSCOPY TIME (if supplied): (2 minutes and 11 seconds) minutes/seconds. 5.68 mGy. 14 images were submitted. Intraoperative fluoroscopic imaging provided for hardware removal and external fixation. RAD/Ankle 2 Views IMPRESSION: Intraoperative fluoroscopic services provided for hardware removal and external fixation. Electronically Signed: Olvin Gandara MD at 15:31 EDT ,
[2024-03-13 09:05] LABS: Hemoglobin A1c 6.4 % (3.8-5.6)
[2024-03-13] MEDS: Vancomycin IV 1,000 MG/20 ML Vial 1000 MG OPERA.SITE (09:25)
--- NOTE | 2024-03-13 09:26 | PCM.PN.HOSP ---
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 (03/12/24) Other acute osteomyelitis, left ankle and foot (03/12/24) Infection and inflammatory reaction due to other internal orthopedic prosthetic devices, implants and grafts, initial encounter (03/12/24) Objective Data Objective Data Vital Signs: Vital Signs Temp Pulse Resp BP Pulse Ox O2 Del Method 98 F 66 16 141/87 H 98 Room Air 03/13/24 07:16 03/13/24 07:16 03/13/24 07:16 03/13/24 07:16 03/13/24 07:16 03/13/24 06:13 Oxygen Delivery Method Room Air Weight: 230 lb Body Mass Index (BMI) 33.0 Intake & Output: Intake and Output for Last 24 Hours 03/11/24 03/12/24 03/13/24 23:59 23:59 23:59 Intake Total 110 / 110 360.0 / 360.0 Balance 110 / 110 360.0 / 360.0 Lab / Micro Data 03/13/24 05:10 03/13/24 05:10 Labs: Laboratory Results - last 24 hr 03/12/24 17:53: WBC 5.4, RBC 5.02, Hgb 11.7 L, Hct 37.7 L, MCV 75.1 L, MCH 23.3 L, MCHC 31.0 L, RDW Std Deviation 41.0, RDW Coeff of Venita 15.2 H, Plt Count 259, MPV 9.3, Immature Gran % (Auto) 0.600, Neut % (Auto) 62.6, Lymph % (Auto) 19.6, Parke % (Auto) 8.5, Eos % (Auto) 8.5 H, Baso % (Auto) 0.2, Absolute Neuts (auto) 3.4, Absolute Lymphs (auto) 1.06, Nucleated RBC % 0, Sodium 140, Potassium 4.0, Chloride 106, Carbon Dioxide 30.0, Anion Gap 4 L, BUN 17, Creatinine 0.92, Estim Creat Clear Calc 127.83, Est GFR (MDRD) Af Amer 115, Est GFR (MDRD) Non-Af 95, BUN/Creatinine Ratio 18.4, Glucose 112 H, Calcium 9.3, Total Bilirubin 0.50, AST 16, ALT 20, Alkaline Phosphatase 118 H, Total Protein 6.9, Albumin 3.0 L, Globulin 3.9, Albumin/Globulin Ratio 0.8 L 03/12/24 21:53: POC Glucose 95 03/13/24 05:10: WBC 5.0, RBC 4.86, Hgb 11.3 L, Hct 36.9 L, MCV 75.9 L, MCH 23.3 L, MCHC 30.6 L, RDW Std Deviation 41.2, RDW Coeff of Venita 15.1 H, Plt Count 239, MPV 9.0, Immature Gran % (Auto) 0.600, Neut % (Auto) 52.1, Lymph % (Auto) 25.9, Parke % (Auto) 11.6 H, Eos % (Auto) 9.2 H, Baso % (Auto) 0.6, Absolute Neuts (auto) 2.6, Absolute Lymphs (auto) 1.30, Nucleated RBC % 0, Sodium 139, Potassium 3.7, Chloride 106, Carbon Dioxide 30.0, Anion Gap 3 L, BUN 15, Creatinine 0.82, Estim Creat Clear Calc 143.42, Est GFR (MDRD) Af Amer 133, Est GFR (MDRD) Non-Af 110, BUN/Creatinine Ratio 18.3, Glucose 103, Hemoglobin A1c 6.4 H, Calcium 9.1 03/13/24 05:35: POC Glucose 88 03/13/24 06:23: POC Glucose 155 H Radiography Diagnostic Testing: Radiology Impression Chest X-Ray 03/12/24 18:40 IMPRESSION: Normal x-ray examination of the chest. Electronically Signed: Pako Smith MD at 19:42 EDT , Physical Exam Narrative Seen and examined. Patient has history of diabetes mellitus type 2 and is stated sugars are controlled. He also said he is losing weight. Physical exam General: Alert, Oriented x3, Cooperative HEENT: Atraumatic, PERRLA, EOMI, Normocephalic Oral: No Gingival or Mucosal Lesions/ Ulcerations Neck: Supple, No JVD, Negative Carotid Bruits Chest wall/Lungs: Air entry diminished in bilateral lung bases. No crepitation/rhonchi Cardiovascular: Regular rate, Regular Rhythm, Normal S1, Normal S2, No M/G/R Abdomen: Bowel Sounds Present, Soft, Non Tender, Non-Distended : No dysuria. No renal angle tenderness. No suprapubic tenderness. Extremities: No edema, Capillary Refill Less than 3 Seconds Skin: Left foot hardware was removed. Surgical dressing present. Had external bleeding. Musculoskeletal: No Tenderness to Palpation of Joints or Extremities Neurological: Cranial nerves II-XII grossly intact, DTR 2+/4. No acute focal neurological deficit. Psych/Mental Status: Normal Affect, Appropriate. Assessment & Plan Assessment/Plan (1) Type 2 diabetes mellitus with diabetic polyneuropathy: QUALIFIERS: Diabetes mellitus termination clerk insulin use: without termination clerk use Qualified Code(s): E11.42 - Type 2 diabetes mellitus with diabetic polyneuropathy PLAN: Plan 1. Infected hardware left ankle with chronic osteomyelitis complicated with abscess that required incision and drainage in August 2023 due to Enterococcus faecalis: The patient is admitted under podiatry service. Patient had removal of intramedullary nail left ankle, incision and drainage of abscess down to left lateral ankle bone level, delayed primary closure and application of external fixator on 03/13/2024. Patient stated he had left ankle fusion in July 2023 after that he had incision and drainage in September 01, 2023 and then 6 weeks of ertapenem. Patient was still getting intermittent purulent discharge with abscess/sinus formation with wound culture positive Enterococcus faecalis same as culture from December 30. ID consult reviewed. On vancomycin and meropenem for broad coverage. 2. Type 2 diabetes with diabetic neuropathy-patient's home medications, Accu-Chek before meals and at bedtime with Humalog sliding scale coverage and hypoglycemia protocol. 3. Hyperlipidemia-patient is on pravastatin, continued 4. Essential hypertension-patient is on losartan- continued Charges/Coding Visit Charges Inpatient E&M: 25553 Subs Hosp L2
--- NOTE | 2024-03-13 11:07 | PCM.PN.ID ---
ID ID: Route of nutrition/ use of supplements: [] Nutritional Intake: [] IV Site: [] Hernandes Catheter: [] Assessment & Plan Assessment/Plan (1) Infected hardware in left leg: PLAN: Pt has been in OR this AM, will do consult tomorrow. Adjust abx to vanc/butch for broad empiric coverage given past growth. Will follow, thank you
[2024-03-13] MEDS: Meropenem 1 GM in 0.9% Normal Saline (100mL MB+) 100 ML IV ×2 (11:08→22:14)
[2024-03-13] MEDS: Vancomycin HCl 2,000 MG in 0.9% Normal Saline (500mL Bag) 500 ML 250 MG IV (11:35)
--- NOTE | 2024-03-13 11:47 | PCM.POST.ANE ---
Anesthesia: Postop Eval I Current Vital Signs Temperature: 97.1 F Pulse Rate: 84 Blood Pressure: 121/77 Respiratory Rate: 14 Pulse Ox: 94 Oxygen Delivery Method: Room Air Assessment Airway patent: Yes Spontaneous unlabored respirations: Yes Mental status: Calm nausea: No Vomiting: No Anesthesia Complication: No Fluid Hydration Crystalloid volume administer (ml): 1,500 Total IV fluid infused: 1,500 Progress Note Anesthesia document: Postop Eval 1 completed: Yes
--- NOTE | 2024-03-13 11:51 | OP.PCM_ITS ---
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: (3) Other acute osteomyelitis, left ankle and foot: (4) Non-pressure chronic ulcer of other part of left foot with necrosis of bone: (5) Charcot's joint, left ankle and foot: Report of Operation Date of Procedure: 03/13/24 Pre-Operative Diagnosis: 1) infected left tibial talocalcaneal arthrodesis intramedullary nail 2) osteomyelitis left ankle, talus 3) abscess left ankle down to level bone 4) Charcot foot, left lower extremity 5) chronic ulceration left lateral ankle down to level bone 6) diabetic neuropathy Post-Operative Diagnosis: Same Surgery/Procedure Performed:: 1) removal intramedullary nail left ankle 2) incision and drainage abscess down to level of bone left lateral ankle 3) delayed primary closure left lateral ankle wound 4) application of static circular external fixator, left lower extremity Description of Surgical Findings:: Patient admitted to hospital for new onset abscess left lateral ankle stemming from talar screw component of intramedullary nail. Due to concern of infected hardware plan was for removal of intramedullary nail with clearance of osteomyelitis infection and application of an external fixator to allow for osseous stability and ambulation. Patient agreed. Type of Anesthesia: General Special Medications: Popliteal block per anesthesia preoperatively Specimen's removed: Left talar bone for culture and pathology, left lateral ankle tissue culture, postop swab culture Drains: None Estimated Blood Loss (mL): 40 cc Description of Procedure: Patient was brought back the operating placed comfortably in supine position on the operating table. Patient induced under general anesthesia. Well-padded left thigh tourniquet was applied. All osseous prominences offload to prevent any compression neuropraxia. Left lower extremity with position and blankets to elevate relative the contralateral limb. Hip bump was placed on the left lower extremity did not got any external rotation. Left lower extremity were scrubbed prepped draped using typical aseptic fashion. Procedures #1, #2: Removal intramedullary nail with incision drainage abscess to the lateral ankle Left lower extremities elevate exsanguinated tourniquet was inflated to 325 mmHg. Using fluoroscopic imaging the 2 calcaneal screws were removed through with percutaneous stab incisions with 15 blade. A plantar incision was made and blunt atraumatic dissection was taken down from the plantar heel to the distal aspect of the intramedullary nail. The end cap was removed from the intramedullary nail and the extraction device was threaded into the intramedullary nail. Dissection was then taken laterally at the previous lateral ankle incision and made full-thickness down to level of bone with 15 blade. There was noted to be a 5 cc purulent abscess extending down to the bone and the talar screw which was noted to be loose and weak within the talus. There is noted to be a significant bone void where the talar dome used to be as this appeared to be a septic ankle joint effusion. Additional debridement was performed with bone rongeurs removing all nonviable tissue and any residual abscess from the site this was sent for tissue culture. 2 proximal screws were removed using fluoroscopic guidance and a percutaneous stab incisions. The intramedullary nail was then extracted using the extraction device and was confirmed with fluoroscopic imaging. All incisional sites at this time were pulse lavaged with copious amounts normal sterile saline. No residual abscess noted at this time healthy bleeding granular tissue noted to the left lateral ankle and all other incisional sites. At this time a 150 mm intramedullary nail was created from tobramycin laced polymethylmethacrylate. This was created by introducing the tobramycin infused polymethylmethacrylate into a chest tube extending 150 mm. A 36 [place] tube was used. The intramedullary nail was then removed from the chest tube and placed from inferior to superior through the calcaneus across the talus into the tibial medullary canal for local antibiosis. Laterally at this time the defect at the talar dome was packed with demineralized bone matrix Using 10 cc and vancomycin powder. All incisional sites were flushed with copious months normal sterile saline. The proximal tibial incision was closed with 2-0 Vicryl. Interrupted followed by skin robinson. The plantar heel incision was closed with 2-0 Vicryl buried interrupted and robinson to skin. Posterior heel was closed with skin robinson. Procedure #3 delayed primary closure left lateral ankle: There is noted to be significant soft tissue void at this time. Skin was reapproximated using blue Vesseloops and robinson this was performed using a technique called vessel loop closure in which a knot is created within the blue Vesseloops and stapled along the proximal margin of the incisional site. This is then equally with gentle tension traversed in a crisscross pattern across the wound or incisional site while being stabilized with skin robinson. A final knot is created distally to secure the tension which was noted to provide gentle reapproximation of the skin edges. Soft tissue void was packed with half-inch iodoform packing. Procedure #4 application of static circular external fixator left lower extremity: Astatic external fixator was placed using manufactures guidelines from [employer] with 2 tibial rings stabilized by 2 crossing pins with greater than 45 degree angle crossing avoiding all appropriate neurovascular structures. Appropriate contralateral tensioning was performed. Medial and lateral olive wires were placed in the calcaneus stabilizing across the ankle and subtalar joint to a footplate from the tibial rings. These were tensioned appropriately as well. 2 olive wires placed along the medial forefoot as well as 1 along the lateral forefoot and additional smooth wire replaced across the forefoot with the foot held in a plantar slightly plantarflexed position to allow for some plantarflexion of the dorsiflexed forefoot on the midfoot midfoot. This was performed by adding preload to the wires placing them in a bent position across the foot and when tensioned down this allowed for ptotic plantarflexion of the forefoot relative to the rear foot. Tourniquet was let down, total time was noted be 2 hours. Foot was cleansed and dressed with Betadine Adaptic to incisional sites Xeroform to pin sites 4 x 4's ABD pads and Kerlix Patient was transported to PACU vital signs stable and vascular status intact all digits for further monitoring prior to discharge. Patient tolerated procedure and anesthesia well apparent satisfactory condition. Patient will continue IV antibiotics will consider PICC line upon discharge. Plan is for patient to be able to ambulate with a walker on the external fixator. Skids were provided. Admit VTE Documentation VTE Present on Admission: Yes VTE Pharm Prophylaxis ordered?: Yes
--- NOTE | 2024-03-13 12:03 | POSTOPAN2_ITS ---
Anesthesia Postop Eval I Sum Postop Eval Completion status Anesthesia document: Postop Eval 1 completed: Yes Anesthesia Postop Eval I Summary Anesthesia Postop Eval I Summary: Anesthesia Postop Eval I: Assessment Summary Airway patent Yes 03/13/24 11:56 [email or web address] Spontaneous unlabored Yes 03/13/24 11:56 BENZENE [email or web address] respirations Mental status Calm 03/13/24 11:56 [email or web address] nausea No 03/13/24 11:56 BENZENE [email or web address] Vomiting No 03/13/24 11:56 [email or web address] [email or web address] Anesthesia Postop Eval I: Fluid Summary Crystalloid volume administer 1,500 03/13/24 11:56 [email or web address] (ml) Colloids volume administered ( ml) Blood Product volume administered (ml) Total IV fluid infused 1,500 03/13/24 11:56 [email or web address] Anesthesia Postop Eval I: Summary Notes Anesthesia Complication No 03/13/24 11:56 BENZENE [email or web address] Anesthesia Complication Comment: Post-operative progress note Anesthesia: Postop Eval II Evaluation Mental status: Awake Pain Level: 0 nausea: No Vomiting: No
--- NOTE | 2024-03-13 12:03 | PCM.POSTANE2 ---
Anesthesia Postop Eval I Sum Postop Eval Completion status Anesthesia document: Postop Eval 1 completed: Yes Anesthesia Postop Eval I Summary Anesthesia Postop Eval I Summary: Anesthesia Postop Eval I: Assessment Summary Airway patent Yes 03/13/24 11:56 [email or web address] Spontaneous unlabored Yes 03/13/24 11:56 IRON [email or web address] respirations Mental status Calm 03/13/24 11:56 [email or web address] [email or web address] nausea No 03/13/24 11:56 IRON [email or web address] Vomiting No 03/13/24 11:56 [email or web address] [email or web address] Anesthesia Postop Eval I: Fluid Summary Crystalloid volume administer 1,500 03/13/24 11:56 [email or web address] [email or web address] (ml) Colloids volume administered ( ml) Blood Product volume administered (ml) Total IV fluid infused 1,500 03/13/24 11:56 [email or web address] [email or web address] Anesthesia Postop Eval I: Summary Notes Anesthesia Complication No 03/13/24 11:56 IRON [email or web address] Anesthesia Complication Comment: Post-operative progress note Anesthesia: Postop Eval II Evaluation Mental status: Awake Pain Level: 0 nausea: No Vomiting: No
[2024-03-13 12:43] LABS: Bedside Glucose 186 mg/dL (74-106)
--- NOTE | 2024-03-13 13:50 | CHAPLAIN ---
Type of Pastoral Visit _x__ Initial Visit ___ Follow-up Visit ___ On-call Visit ___ General Patient Visit ___ Spiritual Assessment ___ Family Conference ___ Bereavement ___ Rapid Response ___ Code Blue ___ Other (describe below) Pastoral Care Referral From _x__ Patient ___ Family ___ Nurse ___ Physician ___ Shroud Line Tier ___ Yeast Fermentation Attendant ___ Other (describe below) Sacrament/Intervention _x__ Active listening ___ Anointing ___ Nondenominational ___ Bereavement ___ Communion ___ Namita exploration ___ _x__ Life review ___ Prayer ___ Reconciliation ___ Sacrament of Sick ___ Supportive presence ___ Wedding ___ Other (describe below) Pastoral Comments patient had recently returned to room from surgery; parents are with him in the room; pt has leg in many pins and rods; asked about pt's coping, feelings, and status during this time; pt says that he is doing well and that this surgery was to remove parts that had infection; pt expects to go home tomorrow; father says that patient has gone through a lot worse and will be fine; pt speaks of his work life and that I am busy and on the go; pt is optimistic and denies any further needs at this time
--- NOTE | 2024-03-13 15:04 | CASEMGMT ---
BUDDY DAVIS Assessment: Face to Face with pt for initial transition planning/care coordination assessment. RN RYAN introduced self and role at [facility], pt voices understanding and consents to assessment. Pt is A&O x4 and answers all questions appropriately at this time. Pt lying in bed in no distress. Pt parents in room, pt agreeable to discussing DC plan with parents in room. Care providers, pharmacy, and demographics verified/updated. Strata: 1 Admitting Dx: L Ankle Osteomyelitis PCP: Dahlia Specialists: Gregorio, podiatry Preferred Pharmacy: [facility] Insurance: [employer] Prescription Benefit: yes LNOK: Mom Living Arrangements: Pt lives with parents in a 2 story home with zero steps to enter. ADLs: Pt states I with ADLs and IADLs. Transportation: Pt drives self and denies concerns with transportation. Pt parents able to transport until pt can drive again. DME: Walker, cane, wheelchair, shower chair. HHC/SNF: Pt previously used [facility]. Pt would like to use [facility] again, denies wanting a list of local HHC agencies. If pt goes home with IV antibiotics, pt would like to use [facility]. Previously used [facility] and denies wanting a list of IV antibiotic providers. Pt states no concerns with going home at time of dc. Pt states no further concerns/needs. CM to follow. Advised pt to ask CM if any further question/concerns/needs arise, voices understanding. Pt Goal: Home with HHC Plan: Home with HHC, BUDDY DAVIS to follow plan of care. Kimberly GOODWIN CM
--- NOTE | 2024-03-13 15:07 | CASEMGMT ---
Discharge Planning Referral sent via [facility] to I. Bethanie Short DC Planning Asst.
--- NOTE | 2024-03-13 15:09 | CASEMGMT ---
BUDDY DAVIS asked Discharge plan veterinary assistant to send referral to [facility]. BUDDY DAVIS called [facility] to see if willing to accept pt for SN and PT. Waiting to hear back if able to accept.
--- NOTE | 2024-03-13 16:34 | PCM.RX.CS ---
Consult Antibiotic Management Pharmacy has been consulted to manage selected antibiotic: Vancomycin Type of Intervention Type of Consult: New start Suspected Infection Suspected Infection: Osteomyelitis Labs Labs: Sodium 139 mmol/L (136-145) 03/13/24 05:10 Potassium 3.7 mmol/L (3.5-5.1) 03/13/24 05:10 Chloride 106 mmol/L (98-107) 03/13/24 05:10 Carbon Dioxide 30.0 mmol/L (21.0-32.0) 03/13/24 05:10 Anion Gap 3 (5-15) L 03/13/24 05:10 BUN 15 mg/dL (7-18) 03/13/24 05:10 Creatinine 0.82 mg/dL (0.70-1.30) 03/13/24 05:10 Est GFR (MDRD) Af Amer 133 mL/min (>60) 03/13/24 05:10 Est GFR (MDRD) Non-Af 110 mL/min (>60) 03/13/24 05:10 BUN/Creatinine Ratio 18.3 RATIO (10-20) 03/13/24 05:10 Glucose 103 mg/dL (74-106) 03/13/24 05:10 Pharmacy Plan for Drug Dosing Pharmacy Plan for Drug Dosing: NEW START IV VANCOMYCIN Consulting Physician: Mariusz Indication: Osteomyelitis Goal Trough: 15-20 mg/dL SrCr: 0.82 mg/dL CrCl: 143 mL/min Comments: Loading dose of 2000mg given @ 1135 Vancomycin Dose: Will start 1250mg Q8 (@ 1930) and get a level prior to the 4th total dose per policy. Pending Level: 03/14/24 @ 1100 Pharmacy Service will continue to monitor and adjust dosing as required.
[2024-03-13] MEDS: Acetaminophen 500 MG Tablet 1000 MG PO ×2 (16:35→22:18)
[2024-03-13] MEDS: Losartan Potassium 25 MG Tablet PO (16:36)
[2024-03-13] MEDS: Insulin Lispro 100 UNIT/ML INSULN.PEN SC ×2 (16:38→22:16)
[2024-03-13 17:05] LABS: Bedside Glucose 172 mg/dL (74-106)
[2024-03-13] MEDS: Vancomycin HCl 1,250 MG in 0.9% Normal Saline (250mL Bag) 250 ML 167 MG IV (19:40)
[2024-03-13] MEDS: 0.9% Saline Lock 10 ML Syringe IV (19:41)
[2024-03-13] MEDS: Pravastatin 80 MG Tablet PO (22:16)
[2024-03-13 22:38] LABS: Bedside Glucose 240 mg/dL (74-106)
[2024-03-14 03:20] VITALS: BP 117/62; PULSE 87; RESP 16; TEMP 36.1; O2SAT 100
[2024-03-14] MEDS: Vancomycin HCl 1,250 MG in 0.9% Normal Saline (250mL Bag) 250 ML 167 MG IV ×3 (03:22→20:59)
[2024-03-14 05:05] LABS: Absolute Lymphocyte Count 0.77 X10^3/uL (0.83-4.51); Absolute Neutrophil Count 6.3 X10^3/uL (2.0-7.7); Basophil# 0.01 X10^3/uL; Basophil% 0.1 % (0-1); Eosinophil# 0.12 X10^3/uL; Eosinophils% 1.5 % (0-5); Hematocrit 36.3 % (40-54); Lymphocyte # 0.77 X10^3/ul (0.83-4.51); Lymphocyte % 9.8 % (19-41); Mean Corp Hgb Conc 30.3 g/dL (32-36); Mean Corpuscular Hgb 22.9 pg (27.0-32.0); Mean Corpuscular Volume 75.5 fL (80-94); Mean Platelet Vol. 9.3 fl (6.2-12.0); Monocyte# 0.65 X10^3/uL; Monocyte% 8.2 % (0-10); NRBC Flagged by Analyzer 0 % (0-5); Platelet Count 274 K/mm3 (150-450); RBC Distribution Width CV 15.2 % (11.6-14.6); RBC Distribution Width SD 41.2 fl (35.1-43.9); Red Blood Count 4.81 M/mm3 (4.6-6.2); White Blood Count 7.9 K/mm3 (4.4-11.0)
[2024-03-14 05:31] LABS: Anion Gap 5 (5-15); BUN 16 mg/dL (7-18); Calcium,Total 8.6 mg/dL (8.5-10.1); Chloride 105 mmol/L (98-107); Creatinine, Serum 0.89 mg/dL (0.70-1.30); EST Glomerular Filtration Rate 100 mL/min (>60); Est Glom Filt Rate - Afr Amer 121 mL/min (>60); Estimated Creatinine Clearance 132.14 ml/min; Glucose 170 mg/dL (74-106); Potassium 3.9 mmol/L (3.5-5.1); Sodium Level 139 mmol/L (136-145)
[2024-03-14 06:49] VITALS: BP 119/69; PULSE 80; RESP 18; TEMP 36.7; O2SAT 100
[2024-03-14] MEDS: Meropenem 1 GM in 0.9% Normal Saline (100mL MB+) 100 ML IV ×3 (06:51→23:04)
[2024-03-14] MEDS: Insulin Lispro 100 UNIT/ML INSULN.PEN SC ×3 (06:52→20:58)
[2024-03-14] MEDS: Acetaminophen 500 MG Tablet 1000 MG PO ×3 (06:54→23:04)
[2024-03-14 07:20] LABS: Bedside Glucose 165 mg/dL (74-106)
[2024-03-14] MEDS: Heparin Injection (Vial) 5,000 UNIT/ML VIAL 5000 UNIT SC ×2 (08:26→20:59)
[2024-03-14] MEDS: Losartan Potassium 25 MG Tablet PO (08:27)
[2024-03-14] MEDS: SEMAGLUTIDE 14 MG TABLET PO (08:27)
[2024-03-14 08:41] VITALS: BP 114/78; PULSE 85; RESP 18; TEMP 36.6; O2SAT 99
--- NOTE | 2024-03-14 08:58 | WOUNDNOTE ---
wound photo: left lower leg/foot
--- NOTE | 2024-03-14 08:59 | WOUNDNOTE ---
wound photo: left foot
--- NOTE | 2024-03-14 08:59 | WOUNDNOTE ---
wound photo: left lower leg/foot
--- NOTE | 2024-03-14 09:00 | WOUNDNOTE ---
wound photo: left lower leg/foot
--- NOTE | 2024-03-14 11:09 | CASEMGMT ---
Addendum entered by Jamarcus Lay 03/14/24 14:17: Dr. Vee states that the pt will most likely be needing IV ATB at home once discharged. See BUDDY Adkins CM note. This RN CM collaborated with [facility] and [facility] states that the pt has met his OOP deductible and the pt has a 0$ co-pay. This RN CM to pt room at this time and updated with this information. Pt content with this. Pt states that he has had IV ATB infusions at home before and that his parents will be the teachable CG. Pt states that he is living with his parents currently. PICC insertion pending. Awaiting official IV ATB Rx from the ID doctor. Original Note: [facility] calls and states that they are able to accept the pt for SN and PT with a SOC date TBD. Pt is requiring SN for wound dressing changes 2x/week. At this time, it is uncertain if the pt will need home IV ATB infusions. Awaiting ID consult. [facility].
[2024-03-14 12:29] LABS: Bedside Glucose 146 mg/dL (74-106)
[2024-03-14 12:43] LABS: Vancomycin, Trough Level 18.4 ug/mL (5.0-15.0)
--- NOTE | 2024-03-14 12:43 | PN_ITS ---
Subjective Subjective 1 day post op no pain overnight some concern for temporary discoloration of hallux which returned to normal upon elevation denies constitutional symptoms Objective Data Objective Data Vital Signs: Vital Signs Temp Pulse Resp BP Pulse Ox O2 Del Method O2 Flow Rate 98 F 85 18 114/78 99 Room Air 2 03/14/24 08:41 03/14/24 08:41 03/14/24 08:41 03/14/24 08:41 03/14/24 08:41 03/14/24 08:41 03/13/24 12:00 Oxygen Flow Rate (L/min) 2 Oxygen Delivery Method Room Air Weight: 104.326 kg Body Mass Index (BMI) 33.0 Intake & Output: Intake and Output for Last 24 Hours 03/12/24 03/13/24 03/14/24 23:59 23:59 23:59 Intake Total 110 / 110 3741.5 / 3741.5 515 / 515 Output Total 300 / 300 1000 / 1000 Balance 110 / 110 3441.5 / 3441.5 -485 / -485 Lab / Micro Data 03/14/24 04:25 03/14/24 04:25 Labs: Laboratory Results - last 24 hr 03/13/24 12:24: POC Glucose 186 H 03/13/24 16:33: POC Glucose 172 H 03/13/24 22:09: POC Glucose 240 H 03/14/24 04:25: WBC 7.9, RBC 4.81, Hgb 11.0 L, Hct 36.3 L, MCV 75.5 L, MCH 22.9 L, MCHC 30.3 L, RDW Std Deviation 41.2, RDW Coeff of Venita 15.2 H, Plt Count 274, MPV 9.3, Immature Gran % (Auto) 0.400, Neut % (Auto) 80.0 H, Lymph % (Auto) 9.8 L, [place] % (Auto) 8.2, Eos % (Auto) 1.5, Baso % (Auto) 0.1, Absolute Neuts (auto) 6.3, Absolute Lymphs (auto) 0.77 L, Nucleated RBC % 0, Sodium 139, Potassium 3.9, Chloride 105, Carbon Dioxide 29.0, Anion Gap 5, BUN 16, Creatinine 0.89, Estim Creat Clear Calc 132.14, Est GFR (MDRD) Af Amer 121, Est GFR (MDRD) Non-Af 100, BUN/Creatinine Ratio 18.0, Glucose 170 H, Calcium 8.6 03/14/24 06:50: POC Glucose 165 H 03/14/24 12:09: POC Glucose 146 H Micro: Microbiology 03/13/24 11:23 Wound Abcess - Aerobic & Anaerobic Swabs Gram Stain - Final 03/13/24 11:23 Wound Abcess - Aerobic & Anaerobic Swabs Wound Culture - Preliminary Gram positive organism 03/13/24 11:24 Bone - Left Foot Gram Stain - Final 03/13/24 11:24 Bone - Left Foot Wound Culture - Preliminary Gram positive organism 03/13/24 11:23 Tissue - Ankle Gram Stain - Final 03/13/24 11:23 Tissue - Ankle Wound Culture - Preliminary Gram positive organism Radiography Diagnostic Testing: Radiology Impression Ankle X-Ray 03/13/24 07:30 IMPRESSION: Intraoperative fluoroscopic services provided for hardware removal and external fixation. Electronically Signed: Olvin Gandara MD at 15:31 EDT , Physical Exam Narrative neurovascular status unchanged lateral left ankle incision at site of abscess well approximated with intact vessel loops. intact medial leg, posterior heel and plantar heel incisions. intact ringed external fixator with intact pin sites Assessment & Plan Assessment/Plan (1) Osteomyelitis of ankle, left, acute: PLAN: Exam performed VSS ID on board; vanc butch - I would recommned [facility] skilled nursing plan for stage procedure with Stage I involcing infection clearance and stage 2 including definitive stabilization of ankle pending infection clearance in 6-8 weeks IM on board patient weightbearing as toelrated with walker recommend [facility] upon DC
[2024-03-14 13:15] VITALS: BP 108/69; PULSE 78; RESP 18; TEMP 36.6; O2SAT 98
--- NOTE | 2024-03-14 13:21 | PHA.PHARE_ITS ---
Consult Antibiotic Management Pharmacy has been consulted to manage selected antibiotic: Vancomycin Type of Intervention Type of Consult: Follow-up Suspected Infection Suspected Infection: Osteomyelitis Labs Labs: Sodium 139 mmol/L (136-145) 03/14/24 04:25 Potassium 3.9 mmol/L (3.5-5.1) 03/14/24 04:25 Chloride 105 mmol/L (98-107) 03/14/24 04:25 Carbon Dioxide 29.0 mmol/L (21.0-32.0) 03/14/24 04:25 Anion Gap 5 (5-15) 03/14/24 04:25 BUN 16 mg/dL (7-18) 03/14/24 04:25 Creatinine 0.89 mg/dL (0.70-1.30) 03/14/24 04:25 Est GFR (MDRD) Af Amer 121 mL/min (>60) 03/14/24 04:25 Est GFR (MDRD) Non-Af 100 mL/min (>60) 03/14/24 04:25 BUN/Creatinine Ratio 18.0 RATIO (10-20) 03/14/24 04:25 Glucose 170 mg/dL (74-106) H 03/14/24 04:25 Vancomycin Trough 18.4 ug/mL (5.0-15.0) H 03/14/24 11:57 Microbiology Microbiology: Microbiology 03/13/24 11:23 Wound Abcess - Aerobic & Anaerobic Swabs Gram Stain - Final 03/13/24 11:23 Wound Abcess - Aerobic & Anaerobic Swabs Wound Culture - Preliminary Gram positive organism 03/13/24 11:24 Bone - Left Foot Gram Stain - Final 03/13/24 11:24 Bone - Left Foot Wound Culture - Preliminary Gram positive organism 03/13/24 11:23 Tissue - Ankle Gram Stain - Final 03/13/24 11:23 Tissue - Ankle Wound Culture - Preliminary Gram positive organism Pharmacy Plan for Drug Dosing Pharmacy Plan for Drug Dosing: VANCOMYCIN LEVEL RECEIVED Current Vancomycin Dose: 1250MG Q8 Number of Doses Received: 3 Vancomycin Level: 18.4 MG/DL Hours Since Last Dose: 8.5 Renal Function: SCr 0.89 mg/dL, crcl 132 mL/min Renal Function Trend: stable Lab/Micro: wound cx with gram(+) organism Vancomycin Plan/Comments: 8.5 hour level is therapeutic at 18.4mg/dL (goal 15- 20mg/dL). Will continue current dosing and get a level in 2 days per policy. Pending Level: 03/16/24 @ 1300 Pharmacy Service will continue to monitor and adjust dosing as required.
--- NOTE | 2024-03-14 13:30 | PCM.PN.HOSP ---
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 (03/13/24) Non-pressure chronic ulcer of other part of left foot with necrosis of bone (03/13/24) Charcot's joint, left ankle and foot (03/13/24) Other acute osteomyelitis, left ankle and foot (03/13/24) Infection and inflammatory reaction due to other internal orthopedic prosthetic devices, implants and grafts, initial encounter (03/13/24) Objective Data Objective Data Vital Signs: Vital Signs Temp Pulse Resp BP Pulse Ox O2 Del Method O2 Flow Rate 98 F 85 18 114/78 99 Room Air 2 03/14/24 08:41 03/14/24 08:41 03/14/24 08:41 03/14/24 08:41 03/14/24 08:41 03/14/24 08:41 03/13/24 12:00 Oxygen Flow Rate (L/min) 2 Oxygen Delivery Method Room Air Weight: 229 lb 15.991 oz Body Mass Index (BMI) 33.0 Intake & Output: Intake and Output for Last 24 Hours 03/12/24 03/13/24 03/14/24 23:59 23:59 23:59 Intake Total 110 / 110 3741.5 / 3741.5 515 / 515 Output Total 300 / 300 1000 / 1000 Balance 110 / 110 3441.5 / 3441.5 -485 / -485 Lab / Micro Data 03/14/24 04:25 03/14/24 04:25 Labs: Laboratory Results - last 24 hr 03/13/24 16:33: POC Glucose 172 H 03/13/24 22:09: POC Glucose 240 H 03/14/24 04:25: WBC 7.9, RBC 4.81, Hgb 11.0 L, Hct 36.3 L, MCV 75.5 L, MCH 22.9 L, MCHC 30.3 L, RDW Std Deviation 41.2, RDW Coeff of Venita 15.2 H, Plt Count 274, MPV 9.3, Immature Gran % (Auto) 0.400, Neut % (Auto) 80.0 H, Lymph % (Auto) 9.8 L, [place] % (Auto) 8.2, Eos % (Auto) 1.5, Baso % (Auto) 0.1, Absolute Neuts (auto) 6.3, Absolute Lymphs (auto) 0.77 L, Nucleated RBC % 0, Sodium 139, Potassium 3.9, Chloride 105, Carbon Dioxide 29.0, Anion Gap 5, BUN 16, Creatinine 0.89, Estim Creat Clear Calc 132.14, Est GFR (MDRD) Af Amer 121, Est GFR (MDRD) Non-Af 100, BUN/Creatinine Ratio 18.0, Glucose 170 H, Calcium 8.6 03/14/24 06:50: POC Glucose 165 H 03/14/24 11:57: Vancomycin Trough 18.4 H 03/14/24 12:09: POC Glucose 146 H Micro: Microbiology 03/13/24 11:23 Wound Abcess - Aerobic & Anaerobic Swabs Gram Stain - Final 03/13/24 11:23 Wound Abcess - Aerobic & Anaerobic Swabs Wound Culture - Preliminary Gram positive organism 03/13/24 11:24 Bone - Left Foot Gram Stain - Final 03/13/24 11:24 Bone - Left Foot Wound Culture - Preliminary Gram positive organism 03/13/24 11:23 Tissue - Ankle Gram Stain - Final 03/13/24 11:23 Tissue - Ankle Wound Culture - Preliminary Gram positive organism Radiography Diagnostic Testing: Radiology Impression Ankle X-Ray 03/13/24 07:30 IMPRESSION: Intraoperative fluoroscopic services provided for hardware removal and external fixation. Electronically Signed: Olvin Gandara MD at 15:31 EDT Reading Location ID and State: [address] [place] [address] , Service support , Physical Exam Narrative Seen and examined. Patient has history of diabetes mellitus type 2 and is stated sugars are controlled. He also said he is losing weight. Glucose in 180s Physical exam General: Alert, Oriented x3, Cooperative HEENT: Atraumatic, PERRLA, EOMI, Normocephalic Oral: No Gingival or Mucosal Lesions/ Ulcerations Neck: Supple, No JVD, Negative Carotid Bruits Chest wall/Lungs: Air entry diminished in bilateral lung bases. No crepitation/rhonchi Cardiovascular: Regular rate, Regular Rhythm, Normal S1, Normal S2, No M/G/R Abdomen: Bowel Sounds Present, Soft, Non Tender, Non-Distended : No dysuria. No renal angle tenderness. No suprapubic tenderness. Extremities: No edema, Capillary Refill Less than 3 Seconds Skin: Left foot hardware was removed. Surgical dressing present. Had external bleeding. Musculoskeletal: No Tenderness to Palpation of Joints or Extremities Neurological: Cranial nerves II-XII grossly intact, DTR 2+/4. No acute focal neurological deficit. Psych/Mental Status: Normal Affect, Appropriate. Assessment & Plan Assessment/Plan (1) Infected hardware in left leg: PLAN: Plan 1. Infected hardware left ankle with chronic osteomyelitis complicated with abscess that required incision and drainage in August 2023 due to Enterococcus faecalis: The patient is admitted under podiatry service. Patient had removal of intramedullary nail left ankle, incision and drainage of abscess down to left lateral ankle bone level, delayed primary closure and application of external fixator on 03/13/2024. Patient stated he had left ankle fusion in July 2023 after that he had incision and drainage in September 01, 2023 and then 6 weeks of ertapenem. Patient was still getting intermittent purulent discharge with abscess/sinus formation with wound culture positive Enterococcus faecalis same as culture from December 30. ID consult reviewed. On vancomycin and meropenem for broad coverage. 03/14: Gram stain shows preliminary gram-positive organism from bone. Patient on vancomycin and meropenem. 2. Type 2 diabetes with diabetic neuropathy-patient's home medications, Accu-Chek before meals and at bedtime with Humalog sliding scale coverage and hypoglycemia protocol. On semaglutide 14 mg p.o. daily. 3. Hyperlipidemia-patient is on pravastatin, continued 4. Essential hypertension-patient is on losartan- continued 5. Obesity grade 1: BMI 33.0 kg/m? Microbiology Past 72 Hours 03/13/24 11:23 Wound Abcess - Aerobic & Anaerobic Swabs Gram Stain - Final 03/13/24 11:23 Wound Abcess - Aerobic & Anaerobic Swabs Wound Culture - Preliminary Gram positive organism 03/13/24 11:24 Bone - Left Foot Gram Stain - Final 03/13/24 11:24 Bone - Left Foot Wound Culture - Preliminary Gram positive organism 03/13/24 11:23 Tissue - Ankle Gram Stain - Final 03/13/24 11:23 Tissue - Ankle Wound Culture - Preliminary Gram positive organism Laboratory Results 03/13/24 16:33: POC Glucose 172 H 03/13/24 22:09: POC Glucose 240 H 03/14/24 04:25: WBC 7.9, RBC 4.81, Hgb 11.0 L, Hct 36.3 L, MCV 75.5 L, MCH 22.9 L, MCHC 30.3 L, RDW Std Deviation 41.2, RDW Coeff of Venita 15.2 H, Plt Count 274, MPV 9.3, Immature Gran % (Auto) 0.400, Neut % (Auto) 80.0 H, Lymph % (Auto) 9.8 L, Owen % (Auto) 8.2, Eos % (Auto) 1.5, Baso % (Auto) 0.1, Absolute Neuts (auto) 6.3, Absolute Lymphs (auto) 0.77 L, Nucleated RBC % 0, Sodium 139, Potassium 3.9, Chloride 105, Carbon Dioxide 29.0, Anion Gap 5, BUN 16, Creatinine 0.89, Estim Creat Clear Calc 132.14, Est GFR (MDRD) Af Amer 121, Est GFR (MDRD) Non-Af 100, BUN/Creatinine Ratio 18.0, Glucose 170 H, Calcium 8.6 03/14/24 06:50: POC Glucose 165 H 03/14/24 11:57: Vancomycin Trough 18.4 H 03/14/24 12:09: POC Glucose 146 H Charges/Coding Visit Charges Inpatient E&M: 73171 Subs Hosp L2
--- NOTE | 2024-03-14 15:28 | CON.PCM.ID_ITS ---
Assessment & Plan Assessment/Plan (1) Charcot's joint, left ankle and foot: (2) Infected hardware in left leg: PLAN: Recent wound cx with enterococcus. Taken to OR 03/13/[address] Perkins for I&D with external fixator placed. Will cover broadly with vanc/butch while cxs pending. Will follow, thank you HPI Consult Data Date of Consult: 03/14/24 HPI Narrative Reason for Consultation: osteo HPI Narrative: SNEHA WEI, is a 43 M with DM, charcot foot, hardware in place, presented to wound center with 1-2 weeks worsened wound with some redness. No fever or chills. Wound cx done. Admitted and taken to OR 03/13/[address] Perkins for I&D and ext fixator placement. Feeling ok, no n/v/d. Full ROS performed and neg except as noted above. 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 Hypertension Wears glasses Dietary restriction History of edema Hypertension Gas gangrene of foot Osteomyelitis of ankle or foot, left, acute Type 2 diabetes mellitus with diabetic polyneuropathy Home Medications ?Medication ?Instructions ?Recorded ?Last Taken ?Type multivitamin 1 tab PO DAILY SUPPLEMENT 11/24/21 03/12/24 History losartan 25 mg tablet 25 mg PO DAILY BLOOD PRESSURE 09/15/22 03/12/24 History semaglutide 14 mg tablet (Rybelsus) 14 mg PO DAILY DIABETES 07/06/23 03/12/24 History ascorbic acid (vitamin C) 1,000 mg 1,000 mg PO DAILY SUPPLEMENT 08/30/23 03/12/24 History tablet,extended release (C Complex) omega 5-yjw-zen-fish oil 300 2 cap PO DAILY SUPPLEMENT 08/30/23 03/12/24 History mg-1,000 mg capsule (Fish Oil) pravastatin 80 mg tablet 80 mg PO QHS CHOLESTEROL 08/30/23 03/11/24 History levofloxacin 500 mg tablet 500 mg PO DAILY 02/21/24 03/12/24 History cephalexin 750 mg capsule 750 mg PO BID #20 caps 03/06/24 03/12/24 Rx linezolid 600 mg tablet 600 mg PO BID #28 tabs 03/06/24 Unknown Rx Allergy/AdvReac Type Severity Reaction Status Date / Time Penicillins (PCN) Allergy Rash Verified 08/30/23 10:45 Surgical History Hx of foot surgery Hx of foot surgery Hx of eye surgery Social History Smoking Status: Never smoker Physical Exam Const alert, oriented x3 and no apparent distress General Appearance: cooperative HEENT normocephalic and head/scalp atraumatic Eyes PERRL and EOMs intact bilaterally Neck supple and No nodes Resp normal air movement and clear to auscultation bilaterally Cardio regular rate and regular rhythm GI soft to palpation, non-tender and non-distended Extremity General Extremity: edema Skin Skin Narrative: L lower leg external fixator in place Neuro CN's II-XII intact bilaterally Lab / Micro Data Attestation: I reviewed the patient's lab results. 03/14/24 04:25 03/14/24 04:25 Labs: Laboratory Results - last 24 hr 03/13/24 16:33: POC Glucose 172 H 03/13/24 22:09: POC Glucose 240 H 03/14/24 04:25: WBC 7.9, RBC 4.81, Hgb 11.0 L, Hct 36.3 L, MCV 75.5 L, MCH 22.9 L, MCHC 30.3 L, RDW Std Deviation 41.2, RDW Coeff of Venita 15.2 H, Plt Count 274, MPV 9.3, Immature Gran % (Auto) 0.400, Neut % (Auto) 80.0 H, Lymph % (Auto) 9.8 L, [place] % (Auto) 8.2, Eos % (Auto) 1.5, Baso % (Auto) 0.1, Absolute Neuts (auto) 6.3, Absolute Lymphs (auto) 0.77 L, Nucleated RBC % 0, Sodium 139, Potassium 3.9, Chloride 105, Carbon Dioxide 29.0, Anion Gap 5, BUN 16, Creatinine 0.89, Estim Creat Clear Calc 132.14, Est GFR (MDRD) Af Amer 121, Est GFR (MDRD) Non-Af 100, BUN/Creatinine Ratio 18.0, Glucose 170 H, Calcium 8.6 03/14/24 06:50: POC Glucose 165 H 03/14/24 11:57: Vancomycin Trough 18.4 H 03/14/24 12:09: POC Glucose 146 H Micro: Microbiology 03/13/24 11:23 Wound Abcess - Aerobic & Anaerobic Swabs Gram Stain - Final 03/13/24 11:23 Wound Abcess - Aerobic & Anaerobic Swabs Wound Culture - Preliminary Gram positive organism 03/13/24 11:24 Bone - Left Foot Gram Stain - Final 03/13/24 11:24 Bone - Left Foot Wound Culture - Preliminary Gram positive organism 03/13/24 11:23 Tissue - Ankle Gram Stain - Final 03/13/24 11:23 Tissue - Ankle Wound Culture - Preliminary Gram positive organism Imaging Radiology Impression Ankle X-Ray 03/13/24 07:30 IMPRESSION: Intraoperative fluoroscopic services provided for hardware removal and external fixation. Electronically Signed: Olvin Gandara MD at 15:31 EDT ,
[2024-03-14 17:10] VITALS: BP 115/71; PULSE 74; RESP 18; TEMP 36.6; O2SAT 99
[2024-03-14 17:16] LABS: Bedside Glucose 165 mg/dL (74-106)
[2024-03-14 20:35] VITALS: BP 106/68; PULSE 75; RESP 18; TEMP 36.9; O2SAT 99
[2024-03-14 22:45] LABS: Bedside Glucose 171 mg/dL (74-106)
[2024-03-14] MEDS: Pravastatin 80 MG Tablet PO (23:04)
[2024-03-15 05:00] VITALS: BP 127/80; PULSE 81; RESP 18; TEMP 36.6; O2SAT 99
[2024-03-15] MEDS: Vancomycin HCl 1,250 MG in 0.9% Normal Saline (250mL Bag) 250 ML 2167 MG IV (05:02)
[2024-03-15] MEDS: Acetaminophen 500 MG Tablet 1000 MG PO ×3 (07:01→21:47)
[2024-03-15] MEDS: Meropenem 1 GM in 0.9% Normal Saline (100mL MB+) 100 ML IV ×3 (07:02→23:59)
[2024-03-15 07:23] LABS: Bedside Glucose 111 mg/dL (74-106)
[2024-03-15 07:26] LABS: Absolute Lymphocyte Count 1.26 X10^3/uL (0.83-4.51); Absolute Neutrophil Count 3.4 X10^3/uL (2.0-7.7); Basophil# 0.02 X10^3/uL; Basophil% 0.4 % (0-1); Eosinophil# 0.32 X10^3/uL; Eosinophils% 5.8 % (0-5); Hematocrit 34.9 % (40-54); Hemoglobin 10.6 g/dL (13.0-16.5); Lymphocyte # 1.26 X10^3/ul (0.83-4.51); Lymphocyte % 22.9 % (19-41); Mean Corp Hgb Conc 30.4 g/dL (32-36); Mean Corpuscular Volume 75.7 fL (80-94); Mean Platelet Vol. 9.5 fl (6.2-12.0); Monocyte# 0.47 X10^3/uL; Monocyte% 8.5 % (0-10); NRBC Flagged by Analyzer 0 % (0-5); Neutrophil # 3.41 X10^3/uL (2.7-7.7); Platelet Count 242 K/mm3 (150-450); RBC Distribution Width CV 15.5 % (11.6-14.6); RBC Distribution Width SD 42.3 fl (35.1-43.9); Red Blood Count 4.61 M/mm3 (4.6-6.2); White Blood Count 5.5 K/mm3 (4.4-11.0)
[2024-03-15 08:07] LABS: Anion Gap 4 (5-15); BUN 15 mg/dL (7-18); BUN/Creat Ratio 20.5 RATIO (10-20); Calcium,Total 8.5 mg/dL (8.5-10.1); Chloride 111 mmol/L (98-107); Creatinine, Serum 0.73 mg/dL (0.70-1.30); EST Glomerular Filtration Rate 125 mL/min (>60); Est Glom Filt Rate - Afr Amer 152 mL/min (>60); Glucose 116 mg/dL (74-106); Potassium 3.7 mmol/L (3.5-5.1); Sodium Level 142 mmol/L (136-145)
[2024-03-15] MEDS: SEMAGLUTIDE 14 MG TABLET PO (08:17)
[2024-03-15] MEDS: Losartan Potassium 25 MG Tablet PO (08:17)
[2024-03-15] MEDS: Heparin Injection (Vial) 5,000 UNIT/ML VIAL 5000 UNIT SC ×2 (08:17→21:47)
--- NOTE | 2024-03-15 09:23 | WOUNDNOTE ---
Dressing to the left lower leg is D&I. Pt hoping to be discharged home today. ID awaiting cultures.
--- NOTE | 2024-03-15 10:04 | PCM.PN.ID ---
Physical Exam Narrative Feeling ok, no pain, no n/v/d, no fever Const alert and no apparent distress General Appearance: cooperative Resp normal air movement and clear to auscultation bilaterally Cardio regular rate and regular rhythm GI soft to palpation, non-tender and non-distended Skin no rashes or lesions noted ID ID: Route of nutrition/ use of supplements: [] Nutritional Intake: [] IV Site: [] Hernandes Catheter: [] Assessment & Plan Assessment/Plan (1) Charcot's joint, left ankle and foot: (2) Infected hardware in left leg: PLAN: Recent wound cx with enterococcus. Taken to OR 03/13/[address] Perkins for I&D with external fixator placed. Will cover broadly with vanc/butch while cxs pending, so far seeing gram pos. Plan on picc and 6 weeks iv abx tomorrow. Will follow
[2024-03-15 10:32] VITALS: BP 110/74; PULSE 88; RESP 18; TEMP 36.3; O2SAT 99
[2024-03-15] MEDS: Insulin Lispro 100 UNIT/ML INSULN.PEN SC (11:30)
[2024-03-15 11:59] LABS: Bedside Glucose 155 mg/dL (74-106)
[2024-03-15] MEDS: Vancomycin HCl 1,250 MG in 0.9% Normal Saline (250mL Bag) 250 ML 167 MG IV ×2 (12:51→21:35)
--- NOTE | 2024-03-15 12:53 | PCM.PROGNOTE ---
Subjective Subjective Denies constitutional symptoms, denies pain. No changes overnight. Some venous congestion when ambulating. Objective Data Objective Data Vital Signs: Vital Signs Temp Pulse Resp BP Pulse Ox O2 Del Method O2 Flow Rate 97.4 F L 88 18 110/74 99 Room Air 2 03/15/24 10:32 03/15/24 10:32 03/15/24 10:32 03/15/24 10:32 03/15/24 10:32 03/15/24 10:32 03/13/24 12:00 Oxygen Flow Rate (L/min) 2 Oxygen Delivery Method Room Air Weight: 104.326 kg Body Mass Index (BMI) 33.0 Intake & Output: Intake and Output for Last 24 Hours 03/13/24 03/14/24 03/15/24 23:59 23:59 23:59 Intake Total 3741.5 / 3741.5 1485 / 1485 915 / 915 Output Total 300 / 300 1900 / 1900 900 / 900 Balance 3441.5 / 3441.5 -415 / -415 Lab / Micro Data 03/15/24 06:31 03/15/24 06:31 Labs: Laboratory Results - last 24 hr 03/14/24 16:56: POC Glucose 165 H 03/14/24 20:57: POC Glucose 171 H 03/15/24 06:31: WBC 5.5, RBC 4.61, Hgb 10.6 L, Hct 34.9 L, MCV 75.7 L, MCH 23.0 L, MCHC 30.4 L, RDW Std Deviation 42.3, RDW Coeff of Venita 15.5 H, Plt Count 242, MPV 9.5, Immature Gran % (Auto) 0.400, Neut % (Auto) 62.0, Lymph % (Auto) 22.9, [place] % (Auto) 8.5, Eos % (Auto) 5.8 H, Baso % (Auto) 0.4, Absolute Neuts (auto) 3.4, Absolute Lymphs (auto) 1.26, Nucleated RBC % 0, Sodium 142, Potassium 3.7, Chloride 111 H, Carbon Dioxide 27.0, Anion Gap 4 L, BUN 15, Creatinine 0.73, Estim Creat Clear Calc 161.10, Est GFR (MDRD) Af Amer 152, Est GFR (MDRD) Non-Af 125, BUN/Creatinine Ratio 20.5 H, Glucose 116 H, Calcium 8.5 03/15/24 07:00: POC Glucose 111 H 03/15/24 11:29: POC Glucose 155 H Micro: Microbiology 03/13/24 11:23 Wound Abcess - Aerobic & Anaerobic Swabs Gram Stain - Final 03/13/24 11:23 Wound Abcess - Aerobic & Anaerobic Swabs Wound Culture - Preliminary GPC Poss Enterococcus sp 03/13/24 11:24 Bone - Left Foot Gram Stain - Final 03/13/24 11:24 Bone - Left Foot Wound Culture - Preliminary Gram positive vance GPC Poss Enterococcus sp 03/13/24 11:23 Tissue - Ankle Gram Stain - Final 03/13/24 11:23 Tissue - Ankle Wound Culture - Preliminary GPC Poss Enterococcus sp Physical Exam Narrative neurovascular status unchanged lateral left ankle incision at site of abscess well approximated with intact vessel loops. intact medial leg, posterior heel and plantar heel incisions. intact ringed external fixator with intact pin sites Assessment & Plan Assessment/Plan (1) Osteomyelitis of ankle, left, acute: PLAN: Exam performed VSS ID on board; planning PICC IV antibiotics for 6 weeks pending final cultures. Possible Enterococcus species growing in bone and soft tissue. manager long term care plan is for a staged procedure with Stage I involving infection clearance and stage 2 including definitive stabilization of ankle pending infection clearance in 6-8 weeks IM on board patient weightbearing as tolerated with walker recommend HHC upon DC
[2024-03-15 14:16] VITALS: BP 119/70; PULSE 85; RESP 18; TEMP 36.7; O2SAT 98
--- NOTE | 2024-03-15 15:41 | PCM.PN.HOSP ---
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 (03/13/24) Non-pressure chronic ulcer of other part of left foot with necrosis of bone (03/13/24) Charcot's joint, left ankle and foot (03/13/24) Other acute osteomyelitis, left ankle and foot (03/13/24) Infection and inflammatory reaction due to other internal orthopedic prosthetic devices, implants and grafts, initial encounter (03/13/24) Objective Data Objective Data Vital Signs: Vital Signs Temp Pulse Resp BP Pulse Ox O2 Del Method O2 Flow Rate 98.1 F 85 18 119/70 98 Room Air 2 03/15/24 14:16 03/15/24 14:16 03/15/24 14:16 03/15/24 14:16 03/15/24 14:16 03/15/24 14:18 03/13/24 12:00 Oxygen Flow Rate (L/min) 2 Oxygen Delivery Method Room Air Weight: 229 lb 15.991 oz Body Mass Index (BMI) 33.0 Intake & Output: Intake and Output for Last 24 Hours 03/13/24 03/14/24 03/15/24 23:59 23:59 23:59 Intake Total 3741.5 / 3741.5 1485 / 1485 1190 / 1190 Output Total 300 / 300 1900 / 1900 900 / 900 Balance 3441.5 / 3441.5 -415 / -415 290 / 290 Lab / Micro Data 03/15/24 06:31 03/15/24 06:31 Labs: Laboratory Results - last 24 hr 03/14/24 16:56: POC Glucose 165 H 03/14/24 20:57: POC Glucose 171 H 03/15/24 06:31: WBC 5.5, RBC 4.61, Hgb 10.6 L, Hct 34.9 L, MCV 75.7 L, MCH 23.0 L, MCHC 30.4 L, RDW Std Deviation 42.3, RDW Coeff of Venita 15.5 H, Plt Count 242, MPV 9.5, Immature Gran % (Auto) 0.400, Neut % (Auto) 62.0, Lymph % (Auto) 22.9, [place] % (Auto) 8.5, Eos % (Auto) 5.8 H, Baso % (Auto) 0.4, Absolute Neuts (auto) 3.4, Absolute Lymphs (auto) 1.26, Nucleated RBC % 0, Sodium 142, Potassium 3.7, Chloride 111 H, Carbon Dioxide 27.0, Anion Gap 4 L, BUN 15, Creatinine 0.73, Estim Creat Clear Calc 161.10, Est GFR (MDRD) Af Amer 152, Est GFR (MDRD) Non-Af 125, BUN/Creatinine Ratio 20.5 H, Glucose 116 H, Calcium 8.5 03/15/24 07:00: POC Glucose 111 H 03/15/24 11:29: POC Glucose 155 H Micro: Microbiology 03/13/24 11:23 Wound Abcess - Aerobic & Anaerobic Swabs Gram Stain - Final 03/13/24 11:23 Wound Abcess - Aerobic & Anaerobic Swabs Wound Culture - Preliminary GPC Poss Enterococcus sp 03/13/24 11:24 Bone - Left Foot Gram Stain - Final 03/13/24 11:24 Bone - Left Foot Wound Culture - Preliminary Gram positive vance GPC Poss Enterococcus sp 03/13/24 11:23 Tissue - Ankle Gram Stain - Final 03/13/24 11:23 Tissue - Ankle Wound Culture - Preliminary GPC Poss Enterococcus sp Physical Exam Narrative Seen and examined. Patient has history of diabetes mellitus type 2 and is stated sugars are controlled. He also said he is losing weight. Glucose in 180s. Bone tissue culture growing GPC Enterococcus. Physical exam General: Alert, Oriented x3, Cooperative HEENT: Atraumatic, PERRLA, EOMI, Normocephalic Oral: No Gingival or Mucosal Lesions/ Ulcerations Neck: Supple, No JVD, Negative Carotid Bruits Chest wall/Lungs: Air entry diminished in bilateral lung bases. No crepitation/rhonchi Cardiovascular: Regular rate, Regular Rhythm, Normal S1, Normal S2, No M/G/R Abdomen: Bowel Sounds Present, Soft, Non Tender, Non-Distended : No dysuria. No renal angle tenderness. No suprapubic tenderness. Extremities: No edema, Capillary Refill Less than 3 Seconds Skin: Left foot hardware was removed. Surgical dressing present. Surgical dressing is dry. Musculoskeletal: No Tenderness to Palpation of Joints or Extremities Neurological: Cranial nerves II-XII grossly intact, DTR 2+/4. No acute focal neurological deficit. Psych/Mental Status: Normal Affect, Appropriate. Assessment & Plan Assessment/Plan (1) Infected hardware in left leg: PLAN: Plan 1. Infected hardware left ankle with chronic osteomyelitis complicated with abscess that required incision and drainage in August 2023 due to Enterococcus faecalis: The patient is admitted under podiatry service. Patient had removal of intramedullary nail left ankle, incision and drainage of abscess down to left lateral ankle bone level, delayed primary closure and application of external fixator on 03/13/2024. Patient stated he had left ankle fusion in July 2023 after that he had incision and drainage in September 01, 2023 and then 6 weeks of ertapenem. Patient was still getting intermittent purulent discharge with abscess/sinus formation with wound culture positive Enterococcus faecalis same as culture from December 30. ID consult reviewed. On vancomycin and meropenem for broad coverage. 03/14: Gram stain shows preliminary gram-positive organism from bone. Patient on vancomycin and meropenem. 03/15: Wound culture, bone and tissue culture all growing GPC possible Enterococcus species, preliminary. Full culture pending. Plan for PICC line and 6 weeks IV antibiotic tomorrow. 2. Type 2 diabetes with diabetic neuropathy-patient's home medications, Accu-Chek before meals and at bedtime with Humalog sliding scale coverage and hypoglycemia protocol. On semaglutide 14 mg p.o. daily. 03/15: Glucoses controlled. 3. Hyperlipidemia-patient is on pravastatin, continued 4. Essential hypertension-patient is on losartan- continued 5. Obesity grade 1: BMI 33.0 kg/m? Microbiology Past 72 Hours 03/13/24 11:23 Wound Abcess - Aerobic & Anaerobic Swabs Gram Stain - Final 03/13/24 11:23 Wound Abcess - Aerobic & Anaerobic Swabs Wound Culture - Preliminary GPC Poss Enterococcus sp 03/13/24 11:24 Bone - Left Foot Gram Stain - Final 03/13/24 11:24 Bone - Left Foot Wound Culture - Preliminary Gram positive vance GPC Poss Enterococcus sp 03/13/24 11:23 Tissue - Ankle Gram Stain - Final 03/13/24 11:23 Tissue - Ankle Wound Culture - Preliminary GPC Poss Enterococcus sp Laboratory Results 03/14/24 16:56: POC Glucose 165 H 03/14/24 20:57: POC Glucose 171 H 03/15/24 06:31: WBC 5.5, RBC 4.61, Hgb 10.6 L, Hct 34.9 L, MCV 75.7 L, MCH 23.0 L, MCHC 30.4 L, RDW Std Deviation 42.3, RDW Coeff of Venita 15.5 H, Plt Count 242, MPV 9.5, Immature Gran % (Auto) 0.400, Neut % (Auto) 62.0, Lymph % (Auto) 22.9, [place] % (Auto) 8.5, Eos % (Auto) 5.8 H, Baso % (Auto) 0.4, Absolute Neuts (auto) 3.4, Absolute Lymphs (auto) 1.26, Nucleated RBC % 0, Sodium 142, Potassium 3.7, Chloride 111 H, Carbon Dioxide 27.0, Anion Gap 4 L, BUN 15, Creatinine 0.73, Estim Creat Clear Calc 161.10, Est GFR (MDRD) Af Amer 152, Est GFR (MDRD) Non-Af 125, BUN/Creatinine Ratio 20.5 H, Glucose 116 H, Calcium 8.5 03/15/24 07:00: POC Glucose 111 H 03/15/24 11:29: POC Glucose 155 H Charges/Coding Visit Charges Inpatient E&M: 42424 Subs Hosp L2
--- NOTE | 2024-03-15 15:44 | CASEMGMT ---
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 Pt will not be DCing today. [facility] and [facility] notified.
[2024-03-15 16:57] LABS: Bedside Glucose 136 mg/dL (74-106)
[2024-03-15 20:31] VITALS: BP 127/73; PULSE 82; RESP 18; TEMP 36.7; O2SAT 99
[2024-03-15] MEDS: Pravastatin 80 MG Tablet PO (21:47)
[2024-03-15 22:53] LABS: Bedside Glucose 121 mg/dL (74-106)
[2024-03-16 03:47] VITALS: BP 137/87; PULSE 66; RESP 18; TEMP 36.3; O2SAT 96
[2024-03-16] MEDS: Vancomycin HCl 1,250 MG in 0.9% Normal Saline (250mL Bag) 250 ML 167 MG IV (04:55)
[2024-03-16] MEDS: Meropenem 1 GM in 0.9% Normal Saline (100mL MB+) 100 ML IV (06:59)
[2024-03-16] MEDS: Acetaminophen 500 MG Tablet 1000 MG PO ×2 (06:59→14:02)
[2024-03-16 07:29] LABS: Bedside Glucose 120 mg/dL (74-106)
[2024-03-16 09:45] VITALS: BP 127/81; PULSE 80; RESP 15; TEMP 36.9; O2SAT 97
[2024-03-16] MEDS: Losartan Potassium 25 MG Tablet PO (10:04)
[2024-03-16] MEDS: SEMAGLUTIDE 14 MG TABLET PO (10:05)
[2024-03-16] MEDS: Heparin Injection (Vial) 5,000 UNIT/ML VIAL 5000 UNIT SC (10:05)
--- NOTE | 2024-03-16 11:34 | CASEMGMT ---
Addendum entered by Jamarcus Lay 03/16/24 15:00: Correction: the order is 1.5g q12h Addendum entered by Jamarcus Lay 03/16/24 14:58: The pt trough level came back high at 23.6. Dr. Vee notified and states he will change the Vanc Rx to 1.25gm q12h. The ID doctor states that he is not in [place] any longer and cannot provide a physical Rx. The ID doctor called [facility] and gave [facility] a verbal order for this. [facility] denies further needs. This RN CM also updated Tori at [facility]. Addendum entered by Jamarcus Lay 03/16/24 14:28: CS confirms that they will be delivering the medication tonight and that they have everything they need. [facility] updated and states they have everything they need. No further needs at this time. Addendum entered by Jamarcus Lay 03/16/24 14:21: Pt PICC placed. Documentation sent to [facility]. The pt RN and the studio operations engineer in charge state that the next dose due is at 1800. The plan is to infuse the medication starting at 1700 and then DC subsequently. Dr. Vee states that it is OK that the pt misses the 0200 dose tonight as the company will not be able to get to the pt home until early tomorrow morning. Pt states that he is OK with this plan and denies further questions or concerns. Addendum entered by Jamarcus Lay 03/16/24 12:33: Wound RN, Cassidy is on vacation. This RN CM consulted with Dr. Perkins, the pt RN, and Tori at [facility]. The pt dressing change was done today and the order for the dressing changes will be 2x/ week and PRN. The pt RN plans to send some extra wound dressing supplies as well. ATB Rx sent to [facility] via [employer] Addendum entered by Jamarcus Lay 03/16/24 12:21: ID signs Rx for PICC and IV ATB. Rx placed in pt chart. Per the pt RN, PICC is scheduled for 1300. IV ATB Rx sent to [facility] at this time. TC to [facility], no answer. VM left. At this time, the plan will be for the pt to get the PICC and a Vanc infusion here and then DC home subsequently. Will follow. Original Note: 0853: Dr. Vee notified that the cxs are back. 1134: BUDDY CM to pt room at this time to discuss DC planning. Dr. Perkins at bedside. The Food Service Manager states that the plan will be to DC the pt today, pending ID consult. The pt will most likely require a PICC and home IV ATBs. The pt will also require wound care. WC and [facility] are aware. The pt states that one of his parents will be at home to receive the IV medications. Pt states that his other parent will pick him up from the hospital once he is medically ready. At this time, we are waiting on ID to provide PICC order as well as ATB Rx. WC.
--- NOTE | 2024-03-16 11:39 | PN_ITS ---
Subjective Subjective No changes overnight. Denies constitutional symptoms. Denies pain. No issues with voiding urine passing gas. Objective Data Objective Data Vital Signs: Vital Signs Temp Pulse Resp BP Pulse Ox O2 Del Method O2 Flow Rate 98.4 F 80 15 127/81 H 97 Room Air 2 03/16/24 09:45 03/16/24 09:45 03/16/24 09:45 03/16/24 09:45 03/16/24 09:45 03/16/24 09:45 03/13/24 12:00 Oxygen Flow Rate (L/min) 2 Oxygen Delivery Method Room Air Weight: 104.326 kg Body Mass Index (BMI) 33.0 Intake & Output: Intake and Output for Last 24 Hours 03/14/24 03/15/24 03/16/24 23:59 23:59 23:59 Intake Total 1485 / 1485 1585 / 1585 1095 / 1095 Output Total 1900 / 1900 900 / 900 1600 / 1600 Balance -415 / -415 685 / 685 -505 / -505 Lab / Micro Data 03/15/24 06:31 03/15/24 06:31 Labs: Laboratory Results - last 24 hr 03/15/24 11:29: POC Glucose 155 H 03/15/24 16:39: POC Glucose 136 H 03/15/24 21:46: POC Glucose 121 H 03/16/24 06:59: POC Glucose 120 H Micro: Microbiology 03/13/24 11:23 Wound Abcess - Aerobic & Anaerobic Swabs Gram Stain - Final 03/13/24 11:23 Wound Abcess - Aerobic & Anaerobic Swabs Wound Culture - Final Enterococcus faecalis 03/13/24 11:23 Wound Abcess - Aerobic & Anaerobic Swabs Anaerobic Culture - Preliminary No growth in 48 hours. 03/13/24 11:24 Bone - Left Foot Gram Stain - Final 03/13/24 11:24 Bone - Left Foot Wound Culture - Preliminary Corynebacterium striatum GPC Poss Enterococcus sp 03/13/24 11:24 Bone - Left Foot Anaerobic Culture - Preliminary Checking for anaerobes, further studies to follow. 03/13/24 11:23 Tissue - Ankle Gram Stain - Final 03/13/24 11:23 Tissue - Ankle Wound Culture - Final Enterococcus faecalis 03/13/24 11:23 Tissue - Ankle Anaerobic Culture - Preliminary Checking for anaerobes, further studies to follow. Physical Exam Narrative neurovascular status unchanged lateral left ankle incision at site of abscess well approximated with intact vessel loops. intact medial leg, posterior heel and plantar heel incisions. intact ringed external fixator with intact pin sites Assessment & Plan Assessment/Plan (1) Osteomyelitis of ankle, left, acute: PLAN: Exam performed VSS ID on board; planning PICC IV antibiotics for 6 weeks pending final cultures. Possible Enterococcus species growing in bone and soft tissue. 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
[2024-03-16 12:08] LABS: Bedside Glucose 121 mg/dL (74-106)
--- NOTE | 2024-03-16 12:31 | PCM.DC.SUM ---
Providers Date of Admission: 03/13/24 Primary Care Physician: Dr. Dom Villagomez, Consultations 03/12/24 17:34 Consult: Hospitalist Routine Consulting Provider: Luke Garnett Reason for Consult: medical management/surgical clearance EMERGENT Consult: No MD Notified: Yes Date Notified: 03/12/24 Time Notified: 17:34 Method of Notification: Verbal Consult: Infectious Disease Routine Consulting Provider: Yoan Vee Reason for Consult: PICC/ABX recommendations EMERGENT Consult: No Notified: Yes Date Notified: 03/12/24 Time Notified: 18:19 Method of Notification: Text Reason For Visit: LEFT ANKLE OSTEOMYELITIS Diagnosis Discharge Diagnosis (1) Osteomyelitis of ankle, left, acute: Status: Acute Code(s): M86.172 - Other acute osteomyelitis, left ankle and foot Plan: Exam performed VSS ID on board; planning PICC IV antibiotics for 6 weeks pending final cultures. Possible Enterococcus species growing in bone and soft tissue. snf plan is for a staged procedure Stage I involving infection clearance and stage 2 including definitive stabilization of ankle pending infection clearance in 6-8 weeks IM on board patient weightbearing as tolerated with walker recommend [facility] upon DC Medications at Discharge Home Medications multivitamin 1 tab PO DAILY SUPPLEMENT 11/24/21 losartan 25 mg tablet 25 mg PO DAILY BLOOD PRESSURE 09/15/22 semaglutide 14 mg tablet (Rybelsus) 14 mg PO DAILY DIABETES 07/06/23 ascorbic acid (vitamin C) 1,000 mg tablet,extended release (C Complex) 1,000 mg PO DAILY SUPPLEMENT 08/30/23 omega 3-wvq-gxp-fish oil 300 mg-1,000 mg capsule (Fish Oil) 2 cap PO DAILY SUPPLEMENT 08/30/23 pravastatin 80 mg tablet 80 mg PO QHS CHOLESTEROL 08/30/23 vancomycin 1,000 mg intravenous injection 1,250 mg IV Q8H 38 days #114 ea 03/16/24 Hospital Course Summary of Care Provided Hospital Course: patient admitted with an acute abscess and infected hardware to left lateral ankle. Hardware removal, bone debridement, application of external fixation performed on left. ID consulted - patient will get 6 weeks IV vancomycin per PICC line. will plan for home health care dressing changes. Upon infection clearance, will plan for repeat debridement and application of a cancellous chips filled truss to replace talus and allow for TTC fusion. Physical Exam Narrative neurovascular status unchanged lateral left ankle incision at site of abscess well approximated with intact vessel loops. intact medial leg, posterior heel and plantar heel incisions. intact ringed external fixator with intact pin sites Const alert and oriented x3 Weight / BMI Weight Weight: 104.326 kg Body Mass Index (BMI) 33.0 ABG / Lab / Microbiology Data 03/15/24 06:31 03/15/24 06:31 Laboratory: Laboratory Results - last 24 hr 03/15/24 16:39: POC Glucose 136 H 03/15/24 21:46: POC Glucose 121 H 03/16/24 06:59: POC Glucose 120 H 03/16/24 11:48: POC Glucose 121 H Microbiology: Microbiology 03/13/24 11:23 Tissue - Ankle Gram Stain - Final 03/13/24 11:23 Tissue - Ankle Wound Culture - Final Enterococcus faecalis 03/13/24 11:23 Tissue - Ankle Anaerobic Culture - Final No anaerobic bacteria isolated. 03/13/24 11:24 Bone - Left Foot Gram Stain - Final 03/13/24 11:24 Bone - Left Foot Wound Culture - Preliminary Corynebacterium striatum GPC Poss Enterococcus sp 03/13/24 11:24 Bone - Left Foot Anaerobic Culture - Final No anaerobic bacteria isolated. 03/13/24 11:23 Wound Abcess - Aerobic & Anaerobic Swabs Gram Stain - Final 03/13/24 11:23 Wound Abcess - Aerobic & Anaerobic Swabs Wound Culture - Final Enterococcus faecalis 03/13/24 11:23 Wound Abcess - Aerobic & Anaerobic Swabs Anaerobic Culture - Preliminary No growth in 48 hours. Meaningful Use Info Meaningful Use Meaningful Use Diagnoses (Choose all that apply): None applicable Ischemic Stroke Statin Dosing Therapy Reference: STATIN DOSE THERAPY REFERENCE: * Patients > 75 years receive moderate or high dose statin therapy. * Patients 75 years or YOUNGER should receive HIGH intensity statin dose unless contraindicated. You will be required to document reason for non-treatment if statin daily dose does not meet guidelines. HIGH DOSE STATIN THERAPY DAILY Atorvastatin > than or = to 40 mg Rosuvastatin > than or = to 20 mg Amlodipine + Atorvastatin > than or = to 2.5/40 mg Ezetimibe + Simvastatin 10/80 mg Simvastatin 80mg Discharge Plan Admission Admit Date/Time: 03/13/24 19:42 Attending Provider: Jordi Perkins Primary Care Provider: Dom Villagomez Consulting Providers: Nash Zuñiga; Luke Garnett; Yoan Vee Instructions Patient Instructions: Post-Op Tips: Foot Additional Instructions / Restrictions: Change dressings 2-3 times per week to left lower extremity. Remove packing from left lateral ankle and replaced with quarter inch iodoform packing. Dressed all incisional and pin sites with Betadine paint followed by Adaptic. Dress all incisions and pin sites with 4 x 4's and Kerlix. patient can weightbear assisted by walker for transfer purposes. Discharge Orders/Prescriptions Prescriptions: New vancomycin 1,000 mg Recon Soln 1,250 mg IV Q8H 38 Days Qty: 114 0RF Rx Instructions: stop date 04/24/24. Dx: ankle osteo. Weekly bmp, cbc, vanc trough, and ESR. Fax to [phone] Routine picc care per protocol Continued multivitamin Tablet 1 tab PO DAILY losartan 25 mg Tablet 25 mg PO DAILY Rybelsus 14 mg tablet 14 mg PO DAILY pravastatin 80 mg tablet 80 mg PO QHS omega 6-ijd-glt-fish oil [Fish Oil] 300-1,000 mg capsule 2 cap PO DAILY C Complex 1,000 mg tablet extended release 1,000 mg PO DAILY Discontinued levofloxacin 500 mg tablet 500 mg PO DAILY linezolid 600 mg tablet 600 mg PO BID Qty: 28 0RF cephalexin 750 mg capsule 750 mg PO BID Qty: 20 0RF Referrals / Follow Up: Jordi Perkins DPM [Med Staff - Active Staff] - Dom Villagomez DO [Primary Care Provider] - Disposition Disposition (needs filled in before D/C Order can be placed): Home Health Service
--- NOTE | 2024-03-16 12:54 | PCM.PN.ID ---
Physical Exam Narrative Feeling well, no fever, no n/v/d. Const alert and no apparent distress General Appearance: cooperative Resp normal air movement and clear to auscultation bilaterally Cardio regular rate and regular rhythm GI soft to palpation, non-tender and non-distended Skin no rashes or lesions noted ID ID: Route of nutrition/ use of supplements: [] Nutritional Intake: [] IV Site: [] Hernandes Catheter: [] Assessment & Plan Assessment/Plan (1) Charcot's joint, left ankle and foot: (2) Infected hardware in left leg: PLAN: Recent wound cx with enterococcus. Taken to OR 03/13/[address] Perkins for I&D with external fixator placed. Ok for home with picc and 6 weeks iv vanc, stop date 04/24/24 with weekly labs and ID followup in 2 weeks. Will follow
[2024-03-16] MEDS: Vancomycin Trough/Random Due 1 LAB MC (13:01)
[2024-03-16 13:12] LABS: Vancomycin, Trough Level 23.6 ug/mL (5.0-15.0)
--- NOTE | 2024-03-16 13:16 | PN.HOSP_ITS ---
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 (03/13/24) Non-pressure chronic ulcer of other part of left foot with necrosis of bone (03/13/24) Charcot's joint, left ankle and foot (03/13/24) Other acute osteomyelitis, left ankle and foot (03/13/24) Infection and inflammatory reaction due to other internal orthopedic prosthetic devices, implants and grafts, initial encounter (03/13/24) Objective Data Objective Data Vital Signs: Vital Signs Temp Pulse Resp BP Pulse Ox O2 Del Method O2 Flow Rate 98.4 F 80 15 127/81 H 97 Room Air 2 03/16/24 09:45 03/16/24 09:45 03/16/24 09:45 03/16/24 09:45 03/16/24 09:45 03/16/24 09:45 03/13/24 12:00 Oxygen Flow Rate (L/min) 2 Oxygen Delivery Method Room Air Weight: 229 lb 15.991 oz Body Mass Index (BMI) 33.0 Intake & Output: Intake and Output for Last 24 Hours 03/14/24 03/15/24 03/16/24 23:59 23:59 23:59 Intake Total 1485 / 1485 1585 / 1585 1215 / 1215 Output Total 1900 / 1900 900 / 900 1600 / 1600 Balance -415 / -415 685 / 685 -385 / -385 Lab / Micro Data 03/15/24 06:31 03/15/24 06:31 Labs: Laboratory Results - last 24 hr 03/15/24 16:39: POC Glucose 136 H 03/15/24 21:46: POC Glucose 121 H 03/16/24 06:59: POC Glucose 120 H 03/16/24 11:48: POC Glucose 121 H 03/16/24 12:25: Vancomycin Trough 23.6 H Micro: Microbiology 03/13/24 11:23 Tissue - Ankle Gram Stain - Final 03/13/24 11:23 Tissue - Ankle Wound Culture - Final Enterococcus faecalis 03/13/24 11:23 Tissue - Ankle Anaerobic Culture - Final No anaerobic bacteria isolated. 03/13/24 11:24 Bone - Left Foot Gram Stain - Final 03/13/24 11:24 Bone - Left Foot Wound Culture - Preliminary Corynebacterium striatum GPC Poss Enterococcus sp 03/13/24 11:24 Bone - Left Foot Anaerobic Culture - Final No anaerobic bacteria isolated. 03/13/24 11:23 Wound Abcess - Aerobic & Anaerobic Swabs Gram Stain - Final 03/13/24 11:23 Wound Abcess - Aerobic & Anaerobic Swabs Wound Culture - Final Enterococcus faecalis 03/13/24 11:23 Wound Abcess - Aerobic & Anaerobic Swabs Anaerobic Culture - Preliminary No growth in 48 hours. Physical Exam Narrative Seen and examined. Patient has history of diabetes mellitus type 2 and is stated sugars are controlled. Glucose is relatively controlled. Bone tissue culture growing GPC Enterococcus. PICC line is ordered for IV antibiotics discharge Physical exam General: Alert, Oriented x3, Cooperative HEENT: Atraumatic, PERRLA, EOMI, Normocephalic Oral: No Gingival or Mucosal Lesions/ Ulcerations Neck: Supple, No JVD, Negative Carotid Bruits Chest wall/Lungs: Air entry diminished in bilateral lung bases. No crepitation/rhonchi Cardiovascular: Regular rate, Regular Rhythm, Normal S1, Normal S2, No M/G/R Abdomen: Bowel Sounds Present, Soft, Non Tender, Non-Distended : No dysuria. No renal angle tenderness. No suprapubic tenderness. Extremities: No edema, Capillary Refill Less than 3 Seconds Skin: Left foot hardware was removed. Surgical dressing present. Surgical dressing is dry. Musculoskeletal: No Tenderness to Palpation of Joints or Extremities Neurological: Cranial nerves II-XII grossly intact, DTR 2+/4. No acute focal neurological deficit. Psych/Mental Status: Normal Affect, Appropriate. Assessment & Plan Assessment/Plan (1) Infected hardware in left leg: PLAN: Plan 1. Infected hardware left ankle with chronic osteomyelitis complicated with abscess that required incision and drainage in August 2023 due to Enterococcus faecalis: The patient is admitted under podiatry service. Patient had removal of intramedullary nail left ankle, incision and drainage of abscess down to left lateral ankle bone level, delayed primary closure and application of external fixator on 03/13/2024. Patient stated he had left ankle fusion in July 2023 after that he had incision and drainage in September 01, 2023 and then 6 weeks of ertapenem. Patient was still getting intermittent purulent discharge with abscess/sinus formation with wound culture positive Enterococcus faecalis same as culture from December 30. ID consult reviewed. On vancomycin and meropenem for broad coverage. 03/14: Gram stain shows preliminary gram-positive organism from bone. Patient on vancomycin and meropenem. 03/15: Wound culture, bone and tissue culture all growing GPC possible Enterococcus species, preliminary. Full culture pending. Plan for PICC line and 6 weeks IV antibiotic tomorrow. 03/16: Recent wound culture showing Enterococcus. PICC line and 6 weeks of IV vancomycin, stop date 04/24/2024. Weekly labs and ID follow-up in 2 weeks. Patient discharged home . 2. Type 2 diabetes with diabetic neuropathy-patient's home medications, Accu- Chek before meals and at bedtime with Humalog sliding scale coverage and hypoglycemia protocol. On semaglutide 14 mg p.o. daily. 03/15: Glucoses controlled. 03/16: Glucoses relatively well-controlled around 120 to 136 mg/dL. Follow-up PCP. 3. Hyperlipidemia-patient is on pravastatin, continued 4. Essential hypertension-patient is on losartan- continued 5. Obesity grade 1: BMI 33.0 kg/m? Laboratory Results 03/15/24 16:39: POC Glucose 136 H 03/15/24 21:46: POC Glucose 121 H 03/16/24 06:59: POC Glucose 120 H 03/16/24 11:48: POC Glucose 121 H 03/16/24 12:25: Vancomycin Trough 23.6 H Microbiology Past 72 Hours 03/13/24 11:23 Wound Abcess - Aerobic & Anaerobic Swabs Gram Stain - Final 03/13/24 11:23 Wound Abcess - Aerobic & Anaerobic Swabs Wound Culture - Preliminary GPC Poss Enterococcus sp 03/13/24 11:24 Bone - Left Foot Gram Stain - Final 03/13/24 11:24 Bone - Left Foot Wound Culture - Preliminary Gram positive vance GPC Poss Enterococcus sp 03/13/24 11:23 Tissue - Ankle Gram Stain - Final 03/13/24 11:23 Tissue - Ankle Wound Culture - Preliminary GPC Poss Enterococcus sp Laboratory Results 03/14/24 16:56: POC Glucose 165 H 03/14/24 20:57: POC Glucose 171 H 03/15/24 06:31: WBC 5.5, RBC 4.61, Hgb 10.6 L, Hct 34.9 L, MCV 75.7 L, MCH 23.0 L, MCHC 30.4 L, RDW Std Deviation 42.3, RDW Coeff of Venita 15.5 H, Plt Count 242, MPV 9.5, Immature Gran % (Auto) 0.400, Neut % (Auto) 62.0, Lymph % (Auto) 22.9, [place] % (Auto) 8.5, Eos % (Auto) 5.8 H, Baso % (Auto) 0.4, Absolute Neuts (auto) 3.4, Absolute Lymphs (auto) 1.26, Nucleated RBC % 0, Sodium 142, Potassium 3.7, Chloride 111 H, Carbon Dioxide 27.0, Anion Gap 4 L, BUN 15, Creatinine 0.73, Estim Creat Clear Calc 161.10, Est GFR (MDRD) Af Amer 152, Est GFR (MDRD) Non-Af 125, BUN/Creatinine Ratio 20.5 H, Glucose 116 H, Calcium 8.5 03/15/24 07:00: POC Glucose 111 H 03/15/24 11:29: POC Glucose 155 H Charges/Coding Visit Charges Inpatient E&M: 47161 Subs Hosp L2
--- NOTE | 2024-03-16 13:33 | PCM.RX.CS ---
Consult Antibiotic Management Pharmacy has been consulted to manage selected antibiotic: Vancomycin Type of Intervention Type of Consult: Follow-up Suspected Infection Suspected Infection: Osteomyelitis Labs Labs: Sodium 142 mmol/L (136-145) 03/15/24 06:31 Potassium 3.7 mmol/L (3.5-5.1) 03/15/24 06:31 Chloride 111 mmol/L (98-107) H 03/15/24 06:31 Carbon Dioxide 27.0 mmol/L (21.0-32.0) 03/15/24 06:31 Anion Gap 4 (5-15) L 03/15/24 06:31 BUN 15 mg/dL (7-18) 03/15/24 06:31 Creatinine 0.73 mg/dL (0.70-1.30) 03/15/24 06:31 Est GFR (MDRD) Af Amer 152 mL/min (>60) 03/15/24 06:31 Est GFR (MDRD) Non-Af 125 mL/min (>60) 03/15/24 06:31 BUN/Creatinine Ratio 20.5 RATIO (10-20) H 03/15/24 06:31 Glucose 116 mg/dL (74-106) H 03/15/24 06:31 Vancomycin Trough 23.6 ug/mL (5.0-15.0) H 03/16/24 12:25 Microbiology Microbiology: Microbiology 03/13/24 11:23 Tissue - Ankle Gram Stain - Final 03/13/24 11:23 Tissue - Ankle Wound Culture - Final Enterococcus faecalis 03/13/24 11:23 Tissue - Ankle Anaerobic Culture - Final No anaerobic bacteria isolated. 03/13/24 11:24 Bone - Left Foot Gram Stain - Final 03/13/24 11:24 Bone - Left Foot Wound Culture - Preliminary Corynebacterium striatum GPC Poss Enterococcus sp 03/13/24 11:24 Bone - Left Foot Anaerobic Culture - Final No anaerobic bacteria isolated. 03/13/24 11:23 Wound Abcess - Aerobic & Anaerobic Swabs Gram Stain - Final 03/13/24 11:23 Wound Abcess - Aerobic & Anaerobic Swabs Wound Culture - Final Enterococcus faecalis 03/13/24 11:23 Wound Abcess - Aerobic & Anaerobic Swabs Anaerobic Culture - Preliminary No growth in 48 hours. Goal Trough Goal Trough: 15-20 mcg/mL Pharmacy Plan for Drug Dosing Pharmacy Plan for Drug Dosing: VANCOMYCIN LEVEL RECEIVED Current Vancomycin Dose: 1250mg Q8H Number of Doses Received: 1250mg x8 Vancomycin Level: 23.6 Hours Since Last Dose: 7.5 Renal Function: sCr 0.73 (03/15/24) Renal Function Trend: stable Vancomycin Plan/Comments: Decrease Vancomycin dosing regimen to 1000mg Q8H to start at 1800 03/16/24 to allow more time to clear drug and obtain therapeutic level. Pending Level: Vancomycin trough @ 17:30 03/17/24 Pharmacy Service will continue to monitor and adjust dosing as required. Follow-Up Labs Follow-Up Labs: Trough: Vancomycin (17:30 03/17/24)
--- NOTE | 2024-03-16 13:58 | PCM.OP.PRO ---
Procedure Report Date of Procedure: 03/16/24 Assessment & Plan Assessment/Plan (1) Infected hardware in left leg: QUALIFIERS: Encounter type: initial encounter Qualified Code(s): T84.7XXA - Infection and inflammatory reaction due to other internal orthopedic prosthetic devices, implants and grafts, initial encounter Procedures Radiology Radiology Access Procedures: PICC Procedure Time Out Time Out Informed consent given: Yes Consent signed: Yes Time out checklist: patient, procedure, site marked/identified, positioning of patient, supplies available and allergies confirmed Time out staff in room: Yes Time out verified: Yes Time out date: 03/16/24 Time out time: 13:00 PICC Line Consent Screening tool completed:: Yes Consent obtained:: Yes Consent given by (patient or responsible republican):: PATIENT Line successful (if no, document why in comments):: Yes 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 Date of Insertion: 03/16/24 Ok to use: Yes PICC Lot #: [id number] PICC Reference #: [id number] Microintroducer Used: Yes (in kit) Ultrasound/Equipment Used: Probe Cover Kit Trimmed Length (cm): 50 Insertion Length (cm): 50 Exposed Length (cm): 0 Tip Placement: Caval Atrial Junction Placement Confirmation: 3CG Insertion Vein: Left Basilic Insertion Attempts: 1 Local Anesthesia Used: Lidocaine 1% (in kit) Dressing Applied: Statlock and Tegaderm CHG Arm Measurement above site (in cm): 33 Patient Tolerated Procedure: Well Threading Difficulties: No Comments Comment: Patient identity was verified with two patient identifiers. Informed consent was obtained and time-out was completed. Hands were sanitized. The patient was positioned supine with left arm at 90 degrees. The patient's upper arm vasculature was assessed using ultrasound. Patency of the left basilic vein was confirmed and the vein was externally marked. An external measurement was obtained of 50 cm. External leads were applied to the patient's right upper chest and laterally and inferior of the umbilicus on the mid axillary line. Cap, mask, and prep gloves were donned. The underdrape was placed under the patient's arm. The site was prepped with chlorhexidine, and tourniquet was loosely applied. Prep gloves were discarded, and hands were sanitized. The sterile kit was opened with additional supplies dropped in. Sterile gown and gloves were donned, and the patient was draped. The sterile kit was assembled with needle, introducer, needless connector, and catheter lumen flushed with sterile normal saline. The marked site of insertion was anesthetized with 1% lidocaine from the kit. Patient tolerated well. The left basilic vein was then accessed using ultrasound guidance and guidewire was inserted to safety len. The tourniquet was released. The access needle was removed while securing the guidewire in place. The site was again anesthetized with 1% lidocaine, prior to insertion of introducer sheath and dilator. Patient tolerated the insertion well. The catheter was trimmed to a length of 50 cm. Using 3C guidance, the catheter was then inserted through the introducer sheath, slowly. There was no resistance on insertion. The catheter followed the expected course of the vessel using 3CG tracking. The introducer sheath was retracted and peeled away, incrementally, while keeping the catheter secured. Maximal p-wave, without deflection, confirming placement in the cavoatrial junction, was obtained at an insertion length of 50 cm, leaving 0 cm external. The stylet was removed. A flushed needleless connector was attached to the lumen. Aspiration of the lumen was performed to remove any air and confirm blood return. Blood return was verified and the lumen was flushed with 10 ml of sterile normal saline in a pulsatile fashion. The lumen was clamped with the last pulsed flush. Total sterile flushes used for the insertion was 5 10 ml syringes, 1 from the kit. Finally, the insertion site was cleaned with chlorhexidine, and the catheter was secured using a StatLock. The site was covered with a Tegaderm CHG Dressing and disinfecting caps were applied. Baseline arm circumference was obtained at the insertion site and measured 33 cm. The patient was provided with a patient education handout on PICC line care of infection prevention, heavy lifting restriction, maintaining mobility, and watching for any signs of infection. The charge nurse is aware that the PICC line is ready for use.
[2024-03-16 14:11] VITALS: BP 129/92; PULSE 83; RESP 16; TEMP 36.4; O2SAT 100
[2024-03-16] MEDS: Vancomycin IV 1,000 MG/200 ML BAG 200 MG IV (16:56)
[2024-03-16 17:14] LABS: Bedside Glucose 122 mg/dL (74-106)
== END 2024-03-16 18:02 | disposition home health service (06) | DRG 493 ==
PROVIDERS: Anesthesiology; Internal Medicine; Internal Medicine Infectious Disease; Admitting Provider Podiatrist; PCP Student in an Organized Health Care Education/Training Program; Referring Provider Podiatrist; Visit Provider Podiatrist
PROC: 0S9G0ZZ Drainage of Left Ankle Joint, Open Approach (ICD-10-PCS; principal; 2024-03-13 07:10)
DX: T84.7XXA Infection and inflammatory reaction due to other internal orthopedic prosthetic devices, implants and grafts, initial encounter (principal); T81.49XA Infection following a procedure, other surgical site, initial encounter; M86.172 Other acute osteomyelitis, left ankle and foot; L02.416 Cutaneous abscess of left lower limb; L97.324 Non-pressure chronic ulcer of left ankle with necrosis of bone; E11.42 Type 2 diabetes mellitus with diabetic polyneuropathy; B95.2 Enterococcus as the cause of diseases classified elsewhere; E11.621 Type 2 diabetes mellitus with foot ulcer; I10 Essential (primary) hypertension; E66.9 Obesity, unspecified; T84.69XA Infection and inflammatory reaction due to internal fixation device of other site, initial encounter; E11.622 Type 2 diabetes mellitus with other skin ulcer; E78.5 Hyperlipidemia, unspecified; E11.69 Type 2 diabetes mellitus with other specified complication; Z68.33 Body mass index [BMI] 33.0-33.9, adult
CPT/HCPCS: 36415; 36569; 71046; 73600; 76000; 80048; 80053; 80202; 82962; 83036; 85025; 87015; 87070; 87075; 87077; 87102; 87116; 87176; 87186; 87205; 87206; 88305; 88307; 88311; 93005; 94668; 97161; 97802; C1713; J2185; J7040; J7050; J7120; A4216; J2405

== ENCOUNTER 2024-03-21 12:31 | Outpatient (RCR) | payer BC, SELFPAY ==
[2024-03-22 13:44] LABS: Anion Gap 7 (5-15); BUN 17 mg/dL (7-18); Calcium,Total 9.4 mg/dL (8.5-10.1); Chloride 103 mmol/L (98-107); Creatinine, Serum 0.74 mg/dL (0.70-1.30); EST Glomerular Filtration Rate 124 mL/min (>60); Est Glom Filt Rate - Afr Amer 150 mL/min (>60); Glucose 100 mg/dL (74-106); Potassium 4.2 mmol/L (3.5-5.1); Sodium Level 138 mmol/L (136-145)
[2024-03-22 13:45] LABS: Vancomycin, Trough Level 8.5 ug/mL (5.0-15.0)
[2024-03-22 14:15] LABS: Hematocrit 38.9 % (40-54); Hemoglobin 11.7 g/dL (13.0-16.5); Mean Corp Hgb Conc 30.1 g/dL (32-36); Mean Corpuscular Hgb 22.9 pg (27.0-32.0); Mean Corpuscular Volume 76.3 fL (80-94); Mean Platelet Vol. 9.8 fl (6.2-12.0); Platelet Count 287 K/mm3 (150-450); RBC Distribution Width CV 15.3 % (11.6-14.6); RBC Distribution Width SD 41.7 fl (35.1-43.9); White Blood Count 5.6 K/mm3 (4.4-11.0)
[2024-03-22 14:21] LABS: Erythrocyte Sedimentation Rate 42 mm/hr (0-20)
== END 2024-03-21 18:00 | disposition home or self-care (01) ==
LOC: HHLAB 12:31
PROVIDERS: PCP Student in an Organized Health Care Education/Training Program; Referring Provider Internal Medicine Infectious Disease; Visit Provider Internal Medicine Infectious Disease
DX: M14.672 Charcot's joint, left ankle and foot (principal)
CPT/HCPCS: 80048; 80202; 85027; 85652

== ENCOUNTER 2024-03-29 10:23 | Outpatient (RCR) | payer BC, SELFPAY ==
[2024-03-29 10:56] LABS: Erythrocyte Sedimentation Rate 29 mm/hr (0-20)
[2024-03-29 10:58] LABS: Hematocrit 39.2 % (40-54); Hemoglobin 12.1 g/dL (13.0-16.5); Mean Corp Hgb Conc 30.9 g/dL (32-36); Mean Corpuscular Hgb 23.6 pg (27.0-32.0); Mean Corpuscular Volume 76.6 fL (80-94); Mean Platelet Vol. 9.8 fl (6.2-12.0); Platelet Count 278 K/mm3 (150-450); RBC Distribution Width CV 16.1 % (11.6-14.6); RBC Distribution Width SD 43.3 fl (35.1-43.9); Red Blood Count 5.12 M/mm3 (4.6-6.2); White Blood Count 5.9 K/mm3 (4.4-11.0)
[2024-03-29 11:05] LABS: Vancomycin, Trough Level 13.9 ug/mL (5.0-15.0)
[2024-03-29 11:29] LABS: Anion Gap 8 (5-15); BUN 16 mg/dL (7-18); BUN/Creat Ratio 19.4 RATIO (10-20); Calcium,Total 9.2 mg/dL (8.5-10.1); Chloride 105 mmol/L (98-107); Creatinine, Serum 0.82 mg/dL (0.70-1.30); EST Glomerular Filtration Rate 109 mL/min (>60); Est Glom Filt Rate - Afr Amer 132 mL/min (>60); Glucose 114 mg/dL (74-106); Potassium 4.1 mmol/L (3.5-5.1); Sodium Level 138 mmol/L (136-145)
[2024-04-05 12:50] LABS: Anion Gap 6 (5-15); BUN 18 mg/dL (7-18); BUN/Creat Ratio 21.7 RATIO (10-20); Calcium,Total 9.3 mg/dL (8.5-10.1); Chloride 105 mmol/L (98-107); Creatinine, Serum 0.83 mg/dL (0.70-1.30); EST Glomerular Filtration Rate 108 mL/min (>60); Est Glom Filt Rate - Afr Amer 131 mL/min (>60); Glucose 89 mg/dL (74-106); Potassium 3.9 mmol/L (3.5-5.1); Sodium Level 139 mmol/L (136-145)
[2024-04-05 12:53] LABS: Hematocrit 40.9 % (40-54); Hemoglobin 12.2 g/dL (13.0-16.5); Mean Corp Hgb Conc 29.8 g/dL (32-36); Mean Corpuscular Hgb 23.1 pg (27.0-32.0); Mean Corpuscular Volume 77.5 fL (80-94); Mean Platelet Vol. 10.2 fl (6.2-12.0); Platelet Count 251 K/mm3 (150-450); RBC Distribution Width CV 16.7 % (11.6-14.6); RBC Distribution Width SD 45.5 fl (35.1-43.9); Red Blood Count 5.28 M/mm3 (4.6-6.2); White Blood Count 4.7 K/mm3 (4.4-11.0)
[2024-04-05 12:55] LABS: Erythrocyte Sedimentation Rate 19 mm/hr (0-20)
[2024-04-05 13:00] LABS: Vancomycin, Trough Level 14.2 ug/mL (5.0-15.0)
== END 2024-03-29 18:00 | disposition home or self-care (01) ==
LOC: HHLAB 10:23
PROVIDERS: PCP Student in an Organized Health Care Education/Training Program; Referring Provider Internal Medicine Infectious Disease; Visit Provider Internal Medicine Infectious Disease
DX: M14.672 Charcot's joint, left ankle and foot
CPT/HCPCS: 80048; 80202; 85027; 85652

== ENCOUNTER → 2024-04-02 | Outpatient (CLI) | payer BC, SELFPAY ==
--- NOTE | 2024-04-02 19:06 | CT_ITS ---
CT LEFT LOWER EXTREMITY WITH 3-D IMAGING CLINICAL INDICATION: WOUND TECHNIQUE: Axial CT images of the left lower extremity was performed without IV contrast material. Coronal and sagittal reformats were provided. The protocol utilizes one or more of the following dose reduction techniques: automated exposure control, adjustment of mA and/or kV according to patient size, and/or use of iterative reconstruction technique. RADIATION DOSAGE (If Supplied By Facility): CTDIvol = ( 15.37 ) mGy, DLP = ( 651.14 ) mGycm COMPARISON: Left foot radiographs dated 12/06/2023. FINDINGS: Bones: There are external fixation devices around the ankle and foot with fixation pins through the tibia, calcaneus, and metatarsals. There is an intramedullary vance extending through the tibia, talus, and calcaneus. Again seen is extensive neuropathic arthropathy in the hindfoot/midfoot. There are old healed fractures of the second through fifth metatarsals. Soft Tissues: There are small bubbles of gas in the talus adjacent to the intramedullary vance (axial series 3 images 91-94). There is generalized soft tissue swelling around the ankle and foot. The deep soft tissue structures are unremarkable. CT/Extremity Lower without Contra IMPRESSION: External fixation hardware around the ankle and foot. Intramedullary vance extending through the tibia, talus, and calcaneus, with small bubbles of gas in the talus adjacent to the intramedullary vance (which could be due to recent surgical instrumentation or developing gas-forming infection). 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 Old healed fractures of the second through fifth metatarsals. Electronically Signed: Fadi Baker MD at 14:56 EDT ,
== END | disposition home or self-care (01) ==
LOC: CT 19:06
PROVIDERS: PCP Student in an Organized Health Care Education/Training Program; Referring Provider Podiatrist; Visit Provider Podiatrist
DX: M14.672 Charcot's joint, left ankle and foot (principal)
CPT/HCPCS: 73700

== ENCOUNTER 2024-04-03 09:30 | Outpatient (RCR) | payer BC, SELFPAY ==
[2024-03-08 00:52] VITALS: BP 145/76; PULSE 80; RESP 18; TEMP 35.7; BMI 33.5
[2024-03-09 08:47] VITALS: BP 126/78; PULSE 90; RESP 18; TEMP 36.2; BMI 33.5
[2024-03-20 09:06] VITALS: BP 132/79; PULSE 87; RESP 18; BMI 33.5
--- NOTE | 2024-03-20 10:07 | PN.PCM_ITS ---
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 Patient on IV antibiotics via PICC line vancomycin per Enterococcus faecalis positive bone cultures. Patient denies constitutional symptoms. Patient taking aspirin daily for DVT prophylaxis. No new complaints. Objective Data Objective Data Vital Signs: Vital Signs Temp Pulse Resp BP 97.1 F L 87 18 132/79 H 03/09/24 08:47 03/20/24 09:06 03/20/24 09:06 03/20/24 09:06 Weight: 108.862 kg Body Mass Index (BMI) 33.5 Physical Exam Narrative Neurovascular status unchanged. Full-thickness wound down to level of bone with intact vessel loop closure to left lateral ankle. Intact incision to plantar heel intact incision to medial leg and posterior calcaneus. No acute signs of infection to the sites. No evidence of residual purulence noted today. All pin sites appear clean and intact with no infection acutely. Intact external fixation device with the foot held in a rectus position noted to left lower extremity. 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/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 ) ) Arrival Mode Ambulatory Wheelchair Transfer Assistance None Accompanied by dad Patient Identification Verified (Name & Yes Yes ) Patient Requires Transmission-Based No Precautions Safety Precautions Fall Prevention Height and Weight Body Mass Index (BMI) 33.5 33.5 BMI Classification Obese Obese Vital Signs Temperature (97.8 F-99.1 F) 97.1 F L Temperature Source Temporal Pulse Rate (60-100) 90 87 Pulse Location Monitor Monitor Respiratory Rate (12-18) 18 18 Respiratory rate source Observation Observation Blood Pressure (90/60-120/80) 126/78 H 132/79 H Blood Pressure Mean (mm Hg) 94 96 Source Monitor Monitor Position Semi-Fowlers Sitting Blood Pressure Location Right Arm Right Arm History Since Last Visit- (Skip if this is Patient's initial visit) Left Footwear Regular Shoe Right Footwear Regular Shoe Pain Scale: 0-10 Numeric Is Patient Pain Free? Yes Yes WC - Nurse 1 - General Ulcer Measurement Start: 03/09/24 08:47 Freq: Status: Active Protocol: Activity Type Activity Date Activity User E-sign Co-sign Detail Recorded Client Recorded Date Recorded By Document 03/09/24 08:47 RB wound 03/09/24 08:50 RB 03/09/24 08:47 Wound Center Nurse 1 9. L medial ankle -Exudate Amt Medium -Exudate Type Serosanguineous 10. L lateral ankle -Exudate Amt Medium -Exudate Type Serosanguineous Lower Limb Edema Present Yes Left Calf (cm) 35 Left Ankle (cm) 27.2 WC - Nurse 2 - General Ulcer CM Notes Start: 03/09/24 08:47 Freq: Status: Active Protocol: Activity Type Activity Date Activity User E-sign Co-sign Detail Recorded Client Recorded Date Recorded By Document 03/20/24 09:35 JF 0000 03/20/24 09:39 JF 03/20/24 09:35 Wound Center Nurse 2 10. L lateral ankle -Correct Patient No -Correct Side, Site, Position No -Correct Procedure No -Procedure Performed No -Wound/Ulcer Outcome Not Healed Pain Scale: 0-10 Numeric Is Patient Pain Free? Yes - Nurse 3 - General Ulcer D/C NN Start: 03/09/24 08:47 Freq: Status: Active Protocol: Activity Type Activity Date Activity User E-sign Co-sign Detail Recorded Client Recorded Date Recorded By Document 03/09/24 08:47 RB wound 03/09/24 08:50 RB Edit Result 03/09/24 08:47 RB (1) wound 03/09/24 08:53 RB Document 03/20/24 09:52 KW gfj 03/20/24 09:53 KW (1) #11- L GR TOE - Ulcer Cleansing => betadine - Primary Dressing Applied => NonAdherent => Contact Layer - Primary Dressing Covered/Secured with => Dry Gauze,Secured => with Tape 9. L medial ankle - Ulcer Cleansing => betadine - Primary Dressing Applied => NonAdherent => Contact Layer - Primary Dressing Covered/Secured with => Dry Gauze & Roll => Gauze 10. L lateral ankle - Ulcer Cleansing => betadine - Primary Dressing Applied => NonAdherent => Contact Layer, => Optilok 6.5x10 - Primary Dressing Covered/Secured with => Dry Gauze & Roll => Gauze,Secured with => Tape - Optilok 6.5x10 => 1 03/09/24 03/20/24 08:47 09:52 Vital Signs Temperature (97.8 F-99.1 F) 97.1 F L Temperature Source Temporal Pulse Rate (60-100) 90 Pulse Location Monitor Respiratory Rate (12-18) 18 Respiratory rate source Observation Blood Pressure (90/60-120/80) 126/78 H Blood Pressure Mean (mm Hg) 94 Source Monitor Position Semi-Fowlers Blood Pressure Location Right Arm Pain Scale: 0-10 Numeric Is Patient Pain Free? Yes Yes Wound Care Center Nurse 3 #11- L GR TOE -Ulcer Cleansing betadine -Primary Dressing Applied NonAdherent Contact Layer -Primary Dressing Covered/Secured with Dry Gauze, Secured with Tape 9. L medial ankle -Ulcer Cleansing betadine -Primary Dressing Applied NonAdherent Contact Layer -Primary Dressing Covered/Secured with Dry Gauze & Roll Gauze 10. L lateral ankle -Ulcer Cleansing betadine Soap and Water -Primary Dressing Applied NonAdherent NonAdherent Contact Layer, Contact Layer Optilok 6.5x10 -Other Dressing betadine -Primary Dressing Covered/Secured with Dry Gauze & Dry Gauze & Roll Gauze, Roll Gauze, Secured with Secured with Tape Tape -Optilok 6.5x10 1 Left -Multi-Layered Wrap Application Multi-Layer Comp - Left ($) Treatment Response Procedure Tolerated Well WC - Visit Discharge Discharge Condition Stable Stable Ambulatory Status Ambulatory,Cane Wheelchair Transportation Private Auto Private Auto Medication Reconcilliation completed & No No provided to patient/care provider Clinical Summary of Care Provided Yes Yes Assessment/Plan Assessment/Plan (1[facility] CODE(S): M14.672 - Charcot's joint, left ankle and foot PLAN: Exam performed. CT scan ordered for stage II surgical planning. Will plan for 3D printed cage with Infinity intramedullary nailing for definitive osseous stability with foot in rectus position. No wound debridement performed today. Continue wound packing with quarter inch iodoform dressing pin sites and incisional sites with Betadine dry sterile dressing. Patient can weight-bear assisted by walker for short periods of time for transfer to the bathroom and to kitchen. Patient receiving IV antibiotics per infectious disease via PICC line. Va ncomycin. Follow-up weekly. 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
[2024-03-27 10:09] VITALS: BP 142/86; PULSE 84; RESP 18; TEMP 36.3; BMI 33.5
--- NOTE | 2024-03-27 11:10 | PCM.WC.PN ---
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 Patient on IV antibiotics via PICC line vancomycin per Enterococcus faecalis positive bone cultures. Patient denies constitutional symptoms. Patient taking aspirin daily for DVT prophylaxis. No new complaints. Objective Data Objective Data Vital Signs: Vital Signs Temp Pulse Resp BP 97.3 F L 84 18 142/86 H 03/27/24 10:09 03/27/24 10:09 03/27/24 10:09 03/27/24 10:09 Weight: 108.862 kg Body Mass Index (BMI) 33.5 Physical Exam Narrative Neurovascular status unchanged. Full-thickness wound down to level of bone with intact vessel loop closure to left lateral ankle. Intact incision to plantar heel intact incision to medial leg and posterior calcaneus. No acute signs of infection to the sites. No evidence of residual purulence noted today. All pin sites appear clean and intact with no infection acutely. Intact external fixation device with the foot held in a rectus position noted to left lower extremity. Const alert and oriented x3 Debridement Note Debridement Note Post-Debridement Measurements and Additional Note: Post-Debridement Measurements/Treatment - Nurse 1 - General Ulcer Assessment Start: 03/09/24 08:47 Freq: Status: Active Protocol: .LOWEXT Activity Type Activity Date Activity User E-sign Co-sign Detail Recorded Client Recorded Date Recorded By Document 03/09/24 08:47 RB wound 03/09/24 08:50 RB Document 03/20/24 09:06 [place] [id number] 03/20/24 09:31 MT Document 03/27/24 10:09 RB [id number] 03/27/24 10:29 RB 03/09/24 03/20/24 03/27/24 08:47 09:06 10:09 - Today's Visit Information Type of service Follow-up Visit Follow-up Visit Follow-up Visit (Physician/CERTIFIED DRIVER EXAMINER (Physician/CERTIFIED DRIVER EXAMINER (Physician/CERTIFIED DRIVER EXAMINER ) ) ) Arrival Mode Ambulatory Wheelchair Wheelchair Transfer Assistance None None Accompanied by dad Patient Identification Verified (Name & Yes Yes Yes ) Patient Requires Transmission-Based No No Precautions Safety Precautions Fall Prevention Height and Weight Body Mass Index (BMI) 33.5 33.5 33.5 BMI Classification Obese Obese Obese Vital Signs Temperature (97.8 F-99.1 F) 97.1 F L 97.3 F L Temperature Source Temporal Temporal Pulse Rate (60-100) 90 87 84 Pulse Location Monitor Monitor Monitor Respiratory Rate (12-18) 18 18 18 Respiratory rate source Observation Observation Observation Blood Pressure (90/60-120/80) 126/78 H 132/79 H 142/86 H Blood Pressure Mean (mm Hg) 94 96 104 Source Monitor Monitor Monitor Position Semi-Fowlers Sitting Semi-Fowlers Blood Pressure Location Right Arm Right Arm Right Arm History Since Last Visit- (Skip if this is Patient's initial visit) Have you changed medications since your No last visit? Any new allergies or adverse reactions No Had a fall/change in ADL's that may No increase risk of falls Signs or symptoms of abuse and/or No neglect since last visit Have you been in the hospital since your No last visit? Has dressing in place as prescribed Yes Has compression in place as prescribed No Has offloadiing in place as prescribed No Experienced any changes in pain level or No management Left Footwear Regular Shoe Right Footwear Regular Shoe Pain Scale: 0-10 Numeric Is Patient Pain Free? Yes Yes Yes WC - Nurse 1 - General Ulcer Measurement Start: 03/09/24 08:47 Freq: Status: Active Protocol: Activity Type Activity Date Activity User E-sign Co-sign Detail Recorded Client Recorded Date Recorded By Document 03/09/24 08:47 RB wound 03/09/24 08:50 RB Document 03/27/24 10:09 RB [id number] 03/27/24 10:29 RB 03/09/24 03/27/24 08:47 10:09 Wound Center Nurse 1 9. L medial ankle -Exudate Amt Medium -Exudate Type Serosanguineous 10. L lateral ankle -Combined with other wound No -Current Size (cm) - Length 3.5 -Current Size (cm) - Width 0.5 -Current Size (cm) - Depth 0.5 -Total Square Cm 1.75 -Photo Taken Yes -Tunneling No -Undermining/Tunneling No -Circular Undermining No -Exudate Amt Medium Large -Exudate Type Serosanguineous Serosanguineous -Wound Margin Thickened & Rolled Under -Granulation Quality [place] -Slough/Fibrin Yes -Necrosis Amt Small (1-33%) -Necrotic Tissue Type Adherent Slough -Structure Exposed N/A -Texture ([place]-wound Skin Appearance) Assessed, Scarring -Moisture ([place]-wound Skin Appearance) Assessed -Color ([place]-wound Skin Appearance) Assessed -Temperature ([place]-wound Skin No Abnormality Appearance) (Pt Warm) -Tenderness on Palpation ([place]-wound No Skin Appearance) -Ulcer Cleansing Rinsed/ Irrigated with Saline -Foul Odor after Cleansing No -Wound Comment(s) rob[place] intact on left medial, L heel, L plantar and LLE lateral incision. Blue elastic laces intact on incision. external fixator on LLE intact. Lower Limb Edema Present Yes Left Calf (cm) 35 Left Ankle (cm) 27.2 WC - Nurse 2 - General Ulcer CM Notes Start: 03/09/24 08:47 Freq: Status: Active Protocol: Activity Type Activity Date Activity User E-sign Co-sign Detail Recorded Client Recorded Date Recorded By Document 03/20/24 09:35 0000 03/20/24 09:39 Document 03/27/24 11:02 [id number] 03/27/24 11:08 03/20/24 03/27/24 09:35 11:02 Wound Center Nurse 2 10. L lateral ankle -Time 11:04 -Correct Patient No Yes -Correct Side, Site, Position No Yes -Correct Procedure No Yes -Procedure Performed No Yes -Type of Procedure Debridement -Clinical Debridement Bone -Tissue Removed Non-viable tissue -Post Debridement (cm) - Length 4.5 -Post Debridement (cm) - Width 1.0 -Post Debridement (cm) - Depth 4.5 -Total Square (Post) (cm) 4.50 -Area of Debridement (cm) - Length 4.5 -Area of Debridement (cm) - Width 1.0 -Total Square (Area) (cm) 4.50 -Tunneling No -Undermining/Tunneling No -Circular Undermining No -Wound/Ulcer Outcome Not Healed Not Healed -Ulcer Cleansing Rinsed/ Irrigated with Saline -Foul Odor after Cleansing No -Bioengineered Tissue No -Bleeding Controlled with Pressure -Treatment Response Procedure Tolerated Well -Offloading No -Debridement - Bone, 1st 20sq cm Yes Pain Scale: 0-10 Numeric Is Patient Pain Free? Yes Yes WC - Nurse 3 - General Ulcer D/C NN Start: 03/09/24 08:47 Freq: Status: Active Protocol: Activity Type Activity Date Activity User E-sign Co-sign Detail Recorded Client Recorded Date Recorded By Document 03/09/24 08:47 RB wound 03/09/24 08:50 RB Edit Result 03/09/24 08:47 RB (1) wound 03/09/24 08:53 RB Document 03/20/24 09:52 KW gfj 03/20/24 09:53 KW (1) #11- L GR TOE - Ulcer Cleansing => betadine - Primary Dressing Applied => NonAdherent => Contact Layer - Primary Dressing Covered/Secured with => Dry Gauze,Secured => with Tape 9. L medial ankle - Ulcer Cleansing => betadine - Primary Dressing Applied => NonAdherent => Contact Layer - Primary Dressing Covered/Secured with => Dry Gauze & Roll => Gauze 10. L lateral ankle - Ulcer Cleansing => betadine - Primary Dressing Applied => NonAdherent => Contact Layer, => Optilok 6.5x10 - Primary Dressing Covered/Secured with => Dry Gauze & Roll => Gauze,Secured with => Tape - Optilok 6.5x10 => 1 03/09/24 03/20/24 08:47 09:52 Vital Signs Temperature (97.8 F-99.1 F) 97.1 F L Temperature Source Temporal Pulse Rate (60-100) 90 Pulse Location Monitor Respiratory Rate (12-18) 18 Respiratory rate source Observation Blood Pressure (90/60-120/80) 126/78 H Blood Pressure Mean (mm Hg) 94 Source Monitor Position Semi-Fowlers Blood Pressure Location Right Arm Pain Scale: 0-10 Numeric Is Patient Pain Free? Yes Yes Wound Care Center Nurse 3 #11- L GR TOE -Ulcer Cleansing betadine -Primary Dressing Applied NonAdherent Contact Layer -Primary Dressing Covered/Secured with Dry Gauze, Secured with Tape 9. L medial ankle -Ulcer Cleansing betadine -Primary Dressing Applied NonAdherent Contact Layer -Primary Dressing Covered/Secured with Dry Gauze & Roll Gauze 10. L lateral ankle -Ulcer Cleansing betadine Soap and Water -Primary Dressing Applied NonAdherent NonAdherent Contact Layer, Contact Layer Optilok 6.5x10 -Other Dressing betadine -Primary Dressing Covered/Secured with Dry Gauze & Dry Gauze & Roll Gauze, Roll Gauze, Secured with Secured with Tape Tape -Optilok 6.5x10 1 Left -Multi-Layered Wrap Application Multi-Layer Comp - Left ($) Treatment Response Procedure Tolerated Well WC - Visit Discharge Discharge Condition Stable Stable Ambulatory Status Ambulatory,Cane Wheelchair Transportation Private Auto Private Auto Medication Reconcilliation completed & No No provided to patient/care provider Clinical Summary of Care Provided Yes Yes Assessment/Plan Assessment/Plan (1) Charcot's joint, left ankle and foot: CODE(S): M14.672 - Charcot's joint, left ankle and foot PLAN: Exam performed. CT scan ordered for stage II surgical planning. Will plan for 3D printed cage with Infinity intramedullary nailing for definitive osseous stability with foot in rectus position. [place] removed from plantar incisional site medial leg incision and posterior heel incision. All these incisions were healed today. Vessel loop closure removed from lateral ankle and foot. Lateral foot wound was debrided excisionally down to including level of bone using a 5 mm dermal curette. All nonviable tissue removed. Topical anesthesia used and patient has neuropathy. Hemostasis obtained with light compression. Patient tolerated procedure well. Pre and postdebridement measurements documented nursing notes. Patient can weight-bear assisted by walker for short periods of time for transfer to the bathroom and to kitchen. Patient receiving IV antibiotics per infectious disease via PICC line. Vancomycin. Follow-up weekly. 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
--- NOTE | 2024-03-29 11:59 | WC ---
PHOTO 03/27/24 LEFT LATERAL ANKLE
[2024-04-03 09:43] VITALS: BP 124/75; PULSE 83; RESP 18; TEMP 36; BMI 33.5
--- NOTE | 2024-04-03 10:02 | WC ---
Pt left LE has external fixator with 9 pins intact. left medial incision, left plantar, left heel all well approximated.
--- NOTE | 2024-04-03 10:18 | PN.PCM_ITS ---
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 Patient on IV antibiotics via PICC line vancomycin per Enterococcus faecalis positive bone cultures. Patient denies constitutional symptoms. Patient taking aspirin daily for DVT prophylaxis. No new complaints. Objective Data Objective Data Vital Signs: Vital Signs Temp Pulse Resp BP 96.8 F L 83 18 124/75 H 04/03/24 09:43 04/03/24 09:43 04/03/24 09:43 04/03/24 09:43 Weight: 108.862 kg Body Mass Index (BMI) 33.5 Physical Exam Narrative Neurovascular status unchanged. Full-thickness wound down to level of bone with intact vessel loop closure to left lateral ankle. Intact incision to plantar heel intact incision to medial leg and posterior calcaneus. No acute signs of infection to the sites. No evidence of residual purulence noted today. All pin sites appear clean and intact with no infection acutely. Intact external fixation device with the foot held in a rectus position noted to left lower extremity. Const alert and oriented x3 Debridement Note Debridement Note Post-Debridement Measurements and Additional Note: Post-Debridement Measurements/Treatment - Nurse 1 - General Ulcer Assessment Start: 03/09/24 08:47 Freq: Status: Active Protocol: .LOWEXT Activity Type Activity Date Activity User E-sign Co-sign Detail Recorded Client Recorded Date Recorded By Document 03/09/24 08:47 RB wound 03/09/24 08:50 RB Document 03/20/24 09:06 TX [id number] 03/20/24 09:31 TX Document 03/27/24 10:09 RB [id number] 03/27/24 10:29 RB Document 04/03/24 09:43 RB [id number] 04/03/24 10:04 RB 03/09/24 03/20/24 03/27/24 08:47 09:06 10:09 - Today's Visit Information Type of service Follow-up Visit Follow-up Visit Follow-up Visit (Physician/BOTTLING SUPERVISOR (Physician/BOTTLING SUPERVISOR (Physician/BOTTLING SUPERVISOR ) ) ) Arrival Mode Ambulatory Wheelchair Wheelchair Transfer Assistance None None Accompanied by dad Patient Identification Verified (Name & Yes Yes Yes ) Patient Requires Transmission-Based No No Precautions Safety Precautions Fall Prevention Height and Weight Body Mass Index (BMI) 33.5 33.5 33.5 BMI Classification Obese Obese Obese Vital Signs Temperature (97.8 F-99.1 F) 97.1 F L 97.3 F L Temperature Source Temporal Temporal Pulse Rate (60-100) 90 87 84 Pulse Location Monitor Monitor Monitor Respiratory Rate (12-18) 18 18 18 Respiratory rate source Observation Observation Observation Blood Pressure (90/60-120/80) 126/78 H 132/79 H 142/86 H Blood Pressure Mean (mm Hg) 94 96 104 Source Monitor Monitor Monitor Position Semi-Fowlers Sitting Semi-Fowlers Blood Pressure Location Right Arm Right Arm Right Arm History Since Last Visit- (Skip if this is Patient's initial visit) Have you changed medications since your No last visit? Any new allergies or adverse reactions No Had a fall/change in ADL's that may No increase risk of falls Signs or symptoms of abuse and/or No neglect since last visit Have you been in the hospital since your No last visit? Has dressing in place as prescribed Yes Has compression in place as prescribed No Has offloadiing in place as prescribed No Experienced any changes in pain level or No management Left Footwear Regular Shoe Right Footwear Regular Shoe Pain Scale: 0-10 Numeric Is Patient Pain Free? Yes Yes Yes 04/03/24 09:43 WC - Today's Visit Information Type of service Follow-up Visit (Physician/BOTTLING SUPERVISOR ) Arrival Mode Wheelchair Transfer Assistance Manual Accompanied by Patient Identification Verified (Name & Yes ) Patient Requires Transmission-Based No Precautions Safety Precautions Height and Weight Body Mass Index (BMI) 33.5 BMI Classification Obese Vital Signs Temperature (97.8 F-99.1 F) 96.8 F L Temperature Source Temporal Pulse Rate (60-100) 83 Pulse Location Monitor Respiratory Rate (12-18) 18 Respiratory rate source Observation Blood Pressure (90/60-120/80) 124/75 H Blood Pressure Mean (mm Hg) 91 Source Monitor Position Semi-Fowlers Blood Pressure Location Left Arm History Since Last Visit- (Skip if this is Patient's initial visit) Have you changed medications since your No last visit? Any new allergies or adverse reactions No Had a fall/change in ADL's that may No increase risk of falls Signs or symptoms of abuse and/or No neglect since last visit Have you been in the hospital since your No last visit? Has dressing in place as prescribed Yes Has compression in place as prescribed No Has offloadiing in place as prescribed Yes Experienced any changes in pain level or No management Left Footwear Other Footwear (Comment) Right Footwear Regular Shoe Pain Scale: 0-10 Numeric Is Patient Pain Free? Yes WC - Nurse 1 - General Ulcer Measurement Start: 03/09/24 08:47 Freq: Status: Active Protocol: Activity Type Activity Date Activity User E-sign Co-sign Detail Recorded Client Recorded Date Recorded By Document 03/09/24 08:47 RB wound 03/09/24 08:50 RB Document 03/27/24 10:09 RB [id number] 03/27/24 10:29 RB Document 04/03/24 09:43 RB [id number] 04/03/24 10:04 RB 03/09/24 03/27/24 04/03/24 08:47 10:09 09:43 Wound Center Nurse 1 9. L medial ankle -Exudate Amt Medium -Exudate Type Serosanguineous 10. L lateral ankle -Combined with other wound No No -Current Size (cm) - Length 3.5 3 -Current Size (cm) - Width 0.5 0.7 -Current Size (cm) - Depth 0.5 2.3 -Total Square Cm 1.75 2.1 -Photo Taken Yes -Tunneling No No -Undermining/Tunneling No No -Circular Undermining No No -Exudate Amt Medium Large Medium -Exudate Type Serosanguineous Serosanguineous Serosanguineous -Wound Margin Thickened & Thickened & Rolled Under Rolled Under -Granulation Amt Medium (34-66%) -Granulation Quality [place] -Slough/Fibrin Yes Yes -Necrosis Amt Small (1-33%) Small (1-33%) -Necrotic Tissue Type Adherent Slough Adherent Slough -Structure Exposed N/A Bone -Texture ([place]-wound Skin Appearance) Assessed, Assessed, Scarring Scarring -Moisture ([place]-wound Skin Appearance) Assessed Assessed -Color ([place]-wound Skin Appearance) Assessed Assessed -Temperature ([place]-wound Skin No Abnormality No Abnormality Appearance) (Pt Warm) (Pt Warm) -Tenderness on Palpation ([place]-wound No No Skin Appearance) -Ulcer Cleansing Rinsed/ Wound Cleanser Irrigated with Saline -Foul Odor after Cleansing No No -Anesthetic Used 4% Lidocaine Solution -Wound Comment(s) robinson intact on left medial, L heel, L plantar and LLE lateral incision. Blue elastic laces intact on incision. external fixator on LLE intact. Lower Limb Edema Present Yes Left Calf (cm) 35 Left Ankle (cm) 27.2 04/03/24 10:02 Wound Center by Edith Arreola Pt left LE has external fixator with 9 pins intact. left medial incision, left plantar, left heel all well approximated. Initialized on 04/03/24 10:02 - END OF NOTE WC - Nurse 2 - General Ulcer CM Notes Start: 03/09/24 08:47 Freq: Status: Active Protocol: Activity Type Activity Date Activity User E-sign Co-sign Detail Recorded Client Recorded Date Recorded By Document 03/20/24 09:35 0000 03/20/24 09:39 Document 03/27/24 11:02 [id number] 03/27/24 11:08 Document 04/03/24 10:13 [id number] 04/03/24 10:18 03/20/24 03/27/24 04/03/24 09:35 11:02 10:13 Wound Center Nurse 2 10. L lateral ankle -Time 11:04 10:14 -Correct Patient No Yes Yes -Correct Side, Site, Position No Yes Yes -Correct Procedure No Yes Yes -Procedure Performed No Yes Yes -Type of Procedure Debridement Debridement -Clinical Debridement Bone Bone -Tissue Removed Non-viable Slough tissue -Post Debridement (cm) - Length 4.5 3.1 -Post Debridement (cm) - Width 1.0 0.8 -Post Debridement (cm) - Depth 4.5 2.4 -Total Square (Post) (cm) 4.50 2.48 -Area of Debridement (cm) - Length 4.5 3.1 -Area of Debridement (cm) - Width 1.0 0.8 -Total Square (Area) (cm) 4.50 2.48 -Tunneling No No -Undermining/Tunneling No No -Circular Undermining No No -Wound/Ulcer Outcome Not Healed Not Healed Not Healed -Ulcer Cleansing Rinsed/ Rinsed/ Irrigated with Irrigated with Saline Saline -Foul Odor after Cleansing No No -Bioengineered Tissue No No -Bleeding Controlled with Pressure Pressure -Treatment Response Procedure Procedure Tolerated Well Tolerated Well -Offloading No No -Debridement - Bone, 1st 20sq cm Yes Yes Pain Scale: 0-10 Numeric Is Patient Pain Free? Yes Yes Yes WC - Nurse 3 - General Ulcer D/C NN Start: 03/09/24 08:47 Freq: Status: Active Protocol: Activity Type Activity Date Activity User E-sign Co-sign Detail Recorded Client Recorded Date Recorded By Document 03/09/24 08:47 RB wound 03/09/24 08:50 RB Edit Result 03/09/24 08:47 RB (1) wound 03/09/24 08:53 RB Document 03/20/24 09:52 KW [email or web address] 03/20/24 09:53 KW Document 03/27/24 11:44 RB [id number] 03/27/24 11:46 RB (1) #11- L GR TOE - Ulcer Cleansing => betadine - Primary Dressing Applied => NonAdherent => Contact Layer - Primary Dressing Covered/Secured with => Dry Gauze,Secured => with Tape 9. L medial ankle - Ulcer Cleansing => betadine - Primary Dressing Applied => NonAdherent => Contact Layer - Primary Dressing Covered/Secured with => Dry Gauze & Roll => Gauze 10. L lateral ankle - Ulcer Cleansing => betadine - Primary Dressing Applied => NonAdherent => Contact Layer, => Optilok 6.5x10 - Primary Dressing Covered/Secured with => Dry Gauze & Roll => Gauze,Secured with => Tape - Optilok 6.5x10 => 1 03/09/24 03/20/24 03/27/24 08:47 09:52 11:44 Vital Signs Temperature (97.8 F-99.1 F) 97.1 F L Temperature Source Temporal Pulse Rate (60-100) 90 Pulse Location Monitor Respiratory Rate (12-18) 18 Respiratory rate source Observation Blood Pressure (90/60-120/80) 126/78 H Blood Pressure Mean (mm Hg) 94 Source Monitor Position Semi-Fowlers Blood Pressure Location Right Arm Pain Scale: 0-10 Numeric Is Patient Pain Free? Yes Yes Yes Wound Care Center Nurse 3 #11- L GR TOE -Ulcer Cleansing betadine -Primary Dressing Applied NonAdherent Contact Layer -Primary Dressing Covered/Secured with Dry Gauze, Secured with Tape 9. L medial ankle -Ulcer Cleansing betadine -Primary Dressing Applied NonAdherent Contact Layer -Primary Dressing Covered/Secured with Dry Gauze & Roll Gauze 10. L lateral ankle -Ulcer Cleansing betadine Soap and Water betadine to periwound and incisions -Primary Dressing Applied NonAdherent NonAdherent Nugauze, Contact Layer, Contact Layer Iodoform 1/2in Optilok 6.5x10 -Other Dressing betadine -Primary Dressing Covered/Secured with Dry Gauze & Dry Gauze & Dry Gauze,Dry Roll Gauze, Roll Gauze, Gauze & Roll Secured with Secured with Gauze,Secured Tape Tape with Tape -Nugauze, Iodoform 1/2in 1 -Optilok 6.5x10 1 -Wound Comment(s) pins cleaned with betadine and split 2x2 applied at pin sites Left -Multi-Layered Wrap Application Multi-Layer Comp - Left ($) Treatment Response Procedure Procedure Tolerated Well Tolerated Well WC - Visit Discharge Discharge Condition Stable Stable Stable Ambulatory Status Ambulatory,Cane Wheelchair Wheelchair Transportation Private Auto Private Auto Private Auto Medication Reconcilliation completed & No No No provided to patient/care provider Clinical Summary of Care Provided Yes Yes Yes Assessment/Plan Assessment/Plan (1) Charcot's joint, left ankle and foot: CODE(S): M14.672 - Charcot's joint, left ankle and foot PLAN: Exam performed. CT scan ordered for stage II surgical planning. Will plan for 3D printed cage with Infinity intramedullary nailing for definitive osseous stability with foot in rectus position. Robinson removed from plantar incisional site medial leg incision and posterior heel incision. All these incisions were healed today. Vessel loop closure removed from lateral ankle and foot. Lateral foot wound was debrided excisionally down to including level of bone using a 5 mm dermal curette. All nonviable tissue removed. Topical anesthesia used and patient has neuropathy. Hemostasis obtained with light compression. Patient tolerated procedure well. Pre and postdebridement measurements documented nursing notes. Patient can weight-bear assisted by walker for short periods of time for transfer to the bathroom and to kitchen. Patient receiving IV antibiotics per infectious disease via PICC line. Vancomycin. Follow-up weekly. 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
--- NOTE | 2024-04-05 08:55 | WC ---
PHOTO 04/03/24 LEFT LATERAL ANKLE
== END 2024-04-07 23:59 | disposition home or self-care (01) ==
LOC: WC 09:30
PROVIDERS: PCP Student in an Organized Health Care Education/Training Program; Referring Provider Podiatrist; Visit Provider Podiatrist
DX: E11.621 Type 2 diabetes mellitus with foot ulcer (principal); A48.0 Gas gangrene; L97.324 Non-pressure chronic ulcer of left ankle with necrosis of bone; M86.172 Other acute osteomyelitis, left ankle and foot; E11.42 Type 2 diabetes mellitus with diabetic polyneuropathy; E11.69 Type 2 diabetes mellitus with other specified complication; I10 Essential (primary) hypertension; L03.116 Cellulitis of left lower limb
CPT/HCPCS: 11044; 29581; 99214; G0463

== ENCOUNTER 2024-04-12 11:45 | Outpatient (RCR) | payer BC, SELFPAY ==
[2024-04-12 14:12] LABS: Erythrocyte Sedimentation Rate 19 mm/hr (0-20)
[2024-04-12 14:14] LABS: Hematocrit 39.7 % (40-54); Hemoglobin 12.1 g/dL (13.0-16.5); Mean Corp Hgb Conc 30.5 g/dL (32-36); Mean Corpuscular Hgb 23.6 pg (27.0-32.0); Mean Corpuscular Volume 77.4 fL (80-94); Mean Platelet Vol. 10.6 fl (6.2-12.0); Platelet Count 221 K/mm3 (150-450); RBC Distribution Width CV 17.2 % (11.6-14.6); RBC Distribution Width SD 47.8 fl (35.1-43.9); Red Blood Count 5.13 M/mm3 (4.6-6.2); White Blood Count 4.3 K/mm3 (4.4-11.0)
[2024-04-12 14:22] LABS: Anion Gap 6 (5-15); BUN 16 mg/dL (7-18); BUN/Creat Ratio 19.3 RATIO (10-20); Calcium,Total 9.3 mg/dL (8.5-10.1); Chloride 107 mmol/L (98-107); Creatinine, Serum 0.83 mg/dL (0.70-1.30); EST Glomerular Filtration Rate 108 mL/min (>60); Est Glom Filt Rate - Afr Amer 131 mL/min (>60); Glucose 95 mg/dL (74-106); Sodium Level 140 mmol/L (136-145)
== END 2024-04-12 18:00 | disposition home or self-care (01) ==
LOC: HHLAB 11:45
PROVIDERS: PCP Student in an Organized Health Care Education/Training Program; Referring Provider Internal Medicine Infectious Disease; Visit Provider Internal Medicine Infectious Disease
DX: M14.672 Charcot's joint, left ankle and foot (principal); M19.079 Primary osteoarthritis, unspecified ankle and foot
CPT/HCPCS: 80048; 80202; 85027; 85652

== ENCOUNTER → 2024-04-18 | Outpatient (CLI) | payer BC, SELFPAY ==
--- NOTE | 2024-04-18 15:40 | CT_ITS ---
STUDY: CT LEFT ANKLE / FOOT WITHOUT CONTRAST REASON FOR EXAM: Male, 44 years old. CHARCOT''S JOINT TECHNIQUE: Axial CT images of the left lower extremity was performed without IV contrast material. Coronal and sagittal reformats were provided. The protocol utilizes one or more of the following dose reduction techniques: automated exposure control, adjustment of mA and/or kV according to patient size, and/or use of iterative reconstruction technique. RADIATION DOSAGE (If Supplied By Facility): CTDIvol = ( 15.35 ) mGy, DLP = ( 475.39 ) mGycm COMPARISON: Left foot CT dated 04/02/2024. FINDINGS: Bones: Again seen are external fixation devices around the ankle and foot with fixation pins through the tibia, calcaneus, and metatarsals. Again seen is an intramedullary vance extending through the tibia, talus, and calcaneus. 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 There are old healed fractures of the second through fifth metatarsals. Again seen is resection of the distal fibula. Osseous structures are otherwise intact without evidence of fracture or dislocation. No lytic or blastic osseous masses. Soft Tissues: There is a persistent wound along the lateral aspect of the ankle with soft tissue gas entering the lateral talus as well as persistent small bubbles of gas in the talus adjacent to the intramedullary vance (axial series 3 images 124-135). There is generalized soft tissue swelling around the ankle and foot. The deep soft tissue structures are unremarkable. CT/Extremity Lower without Contra IMPRESSION: Persistent external fixation hardware around the ankle and foot. Persistent intramedullary vance extending through the tibia, talus, and calcaneus. Persistent wound along the lateral aspect of the ankle with soft tissue gas entering the lateral talus as well as persistent small bubbles of gas in the talus adjacent to the intramedullary vance (which again could be due to recent surgical instrumentation or developing gas-forming infection). 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 Old healed fractures of the second through fifth metatarsals. Electronically Signed: Fadi Baker MD at 10:50 EDT ,
== END | disposition home or self-care (01) ==
LOC: CT 15:37
PROVIDERS: PCP Student in an Organized Health Care Education/Training Program; Referring Provider Podiatrist; Visit Provider Podiatrist
DX: M14.672 Charcot's joint, left ankle and foot (principal)
CPT/HCPCS: 73700

== ENCOUNTER 2024-04-19 10:49 | Outpatient (RCR) | payer BC, SELFPAY ==
[2024-04-19 11:04] LABS: Erythrocyte Sedimentation Rate 16 mm/hr (0-20)
[2024-04-19 11:06] LABS: Hematocrit 39.5 % (40-54); Mean Corp Hgb Conc 30.4 g/dL (32-36); Mean Corpuscular Hgb 23.5 pg (27.0-32.0); Mean Corpuscular Volume 77.3 fL (80-94); Mean Platelet Vol. 10.3 fl (6.2-12.0); Platelet Count 220 K/mm3 (150-450); RBC Distribution Width SD 47.2 fl (35.1-43.9); Red Blood Count 5.11 M/mm3 (4.6-6.2); White Blood Count 5.2 K/mm3 (4.4-11.0)
[2024-04-19 11:08] LABS: Anion Gap 6 (5-15); BUN 15 mg/dL (7-18); BUN/Creat Ratio 18.8 RATIO (10-20); Chloride 106 mmol/L (98-107); EST Glomerular Filtration Rate 113 mL/min (>60); Est Glom Filt Rate - Afr Amer 137 mL/min (>60); Glucose 106 mg/dL (74-106); Potassium 4.2 mmol/L (3.5-5.1); Sodium Level 140 mmol/L (136-145)
[2024-04-19 11:09] LABS: Vancomycin, Trough Level 12.4 ug/mL (5.0-15.0)
== END 2024-04-19 18:00 | disposition home or self-care (01) ==
LOC: HHLAB 10:49
PROVIDERS: PCP Student in an Organized Health Care Education/Training Program; Referring Provider Internal Medicine Infectious Disease; Visit Provider Internal Medicine Infectious Disease
DX: M14.672 Charcot's joint, left ankle and foot
CPT/HCPCS: 80048; 80202; 85027; 85652

== ENCOUNTER 2024-05-01 09:30 | Outpatient (RCR) | payer BC, SELFPAY ==
[2024-04-08 00:28] VITALS: BP 145/76; PULSE 80; RESP 18; TEMP 35.7; BMI 33.5
[2024-04-10 09:26] VITALS: BP 127/84; PULSE 80; RESP 18; TEMP 36.2; BMI 33.5
[2024-04-17 09:41] VITALS: BP 145/79; PULSE 95; RESP 18; TEMP 36.2; BMI 33.5
[2024-05-01 10:00] VITALS: BP 127/71; PULSE 84; RESP 18; TEMP 36.3; BMI 33.5
== END 2024-05-07 23:59 | disposition home or self-care (01) ==
LOC: WC 09:30
PROVIDERS: PCP Student in an Organized Health Care Education/Training Program; Referring Provider Podiatrist; Visit Provider Podiatrist
DX: E11.628 Type 2 diabetes mellitus with other skin complications (principal); A48.0 Gas gangrene; L97.324 Non-pressure chronic ulcer of left ankle with necrosis of bone; M86.9 Osteomyelitis, unspecified; E11.69 Type 2 diabetes mellitus with other specified complication; M14.672 Charcot's joint, left ankle and foot
CPT/HCPCS: 11042; 11043; 11044

== ENCOUNTER 2024-05-29 14:00 | Outpatient (RCR) | payer BC, SELFPAY ==
[2024-05-08 00:38] VITALS: BP 145/76; PULSE 80; RESP 18; TEMP 35.7; BMI 33.5
[2024-05-17 09:21] VITALS: BP 132/85; PULSE 85; RESP 18; TEMP 36.1; BMI 33.5
--- NOTE | 2024-05-17 09:55 | PN.PCM_ITS ---
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 Patient on IV antibiotics via PICC line vancomycin per Enterococcus faecalis positive bone cultures. Patient denies constitutional symptoms. Patient taking aspirin daily for DVT prophylaxis. No new complaints. Objective Data Objective Data Vital Signs: Vital Signs Temp Pulse Resp BP 97 F L 85 18 132/85 H 05/17/24 09:21 05/17/24 09:21 05/17/24 09:21 05/17/24 09:21 Weight: 108.862 kg Body Mass Index (BMI) 33.5 Physical Exam Narrative Neurovascular status unchanged. Full-thickness wound down to level of bone to left lateral ankle. healed incision to plantar heel intact incision to medial leg and posterior calcaneus. No acute signs of infection to the sites. No evidence of residual purulence noted today. All pin sites appear clean and intact with no infection acutely. Intact external fixation device with the foot held in a rectus position noted to left lower extremity. Const alert and oriented x3 Debridement Note Debridement Note Post-Debridement Measurements and Additional Note: Post-Debridement Measurements/Treatment - Nurse 1 - General Ulcer Assessment Start: 05/17/24 09:21 Freq: Status: Active Protocol: .LOWEXT Activity Type Activity Date Activity User E-sign Co-sign Detail Recorded Client Recorded Date Recorded By Document 05/17/24 09:21 [id number] 05/17/24 09:41 RB 05/17/24 09:21 - Today's Visit Information Type of service Follow-up Visit (Physician/BORDEREAU CLERK ) Arrival Mode Wheelchair Transfer Assistance Manual Patient Identification Verified (Name & Yes ) Patient Requires Transmission-Based No Precautions Height and Weight Body Mass Index (BMI) 33.5 BMI Classification Obese Vital Signs Temperature (97.8 F-99.1 F) 97 F L Temperature Source Temporal Pulse Rate (60-100) 85 Pulse Location Monitor Respiratory Rate (12-18) 18 Respiratory rate source Observation Blood Pressure (90/60-120/80) 132/85 H Blood Pressure Mean (mm Hg) 100 Source Monitor Position Semi-Fowlers Blood Pressure Location Left Arm History Since Last Visit- (Skip if this is Patient's initial visit) Have you changed medications since your No last visit? Any new allergies or adverse reactions No Had a fall/change in ADL's that may No increase risk of falls Signs or symptoms of abuse and/or No neglect since last visit Have you been in the hospital since your No last visit? Has dressing in place as prescribed Yes Has compression in place as prescribed No Has offloadiing in place as prescribed No Experienced any changes in pain level or No management Left Footwear No Footwear Right Footwear Regular Shoe Pain Scale: 0-10 Numeric Is Patient Pain Free? Yes - Nurse 1 - General Ulcer Measurement Start: 05/17/24 09:21 Freq: Status: Active Protocol: Activity Type Activity Date Activity User E-sign Co-sign Detail Recorded Client Recorded Date Recorded By Document 05/17/24 09:21 RB [id number] 05/17/24 09:41 RB Edit Result 05/17/24 09:21 RB (1) [id number] 05/17/24 09:41 RB (1) 10. L lateral ankle - Structure Exposed N/A => Bone 05/17/24 09:21 Wound Center Nurse 1 10. L lateral ankle -Combined with other wound No -Current Size (cm) - Length 1 -Current Size (cm) - Width 0.3 -Current Size (cm) - Depth 1.9 -Total Square Cm 0.3 -Photo Taken Yes -Tunneling No -Undermining/Tunneling No -Circular Undermining No -Exudate Amt Medium -Exudate Type Serosanguineous -Wound Margin Thickened & Rolled Under -Granulation Amt Medium (34-66%) -Granulation Quality [place] -Slough/Fibrin Yes -Necrosis Amt Medium (34-66%) -Necrotic Tissue Type Adherent Slough -Structure Exposed Bone -Texture ([place]-wound Skin Appearance) Assessed, Scarring -Moisture ([place]-wound Skin Appearance) Assessed -Color ([place]-wound Skin Appearance) Assessed -Temperature ([place]-wound Skin No Abnormality Appearance) (Pt Warm) -Tenderness on Palpation ([place]-wound No Skin Appearance) -Ulcer Cleansing Wound Cleanser -Foul Odor after Cleansing No -Anesthetic Used 5% Lidocaine Gel -Wound Comment(s) External fixator intact WC - Nurse 2 - General Ulcer CM Notes Start: 05/17/24 09:21 Freq: Status: Active Protocol: Activity Type Activity Date Activity User E-sign Co-sign Detail Recorded Client Recorded Date Recorded By Document 05/17/24 09:50 BRIAN [id number] 05/17/24 09:52 JF 05/17/24 09:50 Wound Center Nurse 2 -Time 09:50 -Correct Patient Yes -Correct Side, Site, Position Yes -Correct Procedure Yes -Procedure Performed Yes -Type of Procedure Debridement -Clinical Debridement Muscle / Fascia -Tissue Removed Muscle -Post Debridement (cm) - Length 2.3 -Post Debridement (cm) - Width 0.5 -Post Debridement (cm) - Depth 1.3 -Total Square (Post) (cm) 1.15 -Area of Debridement (cm) - Length 2.3 -Area of Debridement (cm) - Width 0.5 -Total Square (Area) (cm) 1.15 -Tunneling No -Undermining/Tunneling No -Circular Undermining No -Wound/Ulcer Outcome Not Healed -Ulcer Cleansing Rinsed/ Irrigated with Saline -Foul Odor after Cleansing No -Bioengineered Tissue No -Bleeding Controlled with Pressure -Treatment Response Procedure Tolerated Well -Offloading No -Assistive Device(s) Wheelchair -Debridement - Muscle / Fascia, 1st Yes 20sq cm Pain Scale: 0-10 Numeric Is Patient Pain Free? Yes Assessment/Plan Assessment/Plan (1) Charcot's joint, left ankle and foot: CODE(S): M14.672 - Charcot's joint, left ankle and foot PLAN: Exam performed. CT scan obtained. And plan for left lower extremity being produced by [employer]. Planning stage II procedure within the next 4 weeks. All incisions healed, residual left lateral ankle wound down to bone improving significantly Lateral foot wound was debrided excisionally down to including level of muscle using a 5 mm dermal curette. All nonviable tissue removed. Topical anesthesia used and patient has neuropathy. Hemostasis obtained with light compression. Patient tolerated procedure well. Pre and postdebridement measurements documented nursing notes. Patient can weight-bear assisted by walker for short periods of time for transfer to the bathroom and to kitchen. Patient off antibiotics, no acute signs of infection. Follow-up weekly. 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
--- NOTE | 2024-05-18 12:06 | WC ---
PHOTO 05/17/24 LEFT LATERAL ANKLE
--- NOTE | 2024-05-21 11:15 | WC ---
PHOTO LEFT LATERAL ANKLE 05/17/24
[2024-05-29 11:59] VITALS: BP 134/79; PULSE 82; RESP 18; TEMP 36.1; BMI 33.5
--- NOTE | 2024-05-29 12:15 | PN.PCM_ITS ---
History of Present Illness Date of Service: 05/29/24 Chief Complaint: Diabetic left foot infection with gas gangrene and osteom yelitis; Li grade 3 diabetic foot infection. 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 Patient on IV antibiotics via PICC line vancomycin per Enterococcus faecalis positive bone cultures. Patient denies constitutional symptoms. Patient taking aspirin daily for DVT prophylaxis. No new complaints. Objective Data Objective Data Vital Signs: Vital Signs Temp Pulse Resp BP 97 F L 82 18 134/79 H 05/29/24 11:59 05/29/24 11:59 05/29/24 11:59 05/29/24 11:59 Weight: 108.862 kg Body Mass Index (BMI) 33.5 Physical Exam Narrative Neurovascular status unchanged. Full-thickness wound down to level of bone to left lateral ankle. healed incision to plantar heel intact incision to medial leg and posterior calcaneus. No acute signs of infection to the sites. No evidence of residual purulence noted today. All pin sites appear clean and intact with no infection acutely. Intact external fixation device with the foot held in a rectus position noted to left lower extremity. Const alert and oriented x3 Debridement Note Debridement Note Post-Debridement Measurements and Additional Note: Post-Debridement Measurements/Treatment - Nurse 1 - General Ulcer Assessment Start: 05/17/24 09:21 Freq: Status: Active Protocol: .LOWEXT Activity Type Activity Date Activity User E-sign Co-sign Detail Recorded Client Recorded Date Recorded By Document 05/17/24 09:21 RB [id number] 05/17/24 09:41 RB Document 05/29/24 11:59 RB [id number] 05/29/24 12:02 RB 05/17/24 05/29/24 09:21 11:59 - Today's Visit Information Type of service Follow-up Visit Nurse-only (Physician/SENIOR MATERIALS ANALYST Visit ) Arrival Mode Wheelchair Stretcher Transfer Assistance Manual Manual Patient Identification Verified (Name & Yes ) Patient Requires Transmission-Based No No Precautions Finger Stick Blood Sugar(mg/dl) (if 102 indicated): Blood Sugar Stated by Patient Height and Weight Body Mass Index (BMI) 33.5 33.5 BMI Classification Obese Obese Vital Signs Temperature (97.8 F-99.1 F) 97 F L 97 F L Temperature Source Temporal Temporal Pulse Rate (60-100) 85 82 Pulse Location Monitor Monitor Respiratory Rate (12-18) 18 18 Respiratory rate source Observation Observation Blood Pressure (90/60-120/80) 132/85 H 134/79 H Blood Pressure Mean (mm Hg) 100 97 Source Monitor Monitor Position Semi-Fowlers Semi-Fowlers Blood Pressure Location Left Arm Left Arm History Since Last Visit- (Skip if this is Patient's initial visit) Have you changed medications since your No No last visit? Any new allergies or adverse reactions No No Had a fall/change in ADL's that may No No increase risk of falls Signs or symptoms of abuse and/or No No neglect since last visit Have you been in the hospital since your No No last visit? Has dressing in place as prescribed Yes Yes Has compression in place as prescribed No No Has offloadiing in place as prescribed No Yes Experienced any changes in pain level or No No management Left Footwear No Footwear Other Footwear (Comment) Right Footwear Regular Shoe Pain Scale: 0-10 Numeric Is Patient Pain Free? Yes Yes WC - Nurse 1 - General Ulcer Measurement Start: 05/17/24 09:21 Freq: Status: Active Protocol: Activity Type Activity Date Activity User E-sign Co-sign Detail Recorded Client Recorded Date Recorded By Document 05/17/24 09:21 RB [id number] 05/17/24 09:41 RB Edit Result 05/17/24 09:21 RB (1) [id number] 05/17/24 09:41 RB Document 05/29/24 11:59 RB [id number] 05/29/24 12:02 RB (1) 10. L lateral ankle - Structure Exposed N/A => Bone 05/17/24 05/29/24 09:21 11:59 Wound Center Nurse 1 10. L lateral ankle -Combined with other wound No No -Current Size (cm) - Length 1 1.5 -Current Size (cm) - Width 0.3 0.3 -Current Size (cm) - Depth 1.9 2 -Total Square Cm 0.3 0.45 -Photo Taken Yes -Tunneling No No -Undermining/Tunneling No Yes -Undermining/Tunneling Starts (O'clock 12 ) -Undermining/Tunneling Ends (O'clock) 12 -Maximum Distance (cm) 1.2 -Circular Undermining No Yes -Exudate Amt Medium Large -Exudate Type Serosanguineous Serosanguineous -Wound Margin Thickened & Thickened & Rolled Under Rolled Under -Granulation Amt Medium (34-66%) Medium (34-66%) -Granulation Quality Torrey Torrey -Slough/Fibrin Yes Yes -Necrosis Amt Medium (34-66%) Medium (34-66%) -Necrotic Tissue Type Adherent Slough Adherent Slough -Structure Exposed Bone Bone -Texture ([place]in[place]-wound Skin Appearance) Assessed, Assessed, Scarring Scarring -Moisture ([place]-wound Skin Appearance) Assessed Assessed, Maceration -Color ([place]-wound Skin Appearance) Assessed Assessed -Temperature ([place]-wound Skin No Abnormality No Abnormality Appearance) (Pt Warm) (Pt Warm) -Tenderness on Palpation ([place]-wound No No Skin Appearance) -Ulcer Cleansing Wound Cleanser Wound Cleanser -Foul Odor after Cleansing No No -Anesthetic Used 5% Lidocaine 4% Lidocaine Gel Solution -Wound Comment(s) External external fixator intact fixator in place [address] WC - Nurse 2 - General Ulcer CM Notes Start: 05/17/24 09:21 Freq: Status: Active Protocol: Activity Type Activity Date Activity User E-sign Co-sign Detail Recorded Client Recorded Date Recorded By Document 05/17/24 09:50 [id number] 05/17/24 09:52 Document 05/29/24 12:08 [id number] 05/29/24 12:10 05/17/24 05/29/24 09:50 12:08 Wound Center Nurse 2 10. L lateral ankle -Time 09:50 12:09 -Correct Patient Yes Yes -Correct Side, Site, Position Yes Yes -Correct Procedure Yes Yes -Procedure Performed Yes Yes -Type of Procedure Debridement Debridement -Clinical Debridement Muscle / Fascia Muscle / Fascia -Tissue Removed Muscle Muscle,Fascia -Post Debridement (cm) - Length 2.3 1.5 -Post Debridement (cm) - Width 0.5 0.5 -Post Debridement (cm) - Depth 1.3 2.0 -Total Square (Post) (cm) 1.15 0.75 -Area of Debridement (cm) - Length 2.3 1.5 -Area of Debridement (cm) - Width 0.5 0.5 -Total Square (Area) (cm) 1.15 0.75 -Tunneling No No -Undermining/Tunneling No No -Circular Undermining No No -Wound/Ulcer Outcome Not Healed Not Healed -Ulcer Cleansing Rinsed/ Rinsed/ Irrigated with Irrigated with Saline Saline -Foul Odor after Cleansing No No -Bioengineered Tissue No No -Bleeding Controlled with Pressure Pressure -Treatment Response Procedure Procedure Tolerated Well Tolerated Well -Offloading No No -Assistive Device(s) Wheelchair -Debridement - Muscle / Fascia, 1st Yes Yes 20sq cm Pain Scale: 0-10 Numeric Is Patient Pain Free? Yes Yes - Nurse 3 - General Ulcer D/C NN Start: 05/17/24 09:21 Freq: Status: Active Protocol: Activity Type Activity Date Activity User E-sign Co-sign Detail Recorded Client Recorded Date Recorded By Document 05/17/24 10:26 DL [id number] 05/17/24 10:28 DL 05/17/24 10:26 Wound Care Center Nurse 3 10. L lateral ankle -Ulcer Cleansing Rinsed/ Irrigated with Saline -Foul Odor after Cleansing No -Other Dressing betadine gauze packing today -Primary Dressing Covered/Secured with Dry Gauze, Secured with Tape -Wound Comment(s) Betadine to all pins, wrapped with 2x2 and naman to leg Treatment Response Procedure Tolerated Well Pain Scale: 0-10 Numeric Is Patient Pain Free? Yes - Visit Discharge Discharge Condition Stable Ambulatory Status Wheelchair Transportation Private Auto Facility Type Home Health Orders Sent Yes Assessment/Plan Assessment/Plan (1) Charcot's joint, left ankle and foot: CODE(S): M14.672 - Charcot's joint, left ankle and foot PLAN: Exam performed. CT scan obtained. And plan for left lower extremity being produced by [employer]. Planning stage II procedure within the next 4 weeks. All incisions healed, residual left lateral ankle wound down to bone improving significantly Lateral foot wound was debrided excisionally down to including level of muscle using a 5 mm dermal curette. All nonviable tissue removed. Topical anesthesia used and patient has neuropathy. Hemostasis obtained with light compression. Patient tolerated procedure well. Pre and postdebridement measurements documented nursing notes. Patient can weight-bear assisted by walker for short periods of time for transfer to the bathroom and to kitchen. Patient off antibiotics, no acute signs of infection. Follow-up weekly. 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
--- NOTE | 2024-05-29 13:46 | VDLE_ITS ---
Reason For Study: NON-PRESSURE CHRONIC ULCER, LLE RIGHT LEFT CFV is compressible, spontaneous, phasic, CFV is compressible, spontaneous, phasic, competent and demonstrates normal competent, and demonstrates normal augmentation. augmentation. Procedure FV is compressible, spontaneous, phasic, This is a venous duplex using B-mode, color competent and demonstrates normal flow and spectral Doppler. augmentation. Exam performed in department. POP V is compressible, spontaneous, phasic, A preliminary report was called and/or faxed competent and demonstrates normal to Dr. Perkins @ 14:20 @ [phone]. augmentation. T/P Trunk is compressible. GSV is normal from proximal calf to groin. Proximal PTV is compressible. Proximal PERV is compressible. Unable to assess mid calf to ankle due to external fisation device & bandages. VL/Venous Duplex US, Unilateral Interpretation Summary Deep veins of the left lower extremity are patent and compressible segmentally. There is no evidence of left lower extremity deep vein thrombosis. Valvular competence appears intac t within the proximal deep venous system on the left . The left great saphenous vein appears patent a nd compressible segmentally. Deep and superficial veins of the distal left lower extremity were not assessed due to the presence of an external fixation device and bandages. The right common femo ral vein is patent and compressible . Ordering Physician: Jordi Perkins Referring Physician: Dom Villagomez Performed By: Calri Muñoz, MILESCS, RVT
[2024-05-29 14:41] LABS: Hematocrit 45.4 % (40-54); Hemoglobin 14.3 g/dL (13.0-16.5); Mean Corp Hgb Conc 31.5 g/dL (32-36); Mean Corpuscular Hgb 24.5 pg (27.0-32.0); Mean Corpuscular Volume 77.7 fL (80-94); Mean Platelet Vol. 9.7 fl (6.2-12.0); Platelet Count 248 K/mm3 (150-450); RBC Distribution Width CV 17.5 % (11.6-14.6); RBC Distribution Width SD 47.2 fl (35.1-43.9); Red Blood Count 5.84 M/mm3 (4.6-6.2); White Blood Count 5.8 K/mm3 (4.4-11.0)
[2024-05-29 15:17] LABS: AST(SGOT) 19 U/L (15-37); Alanine Aminotransfer ALT/SGPT 32 U/L (16-61); Albumin, Serum 3.7 g/dL (3.2-5.0); Alkaline Phosphatase 102 U/L (45-117); Anion Gap 6 (5-15); BUN 21 mg/dL (7-18); Calcium,Total 10.1 mg/dL (8.5-10.1); Chloride 104 mmol/L (98-107); Creatinine, Serum 0.91 mg/dL (0.70-1.30); EST Glomerular Filtration Rate 97 mL/min (>60); Est Glom Filt Rate - Afr Amer 117 mL/min (>60); Estimated Creatinine Clearance 132.71 ml/min; Globulin 3.8 g/dL (2.2-4.2); Glucose 106 mg/dL (74-106); Potassium 4.2 mmol/L (3.5-5.1); Protein, Total 7.5 g/dL (6.4-8.2); Sodium Level 139 mmol/L (136-145)
[2024-05-29 15:22] LABS: Color, Urine Yellow (Yellow); Glucose, Dipstick Normal (Normal); Ketone-Dipstick Negative (Negative); Leukocyte Esterase-Dipstick Negative /ul (Negative); Nitrite-Dipstick Negative (Negative); Occult Blood-Urine Negative /ul (Negative); Protein-Dipstick 30 mg/dl (Negative); Specific Gravity, Urine 1.025 (1.002-1.030); Urine Bilirubin Dipstick Negative (Negative); Urine Clarity Clear (Clear); Urine Urobilinogen Normal (Normal)
[2024-05-29 16:01] LABS: Hemoglobin A1c 5.7 % (3.8-5.6)
== END 2024-06-26 10:48 | disposition home or self-care (01) ==
LOC: WC 14:00
PROVIDERS: PCP Student in an Organized Health Care Education/Training Program; Referring Provider Podiatrist; Visit Provider Podiatrist
DX: E11.69 Type 2 diabetes mellitus with other specified complication (principal); E11.52 Type 2 diabetes mellitus with diabetic peripheral angiopathy with gangrene; A48.0 Gas gangrene; L97.324 Non-pressure chronic ulcer of left ankle with necrosis of bone; E11.622 Type 2 diabetes mellitus with other skin ulcer; M86.8X7 Other osteomyelitis, ankle and foot; E11.628 Type 2 diabetes mellitus with other skin complications; M14.672 Charcot's joint, left ankle and foot; B95.2 Enterococcus as the cause of diseases classified elsewhere; R60.0 Localized edema; Z79.82 Long term (current) use of aspirin
CPT/HCPCS: 11043; 36415; 80053; 81002; 83036; 85027; 87086; 93971

== ENCOUNTER 2024-06-14 05:58 | Day surgery (SDC) | payer BC, SELFPAY ==
[2024-06-14] VITALS (11 sets, daily range): BP systolic 90–133; BP diastolic 52–80; PULSE 80–89; RESP 14–16; TEMP 36.3–36.8; O2SAT 88–99; BMI 33.0
[2024-06-14] MEDS: Lactated Ringers 1,000 ML 15 ML IV (06:42)
[2024-06-14 07:10] LABS: Bedside Glucose 133 mg/dL (74-106)
--- NOTE | 2024-06-14 07:16 | PRE.ANES_ITS ---
ASA Classification* ASA Classification ASA Classification: 2 Assessment & Plan Anesthesia* Anesthesia Assessment Anesthesia Assessment: Discussed sedation and/or anesthesia options, risks, benefits, and alternatives with patient/parents/legal guardian/POA. Questions invited. The patient/parents/legal guardian/POA seems to understand and agrees to proceed with anesthesia plan. Reviewed the physical assessment, medical history, allergy history and patient home medications list prior to surgery/procedure/anesthetic and documented any changes. Performed airway and anesthesia risk assessments. Anesthesia Type Anesthesia Type: General History Source History Obtained from:: Patient and Chart Anesthesia Focused Assessment* Temperature: 97.8 F Pulse Rate: 89 Blood Pressure: 133/80 Respiratory Rate: 16 Pulse Ox: 99 Oxygen Delivery Method: Room Air Airway Assessment Mouth opens: >3 cm Mallampati Score: III Teeth Condition: Intact Neck Range of motion (ROM): Full ROM Focused Labs Anesthesia Preop lab: CBC WBC 5.8 K/mm3 (4.4-11.0) 05/29/24 14:08 RBC 5.84 M/mm3 (4.6-6.2) 05/29/24 14:08 Hgb 14.3 g/dL (13.0-16.5) 05/29/24 14:08 Hct 45.4 % (40-54) 05/29/24 14:08 Plt Count 248 K/mm3 (150-450) 05/29/24 14:08 CHEMISTRY Potassium 4.2 mmol/L (3.5-5.1) 05/29/24 14:08 Sodium 139 mmol/L (136-145) 05/29/24 14:08 BUN 21 mg/dL (7-18) H 05/29/24 14:08 Creatinine 0.91 mg/dL (0.70-1.30) 05/29/24 14:08 Glucose 106 mg/dL (74-106) 05/29/24 14:08 POC Glucose 133 mg/dL (74-106) H 06/14/24 06:23 COAG PT 15.1 SECONDS (11.7-14.9) H 11/14/21 15:11 Pre-Assessment Diagnosis/Proposed Procedure Planned Operative Procedure(s): REMVAL OF EXTERNAL FIXATOR OF THE LEFT ANKLE,LEFT ANKLE TALECTOMY LEFT TIBIOTAIOCALCANEAL ARTHRODESIS WITH USE OF A DAILY TRUSS AND INTERAMEDULLARY NAIL Anesthesia History Anesthesia History - kick plate installer: Anesthesia History - kick plate installer Hx Hospitalization Yes: 03/2024 FOR ANKLE 06/06/24 11:08 INFECTION Any Problems With Anesthesia No 06/06/24 11:08 Cholinesterase deficiency No 06/06/24 11:08 You/Your Family Experience No 06/06/24 11:08 fever (hyperthermia) with Relationship Recent Exposure to Contagious No 06/14/24 06:40 Disease Does patient have nerve No 06/06/24 11:08 stimulator Patient instructed to have device shut off --Does patient have Pacemaker No 06/14/24 06:43 or ICD? When Was Last Pacemaker Check QUESTION #4 FULL TEXT: You/Your Family Experience fever (hyperthermia) with Anesthesia Last Oral Intake Last Oral intake: Last Oral Intake NPO since 00:00 06/14/24 06:43 Meds taken in AM with sips of Yes 06/14/24 06:43 water? Meds patient instructed to losartan 06/14/24 06:43 take am of surgery PONV PONV - kick plate installer: PONV - kick plate installer Female No 06/06/24 11:08 HX of Motion Sickness No 06/06/24 11:08 HX of N/V After Surgery No 06/06/24 11:08 Non-Smoker Yes 06/06/24 11:08 Duration of Surgery greater Yes 06/06/24 11:08 than 60 minutes Number of Risk Factors 2 06/06/24 11:08 PONV Score Moderate Risk 06/06/24 11:08 Height & Weight Height & Weight: Anesthesia: Height & Weight Height 5 ft 10 in 06/14/24 06:43 Weight: 104.326 kg 06/14/24 06:43 Body Mass Index (BMI) 33.0 06/14/24 06:43 Respiratory Assessment Respiratory Assessment - kick plate installer: Respiratory Tract Infection Hx - kick plate installer Hx Respiratory Tract Infection No 06/06/24 11:08 STOP Sleep Apnea STOP Sleep Apnea - kick plate installer: STOP Sleep Apnea - kick plate installer Hx Hypertension Yes: CONTROLLED WITH MED 06/06/24 11:08 Hx Sleep Apnea No 06/06/24 11:08 CPAP BIPAP Do you snore loudly (louder Yes 06/06/24 11:08 than talking or can be heard Do you often feel tired/ No 06/06/24 11:08 fatigued/ sleepy during daytime? Has anyone observed you stop No 06/06/24 11:08 breathing during sleep? STOP Results Positive 06/06/24 11:08 QUESTION #5 FULL TEXT : Do you snore loudly (louder than talking or can be heard through closed doors)? Tobacco Use History Tobacco Use History - kick plate installer: Tobacco Use History - kick plate installer Tobacco Use Smoking Status Never smoker 06/06/24 11:08 Hx Tobacco Use No 06/06/24 11:08 Years Smoking Packs Smoked per Day Smoking Cessation Date was within the last 15 years Hx Smoking Cessation Date Hx Smoking Cessation Counseling Hematologic Medial History Hematologic Hx - kick plate installer: Hematologic Medical Hx - classification analyst Hx of Blood Transfusion No 06/06/24 11:08 Hx of Transfusion in last 3 No 06/06/24 11:08 Months Date of Last Transfusion (if within last 3 months) Ever experience any problems No 06/06/24 11:08 with transfusion(s)? Specify any problems Hx of Preganancy in last 3 N/A 06/06/24 11:08 Months Nurse Filling Out Transfusion [email or web address] 06/06/24 11:08 & Questions: Date: 06/06/24 06/06/24 11:08 Time: 11:09 06/06/24 11:08 Patient unable to answer at this time (ie. confused, unrespo /Reproduction History /Reproductive History - kick plate installer: /Reproductive Hx- kick plate installer Hx Now No 06/06/24 11:08 Gestational Age (in weeks): EDC: Hx Hx Para Hx Section SAB No 06/06/24 11:08 Active Medications Active Medications: Current Medications Generic Name Dose Route Start Last Admin Trade Name Freq PRN Reason Stop Dose Admin Cefazolin Sodium 2 gm/ N/A 20 mls @ 400 mls/hr 06/14/24 07:30 IV 06/14/24 07:32 PREOP ONE Lactated Ringer's 1,000 mls @ 15 mls/hr 06/14/24 06:15 06/14/24 06:42 IV 06/17/24 00:54 15 mls/hr .Q48H MAGDA Administration Protocol PFSH Medical History Uses wheelchair Walker as ambulation aid Non-smoker Non-pressure chronic ulcer of other part of left foot with necrosis of bone Hypertension Wears glasses Dietary restriction History of edema Hypertension Gas gangrene of foot Osteomyelitis of ankle or foot, left, acute Type 2 diabetes mellitus with diabetic polyneuropathy Home Medications ?Medication ?Instructions ?Recorded ?Last Taken ?Type multivitamin 1 tab PO DAILY SUPPLEMENT 11/24/21 06/13/24 History losartan 25 mg tablet 25 mg PO DAILY BLOOD PRESSURE 09/15/22 06/14/24 History semaglutide 14 mg tablet (Rybelsus) 14 mg PO DAILY DIABETES 07/06/23 03/12/24 History ascorbic acid (vitamin C) 1,000 mg 1,000 mg PO DAILY SUPPLEMENT 08/30/23 06/13/24 History tablet,extended release (C Complex) omega 2-arv-yyy-fish oil 300 2 cap PO DAILY SUPPLEMENT 08/30/23 06/13/24 History mg-1,000 mg capsule (Fish Oil) pravastatin 80 mg tablet 80 mg PO QHS CHOLESTEROL 08/30/23 06/13/24 History metformin 1,000 mg tablet 1,000 mg PO BID PRN DIABETES 06/06/24 Unknown History Allergy/AdvReac Type Severity Reaction Status Date / Time Penicillins (PCN) Allergy Rash Verified 06/06/24 11:05 Surgical History History of ankle surgery History of ankle surgery Hx of foot surgery Hx of foot surgery Hx of eye surgery Social History Smoking Status: Never smoker Review of Systems (Anesthesia) ROS Narrative System reviewed and no additional complaints, except as documented.
[2024-06-14] MEDS: Cefazolin 2 GM in Syringe IV (07:30)
--- NOTE | 2024-06-14 08:00 | RAD_ITS ---
STUDY: X-RAY - LEFT ANKLE REASON FOR EXAM: Male, 44 years old. PAIN TECHNIQUE: 2 view(s) of the ankle. COMPARISON: 12/06/2023 FINDINGS: 10 minutes of fluoroscopy of the left ankle was utilized operating RM during tibiotalar and hindfoot arthrodesis with an implant and intramedullary vance and 29 images are submitted for interpretation. . RAD/Ankle 2 Views IMPRESSION: Fluoroscopy during tibiotalar and hindfoot arthrodesis. Electronically Signed: Mayito Addison MD at 9:26 EST ,
[2024-06-14] MEDS: Bupivacaine Mpf 0.5% 30 ML VIAL (08:08)
--- NOTE | 2024-06-14 10:56 | PCM.OPRPT ---
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: (3) Other acute osteomyelitis, left ankle and foot: (4) Aftercare involving removal of external fixation device: Operative Report (Standard) Operative Information Surgery/Procedure Performed: 1) Removal External Fixation Device, Left Ankle 2) Talectomy Left Ankle 3) Revisional Tibiotalocalcaneal arthrodesis with application of custom Spherical Cage and retrograde intramedullary nail 4) Delayed primary Closure of left lateral ankle Ulceration Surgeon: Jordi Perkins Date of Procedure: 06/14/24 Procedure Start Time: : Procedure Stop Time: :30 Pre-Operative Diagnosis: 1) retained external fixation device 2) osteomyelitis talus left ankle 3) Charcot foot with deformity left ankle 4) chronic nonhealing ulceration left lateral ankle Post-Operative Diagnosis: Same Select all DRAINS/GRAFTS/IMPLANTS that apply: Graft Graft details: augment, allograft and Implanted device Implanted device details: 4web 40mm spehrical cage, 250mm nail x 11mm ([employer], [facility]), Type of Anesthesia: General Special Medications: 30 cc half percent Marcaine plain Estimated Blood Loss: 100 cc Specimen collected: No Description of surgery: Patient had failed TTC fusion via intramedullary nailing secondary to postoperative infection including talus osteomyelitis which required significant resection of the talus to clear the infection which created a void requiring custom implant formation via aspherical cage to be applied with a revisional TTC fusion via intramedullary nailing. Patient was brought back the operating room placed comfortably in supine position on the operating room table. Patient was induced under general anesthesia. All osseous prominences offloaded prevent any compression neuropraxia. Well-padded left thigh tourniquet was applied. Left lower extremity was positioned with a hip bump to knock on external rotation. The pin sites to the external fixation to device were prepped with Betadine paint and they were all cut the external fixator was removed and then the pin sites were aseptically removed after they were rewashed with Betadine paint to prevent any bacterial transposition into the bone. Next a formal prep was performed and the left lower extremity scrubbed prepped draped using typical aseptic fashion. Once cleared by anesthesia left lower extremity was elevated exsanguinated tourniquet was inflated to 300 mmHg. Through the a linear incision along the course of the distal fibula and lateral aspect of the talus and calcaneus the repeat incision was made full-thickness down to level of bone using a #10 blade. Any bleeders were identified cauterized at this time. Blunt dissection was taken to expose the residual talus as well as the defect. Any residual bone was curetted out and then full further resected using acetabular reaming using a stepwise fashion starting with a 38 mm reaming reamer all the way up to 40 mm. Once adequate talus resection was noted the revisional TTC fusion would be performed. The case was prepped with 2 spherical insert 1 was 40 mm in diameter and the other was 42. Due to adequate alignment and positioning with the 4 mL 40 mm implant decision was made to use this after testing with the test or implants. The test implants were removed and then a guidepin was placed with the foot ankle held in a rectus position relative to the leg running from the plantar calcaneus into the tibia. At this point stepwise reaming was performed up to 12-1/2 mm along the course of a 250 mm length from the plantar calcaneus into the tibia. Fluoroscopic imaging was used throughout this entire portion to ensure no loss of alignment or breakthrough of the tibial cortex occurred. At this time the 40 mm spherical implant was placed using manufactures guidelines and a 250 mm intramedullary nail straight nail valor nail from [employer] was placed from the plantar calcaneus through the spherical cage into the tibia using manufactures guidelines with the foot and ankle held in a rectal rectus position relative to the leg maintaining length of the leg as well due to application of the spherical cage. Prior to application of the spherical cage was packed with augment and additional bone allograft. Fluoroscopic imaging was used to confirm placement of the nail and all screws were placed placing the nail in a static orientation as compression was not needed. All screws were placed using manufactures guidelines including 3 proximal tibial screws 1 lateral calcaneal screw and 1 posterior calcaneal screw. At this time tourniquet was let down. Any bleeders were identified cauterized. Incisional sites were flushed with copious amounts of normal sterile saline. Final radiographs were taken. Incisional closure was performed with 2-0 Vicryl to the medial ankle incisions followed by pop-off sutures to the lateral ankle using simple interrupted buried technique. Skin closure was performed with robinson. Incisional sites were dressed with Betadine Adaptic 4 x 4's Kerlix and a well-padded AO splint with the foot foot and ankle held in a rectus position. Total tourniquet time was 2 hours Blood loss was approximately 100 cc Patient was transferred to the PACU vital signs stable vascular status intact all digits for further monitoring prior to discharge patient tolerated procedure and anesthesia well apparent satisfactory condition. No complications. Adequate reduction of deformity with maintaining limb length secondary to use of custom 3D printed spherical cage and application of intramedullary nail. Hemostasis noted as well. 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
--- NOTE | 2024-06-14 11:47 | PCM.POST.ANE ---
Anesthesia: Postop Eval I Current Vital Signs Temperature: 98.2 F Pulse Rate: 87 Blood Pressure: 100/57 Respiratory Rate: 14 Pulse Ox: 93 Oxygen Delivery Method: Room Air Assessment Airway patent: Yes Spontaneous unlabored respirations: Yes Mental status: Awake and Calm nausea: No Vomiting: No Anesthesia Complication: No Fluid Hydration Crystalloid volume administer (ml): 700 Total IV fluid infused: 700 Progress Note Anesthesia document: Postop Eval 1 completed: Yes
[2024-06-14 12:55] LABS: Bedside Glucose 187 mg/dL (74-106)
--- NOTE | 2024-06-15 11:18 | PCM.POSTANE2 ---
Anesthesia Postop Eval I Sum Postop Eval Completion status Anesthesia document: Postop Eval 1 completed: Yes Anesthesia Postop Eval I Summary Anesthesia Postop Eval I Summary: Anesthesia Postop Eval I: Assessment Summary Airway patent Yes 06/14/24 11:48 [email or web address] Spontaneous unlabored Yes 06/14/24 11:48 [email or web address] respirations Mental status Awake,Calm 06/14/24 11:48 [email or web address] nausea No 06/14/24 11:48 [email or web address] Vomiting No 06/14/24 11:48 [email or web address] Anesthesia Postop Eval I: Fluid Summary Crystalloid volume administer 700 06/14/24 11:48 [email or web address] (ml) Colloids volume administered ( ml) Blood Product volume administered (ml) Total IV fluid infused 700 06/14/24 11:48 [email or web address] Anesthesia Postop Eval I: Summary Notes Anesthesia Complication No 06/14/24 11:48 [email or web address] Anesthesia Complication Comment: Post-operative progress note Anesthesia: Postop Eval II Evaluation Mental status: Awake and Calm Pain Level: 2 nausea: No Vomiting: No Complications Anesthesia Complication: No
== END 2024-06-14 13:38 | disposition home or self-care (01) ==
LOC: SDC 05:59 → AC 05:59
PROVIDERS: PCP Student in an Organized Health Care Education/Training Program; Referring Provider Podiatrist; Visit Provider Podiatrist
PROC: (CPT 27870; principal; 2024-06-14 07:15)
DX: M86.172 Other acute osteomyelitis, left ankle and foot (principal); L97.324 Non-pressure chronic ulcer of left ankle with necrosis of bone; E11.621 Type 2 diabetes mellitus with foot ulcer; E11.42 Type 2 diabetes mellitus with diabetic polyneuropathy; M14.672 Charcot's joint, left ankle and foot; I10 Essential (primary) hypertension; Z88.0 Allergy status to penicillin; Z79.84 Long term (current) use of oral hypoglycemic drugs; Z79.899 Other long term (current) drug therapy
CPT/HCPCS: 27870; 28725; 20694; 01480; 73600; 76000; 82962; C1713; J2405

== ENCOUNTER 2024-06-26 09:17 | Outpatient (RCR) | payer BC, SELFPAY ==
[2024-06-26 09:23] VITALS: BP 106/78; PULSE 91; RESP 14; TEMP 36.4
--- NOTE | 2024-06-26 10:10 | WC ---
Post surgical check. No issues at this time. Wounds painted with Betadine,adaptic,abd and 3M wrap.
--- NOTE | 2024-06-26 14:23 | WC ---
PHOTO LLE POSTOP 06/26/24
--- NOTE | 2024-06-26 14:24 | WC ---
PHOTO 06/26/24 LLE POSTOP
--- NOTE | 2024-06-26 14:24 | WC ---
PHOTO 06/26/24 LLE POSTOP
== END 2024-06-26 10:48 | disposition home or self-care (01) ==
LOC: WC 09:17
PROVIDERS: PCP Student in an Organized Health Care Education/Training Program; Referring Provider Podiatrist; Visit Provider Podiatrist
DX: Z09 Encounter for follow-up examination after completed treatment for conditions other than malignant neoplasm (principal); E11.9 Type 2 diabetes mellitus without complications
CPT/HCPCS: 29581; 99213; G0463

== ENCOUNTER → 2025-01-17 | Outpatient (CLI) | payer BC, SELFPAY ==
[2025-01-17 17:38] LABS: Absolute Lymphocyte Count 1.29 X10^3/uL (0.83-4.51); Absolute Neutrophil Count 3.5 X10^3/uL (2.0-7.7); Basophil# 0.04 X10^3/uL; Basophil% 0.7 % (0-1); Eosinophil# 0.52 X10^3/uL; Eosinophils% 8.7 % (0-5); Hemoglobin 12.9 g/dL (13.0-16.5); Lymphocyte # 1.29 X10^3/ul (0.83-4.51); Lymphocyte % 21.5 % (19-41); Mean Corp Hgb Conc 32.3 g/dL (32-36); Mean Corpuscular Hgb 25.5 pg (27.0-32.0); Mean Corpuscular Volume 79.2 fL (80-94); Mean Platelet Vol. 9.5 fl (6.2-12.0); Monocyte# 0.55 X10^3/uL; Monocyte% 9.2 % (0-10); NRBC Flagged by Analyzer 0 % (0-5); Neutrophil # 3.54 X10^3/uL (2.7-7.7); Neutrophil % 59.1 % (47-70); Platelet Count 292 K/mm3 (150-450); RBC Distribution Width CV 15.5 % (11.6-14.6); RBC Distribution Width SD 44.1 fl (35.1-43.9); Red Blood Count 5.05 M/mm3 (4.6-6.2)
[2025-01-17 17:56] LABS: ALB/GLOB Ratio 1.3 RATIO (0.9-2.4); AST(SGOT) 28 U/L (<=37); Alanine Aminotransfer ALT/SGPT 27 U/L (<=46); Albumin, Serum 4.1 g/dL (3.5-5.0); Alkaline Phosphatase 149 U/L (40-129); Anion Gap 11 (5-15); BUN 18 mg/dL (4-19); BUN/Creat Ratio 21.5 RATIO (10-20); Calcium,Total 9.6 mg/dL (7.6-11.0); Carbon Dioxide 26.4 mmol/L (21.0-32.0); Chloride 101 mmol/L (98-108); Creatinine, Serum 0.84 mg/dL (0.70-1.20); EST Glomerular Filtration Rate 112 (>60); Globulin 3.2 g/dL (2.2-4.2); Glucose 148 mg/dL (70-99); Potassium 4.2 mmol/L (3.3-5.1); Protein, Total 7.3 g/dL (5.9-8.4); Sodium Level 139 mmol/L (133-145); Total Bilirubin 0.38 mg/dL (0.00-1.30)
[2025-01-17 17:59] LABS: Hemoglobin A1c 8.3 % (<=5.6)
[2025-01-17 18:01] LABS: Erythrocyte Sedimentation Rate 12 mm/hr (0-20)
== END | disposition home or self-care (01) ==
LOC: LAB.FUTURE 16:27 → LAB 16:28
PROVIDERS: PCP Student in an Organized Health Care Education/Training Program; Referring Provider Podiatrist; Visit Provider Podiatrist
DX: M25.571 Pain in right ankle and joints of right foot (principal)
CPT/HCPCS: 36415; 80053; 83036; 85025; 85652; 86140

== ENCOUNTER 2025-02-04 05:50 | Day surgery (SDC) | payer BC, SELFPAY ==
--- NOTE | 2025-01-30 09:08 | PAT.ANESEVAL ---
Pre-Assessment Diagnosis/Proposed Procedure Planned Operative Procedure(s): (L) Left Bone marrow aspirate concentrate harvest, Deep hardware removal, Tibiocalcaneal arthrodesis, Application of a external fixator, Partial osteotomy of the mid-tarsal bones, Surgical skin graft site prep with application of a skin graft substitute. 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 When Was Last Pacemaker Check QUESTION #4 FULL TEXT: You/Your Family Experience fever (hyperthermia) with Anesthesia Last Oral Intake Last Oral intake: Last Oral Intake NPO since Meds taken in AM with sips of water? Meds patient instructed to take am of surgery PONV PONV - rental sales representative: PONV - rental sales representative Female No 01/25/25 11:26 HX of Motion Sickness No 01/25/25 11:26 HX of N/V After Surgery No 01/25/25 11:26 Non-Smoker Yes 01/25/25 11:26 Duration of Surgery greater Yes 01/25/25 11:26 than 60 minutes Number of Risk Factors 2 01/25/25 11:26 PONV Score Moderate Risk 01/25/25 11:26 Height & Weight Height & Weight: Anesthesia: Height & Weight Height 5 ft 10 in 06/14/24 06:43 Respiratory Assessment Respiratory Assessment - rental sales representative: Respiratory Tract Infection Hx - rental sales representative Hx Respiratory Tract Infection No 01/25/25 11:26 STOP Sleep Apnea STOP Sleep Apnea - rental sales representative: STOP Sleep Apnea - rental sales representative Hx Hypertension Yes: CONTROLLED WITH MED 01/25/25 11:26 Hx Sleep Apnea No 01/25/25 11:26 CPAP BIPAP Do you snore loudly (louder No 01/25/25 11:26 than talking or can be heard Do you often feel tired/ No 01/25/25 11:26 fatigued/ sleepy during daytime? Has anyone observed you stop No 01/25/25 11:26 breathing during sleep? STOP Results Negative 01/25/25 11:26 QUESTION #5 FULL TEXT : Do you snore loudly (louder than talking or can be heard through closed doors)? 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 Specify any problems Hx of Preganancy in last 3 N/A 01/25/25 11:26 Months Nurse Filling Out Transfusion AVILA 01/25/25 11:26 & Questions: Date: 01/25/25 01/25/25 11:26 Time: 11:28 01/25/25 11:26 Patient unable to answer at this time (ie. confused, unrespo /Reproduction History /Reproductive History - rental sales representative: /Reproductive Hx- rental sales representative Hx Now Gestational Age (in weeks): EDC: Hx Hx Para Hx Section SAB No 06/06/24 11:08 [facility] Medical History (Updated 01/25/25 @ 11:35 by Tayla Pederson) Diabetes Ambulates with cane High cholesterol Walker as ambulation aid Non-smoker Non-pressure chronic ulcer of other part of left foot with necrosis of bone Hypertension Wears glasses Dietary restriction History of edema Hypertension Gas gangrene of foot Osteomyelitis of ankle or foot, left, acute Type 2 diabetes mellitus with diabetic polyneuropathy Home Medications ?Medication ?Instructions ?Recorded ?Last Taken ?Type multivitamin 1 tab PO DAILY SUPPLEMENT 11/24/21 06/13/24 History losartan 25 mg tablet 25 mg PO DAILY BLOOD PRESSURE 09/15/22 06/14/24 History semaglutide 14 mg tablet (Rybelsus) 14 mg PO DAILY DIABETES 07/06/23 03/12/24 History ascorbic acid (vitamin C) 1,000 mg 1,000 mg PO DAILY SUPPLEMENT 08/30/23 06/13/24 History tablet,extended release (C Complex) omega 6-rnj-icb-fish oil 300 2 cap PO DAILY SUPPLEMENT 08/30/23 06/13/24 History mg-1,000 mg capsule (Fish Oil) pravastatin 80 mg tablet 80 mg PO QHS CHOLESTEROL 08/30/23 06/13/24 History metformin 1,000 mg tablet 1,000 mg PO BID PRN DIABETES 06/06/24 Unknown History aspirin 81 mg tablet,delayed 162 mg (2 x 81 mg) PO DAILY #30 06/14/24 Unknown Rx release tabs Allergy/AdvReac Type Severity Reaction Status Date / Time Penicillins (PCN) Allergy Rash Verified 01/25/25 11:22 Surgical History History of ankle surgery History of ankle surgery Hx of foot surgery Hx of foot surgery Hx of eye surgery Social History Smoking Status: Never smoker Recommendation Anesthesia Recommendation Anesthesia recommendation: F/U recommended (Please contact surgeon with A1C results and seek clearance from surgeon. A1C > 8 will impair wound healing, platelet aggregation, etc -- ensure surgeon is aware and is still willing to proceed)
--- NOTE | 2025-01-30 11:58 | PAT.ANESEVAL ---
Pre-Assessment Diagnosis/Proposed Procedure Planned Operative Procedure(s): (L) Left Bone marrow aspirate concentrate harvest, Deep hardware removal, Tibiocalcaneal arthrodesis, Application of a external fixator, Partial osteotomy of the mid-tarsal bones, Surgical skin graft site prep with application of a skin graft substitute. 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 When Was Last Pacemaker Check QUESTION #4 FULL TEXT: You/Your Family Experience fever (hyperthermia) with Anesthesia Last Oral Intake Last Oral intake: Last Oral Intake NPO since Meds taken in AM with sips of water? Meds patient instructed to take am of surgery PONV PONV - sourcing consultant: PONV - sourcing consultant Female No 01/25/25 11:26 HX of Motion Sickness No 01/25/25 11:26 HX of N/V After Surgery No 01/25/25 11:26 Non-Smoker Yes 01/25/25 11:26 Duration of Surgery greater Yes 01/25/25 11:26 than 60 minutes Number of Risk Factors 2 01/25/25 11:26 PONV Score Moderate Risk 01/25/25 11:26 Height & Weight Height & Weight: Anesthesia: Height & Weight Height 5 ft 10 in 06/14/24 06:43 Respiratory Assessment Respiratory Assessment - sourcing consultant: Respiratory Tract Infection Hx - sourcing consultant Hx Respiratory Tract Infection No 01/25/25 11:26 STOP Sleep Apnea STOP Sleep Apnea - sourcing consultant: STOP Sleep Apnea - sourcing consultant Hx Hypertension Yes: CONTROLLED WITH MED 01/25/25 11:26 Hx Sleep Apnea No 01/25/25 11:26 CPAP BIPAP Do you snore loudly (louder No 01/25/25 11:26 than talking or can be heard Do you often feel tired/ No 01/25/25 11:26 fatigued/ sleepy during daytime? Has anyone observed you stop No 01/25/25 11:26 breathing during sleep? STOP Results Negative 01/25/25 11:26 QUESTION #5 FULL TEXT : Do you snore loudly (louder than talking or can be heard through closed doors)? 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 Specify any problems Hx of Preganancy in last 3 N/A 01/25/25 11:26 Months Nurse Filling Out Transfusion AVILA 01/25/25 11:26 & Questions: Date: 01/25/25 01/25/25 11:26 Time: 11:28 01/25/25 11:26 Patient unable to answer at this time (ie. confused, unrespo /Reproduction History /Reproductive History - sourcing consultant: /Reproductive Hx- sourcing consultant Hx Now Gestational Age (in weeks): EDC: Hx Hx Para Hx Section SAB No 06/06/24 11:08 [facility] Medical History (Updated 01/25/25 @ 11:35 by Tayla Pederson) Diabetes Ambulates with cane High cholesterol Walker as ambulation aid Non-smoker Non-pressure chronic ulcer of other part of left foot with necrosis of bone Hypertension Wears glasses Dietary restriction History of edema Hypertension Gas gangrene of foot Osteomyelitis of ankle or foot, left, acute Type 2 diabetes mellitus with diabetic polyneuropathy Home Medications ?Medication ?Instructions ?Recorded ?Last Taken ?Type multivitamin 1 tab PO DAILY SUPPLEMENT 11/24/21 06/13/24 History losartan 25 mg tablet 25 mg PO DAILY BLOOD PRESSURE 09/15/22 06/14/24 History semaglutide 14 mg tablet (Rybelsus) 14 mg PO DAILY DIABETES 07/06/23 03/12/24 History ascorbic acid (vitamin C) 1,000 mg 1,000 mg PO DAILY SUPPLEMENT 08/30/23 06/13/24 History tablet,extended release (C Complex) omega 8-ebb-puq-fish oil 300 2 cap PO DAILY SUPPLEMENT 08/30/23 06/13/24 History mg-1,000 mg capsule (Fish Oil) pravastatin 80 mg tablet 80 mg PO QHS CHOLESTEROL 08/30/23 06/13/24 History metformin 1,000 mg tablet 1,000 mg PO BID PRN DIABETES 06/06/24 Unknown History aspirin 81 mg tablet,delayed 162 mg (2 x 81 mg) PO DAILY #30 06/14/24 Unknown Rx release tabs Allergy/AdvReac Type Severity Reaction Status Date / Time Penicillins (PCN) Allergy Rash Verified 01/25/25 11:22 Surgical History History of ankle surgery History of ankle surgery Hx of foot surgery Hx of foot surgery Hx of eye surgery Social History Smoking Status: Never smoker Recommendation Anesthesia Recommendation Anesthesia recommendation: OPTIMIZED for anesthesia
[2025-02-04] VITALS (12 sets, daily range): BP systolic 94–117; BP diastolic 54–76; PULSE 92–103; RESP 12–16; TEMP 35.6–36.8; O2SAT 89–98; BMI 35.9
--- OUTSIDE RECORDS SUMMARY | 2025-02-04 05:54 | XMS RPT_ITS | CCD ---
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 Liliane Epps Primary Care Provider [phone] MD Agustin Alfaro Emergency Provider Dr. Luke Garnett Admit Provider Dr. Luke Garnett Attending Provider Dr. Luke Garnett Other Provider Dr. Jordi Perkins Other Provider Dr. Mikael Maynard Other Provider Dr. Emil Julien Attending Provider Dr. Emil Julien Other Provider Xavier PHYSICAL GEOGRAPHER, PHYSICAL GEOGRAPHER-C Saba Other Provider Dr. Alma Saba Referring Provider [phone] Dr. Mikael Maynard Attending Provider Dr. Yoan Vee Other Provider Dr. Zain Shields Other Provider Dr. Zain Shields Attending Provider [phone] LILIANE EPPS DO Primary Care Physician [phone] Dr. Liliane Epps Primary Care Provider [phone] Dr. Jordi Perkins Other Provider Parrish PHYSICAL GEOGRAPHER, PHYSICAL GEOGRAPHER-C June E Attending Provider Parrish PHYSICAL GEOGRAPHER, PHYSICAL GEOGRAPHER-C June E Referring Provider Dr. Liliane Epps Primary Care Provider Dr. Jordi Perkins Other Provider Parrish PHYSICAL GEOGRAPHER, PHYSICAL GEOGRAPHER-C June E Attending Provider Parrish PHYSICAL GEOGRAPHER, PHYSICAL GEOGRAPHER-C June E Referring Provider Dr. Liliane Epps Primary Care Provider [phone] Dr. Jordi Perkins Admit Provider Dr. Jordi Perkins Referring Provider Dr. Jordi Perkins Other Provider Arriaga, Marely Other Provider Unavailable Dr. Joy Horn Other Provider [phone] Cameron Julien Other Provider [phone] Yuliya Reed Other Provider [phone] Dr. Isamar Lester Other Provider [phone] [place] PHYSICAL GEOGRAPHER, PHYSICAL GEOGRAPHER-C Rowena Other Provider Unavail able Street PHYSICAL GEOGRAPHER, PHYSICAL GEOGRAPHER-C Luke Other Provider [phone] [place], [place] Liliana Other Provider Unavailable Dr. Alma Saba Attending Provider Dr. Liliane Epps Primary Care Provider [phone] Dr. Jordi Perkins Admit Provider Dr. Jordi Perkins Referring Provider Dr. Jordi Perkins Other Provider Arriaga, Marely Other Provider Unavailable Dr. Joy Horn Other Provider [phone] Julien Other Provider Dr. Yuliya Reed Other Provider [phone] Dr. Isamar Lester Other Provider [phone] [place] PHYSICAL GEOGRAPHER, PHYSICAL GEOGRAPHER-C Rowena Other Provider Unavail able Street PHYSICAL GEOGRAPHER, PHYSICAL GEOGRAPHER-C Luke Other Provider [phone] [place], [place] Liliana Other Provider Unavailable Dr. Alma Saba Attending Provider Dr. Liliane Epps Primary Care Provider [phone] Dr. Jordi Perkins Admit Provider Dr. Jordi Perkins Other Provider Dr. Joy Horn Other Provider Dr. Cameron Julien Other Provider Dr. Yuliya Reed Other Provider Dr. Isamar Lester Other Provider Dannie PHYSICAL GEOGRAPHER, PHYSICAL GEOGRAPHER-C Rowena Other Provider Unavail able Megan, PHYSICAL GEOGRAPHER-C Alexandra Other Provider Jad PHYSICAL GEOGRAPHER, PHYSICAL GEOGRAPHER-C Luke Other Provider ROCÍO Garber Other Provider ROCÍO Sandhu Other Provider Unavailable Dr. Markel Miranda Attending Provider Unavailab Dr. Wojciech Lew Attending Provider Unavailable Dr. Wojciech Bowman Other Provider Unavailable LILIANE EPPS DO Attending Unavailable LILIANE EPPS DO Primary Care Unavailable Dr. Liliane Epps Primary Care Provider Dr. Jordi Perkins Referring Provider Dannie PHYSICAL GEOGRAPHER, PHYSICAL GEOGRAPHER-C Rowena Other Provider Dr. Jordi Talley Emergency Provider Boris, Dr. Angélica Scott Admit Provider Dr. Angélica Escalante Attending Provider Dr. Angélica Escalante Other Provider Dr. Yoan Vee Other Provider ALEX McelroyC Cary Hendrickson Attending Provider Dr. Terry Rice Attending Provider Dr. Terry Rice Other Provider Dr. Liliane Lim Attending Provider Xavier PHYSICAL GEOGRAPHER, PHYSICAL GEOGRAPHER-C Saba Attending Provider Dr. Barbara Ray Referring Provider Dr. Barbara Ray Other Provider [phone] Dr. Yoan Vee Referring Provider Dr. Liliane Epps Primary Care Provider Dr. Jordi Perkins Admit Provider Dr. Jordi Perkins Referring Provider Dr. Jordi Perkins Other Provider Dr. Joy Horn Other Provider Dr. Cameron Julien Other Provider Dr. Yuliya Reed Other Provider Dr. Isamar Lester Other Provider Dannie PHYSICAL GEOGRAPHER, PHYSICAL GEOGRAPHER-C Rowena Other Provider Megan, PHYSICAL GEOGRAPHER-C Alexandra Other Provider Jad PHYSICAL GEOGRAPHER, PHYSICAL GEOGRAPHER-C Luke Other Provider ROCÍO Garber Other Provider ROCÍO Sandhu Other Provider Unavailable Dr. Markel Miranda Attending Provider Unavailab Dr. Wojciech Lew Attending Provider Unavailable Dr. Wojciech Bowman Other Provider Unavailable Dr. Jordi Talley Emergency Provider Dr. Angélica Escalante Admit Provider Dr. Angélica Escalante Attending Provider Dr. Angélica Escalante Other Provider Dr. Yoan Vee Other Provider Lilibeth, CLAIRE-C Cary Hendrickson Attending Provider Dr. Terry Rice Attending Provider Dr. Terry Rice Other Provider Dr. Liliane Lim Attending Provider Xavier PHYSICAL GEOGRAPHER, PHYSICAL GEOGRAPHER-C Saba Attending Provider Dr. Barbara Ray Referring Provider Dr. Barbara Ray Other Provider Dr. Yoan Vee Referring Provider Parrish PHYSICAL GEOGRAPHER, PHYSICAL GEOGRAPHER-C June Mosley Attending Provider [phone] Parrish PHYSICAL GEOGRAPHER, PHYSICAL GEOGRAPHER-C June Mosley Referring Provider Dahlia, Dr. Fernandes Primary Care Provider Gregorio, Dr. Bacon Other Provider Dr. Jordi Perkins Referring Provider TREYKO DO, LILIANE Attending Unavailable HALKO DO, LILIANE Primary Care Unavailable HALKO DO, LILIANE Primary Care Unavailable HALKO DO, LILIANE Attending Unavailable Halcliff DO, Dr. Fernandes Primary Care Provider Gregorio DPM, Dr. Bacon Attending Provider Gregorio DPM, Dr. Bacon Referring Provider Jordi Perkins Admitting Unavailable Jordi Perkins Referring Unavailable Halko, Liliane Primary Care Unavailable Yogesh, Nash Attending Unavailable Yogesh, Nash Consulting Unavailable Tereletsky, Luke Consulting Unavailable Mariusz, Yoan Consulting Unavailable Jordi Perkins Consulting Unavailable Cary Mcelroy Attending Unavailable Jordi Perkins Referring Unavailable Halko, Liliane Primary Care Unavailable Liliane Lim Attending Unavailable Halko, Liliane Primary Care Unavailable MariuszYoan Referring Unavailable Yoan Vee Attending Unavailable Halko, Liliane Primary Care Unavailable Yoan Vee Referring Unavailable Yoan Vee Attending Unavailable Jordi Perkins Attending Unavailable Jordi Perkins Referring Unavailable Halko, Liliane Primary Care Unavailable GregorioJordi morton Referring Unavailable Jordi Perkins Attending Unavailable Halko, Liliane Primary Care Unavailable Jordi Perkins Attending Unavailable Jordi Perkins Referring Unavailable HalkoLiliane Consulting Unavailable Halko, Liliane Primary Care Unavailable Jordi Perkins Admitting Unavailable Jordi Perkins Referring Unavailable Halko, Liliane Primary Care Unavailable Tereletsky, Luke Consulting Unavailable TereletskyLuke Attending Unavailable MariuszYoan Consulting Unavailable Jordi Perkins Consulting Unavailable Jordi Perkins Referring Unavailable GregorioJordi morton Attending Unavailable Halko, Liliane Primary Care Unavailable Halko, Liliane Primary Care Unavailable MariuszYoan Referring Unavailable Yoan Vee Attending Unavailable Jordi Perkins Attending Unavailable Jordi Perkins Referring Unavailable Halko, Liliane Primary Care Unavailable Jordi Perkins Attending Unavailable Jordi Perkins Referring Unavailable Halko, Liliane Primary Care Unavailable Jordi Perkins Attending Unavailable Jordi Perkins Referring Unavailable Halko, Liliane Primary Care Unavailable Yogesh, Nash Consulting Unavailable Jordi Perkins Admitting Unavailable Jordi Perkins Referring Unavailable Jordi Perkins Attending Unavailable Halko, Liliane Primary Care Unavailable Luke Garnett Consulting Unavailable Yoan Vee Consulting Unavailable Dudley Hightower Referring Unavailable Halko, Liliane Primary Care Unavailable Dudley Hightower Attending Unavailable Halko, Liliane Primary Care Unavailable Yoan Vee Referring Unavailable Yoan Vee Attending Unavailable Jordi Perkins Attending Unavailable Jordi Perkins Referring Unavailable Halko, Liliane Primary Care Unavailable Yoan Vee Attending Unavailable Halko, Liliane Primary Care Unavailable Yoan Vee Referring Unavailable Jordi Perkins Referring Unavailable Jordi Perkins Attending Unavailable Halko, Liliane Primary Care Unavailable Jordi Perkins Admitting Unavailable Jordi Perkins Referring Unavailable Halko, Liliane Primary Care Unavailable Yogesh, Nash Consulting Unavailable Yogesh, Nash Attending Unavailable Luke Garnett Consulting Unavailable Yoan Vee Consulting Unavailable Jordi Perkins Consulting Unavailable Allergies Allergy Classification Reported Allergen(s) Allergy Type Date of Onset Reaction(s) Facility Penicillins (antibiotic) (1 source) Penicillins Drug Allergy 10-24-2020 [facility] Work Phone: (20 sources) Penicillins; Translations: [Penicillins] Allergy to substance 11-14-2021 [facility] (5 sources) Penicillin; Translations: [penicillin] Drug Allergy [facility] Medications Current Medications Medication Drug Class(es) Dates Sig (Normalized) Sig (Original) acetaminophen 325 mg / oxyCODONE hydrochloride 5 mg oral tablet (1 source) Opioid Agonist Start: 06-14-2024 take 1 tablet by mouth every four hours as needed for pain Oxycodone-Acetami nophen (Percocet) 5-325 mg tablet Active 1 {tbl} PO Q4H as needed for pain 42 7 June 14, 2024 Sjzur-Foba-Nerft-Karie ag-Mv-Min (Galo (With Collagen)) 7-7-1.5 gram Powder In Packet (20 sources) Start: 11-21-2021 Xbntw-Txkk-Tqchc- Rzeirw-Hv-Amu (Galo (With Collagen)) 7-7-1.5 gram Powder In Packet Active 1 PACKET PO TWICE DAILY WITH MEALS November 21, 2021 9:54am Start: 11-21-2021 Hszpf-Phcx-Jom wz-Opnzkz-Ke-Min (Galo (With Collagen)) 7-7-1.5 gram Powder In Packet Active 1 PACKET PO TWICE DAILY WITH MEALS November 20, 2021 11:00pm Start: 11-21-2021 Tiryu-Hvlg-Pqc en-Mxrtld-Kr-Min (Galo (With Collagen)) 7-7-1.5 gram Powder In Packet Active 1 PACKET PO TWICE DAILY WITH MEALS November 21, 2021 12:00am ascorbic acid 1000 mg extended release oral tablet (20 sources) Vitamin C Start: 08-30-2023 take 1 tablet by mouth once daily Ascorbic Acid (Vitamin C) (C Complex) 1,000 mg tablet extended release Active 1000 mg PO DAILY August 30, 2023 1:00am Start: 11-24-2021 End: 08-30-2023 take 1 tablet by mouth once daily Ascorbic Acid (Vitamin C) (Vitamin C) 500 mg Tablet Discontinued 500 mg PO DAILY November 24, 2021 12:00am August 30, 2023 12:25pm aspirin 81 mg delayed release oral tablet (20 sources) Platelet Aggregation Inhibitor, Nonsteroidal Anti-inflammatory Drug Start: 06-14-2024 take 2 tablets by mouth once daily Aspirin 81 mg tablet,delayed release (DR/EC) Active 162 mg PO DAILY June 14, 2024 1:00am Start: 03-21-2024 aspirin 81 mg oral delayed release tablet Dose : 81 mg = 1 tab(s), Oral, Daily, 0 Refill(s) Start Date: 03/21/24 Status: Ordered Repeat number: 1 Start: 06-15-2022 End: 09-18-2022 take 1 tablet by mouth once daily Aspirin 81 mg Tablet Discontinued 81 mg PO DAILY June 15, 2022 1:00am September 18, 2022 10:17am calcium citrate 500 mg oral tablet (20 sources) Start: 05-28-2024 take 1 tablet by mouth twice daily Citracal 500 mg oral tablet Oral, BID, 0 Refill(s) Start Date: 05/28/24 Status: Ordered Repeat number: 1 Start: 11-24-2021 End: 02-21-2024 take 1 tablet by mouth once daily Calcium Citrate 200 mg (950 mg) Tablet Discontinued 200 mg PO DAILY November 24, 2021 12:00am February 21, 2024 10:59am Start: 11-24-2021 take 1 tablet by carleen th once daily Calcium Citrate (Citracal) 200 mg (950 mg) Tablet Active MG PO DAILY November 23, 2021 11:00pm DME MISCellaneous (5 sources) Start: 03-21-2020 DME MISCellane ous See Instructions, apply 4 telfa pads 2x/day; dispense #200, 2 refills; dx S81.809A, # 200 EA, 2 Refill(s), Pharmacy: [facility] [[email or web address], Multiple open wounds of lower leg, 182, cm, 03/21/20 9:23:00 EDT, Height, 136.4, kg, 03/21/20 9:23:00 EDT, Dosing Weight Start Date: 03/21/20 Status: Ordered Quantity: 200.0 Unit: EA Repeat number: 3 Indication: Unspecified open wound, unspecified lower leg, initial encounter Start: 03-21-2020 DME MISCellane ous See Instructions, apply 4 telfa pads 2x/day; dispense #200, 2 refills; dx S81.809A, # 200 EA, 2 Refill(s), Pharmacy: [facility] [[email or web address]] [facility], Multiple open wounds of lower leg, 182, cm, 03/21/20 9:23:00 EDT, Height, 136.4, kg, 03/21/20 9:23:00 EDT, Dosing Weight Start Date: 03/21/20 Status: Ordered Start: 03-21-2020 DME MISCellane ous See Instructions, apply 4 telfa pads 2x/day; dispense #200, 2 refills; dx S81.809A, # 200 EA, 2 Refill(s), [facility], Multiple open wounds of lower leg, 182, cm, 03/21/20 9:23:00 EDT, Height, 136.4, kg, 03/21/20 9:23:00 EDT, Do... Start Date: 03/21/20 Status: Ordered [place] 9-Bpb-Spd-Fish Oil (11 sources) Start: 08-30-2023 [place] 3-Dha-Ep a-Fish Oil (Fish Oil) 300-1,000 mg capsule Active 2 NMA PO DAILY August 30, 2023 1:00am Start: 08-30-2023 take 300-1000 mg by mouth once daily [place] 1-Zse-Oeb-Fish Oil (Fish Oil) 300-1,000 mg capsule Active 2 CAP PO DAILY August 30, 2023 1:00am Start: 08-30-2023 take 300-1000 mg by mouth once daily [place] 2-Ruv-Gqv-Fish Oil (Fish Oil) 300-1,000 mg capsule Active 2 CAP PO DAILY August 30, 2023 12:00am empagliflozin 25 mg oral tablet (20 sources) Sodium-Glucose Cotransporter 2 Inhibitor Start: 10-21-2021 End: 04-19-2022 take 1 tablet by mouth once daily Empagliflozin (Jardiance) 25 mg tablet Active 25 MG PO DAILY November 13, 2021 11:00pm 0.4 ml enoxaparin sodium 100 mg/ml prefilled syringe (4 sources) Low Molecular Weight Heparin Start: 09-18-2022 Enoxaparin Active 40 MG SC DAILY September 18, 2022 12:00am start medication on 09/20/22 ertapenem 1000 mg injection (11 sources) Penem Antibacterial Start: 11-19-2021 Ertapenem (Invanz) 1 gram recon soln Active 1 GM IV Q24H 39 November 19, 2021 12:00am stop date 12/29/21 dx: L foot osteomyelitis weekly bmp, cbc, LFT, esr, and vanc trough. Fax to [phone] routine picc care with heparin/saline flush per protocol Fish Oils (1 source) Start: 05-28-2024 Fish Oil 1000 mg oral capsule mg = cap(s), Oral, 0 Refill(s) Start Date: 05/28/24 Status: Ordered Repeat number: 1 sodium hypochlorite 2.5 mg/ml topical solution (1 source) Start: 11-21-2021 Sodium Hypochlorite (Hysept) 0.25 % Solution Active 1 APPLIC TOPICAL DAILY 473 November 21, 2021 9:53am lisinopril 10 mg oral tablet (20 sources) Angiotensin Converting Enzyme Inhibitor Start: 10-21-2021 End: 04-19-2022 take 10 mg by mouth once daily Lisinopril Active 10 MG PO DAILY November 13, 2021 11:00pm losartan potassium 25 mg oral tablet (18 sources) Angiotensin 2 Receptor Madeleine Start: 09-15-2022 End: 12-14-2024 losartan 25 mg oral tablet Dose : 25 mg = 1 tab(s), Oral, qDay, # 100 tab(s), 1 Refill(s), Pharmacy: [facility], 180, cm, 03/23/24 13:27:00 EDT, Height, kg, 03/23/24 13:27:00 EDT, Dosing Weight Start Date: 05/28/24 Stop Date: 12/14/24 Status: Ordered Quantity: 100.0 Unit: tab(s) Repeat number: 2 metFORMIN hydrochloride 1000 mg oral tablet (20 sources) Biguanide Start: 05-28-2024 End: 12-14-2024 take 1 tablet by mouth twice daily as needed for diabetes mellitus Metformin 1,000 mg tablet Active 1000 mg PO TWICE A DAY as needed for DIABETES June 06, 2024 12:00am Start: 11-14-2021 Metformin Acti ve MG TWICE A DAY November 14, 2021 2:54pm Start: 11-14-2021 Metformin Acti ve MG November 14, 2021 2:54pm Start: 10-21-2021 End: 12-13-2023 take 1 tablet by mouth twice daily Metformin 1,000 mg tablet Discontinued 1000 mg PO TWICE A DAY November 14, 2021 12:00am December 13, 2023 9:47am Multivitamin preparation (20 sources) Start: 05-28-2024 take 1 tablet by mouth once daily Multivitamin Dose = 1 tab(s), Oral, Daily, 0 Refill(s) Start Date: 05/28/24 Status: Ordered Repeat number: 1 Start: 11-24-2021 take 1 tablet by carleen once daily Multivitamin Active 1 TABLET PO DAILY November 24, 2021 10:52am Start: 11-24-2021 take 1 tablet by carleen th once daily Multivitamin Active 1 TABLET PO DAILY November 23, 2021 11:00pm Start: 11-24-2021 take 1 tablet by carleen th once daily Multivitamin Active 1 TABLET PO DAILY November 24, 2021 12:00am Multivitamin Tablet (1 source) Start: 11-24-2021 Multivitamin T ablet Active 1 {tbl} PO DAILY November 24, 2021 12:00am [place]-3 Fatty Acids (Fish Oil) Capsule (15 sources) Start: 11-24-2021 take 2 capsules by mouth once daily [place]-3 Fatty Acids (Fish Oil) Capsule Active 2 CAP PO DAILY November 24, 2021 10:52am Start: 11-24-2021 take 2 capsules by m outh once daily [place]-3 Fatty Acids (Fish Oil) Capsule Active 2 CAP PO DAILY November 23, 2021 11:00pm Start: 11-24-2021 take 2 capsules by m outh once daily [place]-3 Fatty Acids (Fish Oil) Capsule Active 2 CAP PO DAILY November 24, 2021 12:00am oxyCODONE hydrochloride 5 mg oral capsule (4 sources) Opioid Agonist Start: 09-18-2022 take 5 mg by mouth every four hours Oxycodone Active 5 MG PO Q4H 42 7 September 18, 2022 pravastatin sodium 80 mg oral tablet (20 sources) HMG-CoA Reductase Inhibitor Start: 05-04-2023 End: 12-14-2024 pravastatin 80 mg oral tablet Dose : 80 mg = 1 tab(s), Oral, qHS, # 100 tab(s), 1 Refill(s), Pharmacy: [facility], 180, cm, 03/23/24 13:27:00 EDT, Height, kg, 03/23/24 13:27:00 EDT, Dosing Weight Start Date: 05/28/24 Stop Date: 12/14/24 Status: Ordered Quantity: 100.0 Unit: tab(s) Repeat number: 2 Start: 11-14-2021 Pravastatin Ac tive AT BEDTIME November 14, 2021 2:54pm Start: 11-14-2021 End: 08-30-2023 take 2 tablets by mouth at bedtime Pravastatin 40 mg tablet Discontinued 80 mg PO AT BEDTIME November 14, 2021 12:00am August 30, 2023 12:22pm Start: 11-14-2021 End: 08-30-2023 take 80 mg by mouth at bedtime Pravastatin Discontinue d 80 MG PO AT BEDTIME November 14, 2021 12:00am August 30, 2023 12:22pm Start: 11-12-2021 End: 07-20-2022 take 40 mg by mouth at bedtime Pravastatin Active 40 M G PO AT BEDTIME November 13, 2021 11:00pm semaglutide 14 mg oral table t (14 sources) Start: 05-28-2024 End: 12-14-2024 Rybelsus 14 mg oral tablet D ose : 14 mg = 1 tab(s), Oral, qDay, take at least 30 minutes before first food, beverage, or other oral meds, # 100 tab(s), 1 Refill(s), Pharmacy: [facility], 180, cm, 03/23/24 13:27:00 EDT, Height, kg, 03/23/24 13:27:00 EDT, Dosing Weight Start Date: 05/28/24 Stop Date: 12/14/24 Status: Ordered Quantity: 100.0 Unit: tab(s) Repeat number: 2 Start: 06-15-2023 End: 12-12-2023 take 1 tablet by mouth once daily Semaglutide (Rybelsus) 14 mg tablet Active 14 MG PO DAILY July 06, 2023 1:00am Start: 03-25-2023 End: 06-23-2023 Rybelsus 7 mg oral tablet Do se : 7 mg = 1 tab(s), Oral, qDay, discontinue 3 mg rx on file; take at least 30 minutes before first food, beverage, or other oral meds, # 90 tab(s), 0 Refill(s), Pharmacy: [facility], 180, cm, 10/29/22 13:31:00 EDT, Height, kg, 10/29/22 13:31:00 EDT, Dosing Weight Start Date: 03/25/23 Stop Date: 06/23/23 Status: Ordered Semaglutide (Rybelsus) 14 mg tablet (1 source) Start: 07-06-2023 take 1 tablet by mouth once daily Semaglutide (Rybelsus) 14 mg tablet Active 14 mg PO DAILY July 06, 2023 1:00am telfa pads non adherent (4 sources) Start: 03-21-2020 telfa pads non adherent telfa pads non adherent, 0 Refill(s), 133 Start Date: 03/21/20 Status: Ordered Completed/Discontinued Medications Medication Drug Class(es) Dates Sig (Normalized) Sig (Original) cephalexin 750 mg oral capsule (1 source) Cephalosporin Antibacterial Start: 03-06-2024 End: 03-16-2024 take 1 capsule by mouth twice daily Cephalexin 750 mg capsule Discontinued 750 mg PO TWICE A DAY March 06, 2024 12:00am March 16, 2024 11:40am ciprofloxacin 750 mg oral tablet (20 sources) Quinolone Antimicrobial Start: 07-16-2023 End: 08-23-2023 take 1 tablet by mouth twice daily Ciprofloxacin Hcl 750 mg tablet Discontinued 750 mg PO TWICE A DAY July 16, 2023 1:00am August 23, 2023 11:03am Start: 11-14-2021 End: 11-19-2021 Ciprofloxacin Hcl 750 mg tab let Discontinued TWICE A DAY November 14, 2021 12:00am November 19, 2021 10:21am Start: 11-14-2021 End: 11-19-2021 Ciprofloxacin Hcl Discontinu ed TWICE A DAY November 14, 2021 12:00am November 19, 2021 10:21am doxycycline hyclate 100 mg oral capsule (12 sources) Tetracycline-class Drug Start: 07-16-2023 End: 08-23-2023 take 1 capsule by mouth twice daily Doxycycline Hyclate 100 mg capsule Discontinued 100 mg PO TWICE A DAY July 16, 2023 1:00am August 23, 2023 11:03am levoFLOXacin 500 mg oral tablet (1 source) Quinolone Antimicrobial Start: 02-21-2024 End: 03-16-2024 take 1 tablet by mouth once daily Levofloxacin 500 mg tablet Discontinued 500 mg PO DAILY February 21, 2024 12:00am March 16, 2024 11:40am linezolid 600 mg oral tablet (1 source) Oxazolidinone Antibacterial Start: 03-06-2024 End: 03-16-2024 take 1 tablet by mouth twice daily Linezolid 600 mg tablet Discontinued 600 mg PO TWICE A DAY March 06, 2024 12:00am March 16, 2024 11:40am meropenem 1000 mg injection (11 sources) Penem Antibacterial Start: 09-05-2023 End: 02-21-2024 Meropenem 1 gram Recon Soln Discontinued 1 g IV EVERY 8 HOURS 114 38 September 05, 2023 1:00am February 21, 2024 10:59am stop date 10/13/23. Dx foot osteo. Weekly bmp, cbc, LFT, and esr; fax to [phone] [place]-3 Fatty Acids (15 sources) Start: 11-24-2021 End: 08-30-2023 take 2 capsules by mouth once daily [place]-3 Fatty Acids Discontinued 2 CAP PO DAILY November 24, 2021 12:00am August 30, 2023 12:23pm Start: 11-24-2021 End: 08-30-2023 take 2 capsules by mouth once daily [place]-3 Fatty Acids Discontinued 2 CAP PO DAILY November 23, 2021 11:00pm August 30, 2023 11:23am Start: 11-24-2021 take 2 capsules by m outh once daily [place]-3 Fatty Acids Active 2 CAP PO DAILY November 24, 2021 12:00am Start: 11-24-2021 take 2 capsules by m outh once daily [place]-3 Fatty Acids Active 2 CAP PO DAILY November 23, 2021 11:00pm [place]-3 Fatty Acids Capsule (1 source) Start: 11-24-2021 End: 08-30-2023 [place]-3 Fatty Acids Capsule Discontinued 2 NMA PO DAILY November 24, 2021 12:00am August 30, 2023 12:23pm vancomycin 1000 mg injection (12 sources) Glycopeptide Antibacterial Start: 03-16-2024 End: 06-06-2024 Vancomycin 1,000 mg Recon Soln Discontinued 1250 mg IV Q8H 114 38 March 16, 2024 12:00am June 06, 2024 11:05am stop date 04/24/24. Dx: ankle osteo. Weekly bmp, cbc, vanc trough, and ESR. Fax to [phone] Routine picc care per protocol Start: 11-19-2021 Vancomycin Act evy 1.25 GM IV Q12H 78 November 19, 2021 12:00am stop date 12/29/21 dx: L foot osteomyelitis weekly bmp, cbc, LFT, esr, and vanc trough. Fax to [phone] routine picc care with heparin/saline flush per protocol Problems Active Problems Problem Classification Problem Date Documented Date Episodic/Chronic Acquired foot deformities (18 sources) Acquired varus deformity of right ankle; Translations: [Varus deformity, not elsewhere classified, right ankle] 09-17-2022 Episodic Acute and unspecified renal failure (20 sources) Injury of kidney; Translations: [Acute kidney failure, unspecified] Episodic Chronic ulcer of skin (20 sources) Chronic ulcer of foot; Translations: [Non-pressure chronic ulcer of other part of left foot with necrosis of bone] Onset: 05-04-2024 Chronic Deficiency and other anemia (2 sources) History of diabetic foot ulcer 10-29-2022 Episodic Diabetes mellitus with complications (20 sources) Type 2 diabetes mellitus; Translations: [Type 2 diabetes mellitus with diabetic polyneuropathy] Onset: 05-07-2024 Chronic Diabetes mellitus without complication (1 source) Diabetes mellitus 09-16-2023 Chronic Disorders of lipid metabolism (5 sources) Mixed hyperlipidemia 05-17-2019 Chronic Essential hypertension (20 sources) Benign essential hypertension; Translations: [Hypertensive disorder] Onset: 05-07-2024 05-17-2019 Chronic Fluid and electrolyte disorders (20 sources) Acute hyponatremia; Translations: [Hypo-osmolality and hyponatremia] Episodic Genitourinary symptoms and ill-defined conditions (1 source) Microalbuminuria 09-16-2023 Episodic Infective arthritis and osteomyelitis (except that caused by tuberculosis or sexually transmitted disease) (20 sources) Acute osteomyelitis of ankle and/or foot; Translations: [Other acute osteomyelitis, left ankle and foot] Onset: 05-07-2024 Chronic Open wounds of extremities (3 sources) Multiple open wounds of lower leg 03-21-2020 Episodic Other aftercare (1 source) Follow-up status; Translations: [Encounter for other orthopedic aftercare] 06-14-2024 Episodic Other circulatory disease (1 source) Peripherally inserted central venous catheter in situ 09-16-2023 Chronic Other connective tissue disease (11 sources) Abscess of bursa; Translations: [Abscess of bursa, left ankle and foot] 08-30-2023 Episodic Other diseases of veins and lymphatics (3 sources) Chronic peripheral venous hypertension with lower extremity complication 03-18-2020 Chronic Other diseases of veins and lymphatics (5 sources) Lymphedema of bilateral lower limbs 03-17-2020 Chronic Other diseases of veins and lymphatics (2 sources) Venous hypertension 10-29-2022 Episodic Other endocrine disorders (3 sources) Hypoglycemia 06-25-2020 Chronic Other nervous system disorders (2 sources) 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 Chronic Other nervous system disorders (2 sources) Polyneuropathy 10-29-2022 Chronic Other nervous system disorders (16 sources) Acute postoperative pain; Translations: [Other acute postprocedural pain] 09-18-2022 Episodic Other non-traumatic joint disorders (20 sources) Charcot arthropathy of midfoot; Translations: [Charcot's joint, unspecified ankle and foot] 11-24-2021 Chronic Other non-traumatic joint disorders (20 sources) Charcot's joint, unspecified ankle and foot; Translations: [Tabes dorsalis] Chronic Other non-traumatic joint disorders (15 sources) Charcot's joint of foot 06-04-2019 Chronic Other non-traumatic joint disorders (17 sources) Charcot's arthropathy; Translations: [Charcot's joint, right ankle and foot] 09-17-2022 Chronic Other non-traumatic joint disorders (9 sources) Charcot's joint, right ankle and foot; Translations: [Tabes dorsalis] 09-18-2022 Chronic Other non-traumatic joint disorders (2 sources) Charcot's joint, left ankle and foot; Translations: [Charcot's joint, left ankle and foot] Onset: 05-07-2024 Chronic Other non-traumatic joint disorders (5 sources) Swelling of knee joint 04-25-2020 Episodic Other non-traumatic joint disorders (1 source) Pain in right ankle and joints of right foot; Translations: [Pain in right ankle and joints of right foot] Onset: 01-23-2025 Episodic Other nutritional; endocrine; and metabolic disorders (4 sources) Obesity 06-04-2019 Chronic Other nutritional; endocrine; and metabolic disorders (2 sources) Body mass index 30+ - obesity 05-04-2023 Chronic Other nutritional; endocrine; and metabolic disorders (1 source) Morbid obesity 05-04-2023 Chronic Other nutritional; endocrine; and metabolic disorders (1 source) Metabolic syndrome X 09-16-2023 Chronic Other screening for suspected conditions (not mental disorders or infectious disease) (2 sources) Viral screening status 10-29-2022 Episodic Peripheral and visceral atherosclerosis (2 sources) Peripheral vascular disease 01-06-2023 Chronic Residual codes; unclassified (5 sources) Edema of right lower leg 03-18-2020 Episodic Residual codes; unclassified (5 sources) Immunization due 06-25-2020 Episodic Residual codes; unclassified (2 sources) Screening due 10-29-2022 Episodic Retinal detachments; defects; vascular occlusion; and retinopathy (5 sources) Retinal disorder 06-04-2019 Chronic Screening and history of mental health and substance abuse codes (2 sources) Tobacco use and exposure - finding 10-29-2022 Chronic Septicemia (except in labor) (20 sources) Sepsis; Translations: [Sepsis, unspecified organism] Episodic Unclassified (13 sources) Patient encounter status 10-21-2021 Past or Other Problems Problem Classification Problem Date Documented Date Episodic/Chronic Bacterial infection; unspecified site (20 sources) Gas gangrene; Translations: [Gas gangrene] Onset: 05-07-2024 Episodic Complication of device; implant or graft (2 sources) Bone fixation device infection; Translations: [Infection and inflammatory reaction due to other internal orthopedic prosthetic devices, implants and grafts, initial encounter] Onset: 05-04-2024 03-20-2024 Episodic Other aftercare (1 source) Encounter for follow-up examination after completed treatment for conditions other than malignant neoplasm; Translations: [Encounter for follow-up examination after completed treatment for conditions other than malignant neoplasm] Onset: 08-10-2024 Episodic Other connective tissue disease (20 sources) Abscess of bursa, left ankle and foot; Translations: [Other disorders of synovium, tendon, and bursa] Onset: 05-07-2024 08-30-2023 Episodic Other connective tissue disease (1 source) Pain in left foot; Translations: [Pain in left foot] Onset: 07-30-2024 Episodic Other nervous system disorders (20 sources) Other acute postprocedural pain; Translations: [Other acute postoperative pain] Onset: 05-07-2024 10-06-2023 Episodic Skin and subcutaneous tissue infections (20 sources) Cellulitis; Translations: [Cellulitis, unspecified] Onset: 05-04-2024 Episodic Results Test Name Value Interpretation Reference Range Facility MR/PATGiulia 01-30-2025 MR/PAT.TATYANA [facility] Medical Records Department [address] [place] [address] PAT - Anesthesia 01/30/25 1158 MR#: [id number] Acct: [id number] Name: SNEHA WEI Rep #: [id number] : 1980 44 From: Manoj Vargas MD PCP: Dr. Liliane Epps, DO Status:PRE SDC Y Race: C Location: [facility] Pre-Assessment Diagnosis/Proposed Procedure Planned Operative Procedure(s): (L) Left Bone marrow aspirate concentrate harvest, Deep hardware removal, Tibiocalcaneal arthrodesis, Application of a external fixator, Partial osteotomy of the mid-tarsal bones, Surgical skin graft site prep with application of a skin graft substitute. Anesthesia History Anesthesia History - care aid: Anesthesia History - care aid Hx Hospitalization No 01/25/25 11:26 Any Problems With Anesthesia No 01/25/25 11:26 Cholinesterase deficiency No 01/25/25 11:26 You/Your Family Experience No 01/25/25 11:26 fever (hyperthermia) with Relationship Recent Exposure to Contagious No 06/14/24 06:40 Disease Does patient have nerve No 01/25/25 11:26 stimulator Patient instructed to have device shut off --Does patient have Pacemaker or ICD? When Was Last Pacemaker Check QUESTION #4 FULL TEXT: You/Your Family Experience fever (hyperthermia) with Anesthesia Last Oral Intake Last Oral intake: Last Oral Intake NPO since Meds taken in AM with sips of water? Meds patient instructed to take am of surgery PONV PONV - care aid: PONV - care aid Female No 01/25/25 11:26 HX of Motion Sickness No 01/25/25 11:26 HX of N/V After Surgery No 01/25/25 11:26 Non-Smoker Yes 01/25/25 11:26 Duration of Surgery greater Yes 01/25/25 11:26 than 60 minutes Number of Risk Factors 2 01/25/25 11:26 PONV Score Moderate Risk 01/25/25 11:26 Height Weight Height Weight: Anesthesia: Height Weight Height 5 ft 10 in 06/14/24 06:43 Respiratory Assessment Respiratory Assessment - care aid: Respiratory Tract Infection Hx - care aid Hx Respiratory Tract Infection No 01/25/25 11:26 STOP Sleep Apnea STOP Sleep Apnea - care aid: STOP Sleep Apnea - care aid Hx Hypertension Yes: CONTROLLED WITH MED 01/25/25 11:26 Hx Sleep Apnea No 01/25/25 11:26 CPAP BIPAP Do you snore loudly (louder No 01/25/25 11:26 than talking or can be heard Do you often feel tired/ No 01/25/25 11:26 fatigued/ sleepy during daytime? Has anyone observed you stop No 01/25/25 11:26 breathing during sleep? STOP Results Negative 01/25/25 11:26 QUESTION #5 FULL TEXT : Do you snore loudly (louder than talking or can be heard through closed doors)? Tobacco Use History Tobacco Use History - care aid: Tobacco Use History - care aid Tobacco Use Smoking Status Never smoker 01/25/25 11:26 Hx Tobacco Use No 01/25/25 11:26 Years Smoking Packs Smoked per Day Smoking Cessation Date was within the last 15 years Hx Smoking Cessation Date Hx Smoking Cessation Counseling Hematologic Medial History Hematologic Hx - care aid: Hematologic Medical Hx - button reclaimer Hx of Blood Transfusion No 01/25/25 11:26 Hx of Transfusion in last 3 No 01/25/25 11:26 Months Date of Last Transfusion (if within last 3 months) Ever experience any problems No 01/25/25 11:26 with transfusion(s)? Specify any problems Hx of Preganancy in last 3 N/A 01/25/25 11:26 Months Nurse Filling Out Transfusion MGRIFFITH 01/25/25 11:26 Questions: Date: 01/25/25 01/25/25 11:26 Time: 11:01/25/25 11:26 Patient unable to answer at this time (ie. confused, unrespo /Reproductio n History /Reproductiv e History - care aid: /Reproductiv e Hx- care aid Hx Now Gestational Age (in weeks): EDC: Hx Hx Para Hx Section SAB No 06/06/24 11:08 [facility] Medical History (Updated 01/25/25 @ 11:35 by Tayla Pederson) Diabetes Ambulates with cane High cholesterol Walker as ambulation aid Non-smoker Non-pressure chronic ulcer of other part of left foot with necrosis of bone Hypertension Wears glasses Dietary restriction History of edema Hypertension Gas gangrene of foot Osteomyelitis of ankle or foot, left, acute Type 2 diabetes mellitus with diabetic polyneuropathy Home Medications ???Medication ???Instructions ???Recorded ???Last Taken ???Type multivitamin 1 tab PO DAILY SUPPLEMENT 11/24/21 06/13/24 History losartan 25 mg tablet 25 mg PO DAILY BLOOD PRESSURE 03/3006/14/24 History semaglutide 14 mg tablet (Rybelsus) 14 mg PO DAILY DIABE (more content not included)... Normal [facility] MR/PAT.ANE [facility] Medical Records Department [address] [place] [address] PAT - Anesthesia 01/30/25 0908 MR#: [id number] Acct: [id number] Name: ERIBERTOSNEHA Jr. Rep #: [id number] : 1980 44 From: Manoj Vargas MD PCP: Dr. Liliane Epps, DO Status:PRE [facility] Y Race: C Location: [facility] Pre-Assessment Diagnosis/Proposed Procedure Planned Operative Procedure(s): (L) Left Bone marrow aspirate concentrate harvest, Deep hardware removal, Tibiocalcaneal arthrodesis, Application of a external fixator, Partial osteotomy of the mid-tarsal bones, Surgical skin graft site prep with application of a skin graft substitute. Anesthesia History Anesthesia History - care aid: Anesthesia History - care aid Hx Hospitalization No 01/25/25 11:26 Any Problems With Anesthesia No 01/25/25 11:26 Cholinesterase deficiency No 01/25/25 11:26 You/Your Family Experience No 01/25/25 11:26 fever (hyperthermia) with Relationship Recent Exposure to Contagious No 06/14/24 06:40 Disease Does patient have nerve No 01/25/25 11:26 stimulator Patient instructed to have device shut off --Does patient have Pacemaker or ICD? When Was Last Pacemaker Check QUESTION #4 FULL TEXT: You/Your Family Experience fever (hyperthermia) with Anesthesia Last Oral Intake Last Oral intake: Last Oral Intake NPO since Meds taken in AM with sips of water? Meds patient instructed to take am of surgery PONV PONV - care aid: PONV - care aid Female No 01/25/25 11:26 HX of Motion Sickness No 01/25/25 11:26 HX of N/V After Surgery No 01/25/25 11:26 Non-Smoker Yes 01/25/25 11:26 Duration of Surgery greater Yes 01/25/25 11:26 than 60 minutes Number of Risk Factors 2 01/25/25 11:26 PONV Score Moderate Risk 01/25/25 11:26 Height Weight Height Weight: Anesthesia: Height Weight Height 5 ft 10 in 06/14/24 06:43 Respiratory Assessment Respiratory Assessment - care aid: Respiratory Tract Infection Hx - care aid Hx Respiratory Tract Infection No 01/25/25 11:26 STOP Sleep Apnea STOP Sleep Apnea - care aid: STOP Sleep Apnea - care aid Hx Hypertension Yes: CONTROLLED WITH MED 01/25/25 11:26 Hx Sleep Apnea No 01/25/25 11:26 CPAP BIPAP Do you snore loudly (louder No 01/25/25 11:26 than talking or can be heard Do you often feel tired/ No 01/25/25 11:26 fatigued/ sleepy during daytime? Has anyone observed you stop No 01/25/25 11:26 breathing during sleep? STOP Results Negative 01/25/25 11:26 QUESTION #5 FULL TEXT : Do you snore loudly (louder than talking or can be heard through closed doors)? Tobacco Use History Tobacco Use History - care aid: Tobacco Use History - care aid Tobacco Use Smoking Status Never smoker 01/25/25 11:26 Hx Tobacco Use No 01/25/25 11:26 Years Smoking Packs Smoked per Day Smoking Cessation Date was within the last 15 years Hx Smoking Cessation Date Hx Smoking Cessation Counseling Hematologic Medial History Hematologic Hx - care aid: Hematologic Medical Hx - button reclaimer Hx of Blood Transfusion No 01/25/25 11:26 Hx of Transfusion in last 3 No 01/25/25 11:26 Months Date of Last Transfusion (if within last 3 months) Ever experience any problems No 01/25/25 11:26 with transfusion(s)? Specify any problems Hx of Preganancy in last 3 N/A 01/25/25 11:26 Months Nurse Filling Out Transfusion AVILA 01/25/25 11:26 Questions: Date: 01/25/25 01/25/25 11:26 Time: 11:01/25/25 11:26 Patient unable to answer at this time (ie. confused, unrespo /Reproductio n History /Reproductiv e History - care aid: /Reproductiv e Hx- care aid Hx Now Gestational Age (in weeks): EDC: Hx Hx Para Hx Section SAB No 06/06/24 11:08 [facility] Medical History (Updated 01/25/25 @ 11:35 by Tayla Pederson) Diabetes Ambulates with cane High cholesterol Walker as ambulation aid Non-smoker Non-pressure chronic ulcer of other part of left foot with necrosis of bone Hypertension Wears glasses Dietary restriction History of edema Hypertension Gas gangrene of foot Osteomyelitis of ankle or foot, left, acute Type 2 diabetes mellitus with diabetic polyneuropathy Home Medications ???Medication ???Instructions ???Recorded ???Last Taken ???Type multivitamin 1 tab PO DAILY SUPPLEMENT 11/24/21 06/13/24 History losartan 25 mg tablet 25 mg PO DAILY BLOOD PRESSURE 02/0 03/3006/14/24 History semaglutide 14 mg tablet (Rybelsus) 14 mg PO DAILY DIABE (more content not included)... Normal [facility] Absolute lymphocyte countOrd ered By: Jordi Perkins on 01-17-2025 Lymphocytes Auto (Unsp spec) [#/Vol] 1.29 10*3/uL 0.83-4.51 [facility] Absolute neutrophil countOrd ered By: Jordi Perkins on 01-17-2025 Neutrophils (Bld) [#/Vol] 3.5 10*3/uL 2.0-7.7 [facility] Anion gap in Serum or Plasma Ordered By: Jordi Perkins on 01-17-2025 Anion gap [Moles/Vol] 11 mmol/L 5-15 [facility] Automated lymphocyte count a s percentage of total leukocytesOrdered By: Jordi Perkins on 01-17-2025 Lymphocytes/100 WBC Auto (Unsp spec) 21.5 % 19-41 [facility] BUN/creatinine ratioOrdered By: Jordi Perkins on 01-17-2025 Urea nitrogen/Creatinine [Mass ratio] 21.5 mg/mg High 10-20 [facility] Basophil percentageOrdered B y: Jordi Perkins on 01-17-2025 Basophils/100 WBC (Bld) 0.7 % 0-1 [facility] Bilirubin, totalOrdered By: Jordi Perkins on 01-17-2025 Bilirubin [Mass/Vol] 0.38 mg/dL 0.00-1.30 [facility] CBC W/Diff, Automatedon 01-06-2024 Absolute Lymph 1.29 X10 3/uL Normal 0.83-4.51 [facility] Comment on above: Performed By: #### M 100.1999, M300.2000, M300.3000, M100.4001, M100.3000, M600.2200, M600.1999 #### [facility] [address] [place], [address] Absolute Neut 3.5 X10 3/uL Normal 2.0-7.7 [facility] Comment on above: Performed By: #### M 100.1999, M300.2000, M300.3000, M100.4001, M100.3000, M600.2200, M600.1999 #### [facility] [address] [place], [address] Basophils/100 WBC (Bld) 0.7 % Normal 0-1 [facility] Comment on above: Performed By: #### M 100.1999, M300.2000, M300.3000, M100.4001, M100.3000, M600.2200, M600.1999 #### [facility] [address] [place], [address] Eosinophils/100 WBC (Bld) 8.7 % High 0-5 [facility] Comment on above: Performed By: #### M 100.2000, M300.2000, M300.3000, M100.4001, M100.3000, M600.2200, M600.1999 #### [facility] [address] [place], [address] Erythrocyte distribution width (RBC) [Ratio] 15.5 % High 11.6-14.6 [facility] Comment on above: Performed By: #### M 100.1999, M300.2000, M300.3000, M100.4001, M100.3000, M600.2200, M600.1999 #### [facility] [address] [place], [address] Hematocrit (Bld) [Volume fraction] 40.0 % Normal 40-54 [facility] Comment on above: Performed By: #### M 100.1999, M300.2000, M300.3000, M100.4001, M100.3000, M600.2200, M600.1999 #### [facility] [address] [place], [address] Hemoglobin (Bld) [Mass/Vol] 12.9 g/dL Low 13.0-16.5 [facility] Comment on above: Performed By: #### M 100.1999, M300.2000, M300.3000, M100.4001, M100.3000, M600.2200, M600.1999 #### [facility] [address] [place], [address] IG% 0.800 Normal 0.0-0.9 [facility] Comment on above: Result Comment: IG% - Immature Granulocytes (promyelocytes, myelocytes and metamyelocytes) > 1% indicates that a LEFT SHIFT is Present. Performed By: #### M 100.1999, M300.2000, M300.3000, M100.4001, M100.3000, M600.2200, M600.1999 #### [facility] [address] [place], [address] Lymphocytes/100 WBC (Bld) 21.5 % Normal 19-41 [facility] Comment on above: Performed By: #### M 100.1999, M300.2000, M300.3000, M100.4001, M100.3000, M600.2200, M600.1999 #### [facility] [address] [place], [address] MCH (RBC) [Entitic mass] 25.5 pg Low 27.0-32.0 [facility] Comment on above: Performed By: #### M 100.1999, M300.2000, M300.3000, M100.4001, M100.3000, M600.2200, M600.1999 #### [facility] [address] [place], [address] MCHC (RBC) [Mass/Vol] 32.3 g/dL Normal 32-36 [facility] Comment on above: Performed By: #### M 100.1999, M300.2000, M300.3000, M100.4001, M100.3000, M600.2200, M600.1999 #### [facility] [address] [place], [address] MCV (RBC) [Entitic vol] 79.2 fL Low 80-94 [facility] Comment on above: Performed By: #### M 100.1999, M300.2000, M300.3000, M100.4001, M100.3000, M600.2200, M600.1999 #### [facility] [address] [place], [address] Monocytes/100 WBC (Bld) 9.2 % Normal 0-10 [facility] Comment on above: Performed By: #### M 100.1999, M300.2000, M300.3000, M100.4001, M100.3000, M600.2200, M600.1999 #### [facility] [address] [place], [address] Neutrophils/100 WBC (Bld) 59.1 % Normal 47-70 [facility] Comment on above: Performed By: #### M 100.1999, M300.2000, M300.3000, M100.4001, M100.3000, M600.2200, M600.1999 #### [facility] [address] [place], [address] Nucleated RBC (Bld) [#/Vol] 0 10*3/uL Normal 0-5 [facility] Comment on above: Performed By: #### M 100.1999, M300.2000, M300.3000, M100.4001, M100.3000, M600.2200, M600.1999 #### [facility] [address] [place], [address] Platelet mean volume (Bld) [Entitic vol] 9.5 fL Normal 6.2-12.0 [facility] Comment on above: Performed By: #### M 100.1999, M300.2000, M300.3000, M100.4001, M100.3000, M600.2200, M600.1999 #### [facility] [address] [place], [address] Platelets (Bld) [#/Vol] 292 10*3/uL Normal 150-450 [facility] Comment on above: Performed By: #### M 100.1999, M300.2000, M300.3000, M100.4001, M100.3000, M600.2200, M600.1999 #### [facility] [address] [place], [address] RBC (Bld) [#/Vol] 5.05 10*6/uL Normal 4.6-6.2 [facility] Comment on above: Performed By: #### M 100.1999, M300.2000, M300.3000, M100.4001, M100.3000, M600.2200, M600.1999 #### [facility] [address] [place], [address] RDW SD 44.1 fl High 35.1-43.9 [facility] Comment on above: Performed By: #### M 100.1999, M300.2000, M300.3000, M100.4001, M100.3000, M600.2200, M600.1999 #### [facility] [address] [place], [place], [id number] WBC (Bld) [#/Vol] 6.0 10*3/uL Normal 4.4-11.0 [facility] Comment on above: Performed By: #### M 100.1999, M300.2000, M300.3000, M100.4001, M100.3000, M600.2200, M600.1999 #### [facility] [address] [place], [place], [id number] CRPon 01-17-2025 C-REACTIVE PROT 17.60 mg/L High 0.0-3.0 [facility] Comment on above: Performed By: #### M 100, M300.1999, M300.3000, M100.4001, M100.3000, M600.2200, M600.1999 #### [facility] [address] [place], [place], [id number] Carbon dioxide, total [Moles /volume] in Central venous bloodOrdered By: Jordi Perkins on 01-17-2025 CO2 [Moles/Vol] 26.4 mmol/L 21.0-32.0 [facility] Chloride assayOrdered By: Hitesh Perkins on 01-17-2025 Chloride [Moles/Vol] 101 mmol/L 98-108 [facility] Comprehensive Metabolic Prof ilon 01-17-2025 Albumin [Mass/Vol] 4.1 g/dL Normal 3.5-5.0 [facility] Comment on above: Performed By: #### M 100.1999, M300.1999, M300.3000, M100.4001, M100.3000, M600.2200, M600.1999 #### [facility] [address] [place], [place], [id number] Albumin/Globulin [Mass ratio] 1.3 {ratio} Normal 0.9-2.4 [facility] Comment on above: Performed By: #### M 100.1999, M300.2000, M300.3000, M100.4001, M100.3000, M600.2200, M600.1999 #### [facility] [address] [place], [address] ALK PHOS 149 U/L High 40-129 [facility] Comment on above: Performed By: #### M 100.1999, M300.2000, M300.3000, M100.4001, M100.3000, M600.2200, M600.1999 #### [facility] [address] [place], [address] ALT [Catalytic activity/Vol] 27 U/L Normal <=46 [facility] Comment on above: Performed By: #### M , M300.1999, M300.3000, M100.4001, M100.3000, M600.2200, M600.1999 #### [facility] [address] [place], [address] AST [Catalytic activity/Vol] 28 U/L Normal <=37 [facility] Comment on above: Performed By: #### M 100.1999, M300.2000, M300.3000, M100.4001, M100.3000, M600.2200, M600.1999 #### [facility] [address] [place], [address] Bilirubin [Mass/Vol] 0.38 mg/dL Normal 0.00-1.30 [facility] Comment on above: Performed By: #### M 100, M300.2000, M300.3000, M100.4001, M100.3000, M600.2200, M600.1999 #### [facility] [address] [place], [address] BUN/CRE 21.5 RATIO High 10-20 [facility] Comment on above: Performed By: #### M 100.1999, M300.2000, M300.3000, M100.4001, M100.3000, M600.2200, M600.1999 #### [facility] [address] [place], [address] Calcium [Mass/Vol] 9.6 mg/dL Normal 7.6-11.0 [facility] Comment on above: Performed By: #### M 100.1999, M300.2000, M300.3000, M100.4001, M100.3000, M600.2200, M600.1999 #### [facility] [address] [place], [address] Chloride [Moles/Vol] 101 mmol/L Normal 98-108 [facility] Comment on above: Performed By: #### M 100, M300.1999, M300.3000, M100.4001, M100.3000, M600.2200, M600.1999 #### [facility] [address] [place], [address] CO2 [Moles/Vol] 26.4 mmol/L Normal 21.0-32.0 [facility] Comment on above: Performed By: #### M 100.1999, M300.2000, M300.3000, M100.4001, M100.3000, M600.2200, M600.1999 #### [facility] [address] [place], [address] Creatinine [Mass/Vol] 0.84 mg/dL Normal 0.70-1.20 [facility] Comment on above: Performed By: #### M 100.1999, M300.2000, M300.3000, M100.4001, M100.3000, M600.2200, M600.1999 #### [facility] [address] [place], [address] GAP 11 Normal 5-15 [facility] Comment on above: Performed By: #### M 100.1999, M300.2000, M300.3000, M100.4001, M100.3000, M600.2200, M600.1999 #### [facility] [address] [place], [address] GFR/1.73 sq M.predicted among non-blacks MDRD (S/P/Bld) [Vol rate/Area] 112 mL/min/{1.73_m2} Normal >60 [facility] Comment on above: Result Comment: mL/m in/1.73m2 CKD-EPI Creatinine Equation (2020) Performed By: #### M 100.1999, M300.2000, M300.3000, M100.4001, M100.3000, M600.2200, M600.1999 #### [facility] [address] [place], [address] Globulin (S) [Mass/Vol] 3.2 g/dL Normal 2.2-4.2 [facility] Comment on above: Performed By: #### M 100.1999, M300.2000, M300.3000, M100.4001, M100.3000, M600.2200, M600.1999 #### [facility] [address] [place], [address] Glucose [Mass/Vol] 148 mg/dL High 70-99 [facility] Comment on above: Performed By: #### M 100.1999, M300.2000, M300.3000, M100.4001, M100.3000, M600.2200, M600.1999 #### [facility] [address] [place], [address] Potassium [Moles/Vol] 4.2 mmol/L Normal 3.3-5.1 [facility] Comment on above: Performed By: #### M 100.1999, M300.2000, M300.3000, M100.4001, M100.3000, M600.2200, M600.1999 #### [facility] [address] [place], [address] Sodium [Moles/Vol] 139 mmol/L Normal 133-145 [facility] Comment on above: Performed By: #### M 100.2000, M300.2000, M300.3000, M100.4001, M100.3000, M600.2200, M600.1999 #### [facility] [address] [place], [address] T PROT 7.3 g/dL Normal 5.9-8.4 [facility] Comment on above: Performed By: #### M 100.1999, M300.2000, M300.3000, M100.4001, M100.3000, M600.2200, M600.1999 #### [facility] [address] [place], [address] Urea nitrogen [Mass/Vol] 18 mg/dL Normal 4-19 [facility] Comment on above: Performed By: #### M 100.1999, M300.2000, M300.3000, M100.4001, M100.3000, M600.2200, M600.1999 #### [facility] [address] [place], [address] Eosinophil percentageOrdered By: Jordi Perkins on 01-17-2025 Eosinophils/100 WBC (Bld) 8.7 % High 0-5 [facility] Erythrocyte Sed Rateon 01-17 SED RATE 12 mm/hr Normal 0-20 [facility] Comment on above: Performed By: #### M 100.1999, M300.2000, M300.3000, M100.4001, M100.3000, M600.2200, M600.1999 #### [facility] [address] [place], [address] Erythrocyte distribution wid th ratioOrdered By: Jordi Perkins on 01-17-2025 Erythrocyte distribution width (RBC) [Ratio] 15.5 % High 11.6-14.6 [facility] Erythrocyte distribution wid th standard deviationOrdered By: Jordi Perkins on 01-17-2025 Erythrocyte distribution width (RBC) [Ratio] 44.1 fl High 35.1-43.9 [facility] Erythrocyte sedimentation ra teOrdered By: Jordi Perkins on 01-17-2025 ESR (Bld) [Velocity] 12 mm/h 0-20 [facility] Glomerular filtration rate ( GFR) estimation/1.73 sq m using serum, plasma, or whole bOrdered By: Jordi Perkins on 01-17-2025 GFR/1.73 sq M.predicted among non-blacks MDRD (S/P/Bld) [Vol rate/Area] 112 mL/min/{1.73_m2} >60 [facility] Comment on above: mL/min/1.73m2 CKD-EP I Creatinine Equation (2020) Hematocrit Auto (Bld) [Volum e fraction]Ordered By: Jordi Perkins on 01-17-2025 Hematocrit (Bld) [Volume fraction] 40.0 % 40-54 [facility] Hemoglobin A1con 01-17-2025 HbA1c (Bld) [Mass fraction] 8.3 % High <=5.6 [facility] Comment on above: Result Comment: Norm al < 5.7 % Prediabetic 5.7 - 6.4 % Diabetic >or= 6.5 % Please note range changes. Performed By: #### M 100.2000, M300.2000, M300.3000, M100.4001, M100.3000, M600.2200, M600.2000 #### [facility] [place], [address] Hemoglobin A1c percentageOrd ered By: Jordi Perkins on 01-17-2025 HbA1c (Bld) [Mass fraction] 8.3 % High <5.7 [facility] Comment on above: Normal < 5.7 % Predi abetic 5.7 - 6.4 % Diabetic >or= 6.5 % Please note range changes. Hemoglobin measurementOrdere d By: Jordi Perkins on 01-17-2025 Hemoglobin (Bld) [Mass/Vol] 12.9 g/dL Low 13.0-16.5 [facility] Immature granulocytes/100 WB C Auto (Bld)Ordered By: Jordi Perkins on 01-17-2025 Immature granulocytes/100 WBC (Bld) 0.800 % 0.0-0.9 [facility] Comment on above: IG% - Immature Granu locytes (promyelocytes, myelocytes and metamyelocytes) > 1% indicates that a LEFT SHIFT is Present. Laboratory - Chemistry and C hemistry - challengeOrdered By: Jordi Perkins on 01-17-2025 AST [Catalytic activity/Vol] 28 U/L <38 [facility] MCV (mean corpuscular volume ) determinationOrdered By: Jordi Perkins on 01-17-2025 MCV (RBC) [Entitic vol] 79.2 fL Low 80-94 [facility] Mean corpuscular hemoglobin (MCH) determinationOrdered By: Jordi Perkins on 01-17-2025 MCH (RBC) [Entitic mass] 25.5 pg Low 27.0-32.0 [facility] Mean corpuscular hemoglobin concentration (MCHC) determinationOrdered By: Jordi Perkins on 01-17-2025 MCHC (RBC) [Mass/Vol] 32.3 g/dL 32-36 [facility] Mean platelet volume determi nationOrdered By: Jordi Perkins on 01-17-2025 Platelet mean volume (Bld) [Entitic vol] 9.5 fL 6.2-12.0 [facility] Monocyte percentageOrdered B y: Jordi Perkins on 01-17-2025 Monocytes/100 WBC (Bld) 9.2 % 0-10 [facility] Neutrophil percentageOrdered By: Jordi Perkins on 01-17-2025 Neutrophils/100 WBC (Bld) 59.1 % 47-70 [facility] Nucleated red blood cell per centageOrdered By: Jordi Perkins on 01-17-2025 Nucleated RBC/100 WBC (Bld) [Ratio] 0 % 0-5 [facility] Platelet countOrdered By: Hitesh Perkins on 01-17-2025 Platelets (Bld) [#/Vol] 292 10*3/uL 150-450 [facility] Potassium measurement (mass/ volume)Ordered By: Jordi Perkins on 01-17-2025 Potassium (Unsp spec) [Mass/Vol] 4.2 mmol/L 3.3-5.1 [facility] RBC Auto (Bld) [#/Vol]Ordere d By: Jordi Perkins on 01-17-2025 RBC (Bld) [#/Vol] 5.05 10*6/uL 4.6-6.2 [facility] Serum creatinine measurement (mass/volume)Ordered By: Jordi Perkins on 01-17-2025 Creatinine [Mass/Vol] 0.84 mg/dL 0.70-1.20 [facility] Serum globulin measurementOr dered By: Jordi Perkins on 01-17-2025 Globulin (S) [Mass/Vol] 3.2 g/dL 2.2-4.2 [facility] Serum glucose measurement (m ass/volume)Ordered By: Jordi Perkins on 01-17-2025 Glucose [Mass/Vol] 148 mg/dL High 70-99 [facility] Serum or plasma C reactive p rotein measurement (mass/volume)Ordered By: Jordi Perkins on 01-17-2025 CRP [Mass/Vol] 17.60 mg/L High 0.0-3.0 [facility] Serum or plasma alanine thomas otransferase (ALT) measurementOrdered By: Jordi Perkins on 01-17-2025 ALT [Catalytic activity/Vol] 27 U/L <47 [facility] Serum or plasma albumin anel urement (mass/volume)Ordered By: Jordi Perkins on 01-17-2025 Albumin [Mass/Vol] 4.1 g/dL 3.5-5.0 [facility] Serum or plasma albumin/glob ulin mass ratioOrdered By: Jordi Perkins on 01-17-2025 Albumin/Globulin [Mass ratio] 1.3 {ratio} 0.9-2.4 [facility] Serum or plasma alkaline viral sphatase measurementOrdered By: Jordi Perkins on 01-17-2025 ALP [Catalytic activity/Vol] 149 U/L High 40-129 [facility] Serum or plasma calcium anel urement (mass/volume)Ordered By: Jordi Perkins on 01-17-2025 Calcium [Mass/Vol] 9.6 mg/dL 7.6-11.0 [facility] Serum or plasma urea nitroge n measurement (mass/volume)Ordered By: oJrdi Perkins on 01-17-2025 Urea nitrogen [Mass/Vol] 18 mg/dL 4-19 [facility] Sodium levelOrdered By: Yosvany Perkins on 01-17-2025 Sodium [Moles/Vol] 139 mmol/L 133-145 [facility] Total proteinOrdered By: Geo Perkins on 01-17-2025 Protein [Mass/Vol] 7.3 g/dL 5.9-8.4 [facility] White blood cell (WBC) count Ordered By: Jordi Perkins on 01-17-2025 WBC (Bld) [#/Vol] 6.0 10*3/uL 4.4-11.0 [facility] 10-22-2024 U Ratio Alb/Cre 99 mg/G High 0-30 [facility] Comment on above: Performed By: #### M ALBR #### [address] [address] [facility] 09-27-2024 U Creatinine 121.8 mg/dL Normal [facility] Comment on above: Performed By: #### M ALBR #### [address] [address] U Microalb 120.4 mg/L Normal [facility] Comment on above: Performed By: #### M ALBR #### [address] [address] .Auto Diffon 09-21-2024 Basophil, Absolute 0.0 10 3/mcL Normal 0.0-0.2 [facility] Comment on above: Performed By: #### T SH, LIPID, CMP, ADIFF, CBC, GFR, ANEU, A1C #### [address] [address] Basophils/100 WBC (Bld) 0.6 % Normal 0.0-2.5 [facility] Comment on above: Performed By: #### T SH, LIPID, CMP, ADIFF, CBC, GFR, ANEU, A1C #### [address] [address] Eosinophil, Absolute 0.4 10 3/mcL Normal 0.0-0.7 [facility] Comment on above: Performed By: #### T SH, LIPID, CMP, ADIFF, CBC, GFR, ANEU, A1C #### [address] [address] Eosinophils/100 WBC (Bld) 7.3 % High 0.0-7.0 [facility] Comment on above: Performed By: #### T SH, LIPID, CMP, ADIFF, CBC, GFR, ANEU, A1C #### [address] [address] Lymphocyte, Absolute 1.1 10 3/mcL Normal 0.9-4.3 [facility] Comment on above: Performed By: #### T SH, LIPID, CMP, ADIFF, CBC, GFR, ANEU, A1C #### [address] [address] Lymphocytes/100 WBC (Bld) 22.0 % Normal 20.0-40.0 [facility] Comment on above: Performed By: #### T SH, LIPID, CMP, ADIFF, CBC, GFR, ANEU, A1C #### [address] [address] Monocyte, Absolute 0.5 10 3/mcL Normal 0.1-1.4 [facility] Comment on above: Performed By: #### T SH, LIPID, CMP, ADIFF, CBC, GFR, ANEU, A1C #### [address] [address] Monocytes/100 WBC (Bld) 9.8 % Normal 2.0-13.0 [facility] Comment on above: Performed By: #### T SH, LIPID, CMP, ADIFF, CBC, GFR, ANEU, A1C #### [address] [address] Neutrophils/100 WBC (Bld) 60.3 % Normal 50.0-75.0 [facility] Comment on above: Performed By: #### T SH, LIPID, CMP, ADIFF, CBC, GFR, ANEU, A1C #### [address] [address] .GFRon 09-21-2024 Estimated Glomerular Filtration Rate 102 ml/min/1.73sqm Normal [facility] Comment on above: Result Comment: Stages of Chronic Kidney Disease (CKD) Stage Description eGFR(ml/min/1.73 sq.m.) CKD 1 Normal kidney function or >=90 normal kindney function with possible kidney damage (ex. Proteinuria) CKD 2 Kidney damage with mild loss 60-89 of kidney function CKD 3a Mild to moderate loss of kidney 45-59 function CKD 3b Moderate to severe loss of 30-44 of kindey function CKD 4 Severe loss of kidney function 15-29 CKD 5 Kidney failure <15 Note: (go live 2024) the eGFR calculation was updated to the 2020 CKD-EPI creatinine equation without a race factor to calculate the eGFR results. Performed By: #### T SH, LIPID, CMP, ADIFF, CBC, GFR, ANEU, A1C #### [address] [address] .NEUABSon 09-21-2024 Neutrophil, Absolute 3.1 10 3/mcL Normal 2.3-8.1 [facility] Comment on above: Performed By: #### T SH, LIPID, CMP, ADIFF, CBC, GFR, ANEU, A1C #### [address] [place], [place] [address] A1Con 09-21-2024 Glucose [Mass/Vol] 128 mg/dL Normal [facility] Comment on above: Result Comment: Lashonda mated Average Glucose calculated by equation ((28.7xA1C)-46.7) Estimated average glucose (eAG) is a calculated value from Hemoglobin A1C and is sales representative printing paper of the average blood glucose level in the last 2-3 month period. Normal range: less than 114 mg/dL Performed By: #### T SH, LIPID, CMP, ADIFF, CBC, GFR, ANEU, A1C #### [address] [address] HbA1c (Bld) [Mass fraction] 6.1 % Normal 4.3-6.4 [facility] Comment on above: Performed By: #### T SH, LIPID, CMP, ADIFF, CBC, GFR, ANEU, A1C #### [address] [address] CBCon 09-21-2024 Erythrocyte distribution width (RBC) [Ratio] 16.3 % High 11.5-15.5 [facility] Comment on above: Performed By: #### T SH, LIPID, CMP, ADIFF, CBC, GFR, ANEU, A1C #### [address] [address] Hematocrit (Bld) [Volume fraction] 38.0 % Low 40.0-52.0 [facility] Comment on above: Performed By: #### T SH, LIPID, CMP, ADIFF, CBC, GFR, ANEU, A1C #### [address] [address] Hgb 12.2 G/dL Low 13.0-17.5 [facility] Comment on above: Performed By: #### T SH, LIPID, CMP, ADIFF, CBC, GFR, ANEU, A1C #### [address] [address] MCH (RBC) [Entitic mass] 23.8 pg Low 27.0-33.0 [facility] Comment on above: Performed By: #### T SH, LIPID, CMP, ADIFF, CBC, GFR, ANEU, A1C #### [address] [address] MCHC 32.2 G/dL Normal 32.0-36.0 [facility] Comment on above: Performed By: #### T SH, LIPID, CMP, ADIFF, CBC, GFR, ANEU, A1C #### [address] [address] MCV (RBC) [Entitic vol] 74.0 fL Low 81.0-100.0 [facility] Comment on above: Performed By: #### T SH, LIPID, CMP, ADIFF, CBC, GFR, ANEU, A1C #### [address] [address] Platelet 266 10 3/mcL Normal 150-450 [facility] Comment on above: Performed By: #### T SH, LIPID, CMP, ADIFF, CBC, GFR, ANEU, A1C #### [address] [address] Platelet mean volume (Bld) [Entitic vol] 7.6 fL Normal 6.4-10.5 [facility] Comment on above: Performed By: #### T SH, LIPID, CMP, ADIFF, CBC, GFR, ANEU, A1C #### [address] [address] RBC 5.14 10 6/mcL Normal 4.50-6.00 [facility] Comment on above: Performed By: #### T SH, LIPID, CMP, ADIFF, CBC, GFR, ANEU, A1C #### [address] [address] WBC 5.1 10 3/mcL Normal 4.5-10.8 [facility] Comment on above: Performed By: #### T SH, LIPID, CMP, ADIFF, CBC, GFR, ANEU, A1C #### [address] [address] CMPon 09-21-2024 Albumin Level 3.6 G/dL Normal 3.5-5.0 [facility] Comment on above: Performed By: #### T SH, LIPID, CMP, ADIFF, CBC, GFR, ANEU, A1C #### [address] [address] Albumin/Globulin [Mass ratio] 1.0 {ratio} Low 1.1-2.5 [facility] Comment on above: Performed By: #### T SH, LIPID, CMP, ADIFF, CBC, GFR, ANEU, A1C #### [address] [address] ALP [Catalytic activity/Vol] 144 U/L High 40-135 [facility] Comment on above: Performed By: #### T SH, LIPID, CMP, ADIFF, CBC, GFR, ANEU, A1C #### [address] [address] ALT [Catalytic activity/Vol] 37 U/L Normal 16-63 [facility] Comment on above: Performed By: #### T SH, LIPID, CMP, ADIFF, CBC, GFR, ANEU, A1C #### [address] [address] AST [Catalytic activity/Vol] 22 U/L Normal 10-40 [facility] Comment on above: Performed By: #### T SH, LIPID, CMP, ADIFF, CBC, GFR, ANEU, A1C #### [address] [address] Bili Total 0.4 mg/dL Normal 0.2-1.0 [facility] Comment on above: Result Comment: Use of this assay is not recommended for patients undergoing treatment with eltrombopag due to the potential for falsely elevated results. Performed By: #### T SH, LIPID, CMP, ADIFF, CBC, GFR, ANEU, A1C #### [address] [address] BUN/Creatinine Ratio 16 ratio Normal 7-27 [facility] Comment on above: Performed By: #### T SH, LIPID, CMP, ADIFF, CBC, GFR, ANEU, A1C #### [address] [address] Calcium [Mass/Vol] 9.2 mg/dL Normal 8.4-10.2 [facility] Comment on above: Performed By: #### T SH, LIPID, CMP, ADIFF, CBC, GFR, ANEU, A1C #### [address] [address] Chloride [Moles/Vol] 104 mmol/L Normal 98-107 [facility] Comment on above: Performed By: #### T SH, LIPID, CMP, ADIFF, CBC, GFR, ANEU, A1C #### [address] [address] CO2 [Moles/Vol] 33 mmol/L High 22-29 [facility] Comment on above: Performed By: #### T SH, LIPID, CMP, ADIFF, CBC, GFR, ANEU, A1C #### [address] [address] Creatinine [Mass/Vol] 0.95 mg/dL Normal 0.70-1.30 [facility] Comment on above: Result Comment: Test ing performed on Siemens Dimension EXL analyzer using a modified kinetic Lilia technique. Performed By: #### T SH, LIPID, CMP, ADIFF, CBC, GFR, ANEU, A1C #### [address] [address] Electrolyte Balance 6.0 mEq/L Normal 4.0-15.0 [facility] Comment on above: Performed By: #### T SH, LIPID, CMP, ADIFF, CBC, GFR, ANEU, A1C #### [address] [address] Globulin 3.7 G/dL Normal 1.5-3.8 [facility] Comment on above: Performed By: #### T SH, LIPID, CMP, ADIFF, CBC, GFR, ANEU, A1C #### [address] [address] Glucose [Mass/Vol] 97 mg/dL Normal 70-105 [facility] Comment on above: Performed By: #### T SH, LIPID, CMP, ADIFF, CBC, GFR, ANEU, A1C #### [address] [address] Potassium [Moles/Vol] 4.3 mmol/L Normal 3.5-5.1 [facility] Comment on above: Performed By: #### T SH, LIPID, CMP, ADIFF, CBC, GFR, ANEU, A1C #### [address] [address] Sodium [Moles/Vol] 143 mmol/L Normal 136-145 [facility] Comment on above: Performed By: #### T SH, LIPID, CMP, ADIFF, CBC, GFR, ANEU, A1C #### [address] [address] Total Protein 7.3 G/dL Normal 6.4-8.2 [facility] Comment on above: Performed By: #### T SH, LIPID, CMP, ADIFF, CBC, GFR, ANEU, A1C #### [address] [place], [place] [address] Urea nitrogen [Mass/Vol] 15 mg/dL Normal 7-18 [facility] Comment on above: Performed By: #### T SH, LIPID, CMP, ADIFF, CBC, GFR, ANEU, A1C #### [address] [place], [place] [address] LABORATORYOrdered By: SYSTEM SYSTEM on 09-21-2024 Albumin BCP dye [Mass/Vol] 3.6 G/dL Normal 3.5 - 5.0 G/dL AO ADM SS Albumin/Globulin [Mass ratio] 1.0 {ratio} Low 1.1 - 2.5 ratio AO ADM SS ALP [Catalytic activity/Vol] 144 U/L High 40 - 135 U/L AO ADM SS ALT With P-5'-P [Catalytic activity/Vol] 37 U/L Normal 16 - 63 U/L AO ADM SS AST With P-5'-P [Catalytic activity/Vol] 22 U/L Normal 10 - 40 U/L AO ADM SS Basophils (Bld) [#/Vol] 0.0 103/mcL Normal 0.0 - 0.2 10^3/mcL AO Workflow SS Basophils/100 WBC (Bld) 0.6 % Normal 0.0 - 2.5 % AO Workflow SS Bilirubin [Mass/Vol] 0.4 mg/dL Normal 0.2 - 1 .0 mg/dL AO ADM SS Comment on above: Interpretive Data: U se of this assay is not recommended for patients undergoing treatment with eltrombopag due to the potential for falsely elevated results. Calcium [Mass/Vol] 9.2 mg/dL Normal 8.4 - 10. 2 mg/dL AO ADM SS Chloride [Moles/Vol] 104 mmol/L Normal 98 - 10 7 mmol/L AO ADM SS CO2 [Moles/Vol] 33 mmol/L High 22 - 29 mmol/L AO ADM SS Creatinine [Mass/Vol] 0.95 mg/dL Normal 0.70 - 1.30 mg/dL AO ADM SS Comment on above: Interpretive Data: T esting performed on Siemens Dimension EXL analyzer using a modified kinetic Lilia technique. Electrolyte Balance 6.0 mEq/L Normal 4.0 - 15 .0 mEq/L AO ADM SS Eosinophil, Absolute 0.4 103/mcL Normal 0.0 - 0 .7 10^3/mcL AO Workflow SS Eosinophils/100 WBC (Bld) 7.3 % High 0.0 - 7.0 % AO Workflow SS Erythrocyte distribution width (RBC) [Ratio] 16.3 % High 11.5 - 15.5 % AO Workflow SS Estimated Glomerular Filtration Rate 102 ml/min/1.73sqm Invalid Interpretation Code AO Chemistry S Comment on above: Interpretive Data: Stages of Chronic Kidney Disease (CKD) Stage Description eGFR(ml/min/1.73 sq.m.) CKD 1 Normal kidney function or >=90 normal kindney function with possible kidney damage (ex. Proteinuria) CKD 2 Kidney damage with mild loss 60-89 of kidney function CKD 3a Mild to moderate loss of kidney 45-59 function CKD 3b Moderate to severe loss of 30-44 of kindey function CKD 4 Severe loss of kidney function 15-29 CKD 5 Kidney failure <15 Note: (go live 2024) the eGFR calculation was updated to the 2020 CKD-EPI creatinine equation without a race factor to calculate the eGFR results. Globulin 3.7 G/dL Normal 1.5 - 3.8 G/dL AO ADM SS Glucose [Mass/Vol] 128 mg/dL Invalid Interpretation Code AO Chemistry S Comment on above: Interpretive Data: E stimated average glucose (eAG) is a calculated value from Hemoglobin A1C and is sales representative printing paper of the average blood glucose level in the last 2-3 month period. Normal range: less than 114 mg/dL Glucose [Mass/Vol] 97 mg/dL Normal 70 - 105 mg/dL AO ADM SS HbA1c (Bld) [Mass fraction] 6.1 % Normal 4.3 - 6.4 % AO ADM SS Hematocrit (Bld) [Volume fraction] 38.0 % Low 40.0 - 52.0 % AO Workflow SS Hemoglobin (Bld) [Mass/Vol] 12.2 G/dL Low 13.0 - 17.5 G/dL AO Workflow SS Lymphocytes (Bld) [#/Vol] 1.1 103/mcL Normal 0.9 - 4.3 10^3/mcL AO Workflow SS Lymphocytes/100 WBC (Bld) 22.0 % Normal 20.0 - 40.0 % AO Workflow SS MCH (RBC) [Entitic mass] 23.8 pg Low 27. 0 - 33.0 pg AO Workflow SS MCHC 32.2 G/dL Normal 32.0 - 36.0 G/dL AO Workflow SS MCV (RBC) [Entitic vol] 74.0 fL Low 81.0 - 100.0 fL AO Workflow SS Monocytes (Bld) [#/Vol] 0.5 103/mcL Normal 0.1 - 1.4 10^3/mcL AO Workflow SS Monocytes/100 WBC (Bld) 9.8 % Normal 2.0 - 13.0 % AO Workflow SS Neutrophils (Bld) [#/Vol] 3.1 103/mcL Normal 2.3 - 8.1 10^3/mcL AO Workflow SS Neutrophils/100 WBC (Bld) 60.3 % Normal 50.0 - 75.0 % AO Workflow SS Platelet mean volume (Bld) [Entitic vol] 7.6 fL Normal 6.4 - 10.5 fL AO Workflow SS Platelets (Bld) [#/Vol] 266 103/mcL Normal 150 - 450 10^3/mcL AO Workflow SS Potassium [Moles/Vol] 4.3 mmol/L Normal 3.5 - 5.1 mmol/L AO ADM SS Protein [Mass/Vol] 7.3 G/dL Normal 6.4 - 8.2 G/dL AO ADM SS RBC (Bld) [#/Vol] 5.14 106/mcL Normal 4.50 - 6.0 0 10^6/mcL AO Workflow SS Sodium [Moles/Vol] 143 mmol/L Normal 136 - 145 mmol/L AO ADM SS TSH Qn 2.69 m[IU]/L Normal 0.36 - 3.74 mcIU/mL AO ADM SS Urea nitrogen [Mass/Vol] 15 mg/dL Normal 7 - 18 mg/dL AO ADM SS Urea nitrogen/Creatinine [Mass ratio] 16 ratio Normal 7 - 27 ratio AO ADM SS WBC (Bld) [#/Vol] 5.1 103/mcL Normal 4.5 - 10.8 10^3/mcL AO Workflow SS LABORATORYOrdered By: Luciana Garza on 09-21-2024 Cholesterol [Mass/Vol] 153 mg/dL Normal 0 - 2 00 mg/dL AO ADM SS Comment on above: Interpretive Data: C holesterol Reference Interval: Less than 200 Desirable 200-239 Borderline high risk 240 and above High risk Cholesterol in HDL [Mass/Vol] 59 mg/dL Normal 40 - 60 mg/dL AO ADM SS Cholesterol in LDL [Mass/Vol] 76 mg/dL Normal 0 - 130 mg/dL AO ADM SS Triglyceride [Mass/Vol] 89 mg/dL Normal 0 - 150 mg/dL AO ADM SS Comment on above: Interpretive Data: T riglyceride Reference Interval: Less than 150 Normal 150-199 Borderline high risk 200-499 High risk 500 or higher Very high risk LIPIDon 09-21-2024 Cholesterol [Mass/Vol] 153 mg/dL Normal 0-200 [facility] Comment on above: Result Comment: Chol esterol Reference Interval: Less than 200 Desirable 200-239 Borderline high risk 240 and above High risk Performed By: #### T SH, LIPID, CMP, ADIFF, CBC, GFR, ANEU, A1C #### [address] [address] Cholesterol in HDL [Mass/Vol] 59 mg/dL Normal 40-60 [facility] Comment on above: Performed By: #### T SH, LIPID, CMP, ADIFF, CBC, GFR, ANEU, A1C #### [address] [address] Cholesterol in LDL [Mass/Vol] 76 mg/dL Normal 0-130 [facility] Comment on above: Performed By: #### T SH, LIPID, CMP, ADIFF, CBC, GFR, ANEU, A1C #### [address] [address] Triglyceride [Mass/Vol] 89 mg/dL Normal 0-150 [facility] Comment on above: Result Comment: Trig lyceride Reference Interval: Less than 150 Normal 150-199 Borderline high risk 200-499 High risk 500 or higher Very high risk Performed By: #### T SH, LIPID, CMP, ADIFF, CBC, GFR, ANEU, A1C #### [address] [address] TSHon 09-21-2024 TSH Qn 2.69 m[IU]/L Normal 0.36-3.74 [facility] Comment on above: Performed By: #### T SH, LIPID, CMP, ADIFF, CBC, GFR, ANEU, A1C #### [facility] [address] [place], [place] [address] MR/[id number] 06-15-2024 MR/POSTOPAN2 [facility] Medical Records Department [address] [place] [address] Anesthesia Postop Eval II 06/15/24 1118 MR#: [id number] Acct: [id number] Name: SNEHA WEI Jr. Rep #: [id number] : 1980 44 From: Lex Henriquez MD PCP: Dr. Liliane Epps, DO Status:[facility] Y Race: C Location: [facility] Anesthesia Postop Eval I Sum Postop Eval Completion status Anesthesia document: Postop Eval 1 completed: Yes Anesthesia Postop Eval I Summary Anesthesia Postop Eval I Summary: Anesthesia Postop Eval I: Assessment Summary Airway patent Yes 06/14/24 11:48 [email or web address] Spontaneous unlabored Yes 06/14/24 11:48 [email or web address] respirations Mental status Awake,Calm 06/14/24 11:48 [email or web address] nausea No 06/14/24 11:48 [email or web address] Vomiting No 06/14/24 11:48 [email or web address] Anesthesia Postop Eval I: Fluid Summary Crystalloid volume administer 700 06/14/24 11:48 [email or web address] (ml) Colloids volume administered ( ml) Blood Product volume administered (ml) Total IV fluid infused 700 06/14/24 11:48 [email or web address] Anesthesia Postop Eval I: Summary Notes Anesthesia Complication No 06/14/24 11:48 [email or web address] Anesthesia Complication Comment: Post-operative progress note Anesthesia: Postop Eval II Evaluation Mental status: Awake and Calm Pain Level: 2 nausea: No Vomiting: No Complications Anesthesia Complication: No 06/15/24 1118 Date Lex West Signature: Date CC: Signed Normal [facility] Ankle 2 Viewson 06-14-2024 Ankle 2 Views [facility] Imaging Services [address] [place] [address] Ankle 2 Views MR#: [id number] Acct: [id number] Name: SNEHA WEI Jr. Rep #: [id number] : 1980 M 44 From: Mayito Addison MD PCP: Dr. Liliane Epps DO Status: [facility] Study: Ankle 2 Views Date of Exam: 06/14/24 Exam# [id number] Ordering Dr: Jordi Perkins DPM [id number] STUDY: X-RAY - LEFT ANKLE REASON FOR EXAM: Male, 44 years old. PAIN TECHNIQUE: 2 view(s) of the ankle. COMPARISON: 12/06/2023 FINDINGS: 10 minutes of fluoroscopy of the left ankle was utilized operating RM during tibiotalar and hindfoot arthrodesis with an implant and intramedullary vance and 29 images are submitted for interpretation. . RAD/Ankle 2 Views IMPRESSION: Fluoroscopy during tibiotalar and hindfoot arthrodesis. Electronically Signed: Mayito Addison MD at 9:26 EST , CC: BLATAZAR Perkins; Dr. Liliane Epps DO Doctor Of Pharmacy: Signed Normal [facility] Bedside Glucoseon 06-14-2024 FINGERSTICK GLU 187 mg/dL High 74-106 [facility] Comment on above: Result Comment: SUNDAY GEMENT OF PATIENT CARE PER NURSING PROTOCOL Performed By: #### M 100.2000, M300.2000, M300.3000, M100.4001, M100.3000, M600.2200, M600.1999 #### [facility] [address] [place], [address] FINGERSTICK GLU 133 mg/dL High 74-106 [facility] Comment on above: Result Comment: SUNDAY GEMENT OF PATIENT CARE PER NURSING PROTOCOL Performed By: #### M 100.1999, M300.2000, M300.3000, M100.4001, M100.3000, M600.2200, M600.1999 #### [facility] [address] [place], [address] MR/POSTOP.ANEon 06-14-2024 MR/POSTOP.[facility] Medical Records Department [address] [place] [address] Anesthesia Postop Eval I 06/14/24 1147 MR#: [id number] Acct: [id number] Name: SNEHA WEI Jr. Rep #: [id number] : 1980 44 From: Fredis Haley PCP: Dr. Liliane Epps, DO Status:[facility] Y Race: C Location: [place] [address] Anesthesia: Postop Eval I Current Vital Signs Temperature: 98.2 F Pulse Rate: 87 Blood Pressure: 100/57 Respiratory Rate: 14 Pulse Ox: 93 Oxygen Delivery Method: Room Air Assessment Airway patent: Yes Spontaneous unlabored respirations: Yes Mental status: Awake and Calm nausea: No Vomiting: No Anesthesia Complication: No Fluid Hydration Crystalloid volume administer (ml): 700 Total IV fluid infused: 700 Progress Note Anesthesia document: Postop Eval 1 completed: Yes 06/14/24 1148 Date Fredis West Signature: Date CC: Signed Normal [facility] Operative Reporton 4 Operative Report [facility] Medical Records Department [address] [place] [address] Operative Report 06/14/24 1056 MR#: [id number] Acct: [id number] Name: SNEHA WEI Jr. Rep #: [id number] : 1980 44 From: Jordi Perkins DPM PCP: Dr. 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: (3) Other acute osteomyelitis, left ankle and foot: (4) Aftercare involving removal of external fixation device: Operative Report (Standard) Operative Information Surgery/Procedure Performed: 1) Removal External Fixation Device, Left Ankle 2) Talectomy Left Ankle 3) Revisional Tibiotalocalcaneal arthrodesis with application of custom Spherical Cage and retrograde intramedullary nail 4) Delayed primary Closure of left lateral ankle Ulceration Surgeon: Jordi Perkins Date of Procedure: 06/14/24 Procedure Start Time: 07:30 Procedure Stop Time: 11:30 Pre-Operative Diagnosis: 1) retained external fixation device 2) osteomyelitis talus left ankle 3) Charcot foot with deformity left ankle 4) chronic nonhealing ulceration left lateral ankle Post-Operative Diagnosis: Same Select all DRAINS/GRAFTS/IMPLANT S that apply: Graft Graft details: augment, allograft and Implanted device Implanted device details: 4web 40mm spehrical cage, 250mm nail x 11mm ([facility]), Type of Anesthesia: General Special Medications: 30 cc half percent Marcaine plain Estimated Blood Loss: 100 cc Specimen collected: No Description of surgery: Patient had failed TTC fusion via intramedullary nailing secondary to postoperative infection including talus osteomyelitis which required significant resection of the talus to clear the infection which created a void requiring custom implant formation via aspherical cage to be applied with a revisional TTC fusion via intramedullary nailing. Patient was brought back the operating room placed comfortably in supine position on the operating room table. Patient was induced under general anesthesia. All osseous prominences offloaded prevent any compression neuropraxia. Well-padded left thigh tourniquet was applied. Left lower extremity was positioned with a hip bump to knock on external rotation. The pin sites to the external fixation to device were prepped with Betadine paint and they were all cut the external fixator was removed and then the pin sites were aseptically removed after they were rewashed with Betadine paint to prevent any bacterial transposition into the bone. Next a formal prep was performed and the left lower extremity scrubbed prepped draped using typical aseptic fashion. Once cleared by anesthesia left lower extremity was elevated exsanguinated tourniquet was inflated to 300 mmHg. Through the a linear incision along the course of the distal fibula and lateral aspect of the talus and calcaneus the repeat incision was made full-thickness down to level of bone using a #10 blade. Any bleeders were identified cauterized at this time. Blunt dissection was taken to expose the residual talus as well as the defect. Any residual bone was curetted out and then full further resected using acetabular reaming using a stepwise fashion starting with a 38 mm reaming reamer all the way up to 40 mm. Once adequate talus resection was noted the revisional TTC fusion would be performed. The case was prepped with 2 spherical insert 1 was 40 mm in diameter and the other was 42. Due to adequate alignment and positioning with the 4 mL 40 mm implant decision was made to use this after testing with the test or implants. The test implants were removed and then a guidepin was placed with the foot ankle held in a rectus position relative to the leg running from the plantar calcaneus into the tibia. At this point stepwise reaming was performed up to 12-1/2 mm along the course of a 250 mm length from the plantar calcaneus into the tibia. Fluoroscopic imaging was used throughout this entire portion to ensure no loss of alignment or breakthrough of the tibial cortex occurred. At this time the 40 mm spherical implant was placed using manufactures guidelines and a 250 mm intramedullary nail straight nail valor nail from [employer] was placed from the plantar calcaneus through the spherical cage into the tibia using manufactures guidelines with the foot and ankle held in a rectal rectus position relative to the leg maintaining length of the leg as well due to application of the spherical cage. Prior to application of the spherical cage was packed with augment and additional bone allograft. Fluoroscopic imaging was used to confirm placement of the nail and all screws were placed placing the nail in a static orientation as compression was not needed. All screws were pl (more content not included)... Normal [facility] Urine Cultureon 05-30-2024 URC Culture exhibits no growth. Normal [facility] Comment on above: Performed By: #### M 100.3000, , #### [facility] [address] [place], [address] CBC-Complete Blood Cnt No Di ffon 05-29-2024 Erythrocyte distribution width (RBC) [Ratio] 17.5 % High 11.6-14.6 [facility] Comment on above: Performed By: #### M 100.3000, , #### [facility] [address] [place], [address] Hematocrit (Bld) [Volume fraction] 45.4 % Normal 40-54 [facility] Comment on above: Performed By: #### M 100.3000, , .4001 #### [facility] [address] [place], [address] Hemoglobin (Bld) [Mass/Vol] 14.3 g/dL Normal 13.0-16.5 [facility] Comment on above: Performed By: #### M 100.3000, , .4001 #### [facility] [address] [place], [address] MCH (RBC) [Entitic mass] 24.5 pg Low 27.0-32.0 [facility] Comment on above: Performed By: #### M 100.3000, , .4001 #### [facility] [address] [place], [address] MCHC (RBC) [Mass/Vol] 31.5 g/dL Low 32-36 [facility] Comment on above: Performed By: #### M 100.3000, .1999, .4001 #### [facility] [address] [place], [address] MCV (RBC) [Entitic vol] 77.7 fL Low 80-94 [facility] Comment on above: Performed By: #### M 100.3000, , M100.4001 #### [facility] [address] [place], [address] Platelet mean volume (Bld) [Entitic vol] 9.7 fL Normal 6.2-12.0 [facility] Comment on above: Performed By: #### M 100.3000, , .4001 #### [facility] [address] [place], [address] Platelets (Bld) [#/Vol] 248 10*3/uL Normal 150-450 [facility] Comment on above: Performed By: #### M 100.3000, , .4001 #### [facility] [address] [place], [address] RBC (Bld) [#/Vol] 5.84 10*6/uL Normal 4.6-6.2 [facility] Comment on above: Performed By: #### M 100.3000, , M100.4001 #### [facility] [address] [place], [address] RDW SD 47.2 fl High 35.1-43.9 [facility] Comment on above: Performed By: #### M 100.3000, .1999, M100.4001 #### [facility] [address] [place], [address] WBC (Bld) [#/Vol] 5.8 10*3/uL Normal 4.4-11.0 [facility] Comment on above: Performed By: #### M 100.3000, , .4001 #### [facility] [address] [place], [address] Comprehensive Metabolic Prof ilon 05-29-2024 Albumin [Mass/Vol] 3.7 g/dL Normal 3.2-5.0 [facility] Comment on above: Performed By: #### M 100.3000, , .4001 #### [facility] [address] [place], [address] Albumin/Globulin [Mass ratio] 1.0 {ratio} Normal 0.9-2.4 [facility] Comment on above: Performed By: #### M 100.3000, , .4001 #### [facility] [address] [place], [address] ALK P 102 U/L Normal 45-117 [facility] Comment on above: Performed By: #### M 100.3000, , .4001 #### [facility] [address] [place], [address] ALT [Catalytic activity/Vol] 32 U/L Normal 16-61 [facility] Comment on above: Performed By: #### M 100.3000, , .4001 #### [facility] [address] [place], [address] AST [Catalytic activity/Vol] 19 U/L Normal 15-37 [facility] Comment on above: Performed By: #### M 100.3000, , M1.4001 #### [facility] [address] [place], [address] Bilirubin [Mass/Vol] 0.40 mg/dL Normal 0.20-1.00 [facility] Comment on above: Result Comment: For patients on eltrombopag therapy, use of Dimension [place] TBIL is not recommended. Performed By: #### M 100.3000, , #### [facility] [address] [place], [address] BUN/CRE 23.0 RATIO High 10-20 [facility] Comment on above: Performed By: #### M 100.2999, , #### [facility] [address] [place], [address] CA,Total 10.1 mg/dL Normal 8.5-10.1 [facility] Comment on above: Performed By: #### M 100.2999, , #### [facility] [address] [place], [address] Chloride [Moles/Vol] 104 mmol/L Normal 98-107 [facility] Comment on above: Performed By: #### M 100.2999, , #### [facility] [address] [place], [address] CO2 [Moles/Vol] 29.0 mmol/L Normal 21.0-32.0 [facility] Comment on above: Performed By: #### M 100.3000, , #### [facility] [address] [place], [address] Creatinine [Mass/Vol] 0.91 mg/dL Normal 0.70-1.30 [facility] Comment on above: Result Comment: The validity of the calculated GFR GFRAA in patients over 70 years has not been determined. Clinical correlation is essential. Performed By: #### M 100.3000, , #### [facility] [address] [place], [address] ECRCL 132.71 ml/min Normal [facility] Comment on above: Performed By: #### M 100.3000, .1999, .4001 #### [facility] [address] [place], [address] EST GFR - AA 117 mL/min Normal >60 [facility] Comment on above: Result Comment: Afri can Citizen Of [place] GFR Calc Performed By: #### M 100.3000, , .4001 #### [facility] [address] [place], [address] GAP 6 Normal 5-15 [facility] Comment on above: Performed By: #### M 100.3000, , .4001 #### [facility] [address] [place], [address] GFR/1.73 sq M.predicted among non-blacks MDRD (S/P/Bld) [Vol rate/Area] 97 mL/min/{1.73_m2} Normal >60 [facility] Comment on above: Result Comment: Non- GFR Calc Performed By: #### M 100.3000, , .4001 #### [facility] [address] [place], [address] Globulin (S) [Mass/Vol] 3.8 g/dL Normal 2.2-4.2 [facility] Comment on above: Performed By: #### M 100.3000, .1999, M1.4001 #### [facility] [address] [place], [address] Glucose [Mass/Vol] 106 mg/dL Normal 74-106 [facility] Comment on above: Result Comment: Fast ing Glucose result from 100 to 125 mg/dL suggests IMPAIRED HOMEOSTASIS per A.D.A. criteria. Performed By: #### M 100.3000, , .400 #### [facility] [address] [place], [address] Potassium [Moles/Vol] 4.2 mmol/L Normal 3.5-5.1 [facility] Comment on above: Performed By: #### M 100.3000, , M1.4001 #### [facility] [address] [place], [address] Sodium [Moles/Vol] 139 mmol/L Normal 136-145 [facility] Comment on above: Performed By: #### M 100.3000, , .4001 #### [facility] [address] [place], [address] T PROT 7.5 g/dL Normal 6.4-8.2 [facility] Comment on above: Performed By: #### M 100.3000, , .4001 #### [facility] [address] [place], [address] Urea nitrogen [Mass/Vol] 21 mg/dL High 7-18 [facility] Comment on above: Performed By: #### M 100.3000, , .4001 #### [facility] [address] [place], [address] Hemoglobin A1con 05-29-2024 HbA1c (Bld) [Mass fraction] 5.7 % High 3.8-5.6 [facility] Comment on above: Result Comment: Norm al < 5.7 % Prediabetic 5.7 - 6.4 % Diabetic >or= 6.5 % Please note range changes. Performed By: #### M 100.3000, , .4001 #### [facility] [address] [place], [address] Urinalysis, Routine (Dipstic k)on 05-29-2024 BILIRUBIN URINE Negative Normal Negative [facility] Comment on above: Order Comment: CLEAN CATCH Performed By: #### M 100.3000, M100.1999, M100.4001 #### [facility] [address] [place], [address] Clarity (U) Clear Normal Clear [facility] Comment on above: Order Comment: CLEAN CATCH Performed By: #### M 100.3000, .1999, M100.4001 #### [facility] [address] [place], [address] Color (U) Yellow Normal Yellow [facility] Comment on above: Order Comment: CLEAN CATCH Performed By: #### M 100.3000, .1999, M100.4001 #### [facility] [address] [place], [address] GLUCOSE, UR Normal Normal Normal [facility] Comment on above: Order Comment: CLEAN CATCH Performed By: #### M 100.3000, .1999, M100.4001 #### [facility] [address] [place], [address] KETONE UR Negative Normal Negative [facility] Comment on above: Order Comment: CLEAN CATCH Performed By: #### M 100.3000, .1999, M100.4001 #### [facility] [address] [place], [address] LEUK ESTERASE Negative Normal Negative [facility] Comment on above: Order Comment: CLEAN CATCH Performed By: #### M 100.3000, M100.1999, M100.4001 #### [facility] [address] [place], [address] Nitrite Ql (U) Negative Normal Negative [facility] Comment on above: Order Comment: CLEAN CATCH Performed By: #### M 100.3000, M100.1999, M100.4001 #### [facility] [address] [place], [address] OCCULT BLOOD-UR Negative Normal Negative [facility] Comment on above: Order Comment: CLEAN CATCH Performed By: #### M 100.3000, M100.1999, M100.4001 #### [facility] [address] [place], [address] pH UR 6.0 Normal 5.0 - 8.0 [facility] Comment on above: Order Comment: CLEAN CATCH Performed By: #### M 100.3000, M100.1999, M100.4001 #### [facility] [address] [place], [address] PROT DIPSTX 30 mg/dl Abnormal Negative [facility] Comment on above: Order Comment: CLEAN CATCH Performed By: #### M 100.3000, M100.1999, M100.4001 #### [facility] [address] [place], [address] SP.GR. DIPSTX 1.025 Normal 1.002-1.030 [facility] Comment on above: Order Comment: CLEAN CATCH Performed By: #### M 100.3000, M100.1999, M100.4001 #### [facility] [address] [place], [address] UROBILI Normal Normal Normal [facility] Comment on above: Order Comment: CLEAN CATCH Performed By: #### M 100.3000, M100.1999, M100.4001 #### [facility] [address] [place], [address] Venous Duplex US, Unilateral on 05-29-2024 Venous Duplex US, Unilateral [facility] [address] [place] [address] Venous Duplex US, Unilateral 05/29/24 1400 MR#: [id number] Acct: [id number] Name: SNEHA WEI JrGiovanny Rep #: [id number] : 1980 44 From: Barbara Ray MD Attending Dr: Dr. Jordi Perkins, DPM Status: R EG RCR Ordering Dr: Jordi Perkins DPM Date: 05/29/24 Location: [facility] Sex: M C Admitted: Reason For Study: NON-PRESSURE CHRONIC ULCER, LLE RIGHT LEFT CFV is compressible, spontaneous, phasic, CFV is compressible, spontaneous, phasic, competent and demonstrates normal competent, and demonstrates normal augmentation. augmentation. Procedure FV is compressible, spontaneous, phasic, This is a venous duplex using B-mode, color competent and demonstrates normal flow and spectral Doppler. augmentation. Exam performed in department. POP V is compressible, spontaneous, phasic, A preliminary report was called and/or faxed competent and demonstrates normal to Dr. Perkins @ 14:20 @ [phone]. augmentation. T/P Trunk is compressible. GSV is normal from proximal calf to groin. Proximal PTV is compressible. Proximal PERV is compressible. Unable to assess mid calf to ankle due to external fisation device bandages. VL/Venous Duplex US, Unilateral Interpretation Summary Deep veins of the left lower extremity are patent and compressible segmentally. There is no evidence of left lower extremity deep vein thrombosis. Valvular competence appears intact within the proximal deep venous system on the left . The left great saphenous vein appears patent and compressible segmentally. Deep and superficial veins of the distal left lower extremity were not assessed due to the presence of an external fixation device and bandages. The right common femoral vein is patent and compressible . Ordering Physician: Jordi Perkins Referring Physician: Liliane Epps Performed By: Carli Muñoz, RICARDO, RVT 05/29/24 1659 Date Barbara Ray MD CC: BALTAZAR Perkins; Dr. Liliane Epps, DO Date Dictated: 05/29/24 1400 Date Transcribed: 05/29/241658 Doctor Of Pharmacy: Signed [facility] Acid Fast Bacillus Cultureon 04-26-2024 [facility] Comments: COLLECTED IN OR-LEFT ANKLE TISSUE Is this test to exclude patient from TB Isolation? [facility] ORIGINAL REPORT ON FILE IN LAB CONTAINS ADDITIONAL TEST SITE INFORMATION. Culture, Acid Fast NO ACID-FAST BACILLI ISOLATED AFTER 6 WEEKS. [facility] Comment on above: Performed By: #### M 100.3000, M100.2000, M100.4001 #### [facility] [address] [place], [place], [address] [facility] Comments: COLLECTED IN OR-LEFT TALUS BONE TESTING PERFORMED AT [facility]. ORIGINAL REPORT ON FILE IN LAB CONTAINS ADDITIONAL TEST SITE INFORMATION. Culture, Acid Fast NO ACID-FAST BACILLI ISOLATED AFTER 6 WEEKS. [facility] Comment on above: Performed By: #### M 100.2000, M300.2000, M300.3000, M100.4001, M100.3000, M600.2200, M600.2000 #### [facility] [address] [place], [place], [address] Acid Fast Bacillus Smear/Flu oron 04-26-2024 [facility] Comments: COLLECTED IN OR-LEFT ANKLE TISSUE Is this test to exclude patient from TB Isolation? N TESTING PERFORMED AT [facility]. ORIGINAL REPORT ON FILE IN LAB CONTAINS ADDITIONAL TEST SITE INFORMATION. Smear, Acid Fast Tissue Grinding Smear: Negative Normal [facility] Comment on above: Performed By: #### M 100.3000, M100.1999, M100.400 #### [facility] [address] [place], [place], [address] tafb Comments: COLLECTED IN OR-LEFT TALUS BONE [facility] ORIGINAL REPORT ON FILE IN LAB CONTAINS ADDITIONAL TEST SITE INFORMATION. Smear, Acid Fast Tissue Grinding Smear: Negative Normal [facility] Comment on above: Performed By: #### M 100.2000, M300.2000, M300.3000, M100.4001, M100.3000, M600.2200, M600.1999 #### [facility] [address] [place], [place], [address] Culture, Fungus 8482on 04-26 CUF Comments: COLLECTED IN OR-LEFT ANKLE TISSUE Is this test to exclude patient from TB Isolation? N TESTING PERFORMED AT [facility]. ORIGINAL REPORT ON FILE IN LAB CONTAINS ADDITIONAL TEST SITE INFORMATION. CUF No yeast or mold isolated after 4 weeks. [facility] Comment on above: Performed By: #### M 100.3000, M100.2000, M100.4001 #### [facility] [address] [place], [place], [id number] CUF Comments: COLLECTED IN OR-LEFT TALUS BONE Is this test to exclude patient from TB Isolation? N TESTING PERFORMED AT [facility]. ORIGINAL REPORT ON FILE IN LAB CONTAINS ADDITIONAL TEST SITE INFORMATION. CUF No yeast or mold isolated after 4 weeks. [facility] Comment on above: Performed By: #### M 100.2000, M300.2000, M300.3000, M100.4001, M100.3000, M600.2200, M600.2000 #### [facility] [address] [place], [place], [id number] Fungus Stain 8136on 04-26-20 [facility]ST Comments: COLLECTED IN OR-LEFT ANKLE TISSUE Is this test to exclude patient from TB Isolation? N TESTING PERFORMED AT [facility]. ORIGINAL REPORT ON FILE IN LAB CONTAINS ADDITIONAL TEST SITE INFORMATION. Fungus Stain No fungus observed. [facility] Comment on above: Performed By: #### M 100.3000, M100.2000, M100.4001 #### [facility] [address] [place], [place], [id number] [facility]ST Comments: COLLECTED IN OR-LEFT TALUS BONE Is this test to exclude patient from TB Isolation? [facility] ORIGINAL REPORT ON FILE IN LAB CONTAINS ADDITIONAL TEST SITE INFORMATION. Fungus Stain No fungus observed. [facility] Comment on above: Performed By: #### M 100.2000, M300.2000, M300.3000, M100.4001, M100.3000, M600.2200, M600.2000 #### [facility] [address] [place], [place], [id number] Basic Metabolic Profile (BMP )on 04-19-2024 BUN/CRE 18.8 RATIO Normal 10-20 [facility] Comment on above: Order Comment: FAX R ESULTS TO [phone] Performed By: #### M 100.2000, M300.2000, M300.3000, M100.4001, M100.3000, M600.2200, M600.1999 #### [facility] [address] [place], [address] CA,Total 9.0 mg/dL Normal 8.5-10.1 [facility] Comment on above: Order Comment: FAX R ESULTS TO [phone] Performed By: #### M 100.2000, M300.2000, M300.3000, M100.4001, M100.3000, M600.2200, M600.1999 #### [facility] [address] [place], [address] Chloride [Moles/Vol] 106 mmol/L Normal 98-107 [facility] Comment on above: Order Comment: FAX R ESULTS TO [phone] Performed By: #### M 100.2000, M300.2000, M300.3000, M100.4001, M100.3000, M600.2200, M600.1999 #### [facility] [address] [place], [address] CO2 [Moles/Vol] 28.0 mmol/L Normal 21.0-32.0 [facility] Comment on above: Order Comment: FAX R ESULTS TO [phone] Performed By: #### M 100.2000, M300.2000, M300.3000, M100.4001, M100.3000, M600.2200, M600.1999 #### [facility] [address] [place], [address] Creatinine [Mass/Vol] 0.80 mg/dL Normal 0.70-1.30 [facility] Comment on above: Order Comment: FAX R ESULTS TO [phone] Result Comment: The validity of the calculated GFR GFRAA in patients over 70 years has not been determined. Clinical correlation is essential. Performed By: #### M 100.2000, M300.2000, M300.3000, M100.4001, M100.3000, M600.2200, M600.1999 #### [facility] [address] [place], [address] EST GFR - AA 137 mL/min Normal >60 [facility] Comment on above: Order Comment: FAX R ESULTS TO [phone] Result Comment: Afri can Citizen [place] GFR Calc Performed By: #### M 100.2000, M300.2000, M300.3000, M100.4001, M100.3000, M600.2200, M600.1999 #### [facility] [address] [place], [place], [id number] (181) GAP 6 Normal 5-15 [facility] Comment on above: Order Comment: FAX R ESULTS TO [phone] Performed By: #### M 100.1999, M300.2000, M300.3000, M100.4001, M100.3000, M600.2200, M600.1999 #### [facility] [address] [place], [address] GFR/1.73 sq M.predicted among non-blacks MDRD (S/P/Bld) [Vol rate/Area] 113 mL/min/{1.73_m2} Normal >60 [facility] Comment on above: Order Comment: FAX R ESULTS TO [phone] Result Comment: Non- GFR Calc Performed By: #### M 100.1999, M300.2000, M300.3000, M100.4001, M100.3000, M600.2200, M600.1999 #### [facility] [address] [place], [address] Glucose [Mass/Vol] 106 mg/dL Normal 74-106 [facility] Comment on above: Order Comment: FAX R ESULTS TO [phone] Result Comment: Fast ing Glucose result from 100 to 125 mg/dL suggests IMPAIRED HOMEOSTASIS per A.D.A. criteria. Performed By: #### M 100.1999, M300.2000, M300.3000, M100.4001, M100.3000, M600.2200, M600.1999 #### [facility] [address] [place], [address] Potassium [Moles/Vol] 4.2 mmol/L Normal 3.5-5.1 [facility] Comment on above: Order Comment: FAX R ESULTS TO [phone] Performed By: #### M 100.1999, M300.2000, M300.3000, M100.4001, M100.3000, M600.2200, M600.1999 #### [facility] [address] [place], [place], [address] Sodium [Moles/Vol] 140 mmol/L Normal 136-145 [facility] Comment on above: Order Comment: FAX R ESULTS TO [phone] Performed By: #### M 100.1999, M300.2000, M300.3000, M100.4001, M100.3000, M600.2200, M600.1999 #### [facility] [address] [place], [address] Urea nitrogen [Mass/Vol] 15 mg/dL Normal 7-18 [facility] Comment on above: Order Comment: FAX R ESULTS TO [phone] Performed By: #### M 100.1999, M300.2000, M300.3000, M100.4001, M100.3000, M600.2200, M600.1999 #### [facility] [address] [place], [address] CBC-Complete Blood Cnt No Di ffon 04-19-2024 Erythrocyte distribution width (RBC) [Ratio] 17.0 % High 11.6-14.6 [facility] Comment on above: Performed By: #### M 100.1999, M300.2000, M300.3000, M100.4001, M100.3000, M600.2200, M600.1999 #### [facility] [address] [place], [address] Hematocrit (Bld) [Volume fraction] 39.5 % Low 40-54 [facility] Comment on above: Performed By: #### M 100.1999, M300.2000, M300.3000, M100.4001, M100.3000, M600.2200, M600.1999 #### [facility] [address] [place], [address] Hemoglobin (Bld) [Mass/Vol] 12.0 g/dL Low 13.0-16.5 [facility] Comment on above: Performed By: #### M 100.1999, M300.2000, M300.3000, M100.4001, M100.3000, M600.2200, M600.1999 #### [facility] [address] [place], [address] MCH (RBC) [Entitic mass] 23.5 pg Low 27.0-32.0 [facility] Comment on above: Performed By: #### M 100.1999, M300.2000, M300.3000, M100.4001, M100.3000, M600.2200, M600.1999 #### [facility] [address] [place], [address] MCHC (RBC) [Mass/Vol] 30.4 g/dL Low 32-36 [facility] Comment on above: Performed By: #### M 100.1999, M300.2000, M300.3000, M100.4001, M100.3000, M600.2200, M600.1999 #### [facility] [address] [place], [address] MCV (RBC) [Entitic vol] 77.3 fL Low 80-94 [facility] Comment on above: Performed By: #### M 100.1999, M300.2000, M300.3000, M100.4001, M100.3000, M600.2200, M600.1999 #### [facility] [address] [place], [address] Platelet mean volume (Bld) [Entitic vol] 10.3 fL Normal 6.2-12.0 [facility] Comment on above: Performed By: #### M 100.1999, M300.2000, M300.3000, M100.4001, M100.3000, M600.2200, M600.1999 #### [facility] [address] [place], [address] Platelets (Bld) [#/Vol] 220 10*3/uL Normal 150-450 [facility] Comment on above: Performed By: #### M 100, M300.1999, M300.3000, M100.4001, M100.3000, M600.2200, M600.1999 #### [facility] [address] [place], [address] RBC (Bld) [#/Vol] 5.11 10*6/uL Normal 4.6-6.2 [facility] Comment on above: Performed By: #### M 100.1999, M300.2000, M300.3000, M100.4001, M100.3000, M600.2200, M600.1999 #### [facility] [address] [place], [address] RDW SD 47.2 fl High 35.1-43.9 [facility] Comment on above: Performed By: #### M 100.1999, M300.2000, M300.3000, M100.4001, M100.3000, M600.2200, M600.1999 #### [facility] [address] [place], [address] WBC (Bld) [#/Vol] 5.2 10*3/uL Normal 4.4-11.0 [facility] Comment on above: Performed By: #### M 100.1999, M300.2000, M300.3000, M100.4001, M100.3000, M600.2200, M600.1999 #### [facility] [address] [place], [address] Erythrocyte Sed Rateon 04-19 SED RATE 16 mm/hr Normal 0-20 [facility] Comment on above: Performed By: #### M 100.1999, M300.2000, M300.3000, M100.4001, M100.3000, M600.2200, M600.1999 #### [facility] [address] [facility] [place], [address] Vancomycin, Trough Levelon 0 04-19-2024 VANCO, TROUGH 12.4 ug/mL Normal 5.0-15.0 [facility] Comment on above: Order Comment: 1055 Result Comment: VANC OMYCIN STANDARED DRUG THERAPY TROUGH LEVEL: 5.0 - 15.0 mg/L VANCOMYCIN HIGH INTENSITY THERAPY TROUGH LEVEL: 15.0 - 20.0 mg/L High Intensity therapy recommended for serious life threatening infections include: - Meningitis -Endocarditis -Pneumonia (Ventilator/Healtcare Associated) -Sepsis PLEASE CONTACT PHARMACY SERVICES (#[id number]) FOR INTERPRETATION OF RESULTS. Performed By: #### M 100.1999, M300.2000, M300.3000, M100.4001, M100.3000, M600.2200, M600.1999 #### [facility] [address] [place], [place], [id number] Extremity Lower without Cont raon 04-18-2024 Extremity Lower without Contra [facility] [address] [place], [place] [id number] Extremity Lower without Contra MR#: [id number] Acct: [id number] Name: SNEHA WEI Rep #: [id number] : 1980 M 44 From: Fadi Baker MD PCP: Dr. Liliane Epps, DO Status: REG CLI Study: Extremity Lower without Contra Date of Exam: 0 04/18/24 Exam# [id number] Ordering Dr: Jordi Perkins DPM [id number] STUDY: CT LEFT ANKLE / FOOT WITHOUT CONTRAST REASON FOR EXAM: Male, 44 years old. CHARCOT''S JOINT TECHNIQUE: Axial CT images of the left lower extremity was performed without IV contrast material. Coronal and sagittal reformats were provided. The protocol utilizes one or more of the following dose reduction techniques: automated exposure control, adjustment of mA and/or kV according to patient size, and/or use of iterative reconstruction technique. RADIATION DOSAGE (If Supplied By Facility): CTDIvol = ( 15.35 ) mGy, DLP = ( 475.39 ) mGycm COMPARISON: Left foot CT dated 04/02/2024. FINDINGS: Bones: Again seen are external fixation devices around the ankle and foot with fixation pins through the tibia, calcaneus, and metatarsals. Again seen is an intramedullary vance extending through the tibia, talus, and calcaneus. 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 There are old healed fractures of the second through fifth metatarsals. Again seen is resection of the distal fibula. Osseous structures are otherwise intact without evidence of fracture or dislocation. No lytic or blastic osseous masses. Soft Tissues: There is a persistent wound along the lateral aspect of the ankle with soft tissue gas entering the lateral talus as well as persistent small bubbles of gas in the talus adjacent to the intramedullary vance (axial series 3 images 124-135). There is generalized soft tissue swelling around the ankle and foot. The deep soft tissue structures are unremarkable. CT/Extremity Lower without Contra IMPRESSION: Persistent external fixation hardware around the ankle and foot. Persistent intramedullary vance extending through the tibia, talus, and calcaneus. Persistent wound along the lateral aspect of the ankle with soft tissue gas entering the lateral talus as well as persistent small bubbles of gas in the talus adjacent to the intramedullary vance (which again could be due to recent surgical instrumentation or developing gas-forming infection). 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 Old healed fractures of the second through fifth metatarsals. Electronically Signed: Fadi Baker MD at 10:50 EDT , CC: DPLd Perkins; Dr. Liliane Epps, Doctor Of Pharmacy: Signed Normal [facility] Basic Metabolic Profile (BMP )on 04-12-2024 BUN/CRE 19.3 RATIO Normal 10-20 [facility] Comment on above: Performed By: #### M 100.1999, M300.2000, M300.3000, M100.4001, M100.3000, M600.2200, M600.1999 #### [facility] [address] [place], [address] CA,Total 9.3 mg/dL Normal 8.5-10.1 [facility] Comment on above: Performed By: #### M 100.1999, M300.2000, M300.3000, M100.4001, M100.3000, M600.2200, M600.1999 #### [facility] [address] [place], [address] Chloride [Moles/Vol] 107 mmol/L Normal 98-107 [facility] Comment on above: Performed By: #### M 100.1999, M300.2000, M300.3000, M100.4001, M100.3000, M600.2200, M600.1999 #### [facility] [address] [place], [address] CO2 [Moles/Vol] 27.0 mmol/L Normal 21.0-32.0 [facility] Comment on above: Performed By: #### M 100.2000, M300.2000, M300.3000, M100.4001, M100.3000, M600.2200, M600.1999 #### [facility] [address] [place], [address] Creatinine [Mass/Vol] 0.83 mg/dL Normal 0.70-1.30 [facility] Comment on above: Result Comment: The validity of the calculated GFR GFRAA in patients over 70 years has not been determined. Clinical correlation is essential. Performed By: #### M 100.1999, M300.2000, M300.3000, M100.4001, M100.3000, M600.2200, M600.1999 #### [facility] [address] [place], [address] EST GFR - AA 131 mL/min Normal >60 [facility] Comment on above: Result Comment: Afri can Citizen [place] GFR Calc Performed By: #### M 100.1999, M300.2000, M300.3000, M100.4001, M100.3000, M600.2200, M600.1999 #### [facility] [address] [place], [address] GAP 6 Normal 5-15 [facility] Comment on above: Performed By: #### M 100.1999, M300.2000, M300.3000, M100.4001, M100.3000, M600.2200, M600.1999 #### [facility] [address] [place], [address] GFR/1.73 sq M.predicted among non-blacks MDRD (S/P/Bld) [Vol rate/Area] 108 mL/min/{1.73_m2} Normal >60 [facility] Comment on above: Result Comment: Non- GFR Calc Performed By: #### M 100.1999, M300.2000, M300.3000, M100.4001, M100.3000, M600.2200, M600.1999 #### [facility] [address] [place], [address] Glucose [Mass/Vol] 95 mg/dL Normal 74-106 [facility] Comment on above: Performed By: #### M 100.1999, M300.2000, M300.3000, M100.4001, M100.3000, M600.2200, M600.1999 #### [facility] [address] [place], [address] Potassium [Moles/Vol] 4.0 mmol/L Normal 3.5-5.1 [facility] Comment on above: Performed By: #### M 100.1999, M300.2000, M300.3000, M100.4001, M100.3000, M600.2200, M600.1999 #### [facility] [address] [place], [address] Sodium [Moles/Vol] 140 mmol/L Normal 136-145 [facility] Comment on above: Performed By: #### M 100.1999, M300.2000, M300.3000, M100.4001, M100.3000, M600.2200, M600.1999 #### [facility] [address] [place], [address] Urea nitrogen [Mass/Vol] 16 mg/dL Normal 7-18 [facility] Comment on above: Performed By: #### M 100.1999, M300.2000, M300.3000, M100.4001, M100.3000, M600.2200, M600.1999 #### [facility] [address] [place], [address] CBC-Complete Blood Cnt No Di ffon 04-12-2024 Erythrocyte distribution width (RBC) [Ratio] 17.2 % High 11.6-14.6 [facility] Comment on above: Performed By: #### M 100.1999, M300.2000, M300.3000, M100.4001, M100.3000, M600.2200, M600.1999 #### [facility] [address] [place], [address] Hematocrit (Bld) [Volume fraction] 39.7 % Low 40-54 [facility] Comment on above: Performed By: #### M 100.1999, M300.2000, M300.3000, M100.4001, M100.3000, M600.2200, M600.1999 #### [facility] [address] [place], [address] Hemoglobin (Bld) [Mass/Vol] 12.1 g/dL Low 13.0-16.5 [facility] Comment on above: Performed By: #### M 100.1999, M300.2000, M300.3000, M100.4001, M100.3000, M600.2200, M600.1999 #### [facility] [address] [place], [address] MCH (RBC) [Entitic mass] 23.6 pg Low 27.0-32.0 [facility] Comment on above: Performed By: #### M 100, M300.1999, M300.3000, M100.4001, M100.3000, M600.2200, M600.1999 #### [facility] [address] [place], [address] MCHC (RBC) [Mass/Vol] 30.5 g/dL Low 32-36 [facility] Comment on above: Performed By: #### M 100.1999, M300.2000, M300.3000, M100.4001, M100.3000, M600.2200, M600.1999 #### [facility] [address] [place], [address] MCV (RBC) [Entitic vol] 77.4 fL Low 80-94 [facility] Comment on above: Performed By: #### M 100.1999, M300.2000, M300.3000, M100.4001, M100.3000, M600.2200, M600.1999 #### [facility] [address] [place], [address] Platelet mean volume (Bld) [Entitic vol] 10.6 fL Normal 6.2-12.0 [facility] Comment on above: Performed By: #### M 100.1999, M300.2000, M300.3000, M100.4001, M100.3000, M600.2200, M600.2000 #### [facility] [address] [place], [address] Platelets (Bld) [#/Vol] 221 10*3/uL Normal 150-450 [facility] Comment on above: Performed By: #### M 100.1999, M300.2000, M300.3000, M100.4001, M100.3000, M600.2200, M600.1999 #### [facility] [address] [place], [address] RBC (Bld) [#/Vol] 5.13 10*6/uL Normal 4.6-6.2 [facility] Comment on above: Performed By: #### M 100.1999, M300.2000, M300.3000, M100.4001, M100.3000, M600.2200, M600.1999 #### [facility] [address] [place], [address] RDW SD 47.8 fl High 35.1-43.9 [facility] Comment on above: Performed By: #### M 100.1999, M300.2000, M300.3000, M100.4001, M100.3000, M600.2200, M600.1999 #### [facility] [address] [place], [address] WBC (Bld) [#/Vol] 4.3 10*3/uL Low 4.4-11.0 [facility] Comment on above: Performed By: #### M 100.1999, M300.2000, M300.3000, M100.4001, M100.3000, M600.2200, M600.2000 #### [facility] [address] [place], [address] Erythrocyte Sed Rateon 04-12 SED RATE 19 mm/hr Normal 0-20 [facility] Comment on above: Performed By: #### M 100.1999, M300.2000, M300.3000, M100.4001, M100.3000, M600.2200, M600.1999 #### [facility] [address] [place], [address] Vancomycin, Trough Levelon 0 04-12-2024 VANCO, TROUGH 14.0 ug/mL Normal 5.0-15.0 [facility] Comment on above: Order Comment: 1347 Result Comment: VANC OMYCIN STANDARED DRUG THERAPY TROUGH LEVEL: 5.0 - 15.0 mg/L VANCOMYCIN HIGH INTENSITY THERAPY TROUGH LEVEL: 15.0 - 20.0 mg/L High Intensity therapy recommended for serious life threatening infections include: - Meningitis -Endocarditis -Pneumonia (Ventilator/Healtcare Associated) -Sepsis PLEASE CONTACT PHARMACY SERVICES (#[id number]) FOR INTERPRETATION OF RESULTS. Performed By: #### M 100.1999, M300.1999, M300.3000, M100.4001, M100.3000, M600.2200, M600.1999 #### [facility] [address] [place], [address] Basic Metabolic Profile (BMP )on 04-05-2024 BUN/CRE 21.7 RATIO High 10-20 [facility] Comment on above: Order Comment: CBC Performed By: #### M 100.1999, M300.1999, M300.3000, M100.4001, M100.3000, M600.2200, M600.1999 #### [facility] [address] [place], [address] CA,Total 9.3 mg/dL Normal 8.5-10.1 [facility] Comment on above: Order Comment: CBC Performed By: #### M 100.1999, M300.2000, M300.3000, M100.4001, M100.3000, M600.2200, M600.1999 #### [facility] [address] [place], [address] Chloride [Moles/Vol] 105 mmol/L Normal 98-107 [facility] Comment on above: Order Comment: CBC Performed By: #### M 100.1999, M300.1999, M300.3000, M100.4001, M100.3000, M600.2200, M600.1999 #### [facility] [address] [place], [address] CO2 [Moles/Vol] 28.0 mmol/L Normal 21.0-32.0 [facility] Comment on above: Order Comment: CBC Performed By: #### M 100, M300.1999, M300.3000, M100.4001, M100.3000, M600.2200, M600.1999 #### [facility] [address] [place], [address] Creatinine [Mass/Vol] 0.83 mg/dL Normal 0.70-1.30 [facility] Comment on above: Order Comment: CBC Result Comment: The validity of the calculated GFR GFRAA in patients over 70 years has not been determined. Clinical correlation is essential. Performed By: #### M 100.1999, M300.1999, M300.3000, M100.4001, M100.3000, M600.2200, M600.1999 #### [facility] [address] [place], [address] EST GFR - AA 131 mL/min Normal >60 [facility] Comment on above: Order Comment: CBC Result Comment: Afri can Citizen [place] GFR Calc Performed By: #### M 100.1999, M300.1999, M300.3000, M100.4001, M100.3000, M600.2200, M600.1999 #### [facility] [address] [place], [address] GAP 6 Normal 5-15 [facility] Comment on above: Order Comment: CBC Performed By: #### M 100.1999, M300.2000, M300.3000, M100.4001, M100.3000, M600.2200, M600.1999 #### [facility] [address] [place], [address] GFR/1.73 sq M.predicted among non-blacks MDRD (S/P/Bld) [Vol rate/Area] 108 mL/min/{1.73_m2} Normal >60 [facility] Comment on above: Order Comment: CBC Result Comment: Non- GFR Calc Performed By: #### M 100.1999, M300.2000, M300.3000, M100.4001, M100.3000, M600.2200, M600.1999 #### [facility] [address] [place], [address] Glucose [Mass/Vol] 89 mg/dL Normal 74-106 [facility] Comment on above: Order Comment: CBC Performed By: #### M , M300.1999, M300.3000, M100.4001, M100.3000, M600.2200, M600.1999 #### [facility] [address] [place], [address] Potassium [Moles/Vol] 3.9 mmol/L Normal 3.5-5.1 [facility] Comment on above: Order Comment: CBC Performed By: #### M 100.1999, M300.1999, M300.3000, M100.4001, M100.3000, M600.2200, M600.1999 #### [facility] [address] [place], [address] Sodium [Moles/Vol] 139 mmol/L Normal 136-145 [facility] Comment on above: Order Comment: CBC Performed By: #### M 100.1999, M300.2000, M300.3000, M100.4001, M100.3000, M600.2200, M600.1999 #### [facility] [address] [place], [address] Urea nitrogen [Mass/Vol] 18 mg/dL Normal 7-18 [facility] Comment on above: Order Comment: CBC Performed By: #### M 100.1999, M300.2000, M300.3000, M100.4001, M100.3000, M600.2200, M600.1999 #### [facility] [address] [place], [address] CBC-Complete Blood Cnt No ffon 04-05-2024 Erythrocyte distribution width (RBC) [Ratio] 16.7 % High 11.6-14.6 [facility] Comment on above: Performed By: #### M 100.1999, M300.1999, M300.3000, M100.4001, M100.3000, M600.2200, M600.1999 #### [facility] [address] [place], [address] Hematocrit (Bld) [Volume fraction] 40.9 % Normal 40-54 [facility] Comment on above: Performed By: #### M 100.1999, M300.1999, M300.3000, M100.4001, M100.3000, M600.2200, M600.1999 #### [facility] [address] [place], [address] Hemoglobin (Bld) [Mass/Vol] 12.2 g/dL Low 13.0-16.5 [facility] Comment on above: Performed By: #### M 100.1999, M300.2000, M300.3000, M100.4001, M100.3000, M600.2200, M600.1999 #### [facility] [address] [place], [address] MCH (RBC) [Entitic mass] 23.1 pg Low 27.0-32.0 [facility] Comment on above: Performed By: #### M 100.1999, M300.1999, M300.3000, M100.4001, M100.3000, M600.2200, M600.1999 #### [facility] [address] [place], [address] MCHC (RBC) [Mass/Vol] 29.8 g/dL Low 32-36 [facility] Comment on above: Performed By: #### M 100.1999, M300.2000, M300.3000, M100.4001, M100.3000, M600.2200, M600.1999 #### [facility] [address] [place], [address] MCV (RBC) [Entitic vol] 77.5 fL Low 80-94 [facility] Comment on above: Performed By: #### M 100.1999, M300.2000, M300.3000, M100.4001, M100.3000, M600.2200, M600.1999 #### [facility] [address] [place], [address] Platelet mean volume (Bld) [Entitic vol] 10.2 fL Normal 6.2-12.0 [facility] Comment on above: Performed By: #### M 100.1999, M300.2000, M300.3000, M100.4001, M100.3000, M600.2200, M600.1999 #### [facility] [address] [place], [address] Platelets (Bld) [#/Vol] 251 10*3/uL Normal 150-450 [facility] Comment on above: Performed By: #### M 100.1999, M300.2000, M300.3000, M100.4001, M100.3000, M600.2200, M600.1999 #### [facility] [address] [place], [address] RBC (Bld) [#/Vol] 5.28 10*6/uL Normal 4.6-6.2 [facility] Comment on above: Performed By: #### M 100.1999, M300.2000, M300.3000, M100.4001, M100.3000, M600.2200, M600.1999 #### [facility] [address] [place], [address] RDW SD 45.5 fl High 35.1-43.9 [facility] Comment on above: Performed By: #### M 100.1999, M300.2000, M300.3000, M100.4001, M100.3000, M600.2200, M600.1999 #### [facility] [address] [place], [address] WBC (Bld) [#/Vol] 4.7 10*3/uL Normal 4.4-11.0 [facility] Comment on above: Performed By: #### M 100.1999, M300.2000, M300.3000, M100.4001, M100.3000, M600.2200, M600.1999 #### [facility] [address] [place], [address] Erythrocyte Sed Rateon 04-05 SED RATE 19 mm/hr Normal 0-20 [facility] Comment on above: Performed By: #### M 100.1999, M300.2000, M300.3000, M100.4001, M100.3000, M600.2200, M600.1999 #### [facility] [address] [place], [address] Vancomycin, Trough Levelon 0 04-05-2024 VANCO, TROUGH 14.2 ug/mL Normal 5.0-15.0 [facility] Comment on above: Order Comment: 0000 Result Comment: VANC OMYCIN STANDARED DRUG THERAPY TROUGH LEVEL: 5.0 - 15.0 mg/L VANCOMYCIN HIGH INTENSITY THERAPY TROUGH LEVEL: 15.0 - 20.0 mg/L High Intensity therapy recommended for serious life threatening infections include: - Meningitis -Endocarditis -Pneumonia (Ventilator/Healtcare Associated) -Sepsis PLEASE CONTACT PHARMACY SERVICES (#[id number]) FOR INTERPRETATION OF RESULTS. Performed By: #### M 100.2000, M300.2000, M300.3000, M100.4001, M100.3000, M600.2200, M600.2000 #### [facility] [address] [place], [address] Extremity Lower without Cont raon 04-02-2024 Extremity Lower without Contra [facility] [address] [place] [address] Extremity Lower without Contra MR#: [id number] Acct: [id number] Name: SNEHA WEI Jr. Rep #: [id number] : 1980 M 44 From: Fadi Baker MD PCP: Dr. Liliane Epps, DO Status: REG CLI Study: Extremity Lower without Contra Date of Exam: 0 04/02/24 Exam# [id number] Ordering Dr: Jordi Perkins DPM [id number] CT LEFT LOWER EXTREMITY WITH 3-D IMAGING CLINICAL INDICATION: WOUND TECHNIQUE: Axial CT images of the left lower extremity was performed without IV contrast material. Coronal and sagittal reformats were provided. The protocol utilizes one or more of the following dose reduction techniques: automated exposure control, adjustment of mA and/or kV according to patient size, and/or use of iterative reconstruction technique. RADIATION DOSAGE (If Supplied By Facility): CTDIvol = ( 15.37 ) mGy, DLP = ( 651.14 ) mGycm COMPARISON: Left foot radiographs dated 12/06/2023. FINDINGS: Bones: There are external fixation devices around the ankle and foot with fixation pins through the tibia, calcaneus, and metatarsals. There is an intramedullary vance extending through the tibia, talus, and calcaneus. Again seen is extensive neuropathic arthropathy in the hindfoot/midfoot. There are old healed fractures of the second through fifth metatarsals. Soft Tissues: There are small bubbles of gas in the talus adjacent to the intramedullary vance (axial series 3 images 91-94). There is generalized soft tissue swelling around the ankle and foot. The deep soft tissue structures are unremarkable. CT/Extremity Lower without Contra IMPRESSION: External fixation hardware around the ankle and foot. Intramedullary vance extending through the tibia, talus, and calcaneus, with small bubbles of gas in the talus adjacent to the intramedullary vance (which could be due to recent surgical instrumentation or developing gas-forming infection). 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 Old healed fractures of the second through fifth metatarsals. Electronically Signed: Fadi Baker MD at 14:56 EDT , CC: DPLd Perkins; Dr. Liliane Epps, DO Doctor Of Pharmacy: Signed Normal [facility] Basic Metabolic Profile (BMP )on 03-29-2024 BUN/CRE 19.4 RATIO Normal 10-20 [facility] Comment on above: Order Comment: FAX R ESULTS TO [phone] Performed By: #### M 100.1999, M300.2000, M300.3000, M100.4001, M100.3000, M600.2200, M600.1999 #### [facility] [address] [place], [place], [id number] CA,Total 9.2 mg/dL Normal 8.5-10.1 [facility] Comment on above: Order Comment: FAX R ESULTS TO [phone] Performed By: #### M 100.1999, M300.2000, M300.3000, M100.4001, M100.3000, M600.2200, M600.1999 #### [facility] [address] [place], [address] Chloride [Moles/Vol] 105 mmol/L Normal 98-107 [facility] Comment on above: Order Comment: FAX R ESULTS TO [phone] Performed By: #### M 100.1999, M300.2000, M300.3000, M100.4001, M100.3000, M600.2200, M600.1999 #### [facility] [address] [place], [address] CO2 [Moles/Vol] 25.0 mmol/L Normal 21.0-32.0 [facility] Comment on above: Order Comment: FAX R ESULTS TO [phone] Performed By: #### M 100.1999, M300.2000, M300.3000, M100.4001, M100.3000, M600.2200, M600.1999 #### [facility] [address] [place], [address] Creatinine [Mass/Vol] 0.82 mg/dL Normal 0.70-1.30 [facility] Comment on above: Order Comment: FAX R ESULTS TO [phone] Result Comment: The validity of the calculated GFR GFRAA in patients over 70 years has not been determined. Clinical correlation is essential. Performed By: #### M 100.1999, M300.1999, M300.3000, M100.4001, M100.3000, M600.2200, M600.1999 #### [facility] [address] [place], [address] EST GFR - AA 132 mL/min Normal >60 [facility] Comment on above: Order Comment: FAX R ESULTS TO [phone] Result Comment: Afri can Citizen [place] GFR Calc Performed By: #### M 100.1999, M300.2000, M300.3000, M100.4001, M100.3000, M600.2200, M600.1999 #### [facility] [address] [place], [address] GAP 8 Normal 5-15 [facility] Comment on above: Order Comment: FAX R ESULTS TO [phone] Performed By: #### M 100.1999, M300.2000, M300.3000, M100.4001, M100.3000, M600.2200, M600.1999 #### [facility] [address] [place], [address] GFR/1.73 sq M.predicted among non-blacks MDRD (S/P/Bld) [Vol rate/Area] 109 mL/min/{1.73_m2} Normal >60 [facility] Comment on above: Order Comment: FAX R ESULTS TO [phone] Result Comment: Non- GFR Calc Performed By: #### M 100.1999, M300.1999, M300.3000, M100.4001, M100.3000, M600.2200, M6 #### [facility] [address] [place], [address] Glucose [Mass/Vol] 114 mg/dL High 74-106 [facility] Comment on above: Order Comment: FAX R ESULTS TO [phone] Result Comment: Fast ing Glucose result from 100 to 125 mg/dL suggests IMPAIRED HOMEOSTASIS per A.D.A. criteria. Performed By: #### M , M300.1999, M300.3000, M100.4001, M100.3000, M600.2200, M600 #### [facility] [address] [place], [place], [address] Potassium [Moles/Vol] 4.1 mmol/L Normal 3.5-5.1 [facility] Comment on above: Order Comment: FAX R ESULTS TO [phone] Performed By: #### M 100.1999, M300.1999, M300.3000, M100.4001, M100.3000, M600.2200, M600.1999 #### [facility] [address] [place], [address] Sodium [Moles/Vol] 138 mmol/L Normal 136-145 [facility] Comment on above: Order Comment: FAX R ESULTS TO [phone] Performed By: #### M 100.1999, M300.1999, M300.3000, M100.4001, M100.3000, M600.2200, M600.1999 #### [facility] [address] [place], [address] Urea nitrogen [Mass/Vol] 16 mg/dL Normal 7-18 [facility] Comment on above: Order Comment: FAX R ESULTS TO [phone] Performed By: #### M 100.1999, M300.2000, M300.3000, M100.4001, M100.3000, M600.2200, M600.1999 #### [facility] [address] [place], [address] CBC-Complete Blood Cnt No Di ffon 03-29-2024 Erythrocyte distribution width (RBC) [Ratio] 16.1 % High 11.6-14.6 [facility] Comment on above: Performed By: #### M 100.1999, M300.2000, M300.3000, M100.4001, M100.3000, M600.2200, M600.1999 #### [facility] [address] [place], [address] Hematocrit (Bld) [Volume fraction] 39.2 % Low 40-54 [facility] Comment on above: Performed By: #### M 100.1999, M300.2000, M300.3000, M100.4001, M100.3000, M600.2200, M600.1999 #### [facility] [address] [place], [address] Hemoglobin (Bld) [Mass/Vol] 12.1 g/dL Low 13.0-16.5 [facility] Comment on above: Performed By: #### M 100.1999, M300.2000, M300.3000, M100.4001, M100.3000, M600.2200, M600.1999 #### [facility] [address] [place], [address] MCH (RBC) [Entitic mass] 23.6 pg Low 27.0-32.0 [facility] Comment on above: Performed By: #### M 100.2000, M300.2000, M300.3000, M100.4001, M100.3000, M600.2200, M600.1999 #### [facility] [address] [place], [address] MCHC (RBC) [Mass/Vol] 30.9 g/dL Low 32-36 [facility] Comment on above: Performed By: #### M 100.1999, M300.2000, M300.3000, M100.4001, M100.3000, M600.2200, M600.1999 #### [facility] [address] [place], [address] MCV (RBC) [Entitic vol] 76.6 fL Low 80-94 [facility] Comment on above: Performed By: #### M 100.1999, M300.2000, M300.3000, M100.4001, M100.3000, M600.2200, M600.1999 #### [facility] [address] [place], [address] Platelet mean volume (Bld) [Entitic vol] 9.8 fL Normal 6.2-12.0 [facility] Comment on above: Performed By: #### M 100.1999, M300.2000, M300.3000, M100.4001, M100.3000, M600.2200, M600.1999 #### [facility] [address] [place], [address] Platelets (Bld) [#/Vol] 278 10*3/uL Normal 150-450 [facility] Comment on above: Performed By: #### M 100.1999, M300.2000, M300.3000, M100.4001, M100.3000, M600.2200, M600.1999 #### [facility] [address] [place], [address] RBC (Bld) [#/Vol] 5.12 10*6/uL Normal 4.6-6.2 [facility] Comment on above: Performed By: #### M 100.1999, M300.2000, M300.3000, M100.4001, M100.3000, M600.2200, M600.1999 #### [facility] [address] [place], [address] RDW SD 43.3 fl Normal 35.1-43.9 [facility] Comment on above: Performed By: #### M 100.1999, M300.2000, M300.3000, M100.4001, M100.3000, M600.2200, M600.1999 #### [facility] [address] [place], [address] WBC (Bld) [#/Vol] 5.9 10*3/uL Normal 4.4-11.0 [facility] Comment on above: Performed By: #### M 100.1999, M300.2000, M300.3000, M100.4001, M100.3000, M600.2200, M600.1999 #### [facility] [address] [place], [place], [address] Erythrocyte Sed Rateon 03-29 SED RATE 29 mm/hr High 0-20 [facility] Comment on above: Performed By: #### M 100.1999, M300.2000, M300.3000, M100.4001, M100.3000, M600.2200, M600.1999 #### [facility] [address] [place], [place], [id number] Vancomycin, Trough Levelon 0 03-29-2024 VANCO, TROUGH 13.9 ug/mL Normal 5.0-15.0 [facility] Comment on above: Order Comment: 799 Result Comment: VANC OMYCIN STANDARED DRUG THERAPY TROUGH LEVEL: 5.0 - 15.0 mg/L VANCOMYCIN HIGH INTENSITY THERAPY TROUGH LEVEL: 15.0 - 20.0 mg/L High Intensity therapy recommended for serious life threatening infections include: - Meningitis -Endocarditis -Pneumonia (Ventilator/Healtcare Associated) -Sepsis PLEASE CONTACT PHARMACY SERVICES (#[id number]) FOR INTERPRETATION OF RESULTS. Performed By: #### M 100.1999, M300.2000, M300.3000, M100.4001, M100.3000, M600.2200, M600.1999 #### [facility] [address] [place], [address] Basic Metabolic Profile (BMP )on 03-22-2024 BUN/CRE 23.0 RATIO High 10-20 [facility] Comment on above: Performed By: #### M 100.1999, M300.2000, M300.3000, M100.4001, M100.3000, M600.2200, M600.1999 #### [facility] [address] [place], [address] CA,Total 9.4 mg/dL Normal 8.5-10.1 [facility] Comment on above: Performed By: #### M 100, M300.1999, M300.3000, M100.4001, M100.3000, M600.2200, M600.1999 #### [facility] [address] [place], [address] Chloride [Moles/Vol] 103 mmol/L Normal 98-107 [facility] Comment on above: Performed By: #### M 100.1999, M300.1999, M300.3000, M100.4001, M100.3000, M600.2200, M600.1999 #### [facility] [address] [place], [address] CO2 [Moles/Vol] 28.0 mmol/L Normal 21.0-32.0 [facility] Comment on above: Performed By: #### M 100.1999, M300.2000, M300.3000, M100.4001, M100.3000, M600.2200, M600.1999 #### [facility] [address] [place], [address] Creatinine [Mass/Vol] 0.74 mg/dL Normal 0.70-1.30 [facility] Comment on above: Result Comment: The validity of the calculated GFR GFRAA in patients over 70 years has not been determined. Clinical correlation is essential. Performed By: #### M 100.1999, M300.2000, M300.3000, M100.4001, M100.3000, M600.2200, M600.1999 #### [facility] [address] [place], [address] EST GFR - AA 150 mL/min Normal >60 [facility] Comment on above: Result Comment: Afri can [place] GFR Calc Performed By: #### M 100.1999, M300.2000, M300.3000, M100.4001, M100.3000, M600.2200, M600.1999 #### [facility] [address] [place], [address] GAP 7 Normal 5-15 [facility] Comment on above: Performed By: #### M 100.1999, M300.2000, M300.3000, M100.4001, M100.3000, M600.2200, M600.1999 #### [facility] [address] [place], [address] GFR/1.73 sq M.predicted among non-blacks MDRD (S/P/Bld) [Vol rate/Area] 124 mL/min/{1.73_m2} Normal >60 [facility] Comment on above: Result Comment: Non- GFR Calc Performed By: #### M 100.1999, M300.2000, M300.3000, M100.4001, M100.3000, M600.2200, M600.1999 #### [facility] [address] [place], [address] Glucose [Mass/Vol] 100 mg/dL Normal 74-106 [facility] Comment on above: Result Comment: Fast ing Glucose result from 100 to 125 mg/dL suggests IMPAIRED HOMEOSTASIS per A.D.A. criteria. Performed By: #### M 100.1999, M300.2000, M300.3000, M100.4001, M100.3000, M600.2200, M600.1999 #### [facility] [address] [place], [address] Potassium [Moles/Vol] 4.2 mmol/L Normal 3.5-5.1 [facility] Comment on above: Performed By: #### M 100.1999, M300.2000, M300.3000, M100.4001, M100.3000, M600.2200, M600.1999 #### [facility] [address] [place], [address] Sodium [Moles/Vol] 138 mmol/L Normal 136-145 [facility] Comment on above: Performed By: #### M 100, M300.1999, M300.3000, M100.4001, M100.3000, M600.2200, M600.1999 #### [facility] [address] [place], [address] Urea nitrogen [Mass/Vol] 17 mg/dL Normal 7-18 [facility] Comment on above: Performed By: #### M 100.1999, M300.2000, M300.3000, M100.4001, M100.3000, M600.2200, M600.1999 #### [facility] [address] [place], [address] CBC-Complete Blood Cnt No Di ffon 03-22-2024 Erythrocyte distribution width (RBC) [Ratio] 15.3 % High 11.6-14.6 [facility] Comment on above: Performed By: #### M 100.1999, M300.2000, M300.3000, M100.4001, M100.3000, M600.2200, M600.1999 #### [facility] [address] [place], [address] Hematocrit (Bld) [Volume fraction] 38.9 % Low 40-54 [facility] Comment on above: Performed By: #### M 100.1999, M300.2000, M300.3000, M100.4001, M100.3000, M600.2200, M600.1999 #### [facility] [address] [place], [address] Hemoglobin (Bld) [Mass/Vol] 11.7 g/dL Low 13.0-16.5 [facility] Comment on above: Performed By: #### M 100.1999, M300.2000, M300.3000, M100.4001, M100.3000, M600.2200, M600.1999 #### [facility] [address] [place], [address] MCH (RBC) [Entitic mass] 22.9 pg Low 27.0-32.0 [facility] Comment on above: Performed By: #### M 100.1999, M300.1999, M300.3000, M100.4001, M100.3000, M600.2200, M600.1999 #### [facility] [address] [place], [address] MCHC (RBC) [Mass/Vol] 30.1 g/dL Low 32-36 [facility] Comment on above: Performed By: #### M 100.1999, M300.1999, M300.3000, M100.4001, M100.3000, M600.2200, M600.1999 #### [facility] [address] [place], [address] MCV (RBC) [Entitic vol] 76.3 fL Low 80-94 [facility] Comment on above: Performed By: #### M 100.1999, M300.2000, M300.3000, M100.4001, M100.3000, M600.2200, M600.1999 #### [facility] [address] [place], [address] Platelet mean volume (Bld) [Entitic vol] 9.8 fL Normal 6.2-12.0 [facility] Comment on above: Performed By: #### M 100.1999, M300.2000, M300.3000, M100.4001, M100.3000, M600.2200, M600.1999 #### [facility] [address] [place], [address] Platelets (Bld) [#/Vol] 287 10*3/uL Normal 150-450 [facility] Comment on above: Performed By: #### M 100.1999, M300.2000, M300.3000, M100.4001, M100.3000, M600.2200, M600.1999 #### [facility] [address] [place], [address] RBC (Bld) [#/Vol] 5.10 10*6/uL Normal 4.6-6.2 [facility] Comment on above: Performed By: #### M 100.1999, M300.2000, M300.3000, M100.4001, M100.3000, M600.2200, M600.1999 #### [facility] [address] [place], [address] RDW SD 41.7 fl Normal 35.1-43.9 [facility] Comment on above: Performed By: #### M 100.1999, M300.2000, M300.3000, M100.4001, M100.3000, M600.2200, M600.1999 #### [facility] [address] [place], [address] WBC (Bld) [#/Vol] 5.6 10*3/uL Normal 4.4-11.0 [facility] Comment on above: Performed By: #### M 100.1999, M300.2000, M300.3000, M100.4001, M100.3000, M600.2200, M600.1999 #### [facility] [address] [place], [address] Erythrocyte Sed Rateon 03-22 SED RATE 42 mm/hr High 0-20 [facility] Comment on above: Performed By: #### M 100.2000, M300.2000, M300.3000, M100.4001, M100.3000, M600.2200, M600.1999 #### [facility] [address] [place], [address] Vancomycin, Trough Levelon 0 03-22-2024 VANCO, TROUGH 8.5 ug/mL Normal 5.0-15.0 [facility] Comment on above: Order Comment: 5414 Result Comment: VANC OMYCIN STANDARED DRUG THERAPY TROUGH LEVEL: 5.0 - 15.0 mg/L VANCOMYCIN HIGH INTENSITY THERAPY TROUGH LEVEL: 15.0 - 20.0 mg/L High Intensity therapy recommended for serious life threatening infections include: - Meningitis -Endocarditis -Pneumonia (Ventilator/Healtcare Associated) -Sepsis PLEASE CONTACT PHARMACY SERVICES (#[id number]) FOR INTERPRETATION OF RESULTS. Performed By: #### M 100.1999, M300.2000, M300.3000, M100.4001, M100.3000, M600.2200, M600.1999 #### [facility] [address] [place], [place], [id number] [phone], Anaerobic Any Sourc ирина 03-18-2024 CUAN COLLECTED IN [id number] LEFT ANKLE No growth in 5 days. Normal [facility] Comment on above: Performed By: #### M 100.1999, M300.2000, M300.3000, M100.4001, M100.3000, M600.2200, M600.1999 #### [facility] [address] [place], [address] Wound Cultureon 03-17-2024 WC . . #1 Gram positive vance suggestive of a diphtheroid. Susceptibility not normally performed on this organism Corynebacterium striatum Amount Growth Rare Enterococcus faecalis Amount Growth Rare Enterococcus faecalis: REACTION Ampicillin Islt IVETTE <=2 S Gentamicin Synergy Susc Islt SYN-S S Linezolid Islt IVETTE 2 S Streptomycin High Pot Susc Islt SYN-S S Vancomycin Islt IVETTE 1 S Normal [facility] Comment on above: Performed By: #### M 100.1999, M300.2000, M300.3000, M100.4001, M100.3000, M600.2200, M600.1999 #### [facility] [address] [place], [address] Bedside Glucoseon 03-16-2024 FINGERSTICK GLU 122 mg/dL High 74-106 [facility] Comment on above: Result Comment: SUNDAY GEMENT OF PATIENT CARE PER NURSING PROTOCOL Performed By: #### M 100.2999, M100.1999, M100.4001 #### [facility] [address] [place], [address] FINGERSTICK GLU 121 mg/dL High 74-106 [facility] Comment on above: Result Comment: SUNDAY GEMENT OF PATIENT CARE PER NURSING PROTOCOL Performed By: #### M 100.1999, M300.1999, M300.3000, M100.4001, M100.3000, M600.2200, M600.1999 #### [facility] [address] [place], [address] FINGERSTICK GLU 120 mg/dL High 74-106 [facility] Comment on above: Result Comment: SUNDAY GEMENT OF PATIENT CARE PER NURSING PROTOCOL Performed By: #### M 100.1999, M300.1999, M300.3000, M100.4001, M100.3000, M600.2200, M600.1999 #### [facility] [address] [place], [address] Culture, Anaerobic Any Sourc ирина 03-16-2024 CUAN . . COLLECTED IN OR-LEFT ANKLE TISSUE No anaerobic bacteria isolated. Normal [facility] Comment on above: Performed By: #### M 100.2999, M100.1999, M100.4001 #### [facility] [address] [place], [address] CUAN . . No anaerobic bacteria isolated. Normal [facility] Comment on above: Performed By: #### M 100.2000, M300.2000, M300.3000, M100.4001, M100.3000, M600.2200, M600.2000 #### [facility] [address] 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 Liliane Epps, DO Status:ADM IN Location: [address] Procedure Report Date of Procedure: 03/16/24 Assessment Plan Assessment/Plan (1) Infected hardware in left leg: QUALIFIERS: Encounter type: initial encounter Qualified Code(s): T84.7XXA - Infection and inflammatory reaction due to other internal orthopedic prosthetic devices, implants and grafts, initial encounter Procedures Radiology Radiology Access Procedures: PICC Procedure Time Out Time Out Informed consent given: Yes Consent signed: Yes Time out checklist: patient, procedure, site marked/identified, positioning of patient, supplies available and allergies confirmed Time out staff in room: Yes Time out verified: Yes Time out date: 03/16/24 Time out time: 13:00 PICC Line Consent Screening tool completed:: Yes Consent obtained:: Yes Consent given by (patient or responsible libertarian):: PATIENT Line successful (if no, document why in comments):: Yes 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 Date of Insertion: 03/16/24 Ok to use: Yes PICC Lot #: [id number] PICC Reference #: [id number] Microintroducer Used: Yes (in kit) Ultrasound/Equipment Used: Probe Cover Kit Trimmed Length (cm): 50 Insertion Length (cm): 50 Exposed Length (cm): 0 Tip Placement: Caval Atrial Junction Placement Confirmation: 3CG Insertion Vein: Left Basilic Insertion Attempts: 1 Local Anesthesia Used: Lidocaine 1% (in kit) Dressing Applied: Statlock and Tegaderm CHG Arm Measurement above site (in cm): 33 Patient Tolerated Procedure: Well Threading Difficulties: No Comments Comment: Patient identity was verified with two patient identifiers. Informed consent was obtained and time-out was completed. Hands were sanitized. The patient was positioned supine with left arm at 90 degrees. The patient's upper arm vasculature was assessed using ultrasound. Patency of the left basilic vein was confirmed and the vein was externally marked. An external measurement was obtained of 50 cm. External leads were applied to the patient's right upper chest and laterally and inferior of the umbilicus on the mid axillary line. Cap, mask, and prep gloves were donned. The underdrape was placed under the patient's arm. The site was prepped with chlorhexidine, and tourniquet was loosely applied. Prep gloves were discarded, and hands were sanitized. The sterile kit was opened with additional supplies dropped in. Sterile gown and gloves were donned, and the patient was draped. The sterile kit was assembled with needle, introducer, needless connector, and catheter lumen flushed with sterile normal saline. The marked site of insertion was anesthetized with 1% lidocaine from the kit. Patient tolerated well. The left basilic vein was then accessed using ultrasound guidance and guidewire was inserted to safety luke. The tourniquet was released. The access needle was removed while securing the guidewire in place. The site was again anesthetized with 1% lidocaine, prior to insertion of introducer sheath and dilator. Patient tolerated the insertion well. The catheter was trimmed to a length of 50 cm. Using 3C guidance, the catheter was then inserted through the introducer sheath, slowly. There was no resistance on insertion. The catheter followed the expected course of the vessel using 3CG tracking. The introducer sheath was retracted and peeled away, incrementally, while keeping the catheter secured. Maximal p-wave, without deflection, confirming placement in the cavoatrial junction, was obtained at an insertion length of 50 cm, leaving 0 cm external. The stylet was removed. A flushed needleless connector was attached to the lumen. Aspiration of the lumen was performed to remove any air and confirm blood return. Blood return was verified and the lumen was flushed with 10 ml of sterile normal saline in a pulsatile fashion. The lumen was clamped with the last pulsed flush. Total sterile flushes used for the insertion was 5 10 ml syringes, 1 from the kit. Finally, the insertion site was cleaned with chlorhexidine, and the catheter was secured using a StatLock. The site was covered with a Tegaderm CHG Dressing and disinfecting caps were applied. Baseline arm circumference was obtained at the insertion site and measured 33 cm. The patient was provided with a patient education handout on PICC line care of infection prevention, heavy lifting restriction, maintaining mobility, and watching for any signs of infection. The charge nurse is aware that the PICC line is ready for use. 03/16/24 1402 Cosigner Signature (if applicable): CC: DPLd Bacon (more content not included)... Normal [facility] Vancomycin, Trough Levelon 0 03-16-2024 VANCO, TROUGH 23.6 ug/mL High 5.0-15.0 [facility] Comment on above: Order Comment: Comme nts: Trough to be drawn 30 mins prior to scheduled [id number] Result Comment: VANC OMYCIN STANDARED DRUG THERAPY TROUGH LEVEL: 5.0 - 15.0 mg/L VANCOMYCIN HIGH INTENSITY THERAPY TROUGH LEVEL: 15.0 - 20.0 mg/L High Intensity therapy recommended for serious life threatening infections include: - Meningitis -Endocarditis -Pneumonia (Ventilator/Healtcare Associated) -Sepsis PLEASE CONTACT PHARMACY SERVICES (#[id number]) FOR INTERPRETATION OF RESULTS. Performed By: #### M 100, M300.1999, M300.3000, M100.4001, M100.3000, M600.2200, M6.1999 #### [facility] [address] [place], [place], [address] Wound Cultureon 03-16-2024 WC COLLECTED IN [id number] LEFT ANKLE Enterococcus faecalis Amount Growth Rare Enterococcus faecalis: REACTION Ampicillin Islt IVETTE <=2 S Gentamicin Synergy Susc Islt SYN-S S Linezolid Islt IVETTE 2 S Streptomycin High Pot Susc Islt SYN-S S Vancomycin Islt IVETTE 1 S Normal [facility] Comment on above: Performed By: #### M 100.1999, M3.1999, M300.3000, M100.4001, M100.3000, M600.2200, M600.1999 #### [facility] [address] [place], [address] WC . . COLLECTED IN OR-LEFT ANKLE TISSUE Enterococcus faecalis Amount Growth Rare Enterococcus faecalis: REACTION Ampicillin Islt IVETTE <=2 S Gentamicin Synergy Susc Islt SYN-S S Linezolid Islt IVETTE 2 S Streptomycin High Pot Susc Islt SYN-S S Vancomycin Islt IVETTE 1 S Normal [facility] Comment on above: Performed By: #### M 100.3000, M100.2000, M100.4001 #### [facility] [address] [place], [address] Basic Metabolic Profile (BMP )on 03-15-2024 BUN/CRE 20.5 RATIO High 10-20 [facility] Comment on above: Performed By: #### M 100.1999, M300.1999, M300.3000, M100.4001, M100.3000, M600.2200, M600.1999 #### [facility] [address] [place], [address] CA,Total 8.5 mg/dL Normal 8.5-10.1 [facility] Comment on above: Performed By: #### M 100.1999, M300.2000, M300.3000, M100.4001, M100.3000, M600.2200, M600.1999 #### [facility] [address] [place], [address] Chloride [Moles/Vol] 111 mmol/L High 98-107 [facility] Comment on above: Performed By: #### M 100.1999, M300.2000, M300.3000, M100.4001, M100.3000, M600.2200, M600.1999 #### [facility] [address] [place], [address] CO2 [Moles/Vol] 27.0 mmol/L Normal 21.0-32.0 [facility] Comment on above: Performed By: #### M 100.1999, M300.2000, M300.3000, M100.4001, M100.3000, M600.2200, M600.1999 #### [facility] [address] [place], [address] Creatinine [Mass/Vol] 0.73 mg/dL Normal 0.70-1.30 [facility] Comment on above: Result Comment: The validity of the calculated GFR GFRAA in patients over 70 years has not been determined. Clinical correlation is essential. Performed By: #### M 100.1999, M300.2000, M300.3000, M100.4001, M100.3000, M600.2200, M600.1999 #### [facility] [address] [place], [address] ECRCL 161.10 ml/min Normal [facility] Comment on above: Performed By: #### M 100.1999, M300.1999, M300.3000, M100.4001, M100.3000, M600.2200, M600.1999 #### [facility] [address] [place], [address] EST GFR - AA 152 mL/min Normal >60 [facility] Comment on above: Result Comment: Afri can Citizen [place] GFR Calc Performed By: #### M 100.1999, M300.1999, M300.3000, M100.4001, M100.3000, M600.2200, M600.1999 #### [facility] [address] [place], [address] GAP 4 Low 5-15 [facility] Comment on above: Performed By: #### M 100.1999, M300.2000, M300.3000, M100.4001, M100.3000, M600.2200, M600.1999 #### [facility] [address] [place], [address] GFR/1.73 sq M.predicted among non-blacks MDRD (S/P/Bld) [Vol rate/Area] 125 mL/min/{1.73_m2} Normal >60 [facility] Comment on above: Result Comment: Non- GFR Calc Performed By: #### M 100.1999, M300.2000, M300.3000, M100.4001, M100.3000, M600.2200, M600.1999 #### [facility] [address] [place], [address] Glucose [Mass/Vol] 116 mg/dL High 74-106 [facility] Comment on above: Result Comment: Fast ing Glucose result from 100 to 125 mg/dL suggests IMPAIRED HOMEOSTASIS per A.D.A. criteria. Performed By: #### M 100, M300.2000, M300.3000, M100.4001, M100.3000, M600.2200, M600.1999 #### [facility] [address] [place], [address] Potassium [Moles/Vol] 3.7 mmol/L Normal 3.5-5.1 [facility] Comment on above: Performed By: #### M , M300.2000, M300.3000, M100.4001, M100.3000, M600.2200, M600.1999 #### [facility] [address] [place], [address] Sodium [Moles/Vol] 142 mmol/L Normal 136-145 [facility] Comment on above: Performed By: #### M , M300.2000, M300.3000, M100.4001, M100.3000, M600.2200, M600.1999 #### [facility] [address] [place], [address] Urea nitrogen [Mass/Vol] 15 mg/dL Normal 7-18 [facility] Comment on above: Performed By: #### M , M300.1999, M300.3000, M100.4001, M100.3000, M600.2200, M600.1999 #### [facility] [address] [place], [address] Bedside Glucoseon 03-15-2024 FINGERSTICK GLU 121 mg/dL High 74-106 [facility] Comment on above: Result Comment: SUNDAY GEMENT OF PATIENT CARE PER NURSING PROTOCOL Performed By: #### M 100.1999, M300.2000, M300.3000, M100.4001, M100.3000, M600.2200, M600.1999 #### [facility] [address] [place], [address] FINGERSTICK GLU 136 mg/dL High 74-106 [facility] Comment on above: Result Comment: SUNDAY GEMENT OF PATIENT CARE PER NURSING PROTOCOL Performed By: #### M 100.1999, M300.1999, M300.3000, M100.4001, M100.3000, M600.2200, M600.1999 #### [facility] [address] [place], [address] FINGERSTICK GLU 155 mg/dL High 74-106 [facility] Comment on above: Result Comment: SUNDAY GEMENT OF PATIENT CARE PER NURSING PROTOCOL Performed By: #### M 100.1999, M300.2000, M300.3000, M100.4001, M100.3000, M600.2200, M600.1999 #### [facility] [address] [place], [address] FINGERSTICK GLU 111 mg/dL High 74-106 [facility] Comment on above: Result Comment: SUNDAY GEMENT OF PATIENT CARE PER NURSING PROTOCOL Performed By: #### M 100.1999, M300.2000, M300.3000, M100.4001, M100.3000, M600.2200, M600.1999 #### [facility] [address] [place], [address] CBC W/Diff, Automatedon 08-0 8-2023 Absolute Lymph 1.26 X10 3/uL Normal 0.83-4.51 [facility] Comment on above: Performed By: #### M 100.1999, M300.2000, M300.3000, M100.4001, M100.3000, M600.2200, M600.1999 #### [facility] [address] [place], [address] Absolute Neut 3.4 X10 3/uL Normal 2.0-7.7 [facility] Comment on above: Performed By: #### M 100.1999, M300.2000, M300.3000, M100.4001, M100.3000, M600.2200, M600.1999 #### [facility] [address] [place], [address] Basophils/100 WBC (Bld) 0.4 % Normal 0-1 [facility] Comment on above: Performed By: #### M 100.1999, M300.1999, M300.3000, M100.4001, M100.3000, M600.2200, M600.1999 #### [facility] [address] [place], [address] Eosinophils/100 WBC (Bld) 5.8 % High 0-5 [facility] Comment on above: Performed By: #### M 100.1999, M300.1999, M300.3000, M100.4001, M100.3000, M600.2200, M600.1999 #### [facility] [address] [place], [address] Erythrocyte distribution width (RBC) [Ratio] 15.5 % High 11.6-14.6 [facility] Comment on above: Performed By: #### M 100.1999, M300.2000, M300.3000, M100.4001, M100.3000, M600.2200, M600.1999 #### [facility] [address] [place], [address] Hematocrit (Bld) [Volume fraction] 34.9 % Low 40-54 [facility] Comment on above: Performed By: #### M 100.1999, M300.2000, M300.3000, M100.4001, M100.3000, M600.2200, M600.1999 #### [facility] [address] [place], [address] Hemoglobin (Bld) [Mass/Vol] 10.6 g/dL Low 13.0-16.5 [facility] Comment on above: Performed By: #### M 100.1999, M300.1999, M300.3000, M100.4001, M100.3000, M600.2200, M600 #### [facility] [address] [place], [address] IG% 0.400 Normal 0.0-0.9 [facility] Comment on above: Result Comment: IG% - Immature Granulocytes (promyelocytes, myelocytes and metamyelocytes) > 1% indicates that a LEFT SHIFT is Present. Performed By: #### M 100.1999, M300.1999, M300.3000, M100.4001, M100.3000, M600.2200, M600 #### [facility] [address] [place], [address] Lymphocytes/100 WBC (Bld) 22.9 % Normal 19-41 [facility] Comment on above: Performed By: #### M 100.1999, M300.1999, M300.3000, M100.4001, M100.3000, M600.2200, M600.1999 #### [facility] [address] [place], [address] MCH (RBC) [Entitic mass] 23.0 pg Low 27.0-32.0 [facility] Comment on above: Performed By: #### M 100.1999, M300.1999, M300.3000, M100.4001, M100.3000, M600.2200, M600.1999 #### [facility] [address] [place], [address] MCHC (RBC) [Mass/Vol] 30.4 g/dL Low 32-36 [facility] Comment on above: Performed By: #### M 100.2000, M300.2000, M300.3000, M100.4001, M100.3000, M600.2200, M600.1999 #### [facility] [address] [place], [address] MCV (RBC) [Entitic vol] 75.7 fL Low 80-94 [facility] Comment on above: Performed By: #### M 100.1999, M300.2000, M300.3000, M100.4001, M100.3000, M600.2200, M600.1999 #### [facility] [address] [place], [address] Monocytes/100 WBC (Bld) 8.5 % Normal 0-10 [facility] Comment on above: Performed By: #### M 100.1999, M300.2000, M300.3000, M100.4001, M100.3000, M600.2200, M600.1999 #### [facility] [address] [place], [address] Neutrophils/100 WBC (Bld) 62.0 % Normal 47-70 [facility] Comment on above: Performed By: #### M 100.1999, M300.2000, M300.3000, M100.4001, M100.3000, M600.2200, M600.1999 #### [facility] [address] [place], [address] Nucleated RBC (Bld) [#/Vol] 0 10*3/uL Normal 0-5 [facility] Comment on above: Performed By: #### M 100.1999, M300.2000, M300.3000, M100.4001, M100.3000, M600.2200, M600.1999 #### [facility] [address] [place], [address] Platelet mean volume (Bld) [Entitic vol] 9.5 fL Normal 6.2-12.0 [facility] Comment on above: Performed By: #### M 100.1999, M300.2000, M300.3000, M100.4001, M100.3000, M600.2200, M600.1999 #### [facility] [address] [place], [address] Platelets (Bld) [#/Vol] 242 10*3/uL Normal 150-450 [facility] Comment on above: Performed By: #### M 100.1999, M300.2000, M300.3000, M100.4001, M100.3000, M600.2200, M600.1999 #### [facility] [address] [place], [address] RBC (Bld) [#/Vol] 4.61 10*6/uL Normal 4.6-6.2 [facility] Comment on above: Performed By: #### M 100.1999, M300.2000, M300.3000, M100.4001, M100.3000, M600.2200, M600.1999 #### [facility] [address] [place], [address] RDW SD 42.3 fl Normal 35.1-43.9 [facility] Comment on above: Performed By: #### M 100.1999, M300.2000, M300.3000, M100.4001, M100.3000, M600.2200, M600.1999 #### [facility] [address] [place], [address] WBC (Bld) [#/Vol] 5.5 10*3/uL Normal 4.4-11.0 [facility] Comment on above: Performed By: #### M 100.1999, M300.2000, M300.3000, M100.4001, M100.3000, M600.2200, M600.1999 #### [facility] [address] [place], [address] Basic Metabolic Profile (BMP )on 03-14-2024 BUN/CRE 18.0 RATIO Normal 10-20 [facility] Comment on above: Performed By: #### M 100.1999, M300.2000, M300.3000, M100.4001, M100.3000, M600.2200, M600.1999 #### [facility] [address] [place], [address] CA,Total 8.6 mg/dL Normal 8.5-10.1 [facility] Comment on above: Performed By: #### M 100.1999, M300.1999, M300.3000, M100.4001, M100.3000, M600.2200, M600.1999 #### [facility] [address] [place], [address] Chloride [Moles/Vol] 105 mmol/L Normal 98-107 [facility] Comment on above: Performed By: #### M 100.1999, M300.2000, M300.3000, M100.4001, M100.3000, M600.2200, M600.1999 #### [facility] [address] [place], [address] CO2 [Moles/Vol] 29.0 mmol/L Normal 21.0-32.0 [facility] Comment on above: Performed By: #### M 100.1999, M300.2000, M300.3000, M100.4001, M100.3000, M600.2200, M600.1999 #### [facility] [address] [place], [address] Creatinine [Mass/Vol] 0.89 mg/dL Normal 0.70-1.30 [facility] Comment on above: Result Comment: The validity of the calculated GFR GFRAA in patients over 70 years has not been determined. Clinical correlation is essential. Performed By: #### M 100.1999, M300.2000, M300.3000, M100.4001, M100.3000, M600.2200, M600.1999 #### [facility] [address] [place], [address] ECRCL 132.14 ml/min Normal [facility] Comment on above: Performed By: #### M 100.1999, M300.2000, M300.3000, M100.4001, M100.3000, M600.2200, M600.1999 #### [facility] [address] [place], [address] EST GFR - AA 121 mL/min Normal >60 [facility] Comment on above: Result Comment: Afri can [place] GFR Calc Performed By: #### M 100.1999, M300.1999, M300.3000, M100.4001, M100.3000, M600.2200, M600.1999 #### [facility] [address] [place], [address] GAP 5 Normal 5-15 [facility] Comment on above: Performed By: #### M 100.1999, M300.2000, M300.3000, M100.4001, M100.3000, M600.2200, M600.1999 #### [facility] [address] [place], [address] GFR/1.73 sq M.predicted among non-blacks MDRD (S/P/Bld) [Vol rate/Area] 100 mL/min/{1.73_m2} Normal >60 [facility] Comment on above: Result Comment: Non- GFR Calc Performed By: #### M 100.1999, M300.2000, M300.3000, M100.4001, M100.3000, M600.2200, M600.1999 #### [facility] [address] [place], [address] Glucose [Mass/Vol] 170 mg/dL High 74-106 [facility] Comment on above: Result Comment: Fast ing Glucose result greater than or equal to 126 mg/dL suggests DIABETES MELLITUS per A.D.A. criteria. Performed By: #### M 100.1999, M300.2000, M300.3000, M100.4001, M100.3000, M600.2200, M600.1999 #### [facility] [address] [place], [address] Potassium [Moles/Vol] 3.9 mmol/L Normal 3.5-5.1 [facility] Comment on above: Performed By: #### M , M300.1999, M300.3000, M100.4001, M100.3000, M600.2200, M600.1999 #### [facility] [address] [place], [address] Sodium [Moles/Vol] 139 mmol/L Normal 136-145 [facility] Comment on above: Performed By: #### M 100, M300.1999, M300.3000, M100.4001, M100.3000, M600.2200, M600.1999 #### [facility] [address] [place], [address] Urea nitrogen [Mass/Vol] 16 mg/dL Normal 7-18 [facility] Comment on above: Performed By: #### M 100, M300.1999, M300.3000, M100.4001, M100.3000, M600.2200, M600.1999 #### [facility] [address] [place], [address] Bedside Glucoseon 03-14-2024 FINGERSTICK GLU 171 mg/dL High 74-106 [facility] Comment on above: Result Comment: SUNDAY HARP OF PATIENT CARE PER NURSING PROTOCOL Performed By: #### M 100, M300.1999, M300.3000, M100.4001, M100.3000, M600.2200, M600.1999 #### [facility] [address] [place], [address] FINGERSTICK GLU 165 mg/dL High 74-106 [facility] Comment on above: Result Comment: SUNDAY GEMENT OF PATIENT CARE PER NURSING PROTOCOL Performed By: #### M 100.1999, M300.1999, M300.3000, M100.4001, M100.3000, M600.2200, M600.1999 #### [facility] [address] [place], [address] FINGERSTICK GLU 146 mg/dL High 74-106 [facility] Comment on above: Result Comment: SUNDAY GEMENT OF PATIENT CARE PER NURSING PROTOCOL Performed By: #### M 100, M300.1999, M300.3000, M100.4001, M100.3000, M600.2200, M600 #### [facility] [address] [place], [address] FINGERSTICK GLU 165 mg/dL High 74-106 [facility] Comment on above: Result Comment: SUNDAY GEMENT OF PATIENT CARE PER NURSING PROTOCOL Performed By: #### M 100, M300.1999, M300.3000, M100.4001, M100.3000, M600.2200, M600.1999 #### [facility] [address] [place], [address] CBC W/Diff, Automatedon 08-0 -2023 Absolute Lymph 0.77 X10 3/uL Low 0.83-4.51 [facility] Comment on above: Performed By: #### M 100, M300.1999, M300.3000, M100.4001, M100.3000, M600.2200, M600.1999 #### [facility] [address] [place], [address] Absolute Neut 6.3 X10 3/uL Normal 2.0-7.7 [facility] Comment on above: Performed By: #### M 100.1999, M300.2000, M300.3000, M100.4001, M100.3000, M600.2200, M600.1999 #### [facility] [address] [place], [address] Basophils/100 WBC (Bld) 0.1 % Normal 0-1 [facility] Comment on above: Performed By: #### M 100.1999, M300.2000, M300.3000, M100.4001, M100.3000, M600.2200, M600.1999 #### [facility] [address] [place], [address] Eosinophils/100 WBC (Bld) 1.5 % Normal 0-5 [facility] Comment on above: Performed By: #### M 100.1999, M300.1999, M300.3000, M100.4001, M100.3000, M600.2200, M600.1999 #### [facility] [address] [place], [address] Erythrocyte distribution width (RBC) [Ratio] 15.2 % High 11.6-14.6 [facility] Comment on above: Performed By: #### M 100.1999, M300.2000, M300.3000, M100.4001, M100.3000, M600.2200, M600.1999 #### [facility] [address] [place], [address] Hematocrit (Bld) [Volume fraction] 36.3 % Low 40-54 [facility] Comment on above: Performed By: #### M 100.1999, M300.2000, M300.3000, M100.4001, M100.3000, M600.2200, M600.1999 #### [facility] [address] [place], [address] Hemoglobin (Bld) [Mass/Vol] 11.0 g/dL Low 13.0-16.5 [facility] Comment on above: Performed By: #### M 100.1999, M300.2000, M300.3000, M100.4001, M100.3000, M600.2200, M600.1999 #### [facility] [address] [place], [address] IG% 0.400 Normal 0.0-0.9 [facility] Comment on above: Result Comment: IG% - Immature Granulocytes (promyelocytes, myelocytes and metamyelocytes) > 1% indicates that a LEFT SHIFT is Present. Performed By: #### M 100.1999, M300.2000, M300.3000, M100.4001, M100.3000, M600.2200, M600.1999 #### [facility] [address] [place], [address] Lymphocytes/100 WBC (Bld) 9.8 % Low 19-41 [facility] Comment on above: Performed By: #### M 100.1999, M300.2000, M300.3000, M100.4001, M100.3000, M600.2200, M600.1999 #### [facility] [address] [place], [address] MCH (RBC) [Entitic mass] 22.9 pg Low 27.0-32.0 [facility] Comment on above: Performed By: #### M 100.1999, M300.2000, M300.3000, M100.4001, M100.3000, M600.2200, M600.1999 #### [facility] [address] [place], [address] MCHC (RBC) [Mass/Vol] 30.3 g/dL Low 32-36 [facility] Comment on above: Performed By: #### M 100.1999, M300.2000, M300.3000, M100.4001, M100.3000, M600.2200, M600.1999 #### [facility] [address] [place], [address] MCV (RBC) [Entitic vol] 75.5 fL Low 80-94 [facility] Comment on above: Performed By: #### M 100.2000, M300.2000, M300.3000, M100.4001, M100.3000, M600.2200, M600.1999 #### [facility] [address] [place], [address] Monocytes/100 WBC (Bld) 8.2 % Normal 0-10 [facility] Comment on above: Performed By: #### M 100.1999, M300.2000, M300.3000, M100.4001, M100.3000, M600.2200, M600.1999 #### [facility] [address] [place], [address] Neutrophils/100 WBC (Bld) 80.0 % High 47-70 [facility] Comment on above: Performed By: #### M 100.1999, M300.2000, M300.3000, M100.4001, M100.3000, M600.2200, M600.1999 #### [facility] [address] [place], [address] Nucleated RBC (Bld) [#/Vol] 0 10*3/uL Normal 0-5 [facility] Comment on above: Performed By: #### M 100.1999, M300.2000, M300.3000, M100.4001, M100.3000, M600.2200, M600.1999 #### [facility] [address] [place], [address] Platelet mean volume (Bld) [Entitic vol] 9.3 fL Normal 6.2-12.0 [facility] Comment on above: Performed By: #### M 100.1999, M300.2000, M300.3000, M100.4001, M100.3000, M600.2200, M600.1999 #### [facility] [address] [place], [address] Platelets (Bld) [#/Vol] 274 10*3/uL Normal 150-450 [facility] Comment on above: Performed By: #### M 100.2000, M300.2000, M300.3000, M100.4001, M100.3000, M600.2200, M600.2000 #### [facility] [address] [place], [address] RBC (Bld) [#/Vol] 4.81 10*6/uL Normal 4.6-6.2 [facility] Comment on above: Performed By: #### M 100.1999, M300.2000, M300.3000, M100.4001, M100.3000, M600.2200, M600.2000 #### [facility] [address] [place], [address] RDW SD 41.2 fl Normal 35.1-43.9 [facility] Comment on above: Performed By: #### M 100.2000, M300.2000, M300.3000, M100.4001, M100.3000, M600.2200, M600.1999 #### [facility] [address] [place], [address] WBC (Bld) [#/Vol] 7.9 10*3/uL Normal 4.4-11.0 [facility] Comment on above: Performed By: #### M 100.1999, M300.2000, M300.3000, M100.4001, M100.3000, M600.2200, M600.1999 #### [facility] [address] [place], [address] Consultation - Infectious Dx on 03-14-2024 Consultation - Infectious Dx [facility] Medical Records Department [address] [place] [address] Consultation - Infectious Dx 03/14/24 1528 MR#: [id number] Acct: [id number] Name: SNEHA WEI Jr. Rep #: [id number] : 1980 43 From: Yoan Vee MD PCP: Dr. Liliane Epps, DO Status:ADM IN Location: [id number] [id number] Assessment Plan Assessment/Plan (1) Charcot's joint, left ankle and foot: (2) Infected hardware in left leg: PLAN: Recent wound cx with enterococcus. Taken to OR 03/13/[address] Perkins for I D with external fixator placed. Will cover broadly with vanc/butch while cxs pending. Will follow, thank you HPI Consult Data Date of Consult: 03/14/24 HPI Narrative Reason for Consultation: osteo HPI Narrative: SNEHA WEI, is a 43 M with DM, charcot foot, hardware in place, presented to wound center with 1-2 weeks worsened wound with some redness. No fever or chills. Wound cx done. Admitted and taken to OR 03/13/[address] Perkins for I D and ext fixator placement. Feeling ok, no n/v/d. Full ROS performed and neg except as noted above. 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, left, acute Type 2 diabetes mellitus with diabetic polyneuropathy Home Medications ???Medication ???Instructions ???Recorded ???Last Taken ???Type multivitamin 1 tab PO DAILY SUPPLEMENT 11/24/21 03/12/24 History losartan 25 mg tablet 25 mg PO DAILY BLOOD PRESSURE 09/15/22 03/12/24 History semaglutide 14 mg tablet (Rybelsus) 14 mg PO DAILY DIABETES 07/06/23 03/12/24 History ascorbic acid (vitamin C) 1,000 mg 1,000 mg PO DAILY SUPPLEMENT 08/30/23 03/12/24 History tablet,extended release (C Complex) omega 9-opm-keu-fish oil 300 2 cap PO DAILY SUPPLEMENT 08/30/23 03/12/24 History mg-1,000 mg capsule (Fish Oil) pravastatin 80 mg tablet 80 mg PO QHS CHOLESTEROL 08/30/23 03/11/24 History levofloxacin 500 mg tablet 500 mg PO DAILY 02/21/24 03/12/24 History cephalexin 750 mg capsule 750 mg PO BID #20 caps 03/06/24 03/12/24 Rx linezolid 600 mg tablet 600 mg PO BID #28 tabs 03/06/24 Unknown Rx Allergy/AdvReac Type Severity Reaction Status Date / Time Penicillins (PCN) Allergy Rash Verified 08/30/23 10:45 Surgical History Hx of foot surgery Hx of foot surgery Hx of eye surgery Social History Smoking Status: Never smoker Physical Exam Const alert, oriented x3 and no apparent distress General Appearance: cooperative HEENT normocephalic and head/scalp atraumatic Eyes PERRL and EOMs intact bilaterally Neck supple and No nodes Resp normal air movement and clear to auscultation bilaterally Cardio regular rate and regular rhythm GI soft to palpation, non-tender and non-distended Extremity General Extremity: edema Skin Skin Narrative: L lower leg external fixator in place Neuro CN's II-XII intact bilaterally Lab / Micro Data Attestation: I reviewed the patient's lab results. 03/14/24 04:25 03/14/24 04:25 Labs: Laboratory Results - last 24 hr 03/13/24 16:33: POC Glucose 172 H 03/13/24 22:09: POC Glucose 240 H 03/14/24 04:25: WBC 7.9, RBC 4.81, Hgb 11.0 L, Hct 36.3 L, MCV 75.5 L, MCH 22.9 L, MCHC 30.3 L, RDW Std Deviation 41.2, RDW Coeff of Venita 15.2 H, Plt Count 274, MPV 9.3, Immature Gran % (Auto) 0.400, N eut % (Auto) 80.0 H, Lymph % (Auto) 9.8 L, Union % (Auto) 8.2, Eos % (Auto) 1.5, Baso % (Auto) 0.1, Absolute Neuts (auto) 6.3, Absolute Lymphs (auto) 0.77 L, Nucleated RBC % 0, Sodium 139, Potassium 3.9, Chloride 105, Carbon Dioxide 29.0, Anion Gap 5, BUN 16, Creatinine 0.89, Estim Creat Clear Calc 132.14, Est GFR (MDRD) Af Amer 121, Est GFR (MDRD) Non-Af 100, BUN/Creatinine Ratio 18.0, Glucose 170 H, Calcium 8.6 03/14/24 06:50: POC Glucose 165 H 03/14/24 11:57: Vancomycin Trough 18.4 H 03/14/24 12:09: POC Glucose 146 H Micro: Microbiology 03/13/24 11:23 Wound Abcess - Aerobic Anaerobic Swabs Gram Stain - Final 03/13/24 11:23 Wound Abcess - Aerobic Anaerobic Swabs Wound Culture - Preliminary Gram positive organism 03/13/24 11:24 Bone - Left Foot Gram Stain - Final 03/13/24 11:24 Bone - Left Foot Wound Culture - Preliminary Gram positive organism 03/13/24 11:23 Tissue - Ankle Gram Stain - Final 03/13/24 11:23 Tissue - Ankle Wound Culture - Preliminary Gram positive organism Imaging Radiology Impression Ankle X-Ray 03/13/24 07:30 IMPRESSION: Intraoperative fluoroscopic services provided for hardware removal and external fixation. Electronically Signed: (more content not included)... Normal [facility] Gram Stainon 03-14-2024 GS COLLECTED IN [id number] LEFT ANKLE Gram Stain 4+ Red Blood Cells No organisms seen 1+ White Blood Cells No Epithelial cells Normal [facility] Comment on above: Performed By: #### M 100.1999, M300.2000, M300.3000, M100.4001, M100.3000, M600.2200, M600.1999 #### [facility] [address] [place], [place], [id number] GS . . Gram Stain 4+ Red Blood Cells 1+ White Blood Cells No organisms seen Normal [facility] Comment on above: Performed By: #### M 100.1999, M300.2000, M300.3000, M100.4001, M100.3000, M600.2200, M600.1999 #### [facility] [address] [place], [address] GS . . COLLECTED IN OR-LEFT ANKLE TISSUE Gram Stain 4+ White Blood Cells 3+ Red Blood Cells Rare Gram positive cocci Normal [facility] Comment on above: Performed By: #### M 100.3000, M100.2000, M100.4001 #### [facility] [address] [place], [address] Vancomycin, Trough Levelon 0 03-14-2024 VANCO, TROUGH 18.4 ug/mL High 5.0-15.0 [facility] Comment on above: Order Comment: Comme nts: Trough to be drawn 30 mins prior to scheduled [id number] Result Comment: VANC OMYCIN STANDARED DRUG THERAPY TROUGH LEVEL: 5.0 - 15.0 mg/L VANCOMYCIN HIGH INTENSITY THERAPY TROUGH LEVEL: 15.0 - 20.0 mg/L High Intensity therapy recommended for serious life threatening infections include: - Meningitis -Endocarditis -Pneumonia (Ventilator/Healtcare Associated) -Sepsis PLEASE CONTACT PHARMACY SERVICES (#[id number]) FOR INTERPRETATION OF RESULTS. Performed By: #### M 100.2000, M300.2000, M300.3000, M100.4001, M100.3000, M600.2200, M600.2000 #### [facility] [address] [place], [address] Ankle 2 Viewson 03-13-2024 Ankle 2 Views [facility] Imaging Services [address] [place] [address] Ankle 2 Views MR#: [id number] Acct: [id number] Name: SNEHA WEI Giovanny Rep #: [id number] : 1980 M 43 From: Olvin souza MD PCP: Dr. Liliane Epps, Status: ADM IN Study: Ankle 2 Views Date of Exam: 03/13/24 Exam# [id number] Ordering Dr: Jordi Perkins DPM [id number] PROCEDURE: Intraoperative fluoroscopic services. DATE OF EXAMINATION: March 13, 2020 4P INDICATION: Male, 43 years old. Chronic ankle pain. FLUOROSCOPY TIME (if supplied): (2 minutes and 11 seconds) minutes/seconds. 5.68 mGy. 14 images were submitted. Intraoperative fluoroscopic imaging provided for hardware removal and external fixation. RAD/Ankle 2 Views IMPRESSION: Intraoperative fluoroscopic services provided for hardware removal and external fixation. Electronically Signed: Olvin Gandara MD at 15:31 EDT , CC: BALTAZAR Perkins; Dr. Lilaine Epps, Doctor Of Pharmacy: Signed Normal [facility] Basic Metabolic Profile (BMP )on 03-13-2024 BUN/CRE 18.3 RATIO Normal 10-20 [facility] Comment on above: Performed By: #### M 100.2000, M300.2000, M300.3000, M100.4001, M100.3000, M600.2200, M600.1999 #### [facility] [address] [place], [address] CA,Total 9.1 mg/dL Normal 8.5-10.1 [facility] Comment on above: Performed By: #### M 100.1999, M300.2000, M300.3000, M100.4001, M100.3000, M600.2200, M600.1999 #### [facility] [address] [place], [address] Chloride [Moles/Vol] 106 mmol/L Normal 98-107 [facility] Comment on above: Performed By: #### M 100.2000, M300.2000, M300.3000, M100.4001, M100.3000, M600.2200, M600.2000 #### [facility] [address] [place], [address] CO2 [Moles/Vol] 30.0 mmol/L Normal 21.0-32.0 [facility] Comment on above: Performed By: #### M 100.1999, M300.2000, M300.3000, M100.4001, M100.3000, M600.2200, M600.1999 #### [facility] [address] [place], [address] Creatinine [Mass/Vol] 0.82 mg/dL Normal 0.70-1.30 [facility] Comment on above: Result Comment: The validity of the calculated GFR GFRAA in patients over 70 years has not been determined. Clinical correlation is essential. Performed By: #### M 100.1999, M300.2000, M300.3000, M100.4001, M100.3000, M600.2200, M600.1999 #### [facility] [address] [place], [address] ECRCL 143.42 ml/min Normal [facility] Comment on above: Performed By: #### M 100.1999, M300.1999, M300.3000, M100.4001, M100.3000, M600.2200, M600.1999 #### [facility] [address] [place], [address] EST GFR - AA 133 mL/min Normal >60 [facility] Comment on above: Result Comment: Afri can Citizen Of [place] GFR Calc Performed By: #### M 100.1999, M300.1999, M300.3000, M100.4001, M100.3000, M600.2200, M600.1999 #### [facility] [address] [place], [address] GAP 3 Low 5-15 [facility] Comment on above: Performed By: #### M 100.1999, M300.2000, M300.3000, M100.4001, M100.3000, M600.2200, M600.1999 #### [facility] [address] [place], [address] GFR/1.73 sq M.predicted among non-blacks MDRD (S/P/Bld) [Vol rate/Area] 110 mL/min/{1.73_m2} Normal >60 [facility] Comment on above: Result Comment: Non- GFR Calc Performed By: #### M 100.1999, M300.2000, M300.3000, M100.4001, M100.3000, M600.2200, M600.1999 #### [facility] [address] [place], [address] Glucose [Mass/Vol] 103 mg/dL Normal 74-106 [facility] Comment on above: Result Comment: Fast ing Glucose result from 100 to 125 mg/dL suggests IMPAIRED HOMEOSTASIS per A.D.A. criteria. Performed By: #### M 100.1999, M300.1999, M300.3000, M100.4001, M100.3000, M600.2200, M600.1999 #### [facility] [address] [place], [address] Potassium [Moles/Vol] 3.7 mmol/L Normal 3.5-5.1 [facility] Comment on above: Performed By: #### M 100.1999, M300.2000, M300.3000, M100.4001, M100.3000, M600.2200, M600.1999 #### [facility] [address] [place], [address] Sodium [Moles/Vol] 139 mmol/L Normal 136-145 [facility] Comment on above: Performed By: #### M 100.1999, M300.2000, M300.3000, M100.4001, M100.3000, M600.2200, M600.1999 #### [facility] [address] [place], [address] Urea nitrogen [Mass/Vol] 15 mg/dL Normal 7-18 [facility] Comment on above: Performed By: #### M 100.1999, M300.1999, M300.3000, M100.4001, M100.3000, M600.2200, M600.1999 #### [facility] [address] [place], [address] Bedside Glucoseon 03-13-2024 FINGERSTICK GLU 240 mg/dL High [address] [place] [address] Comment on above: Result Comment: SUNDAY GEMENT OF PATIENT CARE PER NURSING PROTOCOL Performed By: #### M 100.1999, M300.2000, M300.3000, M100.4001, M100.3000, M600.2200, M600.1999 #### [facility] [address] [place], [address] FINGERSTICK GLU 172 mg/dL High [address] [place] [address] Comment on above: Result Comment: SUNDAY GEMENT OF PATIENT CARE PER NURSING PROTOCOL Performed By: #### M , M300.1999, M300.3000, M100.4001, M100.3000, M600.2200, M600.1999 #### [facility] [address] [place], [address] FINGERSTICK GLU 186 mg/dL High [address] [place] [address] Comment on above: Result Comment: SUNDAY GEMENT OF PATIENT CARE PER NURSING PROTOCOL Performed By: #### M , M300.1999, M300.3000, M100.4001, M100.3000, M600.2200, M600.1999 #### [facility] [address] [place], [address] FINGERSTICK GLU 155 mg/dL High [address] [place] [address] Comment on above: Result Comment: SUNDAY GEMENT OF PATIENT CARE PER NURSING PROTOCOL Performed By: #### M 100, M300.1999, M300.3000, M100.4001, M100.3000, M600.2200, M600.1999 #### [facility] [address] [place], [address] FINGERSTICK GLU 88 mg/dL Normal 74-106 [facility] Comment on above: Result Comment: SUNDAY HARP OF PATIENT CARE PER NURSING PROTOCOL Performed By: #### M 100.1999, M300.2000, M300.3000, M100.4001, M100.3000, M600.2200, M600.1999 #### [facility] [address] [place], [address] CBC W/Diff, Automatedon 08-0 -2023 Absolute Lymph 1.30 X10 3/uL Normal 0.83-4.51 [facility] Comment on above: Performed By: #### M 100.1999, M300.2000, M300.3000, M100.4001, M100.3000, M600.2200, M600.1999 #### [facility] [address] [place], [address] Absolute Neut 2.6 X10 3/uL Normal 2.0-7.7 [facility] Comment on above: Performed By: #### M 100.1999, M300.2000, M300.3000, M100.4001, M100.3000, M600.2200, M600.1999 #### [facility] [address] [place], [address] Basophils/100 WBC (Bld) 0.6 % Normal 0-1 [facility] Comment on above: Performed By: #### M 100.1999, M300.2000, M300.3000, M100.4001, M100.3000, M600.2200, M600.1999 #### [facility] [address] [place], [address] Eosinophils/100 WBC (Bld) 9.2 % High 0-5 [facility] Comment on above: Performed By: #### M 100.1999, M300.2000, M300.3000, M100.4001, M100.3000, M600.2200, M600.1999 #### [facility] [address] [place], [address] Erythrocyte distribution width (RBC) [Ratio] 15.1 % High 11.6-14.6 [facility] Comment on above: Performed By: #### M 100.1999, M300.2000, M300.3000, M100.4001, M100.3000, M600.2200, M600.1999 #### [facility] [address] [place], [address] Hematocrit (Bld) [Volume fraction] 36.9 % Low 40-54 [facility] Comment on above: Performed By: #### M , M300.1999, M300.3000, M100.4001, M100.3000, M600.2200, M600.1999 #### [facility] [address] [place], [address] Hemoglobin (Bld) [Mass/Vol] 11.3 g/dL Low 13.0-16.5 [facility] Comment on above: Performed By: #### M , M300.1999, M300.3000, M100.4001, M100.3000, M600.2200, M600.1999 #### [facility] [address] [place], [address] IG% 0.600 Normal 0.0-0.9 [facility] Comment on above: Result Comment: IG% - Immature Granulocytes (promyelocytes, myelocytes and metamyelocytes) > 1% indicates that a LEFT SHIFT is Present. Performed By: #### M 100, M300.1999, M300.3000, M100.4001, M100.3000, M600.2200, M600.1999 #### [facility] [address] [place], [address] Lymphocytes/100 WBC (Bld) 25.9 % Normal 19-41 [facility] Comment on above: Performed By: #### M 100.2000, M300.2000, M300.3000, M100.4001, M100.3000, M600.2200, M600.1999 #### [facility] [address] [place], [address] MCH (RBC) [Entitic mass] 23.3 pg Low 27.0-32.0 [facility] Comment on above: Performed By: #### M 100.1999, M300.2000, M300.3000, M100.4001, M100.3000, M600.2200, M600.1999 #### [facility] [address] [place], [address] MCHC (RBC) [Mass/Vol] 30.6 g/dL Low 32-36 [facility] Comment on above: Performed By: #### M 100.1999, M300.2000, M300.3000, M100.4001, M100.3000, M600.2200, M600.1999 #### [facility] [address] [place], [address] MCV (RBC) [Entitic vol] 75.9 fL Low 80-94 [facility] Comment on above: Performed By: #### M 100.1999, M300.2000, M300.3000, M100.4001, M100.3000, M600.2200, M600.1999 #### [facility] [address] [place], [address] Monocytes/100 WBC (Bld) 11.6 % High 0-10 [facility] Comment on above: Performed By: #### M 100.1999, M300.2000, M300.3000, M100.4001, M100.3000, M600.2200, M600.1999 #### [facility] [address] [place], [address] Neutrophils/100 WBC (Bld) 52.1 % Normal 47-70 [facility] Comment on above: Performed By: #### M 100.1999, M300.2000, M300.3000, M100.4001, M100.3000, M600.2200, M600.1999 #### [facility] [address] [place], [address] Nucleated RBC (Bld) [#/Vol] 0 10*3/uL Normal 0-5 [facility] Comment on above: Performed By: #### M 100.1999, M300.2000, M300.3000, M100.4001, M100.3000, M600.2200, M600.1999 #### [facility] [address] [place], [address] Platelet mean volume (Bld) [Entitic vol] 9.0 fL Normal 6.2-12.0 [facility] Comment on above: Performed By: #### M 100.1999, M300.2000, M300.3000, M100.4001, M100.3000, M600.2200, M600.1999 #### [facility] [address] [place], [address] Platelets (Bld) [#/Vol] 239 10*3/uL Normal 150-450 [facility] Comment on above: Performed By: #### M 100.1999, M300.2000, M300.3000, M100.4001, M100.3000, M600.2200, M600.1999 #### [facility] [address] [place], [address] RBC (Bld) [#/Vol] 4.86 10*6/uL Normal 4.6-6.2 [facility] Comment on above: Performed By: #### M 100.1999, M300.2000, M300.3000, M100.4001, M100.3000, M600.2200, M600.1999 #### [facility] [address] [place], [address] RDW SD 41.2 fl Normal 35.1-43.9 [facility] Comment on above: Performed By: #### M 100.2000, M300.2000, M300.3000, M100.4001, M100.3000, M600.2200, M600.1999 #### [facility] [address] [place], [address] WBC (Bld) [#/Vol] 5.0 10*3/uL Normal 4.4-11.0 [facility] Comment on above: Performed By: #### M 100.2000, M300.2000, M300.3000, M100.4001, M100.3000, M600.2200, M600.1999 #### [facility] [address] [facility] [place], [address] Decalcification bone/plaqueo n 03-13-2024 Decalcification bone/plaque -------- Patient Age/Sex Location Account Attending Physician -------- SNEHA WEI Jr. 43/M MS3 [id number] Dr. Jordi Perkins, BALTAZAR -------- Specimen: [id number] Received: 03/13/24 Status: CAROLINA Dougherty Num: [id number] Spec Type: Bone Subm Dr: Dr. Jordi Perkins, M HEADER OPERATION: Left lower extremity incision and drainage abscess PRE-OP DIAGNOSIS: Other acute osteomyelitis, left ankle and foot, infected hardware in left leg TISSUE SUBMITTED: Left talus bone -------- MICROSCOPIC DIAGNOSIS Left talus bone, biopsy: Pieces of bone with acute osteomyelitis. [facility] 03/15/2024 MICROSCOPIC DESCRIPTION Slides are reviewed. GROSS DESCRIPTION Received in fixative is one container labeled with the patient's name and designated Left talus bone. The specimen consists of two fragments of bone measuring in aggregate 1.1 x 0.9 x 0.4cm. The entire specimen is submitted in one cassette after decalcification. 03/14/2024 TC:2 CPT:21309,85021 -------- Patient Age/Sex Location Account Attending Physician -------- SNEHA WEI Jr. 43/M MS3 [id number] Dr. Jordi Perkins DPM -------- Signed (signature on file) Dr. Obed Elias MD 03/16/24901 -------- Normal [facility] Comment on above: Performed By: #### M 100.1999, M300.1999, M300.3000, M100.4001, M100.3000, M600.2200, M6 #### [facility] [address] [place], [address] Hemoglobin A1con 03-13-2024 HbA1c (Bld) [Mass fraction] 6.4 % High 3.8-5.6 [facility] Comment on above: Result Comment: Norm al < 5.7 % Prediabetic 5.7 - 6.4 % Diabetic >or= 6.5 % Please note range changes. Performed By: #### M 100.2000, M300.2000, M300.3000, M100.4001, M100.3000, M600.2200, M6 #### [facility] [address] [place], [address] MR/POSTOP.ANEon 08-06-2024 MR/POSTOP.ANE [facility] Medical Records Department [address] [place] [address] Anesthesia Postop Eval I 03/13/24 1147 MR#: [id number] Acct: [id number] Name: ERIBERTOSNEHA Jr. Rep #: [id number] : 1980 43 From: Quentin Trinh CRNA PCP: Dr. Liliane Epps, DO Status:ADM IN Y Race: C [id number] Anesthesia: Postop Eval I Current Vital Signs Temperature: 97.1 F Pulse Rate: 84 Blood Pressure: 121/77 Respiratory Rate: 14 Pulse Ox: 94 Oxygen Delivery Method: Room Air Assessment Airway patent: Yes Spontaneous unlabored respirations: Yes Mental status: Calm nausea: No Vomiting: No Anesthesia Complication: No Fluid Hydration Crystalloid volume administer (ml): 1,500 Total IV fluid infused: 1,500 Progress Note Anesthesia document: Postop Eval 1 completed: Yes 03/13/24 1156 Date Quentin Trinh COMPUTED TOMOGRAPHY SCANNER OPERATOR Cosigner Signature: Date CC: Signed Normal [facility] MR/LMORZFHI5xo 03-13-2024 [facility] Medical Records Department [address] [place] [address] Anesthesia Postop Eval II 03/13/24 1203 MR#: [id number] Acct: [id number] Name: SNEHA WEI Jr. Rep #: [id number] : 1980 43 From: Zain Han MD PCP: Dr. Liliane Epps, DO Status:ADM IN Y Race: C [id number] Anesthesia Postop Eval I Sum Postop Eval Completion status Anesthesia document: Postop Eval 1 completed: Yes Anesthesia Postop Eval I Summary Anesthesia Postop Eval I Summary: Anesthesia Postop Eval I: Assessment Summary Airway patent Yes 03/13/24 11:56 COMPUTED TOMOGRAPHY SCANNER OPERATOR.[email or web address] Spontaneous unlabored Yes 03/13/24 11:56 COMPUTED TOMOGRAPHY SCANNER OPERATOR.JBLOU respirations Mental status Calm 03/13/24 11:56 COMPUTED TOMOGRAPHY SCANNER OPERATOR.JBLOU nausea No 03/13/24 11:56 COMPUTED TOMOGRAPHY SCANNER OPERATOR.JBLOU Vomiting No 03/13/24 11:56 COMPUTED TOMOGRAPHY SCANNER OPERATOR.JBLOU Anesthesia Postop Eval I: Fluid Summary Crystalloid volume administer 1,500 03/13/24 11:56 COMPUTED TOMOGRAPHY SCANNER OPERATOR.JBLOU (ml) Colloids volume administered ( ml) Blood Product volume administered (ml) Total IV fluid infused 1,500 03/13/24 11:56 COMPUTED TOMOGRAPHY SCANNER OPERATOR.JBLOU Anesthesia Postop Eval I: Summary Notes Anesthesia Complication No 03/13/24 11:56 COMPUTED TOMOGRAPHY SCANNER OPERATOR.JBLOU Anesthesia Complication Comment: Post-operative progress note Anesthesia: Postop Eval II Evaluation Mental status: Awake Pain Level: 0 nausea: No Vomiting: No 03/13/24 1203 Date Zain Han MD Cosigner Signature: Date CC: Signed Normal [facility] Operative Reporton 4 Operative Report [facility] Medical Records Department [address] [place] [address] Operative Report 03/13/24 1151 MR#: [id number] Acct: [id number] Name: ERIBERTOSNEHA MCCOYMer Clay Rep #: [id number] : 1980 43 From: Jordi Perkins DPM PCP: Dr. 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: (3) Other acute osteomyelitis, left ankle and foot: (4) Non-pressure chronic ulcer of other part of left foot with necrosis of bone: (5) Charcot's joint, left ankle and foot: Report of Operation Date of Procedure: 03/13/24 Pre-Operative Diagnosis: 1) infected left tibial talocalcaneal arthrodesis intramedullary nail 2) osteomyelitis left ankle, talus 3) abscess left ankle down to level bone 4) Charcot foot, left lower extremity 5) chronic ulceration left lateral ankle down to level bone 6) diabetic neuropathy Post-Operative Diagnosis: Same Surgery/Procedure Performed:: 1) removal intramedullary nail left ankle 2) incision and drainage abscess down to level of bone left lateral ankle 3) delayed primary closure left lateral ankle wound 4) application of static circular external fixator, left lower extremity Description of Surgical Findings:: Patient admitted to hospital for new onset abscess left lateral ankle stemming from talar screw component of intramedullary nail. Due to concern of infected hardware plan was for removal of intramedullary nail with clearance of osteomyelitis infection and application of an external fixator to allow for osseous stability and ambulation. Patient agreed. Type of Anesthesia: General Special Medications: Popliteal block per anesthesia preoperatively Specimen's removed: Left talar bone for culture and pathology, left lateral ankle tissue culture, postop swab culture Drains: None Estimated Blood Loss (mL): 40 cc Description of Procedure: Patient was brought back the operating placed comfortably in supine position on the operating table. Patient induced under general anesthesia. Well-padded left thigh tourniquet was applied. All osseous prominences offload to prevent any compression neuropraxia. Left lower extremity with position and blankets to elevate relative the contralateral limb. Hip bump was placed on the left lower extremity did not got any external rotation. Left lower extremity were scrubbed prepped draped using typical aseptic fashion. Procedures #1, #2: Removal intramedullary nail with incision drainage abscess to the lateral ankle Left lower extremities elevate exsanguinated tourniquet was inflated to 325 mmHg. Using fluoroscopic imaging the 2 calcaneal screws were removed through with percutaneous stab incisions with 15 blade. A plantar incision was made and blunt atraumatic dissection was taken down from the plantar heel to the distal aspect of the intramedullary nail. The end cap was removed from the intramedullary nail and the extraction device was threaded into the intramedullary nail. Dissection was then taken laterally at the previous lateral ankle incision and made full-thickness down to level of bone with 15 blade. There was noted to be a 5 cc purulent abscess extending down to the bone and the talar screw which was noted to be loose and weak within the talus. There is noted to be a significant bone void where the talar dome used to be as this appeared to be a septic ankle joint effusion. Additional debridement was performed with bone rongeurs removing all nonviable tissue and any residual abscess from the site this was sent for tissue culture. 2 proximal screws were removed using fluoroscopic guidance and a percutaneous stab incisions. The intramedullary nail was then extracted using the extraction device and was confirmed with fluoroscopic imaging. All incisional sites at this time were pulse lavaged with copious amounts normal sterile saline. No residual abscess noted at this time healthy bleeding granular tissue noted to the left lateral ankle and all other incisional sites. At this time a 150 mm intramedullary nail was created from tobramycin laced polymethylmethacrylat e. This was created by introducing the tobramycin infused polymethylmethacrylat e into a chest tube extending 150 mm. A 36 Italian tube was used. The intramedullary nail was then removed from the chest tube and placed from inferior to superior through the calcaneus across the talus into the tibial medullary canal for local antibiosis. Laterally at this time the defect at the talar dome was packed with demineralized bone matrix Using 10 cc and vancomycin powder. All incisional sites were flushed with copious months normal sterile saline. The proximal tibial incision was closed with 2-0 Vicryl. Interrupted followed by skin robinson. The plantar heel incision was clos (more content not included)... Normal [facility] 12 Lead EKGon 03-12-2024 12 Lead EKG [facility] Cardiovascular Services [address] [place] [address] 12 Lead EKG 03/12/24 2228 MR#: [id number] Acct: [id number] Name: SNEHA WEI Rep #: [id number] : 1980 43 From: Liliane Lim MD Attending Dr: Dr. Jordi Perkins, DPM Status: A DM IN Ordering Dr: Zain Han MD Date: 03/12/24 Location: [facility] Sex: M C Admitted: 03/13/24 Test Reason : PRE OP Blood Pressure : / mmHG Vent. Rate : 079 BPM Atrial Rate : 079 BPM P-R Int : 156 ms QRS Dur : 100 ms QT Int : 368 ms P-R-T Axes : 049 003 022 degrees QTc Int : 421 ms Normal sinus rhythm Normal ECG When compared with ECG of 16-NOV-2023 09:50, No significant change was found Confirmed by Liliane Lim ([id number]), medical transcription editor MYKEL BURRELL ([id number]) on 03/14/2024 10:08:07 AM Referred By: Jordi Perkins Confirmed By:Liliane Lim 03/14/24 1008 Date Liliane Lim MD CC: DPM Dr. Jordi Perkins; Dr. Zain Han MD; Dr. Liliane Epps, DO Signed Normal [facility] Bedside Glucoseon 03-12-2024 FINGERSTICK GLU 95 mg/dL Normal 74-106 [facility] Comment on above: Result Comment: SUNDAY HARP OF PATIENT CARE PER NURSING PROTOCOL Performed By: #### M 100.1999, M300.2000, M300.3000, M100.4001, M100.3000, M600.2200, M600.1999 #### [facility] [address] [place], [place], [id number] CBC W/Diff, Automatedon 08 Absolute Lymph 1.06 X10 3/uL Normal 0.83-4.51 [facility] Comment on above: Performed By: #### M 100.1999, M300.2000, M300.3000, M100.4001, M100.3000, M600.2200, M600.1999 #### [facility] [address] [place], [place], [address] Absolute Neut 3.4 X10 3/uL Normal 2.0-7.7 [facility] Comment on above: Performed By: #### M 100.1999, M300.2000, M300.3000, M100.4001, M100.3000, M600.2200, M600.1999 #### [facility] [address] [place], [address] Basophils/100 WBC (Bld) 0.2 % Normal 0-1 [facility] Comment on above: Performed By: #### M 100.1999, M300.2000, M300.3000, M100.4001, M100.3000, M600.2200, M600.1999 #### [facility] [address] [place], [address] Eosinophils/100 WBC (Bld) 8.5 % High 0-5 [facility] Comment on above: Performed By: #### M 100.1999, M300.2000, M300.3000, M100.4001, M100.3000, M600.2200, M600.1999 #### [facility] [address] [place], [address] Erythrocyte distribution width (RBC) [Ratio] 15.2 % High 11.6-14.6 [facility] Comment on above: Performed By: #### M 100.1999, M300.2000, M300.3000, M100.4001, M100.3000, M600.2200, M600.1999 #### [facility] [address] [place], [address] Hematocrit (Bld) [Volume fraction] 37.7 % Low 40-54 [facility] Comment on above: Performed By: #### M 100.1999, M300.2000, M300.3000, M100.4001, M100.3000, M600.2200, M600.1999 #### [facility] [address] [place], [address] Hemoglobin (Bld) [Mass/Vol] 11.7 g/dL Low 13.0-16.5 [facility] Comment on above: Performed By: #### M 100.1999, M300.2000, M300.3000, M100.4001, M100.3000, M600.2200, M600.1999 #### [facility] [address] [place], [address] IG% 0.600 Normal 0.0-0.9 [facility] Comment on above: Result Comment: IG% - Immature Granulocytes (promyelocytes, myelocytes and metamyelocytes) > 1% indicates that a LEFT SHIFT is Present. Performed By: #### M 100.1999, M300.2000, M300.3000, M100.4001, M100.3000, M600.2200, M600.1999 #### [facility] [address] [place], [address] Lymphocytes/100 WBC (Bld) 19.6 % Normal 19-41 [facility] Comment on above: Performed By: #### M 100.1999, M300.1999, M300.3000, M100.4001, M100.3000, M600.2200, M600.1999 #### [facility] [address] [place], [address] MCH (RBC) [Entitic mass] 23.3 pg Low 27.0-32.0 [facility] Comment on above: Performed By: #### M 100.1999, M300.1999, M300.3000, M100.4001, M100.3000, M600.2200, M600.1999 #### [facility] [address] [place], [address] MCHC (RBC) [Mass/Vol] 31.0 g/dL Low 32-36 [facility] Comment on above: Performed By: #### M 100.1999, M300.2000, M300.3000, M100.4001, M100.3000, M600.2200, M600.1999 #### [facility] [address] [place], [address] MCV (RBC) [Entitic vol] 75.1 fL Low 80-94 [facility] Comment on above: Performed By: #### M 100.1999, M300.2000, M300.3000, M100.4001, M100.3000, M600.2200, M600.1999 #### [facility] [address] [place], [address] Monocytes/100 WBC (Bld) 8.5 % Normal 0-10 [facility] Comment on above: Performed By: #### M 100.1999, M300.2000, M300.3000, M100.4001, M100.3000, M600.2200, M600.1999 #### [facility] [address] [place], [address] Neutrophils/100 WBC (Bld) 62.6 % Normal 47-70 [facility] Comment on above: Performed By: #### M 100.1999, M300.2000, M300.3000, M100.4001, M100.3000, M600.2200, M600.1999 #### [facility] [address] [place], [address] Nucleated RBC (Bld) [#/Vol] 0 10*3/uL Normal 0-5 [facility] Comment on above: Performed By: #### M 100.1999, M300.2000, M300.3000, M100.4001, M100.3000, M600.2200, M600.1999 #### [facility] [address] [place], [address] Platelet mean volume (Bld) [Entitic vol] 9.3 fL Normal 6.2-12.0 [facility] Comment on above: Performed By: #### M 100.1999, M300.2000, M300.3000, M100.4001, M100.3000, M600.2200, M600.1999 #### [facility] [address] [place], [address] Platelets (Bld) [#/Vol] 259 10*3/uL Normal 150-450 [facility] Comment on above: Performed By: #### M 100.2000, M300.2000, M300.3000, M100.4001, M100.3000, M600.2200, M600.2000 #### [facility] [address] [place], [address] RBC (Bld) [#/Vol] 5.02 10*6/uL Normal 4.6-6.2 [facility] Comment on above: Performed By: #### M 100.2000, M300.2000, M300.3000, M100.4001, M100.3000, M600.2200, M600.2000 #### [facility] [address] [place], [address] RDW SD 41.0 fl Normal 35.1-43.9 [facility] Comment on above: Performed By: #### M 100.2000, M300.2000, M300.3000, M100.4001, M100.3000, M600.2200, M600.2000 #### [facility] [address] [place], [address] WBC (Bld) [#/Vol] 5.4 10*3/uL Normal 4.4-11.0 [facility] Comment on above: Performed By: #### M 100.2000, M300.2000, M300.3000, M100.4001, M100.3000, M600.2200, M600.1999 #### [facility] [address] [place], [address] Chest PA and Lateralon 03-12 Chest PA and Lateral [facility] Imaging Services [address] [place] [address] Chest PA and Lateral MR#: [id number] Acct: [id number] Name: SNEHA WEI Jr. Rep #: [id number] : 1980 M 43 From: Pako sánchez MD PCP: Dr. Liliane Epps DO Status: ADM RADHA Study: Chest PA and Lateral Date of Exam: 03/12/24 Exam# [id number] Ordering Dr: Jordi Perkins DPLd [id number] STUDY: X-RAY CHEST REASON FOR EXAM: Male, 43 years old. cough TECHNIQUE: Frontal and lateral views of the chest. COMPARISON: 09/01/2023. FINDINGS: The lungs are clear and expanded. There is no demonstrated pleural abnormality. Normal size heart. Normal mediastinum and michelle. Normal visualized pulmonary arteries. Normal visualized aortic arch and descending thoracic aorta. Normal visualized thoracic spine. Normal visualized ribs, clavicles, and shoulders. There is no demonstrated abnormality of the visualized soft tissue structures of the upper abdomen. RAD/Chest PA and Lateral IMPRESSION: Normal x-ray examination of the chest. Electronically Signed: Pako Smith MD at 19:42 EDT , CC: BALTAZAR Perkins; Dr. Liliane Epps DO Doctor Of Pharmacy: Signed Normal [facility] Comprehensive Metabolic Prof ilon 03-12-2024 Albumin [Mass/Vol] 3.0 g/dL Low 3.2-5.0 [facility] Comment on above: Performed By: #### M 100.2000, M300.2000, M300.3000, M100.4001, M100.3000, M600.2200, M600.2000 #### [facility] [place], [address] Albumin/Globulin [Mass ratio] 0.8 {ratio} Low 0.9-2.4 [facility] Comment on above: Performed By: #### M 100.1999, M300.2000, M300.3000, M100.4001, M100.3000, M600.2200, M600.1999 #### [facility] [address] [place], [address] ALK P 118 U/L High 45-117 [facility] Comment on above: Performed By: #### M 100.1999, M300.2000, M300.3000, M100.4001, M100.3000, M600.2200, M600.1999 #### [facility] [address] [place], [address] ALT [Catalytic activity/Vol] 20 U/L Normal 16-61 [facility] Comment on above: Performed By: #### M , M300.1999, M300.3000, M100.4001, M100.3000, M600.2200, M600.1999 #### [facility] [address] [place], [address] AST [Catalytic activity/Vol] 16 U/L Normal 15-37 [facility] Comment on above: Performed By: #### M 100.1999, M300.1999, M300.3000, M100.4001, M100.3000, M600.2200, M600.1999 #### [facility] [address] [place], [address] Bilirubin [Mass/Vol] 0.50 mg/dL Normal 0.20-1.00 [facility] Comment on above: Result Comment: For patients on eltrombopag therapy, use of Dimension [place] TBIL is not recommended. Performed By: #### M 100.1999, M300.2000, M300.3000, M100.4001, M100.3000, M600.2200, M600.1999 #### [facility] [address] [place], [address] BUN/CRE 18.4 RATIO Normal 10-20 [facility] Comment on above: Performed By: #### M 100.1999, M300.2000, M300.3000, M100.4001, M100.3000, M600.2200, M600.1999 #### [facility] [address] [place], [address] CA,Total 9.3 mg/dL Normal 8.5-10.1 [facility] Comment on above: Performed By: #### M 100, M300.1999, M300.3000, M100.4001, M100.3000, M600.2200, M600.1999 #### [facility] [address] [place], [address] Chloride [Moles/Vol] 106 mmol/L Normal 98-107 [facility] Comment on above: Performed By: #### M 100, M300.1999, M300.3000, M100.4001, M100.3000, M600.2200, M600.1999 #### [facility] [address] [place], [address] CO2 [Moles/Vol] 30.0 mmol/L Normal 21.0-32.0 [facility] Comment on above: Performed By: #### M 100, M300.1999, M300.3000, M100.4001, M100.3000, M600.2200, M600.1999 #### [facility] [address] [place], [address] Creatinine [Mass/Vol] 0.92 mg/dL Normal 0.70-1.30 [facility] Comment on above: Result Comment: The validity of the calculated GFR GFRAA in patients over 70 years has not been determined. Clinical correlation is essential. Performed By: #### M 100, M300.1999, M300.3000, M100.4001, M100.3000, M600.2200, M600.1999 #### [facility] [address] [place], [address] ECRCL 127.83 ml/min Normal [facility] Comment on above: Performed By: #### M 100.2000, M300.2000, M300.3000, M100.4001, M100.3000, M600.2200, M600.1999 #### [facility] [address] [place], [address] EST GFR - AA 115 mL/min Normal >60 [facility] Comment on above: Result Comment: Afri can Citizen [place] GFR Calc Performed By: #### M 100.1999, M300.2000, M300.3000, M100.4001, M100.3000, M600.2200, M600.1999 #### [facility] [address] [place], [address] GAP 4 Low 5-15 [facility] Comment on above: Performed By: #### M 100.1999, M300.2000, M300.3000, M100.4001, M100.3000, M600.2200, M600.1999 #### [facility] [address] [place], [address] GFR/1.73 sq M.predicted among non-blacks MDRD (S/P/Bld) [Vol rate/Area] 95 mL/min/{1.73_m2} Normal >60 [facility] Comment on above: Result Comment: Non- GFR Calc Performed By: #### M 100.1999, M300.2000, M300.3000, M100.4001, M100.3000, M600.2200, M600.1999 #### [facility] [address] [place], [address] Globulin (S) [Mass/Vol] 3.9 g/dL Normal 2.2-4.2 [facility] Comment on above: Performed By: #### M 100.1999, M300.2000, M300.3000, M100.4001, M100.3000, M600.2200, M600.1999 #### [facility] [address] [place], [address] Glucose [Mass/Vol] 112 mg/dL High 74-106 [facility] Comment on above: Result Comment: Fast ing Glucose result from 100 to 125 mg/dL suggests IMPAIRED HOMEOSTASIS per A.D.A. criteria. Performed By: #### M 100.1999, M300.2000, M300.3000, M100.4001, M100.3000, M600.2200, M600.1999 #### [facility] [address] [place], [address] Potassium [Moles/Vol] 4.0 mmol/L Normal 3.5-5.1 [facility] Comment on above: Performed By: #### M 100, M300.1999, M300.3000, M100.4001, M100.3000, M600.2200, M600.1999 #### [facility] [address] [place], [address] Sodium [Moles/Vol] 140 mmol/L Normal 136-145 [facility] Comment on above: Performed By: #### M 100, M300.1999, M300.3000, M100.4001, M100.3000, M600.2200, M600.1999 #### [facility] [address] [place], [address] T PROT 6.9 g/dL Normal 6.4-8.2 [facility] Comment on above: Performed By: #### M 100.1999, M300.2000, M300.3000, M100.4001, M100.3000, M600.2200, M600.1999 #### [facility] [address] [place], [address] Urea nitrogen [Mass/Vol] 17 mg/dL Normal 7-18 [facility] Comment on above: Performed By: #### M 100.2000, M300.2000, M300.3000, M100.4001, M100.3000, M600.2200, M600.2000 #### [facility] [address] [place], [address] Culture, Anaerobic Any Sourc ирина 03-02-2024 CUAN LEFT ANKLE ULCER No anaerobic bacteria isolated. Normal [facility] Comment on above: Performed By: #### M 100.3000, M100.2000, M100.4001 #### [facility] [address] [place], [address] Wound Cultureon 03-02-2024 WC LEFT ANKLE ULCER Enterococcus faecalis Amount Growth 1+ Enterococcus faecalis: REACTION Ampicillin Islt IVETTE <=2 S Gentamicin Synergy Susc Islt SYN-S S Linezolid Islt IVETTE 2 S Streptomycin High Pot Susc Islt SYN-S S Vancomycin Islt IVETTE 1 S Normal [facility] Comment on above: Performed By: #### M 100.3000, M100.2000, M100.4001 #### [facility] [address] [place], [address] Gram Stainon 02-29-2024 GS LEFT ANKLE ULCER Gram Stain 4+ White Blood Cells No organisms seen Normal [facility] Comment on above: Performed By: #### M 100.3000, M100.2000, M100.4001 #### [facility] [address] [place], [address] Absolute lymphocyte countOrd ered By: Jordi Perkins on 11-14-2023 Lymphocytes Auto (Unsp spec) [#/Vol] 0.90 10*3/uL 0.83-4.51 [facility] Automated lymphocyte count a s percentage of total leukocytesOrdered By: Jordi Perkins on 11-14-2023 Lymphocytes/100 WBC Auto (Unsp spec) 18.4 % 19-41 [facility] Basophil percentageOrdered B y: Jordi Perkins on 11-14-2023 Basophils/100 WBC (Bld) 0.2 % 0-1 [facility] Bilirubin [Mass/Vol] 0.30 mg/dL 0.20-1.00 [facility] Comment on above: For patients on eltr ombopag therapy, use of Dim[place] TBIL is not recommended. Chloride [Moles/Vol] 106 mmol/L 98-107 [facility] Eosinophils/100 WBC (Bld) 7.8 % 0-5 [facility] Glucose [Mass/Vol] 106 mg/dL 74-106 [facility] Comment on above: Fasting Glucose resu lt from 100 to 125 mg/dL suggests IMPAIRED HOMEOSTASIS per A.D.A. criteria. Hemoglobin (Bld) [Mass/Vol] 11.2 g/dL 13.0-16.5 [facility] Monocytes/100 WBC (Bld) 6.7 % 0-10 [facility] Neutrophils (Bld) [#/Vol] 3.3 10*3/uL 2.0-7.7 [facility] Neutrophils/100 WBC (Bld) 66.5 % 47-70 [facility] Potassium [Moles/Vol] 4.1 mmol/L 3.5-5.1 [facility] Protein [Mass/Vol] 7.3 g/dL 6.4-8.2 [facility] Sodium [Moles/Vol] 141 mmol/L 136-145 [facility] WBC (Bld) [#/Vol] 4.9 10*3/uL 4.4-11.0 [facility] Determination of erythrocyte mean corpuscular volume (MCV)Ordered By: Jordi Perkins on 11-14-2023 MCV (RBC) [Entitic vol] 73.2 fL 80-94 [facility] Erythrocyte distribution wid th ratioOrdered By: Jordi Perkins on 11-14-2023 Erythrocyte distribution width (RBC) [Ratio] 17.8 % 11.6-14.6 [facility] Erythrocyte distribution wid th standard deviationOrdered By: Jordi Perkins on 11-14-2023 Erythrocyte distribution width (RBC) [Entitic vol] 46.9 fL 35.1-43.9 [facility] Erythrocyte sedimentation ra teOrdered By: Jordi Perkins on 11-14-2023 ESR (Bld) [Velocity] 23 mm/h 0-20 [facility] Hematocrit Auto (Bld) [Volum e fraction]Ordered By: Jordi Perkins on 11-14-2023 Hematocrit (Bld) [Volume fraction] 37.2 % 40-54 [facility] Immature granulocytes/100 WB C Auto (Bld)Ordered By: Jordi Perkins on 11-14-2023 Immature granulocytes/100 WBC (Bld) 0.400 % 0.0-0.9 [facility] Comment on above: IG% - Immature Granu locytes (promyelocytes, myelocytes and metamyelocytes) > 1% indicates that a LEFT SHIFT is Present. Laboratory - Chemistry and C hemistry - challengeOrdered By: Jordi Perkins on 11-14-2023 Albumin/Globulin [Mass ratio] 0.7 {ratio} 0.9-2.4 [facility] ALP [Catalytic activity/Vol] 89 U/L 45-117 [facility] ALT [Catalytic activity/Vol] 17 U/L 16-61 [facility] CO2 [Moles/Vol] 30.0 mmol/L 21.0-32.0 [facility] Globulin (S) [Mass/Vol] 4.3 g/dL 2.2-4.2 [facility] Urea nitrogen/Creatinine [Mass ratio] 17.9 mg/mg 10-20 [facility] - Hematology and Cell countsOrdered By: Jordi Perkins on 11-14-2023 MCH (RBC) [Entitic mass] 22.0 pg 27.0-32.0 [facility] MCHC (RBC) [Mass/Vol] 30.1 g/dL 32-36 [facility] Nucleated RBC/100 WBC (Bld) [Ratio] 0 % 0-5 [facility] Platelet mean volume (Bld) [Entitic vol] 8.8 fL 6.2-12.0 [facility] Platelets (Bld) [#/Vol] 256 10*3/uL 150-450 [facility] No Panel InformationOrdered By: Jordi Perkins on 11-14-2023 C-Reactive Protein Extended Range 40.20 mg/L 0.0-3.0 [facility] Comment on above: C-Reactive Protein ( CRP) provides useful information for thediagnosis, therapy and monitoring of inflammatory processesand associated diseases. For the evaluation of Relative Riskfor Cardiovascular Disease, a High Sensitivity CRP (HSCRP)should be ordered. Estimated GFR (MDRD) Amer 120 mL/min >60 [facility] Comment on above: GFR Calc Estimated GFR (MDRD) Non-Af Amer 99 mL/min >60 [facility] Comment on above: Non- GFR Calc RBC Auto (Bld) [#/Vol]Ordere d By: Jordi Perkins on 11-14-2023 RBC (Bld) [#/Vol] 5.08 10*6/uL 4.6-6.2 [facility] Serum or plasma calcium anel urement (mass/volume)Ordered By: Jordi Perkins on 11-14-2023 Calcium [Mass/Vol] 9.0 mg/dL 8.5-10.1 [facility] Serum or plasma creatinine m easurement (mass/volume)Ordered By: Jordi Perkins on 11-14-2023 Creatinine [Mass/Vol] 0.89 mg/dL 0.70-1.30 [facility] Comment on above: The validity of the calculated GFR & GFRAA in patients over 70 years has not been determined. Clinical correlation is essential. Serum or plasma urea nitroge n measurement (mass/volume)Ordered By: Jordi Perkins on 11-14-2023 Urea nitrogen [Mass/Vol] 16 mg/dL 7-18 [facility] Thin prep Papanicolaou smear with manual screeningOrdered By: Jordi Perkins on 11-14-2023 Thin prep Papanicolaou smear with manual screening 3.0 g/dL 3.2-5.0 [facility] Thin prep Papanicolaou smear with manual screening 18 U/L 15-37 [facility] Thin prep Papanicolaou smear with manual screening 5 5-15 [facility] Whole blood hemoglobin A1c/t otal hemoglobin ratio (mass fraction)Ordered By: Jordi Perkins on 11-14-2023 HbA1c (Bld) [Mass fraction] 6.3 % 3.8-5.6 [facility] Comment on above: Normal < 5.7 % Predi abetic 5.7 - 6.4 % Diabetic >or= 6.5 % Please note range changes. Anaerobic cultureOrdered By: Jordi Perkins on 11-10-2023 Bacteria identified Anaer cx Nom (Unsp spec) No anaerobic bacteria isolated. [facility] Gram stain for investigation of transfusion reactionOrdered By: Jordi Perkins on 11-10-2023 Microscopic observation Gram stain Nom (Unsp spec) [facility] Routine wound cultureOrdered By: Jordi Perkins on 11-10-2023 Bacteria identified Cx Nom (Wound) No growth aerobically. [facility] Thin prep Papanicolaou smear with manual screeningOrdered By: Jordi Perkins on 11-03-2023 Thin prep Papanicolaou smear with manual screening 187 mg/dL 74-106 [facility] Comment on above: MANAGEMENT OF PATIEN T CARE PER NURSING PROTOCOL Basophil percentageOrdered B y: Yoan Vee on 10-06-2023 Bilirubin [Mass/Vol] 0.30 mg/dL 0.20-1.00 [facility] Comment on above: For patients on eltr ombopag therapy, use of [place] TBIL is not recommended. Chloride [Moles/Vol] 106 mmol/L 98-107 [facility] Glucose [Mass/Vol] 103 mg/dL 74-106 [facility] Comment on above: Fasting Glucose resu lt from 100 to 125 mg/dL suggests IMPAIRED HOMEOSTASIS per A.D.A. criteria. Hemoglobin (Bld) [Mass/Vol] 11.4 g/dL 13.0-16.5 [facility] Potassium [Moles/Vol] 4.3 mmol/L 3.5-5.1 [facility] Protein [Mass/Vol] 7.3 g/dL 6.4-8.2 [facility] Sodium [Moles/Vol] 139 mmol/L 136-145 [facility] WBC (Bld) [#/Vol] 4.7 10*3/uL 4.4-11.0 [facility] Determination of erythrocyte mean corpuscular volume (MCV)Ordered By: Yoan Vee on 10-06-2023 MCV (RBC) [Entitic vol] 75.8 fL 80-94 [facility] Direct bilirubinOrdered By: Yoan Vee on 10-06-2023 Bilirubin.direct [Mass/Vol] 0.11 mg/dL 0.00-0.30 [facility] Erythrocyte distribution wid th ratioOrdered By: Yoan Vee on 10-06-2023 Erythrocyte distribution width (RBC) [Ratio] 14.9 % 11.6-14.6 [facility] Erythrocyte distribution wid th standard deviationOrdered By: Yoan Vee on 10-06-2023 Erythrocyte distribution width (RBC) [Entitic vol] 40.7 fL 35.1-43.9 [facility] Erythrocyte sedimentation ra teOrdered By: Yoan Vee on 10-06-2023 ESR (Bld) [Velocity] 50 mm/h 0-20 [facility] Hematocrit Auto (Bld) [Volum e fraction]Ordered By: Yoan Vee on 10-06-2023 Hematocrit (Bld) [Volume fraction] 37.3 % 40-54 [facility] - Chemistry and C hemistry - challengeOrdered By: Yoan Vee on 10-06-2023 ALP [Catalytic activity/Vol] 123 U/L 45-117 [facility] ALT [Catalytic activity/Vol] 40 U/L 16-61 [facility] CO2 [Moles/Vol] 29.0 mmol/L 21.0-32.0 [facility] Globulin (S) [Mass/Vol] 4.0 g/dL 2.2-4.2 [facility] Urea nitrogen/Creatinine [Mass ratio] 23.0 mg/mg 10-20 [facility] - Hematology and Cell countsOrdered By: Yoan Vee on 10-06-2023 MCH (RBC) [Entitic mass] 23.2 pg 27.0-32.0 [facility] MCHC (RBC) [Mass/Vol] 30.6 g/dL 32-36 [facility] Platelet mean volume (Bld) [Entitic vol] 10.3 fL 6.2-12.0 [facility] Platelets (Bld) [#/Vol] 261 10*3/uL 150-450 [facility] No Panel InformationOrdered By: Yoan Vee on 10-06-2023 Estimated GFR (MDRD) Amer 132 mL/min >60 [facility] Comment on above: GFR Calc Estimated GFR (MDRD) Non-Af Amer 109 mL/min >60 [facility] Comment on above: Non- GFR Calc RBC Auto (Bld) [#/Vol]Ordere d By: Yoan Vee on 10-06-2023 RBC (Bld) [#/Vol] 4.92 10*6/uL 4.6-6.2 [facility] Serum or plasma calcium anel urement (mass/volume)Ordered By: Yoan Vee on 10-06-2023 Calcium [Mass/Vol] 9.3 mg/dL 8.5-10.1 [facility] Serum or plasma creatinine m easurement (mass/volume)Ordered By: Yoan Vee on 10-06-2023 Creatinine [Mass/Vol] 0.83 mg/dL 0.70-1.30 [facility] Comment on above: The validity of the calculated GFR & GFRAA in patients over 70 years has not been determined. Clinical correlation is essential. Serum or plasma urea nitroge n measurement (mass/volume)Ordered By: Yoan Vee on 10-06-2023 Urea nitrogen [Mass/Vol] 19 mg/dL 7-18 [facility] Thin prep Papanicolaou smear with manual screeningOrdered By: Barbara Ray on 10-06-2023 Thin prep Papanicolaou smear with manual screening 162 mg/dL 74-106 [facility] Comment on above: MANAGEMENT OF PATIEN T CARE PER NURSING PROTOCOL Thin prep Papanicolaou smear with manual screeningOrdered By: Yoan Vee on 10-06-2023 Thin prep Papanicolaou smear with manual screening 3.3 g/dL 3.2-5.0 [facility] Thin prep Papanicolaou smear with manual screening 26 U/L 15-37 [facility] Thin prep Papanicolaou smear with manual screening 4 5-15 [facility] Anaerobic cultureOrdered By: Barbara Ray on 10-04-2023 Bacteria identified Anaer cx Nom (Unsp spec) No growth in [address] [facility] Gram stain for investigation of transfusion reactionOrdered By: Barbara Ray on 10-04-2023 Microscopic observation Gram stain Nom (Unsp spec) [facility] Microscopic observation Gram stain Nom (Unsp spec) [facility] Routine wound cultureOrdered By: Barbara Rya on 10-04-2023 Bacteria identified Cx Nom (Wound) No growth aerobically. [facility] Bacteria identified Cx Nom (Wound) No growth aerobically. [facility] Basophil percentageOrdered B y: Yoan Vee on 09-15-2023 Bilirubin [Mass/Vol] 0.40 mg/dL 0.20-1.00 [facility] Comment on above: For patients on eltr ombopag therapy, use of [place] TBIL is not recommended. Chloride [Moles/Vol] 104 mmol/L 98-107 [facility] Glucose [Mass/Vol] 93 mg/dL 74-106 [facility] Hemoglobin (Bld) [Mass/Vol] 11.0 g/dL 13.0-16.5 [facility] Potassium [Moles/Vol] 4.2 mmol/L 3.5-5.1 [facility] Protein [Mass/Vol] 7.3 g/dL 6.4-8.2 [facility] Sodium [Moles/Vol] 137 mmol/L 136-145 [facility] WBC (Bld) [#/Vol] 4.4 10*3/uL 4.4-11.0 [facility] Determination of erythrocyte mean corpuscular volume (MCV)Ordered By: Yoan Vee on 09-15-2023 MCV (RBC) [Entitic vol] 76.5 fL 80-94 [facility] Direct bilirubinOrdered By: Yoan Vee on 09-15-2023 Bilirubin.direct [Mass/Vol] 0.15 mg/dL 0.00-0.30 [facility] Erythrocyte distribution wid th ratioOrdered By: Yoan Vee on 09-15-2023 Erythrocyte distribution width (RBC) [Ratio] 13.8 % 11.6-14.6 [facility] Erythrocyte distribution wid th standard deviationOrdered By: Yoan Vee on 09-15-2023 Erythrocyte distribution width (RBC) [Entitic vol] 38.7 fL 35.1-43.9 [facility] Erythrocyte sedimentation ra teOrdered By: Yoan Vee on 09-15-2023 ESR (Bld) [Velocity] 37 mm/h 0-20 [facility] Hematocrit Auto (Bld) [Volum e fraction]Ordered By: Yoan Vee on 09-15-2023 Hematocrit (Bld) [Volume fraction] 36.2 % 40-54 [facility] - Chemistry and C hemistry - challengeOrdered By: Yoan Vee on 09-15-2023 ALP [Catalytic activity/Vol] 100 U/L 45-117 [facility] ALT [Catalytic activity/Vol] 37 U/L 16-61 [facility] CO2 [Moles/Vol] 29.0 mmol/L 21.0-32.0 [facility] Globulin (S) [Mass/Vol] 3.7 g/dL 2.2-4.2 [facility] Urea nitrogen/Creatinine [Mass ratio] 22.7 mg/mg 10-20 [facility] - Hematology and Cell countsOrdered By: Yoan Vee on 09-15-2023 MCH (RBC) [Entitic mass] 23.3 pg 27.0-32.0 [facility] MCHC (RBC) [Mass/Vol] 30.4 g/dL 32-36 [facility] Platelet mean volume (Bld) [Entitic vol] 10.1 fL 6.2-12.0 [facility] Platelets (Bld) [#/Vol] 343 10*3/uL 150-450 [facility] No Panel InformationOrdered By: Yoan Vee on 09-15-2023 Estimated GFR (MDRD) Amer 147 mL/min >60 [facility] Comment on above: GFR Calc Estimated GFR (MDRD) Non-Af Amer 122 mL/min >60 [facility] Comment on above: Non- GFR Calc RBC Auto (Bld) [#/Vol]Ordere d By: Yoan Vee on 09-15-2023 RBC (Bld) [#/Vol] 4.73 10*6/uL 4.6-6.2 [facility] Serum or plasma calcium anel urement (mass/volume)Ordered By: Yoan Vee on 09-15-2023 Calcium [Mass/Vol] 9.5 mg/dL 8.5-10.1 [facility] Serum or plasma creatinine m easurement (mass/volume)Ordered By: Yoan Vee on 09-15-2023 Creatinine [Mass/Vol] 0.75 mg/dL 0.70-1.30 [facility] Comment on above: The validity of the calculated GFR & GFRAA in patients over 70 years has not been determined. Clinical correlation is essential. Serum or plasma urea nitroge n measurement (mass/volume)Ordered By: Yoan Vee on 09-15-2023 Urea nitrogen [Mass/Vol] 17 mg/dL 7-18 [facility] Thin prep Papanicolaou smear with manual screeningOrdered By: Yoan Vee on 09-15-2023 Thin prep Papanicolaou smear with manual screening 3.6 g/dL 3.2-5.0 [facility] Thin prep Papanicolaou smear with manual screening 25 U/L 15-37 [facility] Thin prep Papanicolaou smear with manual screening 4 5-15 [facility] Basophil percentageOrdered B y: Yoan Vee on 09-08-2023 Bilirubin [Mass/Vol] 0.40 mg/dL 0.20-1.00 [facility] Comment on above: For patients on eltr ombopag therapy, use of Dim[place] TBIL is not recommended. Chloride [Moles/Vol] 104 mmol/L 98-107 [facility] Glucose [Mass/Vol] 90 mg/dL 74-106 [facility] Hemoglobin (Bld) [Mass/Vol] 10.8 g/dL 13.0-16.5 [facility] Potassium [Moles/Vol] 3.9 mmol/L 3.5-5.1 [facility] Protein [Mass/Vol] 7.1 g/dL 6.4-8.2 [facility] Sodium [Moles/Vol] 135 mmol/L 136-145 [facility] WBC (Bld) [#/Vol] 4.1 10*3/uL 4.4-11.0 [facility] Determination of erythrocyte mean corpuscular volume (MCV)Ordered By: Yoan Vee on 09-08-2023 MCV (RBC) [Entitic vol] 79.3 fL 80-94 [facility] Direct bilirubinOrdered By: Yoan Vee on 09-08-2023 Bilirubin.direct [Mass/Vol] 0.09 mg/dL 0.00-0.30 [facility] Erythrocyte distribution wid th ratioOrdered By: Yoan Vee on 09-08-2023 Erythrocyte distribution width (RBC) [Ratio] 14.0 % 11.6-14.6 [facility] Erythrocyte distribution wid th standard deviationOrdered By: Yoan Vee on 09-08-2023 Erythrocyte distribution width (RBC) [Entitic vol] 40.2 fL 35.1-43.9 [facility] Erythrocyte sedimentation ra teOrdered By: Yoan Vee on 09-08-2023 ESR (Bld) [Velocity] 35 mm/h 0-20 [facility] Hematocrit Auto (Bld) [Volum e fraction]Ordered By: Yoan Vee on 09-08-2023 Hematocrit (Bld) [Volume fraction] 36.3 % 40-54 [facility] - Chemistry and C hemistry - challengeOrdered By: Yoan Vee on 09-08-2023 ALP [Catalytic activity/Vol] 88 U/L 45-117 [facility] ALT [Catalytic activity/Vol] 41 U/L 16-61 [facility] CO2 [Moles/Vol] 27.0 mmol/L 21.0-32.0 [facility] Globulin (S) [Mass/Vol] 3.7 g/dL 2.2-4.2 [facility] Urea nitrogen/Creatinine [Mass ratio] 20.8 mg/mg 10-20 [facility] - Hematology and Cell countsOrdered By: Yoan Vee on 09-08-2023 MCH (RBC) [Entitic mass] 23.6 pg 27.0-32.0 [facility] MCHC (RBC) [Mass/Vol] 29.8 g/dL 32-36 [facility] Platelets (Bld) [#/Vol] 298 10*3/uL 150-450 [facility] No Panel InformationOrdered By: Yoan Vee on 09-08-2023 Estimated GFR (MDRD) Amer 143 mL/min >60 [facility] Comment on above: GFR Calc Estimated GFR (MDRD) Non-Af Amer 118 mL/min >60 [facility] Comment on above: Non- GFR Calc Platelet mean volume Stoney-Ec ker (Bld) [Entitic vol]Ordered By: Yoan Vee on 09-08-2023 Platelet mean volume (Bld) [Entitic vol] 9.8 fL 6.2-12.0 [facility] RBC Auto (Bld) [#/Vol]Ordere d By: Yoan Vee on 09-08-2023 RBC (Bld) [#/Vol] 4.58 10*6/uL 4.6-6.2 [facility] Serum or plasma calcium anel urement (mass/volume)Ordered By: Yoan Vee on 09-08-2023 Calcium [Mass/Vol] 9.2 mg/dL 8.5-10.1 [facility] Serum or plasma creatinine m easurement (mass/volume)Ordered By: Yoan Vee on 09-08-2023 Creatinine [Mass/Vol] 0.77 mg/dL 0.70-1.30 [facility] Comment on above: The validity of the calculated GFR & GFRAA in patients over 70 years has not been determined. Clinical correlation is essential. Serum or plasma urea nitroge n measurement (mass/volume)Ordered By: Yoan Vee on 09-08-2023 Urea nitrogen [Mass/Vol] 16 mg/dL 7-18 [facility] Thin prep Papanicolaou smear with manual screeningOrdered By: Yoan Vee on 09-08-2023 Thin prep Papanicolaou smear with manual screening 3.4 g/dL 3.2-5.0 [facility] Thin prep Papanicolaou smear with manual screening 41 U/L 15-37 [facility] Thin prep Papanicolaou smear with manual screening 4 5-15 [facility] Absolute lymphocyte countOrd ered By: Angélica Escalante on 09-05-2023 Lymphocytes Auto (Unsp spec) [#/Vol] 1.29 10*3/uL 0.83-4.51 [facility] Automated lymphocyte count a s percentage of total leukocytesOrdered By: Angélica Escalante on 09-05-2023 Lymphocytes/100 WBC Auto (Unsp spec) 23.6 % 19-41 [facility] Basophil percentageOrdered B y: Angélica Escalante on 09-05-2023 Basophils/100 WBC (Bld) 0.7 % 0-1 [facility] Chloride [Moles/Vol] 108 mmol/L 98-107 [facility] Eosinophils/100 WBC (Bld) 10.1 % 0-5 [facility] Glucose [Mass/Vol] 107 mg/dL 74-106 [facility] Comment on above: Fasting Glucose resu lt from 100 to 125 mg/dL suggests IMPAIRED HOMEOSTASIS per A.D.A. criteria. Hemoglobin (Bld) [Mass/Vol] 10.2 g/dL 13.0-16.5 [facility] Monocytes/100 WBC (Bld) 11.2 % 0-10 [facility] Neutrophils (Bld) [#/Vol] 2.9 10*3/uL 2.0-7.7 [facility] Neutrophils/100 WBC (Bld) 53.9 % 47-70 [facility] Potassium [Moles/Vol] 3.9 mmol/L 3.5-5.1 [facility] Sodium [Moles/Vol] 141 mmol/L 136-145 [facility] WBC (Bld) [#/Vol] 5.5 10*3/uL 4.4-11.0 [facility] Determination of erythrocyte mean corpuscular volume (MCV)Ordered By: Angélica Escalante on 09-05-2023 MCV (RBC) [Entitic vol] 78.2 fL 80-94 [facility] Erythrocyte distribution wid th ratioOrdered By: [facility]23 Erythrocyte distribution width (RBC) [Ratio] 13.8 % 11.6-14.6 [facility] Erythrocyte distribution wid th standard deviationOrdered By: [facility] on 09-05-2023 Erythrocyte distribution width (RBC) [Entitic vol] 39.6 fL 35.1-43.9 [facility] Hematocrit Auto (Bld) [Volum e fraction]Ordered By: [facility] on 09-05-2023 Hematocrit (Bld) [Volume fraction] 33.7 % 40-54 [facility] Immature granulocytes/100 WB C Auto (Bld)Ordered By: Angélicajenny Escalante on 09-05-2023 Immature granulocytes/100 WBC (Bld) 0.500 % 0.0-0.9 [facility] Comment on above: IG% - Immature Granu locytes (promyelocytes, myelocytes and metamyelocytes) > 1% indicates that a LEFT SHIFT is Present. Laboratory - Chemistry and C hemistry - challengeOrdered By: Angélica Escalante on 09-05-2023 CO2 [Moles/Vol] 31.0 mmol/L 21.0-32.0 [facility] Urea nitrogen/Creatinine [Mass ratio] 27.1 mg/mg 10-20 [facility] - Hematology and Cell countsOrdered By: Angélica Escalante on 09-05-2023 MCH (RBC) [Entitic mass] 23.7 pg 27.0-32.0 [facility] MCHC (RBC) [Mass/Vol] 30.3 g/dL 32-36 [facility] Nucleated RBC/100 WBC (Bld) [Ratio] 0 % 0-5 [facility] Platelets (Bld) [#/Vol] 255 10*3/uL 150-450 [facility] No Panel InformationOrdered By: Angélica Escalante on 09-05-2023 Estimated Creatinine Clearance Calc 142.23 ml/min [facility] Estimated GFR (MDRD) Amer 122 mL/min >60 [facility] Comment on above: GFR Calc Estimated GFR (MDRD) Non-Af Amer 100 mL/min >60 [facility] Comment on above: Non- GFR Calc Platelet mean volume Stoney-Ec ker (Bld) [Entitic vol]Ordered By: Angélica Escalante on 09-05-2023 Platelet mean volume (Bld) [Entitic vol] 9.1 fL 6.2-12.0 [facility] RBC Auto (Bld) [#/Vol]Ordere d By: Angélica Escalante on 09-05-2023 RBC (Bld) [#/Vol] 4.31 10*6/uL 4.6-6.2 [facility] [facility] Serum or plasma calcium anel urement (mass/volume)Ordered By: Angélica Escalante on 09-05-2023 Calcium [Mass/Vol] 9.6 mg/dL 8.5-10.1 [facility] Serum or plasma creatinine m easurement (mass/volume)Ordered By: Angélica Escalante on 09-05-2023 Creatinine [Mass/Vol] 0.89 mg/dL 0.70-1.30 [facility] Comment on above: The validity of the calculated GFR & GFRAA in patients over 70 years has not been determined. Clinical correlation is essential. Serum or plasma trough vanco mycin levelOrdered By: Angélica Escalante on 09-05-2023 Vancomycin trough [Mass/Vol] 20.6 ug/mL 5.0-15.0 [facility] Comment on above: VANCOMYCIN STANDARED DRUG THERAPY TROUGH LEVEL: 5.0 - 15.0 mg/L VANCOMYCIN HIGH INTENSITY THERAPY TROUGH LEVEL: 15.0 - 20.0 mg/L High Intensity therapy recommended for serious lifethreatening infections include:- Vdxfcmbipj-Xxkcangmrxkh-Tniryseyv (Ventilator/Healtcare Associated)-Sepsis PLEASE CONTACT PHARMACY SERVICES (#0115) FOR INTERPRETATIONOF RESULTS. Serum or plasma urea nitroge n measurement (mass/volume)Ordered By: Angélica Escalante on 09-05-2023 Urea nitrogen [Mass/Vol] 24 mg/dL 7-18 [facility] Serum or plasma vancomycin m easurement (mass/volume)Ordered By: Angélica Escalante on 09-05-2023 Vancomycin [Mass/Vol] 12.4 ug/mL 0.0-15.0 [facility] Comment on above: VANCOMYCIN STANDARD DRUG THERAPY: CRITICAL VALUE IS > 15.0 mg/L VANCOMYCIN HIGH INTENSITY THERAPY: CRITICAL VALUE IS > 20.0 mg/L PLEASE CONTACT PHARMACY SERVICES (#[id number]) FOR INTERPRETATIONOF RESULTS. THIS RESULT DOES NOT REPRESENT A PEAK OR TROUGHLEVEL FOR THIS DRUG. Thin prep Papanicolaou smear with manual screeningOrdered By: Terry Rice on 09-05-2023 Thin prep Papanicolaou smear with manual screening 132 mg/dL 74-106 [facility] Comment on above: MANAGEMENT OF PATIEN T CARE PER NURSING PROTOCOL Thin prep Papanicolaou smear with manual screeningOrdered By: Angélica Escalante on 09-05-2023 Thin prep Papanicolaou smear with manual screening 2 5-15 [facility] Anaerobic cultureOrdered By: Jordi Perkins on 09-01-2023 Bacteria identified Anaer cx Nom (Unsp spec) No anaerobic bacteria isolated. [facility] Bacteria identified Anaer cx Nom (Unsp spec) No anaerobic bacteria isolated. [facility] Bacteria identified Cx Nom ( Wound)Ordered By: Jordi Perkins on 09-01-2023 Wound Culture Enterococcus faecalis [facility] Wound Culture Pseudomonas aeruginosa [facility] Wound Culture Enterococcus faecalis [facility] Wound Culture Pseudomonas aeruginosa [facility] Gram stain for investigation of transfusion reactionOrdered By: Jordi Perkins on 09-01-2023 Microscopic observation Gram stain Nom (Unsp spec) [facility] Microscopic observation Gram stain Nom (Unsp spec) [facility] Serum or plasma transthyreti n measurement (mass/volume)Ordered By: Jordi Perkins on 09-01-2023 Prealbumin [Mass/Vol] 19.9 mg/dL 20.0-40.0 [facility] Whole blood hemoglobin A1c/t otal hemoglobin ratio (mass fraction)Ordered By: Lex Henriquez on 09-01-2023 HbA1c (Bld) [Mass fraction] 6.0 % 3.8-5.6 [facility] Comment on above: Normal < 5.7 % Predi abetic 5.7 - 6.4 % Diabetic >or= 6.5 % Please note range changes. Anaerobic cultureOrdered By: Jordi Perkins on 08-30-2023 Bacteria identified Anaer cx Nom (Unsp spec) No growth in [address] [facility] Bacteria identified Anaer cx Nom (Unsp spec) No growth in [address] [facility] Bacteria identified Cx Nom ( Wound)Ordered By: Jordi Perkins on 08-30-2023 Wound Culture Enterococcus faecalis [facility] Wound Culture Enterococcus faecalis [facility] Basophil percentageOrdered B y: Jordi Talley on 08-30-2023 Bilirubin [Mass/Vol] 0.50 mg/dL 0.20-1.00 [facility] Comment on above: For patients on eltr ombopag therapy, use of Dimension [place] TBIL is not recommended. Protein [Mass/Vol] 7.8 g/dL 6.4-8.2 [facility] Gram stain for investigation of transfusion reactionOrdered By: Jordi Perkins on 08-30-2023 Microscopic observation Gram stain Nom (Unsp spec) [facility] Microscopic observation Gram stain Nom (Unsp spec) [facility] Laboratory - Chemistry and C hemistry - challengeOrdered By: Jordi Talley on 08-30-2023 Albumin/Globulin [Mass ratio] 0.9 {ratio} 0.9-2.4 [facility] ALP [Catalytic activity/Vol] 114 U/L 45-117 [facility] ALT [Catalytic activity/Vol] 22 U/L 16-61 [facility] Globulin (S) [Mass/Vol] 4.1 g/dL 2.2-4.2 [facility] - Microbiology an d Antimicrobial susceptibilityOrdered By: Jordi Talley on 08-30-2023 Bacteria identified Cx Nom (Bld) No growth in 5 days. [facility] Bacteria identified Cx Nom (Bld) No growth in 5 days. [facility] Thin prep Papanicolaou smear with manual screeningOrdered By: Jordi Talley on 08-30-2023 Thin prep Papanicolaou smear with manual screening 3.7 g/dL 3.2-5.0 [facility] Thin prep Papanicolaou smear with manual screening 17 U/L 15-37 [facility] Glucose Glucometer (BldC) [M ass/Vol]Ordered By: Jordi Perkins on 07-16-2023 Glucose [Mass/Vol] 212 mg/dL 74-106 [facility] Comment on above: MANAGEMENT OF PATIEN T CARE PER NURSING PROTOCOL Blood hemoglobin measurement (mass/volume)Ordered By: Jordi Perkins on 07-15-2023 Hemoglobin (Bld) [Mass/Vol] 11.5 g/dL 13.0-16.5 [facility] HCVon 07-15-2023 Hep C Ab Non-Reactive Normal Non-Reactiv e [facility] ([place]) Comment on above: Performed By: #### L IPID, CMP, ADIFF, CBC, GFR, ANEU #### [facility] [address] [place], [place] [address] #### HCV1 #### [facility] [address] [place] [address] Hep C Ab Int Normal [facility] ([place]) Comment on above: Result Comment: Nonr eactive: Samples with a value < 0.80 are considered nonreactive (negative) for antibodies to HCV. A negative test result does not exclude the possibility of exposure to or infection with HCV. HCV antibodies may be undetectable in some stages of the infection and in some clinical conditions. See Interp Performed By: #### L IPID, CMP, ADIFF, CBC, GFR, ANEU #### [address] [address] #### HCV1 #### [address] [address] Hematocrit Auto (Bld) [Volum e fraction]Ordered By: Jordi Perkins on 07-15-2023 Hematocrit (Bld) [Volume fraction] 34.7 % 40-54 [facility] .Auto Diffon 07-14-2023 Basophil, Absolute 0.0 10 3/mcL Normal 0.0-0.2 [facility] ([place]) Comment on above: Performed By: #### L IPID, CMP, ADIFF, CBC, GFR, ANEU #### [place] [address] #### HCV1 #### [address] [address] Basophils/100 WBC (Bld) 0.8 % Normal 0.0-2.5 [facility] ([place]) Comment on above: Performed By: #### L IPID, CMP, ADIFF, CBC, GFR, ANEU #### [address] [address] #### HCV1 #### [address] [address] Eosinophil, Absolute 0.4 10 3/mcL Normal 0.0-0.4 [facility] ([place]) Comment on above: Performed By: #### L IPID, CMP, ADIFF, CBC, GFR, ANEU #### [place] [address] #### HCV1 #### [address] [address] Eosinophils/100 WBC (Bld) 8.1 % High 0.0-7.0 [facility] ([place]) Comment on above: Performed By: #### L IPID, CMP, ADIFF, CBC, GFR, ANEU #### [address] [address] #### HCV1 #### [address] [address] Lymphocyte, Absolute 1.2 10 3/mcL Normal 0.8-3.9 [facility] ([place]) Comment on above: Performed By: #### L IPID, CMP, ADIFF, CBC, GFR, ANEU #### [address] [address] #### HCV1 #### [address] [address] Lymphocytes/100 WBC (Bld) 22.4 % Normal 10.0-50.0 [facility] ([place]) Comment on above: Performed By: #### L IPID, CMP, ADIFF, CBC, GFR, ANEU #### [address] [address] #### HCV1 #### [address] [address] Monocyte, Absolute 0.5 10 3/mcL Normal 0.2-1.0 [facility] ([place]) Comment on above: Performed By: #### L IPID, CMP, ADIFF, CBC, GFR, ANEU #### [address] [address] #### HCV1 #### [address] [address] Monocytes/100 WBC (Bld) 9.7 % Normal 1.7-13.0 [facility] ([place]) Comment on above: Performed By: #### L IPID, CMP, ADIFF, CBC, GFR, ANEU #### [place] [address] #### HCV1 #### [address] [address] Neutrophils/100 WBC (Bld) 59.0 % Normal 37.0-80.0 [facility] ([place]) Comment on above: Performed By: #### L IPID, CMP, ADIFF, CBC, GFR, ANEU #### [address] [address] #### HCV1 #### [address] [address] .GFRon 07-14-2023 GFR Non- 80 ml/min/1.73sqm Normal [facility] ([place]) Comment on above: Result Comment: GFR Population mean for , Non- Americans Ages 20-29 = 116 mL/min/1.73 sq.m. Ages 30-39 = 107 mL/min/1.73 sq.m. Ages 40-49 = 99 mL/min/1.73 sq.m. Ages 50-59 = 93 mL/min/1.73 sq.m. Ages 60-69 = 85 mL/min/1.73 sq.m. Ages 70+ = 75 mL/min/1.73 sq.m. Chronic Kidney Disease: Less than 60 mL/min/1.73 square meters End Stage Renal Disease: Less than 15 mL/min/1.73 square meters Performed By: #### L IPID, CMP, ADIFF, CBC, GFR, ANEU #### [address] [address] #### HCV1 #### [place] [address] GFR 98 ml/min/1.73sqm Normal [facility] ([place]) Comment on above: Result Comment: GFR Population mean for , Non- Americans Ages 20-29 = 116 mL/min/1.73 sq.m. Ages 30-39 = 107 mL/min/1.73 sq.m. Ages 40-49 = 99 mL/min/1.73 sq.m. Ages 50-59 = 93 mL/min/1.73 sq.m. Ages 60-69 = 85 mL/min/1.73 sq.m. Ages 70+ = 75 mL/min/1.73 sq.m. Chronic Kidney Disease: Less than 60 mL/min/1.73 square meters End Stage Renal Disease: Less than 15 mL/min/1.73 square meters Performed By: #### L IPID, CMP, ADIFF, CBC, GFR, ANEU #### [address] [address] #### HCV1 #### [address] [address] .NEUABSon 07-14-2023 Neutrophil, Absolute 3.1 10 3/mcL Normal 2.9-6.2 [facility] ([place]) Comment on above: Performed By: #### L IPID, CMP, ADIFF, CBC, GFR, ANEU #### [address] [address] #### HCV1 #### [address] [address] CBCon 07-14-2023 Erythrocyte distribution width (RBC) [Ratio] 13.7 % Normal 11.5-14.5 [facility] ([place]) Comment on above: Performed By: #### L IPID, CMP, ADIFF, CBC, GFR, ANEU #### [place] [address] #### HCV1 #### [place] [address] Hematocrit (Bld) [Volume fraction] 42.9 % Normal 42.0-52.0 [facility] ([place]) Comment on above: Performed By: #### L IPID, CMP, ADIFF, CBC, GFR, ANEU #### [place] [address] #### HCV1 #### [place] [address] Hgb 14.4 G/dL Normal 14.0-18.0 [facility] ([place]) Comment on above: Performed By: #### L IPID, CMP, ADIFF, CBC, GFR, ANEU #### [place] [address] #### HCV1 #### [place] [address] MCH (RBC) [Entitic mass] 27.4 pg Normal 27.0-31.2 [facility] ([place] Comment on above: Performed By: #### L IPID, CMP, ADIFF, CBC, GFR, ANEU #### [place] [address] #### HCV1 #### [place] [address] MCHC 33.5 G/dL Normal 31.8-35.4 [facility] ([place] Comment on above: Performed By: #### L IPID, CMP, ADIFF, CBC, GFR, ANEU #### [place] [address] #### HCV1 #### [address] [address] MCV (RBC) [Entitic vol] 81.8 fL Normal 80.0-94.0 [facility] ([place]) Comment on above: Performed By: #### L IPID, CMP, ADIFF, CBC, GFR, ANEU #### [place] [address] #### HCV1 #### [place] [address] Platelet 224 10 3/mcL Normal 130-400 [facility] ([place]) Comment on above: Performed By: #### L IPID, CMP, ADIFF, CBC, GFR, ANEU #### [place] [address] #### HCV1 #### [place] [address] Platelet mean volume (Bld) [Entitic vol] 8.1 fL Normal 7.4-10.4 [facility] ([place]) Comment on above: Performed By: #### L IPID, CMP, ADIFF, CBC, GFR, ANEU #### [place] [address] #### HCV1 #### [place] [address] RBC 5.25 10 6/mcL Normal 4.04-6.13 [facility] ([place]) Comment on above: Performed By: #### L IPID, CMP, ADIFF, CBC, GFR, ANEU #### [place] [address] #### HCV1 #### [place] [address] WBC 5.2 10 3/mcL Normal 4.6-10.8 [facility] ([place]) Comment on above: Performed By: #### L IPID, CMP, ADIFF, CBC, GFR, ANEU #### [address] [address] #### HCV1 #### [address] [address] CMPon 07-14-2023 Albumin Level 3.5 G/dL Normal 3.5-5.0 [facility] ([place]) Comment on above: Performed By: #### L IPID, CMP, ADIFF, CBC, GFR, ANEU #### [address] [address] #### HCV1 #### [address] [address] Albumin/Globulin [Mass ratio] 1.0 {ratio} Low 1.1-2.5 [facility] ([place]) Comment on above: Performed By: #### L IPID, CMP, ADIFF, CBC, GFR, ANEU #### [place] [address] #### HCV1 #### [address] [address] ALP [Catalytic activity/Vol] 118 U/L Normal 40-135 [facility] ([place]) Comment on above: Performed By: #### L IPID, CMP, ADIFF, CBC, GFR, ANEU #### [address] [address] #### HCV1 #### [address] [address] ALT [Catalytic activity/Vol] 38 U/L Normal 16-63 [facility] ([place]) Comment on above: Performed By: #### L IPID, CMP, ADIFF, CBC, GFR, ANEU #### [address] [address] #### HCV1 #### [address] [address] AST [Catalytic activity/Vol] 20 U/L Normal 10-40 [facility] ([place]) Comment on above: Performed By: #### L IPID, CMP, ADIFF, CBC, GFR, ANEU #### [address] [address] #### HCV1 #### [address] [address] Bili Total 0.4 mg/dL Normal 0.2-1.0 [facility] ([place]) Comment on above: Result Comment: Use of this assay is not recommended for patients undergoing treatment with eltrombopag due to the potential for falsely elevated results. Performed By: #### L IPID, CMP, ADIFF, CBC, GFR, ANEU #### [address] [address] #### HCV1 #### [address] [address] BUN/Creatinine Ratio 22 ratio Normal 7-27 [facility] ([place]) Comment on above: Performed By: #### L IPID, CMP, ADIFF, CBC, GFR, ANEU #### [place] [address] #### HCV1 #### [address] [address] Calcium [Mass/Vol] 9.4 mg/dL Normal 8.4-10.2 [facility] ([place]) Comment on above: Performed By: #### L IPID, CMP, ADIFF, CBC, GFR, ANEU #### [address] [address] #### HCV1 #### [address] [address] Chloride [Moles/Vol] 100 mmol/L Normal 98-107 [facility] ([place]) Comment on above: Performed By: #### L IPID, CMP, ADIFF, CBC, GFR, ANEU #### [address] [address] #### HCV1 #### [address] [address] CO2 [Moles/Vol] 32 mmol/L High 22-29 [facility] ([place]) Comment on above: Performed By: #### L IPID, CMP, ADIFF, CBC, GFR, ANEU #### [address] [address] #### HCV1 #### [address] [address] Creatinine [Mass/Vol] 1.02 mg/dL Normal 0.70-1.30 [facility] ([place]) Comment on above: Performed By: #### L IPID, CMP, ADIFF, CBC, GFR, ANEU #### [place] [address] #### HCV1 #### [address] [address] Electrolyte Balance 8.0 mEq/L Normal 4.0-15.0 [facility] ([place]) Comment on above: Performed By: #### L IPID, CMP, ADIFF, CBC, GFR, ANEU #### [place] [address] #### HCV1 #### [place] [address] Globulin 3.5 G/dL Normal [facility] ([place]) Comment on above: Performed By: #### L IPID, CMP, ADIFF, CBC, GFR, ANEU #### [address] [address] #### HCV1 #### [address] [address] Glucose [Mass/Vol] 250 mg/dL High 70-105 [facility] ([place]) Comment on above: Performed By: #### L IPID, CMP, ADIFF, CBC, GFR, ANEU #### [address] [address] #### HCV1 #### [address] [address] Potassium [Moles/Vol] 4.5 mmol/L Normal 3.5-5.1 [facility] ([place]) Comment on above: Performed By: #### L IPID, CMP, ADIFF, CBC, GFR, ANEU #### [address] [address] #### HCV1 #### [address] [address] Sodium [Moles/Vol] 140 mmol/L Normal 136-145 [facility] ([place]) Comment on above: Performed By: #### L IPID, CMP, ADIFF, CBC, GFR, ANEU #### [address] [address] #### HCV1 #### [address] [address] Total Protein 7.0 G/dL Normal 6.4-8.2 [facility] ([place]) Comment on above: Performed By: #### L IPID, CMP, ADIFF, CBC, GFR, ANEU #### [address] [address] #### HCV1 #### [address] [address] Urea nitrogen [Mass/Vol] 22 mg/dL High 7-18 [facility] ([place]) Comment on above: Performed By: #### L IPID, CMP, ADIFF, CBC, GFR, ANEU #### [address] [address] #### HCV1 #### [address] [address] LABORATORYOrdered By: Kam Milian on 07-14-2023 Albumin DL <= 20 mg/L (U) [Mass/Vol] 9120 mcg/dL Invalid Interpretation Code AO ADM SS Albumin/Creatinine DL <= 20 mg/L (U) [Mass ratio] 124 mcg/mg High 0 - 30 mcg/mg AO ADM SS Creatinine (U) [Mass/Vol] 73.7 mg/dL Normal 39.0 - 259.0 mg/dL AO ADM SS Cholesterol [Mass/Vol] 151 mg/dL Normal 0 - 2 00 mg/dL AO ADM SS Comment on above: Interpretive Data: C holesterol Reference Interval: Less than 200 Desirable 200-239 Borderline high risk 240 and above High risk Cholesterol in HDL [Mass/Vol] 44 mg/dL Normal 40 - 60 mg/dL AO ADM SS Cholesterol in LDL [Mass/Vol] 65 mg/dL Normal 0 - 130 mg/dL AO ADM SS Triglyceride [Mass/Vol] 211 mg/dL High 0 - 150 mg/dL AO ADM SS Comment on above: Interpretive Data: T riglyceride Reference Interval: Less than 150 Normal 150-199 Borderline high risk 200-499 High risk 500 or higher Very high risk LABORATORYOrdered By: SYSTEM SYSTEM on 07-14-2023 Albumin BCP dye [Mass/Vol] 3.5 G/dL Normal 3.5 - 5.0 G/dL AO ADM SS Albumin/Globulin [Mass ratio] 1.0 {ratio} Low 1.1 - 2.5 ratio AO ADM SS ALP [Catalytic activity/Vol] 118 U/L Normal 40 - 135 U/L AO ADM SS ALT With P-5'-P [Catalytic activity/Vol] 38 U/L Normal 16 - 63 U/L AO ADM SS AST With P-5'-P [Catalytic activity/Vol] 20 U/L Normal 10 - 40 U/L AO ADM SS Basophil, Absolute 0.0 103/mcL Normal 0.0 - 0.2 10^3/mcL AO Workflow SS Basophils/100 WBC (Bld) 0.8 % Normal 0.0 - 2.5 % AO Workflow SS Bilirubin [Mass/Vol] 0.4 mg/dL Normal 0.2 - 1 .0 mg/dL AO ADM SS Comment on above: Interpretive Data: U se of this assay is not recommended for patients undergoing treatment with eltrombopag due to the potential for falsely elevated results. Calcium [Mass/Vol] 9.4 mg/dL Normal 8.4 - 10. 2 mg/dL AO ADM SS Chloride [Moles/Vol] 100 mmol/L Normal 98 - 10 7 mmol/L AO ADM SS CO2 [Moles/Vol] 32 mmol/L High 22 - 29 mmol/L AO ADM SS Creatinine [Mass/Vol] 1.02 mg/dL Normal 0.70 - 1.30 mg/dL AO ADM SS Electrolyte Balance 8.0 mEq/L Normal 4.0 - 15 .0 mEq/L AO ADM SS Eosinophil, Absolute 0.4 103/mcL Normal 0.0 - 0 .4 10^3/mcL AO Workflow SS Eosinophils/100 WBC (Bld) 8.1 % High 0.0 - 7.0 % AO Workflow SS Erythrocyte distribution width (RBC) [Ratio] 13.7 % Normal 11.5 - 14.5 % AO Workflow SS GFR/1.73 sq M.predicted among blacks MDRD (S/P/Bld) [Vol rate/Area] 98 ml/min/1.73sqm Invalid Interpretation Code AO Chemistry S Comment on above: Interpretive Data: GFR Population mean for , Non- Americans Ages 20-29 = 116 mL/min/1.73 sq.m. Ages 30-39 = 107 mL/min/1.73 sq.m. Ages 40-49 = 99 mL/min/1.73 sq.m. Ages 50-59 = 93 mL/min/1.73 sq.m. Ages 60-69 = 85 mL/min/1.73 sq.m. Ages 70+ = 75 mL/min/1.73 sq.m. Chronic Kidney Disease: Less than 60 mL/min/1.73 square meters End Stage Renal Disease: Less than 15 mL/min/1.73 square meters GFR/1.73 sq M.predicted among non-blacks MDRD (S/P/Bld) [Vol rate/Area] 80 ml/min/1.73sqm Invalid Interpretation Code AO Chemistry S Comment on above: Interpretive Data: GFR Population mean for , Non- Americans Ages 20-29 = 116 mL/min/1.73 sq.m. Ages 30-39 = 107 mL/min/1.73 sq.m. Ages 40-49 = 99 mL/min/1.73 sq.m. Ages 50-59 = 93 mL/min/1.73 sq.m. Ages 60-69 = 85 mL/min/1.73 sq.m. Ages 70+ = 75 mL/min/1.73 sq.m. Chronic Kidney Disease: Less than 60 mL/min/1.73 square meters End Stage Renal Disease: Less than 15 mL/min/1.73 square meters Globulin 3.5 G/dL Invalid Interpretation Code AO ADM SS Glucose [Mass/Vol] 250 mg/dL High 70 - 105 mg/dL AO ADM SS Hematocrit (Bld) [Volume fraction] 42.9 % Normal 42.0 - 52.0 % AO Workflow SS Hemoglobin (Bld) [Mass/Vol] 14.4 G/dL Normal 14.0 - 18.0 G/dL AO Workflow SS Lymphocyte, Absolute 1.2 103/mcL Normal 0.8 - 3 .9 10^3/mcL AO Workflow SS Lymphocytes/100 WBC (Bld) 22.4 % Normal 10.0 - 50.0 % AO Workflow SS MCH (RBC) [Entitic mass] 27.4 pg Normal 27. 0 - 31.2 pg AO Workflow SS MCHC 33.5 G/dL Normal 31.8 - 35.4 G/dL AO Workflow SS MCV (RBC) [Entitic vol] 81.8 fL Normal 80.0 - 94.0 fL AO Workflow SS Monocyte, Absolute 0.5 103/mcL Normal 0.2 - 1.0 10^3/mcL AO Workflow SS Monocytes/100 WBC (Bld) 9.7 % Normal 1.7 - 13.0 % AO Workflow SS Neutrophil, Absolute 3.1 103/mcL Normal 2.9 - 6 .2 10^3/mcL AO Workflow SS Neutrophils/100 WBC (Bld) 59.0 % Normal 37.0 - 80.0 % AO Workflow SS Platelet mean volume (Bld) [Entitic vol] 8.1 fL Normal 7.4 - 10.4 fL AO Workflow SS Platelets (Bld) [#/Vol] 224 103/mcL Normal 130 - 400 10^3/mcL AO Workflow SS Potassium [Moles/Vol] 4.5 mmol/L Normal 3.5 - 5.1 mmol/L AO ADM SS Protein [Mass/Vol] 7.0 G/dL Normal 6.4 - 8.2 G/dL AO ADM SS RBC (Bld) [#/Vol] 5.25 106/mcL Normal 4.04 - 6.1 3 10^6/mcL AO Workflow SS Sodium [Moles/Vol] 140 mmol/L Normal 136 - 145 mmol/L AO ADM SS Urea nitrogen [Mass/Vol] 22 mg/dL High 7 - 18 mg/dL AO ADM SS Urea nitrogen/Creatinine [Mass ratio] 22 ratio Normal 7 - 27 ratio AO ADM SS WBC (Bld) [#/Vol] 5.2 103/mcL Normal 4.6 - 10.8 10^3/mcL AO Workflow SS LABORATORYOrdered By: Anne Marie Leal on 07-14-2023 HCV Ab IA Ql Non-Reactive (07/14/23 3:24 PM) Normal Non-Reactiv e AH ADM SS HCV Ab IA Ql Nonreactive: Samples with a value < 0.80 are considered nonreactive (negative) for antibodies to HCV.A negative test result does not exclude the possibility of exposure to or infection with HCV. HCV antibodies may be undetectable in some stages of the infection and in some clinical conditions. Invalid Interpretation Code Chemistry S LIPIDon 07-14-2023 Cholesterol [Mass/Vol] 151 mg/dL Normal 0-200 [facility] ([place]) Comment on above: Result Comment: Chol esterol Reference Interval: Less than 200 Desirable 200-239 Borderline high risk 240 and above High risk Performed By: #### L IPID, CMP, ADIFF, CBC, GFR, ANEU #### [place] [address] #### HCV1 #### [address] [address] Cholesterol in HDL [Mass/Vol] 44 mg/dL Normal 40-60 [facility] ([place]) Comment on above: Performed By: #### L IPID, CMP, ADIFF, CBC, GFR, ANEU #### [address] [address] #### HCV1 #### [address] [address] Cholesterol in LDL [Mass/Vol] 65 mg/dL Normal 0-130 [facility] ([place]) Comment on above: Performed By: #### L IPID, CMP, ADIFF, CBC, GFR, ANEU #### [address] [address] #### HCV1 #### [address] [address] Triglyceride [Mass/Vol] 211 mg/dL High 0-150 [facility] ([place]) Comment on above: Result Comment: Trig lyceride Reference Interval: Less than 150 Normal 150-199 Borderline high risk 200-499 High risk 500 or higher Very high risk Performed By: #### L IPID, CMP, ADIFF, CBC, GFR, ANEU #### [address] [address] #### HCV1 #### [address] [address] [facility] U Creatinine 73.7 mg/dL Normal 39.0-259.0 [facility] ([place]) Comment on above: Performed By: #### M ALBR #### [address] [place] [id number] [place], [place] [address] U Microalb 9120 mcg/dL Normal [facility] ([place]) Comment on above: Performed By: #### M ALBR #### [address] [place], [place] [address] U Ratio Alb/Cre 124 mcg/mg High 0-30 [facility] ([place]) Comment on above: Performed By: #### M ALBR #### [address] [place] [id number] [place], [place] [address] Absolute lymphocyte countOrd ered By: Radha Dias on 06-24-2023 Lymphocytes Auto (Unsp spec) [#/Vol] 1.08 10*3/uL 0.83-4.51 [facility] Basophil percentageOrdered B y: Radha Dias on 06-24-2023 Basophils/100 WBC (Bld) 0.6 % 0-1 [facility] Bilirubin [Mass/Vol] 0.50 mg/dL 0.20-1.00 [facility] Comment on above: For patients on eltr ombopag therapy, use of Dimension [place] TBIL is not recommended. Chloride [Moles/Vol] 103 mmol/L 98-107 [facility] Eosinophils/100 WBC (Bld) 6.9 % 0-5 [facility] Glucose [Mass/Vol] 201 mg/dL 74-106 [facility] Comment on above: Glucose result great er than or equal to 200 mg/dLsuggests DIABETES MELLITUS per A.D.A. criteria. Neutrophils (Bld) [#/Vol] 4.6 10*3/uL 2.0-7.7 [facility] Neutrophils/100 WBC (Bld) 68.1 % 47-70 [facility] Potassium [Moles/Vol] 3.9 mmol/L 3.5-5.1 [facility] Protein [Mass/Vol] 7.1 g/dL 6.4-8.2 [facility] Sodium [Moles/Vol] 140 mmol/L 136-145 [facility] WBC (Bld) [#/Vol] 6.8 10*3/uL 4.4-11.0 [facility] Blood erythrocytes count (nu mber/volume)Ordered By: Radha Dias on 06-24-2023 RBC (Bld) [#/Vol] 5.42 10*6/uL 4.6-6.2 [facility] Blood hemoglobin measurement (mass/volume)Ordered By: Radha Dias on 06-24-2023 Hemoglobin (Bld) [Mass/Vol] 14.8 g/dL 13.0-16.5 [facility] Blood lymphocytes/100 leukoc ytesOrdered By: Radha Dias on 06-24-2023 Lymphocytes/100 WBC (Bld) 15.8 % 19-41 [facility] Blood monocytes/100 leukocyt esOrdered By: Radha Dias on 06-24-2023 Monocytes/100 WBC (Bld) 7.9 % 0-10 [facility] Blood platelet mean volumeOr dered By: Radha Dias on 06-24-2023 Platelet mean volume (Bld) [Entitic vol] 10.5 fL 6.2-12.0 [facility] Determination of erythrocyte mean corpuscular volume (MCV)Ordered By: Radha Dias on 06-24-2023 MCV (RBC) [Entitic vol] 85.1 fL 80-94 [facility] Hematocrit Auto (Bld) [Volum e fraction]Ordered By: Radha Dias on 06-24-2023 Hematocrit (Bld) [Volume fraction] 46.1 % 40-54 [facility] Laboratory - Chemistry and C hemistry - challengeOrdered By: Radha Dias on 06-24-2023 ALP [Catalytic activity/Vol] 115 U/L 45-117 [facility] ALT [Catalytic activity/Vol] 39 U/L 16-61 [facility] CO2 [Moles/Vol] 30.0 mmol/L 21.0-32.0 [facility] Globulin (S) [Mass/Vol] 3.6 g/dL 2.2-4.2 [facility] Urea nitrogen/Creatinine [Mass ratio] 20.4 mg/mg 10-20 [facility] Laboratory - Hematology and Cell countsOrdered By: Radha Dias on 06-24-2023 Erythrocyte distribution width (RBC) [Entitic vol] 40.3 fL 35.1-43.9 [facility] Erythrocyte distribution width (RBC) [Ratio] 13.2 % 11.6-14.6 [facility] Immature granulocytes/100 WBC (Bld) 0.700 % 0.0-0.9 [facility] Comment on above: IG% - Immature Granu locytes (promyelocytes, myelocytes and metamyelocytes) > 1% indicates that a LEFT SHIFT is Present. MCH (RBC) [Entitic mass] 27.3 pg 27.0-32.0 [facility] Nucleated RBC/100 WBC (Bld) [Ratio] 0 % 0-5 [facility] MCHC Auto (RBC) [Mass/Vol]Or dered By: Radha Dias on 06-24-2023 MCHC (RBC) [Mass/Vol] 32.1 g/dL 32-36 [facility] No Panel InformationOrdered By: Radha Dias on 06-24-2023 Estimated GFR (MDRD) Amer 97 mL/min >60 [facility] Comment on above: GFR Calc Estimated GFR (MDRD) Non-Af Amer 80 mL/min >60 [facility] Comment on above: Non- GFR Calc Platelets bldOrdered By: Radha Dias on 06-24-2023 Platelets (Bld) [#/Vol] 260 10*3/uL 150-450 [facility] Serum or plasma albumin anel urement (mass/volume)Ordered By: Radha Dias on 06-24-2023 Albumin [Mass/Vol] 3.5 g/dL 3.2-5.0 [facility] Serum or plasma albumin/glob ulin mass ratioOrdered By: Radha Dias on 06-24-2023 Albumin/Globulin [Mass ratio] 1.0 {ratio} 0.9-2.4 [facility] Serum or plasma calcium anel urement (mass/volume)Ordered By: Radha Dias on 06-24-2023 Calcium [Mass/Vol] 9.4 mg/dL 8.5-10.1 [facility] Serum or plasma creatinine m easurement (mass/volume)Ordered By: Radha Dias on 06-24-2023 Creatinine [Mass/Vol] 1.08 mg/dL 0.70-1.30 [facility] Comment on above: The validity of the calculated GFR & GFRAA in patients over 70 years has not been determined. Clinical correlation is essential. Serum or plasma urea nitroge n measurement (mass/volume)Ordered By: Radha Dias on 06-24-2023 Urea nitrogen [Mass/Vol] 22 mg/dL 7-18 [facility] Thin prep Papanicolaou smear with manual screeningOrdered By: Radha Dias on 06-24-2023 Thin prep Papanicolaou smear with manual screening 22 U/L 15-37 [facility] Thin prep Papanicolaou smear with manual screening 7 5-15 [facility] Absolute lymphocyte countOrd ered By: Dr. Perkins on 09-18-2022 Lymphocytes Auto (Unsp spec) [#/Vol] 0.83 10*3/uL 0.83-4.51 [facility] Basophil percentageOrdered B y: Dr. Perkins on 09-18-2022 Basophils/100 WBC (Bld) 0.2 % 0-1 [facility] Chloride [Moles/Vol] 107 mmol/L 98-107 [facility] Eosinophils/100 WBC (Bld) 0.9 % 0-5 [facility] Glucose [Mass/Vol] 162 mg/dL 74-106 [facility] Comment on above: Fasting Glucose resu lt greater than or equal to 126 mg/dL suggests DIABETES MELLITUS per A.D.A. criteria. Neutrophils (Bld) [#/Vol] 6.7 10*3/uL 2.0-7.7 [facility] Neutrophils/100 WBC (Bld) 78.9 % 47-70 [facility] Potassium [Moles/Vol] 4.1 mmol/L 3.5-5.1 [facility] Sodium [Moles/Vol] 142 mmol/L 136-145 [facility] WBC (Bld) [#/Vol] 8.5 10*3/uL 4.4-11.0 [facility] Blood erythrocytes count (nu mber/volume)Ordered By: Dr. Perkins on 09-18-2022 RBC (Bld) [#/Vol] 4.77 10*6/uL 4.6-6.2 [facility] Blood hemoglobin measurement (mass/volume)Ordered By: Dr. Perkins on 09-18-2022 Hemoglobin (Bld) [Mass/Vol] 13.8 g/dL 13.0-16.5 [facility] Blood lymphocytes/100 leukoc ytesOrdered By: Dr. Perkins on 09-18-2022 Lymphocytes/100 WBC (Bld) 9.8 % 19-41 [facility] Blood monocytes/100 leukocyt esOrdered By: Dr. Perkins on 09-18-2022 Monocytes/100 WBC (Bld) 10.0 % 0-10 [facility] Blood platelet mean volumeOr dered By: Dr. Perkins on 09-18-2022 Platelet mean volume (Bld) [Entitic vol] 9.3 fL 6.2-12.0 [facility] Determination of erythrocyte mean corpuscular volume (MCV)Ordered By: Dr. Perkins on 09-18-2022 MCV (RBC) [Entitic vol] 87.8 fL 80-94 [facility] Glucose Glucometer (dC) [M ass/Vol]Ordered By: Dr. Perkins on 09-18-2022 Glucose [Mass/Vol] 225 mg/dL 74-106 [facility] Comment on above: MANAGEMENT OF PATIEN T CARE PER NURSING PROTOCOL Hematocrit Auto (Bld) [Volum e fraction]Ordered By: Dr. Perkins on 09-18-2022 Hematocrit (Bld) [Volume fraction] 41.9 % 40-54 [facility] Laboratory - Chemistry and C hemistry - challengeOrdered By: Dr. Perkins on 09-18-2022 CO2 [Moles/Vol] 28.0 mmol/L 21.0-32.0 [facility] Urea nitrogen/Creatinine [Mass ratio] 27.7 mg/mg 10-20 [facility] Laboratory - Hematology and Cell countsOrdered By: Dr. Perkins on 09-18-2022 Erythrocyte distribution width (RBC) [Entitic vol] 43.0 fL 35.1-43.9 [facility] Erythrocyte distribution width (RBC) [Ratio] 13.3 % 11.6-14.6 [facility] Immature granulocytes/100 WBC (Bld) 0.200 % 0.0-0.9 [facility] Comment on above: IG% - Immature Granu locytes (promyelocytes, myelocytes and metamyelocytes) > 1% indicates that a LEFT SHIFT is Present. MCH (RBC) [Entitic mass] 28.9 pg 27.0-32.0 [facility] Nucleated RBC/100 WBC (Bld) [Ratio] 0 % 0-5 [facility] MCHC Auto (RBC) [Mass/Vol]Or dered By: Dr. Perkins on 09-18-2022 MCHC (RBC) [Mass/Vol] 32.9 g/dL 32-36 [facility] No Panel InformationOrdered By: Dr. Perkins on 09-18-2022 Estimated Creatinine Clearance Calc 87.89 ml/min [facility] Estimated GFR (MDRD) Amer 87 mL/min >60 [facility] Comment on above: GFR Calc Estimated GFR (MDRD) Non-Af Amer 72 mL/min >60 [facility] Comment on above: Non- GFR Calc Platelets bldOrdered By: Dr. Perkins on 09-18-2022 Platelets (Bld) [#/Vol] 199 10*3/uL 150-450 [facility] Serum or plasma calcium anel urement (mass/volume)Ordered By: Dr. Perkins on 09-18-2022 Calcium [Mass/Vol] 8.9 mg/dL 8.5-10.1 [facility] Serum or plasma creatinine m easurement (mass/volume)Ordered By: Dr. Perkins on 09-18-2022 Creatinine [Mass/Vol] 1.19 mg/dL 0.70-1.30 [facility] Comment on above: The validity of the calculated GFR & GFRAA in patients over 70 years has not been determined. Clinical correlation is essential. Serum or plasma urea nitroge n measurement (mass/volume)Ordered By: Dr. Perkins on 09-18-2022 Urea nitrogen [Mass/Vol] 33 mg/dL 7-18 [facility] Thin prep Papanicolaou smear with manual screeningOrdered By: Dr. Perkins on 09-18-2022 Thin prep Papanicolaou smear with manual screening 7 5-15 [facility] Whole blood hemoglobin A1c/t otal hemoglobin ratio (mass fraction)Ordered By: Dr. Saba on 09-18-2022 HbA1c (Bld) [Mass fraction] 6.1 % 3.8-5.6 [facility] Comment on above: Normal < 5.7 % Predi abetic 5.7 - 6.4 % Diabetic >or= 6.5 % Please note range changes. Basophil percentageOrdered B y: Dr. Perkins on 09-17-2022 Bilirubin [Mass/Vol] 0.70 mg/dL 0.20-1.00 [facility] Comment on above: For patients on eltr ombopag therapy, use of Dimension [place] TBIL is not recommended. Protein [Mass/Vol] 6.6 g/dL 6.4-8.2 [facility] Blood manual differential co mment interpretation (narrative result)Ordered By: Dr. Perkins on 09-17-2022 Manual differential comment Geraldo (Bld) [Interp] SCANNED [facility] Laboratory - Chemistry and C hemistry - challengeOrdered By: Dr. Perkins on 09-17-2022 ALP [Catalytic activity/Vol] 77 U/L 45-117 [facility] ALT [Catalytic activity/Vol] 26 U/L 16-61 [facility] Globulin (S) [Mass/Vol] 3.1 g/dL 2.2-4.2 [facility] Serum or plasma albumin anel urement (mass/volume)Ordered By: Dr. Perkins on 09-17-2022 Albumin [Mass/Vol] 3.5 g/dL 3.2-5.0 [facility] Serum or plasma albumin/glob ulin mass ratioOrdered By: Dr. Perkins on 09-17-2022 Albumin/Globulin [Mass ratio] 1.1 {ratio} 0.9-2.4 [facility] Thin prep Papanicolaou smear with manual screeningOrdered By: Dr. Perkins on 09-17-2022 Thin prep Papanicolaou smear with manual screening 19 U/L 15-37 [facility] Absolute lymphocyte countOrd ered By: Dr. Dias on 08-24-2022 Lymphocytes Auto (Unsp spec) [#/Vol] 1.36 10*3/uL 0.83-4.51 [facility] Basophil percentageOrdered B y: Dr. Dias on 08-24-2022 Basophils/100 WBC (Bld) 0.7 % 0-1 [facility] Bilirubin [Mass/Vol] 0.50 mg/dL 0.20-1.00 [facility] Comment on above: For patients on eltr ombopag therapy, use of Dimension [place] TBIL is not recommended. Chloride [Moles/Vol] 104 mmol/L 98-107 [facility] Eosinophils/100 WBC (Bld) 8.9 % 0-5 [facility] Glucose [Mass/Vol] 105 mg/dL 74-106 [facility] Comment on above: Fasting Glucose resu lt from 100 to 125 mg/dL suggests IMPAIRED HOMEOSTASIS per A.D.A. criteria. Neutrophils (Bld) [#/Vol] 3.1 10*3/uL 2.0-7.7 [facility] Neutrophils/100 WBC (Bld) 56.4 % 47-70 [facility] Potassium [Moles/Vol] 4.1 mmol/L 3.5-5.1 [facility] Protein [Mass/Vol] 7.5 g/dL 6.4-8.2 [facility] Sodium [Moles/Vol] 142 mmol/L 136-145 [facility] WBC (Bld) [#/Vol] 5.5 10*3/uL 4.4-11.0 [facility] Blood erythrocytes count (nu mber/volume)Ordered By: Dr. Dias on 08-24-2022 RBC (Bld) [#/Vol] 5.81 10*6/uL 4.6-6.2 [facility] Blood hemoglobin measurement (mass/volume)Ordered By: Dr. Dias on 08-24-2022 Hemoglobin (Bld) [Mass/Vol] 16.6 g/dL 13.0-16.5 [facility] Blood lymphocytes/100 leukoc ytesOrdered By: Dr. Dias on 08-24-2022 Lymphocytes/100 WBC (Bld) 24.7 % 19-41 [facility] Blood monocytes/100 leukocyt esOrdered By: Dr. Dias on 08-24-2022 Monocytes/100 WBC (Bld) 9.1 % 0-10 [facility] Blood platelet mean volumeOr dered By: Dr. Dias on 08-24-2022 Platelet mean volume (Bld) [Entitic vol] 9.6 fL 6.2-12.0 [facility] Determination of erythrocyte mean corpuscular volume (MCV)Ordered By: Dr. Dias on 08-24-2022 MCV (RBC) [Entitic vol] 86.9 fL 80-94 [facility] Hematocrit Auto (Bld) [Volum e fraction]Ordered By: Dr. Dias on 08-24-2022 Hematocrit (Bld) [Volume fraction] 50.5 % 40-54 [facility] Laboratory - Chemistry and C hemistry - challengeOrdered By: Dr. Dias on 08-24-2022 ALP [Catalytic activity/Vol] 90 U/L 45-117 [facility] ALT [Catalytic activity/Vol] 37 U/L 16-61 [facility] CO2 [Moles/Vol] 28.0 mmol/L 21.0-32.0 [facility] Globulin (S) [Mass/Vol] 3.5 g/dL 2.2-4.2 [facility] Urea nitrogen/Creatinine [Mass ratio] 30.9 mg/mg 10-20 [facility] Laboratory - Hematology and Cell countsOrdered By: Dr. Dias on 08-24-2022 Erythrocyte distribution width (RBC) [Entitic vol] 42.3 fL 35.1-43.9 [facility] Erythrocyte distribution width (RBC) [Ratio] 13.2 % 11.6-14.6 [facility] Immature granulocytes/100 WBC (Bld) 0.200 % 0.0-0.9 [facility] Comment on above: IG% - Immature Granu locytes (promyelocytes, myelocytes and metamyelocytes) > 1% indicates that a LEFT SHIFT is Present. MCH (RBC) [Entitic mass] 28.6 pg 27.0-32.0 [facility] Nucleated RBC/100 WBC (Bld) [Ratio] 0 % 0-5 [facility] MCHC Auto (RBC) [Mass/Vol]Or dered By: Dr. Dias on 08-24-2022 MCHC (RBC) [Mass/Vol] 32.9 g/dL 32-36 [facility] No Panel InformationOrdered By: Dr. Dias on 08-24-2022 Estimated GFR (MDRD) Amer 114 mL/min >60 [facility] Comment on above: GFR Calc Estimated GFR (MDRD) Non-Af Amer 95 mL/min >60 [facility] Comment on above: Non- GFR Calc Platelets bldOrdered By: Dr. Dias on 08-24-2022 Platelets (Bld) [#/Vol] 246 10*3/uL 150-450 [facility] Serum or plasma albumin anel urement (mass/volume)Ordered By: Dr. Dias on 08-24-2022 Albumin [Mass/Vol] 4.0 g/dL 3.2-5.0 [facility] Serum or plasma albumin/glob ulin mass ratioOrdered By: Dr. Dias on 08-24-2022 Albumin/Globulin [Mass ratio] 1.1 {ratio} 0.9-2.4 [facility] Serum or plasma calcium anel urement (mass/volume)Ordered By: Dr. Dias on 08-24-2022 Calcium [Mass/Vol] 9.5 mg/dL 8.5-10.1 [facility] Serum or plasma creatinine m easurement (mass/volume)Ordered By: Dr. Dias on 08-24-2022 Creatinine [Mass/Vol] 0.94 mg/dL 0.70-1.30 [facility] Comment on above: The validity of the calculated GFR & GFRAA in patients over 70 years has not been determined. Clinical correlation is essential. Serum or plasma urea nitroge n measurement (mass/volume)Ordered By: Dr. Dias on 08-24-2022 Urea nitrogen [Mass/Vol] 29 mg/dL 7-18 [facility] Thin prep Papanicolaou smear with manual screeningOrdered By: Dr. Dias on 08-24-2022 Thin prep Papanicolaou smear with manual screening 19 U/L 15-37 [facility] Thin prep Papanicolaou smear with manual screening 10 5-15 [facility] LABORATORYOrdered By: Melinda Coronado on 02-04-2022 Basophil, Absolute 0.0 103/mcL Invalid Interpretation Code 0.0 - 0.2 10^3/mcL AO Workflow SS Basophils/100 WBC (Bld) 0.5 % Invalid Interpretation Code 0.0 - 2.5 % AO Workflow SS Eosinophil, Absolute 0.3 103/mcL Invalid Interpretation Code 0.0 - 0.4 10^3/mcL AO Workflow SS Eosinophils/100 WBC (Bld) 6.4 % Invalid Interpretation Code 0.0 - 7.0 % AO Workflow SS Erythrocyte distribution width (RBC) [Ratio] 18.1 % Invalid Interpretation Code 11.5 - 14.5 % AO Workflow SS Hematocrit (Bld) [Volume fraction] 41.2 % Invalid Interpretation Code 42.0 - 52.0 % AO Workflow SS Hemoglobin (Bld) [Mass/Vol] 13.3 G/dL Invalid Interpretation Code 14.0 - 18.0 G/dL AO Workflow SS Lymphocyte, Absolute 0.9 103/mcL Invalid Interpretation Code 0.8 - 3.9 10^3/mcL AO Workflow SS Lymphocytes/100 WBC (Bld) 17.2 % Invalid Interpretation Code 10.0 - 50.0 % AO Workflow SS MCH (RBC) [Entitic mass] 25.2 pg Invalid Interpretation Code 27.0 - 31.2 pg AO Workflow SS MCHC 32.3 G/dL Invalid Interpretation Code 31.8 - 35.4 G/dL AO Workflow SS MCV (RBC) [Entitic vol] 78.1 fL Invalid Interpretation Code 80.0 - 94.0 fL AO Workflow SS Monocyte, Absolute 0.4 103/mcL Invalid Interpretation Code 0.2 - 1.0 10^3/mcL AO Workflow SS Monocytes/100 WBC (Bld) 8.1 % Invalid Interpretation Code 1.7 - 13.0 % AO Workflow SS Neutrophil, Absolute 3.6 103/mcL Invalid Interpretation Code 2.9 - 6.2 10^3/mcL AO Workflow SS Neutrophils/100 WBC (Bld) 67.8 % Invalid Interpretation Code 37.0 - 80.0 % AO Workflow SS Platelet mean volume (Bld) [Entitic vol] 7.8 fL Invalid Interpretation Code 7.4 - 10.4 fL AO Workflow SS Platelets (Bld) [#/Vol] 242 103/mcL Invalid Interpretation Code 130 - 400 10^3/mcL AO Workflow SS RBC (Bld) [#/Vol] 5.28 106/mcL Invalid Interpretation Code 4.04 - 6.13 10^6/mcL AO Workflow SS WBC 5.2 103/mcL Invalid Interpretation Code 4.6 - 10.8 10^3/mcL AO Workflow SS LABORATORYOrdered By: Branden Bolanos on 02-04-2022 Calcium [Mass/Vol] 9.9 mg/dL Invalid Interpretation Code 8.4 - 10.2 mg/dL AO ADM SS Chloride [Moles/Vol] 102 mmol/L Invalid Interpretation Code 98 - 107 mmol/L AO ADM SS CO2 [Moles/Vol] 28 mmol/L Invalid Interpretation Code 22 - 29 mmol/L AO ADM SS Creatinine [Mass/Vol] 1.11 mg/dL Invalid Interpretation Code 0.70 - 1.30 mg/dL AO ADM SS Electrolyte Balance 9.0 mEq/L Invalid Interpretation Code 4.0 - 15.0 mEq/L AO ADM SS Glucose [Mass/Vol] 104 mg/dL Invalid Interpretation Code 70 - 105 mg/dL AO ADM SS Potassium [Moles/Vol] 4.4 mmol/L Invalid Interpretation Code 3.5 - 5.1 mmol/L AO ADM SS Sodium [Moles/Vol] 139 mmol/L Invalid Interpretation Code 136 - 145 mmol/L AO ADM SS Urea nitrogen [Mass/Vol] 36 mg/dL Invalid Interpretation Code 7 - 18 mg/dL AO ADM SS Urea nitrogen/Creatinine [Mass ratio] 32 ratio Invalid Interpretation Code 7 - 27 ratio AO ADM SS LABORATORYOrdered By: SYSTEM SYSTEM on 02-04-2022 GFR 89 ml/min/1.73sqm Invalid Interpretation Code AO Chemistry S GFR Non- 74 ml/min/1.73sqm Inval id Interpretation Code AO Chemistry S Monocyte distribution width Auto (Bld) [Entitic vol] Not Performed 1 *NA* (02/04/22 9:13 AM) Invalid Interpretation Code 0.00 - 20.00 AO Hematology S Comment on above: Result Comment: MDW testing performed only on adult ER patients between the ages of 18-89 years. LABORATORYOrdered By: Arabella Reddy on 01-21-2022 Albumin BCP dye [Mass/Vol] 3.9 G/dL Invalid Interpretation Code 3.5 - 5.0 G/dL AO ADM SS Calcium [Mass/Vol] 10.5 mg/dL Invalid Interpretation Code 8.4 - 10.2 mg/dL AO ADM SS Chloride [Moles/Vol] 100 mmol/L Invalid Interpretation Code 98 - 107 mmol/L AO ADM SS CO2 [Moles/Vol] 28 mmol/L Invalid Interpretation Code 22 - 29 mmol/L AO ADM SS Creatinine [Mass/Vol] 1.19 mg/dL Invalid Interpretation Code 0.70 - 1.30 mg/dL AO ADM SS Electrolyte Balance 10.0 mEq/L Invalid Interpretation Code 4.0 - 15.0 mEq/L AO ADM SS Glucose [Mass/Vol] 114 mg/dL Invalid Interpretation Code 70 - 105 mg/dL AO ADM SS Phosphate [Mass/Vol] 4.0 mg/dL Invalid Interpretation Code 2.7 - 4.5 mg/dL AO ADM SS Potassium [Moles/Vol] 5.0 mmol/L Invalid Interpretation Code 3.5 - 5.1 mmol/L AO ADM SS Sodium [Moles/Vol] 138 mmol/L Invalid Interpretation Code 136 - 145 mmol/L AO ADM SS Urea nitrogen [Mass/Vol] 47 mg/dL Invalid Interpretation Code 7 - 18 mg/dL AO ADM SS Urea nitrogen/Creatinine [Mass ratio] 39 ratio Invalid Interpretation Code 7 - 27 ratio AO ADM SS LABORATORYOrdered By: SYSTEM SYSTEM on 01-21-2022 GFR 82 ml/min/1.73sqm Invalid Interpretation Code AO Chemistry S GFR Non- 68 ml/min/1.73sqm Inval id Interpretation Code AO Chemistry S LABORATORYOrdered By: Melinda Coronado on 01-19-2022 Albumin BCP dye [Mass/Vol] 4.0 G/dL Invalid Interpretation Code 3.5 - 5.0 G/dL AO ADM SS Albumin/Globulin [Mass ratio] 1.1 {ratio} Invalid Interpretation Code 1.1 - 2.5 ratio AO ADM SS ALP [Catalytic activity/Vol] 113 U/L Invalid Interpretation Code 40 - 135 U/L AO ADM SS ALT With P-5'-P [Catalytic activity/Vol] 32 U/L Invalid Interpretation Code 16 - 63 U/L AO ADM SS AST With P-5'-P [Catalytic activity/Vol] 21 U/L Invalid Interpretation Code 10 - 40 U/L AO ADM SS Basophil, Absolute 0.0 103/mcL Invalid Interpretation Code 0.0 - 0.2 10^3/mcL AO Workflow SS Basophils/100 WBC (Bld) 0.3 % Invalid Interpretation Code 0.0 - 2.5 % AO Workflow SS Bilirubin [Mass/Vol] 0.5 mg/dL Invalid Interpretation Code 0.2 - 1.0 mg/dL AO ADM SS Calcium [Mass/Vol] 10.1 mg/dL Invalid Interpretation Code 8.4 - 10.2 mg/dL AO ADM SS Chloride [Moles/Vol] 102 mmol/L Invalid Interpretation Code 98 - 107 mmol/L AO ADM SS Cholesterol [Mass/Vol] 143 mg/dL Invalid Interpretation Code 0 - 200 mg/dL AO ADM SS Cholesterol in HDL [Mass/Vol] 44 mg/dL Invalid Interpretation Code 40 - 60 mg/dL AO ADM SS Cholesterol in LDL [Mass/Vol] 72 mg/dL Invalid Interpretation Code 0 - 130 mg/dL AO ADM SS CO2 [Moles/Vol] 28 mmol/L Invalid Interpretation Code 22 - 29 mmol/L AO ADM SS Creatinine [Mass/Vol] 2.06 mg/dL Invalid Interpretation Code 0.70 - 1.30 mg/dL AO ADM SS Electrolyte Balance 10.0 mEq/L Invalid Interpretation Code 4.0 - 15.0 mEq/L AO ADM SS Eosinophil, Absolute 0.4 103/mcL Invalid Interpretation Code 0.0 - 0.4 10^3/mcL AO Workflow SS Eosinophils/100 WBC (Bld) 7.2 % Invalid Interpretation Code 0.0 - 7.0 % AO Workflow SS Erythrocyte distribution width (RBC) [Ratio] 16.6 % Invalid Interpretation Code 11.5 - 14.5 % AO Workflow SS Globulin 3.5 G/dL Invalid Interpretation Code AO ADM SS Glucose [Mass/Vol] 114 mg/dL Invalid Interpretation Code 70 - 105 mg/dL AO ADM SS Hematocrit (Bld) [Volume fraction] 38.8 % Invalid Interpretation Code 42.0 - 52.0 % AO Workflow SS Hgb 12.5 G/dL Invalid Interpretation Code 14.0 - 18.0 G/dL AO Workflow SS Lymphocyte, Absolute 0.9 103/mcL Invalid Interpretation Code 0.8 - 3.9 10^3/mcL AO Workflow SS Lymphocytes/100 WBC (Bld) 13.9 % Invalid Interpretation Code 10.0 - 50.0 % AO Workflow SS MCH (RBC) [Entitic mass] 25.1 pg Invalid Interpretation Code 27.0 - 31.2 pg AO Workflow SS MCHC 32.4 G/dL Invalid Interpretation Code 31.8 - 35.4 G/dL AO Workflow SS MCV (RBC) [Entitic vol] 77.5 fL Invalid Interpretation Code 80.0 - 94.0 fL AO Workflow SS Monocyte, Absolute 0.6 103/mcL Invalid Interpretation Code 0.2 - 1.0 10^3/mcL AO Workflow SS Monocytes/100 WBC (Bld) 9.9 % Invalid Interpretation Code 1.7 - 13.0 % AO Workflow SS Neutrophil, Absolute 4.3 103/mcL Invalid Interpretation Code 2.9 - 6.2 10^3/mcL AO Workflow SS Neutrophils/100 WBC (Bld) 68.7 % Invalid Interpretation Code 37.0 - 80.0 % AO Workflow SS Platelet 266 103/mcL Invalid Interpretation Code 130 - 400 10^3/mcL AO Workflow SS Platelet mean volume (Bld) [Entitic vol] 7.5 fL Invalid Interpretation Code 7.4 - 10.4 fL AO Workflow SS Potassium [Moles/Vol] 4.7 mmol/L Invalid Interpretation Code 3.5 - 5.1 mmol/L AO ADM SS Protein [Mass/Vol] 7.5 G/dL Invalid Interpretation Code 6.4 - 8.2 G/dL AO ADM SS RBC 5.00 106/mcL Invalid Interpretation Code 4.04 - 6.13 10^6/mcL AO Workflow SS Sodium [Moles/Vol] 140 mmol/L Invalid Interpretation Code 136 - 145 mmol/L AO ADM SS Triglyceride [Mass/Vol] 133 mg/dL Invalid Interpretation Code 0 - 150 mg/dL AO ADM SS TSH Qn 1.58 m[IU]/L Invalid Interpretation Code 0.36 - 3.74 mcIU/mL AO ADM SS Urea nitrogen [Mass/Vol] 53 mg/dL Invalid Interpretation Code 7 - 18 mg/dL AO ADM SS Urea nitrogen/Creatinine [Mass ratio] 26 ratio Invalid Interpretation Code 7 - 27 ratio AO ADM SS WBC 6.2 103/mcL Invalid Interpretation Code 4.6 - 10.8 10^3/mcL AO Workflow SS LABORATORYOrdered By: Luciana Garza on 01-19-2022 Albumin DL <= 20 mg/L (U) [Mass/Vol] 3739 mcg/dL Invalid Interpretation Code AO ADM SS Albumin/Creatinine DL <= 20 mg/L (U) [Mass ratio] 13 mcg/mg Invalid Interpretation Code 0 - 30 mcg/mg AO ADM SS Creatinine (U) [Mass/Vol] 283.6 mg/dL Invalid Interpretation Code 39.0 - 259.0 mg/dL AO ADM SS HbA1c (Bld) [Mass fraction] 5.8 % Invalid Interpretation Code 4.3 - 6.4 % AO ADM SS LABORATORYOrdered By: SYSTEM SYSTEM on 01-19-2022 GFR 44 ml/min/1.73sqm Invalid Interpretation Code AO Chemistry S GFR Non- 36 ml/min/1.73sqm Inval id Interpretation Code AO Chemistry S Monocyte distribution width Auto (Bld) [Entitic vol] Not Performed 1 *NA* (01/19/22 9:15 AM) Invalid Interpretation Code 0.00 - 20.00 [facility] S Comment on above: Result Comment: MDW testing performed only on adult ER patients between the ages of 18-89 years. Basophil percentageon 2021 Bilirubin [Mass/Vol] 0.40 mg/dL 0.20-1.00 [facility] Work Phone: Comment on above: For patients on eltr ombopag therapy, use of Dim[place] TBIL is not recommended. Chloride [Moles/Vol] 104 mmol/L 98-107 [facility] Work Phone: Glucose [Mass/Vol] 70 mg/dL 74-106 [facility] Work Phone: Potassium [Moles/Vol] 4.2 mmol/L 3.5-5.1 [facility] Work Phone: Protein [Mass/Vol] 6.8 g/dL 6.4-8.2 [facility] Work Phone: Sodium [Moles/Vol] 139 mmol/L 136-145 [facility] Work Phone: WBC (Bld) [#/Vol] 4.0 10*3/uL 4.4-11.0 [facility] Work Phone: Blood erythrocytes count (nu mber/volume)on 12-25-2021 RBC (Bld) [#/Vol] 3.75 10*6/uL 4.6-6.2 [facility] Work Phone: Blood hemoglobin measurement (mass/volume)on 12-25-2021 Hemoglobin (Bld) [Mass/Vol] 9.5 g/dL 13.0-16.5 [facility] Work Phone: [phone] Blood platelet mean volumeon 12-25-2021 Platelet mean volume (Bld) [Entitic vol] 9.5 fL 6.2-12.0 [facility] Work Phone: [phone] Determination of erythrocyte mean corpuscular volume (MCV)on 12-25-2021 MCV (RBC) [Entitic vol] 82.9 fL 80-94 [facility] Work Phone: Direct bilirubinon Bilirubin.direct [Mass/Vol] 0.12 mg/dL 0.00-0.30 [facility] Work Phone: [phone] Erythrocyte sedimentation ra leonel 12-25-2021 ESR (Bld) [Velocity] 95 mm[facility]h 0-[facility]: [phone] Hematocrit Auto (Bld) [Volum e fraction]on 12-25-2021 Hematocrit (Bld) [Volume fraction] 31.1 % 40-54 [facility] Work Phone: [phone] Laboratory - Chemistry and C hemistry - challengeon 12-25-2021 ALP [Catalytic activity/Vol] 91 U/L 45-117 [facility] Work Phone: [phone] ALT [Catalytic activity/Vol] 17 U/L 16-61 [facility] Work Phone: [phone] CO2 [Moles/Vol] 26.0 mmol/L 21.0-32.0 [facility] Work Phone: [phone] Globulin (S) [Mass/Vol] 4.3 g/dL 2.2-4.2 [facility] Work Phone: [phone] Urea nitrogen/Creatinine [Mass ratio] 27.4 mg/mg 10-20 [facility] Work Phone: [phone] Laboratory - Hematology and Cell countson 12-25-2021 Erythrocyte distribution width (RBC) [Entitic vol] 43.5 fL 35.1-43.9 [facility] Work Phone: Erythrocyte distribution width (RBC) [Ratio] 14.4 % 11.6-14.6 [facility] Work Phone: MCH (RBC) [Entitic mass] 25.3 pg 27.0-32.0 [facility] Work Phone: [phone] MCHC Auto (RBC) [Mass/Vol]on 12-25-2021 MCHC (RBC) [Mass/Vol] 30.5 g/dL 32-36 [facility] Work Phone: No Panel Informationon 12-25 Estimated GFR (MDRD) Amer 131 mL/min >60 [facility] Work Phone: Comment on above: GFR Calc Estimated GFR (MDRD) Non-Af Amer 108 mL/min >60 [facility] Work Phone: Comment on above: Non- GFR Calc Platelets bldon 12-25-2021 Platelets (Bld) [#/Vol] 331 10*3/uL 150-450 [facility] Work Phone: Serum or plasma albumin anel urement (mass/volume)on 12-25-2021 Albumin [Mass/Vol] 2.5 g/dL 3.2-5.0 [facility] Work Phone: [phone] Serum or plasma calcium anel urement (mass/volume)on 12-25-2021 Calcium [Mass/Vol] 9.2 mg/dL 8.5-10.1 [facility] Work Phone: [phone] Serum or plasma creatinine m easurement (mass/volume)on 12-25-2021 Creatinine [Mass/Vol] 0.84 mg/dL 0.70-1.30 [facility] Work Phone: Comment on above: The validity of the calculated GFR & GFRAA in patients over 70 years has not been determined. Clinical correlation is essential. Serum or plasma urea nitroge n measurement (mass/volume)on 12-25-2021 Urea nitrogen [Mass/Vol] 23 mg/dL 7-18 [facility] Work Phone: [phone] Thin prep Papanicolaou smear with manual screeningon 12-25-2021 Thin prep Papanicolaou smear with manual screening 15 U/L 15-37 [facility] Work Phone: [phone] Thin prep Papanicolaou smear with manual screening 9 5-15 [facility] Work Phone: [phone] Vancomycin troughon 12-26-19 Vancomycin trough [Mass/Vol] 17.0 ug/mL 5.0-15.0 [facility] Work Phone: [phone] Comment on above: VANCOMYCIN STANDARED DRUG THERAPY TROUGH LEVEL: 5.0 - 15.0 mg/L VANCOMYCIN HIGH INTENSITY THERAPY TROUGH LEVEL: 15.0 - 20.0 mg/L High Intensity therapy recommended for serious lifethreatening infections include:- Hwhmsidurt-Nyspjxwdzwez-Mkydoijeu (Ventilator/Healtcare Associated)-Sepsis PLEASE CONTACT PHARMACY SERVICES (#[id number]) FOR INTERPRETATIONOF RESULTS. Basophil percentageon 2021 Bilirubin [Mass/Vol] 0.50 mg/dL 0.20-1.00 [facility] Work Phone: Comment on above: For patients on eltr ombopag therapy, use of [place] TBIL is not recommended. Chloride [Moles/Vol] 103 mmol/L 98-107 [facility] Work Phone: [phone] Glucose [Mass/Vol] 92 mg/dL 74-106 [facility] Work Phone: [phone] Potassium [Moles/Vol] 5.2 mmol/L 3.5-5.1 [facility] Work Phone: [phone] Comment on above: Moderate Hemolysis, Result may be falsely increased. Protein [Mass/Vol] 6.9 g/dL 6.4-8.2 [facility] Work Phone: [phone] Sodium [Moles/Vol] 140 mmol/L 136-145 [facility] Work Phone: [phone] WBC (Bld) [#/Vol] 4.4 10*3/uL 4.4-11.0 [facility]: Blood erythrocytes count (nu mber/volume)on 12-11-2021 RBC (Bld) [#/Vol] 3.70 10*6/uL 4.6-6.2 [facility] Work Phone: Blood hemoglobin measurement (mass/volume)on 12-11-2021 Hemoglobin (Bld) [Mass/Vol] 9.9 g/dL 13.0-16.5 [facility] Work Phone: [phone] Blood platelet mean volumeon 12-11-2021 Platelet mean volume (Bld) [Entitic vol] 9.7 fL 6.2-12.0 [facility] Work Phone: Determination of erythrocyte mean corpuscular volume (MCV)on 12-11-2021 MCV (RBC) [Entitic vol] 85.1 fL 80-94 [facility] Work Phone: Direct bilirubinon Bilirubin.direct [Mass/Vol] 0.07 mg/dL 0.00-0.30 [facility] Work Phone: Erythrocyte sedimentation ra leonel 12-11-2021 ESR (Bld) [Velocity] 70 mm/h 0-20 [facility] Work Phone: [phone] Hematocrit Auto (Bld) [Volum e fraction]on 12-11-2021 Hematocrit (Bld) [Volume fraction] 31.5 % 40-54 [facility] Work Phone: [phone] Laboratory - Chemistry and C hemistry - challengeon 12-11-2021 ALP [Catalytic activity/Vol] 82 U/L 45-117 [facility] Work Phone: ALT [Catalytic activity/Vol] 22 U/L 16-61 [facility] Work Phone: [phone] CO2 [Moles/Vol] 29.0 mmol/L 21.0-32.0 [facility] Work Phone: [phone] Globulin (S) [Mass/Vol] 4.5 g/dL 2.2-4.2 [facility] Work Phone: Urea nitrogen/Creatinine [Mass ratio] 30.1 mg/mg 10-20 [facility] Work Phone: [phone] Laboratory - Hematology and Cell countson 12-11-2021 Erythrocyte distribution width (RBC) [Entitic vol] 42.5 fL 35.1-43.9 [facility] Work Phone: [phone] Erythrocyte distribution width (RBC) [Ratio] 13.6 % 11.6-14.6 [facility] Work Phone: MCH (RBC) [Entitic mass] 26.8 pg 27.0-32.0 [facility] Work Phone: [phone] MCHC Auto (RBC) [Mass/Vol]on 12-11-2021 MCHC (RBC) [Mass/Vol] 31.4 g/dL 32-36 [facility] Work Phone: No Panel Informationon 12-11 Estimated GFR (MDRD) Amer 145 mL/min >60 [facility] Work Phone: Comment on above: GFR Calc Estimated GFR (MDRD) Non-Af Amer 120 mL/min >60 [facility] Work Phone: Comment on above: Non- GFR Calc Platelets bldon 12-11-2021 Platelets (Bld) [#/Vol] 376 10*3/uL 150-450 [facility] Work Phone: [phone] Serum or plasma albumin anel urement (mass/volume)on 12-11-2021 Albumin [Mass/Vol] 2.4 g/dL 3.2-5.0 [facility] Work Phone: [phone] Serum or plasma calcium anel urement (mass/volume)on 12-11-2021 Calcium [Mass/Vol] 9.1 mg/dL 8.5-10.1 [facility] Work Phone: [phone] Serum or plasma creatinine m easurement (mass/volume)on 12-11-2021 Creatinine [Mass/Vol] 0.76 mg/dL 0.70-1.30 [facility] Work Phone: Comment on above: The validity of the calculated GFR & GFRAA in patients over 70 years has not been determined. Clinical correlation is essential. Serum or plasma urea nitroge n measurement (mass/volume)on 12-11-2021 Urea nitrogen [Mass/Vol] 23 mg/dL 7-18 [facility] Work Phone: Thin prep Papanicolaou smear with manual screeningon 12-11-2021 Thin prep Papanicolaou smear with manual screening 32 U/L 15-37 [facility] Work Phone: Comment on above: Moderate Hemolysis, Result may be falsely increased. Thin prep Papanicolaou smear with manual screening 8 5-15 [facility] Work Phone: Vancomycin troughon 12-12-19 22 Vancomycin trough [Mass/Vol] 17.4 ug/mL 5.0-15.0 [facility] Work Phone: Comment on above: VANCOMYCIN STANDARED DRUG THERAPY TROUGH LEVEL: 5.0 - 15.0 mg/L VANCOMYCIN HIGH INTENSITY THERAPY TROUGH LEVEL: 15.0 - 20.0 mg/L High Intensity therapy recommended for serious lifethreatening infections include:- Qfvxdstbby-Sxbobjuktjnn-Jnnrtkazs (Ventilator/Healtcare Associated)-Sepsis PLEASE CONTACT PHARMACY SERVICES (#[id number]) FOR INTERPRETATIONOF RESULTS. Basophil percentageon 2021 Bilirubin [Mass/Vol] 0.40 mg/dL 0.20-1.00 [facility] Work Phone: Comment on above: For patients on eltr ombopag therapy, use of [place] TBIL is not recommended. Chloride [Moles/Vol] 104 mmol/L 98-107 [facility] Work Phone: Glucose [Mass/Vol] 82 mg/dL 74-106 [facility] Work Phone: [phone] Potassium [Moles/Vol] 4.5 mmol/L 3.5-5.1 [facility] Work Phone: Protein [Mass/Vol] 6.5 g/dL 6.4-8.2 [facility] Work Phone: [phone] Sodium [Moles/Vol] 141 mmol/L 136-145 [facility] Work Phone: [phone] WBC (Bld) [#/Vol] 5.0 10*3/uL 4.4-11.0 [facility] Work Phone: [phone] Blood erythrocytes count (nu mber/volume)on 12-04-2021 RBC (Bld) [#/Vol] 3.23 10*6/uL 4.6-6.2 [facility]: [phone] Blood hemoglobin measurement (mass/volume)on 12-04-2021 Hemoglobin (Bld) [Mass/Vol] 8.8 g/dL 13.0-16.5 [facility] Work Phone: [phone] Blood platelet mean volumeon 12-04-2021 Platelet mean volume (Bld) [Entitic vol] 9.2 fL 6.2-12.0 [facility] Work Phone: [phone] Determination of erythrocyte mean corpuscular volume (MCV)on 12-04-2021 MCV (RBC) [Entitic vol] 89.2 fL 80-94 [facility] Work Phone: [phone] Direct bilirubinon Bilirubin.direct [Mass/Vol] 0.13 mg/dL 0.00-0.30 [facility] Work Phone: [phone] Erythrocyte sedimentation ra leonel 12-04-2021 ESR (Bld) [Velocity] 53 mm[facility]h 0-[facility]: [phone] Hematocrit Auto (Bld) [Volum e fraction]on 12-04-2021 Hematocrit (Bld) [Volume fraction] 28.8 % 40-54 [facility] Work Phone: [phone] Laboratory - Chemistry and C hemistry - challengeon 12-04-2021 ALP [Catalytic activity/Vol] 68 U/L 45-117 [facility] Work Phone: [phone] ALT [Catalytic activity/Vol] 21 U/L 16-61 [facility] Work Phone: [phone] CO2 [Moles/Vol] 28.0 mmol/L 21.0-32.0 [facility] Work Phone: [phone] Globulin (S) [Mass/Vol] 4.2 g/dL 2.2-4.2 [facility] Work Phone: [phone] Urea nitrogen/Creatinine [Mass ratio] 22.9 mg/mg 10-20 [facility] Work Phone: [phone] Laboratory - Hematology and Cell countson 12-04-2021 Erythrocyte distribution width (RBC) [Entitic vol] 43.7 fL 35.1-43.9 [facility] Work Phone: [phone] Erythrocyte distribution width (RBC) [Ratio] 13.3 % 11.6-14.6 [facility] Work Phone: [phone] MCH (RBC) [Entitic mass] 27.2 pg 27.0-32.0 [facility] Work Phone: [phone] MCHC Auto (RBC) [Mass/Vol]on 12-04-2021 MCHC (RBC) [Mass/Vol] 30.6 g/dL 32-36 [facility] Work Phone: No Panel Informationon 12-04 Estimated GFR (MDRD) Amer 118 mL/min >60 [facility] Work Phone: [phone] Comment on above: GFR Calc Estimated GFR (MDRD) Non-Af Amer 98 mL/min >60 [facility] Work Phone: [phone] Comment on above: Non- GFR Calc Platelets bldon 12-04-2021 Platelets (Bld) [#/Vol] 374 10*3/uL 150-450 [facility] Work Phone: [phone] Serum or plasma albumin anel urement (mass/volume)on 12-04-2021 Albumin [Mass/Vol] 2.3 g/dL 3.2-5.0 [facility] Work Phone: [phone] Serum or plasma calcium anel urement (mass/volume)on 12-04-2021 Calcium [Mass/Vol] 8.9 mg/dL 8.5-10.1 [facility] Work Phone: Serum or plasma creatinine m easurement (mass/volume)on 12-04-2021 Creatinine [Mass/Vol] 0.92 mg/dL 0.70-1.30 [facility] Work Phone: Comment on above: The validity of the calculated GFR & GFRAA in patients over 70 years has not been determined. Clinical correlation is essential. Serum or plasma urea nitroge n measurement (mass/volume)on 12-04-2021 Urea nitrogen [Mass/Vol] 21 mg/dL 7-18 [facility] Work Phone: [phone] Thin prep Papanicolaou smear with manual screeningon 12-04-2021 Thin prep Papanicolaou smear with manual screening 17 U/L 15-37 [facility] Work Phone: Thin prep Papanicolaou smear with manual screening 9 5-15 [facility] Work Phone: Vancomycin troughon 12-05-19 Vancomycin trough [Mass/Vol] 16.1 ug/mL 5.0-15.0 [facility] Work Phone: Comment on above: VANCOMYCIN STANDARED DRUG THERAPY TROUGH LEVEL: 5.0 - 15.0 mg/L VANCOMYCIN HIGH INTENSITY THERAPY TROUGH LEVEL: 15.0 - 20.0 mg/L High Intensity therapy recommended for serious lifethreatening infections include:- Wtktlszrlt-Grcykhwllktd-Vhghnnkku (Ventilator/Healtcare Associated)-Sepsis PLEASE CONTACT PHARMACY SERVICES (#[id number]) FOR INTERPRETATIONOF RESULTS. Basophil percentageon 2021 Bilirubin [Mass/Vol] 0.40 mg/dL 0.20-1.00 [facility] Work Phone: Comment on above: For patients on eltr ombopag therapy, use of [place] TBIL is not recommended. Chloride [Moles/Vol] 103 mmol/L 98-107 [facility] Work Phone: [phone] Glucose [Mass/Vol] 81 mg/dL 74-106 [facility] Work Phone: [phone] Potassium [Moles/Vol] 4.8 mmol/L 3.5-5.1 [facility] Work Phone: Protein [Mass/Vol] 6.9 g/dL 6.4-8.2 [facility] Work Phone: [phone] Sodium [Moles/Vol] 137 mmol/L 136-145 [facility] Work Phone: [phone] WBC (Bld) [#/Vol] 7.2 10*3/uL 4.4-11.0 [facility] Work Phone: [phone] Blood erythrocytes count (nu mber/volume)on 11-27-2021 RBC (Bld) [#/Vol] 3.43 10*6/uL 4.6-6.2 [facility] Work [facility]: [phone] Blood hemoglobin measurement (mass/volume)on 11-27-2021 Hemoglobin (Bld) [Mass/Vol] 9.6 g/dL 13.0-16.5 [facility] Work Phone: [phone] Blood platelet mean volumeon 11-27-2021 Platelet mean volume (Bld) [Entitic vol] 9.2 fL 6.2-12.0 [facility] Work Phone: [phone] Determination of erythrocyte mean corpuscular volume (MCV)on 11-27-2021 MCV (RBC) [Entitic vol] 90.4 fL 80-94 [facility] Work Phone: [phone] Direct bilirubinon Bilirubin.direct [Mass/Vol] 0.15 mg/dL 0.00-0.30 [facility] Work Phone: [phone] Erythrocyte sedimentation ra leonel 11-27-2021 ESR (Bld) [Velocity] 61 mm[facility]h 0-20 [facility]: [phone] Hematocrit Auto (Bld) [Volum e fraction]on 11-27-2021 Hematocrit (Bld) [Volume fraction] 31.0 % 40-54 [facility] Work Phone: [phone] Laboratory - Chemistry and C hemistry - challengeon 11-27-2021 ALP [Catalytic activity/Vol] 72 U/L 45-117 [facility] Work Phone: ALT [Catalytic activity/Vol] 28 U/L 16-61 [facility] Work Phone: CO2 [Moles/Vol] 28.0 mmol/L 21.0-32.0 [facility] Work Phone: [phone] Globulin (S) [Mass/Vol] 4.7 g/dL 2.2-4.2 [facility] Work Phone: [phone] Urea nitrogen/Creatinine [Mass ratio] 19.9 mg/mg 10-20 [facility] Work Phone: Laboratory - Hematology and Cell countson 11-27-2021 Erythrocyte distribution width (RBC) [Entitic vol] 44.1 fL 35.1-43.9 [facility] Work Phone: [phone] Erythrocyte distribution width (RBC) [Ratio] 13.4 % 11.6-14.6 [facility] Work Phone: MCH (RBC) [Entitic mass] 28.0 pg 27.0-32.0 [facility] Work Phone: [phone] MCHC Auto (RBC) [Mass/Vol]on 11-27-2021 MCHC (RBC) [Mass/Vol] 31.0 g/dL 32-36 [facility] Work Phone: No Panel Informationon 11-27 Estimated GFR (MDRD) Amer 128 mL/min >60 [facility] Work Phone: Comment on above: GFR Calc Estimated GFR (MDRD) Non-Af Amer 105 mL/min >60 [facility] Work Phone: Comment on above: Non- GFR Calc Platelets bldon 11-27-2021 Platelets (Bld) [#/Vol] 485 10*3/uL 150-450 [facility] Work Phone: Serum or plasma albumin anel urement (mass/volume)on 11-27-2021 Albumin [Mass/Vol] 2.2 g/dL 3.2-5.0 [facility] Work Phone: Serum or plasma calcium anel urement (mass/volume)on 11-27-2021 Calcium [Mass/Vol] 8.9 mg/dL 8.5-10.1 [facility] Work Phone: Serum or plasma creatinine m easurement (mass/volume)on 11-27-2021 Creatinine [Mass/Vol] 0.86 mg/dL 0.70-1.30 [facility] Work Phone: Comment on above: The validity of the calculated GFR & GFRAA in patients over 70 years has not been determined. Clinical correlation is essential. Serum or plasma urea nitroge n measurement (mass/volume)on 11-27-2021 Urea nitrogen [Mass/Vol] 17 mg/dL 7-18 [facility] Work Phone: Thin prep Papanicolaou smear with manual screeningon 11-27-2021 Thin prep Papanicolaou smear with manual screening 25 U/L 15-37 [facility] Work Phone: Thin prep Papanicolaou smear with manual screening 6 5-15 [facility] Work Phone: Vancomycin troughon 11-28-19 Vancomycin trough [Mass/Vol] 13.6 ug/mL 5.0-15.0 [facility] Work Phone: Comment on above: VANCOMYCIN STANDARED DRUG THERAPY TROUGH LEVEL: 5.0 - 15.0 mg/L VANCOMYCIN HIGH INTENSITY THERAPY TROUGH LEVEL: 15.0 - 20.0 mg/L High Intensity therapy recommended for serious lifethreatening infections include:- Lptjgokybg-Ekjfnmzgcbed-Rfsbigmxs (Ventilator/Healtcare Associated)-Sepsis PLEASE CONTACT PHARMACY SERVICES (#[id number]) FOR INTERPRETATIONOF RESULTS. Glucose Glucometer (BldC) [M ass/Vol]on 11-21-2021 Glucose [Mass/Vol] 274 mg/dL 74-106 [facility] Work Phone: Comment on above: MANAGEMENT OF PATIEN T CARE PER NURSING PROTOCOL Serum or plasma C reactive p rotein measurement (mass/volume)on 11-21-2021 CRP [Mass/Vol] 130.00 mg/L 0.0-3.0 [facility] Work Phone: Comment on above: C-Reactive Protein ( CRP) provides useful information for thediagnosis, therapy and monitoring of inflammatory processesand associated diseases. For the evaluation of Relative Riskfor Cardiovascular Disease, a High Sensitivity CRP (HSCRP)should be ordered. Absolute lymphocyte counton 11-20-2021 Lymphocytes Auto (Unsp spec) [#/Vol] 0.68 10*3/uL 0.83-4.51 [facility] Work Phone: Basophil percentageon 2021 Basophils/100 WBC (Bld) 0.2 % 0-1 [facility] Work Phone: [phone] Chloride [Moles/Vol] 109 mmol/L 98-107 [facility] Work Phone: [phone] Eosinophils/100 WBC (Bld) 2.3 % 0-5 [facility] Work Phone: [phone] Glucose [Mass/Vol] 202 mg/dL 74-106 [facility] Work Phone: Comment on above: Glucose result great er than or equal to 200 mg/dLsuggests DIABETES MELLITUS per A.D.A. criteria. Neutrophils (Bld) [#/Vol] 7.1 10*3/uL 2.0-7.7 [facility] Work Phone: Neutrophils/100 WBC (Bld) 78.6 % 47-70 [facility] Work Phone: [phone] Potassium [Moles/Vol] 4.3 mmol/L 3.5-5.1 [facility] Work Phone: [phone] Sodium [Moles/Vol] 138 mmol/L 136-145 [facility] Work Phone: WBC (Bld) [#/Vol] 9.0 10*3/uL 4.4-11.0 [facility] Work Phone: Blood erythrocytes count (nu mber/volume)on 11-20-2021 RBC (Bld) [#/Vol] 3.24 10*6/uL 4.6-6.2 [facility] Work [facility]: Blood hemoglobin measurement (mass/volume)on 11-20-2021 Hemoglobin (Bld) [Mass/Vol] 9.2 g/dL 13.0-16.5 [facility] Work Phone: Blood lymphocytes/100 leukoc yteson 11-20-2021 Lymphocytes/100 WBC (Bld) 7.6 % 19-41 [facility] Work Phone: [phone] Blood monocytes/100 leukocyt eson 11-20-2021 Monocytes/100 WBC (Bld) 6.6 % 0-10 [facility] Work Phone: Blood platelet mean volumeon 11-20-2021 Platelet mean volume (Bld) [Entitic vol] 9.3 fL 6.2-12.0 [facility] Work Phone: Determination of erythrocyte mean corpuscular volume (MCV)on 11-20-2021 MCV (RBC) [Entitic vol] 85.8 fL 80-94 [facility] Work Phone: Hematocrit Auto (Bld) [Volum e fraction]on 11-20-2021 Hematocrit (Bld) [Volume fraction] 27.8 % 40-54 [facility] Work Phone: Laboratory - Chemistry and C hemistry - challengeon 11-20-2021 CO2 [Moles/Vol] 27.0 mmol/L 21.0-32.0 [facility] Work Phone: Urea nitrogen/Creatinine [Mass ratio] 29.4 mg/mg 10-20 [facility] Work Phone: Laboratory - Hematology and Cell countson 11-20-2021 Erythrocyte distribution width (RBC) [Entitic vol] 43.6 fL 35.1-43.9 [facility] Work Phone: Erythrocyte distribution width (RBC) [Ratio] 13.8 % 11.6-14.6 [facility] Work Phone: Immature granulocytes/100 WBC (Bld) 4.700 % 0.0-0.9 [facility] Work Phone: Comment on above: IG% - Immature Granu locytes (promyelocytes, myelocytes and metamyelocytes) > 1% indicates that a LEFT SHIFT is Present. MCH (RBC) [Entitic mass] 28.4 pg 27.0-32.0 [facility] Work Phone: Nucleated RBC/100 WBC (Bld) [Ratio] 0 % 0-5 [facility] Work Phone: [phone] MCHC Auto (RBC) [Mass/Vol]on 11-20-2021 MCHC (RBC) [Mass/Vol] 33.1 g/dL 32-36 [facility] Work Phone: No Panel Informationon 11-20 Estimated Creatinine Clearance Calc 140.84 ml/min [facility] Work Phone: Estimated GFR (MDRD) Amer 149 mL/min >60 [facility] Work Phone: Comment on above: GFR Calc Estimated GFR (MDRD) Non-Af Amer 123 mL/min >60 [facility] Work Phone: Comment on above: Non- GFR Calc Platelets bldon 11-20-2021 Platelets (Bld) [#/Vol] 351 10*3/uL 150-450 [facility] Work Phone: Serum or plasma calcium anel urement (mass/volume)on 11-20-2021 Calcium [Mass/Vol] 8.4 mg/dL 8.5-10.1 [facility] Work Phone: [phone] Serum or plasma creatinine m easurement (mass/volume)on 11-20-2021 Creatinine [Mass/Vol] 0.75 mg/dL 0.70-1.30 [facility] Work Phone: Comment on above: The validity of the calculated GFR & GFRAA in patients over 70 years has not been determined. Clinical correlation is essential. Serum or plasma urea nitroge n measurement (mass/volume)on 11-20-2021 Urea nitrogen [Mass/Vol] 22 mg/dL 7-18 [facility] Work Phone: Thin prep Papanicolaou smear with manual screeningon 11-20-2021 Thin prep Papanicolaou smear with manual screening 2 5-15 [facility] [facility] Work Phone: Vancomycin troughon 11-21-19 Vancomycin trough [Mass/Vol] 14.9 ug/mL 5.0-15.0 [facility] Work Phone: Comment on above: VANCOMYCIN STANDARED DRUG THERAPY TROUGH LEVEL: 5.0 - 15.0 mg/L VANCOMYCIN HIGH INTENSITY THERAPY TROUGH LEVEL: 15.0 - 20.0 mg/L High Intensity therapy recommended for serious lifethreatening infections include:- Dqiifgapez-Hsegjqjpubkf-Pczvumbrw (Ventilator/Healtcare Associated)-Sepsis PLEASE CONTACT PHARMACY SERVICES (#[id number]) FOR INTERPRETATIONOF RESULTS. Bacteria identified Cx Nom ( Wound)on 11-17-2021 Wound Culture Enterococcus faecalis [facility] Work Phone: Basophil percentageon 2021 Bilirubin [Mass/Vol] 0.70 mg/dL 0.20-1.00 [facility] Work Phone: Comment on above: For patients on eltr ombopag therapy, use of Dimension [place] TBIL is not recommended. Protein [Mass/Vol] 5.7 g/dL 6.4-8.2 [facility] Work Phone: Gram stain for investigation of transfusion reactionon 11-17-2021 Microscopic observation Gram stain Nom (Unsp spec) [facility] Work Phone: Laboratory - Chemistry and C hemistry - challengeon 11-17-2021 ALP [Catalytic activity/Vol] 70 U/L 45-117 [facility] Work Phone: ALT [Catalytic activity/Vol] 49 U/L 16-61 [facility] Work Phone: Globulin (S) [Mass/Vol] 3.9 g/dL 2.2-4.2 [facility] Work Phone: No Panel Informationon 11-17 Methicillin-Resist S.aureus DNA PCR Negative Negative [facility] Work Phone: Serum or plasma albumin anel urement (mass/volume)on 11-17-2021 Albumin [Mass/Vol] 1.8 g/dL 3.2-5.0 [facility] Work Phone: Serum or plasma albumin/glob ulin mass ratioon 11-17-2021 Albumin/Globulin [Mass ratio] 0.5 {ratio} 0.9-2.4 [facility] Work Phone: Staphylococcus aureus DNA de tection by probe and target amplification methodon 11-17-2021 S. aureus DNA JAMMIE+probe Ql (Unsp spec) Negative Negative [facility] Work Phone: Thin prep Papanicolaou smear with manual screeningon 11-17-2021 Thin prep Papanicolaou smear with manual screening 51 U/L 15-37 [facility] Work Phone: Whole blood hemoglobin A1c/t otal hemoglobin ratio (mass fraction)on 11-17-2021 HbA1c (Bld) [Mass fraction] 6.6 % 3.8-5.6 [facility] Work Phone: Comment on above: Normal < 5.7 % Predi abetic 5.7 - 6.4 % Diabetic >or= 6.5 % Please note range changes. Blood manual differential co mment interpretation (narrative result)on 11-16-2021 Manual differential comment Geraldo (Bld) [Interp] SCANNED [facility] Work Phone: Laboratory - Microbiology an d Antimicrobial susceptibilityon 11-16-2021 Bacteria identified Cx Nom (Bld) No growth in 5 days. [facility] Work Phone: Erythrocyte sedimentation ra leonel 11-15-2021 ESR (Bld) [Velocity] 46 mm/h 0-20 [facility] Work Phone: Absolute lymphocyte counton 11-14-2021 Lymphocytes Auto (Unsp spec) [#/Vol] 0.32 10*3/uL 0.83-4.51 [facility] Work Phone: Basophil percentageon 04-09- 2022 Lactate [Moles/Vol] 1.4 mmol/L 0.4-2.0 [facility] Work Phone: Basophil percentage 0-5 SEEN /hpf 0-5 [facility] Work Phone: Basophils/100 WBC (Bld) 0.2 % 0-1 [facility] Work Phone: Bilirubin [Mass/Vol] 0.90 mg/dL 0.20-1.00 [facility] Work Phone: Comment on above: For patients on eltr ombopag therapy, use of Dimension [place] TBIL is not recommended. Chloride [Moles/Vol] 98 mmol/L 98-107 [facility] Work Phone: Eosinophils/100 WBC (Bld) 0.0 % 0-5 [facility] Work Phone: Glucose [Mass/Vol] 245 mg/dL 74-106 [facility] Work Phone: Comment on above: Glucose result great er than or equal to 200 mg/dLsuggests DIABETES MELLITUS per A.D.A. criteria. Lactate [Moles/Vol] 2.9 mmol/L 0.4-2.0 [facility] Work Phone: Comment on above: Critical Result(s) Crystal BROWN RN at: 16:00:24 11/14/2021 by: Belinda Norris. Results read back by same. Neutrophils (Bld) [#/Vol] 10.8 10*3/uL 2.0-7.7 [facility] Work Phone: Neutrophils/100 WBC (Bld) 93.0 % 47-70 [facility] Work Phone: Potassium [Moles/Vol] 4.4 mmol/L 3.5-5.1 [facility] Work Phone: Protein [Mass/Vol] 7.6 g/dL 6.4-8.2 [facility] Work Phone: Sodium [Moles/Vol] 130 mmol/L 136-145 [facility] Work Phone: WBC (Bld) [#/Vol] 11.7 10*3/uL 4.4-11.0 [facility] Work Phone: Bilirubin Test strip Ql (U)o n 11-14-2021 Bilirubin Ql (U) Negative Negative [facility] Work Phone: Blood erythrocytes count (nu mber/volume)on 11-14-2021 RBC (Bld) [#/Vol] 4.89 10*6/uL 4.6-6.2 [facility] Work Phone: Blood hemoglobin measurement (mass/volume)on 11-14-2021 Hemoglobin (Bld) [Mass/Vol] 13.9 g/dL 13.0-16.5 [facility] Work Phone: Blood lymphocytes/100 leukoc yteson 11-14-2021 Lymphocytes/100 WBC (Bld) 2.7 % 19-41 [facility] Work Phone: Blood manual differential co mment interpretation (narrative result)on 11-14-2021 Manual differential comment Geraldo (Bld) [Interp] SCANNED [facility] Work Phone: Blood monocytes/100 leukocyt eson 11-14-2021 Monocytes/100 WBC (Bld) 3.3 % 0-10 [facility] Work Phone: Blood platelet mean volumeon 11-14-2021 Platelet mean volume (Bld) [Entitic vol] 10.3 fL 6.2-12.0 [facility] Work Phone: Culture, urineon 11-14-2021 Bacteria identified Cx Nom (U) Positive [facility] Work Phone: Determination of erythrocyte mean corpuscular volume (MCV)on 11-14-2021 MCV (RBC) [Entitic vol] 83.0 fL 80-94 [facility] Work Phone: Hematocrit Auto (Bld) [Volum e fraction]on 11-14-2021 Hematocrit (Bld) [Volume fraction] 40.6 % 40-54 [facility] Work Phone: Hyaline casts LM.LPF (Urine sed) [#/Area]on 11-14-2021 Hyaline casts (Urine sed) [#/Area] 0 /[LPF] 0-5 [facility] Work Phone: INR in Blood by Coagulation assayon 11-14-2021 INR Coag (Bld) [Relative time] 1.3 {INR} [facility] Work Phone: Ketones Test strip Ql (U)on 11-14-2021 Ketones Ql (U) 5 mg/dl Negative [facility] Work Phone: Laboratory - Chemistry and C hemistry - challengeon 11-14-2021 ALP [Catalytic activity/Vol] 85 U/L 45-117 [facility] Work Phone: ALT [Catalytic activity/Vol] 37 U/L 16-61 [facility] Work Phone: [phone] CO2 [Moles/Vol] 23.0 mmol/L 21.0-32.0 [facility] Work Phone: Globulin (S) [Mass/Vol] 4.8 g/dL 2.2-4.2 [facility] Work Phone: Urea nitrogen/Creatinine [Mass ratio] 23.2 mg/mg 10-20 [facility] Work Phone: Laboratory - Coagulationon 0 11-14-2021 aPTT Coag (Bld) [Time] 32.0 s 24.1-36.2 [facility] Work Phone: PT Coag (PPP) [Time] 15.1 s 11.7-14.[address] [facility] Work Phone: Laboratory - Hematology and Cell countson 11-14-2021 Erythrocyte distribution width (RBC) [Entitic vol] 41.0 fL 35.1-43.9 [facility] Work Phone: Erythrocyte distribution width (RBC) [Ratio] 13.5 % 11.6-14.6 [facility] Work Phone: Immature granulocytes/100 WBC (Bld) 0.800 % 0.0-0.9 [facility] Work Phone: [phone] Comment on above: IG% - Immature Granu locytes (promyelocytes, myelocytes and metamyelocytes) > 1% indicates that a LEFT SHIFT is Present. MCH (RBC) [Entitic mass] 28.4 pg 27.0-32.0 [facility] Work Phone: [phone] Nucleated RBC/100 WBC (Bld) [Ratio] 0 % 0-5 [facility] Work Phone: [phone] MCHC Auto (RBC) [Mass/Vol]on 11-14-2021 MCHC (RBC) [Mass/Vol] 34.2 g/dL 32-36 [facility] Work Phone: [phone] Mucus LM Ql (Urine sed)on Mucus Ql (Urine sed) 0 SEEN /hpf [facility] Work Phone: [phone] Nitrite Test strip Ql (U)on 11-14-2021 Nitrite Ql (U) Negative Negative [facility] Work Phone: No Panel Informationon 11-14 Estimated Creatinine Clearance Calc 33.53 ml/min [facility] Work Phone: Estimated GFR (MDRD) Amer 28 mL/min >60 [facility] Work Phone: [phone] Comment on above: GFR Calc Estimated GFR (MDRD) Non-Af Amer 23 mL/min >60 [facility] Work Phone: [phone] Comment on above: Non- GFR Calc Platelets bldon 11-14-2021 Platelets (Bld) [#/Vol] 149 10*3/uL 150-450 [facility] Work Phone: [phone] Protein Test strip Ql (U)on 11-14-2021 Protein Ql (U) 30 mg/dl Negative [facility] Work Phone: [phone] Serum or plasma albumin anel urement (mass/volume)on 11-14-2021 Albumin [Mass/Vol] 2.8 g/dL 3.2-5.0 [facility] Work Phone: [phone] Serum or plasma albumin/glob ulin mass ratioon 11-14-2021 Albumin/Globulin [Mass ratio] 0.6 {ratio} 0.9-2.4 [facility] Work Phone: Serum or plasma calcium anel urement (mass/volume)on 11-14-2021 Calcium [Mass/Vol] 9.7 mg/dL 8.5-10.1 [facility] Work Phone: Serum or plasma creatinine m easurement (mass/volume)on 11-14-2021 Creatinine [Mass/Vol] 3.15 mg/dL 0.70-1.30 [facility] Work Phone: Comment on above: The validity of the calculated GFR & GFRAA in patients over 70 years has not been determined. Clinical correlation is essential. Serum or plasma urea nitroge n measurement (mass/volume)on 11-14-2021 Urea nitrogen [Mass/Vol] 73 mg/dL 7-18 [facility] Work Phone: Squamous epithelial cells de tection in urine sediment by light microscopyon 11-14-2021 Epithelial cells.squamous LM Ql (Urine sed) 0-5 SEEN /hpf 0-5 [facility] Work Phone: Thin prep Papanicolaou smear with manual screeningon 11-14-2021 Thin prep Papanicolaou smear with manual screening 32 U/L 15-37 [facility] Work Phone: Thin prep Papanicolaou smear with manual screening 9 5-15 [facility] Work Phone: [phone] Urine blood detectionon RBC Ql (U) 10 /ul Negative [facility] Work Phone: [phone] RBC Ql (U) 0-5 SEEN /hpf 0-5 [facility] Work Phone: [phone] Urine clarityon 11-14-2021 Clarity (U) Sl. Cloudy Clear [facility] Work Phone: Urine color determinationon 11-14-2021 Color (U) Yellow Yellow [facility] Work Phone: Urine glucose detectionon Glucose Ql (U) 1000 mg/dl Normal [facility] Work Phone: Urine leukocyte esterase det ection by dipstickon 11-14-2021 Leukocyte esterase Test strip Ql (U) Negative Negative [facility] Work Phone: Urine pHon 11-14-2021 pH (U) 5.0 [pH] 5.0 - 8.0 [facility] Work Phone: Urine sediment bacteria coun t by microscopy (number/high power field)on 11-14-2021 Bacteria LM.HPF (Urine sed) [#/Area] 0 /[HPF] None Seen [facility] Work Phone: Urine sediment fine granular cast count by microscopy (number/low power field)on 11-14-2021 Fine Granular Casts LM.LPF (Urine sed) [#/Area] 0-5 SEEN /lpf 0-5 [facility] Work Phone: Urine specific gravity measu rementon 11-14-2021 Specific gravity (U) [Rel density] 1.015 1.002-1.030 [facility] Work Phone: Urobilinogen Auto test strip Ql (U)on 11-14-2021 Urobilinogen Ql (U) Normal mg/dl Normal [facility] Work Phone: Acid fast bacillus (AFB) cul ture and smear AFB Cult/Smear [id number] [facility] Work Phone: Culture, urine Bacteria identified Cx Nom (U) Positive [facility] Work Phone: Laboratory - Microbiology an d Antimicrobial susceptibility Bacteria identified Cx Nom (Bld) No growth in 5 days. [facility] Work Phone: Vital Signs Date Time Vital Sign Value Performing Clinician Facility 12-06-2023 10:04-0400 Body mass index (BMI) [Ratio] 33.9 kg/m2 Dr. Liliane Epps Work Phone: [facility] 12-06-2023 10:04-0400 Body temperature 97.6 [degF] Dr. Liliane Epps Work Phone: [facility] 12-06-2023 10:04-0400 Diastolic blood pressure 76 mm[Hg] Dr. Liliane Epps Work Phone: [facility] 12-06-2023 10:04-0400 Heart rate 94 /min Dr. Liliane Epps Work Phone: [facility] 12-06-2023 10:04-0400 Respiratory rate 18 /min Dr. Liliane Epps Work Phone: [facility] 12-06-2023 10:04-0400 Systolic blood pressure 145 mm[Hg] Dr. Liliane Epps Work Phone: [facility] 11-15-2023 10:49-0400 Body mass index (BMI) [Ratio] 33.9 kg/m2 Dr. Liliane Epps Work Phone: [facility] 11-15-2023 10:49-0400 Body temperature 98 [degF] Dr. Liliane Epps Work Phone: [facility] 11-15-2023 10:49-0400 Diastolic blood pressure 80 mm[Hg] Dr. Liliane Epps Work Phone: [facility] 11-15-2023 10:49-0400 Heart rate 92 /min Dr. Liliane Epps Work Phone: [facility] 11-15-2023 10:49-0400 Respiratory rate 18 /min Dr. Liliane Epps Work Phone: [facility] 11-15-2023 10:49-0400 Systolic blood pressure 133 mm[Hg] Dr. Liliane Epps Work Phone: [facility] 11-07-2023 00:24-0400 Body weight 113.[address] Liliane Epps Work Phone: [facility] 11-07-2023 00:24-0400 Inhaled oxygen flow rate 99 L/min Dr. Liliane Epps Work Phone: [facility] 11-03-2023 13:10-0400 Body temperature 97 [degF] Dr. Liliane Epps Work Phone: [facility] 11-03-2023 13:10-0400 Diastolic blood pressure 70 mm[Hg] Dr. Liliane Epps Work Phone: [facility] 11-03-2023 13:10-0400 Heart rate 83 /min Dr. Liliane Epps Work Phone: [facility] 11-03-2023 13:10-0400 Respiratory rate 16 /min Dr. Liliane Epps Work Phone: [facility] 11-03-2023 13:10-0400 Systolic blood pressure 118 mm[Hg] Dr. Liliane Epps Work Phone: [facility] 11-01-2023 11:25-0400 Body mass index (BMI) [Ratio] 33.9 kg/m2 Dr. Liliane Epps Work Phone: [facility] 10-07-2023 00:29-0500 Body weight 113.[address] Liliane Epps Work Phone: [facility] 10-07-2023 00:29-0500 Inhaled oxygen flow rate 99 L/min Dr. Liliane Epps Work Phone: [facility] 10-06-2023 13:16-0500 Body temperature 96.8 [degF] Dr. Liliane Epps Work Phone: [facility] 10-06-2023 13:16-0500 Diastolic blood pressure 84 mm[Hg] Dr. Liliane Epps Work Phone: [facility] 10-06-2023 13:16-0500 Heart rate 88 /min Dr. Liliane Epps Work Phone: [facility] 10-06-2023 13:16-0500 Respiratory rate 18 /min Dr. Liliane Epps Work Phone: [facility] 10-06-2023 13:16-0500 Systolic blood pressure 130 mm[Hg] Dr. Liliane Epps Work Phone: [facility] 10-04-2023 11:12-0500 Body mass index (BMI) [Ratio] 33.9 kg/m2 Dr. Liliane Epps Work Phone: [facility] 09-08-2023 00:33-0500 Body weight 113.[address] Liliane Epps Work Phone: [facility] 09-08-2023 00:33-0500 Inhaled oxygen flow rate 99 L/min Dr. Liliane Epps Work Phone: [facility] 09-06-2023 09:57-0500 Body mass index (BMI) [Ratio] 33.9 kg/m2 Dr. Liliane Epps Work Phone: [facility] 09-06-2023 09:57-0500 Body temperature 96.9 [degF] Dr. Liliane Epps Work Phone: [facility] 09-06-2023 09:57-0500 Diastolic blood pressure 72 mm[Hg] Dr. Liliane Epps Work Phone: [facility] 09-06-2023 09:57-0500 Heart rate 91 /min Dr. Liliane Epps Work Phone: [facility] 09-06-2023 09:57-0500 Inhaled oxygen flow rate 99 L/min Dr. Liliane Epps Work Phone: [facility] 09-06-2023 09:57-0500 Respiratory rate 18 /min Dr. Liliane Epps Work Phone: [facility] 09-06-2023 09:57-0500 Systolic blood pressure 128 mm[Hg] Dr. Liliane Epps Work Phone: [facility] 09-05-2023 14:08-0500 Body temperature 98.1 [degF] Dr. Liliane Epps Work Phone: [facility] 09-05-2023 14:08-0500 Diastolic blood pressure 67 mm[Hg] Dr. Liliane Epps Work Phone: [facility] 09-05-2023 14:08-0500 Heart rate 100 /min Dr. Liliane Epps Work Phone: [facility] 09-05-2023 14:08-0500 Respiratory rate 18 /min Dr. Liliane Epps Work Phone: [facility] 09-05-2023 14:08-0500 SaO2% (BldA) [Mass fraction] 98 % Dr. Liliane Epps Work Phone: [facility] 09-05-2023 14:08-0500 Systolic blood pressure 113 mm[Hg] Dr. Liliane Epps Work Phone: [facility] 09-01-2023 06:11-0500 Body height 180.[address] Liliane Epps Work Phone: [facility] 09-01-2023 06:11-0500 Body mass index (BMI) [Ratio] 36 kg/m2 Dr. Liliane Epps Work Phone: [facility] 09-01-2023 06:11-0500 Body weight 117.[address] Liliane Epps Work Phone: [facility] 08-30-2023 09:34-0500 Body mass index (BMI) [Ratio] 33.9 kg/m2 Dr. Liliane Epps Work Phone: [facility] 08-30-2023 09:34-0500 Body temperature 96.6 [degF] Dr. Liliane Epps Work Phone: [facility] 08-30-2023 09:34-0500 Diastolic blood pressure 75 mm[Hg] Dr. Liliane Epps Work Phone: [facility] 08-30-2023 09:34-0500 Heart rate 95 /min Dr. Liliane Epps Work Phone: [facility] 08-30-2023 09:34-0500 Respiratory rate 16 /min Dr. Liliane Epps Work Phone: [facility] 08-30-2023 09:34-0500 Systolic blood pressure 145 mm[Hg] Dr. Liliane Epps Work Phone: [facility] 08-23-2023 09:41-0500 Body weight 113.[address] Liliane Epps Work Phone: [facility] 07-16-2023 11:39-0500 Body temperature 98.8 [degF] Dr. Liliane Epps Work Phone: [facility] 07-16-2023 11:39-0500 Diastolic blood pressure 57 mm[Hg] Dr. Liliane Epps Work Phone: [facility] 07-16-2023 11:39-0500 Heart rate 98 /min Dr. Liliane Epps Work Phone: [facility] 07-16-2023 11:39-0500 Respiratory rate 16 /min Dr. Liliane Epps Work Phone: [facility] 07-16-2023 11:39-0500 SaO2% (BldA) [Mass fraction] 96 % Dr. Liliane Epps Work Phone: [facility] 07-16-2023 11:39-0500 Systolic blood pressure 98 mm[Hg] Dr. Liliane Epps Work Phone: [facility] 07-15-2023 18:20-0500 Body height 180.[address] Liliane Epps Work Phone: [facility] 07-15-2023 18:20-0500 Body mass index (BMI) [Ratio] 37.5 kg/m2 Dr. Liliane Epps Work Phone: [facility] 07-15-2023 18:20-0500 Body weight 121.[address] Liliane Epps Work Phone: [facility] 07-15-2023 17:00-0500 Inhaled oxygen flow rate 3 L/min Dr. Liliane Epps Work Phone: [facility] 09-18-2022 09:25-0500 Body temperature 98.2 [degF] Dr. Liliane Epps Work Phone: [facility] 09-18-2022 09:25-0500 Diastolic blood pressure 73 mm[Hg] Dr. Lliiane Epps Work Phone: [facility] 09-18-2022 09:25-0500 Heart rate 89 /min Dr. Liliane Epps Work Phone: [facility] 09-18-2022 09:25-0500 Respiratory rate 18 /min Dr. Liliane Epps Work Phone: [facility] 09-18-2022 09:25-0500 SaO2% (BldA) [Mass fraction] 97 % Dr. Liliane Epps Work Phone: [facility] 09-18-2022 09:25-0500 Systolic blood pressure 127 mm[Hg] Dr. Liliane Epps Work Phone: [facility] 09-17-2022 14:09-0500 Body height 180.[address] Liliane Epps Work Phone: [facility] 09-17-2022 14:09-0500 Body mass index (BMI) [Ratio] 37.2 kg/m2 Dr. Liliane Epps Work Phone: [facility] 09-17-2022 14:09-0500 Body weight [address] Liliane Epps Work Phone: [facility] 09-17-2022 13:30-0500 Inhaled oxygen flow rate 2 L/min Dr. Liliane Epps Work Phone: [facility] 07-08-2022 00:40-0500 Body mass index (BMI) [Ratio] 34.8 kg/m2 Dr. Liliane Epps Work Phone: [facility] 07-08-2022 00:40-0500 Body temperature 97.3 [degF] Dr. Liliane Epps Work Phone: [facility] 07-08-2022 00:40-0500 Body weight 113.[address] Liliane Epps Work Phone: [facility] 07-08-2022 00:40-0500 Diastolic blood pressure 75 mm[Hg] Dr. Liliane Epps Work Phone: [facility] 07-08-2022 00:40-0500 Heart rate 90 /min Dr. Liliane Epps Work Phone: [facility] 07-08-2022 00:40-0500 Respiratory rate 16 /min Dr. Liliane Epps Work Phone: [facility] 07-08-2022 00:40-0500 Systolic blood pressure 138 mm[Hg] Dr. Liliane Epps Work Phone: [facility] 06-29-2022 08:07-0500 Body mass index (BMI) [Ratio] 34.8 kg/m2 Dr. Liliane Epps Work Phone: [facility] 06-29-2022 08:07-0500 Body temperature 97.3 [degF] Dr. Liliane Epps Work Phone: [facility] 06-29-2022 08:07-0500 Diastolic blood pressure 75 mm[Hg] Dr. Liliane Epps Work Phone: [facility] 06-29-2022 08:07-0500 Heart rate 90 /min Dr. Liliane Epps Work Phone: [facility] 06-29-2022 08:07-0500 Respiratory rate 16 /min Dr. Liliane Epps Work Phone: [facility] 06-29-2022 08:07-0500 Systolic blood pressure 138 mm[Hg] Dr. Liliane Epps Work Phone: [facility] 06-15-2022 08:08-0500 Body height 180.[address] Liliane Epps Work Phone: [facility] 06-15-2022 08:08-0500 Body weight 113.[address] Liliane Epps Work Phone: [facility] 05-04-2022 08:26-0400 Body temperature 97 [degF] Dr. Liliane Epps Work Phone: [facility] Work Phone: 05-04-2022 08:26-0400 Body weight 109.[address] Liliane Epps Work Phone: [facility] Work Phone: 05-04-2022 08:26-0400 Diastolic blood pressure 78 mm[Hg] Dr. Liliane Epps Work Phone: [facility] Work Phone: 05-04-2022 08:26-0400 Heart rate 89 /min Dr. Liliane Epps Work Phone: [facility] Work Phone: 05-04-2022 08:26-0400 Respiratory rate 16 /min Dr. Liliane Epps Work Phone: [facility] Work Phone: 05-04-2022 08:26-0400 Systolic blood pressure 126 mm[Hg] Dr. Liliane Epps Work Phone: [facility] Work Phone: 04-27-2022 08:24-0400 Body mass index (BMI) [Ratio] 41.8 kg/m2 Dr. Liliane Epps Work Phone: [facility] Work Phone: 04-05-2022 08:16-0400 Body mass index (BMI) [Ratio] 41.8 kg/m2 Dr. Liliane Epps Work Phone: [facility] Work Phone: 04-05-2022 08:16-0400 Body temperature 97.5 [degF] Dr. Liliane Epps Work Phone: [facility] Work Phone: 04-05-2022 08:16-0400 Diastolic blood pressure 61 mm[Hg] Dr. Liliane Epps Work Phone: [facility] Work Phone: 04-05-2022 08:16-0400 Heart rate 81 /min Dr. Liliane Epps Work Phone: [facility] Work Phone: 04-05-2022 08:16-0400 Systolic blood pressure 116 mm[Hg] Dr. Liliane Epps Work Phone: [facility] Work Phone: 03-30-2022 09:57-0400 Respiratory rate 16 /min Dr. Liliane Epps Work Phone: [facility] Work Phone: 03-08-2022 00:30-0400 Body weight 136.[address] Liliane Epps Work Phone: [facility] Work Phone: 03-02-2022 09:51-0400 Body mass index (BMI) [Ratio] 41.8 kg/m2 Dr. Liliane Epps Work Phone: [facility] [facility]: 03-02-2022 09:51-0400 Body temperature 96.9 [degF] Dr. Liliane Epps Work Phone: [facility] Work Phone: 03-02-2022 09:51-0400 Diastolic blood pressure 65 mm[Hg] Dr. Liliane Epps Work Phone: [facility] Work Phone: 03-02-2022 09:51-0400 Heart rate 81 /min Dr. Liliane Epps Work Phone: [facility] Work Phone: 03-02-2022 09:51-0400 Respiratory rate 16 /min Dr. Liliane Epps Work Phone: [facility] Work Phone: 03-02-2022 09:51-0400 Systolic blood pressure 116 mm[Hg] Dr. Liliane Epps Work Phone: [facility] Work Phone: 02-05-2022 00:38-0400 Body weight 136.[address] Liliane Epps Work Phone: [facility] Work Phone: 02-02-2022 10:29-0400 Body mass index (BMI) [Ratio] 41.8 kg/m2 Dr. Liliane Epps Work Phone: [facility] Work Phone: 02-02-2022 10:29-0400 Body temperature 97.2 [degF] Dr. Liliane Epps Work Phone: [facility] Work Phone: 01-26-2022 11:01-0400 Diastolic blood pressure 65 mm[Hg] Dr. Liliane Epps Work Phone: [facility] Work Phone: 01-26-2022 11:01-0400 Heart rate 91 /min Dr. Liliane Epps Work Phone: [facility] Work Phone: 01-26-2022 11:01-0400 Systolic blood pressure 112 mm[Hg] Dr. Liliane Epps Work Phone: [facility] Work Phone: 01-06-2022 01:07-0400 Body weight 136.[address] Liliane Epps Work Phone: [facility] Work Phone: 01-06-2022 01:07-0400 Respiratory rate 16 /min Dr. Liliane Epps Work Phone: [facility] Work Phone: 01-05-2022 10:15-0400 Body mass index (BMI) [Ratio] 41.8 kg/m2 Dr. Liliane Epps Work Phone: [facility] Work Phone: 01-05-2022 10:15-0400 Body temperature 97.2 [degF] Dr. Liliane Epps Work Phone: [facility] Work Phone: 01-05-2022 10:15-0400 Diastolic blood pressure 53 mm[Hg] Dr. Liliane Epps Work Phone: [facility] Work Phone: 01-05-2022 10:15-0400 Heart rate 92 /min Dr. Liliane Epps Work Phone: [facility] Work Phone: 01-05-2022 10:15-0400 Respiratory rate 16 /min Dr. Liliane Epps Work Phone: [facility] Work Phone: 01-05-2022 10:15-0400 Systolic blood pressure 98 mm[Hg] Dr. Liliane Epps Work Phone: [facility] Work Phone: 12-15-2021 10:25-0400 Body mass index (BMI) [Ratio] 41.8 kg/m2 Dr. Liliane Epps Work Phone: [facility] Work Phone: 12-15-2021 10:25-0400 Body temperature 96.9 [degF] Dr. Liliane Epps Work Phone: [facility] Work Phone: 12-15-2021 10:25-0400 Diastolic blood pressure 61 mm[Hg] Dr. Liliane Epps Work Phone: [facility] Work Phone: 12-15-2021 10:25-0400 Heart rate 81 /min Dr. Liliane Epps Work Phone: [facility] Work Phone: 12-15-2021 10:25-0400 Systolic blood pressure 104 mm[Hg] Dr. Liliane Epps Work Phone: [facility] Work Phone: 12-08-2021 10:30-0400 Body mass index (BMI) [Ratio] 41.8 kg/m2 Dr. Liliane Epps Work Phone: [facility] Work Phone: 12-08-2021 10:30-0400 Body temperature 97.3 [degF] Dr. Liliane Epps Work Phone: [facility] Work Phone: 12-08-2021 10:30-0400 Diastolic blood pressure 51 mm[Hg] Dr. Liliane Epps Work Phone: [facility] Work Phone: 12-08-2021 10:30-0400 Heart rate 107 /min Dr. Liliane Epps Work Phone: [facility] Work Phone: 12-08-2021 10:30-0400 Respiratory rate 16 /min Dr. Liliane Epps Work Phone: [facility] Work Phone: 12-08-2021 10:30-0400 Systolic blood pressure 101 mm[Hg] Dr. Liliane Epps Work Phone: [facility] Work Phone: 12-06-2021 00:49-0400 Body weight 136.[address] Liliane Epps Work Phone: [facility] Work Phone: 12-01-2021 11:02-0400 Body mass index (BMI) [Ratio] 41.8 kg/m2 Dr. Liliane Epps Work Phone: [facility] Work Phone: 12-01-2021 11:02-0400 Body temperature 97 [degF] Dr. Liliane Epps Work Phone: [facility] Work Phone: 12-01-2021 11:02-0400 Diastolic blood pressure 67 mm[Hg] Dr. Liliane Epps Work Phone: [facility] Work Phone: 12-01-2021 11:02-0400 Heart rate 107 /min Dr. Liliane Epps Work Phone: [facility] Work Phone: 12-01-2021 11:02-0400 Respiratory rate 16 /min Dr. Liliane Epps Work Phone: [facility] Work Phone: 12-01-2021 11:02-0400 Systolic blood pressure 112 mm[Hg] Dr. Liliane Epps Work Phone: [facility] Work Phone: 11-24-2021 12:39-0400 Body height 180.[address] Liliane Epps Work Phone: [facility] Work Phone: 11-24-2021 12:39-0400 Body mass index (BMI) [Ratio] 41.8 kg/m2 Dr. Liliane Epps Work Phone: [facility] Work Phone: 11-24-2021 12:39-0400 Body temperature 96.7 [degF] Dr. Liliane Epps Work Phone: [facility] Work Phone: 11-24-2021 12:39-0400 Body weight 136.[address] Liliane Epps Work Phone: [facility] Work Phone: 11-24-2021 12:39-0400 Diastolic blood pressure 55 mm[Hg] Dr. Liliane Epps Work Phone: [facility] Work Phone: 11-24-2021 12:39-0400 Heart rate 91 /min Dr. Liliane Epps Work Phone: [facility] Work Phone: 11-24-2021 12:39-0400 Respiratory rate 16 /min Dr. Liliane Epps Work Phone: [facility] Work Phone: 11-24-2021 12:39-0400 SaO2% (BldA) [Mass fraction] 97 % Dr. Liliane Epps Work Phone: [facility] Work Phone: 11-24-2021 12:39-0400 Systolic blood pressure 107 mm[Hg] Dr. Liliane Epps Work Phone: [facility] Work Phone: 11-24-2021 10:36-0400 Body weight 136.[address] Liliane Epps Work Phone: [facility] Work Phone: 11-21-2021 11:08-0400 Body temperature 98.4 [degF] Dr. Liliane Epps Work Phone: [facility] Work Phone: 11-21-2021 11:08-0400 Diastolic blood pressure 70 mm[Hg] Dr. Liliane Epps Work Phone: [facility] Work Phone: 11-21-2021 11:08-0400 Heart rate 82 /min Dr. Liliane Epps Work Phone: [facility] Work Phone: 11-21-2021 11:08-0400 Respiratory rate 18 /min Dr. Liliane Epps Work Phone: [facility] Work Phone: 11-21-2021 11:08-0400 SaO2% (BldA) [Mass fraction] 99 % Dr. Liliane Epps Work Phone: [facility] Work Phone: 11-21-2021 11:08-0400 Systolic blood pressure 123 mm[Hg] Dr. Liliane Epps Work Phone: [facility] Work Phone: 11-21-2021 06:00-0400 Body weight 137.[address] Liliane Epps Work Phone: [facility] Work Phone: 11-16-2021 23:29-0400 Body height 180.[address] Liliane Epps Work Phone: [facility] Work Phone: 11-16-2021 23:29-0400 Body mass index (BMI) [Ratio] 42.2 kg/m2 Dr. Liliane Epps Work Phone: [facility] Work Phone: 11-15-2021 20:15-0400 Inhaled oxygen flow rate 2 L/min Dr. Liliane Epps Work Phone: [facility] Work Phone: 11-14-2021 19:19-0400 Body height 180.[address] Liliane Epps Work Phone: [facility] Work Phone: 11-14-2021 19:19-0400 Body mass index (BMI) [Ratio] 50.1 kg/m2 Dr. Liliane Epps Work Phone: [facility] Work Phone: 11-14-2021 19:19-0400 Body temperature 100.5 [degF] Dr. Liliane Epps Work Phone: [facility] Work Phone: 11-14-2021 19:19-0400 Body weight 163.[address] Liliane Epps Work Phone: [facility] Work Phone: 11-14-2021 19:19-0400 Respiratory rate 18 /min Dr. Liliane Epps Work Phone: [facility] Work Phone: 11-14-2021 19:19-0400 SaO2% (BldA) [Mass fraction] 95 % Dr. Liliane Epps Work Phone: [facility] Work Phone: 11-14-2021 19:11-0400 Diastolic blood pressure 25 mm[Hg] Dr. Liliane Epps Work Phone: [facility] Work Phone: 11-14-2021 19:11-0400 Heart rate 95 /min Dr. Liliane Epps Work Phone: [facility] Work Phone: 11-14-2021 19:11-0400 Systolic blood pressure 73 mm[Hg] Dr. Liliane Epps Work Phone: [facility] Work Phone: Encounters Encounter Date Encounter Type Care Provider Facility Start: 02-04-2025 ambulatory Dudley Hightower Facility: [facility] Start: 01-17-2025 End: 01-17-[address] Liliane Epps DO Work Phone: [facility] Work Phone: Start: 01-17-2025 End: 01-17-[address] Jordi Perkins DPM -Laboratory Work Phone: Start: 01-17-2025 End: 01-17-2025 ambulatory Jordi Perkins Facility:[facility] Start: 09-27-2024 End: 10-01-2024 ambulatory LILIANE EPPS DO Facility:[facility] Start: 09-21-2024 End: 09-21-2024 ambulatory LILIANE EPPS DO [facility] Start: 09-21-2024 End: 09-21-2024 Patient encounter procedure LILIANE EPPS DO [facility] Start: 06-26-2024 End: 06-26-2024 ambulatory Jordi Perkins Facility:[facility] Start: 06-14-2024 End: 06-14-2024 ambulatory Jordi Perkins Facility:[facility] Start: 05-29-2024 End: 06-26-2024 ambulatory Jordi Perkins Facility:[facility] Start: 05-08-2024 ambulatory Liliane Epps Facility: [facility] Start: 05-01-2024 End: 05-07-2024 ambulatory Jordi Perkins Facility:[facility] Start: 04-19-2024 End: 04-19-2024 ambulatory Liliane Epps Facility:[facility] Start: 04-18-2024 End: 04-18-2024 ambulatory Jordi Perkins Facility:[facility] Start: 04-12-2024 End: 04-12-2024 ambulatory Yoan Vee Facility:[facility] Start: 04-03-2024 End: 04-07-2024 ambulatory Jordi Perkins Facility:[facility] Start: 04-02-2024 End: 04-02-2024 ambulatory Jordi Perkins Facility:[facility] Start: 03-29-2024 End: 03-29-2024 ambulatory Liliane Epps Facility:[facility] Start: 03-21-2024 End: 03-21-2024 ambulatory Liliane Epps Facility:[facility] Start: 03-13-2024 ambulatory Jordi Perkins Facility :[facility] Start: 03-13-2024 ambulatory Jordi Perkins Facility :[facility] Start: 03-12-2024 End: 03-12-2024 ambulatory Jordi Perkins Facility:[facility] Start: 03-12-2024 End: 03-16-2024 Evaluation and management of inpatient Nash Yogesh Facility:[facility] Start: 03-12-2024 ambulatory Jordi Perkins Facility :[facility] Start: 03-06-2024 End: 03-07-2024 ambulatory Jordi Perkins Facility:[facility] Start: 12-06-2023 End: 12-06-[address] Liliane Epps Work Phone: [facility] Work Phone: Start: 12-06-2023 End: 12-06-[address] Liliane Epps Work Phone: [facility] Work Phone: Start: 11-16-2023 End: 11-16-[address] Liliane Epps Work Phone: [facility] Work Phone: Start: 11-16-2023 End: 11-16-[address] Liliane Epps Work Phone: [facility]-Pulmonary Services/Neurology Work Phone: Start: 11-15-[address] [facility] Work Phone: Start: 11-14-2023 End: 11-14-[address] Liliane Epps Work Phone: [facility] Work Phone: Start: 11-14-2023 End: 11-14-[address] Liliane Epps Work Phone: [facility]-Laboratory Work Phone: Start: 11-10-2023 End: 11-10-[address] Liliane Epps Work Phone: [facility] Work Phone: Start: 11-10-2023 End: 11-10-[address] Liliane Epps Work Phone: [facility]-Laboratory, Specimen Work Phone: Start: 11-03-2023 Non-patient / Non-visit Dr. Afua Epps Work Phone: [facility] Start: 11-03-2023 End: 11-06-[address] Liliane Epps Work Phone: [facility] Work Phone: Start: 11-03-2023 End: 11-06-[address] Liliane Epps Work Phone: [facility] Work Phone: Start: 11-02-2023 Non-patient / Non-visit Dr. Afua Epps Work Phone: [facility] Start: 11-01-2023 Non-patient / Non-visit Dr. Afua Epps Work Phone: [facility] Start: 10-31-2023 Non-patient / Non-visit Dr. Afua Epps Work Phone: [facility] Start: 10-27-2023 Non-patient / Non-visit Dr. Afua Epps Work Phone: [facility] Start: 10-26-2023 Non-patient / Non-visit Dr. Afua Epps Work Phone: [facility] Start: 10-25-2023 Non-patient / Non-visit Dr. Afua Epps Work Phone: [facility] Start: 10-24-2023 Non-patient / Non-visit Dr. Afua Epps Work Phone: [facility] Start: 10-20-2023 Non-patient / Non-visit Dr. Afua Epps Work Phone: [facility] Start: 10-19-2023 Non-patient / Non-visit Dr. Afua Epps Work Phone: [facility] Start: 10-17-2023 Non-patient / Non-visit Dr. Afua Epps Work Phone: [facility] Start: 10-13-2023 Non-patient / Non-visit Dr. Afua Epps Work Phone: [facility] Start: 10-12-2023 Non-patient / Non-visit Dr. Afua Epps Work Phone: [facility] Start: 10-10-2023 Non-patient / Non-visit Dr. Afua Epps Work Phone: [facility] Start: 10-06-2023 Non-patient / Non-visit Dr. Afua Epps Work Phone: [facility] Start: 10-06-2023 End: 10-06-[address] Liliane Epps Work Phone: [facility] Work Phone: Start: 10-06-2023 End: 10-06-[address] Liliane Epps Work Phone: [facility]Home Health Lab Start: 10-06-[address] Cam [facility] Work [facility] Start: 10-05-2023 Non-patient / Non-visit Dr. Afua Epps Work Phone: [facility] Start: 10-04-2023 Non-patient / Non-visit Dr. Afua Epps Work Phone: [facility] Start: 10-03-2023 Non-patient / Non-visit Dr. Afua Epps Work Phone: [facility] Start: 09-29-2023 Non-patient / Non-visit Dr. Afua Epps Work Phone: [facility] Start: 09-28-2023 Non-patient / Non-visit Dr. Afua Epps Work Phone: [facility] Start: 09-22-2023 Non-patient / Non-visit Dr. Afua Epps Work Phone: [facility] Start: 09-21-2023 Non-patient / Non-visit Dr. Afua Epps Work Phone: [facility] Start: 09-19-2023 Non-patient / Non-visit Dr. Afua Epps Work Phone: [facility] Start: 09-15-2023 End: 10-06-[address] Liliane Epps Work Phone: [facility] Work Phone: Start: 09-15-2023 End: 10-06-[address] Liliane Epps Work Phone: [facility] Start: 09-08-2023 End: 09-08-[address] Liliane Epps Work Phone: [facility]-Laboratory, Specimen Work Phone: Start: 09-08-2023 End: 09-08-2023 Non-patient / Non-visit Dr. Liliane Epps Work Phone: [facility] Work Phone: Start: 09-06-2023 End: 09-07-[address] Liliane Epps Work Phone: [facility] Work Phone: Start: 09-06-2023 End: 09-07-[address] Lil[facility]pps [facility] Work [facility] Start: 09-05-2023 Non-patient / Non-visit Dr. Afua Epps Work Phone: [facility] Work Phone: Start: 09-04-2023 Non-patient / Non-visit Dr. Afua Epps Work Phone: [facility] Work Phone: Start: 09-03-2023 Non-patient / Non-visit Dr. Afua Epps Work Phone: [facility] Work Phone: Start: 09-02-2023 Non-patient / Non-visit Dr. Afua Epps Work Phone: [facility] Start: 09-02-2023 Non-patient / Non-visit Dr. Afua Epps Work Phone: [facility] Work Phone: Start: 09-01-2023 Non-patient / Non-visit Dr. Afua Epps Work Phone: [facility] Work Phone: Start: 08-31-2023 Non-patient / Non-visit Dr. Afua Epps Work Phone: [facility] Work Phone: Start: 08-30-2023 End: 09-05-2023 Evaluation and management of inpatient [facility] Liliane [facility] Work Phone: Start: 08-30-[address] Cam [facility]pps [facility] Work [facility]: Start: 07-16-2023 Non-patient / Non-visit Dr. Afua Epps Work Phone: [facility] Work Phone: Start: 07-15-2023 Non-patient / Non-visit Dr. Afua Epps Work Phone: [facility] Work Phone: Start: 07-15-2023 End: 07-16-2023 Evaluation and management of inpatient Dr. Liliane Epps [facility] Work [facility]: Start: 07-15-2023 End: 07-16-[address] Liliane Epps Work Phone: [facility] Work Phone: Start: 07-14-2023 End: 07-15-2023 ambulatory LILIANE EPPS DO Facility:[facility] Start: 07-14-2023 End: 07-14-2023 Patient encounter procedure LILIANE EPPS DO [facility] Start: 06-24-2023 End: 06-24-2023 ambulatory [facility] Work Phone: Start: 06-24-2023 End: 06-24-2023 Patient encounter procedure [facility] Start: 02-11-2023 End: 02-11-2023 ambulatory [facility] Work Phone: Start: 02-11-2023 End: 02-11-2023 Discharged Recurring [facility]-Physical Therapy Work Phone: Start: 01-04-2023 End: 01-04-[address] Liliane Epps Work Phone: [facility] Work Phone: Start: 01-04-2023 End: 01-04-[address] Liliane Epps Work Phone: [facility] Start: 09-17-2022 Non-patient / Non-visit Dr. Afua Epps Work Phone: [facility] Start: 09-17-2022 End: 09-18-2022 Evaluation and management of inpatient [facility]. Liliane [facility] Start: 09-17-2022 End: 09-18-[address] Liliane Epps Work Phone: [facility] Work Phone: Start: 08-24-2022 End: 08-24-2022 ambulatory [facility] Work Phone: Start: 08-24-2022 End: 08-24-2022 Patient encounter procedure [facility] Start: 07-09-2022 End: 07-09-[address] Liliane Epps Work Phone: [facility] Work Phone: Start: 07-09-2022 End: 07-09-[address] [facility] Start: 06-29-2022 End: 07-07-[address] Liliane Epps Work Phone: [facility] Work Phone: Start: 06-29-2022 End: 07-07-[address] Lil[facility] Start: 06-29-[address] Cam [facility]pps [facility] Start: 06-26-2022 End: 06-26-[address] Liliane Epps Work Phone: [facility] Work Phone: Start: 06-26-2022 End: 06-26-[address] Liliane Epps Work Phone: [facility] Start: 05-04-2022 End: 05-04-[address] Liliane Epps Work Phone: [facility] Work Phone: Start: 05-04-2022 End: 05-04-[address] Lil[facility]pps [facility] Start: 04-13-2022 Non-patient / Non-visit Dr. Afua Epps Work Phone: [facility] Start: 04-05-2022 Non-patient / Non-visit Dr. Afua Epps Work Phone: [facility] Start: 04-05-2022 End: 04-07-[address] Liliane Epps Work Phone: [facility] Work Phone: Start: 04-05-2022 End: 04-07-[address] Liliane Epps Work Phone: [facility] Start: 03-02-2022 End: 03-07-[address] Liliane Epps Work Phone: [facility] Start: 02-04-2022 End: 02-04-2022 Patient encounter procedure LILIANE EPPS DO [facility] Start: 02-02-2022 End: 02-04-[address] Liliane Epps Work Phone: [facility] Start: 01-21-2022 End: 01-21-2022 Patient encounter procedure LILIANE EPPS DO [facility] Start: 01-19-2022 End: 01-19-2022 Patient encounter procedure LILIANE EPPS DO [facility] Start: 01-05-2022 End: 01-05-[address] Liliane Epps Work Phone: [facility] Start: 01-05-[address] Cam Epps Work Phone: [facility] Start: 12-25-2021 End: 12-25-[address] Lil[facility] Start: 12-15-2021 End: 12-15-[address] [facility] Start: 12-15-[address] Cam [facility] Start: 12-11-2021 End: 12-11-[address] Liliane Epps Work Phone: [facility]-Laboratory, Specimen Start: 12-08-[address] [facility] Start: 12-04-2021 End: 12-05-[address] Lil[facility] Start: 12-01-2021 End: 12-05-[address] Liliane Epps Work Phone: [facility] Start: 12-01-[address] [facility] Start: 11-27-[address] [facility] Start: 11-24-2021 End: 11-24-[address] [facility] Start: 11-21-2021 Non-patient / Non-visit Dr. Afua Epps Work Phone: [facility] Start: 11-20-2021 Non-patient / Non-visit Dr. Afua Epps Work Phone: [facility] Start: 11-19-2021 Non-patient / Non-visit Dr. Afua Epps Work Phone: [facility] Start: 11-18-2021 Non-patient / Non-visit Dr. Afua Epps Work Phone: [facility] Start: 11-17-2021 Non-patient / Non-visit Dr. Afua Epps Work Phone: [facility] Start: 11-17-2021 Non-patient / Non-visit Dr. Afua Epps Work Phone: [facility] Start: 11-16-2021 Non-patient / Non-visit Dr. Afua Epps Work Phone: [facility] Start: 11-16-2021 Non-patient / Non-visit Dr. Afua Epps Work Phone: [facility] Start: 11-15-2021 Non-patient / Non-visit Dr. Afua Epps Work Phone: [facility] Start: 11-15-2021 Non-patient / Non-visit Dr. Aufa Epps Work Phone: [facility] Start: 11-14-2021 Non-patient / Non-visit Dr. Afua Epps Work Phone: [facility] Start: 11-14-2021 End: 11-21-2021 Evaluation and management of inpatient Dr. Liliane Epps Work Phone: [facility]Intensive Care Unit Start: 10-24-2020 End: 10-24-2020 Discharged Recurring [facility]-Immun[facility] Procedures Date Procedure Procedure Detail Performing Clinician Start: 11-10-[address] Liliane Epps Work Phone: Start: 11-10-2023 Investigation of transfusion reaction Dr. Liliane Epps Work Phone: Start: 11-10-2023 Microbial culture, routine Dr. Liliane Epps Work Phone: Start: 11-01-[address] Giovanny Epps Work Phone: Start: 11-01-2023 X-ray of both feet Dr. Liliane Epps Work Phone: Start: 10-31-2023 MRI of joint of lowe r extremity Dr. Liliane Epps Work Phone: Start: 10-07-[address] Giovanny Epps Work Phone: Start: 10-07-2023 X-ray of both feet Dr. Liliane Epps Work Phone: Start: 10-04-[address] Liliane Epps Work Phone: Start: 10-04-2023 Investigation of transfusion reaction Dr. Liliane Epps Work Phone: Start: 10-04-2023 Microbial culture, routine Dr. Liliane Epps Work Phone: Start: 09-08-[address] Giovanny Epps Work Phone: Start: 09-08-2023 X-ray of both feet Dr. Liliane Epps Work Phone: Start: 09-01-[address] Liliane Epps Work Phone: Start: 09-01-2023 Investigation of transfusion reaction Dr. Liliane Epps Work Phone: Start: 09-01-2023 Microbial culture, routine Dr. Liliane Epps Work Phone: Start: 09-01-2023 Plain chest X-ray Dr. Ld Epps Work Phone: Start: 09-01-2023 Incision and drainag e of abscess Dr. Liliane Epps Work Phone: Start: 08-30-[address] Liliane Epps Work Phone: Start: 08-30-2023 Bacteria identified in Blood by Culture Dr. Liliane Epps Work Phone: Start: 08-30-2023 Investigation of transfusion reaction Dr. Liliane Epps Work Phone: Start: 08-30-2023 Microbial culture, routine Dr. Liliane Epps Work Phone: Start: 08-25-[address] Giovanny Epps Work Phone: Start: 08-25-2023 X-ray of both feet Dr. Liliane Epps Work Phone: Start: 07-15-2023 Fluoroscopic guidance Noelle Epps Work Phone: Start: 07-15-2023 X-ray of both feet Dr. Liliane Epps Work Phone: Start: 07-15-2023 Fusion of tarsal joints Dr. Liliane Epps Work Phone: Start: 01-04-2023 End: 01-04-2023 MRI of lower extremity Dr. Liliane Epps Work Phone: Start: 09-17-2022 Fusion of tarsal joints Dr. Liilane Epps Work Phone: Start: 09-17-2022 Fluoroscopic guidance Noelle Epps Work Phone: Start: 09-17-[address] Giovanny Epps Work Phone: Start: 09-17-2022 Lower limb structure (body structure) LILIANE EPPS DO Comment on above: rt leg, foot and ank le-rods put in to straighten it Start: 09-08-2022 Structure of right f oot (body structure) LILIANE EPPS DO Start: 06-26-2022 MRI of lower extremity Dr. Liliane Epps Work Phone: Start: 11-17-2021 End: 11-17-2021 Acid fast bacilli culture Dr. Liliane hernandez Work Phone: Start: 11-17-2021 End: 11-17-2021 Cytopathology procedure, preparation of smear, genital source Dr. Liliane Epps Work Phone: Start: 11-17-2021 End: 11-17-[address] Liliane Epps Work Phone: Start: 11-17-2021 Investigation of transfusion reaction Dr. Liliane Epps Work Phone: Start: 11-17-2021 Microbial culture, routine Dr. Liliane Epps Work Phone: Start: 11-17-2021 End: 11-17-[address] Liliane Epps Work Phone: Start: 11-17-[address] Catrina Epps Work Phone: Start: 11-16-2021 Bacteria identified in Blood by Culture Dr. Liliane Epps Work Phone: Start: 11-16-2021 MRI of lower extremity Dr. Liliane Epps Work Phone: Start: 11-14-2021 Incision and drainag e of abscess Dr. Liliane Epps Work Phone: Start: 11-14-2021 Plain X-ray of tibia and fibula Dr. Liliane Epps Work Phone: Start: 11-14-2021 Plain chest X-ray Dr. Ld Epps Work Phone: Start: 11-14-2021 X-ray of both feet Dr. Liliane Epps Work Phone: Start: 11-14-[address] Cam Epps Work Phone: Start: 11-14-2021 End: 11-14-[address] Liliane Epps Work Phone: Acid fast bacilli culture Dr Giovanny Epps Work Phone: Bacteria identified in Blood by Culture Dr. Liliane Epps Work Phone: Cytopathology proced ure, preparation of smear, genital source Dr. Liliane Epps Work Phone: Foot structure (body structure) LILIANE EPPS DO Comment on above: right foot surgery b y Dr Al, Aff[facility]- I&D deep space abcess Fungus stain method Dr. Ilya Epps Work Phone: Mycology culture Dr. Liliane Epps Work Phone: Urine culture Dr. Liliane hernandez Work Phone: Viral antigen assay Dr. Ilya Epps Work Phone: Plan of Treatment Date Care Activity Detail Author Start: 12-06-2023 Radiography of ankle Ankle min 3 Views [facility] Start: 12-06-2023 XR Ankle GE 3 Views [facility] Start: 12-06-2023 X-ray of both feet Foot min 3 Views [facility] Start: 12-06-2023 XR Foot GE 3 Views [facility] Start: 10-04-2023 Anaerobic microbial culture Anaerobic Culture [facility] Start: 09-05-2023 Patient discharge [facility] Start: 09-02-2023 Referral to service [facility] Start: 09-02-2023 Wound care [facility] Start: 09-01-2023 Referral to fiber technologist [facility] Start: 09-01-2023 Consultation [facility] Start: 09-01-2023 Incentive spirometry [facility] Start: 09-01-2023 Referral to service [facility] Start: 09-01-2023 [facility] Start: 09-01-2023 [facility] Start: 08-30-2023 Consultation for treatment [facility] Start: 08-30-2023 Following clinical pathway protocol [facility] Start: 08-30-2023 Assessment of risk of venous thromboembolism [facility] Start: 08-30-2023 Care regimes management [facility] Start: 08-30-2023 Insertion of catheter into peripheral vein [facility] Start: 08-30-2023 Notification of physician [facility] Start: 08-30-2023 Providing care according to standard [facility] Start: 08-30-2023 Provision of activity privileges [facility] Start: 08-30-2023 Referral to occupational therapist [facility] Start: 08-30-2023 Referral to service [facility] Start: 08-30-2023 [facility] Start: 08-30-2023 Verification routine [facility] Start: 08-30-2023 Admission procedure [facility] Start: 08-30-2023 Patient referral to dietitian [facility] Start: 07-16-2023 Patient discharge [facility] Start: 07-15-2023 End: 07-16-2023 [facility] Start: 07-15-2023 Care regimes management [facility] Start: 07-15-2023 Notification of physician [facility] Start: 07-15-2023 Following clinical pathway protocol [facility] Start: 07-15-2023 Consultation [facility] Start: 07-15-2023 Referral to service [facility] Start: 07-15-2023 Admission procedure [facility] Start: 07-15-2023 Anes open proc bones lower leg/ankle/foot nos ANESTH LOWER LEG BONE SURG [facility] Start: 07-15-2023 Arthrodesis subtalar FUSION OF FOOT BONES [facility] Start: 07-15-2023 Injection aa&/strd sciatic nerve NJX AA&/STRD SCIATIC NRV IMG [facility] Start: 09-18-2022 Patient discharge [facility] Start: 09-17-2022 Notification of physician [facility] Start: 09-17-2022 Care regimes management [facility] Start: 09-17-2022 Introduction of urinary catheter [facility] Start: 09-17-2022 Oxygen therapy [facility] Start: 09-17-2022 Following clinical pathway protocol [facility] Start: 09-17-2022 Catheterization of vein [facility] Start: 09-17-2022 Consultation [facility] Start: 09-17-2022 Neurovascular assessment [facility] Start: 09-17-2022 Procedure discontinued [facility] Start: 09-17-2022 Referral to service [facility] Start: 09-17-2022 Vital signs measurements [facility] Start: 09-17-2022 [facility] Start: 09-17-2022 Anes open proc bones lower leg/ankle/foot nos ANESTH LOWER LEG BONE SURG [facility] Start: 09-17-2022 Arthrodesis ankle open FUSION OF ANKLE JOINT OPEN [facility] Start: 09-17-2022 Arthrodesis subtalar FUSION OF FOOT BONES [facility] Start: 09-17-2022 Injection aa&/strd sciatic nerve NJX AA&/STRD SCIATIC NRV IMG [facility] Start: 09-17-2022 Admission procedure [facility] Start: 11-21-2021 Patient discharge [facility] Work Phone: Start: 11-20-2021 Vacuum assisted skin closure [facility] Work Phone: Start: 11-20-2021 [facility] Work Phone: Start: 11-19-2021 Referral to service [facility] Work Phone: Start: 11-17-2021 [facility] Work Phone: Start: 11-17-2021 Acid Fast Bacilli Culture Acid Fast Bacilli Culture [facility] Work Phone: Start: 11-17-2021 Acid Fast Bacilli Smear Acid Fast Bacilli Smear [facility] Work Phone: Start: 11-17-2021 Anaerobic microbial culture Anaerobic Culture [facility] Work Phone: Start: 11-17-2021 Fungal Culture Fungal Culture [facility] Work Phone: Start: 11-17-2021 Fungal Smear Fungal Smear [facility] Work Phone: Start: 11-17-2021 Application of intermittent pneumatic compression device [facility] Work Phone: Start: 11-17-2021 Consultation for treatment [facility] Work Phone: Start: 11-16-2021 Care planning and problem solving actions [facility] Work Phone: Start: 11-16-2021 [facility] Work Phone: Start: 11-16-2021 Bacteria identified in Blood by Culture Blood Culture [facility] Work Phone: Start: 11-16-2021 Consultation [facility] Work Phone: Start: 11-16-2021 Wound care [facility] Work Phone: Start: 11-15-2021 End: 11-16-2021 [facility] Work Phone: Start: 11-14-2021 Assessment of risk of venous thromboembolism [facility] Work Phone: Start: 11-14-2021 Care regimes management [facility] Work Phone: Start: 11-14-2021 Consultation [facility] Work Phone: Start: 11-14-2021 Insertion of catheter into peripheral vein [facility] Work Phone: Start: 11-14-2021 Measuring intake and output [facility] Work Phone: Start: 11-14-2021 Notification of physician [facility] Work Phone: Start: 11-14-2021 Patient referral to dietitian [facility] Work Phone: Start: 11-14-2021 Providing care according to standard [facility] Work Phone: Start: 11-14-2021 Referral to occupational therapist [facility] Work Phone: Start: 11-14-2021 Referral to fiber technologist [facility] Work Phone: Start: 11-14-2021 Referral to service [facility] Work Phone: Start: 11-14-2021 Vital signs measurements [facility] Work Phone: Start: 11-14-2021 [facility] Work Phone: Start: 11-14-2021 Following clinical pathway protocol [facility] Work Phone: Start: 11-14-2021 Admission procedure [facility] Work Phone: Start: 11-14-2021 Bacteria identified in Blood by Culture Blood Culture [facility] Work Phone: Start: 11-14-2021 Bacteria identified in Urine by Culture Urine Culture [facility] Work Phone: Start: 11-14-2021 Patient referral to dietitian [facility] Work Phone: Patient referral [facility] Work Phone: Immunizations Immunization Date Immunization Notes Care Provider Fa cility 05-04-2023 influenza virus vacc ine, unspecified formulation LILIANE EPPS DO [facility] Comment on above: Result Comment: in o ffice 05-04-2023 influenza, injectabl e, quadrivalent, preservative free Dr. Liliane Epps Work Phone: [facility] 05-04-2023 Pneumococcal conjuga te PCV20, polysaccharide [id number] conjugate, adjuvant, PF; Translations: [Prevnar 20] LILIANE EPPS DO [facility] 09-04-2021 SARS-CoV-2 mRNA (tozinameran) vaccine LILIANE EPPS DO [facility] 08-17-2021 SARS-CoV-2 mRNA (tozinameran) vaccine LILIANE EPPS DO [facility] 05-08-2021 influenza virus vacc ine, unspecified formulation LILIANE EPPS DO [facility] 11-14-2020 [facility] Work Phone: 10-24-2020 [facility] Work Phone: Comment on above: Result Comment: 2020: TPV32 06-25-2020 influenza, injectabl e, quadrivalent, contains preservative; Translations: [Fluarix PF Quadrivalent ] LILIANE EPPS DO [facility] 05-19-2018 influenza virus vacc ine, unspecified formulation LILIANE EPPS DO [facility] 05-18-2017 influenza virus vacc ine, unspecified formulation LILIANE EPPS DO [facility] 05-08-2017 influenza virus vacc ine, unspecified formulation LILIANE EPPS DO [facility] 05-08-2015 influenza virus vacc ine, unspecified formulation LILIANE EPPS DO [facility] 01-27-2015 pneumococcal polysaccharide vaccine, 23 valent LILIANE EPPS DO [facility] 05-08-2014 influenza virus vacc ine, unspecified formulation LILIANE EPPS DO [facility] 10-25-2012 tetanus toxoid, redu mansoor diphtheria toxoid, and acellular pertussis vaccine, adsorbed LILIANE EPPS DO [facility] Payers Date Payer Category Payer Self-pay [id number] 2023 Unknown [id number] 2023 Unknown [id number] 1980 Unknown [id number] .16.8 [id number] 1982 Unknown [id number] 1982 Unknown [id number] .16.8 40.1.648418.3.579.2.627 Unknown [id number] Unknown [employer] STATE [id number] Unknown [id number] 2.16.8 40.1.183095.3.579.2.462 Unknown [id number] .16.8 40.1.698512.3.579.2.462 Unknown [id number] 2.16.8 40.1.640847.3.579.2.462 Unknown [id number] 2.16.8 40.1.288618.3.579.2.462 Unknown [id number] 2.16.8 40.1.952395.3.579.2.462 Unknown [id number] 2.16.8 40.1.427583.3.579.2.462 Unknown [id number] 2.16.8 40.1.535872.3.579.2.462 Unknown [id number] .16.8 40.1.969500.3.579.2.462 Unknown [id number] 2.16.8 40.1.134685.3.579.2.462 Unknown [id number] 2.16.8 40.1.400073.3.579.2.462 Unknown [id number] 2.16.8 40.1.077486.3.579.2.462 Unknown [id number] 2.16.8 40.1.376733.3.579.2.462 Unknown [id number] 2.16.8 40.1.821424.3.579.2.462 Unknown [id number] 2.16.8 40.1.784728.3.579.2.462 Unknown [id number] 2.16.8 40.1.099501.3.579.2.462 Unknown [id number] 2.16.8 40.1.749873.3.579.2.462 Unknown [id number] 2.16.8 40.1.512132.3.579.2.462 Unknown [id number] 2.16.8 40.1.085368.3.579.2.462 Unknown [id number] 2.16.8 40.1.819467.3.579.2.462 Unknown [id number] 2.16.8 40.1.477922.3.579.2.462 Unknown [id number] 2.16.8 40.1.738157.3.579.2.462 Unknown [id number] 2.16.8 40.1.924345.3.579.2.462 Unknown [id number] 2.16.8 40.1.802211.3.579.2.462 Unknown [id number] 2.16.8 40.1.069642.3.579.2.462 Social History Date Type Detail Facility Tobacco smoking stat [facility] Unknown if ever smoked [facility] Work Phone: Start: 1980 Sex Assigned At Male W [facility] Start: 11-14-2021 End: 09-15-2023 Tobacco smoking status NHIS Unknown if ever smoked [facility] Start: 05-17-2019 End: 06-06-2024 Tobacco smoking status Never smoked tobacco (finding) [facility] Sex Assigned At [facility] Start: 01-18-2017 Sex Male (finding) [facility] Medical Equipment Procedure Code Equipment Code Equipment Origin al Text Equipment Identifier Dates ORIF, ankle VITOSS BBTRAUMA [id number] FDA Start: 03-13-2024 ORIF, ankle WIRE 2MM, DIAMON D POINT FDA Start: 03-13-2024 ORIF, ankle Orthopaedic ceme nt, antimicrobial ()[id number])[id number] FDA Start: 03-13-2024 ORIF, ankle WIRE 2.0 WITH OL EVY, FARHANA POINT FDA Start: 03-13-2024 ORIF, ankle WIRE 2.0 WITH OL EVY, FARHANA POINT FDA Start: 03-13-2024 ORIF, ankle WIRE 2.0 WITH OL EVY, FARHANA POINT FDA Start: 03-13-2024 ORIF, ankle WIRE 2.0 WITH OL EVY, FARHANA POINT FDA Start: 03-13-2024 ORIF, ankle WIRE 2MM, DIAMON D POINT FDA Start: 03-13-2024 ORIF, ankle WIRE 2MM, DIAMON D POINT FDA Start: 03-13-2024 ORIF, ankle WIRE 2MM, DIAMON D POINT FDA Start: 03-13-2024 ORIF, ankle WIRE 2MM, DIAMON D POINT FDA Start: 03-13-2024 Incision and drainage, abscess BIOSKIN, 2 X 4 FDA Start: 09-01-2023 Incision and drainage, abscess BIOSKIN, 2 X 4 FDA Start: 09-01-2023 Incision and drainage, abscess BIOSKIN, 2 X 4 FDA Start: 09-01-2023 Incision and drainage, abscess BIOSKIN, 2 X 4 FDA Start: 09-01-2023 Incision and drainage, abscess BIOSKIN, 2 X 4 FDA Start: 09-01-2023 Incision and drainage, abscess BIOSKIN, 2 X 4 FDA Start: 09-01-2023 Incision and drainage, abscess BIOSKIN, 2 X 4 FDA Start: 09-01-2023 Incision and drainage, abscess BIOSKIN, 2 X 4 FDA Start: 09-01-2023 Incision and drainage, abscess BIOSKIN, 2 X 4 FDA Start: 09-01-2023 Incision and drainage, abscess BIOSKIN, 2 X 4 FDA Start: 09-01-2023 Incision and drainage, abscess BIOSKIN, 2 X 4 FDA Start: 09-01-2023 Fusion, talonavicular joint ([id number]) Orthopaedic bone screw, non-bioabsorbable, sterile ()[id number] [id number])[id number])K0 [id number] FDA Start: 09-17-2022 Fusion, talonavicular joint ([id number]) Orthopaedic bone screw, non-bioabsorbable, sterile ([id number] 8(17)725937(10)K0 [id number] FDA Start: 09-17-2022 Fusion, talonavicular joint ([id number]) Orthopaedic bone screw, non-bioabsorbable, sterile ([id number] 2(17)420667(10)K0 [id number] FDA Start: 09-17-2022 Fusion, talonavicular joint ([id number]) Orthopaedic bone screw, non-bioabsorbable, sterile (01)[id number] 9(17)767535(10)K0 [id number] FDA Start: 09-17-2022 Fusion, talonavicular joint Orthopaedic bone screw, non-bioabsorbable, sterile ([id number] 4(17)074399(10)K0 [id number] FDA Start: 09-17-2022 Fusion, talonavicular joint Bone nail end-cap ()[id number] 3(17)806463(10)K0 [id number] FDA Start: 09-17-2022 Fusion, talonavicular joint ([id number]) Orthopaedic bone screw, non-bioabsorbable, sterile ([id number] 3(17)138624(10)K0 DEF42 FDA Start: 09-17-2022 Fusion, talonavicular joint Arthrodesis nail ()[id number] 4(17)789405(10)K0 E014C FDA Start: 09-17-2022 Fusion, talonavicular joint Bone matrix implant, synthetic, non-antimicrobial ([id number] 0(17)[id number](10)17 86834 FDA Start: 09-17-2022 Fusion, talonavicular joint DRESSING,SURGICEL 4x8 FDA Start: 07-15-2023 Fusion, talonavicular joint ([id number]) Orthopaedic bone screw, non-bioabsorbable, sterile (01)[id number] 8(17)961444(10)K1 [id number] FDA Start: 07-15-2023 Fusion, talonavicular joint ([id number]) Orthopaedic bone screw, non-bioabsorbable, sterile ()[id number] 9(17)398694(10)K1 [id number] FDA Start: 07-15-2023 Fusion, talonavicular joint ([id number]) Orthopaedic bone screw, non-bioabsorbable, sterile ([id number] 5(17)222287(10)K0 [id number] FDA Start: 07-15-2023 Fusion, talonavicular joint ([id number]) Orthopaedic bone screw, non-bioabsorbable, sterile (01)[id number] 5(17)993695(10)K0 [id number] FDA Start: 07-15-2023 Fusion, talonavicular joint Medullary canal orthopaedic reamer, rigid ()[id number] [id number])[id number] FDA Start: 07-15-2023 Fusion, talonavicular joint Arthrodesis nail, fixed-length ()[id number] 2(17)323408(10)K0 E63ED FDA Start: 07-15-2023 Fusion, talonavicular joint Bone matrix implant, synthetic, non-antimicrobial ()[id number] 3(17)822231(10)17 [id number] FDA Start: 07-15-2023 Fusion, talonavicular joint Bone matrix implant, synthetic, non-antimicrobial ()[id number] 0(17)[id number])17 42444 FDA Start: 07-15-2023 Fusion, talonavicular joint DRESSING,SURGICEL 4x8 FDA Start: 07-15-2023 Fusion, talonavicular joint DRESSING,SURGICEL 4x8 FDA Start: 07-15-2023 Fusion, talonavicular joint DRESSING,SURGICEL 4x8 FDA Start: 07-15-2023 Fusion, talonavicular joint Plant polysaccharide haemostatic agent, bioabsorbable ()[id number] 6(17)[id number])[id number] FDA Start: 07-15-2023 Fusion, talonavicular joint Bone matrix implant, composite ()[id number] 7(17)[id number])B2 [id number] FDA Start: 07-15-2023 Fusion, talonavicular joint Bone matrix implant, composite ()[id number] 4(17)[id number])B2 [id number] FDA Start: 07-15-2023 Fusion, talonavicular joint ([id number]) Orthopaedic bone screw, non-bioabsorbable, sterile ([id number] 5(17)053867(10)K1 [id number] FDA Start: 07-15-2023 Fusion, talonavicular joint ([id number]) Orthopaedic bone screw, non-bioabsorbable, sterile ()[id number] 8(17)093238(10)K1 56AE4 FDA Start: 07-15-2023 Fusion, talonavicular joint DRESSING,SURGICEL 4x8 FDA Start: 07-15-2023 Fusion, talonavicular joint DRESSING,SURGICEL 4x8 FDA Start: 07-15-2023 Fusion, talonavicular joint DRESSING,SURGICEL 4x8 FDA Start: 07-15-2023 Fusion, talonavicular joint DRESSING,SURGICEL 4x8 FDA Start: 07-15-2023 Fusion, talonavicular joint DRESSING,SURGICEL 4x8 FDA Start: 07-15-2023 Fusion, talonavicular joint DRESSING,SURGICEL 4x8 FDA Start: 07-15-2023 Fusion, talonavicular joint DRESSING,SURGICEL 4x8 FDA Start: 07-15-2023 Fusion, talonavicular joint DRESSING,SURGICEL 4x8 FDA Start: 07-15-2023 Fusion, talonavicular joint DRESSING,SURGICEL 4x8 FDA Start: 07-15-2023 Fusion, talonavicular joint DRESSING,SURGICEL 4x8 FDA Start: 07-15-2023 Fusion, talonavicular joint DRESSING,SURGICEL 4x8 FDA Start: 07-15-2023 Fusion, talonavicular joint DRESSING,SURGICEL 4x8 FDA Start: 07-15-2023 Fusion, talonavicular joint DRESSING,SURGICEL 4x8 FDA Start: 07-15-2023 Fusion, talonavicular joint DRESSING,SURGICEL 4x8 FDA Start: 07-15-2023 Fusion, talonavicular joint DRESSING,SURGICEL 4x8 FDA Start: 07-15-2023 Fusion, talonavicular joint DRESSING,SURGICEL 4x8 FDA Start: 07-15-2023 Fusion, talonavicular joint DRESSING,SURGICEL 4x8 FDA Start: 07-15-2023 Fusion, talonavicular joint DRESSING,SURGICEL 4x8 FDA Start: 07-15-2023 Fusion, talonavicular joint DRESSING,SURGICEL 4x8 FDA Start: 07-15-2023 Fusion, talonavicular joint DRESSING,SURGICEL 4x8 FDA Start: 07-15-2023 Fusion, talonavicular joint DRESSING,SURGICEL 4x8 FDA Start: 07-15-2023 Fusion, talonavicular joint DRESSING,SURGICEL 4x8 FDA Start: 07-15-2023 Fusion, talonavicular joint DRESSING,SURGICEL 4x8 FDA Start: 07-15-2023 Fusion, talonavicular joint DRESSING,SURGICEL 4x8 FDA Start: 07-15-2023 Fusion, talonavicular joint DRESSING,SURGICEL 4x8 FDA Start: 07-15-2023 Fusion, talonavicular joint DRESSING,SURGICEL 4x8 FDA Start: 07-15-2023 Fusion, talonavicular joint DRESSING,SURGICEL 4x8 FDA Start: 07-15-2023 Fusion, talonavicular joint DRESSING,SURGICEL 4x8 FDA Start: 07-15-2023 Fusion, talonavicular joint DRESSING,SURGICEL 4x8 FDA Start: 07-15-2023 Fusion, talonavicular joint DRESSING,SURGICEL 4x8 FDA Start: 07-15-2023 Fusion, talonavicular joint DRESSING,SURGICEL 4x8 FDA Start: 07-15-2023 Fusion, talonavicular joint DRESSING,SURGICEL 4x8 FDA Start: 07-15-2023 Fusion, talonavicular joint DRESSING,SURGICEL 4x8 FDA Start: 07-15-2023 Fusion, talonavicular joint DRESSING,SURGICEL 4x8 FDA Start: 07-15-2023 Fusion, talonavicular joint DRESSING,SURGICEL 4x8 FDA Start: 07-15-2023 Fusion, talonavicular joint DRESSING,SURGICEL 4x8 FDA Start: 07-15-2023 Fusion, talonavicular joint DRESSING,SURGICEL 4x8 FDA Start: 07-15-2023 Fusion, talonavicular joint DRESSING,SURGICEL 4x8 FDA Start: 07-15-2023 Fusion, talonavicular joint DRESSING,SURGICEL 4x8 FDA Start: 07-15-2023 Fusion, talonavicular joint DRESSING,SURGICEL 4x8 FDA Start: 07-15-2023 Fusion, joint [place] Spherical Truss Implant FDA Start: 06-14-2024 Fusion, joint valor screw FDA Start: 06-14-2024 Fusion, joint allo fiber FDA Start: 06-14-2024 Fusion, joint augment injectab le kit FDA Start: 06-14-2024 Fusion, joint left nail valor FDA Start: 06-14-2024 Fusion, joint screw FDA Start: 06-14-2024 Fusion, joint screw FDA Start: 06-14-2024 Fusion, joint screw FDA Start: 06-14-2024 Fusion, joint valor nail end cap FDA Sta rt: 06-14-2024 Fusion, joint valor screw FDA Start: 06-14-2024 Goals Date Patient Goal Desired Activity /State Functional Status Date Assessment Result Facility 09-05-2023 Functional status [facility] Work Phone: 07-16-2023 Functional status [facility] Work Phone: 09-18-2022 Functional status [facility] Work Phone: 11-21-2021 Functional status [facility] Work Phone: Mental Status Date Assessment Result Facility 09-04-2023 Cognitive function Voice/Name [facility] Work Phone: 07-16-2023 Cognitive function Voice/Name [facility] Work Phone: 09-18-2022 Cognitive function Voice/Name [facility] Work Phone: 11-24-2021 Cognitive function Awake;Alert;A ppropriate;Fol lows Commands [facility] Work Phone: 11-21-2021 Cognitive function Voice/Name [facility] Work Phone: Clinical Notes 09-17-2022 to 03-16-2024 Note Date & Type Note Facility 03-16-2024 Note [facility] Medical Records Department [address] [place] [address] Discharge Summary 03/16/24 1231 MR#: [id number] Acct: [id number] Name: SNEHA WEI JrGiovanny Rep #: [id number] : 1980 43 From: Jordi Perkins DPM PCP: Dr. Liliane Epps DO Status:ADM IN Location: [place] [address] Providers Date of Admission: 03/13/24 Primary Care Physician: Dr. Liliane Epps, Consultations 03/12/24 17:34 Consult: Hospitalist Routine Consulting Provider: Luke Garnett Reason for Consult: medical management/surgical clearance EMERGENT Consult: No Notified: Yes Date Notified: 03/12/24 Time Notified: 17:34 Method of Notification: Verbal Consult: Infectious Disease Routine Consulting Provider: Yoan Vee Reason for Consult: PICC/ABX recommendations EMERGENT Consult: No Notified: Yes Date Notified: 03/12/24 Time Notified: 18:19 Method of Notification: Text Reason For Visit: LEFT ANKLE OSTEOMYELITIS Diagnosis Discharge Diagnosis (1) Osteomyelitis of ankle, left, acute: Status: Acute Code(s): M86.172 - Other acute osteomyelitis, left ankle and foot Plan: Exam performed VSS ID on board; planning PICC IV antibiotics for 6 weeks pending final cultures. Possible Enterococcus species growing in bone and soft tissue. nursing home plan is for a staged procedure Stage I involving infection clearance and stage 2 including definitive stabilization of ankle pending infection clearance in 6-8 weeks IM on board patient weightbearing as tolerated with walker recommend HHC upon DC Medications at Discharge Home Medications multivitamin 1 tab PO DAILY SUPPLEMENT 11/24/21 losartan 25 mg tablet 25 mg PO DAILY BLOOD PRESSURE 09/15/22 semaglutide 14 mg tablet (Rybelsus) 14 mg PO DAILY DIABETES 07/06/23 ascorbic acid (vitamin C) 1,000 mg tablet,extended release (C Complex) 1,000 mg PO DAILY SUPPLEMENT 08/30/23 omega 9-bnb-kyp-fish oil 300 mg-1,000 mg capsule (Fish Oil) 2 cap PO DAILY SUPPLEMENT 08/30/23 pravastatin 80 mg tablet 80 mg PO QHS CHOLESTEROL 08/30/23 vancomycin 1,000 mg intravenous injection 1,250 mg IV Q8H 38 days #114 ea 03/16/24 Hospital Course Summary of Care Provided Hospital Course: patient admitted with an acute abscess and infected hardware to left lateral ankle. Hardware removal, bone debridement, application of external fixation performed on left. ID consulted - patient will get 6 weeks IV vancomycin per PICC line. will plan for home health care dressing changes. Upon infection clearance, will plan for repeat debridement and application of a cancellous chips filled truss to replace talus and allow for TTC fusion. Physical Exam Narrative neurovascular status unchanged lateral left ankle incision at site of abscess well approximated with intact vessel loops. intact medial leg, posterior heel and plantar heel incisions. intact ringed external fixator with intact pin sites Const alert and oriented x3 Weight / BMI Weight Weight: 104.326 kg Body Mass Index (BMI) 33.0 ABG / Lab / Microbiology Data 03/15/24 06:31 03/15/24 06:31 Laboratory: Laboratory Results - last 24 hr 03/15/24 16:39: POC Glucose 136 H 03/15/24 21:46: POC Glucose 121 H 03/16/24 06:59: POC Glucose 120 H 03/16/24 11:48: POC Glucose 121 H Microbiology: Microbiology 03/13/24 11:23 Tissue - Ankle Gram Stain - Final 03/13/24 11:23 Tissue - Ankle Wound Culture - Final Enterococcus faecalis 03/13/24 11:23 Tissue - Ankle Anaerobic Culture - Final No anaerobic bacteria isolated. 03/13/24 11:24 Bone - Left Foot Gram Stain - Final 03/13/24 11:24 Bone - Left Foot Wound Culture - Preliminary Corynebacterium striatum GPC Poss Enterococcus sp 03/13/24 11:24 Bone - Left Foot Anaerobic Culture - Final No anaerobic bacteria isolated. 03/13/24 11:23 Wound Abcess - Aerobic Anaerobic Swabs Gram Stain - Final 03/13/24 11:23 Wound Abcess - Aerobic Anaerobic Swabs Wound Culture - Final Enterococcus faecalis 03/13/24 11:23 Wound Abcess - Aerobic Anaerobic Swabs Anaerobic Culture - Preliminary No growth in 48 hours. Meaningful Use Info Meaningful Use Meaningful Use Diagnoses (Choose all that apply): None applicable Ischemic Stroke Statin Dosing Therapy Reference: STATIN DOSE THERAPY REFERENCE: * Patients > 75 years receive moderate or high dose statin therapy. * Patients 75 years or YOUNGER should receive HIGH intensity statin dose unless contraindicated. You will be required to document reason for non-treatment if statin daily dose does not meet guidelines. HIGH DOSE STATIN THERAPY DAILY Atorvastatin > than or = to 40 mg Rosuvastatin > than or = to 20 mg Amlodipine + Atorvastatin > than or = to 2.5/40 mg Ezetimibe + Simvastatin 10/80 mg Simvastatin 80mg Discharge Plan Admission (more content not included)... [facility] 03-12-2024 Note [facility] Medical Records Department [address] [place] [address] History Physical Exam 03/12/24 1725 MR#: [id number] Acct: [id number] Name: SNEHA WEI Jr. Rep #: [id number] : 1980 43 From: Jordi Perkins DPM PCP: Dr. Liliane Epps, DO Status:ADM RADHA [facility] - General General Date of Admission: 03/12/24 HPI Narrative SNEHA WEI, is a 43 M who presents infected left TTC fusion site status post TTC fusion July 2023 followed by an incision and drainage of abscess with bone in September 01, 2023. Patient was placed on 6 weeks of IV meropenem. Patient's been receiving p.o. ciprofloxacin per infectious disease. Patient denies any fever chills nausea vomit chest pain And shortness of breath. Patient presented to wound care center last week with new onset abscess wound cultures demonstrated growth of Enterococcus faecalis which is same as cultures from September 01, 2023. Decision at that time was made for hospital admission. 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, left, acute Type 2 diabetes mellitus with diabetic polyneuropathy Home Medications ???Medication ???Instructions ???Recorded ???Last Taken ???Type multivitamin 1 tab PO DAILY SUPPLEMENT 11/24/21 03/12/24 History losartan 25 mg tablet 25 mg PO DAILY BLOOD PRESSURE 09/15/22 03/12/24 History semaglutide 14 mg tablet (Rybelsus) 14 mg PO DAILY DIABETES 07/06/23 03/12/24 History ascorbic acid (vitamin C) 1,000 mg 1,000 mg PO DAILY SUPPLEMENT 08/30/23 03/12/24 History tablet,extended release (C Complex) omega 2-tqy-ljz-fish oil 300 2 cap PO DAILY SUPPLEMENT 08/30/23 03/12/24 History mg-1,000 mg capsule (Fish Oil) pravastatin 80 mg tablet 80 mg PO QHS CHOLESTEROL 08/30/23 03/11/24 History levofloxacin 500 mg tablet 500 mg PO DAILY 02/21/24 03/12/24 History cephalexin 750 mg capsule 750 mg PO BID #20 caps 03/06/24 03/12/24 Rx linezolid 600 mg tablet 600 mg PO BID #28 tabs 03/06/24 Unknown Rx Allergy/AdvReac Type Severity Reaction Status Date / Time Penicillins (PCN) Allergy Rash Verified 08/30/23 10:45 Surgical History Hx of foot surgery Hx of foot surgery Hx of eye surgery Social History Smoking Status: Never smoker ROS Constitutional Constitutional: Denies daytime sleepiness, increased appetite or lethargy Eyes Eyes: Denies blind spots, decreased night vision or excessive blinking ENT HEENT: Denies change in voice, dental pain or foreign body in nose Cardiovascular Cardiovascular: Denies abdominal pain, arrhythmia on telemetry or chest pain with activity Respiratory/Chest Respiratory/Chest: Denies change in phlegm color, chest congestion or dyspnea on exertion Vital Signs Vital Signs Vital Signs: 03/12/24 16:50 Temperature 98.7 F Temperature Source Temporal Pulse Rate 65 Respiratory Rate 18 Blood Pressure 143/81 H Blood Pressure Mean 101 Blood Pressure Source Monitor Blood Pressure Position Semi-Fowlers Blood Pressure Location Right Arm Pulse Ox 100 Oxygen Delivery Method Room Air Weight Weight: 104.326 kg Body Mass Index (BMI) 33.0 Physical Exam Narrative Vascular: Dorsalis pedis and posterior tibial pulses palpable 2 out of 4 bilateral lower extremity. Atrophic skin changes noted bilaterally. Neurologic: Absent light touch protective sensation of bilateral lower extremity. Dermatologic: Well-healed medial ankle incision on the left lower extremity wound noted to lateral left ankle scant purulence periwound edema or erythema. Musculoskeletal: Rectus alignment right foot and ankle, rectus alignment left foot and ankle. Fused ankle and subtalar joints. Assessment Plan Assessment/Plan (1) Other acute osteomyelitis, left ankle and foot: PLAN: Exam performed Patient has infected intramedullary nail left lower extremity TTC fusion site Plan for incision and drainage of abscess down to bone, removal intramedullary nail, replacement with antibiotic impregnated bone cement, application of Ilizarov external fixator to left lower extr emity 7:30 AM 03/13/2024 Chest x-ray EKG baseline lab work ordered Internal medicine consulted Infectious disease consulted Patient weightbearing in cam boot left lower extremity a current Patient n.p.o. at midnight Will start Ancef for wound care center cultures covering Enterococcus faecalis (2) Type 2 diabetes mellitus with diabetic polyneuropathy: QUALIFIERS: Diab (more content not included)... [facility] 12-06-2023 Progress note Note Date/Time December 06, 2023 11:13am [facility] [address] [place] [address] Progress Note - Wound Care 12/06/23 1111 MR#: [id number] Acct: [id number] Name: SNEHA WEI Rep #:[id number] : 1980 43 From: Jordi Perkins DPM PCP: Dr. Liliane Epps, DO Status:REG RCR Location: History of Present Illness Date of Service: 12/06/23 Chief Complaint: Diabetic left foot infection with gas gangrene and osteomyelitis; Li grade 3 diabetic foot infection. History of Wound: 43-year-old male status post left Charcot reconstruction. Denies constitutional symptoms. Wound is improving today. Objective Data Objective Data Vital Signs: Vital Signs Temp Pulse Resp BP O2 Del Method O2 Flow Rate 97.6 F L 94 18 145/76 H Room Air 99 12/06/23 10:04 12/06/23 10:04 12/06/23 10:04 12/06/23 10:04 11/15/23 10:49 11/07/23 00:24 Oxygen Flow Rate (L/min) 99 Oxygen Delivery Method Room Air Weight: 113.398 kg Body Mass Index (BMI) 33.9 Physical Exam Narrative Neurovascular status unchanged Lateral left ankle wound healed. Medial ankle incision remains well-approximated with intact sutures. No acute signs of infection. No signs of DVT. rectus hindfoot to leg positioning. slight plantar convexity with forefoot dorsiflexed on hindfoot. Const alert and oriented x3 Debridement Note Debridement Note Post-Debridement Measurements and Additional Note: Post-Debridement Measurements/Treatment - Nurse 1 - General Ulcer Assessment Start: 11/08/23 11:03 Freq: Status: Active Protocol: .LOWEXT Activity Type Activity Date Activity User E-sign Co-sign Detail Recorded Client Recorded Date Recorded By Document 11/08/23 11:03 KW Desktop 11/08/23 11:11 KW Document 11/15/23 10:49 MT Desktop 11/15/23 11:03 MT Document 11/22/23 10:02 RB Desktop 11/22/23 10:06 RB Document 11/29/23 10:05 RB Desktop 11/29/23 10:08 RB Document 12/06/23 10:04 RB Desktop 12/06/23 10:07 RB 11/08/23 11/15/23 11/22/23 11:03 10:49 10:02 - Today's Visit Information Type of service Follow-up Visit Follow-up Visit Follow-up Visit (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 (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 (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 ) ) ) Arrival Mode Wheelchair Ambulatory Ambulatory Transfer Assistance None Accompanied by STEP-FATHER Patient Identification Verified (Name & Yes Yes Yes ) Patient Requires Transmission-Based No Precautions Finger Stick Blood Sugar(mg/dl) (if 115 indicated): Blood Sugar Stated by Patient Height and Weight Body Mass Index (BMI) 33.9 33.9 33.9 BMI Classification Obese Obese Obese Vital Signs Temperature (97.8 F-99.1 F) 96.9 F L 98 F 96.8 F L Temperature Source Temporal Temporal Temporal Pulse Rate (60-100) 93 92 85 Pulse Location Monitor Monitor Monitor Respiratory Rate (12-18) 18 18 18 Respiratory rate source Observation Observation Observation Oxygen Delivery Method Room Air Room Air Blood Pressure (90/60-120/80) 143/75 H 133/80 H 136/77 H Blood Pressure Mean (mm Hg) 97 97 96 Source Monitor Monitor Monitor Position Semi-Fowlers Sitting Semi-Fowlers Blood Pressure Location Left Arm Left Arm Left Arm History Since Last Visit- (Skip if this is Patient's initial visit) Have you changed medications since your No No last visit? Any new allergies or adverse reactions No No Had a fall/change in ADL's that may No No increase risk of falls Signs or symptoms of abuse and/or No No neglect since last visit Have you been in the hospital since your No No last visit? Has dressing in place as prescribed Yes Yes Has compression in place as prescribed Yes Yes Has offloadiing in place as prescribed Yes Yes Experienced any changes in pain level or No No management Left Footwear No Footwear Regular Shoe Right Footwear Regular Shoe Regular Shoe Pain Scale: 0-10 Numeric Is Patient Pain Free? Yes Yes Yes 11/29/23 12/06/23 10:05 10:04 WC - Today's Visit Information Type of service Follow-up Visit Follow-up Visit (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 (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 ) ) Arrival Mode Wheelchair Ambulatory Transfer Assistance None None Accompanied by Patient Identification Verified (Name & Yes Yes ) Patient Requires Transmission-Based No No Precautions Finger Stick Blood Sugar(mg/dl) (if indicated): Blood Sugar Height and Weight Body Mass Index (BMI) 33.9 33.9 BMI Classification Obese Obese Vital Signs Temperature (97.8 F-99.1 F) 97.4 F L 97.6 F L Temperature Source Temporal Temporal Pulse Rate (60-100) 88 94 Pulse Location Monitor Monitor Respiratory Rate (12-18) 18 18 Respiratory rate source Observation Observation Oxygen Delivery Method Blood Pressure (90/60-120/80) 129/77 H 145/76 H Blood Pressure Mean (mm Hg) 94 99 Source Monitor Monitor Position Semi-Fowlers Semi-Fowlers Blood Pressure Location Left Arm Left Arm History Since Last Visit- (Skip if this is Patient's initial visit) Have you changed medications since your No No last visit? Any new allergies or adverse reactions No No Had a fall/change in ADL's that may No No increase risk of falls Signs or symptoms of abuse and/or No No neglect since last visit Have you been in the hospital since your No No last visit? Has dressing in place as prescribed Yes Yes Has compression in place as prescribed Yes Yes Has offloadiing in place as prescribed No No Experienced any changes in pain level or No No management Left Footwear Right Footwear Pain Scale: 0-10 Numeric Is Patient Pain Free? Yes Yes WC - Nurse 1 - General Ulcer Measurement Start: 11/08/23 11:03 Freq: Status: Active Protocol: Activity Type Activity Date Activity User E-sign Co-sign Detail Recorded Client Recorded Date Recorded By Document 11/08/23 11:03 KW Desktop 11/08/23 11:11 KW Document 11/15/23 10:49 MT Desktop 11/15/23 11:03 MT Document 11/22/23 10:02 RB Desktop 11/22/23 10:06 RB Document 11/29/23 10:05 RB Desktop 11/29/23 10:08 RB Document 12/06/23 10:04 RB Desktop 12/06/23 10:07 RB 11/08/23 11/15/23 11/22/23 11:03 10:49 10:02 Wound Center Nurse 1 7. L lateral ankle superior -Combined with other wound No -Current Size (cm) - Length 0.1 0.2 -Current Size (cm) - Width 0.1 0.6 -Current Size (cm) - Depth 0.1 2 -Total Square Cm 0.01 0.12 -Epithelialization Large 67-100% -Tunneling No -Undermining/Tunneling No -Circular Undermining No -Exudate Amt None Present Medium -Exudate Type Serosanguineous -Wound Margin Distinct, Outline Attached -Granulation Amt Medium (34-66%) -Granulation Quality [employer] -Slough/Fibrin Yes -Necrosis Amt Medium (34-66%) -Necrotic Tissue Type Adherent Slough -Structure Exposed N/A -Texture ([place]-wound Skin Appearance) Assessed, Scarring -Moisture ([place]-wound Skin Appearance) Dry/Scaly Assessed -Color ([place]-wound Skin Appearance) No Abnormality Assessed -Temperature ([place]-wound Skin No Abnormality No Abnormality Appearance) (Pt Warm) (Pt Warm) -Tenderness on Palpation ([place]-wound No Skin Appearance) -Ulcer Cleansing Rinsed/ Wound Cleanser Irrigated with Saline -Foul Odor after Cleansing No No -Anesthetic Used 5% Lidocaine 5% Lidocaine Gel Gel -Wound Comment(s) 6. L medial ankle -Combined with other wound No -Current Size (cm) - Length 0.8 1.0 0.3 -Current Size (cm) - Width 0.1 0.4 0.3 -Current Size (cm) - Depth 1.1 2.2 0.4 -Total Square Cm 0.08 0.40 0.09 -Epithelialization None Present -Tunneling No -Undermining/Tunneling Yes No -Undermining/Tunneling Starts (O'clock 2 ) -Undermining/Tunneling Ends (O'clock) 3 -Maximum Distance (cm) 1.5 -Circular Undermining No -Exudate Amt Medium Medium Medium -Exudate Type Serosanguineous Sanguineous Serosanguineous -Wound Margin Thickened Flat & Intact Distinct, Outline Attached -Granulation Amt Large (67-100%) Large (67-100%) Medium (34-66%) -Granulation Quality Red Pale,[employer] -Slough/Fibrin Yes No Yes -Necrosis Amt Small (1-33%) Medium (34-66%) -Necrotic Tissue Type Adherent Slough Adherent Slough -Structure Exposed N/A -Texture ([place]-wound Skin Appearance) No Abnormality Assessed Scarring -Moisture ([place]-wound Skin Appearance) No Abnormality Assessed Assessed -Color ([place]-wound Skin Appearance) No Abnormality Assessed Not Assessed -Temperature ([place]-wound Skin No Abnormality No Abnormality No Abnormality Appearance) (Pt Warm) (Pt Warm) (Pt Warm) -Tenderness on Palpation ([place]-wound No No No Skin Appearance) -Ulcer Cleansing Rinsed/ Soap and Water Wound Cleanser Irrigated with Saline -Foul Odor after Cleansing No No -Anesthetic Used 4% Lidocaine 5% Lidocaine 5% Lidocaine Solution Gel Gel Lower Limb Edema Present Yes Left Calf (cm) 34 Left Ankle (cm) 24.2 11/29/23 12/06/23 10:05 10:04 Wound Center Nurse 1 7. L lateral ankle superior -Combined with other wound No No -Current Size (cm) - Length 0.1 0.1 -Current Size (cm) - Width 0.1 0.1 -Current Size (cm) - Depth 0.1 0.1 -Total Square Cm 0.01 0.01 -Epithelialization -Tunneling No No -Undermining/Tunneling No No -Circular Undermining No No -Exudate Amt Medium Medium -Exudate Type Serosanguineous Serosanguineous -Wound Margin Distinct, Distinct, Outline Outline Attached Attached -Granulation Amt Medium (34-66%) Medium (34-66%) -Granulation Quality [employer] -Slough/Fibrin Yes Yes -Necrosis Amt Medium (34-66%) Medium (34-66%) -Necrotic Tissue Type Adherent Slough Adherent Slough -Structure Exposed N/A N/A -Texture ([place]-wound Skin Appearance) Assessed, Assessed Scarring -Moisture ([place]-wound Skin Appearance) Assessed Assessed -Color ([place]-wound Skin Appearance) Assessed Assessed -Temperature ([place]-wound Skin No Abnormality No Abnormality Appearance) (Pt Warm) (Pt Warm) -Tenderness on Palpation ([place]-wound No No Skin Appearance) -Ulcer Cleansing Wound Cleanser Wound Cleanser -Foul Odor after Cleansing No No -Anesthetic Used 5% Lidocaine 5% Lidocaine Gel Gel -Wound Comment(s) two sutures intact 6. L medial ankle -Combined with other wound No No -Current Size (cm) - Length 0.2 0.1 -Current Size (cm) - Width 0.7 0.1 -Current Size (cm) - Depth 3.5 0.1 -Total Square Cm 0.14 0.01 -Epithelialization -Tunneling No No -Undermining/Tunneling No No -Undermining/Tunneling Starts (O'clock ) -Undermining/Tunneling Ends (O'clock) -Maximum Distance (cm) -Circular Undermining No No -Exudate Amt Medium Medium -Exudate Type Serosanguineous Serosanguineous -Wound Margin Distinct, Distinct, Outline Outline Attached Attached -Granulation Amt Medium (34-66%) Medium (34-66%) -Granulation Quality [employer] -Slough/Fibrin Yes Yes -Necrosis Amt Medium (34-66%) Medium (34-66%) -Necrotic Tissue Type Adherent Slough Adherent Slough -Structure Exposed N/A N/A -Texture ([place]-wound Skin Appearance) Assessed Assessed -Moisture ([place]-wound Skin Appearance) Assessed Assessed -Color ([place]-wound Skin Appearance) Assessed Assessed -Temperature ([place]-wound Skin No Abnormality No Abnormality Appearance) (Pt Warm) (Pt Warm) -Tenderness on Palpation ([place]-wound No No Skin Appearance) -Ulcer Cleansing Wound Cleanser Wound Cleanser -Foul Odor after Cleansing No No -Anesthetic Used 5% Lidocaine 5% Lidocaine Gel Gel Lower Limb Edema Present Yes Yes Left Calf (cm) 36 34.5 Left Ankle (cm) 23.5 24 WC - Nurse 2 - General Ulcer CM Notes Start: 11/08/23 11:03 Freq: Status: Active Protocol: Activity Type Activity Date Activity User E-sign Co-sign Detail Recorded Client Recorded Date Recorded By Document 11/08/23 11:26 JF Laptop 11/08/23 11:28 JF Document 11/15/23 11:13 JF Laptop 11/15/23 11:22 JF Document 11/22/23 10:19 JF Laptop 11/22/23 10:25 JF Document 11/29/23 10:23 JF Laptop 11/29/23 10:25 JF Edit Result 11/29/23 10:23 JF (1) Laptop 12/05/23 15:26 JF Document 12/06/23 10:35 JF Laptop 12/06/23 10:36 JF (1) 6. L medial ankle - Debridement - Subq, 1st 20sq cm Yes => No 11/08/23 11/15/23 11/22/23 11:26 11:13 10:19 Wound Center Nurse 2 7. L lateral ankle superior -Time 11:14 10:20 -Correct Patient No Yes Yes -Correct Side, Site, Position No Yes Yes -Correct Procedure No Yes Yes -Procedure Performed No Yes Yes -Type of Procedure Debridement Debridement -Clinical Debridement Subcutaneous Subcutaneous -Tissue Removed Subcutaneous Subcutaneous -Post Debridement (cm) - Length 0 0.5 1.0 -Post Debridement (cm) - Width 0 0.3 0.5 -Post Debridement (cm) - Depth 0 0.2 0.8 -Total Square (Post) (cm) 0 0.15 0.50 -Area of Debridement (cm) - Length 0 0.5 1.0 -Area of Debridement (cm) - Width 0 0.3 0.5 -Total Square (Area) (cm) 0 0.15 0.50 -Tunneling No No -Undermining/Tunneling No No -Circular Undermining No No -Wound/Ulcer Outcome Healed- Not Healed Not Healed Epithelialized -Ulcer Cleansing Rinsed/ Irrigated with Saline -Foul Odor after Cleansing No -Bioengineered Tissue No -Bleeding Controlled with Pressure Pressure -Treatment Response Procedure Procedure Tolerated Well Tolerated Well -Offloading No No -Debridement - Subq, 1st 20sq cm Yes No 6. L medial ankle -Time 11:26 11:13 10:21 -Correct Patient Yes Yes Yes -Correct Side, Site, Position Yes Yes Yes -Correct Procedure Yes Yes Yes -Procedure Performed Yes Yes Yes -Type of Procedure Debridement Debridement Debridement -Clinical Debridement Subcutaneous Subcutaneous Subcutaneous -Tissue Removed Subcutaneous Subcutaneous Subcutaneous -Post Debridement (cm) - Length 0.8 1.0 1.0 -Post Debridement (cm) - Width 0.2 0.5 0.1 -Post Debridement (cm) - Depth 1.1 2.2 2.0 -Total Square (Post) (cm) 0.16 0.50 0.10 -Area of Debridement (cm) - Length 0.8 1 1.0 -Area of Debridement (cm) - Width 0.2 0.5 0.1 -Total Square (Area) (cm) 0.16 0.5 0.10 -Tunneling No No No -Undermining/Tunneling No No -Circular Undermining No No No -Wound/Ulcer Outcome Not Healed Not Healed Not Healed -Ulcer Cleansing Rinsed/ Rinsed/ Rinsed/ Irrigated with Irrigated with Irrigated with Saline Saline Saline -Foul Odor after Cleansing No No No -Bioengineered Tissue No No No -Bleeding Controlled with Pressure Pressure Pressure -Treatment Response Procedure Procedure Procedure Tolerated Well Tolerated Well Tolerated Well -Offloading Yes No No -Type of Offloading Surgical Shoe -Assistive Device(s) Walker -Debridement - Subq, 1st 20sq cm Yes No Yes Pain Scale: 0-10 Numeric Is Patient Pain Free? Yes Yes Yes 11/29/23 12/06/23 10:23 10:35 Wound Center Nurse 2 7. L lateral ankle superior -Time -Correct Patient No No -Correct Side, Site, Position No No -Correct Procedure No No -Procedure Performed No No -Type of Procedure -Clinical Debridement -Tissue Removed -Post Debridement (cm) - Length 0.1 0 -Post Debridement (cm) - Width 0.1 0 -Post Debridement (cm) - Depth 0.1 0 -Total Square (Post) (cm) 0.01 0 -Area of Debridement (cm) - Length 0.1 0 -Area of Debridement (cm) - Width 0.1 0 -Total Square (Area) (cm) 0.01 0 -Tunneling -Undermining/Tunneling -Circular Undermining -Wound/Ulcer Outcome Not Healed Healed- Epithelialized -Ulcer Cleansing -Foul Odor after Cleansing -Bioengineered Tissue -Bleeding Controlled with -Treatment Response -Offloading -Debridement - Subq, 20sq cm 6. L medial ankle -Time 10:24 -Correct Patient Yes No -Correct Side, Site, Position Yes No -Correct Procedure Yes No -Procedure Performed Yes No -Type of Procedure Debridement -Clinical Debridement Subcutaneous -Tissue Removed Subcutaneous -Post Debridement (cm) - Length 0.1 0.1 -Post Debridement (cm) - Width 0.1 0.1 -Post Debridement (cm) - Depth 2.5 0.1 -Total Square (Post) (cm) 0.01 0.01 -Area of Debridement (cm) - Length 0.1 0.1 -Area of Debridement (cm) - Width 0.1 0.1 -Total Square (Area) (cm) 0.01 0.01 -Tunneling No -Undermining/Tunneling No -Circular Undermining No -Wound/Ulcer Outcome Not Healed Not Healed -Ulcer Cleansing Rinsed/ Irrigated with Saline -Foul Odor after Cleansing No -Bioengineered Tissue No -Bleeding Controlled with Pressure -Treatment Response Procedure Tolerated Well -Offloading No -Type of Offloading -Assistive Device(s) -Debridement - Subq, 20sq cm No Pain Scale: 0-10 Numeric Is Patient Pain Free? Yes Yes WC - Nurse 3 - General Ulcer D/C NN Start: 11/08/23 11:03 Freq: Status: Active Protocol: Activity Type Activity Date Activity User E-sign Co-sign Detail Recorded Client Recorded Date Recorded By Document 11/08/23 11:35 KW Desktop 11/08/23 11:35 KW Document 11/15/23 11:27 KW Desktop 11/15/23 11:31 KW Document 11/22/23 10:41 RB Desktop 11/22/23 10:42 RB Document 11/29/23 10:48 RB Desktop 11/29/23 10:48 RB Document 12/06/23 10:53 KW Desktop 12/06/23 10:54 KW 11/08/23 11/15/23 11/22/23 11:35 11:27 10:41 Wound Care Center Nurse 3 7. L lateral ankle superior -Ulcer Cleansing Rinsed/ Irrigated with Saline -Primary Dressing Applied Optilok 6.5x10 -Primary Dressing Covered/Secured with Dry Gauze Dry Gauze & Roll Gauze -Other Covering -Optilok 6.5x10 1 6. L medial ankle -Ulcer Cleansing Rinsed/ Irrigated with Saline -Primary Dressing Applied Nugauze, Plain Optilok 6.5x10 1/4in -Other Dressing nugauze moistened with dakins packed into wound -Primary Dressing Covered/Secured with Dry Gauze & Dry Gauze & Dry Gauze & Roll Gauze, Roll Gauze, Roll Gauze, Secured with Secured with Secured with Tape Tape Tape -Nugauze, Plain 1/4in 1 -Optilok 6.5x10 1 Left -Multi-Layered Wrap Application Multi-Layer Multi-Layer Comp - Left ($) Comp - Left ($) -Compression Wrap Martha Wrap Treatment Response Procedure Tolerated Well Pain Scale: 0-10 Numeric Is Patient Pain Free? Yes Yes Yes WC - Visit Discharge Discharge Condition Stable Stable Stable Ambulatory Status Wheelchair Wheelchair Wheelchair Transportation Private Auto Private Auto Private Auto Medication Reconcilliation completed & No No No provided to patient/care provider Clinical Summary of Care Provided Yes Yes Yes 11/29/23 12/06/23 10:48 10:53 Wound Care Center Nurse 3 7. L lateral ankle superior -Ulcer Cleansing betadine -Primary Dressing Applied -Primary Dressing Covered/Secured with -Other Covering abd -Optilok 6.5x10 6. L medial ankle -Ulcer Cleansing -Primary Dressing Applied NonAdherent NonAdherent Contact Layer Contact Layer -Other Dressing betadine gauze -Primary Dressing Covered/Secured with Dry Gauze & Roll Gauze, Secured with Tape -Nugauze, Plain 1/4in -Optilok 6.5x10 Left -Multi-Layered Wrap Application Multi-Layer Multi-Layer Comp - Left ($) Comp - Left ($) -Compression Wrap Treatment Response Pain Scale: 0-10 Numeric Is Patient Pain Free? Yes Yes WC - Visit Discharge Discharge Condition Stable Stable Ambulatory Status Wheelchair Wheelchair Transportation Private Auto Private Auto Medication Reconcilliation completed & No No provided to patient/care provider Clinical Summary of Care Provided Yes Yes Assessment/Plan Assessment/Plan (1) Osteomyelitis of ankle, left, acute: CODE(S): M86.172 - Other acute osteomyelitis, left ankle and foot PLAN: Exam performed Patient great completed 6 weeks IV antibiotics*(meropenem) for osteomyelitis left foot. Left lateral ankle wound healed. Incisional site to medial ankle well-approximated with intact sutures. Redressed with antibiotic ointment Adaptic 3M compression wrap. Radiographs reordered. Patient will continue nonweightbearing Patient follow-up in 1 week (2) Charcot foot due to diabetes mellitus: CODE(S): E11.610 - 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 arthropathy (3) Abscess of bursa, left ankle and foot: CODE(S): M71.072 - Abscess of bursa, left ankle and foot (4) Cellulitis of left lower limb: CODE(S): L03.116 - Cellulitis of left lower limb (5) Non-pressure chronic ulcer of left 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: CODE(S): L97.322 - Non-pressure chronic ulcer of left 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 (6) Type 2 diabetes mellitus with diabetic polyneuropathy: CODE(S): E11.42 - Type 2 diabetes mellitus with diabetic polyneuropathy QUALIFIERS: Diabetes mellitus salvage determiner insulin use: without nursing home use Qualified Code(s): E11.42 - Type 2 diabetes mellitus with diabetic polyneuropathy 12/06/23 1113 <Electronically signed by Jordi Perkins DPM> Cosigner Signature (if applicable): CC: ~ Signed [facility] Work Phone: [phone]) 645-293204-23-2024 Progress note Author Jordi Perkins [facility] November 29, 2023 10:33am Note Date/Time November 29, 2023 10: 33am [facility] [address] [place] [id number] Progress Note - Wound Care 11/29/23 1030 MR#: [id number] Acct: [id number] Name: SNEHA WEI Jr. Rep #:[id number] : 1980 43 From: Jordi Perkins DPM PCP: Dr. Liliane Epps, DO Status:REG RCR Location: History of Present Illness Date of Service: 11/29/23 Chief Complaint: Diabetic left foot infection with gas gangrene and osteomyelitis; Il grade 3 diabetic foot infection. History of Wound: 43-year-old male status post left Charcot reconstruction. Denies constitutional symptoms. Wound is improving today. Objective Data Objective Data Vital Signs: Vital Signs Temp Pulse Resp BP O2 Del Method O2 Flow Rate 97.4 F L 88 18 129/77 H Room Air 99 11/29/23 10:05 11/29/23 10:05 11/29/23 10:05 11/29/23 10:05 11/15/23 10:49 11/07/23 00:24 Oxygen Flow Rate (L/min) 99 Oxygen Delivery Method Room Air Weight: 113.398 kg Body Mass Index (BMI) 33.9 Physical Exam Narrative Neurovascular status unchanged Full-thickness wounds to medial ankle, no residual purulence. Lateral ankle full thickness to subcutaneous tissue to superior aspect of ankle. No acute signs of infection. No signs of DVT. rectus hindfoot to leg positioning. slight plantar convexity with forefoot dorsiflexed on hindfoot. Const alert and oriented x3 Debridement Note Debridement Note Post-Debridement Measurements and Additional Note: Post-Debridement Measurements/Treatment - Nurse 1 - General Ulcer Assessment Start: 11/08/23 11:03 Freq: Status: Active Protocol: [email or web address] Activity Type Activity Date Activity User E-sign Co-sign Detail Recorded Client Recorded Date Recorded By Document 11/08/23 11:03 KW Desktop 11/08/23 11:11 KW Document 11/15/23 10:49 MT Desktop 11/15/23 11:03 MT Document 11/22/23 10:02 RB Desktop 11/22/23 10:06 RB Document 11/29/23 10:05 RB Desktop 11/29/23 10:08 RB 11/08/23 11/15/23 11/22/23 11:03 10:49 10:02 - Today's Visit Information Type of service Follow-up Visit Follow-up Visit Follow-up Visit (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 (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 (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 ) ) ) Arrival Mode Wheelchair Ambulatory Ambulatory Transfer Assistance None Accompanied by STEP-FATHER Patient Identification Verified (Name & Yes Yes Yes ) Patient Requires Transmission-Based No Precautions Finger Stick Blood Sugar(mg/dl) (if 115 indicated): Blood Sugar Stated by Patient Height and Weight Body Mass Index (BMI) 33.9 33.9 33.9 BMI Classification Obese Obese Obese Vital Signs Temperature (97.8 F-99.1 F) 96.9 F L 98 F 96.8 F L Temperature Source Temporal Temporal Temporal Pulse Rate (60-100) 93 92 85 Pulse Location Monitor Monitor Monitor Respiratory Rate (12-18) 18 18 18 Respiratory rate source Observation Observation Observation Oxygen Delivery Method Room Air Room Air Blood Pressure (90/60-120/80) 143/75 H 133/80 H 136/77 H Blood Pressure Mean (mm Hg) 97 97 96 Source Monitor Monitor Monitor Position Semi-Fowlers Sitting Semi-Fowlers Blood Pressure Location Left Arm Left Arm Left Arm History Since Last Visit- (Skip if this is Patient's initial visit) Have you changed medications since your No No last visit? Any new allergies or adverse reactions No No Had a fall/change in ADL's that may No No increase risk of falls Signs or symptoms of abuse and/or No No neglect since last visit Have you been in the hospital since your No No last visit? Has dressing in place as prescribed Yes Yes Has compression in place as prescribed Yes Yes Has offloadiing in place as prescribed Yes Yes Experienced any changes in pain level or No No management Left Footwear No Footwear Regular Shoe Right Footwear Regular Shoe Regular Shoe Pain Scale: 0-10 Numeric Is Patient Pain Free? Yes Yes Yes 11/29/23 10:05 - Today's Visit Information Type of service Follow-up Visit (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 ) Arrival Mode Wheelchair Transfer Assistance None Accompanied by Patient Identification Verified (Name & Yes ) Patient Requires Transmission-Based No Precautions Finger Stick Blood Sugar(mg/dl) (if indicated): Blood Sugar Height and Weight Body Mass Index (BMI) 33.9 BMI Classification Obese Vital Signs Temperature (97.8 F-99.1 F) 97.4 F L Temperature Source Temporal Pulse Rate (60-100) 88 Pulse Location Monitor Respiratory Rate (12-18) 18 Respiratory rate source Observation Oxygen Delivery Method Blood Pressure (90/60-120/80) 129/77 H Blood Pressure Mean (mm Hg) 94 Source Monitor Position Semi-Fowlers Blood Pressure Location Left Arm History Since Last Visit- (Skip if this is Patient's initial visit) Have you changed medications since your No last visit? Any new allergies or adverse reactions No Had a fall/change in ADL's that may No increase risk of falls Signs or symptoms of abuse and/or No neglect since last visit Have you been in the hospital since your No last visit? Has dressing in place as prescribed Yes Has compression in place as prescribed Yes Has offloadiing in place as prescribed No Experienced any changes in pain level or No management Left Footwear Right Footwear Pain Scale: 0-10 Numeric Is Patient Pain Free? Yes WC - Nurse 1 - General Ulcer Measurement Start: 11/08/23 11:03 Freq: Status: Active Protocol: Activity Type Activity Date Activity User E-sign Co-sign Detail Recorded Client Recorded Date Recorded By Document 11/08/23 11:03 KW Desktop 11/08/23 11:11 KW Document 11/15/23 10:49 MT Desktop 11/15/23 11:03 MT Document 11/22/23 10:02 RB Desktop 11/22/23 10:06 RB Document 11/29/23 10:05 RB Desktop 11/29/23 10:08 RB 11/08/23 11/15/23 11/22/23 11:03 10:49 10:02 Wound Center Nurse 1 7. L lateral ankle superior -Combined with other wound No -Current Size (cm) - Length 0.1 0.2 -Current Size (cm) - Width 0.1 0.6 -Current Size (cm) - Depth 0.1 2 -Total Square Cm 0.01 0.12 -Epithelialization Large 67-100% -Tunneling No -Undermining/Tunneling No -Circular Undermining No -Exudate Amt None Present Medium -Exudate Type Serosanguineous -Wound Margin Distinct, Outline Attached -Granulation Amt Medium (34-66%) -Granulation Quality [employer] -Slough/Fibrin Yes -Necrosis Amt Medium (34-66%) -Necrotic Tissue Type Adherent Slough -Structure Exposed N/A -Texture ([place]-wound Skin Appearance) Assessed, Scarring -Moisture ([place]-wound Skin Appearance) Dry/Scaly Assessed -Color ([place]-wound Skin Appearance) No Abnormality Assessed -Temperature ([place]-wound Skin No Abnormality No Abnormality Appearance) (Pt Warm) (Pt Warm) -Tenderness on Palpation ([place]-wound No Skin Appearance) -Ulcer Cleansing Rinsed/ Wound Cleanser Irrigated with Saline -Foul Odor after Cleansing No No -Anesthetic Used 5% Lidocaine 5% Lidocaine Gel Gel 6. L medial ankle -Combined with other wound No -Current Size (cm) - Length 0.8 1.0 0.3 -Current Size (cm) - Width 0.1 0.4 0.3 -Current Size (cm) - Depth 1.1 2.2 0.4 -Total Square Cm 0.08 0.40 0.09 -Epithelialization None Present -Tunneling No -Undermining/Tunneling Yes No -Undermining/Tunneling Starts (O'clock 2 ) -Undermining/Tunneling Ends (O'clock) 3 -Maximum Distance (cm) 1.5 -Circular Undermining No -Exudate Amt Medium Medium Medium -Exudate Type Serosanguineous Sanguineous Serosanguineous -Wound Margin Thickened Flat & Intact Distinct, Outline Attached -Granulation Amt Large (67-100%) Large (67-100%) Medium (34-66%) -Granulation Quality Red Pale,[employer] -Slough/Fibrin Yes No Yes -Necrosis Amt Small (1-33%) Medium (34-66%) -Necrotic Tissue Type Adherent Slough Adherent Slough -Structure Exposed N/A -Texture ([place]-wound Skin Appearance) No Abnormality Assessed Scarring -Moisture ([place]-wound Skin Appearance) No Abnormality Assessed Assessed -Color ([place]-wound Skin Appearance) No Abnormality Assessed Not Assessed -Temperature ([place]-wound Skin No Abnormality No Abnormality No Abnormality Appearance) (Pt Warm) (Pt Warm) (Pt Warm) -Tenderness on Palpation ([place]-wound No No No Skin Appearance) -Ulcer Cleansing Rinsed/ Soap and Water Wound Cleanser Irrigated with Saline -Foul Odor after Cleansing No No -Anesthetic Used 4% Lidocaine 5% Lidocaine 5% Lidocaine Solution Gel Gel Lower Limb Edema Present Yes Left Calf (cm) 34 Left Ankle (cm) 24.2 11/29/23 10:05 Wound Center Nurse 1 7. L lateral ankle superior -Combined with other wound No -Current Size (cm) - Length 0.1 -Current Size (cm) - Width 0.1 -Current Size (cm) - Depth 0.1 -Total Square Cm 0.01 -Epithelialization -Tunneling No -Undermining/Tunneling No -Circular Undermining No -Exudate Amt Medium -Exudate Type Serosanguineous -Wound Margin Distinct, Outline Attached -Granulation Amt Medium (34-66%) -Granulation Quality [employer] -Slough/Fibrin Yes -Necrosis Amt Medium (34-66%) -Necrotic Tissue Type Adherent Slough -Structure Exposed N/A -Texture ([place]-wound Skin Appearance) Assessed, Scarring -Moisture ([place]-wound Skin Appearance) Assessed -Color ([place]-wound Skin Appearance) Assessed -Temperature ([place]-wound Skin No Abnormality Appearance) (Pt Warm) -Tenderness on Palpation ([place]-wound No Skin Appearance) -Ulcer Cleansing Wound Cleanser -Foul Odor after Cleansing No -Anesthetic Used 5% Lidocaine Gel 6. L medial ankle -Combined with other wound No -Current Size (cm) - Length 0.2 -Current Size (cm) - Width 0.7 -Current Size (cm) - Depth 3.5 -Total Square Cm 0.14 -Epithelialization -Tunneling No -Undermining/Tunneling No -Undermining/Tunneling Starts (O'clock ) -Undermining/Tunneling Ends (O'clock) -Maximum Distance (cm) -Circular Undermining No -Exudate Amt Medium -Exudate Type Serosanguineous -Wound Margin Distinct, Outline Attached -Granulation Amt Medium (34-66%) -Granulation Quality [employer] -Slough/Fibrin Yes -Necrosis Amt Medium (34-66%) -Necrotic Tissue Type Adherent Slough -Structure Exposed N/A -Texture ([place]-wound Skin Appearance) Assessed -Moisture ([place]-wound Skin Appearance) Assessed -Color ([place]-wound Skin Appearance) Assessed -Temperature ([place]-wound Skin No Abnormality Appearance) (Pt Warm) -Tenderness on Palpation ([place]-wound No Skin Appearance) -Ulcer Cleansing Wound Cleanser -Foul Odor after Cleansing No -Anesthetic Used 5% Lidocaine Gel Lower Limb Edema Present Yes Left Calf (cm) 36 Left Ankle (cm) 23.5 WC - Nurse 2 - General Ulcer CM Notes Start: 04/02/24 11:03 Freq: Status: Active Protocol: Activity Type Activity Date Activity User E-sign Co-sign Detail Recorded Client Recorded Date Recorded By Document 11/08/23 11:26 Laptop 11/08/23 11:28 Document 11/15/23 11:13 Laptop 11/15/23 11:22 Document 11/22/23 10:19 Laptop 11/22/23 10:25 Document 11/29/23 10:23 Laptop 11/29/23 10:25 11/08/23 11/15/23 11/22/23 11:26 11:13 10:19 Wound Center Nurse 2 7. L lateral ankle superior -Time 11:14 10:20 -Correct Patient No Yes Yes -Correct Side, Site, Position No Yes Yes -Correct Procedure No Yes Yes -Procedure Performed No Yes Yes -Type of Procedure Debridement Debridement -Clinical Debridement Subcutaneous Subcutaneous -Tissue Removed Subcutaneous Subcutaneous -Post Debridement (cm) - Length 0 0.5 1.0 -Post Debridement (cm) - Width 0 0.3 0.5 -Post Debridement (cm) - Depth 0 0.2 0.8 -Total Square (Post) (cm) 0 0.15 0.50 -Area of Debridement (cm) - Length 0 0.5 1.0 -Area of Debridement (cm) - Width 0 0.3 0.5 -Total Square (Area) (cm) 0 0.15 0.50 -Tunneling No No -Undermining/Tunneling No No -Circular Undermining No No -Wound/Ulcer Outcome Healed- Not Healed Not Healed Epithelialized -Ulcer Cleansing Rinsed/ Irrigated with Saline -Foul Odor after Cleansing No -Bioengineered Tissue No -Bleeding Controlled with Pressure Pressure -Treatment Response Procedure Procedure Tolerated Well Tolerated Well -Offloading No No -Debridement - Subq, 1st 20sq cm Yes No 6. L medial ankle -Time 11:26 11:13 10:21 -Correct Patient Yes Yes Yes -Correct Side, Site, Position Yes Yes Yes -Correct Procedure Yes Yes Yes -Procedure Performed Yes Yes Yes -Type of Procedure Debridement Debridement Debridement -Clinical Debridement Subcutaneous Subcutaneous Subcutaneous -Tissue Removed Subcutaneous Subcutaneous Subcutaneous -Post Debridement (cm) - Length 0.8 1.0 1.0 -Post Debridement (cm) - Width 0.2 0.5 0.1 -Post Debridement (cm) - Depth 1.1 2.2 2.0 -Total Square (Post) (cm) 0.16 0.50 0.10 -Area of Debridement (cm) - Length 0.8 1 1.0 -Area of Debridement (cm) - Width 0.2 0.5 0.1 -Total Square (Area) (cm) 0.16 0.5 0.10 -Tunneling No No No -Undermining/Tunneling No No -Circular Undermining No No No -Wound/Ulcer Outcome Not Healed Not Healed Not Healed -Ulcer Cleansing Rinsed/ Rinsed/ Rinsed/ Irrigated with Irrigated with Irrigated with Saline Saline Saline -Foul Odor after Cleansing No No No -Bioengineered Tissue No No No -Bleeding Controlled with Pressure Pressure Pressure -Treatment Response Procedure Procedure Procedure Tolerated Well Tolerated Well Tolerated Well -Offloading Yes No No -Type of Offloading Surgical Shoe -Assistive Device(s) Walker -Debridement - Subq, 20sq cm Yes No Yes Pain Scale: 0-10 Numeric Is Patient Pain Free? Yes Yes Yes 11/29/23 10:23 Wound Center Nurse 2 7. L lateral ankle superior -Time -Correct Patient No -Correct Side, Site, Position No -Correct Procedure No -Procedure Performed No -Type of Procedure -Clinical Debridement -Tissue Removed -Post Debridement (cm) - Length 0.1 -Post Debridement (cm) - Width 0.1 -Post Debridement (cm) - Depth 0.1 -Total Square (Post) (cm) 0.01 -Area of Debridement (cm) - Length 0.1 -Area of Debridement (cm) - Width 0.1 -Total Square (Area) (cm) 0.01 -Tunneling -Undermining/Tunneling -Circular Undermining -Wound/Ulcer Outcome Not Healed -Ulcer Cleansing -Foul Odor after Cleansing -Bioengineered Tissue -Bleeding Controlled with -Treatment Response -Offloading -Debridement - Subq, 20sq cm 6. L medial ankle -Time 10:24 -Correct Patient Yes -Correct Side, Site, Position Yes -Correct Procedure Yes -Procedure Performed Yes -Type of Procedure Debridement -Clinical Debridement Subcutaneous -Tissue Removed Subcutaneous -Post Debridement (cm) - Length 0.1 -Post Debridement (cm) - Width 0.1 -Post Debridement (cm) - Depth 2.5 -Total Square (Post) (cm) 0.01 -Area of Debridement (cm) - Length 0.1 -Area of Debridement (cm) - Width 0.1 -Total Square (Area) (cm) 0.01 -Tunneling No -Undermining/Tunneling No -Circular Undermining No -Wound/Ulcer Outcome Not Healed -Ulcer Cleansing Rinsed/ Irrigated with Saline -Foul Odor after Cleansing No -Bioengineered Tissue No -Bleeding Controlled with Pressure -Treatment Response Procedure Tolerated Well -Offloading No -Type of Offloading -Assistive Device(s) -Debridement - Subq, 1st 20sq cm Yes Pain Scale: 0-10 Numeric Is Patient Pain Free? Yes WC - Nurse 3 - General Ulcer D/C NN Start: 11/08/23 11:03 Freq: Status: Active Protocol: Activity Type Activity Date Activity User E-sign Co-sign Detail Recorded Client Recorded Date Recorded By Document 11/08/23 11:35 KW Desktop 11/08/23 11:35 KW Document 11/15/23 11:27 KW Desktop 11/15/23 11:31 KW Document 11/22/23 10:41 RB Desktop 11/22/23 10:42 RB 11/08/23 11/15/23 11/22/23 11:35 11:27 10:41 Wound Care Center Nurse 3 7. L lateral ankle superior -Ulcer Cleansing Rinsed/ Irrigated with Saline -Primary Dressing Applied Optilok 6.5x10 -Primary Dressing Covered/Secured with Dry Gauze Dry Gauze & Roll Gauze -Optilok 6.5x10 1 6. L medial ankle -Ulcer Cleansing Rinsed/ Irrigated with Saline -Primary Dressing Applied Nugauze, Plain Optilok 6.5x10 1/4in -Other Dressing nugauze moistened with dakins packed into wound -Primary Dressing Covered/Secured with Dry Gauze & Dry Gauze & Dry Gauze & Roll Gauze, Roll Gauze, Roll Gauze, Secured with Secured with Secured with Tape Tape Tape -Nugauze, Plain 1/4in 1 -Optilok 6.5x10 1 Left -Multi-Layered Wrap Application Multi-Layer Multi-Layer Comp - Left ($) Comp - Left ($) -Compression Wrap Martha Wrap Treatment Response Procedure Tolerated Well Pain Scale: 0-10 Numeric Is Patient Pain Free? Yes Yes Yes WC - Visit Discharge Discharge Condition Stable Stable Stable Ambulatory Status Wheelchair Wheelchair Wheelchair Transportation Private Auto Private Auto Private Auto Medication Reconcilliation completed & No No No provided to patient/care provider Clinical Summary of Care Provided Yes Yes Yes Assessment/Plan Assessment/Plan (1) Osteomyelitis of ankle, left, acute: CODE(S): M86.172 - Other acute osteomyelitis, left ankle and foot PLAN: Exam performed Patient great completed 6 weeks IV antibiotics*(meropenem) for osteomyelitis left foot. Left lateral ankle wound healed. Delayed primary closure to left medial ankle wound: Surgeon: Jordi Perkins D.P.M. Search Manager: None Preoperative diagnosis: Left medial ankle wound Postoperative date diagnosis: Same Procedure: Delayed primary closure left medial ankle wound Anesthesia: None due to neuropathy Hemostasis: Compression Estimated blood loss: Minimal Materials: 2-0 Prolene Injectables: None Procedure in detail: After obtaining oral consent the left medial ankle wound was prepped with Betadine paint. The medial and lateral margins of the incisional wound were mobilized with undermining dissection using sterile dissecting scissors to allow for mobilization and good apposition of the medial and lateral flaps. The sites were then well opposed using a horizontal mattressstitch using 2-0 Prolene. Patient tolerated procedure anesthesia well in apparent satisfactory condition. Incisional sites dressed with Betadine Adaptic dry sterile dressing and 3M compression Patient will continue nonweightbearing Patient follow-up in 1 week (2) Charcot foot due to diabetes mellitus: CODE(S): E11.610 - 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 arthropathy (3) Abscess of bursa, left ankle and foot: CODE(S): M71.072 - Abscess of bursa, left ankle and foot (4) Cellulitis of left lower limb: CODE(S): L03.116 - Cellulitis of left lower limb (5) Non-pressure chronic ulcer of left 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: CODE(S): L97.322 - Non-pressure chronic ulcer of left 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 (6) Type 2 diabetes mellitus with diabetic polyneuropathy: CODE(S): E11.42 - Type 2 diabetes mellitus with diabetic polyneuropathy QUALIFIERS: Diabetes mellitus nursing home insulin use: without salvage determiner use Qualified Code(s): E11.42 - Type 2 diabetes mellitus with diabetic polyneuropathy 11/29/23 1033 <Electronically signed by Jordi Perkins DPM> Cosigner Signature (if applicable): CC: ~ Signed [facility] Work Phone: [phone]) [phone] Progress note Author Jordi Perkins [facility] November 22, 2023 10:37am Note Date/Time November 22, 2023 10: 37am [facility] [address] [place] [address] Progress Note - Wound Care 11/22/23 1036 MR#: [id number] Acct: [id number] Name: SNEHA WEI Jr. Rep #:[id number] : 1980 43 From: Jordi Perkins DPM PCP: Dr. Liliane Epps, DO Status:REG RCR Location: History of Present Illness Date of Service: 11/22/23 Chief Complaint: Diabetic left foot infection with gas gangrene and osteomyelitis; Li grade 3 diabetic foot infection. History of Wound: 43-year-old male status post left Charcot reconstruction. Denies constitutional symptoms. Wound is improving today. Objective Data Objective Data Vital Signs: Vital Signs Temp Pulse Resp BP O2 Del Method O2 Flow Rate 96.8 F L 85 18 136/77 H Room Air 99 11/22/23 10:02 11/22/23 10:02 11/22/23 10:02 11/22/23 10:02 11/15/23 10:49 11/07/23 00:24 Oxygen Flow Rate (L/min) 99 Oxygen Delivery Method Room Air Weight: 113.398 kg Body Mass Index (BMI) 33.9 Physical Exam Narrative Neurovascular status unchanged Full-thickness wounds to medial ankle, no residual purulence. Lateral ankle full thickness to subcutaneous tissue to superior aspect of ankle. No acute signs of infection. No signs of DVT. rectus hindfoot to leg positioning. slight plantar convexity with forefoot dorsiflexed on hindfoot. Const alert and oriented x3 Debridement Note Debridement Note Post-Debridement Measurements and Additional Note: Post-Debridement Measurements/Treatment WC - Nurse 1 - General Ulcer Assessment Start: 11/08/23 11:03 Freq: Status: Active Protocol: GWEN Activity Type Activity Date Activity User E-sign Co-sign Detail Recorded Client Recorded Date Recorded By Document 11/08/23 11:03 KW Desktop 11/08/23 11:11 KW Document 11/15/23 10:49 MT Desktop 11/15/23 11:03 MT Document 11/22/23 10:02 RB Desktop 11/22/23 10:06 RB 11/08/23 11/15/23 11/22/23 11:03 10:49 10:02 WC - Today's Visit Information Type of service Follow-up Visit Follow-up Visit Follow-up Visit (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 (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 (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 ) ) ) Arrival Mode Wheelchair Ambulatory Ambulatory Transfer Assistance None Accompanied by STEP-FATHER Patient Identification Verified (Name & Yes Yes Yes ) Patient Requires Transmission-Based No Precautions Finger Stick Blood Sugar(mg/dl) (if 115 indicated): Blood Sugar Stated by Patient Height and Weight Body Mass Index (BMI) 33.9 33.9 33.9 BMI Classification Obese Obese Obese Vital Signs Temperature (97.8 F-99.1 F) 96.9 F L 98 F 96.8 F L Temperature Source Temporal Temporal Temporal Pulse Rate (60-100) 93 92 85 Pulse Location Monitor Monitor Monitor Respiratory Rate (12-18) 18 18 18 Respiratory rate source Observation Observation Observation Oxygen Delivery Method Room Air Room Air Blood Pressure (90/60-120/80) 143/75 H 133/80 H 136/77 H Blood Pressure Mean (mm Hg) 97 97 96 Source Monitor Monitor Monitor Position Semi-Fowlers Sitting Semi-Fowlers Blood Pressure Location Left Arm Left Arm Left Arm History Since Last Visit- (Skip if this is Patient's initial visit) Have you changed medications since your No No last visit? Any new allergies or adverse reactions No No Had a fall/change in ADL's that may No No increase risk of falls Signs or symptoms of abuse and/or No No neglect since last visit Have you been in the hospital since your No No last visit? Has dressing in place as prescribed Yes Yes Has compression in place as prescribed Yes Yes Has offloadiing in place as prescribed Yes Yes Experienced any changes in pain level or No No management Left Footwear No Footwear Regular Shoe Right Footwear Regular Shoe Regular Shoe Pain Scale: 0-10 Numeric Is Patient Pain Free? Yes Yes Yes - Nurse 1 - General Ulcer Measurement Start: 11/08/23 11:03 Freq: Status: Active Protocol: Activity Type Activity Date Activity User E-sign Co-sign Detail Recorded Client Recorded Date Recorded By Document 11/08/23 11:03 KW Desktop 11/08/23 11:11 KW Document 11/15/23 10:49 MT Desktop 11/15/23 11:03 MT Document 11/22/23 10:02 RB Desktop 11/22/23 10:06 RB 11/08/23 11/15/23 11/22/23 11:03 10:49 10:02 Wound Center Nurse 1 7. L lateral ankle superior -Combined with other wound No -Current Size (cm) - Length 0.1 0.2 -Current Size (cm) - Width 0.1 0.6 -Current Size (cm) - Depth 0.1 2 -Total Square Cm 0.01 0.12 -Epithelialization Large 67-100% -Tunneling No -Undermining/Tunneling No -Circular Undermining No -Exudate Amt None Present Medium -Exudate Type Serosanguineous -Wound Margin Distinct, Outline Attached -Granulation Amt Medium (34-66%) -Granulation Quality [employer] -Slough/Fibrin Yes -Necrosis Amt Medium (34-66%) -Necrotic Tissue Type Adherent Slough -Structure Exposed N/A -Texture ([place]-wound Skin Appearance) Assessed, Scarring -Moisture ([place]-wound Skin Appearance) Dry/Scaly Assessed -Color ([place]-wound Skin Appearance) No Abnormality Assessed -Temperature ([place]-wound Skin No Abnormality No Abnormality Appearance) (Pt Warm) (Pt Warm) -Tenderness on Palpation ([place]-wound No Skin Appearance) -Ulcer Cleansing Rinsed/ Wound Cleanser Irrigated with Saline -Foul Odor after Cleansing No No -Anesthetic Used 5% Lidocaine 5% Lidocaine Gel Gel 6. L medial ankle -Combined with other wound No -Current Size (cm) - Length 0.8 1.0 0.3 -Current Size (cm) - Width 0.1 0.4 0.3 -Current Size (cm) - Depth 1.1 2.2 0.4 -Total Square Cm 0.08 0.40 0.09 -Epithelialization None Present -Tunneling No -Undermining/Tunneling Yes No -Undermining/Tunneling Starts (O'clock 2 ) -Undermining/Tunneling Ends (O'clock) 3 -Maximum Distance (cm) 1.5 -Circular Undermining No -Exudate Amt Medium Medium Medium -Exudate Type Serosanguineous Sanguineous Serosanguineous -Wound Margin Thickened Flat & Intact Distinct, Outline Attached -Granulation Amt Large (67-100%) Large (67-100%) Medium (34-66%) -Granulation Quality Red Pale,[employer] -Slough/Fibrin Yes No Yes -Necrosis Amt Small (1-33%) Medium (34-66%) -Necrotic Tissue Type Adherent Slough Adherent Slough -Structure Exposed N/A -Texture ([place]-wound Skin Appearance) No Abnormality Assessed Scarring -Moisture ([place]-wound Skin Appearance) No Abnormality Assessed Assessed -Color ([place]-wound Skin Appearance) No Abnormality Assessed Not Assessed -Temperature ([place]-wound Skin No Abnormality No Abnormality No Abnormality Appearance) (Pt Warm) (Pt Warm) (Pt Warm) -Tenderness on Palpation ([place]-wound No No No Skin Appearance) -Ulcer Cleansing Rinsed/ Soap and Water Wound Cleanser Irrigated with Saline -Foul Odor after Cleansing No No -Anesthetic Used 4% Lidocaine 5% Lidocaine 5% Lidocaine Solution Gel Gel Lower Limb Edema Present Yes Left Calf (cm) 34 Left Ankle (cm) 24.2 WC - Nurse 2 - General Ulcer CM Notes Start: 11/08/23 11:03 Freq: Status: Active Protocol: Activity Type Activity Date Activity User E-sign Co-sign Detail Recorded Client Recorded Date Recorded By Document 11/08/23 11:26 Laptop 11/08/23 11:28 Document 11/15/23 11:13 Laptop 11/15/23 11:22 Document 11/22/23 10:19 Laptop 11/22/23 10:25 11/08/23 11/15/23 11/22/23 11:26 11:13 10:19 Wound Center Nurse 2 7. L lateral ankle superior -Time 11:14 10:20 -Correct Patient No Yes Yes -Correct Side, Site, Position No Yes Yes -Correct Procedure No Yes Yes -Procedure Performed No Yes Yes -Type of Procedure Debridement Debridement -Clinical Debridement Subcutaneous Subcutaneous -Tissue Removed Subcutaneous Subcutaneous -Post Debridement (cm) - Length 0 0.5 1.0 -Post Debridement (cm) - Width 0 0.3 0.5 -Post Debridement (cm) - Depth 0 0.2 0.8 -Total Square (Post) (cm) 0 0.15 0.50 -Area of Debridement (cm) - Length 0 0.5 1.0 -Area of Debridement (cm) - Width 0 0.3 0.5 -Total Square (Area) (cm) 0 0.15 0.50 -Tunneling No No -Undermining/Tunneling No No -Circular Undermining No No -Wound/Ulcer Outcome Healed- Not Healed Not Healed Epithelialized -Ulcer Cleansing Rinsed/ Irrigated with Saline -Foul Odor after Cleansing No -Bioengineered Tissue No -Bleeding Controlled with Pressure Pressure -Treatment Response Procedure Procedure Tolerated Well Tolerated Well -Offloading No No -Debridement - Subq, 1st 20sq cm Yes No 6. L medial ankle -Time 11:26 11:13 10:21 -Correct Patient Yes Yes Yes -Correct Side, Site, Position Yes Yes Yes -Correct Procedure Yes Yes Yes -Procedure Performed Yes Yes Yes -Type of Procedure Debridement Debridement Debridement -Clinical Debridement Subcutaneous Subcutaneous Subcutaneous -Tissue Removed Subcutaneous Subcutaneous Subcutaneous -Post Debridement (cm) - Length 0.8 1.0 1.0 -Post Debridement (cm) - Width 0.2 0.5 0.1 -Post Debridement (cm) - Depth 1.1 2.2 2.0 -Total Square (Post) (cm) 0.16 0.50 0.10 -Area of Debridement (cm) - Length 0.8 1 1.0 -Area of Debridement (cm) - Width 0.2 0.5 0.1 -Total Square (Area) (cm) 0.16 0.5 0.10 -Tunneling No No No -Undermining/Tunneling No No -Circular Undermining No No No -Wound/Ulcer Outcome Not Healed Not Healed Not Healed -Ulcer Cleansing Rinsed/ Rinsed/ Rinsed/ Irrigated with Irrigated with Irrigated with Saline Saline Saline -Foul Odor after Cleansing No No No -Bioengineered Tissue No No No -Bleeding Controlled with Pressure Pressure Pressure -Treatment Response Procedure Procedure Procedure Tolerated Well Tolerated Well Tolerated Well -Offloading Yes No No -Type of Offloading Surgical Shoe -Assistive Device(s) Walker -Debridement - Subq, 1st 20sq cm Yes No Yes Pain Scale: 0-10 Numeric Is Patient Pain Free? Yes Yes Yes WC - Nurse 3 - General Ulcer D/C NN Start: 11/08/23 11:03 Freq: Status: Active Protocol: Activity Type Activity Date Activity User E-sign Co-sign Detail Recorded Client Recorded Date Recorded By Document 11/08/23 11:35 KW Desktop 11/08/23 11:35 KW Document 11/15/23 11:27 KW Desktop 11/15/23 11:31 KW 11/08/23 11/15/23 11:35 11:27 Wound Care Center Nurse 3 7. L lateral ankle superior -Ulcer Cleansing Rinsed/ Irrigated with Saline -Primary Dressing Covered/Secured with Dry Gauze 6. L medial ankle -Ulcer Cleansing Rinsed/ Irrigated with Saline -Primary Dressing Applied Nugauze, Plain 1/4in -Primary Dressing Covered/Secured with Dry Gauze & Dry Gauze & Roll Gauze, Roll Gauze, Secured with Secured with Tape Tape -Nugauze, Plain 1/4in 1 Left -Multi-Layered Wrap Application Multi-Layer Comp - Left ($) -Compression Wrap Martha Wrap Pain Scale: 0-10 Numeric Is Patient Pain Free? Yes Yes WC - Visit Discharge Discharge Condition Stable Stable Ambulatory Status Wheelchair Wheelchair Transportation Private Auto Private Auto Medication Reconcilliation completed & No No provided to patient/care provider Clinical Summary of Care Provided Yes Yes Assessment/Plan Assessment/Plan (1) Osteomyelitis of ankle, left, acute: CODE(S): M86.172 - Other acute osteomyelitis, left ankle and foot PLAN: Exam performed Patient great completed 6 weeks IV antibiotics*(meropenem) for osteomyelitis left foot. wound significantly improved Today left lower extremity wound to lateral and medial ankle were debrided down to and including level of muscle excisionally using a 5 mm dermal curette without incident. No anesthesia due to neuropathy. Hemostasis obtained with light compression. Patient tolerated procedure well. Pre and postdebridement measurements documented nursing notes. Patient is receiving weekly dressing changes with Dakin's DSD and a 3M compression wrap. Continue nonweightbearing left lower extremity Follow-up in 1 week (2) Charcot foot due to diabetes mellitus: CODE(S): E11.610 - 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 arthropathy (3) Abscess of bursa, left ankle and foot: CODE(S): M71.072 - Abscess of bursa, left ankle and foot (4) Cellulitis of left lower limb: CODE(S): L03.116 - Cellulitis of left lower limb (5) Non-pressure chronic ulcer of left 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: CODE(S): L97.322 - Non-pressure chronic ulcer of left 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 (6) Type 2 diabetes mellitus with diabetic polyneuropathy: CODE(S): E11.42 - Type 2 diabetes mellitus with diabetic polyneuropathy QUALIFIERS: Diabetes mellitus salvage determiner insulin use: without salvage determiner use Qualified Code(s): E11.42 - Type 2 diabetes mellitus with diabetic polyneuropathy 11/22/23 1037 <Electronically signed by Jordi Perkins DPM> Cosigner Signature (if applicable): CC: ~ Signed [facility] Work Phone: [phone]) [phone] Progress note Author Jordi Perkins [facility] November 15, 2023 11:23am Note Date/Time November 15, 2023 11:2 3am [facility] [address] [place] [id number] Progress Note - Wound Care 11/15/23 1120 MR#: [id number] Acct: [id number] Name: ERIBERTOSNEHACecil FRAGOSO Jr. Rep #:[id number] : 1980 43 From: Jordi Perkins DPM PCP: Dr. Liliane Epps, Status:[facility] Location: History of Present Illness Date of Service: 11/15/23 Chief Complaint: Diabetic left foot infection with gas gangrene and osteomyelitis; Li grade 3 diabetic foot infection. History of Wound: 43-year-old male status post left Charcot reconstruction. Denies constitutional symptoms. Wound is improving today. Objective Data Objective Data Vital Signs: Vital Signs Temp Pulse Resp BP O2 Del Method O2 Flow Rate 98 F 92 18 133/80 H Room Air 99 11/15/23 10:49 11/15/23 10:49 11/15/23 10:49 11/15/23 10:49 11/15/23 10:49 11/07/23 00:24 Oxygen Flow Rate (L/min) 99 Oxygen Delivery Method Room Air Weight: 113.398 kg Body Mass Index (BMI) 33.9 Physical Exam Narrative Neurovascular status unchanged Full-thickness wounds to medial ankle, no residual purulence. Lateral ankle full thickness to subcutaneous tissue to superior aspect of ankle. No acute signs of infection. No signs of DVT. rectus hindfoot to leg positioning. slight plantar convexity with forefoot dorsiflexed on hindfoot. Const alert and oriented x3 Debridement Note Debridement Note Post-Debridement Measurements and Additional Note: Post-Debridement Measurements/Treatment WC - Nurse 1 - General Ulcer Assessment Start: 11/08/23 11:03 Freq: Status: Active Protocol: WC.LOWEXT Activity Type Activity Date Activity User E-sign Co-sign Detail Recorded Client Recorded Date Recorded By Document 11/08/23 11:03 KW Desktop 11/08/23 11:11 KW Document 11/15/23 10:49 MT Desktop 11/15/23 11:03 MT 11/08/23 11/15/23 11:03 10:49 - Today's Visit Information Type of service Follow-up Visit Follow-up Visit (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 (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 ) ) Arrival Mode Wheelchair Ambulatory Accompanied by STEP-FATHER Patient Identification Verified (Name & Yes Yes ) Finger Stick Blood Sugar(mg/dl) (if 115 indicated): Blood Sugar Stated by Patient Height and Weight Body Mass Index (BMI) 33.9 33.9 BMI Classification Obese Obese Vital Signs Temperature (97.8 F-99.1 F) 96.9 F L 98 F Temperature Source Temporal Temporal Pulse Rate (60-100) 93 92 Pulse Location Monitor Monitor Respiratory Rate (12-18) 18 18 Respiratory rate source Observation Observation Oxygen Delivery Method Room Air Room Air Blood Pressure (90/60-120/80) 143/75 H 133/80 H Blood Pressure Mean (mm Hg) 97 97 Source Monitor Monitor Position Semi-Fowlers Sitting Blood Pressure Location Left Arm Left Arm History Since Last Visit- (Skip if this is Patient's initial visit) Have you changed medications since your No last visit? Any new allergies or adverse reactions No Had a fall/change in ADL's that may No increase risk of falls Signs or symptoms of abuse and/or No neglect since last visit Have you been in the hospital since your No last visit? Has dressing in place as prescribed Yes Has compression in place as prescribed Yes Has offloadiing in place as prescribed Yes Experienced any changes in pain level or No management Left Footwear No Footwear Regular Shoe Right Footwear Regular Shoe Regular Shoe Pain Scale: 0-10 Numeric Is Patient Pain Free? Yes Yes - Nurse 1 - General Ulcer Measurement Start: 11/08/23 11:03 Freq: Status: Active Protocol: Activity Type Activity Date Activity User E-sign Co-sign Detail Recorded Client Recorded Date Recorded By Document 11/08/23 11:03 KW Desktop 11/08/23 11:11 KW Document 11/15/23 10:49 MO Desktop 11/15/23 11:03 MO 11/08/23 11/15/23 11:03 10:49 Wound Center Nurse 1 7. L lateral ankle superior -Current Size (cm) - Length 0.1 -Current Size (cm) - Width 0.1 -Current Size (cm) - Depth 0.1 -Total Square Cm 0.01 -Epithelialization Large 67-100% -Exudate Amt None Present -Moisture ([place]-wound Skin Appearance) Dry/Scaly -Color ([place]-wound Skin Appearance) No Abnormality -Temperature ([place]-wound Skin No Abnormality Appearance) (Pt Warm) -Ulcer Cleansing Rinsed/ Irrigated with Saline -Foul Odor after Cleansing No -Anesthetic Used 5% Lidocaine Gel 6. L medial ankle -Current Size (cm) - Length 0.8 1.0 -Current Size (cm) - Width 0.1 0.4 -Current Size (cm) - Depth 1.1 2.2 -Total Square Cm 0.08 0.40 -Epithelialization None Present -Undermining/Tunneling Yes -Undermining/Tunneling Starts (O'clock 2 ) -Undermining/Tunneling Ends (O'clock) 3 -Maximum Distance (cm) 1.5 -Exudate Amt Medium Medium -Exudate Type Serosanguineous Sanguineous -Wound Margin Thickened Flat & Intact -Granulation Amt Large (67-100%) Large (67-100%) -Granulation Quality Red Pale,[employer] -Slough/Fibrin Yes No -Necrosis Amt Small (1-33%) -Necrotic Tissue Type Adherent Slough -Texture ([place]-wound Skin Appearance) No Abnormality Assessed -Moisture ([place]-wound Skin Appearance) No Abnormality Assessed -Color ([place]-wound Skin Appearance) No Abnormality Assessed -Temperature ([place]-wound Skin No Abnormality No Abnormality Appearance) (Pt Warm) (Pt Warm) -Tenderness on Palpation ([place]-wound No No Skin Appearance) -Ulcer Cleansing Rinsed/ Soap and Water Irrigated with Saline -Foul Odor after Cleansing No -Anesthetic Used 4% Lidocaine 5% Lidocaine Solution Gel MARY - Nurse 2 - General Ulcer CM Notes Start: 11/08/23 11:03 Freq: Status: Active Protocol: Activity Type Activity Date Activity User E-sign Co-sign Detail Recorded Client Recorded Date Recorded By Document 11/08/23 11:26 Laptop 11/08/23 11:28 11/08/23 11:26 Wound Center Nurse 2 7. L lateral ankle superior -Correct Patient No -Correct Side, Site, Position No -Correct Procedure No -Procedure Performed No -Post Debridement (cm) - Length 0 -Post Debridement (cm) - Width 0 -Post Debridement (cm) - Depth 0 -Total Square (Post) (cm) 0 -Area of Debridement (cm) - Length 0 -Area of Debridement (cm) - Width 0 -Total Square (Area) (cm) 0 -Wound/Ulcer Outcome Healed- Epithelialized 6. L medial ankle -Time 11:26 -Correct Patient Yes -Correct Side, Site, Position Yes -Correct Procedure Yes -Procedure Performed Yes -Type of Procedure Debridement -Clinical Debridement Subcutaneous -Tissue Removed Subcutaneous -Post Debridement (cm) - Length 0.8 -Post Debridement (cm) - Width 0.2 -Post Debridement (cm) - Depth 1.1 -Total Square (Post) (cm) 0.16 -Area of Debridement (cm) - Length 0.8 -Area of Debridement (cm) - Width 0.2 -Total Square (Area) (cm) 0.16 -Tunneling No -Circular Undermining No -Wound/Ulcer Outcome Not Healed -Ulcer Cleansing Rinsed/ Irrigated with Saline -Foul Odor after Cleansing No -Bioengineered Tissue No -Bleeding Controlled with Pressure -Treatment Response Procedure Tolerated Well -Offloading Yes -Type of Offloading Surgical Shoe -Assistive Device(s) Walker -Debridement - Subq, 1st 20sq cm Yes Pain Scale: 0-10 Numeric Is Patient Pain Free? Yes MARY - Nurse 3 - General Ulcer D/C NN Start: 11/08/23 11:03 Freq: Status: Active Protocol: Activity Type Activity Date Activity User E-sign Co-sign Detail Recorded Client Recorded Date Recorded By Document 11/08/23 11:35 KW Desktop 11/08/23 11:35 KW 11/08/23 11:35 Wound Care Center Nurse 3 6. L medial ankle -Primary Dressing Covered/Secured with Dry Gauze & Roll Gauze, Secured with Tape Left -Compression Wrap Martha Wrap Pain Scale: 0-10 Numeric Is Patient Pain Free? Yes WC - Visit Discharge Discharge Condition Stable Ambulatory Status Wheelchair Transportation Private Auto Medication Reconcilliation completed & No provided to patient/care provider Clinical Summary of Care Provided Yes Assessment/Plan Assessment/Plan (1) Osteomyelitis of ankle, left, acute: CODE(S): M86.172 - Other acute osteomyelitis, left ankle and foot PLAN: Exam performed Radiographs reviewed. Ankle joint fusing, subtalar joint fused. Some residual plantar convexity noted at the midfoot. Discussed possible midfoot osteotomy ifthere is any recurrent ulceration of the site with return to ambulation. Patient kash completed 6 weeks IV antibiotics*(meropenem) for osteomyelitis left foot. wound significantly improved cultures for 11/10/23 office visit were negative for any bacterioal growth. Today left lower extremity wound to lateral and medial ankle were debrided down to and including level of muscle excisionally using a 5 mm dermal curette without incident. No anesthesia due to neuropathy. Hemostasis obtained with light compression. Patient tolerated procedure well. Pre and postdebridement measurements documented nursing notes. Change dressing daily hydrogel with DSD and Tubigrip. Patient follows up weekly Patient patient will transfer to protected weightbearing cam boot assisted by walker Patient receiving HBO therapy Blood sugar well-controlled Follow-up 1 week (2) Charcot foot due to diabetes mellitus: CODE(S): E11.610 - 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 arthropathy (3) Abscess of bursa, left ankle and foot: CODE(S): M71.072 - Abscess of bursa, left ankle and foot (4) Cellulitis of left lower limb: CODE(S): L03.116 - Cellulitis of left lower limb (5) Non-pressure chronic ulcer of left 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: CODE(S): L97.322 - Non-pressure chronic ulcer of left 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 (6) Type 2 diabetes mellitus with diabetic polyneuropathy: CODE(S): E11.42 - Type 2 diabetes mellitus with diabetic polyneuropathy QUALIFIERS: Diabetes mellitus salvage determiner insulin use: without nursing home use Qualified Code(s): E11.42 - Type 2 diabetes mellitus with diabetic polyneuropathy 11/15/23 1123 <Electronically signed by Jordi Perkins DPM> Cosigner Signature (if applicable): CC: ~ Signed [facility] Work Phone: 1(121) 162-409104-02-2024 Progress note Author Jordi Perkins [facility] November 08, 2023 11:46am Note Date/Time November 08, 2023 11:4 7am [facility] [address] [place] [address] Progress Note - Wound Care 11/08/23 1145 MR#: [id number] Acct: [id number] Name: SNEHA WEI JrGiovanny Rep #:[id number] : 1980 43 From: Jordi Perkins DPM PCP: Dr. Liliane Epps, DO Status:REG RCR Location: History of Present Illness Date of Service: 11/08/23 Chief Complaint: Diabetic left foot infection with gas gangrene and osteomyelitis; Li grade 3 diabetic foot infection. History of Wound: 43-year-old male status post left Charcot reconstruction. Denies constitutional symptoms. Wound is improving today. Objective Data Objective Data Vital Signs: Vital Signs Temp Pulse Resp BP O2 Del Method O2 Flow Rate 96.9 F L 93 18 143/75 H Room Air 99 11/08/23 11:03 11/08/23 11:03 11/08/23 11:03 11/08/23 11:03 11/08/23 11:03 11/07/23 00:24 Oxygen Flow Rate (L/min) 99 Oxygen Delivery Method Room Air Weight: 113.398 kg Body Mass Index (BMI) 33.9 Physical Exam Narrative Neurovascular status unchanged Full-thickness wounds to medial ankle, 3 cc purulence drained from the site today. Lateral ankle wound down to the level of bone noted with intact vessel loop closure allowing for partial wound closure, additional 3 cc purulence drained from the site. Pre and postdebridement measurements documented in notesnursing notes. This was debrided down to level of muscle today. No residual abscess noted. New onset redness swelling to plantar midfoot with possible fluctuance and increase in warmth. Concern for deep abscess. No signs of DVT. Const alert and oriented x3 Debridement Note Debridement Note Post-Debridement Measurements and Additional Note: Post-Debridement Measurements/Treatment - Nurse 1 - General Ulcer Assessment Start: 11/08/23 11:03 Freq: Status: Active Protocol: GWEN Activity Type Activity Date Activity User E-sign Co-sign Detail Recorded Client Recorded Date Recorded By Document 11/08/23 11:03 [employer] 11/08/23 11:11 KW 11/08/23 11:03 WC - Today's Visit Information Type of service Follow-up Visit (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 ) Arrival Mode Wheelchair Accompanied by STEP-FATHER Patient Identification Verified (Name & Yes ) Finger Stick Blood Sugar(mg/dl) (if 115 indicated): Blood Sugar Stated by Patient Height and Weight Body Mass Index (BMI) 33.9 BMI Classification Obese Vital Signs Temperature (97.8 F-99.1 F) 96.9 F L Temperature Source Temporal Pulse Rate (60-100) 93 Pulse Location Monitor Respiratory Rate (12-18) 18 Respiratory rate source Observation Oxygen Delivery Method Room Air Blood Pressure (90/60-120/80) 143/75 H Blood Pressure Mean (mm Hg) 97 Source Monitor Position Semi-Fowlers Blood Pressure Location Left Arm History Since Last Visit- (Skip if this is Patient's initial visit) Have you changed medications since your No last visit? Any new allergies or adverse reactions No Had a fall/change in ADL's that may No increase risk of falls Signs or symptoms of abuse and/or No neglect since last visit Have you been in the hospital since your No last visit? Has dressing in place as prescribed Yes Has compression in place as prescribed Yes Has offloadiing in place as prescribed Yes Experienced any changes in pain level or No management Left Footwear No Footwear Right Footwear Regular Shoe Pain Scale: 0-10 Numeric Is Patient Pain Free? Yes - Nurse 1 - General Ulcer Measurement Start: 11/08/23 11:03 Freq: Status: Active Protocol: Activity Type Activity Date Activity User E-sign Co-sign Detail Recorded Client Recorded Date Recorded By Document 11/08/23 11:03 [employer] 11/08/23 11:11 KW 11/08/23 11:03 Wound Center Nurse 1 7. L lateral ankle superior -Current Size (cm) - Length 0.1 -Current Size (cm) - Width 0.1 -Current Size (cm) - Depth 0.1 -Total Square Cm 0.01 -Epithelialization Large 67-100% -Exudate Amt None Present -Moisture ([place]-wound Skin Appearance) Dry/Scaly -Color ([place]-wound Skin Appearance) No Abnormality -Temperature ([place]-wound Skin No Abnormality Appearance) (Pt Warm) -Ulcer Cleansing Rinsed/ Irrigated with Saline -Foul Odor after Cleansing No -Anesthetic Used 5% Lidocaine Gel 6. L medial ankle -Current Size (cm) - Length 0.8 -Current Size (cm) - Width 0.1 -Current Size (cm) - Depth 1.1 -Total Square Cm 0.08 -Epithelialization None Present -Undermining/Tunneling Yes -Undermining/Tunneling Starts (O'clock 2 ) -Undermining/Tunneling Ends (O'clock) 3 -Maximum Distance (cm) 1.5 -Exudate Amt Medium -Exudate Type Serosanguineous -Wound Margin Thickened -Granulation Amt Large (67-100%) -Granulation Quality Red -Slough/Fibrin Yes -Necrosis Amt Small (1-33%) -Necrotic Tissue Type Adherent Slough -Texture ([place]-wound Skin Appearance) No Abnormality -Moisture ([place]-wound Skin Appearance) No Abnormality -Color ([place]-wound Skin Appearance) No Abnormality -Temperature ([place]-wound Skin No Abnormality Appearance) (Pt Warm) -Tenderness on Palpation ([place]-wound No Skin Appearance) -Ulcer Cleansing Rinsed/ Irrigated with Saline -Anesthetic Used 4% Lidocaine Solution WC - Nurse 2 - General Ulcer CM Notes Start: 11/08/23 11:03 Freq: Status: Active Protocol: Activity Type Activity Date Activity User E-sign Co-sign Detail Recorded Client Recorded Date Recorded By Document 11/08/23 11:26 Laptop 11/08/23 11:28 11/08/23 11:26 Wound Center Nurse 2 7. L lateral ankle superior -Correct Patient No -Correct Side, Site, Position No -Correct Procedure No -Procedure Performed No -Post Debridement (cm) - Length 0 -Post Debridement (cm) - Width 0 -Post Debridement (cm) - Depth 0 -Total Square (Post) (cm) 0 -Area of Debridement (cm) - Length 0 -Area of Debridement (cm) - Width 0 -Total Square (Area) (cm) 0 -Wound/Ulcer Outcome Healed- Epithelialized 6. L medial ankle -Time 11:26 -Correct Patient Yes -Correct Side, Site, Position Yes -Correct Procedure Yes -Procedure Performed Yes -Type of Procedure Debridement -Clinical Debridement Subcutaneous -Tissue Removed Subcutaneous -Post Debridement (cm) - Length 0.8 -Post Debridement (cm) - Width 0.2 -Post Debridement (cm) - Depth 1.1 -Total Square (Post) (cm) 0.16 -Area of Debridement (cm) - Length 0.8 -Area of Debridement (cm) - Width 0.2 -Total Square (Area) (cm) 0.16 -Tunneling No -Circular Undermining No -Wound/Ulcer Outcome Not Healed -Ulcer Cleansing Rinsed/ Irrigated with Saline -Foul Odor after Cleansing No -Bioengineered Tissue No -Bleeding Controlled with Pressure -Treatment Response Procedure Tolerated Well -Offloading Yes -Type of Offloading Surgical Shoe -Assistive Device(s) Walker -Debridement - Subq, 1st 20sq cm Yes Pain Scale: 0-10 Numeric Is Patient Pain Free? Yes WC - Nurse 3 - General Ulcer D/C NN Start: 11/08/23 11:03 Freq: Status: Active Protocol: Activity Type Activity Date Activity User E-sign Co-sign Detail Recorded Client Recorded Date Recorded By Document 11/08/23 11:35 KW Desktop 11/08/23 11:35 KW 11/08/23 11:35 Wound Care Center Nurse 3 6. L medial ankle -Primary Dressing Covered/Secured with Dry Gauze & Roll Gauze, Secured with Tape Left -Compression Wrap Martha Wrap Pain Scale: 0-10 Numeric Is Patient Pain Free? Yes WC - Visit Discharge Discharge Condition Stable Ambulatory Status Wheelchair Transportation Private Auto Medication Reconcilliation completed & No provided to patient/care provider Clinical Summary of Care Provided Yes Assessment/Plan Assessment/Plan (1) Osteomyelitis of ankle, left, acute: CODE(S): M86.172 - Other acute osteomyelitis, left ankle and foot PLAN: Exam performed Radiographs reviewed. Ankle joint fusing, subtalar joint fused. Some residual plantar convexity noted at the midfoot. Discussed possible midfoot osteotomy ifthere is any recurrent ulceration of the site with return to ambulation. Patient kash completed 6 weeks IV antibiotics*(meropenem) for osteomyelitis left foot. wound significantly improved Today left lower extremity wound to lateral ankle was debrided down to and including level of muscle excisionally using a 5 mm dermal curette without incident. No anesthesia due to neuropathy. Hemostasis obtained with light compression. Patient tolerated procedure well. Pre and postdebridement measurements documented nursing notes. Change dressing daily hydrogel with DSD and Tubigrip. Patient follows up weekly Patient patient will transfer to protected weightbearing cam boot assisted by walker Patient receiving HBO therapy Blood sugar well-controlled Follow-up 1 week (2) Charcot foot due to diabetes mellitus: CODE(S): E11.610 - 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 arthropathy (3) Abscess of bursa, left ankle and foot: CODE(S): M71.072 - Abscess of bursa, left ankle and foot (4) Cellulitis of left lower limb: CODE(S): L03.116 - Cellulitis of left lower limb (5) Non-pressure chronic ulcer of left 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: CODE(S): L97.322 - Non-pressure chronic ulcer of left 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 (6) Type 2 diabetes mellitus with diabetic polyneuropathy: CODE(S): E11.42 - Type 2 diabetes mellitus with diabetic polyneuropathy QUALIFIERS: Diabetes mellitus nursing home insulin use: without nursing home use Qualified Code(s): E11.42 - Type 2 diabetes mellitus with diabetic polyneuropathy 11/08/23 1146 <Electronically signed by Jordi Perkins DPM> Cosigner Signature (if applicable): CC: ~ Signed [facility] Work Phone: [phone] Progress note Author Saba Park [facility] November 03, 2023 4:04pm Note Date/Time November 03, 2023 1:2 5pm [facility] [address] [place] [address] Progress Note - Wound Care HBO 11/03/23 1324 MR#: [id number] Acct: [id number] Name: ERIBERTOSNEHACecil FRAGOSO Jr. Rep #:[id number] : 1980 43 From: Saba sanabria NP PHYSICAL GEOGRAPHER-C PCP: Dr. Liliane Epps, DO Status:REG RCR Location: History of Present Illness Date of Service: 11/03/23 Chief Complaint: Diabetic left foot infection with gas gangrene and osteomyelitis; Li grade 3 diabetic foot infection. History of Wound: 43-year-old male status post left Charcot reconstruction. Denies constitutional symptoms. Wound is improving today. Subjective Subjective The patient underwent his 30th hyperbaric oxygen therapy session today. The patient is scheduled for a total of 30 such sessions. Tolerance of hyperbaric oxygen therapy: Hyperbaric oxygen therapy was provided as per the facility's protocol. Hyperbaric oxygen therapy was undertaken at 2 krzysztof and 100% oxygen for 90 minutes without air breaks. The patient tolerated hyperbaric oxygen therapy well, without complaints or complications. Upon emergence from the hyperbaric chamber, the patient's vital signs remained stable. Blood sugar levels were monitored both before and after hyperbaric oxygen therapy, and found to be satisfactory. Objective Data Objective Data Vital Signs: Vital Signs Temp Pulse Resp BP O2 Del Method O2 Flow Rate 96.7 F L 86 16 142/73 H Room Air 99 11/02/23 12:46 11/02/23 12:46 11/02/23 12:46 11/02/23 12:46 11/01/23 11:25 10/07/23 00:29 Oxygen Flow Rate (L/min) 99 Oxygen Delivery Method Room Air Weight: 250 lb Body Mass Index (BMI) 33.9 Lab / Micro Data Labs: Laboratory Results - last 24 hr 11/02/23 14:44: POC Glucose 177 H 11/03/23 12:47: POC Glucose 148 H Radiography Diagnostic Testing: Radiology Impression Ankle X-Ray 11/01/23 14:45 IMPRESSION: No interval change in ORIF of left ankle with marked Charcot changes and diffuse moderate to marked soft tissue swelling. Electronically Signed: Fredis Govea MD at 9:44 EDT , Foot X-Ray 11/01/23 14:45 IMPRESSION: Stable ORIF with diffuse marked Charcot changes and diffuse soft tissue swelling. Electronically Signed: Fredis Govea MD at 9:29 EDT Reading Location [place] and [place] [id number] [facility] [place] Service support , Exam Physical Exam Const alert, oriented x3 and no apparent distress HEENT normocephalic Tympanic Membrane: TM's normal bilaterally Resp normal respiratory effort Effort and Inspection: able to speak in complete sentences Auscultation: clear to auscultation bilaterally Cardio regular rate and regular rhythm Psych mental status grossly normal, thought process normal, cooperative, affect normaland speech normal Nursing Assessment and Debridement Post-Debridement Measurements and Additional Note: Post-Debridement Measurements/Treatment WC - Nurse 1 - General Ulcer Assessment Start: 10/07/23 08:27 Freq: Status: Active Protocol: GWEN Activity Type Activity Date Activity User E-sign Co-sign Detail Recorded Client Recorded Date Recorded By Document 11/01/23 11:25 Desktop 11/01/23 11:37 11/01/23 11:25 WC - Today's Visit Information Type of service Follow-up Visit (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 ) Arrival Mode Wheelchair Transfer Assistance None Patient Identification Verified (Name & Yes ) Patient Requires Transmission-Based No Precautions Height and Weight Body Mass Index (BMI) 33.9 BMI Classification Obese Vital Signs Temperature (97.8 F-99.1 F) 97.1 F L Temperature Source Temporal Pulse Rate (60-100) 95 Pulse Location Monitor Respiratory Rate (12-18) 16 Respiratory rate source Observation Oxygen Delivery Method Room Air Blood Pressure (90/60-120/80) 128/77 H Blood Pressure Mean (mm Hg) 94 Source Monitor Position Sitting Blood Pressure Location Left Arm History Since Last Visit- (Skip if this is Patient's initial visit) Have you changed medications since your No last visit? Any new allergies or adverse reactions No Had a fall/change in ADL's that may No increase risk of falls Signs or symptoms of abuse and/or No neglect since last visit Have you been in the hospital since your No last visit? Has dressing in place as prescribed Yes Has compression in place as prescribed Yes Has offloadiing in place as prescribed Yes Experienced any changes in pain level or No management Left Footwear Other Footwear (Comment) Pain Scale: 0-10 Numeric Is Patient Pain Free? Yes - Nurse 1 - General Ulcer Measurement Start: 10/07/23 08:27 Freq: Status: Active Protocol: Activity Type Activity Date Activity User E-sign Co-sign Detail Recorded Client Recorded Date Recorded By Document 11/01/23 11:25 GM Desktop 11/01/23 11:37 GM 11/01/23 11:25 Wound Center Nurse 1 8-left lateral inferior foot -Current Size (cm) - Length 0.1 -Current Size (cm) - Width 0.1 -Current Size (cm) - Depth 0.1 -Total Square Cm 0.01 -Photo Taken No -Tunneling No -Undermining/Tunneling No -Circular Undermining No -Exudate Amt None Present 7. L lateral ankle superior -Combined with other wound No -Current Size (cm) - Length 0.1 -Current Size (cm) - Width 0.1 -Current Size (cm) - Depth 0.1 -Total Square Cm 0.01 -Photo Taken No -Undermining/Tunneling No -Granulation Quality [employer] 6. L medial ankle -Current Size (cm) - Length 0.1 -Current Size (cm) - Width 0.1 -Current Size (cm) - Depth 0.1 -Total Square Cm 0.01 -Photo Taken No -Epithelialization Small 1-33% -Tunneling No -Undermining/Tunneling No -Circular Undermining No -Exudate Type Yellow/Green -Wound Margin Distinct, Outline Attached -Granulation Amt Small (1-33%) -Granulation Quality [employer] -Slough/Fibrin No -Structure Exposed N/A -Texture ([place]-wound Skin Appearance) Assessed -Moisture ([place]-wound Skin Appearance) Assessed -Color ([place]-wound Skin Appearance) Assessed -Temperature ([place]-wound Skin No Abnormality Appearance) (Pt Warm) -Ulcer Cleansing Rinsed/ Irrigated with Saline -Foul Odor after Cleansing No -Anesthetic Used 5% Lidocaine Gel WC - Nurse 2 - General Ulcer CM Notes Start: 10/07/23 08:27 Freq: Status: Active Protocol: Activity Type Activity Date Activity User E-sign Co-sign Detail Recorded Client Recorded Date Recorded By Document 11/01/23 11:41 MW Desktop 11/01/23 11:48 MW 11/01/23 11:41 Wound Center Nurse 2 8-left lateral inferior foot -Time 11:41 -Correct Patient Yes -Correct Side, Site, Position Yes -Correct Procedure Yes -Procedure Performed No -Post Debridement (cm) - Length 0 -Post Debridement (cm) - Width 0 -Total Square (Post) (cm) 0 -Tunneling No -Undermining/Tunneling No -Circular Undermining No -Wound/Ulcer Outcome Healed- Epithelialized 7. L lateral ankle superior -Time 11:42 -Correct Patient Yes -Correct Side, Site, Position Yes -Correct Procedure Yes -Procedure Performed Yes -Type of Procedure Debridement -Clinical Debridement Subcutaneous -Tissue Removed Subcutaneous -Post Debridement (cm) - Length 0.1 -Post Debridement (cm) - Width 0.1 -Post Debridement (cm) - Depth 0.1 -Total Square (Post) (cm) 0.01 -Area of Debridement (cm) - Length 0.1 -Area of Debridement (cm) - Width 0.1 -Total Square (Area) (cm) 0.01 -Tunneling No -Undermining/Tunneling No -Circular Undermining No -Wound/Ulcer Outcome Not Healed -Ulcer Cleansing Rinsed/ Irrigated with Saline -Foul Odor after Cleansing No -Bioengineered Tissue No -Bleeding Controlled with Pressure -Treatment Response Procedure Tolerated Well -Offloading No -Debridement - Subq, 1st 20sq cm Yes 6. L medial ankle -Time 11:43 -Correct Patient Yes -Correct Side, Site, Position Yes -Correct Procedure Yes -Procedure Performed Yes -Type of Procedure Debridement -Clinical Debridement Subcutaneous -Tissue Removed Subcutaneous -Post Debridement (cm) - Length 0.1 -Post Debridement (cm) - Width 0.1 -Post Debridement (cm) - Depth 0.1 -Total Square (Post) (cm) 0.01 -Area of Debridement (cm) - Length 0.1 -Area of Debridement (cm) - Width 0.1 -Total Square (Area) (cm) 0.01 -Tunneling No -Undermining/Tunneling No -Circular Undermining No -Wound/Ulcer Outcome Not Healed -Bleeding Controlled with Pressure -Treatment Response Procedure Tolerated Well -Offloading No -Debridement - Subq, 1st 20sq cm No Pain Scale: 0-10 Numeric Is Patient Pain Free? Yes WC - Nurse 3 - General Ulcer D/C NN Start: 10/07/23 08:27 Freq: Status: Active Protocol: Activity Type Activity Date Activity User E-sign Co-sign Detail Recorded Client Recorded Date Recorded By Document 11/01/23 11:58 KW Desktop 11/01/23 11:59 KW 11/01/23 11:58 Wound Care Center Nurse 3 7. L lateral ankle superior -Primary Dressing Covered/Secured with Dry Gauze & Roll Gauze, Secured with Tape 6. L medial ankle -Primary Dressing Covered/Secured with Dry Gauze Left -Compression Wrap Martha Wrap Pain Scale: 0-10 Numeric Is Patient Pain Free? Yes WC - Visit Discharge Discharge Condition Stable Ambulatory Status Wheelchair Transportation Private Auto Medication Reconcilliation completed & No provided to patient/care provider Clinical Summary of Care Provided Yes Assessment/Plan Assessment/Plan (1) Osteomyelitis of ankle or foot, left, acute: CODE(S): M86.172 - Other acute osteomyelitis, left ankle and foot (2) Osteomyelitis of ankle, left, acute: CODE(S): M86.172 - Other acute osteomyelitis, left ankle and foot (3) Abscess of bursa, left ankle and foot: CODE(S): M71.072 - Abscess of bursa, left ankle and foot (4) Cellulitis of left lower limb: CODE(S): L03.116 - Cellulitis of left lower limb (5) Charcot foot due to diabetes mellitus: CODE(S): E11.610 - 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 arthropathy (6) Non-pressure chronic ulcer of left 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: CODE(S): L97.322 - Non-pressure chronic ulcer of left 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 (7) Other acute postprocedural pain: CODE(S): G89.18 - Other acute postprocedural pain (8) Type 2 diabetes mellitus with diabetic polyneuropathy: CODE(S): E11.42 - Type 2 diabetes mellitus with diabetic polyneuropathy QUALIFIERS: Diabetes mellitus nursing home insulin use: without salvage determiner use Qualified Code(s): E11.42 - Type 2 diabetes mellitus with diabetic polyneuropathy (9) Non-pressure chronic ulcer of other part of left foot with necrosis of muscle: CODE(S): L97.523 - Non-pressure chronic ulcer of other part of left foot with necrosis of muscle (10) Gas gangrene of foot: CODE(S): A48.0 - Gas gangrene (11) Diabetic infection of left foot: CODE(S): E11.628 - Type 2 diabetes mellitus with other skin complications;L08.9 - Local infection of the skin and subcutaneous tissue, unspecified (12) Non-pressure chronic ulcer of other part of left foot with necrosis of bone: CODE(S): L97.524 - Non-pressure chronic ulcer of other part of left foot with necrosis of bone (13) Cellulitis: CODE(S): L03.90 - Cellulitis, unspecified QUALIFIERS: Site of cellulitis: extremity Site of cellulitis of extremity: lower extremity Laterality: left Qualified Code(s): L03.116 - Cellulitis of left lower limb (14) Hypertension: CODE(S): I10 - Essential (primary) hypertension QUALIFIERS: Hypertension type: primary hypertension Qualified Code(s): I10 - Essential (primary) hypertension PLAN: Plan The patient appears to be tolerating hyperbaric oxygen therapy well, which will be continued as per their medical treatment plan. 11/03/23 1604 <Electronically signed by Saba Park NP, NP-C> Cosigner Signature (if applicable): CC: ~ Signed [facility] Work Phone: [phone] Progress note Author [facility] November 02, 2023 2:57pm Note Date/Time November 02, 2023 12: 40pm [facility] [address] [place] [id number] Progress Note - Wound Care HBO 11/02/23 1239 MR#: [id number] Acct: [id number] Name: SNEHA WEI Jr. Rep #:[id number] : 1980 43 From: Saba sanabria NP PHYSICAL GEOGRAPHER-C PCP: Dr. Liliane Epps, DO Status:REG RCR Location: History of Present Illness Date of Service: 11/02/23 Chief Complaint: Diabetic left foot infection with gas gangrene and osteomyelitis; Li grade 3 diabetic foot infection. History of Wound: 43-year-old male status post left Charcot reconstruction. Denies constitutional symptoms. Wound is improving today. Subjective Subjective The patient underwent his 29th hyperbaric oxygen therapy session today. The patient is scheduled for a total of 30 such sessions. Tolerance of hyperbaric oxygen therapy: Hyperbaric oxygen therapy was provided as per the facility's protocol. Hyperbaric oxygen therapy was undertaken at 2 krzysztof and 100% oxygen for 90 minutes without air breaks. The patient tolerated hyperbaric oxygen therapy well, without complaints or complications. Upon emergence from the hyperbaric chamber, the patient's vital signs remained stable. Blood sugar levels were monitored both before and after hyperbaric oxygen therapy, and found to be satisfactory. Objective Data Objective Data Vital Signs: Vital Signs Temp Pulse Resp BP O2 Del Method O2 Flow Rate 97.1 F L 84 16 126/71 H Room Air 99 11/01/23 12:37 11/01/23 12:37 11/01/23 12:37 11/01/23 12:37 11/01/23 11:25 10/07/23 00:29 Oxygen Flow Rate (L/min) 99 Oxygen Delivery Method Room Air Weight: 250 lb Body Mass Index (BMI) 33.9 Lab / Micro Data Labs: Laboratory Results - last 24 hr 11/01/23 14:13: POC Glucose 136 H Exam Physical Exam Const alert, oriented x3 and no apparent distress HEENT normocephalic Tympanic Membrane: TM's normal bilaterally Resp normal respiratory effort Effort and Inspection: able to speak in complete sentences Auscultation: clear to auscultation bilaterally Cardio regular rate and regular rhythm Psych mental status grossly normal, thought process normal, cooperative, affect normaland speech normal Nursing Assessment and Debridement Post-Debridement Measurements and Additional Note: Post-Debridement Measurements/Treatment - Nurse 1 - General Ulcer Assessment Start: 10/07/23 08:27 Freq: Status: Active Protocol: GWEN Activity Type Activity Date Activity User E-sign Co-sign Detail Recorded Client Recorded Date Recorded By Document 11/01/23 11:25 Desktop 11/01/23 11:37 11/01/23 11:25 - Today's Visit Information Type of service Follow-up Visit (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 ) Arrival Mode Wheelchair Transfer Assistance None Patient Identification Verified (Name & Yes ) Patient Requires Transmission-Based No Precautions Height and Weight Body Mass Index (BMI) 33.9 BMI Classification Obese Vital Signs Temperature (97.8 F-99.1 F) 97.1 F L Temperature Source Temporal Pulse Rate (60-100) 95 Pulse Location Monitor Respiratory Rate (12-18) 16 Respiratory rate source Observation Oxygen Delivery Method Room Air Blood Pressure (90/60-120/80) 128/77 H Blood Pressure Mean (mm Hg) 94 Source Monitor Position Sitting Blood Pressure Location Left Arm History Since Last Visit- (Skip if this is Patient's initial visit) Have you changed medications since your No last visit? Any new allergies or adverse reactions No Had a fall/change in ADL's that may No increase risk of falls Signs or symptoms of abuse and/or No neglect since last visit Have you been in the hospital since your No last visit? Has dressing in place as prescribed Yes Has compression in place as prescribed Yes Has offloadiing in place as prescribed Yes Experienced any changes in pain level or No management Left Footwear Other Footwear (Comment) Pain Scale: 0-10 Numeric Is Patient Pain Free? Yes WC - Nurse 1 - General Ulcer Measurement Start: 10/07/23 08:27 Freq: Status: Active Protocol: Activity Type Activity Date Activity User E-sign Co-sign Detail Recorded Client Recorded Date Recorded By Document 11/01/23 11:25 Desktop 11/01/23 11:37 11/01/23 11:25 Wound Center Nurse 1 8-left lateral inferior foot -Current Size (cm) - Length 0.1 -Current Size (cm) - Width 0.1 -Current Size (cm) - Depth 0.1 -Total Square Cm 0.01 -Photo Taken No -Tunneling No -Undermining/Tunneling No -Circular Undermining No -Exudate Amt None Present 7. L lateral ankle superior -Combined with other wound No -Current Size (cm) - Length 0.1 -Current Size (cm) - Width 0.1 -Current Size (cm) - Depth 0.1 -Total Square Cm 0.01 -Photo Taken No -Undermining/Tunneling No -Granulation [employer] 6. L medial ankle -Current Size (cm) - Length 0.1 -Current Size (cm) - Width 0.1 -Current Size (cm) - Depth 0.1 -Total Square Cm 0.01 -Photo Taken No -Epithelialization Small 1-33% -Tunneling No -Undermining/Tunneling No -Circular Undermining No -Exudate Type Yellow/Green -Wound Margin Distinct, Outline Attached -Granulation Amt Small (1-33%) -Granulation [employer] -Slough/Fibrin No -Structure Exposed N/A -Texture ([place]-wound Skin Appearance) Assessed -Moisture ([place]-wound Skin Appearance) Assessed -Color ([place]-wound Skin Appearance) Assessed -Temperature ([place]-wound Skin No Abnormality Appearance) (Pt Warm) -Ulcer Cleansing Rinsed/ Irrigated with Saline -Foul Odor after Cleansing No -Anesthetic Used 5% Lidocaine Gel WC - Nurse 2 - General Ulcer CM Notes Start: 10/07/23 08:27 Freq: Status: Active Protocol: Activity Type Activity Date Activity User E-sign Co-sign Detail Recorded Client Recorded Date Recorded By Document 11/01/23 11:41 MW Desktop 11/01/23 11:48 MW 11/01/23 11:41 Wound Center Nurse 2 8-left lateral inferior foot -Time 11:41 -Correct Patient Yes -Correct Side, Site, Position Yes -Correct Procedure Yes -Procedure Performed No -Post Debridement (cm) - Length 0 -Post Debridement (cm) - Width 0 -Total Square (Post) (cm) 0 -Tunneling No -Undermining/Tunneling No -Circular Undermining No -Wound/Ulcer Outcome Healed- Epithelialized 7. L lateral ankle superior -Time 11:42 -Correct Patient Yes -Correct Side, Site, Position Yes -Correct Procedure Yes -Procedure Performed Yes -Type of Procedure Debridement -Clinical Debridement Subcutaneous -Tissue Removed Subcutaneous -Post Debridement (cm) - Length 0.1 -Post Debridement (cm) - Width 0.1 -Post Debridement (cm) - Depth 0.1 -Total Square (Post) (cm) 0.01 -Area of Debridement (cm) - Length 0.1 -Area of Debridement (cm) - Width 0.1 -Total Square (Area) (cm) 0.01 -Tunneling No -Undermining/Tunneling No -Circular Undermining No -Wound/Ulcer Outcome Not Healed -Ulcer Cleansing Rinsed/ Irrigated with Saline -Foul Odor after Cleansing No -Bioengineered Tissue No -Bleeding Controlled with Pressure -Treatment Response Procedure Tolerated Well -Offloading No -Debridement - Subq, 1st 20sq cm Yes 6. L medial ankle -Time 11:43 -Correct Patient Yes -Correct Side, Site, Position Yes -Correct Procedure Yes -Procedure Performed Yes -Type of Procedure Debridement -Clinical Debridement Subcutaneous -Tissue Removed Subcutaneous -Post Debridement (cm) - Length 0.1 -Post Debridement (cm) - Width 0.1 -Post Debridement (cm) - Depth 0.1 -Total Square (Post) (cm) 0.01 -Area of Debridement (cm) - Length 0.1 -Area of Debridement (cm) - Width 0.1 -Total Square (Area) (cm) 0.01 -Tunneling No -Undermining/Tunneling No -Circular Undermining No -Wound/Ulcer Outcome Not Healed -Bleeding Controlled with Pressure -Treatment Response Procedure Tolerated Well -Offloading No -Debridement - Subq, 1st 20sq cm No Pain Scale: 0-10 Numeric Is Patient Pain Free? Yes - Nurse 3 - General Ulcer D/C NN Start: 10/07/23 08:27 Freq: Status: Active Protocol: Activity Type Activity Date Activity User E-sign Co-sign Detail Recorded Client Recorded Date Recorded By Document 10/31/23 10:03 Laptop 10/31/23 10:24 Document 11/01/23 11:58 KW Desktop 11/01/23 11:59 KW 10/31/23 11/01/23 10:03 11:58 Wound Care Center Nurse 3 7. L lateral ankle superior -Primary Dressing Covered/Secured with Dry Gauze & Roll Gauze, Secured with Tape 6. L medial ankle -Primary Dressing Covered/Secured with Dry Gauze Left -Compression Wrap Martha Wrap Martha Wrap Pain Scale: 0-10 Numeric Is Patient Pain Free? Yes Yes - Visit Discharge Discharge Condition Stable Stable Ambulatory Status Wheelchair Wheelchair Transportation Private Auto Private Auto Accompanied by rubia Medication Reconcilliation completed & No provided to patient/care provider Clinical Summary of Care Provided Yes Notes: Patient completed HBO dive and is heading over to get his MRI done ordered by Dr Perkins. Assessment/Plan Assessment/Plan (1) Osteomyelitis of ankle or foot, left, acute: CODE(S): M86.172 - Other acute osteomyelitis, left ankle and foot (2) Osteomyelitis of ankle, left, acute: CODE(S): M86.172 - Other acute osteomyelitis, left ankle and foot (3) Abscess of bursa, left ankle and foot: CODE(S): M71.072 - Abscess of bursa, left ankle and foot (4) Cellulitis of left lower limb: CODE(S): L03.116 - Cellulitis of left lower limb (5) Charcot foot due to diabetes mellitus: CODE(S): E11.610 - 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 arthropathy (6) Non-pressure chronic ulcer of left 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: CODE(S): L97.322 - Non-pressure chronic ulcer of left 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 (7) Other acute postprocedural pain: CODE(S): G89.18 - Other acute postprocedural pain (8) Type 2 diabetes mellitus with diabetic polyneuropathy: CODE(S): E11.42 - Type 2 diabetes mellitus with diabetic polyneuropathy QUALIFIERS: Diabetes mellitus salvage determiner insulin use: without salvage determiner use Qualified Code(s): E11.42 - Type 2 diabetes mellitus with diabetic polyneuropathy (9) Non-pressure chronic ulcer of other part of left foot with necrosis of muscle: CODE(S): L97.523 - Non-pressure chronic ulcer of other part of left foot with necrosis of muscle (10) Gas gangrene of foot: CODE(S): A48.0 - Gas gangrene (11) Diabetic infection of left foot: CODE(S): E11.628 - Type 2 diabetes mellitus with other skin complications;L08.9 - Local infection of the skin and subcutaneous tissue, unspecified (12) Non-pressure chronic ulcer of other part of left foot with necrosis of bone: CODE(S): L97.524 - Non-pressure chronic ulcer of other part of left foot with necrosis of bone (13) Cellulitis: CODE(S): L03.90 - Cellulitis, unspecified QUALIFIERS: Site of cellulitis: extremity Site of cellulitis of extremity: lower extremity Laterality: left Qualified Code(s): L03.116 - Cellulitis of left lower limb (14) Hypertension: CODE(S): I10 - Essential (primary) hypertension QUALIFIERS: Hypertension type: primary hypertension Qualified Code(s): I10 - Essential (primary) hypertension PLAN: Plan The patient appears to be tolerating hyperbaric oxygen therapy well, which will be continued as per their medical treatment plan. 11/02/23 4522 <Electronically signed by Saba Park NP, NP-C> Cosigner Signature (if applicable): CC: ~ Signed [facility] Work Phone: [phone] Progress note Author Saba Park [facility] November 01, 2023 2:35pm Note Date/Time November 01, 2023 12: 24pm [facility] [address] [place] [address] Progress Note - Wound Care HBO 11/01/23 1223 MR#: [id number] Acct: [id number] Name: SNEHA WEI Jr. Rep #:[id number] : 1980 43 From: Saba sanabria NP PHYSICAL GEOGRAPHER-C PCP: Dr. Liliane Epps, DO Status:REG RCR Location: History of Present Illness Date of Service: 11/01/23 Chief Complaint: Diabetic left foot infection with gas gangrene and osteomyelitis; Li grade 3 diabetic foot infection. History of Wound: 43-year-old male status post left Charcot reconstruction. Denies constitutional symptoms. Wound is improving today. Subjective Subjective The patient underwent his 28th hyperbaric oxygen therapy session today. The patient is scheduled for a total of 30 such sessions. Tolerance of hyperbaric oxygen therapy: Hyperbaric oxygen therapy was provided as per the facility's protocol. Hyperbaric oxygen therapy was undertaken at 2 krzysztof and 100% oxygen for 90 minutes without air breaks. The patient tolerated hyperbaric oxygen therapy well, without complaints or complications. Upon emergence from the hyperbaric chamber, the patient's vital signs remained stable. Blood sugar levels were monitored both before and after hyperbaric oxygen therapy, and found to be satisfactory. Objective Data Objective Data Vital Signs: Vital Signs Temp Pulse Resp BP O2 Del Method O2 Flow Rate 97.1 F L 95 16 128/77 H Room Air 99 11/01/23 11:25 11/01/23 11:25 11/01/23 11:25 11/01/23 11:25 11/01/23 11:25 10/07/23 00:29 Oxygen Flow Rate (L/min) 99 Oxygen Delivery Method Room Air Weight: 250 lb Body Mass Index (BMI) 33.9 Lab / Micro Data Labs: Laboratory Results - last 24 hr 11/01/23 12:01: POC Glucose 159 H Radiography Diagnostic Testing: Radiology Impression Lower Extremity MRI 10/31/23 11:00 IMPRESSION: Postsurgical changes with marked osteoarthritic and degenerative destructive changes. Diffuse marked superficial and deep subcutaneous soft tissue edema compatible with cellulitis. Study is extremely limited by metallic artifact. Electronically Signed: Fredis Govea MD at 12:22 EDT , Exam Physical Exam Const alert, oriented x3 and no apparent distress HEENT normocephalic Tympanic Membrane: TM's normal bilaterally Resp normal respiratory effort Effort and Inspection: able to speak in complete sentences Auscultation: clear to auscultation bilaterally Cardio regular rate and regular rhythm Psych mental status grossly normal, thought process normal, cooperative, affect normaland speech normal Nursing Assessment and Debridement Post-Debridement Measurements and Additional Note: Post-Debridement Measurements/Treatment WC - Nurse 1 - General Ulcer Assessment Start: 10/07/23 08:27 Freq: Status: Active Protocol: .LOWEX Activity Type Activity Date Activity User E-sign Co-sign Detail Recorded Client Recorded Date Recorded By Document 11/01/23 11:25 Desktop 11/01/23 11:37 GM 11/01/23 11:25 WC - Today's Visit Information Type of service Follow-up Visit (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 ) Arrival Mode Wheelchair Transfer Assistance None Patient Identification Verified (Name & Yes ) Patient Requires Transmission-Based No Precautions Height and Weight Body Mass Index (BMI) 33.9 BMI Classification Obese Vital Signs Temperature (97.8 F-99.1 F) 97.1 F L Temperature Source Temporal Pulse Rate (60-100) 95 Pulse Location Monitor Respiratory Rate (12-18) 16 Respiratory rate source Observation Oxygen Delivery Method Room Air Blood Pressure (90/60-120/80) 128/77 H Blood Pressure Mean (mm Hg) 94 Source Monitor Position Sitting Blood Pressure Location Left Arm History Since Last Visit- (Skip if this is Patient's initial visit) Have you changed medications since your No last visit? Any new allergies or adverse reactions No Had a fall/change in ADL's that may No increase risk of falls Signs or symptoms of abuse and/or No neglect since last visit Have you been in the hospital since your No last visit? Has dressing in place as prescribed Yes Has compression in place as prescribed Yes Has offloadiing in place as prescribed Yes Experienced any changes in pain level or No management Left Footwear Other Footwear (Comment) Pain Scale: 0-10 Numeric Is Patient Pain Free? Yes WC - Nurse 1 - General Ulcer Measurement Start: 10/07/23 08:27 Freq: Status: Active Protocol: Activity Type Activity Date Activity User E-sign Co-sign Detail Recorded Client Recorded Date Recorded By Document 11/01/23 11:25 GM Desktop 11/01/23 11:37 GM 11/01/23 11:25 Wound Center Nurse 1 8-left lateral inferior foot -Current Size (cm) - Length 0.1 -Current Size (cm) - Width 0.1 -Current Size (cm) - Depth 0.1 -Total Square Cm 0.01 -Photo Taken No -Tunneling No -Undermining/Tunneling No -Circular Undermining No -Exudate Amt None Present 7. L lateral ankle superior -Combined with other wound No -Current Size (cm) - Length 0.1 -Current Size (cm) - Width 0.1 -Current Size (cm) - Depth 0.1 -Total Square Cm 0.01 -Photo Taken No -Undermining/Tunneling No -Granulation [employer] 6. L medial ankle -Current Size (cm) - Length 0.1 -Current Size (cm) - Width 0.1 -Current Size (cm) - Depth 0.1 -Total Square Cm 0.01 -Photo Taken No -Epithelialization Small 1-33% -Tunneling No -Undermining/Tunneling No -Circular Undermining No -Exudate Type Yellow/Green -Wound Margin Distinct, Outline Attached -Granulation Amt Small (1-33%) -Granulation [employer] -Slough/Fibrin No -Structure Exposed N/A -Texture ([place]-wound Skin Appearance) Assessed -Moisture ([place]-wound Skin Appearance) Assessed -Color ([place]-wound Skin Appearance) Assessed -Temperature ([place]-wound Skin No Abnormality Appearance) (Pt Warm) -Ulcer Cleansing Rinsed/ Irrigated with Saline -Foul Odor after Cleansing No -Anesthetic Used 5% Lidocaine Gel MARY - Nurse 2 - General Ulcer CM Notes Start: 10/07/23 08:27 Freq: Status: Active Protocol: Activity Type Activity Date Activity User E-sign Co-sign Detail Recorded Client Recorded Date Recorded By Document 11/01/23 11:41 MW Desktop 11/01/23 11:48 MW 03/26/24 11:41 Wound Center Nurse 2 8-left lateral inferior foot -Time 11:41 -Correct Patient Yes -Correct Side, Site, Position Yes -Correct Procedure Yes -Procedure Performed No -Post Debridement (cm) - Length 0 -Post Debridement (cm) - Width 0 -Total Square (Post) (cm) 0 -Tunneling No -Undermining/Tunneling No -Circular Undermining No -Wound/Ulcer Outcome Healed- Epithelialized 7. L lateral ankle superior -Time 11:42 -Correct Patient Yes -Correct Side, Site, Position Yes -Correct Procedure Yes -Procedure Performed Yes -Type of Procedure Debridement -Clinical Debridement Subcutaneous -Tissue Removed Subcutaneous -Post Debridement (cm) - Length 0.1 -Post Debridement (cm) - Width 0.1 -Post Debridement (cm) - Depth 0.1 -Total Square (Post) (cm) 0.01 -Area of Debridement (cm) - Length 0.1 -Area of Debridement (cm) - Width 0.1 -Total Square (Area) (cm) 0.01 -Tunneling No -Undermining/Tunneling No -Circular Undermining No -Wound/Ulcer Outcome Not Healed -Ulcer Cleansing Rinsed/ Irrigated with Saline -Foul Odor after Cleansing No -Bioengineered Tissue No -Bleeding Controlled with Pressure -Treatment Response Procedure Tolerated Well -Offloading No -Debridement - Subq, 1st 20sq cm Yes 6. L medial ankle -Time 11:43 -Correct Patient Yes -Correct Side, Site, Position Yes -Correct Procedure Yes -Procedure Performed Yes -Type of Procedure Debridement -Clinical Debridement Subcutaneous -Tissue Removed Subcutaneous -Post Debridement (cm) - Length 0.1 -Post Debridement (cm) - Width 0.1 -Post Debridement (cm) - Depth 0.1 -Total Square (Post) (cm) 0.01 -Area of Debridement (cm) - Length 0.1 -Area of Debridement (cm) - Width 0.1 -Total Square (Area) (cm) 0.01 -Tunneling No -Undermining/Tunneling No -Circular Undermining No -Wound/Ulcer Outcome Not Healed -Bleeding Controlled with Pressure -Treatment Response Procedure Tolerated Well -Offloading No -Debridement - Subq, 1st 20sq cm No Pain Scale: 0-10 Numeric Is Patient Pain Free? Yes WC - Nurse 3 - General Ulcer D/C NN Start: 10/07/23 08:27 Freq: Status: Active Protocol: Activity Type Activity Date Activity User E-sign Co-sign Detail Recorded Client Recorded Date Recorded By Document 10/31/23 10:03 Laptop 10/31/23 10:24 JF Document 11/01/23 11:58 KW Desktop 11/01/23 11:59 KW 10/31/23 11/01/23 10:03 11:58 Wound Care Center Nurse 3 7. L lateral ankle superior -Primary Dressing Covered/Secured with Dry Gauze & Roll Gauze, Secured with Tape 6. L medial ankle -Primary Dressing Covered/Secured with Dry Gauze Left -Compression Wrap Martha Wrap Martha Wrap Pain Scale: 0-10 Numeric Is Patient Pain Free? Yes Yes WC - Visit Discharge Discharge Condition Stable Stable Ambulatory Status Wheelchair Wheelchair Transportation Private Auto Private Auto Accompanied by stepdanoelle Medication Reconcilliation completed & No provided to patient/care provider Clinical Summary of Care Provided Yes Notes: Patient completed HBO dive and is heading over to get his MRI done ordered by Dr Perkins. Assessment/Plan Assessment/Plan (1) Osteomyelitis of ankle or foot, left, acute: CODE(S): M86.172 - Other acute osteomyelitis, left ankle and foot (2) Osteomyelitis of ankle, left, acute: CODE(S): M86.172 - Other acute osteomyelitis, left ankle and foot (3) Abscess of bursa, left ankle and foot: CODE(S): M71.072 - Abscess of bursa, left ankle and foot (4) Cellulitis of left lower limb: CODE(S): L03.116 - Cellulitis of left lower limb (5) Charcot foot due to diabetes mellitus: CODE(S): E11.610 - 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 arthropathy (6) Non-pressure chronic ulcer of left 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: CODE(S): L97.322 - Non-pressure chronic ulcer of left 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 (7) Other acute postprocedural pain: CODE(S): G89.18 - Other acute postprocedural pain (8) Type 2 diabetes mellitus with diabetic polyneuropathy: CODE(S): E11.42 - Type 2 diabetes mellitus with diabetic polyneuropathy QUALIFIERS: Diabetes mellitus nursing home insulin use: without nursing home use Qualified Code(s): E11.42 - Type 2 diabetes mellitus with diabetic polyneuropathy (9) Non-pressure chronic ulcer of other part of left foot with necrosis of muscle: CODE(S): L97.523 - Non-pressure chronic ulcer of other part of left foot with necrosis of muscle (10) Gas gangrene of foot: CODE(S): A48.0 - Gas gangrene (11) Diabetic infection of left foot: CODE(S): E11.628 - Type 2 diabetes mellitus with other skin complications;L08.9 - Local infection of the skin and subcutaneous tissue, unspecified (12) Non-pressure chronic ulcer of other part of left foot with necrosis of bone: CODE(S): L97.524 - Non-pressure chronic ulcer of other part of left foot with necrosis of bone (13) Cellulitis: CODE(S): L03.90 - Cellulitis, unspecified QUALIFIERS: Site of cellulitis: extremity Site of cellulitis of extremity: lower extremity Laterality: left Qualified Code(s): L03.116 - Cellulitis of left lower limb (14) Hypertension: CODE(S): I10 - Essential (primary) hypertension QUALIFIERS: Hypertension type: primary hypertension Qualified Code(s): I10 - Essential (primary) hypertension PLAN: Plan The patient appears to be tolerating hyperbaric oxygen therapy well, which will be continued as per their medical treatment plan. 11/01/23 1435 <Electronically signed by Saba Park NP PHYSICAL GEOGRAPHER-C> Cosigner Signature (if applicable): CC: ~ Signed [facility] Work Phone: [phone] Progress note Author Jordi Perkins [facility] November 01, 2023 11:50am Note Date/Time November 01, 2023 11: 49am [facility] [address] [place] [address] Progress Note - Wound Care 11/01/23 1149 MR#: [id number] Acct: [id number] Name: SNEHA WEI Rep #:[id number] : 1980 43 From: Jordi Perkins DPM PCP: Dr. Liliane Epps, DO Status:REG RCR Location: History of Present Illness Date of Service: 11/01/23 Chief Complaint: Diabetic left foot infection with gas gangrene and osteomyelitis; Li grade 3 diabetic foot infection. History of Wound: 43-year-old male status post left Charcot reconstruction. Denies constitutional symptoms. Wound is improving today. Progress of Wound: The patient underwent his 26th hyperbaric oxygen therapy session today. The patient is scheduled for a total of 30 such sessions. Objective Data Objective Data Vital Signs: Vital Signs Temp Pulse Resp BP O2 Del Method O2 Flow Rate 97.1 F L 95 16 128/77 H Room Air 99 11/01/23 11:25 11/01/23 11:25 11/01/23 11:25 11/01/23 11:25 11/01/23 11:25 10/07/23 00:29 Oxygen Flow Rate (L/min) 99 Oxygen Delivery Method Room Air Weight: 113.398 kg Body Mass Index (BMI) 33.9 Physical Exam Narrative Neurovascular status unchanged Full-thickness wounds to medial ankle, 3 cc purulence drained from the site today. Lateral ankle wound down to the level of bone noted with intact vessel loop closure allowing for partial wound closure, additional 3 cc purulence drained from the site. Pre and postdebridement measurements documented in notesnursing notes. This was debrided down to level of muscle today. No residual abscess noted. New onset redness swelling to plantar midfoot with possible fluctuance and increase in warmth. Concern for deep abscess. No signs of DVT. Const alert and oriented x3 Debridement Note Debridement Note Post-Debridement Measurements and Additional Note: Post-Debridement Measurements/Treatment - Nurse 1 - General Ulcer Assessment Start: 10/07/23 08:27 Freq: Status: Active Protocol: GWEN Activity Type Activity Date Activity User E-sign Co-sign Detail Recorded Client Recorded Date Recorded By Document 10/11/23 12:05 RB [id number] 10/11/23 12:09 RB Document 10/18/23 11:08 KW Desktop 10/18/23 11:25 KW Document 10/25/23 11:23 KW Desktop 10/25/23 11:40 KW Document 11/01/23 11:25 GM Desktop 11/01/23 11:37 GM 10/11/23 10/18/23 10/25/23 12:05 11:08 11:23 - Today's Visit Information Type of service Follow-up Visit Follow-up Visit Follow-up Visit (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 (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 (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 ) ) ) Arrival Mode Wheelchair Wheelchair Wheelchair Transfer Assistance Manual Accompanied by step father STEP FATHER Patient Identification Verified (Name & Yes Yes Yes ) Patient Requires Transmission-Based No Precautions Finger Stick Blood Sugar(mg/dl) (if 123 indicated): Blood Sugar Stated by Patient Height and Weight Body Mass Index (BMI) 33.9 33.9 33.9 BMI Classification Obese Obese Obese Vital Signs Temperature (97.8 F-99.1 F) 98 F 96.6 F L 97.6 F L Temperature Source Temporal Temporal Temporal Pulse Rate (60-100) 94 85 97 Pulse Location Monitor Monitor Monitor Respiratory Rate (12-18) 18 18 18 Respiratory rate source Observation Observation Observation Oxygen Delivery Method Room Air Room Air Blood Pressure (90/60-120/80) 121/73 H 129/80 H 129/76 H Blood Pressure Mean (mm Hg) 89 96 93 Source Monitor Monitor Monitor Position Sitting Semi-Fowlers Semi-Fowlers Blood Pressure Location Left Arm Left Arm Left Arm History Since Last Visit- (Skip if this is Patient's initial visit) Have you changed medications since your No No No last visit? Any new allergies or adverse reactions No No No Had a fall/change in ADL's that may No No No increase risk of falls Signs or symptoms of abuse and/or No No No neglect since last visit Have you been in the hospital since your No No No last visit? Has dressing in place as prescribed Yes Yes Yes Has compression in place as prescribed Yes Yes Yes Has offloadiing in place as prescribed Yes Yes Yes Experienced any changes in pain level or No No No management Left Footwear No Footwear Slipper Right Footwear Regular Shoe Regular Shoe Pain Scale: 0-10 Numeric Is Patient Pain Free? Yes Yes Yes 11/01/23 11:25 - Today's Visit Information Type of service Follow-up Visit (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 ) Arrival Mode Wheelchair Transfer Assistance None Accompanied by Patient Identification Verified (Name & Yes ) Patient Requires Transmission-Based No Precautions Finger Stick Blood Sugar(mg/dl) (if indicated): Blood Sugar Height and Weight Body Mass Index (BMI) 33.9 BMI Classification Obese Vital Signs Temperature (97.8 F-99.1 F) 97.1 F L Temperature Source Temporal Pulse Rate (60-100) 95 Pulse Location Monitor Respiratory Rate (12-18) 16 Respiratory rate source Observation Oxygen Delivery Method Room Air Blood Pressure (90/60-120/80) 128/77 H Blood Pressure Mean (mm Hg) 94 Source Monitor Position Sitting Blood Pressure Location Left Arm History Since Last Visit- (Skip if this is Patient's initial visit) Have you changed medications since your No last visit? Any new allergies or adverse reactions No Had a fall/change in ADL's that may No increase risk of falls Signs or symptoms of abuse and/or No neglect since last visit Have you been in the hospital since your No last visit? Has dressing in place as prescribed Yes Has compression in place as prescribed Yes Has offloadiing in place as prescribed Yes Experienced any changes in pain level or No management Left Footwear Other Footwear (Comment) Right Footwear Pain Scale: 0-10 Numeric Is Patient Pain Free? Yes WC - Nurse 1 - General Ulcer Measurement Start: 10/07/23 08:27 Freq: Status: Active Protocol: Activity Type Activity Date Activity User E-sign Co-sign Detail Recorded Client Recorded Date Recorded By Document 10/11/23 12:05 RB [id number] 10/11/23 12:09 RB Document 10/18/23 11:08 KW Desktop 10/18/23 11:25 KW Document 10/25/23 11:23 KW Desktop 10/25/23 11:40 KW Document 11/01/23 11:25 GM Desktop 11/01/23 11:37 GM 10/11/23 10/18/23 10/25/23 12:05 11:08 11:23 Wound Center Nurse 1 8-left lateral inferior foot -Current Size (cm) - Length 0.1 -Current Size (cm) - Width 0.1 -Current Size (cm) - Depth 0.1 -Total Square Cm 0.01 -Photo Taken -Tunneling -Undermining/Tunneling -Circular Undermining -Exudate Amt None Present -Texture ([place]-wound Skin Appearance) Assessed -Moisture ([place]-wound Skin Appearance) Assessed -Temperature ([place]-wound Skin No Abnormality Appearance) (Pt Warm) -Ulcer Cleansing Soap and Water -Foul Odor after Cleansing No -Anesthetic Used 4% Lidocaine Solution 7. L lateral ankle superior -Combined with other wound No -Current Size (cm) - Length 1 0.4 -Current Size (cm) - Width 0.5 0.2 -Current Size (cm) - Depth 1 0.2 -Total Square Cm 0.5 0.08 -Photo Taken -Tunneling No -Undermining/Tunneling No -Circular Undermining No -Exudate Amt Large Small None Present -Exudate Type Serosanguineous Serosanguineous -Wound Margin Thickened & Thickened & Distinct, Rolled Under Rolled Under Outline Attached -Granulation Amt Medium (34-66%) Large (67-100%) Large (67-100%) -Granulation Quality [employer] Red -Slough/Fibrin Yes -Necrosis Amt Medium (34-66%) -Necrotic Tissue Type Adherent Slough -Structure Exposed N/A -Texture ([place]-wound Skin Appearance) Assessed, Assessed, Assessed Scarring Localized Edema -Moisture ([place]-wound Skin Appearance) Assessed Assessed Assessed -Color ([place]-wound Skin Appearance) Assessed Assessed Assessed -Temperature ([place]-wound Skin No Abnormality No Abnormality No Abnormality Appearance) (Pt Warm) (Pt Warm) (Pt Warm) -Tenderness on Palpation ([place]-wound No No Skin Appearance) -Ulcer Cleansing Wound Cleanser Soap and Water Soap and Water -Foul Odor after Cleansing No No No -Anesthetic Used 4% Lidocaine 4% Lidocaine 4% Lidocaine Solution Solution Solution 6. L medial ankle -Combined with other wound No -Current Size (cm) - Length 1 0.5 0.8 -Current Size (cm) - Width 0.5 0.2 0.5 -Current Size (cm) - Depth 1 1 0.4 -Total Square Cm 0.5 0.10 0.40 -Photo Taken -Epithelialization -Tunneling No -Undermining/Tunneling No -Circular Undermining No -Exudate Amt Large Small Medium -Exudate Type Serosanguineous Serosanguineous Serosanguineous -Wound Margin Thickened & Thickened & Distinct, Rolled Under Rolled Under Outline Attached -Granulation Amt Medium (34-66%) Large (67-100%) Large (67-100%) -Granulation Quality [employer] Red -Slough/Fibrin Yes -Necrosis Amt Medium (34-66%) -Necrotic Tissue Type Adherent Slough -Structure Exposed N/A -Texture ([place]-wound Skin Appearance) Assessed, Assessed Assessed Scarring -Moisture ([place]-wound Skin Appearance) Assessed Assessed Assessed -Color ([place]-wound Skin Appearance) Assessed Assessed Assessed -Temperature ([place]-wound Skin No Abnormality No Abnormality No Abnormality Appearance) (Pt Warm) (Pt Warm) (Pt Warm) -Tenderness on Palpation ([place]-wound No Skin Appearance) -Ulcer Cleansing Wound Cleanser Soap and Water Soap and Water -Foul Odor after Cleansing No No -Anesthetic Used 5% Lidocaine 4% Lidocaine 4% Lidocaine Gel Solution Solution Left Calf (cm) 35 Left Ankle (cm) 24.5 11/01/23 11:25 Wound Center Nurse 1 8-left lateral inferior foot -Current Size (cm) - Length 0.1 -Current Size (cm) - Width 0.1 -Current Size (cm) - Depth 0.1 -Total Square Cm 0.01 -Photo Taken No -Tunneling No -Undermining/Tunneling No -Circular Undermining No -Exudate Amt None Present -Texture ([place]-wound Skin Appearance) -Moisture ([place]-wound Skin Appearance) -Temperature ([place]-wound Skin Appearance) -Ulcer Cleansing -Foul Odor after Cleansing -Anesthetic Used 7. L lateral ankle superior -Combined with other wound No -Current Size (cm) - Length 0.1 -Current Size (cm) - Width 0.1 -Current Size (cm) - Depth 0.1 -Total Square Cm 0.01 -Photo Taken No -Tunneling -Undermining/Tunneling No -Circular Undermining -Exudate Amt -Exudate Type -Wound Margin -Granulation Amt -Granulation Quality [employer] -Slough/Fibrin -Necrosis Amt -Necrotic Tissue Type -Structure Exposed -Texture ([place]-wound Skin Appearance) -Moisture ([place]-wound Skin Appearance) -Color ([place]-wound Skin Appearance) -Temperature ([place]-wound Skin Appearance) -Tenderness on Palpation ([place]-wound Skin Appearance) -Ulcer Cleansing -Foul Odor after Cleansing -Anesthetic Used 6. L medial ankle -Combined with other wound -Current Size (cm) - Length 0.1 -Current Size (cm) - Width 0.1 -Current Size (cm) - Depth 0.1 -Total Square Cm 0.01 -Photo Taken No -Epithelialization Small 1-33% -Tunneling No -Undermining/Tunneling No -Circular Undermining No -Exudate Amt -Exudate Type Yellow/Green -Wound Margin Distinct, Outline Attached -Granulation Amt Small (1-33%) -Granulation Quality [employer] -Slough/Fibrin No -Necrosis Amt -Necrotic Tissue Type -Structure Exposed N/A -Texture ([place]-wound Skin Appearance) Assessed -Moisture ([place]-wound Skin Appearance) Assessed -Color ([place]-wound Skin Appearance) Assessed -Temperature ([place]-wound Skin No Abnormality Appearance) (Pt Warm) -Tenderness on Palpation ([place]-wound Skin Appearance) -Ulcer Cleansing Rinsed/ Irrigated with Saline -Foul Odor after Cleansing No -Anesthetic Used 5% Lidocaine Gel Left Calf (cm) Left Ankle (cm) WC - Nurse 2 - General Ulcer CM Notes Start: 10/07/23 08:27 Freq: Status: Active Protocol: Activity Type Activity Date Activity User E-sign Co-sign Detail Recorded Client Recorded Date Recorded By Document 10/11/23 11:34 [employer] Laptop 10/11/23 11:52 [employer] Document 10/18/23 11:41 [employer] Laptop 10/18/23 11:45 JF Document 10/25/23 11:46 JF Laptop 10/25/23 11:52 JF Document 11/01/23 11:41 MW Desktop 11/01/23 11:48 MW 10/11/23 10/18/23 10/25/23 11:34 11:41 11:46 Wound Center Nurse 2 8-left lateral inferior foot -Time 11:42 11:47 -Correct Patient Yes Yes -Correct Side, Site, Position Yes Yes -Correct Procedure Yes Yes -Procedure Performed Yes Yes -Type of Procedure Debridement Debridement -Clinical Debridement Subcutaneous Subcutaneous -Tissue Removed Subcutaneous Subcutaneous -Post Debridement (cm) - Length 0.3 0.5 -Post Debridement (cm) - Width 0.8 0.2 -Post Debridement (cm) - Depth 0.5 0.2 -Total Square (Post) (cm) 0.24 0.10 -Area of Debridement (cm) - Length 0.3 0.5 -Area of Debridement (cm) - Width 0.8 0.2 -Total Square (Area) (cm) 0.24 0.10 -Tunneling No No -Undermining/Tunneling No No -Circular Undermining No No -Wound/Ulcer Outcome Not Healed Not Healed -Ulcer Cleansing Rinsed/ Rinsed/ Irrigated with Irrigated with Saline Saline -Foul Odor after Cleansing No No -Bioengineered Tissue No No -Bleeding Controlled with Pressure Pressure -Treatment Response Procedure Procedure Tolerated Well Tolerated Well -Offloading No No -Debridement - Subq, 1st 20sq cm No No 7. L lateral ankle superior -Time 11:50 11:41 11:47 -Correct Patient Yes Yes Yes -Correct Side, Site, Position Yes Yes Yes -Correct Procedure Yes Yes Yes -Procedure Performed Yes Yes Yes -Type of Procedure Debridement Debridement Debridement -Clinical Debridement Muscle / Fascia Subcutaneous Subcutaneous -Tissue Removed Muscle Subcutaneous Subcutaneous -Post Debridement (cm) - Length 6.0 0.9 0.1 -Post Debridement (cm) - Width 1.0 0.2 0.1 -Post Debridement (cm) - Depth 1.2 0.4 0.1 -Total Square (Post) (cm) 6.00 0.18 0.01 -Area of Debridement (cm) - Length 6.0 0.9 0.1 -Area of Debridement (cm) - Width 1.0 0.2 0.1 -Total Square (Area) (cm) 6.00 0.18 0.01 -Tunneling No No No -Undermining/Tunneling No No No -Circular Undermining No No No -Wound/Ulcer Outcome Not Healed Not Healed Not Healed -Ulcer Cleansing Rinsed/ Rinsed/ Rinsed/ Irrigated with Irrigated with Irrigated with Saline Saline Saline -Foul Odor after Cleansing No No No -Bioengineered Tissue No No No -Bleeding Controlled with Pressure Pressure Pressure -Treatment Response Procedure Procedure Procedure Tolerated Well Tolerated Well Tolerated Well -Offloading No No Yes -Type of Offloading Camwalker -Assistive Device(s) Wheelchair -Debridement - Subq, 1st 20sq cm Yes No -Debridement - Muscle / Fascia, 1st No 20sq cm 6. L medial ankle -Time 11:51 11:41 11:48 -Correct Patient Yes Yes Yes -Correct Side, Site, Position Yes Yes Yes -Correct Procedure Yes Yes Yes -Procedure Performed Yes Yes Yes -Type of Procedure Debridement Debridement Debridement -Clinical Debridement Muscle / Fascia Subcutaneous Subcutaneous -Tissue Removed Muscle Subcutaneous Subcutaneous -Post Debridement (cm) - Length 1.1 0.9 0.8 -Post Debridement (cm) - Width 0.4 0.5 0.5 -Post Debridement (cm) - Depth 1 1.5 0.4 -Total Square (Post) (cm) 0.44 0.45 0.40 -Area of Debridement (cm) - Length 1.1 0.9 0.8 -Area of Debridement (cm) - Width 0.4 0.5 0.5 -Total Square (Area) (cm) 0.44 0.45 0.40 -Tunneling No No Yes -Tunneling Position (O'clock) 12 -Tunneling Distance (cm) 2.2 -Undermining/Tunneling Yes No No -Undermining/Tunneling Starts (O'clock 2 ) -Undermining/Tunneling Ends (O'clock) 5 -Maximum Distance (cm) 2.0 -Circular Undermining No No No -Wound/Ulcer Outcome Not Healed Not Healed Not Healed -Ulcer Cleansing Rinsed/ Rinsed/ Rinsed/ Irrigated with Irrigated with Irrigated with Saline Saline Saline -Foul Odor after Cleansing No No No -Bioengineered Tissue No No No -Bleeding Controlled with Pressure Pressure Pressure -Treatment Response Procedure Procedure Procedure Tolerated Well Tolerated Well Tolerated Well -Offloading No Yes Yes -Type of Offloading Surgical Shoe Camwalker -Assistive Device(s) Wheelchair -Debridement - Subq, 1st 20sq cm No Yes -Debridement - Muscle / Fascia, 1st Yes 20sq cm Pain Scale: 0-10 Numeric Is Patient Pain Free? Yes Yes Yes 11/01/23 11:41 Wound Center Nurse 2 8-left lateral inferior foot -Time 11:41 -Correct Patient Yes -Correct Side, Site, Position Yes -Correct Procedure Yes -Procedure Performed No -Type of Procedure -Clinical Debridement -Tissue Removed -Post Debridement (cm) - Length 0 -Post Debridement (cm) - Width 0 -Post Debridement (cm) - Depth -Total Square (Post) (cm) 0 -Area of Debridement (cm) - Length -Area of Debridement (cm) - Width -Total Square (Area) (cm) -Tunneling No -Undermining/Tunneling No -Circular Undermining No -Wound/Ulcer Outcome Healed- Epithelialized -Ulcer Cleansing -Foul Odor after Cleansing -Bioengineered Tissue -Bleeding Controlled with -Treatment Response -Offloading -Debridement - Subq, 1st 20sq cm 7. L lateral ankle superior -Time 11:42 -Correct Patient Yes -Correct Side, Site, Position Yes -Correct Procedure Yes -Procedure Performed Yes -Type of Procedure Debridement -Clinical Debridement Subcutaneous -Tissue Removed Subcutaneous -Post Debridement (cm) - Length 0.1 -Post Debridement (cm) - Width 0.1 -Post Debridement (cm) - Depth 0.1 -Total Square (Post) (cm) 0.01 -Area of Debridement (cm) - Length 0.1 -Area of Debridement (cm) - Width 0.1 -Total Square (Area) (cm) 0.01 -Tunneling No -Undermining/Tunneling No -Circular Undermining No -Wound/Ulcer Outcome Not Healed -Ulcer Cleansing Rinsed/ Irrigated with Saline -Foul Odor after Cleansing No -Bioengineered Tissue No -Bleeding Controlled with Pressure -Treatment Response Procedure Tolerated Well -Offloading No -Type of Offloading -Assistive Device(s) -Debridement - Subq, 1st 20sq cm Yes -Debridement - Muscle / Fascia, 1st 20sq cm 6. L medial ankle -Time 11:43 -Correct Patient Yes -Correct Side, Site, Position Yes -Correct Procedure Yes -Procedure Performed Yes -Type of Procedure Debridement -Clinical Debridement Subcutaneous -Tissue Removed Subcutaneous -Post Debridement (cm) - Length 0.1 -Post Debridement (cm) - Width 0.1 -Post Debridement (cm) - Depth 0.1 -Total Square (Post) (cm) 0.01 -Area of Debridement (cm) - Length 0.1 -Area of Debridement (cm) - Width 0.1 -Total Square (Area) (cm) 0.01 -Tunneling No -Tunneling Position (O'clock) -Tunneling Distance (cm) -Undermining/Tunneling No -Undermining/Tunneling Starts (O'clock ) -Undermining/Tunneling Ends (O'clock) -Maximum Distance (cm) -Circular Undermining No -Wound/Ulcer Outcome Not Healed -Ulcer Cleansing -Foul Odor after Cleansing -Bioengineered Tissue -Bleeding Controlled with Pressure -Treatment Response Procedure Tolerated Well -Offloading No -Type of Offloading -Assistive Device(s) -Debridement - Subq, 1st 20sq cm No -Debridement - Muscle / Fascia, 1st 20sq cm Pain Scale: 0-10 Numeric Is Patient Pain Free? Yes WC - Nurse 3 - General Ulcer D/C NN Start: 10/07/23 08:27 Freq: Status: Active Protocol: Activity Type Activity Date Activity User E-sign Co-sign Detail Recorded Client Recorded Date Recorded By Document 10/07/23 10:04 [id number] 10/07/23 10:07 Document 10/11/23 12:05 RB [id number] 10/11/23 12:09 RB Document 10/18/23 15:40 RB Desktop 10/18/23 15:42 RB Document 10/25/23 12:20 RB Desktop 10/25/23 12:21 RB Document 10/31/23 10:03 Laptop 10/31/23 10:24 JF 10/07/23 10/11/23 10/18/23 10:04 12:05 15:40 Wound Care Center Nurse 3 8-left lateral inferior foot -Ulcer Cleansing -Primary Dressing Applied -Other Dressing dakin moistened gauze -Primary Dressing Covered/Secured with Dry Gauze,Dry Gauze & Roll Gauze,Secured with Tape 7. L lateral ankle superior -Ulcer Cleansing Rinsed/ Irrigated with Saline -Other Dressing DAKINS dakins MOISTENED GAUZE moistened gauze -Primary Dressing Covered/Secured with Dry Gauze & Dry Gauze,Dry Roll Gauze, Gauze & Roll Secured with Gauze,Secured Tape with Tape 6. L medial ankle -Other Dressing [id number] dakins MOISTENED GAUZE moistened gauze -Primary Dressing Covered/Secured with Dry Gauze & Dry Gauze,Dry Roll Gauze, Gauze & Roll Secured with Gauze,Secured Tape with Tape Left -Compression Wrap -Tubular Bandage Double Layer -Size of Tubigrip Used Size E -Size E ($) 2 Treatment Response Procedure Procedure Tolerated Well Tolerated Well Vital Signs Temperature (97.8 F-99.1 F) 98 F Temperature Source Temporal Pulse Rate (60-100) 94 Pulse Location Monitor Respiratory Rate (12-18) 18 Respiratory rate source Observation Blood Pressure (90/60-120/80) 121/73 H Blood Pressure Mean (mm Hg) 89 Source Monitor Position Sitting Blood Pressure Location Left Arm Pain Scale: 0-10 Numeric Is Patient Pain Free? Yes Yes Yes WC - Visit Discharge Discharge Condition Stable Stable Stable Ambulatory Status Wheelchair Wheelchair Wheelchair Transportation Private Auto Private Auto Private Auto Accompanied by PARENTS Medication Reconcilliation completed & No No provided to patient/care provider Clinical Summary of Care Provided Yes Yes Notes: Patient tolerated HBO treatment without difficulty. Heading to the hospital to get his xray ordered by Dr Perkins. 10/25/23 10/31/23 12:20 10:03 Wound Care Center Nurse 3 8-left lateral inferior foot -Ulcer Cleansing Rinsed/ Irrigated with Saline -Primary Dressing Applied C Hydrogel ($) -Other Dressing -Primary Dressing Covered/Secured with Dry Gauze,Dry Gauze & Roll Gauze,Secured with Tape 7. L lateral ankle superior -Ulcer Cleansing -Other Dressing hydrogel -Primary Dressing Covered/Secured with Dry Gauze & Roll Gauze, Secured with Tape 6. L medial ankle -Other Dressing hydrogel -Primary Dressing Covered/Secured with Dry Gauze,Dry Gauze & Roll Gauze,Secured with Tape Left -Compression Wrap Martha Wrap -Tubular Bandage -Size of Tubigrip Used -Size E ($) Treatment Response Procedure Tolerated Well Vital Signs Temperature (97.8 F-99.1 F) Temperature Source Pulse Rate (60-100) Pulse Location Respiratory Rate (12-18) Respiratory rate source Blood Pressure (90/60-120/80) Blood Pressure Mean (mm Hg) Source Position Blood Pressure Location Pain Scale: 0-10 Numeric Is Patient Pain Free? Yes Yes WC - Visit Discharge Discharge Condition Stable Stable Ambulatory Status Wheelchair Wheelchair Transportation Private Auto Private Auto Accompanied by rubia Medication Reconcilliation completed & No provided to patient/care provider Clinical Summary of Care Provided Yes Notes: will apply martha Patient wrap after HBO completed HBO treatment dive and is heading over to get his MRI done ordered by Dr Perkins. Assessment/Plan Assessment/Plan (1) Osteomyelitis of ankle, left, acute: CODE(S): M86.172 - Other acute osteomyelitis, left ankle and foot PLAN: Exam performed Patient great completed 6 weeks IV antibiotics*(meropenem) for osteomyelitis left foot. wound significantly improved Today left lower extremity wound to medial/lateral ankle was debrided down to and including level of muscle excisionally using a 5 mm dermal curette without incident. No anesthesia due to neuropathy. Hemostasis obtained with light compression. Patient tolerated procedure well. Pre and postdebridement measurements documented nursing notes. Change dressing daily hydrogel with DSD and Tubigrip. Patient follows up weekly Patient nonweightbearing left lower extremity Patient receiving HBO therapy Blood sugar well-controlled MRI reviewed today no concern for obvious abscess or deep infection Follow-up 1 week (2) Charcot foot due to diabetes mellitus: CODE(S): E11.610 - 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 arthropathy (3) Abscess of bursa, left ankle and foot: CODE(S): M71.072 - Abscess of bursa, left ankle and foot (4) Cellulitis of left lower limb: CODE(S): L03.116 - Cellulitis of left lower limb (5) Non-pressure chronic ulcer of left 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: CODE(S): L97.322 - Non-pressure chronic ulcer of left 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 (6) Type 2 diabetes mellitus with diabetic polyneuropathy: CODE(S): E11.42 - Type 2 diabetes mellitus with diabetic polyneuropathy QUALIFIERS: Diabetes mellitus nursing home insulin use: without nursing home use Qualified Code(s): E11.42 - Type 2 diabetes mellitus with diabetic polyneuropathy 11/01/23 1150 <Electronically signed by Jordi Perkins DPM> Cosigner Signature (if applicable): CC: ~ Signed [facility] Work Phone: [phone]) 245-945803-25-2024 Progress note Author Saba Park [facility] October 31, 2023 10:31am Note Date/Time October 31, 2023 8:3 2am [facility] [address] [place] [id number] Progress Note - Wound Care HBO 10/31/23 0831 MR#: [id number] Acct: [id number] Name: ERIBERTOSNEHACecil FRAGOSO Jr. Rep #:[id number] : 1980 43 From: Saba sanabria NP PHYSICAL GEOGRAPHER-C PCP: Dr. Liliane Epps, DO Status:REG RCR Location: MRI History of Present Illness Date of Service: 10/31/23 Chief Complaint: Diabetic left foot infection with gas gangrene and osteomyelitis; Li grade 3 diabetic foot infection. History of Wound: 43-year-old male status post left Charcot reconstruction. Denies constitutional symptoms. Wound is improving today. Subjective Subjective The patient underwent his 27th hyperbaric oxygen therapy session today. The patient is scheduled for a total of 30 such sessions. Tolerance of hyperbaric oxygen therapy: Hyperbaric oxygen therapy was provided as per the facility's protocol. Hyperbaric oxygen therapy was undertaken at 2 krzysztof and 100% oxygen for 90 minutes without air breaks. The patient tolerated hyperbaric oxygen therapy well, without complaints or complications. Upon emergence from the hyperbaric chamber, the patient's vital signs remained stable. Blood sugar levels were monitored both before and after hyperbaric oxygen therapy, and found to be satisfactory. Objective Data Objective Data Vital Signs: Vital Signs Temp Pulse Resp BP O2 Del Method O2 Flow Rate 96.7 F L 84 18 130/81 H Room Air 99 10/28/23 08:38 10/28/23 08:38 10/28/23 08:38 10/28/23 08:38 10/25/23 11:23 10/07/23 00:29 Oxygen Flow Rate (L/min) 99 Oxygen Delivery Method Room Air Weight: 250 lb Body Mass Index (BMI) 33.9 Lab / Micro Data Labs: Laboratory Results - last 24 hr 10/31/23 07:50: POC Glucose 175 H Exam Physical Exam Const alert, oriented x3 and no apparent distress HEENT normocephalic Tympanic Membrane: TM's normal bilaterally Resp normal respiratory effort Effort and Inspection: able to speak in complete sentences Auscultation: clear to auscultation bilaterally Cardio regular rate and regular rhythm Psych mental status grossly normal, thought process normal, cooperative, affect normaland speech normal Assessment/Plan Assessment/Plan (1) Osteomyelitis of ankle or foot, left, acute: CODE(S): M86.172 - Other acute osteomyelitis, left ankle and foot (2) Osteomyelitis of ankle, left, acute: CODE(S): M86.172 - Other acute osteomyelitis, left ankle and foot (3) Abscess of bursa, left ankle and foot: CODE(S): M71.072 - Abscess of bursa, left ankle and foot (4) Cellulitis of left lower limb: CODE(S): L03.116 - Cellulitis of left lower limb (5) Charcot foot due to diabetes mellitus: CODE(S): E11.610 - 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 arthropathy (6) Non-pressure chronic ulcer of left 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: CODE(S): L97.322 - Non-pressure chronic ulcer of left 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 (7) Other acute postprocedural pain: CODE(S): G89.18 - Other acute postprocedural pain (8) Type 2 diabetes mellitus with diabetic polyneuropathy: CODE(S): E11.42 - Type 2 diabetes mellitus with diabetic polyneuropathy QUALIFIERS: Diabetes mellitus salvage determiner insulin use: without nursing home use Qualified Code(s): E11.42 - Type 2 diabetes mellitus with diabetic polyneuropathy (9) Non-pressure chronic ulcer of other part of left foot with necrosis of muscle: CODE(S): L97.523 - Non-pressure chronic ulcer of other part of left foot with necrosis of muscle (10) Gas gangrene of foot: CODE(S): A48.0 - Gas gangrene (11) Diabetic infection of left foot: CODE(S): E11.628 - Type 2 diabetes mellitus with other skin complications;L08.9 - Local infection of the skin and subcutaneous tissue, unspecified (12) Non-pressure chronic ulcer of other part of left foot with necrosis of bone: CODE(S): L97.524 - Non-pressure chronic ulcer of other part of left foot with necrosis of bone (13) Cellulitis: CODE(S): L03.90 - Cellulitis, unspecified QUALIFIERS: Site of cellulitis: extremity Site of cellulitis of extremity: lower extremity Laterality: left Qualified Code(s): L03.116 - Cellulitis of left lower limb (14) Hypertension: CODE(S): I10 - Essential (primary) hypertension QUALIFIERS: Hypertension type: primary hypertension Qualified Code(s): I10 - Essential (primary) hypertension PLAN: Plan The patient appears to be tolerating hyperbaric oxygen therapy well, which will be continued as per their medical treatment plan. 10/31/23 1031 <Electronically signed by Saba Park NP PHYSICAL GEOGRAPHER-C> Cosigner Signature (if applicable): CC: ~ Signed [facility] Work Phone: [phone]) 302-272803-22-2024 Progress note Author Mercedes Mejia [facility] October 28, 2023 12:02pm Note Date/Time October 28, 2023 11: 56am [facility] [address] [place], [place] [address] [address] Progress Note - Wound Care HBO 10/28/23 1154 MR#: [id number] Acct: [id number] Name: SNEHA WEI Jr. Rep #:[id number] : 1980 43 From: Mercedes Mejia DO PCP: Dr. Liliane Epps DO Status:REG RCR Location: History of Present Illness Date of Service: 10/28/23 Chief Complaint: Diabetic left foot infection with gas gangrene and osteomyelitis; Li grade 3 diabetic foot infection. History of Wound: 43-year-old male status post left Charcot reconstruction. Denies constitutional symptoms. Wound is improving today. Progress of Wound: The patient underwent his 26th hyperbaric oxygen therapy session today. The patient is scheduled for a total of 30 such sessions. Objective Data Objective Data Vital Signs: Vital Signs Temp Pulse Resp BP O2 Del Method O2 Flow Rate 96.7 F L 84 18 130/81 H Room Air 99 10/28/23 08:38 10/28/23 08:38 10/28/23 08:38 10/28/23 08:38 10/25/23 11:23 10/07/23 00:29 Oxygen Flow Rate (L/min) 99 Oxygen Delivery Method Room Air Weight: 113.398 kg Body Mass Index (BMI) 33.9 Lab / Micro Data Labs: Laboratory Results - last 24 hr 10/27/23 12:59: POC Glucose 163 H 10/27/23 15:06: POC Glucose 149 H 10/28/23 08:24: POC Glucose 160 H 10/28/23 10:27: POC Glucose 142 H Exam Physical Exam Const alert, oriented x3 and no apparent distress Psych mental status grossly normal, thought process normal, cooperative, affect normaland speech normal Nursing Assessment and Debridement Post-Debridement Measurements and Additional Note: Post-Debridement Measurements/Treatment - Nurse 1 - General Ulcer Assessment Start: 10/07/23 08:27 Freq: Status: Active Protocol: GWEN Activity Type Activity Date Activity User E-sign Co-sign Detail Recorded Client Recorded Date Recorded By Document 10/25/23 11:23 KW Desktop 10/25/23 11:40 KW 10/25/23 11:23 - Today's Visit Information Type of service Follow-up Visit (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 ) Arrival Mode Wheelchair Accompanied by STEP FATHER Patient Identification Verified (Name & Yes ) Height and Weight Body Mass Index (BMI) 33.9 BMI Classification Obese Vital Signs Temperature (97.8 F-99.1 F) 97.6 F L Temperature Source Temporal Pulse Rate (60-100) 97 Pulse Location Monitor Respiratory Rate (12-18) 18 Respiratory rate source Observation Oxygen Delivery Method Room Air Blood Pressure (90/60-120/80) 129/76 H Blood Pressure Mean (mm Hg) 93 Source Monitor Position Semi-Fowlers Blood Pressure Location Left Arm History Since Last Visit- (Skip if this is Patient's initial visit) Have you changed medications since your No last visit? Any new allergies or adverse reactions No Had a fall/change in ADL's that may No increase risk of falls Signs or symptoms of abuse and/or No neglect since last visit Have you been in the hospital since your No last visit? Has dressing in place as prescribed Yes Has compression in place as prescribed Yes Has offloadiing in place as prescribed Yes Experienced any changes in pain level or No management Left Footwear Slipper Right Footwear Regular Shoe Pain Scale: 0-10 Numeric Is Patient Pain Free? Yes WC - Nurse 1 - General Ulcer Measurement Start: 10/07/23 08:27 Freq: Status: Active Protocol: Activity Type Activity Date Activity User E-sign Co-sign Detail Recorded Client Recorded Date Recorded By Document 10/25/23 11:23 KW Desktop 10/25/23 11:40 KW 10/25/23 11:23 Wound Center Nurse 1 8-left lateral inferior foot -Current Size (cm) - Length 0.1 -Current Size (cm) - Width 0.1 -Current Size (cm) - Depth 0.1 -Total Square Cm 0.01 -Exudate Amt None Present -Texture ([place]-wound Skin Appearance) Assessed -Moisture ([place]-wound Skin Appearance) Assessed -Temperature ([place]-wound Skin No Abnormality Appearance) (Pt Warm) -Ulcer Cleansing Soap and Water -Foul Odor after Cleansing No -Anesthetic Used 4% Lidocaine Solution 7. L lateral ankle superior -Current Size (cm) - Length 0.4 -Current Size (cm) - Width 0.2 -Current Size (cm) - Depth 0.2 -Total Square Cm 0.08 -Exudate Amt None Present -Wound Margin Distinct, Outline Attached -Granulation Amt Large (67-100%) -Granulation Quality Red -Texture ([place]-wound Skin Appearance) Assessed -Moisture ([place]-wound Skin Appearance) Assessed -Color ([place]-wound Skin Appearance) Assessed -Temperature ([place]-wound Skin No Abnormality Appearance) (Pt Warm) -Ulcer Cleansing Soap and Water -Foul Odor after Cleansing No -Anesthetic Used 4% Lidocaine Solution 6. L medial ankle -Current Size (cm) - Length 0.8 -Current Size (cm) - Width 0.5 -Current Size (cm) - Depth 0.4 -Total Square Cm 0.40 -Exudate Amt Medium -Exudate Type Serosanguineous -Wound Margin Distinct, Outline Attached -Granulation Amt Large (67-100%) -Granulation Quality Red -Texture ([place]-wound Skin Appearance) Assessed -Moisture ([place]-wound Skin Appearance) Assessed -Color ([place]-wound Skin Appearance) Assessed -Temperature ([place]-wound Skin No Abnormality Appearance) (Pt Warm) -Ulcer Cleansing Soap and Water -Foul Odor after Cleansing No -Anesthetic Used 4% Lidocaine Solution WC - Nurse 2 - General Ulcer CM Notes Start: 10/07/23 08:27 Freq: Status: Active Protocol: Activity Type Activity Date Activity User E-sign Co-sign Detail Recorded Client Recorded Date Recorded By Document 10/25/23 11:46 Laptop 10/25/23 11:52 10/25/23 11:46 Wound Center Nurse 2 8-left lateral inferior foot -Time 11:47 -Correct Patient Yes -Correct Side, Site, Position Yes -Correct Procedure Yes -Procedure Performed Yes -Type of Procedure Debridement -Clinical Debridement Subcutaneous -Tissue Removed Subcutaneous -Post Debridement (cm) - Length 0.5 -Post Debridement (cm) - Width 0.2 -Post Debridement (cm) - Depth 0.2 -Total Square (Post) (cm) 0.10 -Area of Debridement (cm) - Length 0.5 -Area of Debridement (cm) - Width 0.2 -Total Square (Area) (cm) 0.10 -Tunneling No -Undermining/Tunneling No -Circular Undermining No -Wound/Ulcer Outcome Not Healed -Ulcer Cleansing Rinsed/ Irrigated with Saline -Foul Odor after Cleansing No -Bioengineered Tissue No -Bleeding Controlled with Pressure -Treatment Response Procedure Tolerated Well -Offloading No -Debridement - Subq, 20sq cm No 7. L lateral ankle superior -Time 11:47 -Correct Patient Yes -Correct Side, Site, Position Yes -Correct Procedure Yes -Procedure Performed Yes -Type of Procedure Debridement -Clinical Debridement Subcutaneous -Tissue Removed Subcutaneous -Post Debridement (cm) - Length 0.1 -Post Debridement (cm) - Width 0.1 -Post Debridement (cm) - Depth 0.1 -Total Square (Post) (cm) 0.01 -Area of Debridement (cm) - Length 0.1 -Area of Debridement (cm) - Width 0.1 -Total Square (Area) (cm) 0.01 -Tunneling No -Undermining/Tunneling No -Circular Undermining No -Wound/Ulcer Outcome Not Healed -Ulcer Cleansing Rinsed/ Irrigated with Saline -Foul Odor after Cleansing No -Bioengineered Tissue No -Bleeding Controlled with Pressure -Treatment Response Procedure Tolerated Well -Offloading Yes -Type of Offloading Camwalker -Debridement - Subq, 20sq cm No 6. L medial ankle -Time 11:48 -Correct Patient Yes -Correct Side, Site, Position Yes -Correct Procedure Yes -Procedure Performed Yes -Type of Procedure Debridement -Clinical Debridement Subcutaneous -Tissue Removed Subcutaneous -Post Debridement (cm) - Length 0.8 -Post Debridement (cm) - Width 0.5 -Post Debridement (cm) - Depth 0.4 -Total Square (Post) (cm) 0.40 -Area of Debridement (cm) - Length 0.8 -Area of Debridement (cm) - Width 0.5 -Total Square (Area) (cm) 0.40 -Tunneling Yes -Tunneling Position (O'clock) 12 -Tunneling Distance (cm) 2.2 -Undermining/Tunneling No -Circular Undermining No -Wound/Ulcer Outcome Not Healed -Ulcer Cleansing Rinsed/ Irrigated with Saline -Foul Odor after Cleansing No -Bioengineered Tissue No -Bleeding Controlled with Pressure -Treatment Response Procedure Tolerated Well -Offloading Yes -Type of Offloading Camwalker -Debridement - Subq, 20sq cm Yes Pain Scale: 0-10 Numeric Is Patient Pain Free? Yes WC - Nurse 3 - General Ulcer D/C NN Start: 10/07/23 08:27 Freq: Status: Active Protocol: Activity Type Activity Date Activity User E-sign Co-sign Detail Recorded Client Recorded Date Recorded By Document 10/25/23 12:20 RB Desktop 10/25/23 12:21 RB 10/25/23 12:20 Wound Care Center Nurse 3 8-left lateral inferior foot -Ulcer Cleansing Rinsed/ Irrigated with Saline -Primary Dressing Applied C Hydrogel ($) -Primary Dressing Covered/Secured with Dry Gauze,Dry Gauze & Roll Gauze,Secured with Tape 7. L lateral ankle superior -Other Dressing hydrogel -Primary Dressing Covered/Secured with Dry Gauze & Roll Gauze, Secured with Tape 6. L medial ankle -Other Dressing hydrogel -Primary Dressing Covered/Secured with Dry Gauze,Dry Gauze & Roll Gauze,Secured with Tape Treatment Response Procedure Tolerated Well Pain Scale: 0-10 Numeric Is Patient Pain Free? Yes WC - Visit Discharge Discharge Condition Stable Ambulatory Status Wheelchair Transportation Private Auto Medication Reconcilliation completed & No provided to patient/care provider Clinical Summary of Care Provided Yes Notes: will apply martha wrap after HBO treatment Assessment/Plan Assessment/Plan (1) Osteomyelitis of ankle or foot, left, acute: CODE(S): M86.172 - Other acute osteomyelitis, left ankle and foot (2) Osteomyelitis of ankle, left, acute: CODE(S): M86.172 - Other acute osteomyelitis, left ankle and foot (3) Abscess of bursa, left ankle and foot: CODE(S): M71.072 - Abscess of bursa, left ankle and foot (4) Cellulitis of left lower limb: CODE(S): L03.116 - Cellulitis of left lower limb (5) Charcot foot due to diabetes mellitus: CODE(S): E11.610 - 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 arthropathy (6) Non-pressure chronic ulcer of left 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: CODE(S): L97.322 - Non-pressure chronic ulcer of left 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 (7) Other acute postprocedural pain: CODE(S): G89.18 - Other acute postprocedural pain (8) Type 2 diabetes mellitus with diabetic polyneuropathy: CODE(S): E11.42 - Type 2 diabetes mellitus with diabetic polyneuropathy QUALIFIERS: Diabetes mellitus nursing home insulin use: without nursing home use Qualified Code(s): E11.42 - Type 2 diabetes mellitus with diabetic polyneuropathy (9) Non-pressure chronic ulcer of other part of left foot with necrosis of muscle: CODE(S): L97.523 - Non-pressure chronic ulcer of other part of left foot with necrosis of muscle (10) Gas gangrene of foot: CODE(S): A48.0 - Gas gangrene (11) Diabetic infection of left foot: CODE(S): E11.628 - Type 2 diabetes mellitus with other skin complications;L08.9 - Local infection of the skin and subcutaneous tissue, unspecified (12) Non-pressure chronic ulcer of other part of left foot with necrosis of bone: CODE(S): L97.524 - Non-pressure chronic ulcer of other part of left foot with necrosis of bone (13) Cellulitis: CODE(S): L03.90 - Cellulitis, unspecified QUALIFIERS: Site of cellulitis: extremity Site of cellulitis of extremity: lower extremity Laterality: left Qualified Code(s): L03.116 - Cellulitis of left lower limb (14) Hypertension: CODE(S): I10 - Essential (primary) hypertension QUALIFIERS: Hypertension type: primary hypertension Qualified Code(s): I10 - Essential (primary) hypertension PLAN: Plan The patient appears to be tolerating hyperbaric oxygen therapy well, which will be continued as per their medical treatment plan. 10/28/23 1202 <Electronically signed by Mercedes Mejia DO> Cosigner Signature (if applicable): CC: ~ Signed [facility] Work Phone: [phone]) 420-285803-21-2024 Progress note Author Saba Park [facility] October 27, 2023 3:45pm Note Date/Time October 27, 2023 1:1 5pm [facility] [address] [place] [address] Progress Note - Wound Care HBO 10/27/23 1314 MR#: [id number] Acct: [id number] Name: ERIBERTOSNEHA FRAGOSO Rep #:[id number] : 1980 43 From: Saba sanabria NP PHYSICAL GEOGRAPHER-C PCP: Dr. Liliane Epps, Status:REG RCR Location: History of Present Illness Date of Service: 10/27/23 Chief Complaint: Diabetic left foot infection with gas gangrene and osteomyelitis; Li grade 3 diabetic foot infection. History of Wound: 43-year-old male status post left Charcot reconstruction. Denies constitutional symptoms. Wound is improving today. Subjective Subjective The patient underwent his 25th hyperbaric oxygen therapy session today. The patient is scheduled for a total of 30 such sessions. Tolerance of hyperbaric oxygen therapy: Hyperbaric oxygen therapy was provided as per the facility's protocol. Hyperbaric oxygen therapy was undertaken at 2 krzysztof and 100% oxygen for 90 minutes without air breaks. The patient tolerated hyperbaric oxygen therapy well, without complaints or complications. Upon emergence from the hyperbaric chamber, the patient's vital signs remained stable. Blood sugar levels were monitored both before and after hyperbaric oxygen therapy, and found to be satisfactory. Objective Data Objective Data Vital Signs: Vital Signs Temp Pulse Resp BP O2 Del Method O2 Flow Rate 97.6 F L 86 18 125/77 H Room Air 99 10/26/23 13:07 10/26/23 13:07 10/26/23 13:07 10/26/23 13:07 10/25/23 11:23 10/07/23 00:29 Oxygen Flow Rate (L/min) 99 Oxygen Delivery Method Room Air Weight: 250 lb Body Mass Index (BMI) 33.9 Lab / Micro Data Labs: Laboratory Results - last 24 hr 10/26/23 14:57: POC Glucose 211 H Exam Physical Exam Const alert, oriented x3 and no apparent distress HEENT normocephalic Tympanic Membrane: TM's normal bilaterally Resp normal respiratory effort Effort and Inspection: able to speak in complete sentences Auscultation: clear to auscultation bilaterally Cardio regular rate and regular rhythm Psych mental status grossly normal, thought process normal, cooperative, affect normaland speech normal Nursing Assessment and Debridement Post-Debridement Measurements and Additional Note: Post-Debridement Measurements/Treatment WC - Nurse 1 - General Ulcer Assessment Start: 10/07/23 08:27 Freq: Status: Active Protocol: GWEN Activity Type Activity Date Activity User E-sign Co-sign Detail Recorded Client Recorded Date Recorded By Document 10/25/23 11:23 KW Desktop 10/25/23 11:40 KW 10/25/23 11:23 - Today's Visit Information Type of service Follow-up Visit (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 ) Arrival Mode Wheelchair Accompanied by STEP FATHER Patient Identification Verified (Name & Yes ) Height and Weight Body Mass Index (BMI) 33.9 BMI Classification Obese Vital Signs Temperature (97.8 F-99.1 F) 97.6 F L Temperature Source Temporal Pulse Rate (60-100) 97 Pulse Location Monitor Respiratory Rate (12-18) 18 Respiratory rate source Observation Oxygen Delivery Method Room Air Blood Pressure (90/60-120/80) 129/76 H Blood Pressure Mean (mm Hg) 93 Source Monitor Position Semi-Fowlers Blood Pressure Location Left Arm History Since Last Visit- (Skip if this is Patient's initial visit) Have you changed medications since your No last visit? Any new allergies or adverse reactions No Had a fall/change in ADL's that may No increase risk of falls Signs or symptoms of abuse and/or No neglect since last visit Have you been in the hospital since your No last visit? Has dressing in place as prescribed Yes Has compression in place as prescribed Yes Has offloadiing in place as prescribed Yes Experienced any changes in pain level or No management Left Footwear Slipper Right Footwear Regular Shoe Pain Scale: 0-10 Numeric Is Patient Pain Free? Yes WC - Nurse 1 - General Ulcer Measurement Start: 10/07/23 08:27 Freq: Status: Active Protocol: Activity Type Activity Date Activity User E-sign Co-sign Detail Recorded Client Recorded Date Recorded By Document 10/25/23 11:23 KW Desktop 10/25/23 11:40 KW 10/25/23 11:23 Wound Center Nurse 1 8-left lateral inferior foot -Current Size (cm) - Length 0.1 -Current Size (cm) - Width 0.1 -Current Size (cm) - Depth 0.1 -Total Square Cm 0.01 -Exudate Amt None Present -Texture ([place]-wound Skin Appearance) Assessed -Moisture ([place]-wound Skin Appearance) Assessed -Temperature ([place]-wound Skin No Abnormality Appearance) (Pt Warm) -Ulcer Cleansing Soap and Water -Foul Odor after Cleansing No -Anesthetic Used 4% Lidocaine Solution 7. L lateral ankle superior -Current Size (cm) - Length 0.4 -Current Size (cm) - Width 0.2 -Current Size (cm) - Depth 0.2 -Total Square Cm 0.08 -Exudate Amt None Present -Wound Margin Distinct, Outline Attached -Granulation Amt Large (67-100%) -Granulation Quality Red -Texture ([place]-wound Skin Appearance) Assessed -Moisture ([place]-wound Skin Appearance) Assessed -Color ([place]-wound Skin Appearance) Assessed -Temperature ([place]-wound Skin No Abnormality Appearance) (Pt Warm) -Ulcer Cleansing Soap and Water -Foul Odor after Cleansing No -Anesthetic Used 4% Lidocaine Solution 6. L medial ankle -Current Size (cm) - Length 0.8 -Current Size (cm) - Width 0.5 -Current Size (cm) - Depth 0.4 -Total Square Cm 0.40 -Exudate Amt Medium -Exudate Type Serosanguineous -Wound Margin Distinct, Outline Attached -Granulation Amt Large (67-100%) -Granulation Quality Red -Texture ([place]-wound Skin Appearance) Assessed -Moisture ([place]-wound Skin Appearance) Assessed -Color ([place]-wound Skin Appearance) Assessed -Temperature ([place]-wound Skin No Abnormality Appearance) (Pt Warm) -Ulcer Cleansing Soap and Water -Foul Odor after Cleansing No -Anesthetic Used 4% Lidocaine Solution WC - Nurse 2 - General Ulcer CM Notes Start: 10/07/23 08:27 Freq: Status: Active Protocol: Activity Type Activity Date Activity User E-sign Co-sign Detail Recorded Client Recorded Date Recorded By Document 10/25/23 11:46 Laptop 10/25/23 11:52 10/25/23 11:46 Wound Center Nurse 2 8-left lateral inferior foot -Time 11:47 -Correct Patient Yes -Correct Side, Site, Position Yes -Correct Procedure Yes -Procedure Performed Yes -Type of Procedure Debridement -Clinical Debridement Subcutaneous -Tissue Removed Subcutaneous -Post Debridement (cm) - Length 0.5 -Post Debridement (cm) - Width 0.2 -Post Debridement (cm) - Depth 0.2 -Total Square (Post) (cm) 0.10 -Area of Debridement (cm) - Length 0.5 -Area of Debridement (cm) - Width 0.2 -Total Square (Area) (cm) 0.10 -Tunneling No -Undermining/Tunneling No -Circular Undermining No -Wound/Ulcer Outcome Not Healed -Ulcer Cleansing Rinsed/ Irrigated with Saline -Foul Odor after Cleansing No -Bioengineered Tissue No -Bleeding Controlled with Pressure -Treatment Response Procedure Tolerated Well -Offloading No -Debridement - Subq, 1st 20sq cm No 7. L lateral ankle superior -Time 11:47 -Correct Patient Yes -Correct Side, Site, Position Yes -Correct Procedure Yes -Procedure Performed Yes -Type of Procedure Debridement -Clinical Debridement Subcutaneous -Tissue Removed Subcutaneous -Post Debridement (cm) - Length 0.1 -Post Debridement (cm) - Width 0.1 -Post Debridement (cm) - Depth 0.1 -Total Square (Post) (cm) 0.01 -Area of Debridement (cm) - Length 0.1 -Area of Debridement (cm) - Width 0.1 -Total Square (Area) (cm) 0.01 -Tunneling No -Undermining/Tunneling No -Circular Undermining No -Wound/Ulcer Outcome Not Healed -Ulcer Cleansing Rinsed/ Irrigated with Saline -Foul Odor after Cleansing No -Bioengineered Tissue No -Bleeding Controlled with Pressure -Treatment Response Procedure Tolerated Well -Offloading Yes -Type of Offloading Camwalker -Debridement - Subq, 20sq cm No 6. L medial ankle -Time 11:48 -Correct Patient Yes -Correct Side, Site, Position Yes -Correct Procedure Yes -Procedure Performed Yes -Type of Procedure Debridement -Clinical Debridement Subcutaneous -Tissue Removed Subcutaneous -Post Debridement (cm) - Length 0.8 -Post Debridement (cm) - Width 0.5 -Post Debridement (cm) - Depth 0.4 -Total Square (Post) (cm) 0.40 -Area of Debridement (cm) - Length 0.8 -Area of Debridement (cm) - Width 0.5 -Total Square (Area) (cm) 0.40 -Tunneling Yes -Tunneling Position (O'clock) 12 -Tunneling Distance (cm) 2.2 -Undermining/Tunneling No -Circular Undermining No -Wound/Ulcer Outcome Not Healed -Ulcer Cleansing Rinsed/ Irrigated with Saline -Foul Odor after Cleansing No -Bioengineered Tissue No -Bleeding Controlled with Pressure -Treatment Response Procedure Tolerated Well -Offloading Yes -Type of Offloading Camwalker -Debridement - Subq, 1st 20sq cm Yes Pain Scale: 0-10 Numeric Is Patient Pain Free? Yes WC - Nurse 3 - General Ulcer D/C NN Start: 10/07/23 08:27 Freq: Status: Active Protocol: Activity Type Activity Date Activity User E-sign Co-sign Detail Recorded Client Recorded Date Recorded By Document 10/25/23 12:20 RB Desktop 10/25/23 12:21 RB 10/25/23 12:20 Wound Care Center Nurse 3 8-left lateral inferior foot -Ulcer Cleansing Rinsed/ Irrigated with Saline -Primary Dressing Applied C Hydrogel ($) -Primary Dressing Covered/Secured with Dry Gauze,Dry Gauze & Roll Gauze,Secured with Tape 7. L lateral ankle superior -Other Dressing hydrogel -Primary Dressing Covered/Secured with Dry Gauze & Roll Gauze, Secured with Tape 6. L medial ankle -Other Dressing hydrogel -Primary Dressing Covered/Secured with Dry Gauze,Dry Gauze & Roll Gauze,Secured with Tape Treatment Response Procedure Tolerated Well Pain Scale: 0-10 Numeric Is Patient Pain Free? Yes WC - Visit Discharge Discharge Condition Stable Ambulatory Status Wheelchair Transportation Private Auto Medication Reconcilliation completed & No provided to patient/care provider Clinical Summary of Care Provided Yes Notes: will apply martha wrap after HBO treatment Assessment/Plan Assessment/Plan (1) Osteomyelitis of ankle or foot, left, acute: CODE(S): M86.172 - Other acute osteomyelitis, left ankle and foot (2) Osteomyelitis of ankle, left, acute: CODE(S): M86.172 - Other acute osteomyelitis, left ankle and foot (3) Abscess of bursa, left ankle and foot: CODE(S): M71.072 - Abscess of bursa, left ankle and foot (4) Cellulitis of left lower limb: CODE(S): L03.116 - Cellulitis of left lower limb (5) Charcot foot due to diabetes mellitus: CODE(S): E11.610 - 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 arthropathy (6) Non-pressure chronic ulcer of left 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: CODE(S): L97.322 - Non-pressure chronic ulcer of left 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 (7) Other acute postprocedural pain: CODE(S): G89.18 - Other acute postprocedural pain (8) Type 2 diabetes mellitus with diabetic polyneuropathy: CODE(S): E11.42 - Type 2 diabetes mellitus with diabetic polyneuropathy QUALIFIERS: Diabetes mellitus salvage determiner insulin use: without salvage determiner use Qualified Code(s): E11.42 - Type 2 diabetes mellitus with diabetic polyneuropathy (9) Non-pressure chronic ulcer of other part of left foot with necrosis of muscle: CODE(S): L97.523 - Non-pressure chronic ulcer of other part of left foot with necrosis of muscle (10) Gas gangrene of foot: CODE(S): A48.0 - Gas gangrene (11) Diabetic infection of left foot: CODE(S): E11.628 - Type 2 diabetes mellitus with other skin complications;L08.9 - Local infection of the skin and subcutaneous tissue, unspecified (12) Non-pressure chronic ulcer of other part of left foot with necrosis of bone: CODE(S): L97.524 - Non-pressure chronic ulcer of other part of left foot with necrosis of bone (13) Cellulitis: CODE(S): L03.90 - Cellulitis, unspecified QUALIFIERS: Site of cellulitis: extremity Site of cellulitis of extremity: lower extremity Laterality: left Qualified Code(s): L03.116 - Cellulitis of left lower limb (14) Hypertension: CODE(S): I10 - Essential (primary) hypertension QUALIFIERS: Hypertension type: primary hypertension Qualified Code(s): I10 - Essential (primary) hypertension PLAN: Plan The patient appears to be tolerating hyperbaric oxygen therapy well, which will be continued as per their medical treatment plan. 10/27/23 1545 <Electronically signed by Saba JOHNSONC> Cosigner Signature (if applicable): CC: ~ Signed [facility] Work Phone: [phone]) 415-769503-21-2024 Progress note Author Saba Park [facility] October 27, 2023 1:15pm Note Date/Time October 26, 2023 1:0 6pm [facility] [address] [place] [address] Progress Note - Wound Care HBO 10/26/23 1305 MR#: [id number] Acct: [id number] Name: ERIBERTOSNEHA FRAGOSO Rep #:[id number] : 1980 43 From: Saba sanabria NP PHYSICAL GEOGRAPHER-C PCP: Dr. Liliane Epps, DO Status:REG RCR Location: History of Present Illness Date of Service: 10/26/23 Chief Complaint: Diabetic left foot infection with gas gangrene and osteomyelitis; Li grade 3 diabetic foot infection. History of Wound: 43-year-old male status post left Charcot reconstruction. Denies constitutional symptoms. Wound is improving today. Subjective Subjective The patient underwent his 24th hyperbaric oxygen therapy session today. The patient is scheduled for a total of 30 such sessions. Tolerance of hyperbaric oxygen therapy: Hyperbaric oxygen therapy was provided as per the facility's protocol. Hyperbaric oxygen therapy was undertaken at 2 krzysztof and 100% oxygen for 90 minutes without air breaks. The patient tolerated hyperbaric oxygen therapy well, without complaints or complications. Upon emergence from the hyperbaric chamber, the patient's vital signs remained stable. Blood sugar levels were monitored both before and after hyperbaric oxygen therapy, and found to be satisfactory. Objective Data Objective Data Vital Signs: Vital Signs Temp Pulse Resp BP O2 Del Method O2 Flow Rate 96.5 F L 86 18 132/82 H Room Air 99 10/25/23 12:59 10/25/23 12:59 10/25/23 12:59 10/25/23 12:59 10/25/23 11:23 10/07/23 00:29 Oxygen Flow Rate (L/min) 99 Oxygen Delivery Method Room Air Weight: 250 lb Body Mass Index (BMI) 33.9 Lab / Micro Data Labs: Laboratory Results - last 24 hr 10/25/23 14:39: POC Glucose 118 H Exam Physical Exam Const alert, oriented x3 and no apparent distress HEENT normocephalic Tympanic Membrane: TM's normal bilaterally Resp normal respiratory effort Effort and Inspection: able to speak in complete sentences Auscultation: clear to auscultation bilaterally Cardio regular rate and regular rhythm Psych mental status grossly normal, thought process normal, cooperative, affect normaland speech normal Nursing Assessment and Debridement Post-Debridement Measurements and Additional Note: Post-Debridement Measurements/Treatment - Nurse 1 - General Ulcer Assessment Start: 10/07/23 08:27 Freq: Status: Active Protocol: [email or web address].LOWEXT Activity Type Activity Date Activity User E-sign Co-sign Detail Recorded Client Recorded Date Recorded By Document 10/25/23 11:23 KW Desktop 10/25/23 11:40 KW 10/25/23 11:23 - Today's Visit Information Type of service Follow-up Visit (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 ) Arrival Mode Wheelchair Accompanied by STEP FATHER Patient Identification Verified (Name & Yes ) Height and Weight Body Mass Index (BMI) 33.9 BMI Classification Obese Vital Signs Temperature (97.8 F-99.1 F) 97.6 F L Temperature Source Temporal Pulse Rate (60-100) 97 Pulse Location Monitor Respiratory Rate (12-18) 18 Respiratory rate source Observation Oxygen Delivery Method Room Air Blood Pressure (90/60-120/80) 129/76 H Blood Pressure Mean (mm Hg) 93 Source Monitor Position Semi-Fowlers Blood Pressure Location Left Arm History Since Last Visit- (Skip if this is Patient's initial visit) Have you changed medications since your No last visit? Any new allergies or adverse reactions No Had a fall/change in ADL's that may No increase risk of falls Signs or symptoms of abuse and/or No neglect since last visit Have you been in the hospital since your No last visit? Has dressing in place as prescribed Yes Has compression in place as prescribed Yes Has offloadiing in place as prescribed Yes Experienced any changes in pain level or No management Left Footwear Slipper Right Footwear Regular Shoe Pain Scale: 0-10 Numeric Is Patient Pain Free? Yes - Nurse 1 - General Ulcer Measurement Start: 10/07/23 08:27 Freq: Status: Active Protocol: Activity Type Activity Date Activity User E-sign Co-sign Detail Recorded Client Recorded Date Recorded By Document 10/25/23 11:23 KW Desktop 10/25/23 11:40 KW 10/25/23 11:23 Wound Center Nurse 1 8-left lateral inferior foot -Current Size (cm) - Length 0.1 -Current Size (cm) - Width 0.1 -Current Size (cm) - Depth 0.1 -Total Square Cm 0.01 -Exudate Amt None Present -Texture ([place]-wound Skin Appearance) Assessed -Moisture ([place]-wound Skin Appearance) Assessed -Temperature ([place]-wound Skin No Abnormality Appearance) (Pt Warm) -Ulcer Cleansing Soap and Water -Foul Odor after Cleansing No -Anesthetic Used 4% Lidocaine Solution 7. L lateral ankle superior -Current Size (cm) - Length 0.4 -Current Size (cm) - Width 0.2 -Current Size (cm) - Depth 0.2 -Total Square Cm 0.08 -Exudate Amt None Present -Wound Margin Distinct, Outline Attached -Granulation Amt Large (67-100%) -Granulation Quality Red -Texture ([place]-wound Skin Appearance) Assessed -Moisture ([place]-wound Skin Appearance) Assessed -Color ([place]-wound Skin Appearance) Assessed -Temperature ([place]-wound Skin No Abnormality Appearance) (Pt Warm) -Ulcer Cleansing Soap and Water -Foul Odor after Cleansing No -Anesthetic Used 4% Lidocaine Solution 6. L medial ankle -Current Size (cm) - Length 0.8 -Current Size (cm) - Width 0.5 -Current Size (cm) - Depth 0.4 -Total Square Cm 0.40 -Exudate Amt Medium -Exudate Type Serosanguineous -Wound Margin Distinct, Outline Attached -Granulation Amt Large (67-100%) -Granulation Quality Red -Texture ([place]-wound Skin Appearance) Assessed -Moisture ([place]-wound Skin Appearance) Assessed -Color ([place]-wound Skin Appearance) Assessed -Temperature ([place]-wound Skin No Abnormality Appearance) (Pt Warm) -Ulcer Cleansing Soap and Water -Foul Odor after Cleansing No -Anesthetic Used 4% Lidocaine Solution WC - Nurse 2 - General Ulcer CM Notes Start: 10/07/23 08:27 Freq: Status: Active Protocol: Activity Type Activity Date Activity User E-sign Co-sign Detail Recorded Client Recorded Date Recorded By Document 10/25/23 11:46 Laptop 10/25/23 11:52 10/25/23 11:46 Wound Center Nurse 2 8-left lateral inferior foot -Time 11:47 -Correct Patient Yes -Correct Side, Site, Position Yes -Correct Procedure Yes -Procedure Performed Yes -Type of Procedure Debridement -Clinical Debridement Subcutaneous -Tissue Removed Subcutaneous -Post Debridement (cm) - Length 0.5 -Post Debridement (cm) - Width 0.2 -Post Debridement (cm) - Depth 0.2 -Total Square (Post) (cm) 0.10 -Area of Debridement (cm) - Length 0.5 -Area of Debridement (cm) - Width 0.2 -Total Square (Area) (cm) 0.10 -Tunneling No -Undermining/Tunneling No -Circular Undermining No -Wound/Ulcer Outcome Not Healed -Ulcer Cleansing Rinsed/ Irrigated with Saline -Foul Odor after Cleansing No -Bioengineered Tissue No -Bleeding Controlled with Pressure -Treatment Response Procedure Tolerated Well -Offloading No -Debridement - Subq, 20sq cm No 7. L lateral ankle superior -Time 11:47 -Correct Patient Yes -Correct Side, Site, Position Yes -Correct Procedure Yes -Procedure Performed Yes -Type of Procedure Debridement -Clinical Debridement Subcutaneous -Tissue Removed Subcutaneous -Post Debridement (cm) - Length 0.1 -Post Debridement (cm) - Width 0.1 -Post Debridement (cm) - Depth 0.1 -Total Square (Post) (cm) 0.01 -Area of Debridement (cm) - Length 0.1 -Area of Debridement (cm) - Width 0.1 -Total Square (Area) (cm) 0.01 -Tunneling No -Undermining/Tunneling No -Circular Undermining No -Wound/Ulcer Outcome Not Healed -Ulcer Cleansing Rinsed/ Irrigated with Saline -Foul Odor after Cleansing No -Bioengineered Tissue No -Bleeding Controlled with Pressure -Treatment Response Procedure Tolerated Well -Offloading Yes -Type of Offloading Camwalker -Debridement - Subq, 20sq cm No 6. L medial ankle -Time 11:48 -Correct Patient Yes -Correct Side, Site, Position Yes -Correct Procedure Yes -Procedure Performed Yes -Type of Procedure Debridement -Clinical Debridement Subcutaneous -Tissue Removed Subcutaneous -Post Debridement (cm) - Length 0.8 -Post Debridement (cm) - Width 0.5 -Post Debridement (cm) - Depth 0.4 -Total Square (Post) (cm) 0.40 -Area of Debridement (cm) - Length 0.8 -Area of Debridement (cm) - Width 0.5 -Total Square (Area) (cm) 0.40 -Tunneling Yes -Tunneling Position (O'clock) 12 -Tunneling Distance (cm) 2.2 -Undermining/Tunneling No -Circular Undermining No -Wound/Ulcer Outcome Not Healed -Ulcer Cleansing Rinsed/ Irrigated with Saline -Foul Odor after Cleansing No -Bioengineered Tissue No -Bleeding Controlled with Pressure -Treatment Response Procedure Tolerated Well -Offloading Yes -Type of Offloading Camwalker -Debridement - Subq, 20sq cm Yes Pain Scale: 0-10 Numeric Is Patient Pain Free? Yes WC - Nurse 3 - General Ulcer D/C NN Start: 10/07/23 08:27 Freq: Status: Active Protocol: Activity Type Activity Date Activity User E-sign Co-sign Detail Recorded Client Recorded Date Recorded By Document 10/25/23 12:20 RB Desktop 10/25/23 12:21 RB 10/25/23 12:20 Wound Care Center Nurse 3 8-left lateral inferior foot -Ulcer Cleansing Rinsed/ Irrigated with Saline -Primary Dressing Applied C Hydrogel ($) -Primary Dressing Covered/Secured with Dry Gauze,Dry Gauze & Roll Gauze,Secured with Tape 7. L lateral ankle superior -Other Dressing hydrogel -Primary Dressing Covered/Secured with Dry Gauze & Roll Gauze, Secured with Tape 6. L medial ankle -Other Dressing hydrogel -Primary Dressing Covered/Secured with Dry Gauze,Dry Gauze & Roll Gauze,Secured with Tape Treatment Response Procedure Tolerated Well Pain Scale: 0-10 Numeric Is Patient Pain Free? Yes WC - Visit Discharge Discharge Condition Stable Ambulatory Status Wheelchair Transportation Private Auto Medication Reconcilliation completed & No provided to patient/care provider Clinical Summary of Care Provided Yes Notes: will apply martha wrap after HBO treatment Assessment/Plan Assessment/Plan (1) Osteomyelitis of ankle or foot, left, acute: CODE(S): M86.172 - Other acute osteomyelitis, left ankle and foot (2) Osteomyelitis of ankle, left, acute: CODE(S): M86.172 - Other acute osteomyelitis, left ankle and foot (3) Abscess of bursa, left ankle and foot: CODE(S): M71.072 - Abscess of bursa, left ankle and foot (4) Cellulitis of left lower limb: CODE(S): L03.116 - Cellulitis of left lower limb (5) Charcot foot due to diabetes mellitus: CODE(S): E11.610 - 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 arthropathy (6) Non-pressure chronic ulcer of left 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: CODE(S): L97.322 - Non-pressure chronic ulcer of left 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 (7) Other acute postprocedural pain: CODE(S): G89.18 - Other acute postprocedural pain (8) Type 2 diabetes mellitus with diabetic polyneuropathy: CODE(S): E11.42 - Type 2 diabetes mellitus with diabetic polyneuropathy QUALIFIERS: Diabetes mellitus salvage determiner insulin use: without nursing home use Qualified Code(s): E11.42 - Type 2 diabetes mellitus with diabetic polyneuropathy (9) Non-pressure chronic ulcer of other part of left foot with necrosis of muscle: CODE(S): L97.523 - Non-pressure chronic ulcer of other part of left foot with necrosis of muscle (10) Gas gangrene of foot: CODE(S): A48.0 - Gas gangrene (11) Diabetic infection of left foot: CODE(S): E11.628 - Type 2 diabetes mellitus with other skin complications;L08.9 - Local infection of the skin and subcutaneous tissue, unspecified (12) Non-pressure chronic ulcer of other part of left foot with necrosis of bone: CODE(S): L97.524 - Non-pressure chronic ulcer of other part of left foot with necrosis of bone (13) Cellulitis: CODE(S): L03.90 - Cellulitis, unspecified QUALIFIERS: Site of cellulitis: extremity Site of cellulitis of extremity: lower extremity Laterality: left Qualified Code(s): L03.116 - Cellulitis of left lower limb (14) Hypertension: CODE(S): I10 - Essential (primary) hypertension QUALIFIERS: Hypertension type: primary hypertension Qualified Code(s): I10 - Essential (primary) hypertension PLAN: Plan The patient appears to be tolerating hyperbaric oxygen therapy well, which will be continued as per their medical treatment plan. 10/27/23 1315 <Electronically signed by Saba Park NP, NP-C> Cosigner Signature (if applicable): CC: ~ Signed [facility] Work Phone: [phone] Progress note Author Saba Park [facility] October 25, 2023 3:37pm Note Date/Time October 25, 2023 12: 55pm [facility] [address] [place] [id number] Progress Note - Wound Care HBO 10/25/23 1254 MR#: [id number] Acct: [id number] Name: SNEHA WEI Jr. Rep #:[id number] : 1980 43 From: Saba sanabria NP PHYSICAL GEOGRAPHER-C PCP: Dr. Liliane Epps, DO Status:REG RCR Location: History of Present Illness Date of Service: 10/25/23 Chief Complaint: Diabetic left foot infection with gas gangrene and osteomyelitis; Li grade 3 diabetic foot infection. History of Wound: 43-year-old male status post left Charcot reconstruction. Denies constitutional symptoms. Wound is improving today. Progress of Wound: The patient underwent his 20th hyperbaric oxygen therapy session today. The patient is scheduled for a total of 30 such sessions. Subjective Subjective The patient underwent his 23rd hyperbaric oxygen therapy session today. The patient is scheduled for a total of 30 such sessions. Tolerance of hyperbaric oxygen therapy: Hyperbaric oxygen therapy was provided as per the facility's protocol. Hyperbaric oxygen therapy was undertaken at 2 krzysztof and 100% oxygen for 90 minutes without air breaks. The patient tolerated hyperbaric oxygen therapy well, without complaints or complications. Upon emergence from the hyperbaric chamber, the patient's vital signs remained stable. Blood sugar levels were monitored both before and after hyperbaric oxygen therapy, and found to be satisfactory. Objective Data Objective Data Vital Signs: Vital Signs Temp Pulse Resp BP O2 Del Method O2 Flow Rate 97.6 F L 97 18 129/76 H Room Air 99 10/25/23 11:23 10/25/23 11:23 10/25/23 11:23 10/25/23 11:23 10/25/23 11:23 10/07/23 00:29 Oxygen Flow Rate (L/min) 99 Oxygen Delivery Method Room Air Weight: 250 lb Body Mass Index (BMI) 33.9 Lab / Micro Data Labs: Laboratory Results - last 24 hr 10/24/23 12:48: POC Glucose 154 H 10/24/23 14:56: POC Glucose 128 H 10/25/23 12:21: POC Glucose 140 H Exam Physical Exam Const alert, oriented x3 and no apparent distress HEENT normocephalic Tympanic Membrane: TM's normal bilaterally Resp normal respiratory effort Effort and Inspection: able to speak in complete sentences Auscultation: clear to auscultation bilaterally Cardio regular rate and regular rhythm Psych mental status grossly normal, thought process normal, cooperative, affect normaland speech normal Nursing Assessment and Debridement Post-Debridement Measurements and Additional Note: Post-Debridement Measurements/Treatment WC - Nurse 1 - General Ulcer Assessment Start: 10/07/23 08:27 Freq: Status: Active Protocol: .BLAKE Activity Type Activity Date Activity User E-sign Co-sign Detail Recorded Client Recorded Date Recorded By Document 10/25/23 11:23 KW Itinerisktop 10/25/23 11:40 KW 10/25/23 11:23 - Today's Visit Information Type of service Follow-up Visit (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 ) Arrival Mode Wheelchair Accompanied by STEP FATHER Patient Identification Verified (Name & Yes ) Height and Weight Body Mass Index (BMI) 33.9 BMI Classification Obese Vital Signs Temperature (97.8 F-99.1 F) 97.6 F L Temperature Source Temporal Pulse Rate (60-100) 97 Pulse Location Monitor Respiratory Rate (12-18) 18 Respiratory rate source Observation Oxygen Delivery Method Room Air Blood Pressure (90/60-120/80) 129/76 H Blood Pressure Mean (mm Hg) 93 Source Monitor Position Semi-Fowlers Blood Pressure Location Left Arm History Since Last Visit- (Skip if this is Patient's initial visit) Have you changed medications since your No last visit? Any new allergies or adverse reactions No Had a fall/change in ADL's that may No increase risk of falls Signs or symptoms of abuse and/or No neglect since last visit Have you been in the hospital since your No last visit? Has dressing in place as prescribed Yes Has compression in place as prescribed Yes Has offloadiing in place as prescribed Yes Experienced any changes in pain level or No management Left Footwear Slipper Right Footwear Regular Shoe Pain Scale: 0-10 Numeric Is Patient Pain Free? Yes - Nurse 1 - General Ulcer Measurement Start: 10/07/23 08:27 Freq: Status: Active Protocol: Activity Type Activity Date Activity User E-sign Co-sign Detail Recorded Client Recorded Date Recorded By Document 10/25/23 11:23 KW Linux Voiceop 10/25/23 11:40 KW 10/25/23 11:23 Wound Center Nurse 1 8-left lateral inferior foot -Current Size (cm) - Length 0.1 -Current Size (cm) - Width 0.1 -Current Size (cm) - Depth 0.1 -Total Square Cm 0.01 -Exudate Amt None Present -Texture ([place]-wound Skin Appearance) Assessed -Moisture ([place]-wound Skin Appearance) Assessed -Temperature ([place]-wound Skin No Abnormality Appearance) (Pt Warm) -Ulcer Cleansing Soap and Water -Foul Odor after Cleansing No -Anesthetic Used 4% Lidocaine Solution 7. L lateral ankle superior -Current Size (cm) - Length 0.4 -Current Size (cm) - Width 0.2 -Current Size (cm) - Depth 0.2 -Total Square Cm 0.08 -Exudate Amt None Present -Wound Margin Distinct, Outline Attached -Granulation Amt Large (67-100%) -Granulation Quality Red -Texture ([place]-wound Skin Appearance) Assessed -Moisture ([place]-wound Skin Appearance) Assessed -Color ([place]-wound Skin Appearance) Assessed -Temperature ([place]-wound Skin No Abnormality Appearance) (Pt Warm) -Ulcer Cleansing Soap and Water -Foul Odor after Cleansing No -Anesthetic Used 4% Lidocaine Solution 6. L medial ankle -Current Size (cm) - Length 0.8 -Current Size (cm) - Width 0.5 -Current Size (cm) - Depth 0.4 -Total Square Cm 0.40 -Exudate Amt Medium -Exudate Type Serosanguineous -Wound Margin Distinct, Outline Attached -Granulation Amt Large (67-100%) -Granulation Quality Red -Texture ([place]-wound Skin Appearance) Assessed -Moisture ([place]-wound Skin Appearance) Assessed -Color ([place]-wound Skin Appearance) Assessed -Temperature ([place]-wound Skin No Abnormality Appearance) (Pt Warm) -Ulcer Cleansing Soap and Water -Foul Odor after Cleansing No -Anesthetic Used 4% Lidocaine Solution WC - Nurse 2 - General Ulcer CM Notes Start: 10/07/23 08:27 Freq: Status: Active Protocol: Activity Type Activity Date Activity User E-sign Co-sign Detail Recorded Client Recorded Date Recorded By Document 10/25/23 11:46 Laptop 10/25/23 11:52 10/25/23 11:46 Wound Center Nurse 2 8-left lateral inferior foot -Time 11:47 -Correct Patient Yes -Correct Side, Site, Position Yes -Correct Procedure Yes -Procedure Performed Yes -Type of Procedure Debridement -Clinical Debridement Subcutaneous -Tissue Removed Subcutaneous -Post Debridement (cm) - Length 0.5 -Post Debridement (cm) - Width 0.2 -Post Debridement (cm) - Depth 0.2 -Total Square (Post) (cm) 0.10 -Area of Debridement (cm) - Length 0.5 -Area of Debridement (cm) - Width 0.2 -Total Square (Area) (cm) 0.10 -Tunneling No -Undermining/Tunneling No -Circular Undermining No -Wound/Ulcer Outcome Not Healed -Ulcer Cleansing Rinsed/ Irrigated with Saline -Foul Odor after Cleansing No -Bioengineered Tissue No -Bleeding Controlled with Pressure -Treatment Response Procedure Tolerated Well -Offloading No -Debridement - Subq, 1st 20sq cm No 7. L lateral ankle superior -Time 11:47 -Correct Patient Yes -Correct Side, Site, Position Yes -Correct Procedure Yes -Procedure Performed Yes -Type of Procedure Debridement -Clinical Debridement Subcutaneous -Tissue Removed Subcutaneous -Post Debridement (cm) - Length 0.1 -Post Debridement (cm) - Width 0.1 -Post Debridement (cm) - Depth 0.1 -Total Square (Post) (cm) 0.01 -Area of Debridement (cm) - Length 0.1 -Area of Debridement (cm) - Width 0.1 -Total Square (Area) (cm) 0.01 -Tunneling No -Undermining/Tunneling No -Circular Undermining No -Wound/Ulcer Outcome Not Healed -Ulcer Cleansing Rinsed/ Irrigated with Saline -Foul Odor after Cleansing No -Bioengineered Tissue No -Bleeding Controlled with Pressure -Treatment Response Procedure Tolerated Well -Offloading Yes -Type of Offloading Camwalker -Debridement - Subq, 1st 20sq cm No 6. L medial ankle -Time 11:48 -Correct Patient Yes -Correct Side, Site, Position Yes -Correct Procedure Yes -Procedure Performed Yes -Type of Procedure Debridement -Clinical Debridement Subcutaneous -Tissue Removed Subcutaneous -Post Debridement (cm) - Length 0.8 -Post Debridement (cm) - Width 0.5 -Post Debridement (cm) - Depth 0.4 -Total Square (Post) (cm) 0.40 -Area of Debridement (cm) - Length 0.8 -Area of Debridement (cm) - Width 0.5 -Total Square (Area) (cm) 0.40 -Tunneling Yes -Tunneling Position (O'clock) 12 -Tunneling Distance (cm) 2.2 -Undermining/Tunneling No -Circular Undermining No -Wound/Ulcer Outcome Not Healed -Ulcer Cleansing Rinsed/ Irrigated with Saline -Foul Odor after Cleansing No -Bioengineered Tissue No -Bleeding Controlled with Pressure -Treatment Response Procedure Tolerated Well -Offloading Yes -Type of Offloading Camwalker -Debridement - Subq, 1st 20sq cm Yes Pain Scale: 0-10 Numeric Is Patient Pain Free? Yes - Nurse 3 - General Ulcer D/C NN Start: 10/07/23 08:27 Freq: Status: Active Protocol: Activity Type Activity Date Activity User E-sign Co-sign Detail Recorded Client Recorded Date Recorded By Document 10/25/23 12:20 RB Desktop 10/25/23 12:21 RB 10/25/23 12:20 Wound Care Center Nurse 3 8-left lateral inferior foot -Ulcer Cleansing Rinsed/ Irrigated with Saline -Primary Dressing Applied C Hydrogel ($) -Primary Dressing Covered/Secured with Dry Gauze,Dry Gauze & Roll Gauze,Secured with Tape 7. L lateral ankle superior -Other Dressing hydrogel -Primary Dressing Covered/Secured with Dry Gauze & Roll Gauze, Secured with Tape 6. L medial ankle -Other Dressing hydrogel -Primary Dressing Covered/Secured with Dry Gauze,Dry Gauze & Roll Gauze,Secured with Tape Treatment Response Procedure Tolerated Well Pain Scale: 0-10 Numeric Is Patient Pain Free? Yes - Visit Discharge Discharge Condition Stable Ambulatory Status Wheelchair Transportation Private Auto Medication Reconcilliation completed & No provided to patient/care provider Clinical Summary of Care Provided Yes Notes: will apply martha wrap after HBO treatment Assessment/Plan Assessment/Plan (1) Osteomyelitis of ankle or foot, left, acute: CODE(S): M86.172 - Other acute osteomyelitis, left ankle and foot (2) Osteomyelitis of ankle, left, acute: CODE(S): M86.172 - Other acute osteomyelitis, left ankle and foot (3) Abscess of bursa, left ankle and foot: CODE(S): M71.072 - Abscess of bursa, left ankle and foot (4) Cellulitis of left lower limb: CODE(S): L03.116 - Cellulitis of left lower limb (5) Charcot foot due to diabetes mellitus: CODE(S): E11.610 - 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 arthropathy (6) Non-pressure chronic ulcer of left 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: CODE(S): L97.322 - Non-pressure chronic ulcer of left 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 (7) Other acute postprocedural pain: CODE(S): G89.18 - Other acute postprocedural pain (8) Type 2 diabetes mellitus with diabetic polyneuropathy: CODE(S): E11.42 - Type 2 diabetes mellitus with diabetic polyneuropathy QUALIFIERS: Diabetes mellitus nursing home insulin use: without nursing home use Qualified Code(s): E11.42 - Type 2 diabetes mellitus with diabetic polyneuropathy (9) Non-pressure chronic ulcer of other part of left foot with necrosis of muscle: CODE(S): L97.523 - Non-pressure chronic ulcer of other part of left foot with necrosis of muscle (10) Gas gangrene of foot: CODE(S): A48.0 - Gas gangrene (11) Diabetic infection of left foot: CODE(S): E11.628 - Type 2 diabetes mellitus with other skin complications;L08.9 - Local infection of the skin and subcutaneous tissue, unspecified (12) Non-pressure chronic ulcer of other part of left foot with necrosis of bone: CODE(S): L97.524 - Non-pressure chronic ulcer of other part of left foot with necrosis of bone (13) Cellulitis: CODE(S): L03.90 - Cellulitis, unspecified QUALIFIERS: Site of cellulitis: extremity Site of cellulitis of extremity: lower extremity Laterality: left Qualified Code(s): L03.116 - Cellulitis of left lower limb (14) Hypertension: CODE(S): I10 - Essential (primary) hypertension QUALIFIERS: Hypertension type: primary hypertension Qualified Code(s): I10 - Essential (primary) hypertension PLAN: Plan The patient appears to be tolerating hyperbaric oxygen therapy well, which will be continued as per their medical treatment plan. 10/25/23 1537 <Electronically signed by Saba Park NP PHYSICAL GEOGRAPHER-C> Cosigner Signature (if applicable): CC: ~ Signed [facility] Work Phone: [phone] 118-307703-19-2024 Progress note Author Saba Park [facility] October 25, 2023 12:57pm Note Date/Time October 24, 2023 1:1 6pm [facility] [address] [place] [id number] Progress Note - Wound Care HBO 10/24/23 1315 MR#: [id number] Acct: [id number] Name: SNEHA WEI Jr. Rep #:[id number] : 1980 43 From: Saba sanabria NP PHYSICAL GEOGRAPHER-C PCP: Dr. Liliane Epps, DO Status:REG RCR Location: WC ADDENDUM by EDDIE Park on 10/25/23 at 1257 Addendum For clarification purposes. This was actually the 22nd hyperbaric oxygen treatment of a prescribed 30 treatments. 10/25/23 1257<Electronically signed by Saba MORGAN> Cosigner Signature (if applicable): cc: ~* Signed History of Present Illness Date of Service: 10/24/23 Chief Complaint: Diabetic left foot infection with gas gangrene and osteomyelitis; Li grade 3 diabetic foot infection. History of Wound: 43-year-old male status post left Charcot reconstruction. Denies constitutional symptoms. Wound is improving today. Subjective Subjective The patient underwent his 21st hyperbaric oxygen therapy session today. The patient is scheduled for a total of 30 such sessions. Tolerance of hyperbaric oxygen therapy: Hyperbaric oxygen therapy was provided as per the facility's protocol. Hyperbaric oxygen therapy was undertaken at 2 krzysztof and 100% oxygen for 90 minutes without air breaks. The patient tolerated hyperbaric oxygen therapy well, without complaints or complications. Upon emergence from the hyperbaric chamber, the patient's vital signs remained stable. Blood sugar levels were monitored both before and after hyperbaric oxygen therapy, and found to be satisfactory. Objective Data Objective Data Vital Signs: Vital Signs Temp Pulse Resp BP O2 Del Method O2 Flow Rate 96.5 F L 90 18 131/78 H Room Air 99 10/21/23 11:32 10/21/23 11:32 10/21/23 11:32 10/21/23 11:32 10/18/23 11:08 10/07/23 00:29 Oxygen Flow Rate (L/min) 99 Oxygen Delivery Method Room Air Weight: 250 lb Body Mass Index (BMI) 33.9 Lab / Micro Data Labs: Laboratory Results - last 24 hr 10/24/23 12:48: POC Glucose 154 H Exam Physical Exam Const alert, oriented x3 and no apparent distress HEENT normocephalic Tympanic Membrane: TM's normal bilaterally Resp normal respiratory effort Effort and Inspection: able to speak in complete sentences Auscultation: clear to auscultation bilaterally Cardio regular rate and regular rhythm Psych mental status grossly normal, thought process normal, cooperative, affect normaland speech normal Assessment/Plan Assessment/Plan (1) Osteomyelitis of ankle or foot, left, acute: CODE(S): M86.172 - Other acute osteomyelitis, left ankle and foot (2) Osteomyelitis of ankle, left, acute: CODE(S): M86.172 - Other acute osteomyelitis, left ankle and foot (3) Abscess of bursa, left ankle and foot: CODE(S): M71.072 - Abscess of bursa, left ankle and foot (4) Cellulitis of left lower limb: CODE(S): L03.116 - Cellulitis of left lower limb (5) Charcot foot due to diabetes mellitus: CODE(S): E11.610 - 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 arthropathy (6) Non-pressure chronic ulcer of left 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: CODE(S): L97.322 - Non-pressure chronic ulcer of left 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 (7) Other acute postprocedural pain: CODE(S): G89.18 - Other acute postprocedural pain (8) Type 2 diabetes mellitus with diabetic polyneuropathy: CODE(S): E11.42 - Type 2 diabetes mellitus with diabetic polyneuropathy QUALIFIERS: Diabetes mellitus nursing home insulin use: without nursing home use Qualified Code(s): E11.42 - Type 2 diabetes mellitus with diabetic polyneuropathy (9) Non-pressure chronic ulcer of other part of left foot with necrosis of muscle: CODE(S): L97.523 - Non-pressure chronic ulcer of other part of left foot with necrosis of muscle (10) Gas gangrene of foot: CODE(S): A48.0 - Gas gangrene (11) Diabetic infection of left foot: CODE(S): E11.628 - Type 2 diabetes mellitus with other skin complications;L08.9 - Local infection of the skin and subcutaneous tissue, unspecified (12) Non-pressure chronic ulcer of other part of left foot with necrosis of bone: CODE(S): L97.524 - Non-pressure chronic ulcer of other part of left foot with necrosis of bone (13) Cellulitis: CODE(S): L03.90 - Cellulitis, unspecified QUALIFIERS: Site of cellulitis: extremity Site of cellulitis of extremity: lower extremity Laterality: left Qualified Code(s): L03.116 - Cellulitis of left lower limb (14) Hypertension: CODE(S): I10 - Essential (primary) hypertension QUALIFIERS: Hypertension type: primary hypertension Qualified Code(s): I10 - Essential (primary) hypertension PLAN: Plan The patient appears to be tolerating hyperbaric oxygen therapy well, which will be continued as per their medical treatment plan. 10/24/23 1542 <Electronically signed by Saba Park NP PHYSICAL GEOGRAPHER-C> Cosigner Signature (if applicable): CC: ~ Signed [facility] Work Phone: [phone]) 575-513703-19-2024 Progress note Author Jordi Perkins [facility] October 25, 2023 11:54am Note Date/Time October 25, 2023 11: 54am [facility] [address] [place] [id number] Progress Note - Wound Care 10/25/23 1152 MR#: [id number] Acct: [id number] Name: ERIBERTOSNEHACecil FRAGOSO Jr. Rep #:[id number] : 1980 43 From: Jordi Perkins DPM PCP: Dr. Liliane Epps, DO Status:[facility] Location: History of Present Illness Date of Service: 10/25/23 Chief Complaint: Diabetic left foot infection with gas gangrene and osteomyelitis; Li grade 3 diabetic foot infection. History of Wound: 43-year-old male status post left Charcot reconstruction. Denies constitutional symptoms. Wound is improving today. Progress of Wound: The patient underwent his 20th hyperbaric oxygen therapy session today. The patient is scheduled for a total of 30 such sessions. Objective Data Objective Data Vital Signs: Vital Signs Temp Pulse Resp BP O2 Del Method O2 Flow Rate 97.6 F L 97 18 129/76 H Room Air 99 10/25/23 11:23 10/25/23 11:23 10/25/23 11:23 10/25/23 11:23 10/25/23 11:23 10/07/23 00:29 Oxygen Flow Rate (L/min) 99 Oxygen Delivery Method Room Air Weight: 113.398 kg Body Mass Index (BMI) 33.9 Lab / Micro Data Labs: Laboratory Results - last 24 hr 10/24/23 12:48: POC Glucose 154 H 10/24/23 14:56: POC Glucose 128 H Physical Exam Narrative Neurovascular status unchanged Full-thickness wounds to medial ankle, 3 cc purulence drained from the site today. Lateral ankle wound down to the level of bone noted with intact vessel loop closure allowing for partial wound closure, additional 3 cc purulence drained from the site. Pre and postdebridement measurements documented in notesnursing notes. This was debrided down to level of muscle today. No residual abscess noted. New onset redness swelling to plantar midfoot with possible fluctuance and increase in warmth. Concern for deep abscess. No signs of DVT. Const alert and oriented x3 Debridement Note Debridement Note Post-Debridement Measurements and Additional Note: Post-Debridement Measurements/Treatment - Nurse 1 - General Ulcer Assessment Start: 10/07/23 08:27 Freq: Status: Active Protocol: [email or web address] Activity Type Activity Date Activity User E-sign Co-sign Detail Recorded Client Recorded Date Recorded By Document 10/11/23 12:05 RB [id number] 10/11/23 12:09 RB Document 10/18/23 11:08 KW Desktop 10/18/23 11:25 KW Document 10/25/23 11:23 KW Desktop 10/25/23 11:40 KW 10/11/23 10/18/23 10/25/23 12:05 11:08 11:23 - Today's Visit Information Type of service Follow-up Visit Follow-up Visit Follow-up Visit (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 (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 (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 ) ) ) Arrival Mode Wheelchair Wheelchair Wheelchair Transfer Assistance Manual Accompanied by step father STEP FATHER Patient Identification Verified (Name & Yes Yes Yes ) Patient Requires Transmission-Based No Precautions Finger Stick Blood Sugar(mg/dl) (if 123 indicated): Blood Sugar Stated by Patient Height and Weight Body Mass Index (BMI) 33.9 33.9 33.9 BMI Classification Obese Obese Obese Vital Signs Temperature (97.8 F-99.1 F) 98 F 96.6 F L 97.6 F L Temperature Source Temporal Temporal Temporal Pulse Rate (60-100) 94 85 97 Pulse Location Monitor Monitor Monitor Respiratory Rate (12-18) 18 18 18 Respiratory rate source Observation Observation Observation Oxygen Delivery Method Room Air Room Air Blood Pressure (90/60-120/80) 121/73 H 129/80 H 129/76 H Blood Pressure Mean (mm Hg) 89 96 93 Source Monitor Monitor Monitor Position Sitting Semi-Fowlers Semi-Fowlers Blood Pressure Location Left Arm Left Arm Left Arm History Since Last Visit- (Skip if this is Patient's initial visit) Have you changed medications since your No No No last visit? Any new allergies or adverse reactions No No No Had a fall/change in ADL's that may No No No increase risk of falls Signs or symptoms of abuse and/or No No No neglect since last visit Have you been in the hospital since your No No No last visit? Has dressing in place as prescribed Yes Yes Yes Has compression in place as prescribed Yes Yes Yes Has offloadiing in place as prescribed Yes Yes Yes Experienced any changes in pain level or No No No management Left Footwear No Footwear Slipper Right Footwear Regular Shoe Regular Shoe Pain Scale: 0-10 Numeric Is Patient Pain Free? Yes Yes Yes WC - Nurse 1 - General Ulcer Measurement Start: 10/07/23 08:27 Freq: Status: Active Protocol: Activity Type Activity Date Activity User E-sign Co-sign Detail Recorded Client Recorded Date Recorded By Document 10/11/23 12:05 RB [id number] 10/11/23 12:09 RB Document 10/18/23 11:08 KW Desktop 10/18/23 11:25 KW Document 10/25/23 11:23 KW Desktop 10/25/23 11:40 KW 10/11/23 10/18/23 10/25/23 12:05 11:08 11:23 Wound Center Nurse 1 8-left lateral inferior foot -Current Size (cm) - Length 0.1 -Current Size (cm) - Width 0.1 -Current Size (cm) - Depth 0.1 -Total Square Cm 0.01 -Exudate Amt None Present -Texture ([place]-wound Skin Appearance) Assessed -Moisture ([place]-wound Skin Appearance) Assessed -Temperature ([place]-wound Skin No Abnormality Appearance) (Pt Warm) -Ulcer Cleansing Soap and Water -Foul Odor after Cleansing No -Anesthetic Used 4% Lidocaine Solution 7. L lateral ankle superior -Combined with other wound No -Current Size (cm) - Length 1 0.4 -Current Size (cm) - Width 0.5 0.2 -Current Size (cm) - Depth 1 0.2 -Total Square Cm 0.5 0.08 -Tunneling No -Undermining/Tunneling No -Circular Undermining No -Exudate Amt Large Small None Present -Exudate Type Serosanguineous Serosanguineous -Wound Margin Thickened & Thickened & Distinct, Rolled Under Rolled Under Outline Attached -Granulation Amt Medium (34-66%) Large (67-100%) Large (67-100%) -Granulation Quality [employer] Red -Slough/Fibrin Yes -Necrosis Amt Medium (34-66%) -Necrotic Tissue Type Adherent Slough -Structure Exposed N/A -Texture ([place]-wound Skin Appearance) Assessed, Assessed, Assessed Scarring Localized Edema -Moisture ([place]-wound Skin Appearance) Assessed Assessed Assessed -Color ([place]-wound Skin Appearance) Assessed Assessed Assessed -Temperature ([place]-wound Skin No Abnormality No Abnormality No Abnormality Appearance) (Pt Warm) (Pt Warm) (Pt Warm) -Tenderness on Palpation ([place]-wound No No Skin Appearance) -Ulcer Cleansing Wound Cleanser Soap and Water Soap and Water -Foul Odor after Cleansing No No No -Anesthetic Used 4% Lidocaine 4% Lidocaine 4% Lidocaine Solution Solution Solution 6. L medial ankle -Combined with other wound No -Current Size (cm) - Length 1 0.5 0.8 -Current Size (cm) - Width 0.5 0.2 0.5 -Current Size (cm) - Depth 1 1 0.4 -Total Square Cm 0.5 0.10 0.40 -Tunneling No -Undermining/Tunneling No -Circular Undermining No -Exudate Amt Large Small Medium -Exudate Type Serosanguineous Serosanguineous Serosanguineous -Wound Margin Thickened & Thickened & Distinct, Rolled Under Rolled Under Outline Attached -Granulation Amt Medium (34-66%) Large (67-100%) Large (67-100%) -Granulation Quality [employer] Red -Slough/Fibrin Yes -Necrosis Amt Medium (34-66%) -Necrotic Tissue Type Adherent Slough -Structure Exposed N/A -Texture ([place]-wound Skin Appearance) Assessed, Assessed Assessed Scarring -Moisture ([place]-wound Skin Appearance) Assessed Assessed Assessed -Color ([place]-wound Skin Appearance) Assessed Assessed Assessed -Temperature ([place]-wound Skin No Abnormality No Abnormality No Abnormality Appearance) (Pt Warm) (Pt Warm) (Pt Warm) -Tenderness on Palpation ([place]-wound No Skin Appearance) -Ulcer Cleansing Wound Cleanser Soap and Water Soap and Water -Foul Odor after Cleansing No No -Anesthetic Used 5% Lidocaine 4% Lidocaine 4% Lidocaine Gel Solution Solution Left Calf (cm) 35 Left Ankle (cm) 24.5 WC - Nurse 2 - General Ulcer CM Notes Start: 10/07/23 08:27 Freq: Status: Active Protocol: Activity Type Activity Date Activity User E-sign Co-sign Detail Recorded Client Recorded Date Recorded By Document 10/11/23 11:34 [employer] Laptop 10/11/23 11:52 [employer] Document 10/18/23 11:41 [employer]aptop 10/18/23 11:45 [employer] Document 10/25/23 11:46 [employer] Laptop 10/25/23 11:52 [employer] 10/11/23 10/18/23 10/25/23 11:34 11:41 11:46 Wound Center Nurse 2 8-left lateral inferior foot -Time 11:42 11:47 -Correct Patient Yes Yes -Correct Side, Site, Position Yes Yes -Correct Procedure Yes Yes -Procedure Performed Yes Yes -Type of Procedure Debridement Debridement -Clinical Debridement Subcutaneous Subcutaneous -Tissue Removed Subcutaneous Subcutaneous -Post Debridement (cm) - Length 0.3 0.5 -Post Debridement (cm) - Width 0.8 0.2 -Post Debridement (cm) - Depth 0.5 0.2 -Total Square (Post) (cm) 0.24 0.10 -Area of Debridement (cm) - Length 0.3 0.5 -Area of Debridement (cm) - Width 0.8 0.2 -Total Square (Area) (cm) 0.24 0.10 -Tunneling No No -Undermining/Tunneling No No -Circular Undermining No No -Wound/Ulcer Outcome Not Healed Not Healed -Ulcer Cleansing Rinsed/ Rinsed/ Irrigated with Irrigated with Saline Saline -Foul Odor after Cleansing No No -Bioengineered Tissue No No -Bleeding Controlled with Pressure Pressure -Treatment Response Procedure Procedure Tolerated Well Tolerated Well -Offloading No No -Debridement - Subq, 1st 20sq cm No No 7. L lateral ankle superior -Time 11:50 11:41 11:47 -Correct Patient Yes Yes Yes -Correct Side, Site, Position Yes Yes Yes -Correct Procedure Yes Yes Yes -Procedure Performed Yes Yes Yes -Type of Procedure Debridement Debridement Debridement -Clinical Debridement Muscle / Fascia Subcutaneous Subcutaneous -Tissue Removed Muscle Subcutaneous Subcutaneous -Post Debridement (cm) - Length 6.0 0.9 0.1 -Post Debridement (cm) - Width 1.0 0.2 0.1 -Post Debridement (cm) - Depth 1.2 0.4 0.1 -Total Square (Post) (cm) 6.00 0.18 0.01 -Area of Debridement (cm) - Length 6.0 0.9 0.1 -Area of Debridement (cm) - Width 1.0 0.2 0.1 -Total Square (Area) (cm) 6.00 0.18 0.01 -Tunneling No No No -Undermining/Tunneling No No No -Circular Undermining No No No -Wound/Ulcer Outcome Not Healed Not Healed Not Healed -Ulcer Cleansing Rinsed/ Rinsed/ Rinsed/ Irrigated with Irrigated with Irrigated with Saline Saline Saline -Foul Odor after Cleansing No No No -Bioengineered Tissue No No No -Bleeding Controlled with Pressure Pressure Pressure -Treatment Response Procedure Procedure Procedure Tolerated Well Tolerated Well Tolerated Well -Offloading No No Yes -Type of Offloading Camwalker -Assistive Device(s) Wheelchair -Debridement - Subq, 1st 20sq cm Yes No -Debridement - Muscle / Fascia, 1st No 20sq cm 6. L medial ankle -Time 11:51 11:41 11:48 -Correct Patient Yes Yes Yes -Correct Side, Site, Position Yes Yes Yes -Correct Procedure Yes Yes Yes -Procedure Performed Yes Yes Yes -Type of Procedure Debridement Debridement Debridement -Clinical Debridement Muscle / Fascia Subcutaneous Subcutaneous -Tissue Removed Muscle Subcutaneous Subcutaneous -Post Debridement (cm) - Length 1.1 0.9 0.8 -Post Debridement (cm) - Width 0.4 0.5 0.5 -Post Debridement (cm) - Depth 1 1.5 0.4 -Total Square (Post) (cm) 0.44 0.45 0.40 -Area of Debridement (cm) - Length 1.1 0.9 0.8 -Area of Debridement (cm) - Width 0.4 0.5 0.5 -Total Square (Area) (cm) 0.44 0.45 0.40 -Tunneling No No Yes -Tunneling Position (O'clock) 12 -Tunneling Distance (cm) 2.2 -Undermining/Tunneling Yes No No -Undermining/Tunneling Starts (O'clock 2 ) -Undermining/Tunneling Ends (O'clock) 5 -Maximum Distance (cm) 2.0 -Circular Undermining No No No -Wound/Ulcer Outcome Not Healed Not Healed Not Healed -Ulcer Cleansing Rinsed/ Rinsed/ Rinsed/ Irrigated with Irrigated with Irrigated with Saline Saline Saline -Foul Odor after Cleansing No No No -Bioengineered Tissue No No No -Bleeding Controlled with Pressure Pressure Pressure -Treatment Response Procedure Procedure Procedure Tolerated Well Tolerated Well Tolerated Well -Offloading No Yes Yes -Type of Offloading Surgical Shoe Camwalker -Assistive Device(s) Wheelchair -Debridement - Subq, 1st 20sq cm No Yes -Debridement - Muscle / Fascia, 1st Yes 20sq cm Pain Scale: 0-10 Numeric Is Patient Pain Free? Yes Yes Yes WC - Nurse 3 - General Ulcer D/C NN Start: 10/07/23 08:27 Freq: Status: Active Protocol: Activity Type Activity Date Activity User E-sign Co-sign Detail Recorded Client Recorded Date Recorded By Document 10/07/23 10:04 [id number] 10/07/23 10:07 Document 10/11/23 12:05 RB [id number] 10/11/23 12:09 RB Document 10/18/23 15:40 RB Desktop 10/18/23 15:42 RB 10/07/23 10/11/23 10/18/23 10:04 12:05 15:40 Wound Care Center Nurse 3 8-left lateral inferior foot -Other Dressing dakin moistened gauze -Primary Dressing Covered/Secured with Dry Gauze,Dry Gauze & Roll Gauze,Secured with Tape 7. L lateral ankle superior -Ulcer Cleansing Rinsed/ Irrigated with Saline -Other Dressing DAKINS dakins MOISTENED GAUZE moistened gauze -Primary Dressing Covered/Secured with Dry Gauze & Dry Gauze,Dry Roll Gauze, Gauze & Roll Secured with Gauze,Secured Tape with Tape 6. L medial ankle -Other Dressing [id number] dakins MOISTENED GAUZE moistened gauze -Primary Dressing Covered/Secured with Dry Gauze & Dry Gauze,Dry Roll Gauze, Gauze & Roll Secured with Gauze,Secured Tape with Tape Left -Tubular Bandage Double Layer -Size of Tubigrip Used Size E -Size E ($) 2 Treatment Response Procedure Procedure Tolerated Well Tolerated Well Vital Signs Temperature (97.8 F-99.1 F) 98 F Temperature Source Temporal Pulse Rate (60-100) 94 Pulse Location Monitor Respiratory Rate (12-18) 18 Respiratory rate source Observation Blood Pressure (90/60-120/80) 121/73 H Blood Pressure Mean (mm Hg) 89 Source Monitor Position Sitting Blood Pressure Location Left Arm Pain Scale: 0-10 Numeric Is Patient Pain Free? Yes Yes Yes WC - Visit Discharge Discharge Condition Stable Stable Stable Ambulatory Status Wheelchair Wheelchair Wheelchair Transportation Private Auto Private Auto Private Auto Accompanied by PARENTS Medication Reconcilliation completed & No No provided to patient/care provider Clinical Summary of Care Provided Yes Yes Notes: Patient tolerated HBO treatment without difficulty. Heading to the hospital to get his xray ordered by Dr Perkins. Assessment/Plan Assessment/Plan (1) Osteomyelitis of ankle, left, acute: CODE(S): M86.172 - Other acute osteomyelitis, left ankle and foot PLAN: Exam performed Patient on IV meropenem via PICC line per infectious disease for enterococcal and pseudomonal infection left lower extremity with bone involvement will transition to p.o. antibiotics per infectious disease. Cultures from new onset abscess last week negative for any bacterial growth. wound significantly improved Today left lower extremity wound to lateral ankle was debrided down to and including level of muscle excisionally using a 5 mm dermal curette without incident. No anesthesia due to neuropathy. Hemostasis obtained with light compression. Patient tolerated procedure well. Pre and postdebridement measurements documented nursing notes. Change dressing daily hydrogel with DSD and Tubigrip. Patient follows up weekly Patient nonweightbearing left lower extremity Patient receiving HBO therapy Blood sugar well-controlled Concern for new onset deep abscess with redness swelling to left forefoot. MRI ordered, this is scheduled for 11/01/2023. Follow-up 1 week (2) Charcot foot due to diabetes mellitus: CODE(S): E11.610 - 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 arthropathy (3) Abscess of bursa, left ankle and foot: CODE(S): M71.072 - Abscess of bursa, left ankle and foot (4) Cellulitis of left lower limb: CODE(S): L03.116 - Cellulitis of left lower limb (5) Non-pressure chronic ulcer of left 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: CODE(S): L97.322 - Non-pressure chronic ulcer of left 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 (6) Type 2 diabetes mellitus with diabetic polyneuropathy: CODE(S): E11.42 - Type 2 diabetes mellitus with diabetic polyneuropathy QUALIFIERS: Diabetes mellitus nursing home insulin use: without nursing home use Qualified Code(s): E11.42 - Type 2 diabetes mellitus with diabetic polyneuropathy 10/25/23 1154 <Electronically signed by Jordi Perkins DPM> Cosigner Signature (if applicable): CC: ~ Signed [facility] Work Phone: [phone]) [phone] Progress note Author Mercedes Mejia [facility] October 21, 2023 2:54pm Note Date/Time October 21, 2023 2:5 1pm [facility] [address] [place] [id number] Progress Note - Wound Care HBO 10/21/23 1450 MR#: [id number] Acct: [id number] Name: SNEHA WEI JrGiovanny Rep #:[id number] : 1980 43 From: Mercedes Mejia DO PCP: Dr. Liliane Epps DO Status:REG RCR Location: ADDENDUM by Dr. Mercedes Mejia DO on 10/21/23 at 1454 Addendum This was actually the treatments of HBO for this patient. 10/21/23 1454<Electronically signed by Mercedes Mejia DO> Cosigner Signature (if applicable): cc: ~* Signed History of Present Illness Date of Service: 10/21/23 Chief Complaint: Diabetic left foot infection with gas gangrene and osteomyelitis; Li grade 3 diabetic foot infection. History of Wound: 43-year-old male status post left Charcot reconstruction. Denies constitutional symptoms. Wound is improving today. Progress of Wound: The patient underwent his 20th hyperbaric oxygen therapy session today. The patient is scheduled for a total of 30 such sessions. Objective Data Objective Data Vital Signs: Vital Signs Temp Pulse Resp BP O2 Del Method O2 Flow Rate 96.5 F L 90 18 131/78 H Room Air 99 10/21/23 11:32 10/21/23 11:32 10/21/23 11:32 10/21/23 11:32 10/18/23 11:08 10/07/23 00:29 Oxygen Flow Rate (L/min) 99 Oxygen Delivery Method Room Air Weight: 113.398 kg Body Mass Index (BMI) 33.9 Lab / Micro Data Labs: Laboratory Results - last 24 hr 10/20/23 14:41: POC Glucose 172 H 10/21/23 11:04: POC Glucose 160 H 10/21/23 13:26: POC Glucose 142 H Exam Physical Exam Const alert, oriented x3 and no apparent distress Psych mental status grossly normal, thought process normal, cooperative, affect normaland speech normal Nursing Assessment and Debridement Post-Debridement Measurements and Additional Note: Post-Debridement Measurements/Treatment - Nurse 3 - General Ulcer D/C NN Start: 10/07/23 08:27 Freq: Status: Active Protocol: Activity Type Activity Date Activity User E-sign Co-sign Detail Recorded Client Recorded Date Recorded By Document 10/18/23 15:40 RB Desktop 10/18/23 15:42 RB 10/18/23 15:40 Wound Care Center Nurse 3 8-left lateral inferior foot -Other Dressing dakin moistened gauze -Primary Dressing Covered/Secured with Dry Gauze,Dry Gauze & Roll Gauze,Secured with Tape 7. L lateral ankle superior -Ulcer Cleansing Rinsed/ Irrigated with Saline -Other Dressing dakins moistened gauze -Primary Dressing Covered/Secured with Dry Gauze,Dry Gauze & Roll Gauze,Secured with Tape 6. L medial ankle -Other Dressing dakins moistened gauze -Primary Dressing Covered/Secured with Dry Gauze,Dry Gauze & Roll Gauze,Secured with Tape Treatment Response Procedure Tolerated Well Pain Scale: 0-10 Numeric Is Patient Pain Free? Yes WC - Visit Discharge Discharge Condition Stable Ambulatory Status Wheelchair Transportation Private Auto Medication Reconcilliation completed & No provided to patient/care provider Clinical Summary of Care Provided Yes Assessment/Plan Assessment/Plan (1) Osteomyelitis of ankle or foot, left, acute: CODE(S): M86.172 - Other acute osteomyelitis, left ankle and foot (2) Osteomyelitis of ankle, left, acute: CODE(S): M86.172 - Other acute osteomyelitis, left ankle and foot (3) Abscess of bursa, left ankle and foot: CODE(S): M71.072 - Abscess of bursa, left ankle and foot (4) Cellulitis of left lower limb: CODE(S): L03.116 - Cellulitis of left lower limb (5) Charcot foot due to diabetes mellitus: CODE(S): E11.610 - 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 arthropathy (6) Non-pressure chronic ulcer of left 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: CODE(S): L97.322 - Non-pressure chronic ulcer of left 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 (7) Other acute postprocedural pain: CODE(S): G89.18 - Other acute postprocedural pain (8) Type 2 diabetes mellitus with diabetic polyneuropathy: CODE(S): E11.42 - Type 2 diabetes mellitus with diabetic polyneuropathy QUALIFIERS: Diabetes mellitus nursing home insulin use: without salvage determiner use Qualified Code(s): E11.42 - Type 2 diabetes mellitus with diabetic polyneuropathy (9) Non-pressure chronic ulcer of other part of left foot with necrosis of muscle: CODE(S): L97.523 - Non-pressure chronic ulcer of other part of left foot with necrosis of muscle (10) Gas gangrene of foot: CODE(S): A48.0 - Gas gangrene (11) Diabetic infection of left foot: CODE(S): E11.628 - Type 2 diabetes mellitus with other skin complications;L08.9 - Local infection of the skin and subcutaneous tissue, unspecified (12) Non-pressure chronic ulcer of other part of left foot with necrosis of bone: CODE(S): L97.524 - Non-pressure chronic ulcer of other part of left foot with necrosis of bone (13) Cellulitis: CODE(S): L03.90 - Cellulitis, unspecified QUALIFIERS: Site of cellulitis: extremity Site of cellulitis of extremity: lower extremity Laterality: left Qualified Code(s): L03.116 - Cellulitis of left lower limb (14) Hypertension: CODE(S): I10 - Essential (primary) hypertension QUALIFIERS: Hypertension type: primary hypertension Qualified Code(s): I10 - Essential (primary) hypertension PLAN: Plan The patient appears to be tolerating hyperbaric oxygen therapy well, which will be continued as per their medical treatment plan. 10/21/23 1451 <Electronically signed by Mercedes Mejia DO> Cosigner Signature (if applicable): CC: ~ Signed [facility] Work Phone: [phone] 129-392403-14-2024 Progress note Author Saba Park [facility] October 20, 2023 3:16pm Note Date/Time October 20, 2023 12: 50pm [facility] [address] [place] [address] Progress Note - Wound Care HBO 10/20/23 1249 MR#: [id number] Acct: [id number] Name: ERIBERTOSNEHA FOUZIAMer Clay Rep #:[id number] : 1980 43 From: Saba sanabria NP PHYSICAL GEOGRAPHER-C PCP: Dr. Liliane Epps DO Status:REG RCR Location: History of Present Illness Date of Service: 10/20/23 Chief Complaint: Diabetic left foot infection with gas gangrene and osteomyelitis; Li grade 3 diabetic foot infection. History of Wound: 43-year-old male status post left Charcot reconstruction. Denies constitutional symptoms. Wound is improving today. Subjective Subjective The patient underwent his 20th hyperbaric oxygen therapy session today. The patient is scheduled for a total of 30 such sessions. Tolerance of hyperbaric oxygen therapy: Hyperbaric oxygen therapy was provided as per the facility's protocol. Hyperbaric oxygen therapy was undertaken at 2 krzysztof and 100% oxygen for 90 minutes without air breaks. The patient tolerated hyperbaric oxygen therapy well, without complaints or complications. Upon emergence from the hyperbaric chamber, the patient's vital signs remained stable. Blood sugar levels were monitored both before and after hyperbaric oxygen therapy, and found to be satisfactory. Objective Data Objective Data Vital Signs: Vital Signs Temp Pulse Resp BP O2 Del Method O2 Flow Rate 97.1 F L 92 16 128/81 H Room Air 99 10/19/23 13:28 10/19/23 13:28 10/19/23 13:28 10/19/23 13:28 10/18/23 11:08 10/07/23 00:29 Oxygen Flow Rate (L/min) 99 Oxygen Delivery Method Room Air Weight: 250 lb Body Mass Index (BMI) 33.9 Lab / Micro Data Labs: Laboratory Results - last 24 hr 10/19/23 12:38: POC Glucose 166 H 10/19/23 14:50: POC Glucose 170 H Exam Physical Exam Const alert, oriented x3 and no apparent distress HEENT normocephalic Tympanic Membrane: TM's normal bilaterally Resp normal respiratory effort Effort and Inspection: able to speak in complete sentences Auscultation: clear to auscultation bilaterally Cardio regular rate and regular rhythm Psych mental status grossly normal, thought process normal, cooperative, affect normaland speech normal Nursing Assessment and Debridement Post-Debridement Measurements and Additional Note: Post-Debridement Measurements/Treatment WC - Nurse 1 - General Ulcer Assessment Start: 10/07/23 08:27 Freq: Status: Active Protocol: GWEN Activity Type Activity Date Activity User E-sign Co-sign Detail Recorded Client Recorded Date Recorded By Document 10/18/23 11:08 KW Desktop 10/18/23 11:25 KW 10/18/23 11:08 WC - Today's Visit Information Type of service Follow-up Visit (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 ) Arrival Mode Wheelchair Accompanied by step father Patient Identification Verified (Name & Yes ) Finger Stick Blood Sugar(mg/dl) (if 123 indicated): Blood Sugar Stated by Patient Height and Weight Body Mass Index (BMI) 33.9 BMI Classification Obese Vital Signs Temperature (97.8 F-99.1 F) 96.6 F L Temperature Source Temporal Pulse Rate (60-100) 85 Pulse Location Monitor Respiratory Rate (12-18) 18 Respiratory rate source Observation Oxygen Delivery Method Room Air Blood Pressure (90/60-120/80) 129/80 H Blood Pressure Mean (mm Hg) 96 Source Monitor Position Semi-Fowlers Blood Pressure Location Left Arm History Since Last Visit- (Skip if this is Patient's initial visit) Have you changed medications since your No last visit? Any new allergies or adverse reactions No Had a fall/change in ADL's that may No increase risk of falls Signs or symptoms of abuse and/or No neglect since last visit Have you been in the hospital since your No last visit? Has dressing in place as prescribed Yes Has compression in place as prescribed Yes Has offloadiing in place as prescribed Yes Experienced any changes in pain level or No management Left Footwear No Footwear Right Footwear Regular Shoe Pain Scale: 0-10 Numeric Is Patient Pain Free? Yes WC - Nurse 1 - General Ulcer Measurement Start: 10/07/23 08:27 Freq: Status: Active Protocol: Activity Type Activity Date Activity User E-sign Co-sign Detail Recorded Client Recorded Date Recorded By Document 10/18/23 11:08 KW Desktop 10/18/23 11:25 KW 10/18/23 11:08 Wound Center Nurse 1 7. L lateral ankle superior -Exudate Amt Small -Exudate Type Serosanguineous -Wound Margin Thickened & Rolled Under -Granulation Amt Large (67-100%) -Granulation Quality [employer] -Texture ([place]-wound Skin Appearance) Assessed, Localized Edema -Moisture ([place]-wound Skin Appearance) Assessed -Color ([place]-wound Skin Appearance) Assessed -Temperature ([place]-wound Skin No Abnormality Appearance) (Pt Warm) -Tenderness on Palpation ([place]-wound No Skin Appearance) -Ulcer Cleansing Soap and Water -Foul Odor after Cleansing No -Anesthetic Used 4% Lidocaine Solution 6. L medial ankle -Current Size (cm) - Length 0.5 -Current Size (cm) - Width 0.2 -Current Size (cm) - Depth 1 -Total Square Cm 0.10 -Exudate Amt Small -Exudate Type Serosanguineous -Wound Margin Thickened & Rolled Under -Granulation Amt Large (67-100%) -Granulation Quality [employer] -Texture ([place]-wound Skin Appearance) Assessed -Moisture ([place]-wound Skin Appearance) Assessed -Color ([place]-wound Skin Appearance) Assessed -Temperature ([place]-wound Skin No Abnormality Appearance) (Pt Warm) -Ulcer Cleansing Soap and Water -Anesthetic Used 4% Lidocaine Solution Left Calf (cm) 35 Left Ankle (cm) 24.5 WC - Nurse 2 - General Ulcer CM Notes Start: 10/07/23 08:27 Freq: Status: Active Protocol: Activity Type Activity Date Activity User E-sign Co-sign Detail Recorded Client Recorded Date Recorded By Document 10/18/23 11:41 Laptop 10/18/23 11:45 10/18/23 11:41 Wound Center Nurse 2 8-left lateral inferior foot -Time 11:42 -Correct Patient Yes -Correct Side, Site, Position Yes -Correct Procedure Yes -Procedure Performed Yes -Type of Procedure Debridement -Clinical Debridement Subcutaneous -Tissue Removed Subcutaneous -Post Debridement (cm) - Length 0.3 -Post Debridement (cm) - Width 0.8 -Post Debridement (cm) - Depth 0.5 -Total Square (Post) (cm) 0.24 -Area of Debridement (cm) - Length 0.3 -Area of Debridement (cm) - Width 0.8 -Total Square (Area) (cm) 0.24 -Tunneling No -Undermining/Tunneling No -Circular Undermining No -Wound/Ulcer Outcome Not Healed -Ulcer Cleansing Rinsed/ Irrigated with Saline -Foul Odor after Cleansing No -Bioengineered Tissue No -Bleeding Controlled with Pressure -Treatment Response Procedure Tolerated Well -Offloading No -Debridement - Subq, 1st 20sq cm No 7. L lateral ankle superior -Time 11:41 -Correct Patient Yes -Correct Side, Site, Position Yes -Correct Procedure Yes -Procedure Performed Yes -Type of Procedure Debridement -Clinical Debridement Subcutaneous -Tissue Removed Subcutaneous -Post Debridement (cm) - Length 0.9 -Post Debridement (cm) - Width 0.2 -Post Debridement (cm) - Depth 0.4 -Total Square (Post) (cm) 0.18 -Area of Debridement (cm) - Length 0.9 -Area of Debridement (cm) - Width 0.2 -Total Square (Area) (cm) 0.18 -Tunneling No -Undermining/Tunneling No -Circular Undermining No -Wound/Ulcer Outcome Not Healed -Ulcer Cleansing Rinsed/ Irrigated with Saline -Foul Odor after Cleansing No -Bioengineered Tissue No -Bleeding Controlled with Pressure -Treatment Response Procedure Tolerated Well -Offloading No -Assistive Device(s) Wheelchair -Debridement - Subq, 1st 20sq cm Yes 6. L medial ankle -Time 11:41 -Correct Patient Yes -Correct Side, Site, Position Yes -Correct Procedure Yes -Procedure Performed Yes -Type of Procedure Debridement -Clinical Debridement Subcutaneous -Tissue Removed Subcutaneous -Post Debridement (cm) - Length 0.9 -Post Debridement (cm) - Width 0.5 -Post Debridement (cm) - Depth 1.5 -Total Square (Post) (cm) 0.45 -Area of Debridement (cm) - Length 0.9 -Area of Debridement (cm) - Width 0.5 -Total Square (Area) (cm) 0.45 -Tunneling No -Undermining/Tunneling No -Circular Undermining No -Wound/Ulcer Outcome Not Healed -Ulcer Cleansing Rinsed/ Irrigated with Saline -Foul Odor after Cleansing No -Bioengineered Tissue No -Bleeding Controlled with Pressure -Treatment Response Procedure Tolerated Well -Offloading Yes -Type of Offloading Surgical Shoe -Assistive Device(s) Wheelchair -Debridement - Subq, 1st 20sq cm No Pain Scale: 0-10 Numeric Is Patient Pain Free? Yes - Nurse 3 - General Ulcer D/C NN Start: 10/07/23 08:27 Freq: Status: Active Protocol: Activity Type Activity Date Activity User E-sign Co-sign Detail Recorded Client Recorded Date Recorded By Document 10/18/23 15:40 Desktop 10/18/23 15:42 10/18/23 15:40 Wound Care Center Nurse 3 8-left lateral inferior foot -Other Dressing dakin moistened gauze -Primary Dressing Covered/Secured with Dry Gauze,Dry Gauze & Roll Gauze,Secured with Tape 7. L lateral ankle superior -Ulcer Cleansing Rinsed/ Irrigated with Saline -Other Dressing dakins moistened gauze -Primary Dressing Covered/Secured with Dry Gauze,Dry Gauze & Roll Gauze,Secured with Tape 6. L medial ankle -Other Dressing dakins moistened gauze -Primary Dressing Covered/Secured with Dry Gauze,Dry Gauze & Roll Gauze,Secured with Tape Treatment Response Procedure Tolerated Well Pain Scale: 0-10 Numeric Is Patient Pain Free? Yes - Visit Discharge Discharge Condition Stable Ambulatory Status Wheelchair Transportation Private Auto Medication Reconcilliation completed & No provided to patient/care provider Clinical Summary of Care Provided Yes Assessment/Plan Assessment/Plan (1) Osteomyelitis of ankle or foot, left, acute: CODE(S): M86.172 - Other acute osteomyelitis, left ankle and foot (2) Osteomyelitis of ankle, left, acute: CODE(S): M86.172 - Other acute osteomyelitis, left ankle and foot (3) Abscess of bursa, left ankle and foot: CODE(S): M71.072 - Abscess of bursa, left ankle and foot (4) Cellulitis of left lower limb: CODE(S): L03.116 - Cellulitis of left lower limb (5) Charcot foot due to diabetes mellitus: CODE(S): E11.610 - 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 arthropathy (6) Non-pressure chronic ulcer of left 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: CODE(S): L97.322 - Non-pressure chronic ulcer of left 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 (7) Other acute postprocedural pain: CODE(S): G89.18 - Other acute postprocedural pain (8) Type 2 diabetes mellitus with diabetic polyneuropathy: CODE(S): E11.42 - Type 2 diabetes mellitus with diabetic polyneuropathy QUALIFIERS: Diabetes mellitus nursing home insulin use: without salvage determiner use Qualified Code(s): E11.42 - Type 2 diabetes mellitus with diabetic polyneuropathy (9) Non-pressure chronic ulcer of other part of left foot with necrosis of muscle: CODE(S): L97.523 - Non-pressure chronic ulcer of other part of left foot with necrosis of muscle (10) Gas gangrene of foot: CODE(S): A48.0 - Gas gangrene (11) Diabetic infection of left foot: CODE(S): E11.628 - Type 2 diabetes mellitus with other skin complications;L08.9 - Local infection of the skin and subcutaneous tissue, unspecified (12) Non-pressure chronic ulcer of other part of left foot with necrosis of bone: CODE(S): L97.524 - Non-pressure chronic ulcer of other part of left foot with necrosis of bone (13) Cellulitis: CODE(S): L03.90 - Cellulitis, unspecified QUALIFIERS: Site of cellulitis: extremity Site of cellulitis of extremity: lower extremity Laterality: left Qualified Code(s): L03.116 - Cellulitis of left lower limb (14) Hypertension: CODE(S): I10 - Essential (primary) hypertension QUALIFIERS: Hypertension type: primary hypertension Qualified Code(s): I10 - Essential (primary) hypertension PLAN: Plan The patient appears to be tolerating hyperbaric oxygen therapy well, which will be continued as per their medical treatment plan. 10/20/23 1516 <Electronically signed by Saba Park NP PHYSICAL GEOGRAPHER-C> Cosigner Signature (if applicable): CC: ~ Signed [facility] Work Phone: [phone]) 549-293203-14-2024 Progress note Author Saba Park [facility] October 20, 2023 12:50pm Note Date/Time October 19, 2023 1:0 3pm [facility] [address] [place] [address] Progress Note - Wound Care HBO 10/19/23 1301 MR#: [id number] Acct: [id number] Name: SNEHA WEI Jr. Rep #:[id number] : 1980 43 From: Saba MORGAN PCP: Dr. Liliane Epps, DO Status:REG RCR Location: ADDENDUM by EDDIE Park on 10/20/23 at 1250 Addendum This was the patient's 19th HBO treatment of 30 prescribed treatments. 10/20/23 1250<Electronically signed by Saba Park NP PHYSICAL GEOGRAPHERCarlosC> Cosigner Signature (if applicable): cc: ~* Signed History of Present Illness Date of Service: 10/19/23 Chief Complaint: Diabetic left foot infection with gas gangrene and osteomyelitis; Li grade 3 diabetic foot infection. Subjective Subjective The patient underwent his 1th hyperbaric oxygen therapy session today. The patient is scheduled for a total of 30 such sessions. Tolerance of hyperbaric oxygen therapy: Hyperbaric oxygen therapy was provided as per the facility's protocol. Hyperbaric oxygen therapy was undertaken at 2 krzysztof and 100% oxygen for 90 minutes without air breaks. The patient tolerated hyperbaric oxygen therapy well, without complaints or complications. Upon emergence from the hyperbaric chamber, the patient's vital signs remained stable. Blood sugar levels were monitored both before and after hyperbaric oxygen therapy, and found to be satisfactory. Objective Data Objective Data Vital Signs: Vital Signs Temp Pulse Resp BP O2 Del Method O2 Flow Rate 96.6 F L 85 18 129/80 H Room Air 99 10/18/23 11:08 10/18/23 11:08 10/18/23 11:08 10/18/23 11:08 10/18/23 11:08 10/07/23 00:29 Oxygen Flow Rate (L/min) 99 Oxygen Delivery Method Room Air Weight: 250 lb Body Mass Index (BMI) 33.9 Lab / Micro Data Labs: Laboratory Results - last 24 hr 10/18/23 12:00: POC Glucose 129 H 10/18/23 12:19: POC Glucose 125 H 10/19/23 12:38: POC Glucose 166 H Exam Physical Exam Const alert, oriented x3 and no apparent distress HEENT normocephalic Tympanic Membrane: TM's normal bilaterally Resp normal respiratory effort Effort and Inspection: able to speak in complete sentences Auscultation: clear to auscultation bilaterally Cardio regular rate and regular rhythm Psych mental status grossly normal, thought process normal, cooperative, affect normaland speech normal Nursing Assessment and Debridement Post-Debridement Measurements and Additional Note: Post-Debridement Measurements/Treatment WC - Nurse 1 - General Ulcer Assessment Start: 10/07/23 08:27 Freq: Status: Active Protocol: GWEN Activity Type Activity Date Activity User E-sign Co-sign Detail Recorded Client Recorded Date Recorded By Document 10/18/23 11:08 [employer] Desktop 10/18/23 11:25 KW 10/18/23 11:08 WC - Today's Visit Information Type of service Follow-up Visit (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 ) Arrival Mode Wheelchair Accompanied by step father Patient Identification Verified (Name & Yes ) Finger Stick Blood Sugar(mg/dl) (if 123 indicated): Blood Sugar Stated by Patient Height and Weight Body Mass Index (BMI) 33.9 BMI Classification Obese Vital Signs Temperature (97.8 F-99.1 F) 96.6 F L Temperature Source Temporal Pulse Rate (60-100) 85 Pulse Location Monitor Respiratory Rate (12-18) 18 Respiratory rate source Observation Oxygen Delivery Method Room Air Blood Pressure (90/60-120/80) 129/80 H Blood Pressure Mean (mm Hg) 96 Source Monitor Position Semi-Fowlers Blood Pressure Location Left Arm History Since Last Visit- (Skip if this is Patient's initial visit) Have you changed medications since your No last visit? Any new allergies or adverse reactions No Had a fall/change in ADL's that may No increase risk of falls Signs or symptoms of abuse and/or No neglect since last visit Have you been in the hospital since your No last visit? Has dressing in place as prescribed Yes Has compression in place as prescribed Yes Has offloadiing in place as prescribed Yes Experienced any changes in pain level or No management Left Footwear No Footwear Right Footwear Regular Shoe Pain Scale: 0-10 Numeric Is Patient Pain Free? Yes WC - Nurse 1 - General Ulcer Measurement Start: 10/07/23 08:27 Freq: Status: Active Protocol: Activity Type Activity Date Activity User E-sign Co-sign Detail Recorded Client Recorded Date Recorded By Document 10/18/23 11:08 KW Desktop 10/18/23 11:25 KW 10/18/23 11:08 Wound Center Nurse 1 7. L lateral ankle superior -Exudate Amt Small -Exudate Type Serosanguineous -Wound Margin Thickened & Rolled Under -Granulation Amt Large (67-100%) -Granulation Quality [employer] -Texture ([place]-wound Skin Appearance) Assessed, Localized Edema -Moisture ([place]-wound Skin Appearance) Assessed -Color ([place]-wound Skin Appearance) Assessed -Temperature ([place]-wound Skin No Abnormality Appearance) (Pt Warm) -Tenderness on Palpation ([place]-wound No Skin Appearance) -Ulcer Cleansing Soap and Water -Foul Odor after Cleansing No -Anesthetic Used 4% Lidocaine Solution 6. L medial ankle -Current Size (cm) - Length 0.5 -Current Size (cm) - Width 0.2 -Current Size (cm) - Depth 1 -Total Square Cm 0.10 -Exudate Amt Small -Exudate Type Serosanguineous -Wound Margin Thickened & Rolled Under -Granulation Amt Large (67-100%) -Granulation Quality [employer] -Texture ([place]-wound Skin Appearance) Assessed -Moisture ([place]-wound Skin Appearance) Assessed -Color ([place]-wound Skin Appearance) Assessed -Temperature ([place]-wound Skin No Abnormality Appearance) (Pt Warm) -Ulcer Cleansing Soap and Water -Anesthetic Used 4% Lidocaine Solution Left Calf (cm) 35 Left Ankle (cm) 24.5 WC - Nurse 2 - General Ulcer CM Notes Start: 10/07/23 08:27 Freq: Status: Active Protocol: Activity Type Activity Date Activity User E-sign Co-sign Detail Recorded Client Recorded Date Recorded By Document 10/18/23 11:41 Laptop 10/18/23 11:45 10/18/23 11:41 Wound Center Nurse 2 8-left lateral inferior foot -Time 11:42 -Correct Patient Yes -Correct Side, Site, Position Yes -Correct Procedure Yes -Procedure Performed Yes -Type of Procedure Debridement -Clinical Debridement Subcutaneous -Tissue Removed Subcutaneous -Post Debridement (cm) - Length 0.3 -Post Debridement (cm) - Width 0.8 -Post Debridement (cm) - Depth 0.5 -Total Square (Post) (cm) 0.24 -Area of Debridement (cm) - Length 0.3 -Area of Debridement (cm) - Width 0.8 -Total Square (Area) (cm) 0.24 -Tunneling No -Undermining/Tunneling No -Circular Undermining No -Wound/Ulcer Outcome Not Healed -Ulcer Cleansing Rinsed/ Irrigated with Saline -Foul Odor after Cleansing No -Bioengineered Tissue No -Bleeding Controlled with Pressure -Treatment Response Procedure Tolerated Well -Offloading No -Debridement - Subq, 1st 20sq cm No 7. L lateral ankle superior -Time 11:41 -Correct Patient Yes -Correct Side, Site, Position Yes -Correct Procedure Yes -Procedure Performed Yes -Type of Procedure Debridement -Clinical Debridement Subcutaneous -Tissue Removed Subcutaneous -Post Debridement (cm) - Length 0.9 -Post Debridement (cm) - Width 0.2 -Post Debridement (cm) - Depth 0.4 -Total Square (Post) (cm) 0.18 -Area of Debridement (cm) - Length 0.9 -Area of Debridement (cm) - Width 0.2 -Total Square (Area) (cm) 0.18 -Tunneling No -Undermining/Tunneling No -Circular Undermining No -Wound/Ulcer Outcome Not Healed -Ulcer Cleansing Rinsed/ Irrigated with Saline -Foul Odor after Cleansing No -Bioengineered Tissue No -Bleeding Controlled with Pressure -Treatment Response Procedure Tolerated Well -Offloading No -Assistive Device(s) Wheelchair -Debridement - Subq, 1st 20sq cm Yes 6. L medial ankle -Time 11:41 -Correct Patient Yes -Correct Side, Site, Position Yes -Correct Procedure Yes -Procedure Performed Yes -Type of Procedure Debridement -Clinical Debridement Subcutaneous -Tissue Removed Subcutaneous -Post Debridement (cm) - Length 0.9 -Post Debridement (cm) - Width 0.5 -Post Debridement (cm) - Depth 1.5 -Total Square (Post) (cm) 0.45 -Area of Debridement (cm) - Length 0.9 -Area of Debridement (cm) - Width 0.5 -Total Square (Area) (cm) 0.45 -Tunneling No -Undermining/Tunneling No -Circular Undermining No -Wound/Ulcer Outcome Not Healed -Ulcer Cleansing Rinsed/ Irrigated with Saline -Foul Odor after Cleansing No -Bioengineered Tissue No -Bleeding Controlled with Pressure -Treatment Response Procedure Tolerated Well -Offloading Yes -Type of Offloading Surgical Shoe -Assistive Device(s) Wheelchair -Debridement - Subq, 1st 20sq cm No Pain Scale: 0-10 Numeric Is Patient Pain Free? Yes - Nurse 3 - General Ulcer D/C NN Start: 10/07/23 08:27 Freq: Status: Active Protocol: Activity Type Activity Date Activity User E-sign Co-sign Detail Recorded Client Recorded Date Recorded By Document 10/18/23 15:40 RB Desktop 10/18/23 15:42 RB 10/18/23 15:40 Wound Care Center Nurse 3 8-left lateral inferior foot -Other Dressing dakin moistened gauze -Primary Dressing Covered/Secured with Dry Gauze,Dry Gauze & Roll Gauze,Secured with Tape 7. L lateral ankle superior -Ulcer Cleansing Rinsed/ Irrigated with Saline -Other Dressing dakins moistened gauze -Primary Dressing Covered/Secured with Dry Gauze,Dry Gauze & Roll Gauze,Secured with Tape 6. L medial ankle -Other Dressing dakins moistened gauze -Primary Dressing Covered/Secured with Dry Gauze,Dry Gauze & Roll Gauze,Secured with Tape Treatment Response Procedure Tolerated Well Pain Scale: 0-10 Numeric Is Patient Pain Free? Yes - Visit Discharge Discharge Condition Stable Ambulatory Status Wheelchair Transportation Private Auto Medication Reconcilliation completed & No provided to patient/care provider Clinical Summary of Care Provided Yes Assessment/Plan Assessment/Plan (1) Osteomyelitis of ankle or foot, left, acute: CODE(S): M86.172 - Other acute osteomyelitis, left ankle and foot (2) Osteomyelitis of ankle, left, acute: CODE(S): M86.172 - Other acute osteomyelitis, left ankle and foot (3) Abscess of bursa, left ankle and foot: CODE(S): M71.072 - Abscess of bursa, left ankle and foot (4) Cellulitis of left lower limb: CODE(S): L03.116 - Cellulitis of left lower limb (5) Charcot foot due to diabetes mellitus: CODE(S): E11.610 - 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 arthropathy (6) Non-pressure chronic ulcer of left 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: CODE(S): L97.322 - Non-pressure chronic ulcer of left 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 (7) Other acute postprocedural pain: CODE(S): G89.18 - Other acute postprocedural pain (8) Type 2 diabetes mellitus with diabetic polyneuropathy: CODE(S): E11.42 - Type 2 diabetes mellitus with diabetic polyneuropathy QUALIFIERS: Diabetes mellitus salvage determiner insulin use: without salvage determiner use Qualified Code(s): E11.42 - Type 2 diabetes mellitus with diabetic polyneuropathy (9) Non-pressure chronic ulcer of other part of left foot with necrosis of muscle: CODE(S): L97.523 - Non-pressure chronic ulcer of other part of left foot with necrosis of muscle (10) Gas gangrene of foot: CODE(S): A48.0 - Gas gangrene (11) Diabetic infection of left foot: CODE(S): E11.628 - Type 2 diabetes mellitus with other skin complications;L08.9 - Local infection of the skin and subcutaneous tissue, unspecified (12) Non-pressure chronic ulcer of other part of left foot with necrosis of bone: CODE(S): L97.524 - Non-pressure chronic ulcer of other part of left foot with necrosis of bone (13) Cellulitis: CODE(S): L03.90 - Cellulitis, unspecified QUALIFIERS: Site of cellulitis: extremity Site of cellulitis of extremity: lower extremity Laterality: left Qualified Code(s): L03.116 - Cellulitis of left lower limb (14) Hypertension: CODE(S): I10 - Essential (primary) hypertension QUALIFIERS: Hypertension type: primary hypertension Qualified Code(s): I10 - Essential (primary) hypertension PLAN: Plan The patient appears to be tolerating hyperbaric oxygen therapy well, which will be continued as per their medical treatment plan. 10/19/23 1079 <Electronically signed by Saba Park PHYSICAL GEOGRAPHER PHYSICAL GEOGRAPHER-C> Cosigner Signature (if applicable): CC: ~ Signed [facility] Work Phone: 1(497) 730-285203-12-2024 Progress note Author Jordi Perkins [facility] October 18, 2023 11:45am Note Date/Time October 18, 2023 11: 45am [facility] [address] [place] [address] Progress Note - Wound Care 10/18/23 1143 MR#: [id number] Acct: [id number] Name: SNEHA WEI Jr. Rep #:[id number] : 1980 43 From: Jordi Perkins DPM PCP: Dr. Liliane Epps, DO Status:REG RCR Location: History of Present Illness Date of Service: 10/18/23 Chief Complaint: Diabetic left foot infection with gas gangrene and osteomyelitis; Li grade 3 diabetic foot infection. History of Wound: 43-year-old male status post left Charcot reconstruction. Denies constitutional symptoms. Wound is improving today. Per patient w Objective Data Objective Data Vital Signs: Vital Signs Temp Pulse Resp BP O2 Del Method O2 Flow Rate 96.6 F L 85 18 129/80 H Room Air 99 10/18/23 11:08 10/18/23 11:08 10/18/23 11:08 10/18/23 11:08 10/18/23 11:08 10/07/23 00:29 Oxygen Flow Rate (L/min) 99 Oxygen Delivery Method Room Air Weight: 113.398 kg Body Mass Index (BMI) 33.9 Lab / Micro Data Labs: Laboratory Results - last 24 hr 10/17/23 12:55: POC Glucose 137 H 10/17/23 15:05: POC Glucose 124 H Physical Exam Narrative Neurovascular status unchanged Full-thickness wounds to medial ankle, 3 cc purulence drained from the site today. Lateral ankle wound down to the level of bone noted with intact vessel loop closure allowing for partial wound closure, additional 3 cc purulence drained from the site. Pre and postdebridement measurements documented in notesnursing notes. This was debrided down to level of muscle today. No residual abscess noted. New onset redness swelling to plantar midfoot with possible fluctuance and increase in warmth. Concern for deep abscess. No signs of DVT. Const alert and oriented x3 Debridement Note Debridement Note Post-Debridement Measurements and Additional Note: Post-Debridement Measurements/Treatment MARY - Nurse 1 - General Ulcer Assessment Start: 10/07/23 08:27 Freq: Status: Active Protocol: GWEN Activity Type Activity Date Activity User E-sign Co-sign Detail Recorded Client Recorded Date Recorded By Document 10/11/23 12:05 RB [id number] 10/11/23 12:09 RB Document 10/18/23 11:08 KW Desktop 10/18/23 11:25 KW 10/11/23 10/18/23 12:05 11:08 - Today's Visit Information Type of service Follow-up Visit Follow-up Visit (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 (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 ) ) Arrival Mode Wheelchair Wheelchair Transfer Assistance Manual Accompanied by step father Patient Identification Verified (Name & Yes Yes ) Patient Requires Transmission-Based No Precautions Finger Stick Blood Sugar(mg/dl) (if 123 indicated): Blood Sugar Stated by Patient Height and Weight Body Mass Index (BMI) 33.9 33.9 BMI Classification Obese Obese Vital Signs Temperature (97.8 F-99.1 F) 98 F 96.6 F L Temperature Source Temporal Temporal Pulse Rate (60-100) 94 85 Pulse Location Monitor Monitor Respiratory Rate (12-18) 18 18 Respiratory rate source Observation Observation Oxygen Delivery Method Room Air Blood Pressure (90/60-120/80) 121/73 H 129/80 H Blood Pressure Mean (mm Hg) 89 96 Source Monitor Monitor Position Sitting Semi-Fowlers Blood Pressure Location Left Arm Left Arm History Since Last Visit- (Skip if this is Patient's initial visit) Have you changed medications since your No No last visit? Any new allergies or adverse reactions No No Had a fall/change in ADL's that may No No increase risk of falls Signs or symptoms of abuse and/or No No neglect since last visit Have you been in the hospital since your No No last visit? Has dressing in place as prescribed Yes Yes Has compression in place as prescribed Yes Yes Has offloadiing in place as prescribed Yes Yes Experienced any changes in pain level or No No management Left Footwear No Footwear Right Footwear Regular Shoe Pain Scale: 0-10 Numeric Is Patient Pain Free? Yes Yes - Nurse 1 - General Ulcer Measurement Start: 10/07/23 08:27 Freq: Status: Active Protocol: Activity Type Activity Date Activity User E-sign Co-sign Detail Recorded Client Recorded Date Recorded By Document 10/11/23 12:05 RB [id number] 10/11/23 12:09 RB Document 10/18/23 11:08 KW Desktop 10/18/23 11:25 KW 10/11/23 10/18/23 12:05 11:08 Wound Center Nurse 1 7. L lateral ankle -Combined with other wound No -Current Size (cm) - Length 1 -Current Size (cm) - Width 0.5 -Current Size (cm) - Depth 1 -Total Square Cm 0.5 -Tunneling No -Undermining/Tunneling No -Circular Undermining No -Exudate Amt Large Small -Exudate Type Serosanguineous Serosanguineous -Wound Margin Thickened & Thickened & Rolled Under Rolled Under -Granulation Amt Medium (34-66%) Large (67-100%) -Granulation Quality [employer] -Slough/Fibrin Yes -Necrosis Amt Medium (34-66%) -Necrotic Tissue Type Adherent Slough -Structure Exposed N/A -Texture ([place]-wound Skin Appearance) Assessed, Assessed, Scarring Localized Edema -Moisture ([place]-wound Skin Appearance) Assessed Assessed -Color ([place]-wound Skin Appearance) Assessed Assessed -Temperature ([place]-wound Skin No Abnormality No Abnormality Appearance) (Pt Warm) (Pt Warm) -Tenderness on Palpation ([place]-wound No No Skin Appearance) -Ulcer Cleansing Wound Cleanser Soap and Water -Foul Odor after Cleansing No No -Anesthetic Used 4% Lidocaine 4% Lidocaine Solution Solution 6. L medial ankle -Combined with other wound No -Current Size (cm) - Length 1 0.5 -Current Size (cm) - Width 0.5 0.2 -Current Size (cm) - Depth 1 1 -Total Square Cm 0.5 0.10 -Tunneling No -Undermining/Tunneling No -Circular Undermining No -Exudate Amt Large Small -Exudate Type Serosanguineous Serosanguineous -Wound Margin Thickened & Thickened & Rolled Under Rolled Under -Granulation Amt Medium (34-66%) Large (67-100%) -Granulation Quality [employer] -Slough/Fibrin Yes -Necrosis Amt Medium (34-66%) -Necrotic Tissue Type Adherent Slough -Structure Exposed N/A -Texture ([place]-wound Skin Appearance) Assessed, Assessed Scarring -Moisture ([place]-wound Skin Appearance) Assessed Assessed -Color ([place]-wound Skin Appearance) Assessed Assessed -Temperature ([place]-wound Skin No Abnormality No Abnormality Appearance) (Pt Warm) (Pt Warm) -Tenderness on Palpation ([place]-wound No Skin Appearance) -Ulcer Cleansing Wound Cleanser Soap and Water -Foul Odor after Cleansing No -Anesthetic Used 5% Lidocaine 4% Lidocaine Gel Solution Left Calf (cm) 35 Left Ankle (cm) 24.5 WC - Nurse 2 - General Ulcer CM Notes Start: 10/07/23 08:27 Freq: Status: Active Protocol: Activity Type Activity Date Activity User E-sign Co-sign Detail Recorded Client Recorded Date Recorded By Document 10/11/23 11:34 Laptop 10/11/23 11:52 10/11/23 11:34 Wound Center Nurse 2 7. L lateral ankle -Time 11:50 -Correct Patient Yes -Correct Side, Site, Position Yes -Correct Procedure Yes -Procedure Performed Yes -Type of Procedure Debridement -Clinical Debridement Muscle / Fascia -Tissue Removed Muscle -Post Debridement (cm) - Length 6.0 -Post Debridement (cm) - Width 1.0 -Post Debridement (cm) - Depth 1.2 -Total Square (Post) (cm) 6.00 -Area of Debridement (cm) - Length 6.0 -Area of Debridement (cm) - Width 1.0 -Total Square (Area) (cm) 6.00 -Tunneling No -Undermining/Tunneling No -Circular Undermining No -Wound/Ulcer Outcome Not Healed -Ulcer Cleansing Rinsed/ Irrigated with Saline -Foul Odor after Cleansing No -Bioengineered Tissue No -Bleeding Controlled with Pressure -Treatment Response Procedure Tolerated Well -Offloading No -Debridement - Muscle / Fascia, 1st No 20sq cm 6. L medial ankle -Time 11:51 -Correct Patient Yes -Correct Side, Site, Position Yes -Correct Procedure Yes -Procedure Performed Yes -Type of Procedure Debridement -Clinical Debridement Muscle / Fascia -Tissue Removed Muscle -Post Debridement (cm) - Length 1.1 -Post Debridement (cm) - Width 0.4 -Post Debridement (cm) - Depth 1 -Total Square (Post) (cm) 0.44 -Area of Debridement (cm) - Length 1.1 -Area of Debridement (cm) - Width 0.4 -Total Square (Area) (cm) 0.44 -Tunneling No -Undermining/Tunneling Yes -Undermining/Tunneling Starts (O'clock 2 ) -Undermining/Tunneling Ends (O'clock) 5 -Maximum Distance (cm) 2.0 -Circular Undermining No -Wound/Ulcer Outcome Not Healed -Ulcer Cleansing Rinsed/ Irrigated with Saline -Foul Odor after Cleansing No -Bioengineered Tissue No -Bleeding Controlled with Pressure -Treatment Response Procedure Tolerated Well -Offloading No -Debridement - Muscle / Fascia, 1st Yes 20sq cm Pain Scale: 0-10 Numeric Is Patient Pain Free? Yes - Nurse 3 - General Ulcer D/C NN Start: 10/07/23 08:27 Freq: Status: Active Protocol: Activity Type Activity Date Activity User E-sign Co-sign Detail Recorded Client Recorded Date Recorded By Document 10/07/23 10:04 BRIAN [id number] 10/07/23 10:07 Document 10/11/23 12:05 RB [id number] 10/11/23 12:09 RB 10/07/23 10/11/23 10:04 12:05 Wound Care Center Nurse 3 7. L lateral ankle -Other Dressing DAKINS MOISTENED GAUZE -Primary Dressing Covered/Secured with Dry Gauze & Roll Gauze, Secured with Tape 6. L medial ankle -Other Dressing [id number] MOISTENED GAUZE -Primary Dressing Covered/Secured with Dry Gauze & Roll Gauze, Secured with Tape Left -Tubular Bandage Double Layer -Size of Tubigrip Used Size E -Size E ($) 2 Treatment Response Procedure Tolerated Well Vital Signs Temperature (97.8 F-99.1 F) 98 F Temperature Source Temporal Pulse Rate (60-100) 94 Pulse Location Monitor Respiratory Rate (12-18) 18 Respiratory rate source Observation Blood Pressure (90/60-120/80) 121/73 H Blood Pressure Mean (mm Hg) 89 Source Monitor Position Sitting Blood Pressure Location Left Arm Pain Scale: 0-10 Numeric Is Patient Pain Free? Yes Yes - Visit Discharge Discharge Condition Stable Stable Ambulatory Status Wheelchair Wheelchair Transportation Private Auto Private Auto Accompanied by PARENTS Medication Reconcilliation completed & No provided to patient/care provider Clinical Summary of Care Provided Yes Notes: Patient tolerated HBO treatment without difficulty. Heading to the hospital to get his xray ordered by Dr Perkins. Assessment/Plan Assessment/Plan (1) Osteomyelitis of ankle, left, acute: CODE(S): M86.172 - Other acute osteomyelitis, left ankle and foot PLAN: Exam performed Patient on IV meropenem via PICC line per infectious disease for enterococcal and pseudomonal infection left lower extremity with bone involvement will transition to p.o. antibiotics per infectious disease. Cultures from new onset abscess last week negative for any bacterial growth. wound significantly improved Today left lower extremity wound to lateral ankle was debrided down to and including level of muscle excisionally using a 5 mm dermal curette without incident. No anesthesia due to neuropathy. Hemostasis obtained with light compression. Patient tolerated procedure well. Pre and postdebridement measurements documented nursing notes. Change to daily Dakin's packing with DSD and Tubigrip. Patient follows up weekly Patient nonweightbearing left lower extremity Patient receiving HBO therapy Blood sugar well-controlled Concern for new onset deep abscess with redness swelling to left forefoot. MRI ordered. Follow-up 1 week (2) Charcot foot due to diabetes mellitus: CODE(S): E11.610 - 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 arthropathy (3) Abscess of bursa, left ankle and foot: CODE(S): M71.072 - Abscess of bursa, left ankle and foot (4) Cellulitis of left lower limb: CODE(S): L03.116 - Cellulitis of left lower limb (5) Non-pressure chronic ulcer of left 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: CODE(S): L97.322 - Non-pressure chronic ulcer of left 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 (6) Type 2 diabetes mellitus with diabetic polyneuropathy: CODE(S): E11.42 - Type 2 diabetes mellitus with diabetic polyneuropathy QUALIFIERS: Diabetes mellitus nursing home insulin use: without salvage determiner use Qualified Code(s): E11.42 - Type 2 diabetes mellitus with diabetic polyneuropathy 10/18/23 1145 <Electronically signed by Jordi Perkins DPM> Cosigner Signature (if applicable): CC: ~ Signed [facility] Work Phone: 1(829) 934-205203-12-2024 Progress note Author Saba Park [facility] October 18, 2023 8:48am Note Date/Time October 17, 2023 1:1 7pm [facility] [address] [place] [address] Progress Note - Wound Care HBO 10/17/23 1316 MR#: [id number] Acct: [id number] Name: SNEHA WEI Jr. Rep #:[id number] : 1980 43 From: Saba sanabira NP PHYSICAL GEOGRAPHER-C PCP: Dr. Liliane Epps, DO Status:REG RCR Location: History of Present Illness Date of Service: 10/17/23 Chief Complaint: Diabetic left foot infection with gas gangrene and osteomyelitis; Li grade 3 diabetic foot infection. History of Wound: 43-year-old male status post left Charcot reconstruction. Denies constitutional symptoms. Notes increased drainage to the medial and lateral left ankle. Per nursing dressing change. No other complaints today. Subjective Subjective The patient underwent his 18th hyperbaric oxygen therapy session today. The patient is scheduled for a total of 30 such sessions. Tolerance of hyperbaric oxygen therapy: Hyperbaric oxygen therapy was provided as per the facility's protocol. Hyperbaric oxygen therapy was undertaken at 2 krzysztof and 100% oxygen for 90 minutes without air breaks. The patient tolerated hyperbaric oxygen therapy well, without complaints or complications. Upon emergence from the hyperbaric chamber, the patient's vital signs remained stable. Blood sugar levels were monitored both before and after hyperbaric oxygen therapy, and found to be satisfactory. Objective Data Objective Data Vital Signs: Vital Signs Temp Pulse Resp BP O2 Flow Rate 96.8 F L 85 18 110/75 99 10/13/23 14:16 10/13/23 14:16 10/13/23 14:16 10/13/23 14:16 10/07/23 00:29 Oxygen Flow Rate (L/min) 99 Weight: 250 lb Body Mass Index (BMI) 33.9 Exam Physical Exam Const alert, oriented x3 and no apparent distress HEENT normocephalic Tympanic Membrane: TM's normal bilaterally Resp normal respiratory effort Effort and Inspection: able to speak in complete sentences Auscultation: clear to auscultation bilaterally Cardio regular rate and regular rhythm Psych mental status grossly normal, thought process normal, cooperative, affect normaland speech normal Assessment/Plan Assessment/Plan (1) Osteomyelitis of ankle or foot, left, acute: CODE(S): M86.172 - Other acute osteomyelitis, left ankle and foot (2) Osteomyelitis of ankle, left, acute: CODE(S): M86.172 - Other acute osteomyelitis, left ankle and foot (3) Abscess of bursa, left ankle and foot: CODE(S): M71.072 - Abscess of bursa, left ankle and foot (4) Cellulitis of left lower limb: CODE(S): L03.116 - Cellulitis of left lower limb (5) Charcot foot due to diabetes mellitus: CODE(S): E11.610 - 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 arthropathy (6) Non-pressure chronic ulcer of left 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: CODE(S): L97.322 - Non-pressure chronic ulcer of left 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 (7) Other acute postprocedural pain: CODE(S): G89.18 - Other acute postprocedural pain (8) Type 2 diabetes mellitus with diabetic polyneuropathy: CODE(S): E11.42 - Type 2 diabetes mellitus with diabetic polyneuropathy QUALIFIERS: Diabetes mellitus nursing home insulin use: without nursing home use Qualified Code(s): E11.42 - Type 2 diabetes mellitus with diabetic polyneuropathy (9) Non-pressure chronic ulcer of other part of left foot with necrosis of muscle: CODE(S): L97.523 - Non-pressure chronic ulcer of other part of left foot with necrosis of muscle (10) Gas gangrene of foot: CODE(S): A48.0 - Gas gangrene (11) Diabetic infection of left foot: CODE(S): E11.628 - Type 2 diabetes mellitus with other skin complications;L08.9 - Local infection of the skin and subcutaneous tissue, unspecified (12) Non-pressure chronic ulcer of other part of left foot with necrosis of bone: CODE(S): L97.524 - Non-pressure chronic ulcer of other part of left foot with necrosis of bone (13) Cellulitis: CODE(S): L03.90 - Cellulitis, unspecified QUALIFIERS: Site of cellulitis: extremity Site of cellulitis of extremity: lower extremity Laterality: left Qualified Code(s): L03.116 - Cellulitis of left lower limb (14) Hypertension: CODE(S): I10 - Essential (primary) hypertension QUALIFIERS: Hypertension type: primary hypertension Qualified Code(s): I10 - Essential (primary) hypertension PLAN: Plan The patient appears to be tolerating hyperbaric oxygen therapy well, which will be continued as per their medical treatment plan. 10/18/23 0848 <Electronically signed by Saba Park NP PHYSICAL GEOGRAPHER-C> Cosigner Signature (if applicable): CC: ~ Signed [facility] Work Phone: [phone]) [phone] Progress note Author June Senior [facility] October 13, 2023 4:25pm Note Date/Time October 13, 2023 4:16 pm [facility] [address] [place] [address] Progress Note - Wound Care HBO 10/13/23 1613 MR#: [id number] Acct: [id number] Name: SNEHA WEI JrGiovanny Rep #:[id number] : 1980 43 From: June aguirre NP PHYSICAL GEOGRAPHER-C PCP: Dr. Liliane Epps, DO Status:REG RCR Location: History of Present Illness Date of Service: 10/13/23 Chief Complaint: Diabetic left foot infection with gas gangrene and osteomyelitis; Li grade 3 diabetic foot infection. History of Wound: 43-year-old male status post left Charcot reconstruction. Denies constitutional symptoms. Notes increased drainage to the medial and lateral left ankle. Per nursing dressing change. No other complaints today. Progress of Wound: The patient underwent his 17th hyperbaric oxygen therapy session today. The patient is scheduled for a total of 30 such sessions. Subjective Subjective The patient underwent his 17th hyperbaric oxygen therapy session today. The patient is scheduled for a total of 30 such sessions. Tolerance of hyperbaric oxygen therapy: Hyperbaric oxygen therapy was provided as per the facility's protocol. Hyperbaric oxygen therapy was undertaken at 2 krzysztof and 100% oxygen for 90 minutes without air breaks. The patient tolerated hyperbaric oxygen therapy well, without complaints or complications. Upon emergence from the hyperbaric chamber, the patient's vital signs remained stable. Blood sugar levels were monitored both before and after hyperbaric oxygen therapy, and found to be satisfactory. Objective Data Objective Data Vital Signs: Vital Signs Temp Pulse Resp BP O2 Flow Rate 96.8 F L 85 18 110/75 99 10/13/23 14:16 10/13/23 14:16 10/13/23 14:16 10/13/23 14:16 10/07/23 00:29 Oxygen Flow Rate (L/min) 99 Weight: 250 lb Body Mass Index (BMI) 33.9 Lab / Micro Data Attestation: I reviewed the patient's lab results. Labs: Laboratory Results - last 24 hr 10/12/23 12:33: POC Glucose 126 H 10/12/23 12:48: POC Glucose 120 H 10/13/23 12:34: POC Glucose 199 H 10/13/23 14:59: POC Glucose 197 H Exam Physical Exam Const alert, oriented x3 and no apparent distress HEENT normocephalic HEENT Narrative: Bilateral TM with clear fluid and few bubbles present. No erythema. They are improved compared to yesterday. Resp normal respiratory effort Effort and Inspection: able to speak in complete sentences Auscultation: clear to auscultation bilaterally Cardio regular rate and regular rhythm Psych mental status grossly normal, thought process normal, cooperative, affect normaland speech normal Nursing Assessment and Debridement Post-Debridement Measurements and Additional Note: Post-Debridement Measurements/Treatment - Nurse 1 - General Ulcer Assessment Start: 10/07/23 08:27 Freq: Status: Active Protocol: WC.LOWEXT Activity Type Activity Date Activity User E-sign Co-sign Detail Recorded Client Recorded Date Recorded By Document 10/11/23 12:05 MEMO [id number] 10/11/23 12:09 MEMO 10/11/23 12:05 - Today's Visit Information Type of service Follow-up Visit (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 ) Arrival Mode Wheelchair Transfer Assistance Manual Patient Identification Verified (Name & Yes ) Patient Requires Transmission-Based No Precautions Height and Weight Body Mass Index (BMI) 33.9 BMI Classification Obese Vital Signs Temperature (97.8 F-99.1 F) 98 F Temperature Source Temporal Pulse Rate (60-100) 94 Pulse Location Monitor Respiratory Rate (12-18) 18 Respiratory rate source Observation Blood Pressure (90/60-120/80) 121/73 H Blood Pressure Mean (mm Hg) 89 Source Monitor Position Sitting Blood Pressure Location Left Arm History Since Last Visit- (Skip if this is Patient's initial visit) Have you changed medications since your No last visit? Any new allergies or adverse reactions No Had a fall/change in ADL's that may No increase risk of falls Signs or symptoms of abuse and/or No neglect since last visit Have you been in the hospital since your No last visit? Has dressing in place as prescribed Yes Has compression in place as prescribed Yes Has offloadiing in place as prescribed Yes Experienced any changes in pain level or No management Pain Scale: 0-10 Numeric Is Patient Pain Free? Yes WC - Nurse 1 - General Ulcer Measurement Start: 10/07/23 08:27 Freq: Status: Active Protocol: Activity Type Activity Date Activity User E-sign Co-sign Detail Recorded Client Recorded Date Recorded By Document 10/11/23 12:05 MEMO [id number] 10/11/23 12:09 MEMO 10/11/23 12:05 Wound Center Nurse 1 7. L lateral ankle -Combined with other wound No -Current Size (cm) - Length 1 -Current Size (cm) - Width 0.5 -Current Size (cm) - Depth 1 -Total Square Cm 0.5 -Tunneling No -Undermining/Tunneling No -Circular Undermining No -Exudate Amt Large -Exudate Type Serosanguineous -Wound Margin Thickened & Rolled Under -Granulation Amt Medium (34-66%) -Granulation Quality [employer] -Slough/Fibrin Yes -Necrosis Amt Medium (34-66%) -Necrotic Tissue Type Adherent Slough -Structure Exposed N/A -Texture ([place]-wound Skin Appearance) Assessed, Scarring -Moisture ([place]-wound Skin Appearance) Assessed -Color ([place]-wound Skin Appearance) Assessed -Temperature ([place]-wound Skin No Abnormality Appearance) (Pt Warm) -Tenderness on Palpation ([place]-wound No Skin Appearance) -Ulcer Cleansing Wound Cleanser -Foul Odor after Cleansing No -Anesthetic Used 4% Lidocaine Solution 6. L medial ankle -Combined with other wound No -Current Size (cm) - Length 1 -Current Size (cm) - Width 0.5 -Current Size (cm) - Depth 1 -Total Square Cm 0.5 -Tunneling No -Undermining/Tunneling No -Circular Undermining No -Exudate Amt Large -Exudate Type Serosanguineous -Wound Margin Thickened & Rolled Under -Granulation Amt Medium (34-66%) -Granulation Quality [employer] -Slough/Fibrin Yes -Necrosis Amt Medium (34-66%) -Necrotic Tissue Type Adherent Slough -Structure Exposed N/A -Texture ([place]-wound Skin Appearance) Assessed, Scarring -Moisture ([place]-wound Skin Appearance) Assessed -Color ([place]-wound Skin Appearance) Assessed -Temperature ([place]-wound Skin No Abnormality Appearance) (Pt Warm) -Tenderness on Palpation ([place]-wound No Skin Appearance) -Ulcer Cleansing Wound Cleanser -Foul Odor after Cleansing No -Anesthetic Used 5% Lidocaine Gel WC - Nurse 2 - General Ulcer CM Notes Start: 10/07/23 08:27 Freq: Status: Active Protocol: Activity Type Activity Date Activity User E-sign Co-sign Detail Recorded Client Recorded Date Recorded By Document 10/11/23 11:34 Laptop 10/11/23 11:52 10/11/23 11:34 Wound Center Nurse 2 7. L lateral ankle -Time 11:50 -Correct Patient Yes -Correct Side, Site, Position Yes -Correct Procedure Yes -Procedure Performed Yes -Type of Procedure Debridement -Clinical Debridement Muscle / Fascia -Tissue Removed Muscle -Post Debridement (cm) - Length 6.0 -Post Debridement (cm) - Width 1.0 -Post Debridement (cm) - Depth 1.2 -Total Square (Post) (cm) 6.00 -Area of Debridement (cm) - Length 6.0 -Area of Debridement (cm) - Width 1.0 -Total Square (Area) (cm) 6.00 -Tunneling No -Undermining/Tunneling No -Circular Undermining No -Wound/Ulcer Outcome Not Healed -Ulcer Cleansing Rinsed/ Irrigated with Saline -Foul Odor after Cleansing No -Bioengineered Tissue No -Bleeding Controlled with Pressure -Treatment Response Procedure Tolerated Well -Offloading No -Debridement - Muscle / Fascia, 1st No 20sq cm 6. L medial ankle -Time 11:51 -Correct Patient Yes -Correct Side, Site, Position Yes -Correct Procedure Yes -Procedure Performed Yes -Type of Procedure Debridement -Clinical Debridement Muscle / Fascia -Tissue Removed Muscle -Post Debridement (cm) - Length 1.1 -Post Debridement (cm) - Width 0.4 -Post Debridement (cm) - Depth 1 -Total Square (Post) (cm) 0.44 -Area of Debridement (cm) - Length 1.1 -Area of Debridement (cm) - Width 0.4 -Total Square (Area) (cm) 0.44 -Tunneling No -Undermining/Tunneling Yes -Undermining/Tunneling Starts (O'clock 2 ) -Undermining/Tunneling Ends (O'clock) 5 -Maximum Distance (cm) 2.0 -Circular Undermining No -Wound/Ulcer Outcome Not Healed -Ulcer Cleansing Rinsed/ Irrigated with Saline -Foul Odor after Cleansing No -Bioengineered Tissue No -Bleeding Controlled with Pressure -Treatment Response Procedure Tolerated Well -Offloading No -Debridement - Muscle / Fascia, 1st Yes 20sq cm Pain Scale: 0-10 Numeric Is Patient Pain Free? Yes - Nurse 3 - General Ulcer D/C NN Start: 10/07/23 08:27 Freq: Status: Active Protocol: Activity Type Activity Date Activity User E-sign Co-sign Detail Recorded Client Recorded Date Recorded By Document 10/11/23 12:05 RB [id number] 10/11/23 12:09 RB 10/11/23 12:05 Wound Care Center Nurse 3 7. L lateral ankle -Other Dressing DAKINS MOISTENED GAUZE -Primary Dressing Covered/Secured with Dry Gauze & Roll Gauze, Secured with Tape 6. L medial ankle -Other Dressing [id number] MOISTENED GAUZE -Primary Dressing Covered/Secured with Dry Gauze & Roll Gauze, Secured with Tape Left -Tubular Bandage Double Layer -Size of Tubigrip Used Size E -Size E ($) 2 Treatment Response Procedure Tolerated Well Vital Signs Temperature (97.8 F-99.1 F) 98 F Temperature Source Temporal Pulse Rate (60-100) 94 Pulse Location Monitor Respiratory Rate (12-18) 18 Respiratory rate source Observation Blood Pressure (90/60-120/80) 121/73 H Blood Pressure Mean (mm Hg) 89 Source Monitor Position Sitting Blood Pressure Location Left Arm Pain Scale: 0-10 Numeric Is Patient Pain Free? Yes - Visit Discharge Discharge Condition Stable Ambulatory Status Wheelchair Transportation Private Auto Medication Reconcilliation completed & No provided to patient/care provider Clinical Summary of Care Provided Yes Charges/Coding Wound Center CF Procedures HBO Supervision: [id number] Hyperbaric Oxygen; supervision Assessment/Plan Assessment/Plan (1) Osteomyelitis of ankle or foot, left, acute: CODE(S): M86.172 - Other acute osteomyelitis, left ankle and foot (2) Osteomyelitis of ankle, left, acute: CODE(S): M86.172 - Other acute osteomyelitis, left ankle and foot (3) Abscess of bursa, left ankle and foot: CODE(S): M71.072 - Abscess of bursa, left ankle and foot (4) Cellulitis of left lower limb: CODE(S): L03.116 - Cellulitis of left lower limb (5) Charcot foot due to diabetes mellitus: CODE(S): E11.610 - 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 arthropathy (6) Non-pressure chronic ulcer of left 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: CODE(S): L97.322 - Non-pressure chronic ulcer of left 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 (7) Other acute postprocedural pain: CODE(S): G89.18 - Other acute postprocedural pain (8) Type 2 diabetes mellitus with diabetic polyneuropathy: CODE(S): E11.42 - Type 2 diabetes mellitus with diabetic polyneuropathy QUALIFIERS: Diabetes mellitus salvage determiner insulin use: without nursing home use Qualified Code(s): E11.42 - Type 2 diabetes mellitus with diabetic polyneuropathy (9) Non-pressure chronic ulcer of other part of left foot with necrosis of muscle: CODE(S): L97.523 - Non-pressure chronic ulcer of other part of left foot with necrosis of muscle (10) Gas gangrene of foot: CODE(S): A48.0 - Gas gangrene (11) Diabetic infection of left foot: CODE(S): E11.628 - Type 2 diabetes mellitus with other skin complications;L08.9 - Local infection of the skin and subcutaneous tissue, unspecified (12) Non-pressure chronic ulcer of other part of left foot with necrosis of bone: CODE(S): L97.524 - Non-pressure chronic ulcer of other part of left foot with necrosis of bone (13) Cellulitis: CODE(S): L03.90 - Cellulitis, unspecified QUALIFIERS: Site of cellulitis: extremity Site of cellulitis of extremity: lower extremity Laterality: left Qualified Code(s): L03.116 - Cellulitis of left lower limb (14) Hypertension: CODE(S): I10 - Essential (primary) hypertension QUALIFIERS: Hypertension type: primary hypertension Qualified Code(s): I10 - Essential (primary) hypertension PLAN: Plan The patient appears to be tolerating hyperbaric oxygen therapy well, which will be continued as per their medical treatment plan. 10/13/23 1625 <Electronically signed by June Senior NP PHYSICAL GEOGRAPHER-C> Cosigner Signature (if applicable): CC: ~ Signed [facility] Work Phone: [phone]) 115-916803-06-2024 Progress note Author June Senior [facility] October 12, 2023 2:26pm Note Date/Time October 12, 2023 2:26 pm [facility] [address] [place] [address] Progress Note - Wound Care HBO 10/12/23 1421 MR#: [id number] Acct: [id number] Name: SNEHA WEI Jr. Rep #:[id number] : 1980 43 From: June aguirre NP PHYSICAL GEOGRAPHER-C PCP: Dr. Liliane Epps, DO Status:REG RCR Location: History of Present Illness Date of Service: 10/12/23 Chief Complaint: Diabetic left foot infection with gas gangrene and osteomyelitis; Li grade 3 diabetic foot infection. History of Wound: 43-year-old male status post left Charcot reconstruction. Denies constitutional symptoms. Notes increased drainage to the medial and lateral left ankle. Per nursing dressing change. No other complaints today. Progress of Wound: Patient came in for HBOT. His initial blood sugar was 126. He states that he has a peanut butter and jelly sandwich for lunch before coming in today. He wasgiven a snack with juice. After waiting 15 minutes, a recheck on his BGT was 120. He was given an ensure with protein and after waiting 15 minutes his BGT was 118. The decision was made to cancel his treatment today. He had no complaints today. On exam, his bilateral TM had fluid visible with bubbles. No erythema and he was not complaining of any pain or hearing issues. He is scheduled to come in tomorrow for HBOT. Objective Data Objective Data Vital Signs: Vital Signs Temp Pulse Resp BP O2 Flow Rate 98 F 94 18 121/73 H 99 10/11/23 12:05 10/11/23 12:05 10/11/23 12:05 10/11/23 12:05 10/07/23 00:29 Oxygen Flow Rate (L/min) 99 Weight: 250 lb Body Mass Index (BMI) 33.9 Lab / Micro Data Labs: Laboratory Results - last 24 hr 10/12/23 13:07: POC Glucose 118 H Exam Nursing Assessment and Debridement Post-Debridement Measurements and Additional Note: Post-Debridement Measurements/Treatment - Nurse 1 - General Ulcer Assessment Start: 10/07/23 08:27 Freq: Status: Active Protocol: GWEN Activity Type Activity Date Activity User E-sign Co-sign Detail Recorded Client Recorded Date Recorded By Document 10/11/23 12:05 MEMO [id number] 10/11/23 12:09 RB 10/11/23 12:05 WC - Today's Visit Information Type of service Follow-up Visit (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 ) Arrival Mode Wheelchair Transfer Assistance Manual Patient Identification Verified (Name & Yes ) Patient Requires Transmission-Based No Precautions Height and Weight Body Mass Index (BMI) 33.9 BMI Classification Obese Vital Signs Temperature (97.8 F-99.1 F) 98 F Temperature Source Temporal Pulse Rate (60-100) 94 Pulse Location Monitor Respiratory Rate (12-18) 18 Respiratory rate source Observation Blood Pressure (90/60-120/80) 121/73 H Blood Pressure Mean (mm Hg) 89 Source Monitor Position Sitting Blood Pressure Location Left Arm History Since Last Visit- (Skip if this is Patient's initial visit) Have you changed medications since your No last visit? Any new allergies or adverse reactions No Had a fall/change in ADL's that may No increase risk of falls Signs or symptoms of abuse and/or No neglect since last visit Have you been in the hospital since your No last visit? Has dressing in place as prescribed Yes Has compression in place as prescribed Yes Has offloadiing in place as prescribed Yes Experienced any changes in pain level or No management Pain Scale: 0-10 Numeric Is Patient Pain Free? Yes - Nurse 1 - General Ulcer Measurement Start: 10/07/23 08:27 Freq: Status: Active Protocol: Activity Type Activity Date Activity User E-sign Co-sign Detail Recorded Client Recorded Date Recorded By Document 10/11/23 12:05 MEMO [id number] 10/11/23 12:09 RB 10/11/23 12:05 Wound Center Nurse 1 7. L lateral ankle -Combined with other wound No -Current Size (cm) - Length 1 -Current Size (cm) - Width 0.5 -Current Size (cm) - Depth 1 -Total Square Cm 0.5 -Tunneling No -Undermining/Tunneling No -Circular Undermining No -Exudate Amt Large -Exudate Type Serosanguineous -Wound Margin Thickened & Rolled Under -Granulation Amt Medium (34-66%) -Granulation Quality [employer] -Slough/Fibrin Yes -Necrosis Amt Medium (34-66%) -Necrotic Tissue Type Adherent Slough -Structure Exposed N/A -Texture ([place]-wound Skin Appearance) Assessed, Scarring -Moisture ([place]-wound Skin Appearance) Assessed -Color ([place]-wound Skin Appearance) Assessed -Temperature ([place]-wound Skin No Abnormality Appearance) (Pt Warm) -Tenderness on Palpation ([place]-wound No Skin Appearance) -Ulcer Cleansing Wound Cleanser -Foul Odor after Cleansing No -Anesthetic Used 4% Lidocaine Solution 6. L medial ankle -Combined with other wound No -Current Size (cm) - Length 1 -Current Size (cm) - Width 0.5 -Current Size (cm) - Depth 1 -Total Square Cm 0.5 -Tunneling No -Undermining/Tunneling No -Circular Undermining No -Exudate Amt Large -Exudate Type Serosanguineous -Wound Margin Thickened & Rolled Under -Granulation Amt Medium (34-66%) -Granulation Quality [employer] -Slough/Fibrin Yes -Necrosis Amt Medium (34-66%) -Necrotic Tissue Type Adherent Slough -Structure Exposed N/A -Texture ([place]-wound Skin Appearance) Assessed, Scarring -Moisture ([place]-wound Skin Appearance) Assessed -Color ([place]-wound Skin Appearance) Assessed -Temperature ([place]-wound Skin No Abnormality Appearance) (Pt Warm) -Tenderness on Palpation ([place]-wound No Skin Appearance) -Ulcer Cleansing Wound Cleanser -Foul Odor after Cleansing No -Anesthetic Used 5% Lidocaine Gel WC - Nurse 2 - General Ulcer CM Notes Start: 10/07/23 08:27 Freq: Status: Active Protocol: Activity Type Activity Date Activity User E-sign Co-sign Detail Recorded Client Recorded Date Recorded By Document 10/11/23 11:34 Laptop 10/11/23 11:52 JF 10/11/23 11:34 Wound Center Nurse 2 7. L lateral ankle -Time 11:50 -Correct Patient Yes -Correct Side, Site, Position Yes -Correct Procedure Yes -Procedure Performed Yes -Type of Procedure Debridement -Clinical Debridement Muscle / Fascia -Tissue Removed Muscle -Post Debridement (cm) - Length 6.0 -Post Debridement (cm) - Width 1.0 -Post Debridement (cm) - Depth 1.2 -Total Square (Post) (cm) 6.00 -Area of Debridement (cm) - Length 6.0 -Area of Debridement (cm) - Width 1.0 -Total Square (Area) (cm) 6.00 -Tunneling No -Undermining/Tunneling No -Circular Undermining No -Wound/Ulcer Outcome Not Healed -Ulcer Cleansing Rinsed/ Irrigated with Saline -Foul Odor after Cleansing No -Bioengineered Tissue No -Bleeding Controlled with Pressure -Treatment Response Procedure Tolerated Well -Offloading No -Debridement - Muscle / Fascia, 1st No 20sq cm 6. L medial ankle -Time 11:51 -Correct Patient Yes -Correct Side, Site, Position Yes -Correct Procedure Yes -Procedure Performed Yes -Type of Procedure Debridement -Clinical Debridement Muscle / Fascia -Tissue Removed Muscle -Post Debridement (cm) - Length 1.1 -Post Debridement (cm) - Width 0.4 -Post Debridement (cm) - Depth 1 -Total Square (Post) (cm) 0.44 -Area of Debridement (cm) - Length 1.1 -Area of Debridement (cm) - Width 0.4 -Total Square (Area) (cm) 0.44 -Tunneling No -Undermining/Tunneling Yes -Undermining/Tunneling Starts (O'clock 2 ) -Undermining/Tunneling Ends (O'clock) 5 -Maximum Distance (cm) 2.0 -Circular Undermining No -Wound/Ulcer Outcome Not Healed -Ulcer Cleansing Rinsed/ Irrigated with Saline -Foul Odor after Cleansing No -Bioengineered Tissue No -Bleeding Controlled with Pressure -Treatment Response Procedure Tolerated Well -Offloading No -Debridement - Muscle / Fascia, 1st Yes 20sq cm Pain Scale: 0-10 Numeric Is Patient Pain Free? Yes WC - Nurse 3 - General Ulcer D/C NN Start: 10/07/23 08:27 Freq: Status: Active Protocol: Activity Type Activity Date Activity User E-sign Co-sign Detail Recorded Client Recorded Date Recorded By Document 10/11/23 12:05 RB [id number] 10/11/23 12:09 RB 10/11/23 12:05 Wound Care Center Nurse 3 7. L lateral ankle -Other Dressing DAKINS MOISTENED GAUZE -Primary Dressing Covered/Secured with Dry Gauze & Roll Gauze, Secured with Tape 6. L medial ankle -Other Dressing [id number] MOISTENED GAUZE -Primary Dressing Covered/Secured with Dry Gauze & Roll Gauze, Secured with Tape Left -Tubular Bandage Double Layer -Size of Tubigrip Used Size E -Size E ($) 2 Treatment Response Procedure Tolerated Well Vital Signs Temperature (97.8 F-99.1 F) 98 F Temperature Source Temporal Pulse Rate (60-100) 94 Pulse Location Monitor Respiratory Rate (12-18) 18 Respiratory rate source Observation Blood Pressure (90/60-120/80) 121/73 H Blood Pressure Mean (mm Hg) 89 Source Monitor Position Sitting Blood Pressure Location Left Arm Pain Scale: 0-10 Numeric Is Patient Pain Free? Yes WC - Visit Discharge Discharge Condition Stable Ambulatory Status Wheelchair Transportation Private Auto Medication Reconcilliation completed & No provided to patient/care provider Clinical Summary of Care Provided Yes Charges/Coding Addendum Addendum: No charge 10/12/23 1426 <Electronically signed by June Senior NP PHYSICAL GEOGRAPHER-C> Cosigner Signature (if applicable): CC: ~ Signed [facility] Work Phone: [phone]) 297-919003-05-2024 Progress note Author Saba Park [facility] October 11, 2023 12:53pm Note Date/Time October 10, 2023 1:23 pm [facility] [address] [place] [address] Progress Note - Wound Care HBO 10/10/23 1321 MR#: [id number] Acct: [id number] Name: SNEHA WEI Jr. Rep #:[id number] : 1980 43 From: Saba sanabria NP PHYSICAL GEOGRAPHER-C PCP: Dr. Liliane Epps, DO Status:REG RCR Location: History of Present Illness Date of Service: 10/10/23 Chief Complaint: Diabetic left foot infection with gas gangrene and osteomyelitis; Li grade 3 diabetic foot infection. History of Wound: 43-year-old male status post left Charcot reconstruction. Denies constitutional symptoms. Notes increased drainage to the medial and lateral left ankle. Per nursing dressing change. No other complaints today. Subjective Subjective The patient underwent his 16th hyperbaric oxygen therapy session today. The patient is scheduled for a total of 30 such sessions. Tolerance of hyperbaric oxygen therapy: Hyperbaric oxygen therapy was provided as per the facility's protocol. Hyperbaric oxygen therapy was undertaken at 2 krzysztof and 100% oxygen for 90 minutes without air breaks. The patient tolerated hyperbaric oxygen therapy well, without complaints or complications. Upon emergence from the hyperbaric chamber, the patient's vital signs remained stable. Blood sugar levels were monitored both before and after hyperbaric oxygen therapy, and found to be satisfactory. Objective Data Objective Data Vital Signs: Vital Signs Temp Pulse Resp BP O2 Flow Rate 96.0 F L 89 16 132/82 H 99 10/07/23 08:28 10/07/23 08:28 10/07/23 08:28 10/07/23 08:28 10/07/23 00:29 Oxygen Flow Rate (L/min) 99 Weight: 250 lb Body Mass Index (BMI) 33.9 Lab / Micro Data Labs: Laboratory Results - last 24 hr 10/10/23 12:37: POC Glucose 196 H Exam Physical Exam Const alert, oriented x3 and no apparent distress HEENT normocephalic Tympanic Membrane: TM's normal bilaterally Resp normal respiratory effort Effort and Inspection: able to speak in complete sentences Auscultation: clear to auscultation bilaterally Cardio regular rate and regular rhythm Psych mental status grossly normal, thought process normal, cooperative, affect normaland speech normal Assessment/Plan Assessment/Plan (1) Osteomyelitis of ankle or foot, left, acute: CODE(S): M86.172 - Other acute osteomyelitis, left ankle and foot (2) Osteomyelitis of ankle, left, acute: CODE(S): M86.172 - Other acute osteomyelitis, left ankle and foot (3) Abscess of bursa, left ankle and foot: CODE(S): M71.072 - Abscess of bursa, left ankle and foot (4) Cellulitis of left lower limb: CODE(S): L03.116 - Cellulitis of left lower limb (5) Charcot foot due to diabetes mellitus: CODE(S): E11.610 - 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 arthropathy (6) Non-pressure chronic ulcer of left 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: CODE(S): L97.322 - Non-pressure chronic ulcer of left 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 (7) Other acute postprocedural pain: CODE(S): G89.18 - Other acute postprocedural pain (8) Type 2 diabetes mellitus with diabetic polyneuropathy: CODE(S): E11.42 - Type 2 diabetes mellitus with diabetic polyneuropathy QUALIFIERS: Diabetes mellitus salvage determiner insulin use: without salvage determiner use Qualified Code(s): E11.42 - Type 2 diabetes mellitus with diabetic polyneuropathy (9) Non-pressure chronic ulcer of other part of left foot with necrosis of muscle: CODE(S): L97.523 - Non-pressure chronic ulcer of other part of left foot with necrosis of muscle (10) Gas gangrene of foot: CODE(S): A48.0 - Gas gangrene (11) Diabetic infection of left foot: CODE(S): E11.628 - Type 2 diabetes mellitus with other skin complications;L08.9 - Local infection of the skin and subcutaneous tissue, unspecified (12) Non-pressure chronic ulcer of other part of left foot with necrosis of bone: CODE(S): L97.524 - Non-pressure chronic ulcer of other part of left foot with necrosis of bone (13) Cellulitis: CODE(S): L03.90 - Cellulitis, unspecified QUALIFIERS: Site of cellulitis: extremity Site of cellulitis of extremity: lower extremity Laterality: left Qualified Code(s): L03.116 - Cellulitis of left lower limb (14) Hypertension: CODE(S): I10 - Essential (primary) hypertension QUALIFIERS: Hypertension type: primary hypertension Qualified Code(s): I10 - Essential (primary) hypertension PLAN: Plan The patient appears to be tolerating hyperbaric oxygen therapy well, which will be continued as per their medical treatment plan. 10/11/23 6035 <Electronically signed by Saba Park NP PHYSICAL GEOGRAPHER-C> Cosigner Signature (if applicable): CC: ~ Signed [facility] Work Phone: [phone]) 954-310303-05-2024 Progress note Author Jordi Perkins [facility] October 11, 2023 11:43am Note Date/Time October 11, 2023 11:4 3am [facility] [address] [place] [address] Progress Note - Wound Care 10/11/23 1141 MR#: [id number] Acct: [id number] Name: SNEHA WEI Jr. Rep #:[id number] : 1980 43 From: Jordi Perkins DPM PCP: Dr. Liliane Epps, DO Status:REG RCR Location: History of Present Illness Date of Service: 10/11/23 Chief Complaint: Diabetic left foot infection with gas gangrene and osteomyelitis; Li grade 3 diabetic foot infection. History of Wound: 43-year-old male status post left Charcot reconstruction. Denies constitutional symptoms. Notes increased drainage to the medial and lateral left ankle. Per nursing dressing change. No other complaints today. Objective Data Objective Data Vital Signs: Vital Signs Temp Pulse Resp BP O2 Flow Rate 96.0 F L 79 18 128/75 H 99 10/07/23 08:28 10/10/23 14:29 10/10/23 14:29 10/10/23 14:29 10/07/23 00:29 Oxygen Flow Rate (L/min) 99 Weight: 113.398 kg Body Mass Index (BMI) 33.9 Lab / Micro Data Labs: Laboratory Results - last 24 hr 10/10/23 12:37: POC Glucose 196 H 10/10/23 14:41: POC Glucose 189 H Physical Exam Narrative Neurovascular status unchanged Full-thickness wounds to medial ankle, 3 cc purulence drained from the site today. Lateral ankle wound down to the level of bone noted with intact vessel loop closure allowing for partial wound closure, additional 3 cc purulence drained from the site. Pre and postdebridement measurements documented in notesnursing notes. This was debrided down to level of muscle today. No residual abscess noted. Resolved acute signs of infection. No signs of DVT. Const alert and oriented x3 Debridement Note Debridement Note Post-Debridement Measurements and Additional Note: Post-Debridement Measurements/Treatment WC - Nurse 3 - General Ulcer D/C NN Start: 10/07/23 08:27 Freq: Status: Active Protocol: Activity Type Activity Date Activity User E-sign Co-sign Detail Recorded Client Recorded Date Recorded By Document 10/07/23 10:04 BRIAN [id number] 10/07/23 10:07 BRIAN 10/07/23 10:04 Pain Scale: 0-10 Numeric Is Patient Pain Free? Yes WC - Visit Discharge Discharge Condition Stable Ambulatory Status Wheelchair Transportation Private Auto Accompanied by PARENTS Notes: Patient tolerated HBO treatment without difficulty. Heading to the hospital to get his xray ordered by Dr Perkins. Assessment/Plan Assessment/Plan (1) Osteomyelitis of ankle, left, acute: CODE(S): M86.172 - Other acute osteomyelitis, left ankle and foot PLAN: Exam performed Patient on IV meropenem via PICC line per infectious disease for enterococcal and pseudomonal infection left lower extremity with bone involvement will transition to p.o. antibiotics per infectious disease. Cultures from new onset abscess last week negative for any bacterial growth. wound significantly improved Today left lower extremity wound to lateral ankle was debrided down to and including level of muscle excisionally using a 5 mm dermal curette without incident. No anesthesia due to neuropathy. Hemostasis obtained with light compression. Patient tolerated procedure well. Pre and postdebridement measurements documented nursing notes. Change to daily Dakin's packing with DSD and Tubigrip. Patient follows up weekly Patient nonweightbearing left lower extremity Patient receiving HBO therapy Blood sugar well-controlled Follow-up 1 week (2) Charcot foot due to diabetes mellitus: CODE(S): E11.610 - 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 arthropathy (3) Abscess of bursa, left ankle and foot: CODE(S): M71.072 - Abscess of bursa, left ankle and foot (4) Cellulitis of left lower limb: CODE(S): L03.116 - Cellulitis of left lower limb (5) Non-pressure chronic ulcer of left 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: CODE(S): L97.322 - Non-pressure chronic ulcer of left 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 (6) Type 2 diabetes mellitus with diabetic polyneuropathy: CODE(S): E11.42 - Type 2 diabetes mellitus with diabetic polyneuropathy QUALIFIERS: Diabetes mellitus nursing home insulin use: without salvage determiner use Qualified Code(s): E11.42 - Type 2 diabetes mellitus with diabetic polyneuropathy 10/11/23 1143 <Electronically signed by Jordi Perkins DPM> Cosigner Signature (if applicable): CC: ~ Signed [facility] Work Phone: [phone]) 439-868503-01-2024 Progress note Author Mercedes Mejia [facility] October 07, 2023 12:26pm Note Date/Time October 07, 2023 12:2 6pm [facility] [address] [place] [address] Progress Note - Wound Care HBO 10/07/23 1225 MR#: [id number] Acct: [id number] Name: SNEHA WEI Jr. Rep #:[id number] : 1980 43 From: Mercedes Mejia DO PCP: Dr. Liliane Epps, Status:REG RCR Location: History of Present Illness Date of Service: 10/07/23 Chief Complaint: Diabetic left foot infection with gas gangrene and osteomyelitis; Li grade 3 diabetic foot infection. History of Wound: 43-year-old male status post left Charcot reconstruction. Denies constitutional symptoms. Notes increased drainage to the medial and lateral left ankle. Per nursing dressing change. No other complaints today. Subjective Subjective The patient underwent his 15th hyperbaric oxygen therapy session today. The patient is scheduled for a total of 30 such sessions. Tolerance of hyperbaric oxygen therapy: Hyperbaric oxygen therapy was provided as per the facility's protocol. Hyperbaric oxygen therapy was undertaken at 2 krzysztof and 100% oxygen for 90 minutes without air breaks. The patient tolerated hyperbaric oxygen therapy well, without complaints or complications. Upon emergence from the hyperbaric chamber, the patient's vital signs remained stable. Blood sugar levels were monitored both before and after hyperbaric oxygen therapy, and found to be satisfactory. Objective Data Objective Data Vital Signs: Vital Signs Temp Pulse Resp BP O2 Flow Rate 96.0 F L 89 16 132/82 H 99 10/07/23 08:28 10/07/23 08:28 10/07/23 08:28 10/07/23 08:28 10/07/23 00:29 Oxygen Flow Rate (L/min) 99 Weight: 113.398 kg Body Mass Index (BMI) 33.9 Lab / Micro Data Labs: Laboratory Results - last 24 hr 10/07/23 07:47: POC Glucose 177 H 10/07/23 09:54: POC Glucose 114 H Exam Physical Exam Const alert, oriented x3 and no apparent distress Psych mental status grossly normal, thought process normal, cooperative, affect normaland speech normal Nursing Assessment and Debridement Post-Debridement Measurements and Additional Note: Post-Debridement Measurements/Treatment WC - Nurse 3 - General Ulcer D/C NN Start: 10/07/23 08:27 Freq: Status: Active Protocol: Activity Type Activity Date Activity User E-sign Co-sign Detail Recorded Client Recorded Date Recorded By Document 10/07/23 10:04 BRIAN [id number] 10/07/23 10:07 BRIAN 10/07/23 10:04 Pain Scale: 0-10 Numeric Is Patient Pain Free? Yes WC - Visit Discharge Discharge Condition Stable Ambulatory Status Wheelchair Transportation Private Auto Accompanied by PARENTS Notes: Patient tolerated HBO treatment without difficulty. Heading to the hospital to get his xray ordered by Dr Perkins. Assessment/Plan Assessment/Plan (1) Osteomyelitis of ankle or foot, left, acute: CODE(S): M86.172 - Other acute osteomyelitis, left ankle and foot (2) Osteomyelitis of ankle, left, acute: CODE(S): M86.172 - Other acute osteomyelitis, left ankle and foot (3) Abscess of bursa, left ankle and foot: CODE(S): M71.072 - Abscess of bursa, left ankle and foot (4) Cellulitis of left lower limb: CODE(S): L03.116 - Cellulitis of left lower limb (5) Charcot foot due to diabetes mellitus: CODE(S): E11.610 - 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 arthropathy (6) Non-pressure chronic ulcer of left 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: CODE(S): L97.322 - Non-pressure chronic ulcer of left 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 (7) Other acute postprocedural pain: CODE(S): G89.18 - Other acute postprocedural pain (8) Type 2 diabetes mellitus with diabetic polyneuropathy: CODE(S): E11.42 - Type 2 diabetes mellitus with diabetic polyneuropathy QUALIFIERS: Diabetes mellitus nursing home insulin use: without nursing home use Qualified Code(s): E11.42 - Type 2 diabetes mellitus with diabetic polyneuropathy (9) Non-pressure chronic ulcer of other part of left foot with necrosis of muscle: CODE(S): L97.523 - Non-pressure chronic ulcer of other part of left foot with necrosis of muscle (10) Gas gangrene of foot: CODE(S): A48.0 - Gas gangrene (11) Diabetic infection of left foot: CODE(S): E11.628 - Type 2 diabetes mellitus with other skin complications;L08.9 - Local infection of the skin and subcutaneous tissue, unspecified (12) Non-pressure chronic ulcer of other part of left foot with necrosis of bone: CODE(S): L97.524 - Non-pressure chronic ulcer of other part of left foot with necrosis of bone (13) Cellulitis: CODE(S): L03.90 - Cellulitis, unspecified QUALIFIERS: Site of cellulitis: extremity Site of cellulitis of extremity: lower extremity Laterality: left Qualified Code(s): L03.116 - Cellulitis of left lower limb (14) Hypertension: CODE(S): I10 - Essential (primary) hypertension QUALIFIERS: Hypertension type: primary hypertension Qualified Code(s): I10 - Essential (primary) hypertension PLAN: Plan The patient appears to be tolerating hyperbaric oxygen therapy well, which will be continued as per their medical treatment plan. 10/07/23 1226 <Electronically signed by Mercedes Mejia DO> Cosigner Signature (if applicable): CC: ~ Signed [facility] Work Phone: [phone]) 612-491202-29-2024 Progress note Author Saba Park [facility] October 06, 2023 3:18pm Note Date/Time October 06, 2023 1:04pm [facility] [address] [place] [id number] Progress Note - Wound Care HBO 10/06/23 1303 MR#: [id number] Acct: [id number] Name: SNEHA WEI Jr. Rep #:[id number] : 1980 43 From: Saba sanabria NP PHYSICAL GEOGRAPHER-C PCP: Dr. Liliane Epps, DO Status:REG RCR Location: History of Present Illness Date of Service: 10/06/23 Chief Complaint: Diabetic left foot infection with gas gangrene and osteomyelitis; Li grade 3 diabetic foot infection. History of Wound: 43-year-old male status post left Charcot reconstruction. Denies constitutional symptoms. Notes increased drainage to the medial and lateral left ankle. Per nursing dressing change. No other complaints today. Progress of Wound: Serial monitoring of the patient's wound is underway by Dr. Perkins, podiatric specialist. Subjective Subjective The patient underwent his 14th hyperbaric oxygen therapy session today. The patient is scheduled for a total of 30 such sessions. Tolerance of hyperbaric oxygen therapy: Hyperbaric oxygen therapy was provided as per the facility's protocol. Hyperbaric oxygen therapy was undertaken at 2 krzysztof and 100% oxygen for 90 minutes without air breaks. The patient tolerated hyperbaric oxygen therapy well, without complaints or complications. Upon emergence from the hyperbaric chamber, the patient's vital signs remained stable. Blood sugar levels were monitored both before and after hyperbaric oxygen therapy, and found to be satisfactory. Objective Data Objective Data Vital Signs: Vital Signs Temp Pulse Resp BP O2 Flow Rate 96.9 F L 91 20 H 131/84 H 99 10/05/23 13:18 10/05/23 13:18 10/05/23 13:18 10/05/23 13:18 09/08/23 00:33 Oxygen Flow Rate (L/min) 99 Weight: 250 lb Body Mass Index (BMI) 33.9 Lab / Micro Data Labs: Laboratory Results - last 24 hr 10/05/23 14:52: POC Glucose 130 H Micro: Microbiology 10/04/23 11:40 Wound - Ankle Gram Stain - Final 10/04/23 11:40 Wound - Ankle Wound Culture - Final No growth aerobically. 10/04/23 11:40 Wound - Ankle Anaerobic Culture - Preliminary No growth in 48 hours. Exam Physical Exam Const alert, oriented x3 and no apparent distress HEENT normocephalic Tympanic Membrane: TM's normal bilaterally Resp normal respiratory effort Effort and Inspection: able to speak in complete sentences Auscultation: clear to auscultation bilaterally Cardio regular rate and regular rhythm Psych mental status grossly normal, thought process normal, cooperative, affect normaland speech normal Nursing Assessment and Debridement Post-Debridement Measurements and Additional Note: Post-Debridement Measurements/Treatment WC - Nurse 1 - General Ulcer Assessment Start: 09/13/23 10:02 Freq: Status: Active Protocol: LOWEXT Activity Type Activity Date Activity User E-sign Co-sign Detail Recorded Client Recorded Date Recorded By Document 10/04/23 11:12 Desktop 10/04/23 11:15 10/04/23 11:12 - Today's Visit Information Type of service Follow-up Visit (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 ) Arrival Mode Wheelchair Transfer Assistance None Patient Identification Verified (Name & Yes ) Patient Requires Transmission-Based No Precautions Height and Weight Body Mass Index (BMI) 33.9 BMI Classification Obese Vital Signs Temperature (97.8 F-99.1 F) 97 F L Temperature Source Temporal Pulse Rate (60-100) 93 Pulse Location Monitor Respiratory Rate (12-18) 18 Respiratory rate source Observation Blood Pressure (90/60-120/80) 137/73 H Blood Pressure Mean (mm Hg) 94 Source Monitor Position Semi-Fowlers Blood Pressure Location Left Arm History Since Last Visit- (Skip if this is Patient's initial visit) Have you changed medications since your No last visit? Any new allergies or adverse reactions No Had a fall/change in ADL's that may No increase risk of falls Signs or symptoms of abuse and/or No neglect since last visit Have you been in the hospital since your No last visit? Has dressing in place as prescribed Yes Has compression in place as prescribed Yes Has offloadiing in place as prescribed No Experienced any changes in pain level or No management Pain Scale: 0-10 Numeric Is Patient Pain Free? Yes - Nurse 1 - General Ulcer Measurement Start: 09/13/23 10:02 Freq: Status: Active Protocol: Activity Type Activity Date Activity User E-sign Co-sign Detail Recorded Client Recorded Date Recorded By Document 10/04/23 11:12 Desktop 10/04/23 11:15 10/04/23 11:12 Wound Center Nurse 1 7. L lateral ankle -Combined with other wound No -Current Size (cm) - Length 1.5 -Current Size (cm) - Width 0.8 -Current Size (cm) - Depth 2 -Total Square Cm 1.20 -Tunneling No -Undermining/Tunneling No -Circular Undermining No -Exudate Amt Large -Exudate Type Serosanguineous -Wound Margin Thickened & Rolled Under -Granulation Amt Large (67-100%) -Granulation Quality [employer],Red -Slough/Fibrin Yes -Necrosis Amt Small (1-33%) -Necrotic Tissue Type Adherent Slough -Structure Exposed N/A -Texture ([place]-wound Skin Appearance) Assessed, Scarring -Moisture ([place]-wound Skin Appearance) Assessed -Color ([place]-wound Skin Appearance) Assessed -Temperature ([place]-wound Skin No Abnormality Appearance) (Pt Warm) -Tenderness on Palpation ([place]-wound No Skin Appearance) -Ulcer Cleansing Wound Cleanser -Foul Odor after Cleansing No -Anesthetic Used 4% Lidocaine Solution 6. L medial ankle -Combined with other wound No -Current Size (cm) - Length 0.5 -Current Size (cm) - Width 0.5 -Current Size (cm) - Depth 2 -Total Square Cm 0.25 -Tunneling No -Undermining/Tunneling No -Circular Undermining No -Exudate Amt Large -Exudate Type Purulent -Wound Margin Distinct, Outline Attached -Granulation Amt Medium (34-66%) -Granulation Quality [employer] -Slough/Fibrin Yes -Necrosis Amt Medium (34-66%) -Necrotic Tissue Type Adherent Slough -Structure Exposed N/A -Texture ([place]-wound Skin Appearance) Assessed, Scarring -Moisture ([place]-wound Skin Appearance) Assessed -Color ([place]-wound Skin Appearance) Assessed -Temperature ([place]-wound Skin No Abnormality Appearance) (Pt Warm) -Tenderness on Palpation ([place]-wound No Skin Appearance) -Ulcer Cleansing Wound Cleanser -Foul Odor after Cleansing No -Anesthetic Used 4% Lidocaine Solution Lower Limb Edema Present Yes Left Calf (cm) 36 Left Ankle (cm) 24 WC - Nurse 2 - General Ulcer CM Notes Start: 09/13/23 10:02 Freq: Status: Active Protocol: Activity Type Activity Date Activity User E-sign Co-sign Detail Recorded Client Recorded Date Recorded By Document 10/04/23 11:39 Laptop 10/04/23 11:49 10/04/23 11:39 Wound Center Nurse 2 7. L lateral ankle -Time 11:47 -Correct Patient Yes -Correct Side, Site, Position Yes -Correct Procedure Yes -Procedure Performed Yes -Type of Procedure Debridement -Clinical Debridement Muscle / Fascia -Tissue Removed Muscle -Post Debridement (cm) - Length 1.6 -Post Debridement (cm) - Width 0.8 -Post Debridement (cm) - Depth 2.0 -Total Square (Post) (cm) 1.28 -Area of Debridement (cm) - Length 1.6 -Area of Debridement (cm) - Width 0.8 -Total Square (Area) (cm) 1.28 -Tunneling No -Undermining/Tunneling No -Circular Undermining No -Wound/Ulcer Outcome Not Healed -Ulcer Cleansing Rinsed/ Irrigated with Saline -Foul Odor after Cleansing No -Bioengineered Tissue No -Bleeding Controlled with Pressure -Treatment Response Procedure Tolerated Well -Offloading No -Debridement - Subq, 1st 20sq cm No -Debridement - Muscle / Fascia, 1st No 20sq cm 6. L medial ankle -Time 11:48 -Correct Patient Yes -Correct Side, Site, Position Yes -Correct Procedure Yes -Procedure Performed Yes -Type of Procedure Debridement -Clinical Debridement Muscle / Fascia -Tissue Removed Muscle -Post Debridement (cm) - Length 0.6 -Post Debridement (cm) - Width 0.6 -Post Debridement (cm) - Depth 2.0 -Total Square (Post) (cm) 0.36 -Area of Debridement (cm) - Length 0.6 -Area of Debridement (cm) - Width 0.6 -Total Square (Area) (cm) 0.36 -Tunneling No -Undermining/Tunneling No -Circular Undermining No -Wound/Ulcer Outcome Not Healed -Ulcer Cleansing Rinsed/ Irrigated with Saline -Foul Odor after Cleansing No -Bioengineered Tissue No -Bleeding Controlled with Pressure -Treatment Response Procedure Tolerated Well -Offloading No -Debridement - Muscle / Fascia, 1st Yes 20sq cm Pain Scale: 0-10 Numeric Is Patient Pain Free? Yes WC - Nurse 3 - General Ulcer D/C NN Start: 09/13/23 10:02 Freq: Status: Active Protocol: Activity Type Activity Date Activity User E-sign Co-sign Detail Recorded Client Recorded Date Recorded By Document 10/04/23 11:58 RB Desktop 10/04/23 12:00 RB 10/04/23 11:58 Wound Care Center Nurse 3 7. L lateral ankle -Ulcer Cleansing Wound Cleanser -Other Dressing daknins moistened gauze / abd -Primary Dressing Covered/Secured with Dry Gauze,Dry Gauze & Roll Gauze,Secured with Tape 6. L medial ankle -Other Dressing dakins mistened gauze/ abd -Primary Dressing Covered/Secured with Dry Gauze,Dry Gauze & Roll Gauze,Secured with Tape Right -Tubular Bandage Single Layer -Size of Tubigrip Used Size F -Size F ($) 1 Left -Tubular Bandage Single Layer -Size of Tubigrip Used Size F -Size F ($) 1 Treatment Response Procedure Tolerated Well Pain Scale: 0-10 Numeric Is Patient Pain Free? Yes Teaching: Wound Center Compression Wraps & Stockings -Person Taught Patient -Teaching Method Discussion, Demonstration -Response to teaching Verbalize understanding WC - Visit Discharge Discharge Condition Stable Ambulatory Status Wheelchair Medication Reconcilliation completed & No provided to patient/care provider Clinical Summary of Care Provided Yes Notes: Marely Cline lpn, Priti Feltons Rn assisted with dressing application Assessment/Plan Assessment/Plan (1) Osteomyelitis of ankle or foot, left, acute: CODE(S): M86.172 - Other acute osteomyelitis, left ankle and foot (2) Osteomyelitis of ankle, left, acute: CODE(S): M86.172 - Other acute osteomyelitis, left ankle and foot (3) Abscess of bursa, left ankle and foot: CODE(S): M71.072 - Abscess of bursa, left ankle and foot (4) Cellulitis of left lower limb: CODE(S): L03.116 - Cellulitis of left lower limb (5) Charcot foot due to diabetes mellitus: CODE(S): E11.610 - 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 arthropathy (6) Non-pressure chronic ulcer of left 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: CODE(S): L97.322 - Non-pressure chronic ulcer of left 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 (7) Other acute postprocedural pain: CODE(S): G89.18 - Other acute postprocedural pain (8) Type 2 diabetes mellitus with diabetic polyneuropathy: CODE(S): E11.42 - Type 2 diabetes mellitus with diabetic polyneuropathy QUALIFIERS: Diabetes mellitus nursing home insulin use: without salvage determiner use Qualified Code(s): E11.42 - Type 2 diabetes mellitus with diabetic polyneuropathy (9) Non-pressure chronic ulcer of other part of left foot with necrosis of muscle: CODE(S): L97.523 - Non-pressure chronic ulcer of other part of left foot with necrosis of muscle (10) Gas gangrene of foot: CODE(S): A48.0 - Gas gangrene (11) Diabetic infection of left foot: CODE(S): E11.628 - Type 2 diabetes mellitus with other skin complications;L08.9 - Local infection of the skin and subcutaneous tissue, unspecified (12) Non-pressure chronic ulcer of other part of left foot with necrosis of bone: CODE(S): L97.524 - Non-pressure chronic ulcer of other part of left foot with necrosis of bone (13) Cellulitis: CODE(S): L03.90 - Cellulitis, unspecified QUALIFIERS: Site of cellulitis: extremity Site of cellulitis of extremity: lower extremity Laterality: left Qualified Code(s): L03.116 - Cellulitis of left lower limb (14) Hypertension: CODE(S): I10 - Essential (primary) hypertension QUALIFIERS: Hypertension type: primary hypertension Qualified Code(s): I10 - Essential (primary) hypertension PLAN: Plan The patient appears to be tolerating hyperbaric oxygen therapy well, which will be continued as per their medical treatment plan. 10/06/23 1518 <Electronically signed by Saba Park NP PHYSICAL GEOGRAPHER-C> Cosigner Signature (if applicable): CC: ~ Signed [facility] Work Phone: [phone]) 785-867602-28-2024 Progress note Author Saba Park [facility] October 05, 2023 3:13pm Note Date/Time October 05, 2023 1:06pm [facility] [address] [place] [address] Progress Note - Wound Care HBO 10/05/23 1305 MR#: [id number] Acct: [id number] Name: ERIBERTOSNEHA FRAGOSO Rep #:[id number] : 1980 43 From: Saba sanabria NP PHYSICAL GEOGRAPHER-C PCP: Dr. Liliane Epps, DO Status:REG RCR Location: History of Present Illness Date of Service: 10/05/23 Chief Complaint: Diabetic left foot infection with gas gangrene and osteomyelitis; Li grade 3 diabetic foot infection. History of Wound: 43-year-old male status post left Charcot reconstruction. Denies constitutional symptoms. Notes increased drainage to the medial and lateral left ankle. Per nursing dressing change. No other complaints today. Progress of Wound: Serial monitoring of the patient's wound is underway by Dr. Perkins, podiatric specialist. Subjective Subjective The patient underwent his 13th hyperbaric oxygen therapy session today. The patient is scheduled for a total of 30 such sessions. Tolerance of hyperbaric oxygen therapy: Hyperbaric oxygen therapy was provided as per the facility's protocol. Hyperbaric oxygen therapy was undertaken at 2 krzysztof and 100% oxygen for 90 minutes without air breaks. The patient tolerated hyperbaric oxygen therapy well, without complaints or complications. Upon emergence from the hyperbaric chamber, the patient's vital signs remained stable. Blood sugar levels were monitored both before and after hyperbaric oxygen therapy, and found to be satisfactory. Objective Data Objective Data Vital Signs: Vital Signs Temp Pulse Resp BP O2 Flow Rate 97.6 F L 85 18 127/80 H 99 10/04/23 14:36 10/04/23 14:36 10/04/23 14:36 10/04/23 14:36 09/08/23 00:33 Oxygen Flow Rate (L/min) 99 Weight: 250 lb Body Mass Index (BMI) 33.9 Lab / Micro Data Labs: Laboratory Results - last 24 hr 10/04/23 14:14: POC Glucose 128 H 10/05/23 12:41: POC Glucose 136 H Micro: Microbiology 10/04/23 11:40 Wound - Ankle Gram Stain - Final Exam Physical Exam Const alert, oriented x3 and no apparent distress HEENT normocephalic Tympanic Membrane: TM's normal bilaterally Resp normal respiratory effort Effort and Inspection: able to speak in complete sentences Auscultation: clear to auscultation bilaterally Cardio regular rate and regular rhythm Psych mental status grossly normal, thought process normal, cooperative, affect normaland speech normal Nursing Assessment and Debridement Post-Debridement Measurements and Additional Note: Post-Debridement Measurements/Treatment - Nurse 1 - General Ulcer Assessment Start: 09/13/23 10:02 Freq: Status: Active Protocol: GWEN Activity Type Activity Date Activity User E-sign Co-sign Detail Recorded Client Recorded Date Recorded By Document 10/04/23 11:12 Desktop 10/04/23 11:15 RB 10/04/23 11:12 - Today's Visit Information Type of service Follow-up Visit (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 ) Arrival Mode Wheelchair Transfer Assistance None Patient Identification Verified (Name & Yes ) Patient Requires Transmission-Based No Precautions Height and Weight Body Mass Index (BMI) 33.9 BMI Classification Obese Vital Signs Temperature (97.8 F-99.1 F) 97 F L Temperature Source Temporal Pulse Rate (60-100) 93 Pulse Location Monitor Respiratory Rate (12-18) 18 Respiratory rate source Observation Blood Pressure (90/60-120/80) 137/73 H Blood Pressure Mean (mm Hg) 94 Source Monitor Position Semi-Fowlers Blood Pressure Location Left Arm History Since Last Visit- (Skip if this is Patient's initial visit) Have you changed medications since your No last visit? Any new allergies or adverse reactions No Had a fall/change in ADL's that may No increase risk of falls Signs or symptoms of abuse and/or No neglect since last visit Have you been in the hospital since your No last visit? Has dressing in place as prescribed Yes Has compression in place as prescribed Yes Has offloadiing in place as prescribed No Experienced any changes in pain level or No management Pain Scale: 0-10 Numeric Is Patient Pain Free? Yes WC - Nurse 1 - General Ulcer Measurement Start: 09/13/23 10:02 Freq: Status: Active Protocol: Activity Type Activity Date Activity User E-sign Co-sign Detail Recorded Client Recorded Date Recorded By Document 10/04/23 11:12 Desktop 10/04/23 11:15 10/04/23 11:12 Wound Center Nurse 1 7. L lateral ankle -Combined with other wound No -Current Size (cm) - Length 1.5 -Current Size (cm) - Width 0.8 -Current Size (cm) - Depth 2 -Total Square Cm 1.20 -Tunneling No -Undermining/Tunneling No -Circular Undermining No -Exudate Amt Large -Exudate Type Serosanguineous -Wound Margin Thickened & Rolled Under -Granulation Amt Large (67-100%) -Granulation Quality [employer],Red -Slough/Fibrin Yes -Necrosis Amt Small (1-33%) -Necrotic Tissue Type Adherent Slough -Structure Exposed N/A -Texture ([place]-wound Skin Appearance) Assessed, Scarring -Moisture ([place]-wound Skin Appearance) Assessed -Color ([place]-wound Skin Appearance) Assessed -Temperature ([place]-wound Skin No Abnormality Appearance) (Pt Warm) -Tenderness on Palpation ([place]-wound No Skin Appearance) -Ulcer Cleansing Wound Cleanser -Foul Odor after Cleansing No -Anesthetic Used 4% Lidocaine Solution 6. L medial ankle -Combined with other wound No -Current Size (cm) - Length 0.5 -Current Size (cm) - Width 0.5 -Current Size (cm) - Depth 2 -Total Square Cm 0.25 -Tunneling No -Undermining/Tunneling No -Circular Undermining No -Exudate Amt Large -Exudate Type Purulent -Wound Margin Distinct, Outline Attached -Granulation Amt Medium (34-66%) -Granulation Quality [employer] -Slough/Fibrin Yes -Necrosis Amt Medium (34-66%) -Necrotic Tissue Type Adherent Slough -Structure Exposed N/A -Texture ([place]-wound Skin Appearance) Assessed, Scarring -Moisture ([place]-wound Skin Appearance) Assessed -Color ([place]-wound Skin Appearance) Assessed -Temperature ([place]-wound Skin No Abnormality Appearance) (Pt Warm) -Tenderness on Palpation ([place]-wound No Skin Appearance) -Ulcer Cleansing Wound Cleanser -Foul Odor after Cleansing No -Anesthetic Used 4% Lidocaine Solution Lower Limb Edema Present Yes Left Calf (cm) 36 Left Ankle (cm) 24 - Nurse 2 - General Ulcer CM Notes Start: 09/13/23 10:02 Freq: Status: Active Protocol: Activity Type Activity Date Activity User E-sign Co-sign Detail Recorded Client Recorded Date Recorded By Document 10/04/23 11:39 Laptop 10/04/23 11:49 10/04/23 11:39 Wound Center Nurse 2 7. L lateral ankle -Time 11:47 -Correct Patient Yes -Correct Side, Site, Position Yes -Correct Procedure Yes -Procedure Performed Yes -Type of Procedure Debridement -Clinical Debridement Muscle / Fascia -Tissue Removed Muscle -Post Debridement (cm) - Length 1.6 -Post Debridement (cm) - Width 0.8 -Post Debridement (cm) - Depth 2.0 -Total Square (Post) (cm) 1.28 -Area of Debridement (cm) - Length 1.6 -Area of Debridement (cm) - Width 0.8 -Total Square (Area) (cm) 1.28 -Tunneling No -Undermining/Tunneling No -Circular Undermining No -Wound/Ulcer Outcome Not Healed -Ulcer Cleansing Rinsed/ Irrigated with Saline -Foul Odor after Cleansing No -Bioengineered Tissue No -Bleeding Controlled with Pressure -Treatment Response Procedure Tolerated Well -Offloading No -Debridement - Subq, 1st 20sq cm No -Debridement - Muscle / Fascia, 1st No 20sq cm 6. L medial ankle -Time 11:48 -Correct Patient Yes -Correct Side, Site, Position Yes -Correct Procedure Yes -Procedure Performed Yes -Type of Procedure Debridement -Clinical Debridement Muscle / Fascia -Tissue Removed Muscle -Post Debridement (cm) - Length 0.6 -Post Debridement (cm) - Width 0.6 -Post Debridement (cm) - Depth 2.0 -Total Square (Post) (cm) 0.36 -Area of Debridement (cm) - Length 0.6 -Area of Debridement (cm) - Width 0.6 -Total Square (Area) (cm) 0.36 -Tunneling No -Undermining/Tunneling No -Circular Undermining No -Wound/Ulcer Outcome Not Healed -Ulcer Cleansing Rinsed/ Irrigated with Saline -Foul Odor after Cleansing No -Bioengineered Tissue No -Bleeding Controlled with Pressure -Treatment Response Procedure Tolerated Well -Offloading No -Debridement - Muscle / Fascia, 1st Yes 20sq cm Pain Scale: 0-10 Numeric Is Patient Pain Free? Yes WC - Nurse 3 - General Ulcer D/C NN Start: 09/13/23 10:02 Freq: Status: Active Protocol: Activity Type Activity Date Activity User E-sign Co-sign Detail Recorded Client Recorded Date Recorded By Document 10/04/23 11:58 RB Desktop 10/04/23 12:00 RB 10/04/23 11:58 Wound Care Center Nurse 3 7. L lateral ankle -Ulcer Cleansing Wound Cleanser -Other Dressing daknins moistened gauze / abd -Primary Dressing Covered/Secured with Dry Gauze,Dry Gauze & Roll Gauze,Secured with Tape 6. L medial ankle -Other Dressing dakins mistened gauze/ abd -Primary Dressing Covered/Secured with Dry Gauze,Dry Gauze & Roll Gauze,Secured with Tape Right -Tubular Bandage Single Layer -Size of Tubigrip Used Size F -Size F ($) 1 Left -Tubular Bandage Single Layer -Size of Tubigrip Used Size F -Size F ($) 1 Treatment Response Procedure Tolerated Well Pain Scale: 0-10 Numeric Is Patient Pain Free? Yes Teaching: Wound Center Compression Wraps & Stockings -Person Taught Patient -Teaching Method Discussion, Demonstration -Response to teaching Verbalize understanding WC - Visit Discharge Discharge Condition Stable Ambulatory Status Wheelchair Medication Reconcilliation completed & No provided to patient/care provider Clinical Summary of Care Provided Yes Notes: Marely Cline lpn, Priti Feltons Rn assisted with dressing application Assessment/Plan Assessment/Plan (1) Osteomyelitis of ankle or foot, left, acute: CODE(S): M86.172 - Other acute osteomyelitis, left ankle and foot (2) Osteomyelitis of ankle, left, acute: CODE(S): M86.172 - Other acute osteomyelitis, left ankle and foot (3) Abscess of bursa, left ankle and foot: CODE(S): M71.072 - Abscess of bursa, left ankle and foot (4) Cellulitis of left lower limb: CODE(S): L03.116 - Cellulitis of left lower limb (5) Charcot foot due to diabetes mellitus: CODE(S): E11.610 - 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 arthropathy (6) Non-pressure chronic ulcer of left 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: CODE(S): L97.322 - Non-pressure chronic ulcer of left 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 (7) Other acute postprocedural pain: CODE(S): G89.18 - Other acute postprocedural pain (8) Type 2 diabetes mellitus with diabetic polyneuropathy: CODE(S): E11.42 - Type 2 diabetes mellitus with diabetic polyneuropathy QUALIFIERS: Diabetes mellitus nursing home insulin use: without salvage determiner use Qualified Code(s): E11.42 - Type 2 diabetes mellitus with diabetic polyneuropathy (9) Non-pressure chronic ulcer of other part of left foot with necrosis of muscle: CODE(S): L97.523 - Non-pressure chronic ulcer of other part of left foot with necrosis of muscle (10) Gas gangrene of foot: CODE(S): A48.0 - Gas gangrene (11) Diabetic infection of left foot: CODE(S): E11.628 - Type 2 diabetes mellitus with other skin complications;L08.9 - Local infection of the skin and subcutaneous tissue, unspecified (12) Non-pressure chronic ulcer of other part of left foot with necrosis of bone: CODE(S): L97.524 - Non-pressure chronic ulcer of other part of left foot with necrosis of bone (13) Cellulitis: CODE(S): L03.90 - Cellulitis, unspecified QUALIFIERS: Site of cellulitis: extremity Site of cellulitis of extremity: lower extremity Laterality: left Qualified Code(s): L03.116 - Cellulitis of left lower limb (14) Hypertension: CODE(S): I10 - Essential (primary) hypertension QUALIFIERS: Hypertension type: primary hypertension Qualified Code(s): I10 - Essential (primary) hypertension PLAN: Plan The patient appears to be tolerating hyperbaric oxygen therapy well, which will be continued as per their medical treatment plan. 10/05/23 1513 <Electronically signed by Saba Park NP, NP-C> Cosigner Signature (if applicable): CC: ~ Signed [facility] Work Phone: [phone] Progress note Author Saba Park [facility] October 04, 2023 2:52pm Note Date/Time October 04, 2023 1:47pm [facility] [address] [place] [id number] Progress Note - Wound Care HBO 10/04/23 1346 MR#: [id number] Acct: [id number] Name: SNEHA WEI Rep #:[id number] : 1980 43 From: Saba sanabria NP PHYSICAL GEOGRAPHER-C PCP: Dr. Liliane Epps, DO [facility] Location: History of Present Illness Date of Service: 10/04/23 Chief Complaint: Diabetic left foot infection with gas gangrene and osteomyelitis; Li grade 3 diabetic foot infection. History of Wound: 43-year-old male status post left Charcot reconstruction. Denies constitutional symptoms. Notes increased drainage to the medial and lateral left ankle. Per nursing dressing change. No other complaints today. Progress of Wound: Serial monitoring of the patient's wound is underway by Dr. Perkins, podiatric specialist. Subjective Subjective The patient underwent his 12th hyperbaric oxygen therapy session today. The patient is scheduled for a total of 30 such sessions. Tolerance of hyperbaric oxygen therapy: Hyperbaric oxygen therapy was provided as per the facility's protocol. Hyperbaric oxygen therapy was undertaken at 2 krzysztof and 100% oxygen for 90 minutes without air breaks. The patient tolerated hyperbaric oxygen therapy well, without complaints or complications. Upon emergence from the hyperbaric chamber, the patient's vital signs remained stable. Blood sugar levels were monitored both before and after hyperbaric oxygen therapy, and found to be satisfactory. Objective Data Objective Data Vital Signs: Vital Signs Temp Pulse Resp BP O2 Flow Rate 97 F L 93 18 137/73 H 99 10/04/23 11:12 10/04/23 11:12 10/04/23 11:12 10/04/23 11:12 09/08/23 00:33 Oxygen Flow Rate (L/min) 99 Weight: 250 lb Body Mass Index (BMI) 33.9 Lab / Micro Data Labs: Laboratory Results - last 24 hr 10/04/23 11:58: POC Glucose 136 H Exam Physical Exam Const alert, oriented x3 and no apparent distress HEENT normocephalic Tympanic Membrane: TM's normal bilaterally Resp normal respiratory effort Effort and Inspection: able to speak in complete sentences Auscultation: clear to auscultation bilaterally Cardio regular rate and regular rhythm Psych mental status grossly normal, thought process normal, cooperative, affect normaland speech normal Nursing Assessment and Debridement Post-Debridement Measurements and Additional Note: Post-Debridement Measurements/Treatment - Nurse 1 - General Ulcer Assessment Start: 09/13/23 10:02 Freq: Status: Active Protocol: WC.LOWEXT Activity Type Activity Date Activity User E-sign Co-sign Detail Recorded Client Recorded Date Recorded By Document 10/04/23 11:12 Desktop 10/04/23 11:15 10/04/23 11:12 - Today's Visit Information Type of service Follow-up Visit (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 ) Arrival Mode Wheelchair Transfer Assistance None Patient Identification Verified (Name & Yes ) Patient Requires Transmission-Based No Precautions Height and Weight Body Mass Index (BMI) 33.9 BMI Classification Obese Vital Signs Temperature (97.8 F-99.1 F) 97 F L Temperature Source Temporal Pulse Rate (60-100) 93 Pulse Location Monitor Respiratory Rate (12-18) 18 Respiratory rate source Observation Blood Pressure (90/60-120/80) 137/73 H Blood Pressure Mean (mm Hg) 94 Source Monitor Position Semi-Fowlers Blood Pressure Location Left Arm History Since Last Visit- (Skip if this is Patient's initial visit) Have you changed medications since your No last visit? Any new allergies or adverse reactions No Had a fall/change in ADL's that may No increase risk of falls Signs or symptoms of abuse and/or No neglect since last visit Have you been in the hospital since your No last visit? Has dressing in place as prescribed Yes Has compression in place as prescribed Yes Has offloadiing in place as prescribed No Experienced any changes in pain level or No management Pain Scale: 0-10 Numeric Is Patient Pain Free? Yes WC - Nurse 1 - General Ulcer Measurement Start: 09/13/23 10:02 Freq: Status: Active Protocol: Activity Type Activity Date Activity User E-sign Co-sign Detail Recorded Client Recorded Date Recorded By Document 10/04/23 11:12 RB Desktop 10/04/23 11:15 RB 10/04/23 11:12 Wound Center Nurse 1 7. L lateral ankle -Combined with other wound No -Current Size (cm) - Length 1.5 -Current Size (cm) - Width 0.8 -Current Size (cm) - Depth 2 -Total Square Cm 1.20 -Tunneling No -Undermining/Tunneling No -Circular Undermining No -Exudate Amt Large -Exudate Type Serosanguineous -Wound Margin Thickened & Rolled Under -Granulation Amt Large (67-100%) -Granulation Quality [employer],Red -Slough/Fibrin Yes -Necrosis Amt Small (1-33%) -Necrotic Tissue Type Adherent Slough -Structure Exposed N/A -Texture ([place]-wound Skin Appearance) Assessed, Scarring -Moisture ([place]-wound Skin Appearance) Assessed -Color ([place]-wound Skin Appearance) Assessed -Temperature ([place]-wound Skin No Abnormality Appearance) (Pt Warm) -Tenderness on Palpation ([place]-wound No Skin Appearance) -Ulcer Cleansing Wound Cleanser -Foul Odor after Cleansing No -Anesthetic Used 4% Lidocaine Solution 6. L medial ankle -Combined with other wound No -Current Size (cm) - Length 0.5 -Current Size (cm) - Width 0.5 -Current Size (cm) - Depth 2 -Total Square Cm 0.25 -Tunneling No -Undermining/Tunneling No -Circular Undermining No -Exudate Amt Large -Exudate Type Purulent -Wound Margin Distinct, Outline Attached -Granulation Amt Medium (34-66%) -Granulation Quality [employer] -Slough/Fibrin Yes -Necrosis Amt Medium (34-66%) -Necrotic Tissue Type Adherent Slough -Structure Exposed N/A -Texture ([place]-wound Skin Appearance) Assessed, Scarring -Moisture ([place]-wound Skin Appearance) Assessed -Color ([place]-wound Skin Appearance) Assessed -Temperature ([place]-wound Skin No Abnormality Appearance) (Pt Warm) -Tenderness on Palpation ([place]-wound No Skin Appearance) -Ulcer Cleansing Wound Cleanser -Foul Odor after Cleansing No -Anesthetic Used 4% Lidocaine Solution Lower Limb Edema Present Yes Left Calf (cm) 36 Left Ankle (cm) 24 WC - Nurse 2 - General Ulcer CM Notes Start: 09/13/23 10:02 Freq: Status: Active Protocol: Activity Type Activity Date Activity User E-sign Co-sign Detail Recorded Client Recorded Date Recorded By Document 10/04/23 11:39 Laptop 10/04/23 11:49 10/04/23 11:39 Wound Center Nurse 2 7. L lateral ankle -Time 11:47 -Correct Patient Yes -Correct Side, Site, Position Yes -Correct Procedure Yes -Procedure Performed Yes -Type of Procedure Debridement -Clinical Debridement Muscle / Fascia -Tissue Removed Muscle -Post Debridement (cm) - Length 1.6 -Post Debridement (cm) - Width 0.8 -Post Debridement (cm) - Depth 2.0 -Total Square (Post) (cm) 1.28 -Area of Debridement (cm) - Length 1.6 -Area of Debridement (cm) - Width 0.8 -Total Square (Area) (cm) 1.28 -Tunneling No -Undermining/Tunneling No -Circular Undermining No -Wound/Ulcer Outcome Not Healed -Ulcer Cleansing Rinsed/ Irrigated with Saline -Foul Odor after Cleansing No -Bioengineered Tissue No -Bleeding Controlled with Pressure -Treatment Response Procedure Tolerated Well -Offloading No -Debridement - Subq, 1st 20sq cm No -Debridement - Muscle / Fascia, 1st No 20sq cm 6. L medial ankle -Time 11:48 -Correct Patient Yes -Correct Side, Site, Position Yes -Correct Procedure Yes -Procedure Performed Yes -Type of Procedure Debridement -Clinical Debridement Muscle / Fascia -Tissue Removed Muscle -Post Debridement (cm) - Length 0.6 -Post Debridement (cm) - Width 0.6 -Post Debridement (cm) - Depth 2.0 -Total Square (Post) (cm) 0.36 -Area of Debridement (cm) - Length 0.6 -Area of Debridement (cm) - Width 0.6 -Total Square (Area) (cm) 0.36 -Tunneling No -Undermining/Tunneling No -Circular Undermining No -Wound/Ulcer Outcome Not Healed -Ulcer Cleansing Rinsed/ Irrigated with Saline -Foul Odor after Cleansing No -Bioengineered Tissue No -Bleeding Controlled with Pressure -Treatment Response Procedure Tolerated Well -Offloading No -Debridement - Muscle / Fascia, 1st Yes 20sq cm Pain Scale: 0-10 Numeric Is Patient Pain Free? Yes - Nurse 3 - General Ulcer D/C NN Start: 09/13/23 10:02 Freq: Status: Active Protocol: Activity Type Activity Date Activity User E-sign Co-sign Detail Recorded Client Recorded Date Recorded By Document 10/04/23 11:58 Desktop 10/04/23 12:00 RB 10/04/23 11:58 Wound Care Center Nurse 3 7. L lateral ankle -Ulcer Cleansing Wound Cleanser -Other Dressing daknins moistened gauze / abd -Primary Dressing Covered/Secured with Dry Gauze,Dry Gauze & Roll Gauze,Secured with Tape 6. L medial ankle -Other Dressing dakins mistened gauze/ abd -Primary Dressing Covered/Secured with Dry Gauze,Dry Gauze & Roll Gauze,Secured with Tape Right -Tubular Bandage Single Layer -Size of Tubigrip Used Size F -Size F ($) 1 Left -Tubular Bandage Single Layer -Size of Tubigrip Used Size F -Size F ($) 1 Treatment Response Procedure Tolerated Well Pain Scale: 0-10 Numeric Is Patient Pain Free? Yes Teaching: Wound Center Compression Wraps & Stockings -Person Taught Patient -Teaching Method Discussion, Demonstration -Response to teaching Verbalize understanding WC - Visit Discharge Discharge Condition Stable Ambulatory Status Wheelchair Medication Reconcilliation completed & No provided to patient/care provider Clinical Summary of Care Provided Yes Notes: Marely Cline lpn, Priti Feltons Rn assisted with dressing application Assessment/Plan Assessment/Plan (1) Osteomyelitis of ankle or foot, left, acute: CODE(S): M86.172 - Other acute osteomyelitis, left ankle and foot (2) Osteomyelitis of ankle, left, acute: CODE(S): M86.172 - Other acute osteomyelitis, left ankle and foot (3) Abscess of bursa, left ankle and foot: CODE(S): M71.072 - Abscess of bursa, left ankle and foot (4) Cellulitis of left lower limb: CODE(S): L03.116 - Cellulitis of left lower limb (5) Charcot foot due to diabetes mellitus: CODE(S): E11.610 - 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 arthropathy (6) Non-pressure chronic ulcer of left 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: CODE(S): L97.322 - Non-pressure chronic ulcer of left 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 (7) Other acute postprocedural pain: CODE(S): G89.18 - Other acute postprocedural pain (8) Type 2 diabetes mellitus with diabetic polyneuropathy: CODE(S): E11.42 - Type 2 diabetes mellitus with diabetic polyneuropathy QUALIFIERS: Diabetes mellitus nursing home insulin use: without nursing home use Qualified Code(s): E11.42 - Type 2 diabetes mellitus with diabetic polyneuropathy (9) Non-pressure chronic ulcer of other part of left foot with necrosis of muscle: CODE(S): L97.523 - Non-pressure chronic ulcer of other part of left foot with necrosis of muscle (10) Gas gangrene of foot: CODE(S): A48.0 - Gas gangrene (11) Diabetic infection of left foot: CODE(S): E11.628 - Type 2 diabetes mellitus with other skin complications;L08.9 - Local infection of the skin and subcutaneous tissue, unspecified (12) Non-pressure chronic ulcer of other part of left foot with necrosis of bone: CODE(S): L97.524 - Non-pressure chronic ulcer of other part of left foot with necrosis of bone (13) Cellulitis: CODE(S): L03.90 - Cellulitis, unspecified QUALIFIERS: Site of cellulitis: extremity Site of cellulitis of extremity: lower extremity Laterality: left Qualified Code(s): L03.116 - Cellulitis of left lower limb (14) Hypertension: CODE(S): I10 - Essential (primary) hypertension QUALIFIERS: Hypertension type: primary hypertension Qualified Code(s): I10 - Essential (primary) hypertension PLAN: Plan The patient appears to be tolerating hyperbaric oxygen therapy well, which will be continued as per their medical treatment plan. 10/04/23 1452 <Electronically signed by Saba Park NP PHYSICAL GEOGRAPHER-C> Cosigner Signature (if applicable): CC: ~ Signed [facility] Work Phone: [phone]) 144-899702-27-2024 Progress note Author Jordi Perkins [facility] October 04, 2023 11:58am Note Date/Time October 04, 2023 11:58am [facility] [address] [place] [address] Progress Note - Wound Care 10/04/23 1155 MR#: [id number] Acct: [id number] Name: SNEHA WEI JrGiovanny Rep #:[id number] : 1980 43 From: Jordi Perkins DPM PCP: Dr. Liliane Epps, DO Status:REG RCR Location: History of Present Illness Date of Service: 10/04/23 Chief Complaint: Diabetic left foot infection with gas gangrene and osteomyelitis; [place] grade 3 diabetic foot infection. History of Wound: 43-year-old male status post left Charcot reconstruction. Denies constitutional symptoms. Notes increased drainage to the medial and lateral left ankle. Per nursing dressing change. No other complaints today. Objective Data Objective Data Vital Signs: Vital Signs Temp Pulse Resp BP O2 Flow Rate 97 F L 93 18 137/73 H 99 10/04/23 11:12 10/04/23 11:12 10/04/23 11:12 10/04/23 11:12 09/08/23 00:33 Oxygen Flow Rate (L/min) 99 Weight: 113.398 kg Body Mass Index (BMI) 33.9 Physical Exam Narrative Neurovascular status unchanged Full-thickness wounds to medial ankle, 3 cc purulence drained from the site today. Lateral ankle wound down to the level of bone noted with intact vessel loop closure allowing for partial wound closure, additional 3 cc purulence drained from the site. Pre and postdebridement measurements documented in notesnursing notes. This was debrided down to level of muscle today. No residual abscess noted. Resolved acute signs of infection. No signs of DVT. Const alert and oriented x3 Debridement Note Debridement Note Post-Debridement Measurements and Additional Note: Post-Debridement Measurements/Treatment - Nurse 1 - General Ulcer Assessment Start: 09/13/23 10:02 Freq: Status: Active Protocol: MARY.BLAKE Activity Type Activity Date Activity User E-sign Co-sign Detail Recorded Client Recorded Date Recorded By Document 09/13/23 10:02 RB Desktop 09/13/23 10:21 RB Document 09/20/23 09:55 RB Desktop 09/20/23 09:58 RB Document 09/27/23 10:00 RB Desktop 09/27/23 10:03 RB Document 10/04/23 11:12 RB Desktop 10/04/23 11:15 RB 09/13/23 09/20/23 09/27/23 10:02 09:55 10:00 - Today's Visit Information Type of service Follow-up Visit Follow-up Visit Follow-up Visit (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 (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 (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 ) ) ) Arrival Mode Ambulatory Ambulatory Wheelchair Transfer Assistance None None None Patient Identification Verified (Name & Yes Yes Yes ) Patient Requires Transmission-Based No No No Precautions Finger Stick Blood Sugar(mg/dl) (if 100 indicated): Blood Sugar Stated by Patient Height and Weight Body Mass Index (BMI) 33.9 33.9 33.9 BMI Classification Obese Obese Obese Vital Signs Temperature (97.8 F-99.1 F) 96 F L 97 F L 96.7 F L Temperature Source Temporal Temporal Temporal Pulse Rate (60-100) 93 88 94 Pulse Location Monitor Monitor Monitor Respiratory Rate (12-18) 18 18 18 Respiratory rate source Observation Observation Observation Blood Pressure (90/60-120/80) 122/68 H 135/71 H 140/79 H Blood Pressure Mean (mm Hg) 86 92 99 Source Monitor Monitor Monitor Position Semi-Fowlers Semi-Fowlers Semi-Fowlers Blood Pressure Location Left Arm Left Arm Left Arm History Since Last Visit- (Skip if this is Patient's initial visit) Have you changed medications since your No No No last visit? Any new allergies or adverse reactions No No No Had a fall/change in ADL's that may No No No increase risk of falls Signs or symptoms of abuse and/or No No No neglect since last visit Have you been in the hospital since your No No No last visit? Has dressing in place as prescribed Yes Yes Yes Has compression in place as prescribed Yes Yes Yes Has offloadiing in place as prescribed Yes No No Experienced any changes in pain level or No No No management Pain Scale: 0-10 Numeric Is Patient Pain Free? Yes Yes Yes 10/04/23 11:12 - Today's Visit Information Type of service Follow-up Visit (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 ) Arrival Mode Wheelchair Transfer Assistance None Patient Identification Verified (Name & Yes ) Patient Requires Transmission-Based No Precautions Finger Stick Blood Sugar(mg/dl) (if indicated): Blood Sugar Height and Weight Body Mass Index (BMI) 33.9 BMI Classification Obese Vital Signs Temperature (97.8 F-99.1 F) 97 F L Temperature Source Temporal Pulse Rate (60-100) 93 Pulse Location Monitor Respiratory Rate (12-18) 18 Respiratory rate source Observation Blood Pressure (90/60-120/80) 137/73 H Blood Pressure Mean (mm Hg) 94 Source Monitor Position Semi-Fowlers Blood Pressure Location Left Arm History Since Last Visit- (Skip if this is Patient's initial visit) Have you changed medications since your No last visit? Any new allergies or adverse reactions No Had a fall/change in ADL's that may No increase risk of falls Signs or symptoms of abuse and/or No neglect since last visit Have you been in the hospital since your No last visit? Has dressing in place as prescribed Yes Has compression in place as prescribed Yes Has offloadiing in place as prescribed No Experienced any changes in pain level or No management Pain Scale: 0-10 Numeric Is Patient Pain Free? Yes - Nurse 1 - General Ulcer Measurement Start: 09/13/23 10:02 Freq: Status: Active Protocol: Activity Type Activity Date Activity User E-sign Co-sign Detail Recorded Client Recorded Date Recorded By Document 09/13/23 10:02 RB Desktop 09/13/23 10:21 RB Document 09/20/23 09:55 RB Desktop 09/20/23 09:58 RB Document 09/27/23 10:00 RB Desktop 09/27/23 10:03 RB Document 10/04/23 11:12 RB Desktop 10/04/23 11:15 RB Edit Result 10/04/23 11:12 RB (1) Desktop 10/04/23 11:15 RB (1) Lower Limb Edema Present => Yes Left Calf (cm) => 36 Left Ankle (cm) => 24 09/13/23 09/20/23 09/27/23 10:02 09:55 10:00 Wound Center Nurse 1 7. L lateral ankle -Combined with other wound No No No -Current Size (cm) - Length 3 4.2 2.2 -Current Size (cm) - Width 1 1 1 -Current Size (cm) - Depth 2.5 3 2 -Total Square Cm 3 4.2 2.2 -Photo Taken Yes -Tunneling No No No -Undermining/Tunneling No No Yes -Undermining/Tunneling Starts (O'clock 6 ) -Undermining/Tunneling Ends (O'clock) 10 -Maximum Distance (cm) 2.5 -Circular Undermining No No No -Exudate Amt Medium Large Large -Exudate Type Serosanguineous Serosanguineous Serosanguineous -Wound Margin Distinct, Distinct, Thickened & Outline Outline Rolled Under Attached Attached -Granulation Amt Medium (34-66%) Medium (34-66%) Medium (34-66%) -Granulation Quality [employer] -Slough/Fibrin Yes Yes Yes -Necrosis Amt Medium (34-66%) Medium (34-66%) Medium (34-66%) -Necrotic Tissue Type Adherent Slough Adherent Slough Adherent Slough -Structure Exposed N/A N/A N/A -Texture ([place]-wound Skin Appearance) Assessed Assessed, Scarring Scarring -Moisture ([place]-wound Skin Appearance) Assessed Assessed Assessed -Color ([place]-wound Skin Appearance) Assessed Assessed Assessed -Temperature ([place]-wound Skin No Abnormality No Abnormality No Abnormality Appearance) (Pt Warm) (Pt Warm) (Pt Warm) -Tenderness on Palpation ([place]-wound No No No Skin Appearance) -Ulcer Cleansing Wound Cleanser Wound Cleanser Wound Cleanser -Foul Odor after Cleansing No Yes No -Anesthetic Used 4% Lidocaine 4% Lidocaine Solution Solution 6. L medial ankle -Combined with other wound No No No -Current Size (cm) - Length 0.1 1.4 1 -Current Size (cm) - Width 0.1 0.5 0.2 -Current Size (cm) - Depth 0.1 0.5 0.2 -Total Square Cm 0.01 0.70 0.2 -Photo Taken Yes -Tunneling No No No -Undermining/Tunneling No No No -Circular Undermining No No No -Exudate Amt Medium Medium Medium -Exudate Type Serosanguineous Serosanguineous Serosanguineous -Wound Margin Distinct, Distinct, Thickened & Outline Outline Rolled Under Attached Attached -Granulation Amt Medium (34-66%) Medium (34-66%) Medium (34-66%) -Granulation Quality [employer] -Slough/Fibrin Yes Yes Yes -Necrosis Amt Medium (34-66%) Medium (34-66%) Medium (34-66%) -Necrotic Tissue Type Adherent Slough Adherent Slough Adherent Slough -Structure Exposed N/A N/A N/A -Texture ([place]-wound Skin Appearance) Assessed Assessed, Assessed, Scarring Scarring -Moisture ([place]-wound Skin Appearance) Assessed Assessed Assessed -Color ([place]-wound Skin Appearance) Assessed Assessed Assessed -Temperature ([place]-wound Skin No Abnormality No Abnormality No Abnormality Appearance) (Pt Warm) (Pt Warm) (Pt Warm) -Tenderness on Palpation ([place]-wound No No No Skin Appearance) -Ulcer Cleansing Wound Cleanser Wound Cleanser Wound Cleanser -Foul Odor after Cleansing No No No -Anesthetic Used 4% Lidocaine 4% Lidocaine Solution Solution Lower Limb Edema Present Yes Yes Yes Left Calf (cm) 34.5 34 35.5 Left Ankle (cm) 30 26 26 10/04/23 11:12 Wound Center Nurse 1 7. L lateral ankle -Combined with other wound No -Current Size (cm) - Length 1.5 -Current Size (cm) - Width 0.8 -Current Size (cm) - Depth 2 -Total Square Cm 1.20 -Photo Taken -Tunneling No -Undermining/Tunneling No -Undermining/Tunneling Starts (O'clock ) -Undermining/Tunneling Ends (O'clock) -Maximum Distance (cm) -Circular Undermining No -Exudate Amt Large -Exudate Type Serosanguineous -Wound Margin Thickened & Rolled Under -Granulation Amt Large (67-100%) -Granulation Quality [employer],Red -Slough/Fibrin Yes -Necrosis Amt Small (1-33%) -Necrotic Tissue Type Adherent Slough -Structure Exposed N/A -Texture ([place]-wound Skin Appearance) Assessed, Scarring -Moisture ([place]-wound Skin Appearance) Assessed -Color ([place]-wound Skin Appearance) Assessed -Temperature ([place]-wound Skin No Abnormality Appearance) (Pt Warm) -Tenderness on Palpation ([place]-wound No Skin Appearance) -Ulcer Cleansing Wound Cleanser -Foul Odor after Cleansing No -Anesthetic Used 4% Lidocaine Solution 6. L medial ankle -Combined with other wound No -Current Size (cm) - Length 0.5 -Current Size (cm) - Width 0.5 -Current Size (cm) - Depth 2 -Total Square Cm 0.25 -Photo Taken -Tunneling No -Undermining/Tunneling No -Circular Undermining No -Exudate Amt Large -Exudate Type Purulent -Wound Margin Distinct, Outline Attached -Granulation Amt Medium (34-66%) -Granulation Quality [employer] -Slough/Fibrin Yes -Necrosis Amt Medium (34-66%) -Necrotic Tissue Type Adherent Slough -Structure Exposed N/A -Texture ([place]-wound Skin Appearance) Assessed, Scarring -Moisture ([place]-wound Skin Appearance) Assessed -Color ([place]-wound Skin Appearance) Assessed -Temperature ([place]-wound Skin No Abnormality Appearance) (Pt Warm) -Tenderness on Palpation ([place]-wound No Skin Appearance) -Ulcer Cleansing Wound Cleanser -Foul Odor after Cleansing No -Anesthetic Used 4% Lidocaine Solution Lower Limb Edema Present Yes Left Calf (cm) 36 Left Ankle (cm) 24 WC - Nurse 2 - General Ulcer CM Notes Start: 09/13/23 10:02 Freq: Status: Active Protocol: Activity Type Activity Date Activity User E-sign Co-sign Detail Recorded Client Recorded Date Recorded By Document 09/13/23 11:23 [id number] 09/13/23 11:24 Document 09/20/23 10:17 Laptop 09/20/23 10:26 Edit Result 09/20/23 10:17 (1) [id number] 09/20/23 10:30 Document 09/27/23 10:10 Laptop 09/27/23 10:18 Document 10/04/23 11:39 Laptop 10/04/23 11:49 (1) 7. L lateral ankle - Clinical Debridement Subcutaneous => Muscle / Fascia - Tissue Removed Subcutaneous => Muscle,Fascia - Debridement - Muscle / Fascia, 1st => No 20sq cm 6. L medial ankle - Clinical Debridement Subcutaneous => Muscle / Fascia - Tissue Removed Subcutaneous => Muscle,Fascia - Debridement - Subq, 1st 20sq cm Yes => No - Debridement - Muscle / Fascia, 1st => Yes 20sq cm 09/13/23 09/20/23 09/27/23 11:23 10:17 10:10 Wound Center Nurse 2 7. L lateral ankle -Time 11:23 10:17 10:13 -Correct Patient Yes Yes Yes -Correct Side, Site, Position Yes Yes Yes -Correct Procedure Yes Yes Yes -Procedure Performed Yes Yes Yes -Type of Procedure Debridement Debridement Debridement -Clinical Debridement Muscle / Fascia Muscle / Fascia Muscle / Fascia -Tissue Removed Muscle Muscle,Fascia Muscle,Fascia -Post Debridement (cm) - Length 4.9 4.7 3.6 -Post Debridement (cm) - Width 1.0 1.2 1.2 -Post Debridement (cm) - Depth 3.6 3.1 2.3 -Total Square (Post) (cm) 4.90 5.64 4.32 -Area of Debridement (cm) - Length 4.9 4.7 3.6 -Area of Debridement (cm) - Width 1.0 1.2 1.2 -Total Square (Area) (cm) 4.90 5.64 4.32 -Tunneling No No No -Undermining/Tunneling No No No -Circular Undermining No No No -Wound/Ulcer Outcome Not Healed Not Healed Not Healed -Ulcer Cleansing Rinsed/ Rinsed/ Rinsed/ Irrigated with Irrigated with Irrigated with Saline Saline Saline -Foul Odor after Cleansing No No No -Bioengineered Tissue No No No -Bleeding Controlled with Pressure Pressure Pressure -Treatment Response Procedure Procedure Procedure Tolerated Well Tolerated Well Tolerated Well -Offloading No No No -Assistive Device(s) Wheelchair, Walker -Debridement - Subq, 1st 20sq cm No No -Debridement - Muscle / Fascia, 1st Yes No Yes 20sq cm 6. L medial ankle -Time 11:24 10:18 10:13 -Correct Patient Yes Yes No -Correct Side, Site, Position Yes Yes No -Correct Procedure Yes Yes No -Procedure Performed Yes Yes No -Type of Procedure Debridement Debridement -Clinical Debridement Muscle / Fascia Muscle / Fascia Muscle / Fascia -Tissue Removed Muscle Muscle,Fascia -Post Debridement (cm) - Length 2.0 1.7 0 -Post Debridement (cm) - Width 0.3 0.5 0 -Post Debridement (cm) - Depth 0.7 0.6 0 -Total Square (Post) (cm) 0.60 0.85 0 -Area of Debridement (cm) - Length 2.0 1.7 0 -Area of Debridement (cm) - Width 0.3 0.5 0 -Total Square (Area) (cm) 0.60 0.85 0 -Tunneling No No No -Undermining/Tunneling No No No -Circular Undermining No No No -Wound/Ulcer Outcome Not Healed Not Healed Healed- Epithelialized -Ulcer Cleansing Rinsed/ Rinsed/ Irrigated with Irrigated with Saline Saline -Foul Odor after Cleansing No No -Bioengineered Tissue No No -Bleeding Controlled with Pressure Pressure -Treatment Response Procedure Procedure Procedure Tolerated Well Tolerated Well Tolerated Well -Offloading No No No -Assistive Device(s) Wheelchair -Debridement - Subq, 1st 20sq cm No No -Debridement - Muscle / Fascia, 1st No Yes No 20sq cm Pain Scale: 0-10 Numeric Is Patient Pain Free? Yes Yes Yes 10/04/23 11:39 Wound Center Nurse 2 7. L lateral ankle -Time 11:47 -Correct Patient Yes -Correct Side, Site, Position Yes -Correct Procedure Yes -Procedure Performed Yes -Type of Procedure Debridement -Clinical Debridement Muscle / Fascia -Tissue Removed Muscle -Post Debridement (cm) - Length 1.6 -Post Debridement (cm) - Width 0.8 -Post Debridement (cm) - Depth 2.0 -Total Square (Post) (cm) 1.28 -Area of Debridement (cm) - Length 1.6 -Area of Debridement (cm) - Width 0.8 -Total Square (Area) (cm) 1.28 -Tunneling No -Undermining/Tunneling No -Circular Undermining No -Wound/Ulcer Outcome Not Healed -Ulcer Cleansing Rinsed/ Irrigated with Saline -Foul Odor after Cleansing No -Bioengineered Tissue No -Bleeding Controlled with Pressure -Treatment Response Procedure Tolerated Well -Offloading No -Assistive Device(s) -Debridement - Subq, 1st 20sq cm No -Debridement - Muscle / Fascia, 1st No 20sq cm 6. L medial ankle -Time 11:48 -Correct Patient Yes -Correct Side, Site, Position Yes -Correct Procedure Yes -Procedure Performed Yes -Type of Procedure Debridement -Clinical Debridement Muscle / Fascia -Tissue Removed Muscle -Post Debridement (cm) - Length 0.6 -Post Debridement (cm) - Width 0.6 -Post Debridement (cm) - Depth 2.0 -Total Square (Post) (cm) 0.36 -Area of Debridement (cm) - Length 0.6 -Area of Debridement (cm) - Width 0.6 -Total Square (Area) (cm) 0.36 -Tunneling No -Undermining/Tunneling No -Circular Undermining No -Wound/Ulcer Outcome Not Healed -Ulcer Cleansing Rinsed/ Irrigated with Saline -Foul Odor after Cleansing No -Bioengineered Tissue No -Bleeding Controlled with Pressure -Treatment Response Procedure Tolerated Well -Offloading No -Assistive Device(s) -Debridement - Subq, 1st 20sq cm -Debridement - Muscle / Fascia, 1st Yes 20sq cm Pain Scale: 0-10 Numeric Is Patient Pain Free? Yes WC - Nurse 3 - General Ulcer D/C NN Start: 09/13/23 10:02 Freq: Status: Active Protocol: Activity Type Activity Date Activity User E-sign Co-sign Detail Recorded Client Recorded Date Recorded By Document 09/13/23 11:25 [id number] 09/13/23 11:26 Document 09/20/23 10:30 RB Desktop 09/20/23 10:31 RB 09/13/23 09/20/23 11:25 10:30 Wound Care Center Nurse 3 7. L lateral ankle -Ulcer Cleansing Rinsed/ Irrigated with Saline -Foul Odor after Cleansing No -Other Dressing 0.25% dakin's dakins moistened gauze -Primary Dressing Covered/Secured with Dry Gauze Dry Gauze,Dry Gauze & Roll Gauze,Secured with Tape 6. L medial ankle -Ulcer Cleansing Rinsed/ Irrigated with Saline -Foul Odor after Cleansing No -Other Dressing 0.25 Dakin's dakins moistened gauze -Primary Dressing Covered/Secured with Dry Gauze Dry Gauze,Dry Gauze & Roll Gauze,Secured with Tape Left -Lotion applied to leg before Yes compression wrap -Multi-Layered Wrap Application Multi-Layer Comp - Left ($) -Tubular Bandage Double Layer -Size of Tubigrip Used Size E -Size E ($) 2 Treatment Response Procedure Tolerated Well Pain Scale: 0-10 Numeric Is Patient Pain Free? Yes Yes WC - Visit Discharge Discharge Condition Stable Stable Ambulatory Status Wheelchair Wheelchair Transportation Private Auto Private Auto Accompanied by father step father Medication Reconcilliation completed & Yes No provided to patient/care provider Clinical Summary of Care Provided Yes Yes Assessment/Plan Assessment/Plan (1) Osteomyelitis of ankle, left, acute: CODE(S): M86.172 - Other acute osteomyelitis, left ankle and foot PLAN: Exam performed Patient on IV meropenem via PICC line per infectious disease for enterococcal and pseudomonal infection left lower extremity with bone involvement New onset abscess to lateral and medial ankle. Atraumatic aseptic bedside I&D performed to medial lateral ankle. 3 cc. See purulence drained from the lateral ankle and medial ankle. Sites flushed with saline and swab cultured. Will await cultures. Patient is status post Charcot reconstruction. This is a limb salvage case - wound significantly improved Today left lower extremity wound to lateral ankle was debrided down to and including level of muscle excisionally using a 5 mm dermal curette without incident. No anesthesia due to neuropathy. Hemostasis obtained with light compression. Patient tolerated procedure well. Pre and postdebridement measurements documented nursing notes. Change to daily Dakin's packing with DSD and Tubigrip. Patient follows up weekly Patient nonweightbearing left lower extremity Patient receiving HBO therapy Blood sugar well-controlled Follow-up 1 week (2) Charcot foot due to diabetes mellitus: CODE(S): E11.610 - 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 arthropathy (3) Abscess of bursa, left ankle and foot: CODE(S): M71.072 - Abscess of bursa, left ankle and foot (4) Cellulitis of left lower limb: CODE(S): L03.116 - Cellulitis of left lower limb (5) Non-pressure chronic ulcer of left 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: CODE(S): L97.322 - Non-pressure chronic ulcer of left 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 (6) Type 2 diabetes mellitus with diabetic polyneuropathy: CODE(S): E11.42 - Type 2 diabetes mellitus with diabetic polyneuropathy QUALIFIERS: Diabetes mellitus nursing home insulin use: without salvage determiner use Qualified Code(s): E11.42 - Type 2 diabetes mellitus with diabetic polyneuropathy 10/04/23 1158 <Electronically signed by Jordi Perkins DPM> Cosigner Signature (if applicable): CC: ~ Signed [facility] Work Phone: [phone]) 408-419202-26-2024 Progress note Author Saba Park [facility] October 03, 2023 12:05pm Note Date/Time October 03, 2023 9:19am [facility] [address] [place] [address] Progress Note - Wound Care HBO 10/03/2318 MR#: [id number] Acct: [id number] Name: SNEHA WEI Jr. Rep #:[id number] : 1980 43 From: Saba sanabria NP PHYSICAL GEOGRAPHER-C PCP: Dr. Liliane Epps, DO Status:REG R Location: History of Present Illness Date of Service: 10/03/23 Chief Complaint: Diabetic left foot infection with gas gangrene and osteomyelitis; Li grade 3 diabetic foot infection. History of Wound: This is a 43-year-old male with a history of diabetic foot pathology and infections. On July 15, 2023, the patient underwent reconstruction of the left Charcot foot deformity by means of a left ankle arthrodesis, subtalar joint arthrodesis, midfoot osteotomy with percutaneous pinning, and application of the left lower extremity splint. He subsequently developed left foot and ankle abscess, with full-thickness wounds and osteomyelitis of the left ankle. On September 01, 2023, he underwent incision anddrainage of an abscess down to bone, and wound site debridement and wound bed preparation for delayed skin graft application. With respect to his osteomyelitis, the patient is receiving meropenem 3 times daily intravenously for Enterococcus and Pseudomonas infection by means of a PICC line which is located in his left upper arm. He is receiving home health care. Wound care isby means of packing with Dakin's moist to dry dressings, as his surgical wound is only partially closed. A multilayer compression wrap is being used to minimize swelling. The patient is nonweightbearing. 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 A thorough review of systems was undertaken. The patient has no history of pulmonary or otitic barotrauma. In fact, he has previously undergone hyperbaricoxygen therapy sessions in the past, approximately 10 years ago, for diabetic right foot infection. He tolerated hyperbaric oxygen therapy well at that time without incident. 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 His history is negative for seizures and seizure disorder. Pulmonary history is negative. Cardiac history is negative. The patient has no history of renal disease. He has no history of anemia or other hemopoietic abnormalities. There is no history of endocrine problems. He is not a smoker. Recent x-ray reveals moderate lung volumes. Increased AP dimension of the chest. Subsegmental atelectasis suggested in the left lung base. No definite inflammatory infiltrates. No effusions. Mild cardiac enlargement. Normal mediastinum and michelle. Normal visualized pulmonary arteries. Normal visualized aortic arch and descending thoracic aorta. An EKG reveals normal sinus rhythm and is interpreted as a normal EKG. Laboratory results have been reviewed, without any outstanding significant abnormalities. Progress of Wound: Serial monitoring of the patient's wound is underway by Dr. Perkins, podiatric specialist. Subjective Subjective The patient underwent his 11th hyperbaric oxygen therapy session today. The patient is scheduled for a total of 30 such sessions. Tolerance of hyperbaric oxygen therapy: Hyperbaric oxygen therapy was provided as per the facility's protocol. Hyperbaric oxygen therapy was undertaken at 2 krzysztof and 100% oxygen for 90 minutes without air breaks. The patient tolerated hyperbaric oxygen therapy well, without complaints or complications. Upon emergence from the hyperbaric chamber, the patient's vital signs remained stable. Blood sugar levels were monitored both before and after hyperbaric oxygen therapy, and found to be satisfactory. Objective Data Objective Data Vital Signs: Vital Signs Temp Pulse Resp BP O2 Flow Rate 97.4 F L 98 18 116/76 99 09/30/23 11:56 09/30/23 11:56 09/30/23 11:56 09/30/23 11:56 09/08/23 00:33 Oxygen Flow Rate (L/min) 99 Weight: 250 lb Body Mass Index (BMI) 33.9 Lab / Micro Data Labs: Laboratory Results - last 24 hr 10/03/23 08:47: POC Glucose 203 H Exam Physical Exam Const alert, oriented x3 and no apparent distress HEENT normocephalic Tympanic Membrane: TM's normal bilaterally Resp normal respiratory effort Effort and Inspection: able to speak in complete sentences Auscultation: clear to auscultation bilaterally Cardio regular rate and regular rhythm Psych mental status grossly normal, thought process normal, cooperative, affect normaland speech normal Assessment/Plan Assessment/Plan (1) Osteomyelitis of ankle or foot, left, acute: CODE(S): M86.172 - Other acute osteomyelitis, left ankle and foot (2) Osteomyelitis of ankle, left, acute: CODE(S): M86.172 - Other acute osteomyelitis, left ankle and foot (3) Abscess of bursa, left ankle and foot: CODE(S): M71.072 - Abscess of bursa, left ankle and foot (4) Cellulitis of left lower limb: CODE(S): L03.116 - Cellulitis of left lower limb (5) Charcot foot due to diabetes mellitus: CODE(S): E11.610 - 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 arthropathy (6) Non-pressure chronic ulcer of left 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: CODE(S): L97.322 - Non-pressure chronic ulcer of left 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 (7) Other acute postprocedural pain: CODE(S): G89.18 - Other acute postprocedural pain (8) Type 2 diabetes mellitus with diabetic polyneuropathy: CODE(S): E11.42 - Type 2 diabetes mellitus with diabetic polyneuropathy QUALIFIERS: Diabetes mellitus salvage determiner insulin use: without nursing home use Qualified Code(s): E11.42 - Type 2 diabetes mellitus with diabetic polyneuropathy (9) Non-pressure chronic ulcer of other part of left foot with necrosis of muscle: CODE(S): L97.523 - Non-pressure chronic ulcer of other part of left foot with necrosis of muscle (10) Gas gangrene of foot: CODE(S): A48.0 - Gas gangrene (11) Diabetic infection of left foot: CODE(S): E11.628 - Type 2 diabetes mellitus with other skin complications;L08.9 - Local infection of the skin and subcutaneous tissue, unspecified (12) Non-pressure chronic ulcer of other part of left foot with necrosis of bone: CODE(S): L97.524 - Non-pressure chronic ulcer of other part of left foot with necrosis of bone (13) Cellulitis: CODE(S): L03.90 - Cellulitis, unspecified QUALIFIERS: Site of cellulitis: extremity Site of cellulitis of extremity: lower extremity Laterality: left Qualified Code(s): L03.116 - Cellulitis of left lower limb (14) Hypertension: CODE(S): I10 - Essential (primary) hypertension QUALIFIERS: Hypertension type: primary hypertension Qualified Code(s): I10 - Essential (primary) hypertension PLAN: Plan The patient appears to be tolerating hyperbaric oxygen therapy well, which will be continued as per their medical treatment plan. 10/03/23 1205 <Electronically signed by Saba Park NP, NP-C> Cosigner Signature (if applicable): CC: ~ Signed [facility] Work Phone: [phone]) 174-517402-23-2024 Progress note Author Mercedes Mejia [facility] September 30, 2023 12:48pm Note Date/Time September 30, 2023 12:48pm [facility] [address] [place] [id number] Progress Note - Wound Care HBO 09/30/23 1247 MR#: [id number] Acct: [id number] Name: ERIBERTOSNEHA Jr. Rep #:[id number] : 1980 43 From: Mercedes Mejia DO PCP: Dr. Liliane Epps, DO [facility] Location: History of Present Illness Date of Service: 09/30/23 Chief Complaint: Diabetic left foot infection with gas gangrene and osteomyelitis; Li grade 3 diabetic foot infection. History of Wound: This is a 43-year-old male with a history of diabetic foot pathology and infections. On July 15, 2023, the patient underwent reconstruction of the left Charcot foot deformity by means of a left ankle arthrodesis, subtalar joint arthrodesis, midfoot osteotomy with percutaneous pinning, and application of the left lower extremity splint. He subsequently developed left foot and ankle abscess, with full-thickness wounds and osteomyelitis of the left ankle. On September 01, 2023, he underwent incision anddrainage of an abscess down to bone, and wound site debridement and wound bed preparation for delayed skin graft application. With respect to his osteomyelitis, the patient is receiving meropenem 3 times daily intravenously for Enterococcus and Pseudomonas infection by means of a PICC line which is located in his left upper arm. He is receiving home health care. Wound care isby means of packing with Dakin's moist to dry dressings, as his surgical wound is only partially closed. A multilayer compression wrap is being used to minimize swelling. The patient is nonweightbearing. 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 A thorough review of systems was undertaken. The patient has no history of pulmonary or otitic barotrauma. In fact, he has previously undergone hyperbaricoxygen therapy sessions in the past, approximately 10 years ago, for diabetic right foot infection. He tolerated hyperbaric oxygen therapy well at that time without incident. 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 His history is negative for seizures and seizure disorder. Pulmonary history is negative. Cardiac history is negative. The patient has no history of renal disease. He has no history of anemia or other hemopoietic abnormalities. There is no history of endocrine problems. He is not a smoker. Recent x-ray reveals moderate lung volumes. Increased AP dimension of the chest. Subsegmental atelectasis suggested in the left lung base. No definite inflammatory infiltrates. No effusions. Mild cardiac enlargement. Normal mediastinum and michelle. Normal visualized pulmonary arteries. Normal visualized aortic arch and descending thoracic aorta. An EKG reveals normal sinus rhythm and is interpreted as a normal EKG. Laboratory results have been reviewed, without any outstanding significant abnormalities. Progress of Wound: Serial monitoring of the patient's wound is underway by Dr. Perkins, podiatric specialist. Subjective Subjective The patient underwent his 10th hyperbaric oxygen therapy session today. The patient is scheduled for a total of 30 such sessions. Tolerance of hyperbaric oxygen therapy: Hyperbaric oxygen therapy was provided as per the facility's protocol. Hyperbaric oxygen therapy was undertaken at 2 krzysztof and 100% oxygen for 90 minutes without air breaks. The patient tolerated hyperbaric oxygen therapy well, without complaints or complications. Upon emergence from the hyperbaric chamber, the patient's vital signs remained stable. Blood sugar levels were monitored both before and after hyperbaric oxygen therapy, and found to be satisfactory. Objective Data Objective Data Vital Signs: Vital Signs Temp Pulse Resp BP O2 Flow Rate 97.4 F L 98 18 116/76 99 09/30/23 11:56 09/30/23 11:56 09/30/23 11:56 09/30/23 11:56 09/08/23 00:33 Oxygen Flow Rate (L/min) 99 Weight: 113.398 kg Body Mass Index (BMI) 33.9 Lab / Micro Data Labs: Laboratory Results - last 24 hr 09/29/23 14:40: POC Glucose 168 H 09/30/23 08:19: POC Glucose 150 H 09/30/23 10:20: POC Glucose 146 H Exam Physical Exam Const alert, oriented x3 and no apparent distress Psych mental status grossly normal, thought process normal, cooperative, affect normaland speech normal Assessment/Plan Assessment/Plan (1) Osteomyelitis of ankle or foot, left, acute: CODE(S): M86.172 - Other acute osteomyelitis, left ankle and foot (2) Osteomyelitis of ankle, left, acute: CODE(S): M86.172 - Other acute osteomyelitis, left ankle and foot (3) Abscess of bursa, left ankle and foot: CODE(S): M71.072 - Abscess of bursa, left ankle and foot (4) Cellulitis of left lower limb: CODE(S): L03.116 - Cellulitis of left lower limb (5) Charcot foot due to diabetes mellitus: CODE(S): E11.610 - 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 arthropathy (6) Non-pressure chronic ulcer of left 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: CODE(S): L97.322 - Non-pressure chronic ulcer of left 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 (7) Other acute postprocedural pain: CODE(S): G89.18 - Other acute postprocedural pain (8) Type 2 diabetes mellitus with diabetic polyneuropathy: CODE(S): E11.42 - Type 2 diabetes mellitus with diabetic polyneuropathy QUALIFIERS: Diabetes mellitus salvage determiner insulin use: without salvage determiner use Qualified Code(s): E11.42 - Type 2 diabetes mellitus with diabetic polyneuropathy (9) Non-pressure chronic ulcer of other part of left foot with necrosis of muscle: CODE(S): L97.523 - Non-pressure chronic ulcer of other part of left foot with necrosis of muscle (10) Gas gangrene of foot: CODE(S): A48.0 - Gas gangrene (11) Diabetic infection of left foot: CODE(S): E11.628 - Type 2 diabetes mellitus with other skin complications;L08.9 - Local infection of the skin and subcutaneous tissue, unspecified (12) Non-pressure chronic ulcer of other part of left foot with necrosis of bone: CODE(S): L97.524 - Non-pressure chronic ulcer of other part of left foot with necrosis of bone (13) Cellulitis: CODE(S): L03.90 - Cellulitis, unspecified QUALIFIERS: Site of cellulitis: extremity Site of cellulitis of extremity: lower extremity Laterality: left Qualified Code(s): L03.116 - Cellulitis of left lower limb (14) Hypertension: CODE(S): I10 - Essential (primary) hypertension QUALIFIERS: Hypertension type: primary hypertension Qualified Code(s): I10 - Essential (primary) hypertension PLAN: Plan The patient appears to be tolerating hyperbaric oxygen therapy well, which will be continued as per their medical treatment plan. 09/30/23 1248 <Electronically signed by Mercedes Mejia DO> Cosigner Signature (if applicable): CC: ~ Signed [facility] Work Phone: [phone]) 657-608202-22-2024 Progress note Author Saba Park [facility] September 29, 2023 3:06pm Note Date/Time September 29, 2023 1:05pm [facility] [address] [place] [id number] Progress Note - Wound Care HBO 09/29/23 1304 MR#: [id number] Acct: [id number] Name: SNEHA WEI Jr. Rep #:[id number] : 1980 43 From: Saba sanabria NP PHYSICAL GEOGRAPHER-C PCP: Dr. Liliane Epps, DO Status:REG RCR Location: History of Present Illness Date of Service: 09/29/23 Chief Complaint: Diabetic left foot infection with gas gangrene and osteomyelitis; Li grade 3 diabetic foot infection. History of Wound: This is a 43-year-old male with a history of diabetic foot pathology and infections. On July 15, 2023, the patient underwent reconstruction of the left Charcot foot deformity by means of a left ankle arthrodesis, subtalar joint arthrodesis, midfoot osteotomy with percutaneous pinning, and application of the left lower extremity splint. He subsequently developed left foot and ankle abscess, with full-thickness wounds and osteomyelitis of the left ankle. On September 01, 2023, he underwent incision anddrainage of an abscess down to bone, and wound site debridement and wound bed preparation for delayed skin graft application. With respect to his osteomyelitis, the patient is receiving meropenem 3 times daily intravenously for Enterococcus and Pseudomonas infection by means of a PICC line which is located in his left upper arm. He is receiving home health care. Wound care isby means of packing with Dakin's moist to dry dressings, as his surgical wound is only partially closed. A multilayer compression wrap is being used to minimize swelling. The patient is nonweightbearing. 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 A thorough review of systems was undertaken. The patient has no history of pulmonary or otitic barotrauma. In fact, he has previously undergone hyperbaricoxygen therapy sessions in the past, approximately 10 years ago, for diabetic right foot infection. He tolerated hyperbaric oxygen therapy well at that time without incident. 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 His history is negative for seizures and seizure disorder. Pulmonary history is negative. Cardiac history is negative. The patient has no history of renal disease. He has no history of anemia or other hemopoietic abnormalities. There is no history of endocrine problems. He is not a smoker. Recent x-ray reveals moderate lung volumes. Increased AP dimension of the chest. Subsegmental atelectasis suggested in the left lung base. No definite inflammatory infiltrates. No effusions. Mild cardiac enlargement. Normal mediastinum and michelle. Normal visualized pulmonary arteries. Normal visualized aortic arch and descending thoracic aorta. An EKG reveals normal sinus rhythm and is interpreted as a normal EKG. Laboratory results have been reviewed, without any outstanding significant abnormalities. Subjective Subjective The patient underwent his hyperbaric oxygen therapy session today. The patient is scheduled for a total of 30 such sessions. Tolerance of hyperbaric oxygen therapy: Hyperbaric oxygen therapy was provided as per the facility's protocol. Hyperbaric oxygen therapy was undertaken at 2 krzysztof and 100% oxygen for 90 minutes without air breaks. The patient tolerated hyperbaric oxygen therapy well, without complaints or complications. Upon emergence from the hyperbaric chamber, the patient's vital signs remained stable. Blood sugar levels were monitored both before and after hyperbaric oxygen therapy, and found to be satisfactory. Objective Data Objective Data Vital Signs: Vital Signs Temp Pulse Resp BP O2 Flow Rate 97.8 F 100 18 133/72 H 99 09/28/23 14:35 09/28/23 14:35 09/28/23 14:35 09/28/23 14:35 09/08/23 00:33 Oxygen Flow Rate (L/min) 99 Weight: 250 lb Body Mass Index (BMI) 33.9 Lab / Micro Data Labs: Laboratory Results - last 24 hr 09/28/23 14:12: POC Glucose 123 H 09/29/23 12:17: POC Glucose 154 H Exam Physical Exam Const alert General Appearance: cooperative HEENT normocephalic Chest inspection of chest normal Resp normal respiratory effort and normal air movement Effort and Inspection: able to speak in complete sentences; Negative for respiratory distress Cardio regular rate and regular rhythm Neuro Speech: speech normal Nursing Assessment and Debridement Post-Debridement Measurements and Additional Note: Post-Debridement Measurements/Treatment - Nurse 1 - General Ulcer Assessment Start: 09/13/23 10:02 Freq: Status: Active Protocol: [email or web address].[email or web address] Activity Type Activity Date Activity User E-sign Co-sign Detail Recorded Client Recorded Date Recorded By Document 09/27/23 10:00 Desktop 09/27/23 10:03 RB 09/27/23 10:00 - Today's Visit Information Type of service Follow-up Visit (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 ) Arrival Mode Wheelchair Transfer Assistance None Patient Identification Verified (Name & Yes ) Patient Requires Transmission-Based No Precautions Height and Weight Body Mass Index (BMI) 33.9 BMI Classification Obese Vital Signs Temperature (97.8 F-99.1 F) 96.7 F L Temperature Source Temporal Pulse Rate (60-100) 94 Pulse Location Monitor Respiratory Rate (12-18) 18 Respiratory rate source Observation Blood Pressure (90/60-120/80) 140/79 H Blood Pressure Mean (mm Hg) 99 Source Monitor Position Semi-Fowlers Blood Pressure Location Left Arm History Since Last Visit- (Skip if this is Patient's initial visit) Have you changed medications since your No last visit? Any new allergies or adverse reactions No Had a fall/change in ADL's that may No increase risk of falls Signs or symptoms of abuse and/or No neglect since last visit Have you been in the hospital since your No last visit? Has dressing in place as prescribed Yes Has compression in place as prescribed Yes Has offloadiing in place as prescribed No Experienced any changes in pain level or No management Pain Scale: 0-10 Numeric Is Patient Pain Free? Yes WC - Nurse 1 - General Ulcer Measurement Start: 09/13/23 10:02 Freq: Status: Active Protocol: Activity Type Activity Date Activity User E-sign Co-sign Detail Recorded Client Recorded Date Recorded By Document 09/27/23 10:00 RB Desktop 09/27/23 10:03 RB 09/27/23 10:00 Wound Center Nurse 1 6. L medial ankle -Combined with other wound No -Current Size (cm) - Length 1 -Current Size (cm) - Width 0.2 -Current Size (cm) - Depth 0.2 -Total Square Cm 0.2 -Photo Taken Yes -Tunneling No -Undermining/Tunneling No -Circular Undermining No -Exudate Amt Medium -Exudate Type Serosanguineous -Wound Margin Thickened & Rolled Under -Granulation Amt Medium (34-66%) -Granulation Quality [employer] -Slough/Fibrin Yes -Necrosis Amt Medium (34-66%) -Necrotic Tissue Type Adherent Slough -Structure Exposed N/A -Texture ([place]-wound Skin Appearance) Assessed, Scarring -Moisture ([place]-wound Skin Appearance) Assessed -Color ([place]-wound Skin Appearance) Assessed -Temperature ([place]-wound Skin No Abnormality Appearance) (Pt Warm) -Tenderness on Palpation ([place]-wound No Skin Appearance) -Ulcer Cleansing Wound Cleanser -Foul Odor after Cleansing No -Anesthetic Used 4% Lidocaine Solution 7. L lateral ankle -Combined with other wound No -Current Size (cm) - Length 2.2 -Current Size (cm) - Width 1 -Current Size (cm) - Depth 2 -Total Square Cm 2.2 -Photo Taken Yes -Tunneling No -Undermining/Tunneling Yes -Undermining/Tunneling Starts (O'clock 6 ) -Undermining/Tunneling Ends (O'clock) 10 -Maximum Distance (cm) 2.5 -Circular Undermining No -Exudate Amt Large -Exudate Type Serosanguineous -Wound Margin Thickened & Rolled Under -Granulation Amt Medium (34-66%) -Granulation Quality [employer] -Slough/Fibrin Yes -Necrosis Amt Medium (34-66%) -Necrotic Tissue Type Adherent Slough -Structure Exposed N/A -Texture ([place]-wound Skin Appearance) Scarring -Moisture ([place]-wound Skin Appearance) Assessed -Color ([place]-wound Skin Appearance) Assessed -Temperature ([place]-wound Skin No Abnormality Appearance) (Pt Warm) -Tenderness on Palpation ([place]-wound No Skin Appearance) -Ulcer Cleansing Wound Cleanser -Foul Odor after Cleansing No -Anesthetic Used 4% Lidocaine Solution Lower Limb Edema Present Yes Left Calf (cm) 35.5 Left Ankle (cm) 26 WC - Nurse 2 - General Ulcer CM Notes Start: 09/13/23 10:02 Freq: Status: Active Protocol: Activity Type Activity Date Activity User E-sign Co-sign Detail Recorded Client Recorded Date Recorded By Document 09/27/23 10:10 Laptop 09/27/23 10:18 09/27/23 10:10 Wound Center Nurse 2 6. L medial ankle -Time 10:13 -Correct Patient No -Correct Side, Site, Position No -Correct Procedure No -Procedure Performed No -Clinical Debridement Muscle / Fascia -Post Debridement (cm) - Length 0 -Post Debridement (cm) - Width 0 -Post Debridement (cm) - Depth 0 -Total Square (Post) (cm) 0 -Area of Debridement (cm) - Length 0 -Area of Debridement (cm) - Width 0 -Total Square (Area) (cm) 0 -Tunneling No -Undermining/Tunneling No -Circular Undermining No -Wound/Ulcer Outcome Healed- Epithelialized -Treatment Response Procedure Tolerated Well -Offloading No -Debridement - Subq, 1st 20sq cm No -Debridement - Muscle / Fascia, 1st No 20sq cm 7. L lateral ankle -Time 10:13 -Correct Patient Yes -Correct Side, Site, Position Yes -Correct Procedure Yes -Procedure Performed Yes -Type of Procedure Debridement -Clinical Debridement Muscle / Fascia -Tissue Removed Muscle,Fascia -Post Debridement (cm) - Length 3.6 -Post Debridement (cm) - Width 1.2 -Post Debridement (cm) - Depth 2.3 -Total Square (Post) (cm) 4.32 -Area of Debridement (cm) - Length 3.6 -Area of Debridement (cm) - Width 1.2 -Total Square (Area) (cm) 4.32 -Tunneling No -Undermining/Tunneling No -Circular Undermining No -Wound/Ulcer Outcome Not Healed -Ulcer Cleansing Rinsed/ Irrigated with Saline -Foul Odor after Cleansing No -Bioengineered Tissue No -Bleeding Controlled with Pressure -Treatment Response Procedure Tolerated Well -Offloading No -Debridement - Subq, 1st 20sq cm No -Debridement - Muscle / Fascia, 1st Yes 20sq cm Pain Scale: 0-10 Numeric Is Patient Pain Free? Yes Assessment/Plan Assessment/Plan (1) Osteomyelitis of ankle or foot, left, acute: CODE(S): M86.172 - Other acute osteomyelitis, left ankle and foot (2) Osteomyelitis of ankle, left, acute: CODE(S): M86.172 - Other acute osteomyelitis, left ankle and foot (3) Abscess of bursa, left ankle and foot: CODE(S): M71.072 - Abscess of bursa, left ankle and foot (4) Cellulitis of left lower limb: CODE(S): L03.116 - Cellulitis of left lower limb (5) Charcot foot due to diabetes mellitus: CODE(S): E11.610 - 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 arthropathy (6) Non-pressure chronic ulcer of left 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: CODE(S): L97.322 - Non-pressure chronic ulcer of left 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 (7) Other acute postprocedural pain: CODE(S): G89.18 - Other acute postprocedural pain (8) Type 2 diabetes mellitus with diabetic polyneuropathy: CODE(S): E11.42 - Type 2 diabetes mellitus with diabetic polyneuropathy QUALIFIERS: Diabetes mellitus nursing home insulin use: without salvage determiner use Qualified Code(s): E11.42 - Type 2 diabetes mellitus with diabetic polyneuropathy (9) Non-pressure chronic ulcer of other part of left foot with necrosis of muscle: CODE(S): L97.523 - Non-pressure chronic ulcer of other part of left foot with necrosis of muscle (10) Gas gangrene of foot: CODE(S): A48.0 - Gas gangrene (11) Diabetic infection of left foot: CODE(S): E11.628 - Type 2 diabetes mellitus with other skin complications;L08.9 - Local infection of the skin and subcutaneous tissue, unspecified (12) Non-pressure chronic ulcer of other part of left foot with necrosis of bone: CODE(S): L97.524 - Non-pressure chronic ulcer of other part of left foot with necrosis of bone (13) Non-pressure chronic ulcer of other part of left foot with necrosis of muscle: CODE(S): L97.523 - Non-pressure chronic ulcer of other part of left foot with necrosis of muscle (14) Cellulitis: CODE(S): L03.90 - Cellulitis, unspecified QUALIFIERS: Site of cellulitis: extremity Site of cellulitis of extremity: lower extremity Laterality: left Qualified Code(s): L03.116 - Cellulitis of left lower limb (15) Hypertension: CODE(S): I10 - Essential (primary) hypertension QUALIFIERS: Hypertension type: primary hypertension Qualified Code(s): I10 - Essential (primary) hypertension PLAN: Plan The patient appears to be tolerating hyperbaric oxygen therapy well, which will be continued as per their medical treatment plan. 09/29/23 1506 <Electronically signed by Saba Park NP, NP-C> Cosigner Signature (if applicable): CC: ~ Signed [facility] Work Phone: 1(216) 988-422002-21-2024 Progress note Author Saba Park [facility] September 28, 2023 3:42pm Note Date/Time September 28, 2023 1:11pm [facility] [address] [place] [id number] Progress Note - Wound Care HBO 09/28/23 1309 MR#: [id number] Acct: [id number] Name: SNEHA WEI Rep #:[id number] : 1980 43 From: Saba sanabria NP PHYSICAL GEOGRAPHER-C PCP: Dr. Liliane Epps, DO Status:REG RCR Location: History of Present Illness Date of Service: 09/28/23 Chief Complaint: Diabetic left foot infection with gas gangrene and osteomyelitis; Li grade 3 diabetic foot infection. History of Wound: This is a 43-year-old male with a history of diabetic foot pathology and infections. On July 15, 2023, the patient underwent reconstruction of the left Charcot foot deformity by means of a left ankle arthrodesis, subtalar joint arthrodesis, midfoot osteotomy with percutaneous pinning, and application of the left lower extremity splint. He subsequently developed left foot and ankle abscess, with full-thickness wounds and osteomyelitis of the left ankle. On September 01, 2023, he underwent incision anddrainage of an abscess down to bone, and wound site debridement and wound bed preparation for delayed skin graft application. With respect to his osteomyelitis, the patient is receiving meropenem 3 times daily intravenously for Enterococcus and Pseudomonas infection by means of a PICC line which is located in his left upper arm. He is receiving home health care. Wound care isby means of packing with Dakin's moist to dry dressings, as his surgical wound is only partially closed. A multilayer compression wrap is being used to minimize swelling. The patient is nonweightbearing. 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 A thorough review of systems was undertaken. The patient has no history of pulmonary or otitic barotrauma. In fact, he has previously undergone hyperbaricoxygen therapy sessions in the past, approximately 10 years ago, for diabetic right foot infection. He tolerated hyperbaric oxygen therapy well at that time without incident. 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 His history is negative for seizures and seizure disorder. Pulmonary history is negative. Cardiac history is negative. The patient has no history of renal disease. He has no history of anemia or other hemopoietic abnormalities. There is no history of endocrine problems. He is not a smoker. Recent x-ray reveals moderate lung volumes. Increased AP dimension of the chest. Subsegmental atelectasis suggested in the left lung base. No definite inflammatory infiltrates. No effusions. Mild cardiac enlargement. Normal mediastinum and michelle. Normal visualized pulmonary arteries. Normal visualized aortic arch and descending thoracic aorta. An EKG reveals normal sinus rhythm and is interpreted as a normal EKG. Laboratory results have been reviewed, without any outstanding significant abnormalities. Subjective Subjective The patient underwent his 8th hyperbaric oxygen therapy session today. The patient is scheduled for a total of 30 such sessions. Tolerance of hyperbaric oxygen therapy: Hyperbaric oxygen therapy was provided as per the facility's protocol. Hyperbaric oxygen therapy was undertaken at 2 krzysztof and 100% oxygen for 90 minutes without air breaks. The patient tolerated hyperbaric oxygen therapy well, without complaints or complications. Upon emergence from the hyperbaric chamber, the patient's vital signs remained stable. Blood sugar levels were monitored both before and after hyperbaric oxygen therapy, and found to be satisfactory. Objective Data Objective Data Vital Signs: Vital Signs Temp Pulse Resp BP O2 Flow Rate 97.8 F 77 18 119/72 99 09/27/23 11:03 09/27/23 11:03 09/27/23 11:03 09/27/23 11:03 09/08/23 00:33 Oxygen Flow Rate (L/min) 99 Weight: 250 lb Body Mass Index (BMI) 33.9 Lab / Micro Data Labs: Laboratory Results - last 24 hr 09/28/23 12:08: POC Glucose 132 H Exam Physical Exam Const alert General Appearance: cooperative HEENT normocephalic Chest inspection of chest normal Resp normal respiratory effort and normal air movement Effort and Inspection: able to speak in complete sentences; Negative for respiratory distress Cardio regular rate and regular rhythm Neuro Speech: speech normal Nursing Assessment and Debridement Post-Debridement Measurements and Additional Note: Post-Debridement Measurements/Treatment - Nurse 1 - General Ulcer Assessment Start: 09/13/23 10:02 Freq: Status: Active Protocol: WC.LOWEXT Activity Type Activity Date Activity User E-sign Co-sign Detail Recorded Client Recorded Date Recorded By Document 09/27/23 10:00 Desktop 09/27/23 10:03 09/27/23 10:00 - Today's Visit Information Type of service Follow-up Visit (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 ) Arrival Mode Wheelchair Transfer Assistance None Patient Identification Verified (Name & Yes ) Patient Requires Transmission-Based No Precautions Height and Weight Body Mass Index (BMI) 33.9 BMI Classification Obese Vital Signs Temperature (97.8 F-99.1 F) 96.7 F L Temperature Source Temporal Pulse Rate (60-100) 94 Pulse Location Monitor Respiratory Rate (12-18) 18 Respiratory rate source Observation Blood Pressure (90/60-120/80) 140/79 H Blood Pressure Mean (mm Hg) 99 Source Monitor Position Semi-Fowlers Blood Pressure Location Left Arm History Since Last Visit- (Skip if this is Patient's initial visit) Have you changed medications since your No last visit? Any new allergies or adverse reactions No Had a fall/change in ADL's that may No increase risk of falls Signs or symptoms of abuse and/or No neglect since last visit Have you been in the hospital since your No last visit? Has dressing in place as prescribed Yes Has compression in place as prescribed Yes Has offloadiing in place as prescribed No Experienced any changes in pain level or No management Pain Scale: 0-10 Numeric Is Patient Pain Free? Yes WC - Nurse 1 - General Ulcer Measurement Start: 09/13/23 10:02 Freq: Status: Active Protocol: Activity Type Activity Date Activity User E-sign Co-sign Detail Recorded Client Recorded Date Recorded By Document 09/27/23 10:00 RB Desktop 09/27/23 10:03 RB 09/27/23 10:00 Wound Center Nurse 1 6. L medial ankle -Combined with other wound No -Current Size (cm) - Length 1 -Current Size (cm) - Width 0.2 -Current Size (cm) - Depth 0.2 -Total Square Cm 0.2 -Photo Taken Yes -Tunneling No -Undermining/Tunneling No -Circular Undermining No -Exudate Amt Medium -Exudate Type Serosanguineous -Wound Margin Thickened & Rolled Under -Granulation Amt Medium (34-66%) -Granulation Quality [employer] -Slough/Fibrin Yes -Necrosis Amt Medium (34-66%) -Necrotic Tissue Type Adherent Slough -Structure Exposed N/A -Texture ([place]-wound Skin Appearance) Assessed, Scarring -Moisture ([place]-wound Skin Appearance) Assessed -Color ([place]-wound Skin Appearance) Assessed -Temperature ([place]-wound Skin No Abnormality Appearance) (Pt Warm) -Tenderness on Palpation ([place]-wound No Skin Appearance) -Ulcer Cleansing Wound Cleanser -Foul Odor after Cleansing No -Anesthetic Used 4% Lidocaine Solution 7. L lateral ankle -Combined with other wound No -Current Size (cm) - Length 2.2 -Current Size (cm) - Width 1 -Current Size (cm) - Depth 2 -Total Square Cm 2.2 -Photo Taken Yes -Tunneling No -Undermining/Tunneling Yes -Undermining/Tunneling Starts (O'clock 6 ) -Undermining/Tunneling Ends (O'clock) 10 -Maximum Distance (cm) 2.5 -Circular Undermining No -Exudate Amt Large -Exudate Type Serosanguineous -Wound Margin Thickened & Rolled Under -Granulation Amt Medium (34-66%) -Granulation Quality [employer] -Slough/Fibrin Yes -Necrosis Amt Medium (34-66%) -Necrotic Tissue Type Adherent Slough -Structure Exposed N/A -Texture ([place]-wound Skin Appearance) Scarring -Moisture ([place]-wound Skin Appearance) Assessed -Color ([place]-wound Skin Appearance) Assessed -Temperature ([place]-wound Skin No Abnormality Appearance) (Pt Warm) -Tenderness on Palpation ([place]-wound No Skin Appearance) -Ulcer Cleansing Wound Cleanser -Foul Odor after Cleansing No -Anesthetic Used 4% Lidocaine Solution Lower Limb Edema Present Yes Left Calf (cm) 35.5 Left Ankle (cm) 26 WC - Nurse 2 - General Ulcer CM Notes Start: 09/13/23 10:02 Freq: Status: Active Protocol: Activity Type Activity Date Activity User E-sign Co-sign Detail Recorded Client Recorded Date Recorded By Document 09/27/23 10:10 Laptop 09/27/23 10:18 09/27/23 10:10 Wound Center Nurse 2 6. L medial ankle -Time 10:13 -Correct Patient No -Correct Side, Site, Position No -Correct Procedure No -Procedure Performed No -Clinical Debridement Muscle / Fascia -Post Debridement (cm) - Length 0 -Post Debridement (cm) - Width 0 -Post Debridement (cm) - Depth 0 -Total Square (Post) (cm) 0 -Area of Debridement (cm) - Length 0 -Area of Debridement (cm) - Width 0 -Total Square (Area) (cm) 0 -Tunneling No -Undermining/Tunneling No -Circular Undermining No -Wound/Ulcer Outcome Healed- Epithelialized -Treatment Response Procedure Tolerated Well -Offloading No -Debridement - Subq, 1st 20sq cm No -Debridement - Muscle / Fascia, 1st No 20sq cm 7. L lateral ankle -Time 10:13 -Correct Patient Yes -Correct Side, Site, Position Yes -Correct Procedure Yes -Procedure Performed Yes -Type of Procedure Debridement -Clinical Debridement Muscle / Fascia -Tissue Removed Muscle,Fascia -Post Debridement (cm) - Length 3.6 -Post Debridement (cm) - Width 1.2 -Post Debridement (cm) - Depth 2.3 -Total Square (Post) (cm) 4.32 -Area of Debridement (cm) - Length 3.6 -Area of Debridement (cm) - Width 1.2 -Total Square (Area) (cm) 4.32 -Tunneling No -Undermining/Tunneling No -Circular Undermining No -Wound/Ulcer Outcome Not Healed -Ulcer Cleansing Rinsed/ Irrigated with Saline -Foul Odor after Cleansing No -Bioengineered Tissue No -Bleeding Controlled with Pressure -Treatment Response Procedure Tolerated Well -Offloading No -Debridement - Subq, 1st 20sq cm No -Debridement - Muscle / Fascia, 1st Yes 20sq cm Pain Scale: 0-10 Numeric Is Patient Pain Free? Yes Assessment/Plan Assessment/Plan (1) Osteomyelitis of ankle or foot, left, acute: CODE(S): M86.172 - Other acute osteomyelitis, left ankle and foot (2) Osteomyelitis of ankle, left, acute: CODE(S): M86.172 - Other acute osteomyelitis, left ankle and foot (3) Abscess of bursa, left ankle and foot: CODE(S): M71.072 - Abscess of bursa, left ankle and foot (4) Cellulitis of left lower limb: CODE(S): L03.116 - Cellulitis of left lower limb (5) Charcot foot due to diabetes mellitus: CODE(S): E11.610 - 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 arthropathy (6) Non-pressure chronic ulcer of left 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: CODE(S): L97.322 - Non-pressure chronic ulcer of left 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 (7) Other acute postprocedural pain: CODE(S): G89.18 - Other acute postprocedural pain (8) Type 2 diabetes mellitus with diabetic polyneuropathy: CODE(S): E11.42 - Type 2 diabetes mellitus with diabetic polyneuropathy QUALIFIERS: Diabetes mellitus salvage determiner insulin use: without nursing home use Qualified Code(s): E11.42 - Type 2 diabetes mellitus with diabetic polyneuropathy (9) Non-pressure chronic ulcer of other part of left foot with necrosis of muscle: CODE(S): L97.523 - Non-pressure chronic ulcer of other part of left foot with necrosis of muscle (10) Gas gangrene of foot: CODE(S): A48.0 - Gas gangrene (11) Diabetic infection of left foot: CODE(S): E11.628 - Type 2 diabetes mellitus with other skin complications;L08.9 - Local infection of the skin and subcutaneous tissue, unspecified (12) Non-pressure chronic ulcer of other part of left foot with necrosis of bone: CODE(S): L97.524 - Non-pressure chronic ulcer of other part of left foot with necrosis of bone (13) Non-pressure chronic ulcer of other part of left foot with necrosis of muscle: CODE(S): L97.523 - Non-pressure chronic ulcer of other part of left foot with necrosis of muscle (14) Cellulitis: CODE(S): L03.90 - Cellulitis, unspecified QUALIFIERS: Laterality: left Site of cellulitis: extremity Site of cellulitis of extremity: lower extremity Qualified Code(s): L03.116 - Cellulitis of left lower limb (15) Hypertension: CODE(S): I10 - Essential (primary) hypertension QUALIFIERS: Hypertension type: primary hypertension Qualified Code(s): I10 - Essential (primary) hypertension PLAN: Plan The patient appears to be tolerating hyperbaric oxygen therapy well, which will be continued as per their medical treatment plan. 09/28/23 1542 <Electronically signed by Saba Park NP PHYSICAL GEOGRAPHER-C> Cosigner Signature (if applicable): CC: ~ Signed [facility] Work Phone: 1(142) 785-763802-20-2024 Progress note Author Barbara Ray [facility] September 27, 2023 2:21pm Note Date/Time September 27, 2023 2:21pm [facility] [address] [place] [address] Progress Note - Wound Care HBO 09/27/23 1414 MR#: [id number] Acct: [id number] Name: SNEHA WEI Jr. Rep #:[id number] : 1980 43 From: Barbara Drake PCP: Dr. Liliane Epps, DO Status:[facility] Location: History of Present Illness Date of Service: 09/27/23 Chief Complaint: Diabetic left foot infection with gas gangrene and osteomyelitis; Li grade 3 diabetic foot infection. History of Wound: This is a 43-year-old male with a history of diabetic foot pathology and infections. On July 15, 2023, the patient underwent reconstruction of the left Charcot foot deformity by means of a left ankle arthrodesis, subtalar joint arthrodesis, midfoot osteotomy with percutaneous pinning, and application of the left lower extremity splint. He subsequently developed left foot and ankle abscess, with full-thickness wounds and osteomyelitis of the left ankle. On September 01, 2023, he underwent incision anddrainage of an abscess down to bone, and wound site debridement and wound bed preparation for delayed skin graft application. With respect to his osteomyelitis, the patient is receiving meropenem 3 times daily intravenously for Enterococcus and Pseudomonas infection by means of a PICC line which is located in his left upper arm. He is receiving home health care. Wound care isby means of packing with Dakin's moist to dry dressings, as his surgical wound is only partially closed. A multilayer compression wrap is being used to minimize swelling. The patient is nonweightbearing. 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 A thorough review of systems was undertaken. The patient has no history of pulmonary or otitic barotrauma. In fact, he has previously undergone hyperbaricoxygen therapy sessions in the past, approximately 10 years ago, for diabetic right foot infection. He tolerated hyperbaric oxygen therapy well at that time without incident. 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 His history is negative for seizures and seizure disorder. Pulmonary history is negative. Cardiac history is negative. The patient has no history of renal disease. He has no history of anemia or other hemopoietic abnormalities. There is no history of endocrine problems. He is not a smoker. Recent x-ray reveals moderate lung volumes. Increased AP dimension of the chest. Subsegmental atelectasis suggested in the left lung base. No definite inflammatory infiltrates. No effusions. Mild cardiac enlargement. Normal mediastinum and michelle. Normal visualized pulmonary arteries. Normal visualized aortic arch and descending thoracic aorta. An EKG reveals normal sinus rhythm and is interpreted as a normal EKG. Laboratory results have been reviewed, without any outstanding significant abnormalities. Progress of Wound: Serial monitoring of the patient's wound is underway by Dr. Perkins, podiatric specialist. Subjective Subjective The patient underwent his seventh hyperbaric oxygen therapy session today. The patient is scheduled for a total of 30 such sessions. Tolerance of hyperbaric oxygen therapy: Hyperbaric oxygen therapy was provided as per the facility's protocol. Hyperbaric oxygen therapy was undertaken at 2 krzysztof and 100% oxygen for 90 minutes without air breaks. The patient tolerated hyperbaric oxygen therapy well, without complaints or complications. Upon emergence from the hyperbaric chamber, the patient's vital signs remained stable. Blood sugar levels were monitored both before and after hyperbaric oxygen therapy, and found to be satisfactory. His blood sugar was 130 prior to HBO therapy, and 133 following treatment. Objective Data Objective Data Vital Signs: Vital Signs Temp Pulse Resp BP O2 Flow Rate 97.8 F 77 18 119/72 99 09/27/23 11:03 09/27/23 11:03 09/27/23 11:03 09/27/23 11:03 09/08/23 00:33 Oxygen Flow Rate (L/min) 99 Weight: 250 lb Body Mass Index (BMI) 33.9 Lab / Micro Data Labs: Laboratory Results - last 24 hr 09/27/23 10:42: POC Glucose 130 H 09/27/23 12:46: POC Glucose 133 H Exam Physical Exam Narrative Neurovascular status unchanged Full-thickness wounds to medial ankle healing well stable granular base no signsof infection. Lateral ankle wound down to the level of bone noted with intact vessel loop closure allowing for partial wound closure. There is a residual wound. Pre and postdebridement measurements documented in notes nursing notes. No residual abscess noted. Resolved acute signs of infection. No signs of DVT. Const alert, oriented x3, no apparent distress and well nourished General Appearance: cooperative and well developed HEENT normocephalic and EAC's normal Head and Scalp: atraumatic Eyes PERRL and EOMs intact bilaterally Neck supple and no JVD General: trachea midline Resp normal respiratory effort and no use of accessory muscles Effort and Inspection: able to speak in complete sentences Cardio regular rate and regular rhythm Psych affect normal Appearance: grossly normal and well kempt Speech: normal speech Nursing Assessment and Debridement Post-Debridement Measurements and Additional Note: Post-Debridement Measurements/Treatment - Nurse 1 - General Ulcer Assessment Start: 09/13/23 10:02 Freq: Status: Active Protocol: GWEN Activity Type Activity Date Activity User E-sign Co-sign Detail Recorded Client Recorded Date Recorded By Document 09/27/23 10:00 RB Itinerisktop 09/27/23 10:03 RB 09/27/23 10:00 WC - Today's Visit Information Type of service Follow-up Visit (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 ) Arrival Mode Wheelchair Transfer Assistance None Patient Identification Verified (Name & Yes ) Patient Requires Transmission-Based No Precautions Height and Weight Body Mass Index (BMI) 33.9 BMI Classification Obese Vital Signs Temperature (97.8 F-99.1 F) 96.7 F L Temperature Source Temporal Pulse Rate (60-100) 94 Pulse Location Monitor Respiratory Rate (12-18) 18 Respiratory rate source Observation Blood Pressure (90/60-120/80) 140/79 H Blood Pressure Mean (mm Hg) 99 Source Monitor Position Semi-Fowlers Blood Pressure Location Left Arm History Since Last Visit- (Skip if this is Patient's initial visit) Have you changed medications since your No last visit? Any new allergies or adverse reactions No Had a fall/change in ADL's that may No increase risk of falls Signs or symptoms of abuse and/or No neglect since last visit Have you been in the hospital since your No last visit? Has dressing in place as prescribed Yes Has compression in place as prescribed Yes Has offloadiing in place as prescribed No Experienced any changes in pain level or No management Pain Scale: 0-10 Numeric Is Patient Pain Free? Yes - Nurse 1 - General Ulcer Measurement Start: 09/13/23 10:02 Freq: Status: Active Protocol: Activity Type Activity Date Activity User E-sign Co-sign Detail Recorded Client Recorded Date Recorded By Document 09/27/23 10:00 RB Desktop 09/27/23 10:03 RB 09/27/23 10:00 Wound Center Nurse 1 6. L medial ankle -Combined with other wound No -Current Size (cm) - Length 1 -Current Size (cm) - Width 0.2 -Current Size (cm) - Depth 0.2 -Total Square Cm 0.2 -Photo Taken Yes -Tunneling No -Undermining/Tunneling No -Circular Undermining No -Exudate Amt Medium -Exudate Type Serosanguineous -Wound Margin Thickened & Rolled Under -Granulation Amt Medium (34-66%) -Granulation Quality [employer] -Slough/Fibrin Yes -Necrosis Amt Medium (34-66%) -Necrotic Tissue Type Adherent Slough -Structure Exposed N/A -Texture ([place]-wound Skin Appearance) Assessed, Scarring -Moisture ([place]-wound Skin Appearance) Assessed -Color ([place]-wound Skin Appearance) Assessed -Temperature ([place]-wound Skin No Abnormality Appearance) (Pt Warm) -Tenderness on Palpation ([place]-wound No Skin Appearance) -Ulcer Cleansing Wound Cleanser -Foul Odor after Cleansing No -Anesthetic Used 4% Lidocaine Solution 7. L lateral ankle -Combined with other wound No -Current Size (cm) - Length 2.2 -Current Size (cm) - Width 1 -Current Size (cm) - Depth 2 -Total Square Cm 2.2 -Photo Taken Yes -Tunneling No -Undermining/Tunneling Yes -Undermining/Tunneling Starts (O'clock 6 ) -Undermining/Tunneling Ends (O'clock) 10 -Maximum Distance (cm) 2.5 -Circular Undermining No -Exudate Amt Large -Exudate Type Serosanguineous -Wound Margin Thickened & Rolled Under -Granulation Amt Medium (34-66%) -Granulation Quality [employer] -Slough/Fibrin Yes -Necrosis Amt Medium (34-66%) -Necrotic Tissue Type Adherent Slough -Structure Exposed N/A -Texture ([place]-wound Skin Appearance) Scarring -Moisture ([place]-wound Skin Appearance) Assessed -Color ([place]-wound Skin Appearance) Assessed -Temperature ([place]-wound Skin No Abnormality Appearance) (Pt Warm) -Tenderness on Palpation ([place]-wound No Skin Appearance) -Ulcer Cleansing Wound Cleanser -Foul Odor after Cleansing No -Anesthetic Used 4% Lidocaine Solution Lower Limb Edema Present Yes Left Calf (cm) 35.5 Left Ankle (cm) 26 WC - Nurse 2 - General Ulcer CM Notes Start: 09/13/23 10:02 Freq: Status: Active Protocol: Activity Type Activity Date Activity User E-sign Co-sign Detail Recorded Client Recorded Date Recorded By Document 09/27/23 10:10 Laptop 09/27/23 10:18 09/27/23 10:10 Wound Center Nurse 2 6. L medial ankle -Time 10:13 -Correct Patient No -Correct Side, Site, Position No -Correct Procedure No -Procedure Performed No -Clinical Debridement Muscle / Fascia -Post Debridement (cm) - Length 0 -Post Debridement (cm) - Width 0 -Post Debridement (cm) - Depth 0 -Total Square (Post) (cm) 0 -Area of Debridement (cm) - Length 0 -Area of Debridement (cm) - Width 0 -Total Square (Area) (cm) 0 -Tunneling No -Undermining/Tunneling No -Circular Undermining No -Wound/Ulcer Outcome Healed- Epithelialized -Treatment Response Procedure Tolerated Well -Offloading No -Debridement - Subq, 1st 20sq cm No -Debridement - Muscle / Fascia, 1st No 20sq cm 7. L lateral ankle -Time 10:13 -Correct Patient Yes -Correct Side, Site, Position Yes -Correct Procedure Yes -Procedure Performed Yes -Type of Procedure Debridement -Clinical Debridement Muscle / Fascia -Tissue Removed Muscle,Fascia -Post Debridement (cm) - Length 3.6 -Post Debridement (cm) - Width 1.2 -Post Debridement (cm) - Depth 2.3 -Total Square (Post) (cm) 4.32 -Area of Debridement (cm) - Length 3.6 -Area of Debridement (cm) - Width 1.2 -Total Square (Area) (cm) 4.32 -Tunneling No -Undermining/Tunneling No -Circular Undermining No -Wound/Ulcer Outcome Not Healed -Ulcer Cleansing Rinsed/ Irrigated with Saline -Foul Odor after Cleansing No -Bioengineered Tissue No -Bleeding Controlled with Pressure -Treatment Response Procedure Tolerated Well -Offloading No -Debridement - Subq, 1st 20sq cm No -Debridement - Muscle / Fascia, 1st Yes 20sq cm Pain Scale: 0-10 Numeric Is Patient Pain Free? 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: CODE(S): E11.610 - 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 arthropathy (3) Osteomyelitis of ankle, left, acute: CODE(S): M86.172 - Other acute osteomyelitis, left ankle and foot (4) Non-pressure chronic ulcer of other part of left foot with necrosis of muscle: CODE(S): L97.523 - Non-pressure chronic ulcer of other part of left foot with necrosis of muscle (5) Non-pressure chronic ulcer of other part of left foot with necrosis of bone: CODE(S): L97.524 - Non-pressure chronic ulcer of other part of left foot with necrosis of bone PLAN: Plan The patient appears to be tolerating hyperbaric oxygen therapy well, and has completed his 7 hyperbaric oxygen therapy session. Hyperbaric oxygen therapy will be continued as per the patient's medical treatment plan, anticipating a total of 30 such sessions. 09/27/23 1421 <Electronically signed by Barbara Ray MD> Cosigner Signature (if applicable): CC: ~ Signed [facility] Work Phone: [phone] 367-477402-20-2024 Progress note Author Jordi Perkins [facility] September 27, 2023 10:37am Note Date/Time September 27, 2023 10:30am [facility] [address] [place] [id number] Progress Note - Wound Care 09/27/23 1029 MR#: [id number] Acct: [id number] Name: SNEHA WEI JrGiovanny Rep #:[id number] : 1980 43 From: Jordi Perkins DPM PCP: Dr. Liliane Epps, DO Status:REG [facility] Location: History of Present Illness Date of Service: 09/27/23 Chief Complaint: Diabetic left foot infection with gas gangrene and osteomyelitis; Li grade 3 diabetic foot infection. History of Wound: This is a 43-year-old male with a history of diabetic foot pathology and infections. On July 15, 2023, the patient underwent reconstruction of the left Charcot foot deformity by means of a left ankle arthrodesis, subtalar joint arthrodesis, midfoot osteotomy with percutaneous pinning, and application of the left lower extremity splint. He subsequently developed left foot and ankle abscess, with full-thickness wounds and osteomyelitis of the left ankle. On September 01, 2023, he underwent incision anddrainage of an abscess down to bone, and wound site debridement and wound bed preparation for delayed skin graft application. With respect to his osteomyelitis, the patient is receiving meropenem 3 times daily intravenously for Enterococcus and Pseudomonas infection by means of a PICC line which is located in his left upper arm. He is receiving home health care. Wound care isby means of packing with Dakin's moist to dry dressings, as his surgical wound is only partially closed. A multilayer compression wrap is being used to minimize swelling. The patient is nonweightbearing. 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 A thorough review of systems was undertaken. The patient has no history of pulmonary or otitic barotrauma. In fact, he has previously undergone hyperbaricoxygen therapy sessions in the past, approximately 10 years ago, for diabetic right foot infection. He tolerated hyperbaric oxygen therapy well at that time without incident. 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 His history is negative for seizures and seizure disorder. Pulmonary history is negative. Cardiac history is negative. The patient has no history of renal disease. He has no history of anemia or other hemopoietic abnormalities. There is no history of endocrine problems. He is not a smoker. Recent x-ray reveals moderate lung volumes. Increased AP dimension of the chest. Subsegmental atelectasis suggested in the left lung base. No definite inflammatory infiltrates. No effusions. Mild cardiac enlargement. Normal mediastinum and michelle. Normal visualized pulmonary arteries. Normal visualized aortic arch and descending thoracic aorta. An EKG reveals normal sinus rhythm and is interpreted as a normal EKG. Laboratory results have been reviewed, without any outstanding significant abnormalities. Progress of Wound: Serial monitoring of the patient's wound is underway by Dr. Perkins, podiatric specialist. Objective Data Objective Data Vital Signs: Vital Signs Temp Pulse Resp BP O2 Flow Rate 96.7 F L 94 18 140/79 H 99 09/27/23 10:09/27/23 10:09/27/23 10:09/27/23 10:09/08/23 00:33 Oxygen Flow Rate (L/min) 99 Weight: 113.398 kg Body Mass Index (BMI) 33.9 Lab / Micro Data Labs: Laboratory Results - last 24 hr 09/26/23 12:15: POC Glucose 127 H 09/26/23 12:32: POC Glucose 122 H Physical Exam Narrative Neurovascular status unchanged Full-thickness wounds to medial ankle healing well stable granular base no signsof infection. Lateral ankle wound down to the level of bone noted with intact vessel loop closure allowing for partial wound closure. There is a residual wound. Pre and postdebridement measurements documented in notes nursing notes. This was debrided down to level of muscle today. No residual abscess noted. Resolved acute signs of infection. No signs of DVT. Debridement Note Debridement Note Post-Debridement Measurements and Additional Note: Post-Debridement Measurements/Treatment - Nurse 1 - General Ulcer Assessment Start: 09/13/23 10:02 Freq: Status: Active Protocol: .LOWEXT Activity Type Activity Date Activity User E-sign Co-sign Detail Recorded Client Recorded Date Recorded By Document 09/13/23 10:02 RB Desktop 09/13/23 10:21 RB Document 09/20/23 09:55 RB Desktop 09/20/23 09:58 RB Document 09/27/23 10:00 RB Desktop 09/27/23 10:03 RB 09/13/23 09/20/23 09/27/23 10:02 09:55 10:00 - Today's Visit Information Type of service Follow-up Visit Follow-up Visit Follow-up Visit (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 (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 (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 ) ) ) Arrival Mode Ambulatory Ambulatory Wheelchair Transfer Assistance None None None Patient Identification Verified (Name & Yes Yes Yes ) Patient Requires Transmission-Based No No No Precautions Finger Stick Blood Sugar(mg/dl) (if 100 indicated): Blood Sugar Stated by Patient Height and Weight Body Mass Index (BMI) 33.9 33.9 33.9 BMI Classification Obese Obese Obese Vital Signs Temperature (97.8 F-99.1 F) 96 F L 97 F L 96.7 F L Temperature Source Temporal Temporal Temporal Pulse Rate (60-100) 93 88 94 Pulse Location Monitor Monitor Monitor Respiratory Rate (12-18) 18 18 18 Respiratory rate source Observation Observation Observation Blood Pressure (90/60-120/80) 122/68 H 135/71 H 140/79 H Blood Pressure Mean (mm Hg) 86 92 99 Source Monitor Monitor Monitor Position Semi-Fowlers Semi-Fowlers Semi-Fowlers Blood Pressure Location Left Arm Left Arm Left Arm History Since Last Visit- (Skip if this is Patient's initial visit) Have you changed medications since your No No No last visit? Any new allergies or adverse reactions No No No Had a fall/change in ADL's that may No No No increase risk of falls Signs or symptoms of abuse and/or No No No neglect since last visit Have you been in the hospital since your No No No last visit? Has dressing in place as prescribed Yes Yes Yes Has compression in place as prescribed Yes Yes Yes Has offloadiing in place as prescribed Yes No No Experienced any changes in pain level or No No No management Pain Scale: 0-10 Numeric Is Patient Pain Free? Yes Yes Yes WC - Nurse 1 - General Ulcer Measurement Start: 09/13/23 10:02 Freq: Status: Active Protocol: Activity Type Activity Date Activity User E-sign Co-sign Detail Recorded Client Recorded Date Recorded By Document 09/13/23 10:02 RB Desktop 09/13/23 10:21 RB Document 09/20/23 09:55 RB Desktop 09/20/23 09:58 RB Document 09/27/23 10:00 RB Desktop 09/27/23 10:03 RB 09/13/23 09/20/23 09/27/23 10:02 09:55 10:00 Wound Center Nurse 1 6. L medial ankle -Combined with other wound No No No -Current Size (cm) - Length 0.1 1.4 1 -Current Size (cm) - Width 0.1 0.5 0.2 -Current Size (cm) - Depth 0.1 0.5 0.2 -Total Square Cm 0.01 0.70 0.2 -Photo Taken Yes -Tunneling No No No -Undermining/Tunneling No No No -Circular Undermining No No No -Exudate Amt Medium Medium Medium -Exudate Type Serosanguineous Serosanguineous Serosanguineous -Wound Margin Distinct, Distinct, Thickened & Outline Outline Rolled Under Attached Attached -Granulation Amt Medium (34-66%) Medium (34-66%) Medium (34-66%) -Granulation Quality [employer] -Slough/Fibrin Yes Yes Yes -Necrosis Amt Medium (34-66%) Medium (34-66%) Medium (34-66%) -Necrotic Tissue Type Adherent Slough Adherent Slough Adherent Slough -Structure Exposed N/A N/A N/A -Texture ([place]-wound Skin Appearance) Assessed Assessed, Assessed, Scarring Scarring -Moisture ([place]-wound Skin Appearance) Assessed Assessed Assessed -Color ([place]-wound Skin Appearance) Assessed Assessed Assessed -Temperature ([place]-wound Skin No Abnormality No Abnormality No Abnormality Appearance) (Pt Warm) (Pt Warm) (Pt Warm) -Tenderness on Palpation ([place]-wound No No No Skin Appearance) -Ulcer Cleansing Wound Cleanser Wound Cleanser Wound Cleanser -Foul Odor after Cleansing No No No -Anesthetic Used 4% Lidocaine 4% Lidocaine Solution Solution 7. L lateral ankle -Combined with other wound No No No -Current Size (cm) - Length 3 4.2 2.2 -Current Size (cm) - Width 1 1 1 -Current Size (cm) - Depth 2.5 3 2 -Total Square Cm 3 4.2 2.2 -Photo Taken Yes -Tunneling No No No -Undermining/Tunneling No No Yes -Undermining/Tunneling Starts (O'clock 6 ) -Undermining/Tunneling Ends (O'clock) 10 -Maximum Distance (cm) 2.5 -Circular Undermining No No No -Exudate Amt Medium Large Large -Exudate Type Serosanguineous Serosanguineous Serosanguineous -Wound Margin Distinct, Distinct, Thickened & Outline Outline Rolled Under Attached Attached -Granulation Amt Medium (34-66%) Medium (34-66%) Medium (34-66%) -Granulation Quality [employer] -Slough/Fibrin Yes Yes Yes -Necrosis Amt Medium (34-66%) Medium (34-66%) Medium (34-66%) -Necrotic Tissue Type Adherent Slough Adherent Slough Adherent Slough -Structure Exposed N/A N/A N/A -Texture ([place]-wound Skin Appearance) Assessed Assessed, Scarring Scarring -Moisture ([place]-wound Skin Appearance) Assessed Assessed Assessed -Color ([place]-wound Skin Appearance) Assessed Assessed Assessed -Temperature ([place]-wound Skin No Abnormality No Abnormality No Abnormality Appearance) (Pt Warm) (Pt Warm) (Pt Warm) -Tenderness on Palpation ([place]-wound No No No Skin Appearance) -Ulcer Cleansing Wound Cleanser Wound Cleanser Wound Cleanser -Foul Odor after Cleansing No Yes No -Anesthetic Used 4% Lidocaine 4% Lidocaine Solution Solution Lower Limb Edema Present Yes Yes Yes Left Calf (cm) 34.5 34 35.5 Left Ankle (cm) 30 26 26 WC - Nurse 2 - General Ulcer CM Notes Start: 09/13/23 10:02 Freq: Status: Active Protocol: Activity Type Activity Date Activity User E-sign Co-sign Detail Recorded Client Recorded Date Recorded By Document 09/13/23 11:23 [id number] 09/13/23 11:24 Document 09/20/23 10:17 Laptop 09/20/23 10:26 Edit Result 09/20/23 10:17 (1) [id number] 09/20/23 10:30 Document 09/27/23 10:10 Laptop 09/27/23 10:18 (1) 6. L medial ankle - Clinical Debridement Subcutaneous => Muscle / Fascia - Tissue Removed Subcutaneous => Muscle,Fascia - Debridement - Subq, 1st 20sq cm Yes => No - Debridement - Muscle / Fascia, 1st => Yes 20sq cm 7. L lateral ankle - Clinical Debridement Subcutaneous => Muscle / Fascia - Tissue Removed Subcutaneous => Muscle,Fascia - Debridement - Muscle / Fascia, 1st => No 20sq cm 09/13/23 09/20/23 09/27/23 11:23 10:17 10:10 Wound Center Nurse 2 6. L medial ankle -Time 11:24 10:18 10:13 -Correct Patient Yes Yes No -Correct Side, Site, Position Yes Yes No -Correct Procedure Yes Yes No -Procedure Performed Yes Yes No -Type of Procedure Debridement Debridement -Clinical Debridement Muscle / Fascia Muscle / Fascia Muscle / Fascia -Tissue Removed Muscle Muscle,Fascia -Post Debridement (cm) - Length 2.0 1.7 0 -Post Debridement (cm) - Width 0.3 0.5 0 -Post Debridement (cm) - Depth 0.7 0.6 0 -Total Square (Post) (cm) 0.60 0.85 0 -Area of Debridement (cm) - Length 2.0 1.7 0 -Area of Debridement (cm) - Width 0.3 0.5 0 -Total Square (Area) (cm) 0.60 0.85 0 -Tunneling No No No -Undermining/Tunneling No No No -Circular Undermining No No No -Wound/Ulcer Outcome Not Healed Not Healed Healed- Epithelialized -Ulcer Cleansing Rinsed/ Rinsed/ Irrigated with Irrigated with Saline Saline -Foul Odor after Cleansing No No -Bioengineered Tissue No No -Bleeding Controlled with Pressure Pressure -Treatment Response Procedure Procedure Procedure Tolerated Well Tolerated Well Tolerated Well -Offloading No No No -Assistive Device(s) Wheelchair -Debridement - Subq, 1st 20sq cm No No -Debridement - Muscle / Fascia, 1st No Yes No 20sq cm 7. L lateral ankle -Time 11:23 10:17 10:13 -Correct Patient Yes Yes Yes -Correct Side, Site, Position Yes Yes Yes -Correct Procedure Yes Yes Yes -Procedure Performed Yes Yes Yes -Type of Procedure Debridement Debridement Debridement -Clinical Debridement Muscle / Fascia Muscle / Fascia Muscle / Fascia -Tissue Removed Muscle Muscle,Fascia Muscle,Fascia -Post Debridement (cm) - Length 4.9 4.7 3.6 -Post Debridement (cm) - Width 1.0 1.2 1.2 -Post Debridement (cm) - Depth 3.6 3.1 2.3 -Total Square (Post) (cm) 4.90 5.64 4.32 -Area of Debridement (cm) - Length 4.9 4.7 3.6 -Area of Debridement (cm) - Width 1.0 1.2 1.2 -Total Square (Area) (cm) 4.90 5.64 4.32 -Tunneling No No No -Undermining/Tunneling No No No -Circular Undermining No No No -Wound/Ulcer Outcome Not Healed Not Healed Not Healed -Ulcer Cleansing Rinsed/ Rinsed/ Rinsed/ Irrigated with Irrigated with Irrigated with Saline Saline Saline -Foul Odor after Cleansing No No No -Bioengineered Tissue No No No -Bleeding Controlled with Pressure Pressure Pressure -Treatment Response Procedure Procedure Procedure Tolerated Well Tolerated Well Tolerated Well -Offloading No No No -Assistive Device(s) Wheelchair, Walker -Debridement - Subq, 1st 20sq cm No No -Debridement - Muscle / Fascia, 1st Yes No Yes 20sq cm Pain Scale: 0-10 Numeric Is Patient Pain Free? Yes Yes Yes WC - Nurse 3 - General Ulcer D/C NN Start: 09/13/23 10:02 Freq: Status: Active Protocol: Activity Type Activity Date Activity User E-sign Co-sign Detail Recorded Client Recorded Date Recorded By Document 09/13/23 11:25 BRIAN [id number] 09/13/23 11:26 Document 09/20/23 10:30 RB Desktop 09/20/23 10:31 RB 09/13/23 09/20/23 11:25 10:30 Wound Care Center Nurse 3 6. L medial ankle -Ulcer Cleansing Rinsed/ Irrigated with Saline -Foul Odor after Cleansing No -Other Dressing 0.25 Dakin's dakins moistened gauze -Primary Dressing Covered/Secured with Dry Gauze Dry Gauze,Dry Gauze & Roll Gauze,Secured with Tape 7. L lateral ankle -Ulcer Cleansing Rinsed/ Irrigated with Saline -Foul Odor after Cleansing No -Other Dressing 0.25% dakin's dakins moistened gauze -Primary Dressing Covered/Secured with Dry Gauze Dry Gauze,Dry Gauze & Roll Gauze,Secured with Tape Left -Lotion applied to leg before Yes compression wrap -Multi-Layered Wrap Application Multi-Layer Comp - Left ($) -Tubular Bandage Double Layer -Size of Tubigrip Used Size E -Size E ($) 2 Treatment Response Procedure Tolerated Well Pain Scale: 0-10 Numeric Is Patient Pain Free? Yes Yes WC - Visit Discharge Discharge Condition Stable Stable Ambulatory Status Wheelchair Wheelchair Transportation Private Auto Private Auto Accompanied by father step father Medication Reconcilliation completed & Yes No provided to patient/care provider Clinical Summary of Care Provided Yes Yes Assessment/Plan Assessment/Plan (1) Osteomyelitis of ankle, left, acute: CODE(S): M86.172 - Other acute osteomyelitis, left ankle and foot PLAN: Exam performed Patient on IV meropenem via PICC line per infectious disease for enterococcal and pseudomonal infection left lower extremity with bone involvement Patient is status post Charcot reconstruction. This is a limb salvage case - wound significantly improved Today left lower extremity wound to lateral ankle was debrided down to and including level of muscle excisionally using a 5 mm dermal curette without incident. No anesthesia due to neuropathy. Hemostasis obtained with light compression. Patient tolerated procedure well. Pre and postdebridement measurements documented nursing notes. Patient will receive 3 times a week wound packing with Dakin's wet-to-dry and overlying multilayer compression wrap. Wound dressing in the wound care center followed by 2 dressings to performed by home health care Patient follows up weekly Patient nonweightbearing left lower extremity Patient received HBO therapy 2 times, wound significantly improved today. Blood sugar well-controlled (2) Charcot foot due to diabetes mellitus: CODE(S): E11.610 - 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 arthropathy (3) Abscess of bursa, left ankle and foot: CODE(S): M71.072 - Abscess of bursa, left ankle and foot (4) Cellulitis of left lower limb: CODE(S): L03.116 - Cellulitis of left lower limb (5) Non-pressure chronic ulcer of left 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: CODE(S): L97.322 - Non-pressure chronic ulcer of left 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 (6) Type 2 diabetes mellitus with diabetic polyneuropathy: CODE(S): E11.42 - Type 2 diabetes mellitus with diabetic polyneuropathy QUALIFIERS: Diabetes mellitus salvage determiner insulin use: without nursing home use Qualified Code(s): E11.42 - Type 2 diabetes mellitus with diabetic polyneuropathy 09/27/23 1037 <Electronically signed by Jordi Perkins DPM> Cosigner Signature (if applicable): CC: ~ Signed [facility] Work Phone: [phone]) 380-879802-16-2024 Progress note Author Saba Park [facility] September 23, 2023 11:39am Note Date/Time September 22, 2023 12:45pm [facility] [address] [place] [id number] Progress Note - Wound Care HBO 09/22/23 1243 MR#: [id number] Acct: [id number] Name: ERIBERTOSNEHACecil FRAGOSO Jr. Rep #:[id number] : 1980 43 From: Saba sanabria NP PHYSICAL GEOGRAPHER-C PCP: Dr. Liliane Epps, DO Status:REG RCR Location: [facility] History of Present Illness Date of Service: 09/22/23 Chief Complaint: Diabetic left foot infection with gas gangrene and osteomyelitis; Li grade 3 diabetic foot infection. History of Wound: This is a 43-year-old male with a history of diabetic foot pathology and infections. On July 15, 2023, the patient underwent reconstruction of the left Charcot foot deformity by means of a left ankle arthrodesis, subtalar joint arthrodesis, midfoot osteotomy with percutaneous pinning, and application of the left lower extremity splint. He subsequently developed left foot and ankle abscess, with full-thickness wounds and osteomyelitis of the left ankle. On September 01, 2023, he underwent incision anddrainage of an abscess down to bone, and wound site debridement and wound bed preparation for delayed skin graft application. With respect to his osteomyelitis, the patient is receiving meropenem 3 times daily intravenously for Enterococcus and Pseudomonas infection by means of a PICC line which is located in his left upper arm. He is receiving home health care. Wound care isby means of packing with Dakin's moist to dry dressings, as his surgical wound is only partially closed. A multilayer compression wrap is being used to minimize swelling. The patient is nonweightbearing. 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 A thorough review of systems was undertaken. The patient has no history of pulmonary or otitic barotrauma. In fact, he has previously undergone hyperbaricoxygen therapy sessions in the past, approximately 10 years ago, for diabetic right foot infection. He tolerated hyperbaric oxygen therapy well at that time without incident. 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 His history is negative for seizures and seizure disorder. Pulmonary history is negative. Cardiac history is negative. The patient has no history of renal disease. He has no history of anemia or other hemopoietic abnormalities. There is no history of endocrine problems. He is not a smoker. Recent x-ray reveals moderate lung volumes. Increased AP dimension of the chest. Subsegmental atelectasis suggested in the left lung base. No definite inflammatory infiltrates. No effusions. Mild cardiac enlargement. Normal mediastinum and michelle. Normal visualized pulmonary arteries. Normal visualized aortic arch and descending thoracic aorta. An EKG reveals normal sinus rhythm and is interpreted as a normal EKG. Laboratory results have been reviewed, without any outstanding significant abnormalities. Subjective Subjective The patient presented for his 5th hyperbaric oxygen session today. The patient is scheduled for 30 such sessions. Tolerance of hyperbaric oxygen therapy: Hyperbaric oxygen therapy was provided as per the facility's protocol. Hyperbaric oxygen therapy was undertaken at 2 krzysztof and 100% oxygen for 90 minutes without air breaks. The patient tolerated hyperbaric oxygen therapy well, without complications or complaints. Upon emergence from the hyperbaric chamber, the patient's vital signs remained stable. Blood sugar levels were monitored, and found to be satisfactory. Objective Data Lab / Micro Data 09/22/23 09:00 09/22/23 09:00 Labs: Laboratory Results - last 24 hr 09/22/23 09:00: WBC 5.2, RBC 4.72, Hgb 10.7 L, Hct 36.4 L, MCV 77.1 L, MCH 22.7 L, MCHC 29.4 L, RDW Std Deviation 39.8, RDW Coeff of Venita 14.3, Plt Count 327, MPV 10.3, ESR 32 H, Sodium 140, Potassium 4.1, Chloride 107, Carbon Dioxide 31.0, Anion Gap 2 L, BUN 17, Creatinine 0.78, Est GFR (MDRD) Af Amer 142, Est GFR (MDRD) Non-Af 117, BUN/Creatinine Ratio 21.9 H, Glucose 102, Calcium 9.5, Total Bilirubin 0.30, Direct Bilirubin 0.09, AST 21, ALT 31, Alkaline Phosphatase 108, Total Protein 7.1, Albumin 3.4, Globulin 3.7 Exam Physical Exam Const alert General Appearance: cooperative HEENT normocephalic Chest inspection of chest normal Resp normal respiratory effort and normal air movement Effort and Inspection: able to speak in complete sentences; Negative for respiratory distress Cardio regular rate and regular rhythm Neuro Speech: speech normal Assessment/Plan Assessment/Plan (1) Osteomyelitis of ankle or foot, left, acute: CODE(S): M86.172 - Other acute osteomyelitis, left ankle and foot (2) Osteomyelitis of ankle, left, acute: CODE(S): M86.172 - Other acute osteomyelitis, left ankle and foot (3) Abscess of bursa, left ankle and foot: CODE(S): M71.072 - Abscess of bursa, left ankle and foot (4) Cellulitis of left lower limb: CODE(S): L03.116 - Cellulitis of left lower limb (5) Charcot foot due to diabetes mellitus: CODE(S): E11.610 - 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 arthropathy (6) Non-pressure chronic ulcer of left 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: CODE(S): L97.322 - Non-pressure chronic ulcer of left 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 (7) Other acute postprocedural pain: CODE(S): G89.18 - Other acute postprocedural pain (8) Type 2 diabetes mellitus with diabetic polyneuropathy: CODE(S): E11.42 - Type 2 diabetes mellitus with diabetic polyneuropathy QUALIFIERS: Diabetes mellitus salvage determiner insulin use: without salvage determiner use Qualified Code(s): E11.42 - Type 2 diabetes mellitus with diabetic polyneuropathy (9) Non-pressure chronic ulcer of other part of left foot with necrosis of muscle: CODE(S): L97.523 - Non-pressure chronic ulcer of other part of left foot with necrosis of muscle (10) Gas gangrene of foot: CODE(S): A48.0 - Gas gangrene (11) Diabetic infection of left foot: CODE(S): E11.628 - Type 2 diabetes mellitus with other skin complications;L08.9 - Local infection of the skin and subcutaneous tissue, unspecified (12) Non-pressure chronic ulcer of other part of left foot with necrosis of bone: CODE(S): L97.524 - Non-pressure chronic ulcer of other part of left foot with necrosis of bone (13) Non-pressure chronic ulcer of other part of left foot with necrosis of muscle: CODE(S): L97.523 - Non-pressure chronic ulcer of other part of left foot with necrosis of muscle (14) Cellulitis: CODE(S): L03.90 - Cellulitis, unspecified QUALIFIERS: Site of cellulitis: extremity Site of cellulitis of extremity: lower extremity Laterality: left Qualified Code(s): L03.116 - Cellulitis of left lower limb (15) Hypertension: CODE(S): I10 - Essential (primary) hypertension QUALIFIERS: Hypertension type: primary hypertension Qualified Code(s): I10 - Essential (primary) hypertension PLAN: Plan The patient appears to be tolerating hyperbaric oxygen therapy well, which will be continued as per their medical treatment plan. 09/23/23 1139 <Electronically signed by Saba Park NP PHYSICAL GEOGRAPHER-C> Cosigner Signature (if applicable): CC: ~ Signed [facility] Work Phone: [phone] Progress note Author Mercedes Mejia [facility] September 23, 2023 10:39am Note Date/Time September 23, 2023 10:39am [facility] [address] [place] [address] Progress Note - Wound Care HBO 09/23/23 1038 MR#: [id number] Acct: [id number] Name: SNEHA WEI Jr. Rep #:[id number] : 1980 43 From: Mercedes Mejia DO PCP: Dr. Liliane Epps, DO Status:REG R Location: History of Present Illness Date of Service: 09/23/23 Chief Complaint: Diabetic left foot infection with gas gangrene and osteomyelitis; Li grade 3 diabetic foot infection. History of Wound: This is a 43-year-old male with a history of diabetic foot pathology and infections. On July 15, 2023, the patient underwent reconstruction of the left Charcot foot deformity by means of a left ankle arthrodesis, subtalar joint arthrodesis, midfoot osteotomy with percutaneous pinning, and application of the left lower extremity splint. He subsequently developed left foot and ankle abscess, with full-thickness wounds and osteomyelitis of the left ankle. On September 01, 2023, he underwent incision anddrainage of an abscess down to bone, and wound site debridement and wound bed preparation for delayed skin graft application. With respect to his osteomyelitis, the patient is receiving meropenem 3 times daily intravenously for Enterococcus and Pseudomonas infection by means of a PICC line which is located in his left upper arm. He is receiving home health care. Wound care isby means of packing with Dakin's moist to dry dressings, as his surgical wound is only partially closed. A multilayer compression wrap is being used to minimize swelling. The patient is nonweightbearing. 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 A thorough review of systems was undertaken. The patient has no history of pulmonary or otitic barotrauma. In fact, he has previously undergone hyperbaricoxygen therapy sessions in the past, approximately 10 years ago, for diabetic right foot infection. He tolerated hyperbaric oxygen therapy well at that time without incident. 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 His history is negative for seizures and seizure disorder. Pulmonary history is negative. Cardiac history is negative. The patient has no history of renal disease. He has no history of anemia or other hemopoietic abnormalities. There is no history of endocrine problems. He is not a smoker. Recent x-ray reveals moderate lung volumes. Increased AP dimension of the chest. Subsegmental atelectasis suggested in the left lung base. No definite inflammatory infiltrates. No effusions. Mild cardiac enlargement. Normal mediastinum and michelle. Normal visualized pulmonary arteries. Normal visualized aortic arch and descending thoracic aorta. An EKG reveals normal sinus rhythm and is interpreted as a normal EKG. Laboratory results have been reviewed, without any outstanding significant abnormalities. Progress of Wound: Serial monitoring of the patient's wound is underway by Dr. Perkins, podiatric specialist. Subjective Subjective The patient presented for his 6th hyperbaric oxygen session today. The patient is scheduled for 30 such sessions. Tolerance of hyperbaric oxygen therapy: Hyperbaric oxygen therapy was provided as per the facility's protocol. Hyperbaric oxygen therapy was undertaken at 2 krzysztof and 100% oxygen for 90 minutes without air breaks. The patient tolerated hyperbaric oxygen therapy well, without complications or complaints. Upon emergence from the hyperbaric chamber, the patient's vital signs remained stable. Blood sugar levels were monitored, and found to be satisfactory. Objective Data Objective Data Vital Signs: Vital Signs Temp Pulse Resp BP O2 Flow Rate 97.2 F L 95 18 135/80 H 99 09/22/23 12:50 09/22/23 12:50 09/22/23 12:50 09/22/23 12:50 09/08/23 00:33 Oxygen Flow Rate (L/min) 99 Weight: 113.398 kg Body Mass Index (BMI) 33.9 Lab / Micro Data Labs: Laboratory Results - last 24 hr 09/22/23 12:28: POC Glucose 163 H 09/22/23 14:27: POC Glucose 177 H Exam Physical Exam Const alert, oriented x3 and no apparent distress Psych mental status grossly normal, thought process normal, cooperative, affect normaland speech normal Nursing Assessment and Debridement Post-Debridement Measurements and Additional Note: Post-Debridement Measurements/Treatment - Nurse 1 - General Ulcer Assessment Start: 09/13/23 10:02 Freq: Status: Active Protocol: GWEN Activity Type Activity Date Activity User E-sign Co-sign Detail Recorded Client Recorded Date Recorded By Document 09/20/23 09:55 RB Desktop 09/20/23 09:58 RB 09/20/23 09:55 WC - Today's Visit Information Type of service Follow-up Visit (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 ) Arrival Mode Ambulatory Transfer Assistance None Patient Identification Verified (Name & Yes ) Patient Requires Transmission-Based No Precautions Finger Stick Blood Sugar(mg/dl) (if 100 indicated): Blood Sugar Stated by Patient Height and Weight Body Mass Index (BMI) 33.9 BMI Classification Obese Vital Signs Temperature (97.8 F-99.1 F) 97 F L Temperature Source Temporal Pulse Rate (60-100) 88 Pulse Location Monitor Respiratory Rate (12-18) 18 Respiratory rate source Observation Blood Pressure (90/60-120/80) 135/71 H Blood Pressure Mean (mm Hg) 92 Source Monitor Position Semi-Fowlers Blood Pressure Location Left Arm History Since Last Visit- (Skip if this is Patient's initial visit) Have you changed medications since your No last visit? Any new allergies or adverse reactions No Had a fall/change in ADL's that may No increase risk of falls Signs or symptoms of abuse and/or No neglect since last visit Have you been in the hospital since your No last visit? Has dressing in place as prescribed Yes Has compression in place as prescribed Yes Has offloadiing in place as prescribed No Experienced any changes in pain level or No management Pain Scale: 0-10 Numeric Is Patient Pain Free? Yes - Nurse 1 - General Ulcer Measurement Start: 09/13/23 10:02 Freq: Status: Active Protocol: Activity Type Activity Date Activity User E-sign Co-sign Detail Recorded Client Recorded Date Recorded By Document 09/20/23 09:55 RB Itinerisktop 09/20/23 09:58 RB 09/20/23 09:55 Wound Center Nurse 1 7. L lateral ankle -Combined with other wound No -Current Size (cm) - Length 4.2 -Current Size (cm) - Width 1 -Current Size (cm) - Depth 3 -Total Square Cm 4.2 -Tunneling No -Undermining/Tunneling No -Circular Undermining No -Exudate Amt Large -Exudate Type Serosanguineous -Wound Margin Distinct, Outline Attached -Granulation Amt Medium (34-66%) -Granulation Quality [employer] -Slough/Fibrin Yes -Necrosis Amt Medium (34-66%) -Necrotic Tissue Type Adherent Slough -Structure Exposed N/A -Texture (Corin[place]-wound Skin Appearance) Assessed, Scarring -Moisture ([place]-wound Skin Appearance) Assessed -Color ([place]-wound Skin Appearance) Assessed -Temperature ([place]-wound Skin No Abnormality Appearance) (Pt Warm) -Tenderness on Palpation ([place]-wound No Skin Appearance) -Ulcer Cleansing Wound Cleanser -Foul Odor after Cleansing Yes 6. L medial ankle -Combined with other wound No -Current Size (cm) - Length 1.4 -Current Size (cm) - Width 0.5 -Current Size (cm) - Depth 0.5 -Total Square Cm 0.70 -Tunneling No -Undermining/Tunneling No -Circular Undermining No -Exudate Amt Medium -Exudate Type Serosanguineous -Wound Margin Distinct, Outline Attached -Granulation Amt Medium (34-66%) -Granulation Quality [employer] -Slough/Fibrin Yes -Necrosis Amt Medium (34-66%) -Necrotic Tissue Type Adherent Slough -Structure Exposed N/A -Texture ([place]-wound Skin Appearance) Assessed, Scarring -Moisture ([place]-wound Skin Appearance) Assessed -Color ([place]-wound Skin Appearance) Assessed -Temperature ([place]-wound Skin No Abnormality Appearance) (Pt Warm) -Tenderness on Palpation ([place]-wound No Skin Appearance) -Ulcer Cleansing Wound Cleanser -Foul Odor after Cleansing No -Anesthetic Used 4% Lidocaine Solution Lower Limb Edema Present Yes Left Calf (cm) 34 Left Ankle (cm) 26 WC - Nurse 2 - General Ulcer CM Notes Start: 09/13/23 10:02 Freq: Status: Active Protocol: Activity Type Activity Date Activity User E-sign Co-sign Detail Recorded Client Recorded Date Recorded By Document 09/20/23 10:17 Laptop 09/20/23 10:26 09/20/23 10:17 Wound Center Nurse 2 7. L lateral ankle -Time 10:17 -Correct Patient Yes -Correct Side, Site, Position Yes -Correct Procedure Yes -Procedure Performed Yes -Type of Procedure Debridement -Clinical Debridement Muscle / Fascia -Tissue Removed Muscle,Fascia -Post Debridement (cm) - Length 4.7 -Post Debridement (cm) - Width 1.2 -Post Debridement (cm) - Depth 3.1 -Total Square (Post) (cm) 5.64 -Area of Debridement (cm) - Length 4.7 -Area of Debridement (cm) - Width 1.2 -Total Square (Area) (cm) 5.64 -Tunneling No -Undermining/Tunneling No -Circular Undermining No -Wound/Ulcer Outcome Not Healed -Ulcer Cleansing Rinsed/ Irrigated with Saline -Foul Odor after Cleansing No -Bioengineered Tissue No -Bleeding Controlled with Pressure -Treatment Response Procedure Tolerated Well -Offloading No -Assistive Device(s) Wheelchair, Walker -Debridement - Subq, 1st 20sq cm No -Debridement - Muscle / Fascia, 1st No 20sq cm 6. L medial ankle -Time 10:18 -Correct Patient Yes -Correct Side, Site, Position Yes -Correct Procedure Yes -Procedure Performed Yes -Type of Procedure Debridement -Clinical Debridement Muscle / Fascia -Tissue Removed Muscle,Fascia -Post Debridement (cm) - Length 1.7 -Post Debridement (cm) - Width 0.5 -Post Debridement (cm) - Depth 0.6 -Total Square (Post) (cm) 0.85 -Area of Debridement (cm) - Length 1.7 -Area of Debridement (cm) - Width 0.5 -Total Square (Area) (cm) 0.85 -Tunneling No -Undermining/Tunneling No -Circular Undermining No -Wound/Ulcer Outcome Not Healed -Ulcer Cleansing Rinsed/ Irrigated with Saline -Foul Odor after Cleansing No -Bioengineered Tissue No -Bleeding Controlled with Pressure -Treatment Response Procedure Tolerated Well -Offloading No -Assistive Device(s) Wheelchair -Debridement - Subq, 1st 20sq cm No -Debridement - Muscle / Fascia, 1st Yes 20sq cm Pain Scale: 0-10 Numeric Is Patient Pain Free? Yes WC - Nurse 3 - General Ulcer D/C NN Start: 09/13/23 10:02 Freq: Status: Active Protocol: Activity Type Activity Date Activity User E-sign Co-sign Detail Recorded Client Recorded Date Recorded By Document 09/20/23 10:30 RB Desktop 09/20/23 10:31 RB 09/20/23 10:30 Wound Care Center Nurse 3 7. L lateral ankle -Other Dressing dakins moistened gauze -Primary Dressing Covered/Secured with Dry Gauze,Dry Gauze & Roll Gauze,Secured with Tape 6. L medial ankle -Other Dressing dakins moistened gauze -Primary Dressing Covered/Secured with Dry Gauze,Dry Gauze & Roll Gauze,Secured with Tape Left -Tubular Bandage Double Layer -Size of Tubigrip Used Size E -Size E ($) 2 Treatment Response Procedure Tolerated Well Pain Scale: 0-10 Numeric Is Patient Pain Free? Yes WC - Visit Discharge Discharge Condition Stable Ambulatory Status Wheelchair Transportation Private Auto Accompanied by shaquille deng Medication Reconcilliation completed & No provided to patient/care provider Clinical Summary of Care Provided Yes Assessment/Plan Assessment/Plan (1) Osteomyelitis of ankle or foot, left, acute: CODE(S): M86.172 - Other acute osteomyelitis, left ankle and foot (2) Osteomyelitis of ankle, left, acute: CODE(S): M86.172 - Other acute osteomyelitis, left ankle and foot (3) Abscess of bursa, left ankle and foot: CODE(S): M71.072 - Abscess of bursa, left ankle and foot (4) Cellulitis of left lower limb: CODE(S): L03.116 - Cellulitis of left lower limb (5) Charcot foot due to diabetes mellitus: CODE(S): E11.610 - 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 arthropathy (6) Non-pressure chronic ulcer of left 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: CODE(S): L97.322 - Non-pressure chronic ulcer of left 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 (7) Other acute postprocedural pain: CODE(S): G89.18 - Other acute postprocedural pain (8) Type 2 diabetes mellitus with diabetic polyneuropathy: CODE(S): E11.42 - Type 2 diabetes mellitus with diabetic polyneuropathy QUALIFIERS: Diabetes mellitus salvage determiner insulin use: without nursing home use Qualified Code(s): E11.42 - Type 2 diabetes mellitus with diabetic polyneuropathy (9) 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 muscle: CODE(S): L97.523 - Non-pressure chronic ulcer of other part of left foot with necrosis of muscle (10) Gas gangrene of foot: CODE(S): A48.0 - Gas gangrene (11) Diabetic infection of left foot: CODE(S): E11.628 - Type 2 diabetes mellitus with other skin complications;L08.9 - Local infection of the skin and subcutaneous tissue, unspecified (12) Non-pressure chronic ulcer of other part of left foot with necrosis of bone: CODE(S): L97.524 - Non-pressure chronic ulcer of other part of left foot with necrosis of bone (13) Cellulitis: CODE(S): L03.90 - Cellulitis, unspecified QUALIFIERS: Site of cellulitis: extremity Site of cellulitis of extremity: lower extremity Laterality: left Qualified Code(s): L03.116 - Cellulitis of left lower limb (14) Hypertension: CODE(S): I10 - Essential (primary) hypertension QUALIFIERS: Hypertension type: primary hypertension Qualified Code(s): I10 - Essential (primary) hypertension PLAN: Plan The patient appears to be tolerating hyperbaric oxygen therapy well, which will be continued as per their medical treatment plan. 09/23/23 1039 <Electronically signed by Mercedes Mejia DO> Cosigner Signature (if applicable): CC: ~ Signed [facility] Work Phone: [phone] Progress note Author Saba Park [facility] September 21, 2023 3:12pm Note Date/Time September 21, 2023 1:17pm [facility] [address] [place] [id number] Progress Note - Wound Care HBO 09/21/23 1316 MR#: [id number] Acct: [id number] Name: SNEHA WEI Jr. Rep #:[id number] : 1980 43 From: Saba sanabria NP PHYSICAL GEOGRAPHER-C PCP: Dr. Liliane Epps, DO Status:REG RCR Location: History of Present Illness Date of Service: 09/21/23 Chief Complaint: Diabetic left foot infection with gas gangrene and osteomyelitis; Li grade 3 diabetic foot infection. History of Wound: This is a 43-year-old male with a history of diabetic foot pathology and infections. On July 15, 2023, the patient underwent reconstruction of the left Charcot foot deformity by means of a left ankle arthrodesis, subtalar joint arthrodesis, midfoot osteotomy with percutaneous pinning, and application of the left lower extremity splint. He subsequently developed left foot and ankle abscess, with full-thickness wounds and osteomyelitis of the left ankle. On September 01, 2023, he underwent incision anddrainage of an abscess down to bone, and wound site debridement and wound bed preparation for delayed skin graft application. With respect to his osteomyelitis, the patient is receiving meropenem 3 times daily intravenously for Enterococcus and Pseudomonas infection by means of a PICC line which is located in his left upper arm. He is receiving home health care. Wound care isby means of packing with Dakin's moist to dry dressings, as his surgical wound is only partially closed. A multilayer compression wrap is being used to minimize swelling. The patient is nonweightbearing. 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 A thorough review of systems was undertaken. The patient has no history of pulmonary or otitic barotrauma. In fact, he has previously undergone hyperbaricoxygen therapy sessions in the past, approximately 10 years ago, for diabetic right foot infection. He tolerated hyperbaric oxygen therapy well at that time without incident. 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 His history is negative for seizures and seizure disorder. Pulmonary history is negative. Cardiac history is negative. The patient has no history of renal disease. He has no history of anemia or other hemopoietic abnormalities. There is no history of endocrine problems. He is not a smoker. Recent x-ray reveals moderate lung volumes. Increased AP dimension of the chest. Subsegmental atelectasis suggested in the left lung base. No definite inflammatory infiltrates. No effusions. Mild cardiac enlargement. Normal mediastinum and michelle. Normal visualized pulmonary arteries. Normal visualized aortic arch and descending thoracic aorta. An EKG reveals normal sinus rhythm and is interpreted as a normal EKG. Laboratory results have been reviewed, without any outstanding significant abnormalities. Subjective Subjective The patient presented for his 4th hyperbaric oxygen session today. The patient is scheduled for 30 such sessions. Tolerance of hyperbaric oxygen therapy: Hyperbaric oxygen therapy was provided as per the facility's protocol. Hyperbaric oxygen therapy was undertaken at 2 krzysztof and 100% oxygen for 90 minutes without air breaks. The patient tolerated hyperbaric oxygen therapy well, without complications or complaints. Upon emergence from the hyperbaric chamber, the patient's vital signs remained stable. Blood sugar levels were monitored, and found to be satisfactory. Objective Data Objective Data Vital Signs: Vital Signs Temp Pulse Resp BP O2 Flow Rate 95.7 F L 90 18 121/71 H 99 09/20/23 11:04 09/20/23 11:04 09/20/23 11:04 09/20/23 11:04 09/08/23 00:33 Oxygen Flow Rate (L/min) 99 Weight: 250 lb Body Mass Index (BMI) 33.9 Lab / Micro Data Labs: Laboratory Results - last 24 hr 09/21/23 12:25: POC Glucose 147 H Radiography Diagnostic Testing: Radiology Impression Extremity Arterial Study 09/20/23 14:11 Interpretation Summary Triphasic Doppler waveforms are noted at ankle level bilaterally. Pulse-volume recordings appear satisfactory bilaterally. The resting right ankle-brachial index is normal. The resting left ankle- brachial index could not be determined due to the non-compressibility of the vasculature at ankle level on the left. Digital-brachial indices are mildly diminished bilaterally. Arterial flow appears normal at ankle level bilaterally. There is evidence of arterial calcification at ankle level on the left. There is evidence of mild arterial occlusive diseaseat digital level bilaterally. Ordering Physician: Barbara Ray Referring Physician: BARBARA RAY MD Performed By: Marty Lackey RVT Exam Physical Exam Const alert General Appearance: cooperative HEENT normocephalic Chest inspection of chest normal Resp normal respiratory effort and normal air movement Effort and Inspection: able to speak in complete sentences; Negative for respiratory distress Cardio regular rate and regular rhythm Neuro Speech: speech normal Nursing Assessment and Debridement Post-Debridement Measurements and Additional Note: Post-Debridement Measurements/Treatment WC - Nurse 1 - General Ulcer Assessment Start: 09/13/23 10:02 Freq: Status: Active Protocol: GWEN Activity Type Activity Date Activity User E-sign Co-sign Detail Recorded Client Recorded Date Recorded By Document 09/20/23 09:55 RB Desktop 09/20/23 09:58 RB 09/20/23 09:55 WC - Today's Visit Information Type of service Follow-up Visit (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 ) Arrival Mode Ambulatory Transfer Assistance None Patient Identification Verified (Name & Yes ) Patient Requires Transmission-Based No Precautions Finger Stick Blood Sugar(mg/dl) (if 100 indicated): Blood Sugar Stated by Patient Height and Weight Body Mass Index (BMI) 33.9 BMI Classification Obese Vital Signs Temperature (97.8 F-99.1 F) 97 F L Temperature Source Temporal Pulse Rate (60-100) 88 Pulse Location Monitor Respiratory Rate (12-18) 18 Respiratory rate source Observation Blood Pressure (90/60-120/80) 135/71 H Blood Pressure Mean (mm Hg) 92 Source Monitor Position Semi-Fowlers Blood Pressure Location Left Arm History Since Last Visit- (Skip if this is Patient's initial visit) Have you changed medications since your No last visit? Any new allergies or adverse reactions No Had a fall/change in ADL's that may No increase risk of falls Signs or symptoms of abuse and/or No neglect since last visit Have you been in the hospital since your No last visit? Has dressing in place as prescribed Yes Has compression in place as prescribed Yes Has offloadiing in place as prescribed No Experienced any changes in pain level or No management Pain Scale: 0-10 Numeric Is Patient Pain Free? Yes MARY - Nurse 1 - General Ulcer Measurement Start: 09/13/23 10:02 Freq: Status: Active Protocol: Activity Type Activity Date Activity User E-sign Co-sign Detail Recorded Client Recorded Date Recorded By Document 09/20/23 09:55 RB Itinerisktop 09/20/23 09:58 RB 09/20/23 09:55 Wound Center Nurse 1 7. L lateral ankle -Combined with other wound No -Current Size (cm) - Length 4.2 -Current Size (cm) - Width 1 -Current Size (cm) - Depth 3 -Total Square Cm 4.2 -Tunneling No -Undermining/Tunneling No -Circular Undermining No -Exudate Amt Large -Exudate Type Serosanguineous -Wound Margin Distinct, Outline Attached -Granulation Amt Medium (34-66%) -Granulation Quality [employer] -Slough/Fibrin Yes -Necrosis Amt Medium (34-66%) -Necrotic Tissue Type Adherent Slough -Structure Exposed N/A -Texture ([place]-wound Skin Appearance) Assessed, Scarring -Moisture ([place]-wound Skin Appearance) Assessed -Color ([place]-wound Skin Appearance) Assessed -Temperature ([place]-wound Skin No Abnormality Appearance) (Pt Warm) -Tenderness on Palpation ([place]-wound No Skin Appearance) -Ulcer Cleansing Wound Cleanser -Foul Odor after Cleansing Yes 6. L medial ankle -Combined with other wound No -Current Size (cm) - Length 1.4 -Current Size (cm) - Width 0.5 -Current Size (cm) - Depth 0.5 -Total Square Cm 0.70 -Tunneling No -Undermining/Tunneling No -Circular Undermining No -Exudate Amt Medium -Exudate Type Serosanguineous -Wound Margin Distinct, Outline Attached -Granulation Amt Medium (34-66%) -Granulation Quality [employer] -Slough/Fibrin Yes -Necrosis Amt Medium (34-66%) -Necrotic Tissue Type Adherent Slough -Structure Exposed N/A -Texture ([place]-wound Skin Appearance) Assessed, Scarring -Moisture ([place]-wound Skin Appearance) Assessed -Color ([place]-wound Skin Appearance) Assessed -Temperature ([place]-wound Skin No Abnormality Appearance) (Pt Warm) -Tenderness on Palpation ([place]-wound No Skin Appearance) -Ulcer Cleansing Wound Cleanser -Foul Odor after Cleansing No -Anesthetic Used 4% Lidocaine Solution Lower Limb Edema Present Yes Left Calf (cm) 34 Left Ankle (cm) 26 WC - Nurse 2 - General Ulcer CM Notes Start: 09/13/23 10:02 Freq: Status: Active Protocol: Activity Type Activity Date Activity User E-sign Co-sign Detail Recorded Client Recorded Date Recorded By Document 09/20/23 10:17 Laptop 09/20/23 10:26 09/20/23 10:17 Wound Center Nurse 2 7. L lateral ankle -Time 10:17 -Correct Patient Yes -Correct Side, Site, Position Yes -Correct Procedure Yes -Procedure Performed Yes -Type of Procedure Debridement -Clinical Debridement Muscle / Fascia -Tissue Removed Muscle,Fascia -Post Debridement (cm) - Length 4.7 -Post Debridement (cm) - Width 1.2 -Post Debridement (cm) - Depth 3.1 -Total Square (Post) (cm) 5.64 -Area of Debridement (cm) - Length 4.7 -Area of Debridement (cm) - Width 1.2 -Total Square (Area) (cm) 5.64 -Tunneling No -Undermining/Tunneling No -Circular Undermining No -Wound/Ulcer Outcome Not Healed -Ulcer Cleansing Rinsed/ Irrigated with Saline -Foul Odor after Cleansing No -Bioengineered Tissue No -Bleeding Controlled with Pressure -Treatment Response Procedure Tolerated Well -Offloading No -Assistive Device(s) Wheelchair, Walker -Debridement - Subq, 1st 20sq cm No -Debridement - Muscle / Fascia, 1st No 20sq cm 6. L medial ankle -Time 10:18 -Correct Patient Yes -Correct Side, Site, Position Yes -Correct Procedure Yes -Procedure Performed Yes -Type of Procedure Debridement -Clinical Debridement Muscle / Fascia -Tissue Removed Muscle,Fascia -Post Debridement (cm) - Length 1.7 -Post Debridement (cm) - Width 0.5 -Post Debridement (cm) - Depth 0.6 -Total Square (Post) (cm) 0.85 -Area of Debridement (cm) - Length 1.7 -Area of Debridement (cm) - Width 0.5 -Total Square (Area) (cm) 0.85 -Tunneling No -Undermining/Tunneling No -Circular Undermining No -Wound/Ulcer Outcome Not Healed -Ulcer Cleansing Rinsed/ Irrigated with Saline -Foul Odor after Cleansing No -Bioengineered Tissue No -Bleeding Controlled with Pressure -Treatment Response Procedure Tolerated Well -Offloading No -Assistive Device(s) Wheelchair -Debridement - Subq, 1st 20sq cm No -Debridement - Muscle / Fascia, 1st Yes 20sq cm Pain Scale: 0-10 Numeric Is Patient Pain Free? Yes WC - Nurse 3 - General Ulcer D/C NN Start: 09/13/23 10:02 Freq: Status: Active Protocol: Activity Type Activity Date Activity User E-sign Co-sign Detail Recorded Client Recorded Date Recorded By Document 09/20/23 10:30 RB Desktop 09/20/23 10:31 RB 09/20/23 10:30 Wound Care Center Nurse 3 7. L lateral ankle -Other Dressing dakins moistened gauze -Primary Dressing Covered/Secured with Dry Gauze,Dry Gauze & Roll Gauze,Secured with Tape 6. L medial ankle -Other Dressing dakins moistened gauze -Primary Dressing Covered/Secured with Dry Gauze,Dry Gauze & Roll Gauze,Secured with Tape Left -Tubular Bandage Double Layer -Size of Tubigrip Used Size E -Size E ($) 2 Treatment Response Procedure Tolerated Well Pain Scale: 0-10 Numeric Is Patient Pain Free? Yes WC - Visit Discharge Discharge Condition Stable Ambulatory Status Wheelchair Transportation Private Auto Accompanied by step father Medication Reconcilliation completed & No provided to patient/care provider Clinical Summary of Care Provided Yes Assessment/Plan Assessment/Plan (1) Osteomyelitis of ankle or foot, left, acute: CODE(S): M86.172 - Other acute osteomyelitis, left ankle and foot (2) Osteomyelitis of ankle, left, acute: CODE(S): M86.172 - Other acute osteomyelitis, left ankle and foot (3) Abscess of bursa, left ankle and foot: CODE(S): M71.072 - Abscess of bursa, left ankle and foot (4) Cellulitis of left lower limb: CODE(S): L03.116 - Cellulitis of left lower limb (5) Charcot foot due to diabetes mellitus: CODE(S): E11.610 - 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 arthropathy (6) Non-pressure chronic ulcer of left 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: CODE(S): L97.322 - Non-pressure chronic ulcer of left 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 (7) Other acute postprocedural pain: CODE(S): G89.18 - Other acute postprocedural pain (8) Type 2 diabetes mellitus with diabetic polyneuropathy: CODE(S): E11.42 - Type 2 diabetes mellitus with diabetic polyneuropathy QUALIFIERS: Diabetes mellitus salvage determiner insulin use: without nursing home use Qualified Code(s): E11.42 - Type 2 diabetes mellitus with diabetic polyneuropathy (9) Non-pressure chronic ulcer of other part of left foot with necrosis of muscle: CODE(S): L97.523 - Non-pressure chronic ulcer of other part of left foot with necrosis of muscle (10) Gas gangrene of foot: CODE(S): A48.0 - Gas gangrene (11) Diabetic infection of left foot: CODE(S): E11.628 - Type 2 diabetes mellitus with other skin complications;L08.9 - Local infection of the skin and subcutaneous tissue, unspecified (12) Non-pressure chronic ulcer of other part of left foot with necrosis of bone: CODE(S): L97.524 - Non-pressure chronic ulcer of other part of left foot with necrosis of bone (13) Non-pressure chronic ulcer of other part of left foot with necrosis of muscle: CODE(S): L97.523 - Non-pressure chronic ulcer of other part of left foot with necrosis of muscle (14) Cellulitis: CODE(S): L03.90 - Cellulitis, unspecified QUALIFIERS: Laterality: left Site of cellulitis: extremity Site of cellulitis of extremity: lower extremity Qualified Code(s): L03.116 - Cellulitis of left lower limb (15) Hypertension: CODE(S): I10 - Essential (primary) hypertension QUALIFIERS: Hypertension type: primary hypertension Qualified Code(s): I10 - Essential (primary) hypertension PLAN: Plan The patient appears to be tolerating hyperbaric oxygen therapy well, which will be continued as per their medical treatment plan. 09/21/23 1512 <Electronically signed by Saba Park NP PHYSICAL GEOGRAPHER-C> Cosigner Signature (if applicable): CC: ~ Signed [facility] Work Phone: [phone] Progress note Author Barbara Ray [facility] September 20, 2023 1:22pm Note Date/Time September 20, 2023 1:11pm [facility] [address] [place] [id number] Progress Note - Wound Care HBO 09/20/23 1309 MR#: [id number] Acct: [id number] Name: SNEHA WEI Rep #:[id number] : 1980 43 From: Barbara Drake PCP: Dr. Liliane Epps, DO Status:REG RCR Location: History of Present Illness Date of Service: 09/20/23 Chief Complaint: Diabetic left foot infection with gas gangrene and osteomyelitis; Il grade 3 diabetic foot infection. History of Wound: This is a 43-year-old male with a history of diabetic foot pathology and infections. On July 15, 2023, the patient underwent reconstruction of the left Charcot foot deformity by means of a left ankle arthrodesis, subtalar joint arthrodesis, midfoot osteotomy with percutaneous pinning, and application of the left lower extremity splint. He subsequently developed left foot and ankle abscess, with full-thickness wounds and osteomyelitis of the left ankle. On September 01, 2023, he underwent incision anddrainage of an abscess down to bone, and wound site debridement and wound bed preparation for delayed skin graft application. With respect to his osteomyelitis, the patient is receiving meropenem 3 times daily intravenously for Enterococcus and Pseudomonas infection by means of a PICC line which is located in his left upper arm. He is receiving home health care. Wound care isby means of packing with Dakin's moist to dry dressings, as his surgical wound is only partially closed. A multilayer compression wrap is being used to minimize swelling. The patient is nonweightbearing. 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 A thorough review of systems was undertaken. The patient has no history of pulmonary or otitic barotrauma. In fact, he has previously undergone hyperbaricoxygen therapy sessions in the past, approximately 10 years ago, for diabetic right foot infection. He tolerated hyperbaric oxygen therapy well at that time without incident. 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 His history is negative for seizures and seizure disorder. Pulmonary history is negative. Cardiac history is negative. The patient has no history of renal disease. He has no history of anemia or other hemopoietic abnormalities. There is no history of endocrine problems. He is not a smoker. Recent x-ray reveals moderate lung volumes. Increased AP dimension of the chest. Subsegmental atelectasis suggested in the left lung base. No definite inflammatory infiltrates. No effusions. Mild cardiac enlargement. Normal mediastinum and michelle. Normal visualized pulmonary arteries. Normal visualized aortic arch and descending thoracic aorta. An EKG reveals normal sinus rhythm and is interpreted as a normal EKG. Laboratory results have been reviewed, without any outstanding significant abnormalities. Progress of Wound: Serial monitoringof the patient's wound is underway by Dr. Perkins, podiatric specialist. Subjective Subjective The patient underwent his third hyperbaric oxygen session today. The patient isscheduled for 30 such sessions. Tolerance of hyperbaric oxygen therapy: Hyperbaric oxygen therapy was provided as per the facility's protocol. Hyperbaric oxygen therapy was undertaken at 2 krzysztof and 100% oxygen for 90 minutes without air breaks. The patient tolerated hyperbaric oxygen therapy well, without complications or complaints. Upon emergence from the hyperbaric chamber, the patient's vital signs remained stable. Blood sugar levels were monitored, and found to be satisfactory. Objective Data Objective Data Vital Signs: Vital Signs Temp Pulse Resp BP O2 Flow Rate 95.7 F L 90 18 121/71 H 99 09/20/23 11:04 09/20/23 11:04 09/20/23 11:04 09/20/23 11:04 09/08/23 00:33 Oxygen Flow Rate (L/min) 99 Weight: 250 lb Body Mass Index (BMI) 33.9 Lab / Micro Data Attestation: I reviewed the patient's lab results. Labs: Laboratory Results - last 24 hr 09/19/23 14:02: POC Glucose 131 H 09/20/23 10:44: POC Glucose 134 H 09/20/23 12:49: POC Glucose 110 H Exam Physical Exam Const alert, oriented x3, no apparent distress and well nourished General Appearance: cooperative and well developed HEENT normocephalic Head and Scalp: atraumatic External Auditory Canal: EAC's normal Tympanic Membrane: TM's normal bilaterally Mouth: oral and palatal mucosa normal Eyes PERRL and EOMs intact bilaterally Neck no JVD General: trachea midline Resp normal respiratory effort and no use of accessory muscles Effort and Inspection: able to speak in complete sentences Cardio regular rate and regular rhythm GI non-distended Psych affect normal Appearance: grossly normal and well kempt Speech: normal speech Nursing Assessment and Debridement Post-Debridement Measurements and Additional Note: Post-Debridement Measurements/Treatment WC - Nurse 1 - General Ulcer Assessment Start: 09/13/23 10:02 Freq: Status: Active Protocol: [email or web address] Activity Type Activity Date Activity User E-sign Co-sign Detail Recorded Client Recorded Date Recorded By Document 09/20/23 09:55 Desktop 09/20/23 09:58 RB 09/20/23 09:55 - Today's Visit Information Type of service Follow-up Visit (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 ) Arrival Mode Ambulatory Transfer Assistance None Patient Identification Verified (Name & Yes ) Patient Requires Transmission-Based No Precautions Finger Stick Blood Sugar(mg/dl) (if 100 indicated): Blood Sugar Stated by Patient Height and Weight Body Mass Index (BMI) 33.9 BMI Classification Obese Vital Signs Temperature (97.8 F-99.1 F) 97 F L Temperature Source Temporal Pulse Rate (60-100) 88 Pulse Location Monitor Respiratory Rate (12-18) 18 Respiratory rate source Observation Blood Pressure (90/60-120/80) 135/71 H Blood Pressure Mean (mm Hg) 92 Source Monitor Position Semi-Fowlers Blood Pressure Location Left Arm History Since Last Visit- (Skip if this is Patient's initial visit) Have you changed medications since your No last visit? Any new allergies or adverse reactions No Had a fall/change in ADL's that may No increase risk of falls Signs or symptoms of abuse and/or No neglect since last visit Have you been in the hospital since your No last visit? Has dressing in place as prescribed Yes Has compression in place as prescribed Yes Has offloadiing in place as prescribed No Experienced any changes in pain level or No management Pain Scale: 0-10 Numeric Is Patient Pain Free? Yes - Nurse 1 - General Ulcer Measurement Start: 09/13/23 10:02 Freq: Status: Active Protocol: Activity Type Activity Date Activity User E-sign Co-sign Detail Recorded Client Recorded Date Recorded By Document 09/20/23 09:55 RB Desktop 09/20/23 09:58 RB 09/20/23 09:55 Wound Center Nurse 1 7. L lateral ankle -Combined with other wound No -Current Size (cm) - Length 4.2 -Current Size (cm) - Width 1 -Current Size (cm) - Depth 3 -Total Square Cm 4.2 -Tunneling No -Undermining/Tunneling No -Circular Undermining No -Exudate Amt Large -Exudate Type Serosanguineous -Wound Margin Distinct, Outline Attached -Granulation Amt Medium (34-66%) -Granulation Quality [employer] -Slough/Fibrin Yes -Necrosis Amt Medium (34-66%) -Necrotic Tissue Type Adherent Slough -Structure Exposed N/A -Texture ([place]-wound Skin Appearance) Assessed, Scarring -Moisture ([place]-wound Skin Appearance) Assessed -Color ([place]-wound Skin Appearance) Assessed -Temperature ([place]-wound Skin No Abnormality Appearance) (Pt Warm) -Tenderness on Palpation ([place]-wound No Skin Appearance) -Ulcer Cleansing Wound Cleanser -Foul Odor after Cleansing Yes 6. L medial ankle -Combined with other wound No -Current Size (cm) - Length 1.4 -Current Size (cm) - Width 0.5 -Current Size (cm) - Depth 0.5 -Total Square Cm 0.70 -Tunneling No -Undermining/Tunneling No -Circular Undermining No -Exudate Amt Medium -Exudate Type Serosanguineous -Wound Margin Distinct, Outline Attached -Granulation Amt Medium (34-66%) -Granulation Quality [employer] -Slough/Fibrin Yes -Necrosis Amt Medium (34-66%) -Necrotic Tissue Type Adherent Slough -Structure Exposed N/A -Texture ([place]-wound Skin Appearance) Assessed, Scarring -Moisture ([place]-wound Skin Appearance) Assessed -Color ([place]-wound Skin Appearance) Assessed -Temperature ([place]-wound Skin No Abnormality Appearance) (Pt Warm) -Tenderness on Palpation ([place]-wound No Skin Appearance) -Ulcer Cleansing Wound Cleanser -Foul Odor after Cleansing No -Anesthetic Used 4% Lidocaine Solution Lower Limb Edema Present Yes Left Calf (cm) 34 Left Ankle (cm) 26 - Nurse 2 - General Ulcer CM Notes Start: 09/13/23 10:02 Freq: Status: Active Protocol: Activity Type Activity Date Activity User E-sign Co-sign Detail Recorded Client Recorded Date Recorded By Document 09/20/23 10:17 Laptop 09/20/23 10:26 09/20/23 10:17 Wound Center Nurse 2 7. L lateral ankle -Time 10:17 -Correct Patient Yes -Correct Side, Site, Position Yes -Correct Procedure Yes -Procedure Performed Yes -Type of Procedure Debridement -Clinical Debridement Muscle / Fascia -Tissue Removed Muscle,Fascia -Post Debridement (cm) - Length 4.7 -Post Debridement (cm) - Width 1.2 -Post Debridement (cm) - Depth 3.1 -Total Square (Post) (cm) 5.64 -Area of Debridement (cm) - Length 4.7 -Area of Debridement (cm) - Width 1.2 -Total Square (Area) (cm) 5.64 -Tunneling No -Undermining/Tunneling No -Circular Undermining No -Wound/Ulcer Outcome Not Healed -Ulcer Cleansing Rinsed/ Irrigated with Saline -Foul Odor after Cleansing No -Bioengineered Tissue No -Bleeding Controlled with Pressure -Treatment Response Procedure Tolerated Well -Offloading No -Assistive Device(s) Wheelchair, Walker -Debridement - Subq, 1st 20sq cm No -Debridement - Muscle / Fascia, 1st No 20sq cm 6. L medial ankle -Time 10:18 -Correct Patient Yes -Correct Side, Site, Position Yes -Correct Procedure Yes -Procedure Performed Yes -Type of Procedure Debridement -Clinical Debridement Muscle / Fascia -Tissue Removed Muscle,Fascia -Post Debridement (cm) - Length 1.7 -Post Debridement (cm) - Width 0.5 -Post Debridement (cm) - Depth 0.6 -Total Square (Post) (cm) 0.85 -Area of Debridement (cm) - Length 1.7 -Area of Debridement (cm) - Width 0.5 -Total Square (Area) (cm) 0.85 -Tunneling No -Undermining/Tunneling No -Circular Undermining No -Wound/Ulcer Outcome Not Healed -Ulcer Cleansing Rinsed/ Irrigated with Saline -Foul Odor after Cleansing No -Bioengineered Tissue No -Bleeding Controlled with Pressure -Treatment Response Procedure Tolerated Well -Offloading No -Assistive Device(s) Wheelchair -Debridement - Subq, 1st 20sq cm No -Debridement - Muscle / Fascia, 1st Yes 20sq cm Pain Scale: 0-10 Numeric Is Patient Pain Free? Yes WC - Nurse 3 - General Ulcer D/C NN Start: 09/13/23 10:02 Freq: Status: Active Protocol: Activity Type Activity Date Activity User E-sign Co-sign Detail Recorded Client Recorded Date Recorded By Document 09/20/23 10:30 RB Desktop 09/20/23 10:31 RB 09/20/23 10:30 Wound Care Center Nurse 3 7. L lateral ankle -Other Dressing dakins moistened gauze -Primary Dressing Covered/Secured with Dry Gauze,Dry Gauze & Roll Gauze,Secured with Tape 6. L medial ankle -Other Dressing dakins moistened gauze -Primary Dressing Covered/Secured with Dry Gauze,Dry Gauze & Roll Gauze,Secured with Tape Left -Tubular Bandage Double Layer -Size of Tubigrip Used Size E -Size E ($) 2 Treatment Response Procedure Tolerated Well Pain Scale: 0-10 Numeric Is Patient Pain Free? Yes WC - Visit Discharge Discharge Condition Stable Ambulatory Status Wheelchair Transportation Private Auto Accompanied by step father Medication Reconcilliation completed & No provided to patient/care provider Clinical Summary of Care Provided Yes Assessment/Plan Assessment/Plan (1) Osteomyelitis of ankle, left, acute: CODE(S): M86.172 - Other acute osteomyelitis, left ankle and foot PLAN: Exam performed Patient on IV meropenem via PICC line per infectious disease for enterococcal and pseudomonal infection left lower extremity with bone involvement Patient is status post Charcot reconstruction. This is a limb salvage case Today left lower extremity wound to lateral ankle was debrided down to and including level of muscle excisionally using a 5 mm dermal curette without incident. No anesthesia due to neuropathy. Hemostasis obtained with light compression. Patient tolerated procedure well. Pre and postdebridement measurements documented nursing notes. Patient will receive 3 times a week wound packing with Dakin's wet-to-dry and overlying multilayer compression wrap. Wound dressing in the wound care center followed by 2 dressings to performed by home health care Patient follows up weekly Patient nonweightbearing left lower extremity Patient received HBO therapy 2 times, wound significantly improved today. Blood sugar well-controlled (2) Charcot foot due to diabetes mellitus: CODE(S): E11.610 - 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 arthropathy (3) Abscess of bursa, left ankle and foot: CODE(S): M71.072 - Abscess of bursa, left ankle and foot (4) Cellulitis of left lower limb: CODE(S): L03.116 - Cellulitis of left lower limb (5) Non-pressure chronic ulcer of left 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: CODE(S): L97.322 - Non-pressure chronic ulcer of left 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 (6) Type 2 diabetes mellitus with diabetic polyneuropathy: CODE(S): E11.42 - Type 2 diabetes mellitus with diabetic polyneuropathy QUALIFIERS: Diabetes mellitus nursing home insulin use: without salvage determiner use Qualified Code(s): E11.42 - Type 2 diabetes mellitus with diabetic polyneuropathy (7) Non-pressure chronic ulcer of other part of left foot with necrosis of bone: CODE(S): L97.524 - Non-pressure chronic ulcer of other part of left foot with necrosis of bone (8) Non-pressure chronic ulcer of other part of left foot with necrosis of muscle: CODE(S): L97.523 - Non-pressure chronic ulcer of other part of left foot with necrosis of muscle (9) Diabetic infection of left foot: CODE(S): E11.628 - Type 2 diabetes mellitus with other skin complications;L08.9 - Local infection of the skin and subcutaneous tissue, unspecified (10) Cellulitis: CODE(S): L03.90 - Cellulitis, unspecified QUALIFIERS: Site of cellulitis: extremity Site of cellulitis of extremity: lower extremity Laterality: left Qualified Code(s): L03.116 - Cellulitis of left lower limb PLAN: Plan The patient appears to be tolerating hyperbaric oxygen therapy well, and has completed his third hyperbaric oxygen therapy session. Hyperbaric oxygen therapy will be continued as per the patient's medical treatment plan, anticipating a total of 30 such sessions. 09/20/23 1322 <Electronically signed by Barbara Ray MD> Cosigner Signature (if applicable): CC: ~ Signed [facility] Work Phone: [phone]) 329-651802-13-2024 Progress note Author Jordi Perkins [facility] September 20, 2023 10:25am Note Date/Time September 20, 2023 10:26am [facility] [address] [place] [address] Progress Note - Wound Care 09/20/23 1024 MR#: [id number] Acct: [id number] Name: SNEHA WEI Rep #:[id number] : 1980 43 From: Jordi Perkins DPM PCP: Dr. Liliane Epps, DO Status:REG RCR Location: History of Present Illness Date of Service: 09/20/23 Chief Complaint: Diabetic left foot infection with gas gangrene and osteomyelitis; Li grade 3 diabetic foot infection. History of Wound: Follow-up left TTC arthrodesis and midfoot osteotomy for Charcot reconstruction with secondary diabetic foot infection development which required abscess debridement down to level of tendon. Patient receiving meropenem via PICC line. No changes today, denies constitutional symptoms. Patient compliant with nonweightbearing, diabetes control and dressing changes. Objective Data Objective Data Vital Signs: Vital Signs Temp Pulse Resp BP O2 Flow Rate 97 F L 88 18 135/71 H 99 09/20/23 09:55 09/20/23 09:55 09/20/23 09:55 09/20/23 09:55 09/08/23 00:33 Oxygen Flow Rate (L/min) 99 Weight: 113.398 kg Body Mass Index (BMI) 33.9 Lab / Micro Data Labs: Laboratory Results - last 24 hr 09/19/23 11:58: POC Glucose 167 H 09/19/23 14:02: POC Glucose 131 H Physical Exam Narrative Neurovascular status unchanged Full-thickness wounds to medial ankle healing well stable granular base no signsof infection. Lateral ankle wound down to the level of bone noted with intact vessel loop closure allowing for partial wound closure. There is a residual wound. Pre and postdebridement measurements documented in notes nursing notes. This was debrided down to level of muscle today. No residual abscess noted. Resolved acute signs of infection. No signs of DVT. Debridement Note Debridement Note Post-Debridement Measurements and Additional Note: Post-Debridement Measurements/Treatment - Nurse 1 - General Ulcer Assessment Start: 09/13/23 10:02 Freq: Status: Active Protocol: GWEN Activity Type Activity Date Activity User E-sign Co-sign Detail Recorded Client Recorded Date Recorded By Document 09/13/23 10:02 RB Desktop 09/13/23 10:21 RB Document 09/20/23 09:55 RB Desktop 09/20/23 09:58 RB 09/13/23 09/20/23 10:02 09:55 - Today's Visit Information Type of service Follow-up Visit Follow-up Visit (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 (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 ) ) Arrival Mode Ambulatory Ambulatory Transfer Assistance None None Patient Identification Verified (Name & Yes Yes ) Patient Requires Transmission-Based No No Precautions Finger Stick Blood Sugar(mg/dl) (if 100 indicated): Blood Sugar Stated by Patient Height and Weight Body Mass Index (BMI) 33.9 33.9 BMI Classification Obese Obese Vital Signs Temperature (97.8 F-99.1 F) 96 F L 97 F L Temperature Source Temporal Temporal Pulse Rate (60-100) 93 88 Pulse Location Monitor Monitor Respiratory Rate (12-18) 18 18 Respiratory rate source Observation Observation Blood Pressure (90/60-120/80) 122/68 H 135/71 H Blood Pressure Mean (mm Hg) 86 92 Source Monitor Monitor Position Semi-Fowlers Semi-Fowlers Blood Pressure Location Left Arm Left Arm History Since Last Visit- (Skip if this is Patient's initial visit) Have you changed medications since your No No last visit? Any new allergies or adverse reactions No No Had a fall/change in ADL's that may No No increase risk of falls Signs or symptoms of abuse and/or No No neglect since last visit Have you been in the hospital since your No No last visit? Has dressing in place as prescribed Yes Yes Has compression in place as prescribed Yes Yes Has offloadiing in place as prescribed Yes No Experienced any changes in pain level or No No management Pain Scale: 0-10 Numeric Is Patient Pain Free? Yes Yes WC - Nurse 1 - General Ulcer Measurement Start: 09/13/23 10:02 Freq: Status: Active Protocol: Activity Type Activity Date Activity User E-sign Co-sign Detail Recorded Client Recorded Date Recorded By Document 09/13/23 10:02 RB Desktop 09/13/23 10:21 RB Document 09/20/23 09:55 RB Desktop 09/20/23 09:58 RB 09/13/23 09/20/23 10:02 09:55 Wound Center Nurse 1 7. L lateral ankle -Combined with other wound No No -Current Size (cm) - Length 3 4.2 -Current Size (cm) - Width 1 1 -Current Size (cm) - Depth 2.5 3 -Total Square Cm 3 4.2 -Tunneling No No -Undermining/Tunneling No No -Circular Undermining No No -Exudate Amt Medium Large -Exudate Type Serosanguineous Serosanguineous -Wound Margin Distinct, Distinct, Outline Outline Attached Attached -Granulation Amt Medium (34-66%) Medium (34-66%) -Granulation Quality [employer] -Slough/Fibrin Yes Yes -Necrosis Amt Medium (34-66%) Medium (34-66%) -Necrotic Tissue Type Adherent Slough Adherent Slough -Structure Exposed N/A N/A -Texture ([place]-wound Skin Appearance) Assessed Assessed, Scarring -Moisture ([place]-wound Skin Appearance) Assessed Assessed -Color ([place]-wound Skin Appearance) Assessed Assessed -Temperature ([place]-wound Skin No Abnormality No Abnormality Appearance) (Pt Warm) (Pt Warm) -Tenderness on Palpation ([place]-wound No No Skin Appearance) -Ulcer Cleansing Wound Cleanser Wound Cleanser -Foul Odor after Cleansing No Yes -Anesthetic Used 4% Lidocaine Solution 6. L medial ankle -Combined with other wound No No -Current Size (cm) - Length 0.1 1.4 -Current Size (cm) - Width 0.1 0.5 -Current Size (cm) - Depth 0.1 0.5 -Total Square Cm 0.01 0.70 -Tunneling No No -Undermining/Tunneling No No -Circular Undermining No No -Exudate Amt Medium Medium -Exudate Type Serosanguineous Serosanguineous -Wound Margin Distinct, Distinct, Outline Outline Attached Attached -Granulation Amt Medium (34-66%) Medium (34-66%) -Granulation Quality [employer] -Slough/Fibrin Yes Yes -Necrosis Amt Medium (34-66%) Medium (34-66%) -Necrotic Tissue Type Adherent Slough Adherent Slough -Structure Exposed N/A N/A -Texture ([place]-wound Skin Appearance) Assessed Assessed, Scarring -Moisture ([place]-wound Skin Appearance) Assessed Assessed -Color ([place]-wound Skin Appearance) Assessed Assessed -Temperature ([place]-wound Skin No Abnormality No Abnormality Appearance) (Pt Warm) (Pt Warm) -Tenderness on Palpation ([place]-wound No No Skin Appearance) -Ulcer Cleansing Wound Cleanser Wound Cleanser -Foul Odor after Cleansing No No -Anesthetic Used 4% Lidocaine Solution Lower Limb Edema Present Yes Yes Left Calf (cm) 34.5 34 Left Ankle (cm) 30 26 WC - Nurse 2 - General Ulcer CM Notes Start: 09/13/23 10:02 Freq: Status: Active Protocol: Activity Type Activity Date Activity User E-sign Co-sign Detail Recorded Client Recorded Date Recorded By Document 09/13/23 11:23 BRIAN [id number] 09/13/23 11:24 BRIAN 09/13/23 11:23 Wound Center Nurse 2 7. L lateral ankle -Time 11:23 -Correct Patient Yes -Correct Side, Site, Position Yes -Correct Procedure Yes -Procedure Performed Yes -Type of Procedure Debridement -Clinical Debridement Muscle / Fascia -Tissue Removed Muscle -Post Debridement (cm) - Length 4.9 -Post Debridement (cm) - Width 1.0 -Post Debridement (cm) - Depth 3.6 -Total Square (Post) (cm) 4.90 -Area of Debridement (cm) - Length 4.9 -Area of Debridement (cm) - Width 1.0 -Total Square (Area) (cm) 4.90 -Tunneling No -Undermining/Tunneling No -Circular Undermining No -Wound/Ulcer Outcome Not Healed -Ulcer Cleansing Rinsed/ Irrigated with Saline -Foul Odor after Cleansing No -Bioengineered Tissue No -Bleeding Controlled with Pressure -Treatment Response Procedure Tolerated Well -Offloading No -Debridement - Muscle / Fascia, 1st Yes 20sq cm 6. L medial ankle -Time 11:24 -Correct Patient Yes -Correct Side, Site, Position Yes -Correct Procedure Yes -Procedure Performed Yes -Type of Procedure Debridement -Clinical Debridement Muscle / Fascia -Tissue Removed Muscle -Post Debridement (cm) - Length 2.0 -Post Debridement (cm) - Width 0.3 -Post Debridement (cm) - Depth 0.7 -Total Square (Post) (cm) 0.60 -Area of Debridement (cm) - Length 2.0 -Area of Debridement (cm) - Width 0.3 -Total Square (Area) (cm) 0.60 -Tunneling No -Undermining/Tunneling No -Circular Undermining No -Wound/Ulcer Outcome Not Healed -Ulcer Cleansing Rinsed/ Irrigated with Saline -Foul Odor after Cleansing No -Bioengineered Tissue No -Bleeding Controlled with Pressure -Treatment Response Procedure Tolerated Well -Offloading No -Debridement - Muscle / Fascia, 1st No 20sq cm Pain Scale: 0-10 Numeric Is Patient Pain Free? Yes - Nurse 3 - General Ulcer D/C NN Start: 09/13/23 10:02 Freq: Status: Active Protocol: Activity Type Activity Date Activity User E-sign Co-sign Detail Recorded Client Recorded Date Recorded By Document 09/13/23 11:25 [id number] 09/13/23 11:26 JF 09/13/23 11:25 Wound Care Center Nurse 3 7. L lateral ankle -Ulcer Cleansing Rinsed/ Irrigated with Saline -Foul Odor after Cleansing No -Other Dressing 0.25% dakin's -Primary Dressing Covered/Secured with Dry Gauze 6. L medial ankle -Ulcer Cleansing Rinsed/ Irrigated with Saline -Foul Odor after Cleansing No -Other Dressing 0.25 Dakin's -Primary Dressing Covered/Secured with Dry Gauze Left -Lotion applied to leg before Yes compression wrap -Multi-Layered Wrap Application Multi-Layer Comp - Left ($) Pain Scale: 0-10 Numeric Is Patient Pain Free? Yes WC - Visit Discharge Discharge Condition Stable Ambulatory Status Wheelchair Transportation Private Auto Accompanied by father Medication Reconcilliation completed & Yes provided to patient/care provider Clinical Summary of Care Provided Yes Assessment/Plan Assessment/Plan (1) Osteomyelitis of ankle, left, acute: CODE(S): M86.172 - Other acute osteomyelitis, left ankle and foot PLAN: Exam performed Patient on IV meropenem via PICC line per infectious disease for enterococcal and pseudomonal infection left lower extremity with bone involvement Patient is status post Charcot reconstruction. This is a limb salvage case Today left lower extremity wound to lateral ankle was debrided down to and including level of muscle excisionally using a 5 mm dermal curette without incident. No anesthesia due to neuropathy. Hemostasis obtained with light compression. Patient tolerated procedure well. Pre and postdebridement measurements documented nursing notes. Patient will receive 3 times a week wound packing with Dakin's wet-to-dry and overlying multilayer compression wrap. Wound dressing in the wound care center followed by 2 dressings to performed by home health care Patient follows up weekly Patient nonweightbearing left lower extremity Patient received HBO therapy 2 times, wound significantly improved today. Blood sugar well-controlled (2) Charcot foot due to diabetes mellitus: CODE(S): E11.610 - 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 arthropathy (3) Abscess of bursa, left ankle and foot: CODE(S): M71.072 - Abscess of bursa, left ankle and foot (4) Cellulitis of left lower limb: CODE(S): L03.116 - Cellulitis of left lower limb (5) Non-pressure chronic ulcer of left 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: CODE(S): L97.322 - Non-pressure chronic ulcer of left 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 (6) Type 2 diabetes mellitus with diabetic polyneuropathy: CODE(S): E11.42 - Type 2 diabetes mellitus with diabetic polyneuropathy QUALIFIERS: Diabetes mellitus salvage determiner insulin use: without salvage determiner use Qualified Code(s): E11.42 - Type 2 diabetes mellitus with diabetic polyneuropathy 09/20/23 1025 <Electronically signed by Jordi Perkins DPM> Cosigner Signature (if applicable): CC: ~ Signed [facility] Work Phone: [phone]) 239-396002-12-2024 Progress note Author [place] [facility] September 19, 2023 2:12pm Note Date/Time September 19, 2023 1:10pm [facility] [facility] [address] [place] [id number] Progress Note - Wound Care HBO 09/19/23 1308 MR#: [id number] Acct: [id number] Name: SNEHA WEI Rep #:[id number] : 1980 43 From: Saba sanabria NP PHYSICAL GEOGRAPHER-C PCP: Dr. Liliane Epps, DO Status:REG R Location: History of Present Illness Date of Service: 09/19/23 Chief Complaint: Diabetic left foot infection with gas gangrene and osteomyelitis; Li grade 3 diabetic foot infection. History of Wound: This is a 43-year-old male who has a history of diabetic foot pathology and infections. On July 15, 2023, the patient underwent reconstruction of a left Charcot foot deformity by means of a left ankle arthrodesis, subtalar joint arthrodesis, midfoot osteotomy with percutaneous pinning, and application of a left lower extremity splint. He subsequently developed left foot and ankle abscess with full-thickness wounds and osteomyelitis of the left ankle, and on September 01, 2023, he underwent incision and drainage of an abscess down to bone with wound site debridement and wound bed preparation for delayed skin graft application. With respect to his osteomyelitis, the patient is receiving meropenem 3 times daily intravenously for Enterococcus and Pseudomonas infection by means of a PICC line which is located in his left upper arm. He is receiving home health care. Wound care isby means of packing with Dakin's moist to dry dressings, as his surgical wound is only partially closed. A multi layer compression wrap is being used to help minimize swelling. The patient is non-weightbearing. He is felt to be in a limb threatening situation, and has been referred for evaluation as a prelude toimplementation of hyperbaric oxygen therapy for a Li grade 3 diabetic foot wound with osteomyelitis. A thorough review of systems has been discussed with the patient. He has no history of pulmonary or otic barotrauma. In fact, the patient has undergone hyperbaric oxygen therapy sessions in the past, approximately 10 years ago, for a diabetic right foot infection. He tolerated hyperbaric oxygen therapy at thattime without incident. 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 His history is negative for seizures and seizure disorder. Pulmonary history is negative. Cardiac history is negative. The patient has no history of renal disease. He has no history of anemia or other hemopoietic abnormalities. The patient has no endocrine problems. He is not a smoker. Recent chest x-ray reveals moderate lung volumes. Increased AP dimension of thechest. Subsegmental atelectasis suggested in the left lung base. No definite inflammatory infiltrates. No effusions. Mild cardiac enlargement. Normal mediastinum and michelle. Normal visualized pulmonary arteries. Normal visualized aortic arch and descending thoracic aorta. An EKG reveals normal sinus rhythm and is interpreted as a normal EKG. Laboratory results from September 05, 2023, are as follows: Glucose 107, BUN 24, creatinine 0.89, calcium 9.6, sodium 141, potassium 3.9, chloride 108, white blood count 5.4, hemoglobin 10.5, hematocrit 34.3, platelets 261,000, hemoglobin A1c 6.0, serum prealbumin 19.9. Subjective Subjective Progress: Today is the 2nd treatment of hyperbaric oxygen therapy. The patient is scheduled for 30 treatments total. Tolerance of hyperbaric oxygen therapy: Hyperbaric oxygen treatment was providedas per the facility's protocol at 2.0 NEIL in 100% oxygen for 90 minutes without air breaks. The patient tolerated hyperbaric oxygen well, without complicationsor complaints. Upon emergence of the hyperbaric chamber, the patient's vital signs remained stable. Blood sugar levels documented by nursing. Objective Data Objective Data Vital Signs: Vital Signs Temp Pulse Resp BP O2 Flow Rate 96.2 F L 91 18 135/83 H 99 09/16/23 11:47 09/16/23 11:47 09/16/23 11:47 09/16/23 11:47 09/08/23 00:33 Oxygen Flow Rate (L/min) 99 Weight: 250 lb Body Mass Index (BMI) 33.9 Lab / Micro Data Labs: Laboratory Results - last 24 hr 09/19/23 11:58: POC Glucose 167 H Exam Physical Exam Const alert General Appearance: cooperative HEENT normocephalic Chest inspection of chest normal Resp normal respiratory effort and normal air movement Effort and Inspection: able to speak in complete sentences; Negative for respiratory distress Cardio regular rate and regular rhythm Neuro Speech: speech normal Assessment/Plan Assessment/Plan (1) Osteomyelitis of ankle or foot, left, acute: CODE(S): M86.172 - Other acute osteomyelitis, left ankle and foot (2) Osteomyelitis of ankle, left, acute: CODE(S): M86.172 - Other acute osteomyelitis, left ankle and foot (3) Abscess of bursa, left ankle and foot: CODE(S): M71.072 - Abscess of bursa, left ankle and foot (4) Cellulitis of left lower limb: CODE(S): L03.116 - Cellulitis of left lower limb (5) Charcot foot due to diabetes mellitus: CODE(S): E11.610 - 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 arthropathy (6) Non-pressure chronic ulcer of left 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: CODE(S): L97.322 - Non-pressure chronic ulcer of left 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 (7) Other acute postprocedural pain: CODE(S): G89.18 - Other acute postprocedural pain (8) Type 2 diabetes mellitus with diabetic polyneuropathy: CODE(S): E11.42 - Type 2 diabetes mellitus with diabetic polyneuropathy QUALIFIERS: Diabetes mellitus nursing home insulin use: without salvage determiner use Qualified Code(s): E11.42 - Type 2 diabetes mellitus with diabetic polyneuropathy (9) Non-pressure chronic ulcer of other part of left foot with necrosis of muscle: CODE(S): L97.523 - Non-pressure chronic ulcer of other part of left foot with necrosis of muscle (10) Gas gangrene of foot: CODE(S): A48.0 - Gas gangrene (11) Diabetic infection of left foot: CODE(S): E11.628 - Type 2 diabetes mellitus with other skin complications;L08.9 - Local infection of the skin and subcutaneous tissue, unspecified (12) Non-pressure chronic ulcer of other part of left foot with necrosis of bone: CODE(S): L97.524 - Non-pressure chronic ulcer of other part of left foot with necrosis of bone (13) Non-pressure chronic ulcer of other part of left foot with necrosis of muscle: CODE(S): L97.523 - Non-pressure chronic ulcer of other part of left foot with necrosis of muscle (14) Cellulitis: CODE(S): L03.90 - Cellulitis, unspecified QUALIFIERS: Site of cellulitis: extremity Site of cellulitis of extremity: lower extremity Laterality: left Qualified Code(s): L03.116 - Cellulitis of left lower limb (15) Hypertension: CODE(S): I10 - Essential (primary) hypertension QUALIFIERS: Hypertension type: primary hypertension Qualified Code(s): I10 - Essential (primary) hypertension PLAN: Plan The patient appears to be tolerating hyperbaric oxygen therapy well, which will be continued as per their medical treatment plan. 09/19/23 1412 <Electronically signed by Saba Park NP, NP-C> Cosigner Signature (if applicable): CC: ~ Signed [facility] Work Phone: 1(774) 137-545402-09-2024 Progress note Author Mercedes Mejia [facility] September 16, 2023 12:38pm Note Date/Time September 16, 2023 1 2:38pm [facility] [address] [place] [address] Progress Note - Wound Care HBO 09/16/23 1235 MR#: [id number] Acct: [id number] Name: SNEHA WEI Jr. Rep #:[id number] : 1980 43 From: Mercedes Mejia DO PCP: Dr. Liliane Epps, DO Status:REG RCR Location: History of Present Illness Date of Service: 09/16/23 Chief Complaint: Diabetic left foot infection with gas gangrene and osteomyelitis; Li grade 3 diabetic foot infection. History of Wound: This is a 43-year-old male who has a history of diabetic foot pathology and infections. On July 15, 2023, the patient underwent reconstruction of a left Charcot foot deformity by means of a left ankle arthrodesis, subtalar joint arthrodesis, midfoot osteotomy with percutaneous pinning, and application of a left lower extremity splint. He subsequently developed left foot and ankle abscess with full-thickness wounds and osteomyelitis of the left ankle, and on September 01, 2023, he underwent incision and drainage of an abscess down to bone with wound site debridement and wound bed preparation for delayed skin graft application. With respect to his osteomyelitis, the patient is receiving meropenem 3 times daily intravenously for Enterococcus and Pseudomonas infection by means of a PICC line which is located in his left upper arm. He is receiving home health care. Wound care isby means of packing with Dakin's moist to dry dressings, as his surgical wound is only partially closed. A multi layer compression wrap is being used to help minimize swelling. The patient is non-weightbearing. He is felt to be in a limb threatening situation, and has been referred for evaluation as a prelude toimplementation of hyperbaric oxygen therapy for a Li grade 3 diabetic foot wound with osteomyelitis. A thorough review of systems has been discussed with the patient. He has no history of pulmonary or otic barotrauma. In fact, the patient has undergone hyperbaric oxygen therapy sessions in the past, approximately 10 years ago, for a diabetic right foot infection. He tolerated hyperbaric oxygen therapy at thattime without incident. 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 His history is negative for seizures and seizure disorder. Pulmonary history is negative. Cardiac history is negative. The patient has no history of renal disease. He has no history of anemia or other hemopoietic abnormalities. The patient has no endocrine problems. He is not a smoker. Recent chest x-ray reveals moderate lung volumes. Increased AP dimension of thechest. Subsegmental atelectasis suggested in the left lung base. No definite inflammatory infiltrates. No effusions. Mild cardiac enlargement. Normal mediastinum and michelle. Normal visualized pulmonary arteries. Normal visualized aortic arch and descending thoracic aorta. An EKG reveals normal sinus rhythm and is interpreted as a normal EKG. Laboratory results from September 05, 2023, are as follows: Glucose 107, BUN 24, creatinine 0.89, calcium 9.6, sodium 141, potassium 3.9, chloride 108, white blood count 5.4, hemoglobin 10.5, hematocrit 34.3, platelets 261,000, hemoglobin A1c 6.0, serum prealbumin 19.9. Subjective Subjective Progress: Today is the 1st treatment of hyperbaric oxygen therapy. The patientis scheduled for 30 treatments total. Tolerance of hyperbaric oxygen therapy: Hyperbaric oxygen treatment was providedas per the facility's protocol at 2.0 NEIL in 100% oxygen for 90 minutes without air breaks. The patient tolerated hyperbaric oxygen well, without complicationsor complaints. Upon emergence of the hyperbaric chamber, the patient's vital signs remained stable. Inital Blood sugar was 133 and post reading was 125. Objective Data Objective Data Vital Signs: Vital Signs Temp Pulse Resp BP O2 Flow Rate 96.2 F L 91 18 135/83 H 99 09/16/23 11:47 09/16/23 11:47 09/16/23 11:47 09/16/23 11:47 09/08/23 00:33 Oxygen Flow Rate (L/min) 99 Weight: 113.398 kg Body Mass Index (BMI) 33.9 Lab / Micro Data Labs: Laboratory Results - last 24 hr 09/15/23 12:12: POC Glucose 115 H 09/15/23 12:30: POC Glucose 106 09/16/23 08:49: POC Glucose 127 H 09/16/23 09:03: POC Glucose 133 H 09/16/23 11:08: POC Glucose 125 H Exam Physical Exam Const alert, oriented x3 and no apparent distress Psych mental status grossly normal, thought process normal, cooperative, affect normaland speech normal Assessment/Plan Assessment/Plan (1) Osteomyelitis of ankle or foot, left, acute: CODE(S): M86.172 - Other acute osteomyelitis, left ankle and foot (2) Osteomyelitis of ankle, left, acute: CODE(S): M86.172 - Other acute osteomyelitis, left ankle and foot (3) Abscess of bursa, left ankle and foot: CODE(S): M71.072 - Abscess of bursa, left ankle and foot (4) Cellulitis of left lower limb: CODE(S): L03.116 - Cellulitis of left lower limb (5) Charcot foot due to diabetes mellitus: CODE(S): E11.610 - 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 arthropathy (6) Non-pressure chronic ulcer of left 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: CODE(S): L97.322 - Non-pressure chronic ulcer of left 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 (7) Other acute postprocedural pain: CODE(S): G89.18 - Other acute postprocedural pain (8) Type 2 diabetes mellitus with diabetic polyneuropathy: CODE(S): E11.42 - Type 2 diabetes mellitus with diabetic polyneuropathy QUALIFIERS: Diabetes mellitus salvage determiner insulin use: without salvage determiner use Qualified Code(s): E11.42 - Type 2 diabetes mellitus with diabetic polyneuropathy (9) Non-pressure chronic ulcer of other part of left foot with necrosis of muscle: CODE(S): L97.523 - Non-pressure chronic ulcer of other part of left foot with necrosis of muscle (10) Gas gangrene of foot: CODE(S): A48.0 - Gas gangrene (11) Diabetic infection of left foot: CODE(S): E11.628 - Type 2 diabetes mellitus with other skin complications;L08.9 - Local infection of the skin and subcutaneous tissue, unspecified (12) Non-pressure chronic ulcer of other part of left foot with necrosis of bone: CODE(S): L97.524 - Non-pressure chronic ulcer of other part of left foot with necrosis of bone (13) Non-pressure chronic ulcer of other part of left foot with necrosis of muscle: CODE(S): L97.523 - Non-pressure chronic ulcer of other part of left foot with necrosis of muscle (14) Cellulitis: CODE(S): L03.90 - Cellulitis, unspecified QUALIFIERS: Site of cellulitis: extremity Site of cellulitis of extremity: lower extremity Laterality: left Qualified Code(s): L03.116 - Cellulitis of left lower limb (15) Hypertension: CODE(S): I10 - Essential (primary) hypertension QUALIFIERS: Hypertension type: primary hypertension Qualified Code(s): I10 - Essential (primary) hypertension PLAN: Plan The patient appears to be tolerating hyperbaric oxygen therapy well, which will be continued as per their medical treatment plan. 09/16/23 1238 <Electronically signed by Mercedes Mejia DO> Cosigner Signature (if applicable): CC: ~ Signed [facility] Work Phone: 1(372) 989-936302-06-2024 History and physical note Author Barbara Ray [facility] September 13, 2023 2:45pm Note Date/Time September 13, 2023 2 :08pm [facility] [address] [facility] [place] [address] H&P Exam - Wound Care 09/13/23 1406 MR#: [id number] Acct: [id number] Name: SNEHA WEI Jr. Rep #:[id number] : 1980 43 From: Barbara Drake PCP: Dr. Liliane Epps, Status:REG RCR Location: ADDENDUM by Dr. Barbara Ray MD on 09/13/23 at 1445 Addendum The patient has been advised to optimize his glycemic control. Collaboration with his primary care physician has been recommended. Debridement and removal of devitalized tissue has been performed by Dr. Perkins. Patient has been advised to optimize nutritional intake. There are no factors in the patient's past history, and the consideration of the patient's age, to suggest the presence of ischemic arterial disease. 09/13/23 1445<Electronically signed by Barbara Ray MD> Cosigner Signature (if applicable): cc: ~* Signed History of Present Illness Date of Service: 09/13/23 Chief Complaint: Diabetic left foot infection with gas gangrene and osteomyelitis; Li grade 3 diabetic foot infection. History of Wound: This is a 43-year-old male who has a history of diabetic foot pathology and infections. On July 15, 2023, the patient underwent reconstruction of a left Charcot foot deformity by means of a left ankle arthrodesis, subtalar joint arthrodesis, midfoot osteotomy with percutaneous pinning,and application of a left lower extremity splint. He subsequently developed left foot and ankle abscess with full-thickness wounds and osteomyelitis of the left ankle, and on September 01, 2023, he underwent incision and drainage of an abscess down to bone with wound site debridement and wound bed preparation for delayed skin graft application. With respect to his osteomyelitis, the patient is receiving meropenem 3 times daily intravenously for Enterococcus and Pseudomonas infection by means of a PICC line which is located in his left upperarm. He is receiving home health care. Wound care is by means of packing with Dakin's moist to dry dressings, as his surgical wound is only partially closed. A multi layer compression wrap is being used to help minimize swelling. The patient is non-weightbearing. He is felt to be in a limb threatening situation,and has been referred for evaluation as a prelude to implementation of hyperbaric oxygen therapy for a Li grade 3 diabetic foot wound with osteomyelitis. A thorough review of systems has been discussed with the patient. He has no history of pulmonary or otic barotrauma. In fact, the patient has undergone hyperbaric oxygen therapy sessions in the past, approximately 10 years ago, for a diabetic right foot infection. He tolerated hyperbaric oxygen therapy at thattime without incident. 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 His history is negative for seizures and seizure disorder. Pulmonary history is negative. Cardiac history is negative. The patient has no history of renal disease. He has no history of anemia or other hemopoietic abnormalities. The patient has no endocrine problems. He is not a smoker. Recent chest x-ray reveals moderate lung volumes. Increased AP dimension of thechest. Subsegmental atelectasis suggested in the left lung base. No definite inflammatory infiltrates. No effusions. Mild cardiac enlargement. Normal mediastinum and michelle. Normal visualized pulmonary arteries. Normal visualized aortic arch and descending thoracic aorta. An EKG reveals normal sinus rhythm and is interpreted as a normal EKG. Laboratory results from September 05, 2023, are as follows: Glucose 107, BUN 24, creatinine 0.89, calcium 9.6, sodium 141, potassium 3.9, chloride 108, white blood count 5.4, hemoglobin 10.5, hematocrit 34.3, platelets 261,000, hemoglobin A1c 6.0, serum prealbumin 19.9. [facility] Medical History Dietary restriction Gas gangrene of foot History of edema Hypertension Hypertension Osteomyelitis of ankle or foot, left, acute Type 2 diabetes mellitus with diabetic polyneuropathy Wears glasses Home Medications metformin 1,000 mg tablet 1,000 mg PO BID diabetes 11/14/21 [History Last Taken 08/30/23] calcium citrate 200 mg (950 mg) tablet 200 mg PO DAILY SUPPLEMENT 11/24/21 [History Last Taken 08/30/23] multivitamin 1 tab PO DAILY SUPPLEMENT 11/24/21 [History Last Taken 08/30/23] losartan 25 mg tablet 25 mg PO DAILY BLOOD PRESSURE 09/15/22 [History Last Taken 08/30/23] semaglutide 14 mg tablet (Rybelsus) 14 mg PO DAILY DIABETES 07/06/23 [History Last Taken 08/30/23] ascorbic acid (vitamin C) 1,000 mg tablet,extended release (C Complex) 1,000 mg PO DAILY SUPPLEMENT 08/30/23 [History Last Taken 08/30/23] omega 5-ozy-btf-fish oil 300 mg-1,000 mg capsule (Fish Oil) 2 cap PO DAILY SUPPLEMENT 08/30/23 [History Last Taken 08/30/23] pravastatin 80 mg tablet 80 mg PO QHS CHOLESTEROL 08/30/23 [History Last Taken 08/29/23] meropenem 1 gram intravenous solution 1 g IV Q8 38 days #114 ea 09/05/23 [Rx Last Taken Unknown] Allergy/AdvReac Type Severity Reaction Status Date / Time Penicillins [PCN] Allergy Rash Verified 08/30/23 10:45 Surgical History Hx of eye surgery Hx of foot surgery Hx of foot surgery Social History Smoking Status: Never smoker Vital Signs Vital Signs Vital Signs: 09/13/23 10:02 Temperature 96 F L Temperature Source Temporal Pulse Rate 93 Respiratory Rate 18 Blood Pressure 122/68 H Blood Pressure Mean 86 Blood Pressure Source Monitor Blood Pressure Position Semi-Fowlers Blood Pressure Location Left Arm Weight Weight: 250 lb Body Mass Index (BMI) 33.9 Physical Exam Const alert, oriented x3, no apparent distress and well nourished Constitutional Narrative: The patient is mildly obese. He is alert, conversant, and appropriate. General Appearance: cooperative, comfortable, well kempt and well developed Orientation / Consciousness: awake, oriented to person, oriented to place and oriented to time HEENT normocephalic and head/scalp atraumatic Head and Scalp: normal to inspection, normocephalic and atraumatic External Ear: external ears normal Eyes PERRL and EOMs intact bilaterally General Eye: normal appearance of both eyes Neck full ROM General: normal visual inspection Resp normal respiratory effort, normal air movement, no retractions, no use of accessory muscles and clear to auscultation bilaterally Effort and Inspection: able to speak in complete sentences and symmetric chest movement Cardio regular rate, regular rhythm, S1 normal heart sound, S2 normal heart sound and no murmurs Extremity no calf tenderness General Extremity: Negative for clubbing or cyanosis Skin Wound Narrative: A wound dressing engulfed the patient's left foot. A brace is noted on the right foot and ankle. Neuro oriented x3, CN's II-XII intact bilaterally, moves all extremities and no focal motor deficits Sensorium / Orientation: awake, alert, oriented to person, oriented to place and oriented to time Psych Appearance: grossly normal and appropriate Attitude: calm Activity / Motor Behavior: appropriate eye contact Speech: normal speech Mood & Affect: euthymic mood Thought Process: normal thought process Thought Content: normal thought content Attention / Concentration: attention grossly intact Debridement Note Debridement Note Post-Debridement Measurements and Additional Note: Post-Debridement Measurements/Treatment - Nurse 1 - General Ulcer Assessment Start: 09/13/23 10:02 Freq: Status: Active Protocol: GWEN Activity Type Activity Date Activity User E-sign Co-sign Detail Recorded Client Recorded Date Recorded By Document 09/13/23 10:02 Desktop 09/13/23 10:21 09/13/23 10:02 - Today's Visit Information Type of service Follow-up Visit (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 ) Arrival Mode Ambulatory Transfer Assistance None Patient Identification Verified (Name & Yes ) Patient Requires Transmission-Based No Precautions Height and Weight Body Mass Index (BMI) 33.9 BMI Classification Obese Vital Signs Temperature (97.8 F-99.1 F) 96 F L Temperature Source Temporal Pulse Rate (60-100) 93 Pulse Location Monitor Respiratory Rate (12-18) 18 Respiratory rate source Observation Blood Pressure (90/60-120/80) 122/68 H Blood Pressure Mean 86 Source Monitor Position Semi-Fowlers Blood Pressure Location Left Arm History Since Last Visit- (Skip if this is Patient's initial visit) Have you changed medications since your No last visit? Any new allergies or adverse reactions No Had a fall/change in ADL's that may No increase risk of falls Signs or symptoms of abuse and/or No neglect since last visit Have you been in the hospital since your No last visit? Has dressing in place as prescribed Yes Has compression in place as prescribed Yes Has offloadiing in place as prescribed Yes Experienced any changes in pain level or No management Pain Scale: 0-10 Numeric Is Patient Pain Free? Yes WC - Nurse 1 - General Ulcer Measurement Start: 09/13/23 10:02 Freq: Status: Active Protocol: Activity Type Activity Date Activity User E-sign Co-sign Detail Recorded Client Recorded Date Recorded By Document 09/13/23 10:02 RB Desktop 09/13/23 10:21 RB 09/13/23 10:02 Wound Center Nurse 1 7. L lateral ankle -Combined with other wound No -Current Size (cm) - Length 3 -Current Size (cm) - Width 1 -Current Size (cm) - Depth 2.5 -Total Square Cm 3 -Tunneling No -Undermining/Tunneling No -Circular Undermining No -Exudate Amt Medium -Exudate Type Serosanguineous -Wound Margin Distinct, Outline Attached -Granulation Amt Medium (34-66%) -Granulation Quality [employer] -Slough/Fibrin Yes -Necrosis Amt Medium (34-66%) -Necrotic Tissue Type Adherent Slough -Structure Exposed N/A -Texture ([place]-wound Skin Appearance) Assessed -Moisture ([place]-wound Skin Appearance) Assessed -Color ([place]-wound Skin Appearance) Assessed -Temperature ([place]-wound Skin No Abnormality Appearance) (Pt Warm) -Tenderness on Palpation ([place]-wound No Skin Appearance) -Ulcer Cleansing Wound Cleanser -Foul Odor after Cleansing No -Anesthetic Used 4% Lidocaine Solution 6. L medial ankle -Combined with other wound No -Current Size (cm) - Length 0.1 -Current Size (cm) - Width 0.1 -Current Size (cm) - Depth 0.1 -Total Square Cm 0.01 -Tunneling No -Undermining/Tunneling No -Circular Undermining No -Exudate Amt Medium -Exudate Type Serosanguineous -Wound Margin Distinct, Outline Attached -Granulation Amt Medium (34-66%) -Granulation Quality [employer] -Slough/Fibrin Yes -Necrosis Amt Medium (34-66%) -Necrotic Tissue Type Adherent Slough -Structure Exposed N/A -Texture ([place]-wound Skin Appearance) Assessed -Moisture ([place]-wound Skin Appearance) Assessed -Color ([place]-wound Skin Appearance) Assessed -Temperature ([place]-wound Skin No Abnormality Appearance) (Pt Warm) -Tenderness on Palpation ([place]-wound No Skin Appearance) -Ulcer Cleansing Wound Cleanser -Foul Odor after Cleansing No Lower Limb Edema Present Yes Left Calf (cm) 34.5 Left Ankle (cm) 30 WC - Nurse 2 - General Ulcer CM Notes Start: 09/13/23 10:02 Freq: Status: Active Protocol: Activity Type Activity Date Activity User E-sign Co-sign Detail Recorded Client Recorded Date Recorded By Document 09/13/23 11:23 BRIAN [id number] 09/13/23 11:24 BRIAN 09/13/23 11:23 Wound Center Nurse 2 7. L lateral ankle -Time 11:23 -Correct Patient Yes -Correct Side, Site, Position Yes -Correct Procedure Yes -Procedure Performed Yes -Type of Procedure Debridement -Clinical Debridement Muscle / Fascia -Tissue Removed Muscle -Post Debridement (cm) - Length 4.9 -Post Debridement (cm) - Width 1.0 -Post Debridement (cm) - Depth 3.6 -Total Square (Post) (cm) 4.90 -Area of Debridement (cm) - Length 4.9 -Area of Debridement (cm) - Width 1.0 -Total Square (Area) (cm) 4.90 -Tunneling No -Undermining/Tunneling No -Circular Undermining No -Wound/Ulcer Outcome Not Healed -Ulcer Cleansing Rinsed/ Irrigated with Saline -Foul Odor after Cleansing No -Bioengineered Tissue No -Bleeding Controlled with Pressure -Treatment Response Procedure Tolerated Well -Offloading No -Debridement - Muscle / Fascia, 1st Yes 20sq cm 6. L medial ankle -Time 11:24 -Correct Patient Yes -Correct Side, Site, Position Yes -Correct Procedure Yes -Procedure Performed Yes -Type of Procedure Debridement -Clinical Debridement Muscle / Fascia -Tissue Removed Muscle -Post Debridement (cm) - Length 2.0 -Post Debridement (cm) - Width 0.3 -Post Debridement (cm) - Depth 0.7 -Total Square (Post) (cm) 0.60 -Area of Debridement (cm) - Length 2.0 -Area of Debridement (cm) - Width 0.3 -Total Square (Area) (cm) 0.60 -Tunneling No -Undermining/Tunneling No -Circular Undermining No -Wound/Ulcer Outcome Not Healed -Ulcer Cleansing Rinsed/ Irrigated with Saline -Foul Odor after Cleansing No -Bioengineered Tissue No -Bleeding Controlled with Pressure -Treatment Response Procedure Tolerated Well -Offloading No -Debridement - Muscle / Fascia, 1st No 20sq cm Pain Scale: 0-10 Numeric Is Patient Pain Free? Yes - Nurse 3 - General Ulcer D/C NN Start: 09/13/23 10:02 Freq: Status: Active Protocol: Activity Type Activity Date Activity User E-sign Co-sign Detail Recorded Client Recorded Date Recorded By Document 09/13/23 11:25 BRIAN [id number] 09/13/23 11:26 BRIAN 09/13/23 11:25 Wound Care Center Nurse 3 7. L lateral ankle -Ulcer Cleansing Rinsed/ Irrigated with Saline -Foul Odor after Cleansing No -Other Dressing 0.25% dakin's -Primary Dressing Covered/Secured with Dry Gauze 6. L medial ankle -Ulcer Cleansing Rinsed/ Irrigated with Saline -Foul Odor after Cleansing No -Other Dressing 0.25 Dakin's -Primary Dressing Covered/Secured with Dry Gauze Left -Lotion applied to leg before Yes compression wrap -Multi-Layered Wrap Application Multi-Layer Comp - Left ($) Pain Scale: 0-10 Numeric Is Patient Pain Free? Yes - Visit Discharge Discharge Condition Stable Ambulatory Status Wheelchair Transportation Private Auto Accompanied by father Medication Reconcilliation completed & Yes provided to patient/care provider Clinical Summary of Care Provided Yes Assessment/Plan Assessment/Plan (1) Osteomyelitis of ankle or foot, left, acute: CODE(S): M86.172 - Other acute osteomyelitis, left ankle and foot (2) Osteomyelitis of ankle, left, acute: CODE(S): M86.172 - Other acute osteomyelitis, left ankle and foot (3) Abscess of bursa, left ankle and foot: CODE(S): M71.072 - Abscess of bursa, left ankle and foot (4) Cellulitis of left lower limb: CODE(S): L03.116 - Cellulitis of left lower limb (5) Charcot foot due to diabetes mellitus: CODE(S): E11.610 - 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 arthropathy (6) Non-pressure chronic ulcer of left 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: CODE(S): L97.322 - Non-pressure chronic ulcer of left 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 (7) Other acute postprocedural pain: CODE(S): G89.18 - Other acute postprocedural pain (8) Type 2 diabetes mellitus with diabetic polyneuropathy: CODE(S): E11.42 - Type 2 diabetes mellitus with diabetic polyneuropathy QUALIFIERS: Diabetes mellitus nursing home insulin use: without nursing home use Qualified Code(s): E11.42 - Type 2 diabetes mellitus with diabetic polyneuropathy (9) Non-pressure chronic ulcer of other part of left foot with necrosis of muscle: CODE(S): L97.523 - Non-pressure chronic ulcer of other part of left foot with necrosis of muscle (10) Gas gangrene of foot: CODE(S): A48.0 - Gas gangrene (11) Diabetic infection of left foot: CODE(S): E11.628 - Type 2 diabetes mellitus with other skin complications; L08.9 - Local infection of the skin and subcutaneous tissue, unspecified (12) Non-pressure chronic ulcer of other part of left foot with necrosis of bone: CODE(S): L97.524 - Non-pressure chronic ulcer of other part of left foot with necrosis of bone (13) Non-pressure chronic ulcer of other part of left foot with necrosis of muscle: CODE(S): L97.523 - Non-pressure chronic ulcer of other part of left foot with necrosis of muscle (14) Cellulitis: CODE(S): L03.90 - Cellulitis, unspecified QUALIFIERS: Site of cellulitis: extremity Site of cellulitis of extremity: lower extremity Laterality: left Qualified Code(s): L03.116 - Cellulitis of left lower limb (15) Hypertension: CODE(S): I10 - Essential (primary) hypertension PLAN: Plan This is a 43-year-old male with a documented Li grade 3 diabetic left foot infection. He is currently receiving intravenous antibiotics by means of a PICC line inserted in his upper left arm. He is a candidate for hyperbaric oxygen therapy. He appears to meet the indications for such. A thorough physical evaluation and review of systems has been undertaken, and there appear to be no contraindications to proceeding with hyperbaric oxygen therapy. The patient has previously undergone hyperbaric oxygen therapy in the past, and appears to be acquainted with its indications and risks. A thorough discussion has been undertaken with the patient in this regard. The patient has been advised of the expected benefits. The potential risks have been described in detail. These indications and risks will again be detailed before the patient begins hyperbaric oxygen therapy. Patient has indicated his desire to proceed. We are to begin hyperbaric oxygen treatments at 2 krzysztof for 90 minutes with no air breaks. A total of 30 such hyperbaric oxygen therapy sessions will be initiated. The patient will be evaluated serially as to his response to hyperbaric oxygen therapy. He will remain under the care of Dr. Jordi Perkins, podiatric specialist, we will monitor the status of the patient's diabetic left foot wound, and render appropriate care on a continuing basis. Total time: 46 minutes 09/13/23 1436 <Electronically signed by Barbara Ray MD> Cosigner Signature (if applicable): CC: ~ Signed [facility] Work Phone: 1(538) 269-158202-06-2024 Progress note Author Jordi Perkins [facility] September 13, 2023 10:37am Note Date/Time September 13, 2023 1 0:37am [facility] [address] [place] [address] Progress Note - Wound Care 09/13/23 1036 MR#: [id number] Acct: [id number] Name: ERIBERTOSNEHA Jr. Rep #:[id number] : 1980 43 From: Jordi Perkins DPM PCP: Dr. Liliane Epps, DO Status:REG RCR Location: History of Present Illness Date of Service: 09/13/23 Chief Complaint: Diabetic left foot infection with gas gangrene and osteomyelitis. History of Wound: 43-year-old male status post left ankle incision and drainage of abscess on 09/01/2023. Patient had abscess and osteomyelitis growing Enterococcus and Pseudomonas. Patient follow-up today. Denies constitutional symptoms. Patient has PICC line receiving meropenem 3 times a day for the next 6 weeks. Patient has home health care. No other complaints. Objective Data Objective Data Vital Signs: Vital Signs Temp Pulse Resp BP O2 Flow Rate 96 F L 93 18 122/68 H 99 09/13/23 10:02 09/13/23 10:02 09/13/23 10:02 09/13/23 10:02 09/08/23 00:33 Oxygen Flow Rate (L/min) 99 Weight: 113.398 kg Body Mass Index (BMI) 33.9 Physical Exam Narrative Neurovascular status unchanged Full-thickness wounds to medial ankle healing well stable granular base no signsof infection. Lateral ankle wound down to the level of bone noted with intact vessel loop closure allowing for partial wound closure. There is a residual wound. Pre and postdebridement measurements documented in notes nursing notes. This was debrided down to level of muscle today. No residual abscess noted. Resolved acute signs of infection. No signs of DVT. Debridement Note Debridement Note Post-Debridement Measurements and Additional Note: Post-Debridement Measurements/Treatment - Nurse 1 - General Ulcer Assessment Start: 09/13/23 10:02 Freq: Status: Active Protocol: GWEN Activity Type Activity Date Activity User E-sign Co-sign Detail Recorded Client Recorded Date Recorded By Document 09/13/23 10:02 Desktop 09/13/23 10:21 RB 09/13/23 10:02 - Today's Visit Information Type of service Follow-up Visit (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 ) Arrival Mode Ambulatory Transfer Assistance None Patient Identification Verified (Name & Yes ) Patient Requires Transmission-Based No Precautions Height and Weight Body Mass Index (BMI) 33.9 BMI Classification Obese Vital Signs Temperature (97.8 F-99.1 F) 96 F L Temperature Source Temporal Pulse Rate (60-100) 93 Pulse Location Monitor Respiratory Rate (12-18) 18 Respiratory rate source Observation Blood Pressure (90/60-120/80) 122/68 H Blood Pressure Mean (mm Hg) 86 Source Monitor Position Semi-Fowlers Blood Pressure Location Left Arm History Since Last Visit- (Skip if this is Patient's initial visit) Have you changed medications since your No last visit? Any new allergies or adverse reactions No Had a fall/change in ADL's that may No increase risk of falls Signs or symptoms of abuse and/or No neglect since last visit Have you been in the hospital since your No last visit? Has dressing in place as prescribed Yes Has compression in place as prescribed Yes Has offloadiing in place as prescribed Yes Experienced any changes in pain level or No management Pain Scale: 0-10 Numeric Is Patient Pain Free? Yes WC - Nurse 1 - General Ulcer Measurement Start: 09/13/23 10:02 Freq: Status: Active Protocol: Activity Type Activity Date Activity User E-sign Co-sign Detail Recorded Client Recorded Date Recorded By Document 09/13/23 10:02 RB Desktop 09/13/23 10:21 RB 09/13/23 10:02 Wound Center Nurse 1 7. L lateral ankle -Combined with other wound No -Current Size (cm) - Length 3 -Current Size (cm) - Width 1 -Current Size (cm) - Depth 2.5 -Total Square Cm 3 -Tunneling No -Undermining/Tunneling No -Circular Undermining No -Exudate Amt Medium -Exudate Type Serosanguineous -Wound Margin Distinct, Outline Attached -Granulation Amt Medium (34-66%) -Granulation Quality [employer] -Slough/Fibrin Yes -Necrosis Amt Medium (34-66%) -Necrotic Tissue Type Adherent Slough -Structure Exposed N/A -Texture ([place]-wound Skin Appearance) Assessed -Moisture ([place]-wound Skin Appearance) Assessed -Color ([place]-wound Skin Appearance) Assessed -Temperature ([place]-wound Skin No Abnormality Appearance) (Pt Warm) -Tenderness on Palpation ([place]-wound No Skin Appearance) -Ulcer Cleansing Wound Cleanser -Foul Odor after Cleansing No -Anesthetic Used 4% Lidocaine Solution 6. L medial ankle -Combined with other wound No -Current Size (cm) - Length 0.1 -Current Size (cm) - Width 0.1 -Current Size (cm) - Depth 0.1 -Total Square Cm 0.01 -Tunneling No -Undermining/Tunneling No -Circular Undermining No -Exudate Amt Medium -Exudate Type Serosanguineous -Wound Margin Distinct, Outline Attached -Granulation Amt Medium (34-66%) -Granulation Quality [employer] -Slough/Fibrin Yes -Necrosis Amt Medium (34-66%) -Necrotic Tissue Type Adherent Slough -Structure Exposed N/A -Texture ([place]-wound Skin Appearance) Assessed -Moisture ([place]-wound Skin Appearance) Assessed -Color ([place]-wound Skin Appearance) Assessed -Temperature ([place]-wound Skin No Abnormality Appearance) (Pt Warm) -Tenderness on Palpation ([place]-wound No Skin Appearance) -Ulcer Cleansing Wound Cleanser -Foul Odor after Cleansing No Lower Limb Edema Present Yes Left Calf (cm) 34.5 Left Ankle (cm) 30 Assessment/Plan Assessment/Plan (1) Osteomyelitis of ankle, left, acute: CODE(S): M86.172 - Other acute osteomyelitis, left ankle and foot PLAN: Exam performed Patient on IV meropenem via PICC line per infectious disease for enterococcal and pseudomonal infection left lower extremity with bone involvement Patient is status post Charcot reconstruction. This is a limb salvage case Today left lower extremity wound to lateral ankle was debrided down to and including level of muscle excisionally using a 5 mm dermal curette without incident. No anesthesia due to neuropathy. Hemostasis obtained with light compression. Patient tolerated procedure well. Pre and postdebridement measurements documented nursing notes. Patient will receive 3 times a week wound packing with Dakin's wet-to-dry and overlying multilayer compression wrap. Wound dressing in the wound care center followed by 2 dressings to performed by home health care Patient follows up weekly Patient nonweightbearing left lower extremity patient being worked up for HBO therapy, which I recommend Blood sugar well-controlled (2) Charcot foot due to diabetes mellitus: CODE(S): E11.610 - 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 arthropathy (3) Abscess of bursa, left ankle and foot: CODE(S): M71.072 - Abscess of bursa, left ankle and foot (4) Cellulitis of left lower limb: CODE(S): L03.116 - Cellulitis of left lower limb (5) Non-pressure chronic ulcer of left 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: CODE(S): L97.322 - Non-pressure chronic ulcer of left ankle with fat layerexposed (6) Type 2 diabetes mellitus with diabetic polyneuropathy: CODE(S): E11.42 - Type 2 diabetes mellitus with diabetic polyneuropathy QUALIFIERS: Diabetes mellitus salvage determiner insulin use: without nursing home use Qualified Code(s): E11.42 - Type 2 diabetes mellitus with diabetic polyneuropathy 09/13/23 1037 <Electronically signed by Jordi Perkins DPM> Cosigner Signature (if applicable): CC: ~ Signed [facility] Work Phone: 1(353) 606-376501-30-2024 Progress note Author Jordi Perkins [facility] September 06, 2023 10:39am Note Date/Time September 06, 2023 1 0:39am [facility] [address] [address] Progress Note - Wound Care 09/06/23 1035 MR#: [id number] Acct: [id number] Name: SNEHA WEI Jr. Rep #:[id number] : 1980 43 From: Jordi Perkins DPLd PCP: Dr. Liliane Epps, DO Status:REG RCR Location: History of Present Illness Date of Service: 09/06/23 Chief Complaint: Diabetic left foot infection with gas gangrene and osteomyelitis. History of Wound: 43-year-old male status post left ankle incision and drainage of abscess on 09/01/2023. Patient had abscess and osteomyelitis growing Enterococcus and Pseudomonas. Patient follow-up today. Denies constitutional symptoms. Patient has PICC line receiving meropenem 3 times a day for the next 6 weeks. Patient has home health care. No other complaints. Objective Data Objective Data Vital Signs: Vital Signs Temp Pulse Resp BP O2 Del Method O2 Flow Rate 96.9 F L 91 18 128/72 H Room Air 99 09/06/23 09:57 09/06/23 09:57 09/06/23 09:57 09/06/23 09:57 08/30/23 09:34 09/06/23 09:57 Oxygen Flow Rate (L/min) 99 Oxygen Delivery Method Room Air Weight: 113.398 kg Body Mass Index (BMI) 33.9 Lab / Micro Data Micro: Microbiology 08/30/23 10:11 Wound - Ankle Gram Stain - Final 08/30/23 10:11 Wound - Ankle Wound Culture - Final Enterococcus faecalis 08/30/23 10:11 Wound - Ankle Anaerobic Culture - Final No growth in 5 days. Physical Exam Narrative Neurovascular status unchanged Full-thickness wounds to medial ankle healing well stable granular base no signsof infection. Lateral ankle wound down to the level of bone noted with intact vessel loop closure allowing for partial wound closure. There is a residual wound. Pre and postdebridement measurements documented in notes nursing notes. This was debrided down to level of muscle today. No residual abscess noted. Resolved acute signs of infection. No signs of DVT. Debridement Note Debridement Note Post-Debridement Measurements and Additional Note: Post-Debridement Measurements/Treatment - Nurse 1 - General Ulcer Assessment Start: 08/23/23 09:40 Freq: Status: Active Protocol: GWEN Activity Type Activity Date Activity User E-sign Co-sign Detail Recorded Client Recorded Date Recorded By Document 08/23/23 09:41 RB Desktop 08/23/23 10:02 RB Document 08/30/23 09:34 GM Desktop 08/30/23 09:50 GM Document 09/06/23 09:57 RB Desktop 09/06/23 10:16 RB 08/23/23 08/30/23 09/06/23 09:41 09:34 09:57 - Today's Visit Information Type of service Initial Visit Follow-up Visit Follow-up Visit (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 (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 ) ) Arrival Mode Wheelchair Ambulatory Wheelchair Transfer Assistance Manual None None Patient Identification Verified (Name & Yes Yes Yes ) Patient Requires Transmission-Based No No Precautions Finger Stick Blood Sugar(mg/dl) (if 103 112 indicated): Blood Sugar Stated by Stated by Patient Patient Height and Weight Height 6 ft Weight 113.398 kg Weight in Pounds 250.0 lbs Body Mass Index (BMI) 33.9 33.9 33.9 BMI Classification Obese Obese Obese BSA - Johnnie 2.34 Vital Signs Temperature (97.8 F-99.1 F) 97.8 F 96.6 F L 96.9 F L Temperature Source Temporal Temporal Temporal Pulse Rate (60-100) 98 95 91 Pulse Location Monitor Monitor Monitor Respiratory Rate (12-18) 18 16 18 Respiratory rate source Observation Observation Observation Oxygen Delivery Method Room Air O2 L/MIN (L/min) 99 Blood Pressure (90/60-120/80) 154/80 H 145/75 H 128/72 H Blood Pressure Mean (mm Hg) 104 98 90 Source Monitor Monitor Monitor Position Semi-Fowlers Sitting Sitting Blood Pressure Location Left Arm Left Arm Right Arm History Since Last Visit- (Skip if this is Patient's initial visit) Have you changed medications since your No Yes last visit? Any new allergies or adverse reactions No No Had a fall/change in ADL's that may No No increase risk of falls Signs or symptoms of abuse and/or No No neglect since last visit Have you been in the hospital since your No Yes last visit? Has dressing in place as prescribed Yes Yes Has compression in place as prescribed Yes Yes Has offloadiing in place as prescribed Yes Yes Experienced any changes in pain level or No No management Left Footwear No Footwear Total Contact Cast Right Footwear Diabetic Shoe Pain Scale: 0-10 Numeric Is Patient Pain Free? No Yes Yes WC - Nurse 1 - General Ulcer Measurement Start: 08/23/23 09:40 Freq: Status: Active Protocol: Activity Type Activity Date Activity User E-sign Co-sign Detail Recorded Client Recorded Date Recorded By Document 08/23/23 09:41 RB Desktop 08/23/23 10:02 RB Document 08/30/23 09:34 GM Desktop 08/30/23 09:50 GM Document 09/06/23 09:57 RB Desktop 09/06/23 10:16 RB 08/23/23 08/30/23 09/06/23 09:41 09:34 09:57 Wound Center Nurse 1 5. LLE post cluster -Combined with other wound No -Current Size (cm) - Length 4.2 -Current Size (cm) - Width 2.3 -Current Size (cm) - Depth 0.1 -Total Square Cm 9.66 4. L plantar -Combined with other wound No -Current Size (cm) - Length 2 -Current Size (cm) - Width 0.2 -Current Size (cm) - Depth 0.2 -Total Square Cm 0.4 -Photo Taken Yes -Tunneling No -Undermining/Tunneling No -Circular Undermining No -Exudate Amt Medium -Exudate Type Serosanguineous -Wound Margin Distinct, Outline Attached -Granulation Amt Medium (34-66%) -Granulation Quality [employer] -Slough/Fibrin Yes -Necrosis Amt Medium (34-66%) -Necrotic Tissue Type Adherent Slough -Structure Exposed N/A -Texture ([place]-wound Skin Appearance) Assessed -Moisture ([place]-wound Skin Appearance) Assessed -Color ([place]-wound Skin Appearance) Assessed -Temperature ([place]-wound Skin No Abnormality Appearance) (Pt Warm) -Tenderness on Palpation ([place]-wound No Skin Appearance) -Ulcer Cleansing Wound Cleanser -Foul Odor after Cleansing No -Anesthetic Used 5% Lidocaine Gel 7. L lateral ankle -Combined with other wound No No -Current Size (cm) - Length 0.2 0.3 5.5 -Current Size (cm) - Width 1.8 1.5 1 -Current Size (cm) - Depth 0.4 0.2 1.9 -Total Square Cm 0.36 0.45 5.5 -Photo Taken Yes Yes -Tunneling No No No -Undermining/Tunneling No No Yes -Undermining/Tunneling Starts (O'clock 5 ) -Undermining/Tunneling Ends (O'clock) 6 -Maximum Distance (cm) 2 -Circular Undermining No No -Exudate Amt Medium Medium Large -Exudate Type Serosanguineous Purulent Serosanguineous -Wound Margin Distinct, Distinct, Thickened & Outline Outline Rolled Under Attached Attached -Granulation Amt Medium (34-66%) Medium (34-66%) Medium (34-66%) -Granulation Quality [employer] -Slough/Fibrin Yes Yes Yes -Necrosis Amt Medium (34-66%) Medium (34-66%) Medium (34-66%) -Necrotic Tissue Type Adherent Slough Adherent Slough Adherent Slough -Structure Exposed N/A N/A N/A -Texture ([place]-wound Skin Appearance) Assessed Assessed Assessed -Moisture ([place]-wound Skin Appearance) Assessed Assessed Assessed,Dry/ Scaly -Color ([place]-wound Skin Appearance) Assessed Assessed Assessed -Temperature ([place]-wound Skin No Abnormality No Abnormality No Abnormality Appearance) (Pt Warm) (Pt Warm) (Pt Warm) -Tenderness on Palpation ([place]-wound No No No Skin Appearance) -Ulcer Cleansing Wound Cleanser Wound Cleanser Wound Cleanser -Foul Odor after Cleansing No No No -Anesthetic Used 5% Lidocaine 5% Lidocaine Gel Gel -Wound Comment(s) 16 robinson noted and red suture intertwined with robinson 6. L medial ankle -Combined with other wound No No -Current Size (cm) - Length 6 1.2 2.4 -Current Size (cm) - Width 1.4 1.6 0.7 -Current Size (cm) - Depth 1.8 0.1 0.5 -Total Square Cm 8.4 1.92 1.68 -Photo Taken Yes Yes -Tunneling No No No -Undermining/Tunneling No No No -Circular Undermining No No No -Exudate Amt Medium Medium Medium -Exudate Type Serosanguineous Serosanguineous Serosanguineous -Wound Margin Distinct, Distinct, Distinct, Outline Outline Outline Attached Attached Attached -Granulation Amt Medium (34-66%) Medium (34-66%) Medium (34-66%) -Granulation Quality [employer] -Slough/Fibrin Yes Yes Yes -Necrosis Amt Medium (34-66%) Medium (34-66%) Medium (34-66%) -Necrotic Tissue Type Adherent Slough Adherent Slough Adherent Slough -Structure Exposed N/A N/A N/A -Texture ([place]-wound Skin Appearance) Assessed Assessed Assessed -Moisture ([place]-wound Skin Appearance) Assessed Assessed Assessed,Dry/ Scaly -Color ([place]-wound Skin Appearance) Assessed Assessed -Temperature ([place]-wound Skin No Abnormality No Abnormality No Abnormality Appearance) (Pt Warm) (Pt Warm) (Pt Warm) -Tenderness on Palpation ([place]-wound No No No Skin Appearance) -Ulcer Cleansing Wound Cleanser Wound Cleanser Wound Cleanser -Foul Odor after Cleansing No No No -Anesthetic Used 5% Lidocaine 5% Lidocaine Gel Gel Left Calf (cm) 35 Left Ankle (cm) 26 - Nurse 2 - General Ulcer CM Notes Start: 08/23/23 09:40 Freq: Status: Active Protocol: Activity Type Activity Date Activity User E-sign Co-sign Detail Recorded Client Recorded Date Recorded By Document 08/23/23 10:32 Laptop 08/23/23 10:38 Edit Result 08/23/23 10:32 (1) [id number] 08/23/23 10:42 Document 08/30/23 10:25 [id number] 08/30/23 10:26 Document 09/06/23 10:29 Laptop 09/06/23 10:32 (1) 6. L medial ankle - Bleeding Controlled with Pressure => Pressure,Silver => Nitrate 08/23/23 08/30/23 09/06/23 10:32 10:25 10:29 Wound Center Nurse 2 5. LLE post cluster -Correct Patient No -Correct Side, Site, Position No -Correct Procedure No -Procedure Performed No 7. L lateral ankle -Time 10:31 -Correct Patient No No Yes -Correct Side, Site, Position No No Yes -Correct Procedure No No Yes -Procedure Performed No No Yes -Type of Procedure Debridement -Clinical Debridement Muscle / Fascia -Tissue Removed Muscle,Fascia -Post Debridement (cm) - Length 5.8 -Post Debridement (cm) - Width 1.0 -Post Debridement (cm) - Depth 3.5 -Total Square (Post) (cm) 5.80 -Area of Debridement (cm) - Length 5.8 -Area of Debridement (cm) - Width 1.0 -Total Square (Area) (cm) 5.80 -Tunneling No -Undermining/Tunneling No -Circular Undermining No -Wound/Ulcer Outcome Not Healed Not Healed Not Healed -Ulcer Cleansing Rinsed/ Rinsed/ Irrigated with Irrigated with Saline Saline -Foul Odor after Cleansing No No -Bioengineered Tissue No No -Bleeding Controlled with Pressure Pressure -Treatment Response Procedure Procedure Tolerated Well Tolerated Well -Offloading No No -Assistive Device(s) Wheelchair -Debridement - Subq, 1st 20sq cm No -Debridement - Muscle / Fascia, 1st Yes 20sq cm -I&D / Paring / Biopsy I&D abscess - multiple or complicated 6. L medial ankle -Time 10:32 -Correct Patient Yes No No -Correct Side, Site, Position Yes No No -Correct Procedure Yes No No -Procedure Performed Yes No No -Type of Procedure Debridement -Clinical Debridement Subcutaneous -Tissue Removed Subcutaneous -Post Debridement (cm) - Length 5.0 -Post Debridement (cm) - Width 2.0 -Post Debridement (cm) - Depth 0.1 -Total Square (Post) (cm) 10.00 -Area of Debridement (cm) - Length 5.0 -Area of Debridement (cm) - Width 2.0 -Total Square (Area) (cm) 10.00 -Tunneling No -Undermining/Tunneling No -Circular Undermining No -Wound/Ulcer Outcome Not Healed Not Healed -Ulcer Cleansing Rinsed/ Irrigated with Saline -Foul Odor after Cleansing No -Bioengineered Tissue No -Bleeding Controlled with Pressure,Silver Nitrate -Treatment Response Procedure Tolerated Well -Offloading Yes -Type of Offloading Total Contact Cast (TCC) - Left ($) -Debridement - Subq, 1st 20sq cm Yes -I&D / Paring / Biopsy I&D abscess - multiple or complicated Pain Scale: 0-10 Numeric Is Patient Pain Free? Yes Yes Yes WC - Nurse 3 - General Ulcer D/C NN Start: 08/23/23 09:40 Freq: Status: Active Protocol: Activity Type Activity Date Activity User E-sign Co-sign Detail Recorded Client Recorded Date Recorded By Document 08/23/23 10:53 DL Desktop 08/23/23 10:56 DL Edit Result 08/23/23 10:53 DL (1) [id number] 08/23/23 11:13 JF Document 08/30/23 10:42 RB Desktop 08/30/23 10:44 RB (1) Notes: TCC applied per R Elba => TCC applied per R Ebla and Marely Cline. Pins to foot heavily padded. 08/23/23 08/30/23 10:53 10:42 Wound Care Center Nurse 3 7. L lateral ankle -Ulcer Cleansing Soap and Water betadine -Foul Odor after Cleansing No -Primary Dressing Applied Nugauze, Iodoform 1/2in -Other Dressing dakins abd -Primary Dressing Covered/Secured with Dry Gauze & Dry Gauze,Dry Roll Gauze, Gauze & Roll Secured with Gauze,Secured Tape with Tape -Other Covering TCC -Nugauze, Iodoform 1/2in 1 6. L medial ankle -Ulcer Cleansing Rinsed/ betadine Irrigated with Saline -Foul Odor after Cleansing No -Other Dressing dakin abd / kerlix/ martha -Primary Dressing Covered/Secured with Dry Gauze & Dry Gauze,Dry Roll Gauze, Gauze & Roll Secured with Gauze,Secured Tape with Tape -Other Covering TCC Treatment Response Procedure Procedure Tolerated Well Tolerated Well Pain Scale: 0-10 Numeric Is Patient Pain Free? Yes Yes Teaching: Wound Center Dressing Your Wound -Person Taught Patient,Family -Teaching Method Discussion, Demonstration -Response to teaching Verbalize understanding WC - Visit Discharge Discharge Condition Stable Stable Ambulatory Status Walker Ambulatory Transportation Private Auto Private Auto Accompanied by family Medication Reconcilliation completed & No provided to patient/care provider Clinical Summary of Care Provided Yes Notes: TCC applied per R Elba and Marely Cline. Pins to foot heavily padded . Assessment/Plan Assessment/Plan (1) Osteomyelitis of ankle, left, acute: CODE(S): M86.172 - Other acute osteomyelitis, left ankle and foot PLAN: Exam performed Patient on IV meropenem via PICC line per infectious disease for enterococcal and pseudomonal infection left lower extremity with bone involvement Patient is status post Charcot reconstruction. This is a limb salvage case Today left lower extremity wound to lateral ankle was debrided down to and including level of muscle excisionally using a 5 mm dermal curette without incident. No anesthesia due to neuropathy. Hemostasis obtained with light compression. Patient tolerated procedure well. Pre and postdebridement measurements documented nursing notes. Patient will receive 3 times a week wound packing with Dakin's wet-to-dry and overlying multilayer compression wrap. Wound dressing in the wound care center followed by 2 dressings to performed by home health care Patient follows up weekly Patient nonweightbearing left lower extremity Blood sugar well-controlled (2) Charcot foot due to diabetes mellitus: CODE(S): E11.610 - 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 arthropathy (3) Abscess of bursa, left ankle and foot: CODE(S): M71.072 - Abscess of bursa, left ankle and foot (4) Cellulitis of left lower limb: CODE(S): L03.116 - Cellulitis of left lower limb (5) Non-pressure chronic ulcer of left 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: CODE(S): L97.322 - Non-pressure chronic ulcer of left ankle with fat layerexposed (6) Type 2 diabetes mellitus with diabetic polyneuropathy: CODE(S): E11.42 - Type 2 diabetes mellitus with diabetic polyneuropathy QUALIFIERS: Diabetes mellitus nursing home insulin use: without nursing home use Qualified Code(s): E11.42 - Type 2 diabetes mellitus with diabetic polyneuropathy 09/06/23 1039 <Electronically signed by Jordi Perkins DPM> Cosigner Signature (if applicable): CC: ~ Signed [facility] Work Phone: 1(251) 229-186601-29-2024 Progress note Author Yoan Vee [facility] September 05, 2023 3:42pm Note Date/Time September 05, 2023 3 :42pm [facility] Medical Records Department [address] [place] [address] Progress Note - Infect Disease 09/05/23 1541 MR#: [id number] Acct: [id number] Name: SNEHA WEI Jr. Rep #:[id number] : 1980 43 From: Yoan sanabria MD PCP: Dr. Liliane Epps, DO Status:ADM IN Location: [address] Physical Exam Narrative Feeling better, no fever, no n/v/d. Const alert and no apparent distress General Appearance: cooperative Resp normal air movement and clear to auscultation bilaterally Cardio regular rate and regular rhythm GI soft to palpation, non-tender and non-distended Skin Skin Narrative: foot wrapped ID ID: Route of nutrition/ use of supplements: [] Nutritional Intake: [] IV Site: [] Hernandes Catheter: [] Assessment & Plan Assessment/Plan (1) Osteomyelitis of ankle, left, acute: PLAN: L foot osteo and abscess complicated by hardware - taken to OR 09/01/[address] Perkins for I&D. Cxs so far showing enterococcus, PsA. Narrow abx to meropenem. Plan on 6 weeks iv butch, stop date 10/13/23 with weekly labs, ID followup in 2 weeks, then likely long course suppressive po abx. Will follow (2) Charcot foot due to diabetes mellitus: 09/05/23 1542 <Electronically signed by Yoan Vee MD> Cosigner Signature (if applicable): CC: ~ Signed [facility] Work Phone: 1(603) 202-435501-29-2024 Consult note Author Terry Rice [facility] September 05, 2023 3:27pm Note Date/Time September 05, 2023 1 1:48am [facility] Medical Records Department [address] [place] [id number] Pharmacokinetic/Renal -Consult 09/05/23 1148 MR#: [id number] Acct: [id number] Name: SNEHA WEI Rep #:[id number] : 1980 43 From: Mady Street PCP: Dr. Liliane Epps, DO Status:ADM IN Y Location: [address] Consult Antibiotic Management Pharmacy has been consulted to manage selected antibiotic: Vancomycin Type of Intervention Type of Consult: Follow-up Suspected Infection Suspected Infection: Other (diabetic foot infection/cellulitis) Labs Labs: Sodium 141 mmol/L (136-145) 09/05/23 02:40 Potassium 3.9 mmol/L (3.5-5.1) 09/05/23 02:40 Chloride 108 mmol/L (98-107) H 09/05/23 02:40 Carbon Dioxide 31.0 mmol/L (21.0-32.0) 09/05/23 02:40 Anion Gap 2 (5-15) L 09/05/23 02:40 BUN 24 mg/dL (7-18) H 09/05/23 02:40 Creatinine 0.89 mg/dL (0.70-1.30) 09/05/23 02:40 Est GFR (MDRD) Af Amer 122 mL/min (>60) 09/05/23 02:40 Est GFR (MDRD) Non-Af 100 mL/min (>60) 09/05/23 02:40 BUN/Creatinine Ratio 27.1 RATIO (10-20) H 09/05/23 02:40 Glucose 107 mg/dL (74-106) H 09/05/23 02:40 Vancomycin Trough 20.6 ug/mL (5.0-15.0) H 09/05/23 02:40 Random Vancomycin 12.4 ug/mL (0.0-15.0) 09/05/23 10:14 Microbiology Microbiology: Microbiology 08/30/23 11:56 Blood Culture (Wb) - Arm Left Blood Culture - Final No growth in 5 days. 08/30/23 11:55 Blood Culture (Wb) - Arm Right Blood Culture - Final No growth in 5 days. 09/01/23 08:20 Bone - Left Foot Gram Stain - Final 09/01/23 08:20 Bone - Left Foot Wound Culture - Final Enterococcus faecalis Pseudomonas aeruginosa 09/01/23 08:20 Bone - Left Foot Anaerobic Culture - Final No anaerobic bacteria isolated. 09/01/23 08:20 Abs - Aerobic & Anaerobic Swabs Gram Stain - Final 09/01/23 08:20 Abs - Aerobic & Anaerobic Swabs Wound Culture - Final Enterococcus faecalis 09/01/23 08:20 Abs - Aerobic & Anaerobic Swabs Anaerobic Culture - Final No anaerobic bacteria isolated. 09/01/23 08:20 Abs - Aerobic & Anaerobic Swabs Gram Stain - Final 09/01/23 08:20 Abs - Aerobic & Anaerobic Swabs Wound Culture - Final Enterococcus faecalis 09/01/23 08:20 Abs - Aerobic & Anaerobic Swabs Anaerobic Culture - Final No anaerobic bacteria isolated. 08/30/23 11:58 Wound - Left Foot Gram Stain - Final 08/30/23 11:58 Wound - Left Foot Wound Culture - Final No growth aerobically. Pharmacy Plan for Drug Dosing Pharmacy Plan for Drug Dosing: VANCOMYCIN LEVEL RECEIVED Current Vancomycin Dose: HOLD, LAST REGIMEN WAS 1000MG Q8 Number of Doses Received: 12 Vancomycin Level: 12.4 mg/dL Hours Since Last Dose: 15 Renal Function: SCr 0.89 mg/dl, CrCL >100mL/min Renal Function Trend: stable Lab/Micro: Enterococcus in wound cx Vancomycin Plan/Comments: 15 hour random vancomycin level came back subtherapeutic at 12.4 mg/dL (goal 15-20). Last trough was only slightly elevated at 20.6 mg/dl on 1000mg Q8 so will restart dosing at 750mg Q8 and get atrough prior to 4th dose of new regimen. Pending Level: 09/06/23 @ 1130 Pharmacy Service will continue to monitor and adjust dosing as required. 09/05/23 1149 <Electronically signed by Mady Street> Date _ Mady Street 09/05/23 1527 <Electronically signed by Terry dallas MD> Cosigner Signature (if applicable): Date Terry Rice MD CC: ~ Signed [facility] Work Phone: 1([phone]) 681-721701-29-2024 Discharge summary Author Terry Rice [facility] September 05, 2023 3:09pm Note Date/Time September 05, 2023 2 :50pm [facility] Medical Records Department [address] [place] [address] Discharge Summary 09/05/23 1447 MR#: [id number] Acct: [id number] Name: SNEHA WEI Jr. Rep #:[id number] : 1980 43 From: Terry de la rosa MD PCP: Dr. Liliane Epps DO Status:ADM IN [place] [facility] [place] [id number] Providers Date of Admission: 08/30/23 Primary Care Physician: Dr. Liliane Epps DO Consultations 08/30/23 14:13 Consult: Onc/Wound/hospital medical biller Routine Comment: Reason for Consult:: left foot, seen at wound center by Dr. Perkins 09/01/23 09:51 Consult: Infectious Disease Routine Consulting Provider: Yoan Vee Reason for Consult: PICC line, abx management EMERGENT Consult: No MD Notified: Yes Date Notified: 09/01/23 Time Notified: 14:47 Method of Notification: backline 09/01/23 11:21 Consult: Podiatry Routine Consulting Provider: Jordi Perkins Reason for Consult: foot infection EMERGENT Consult: No MD Notified: Yes Date Notified: 09/01/23 Time Notified: 11:22 Method of Notification: Verbal Reason For Visit: DIABETIC FOOT ABSCESS AND CELLULITIS Diagnosis Discharge Diagnosis (1) Osteomyelitis of ankle, left, acute: Status: Acute Code(s): M86.172 - Other acute osteomyelitis, left ankle and foot (2) Charcot foot due to diabetes mellitus: Status: Acute Code(s): E11.610 - 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 arthropathy (3) Abscess of bursa, left ankle and foot: Status: Acute Code(s): M71.072 - Abscess of bursa, left ankle and foot (4) Cellulitis of left lower limb: Status: Acute Code(s): L03.116 - Cellulitis of left lower limb (5) Non-pressure chronic ulcer of left 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: Status: Chronic Code(s): L97.322 - Non-pressure chronic ulcer of left 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 Medications at Discharge Home Medications metformin 1,000 mg tablet 1,000 mg PO BID diabetes 11/14/21 calcium citrate 200 mg (950 mg) tablet 200 mg PO DAILY SUPPLEMENT 11/24/21 multivitamin 1 tab PO DAILY SUPPLEMENT 11/24/21 losartan 25 mg tablet 25 mg PO DAILY BLOOD PRESSURE 09/15/22 semaglutide 14 mg tablet (Rybelsus) 14 mg PO DAILY DIABETES 07/06/23 ascorbic acid (vitamin C) 1,000 mg tablet,extended release (C Complex) 1,000 mg PO DAILY SUPPLEMENT 08/30/23 omega 7-ggl-atl-fish oil 300 mg-1,000 mg capsule (Fish Oil) 2 cap PO DAILY SUPPLEMENT 08/30/23 pravastatin 80 mg tablet 80 mg PO QHS CHOLESTEROL 08/30/23 meropenem 1 gram intravenous solution 1 g IV Q8 38 days #114 ea 09/05/23 Hospital Course Operations - (1) Incision and drainage abscess left lower extremity down to level bone 2) Delayed primary closure left lower extremity wound 3) Wound site debridement with wound bed red preparation for graft application left lower extremity medialankle wounds x 2 4) Application of graft or skin substitute to ) Procedures PICC line placement Summary of Care Provided Minutes Spent on Discharge: 38 Hospital Course: Per HPI: SNEHA WEI, is a 43 M with a PMH as outlined who presents via the ED on 08/30/2023 with a complaitn of abscess of the left foot. HE went to the wound clinic where he has been seeing podiatry. HE had Charcot foot surgery ~ 6 weeks ago. TOday he was noted to be having purulent drainage from the left foot wound. He denied any fever, chills or increased pain. Review of systms was otherwise negative. He denied any significant pain due to neuropathy but admitted to redness and swelling of the left foot. Vitals in the ED were BP of 118/67, HI of 87, RR of 15 and temp of 98.2F. He wassaturating at 98% on room air. CBC was largely unremarkable with wbc of 5. Chemistry was unremarkable. Wound cultures were obtained, and patient is being admitted to be managed for infected left foot diabetic wound. Hospital course: 1. Diabetic foot abscess with cellulitis of the left lower extremity status post I&D with delayed primary closure?43-year-old male with history of type 2 diabetes presented to the hospital with left foot abscess in the setting of Charcot. He had operative debridement with delayed primary closure. And he hasbeen doing very well from a pain management standpoint and infectious disease was consulted for antibiotic management, they ultimately elected to proceed with meropenem 3 times a day through his PICC line as his wound culture grew Enterococcus faecalis as well as Pseudomonas. He will need home health care forwound dressings on discharge. He will need close outpatient follow-up with podiatry and infectious disease. I discussed with him the plan for possible discharge today he expressed understanding of the risk and benefits of going home and would like to go today. 2. Type 2 diabetes, hypertension, hyperlipidemia chronic medical conditions which complicate his care. His home medications were continued where appropriate Physical Exam Narrative General: Alert, Oriented x3, Cooperative, No apparent distress HEENT: Atraumatic, PERRLA, EOMI, Normocephalic Oral: Moist Mucosa Neck: Supple, No JVD Lungs: Clear to auscultation, Normal air movement, No rhonchi, No wheeze, No rales Cardiovascular: Regular rate, Regular Rhythm, Normal S1, Normal S2, No murmurs Abdomen: Soft, Non Tender, Non-Distended, No Hepato-splenomegaly Extremities: No edema, Capillary Refill Less than 3 Seconds Skin: Left lower extremity wound is dressed, pictures reviewed Musculoskeletal: No Tenderness to Palpation of Joints or Extremities Neurological: Cranial nerves II-XII grossly intact, Motor Exam 5/5 strength throughout, Sensory exam intact to light touch and pain Psych/Mental Status: Normal Affect, Appropriate Weight / BMI Weight Weight: 258 lb 6.108 oz Body Mass Index (BMI) 36.0 ABG / Lab / Microbiology Data 09/05/23 02:40 09/05/23 02:40 Laboratory: Laboratory Results - last 24 hr 09/04/23 17:13: POC Glucose 113 H 09/04/23 21:50: POC Glucose 108 H 09/05/23 02:40: WBC 5.5, RBC 4.31 L, Hgb 10.2 L, Hct 33.7 L, MCV 78.2 L, MCH 23.7 L, MCHC 30.3 L, RDW Std Deviation 39.6, RDW Coeff of Venita 13.8, Plt Count 255, MPV 9.1, Immature Gran % (Auto) 0.500, Neut % (Auto) 53.9, Lymph % (Auto) 23.6, Union % (Auto) 11.2 H, Eos % (Auto) 10.1 H, Baso % (Auto) 0.7, Absolute Neuts (auto) 2.9, Absolute Lymphs (auto) 1.29, Nucleated RBC % 0, Sodium 141, Potassium 3.9, Chloride 108 H, Carbon Dioxide 31.0, Anion Gap 2 L, BUN 24 H, Creatinine 0.89, Estim Creat Clear Calc 142.23, Est GFR (MDRD) Af Amer 122, Est GFR (MDRD) Non-Af 100, BUN/Creatinine Ratio 27.1 H, Glucose 107 H, Calcium 9.6, Vancomycin Trough 20.6 H 09/05/23 06:01: POC Glucose 114 H 09/05/23 10:14: Random Vancomycin 12.4 09/05/23 11:16: POC Glucose 120 H Microbiology: Microbiology 08/30/23 11:56 Blood Culture (Wb) - Arm Left Blood Culture - Final No growth in 5 days. 08/30/23 11:55 Blood Culture (Wb) - Arm Right Blood Culture - Final No growth in 5 days. 09/01/23 08:20 Bone - Left Foot Gram Stain - Final 09/01/23 08:20 Bone - Left Foot Wound Culture - Final Enterococcus faecalis Pseudomonas aeruginosa 09/01/23 08:20 Bone - Left Foot Anaerobic Culture - Final No anaerobic bacteria isolated. 09/01/23 08:20 Abs - Aerobic & Anaerobic Swabs Gram Stain - Final 09/01/23 08:20 Abs - Aerobic & Anaerobic Swabs Wound Culture - Final Enterococcus faecalis 09/01/23 08:20 Abs - Aerobic & Anaerobic Swabs Anaerobic Culture - Final No anaerobic bacteria isolated. 09/01/23 08:20 Abs - Aerobic & Anaerobic Swabs Gram Stain - Final 09/01/23 08:20 Abs - Aerobic & Anaerobic Swabs Wound Culture - Final Enterococcus faecalis 09/01/23 08:20 Abs - Aerobic & Anaerobic Swabs Anaerobic Culture - Final No anaerobic bacteria isolated. 08/30/23 11:58 Wound - Left Foot Gram Stain - Final 08/30/23 11:58 Wound - Left Foot Wound Culture - Final No growth aerobically. D/C Instructions Discharge Diet: Low fat / Low cholesterol and Carb Control Diet Weight Bearing Status: No weight bearing (Left foot) Call your doctor if your incision/area has: Continuous Slow Oozing, Sudden Increased Bleeding, Increased Redness and Foul Smelling Discharge Call your doctor if you observe: Fever of 101 or Higher, Shortness of breath, Dizziness, Fainting spells, Swelling in the ankles, Chest pain and Increased palpitations (irregular heartbeat) Meaningful Use Info Meaningful Use Diagnoses (Choose all that apply): None applicable Discharge Plan Admission Admit Date/Time: 08/30/23 13:24 Attending Provider: Terry Rice Primary Care Provider: Liliane Epps Consulting Providers: Jordi Perkins; Yoan Vee; Angélica Escalante Instructions Additional Instructions / Restrictions: Patient will require home health care dressing changes 2-3x per week consisting of betadine wet to dry and martha bandage for compressoin follow up in 1 week at wound care center non-weightbearing on left assisted by knee scooter/walker/wheelchair Discharge Orders/Prescriptions Prescriptions: New meropenem 1 gram Recon Soln 1 g IV Q8 38 Days Qty: 114 0RF Rx Instructions: stop date 10/13/23. Dx foot osteo. Weekly bmp, cbc, LFT, and esr; fax to [phone] Continued metformin 1,000 mg tablet 1,000 mg PO BID multivitamin Tablet 1 tab PO DAILY calcium citrate 200 mg (950 mg) Tablet 200 mg PO DAILY losartan 25 mg Tablet 25 mg PO DAILY Rybelsus 14 mg tablet 14 mg PO DAILY pravastatin 80 mg tablet 80 mg PO QHS omega 2-xwl-isg-fish oil [Fish Oil] 300-1,000 mg capsule 2 cap PO DAILY C Complex 1,000 mg tablet extended release 1,000 mg PO DAILY Referrals / Follow Up: Jordi Perkins DPM [Med Staff - Active Staff] - Within 2 Weeks Liliane Epps DO [Primary Care Provider] - Within 1 Week Yoan Vee MD [Med Staff - Active Staff] - Within 2 Weeks Disposition Disposition (needs filled in before D/C Order can be placed): Home Health Service Charges/Coding Visit Charges Inpatient E&M: 64313 Disch Hosp >30min 09/05/23 1509 <Electronically signed by Terry Rice MD> Cosigner Signature (if applicable): CC: Dr. Liliane Epps DO; Dr. Terry Rice MD~ Signed [facility] Work Phone: 1(141) 208-228901-29-2024 Consult note Author Jack Alvarez [facility] September 05, 2023 2:59pm Note Date/Time September 05, 2023 2 :59pm [facility] Medical Records Department [address] [place] [address] Counseling Note - Pharmacy 09/05/23 1459 MR#: [id number] Acct: [id number] Name: SNEHA WEI Jr. Rep #:[id number] : 1980 43 From: Jack Alvarez PCP: Dr. Liliane Epps, DO Status:ADM IN Y Location: [address] Pharmacy Service has performed discharge medication reconciliation and counseling for this patient. The patient's discharge medication list was reviewed for discrepancies and discrepancies were resolved. The patient was counseled on the following discharge medications and changes in medications for homegoing were reviewed. The Reason for Use, instructions for use, and potential side effects were reviewed for all new medications. The patient's questions regarding all of their medications were answered. 1. Meropenem 1000 mg Q8H through 10/13/23 The patient was able to verbally demonstrate an understanding of their dischargemedications. Medications at Discharge Home Medications metformin 1,000 mg tablet 1,000 mg PO BID diabetes 11/14/21 calcium citrate 200 mg (950 mg) tablet 200 mg PO DAILY SUPPLEMENT 11/24/21 multivitamin 1 tab PO DAILY SUPPLEMENT 11/24/21 losartan 25 mg tablet 25 mg PO DAILY BLOOD PRESSURE 09/15/22 semaglutide 14 mg tablet (Rybelsus) 14 mg PO DAILY DIABETES 07/06/23 ascorbic acid (vitamin C) 1,000 mg tablet,extended release (C Complex) 1,000 mg PO DAILY SUPPLEMENT 08/30/23 omega 6-ebi-wfa-fish oil 300 mg-1,000 mg capsule (Fish Oil) 2 cap PO DAILY SUPPLEMENT 08/30/23 pravastatin 80 mg tablet 80 mg PO QHS CHOLESTEROL 08/30/23 meropenem 1 gram intravenous solution 1 g IV Q8 38 days #114 ea 09/05/23 09/05/23 1459 <Electronically signed by Jack sanabria> Date _ Jack Alvarez Cosigner Signature (if applicable): Date CC: ~ Signed [facility] Work Phone: 1(496) 844-692501-29-2024 Discharge summary Author Terry Rice [facility] September 05, 2023 2:47pm Note Date/Time September 05, 2023 2 :46pm [facility] Medical Records Department [address] [place] [address] Instructions for Home/Discharge Instructions 09/05/23 1444 MR#: [id number] Acct: [id number] Name: SNEHA WEI Rep #:[id number] : 1980 43 From: Terry de la rosa MD PCP: Dr. Lilaine Epps, DO Status:ADM IN Discharge Instructions Diet Discharge Diet: Low fat / Low cholesterol and Carb Control Diet Activity Discharge Activity: Return to Normal Activity Dressing / Incision Call your doctor if you observe: Fever of 101 or Higher, Shortness of breath, Dizziness, Fainting spells, Swelling in the ankles, Chest pain and Increased palpitations (irregular heartbeat) Follow Up Care Test Results: Test results from this visit will be discussed in further detail at your follow- up appointment, if applicable. Discharge Plan Admission Admit Date/Time: 08/30/23 13:24 Attending Provider: Terry Rice Primary Care Provider: Liliane Epps Consulting Providers: Jordi Perkins; Yoan Vee; Angélica Escalante Instructions Additional Instructions / Restrictions: Patient will require home health care dressing changes 2-3x per week consisting of betadine wet to dry and martha bandage for compressoin follow up in 1 week at wound care center non-weightbearing on left assisted by knee scooter/walker/wheelchair Discharge Orders/Prescriptions Prescriptions: New meropenem 1 gram Recon Soln 1 g IV Q8 38 Days Qty: 114 0RF Rx Instructions: stop date 10/13/23. Dx foot osteo. Weekly bmp, cbc, LFT, and esr; fax to [phone] Continued metformin 1,000 mg tablet 1,000 mg PO BID multivitamin Tablet 1 tab PO DAILY calcium citrate 200 mg (950 mg) Tablet 200 mg PO DAILY losartan 25 mg Tablet 25 mg PO DAILY Rybelsus 14 mg tablet 14 mg PO DAILY pravastatin 80 mg tablet 80 mg PO QHS omega 8-orw-axx-fish oil [Fish Oil] 300-1,000 mg capsule 2 cap PO DAILY C Complex 1,000 mg tablet extended release 1,000 mg PO DAILY Referrals / Follow Up: Jordi Perknis DPM [Med Staff - Active Staff] - Within 2 Weeks Liliane Epps DO [Primary Care Provider] - Within 1 Week Yoan Vee MD [Med Staff - Active Staff] - Within 2 Weeks Disposition Disposition (needs filled in before D/C Order can be placed): Home Health Service 09/05/23 1447<Electronically signed by Terry Rice MD>Terry Rice MD CC: BALTAZAR Perkins; Dr. Liliane Epps DO; Dr. Angélica Escalante MD; Dr.Robert Mariusz MD ~ Signed [facility] Work Phone: 1(445) 830-238301-29-2024 Progress note Author Jordi Perkins [facility] September 05, 2023 12:06pm Note Date/Time September 05, 2023 1 2:07pm [facility] Medical Records Department [address] [place] [address] Progress Note 09/05/23 1205 MR#: [id number] Acct: [id number] Name: SNEHA WEI Jr. Rep #:[id number] : 1980 43 From: Jordi Perkins DPM PCP: Dr. Liliane Epps DO Status:ADM IN Location: [place] [id number] Objective Data Objective Data Vital Signs: Vital Signs Temp Pulse Resp BP Pulse Ox O2 Del Method 97.8 F 86 18 131/78 H 97 Room Air 09/05/23 07:50 09/05/23 07:50 09/05/23 07:50 09/05/23 07:50 09/05/23 07:50 09/05/23 07:50 Oxygen Delivery Method Room Air Weight: 117.2 kg Body Mass Index (BMI) 36.0 Intake & Output: Intake and Output for Last 24 Hours 09/03/23 09/04/23 09/05/23 23:59 23:59 23:59 Intake Total 2852 / 2852 1700 / 1700 50 / 50 Balance 2852 / 2852 1700 / 1700 50 / 50 Lab / Micro Data 09/05/23 02:40 09/05/23 02:40 Labs: Laboratory Results - last 24 hr 09/04/23 11:30: POC Glucose 134 H 09/04/23 17:13: POC Glucose 113 H 09/04/23 21:50: POC Glucose 108 H 09/05/23 02:40: WBC 5.5, RBC 4.31 L, Hgb 10.2 L, Hct 33.7 L, MCV 78.2 L, MCH 23.7 L, MCHC 30.3 L, RDW Std Deviation 39.6, RDW Coeff of Venita 13.8, Plt Count 255, MPV 9.1, Immature Gran % (Auto) 0.500, Neut % (Auto) 53.9, Lymph % (Auto) 23.6, Union % (Auto) 11.2 H, Eos % (Auto) 10.1 H, Baso % (Auto) 0.7, Absolute Neuts (auto) 2.9, Absolute Lymphs (auto) 1.29, Nucleated RBC % 0, Sodium 141, Potassium 3.9, Chloride 108 H, Carbon Dioxide 31.0, Anion Gap 2 L, BUN 24 H, Creatinine 0.89, Estim Creat Clear Calc 142.23, Est GFR (MDRD) Af Amer 122, Est GFR (MDRD) Non-Af 100, BUN/Creatinine Ratio 27.1 H, Glucose 107 H, Calcium 9.6, Vancomycin Trough 20.6 H 09/05/23 06:01: POC Glucose 114 H 09/05/23 10:14: Random Vancomycin 12.4 09/05/23 11:16: POC Glucose 120 H Micro: Microbiology 08/30/23 11:56 Blood Culture (Wb) - Arm Left Blood Culture - Final No growth in 5 days. 08/30/23 11:55 Blood Culture (Wb) - Arm Right Blood Culture - Final No growth in 5 days. 09/01/23 08:20 Bone - Left Foot Gram Stain - Final 09/01/23 08:20 Bone - Left Foot Wound Culture - Final Enterococcus faecalis Pseudomonas aeruginosa 09/01/23 08:20 Bone - Left Foot Anaerobic Culture - Final No anaerobic bacteria isolated. 09/01/23 08:20 Abs - Aerobic & Anaerobic Swabs Gram Stain - Final 09/01/23 08:20 Abs - Aerobic & Anaerobic Swabs Wound Culture - Final Enterococcus faecalis 09/01/23 08:20 Abs - Aerobic & Anaerobic Swabs Anaerobic Culture - Final No anaerobic bacteria isolated. 09/01/23 08:20 Abs - Aerobic & Anaerobic Swabs Gram Stain - Final 09/01/23 08:20 Abs - Aerobic & Anaerobic Swabs Wound Culture - Final Enterococcus faecalis 09/01/23 08:20 Abs - Aerobic & Anaerobic Swabs Anaerobic Culture - Final No anaerobic bacteria isolated. 08/30/23 11:58 Wound - Left Foot Gram Stain - Final 08/30/23 11:58 Wound - Left Foot Wound Culture - Final No growth aerobically. Physical Exam Narrative Left lower extremity wound was examined today no residual purulence to the lateral ankle. Medial ankle wounds appear healthy granular as well. No active bleeding at current. No sign DVT. Assessment & Plan Assessment/Plan (1) Osteomyelitis of ankle, left, acute: PLAN: Exam performed Wound appears healthy today. Redressed Betadine soaked gauze 4 x 4's Kerlix Martha bandage Bone + E. Fecaelis/Pseudomonas ID on board; PICC ordered - await final abx recommendations patient will d/c with NWB order status for left side Patient will require home health care dressing changes 2-3x per week consisting of betadine wet to dry and martha bandage for compressoin follow up in 1 week at wound care center (2) Charcot foot due to diabetes mellitus: (3) Abscess of bursa, left ankle and foot: (4) Cellulitis of left lower limb: (5) Non-pressure chronic ulcer of left 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: 09/05/23 1206 <Electronically signed by Jordi Perkins DPM> Jordi Perkins DPM Cosigner Signature (if applicable): CC: ~ Signed [facility] Work Phone: [phone]) 600-174901-29-2024 Consult note Author Piero Pickett [facility] September 05, 2023 3:27am Note Date/Time September 05, 2023 3 :28am [facility] Medical Records Department [address] [place] [address] Pharmacokinetic/Renal -Consult 09/05/23 0327 MR#: [id number] Acct: [id number] Name: SNEHA WEI Jr. Rep #:[id number] : 1980 43 From: Piero Zavala od PCP: Dr. Liliane Epps, DO Status:ADM IN Y Location: [place] [address] Consult Antibiotic Management Pharmacy has been consulted to manage selected antibiotic: Vancomycin Type of Intervention Type of Consult: Follow-up Labs Labs: Vancomycin Trough 20.6 ug/mL (5.0-15.0) H 09/05/23 02:40 Random Vancomycin 12.4 ug/mL (0.0-15.0) 09/01/23 01:53 Microbiology Microbiology: Microbiology 08/30/23 11:56 Blood Culture (Wb) - Arm Left Blood Culture - Final No growth in 5 days. 08/30/23 11:55 Blood Culture (Wb) - Arm Right Blood Culture - Final No growth in 5 days. 09/01/23 08:20 Bone - Left Foot Gram Stain - Final 09/01/23 08:20 Bone - Left Foot Wound Culture - Final Enterococcus faecalis Pseudomonas aeruginosa 09/01/23 08:20 Bone - Left Foot Anaerobic Culture - Final No anaerobic bacteria isolated. 09/01/23 08:20 Abs - Aerobic & Anaerobic Swabs Gram Stain - Final 09/01/23 08:20 Abs - Aerobic & Anaerobic Swabs Wound Culture - Final Enterococcus faecalis 09/01/23 08:20 Abs - Aerobic & Anaerobic Swabs Anaerobic Culture - Final No anaerobic bacteria isolated. 09/01/23 08:20 Abs - Aerobic & Anaerobic Swabs Gram Stain - Final 09/01/23 08:20 Abs - Aerobic & Anaerobic Swabs Wound Culture - Final Enterococcus faecalis 09/01/23 08:20 Abs - Aerobic & Anaerobic Swabs Anaerobic Culture - Final No anaerobic bacteria isolated. 08/30/23 11:58 Wound - Left Foot Gram Stain - Final 08/30/23 11:58 Wound - Left Foot Wound Culture - Final No growth aerobically. Goal Trough Goal Trough: 15-20 mcg/mL Pharmacy Plan for Drug Dosing Pharmacy Plan for Drug Dosing: Pharmacy Service will continue to monitor and adjust dosing as required. TROUGH 20.6 @ 8 HOURS. HOLD DOSE AND DRAW RANDOM LEVEL IN 8 HOURS Follow-Up Labs Follow-Up Labs: Trough: Vancomycin Date/Time Labs Ordered Labs to be done on [date and time ordered]: 09/05 @ 1030 09/05/23 0327 <Electronically signed by Piero toledo> Date _ Piero Pickett Cosigner Signature (if applicable): Date CC: ~ Signed [facility] Work Phone: 1(296) 417-678601-28-2024 Progress note Author Angélica [facility] September 04, 2023 1:57pm Note Date/Time September 04, 2023 1 1:11am [facility] Medical Records Department [address] [place] [address] Progress Note 09/04/23 1108 MR#: [id number] Acct: [id number] Name: SNEHA WEI Jr. Rep #:[id number] : 1980 43 From: Angélica Escalante MD PCP: Dr. Liliane Epps, DO Status:ADM IN Location: [place] [address] Subjective Subjective Patient seen and examined. He had no active complaints. Pain was well- controlled. Review of systems otherwise negative. He has had a PICC line inserted. He has remained hemodynamically stable. Objective Data Objective Data Vital Signs: Vital Signs Temp Pulse Resp BP Pulse Ox O2 Del Method 98 F 82 18 137/83 H 100 Room Air 09/04/23 08:00 09/04/23 08:00 09/04/23 08:00 09/04/23 08:00 09/04/23 08:00 09/04/23 08:00 Oxygen Delivery Method Room Air Weight: 258 lb 6.108 oz Body Mass Index (BMI) 36.0 Intake & Output: Intake and Output for Last 24 Hours 09/02/23 09/03/23 09/04/23 23:59 23:59 23:59 Intake Total 1600 / 1600 2852 / 2852 200 / 200 Balance 1600 / 1600 2852 / 2852 200 / 200 Lab / Micro Data 09/04/23 06:04 09/04/23 06:04 Labs: Laboratory Results - last 24 hr 09/03/23 11:27: POC Glucose 179 H 09/03/23 16:31: POC Glucose 119 H 09/03/23 23:06: POC Glucose 109 H 09/04/23 06:03: POC Glucose 138 H 09/04/23 06:04: WBC 5.4, RBC 4.38 L, Hgb 10.5 L, Hct 34.3 L, MCV 78.3 L, MCH 24.0 L, MCHC 30.6 L, RDW Std Deviation 39.4, RDW Coeff of Venita 13.8, Plt Count 261, MPV 9.7, Immature Gran % (Auto) 0.600, Neut % (Auto) 61.7, Lymph % (Auto) 18.6 L, Union % (Auto) 10.0, Eos % (Auto) 8.7 H, Baso % (Auto) 0.4, Absolute Neuts (auto) 3.3, Absolute Lymphs (auto) 1.00, Nucleated RBC % 0, Sodium 138, Potassium 3.4 L, Chloride 108 H, Carbon Dioxide 29.0, Anion Gap 1 L, BUN 24 H, Creatinine 0.89, Estim Creat Clear Calc 142.23, Est GFR (MDRD) Af Amer 121, Est GFR (MDRD) Non-Af 100, BUN/Creatinine Ratio 27.0 H, Glucose 150 H, Calcium 9.6 Micro: Microbiology 09/01/23 08:20 Bone - Left Foot Gram Stain - Final 09/01/23 08:20 Bone - Left Foot Wound Culture - Final Enterococcus faecalis Pseudomonas aeruginosa 09/01/23 08:20 Bone - Left Foot Anaerobic Culture - Final No anaerobic bacteria isolated. 09/01/23 08:20 Abs - Aerobic & Anaerobic Swabs Gram Stain - Final 09/01/23 08:20 Abs - Aerobic & Anaerobic Swabs Wound Culture - Final Enterococcus faecalis 09/01/23 08:20 Abs - Aerobic & Anaerobic Swabs Anaerobic Culture - Final No anaerobic bacteria isolated. 09/01/23 08:20 Abs - Aerobic & Anaerobic Swabs Gram Stain - Final 09/01/23 08:20 Abs - Aerobic & Anaerobic Swabs Wound Culture - Final Enterococcus faecalis 09/01/23 08:20 Abs - Aerobic & Anaerobic Swabs Anaerobic Culture - Final No anaerobic bacteria isolated. 08/30/23 11:55 Blood Culture (Wb) - Arm Right Blood Culture - Preliminary No growth in 48 hours. 08/30/23 11:56 Blood Culture (Wb) - Arm Left Blood Culture - Preliminary No growth in 48 hours. 08/30/23 11:58 Wound - Left Foot Gram Stain - Final 08/30/23 11:58 Wound - Left Foot Wound Culture - Final No growth aerobically. Physical Exam Const alert, oriented x3, no apparent distress and well nourished General Appearance: cooperative and well developed HEENT normocephalic, head/scalp atraumatic, moist oral mucous membranes, oropharynx normal and gingiva normal Eyes PERRL and EOMs intact bilaterally Neck no lymphadenopathy, supple, no JVD and thyroid normal Lymph Lymphatic: no lymphadenopathy noted and no lymphedema noted Resp normal respiratory effort, normal air movement and clear to auscultation bilaterally Cardio regular rate, regular rhythm, S1 normal heart sound, S2 normal heart sound and no murmurs Palpation: normal PMI GI normal to inspection, nondistended, normoactive bowel sounds, soft to palpation,non-tender and non-distended Extremity Extremity Narrative: left foot wrapped in bandage. Neuro CN's II-XII intact bilaterally, no focal motor deficits, no sensory deficits noted and deep tendon reflexes 2+ bilaterally Motor Exam: strength 5/5 throughout and general weakness Psych thought process normal, cooperative and affect normal Appearance: appropriate Assessment & Plan Assessment/Plan (1) Cellulitis of left lower limb: (2) Abscess of bursa, left ankle and foot: PLAN: Plan #Diabetic foot abscess and cellulitis of the LLE * Podiatry on board * he had I&D of LLE abscess and delayed primary closeure of LLE wound with application of graft or skin substitute to LLE medial ankle wounds. * Blood wound and blood cultures. Consult podiatry. * on IV vancomycin and cefepime * Wound cultures growing possible Enterococcus species as well as Pseudomonas. * ID on board; awaiting final rec's for antibiotics * #Hypertension: On losartan. IV hydralazine prn #Type 2 diabetes mellitus: On metformin and Rybelsus. ISS. Accuchecks ACHS #Hyperlipidemia: On statin DVT prophylaxis: Lovenox Charges/Coding Visit Charges Inpatient E&M: 76271 Subs Hosp L2 09/04/23 1357 <Electronically signed by Angélica Escalante MD> Angélica Escalante MD Cosigner Signature (if applicable): CC: ~ Signed [facility] Work Phone: 1(906) 811-906401-27-2024 Progress note Author Angélica [facility] September 03, 2023 1:37pm Note Date/Time September 03, 2023 1 1:04am [facility] Medical Records Department [address] [place] [address] Progress Note 09/03/23 1100 MR#: [id number] Acct: [id number] Name: SNEHA WEI JrGiovanny Rep #:[id number] : 1980 43 From: Angélica Escalante MD PCP: Dr. Liliane Epps, DO Status:ADM IN Location: [place] [id number] Subjective Subjective Patient seen and examined. He had no complaints and had an uneventful night. Review of systems is otherwise negative. Objective Data Objective Data Vital Signs: Vital Signs Temp Pulse Resp BP Pulse Ox O2 Del Method 98.0 F 90 18 118/83 H 100 Room Air 09/03/23 08:05 09/03/23 08:05 09/03/23 08:05 09/03/23 08:05 09/03/23 08:05 09/03/23 08:05 Oxygen Delivery Method Room Air Weight: 258 lb 6.108 oz Body Mass Index (BMI) 36.0 Intake & Output: Intake and Output for Last 24 Hours 09/01/23 09/02/23 09/03/23 23:59 23:59 23:59 Intake Total 739 / 739 1600 / 1600 200 / 200 Balance 739 / 739 1600 / 1600 200 / 200 Lab / Micro Data 09/03/23 02:45 09/03/23 02:45 Labs: Laboratory Results - last 24 hr 09/02/23 11:38: POC Glucose 161 H 09/02/23 16:47: POC Glucose 102 09/02/23 23:10: POC Glucose 113 H 09/03/23 02:45: WBC 5.7, RBC 4.01 L, Hgb 9.6 L, Hct 31.2 L, MCV 77.8 L, MCH 23.9L, MCHC 30.8 L, RDW Std Deviation 38.8, RDW Coeff of Venita 13.6, Plt Count 237, MPV 9.7, Immature Gran % (Auto) 0.500, Neut % (Auto) 60.8, Lymph % (Auto) 20.1, Union % (Auto) 10.0, Eos % (Auto) 8.2 H, Baso % (Auto) 0.4, Absolute Neuts (auto)3.5, Absolute Lymphs (auto) 1.15, Nucleated RBC % 0, Sodium 140, Potassium 3.6, Chloride 107, Carbon Dioxide 28.0, Anion Gap 5, BUN 20 H, Creatinine 0.78, EstimCreat Clear Calc 162.29, Est GFR (MDRD) Af Amer 140, Est GFR (MDRD) Non-Af 116, BUN/Creatinine Ratio 25.5 H, Glucose 123 H, Calcium 8.9, Vancomycin Trough 18.0 H Micro: Microbiology 09/01/23 08:20 Bone - Left Foot Gram Stain - Final 09/01/23 08:20 Bone - Left Foot Wound Culture - Final Enterococcus faecalis Pseudomonas aeruginosa 09/01/23 08:20 Bone - Left Foot Anaerobic Culture - Preliminary Checking for anaerobes, further studies to follow. 09/01/23 08:20 Abs - Aerobic & Anaerobic Swabs Gram Stain - Final 09/01/23 08:20 Abs - Aerobic & Anaerobic Swabs Wound Culture - Final Enterococcus faecalis 09/01/23 08:20 Abs - Aerobic & Anaerobic Swabs Anaerobic Culture - Final No anaerobic bacteria isolated. 09/01/23 08:20 Abs - Aerobic & Anaerobic Swabs Gram Stain - Final 09/01/23 08:20 Abs - Aerobic & Anaerobic Swabs Wound Culture - Final Enterococcus faecalis 09/01/23 08:20 Abs - Aerobic & Anaerobic Swabs Anaerobic Culture - Final No anaerobic bacteria isolated. 08/30/23 11:55 Blood Culture (Wb) - Arm Right Blood Culture - Preliminary No growth in 48 hours. 08/30/23 11:56 Blood Culture (Wb) - Arm Left Blood Culture - Preliminary No growth in 48 hours. 08/30/23 11:58 Wound - Left Foot Gram Stain - Final 08/30/23 11:58 Wound - Left Foot Wound Culture - Final No growth aerobically. Physical Exam Const alert, oriented x3, no apparent distress and well nourished General Appearance: cooperative and well developed HEENT normocephalic, head/scalp atraumatic, moist oral mucous membranes, oropharynx normal and gingiva normal Eyes PERRL and EOMs intact bilaterally Neck no lymphadenopathy, supple, no JVD and thyroid normal Lymph Lymphatic: no lymphadenopathy noted and no lymphedema noted Resp normal respiratory effort, normal air movement and clear to auscultation bilaterally Cardio regular rate, regular rhythm, S1 normal heart sound, S2 normal heart sound and no murmurs Palpation: normal PMI GI normal to inspection, nondistended, normoactive bowel sounds, soft to palpation,non-tender and non-distended Extremity Extremity Narrative: left foot wrapped in bandage. Neuro CN's II-XII intact bilaterally, no focal motor deficits, no sensory deficits noted and deep tendon reflexes 2+ bilaterally Motor Exam: strength 5/5 throughout and general weakness Psych thought process normal, cooperative and affect normal Appearance: appropriate Assessment & Plan Assessment/Plan (1) Cellulitis of left lower limb: (2) Abscess of bursa, left ankle and foot: PLAN: Plan #Diabetic foot abscess and cellulitis of the LLE * Podiatry on board * he had I&D of LLE abscess and delayed primary closeure of LLE wound with application of graft or skin substitute to LLE medial ankle wounds. * Blood wound and blood cultures. Consult podiatry. * on IV vancomycin and cefepime * Wound cultures growing possible Enterococcus species as well as Pseudomonas. * #Hypertension: On losartan. IV hydralazine prn #Type 2 diabetes mellitus: On metformin and Rybelsus. ISS. Accuchecks ACHS #Hyperlipidemia: On statin DVT prophylaxis: Lovenox 09/03/23 1337 <Electronically signed by Angélica Escalante MD> Angélica Escalante MD Cosigner Signature (if applicable): CC: ~ Signed [facility] Work Phone: 1(309) 890-497101-27-2024 Consult note Author Piero Pickett [facility] September 03, 2023 3:49am Note Date/Time September 03, 2023 3 :49am [facility] Medical Records Department [facility] [place] [address] Pharmacokinetic/Renal -Consult 09/03/23 0348 MR#: [id number] Acct: [id number] Name: SNEHA WEI Jr. Rep #:[id number] : 1980 43 From: Piero Zavala od PCP: Dr. Liliane Epps, DO Status:ADM IN Y Location: [place] [address] Consult Antibiotic Management Pharmacy has been consulted to manage selected antibiotic: Vancomycin Type of Intervention Type of Consult: Follow-up Labs Labs: Sodium 140 mmol/L (136-145) 09/03/23 02:45 Potassium 3.6 mmol/L (3.5-5.1) 09/03/23 02:45 Chloride 107 mmol/L (98-107) 09/03/23 02:45 Carbon Dioxide 28.0 mmol/L (21.0-32.0) 09/03/23 02:45 Anion Gap 5 (5-15) 09/03/23 02:45 BUN 20 mg/dL (7-18) H 09/03/23 02:45 Creatinine 0.78 mg/dL (0.70-1.30) 09/03/23 02:45 Est GFR (MDRD) Af Amer 140 mL/min (>60) 09/03/23 02:45 Est GFR (MDRD) Non-Af 116 mL/min (>60) 09/03/23 02:45 BUN/Creatinine Ratio 25.5 RATIO (10-20) H 09/03/23 02:45 Glucose 123 mg/dL (74-106) H 09/03/23 02:45 Vancomycin Trough 18.0 ug/mL (5.0-15.0) H 09/03/23 02:45 Random Vancomycin 12.4 ug/mL (0.0-15.0) 09/01/23 01:53 Microbiology Microbiology: Microbiology 08/30/23 11:55 Blood Culture (Wb) - Arm Right Blood Culture - Preliminary No growth in 48 hours. 08/30/23 11:56 Blood Culture (Wb) - Arm Left Blood Culture - Preliminary No growth in 48 hours. 09/01/23 08:20 Bone - Left Foot Gram Stain - Final 09/01/23 08:20 Bone - Left Foot Wound Culture - Preliminary GPC Poss Enterococcus sp Gram negative vance GNR Poss Pseudomonas sp 09/01/23 08:20 Bone - Left Foot Anaerobic Culture - Preliminary Checking for anaerobes, further studies to follow. 09/01/23 08:20 Abs - Aerobic & Anaerobic Swabs Gram Stain - Final 09/01/23 08:20 Abs - Aerobic & Anaerobic Swabs Wound Culture - Preliminary GPC Poss Enterococcus sp 09/01/23 08:20 Abs - Aerobic & Anaerobic Swabs Anaerobic Culture - Preliminary Checking for anaerobes, further studies to follow. 09/01/23 08:20 Abs - Aerobic & Anaerobic Swabs Gram Stain - Final 09/01/23 08:20 Abs - Aerobic & Anaerobic Swabs Wound Culture - Preliminary GPC Poss Enterococcus sp 09/01/23 08:20 Abs - Aerobic & Anaerobic Swabs Anaerobic Culture - Preliminary Checking for anaerobes, further studies to follow. 08/30/23 11:58 Wound - Left Foot Gram Stain - Final 08/30/23 11:58 Wound - Left Foot Wound Culture - Final No growth aerobically. Pharmacy Plan for Drug Dosing Pharmacy Plan for Drug Dosing: Pharmacy Service will continue to monitor and adjust dosing as required. TROUGH 18.0 @ 8 HOURS. NO CHANGES, FOLLOW UP TROUGH IN 2 DAYS Follow-Up Labs Follow-Up Labs: Trough: Vancomycin Date/Time Labs Ordered Labs to be done on [date and time ordered]: 09/05 @ 0230 09/03/23 0349 <Electronically signed by Piero toledo> Date _ Piero West Signature (if applicable): Date CC: ~ Signed [facility] Work Phone: 1(480) 600-239501-26-2024 Progress note Author Angélica Escalante [facility] September 02, 2023 4:43pm Note Date/Time September 02, 2023 1 2:35pm [facility] Medical Records Department [address] [place] [address] Progress Note 09/02/23 1231 MR#: [id number] Acct: [id number] Name: SNEHA WEI Jr. Rep #:[id number] : 1980 43 From: Angélica Escalante MD PCP: Dr. Liliane Epps, DO Status:ADM IN Location: [facility] [id number] Subjective Subjective Patient seen and examined. He feels well and had no complaints. He had an uneventful night. Review of symptoms otherwise negative. Pain is well-controlled. Today's postop day 1. He has remained hemodynamically stable. Objective Data Objective Data Vital Signs: Vital Signs Temp Pulse Resp BP Pulse Ox O2 Del Method 97.8 F 80 18 134/78 H 100 Room Air 09/02/23 08:33 09/02/23 08:33 09/02/23 08:33 09/02/23 08:33 09/02/23 08:33 09/02/23 08:33 Oxygen Delivery Method Room Air Weight: 258 lb 6.108 oz Body Mass Index (BMI) 36.0 Intake & Output: Intake and Output for Last 24 Hours 08/31/23 09/01/23 09/02/23 23:59 23:59 23:59 Intake Total 2210.00 / 2210.00 739 / 739 250 / 250 Balance 2210.00 / 2210.00 739 / 739 250 / 250 Lab / Micro Data 09/02/23 02:40 09/02/23 02:40 Labs: Laboratory Results - last 24 hr 09/01/23 16:33: POC Glucose 98 09/01/23 22:38: POC Glucose 98 09/02/23 02:40: WBC 5.7, RBC 4.02 L, Hgb 9.6 L, Hct 31.3 L, MCV 77.9 L, MCH 23.9L, MCHC 30.7 L, RDW Std Deviation 38.6, RDW Coeff of Venita 13.6, Plt Count 237, MPV 9.4, Immature Gran % (Auto) 0.500, Neut % (Auto) 56.9, Lymph % (Auto) 23.9, Union % (Auto) 9.4, Eos % (Auto) 9.1 H, Baso % (Auto) 0.2, Absolute Neuts (auto) 3.3, Absolute Lymphs (auto) 1.37, Nucleated RBC % 0, Sodium 141, Potassium 3.6, Chloride 107, Carbon Dioxide 29.0, Anion Gap 5, BUN 21 H, Creatinine 0.79, EstimCreat Clear Calc 160.23, Est GFR (MDRD) Af Amer 138, Est GFR (MDRD) Non-Af 114, BUN/Creatinine Ratio 26.5 H, Glucose 102, Calcium 9.1, Vancomycin Trough 19.0 H 09/02/23 06:11: POC Glucose 109 H 09/02/23 11:38: POC Glucose 161 H Micro: Microbiology 09/01/23 08:20 Bone - Left Foot Gram Stain - Final 09/01/23 08:20 Bone - Left Foot Wound Culture - Preliminary GPC Poss Enterococcus sp Gram negative vance GNR Poss Pseudomonas sp 09/01/23 08:20 Bone - Left Foot Anaerobic Culture - Preliminary Checking for anaerobes, further studies to follow. 09/01/23 08:20 Abs - Aerobic & Anaerobic Swabs Gram Stain - Final 09/01/23 08:20 Abs - Aerobic & Anaerobic Swabs Wound Culture - Preliminary GPC Poss Enterococcus sp 09/01/23 08:20 Abs - Aerobic & Anaerobic Swabs Anaerobic Culture - Preliminary Checking for anaerobes, further studies to follow. 09/01/23 08:20 Abs - Aerobic & Anaerobic Swabs Gram Stain - Final 09/01/23 08:20 Abs - Aerobic & Anaerobic Swabs Wound Culture - Preliminary GPC Poss Enterococcus sp 09/01/23 08:20 Abs - Aerobic & Anaerobic Swabs Anaerobic Culture - Preliminary Checking for anaerobes, further studies to follow. 08/30/23 11:58 Wound - Left Foot Gram Stain - Final 08/30/23 11:58 Wound - Left Foot Wound Culture - Final No growth aerobically. Radiography Diagnostic Testing: Radiology Impression Chest X-Ray 09/01/23 10:15 IMPRESSION: Incomplete expansion of the lungs. Mild atelectasis suggested in the left lung base. Otherwise lungs clear. Electronically Signed: Pako Smith MD at 17:35 EST , Physical Exam Const alert, oriented x3, no apparent distress and well nourished General Appearance: cooperative and well developed HEENT normocephalic, head/scalp atraumatic, moist oral mucous membranes, oropharynx normal and gingiva normal Eyes PERRL and EOMs intact bilaterally Neck no lymphadenopathy, supple, no JVD and thyroid normal Lymph Lymphatic: no lymphadenopathy noted and no lymphedema noted Resp normal respiratory effort, normal air movement and clear to auscultation bilaterally Cardio regular rate, regular rhythm, S1 normal heart sound, S2 normal heart sound and no murmurs Palpation: normal PMI GI normal to inspection, nondistended, normoactive bowel sounds, soft to palpation,non-tender and non-distended Extremity Extremity Narrative: left foot wrapped in bandage. Neuro CN's II-XII intact bilaterally, no focal motor deficits, no sensory deficits noted and deep tendon reflexes 2+ bilaterally Motor Exam: strength 5/5 throughout and general weakness Psych thought process normal, cooperative and affect normal Appearance: appropriate Assessment & Plan Assessment/Plan (1) Cellulitis of left lower limb: (2) Abscess of bursa, left ankle and foot: PLAN: Plan #Diabetic foot abscess and cellulitis of the LLE * Podiatry on board * he had I&D of LLE abscess and delayed primary closeure of LLE wound with appli cation of graft or skin substitute to LLE medial ankle wounds. * Blood wound and blood cultures. Consult podiatry. * on IV vancomycin and cefepime * Wound cultures growing possible Enterococcus species as well as Pseudomonas. * #Hypertension: On losartan. IV hydralazine prn #Type 2 diabetes mellitus: On metformin and Rybelsus. ISS. Accuchecks ACHS #Hyperlipidemia: On statin DVT prophylaxis: Lovenox Charges/Coding Visit Charges Inpatient E&M: 29316 Subs Hosp L2 09/02/23 1643 <Electronically signed by Angélica Escalante MD> Angélica Escalante MD Cosigner Signature (if applicable): CC: ~ Signed [facility] Work Phone: 1(999) 297-550101-26-2024 Procedure [facility] 09-02-2023 Consult note Author Yoan Vee [facility] September 02, 2023 12:29pm Note Date/Time September 02, 2023 1 2:29pm [facility] Medical Records Department [facility] [place] [address] Consultation - Infectious Dx 09/02/23 1225 MR#: [id number] Acct: [id number] Name: SNEHA WEI Jr. Rep #:[id number] : 1980 43 From: Yoan sanabria MD PCP: Dr. Liliane Epps, DO Status:ADM [place] [facility] [place] Assessment & Plan Assessment/Plan (1) Osteomyelitis of ankle, left, acute: PLAN: L foot osteo and abscess complicated by hardware - taken to OR 09/01/[address] Perkins for I&D. Cxs so far showing enterococcus, GNR, PsA-like. Cont vanc/cefepime, will add flagyl. Will order picc. Will follow, thank you (2) Charcot foot due to diabetes mellitus: HPI Consult Data Date of Consult: 09/02/23 HPI Narrative Reason for Consultation: osteo HPI Narrative: SNEHA WEI, is a 43 M with DM neuropathy, had surgery early July for Charcot foot reconstruction, hardware in place. Did well post op until cast waschanged a week ago, then found on followup 08/29 to have new wound and purulence from L lateral foot. No fever or chills, no new n/v/d, no recent abx. Taken to OR 09/01/[address] Perkins for I&D. Full ROS performed and neg except as noted above. [facility] Medical History Dietary restriction Gas gangrene of foot History of edema Hypertension Osteomyelitis of ankle or foot, left, acute Type 2 diabetes mellitus with diabetic polyneuropathy Wears glasses Home Medications metformin 1,000 mg tablet 1,000 mg PO BID diabetes 11/14/21 [History Last Taken 08/30/23] calcium citrate 200 mg (950 mg) tablet 200 mg PO DAILY SUPPLEMENT 11/24/21 [History Last Taken 08/30/23] multivitamin 1 tab PO DAILY SUPPLEMENT 11/24/21 [History Last Taken 08/30/23] losartan 25 mg tablet 25 mg PO DAILY BLOOD PRESSURE 09/15/22 [History Last Taken 08/30/23] semaglutide 14 mg tablet (Rybelsus) 14 mg PO DAILY DIABETES 07/06/23 [History Last Taken 08/30/23] ascorbic acid (vitamin C) 1,000 mg tablet,extended release (C Complex) 1,000 mg PO DAILY SUPPLEMENT 08/30/23 [History Last Taken 08/30/23] omega 0-tvw-tbf-fish oil 300 mg-1,000 mg capsule (Fish Oil) 2 cap PO DAILY SUPPLEMENT 08/30/23 [History Last Taken 08/30/23] pravastatin 80 mg tablet 80 mg PO QHS CHOLESTEROL 08/30/23 [History Last Taken 08/29/23] Allergy/AdvReac Type Severity Reaction Status Date / Time Penicillins [PCN] Allergy Rash Verified 08/30/23 10:45 Surgical History Hx of eye surgery Hx of foot surgery Hx of foot surgery Social History Smoking Status: Never smoker Physical Exam Const alert, oriented x3 and no apparent distress General Appearance: cooperative HEENT normocephalic and head/scalp atraumatic Eyes PERRL and EOMs intact bilaterally Neck supple and No nodes Resp normal air movement and clear to auscultation bilaterally Cardio regular rate and regular rhythm GI soft to palpation, non-tender and non-distended Skin Skin Narrative: LLE wrapped Neuro CN's II-XII intact bilaterally Lab / Micro Data Attestation: I reviewed the patient's lab results. 09/02/23 02:40 09/02/23 02:40 Labs: Laboratory Results - last 24 hr 09/01/23 16:33: POC Glucose 98 09/01/23 22:38: POC Glucose 98 09/02/23 02:40: WBC 5.7, RBC 4.02 L, Hgb 9.6 L, Hct 31.3 L, MCV 77.9 L, MCH 23.9 L, MCHC 30.7 L, RDW Std Deviation 38.6, RDW Coeff of Venita 13.6, Plt Count 237, MPV 9.4, Immature Gran % (Auto) 0.500, Neut % (Auto) 56.9, Lymph % (Auto) 23.9, Union % (Auto) 9.4, Eos % (Auto) 9.1 H, Baso % (Auto) 0.2, Absolute Neuts (auto) 3.3, Absolute Lymphs (auto) 1.37, Nucleated RBC % 0, Sodium 141, Potassium 3.6, Chloride 107, Carbon Dioxide 29.0, Anion Gap 5, BUN 21 H, Creatinine 0.79, Estim Creat Clear Calc 160.23, Est GFR (MDRD) Af Amer 138, Est GFR (MDRD) Non-Af 114, BUN/Creatinine Ratio 26.5 H, Glucose 102, Calcium 9.1, Vancomycin Trough 19.0 H 09/02/23 06:11: POC Glucose 109 H 09/02/23 11:38: POC Glucose 161 H Micro: Microbiology 09/01/23 08:20 Bone - Left Foot Gram Stain - Final 09/01/23 08:20 Bone - Left Foot Wound Culture - Preliminary GPC Poss Enterococcus sp Gram negative vance GNR Poss Pseudomonas sp 09/01/23 08:20 Bone - Left Foot Anaerobic Culture - Preliminary Checking for anaerobes, further studies to follow. 09/01/23 08:20 Abs - Aerobic & Anaerobic Swabs Gram Stain - Final 09/01/23 08:20 Abs - Aerobic & Anaerobic Swabs Wound Culture - Preliminary GPC Poss Enterococcus sp 09/01/23 08:20 Abs - Aerobic & Anaerobic Swabs Anaerobic Culture - Preliminary Checking for anaerobes, further studies to follow. 09/01/23 08:20 Abs - Aerobic & Anaerobic Swabs Gram Stain - Final 09/01/23 08:20 Abs - Aerobic & Anaerobic Swabs Wound Culture - Preliminary GPC Poss Enterococcus sp 09/01/23 08:20 Abs - Aerobic & Anaerobic Swabs Anaerobic Culture - Preliminary Checking for anaerobes, further studies to follow. 08/30/23 11:58 Wound - Left Foot Gram Stain - Final 08/30/23 11:58 Wound - Left Foot Wound Culture - Final No growth aerobically. Imagaing Radiology Impression Chest X-Ray 09/01/23 10:15 IMPRESSION: Incomplete expansion of the lungs. Mild atelectasis suggested in the left lung base. Otherwise lungs clear. Electronically Signed: Pako Smith MD at 17:35 EST , 09/02/23 1229 <Electronically signed by Yoan Vee MD> Cosigner Signature (if applicable): CC: DPLd Dr. Jordi Gregorio; Dr. Liliane Epps, ; Dr. Yoan Vee MD~ Signed [facility] Work Phone: 1(180) 235-620501-26-2024 Progress note Author Jordi Perkins [facility] September 02, 2023 9:09am Note Date/Time September 02, 2023 9 :09am [facility] Medical Records Department [address] [place] [address] Progress Note 09/02/23 0908 MR#: [id number] Acct: [id number] Name: SNEHA WEI Jr. Rep #:[id number] : 1980 43 From: Jordi Perkins DPM PCP: Dr. Liliane Epps DO Status:ADM IN [place] [facility] [place]-4 Subjective Subjective 1 day postop denies constitutional's pain at current. No complaints overnight. Some strikethrough to dressing. Objective Data Objective Data Vital Signs: Vital Signs Temp Pulse Resp BP Pulse Ox O2 Del Method 97.8 F 80 18 134/78 H 100 Room Air 09/02/23 08:33 09/02/23 08:33 09/02/23 08:33 09/02/23 08:33 09/02/23 08:33 09/02/23 08:33 Oxygen Delivery Method Room Air Weight: 117.2 kg Body Mass Index (BMI) 36.0 Intake & Output: Intake and Output for Last 24 Hours 08/31/23 09/01/23 09/02/23 23:59 23:59 23:59 Intake Total 2210.00 / 2210.00 739 / 739 200 / 200 Balance 2210.00 / 2210.00 739 / 739 200 / 200 Lab / Micro Data 09/02/23 02:40 09/02/23 02:40 Labs: Laboratory Results - last 24 hr 09/01/23 01:53: Prealbumin 19.9 L 09/01/23 11:02: POC Glucose 101 09/01/23 16:33: POC Glucose 98 09/01/23 22:38: POC Glucose 98 09/02/23 02:40: WBC 5.7, RBC 4.02 L, Hgb 9.6 L, Hct 31.3 L, MCV 77.9 L, MCH 23.9L, MCHC 30.7 L, RDW Std Deviation 38.6, RDW Coeff of Venita 13.6, Plt Count 237, MPV 9.4, Immature Gran % (Auto) 0.500, Neut % (Auto) 56.9, Lymph % (Auto) 23.9, Union % (Auto) 9.4, Eos % (Auto) 9.1 H, Baso % (Auto) 0.2, Absolute Neuts (auto) 3.3, Absolute Lymphs (auto) 1.37, Nucleated RBC % 0, Sodium 141, Potassium 3.6, Chloride 107, Carbon Dioxide 29.0, Anion Gap 5, BUN 21 H, Creatinine 0.79, EstimCreat Clear Calc 160.23, Est GFR (MDRD) Af Amer 138, Est GFR (MDRD) Non-Af 114, BUN/Creatinine Ratio 26.5 H, Glucose 102, Calcium 9.1, Vancomycin Trough 19.0 H 09/02/23 06:11: POC Glucose 109 H Micro: Microbiology 09/01/23 08:20 Bone - Left Foot Gram Stain - Final 09/01/23 08:20 Abs - Aerobic & Anaerobic Swabs Gram Stain - Final 09/01/23 08:20 Abs - Aerobic & Anaerobic Swabs Gram Stain - Final 08/30/23 11:58 Wound - Left Foot Gram Stain - Final 08/30/23 11:58 Wound - Left Foot Wound Culture - Final No growth aerobically. Radiography Diagnostic Testing: Radiology Impression Chest X-Ray 09/01/23 10:15 IMPRESSION: Incomplete expansion of the lungs. Mild atelectasis suggested in the left lung base. Otherwise lungs clear. Electronically Signed: Pako Smith MD at 17:35 EST , Physical Exam Narrative Left lower extremity wound was examined today no residual purulence to the lateral ankle. Medial ankle wounds appear healthy granular as well. No active bleeding at current. No sign DVT. Assessment & Plan Assessment/Plan (1) Osteomyelitis of ankle, left, acute: PLAN: Exam performed Wound appears healthy today. Redressed Betadine soaked gauze 4 x 4's Kerlix Martha bandage Patient on Vanco cefepime. Initial cultures positive for vancomycin sensitive Enterococcus faecalis. Recommend ID consult PICC line placement for limb salvage. Will continue to follow closely Patient nonweightbearing to left lower extremity Continue daily dressing changes Will likely plan for home health care dressing changes upon discharge (2) Charcot foot due to diabetes mellitus: (3) Abscess of bursa, left ankle and foot: (4) Cellulitis of left lower limb: (5) Non-pressure chronic ulcer of left 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: 09/02/23 0909 <Electronically signed by Jordi Perkins DPM> Jordi Perkins DPM Cosigner Signature (if applicable): CC: ~ Signed [facility] Work Phone: 1(404) 383-401801-26-2024 Consult note Author Piero Pickett [facility] September 02, 2023 3:24am Note Date/Time September 02, 2023 3 :24am [facility] Medical Records Department [address] [place] [address] Pharmacokinetic/Renal -Consult 09/02/23 0323 MR#: [id number] Acct: [id number] Name: SNEHA WEI Rep #:[id number] : 1980 43 From: Piero Zavala od PCP: Dr. Liliane pEps, DO Status:ADM IN Location: [place] 285937-1 Consult Antibiotic Management Pharmacy has been consulted to manage selected antibiotic: Vancomycin Type of Intervention Type of Consult: Follow-up Labs Labs: Sodium 141 mmol/L (136-145) 09/02/23 02:40 Potassium 3.6 mmol/L (3.5-5.1) 09/02/23 02:40 Chloride 107 mmol/L (98-107) 09/02/23 02:40 Carbon Dioxide 29.0 mmol/L (21.0-32.0) 09/02/23 02:40 Anion Gap 5 (5-15) 09/02/23 02:40 BUN 21 mg/dL (7-18) H 09/02/23 02:40 Creatinine 0.79 mg/dL (0.70-1.30) 09/02/23 02:40 Est GFR (MDRD) Af Amer 138 mL/min (>60) 09/02/23 02:40 Est GFR (MDRD) Non-Af 114 mL/min (>60) 09/02/23 02:40 BUN/Creatinine Ratio 26.5 RATIO (10-20) H 09/02/23 02:40 Glucose 102 mg/dL (74-106) 09/02/23 02:40 Vancomycin Trough 19.0 ug/mL (5.0-15.0) H 09/02/23 02:40 Random Vancomycin 12.4 ug/mL (0.0-15.0) 09/01/23 01:53 Microbiology Microbiology: Microbiology 09/01/23 08:20 Bone - Left Foot Gram Stain - Final 09/01/23 08:20 Abs - Aerobic & Anaerobic Swabs Gram Stain - Final 09/01/23 08:20 Abs - Aerobic & Anaerobic Swabs Gram Stain - Final 08/30/23 11:58 Wound - Left Foot Gram Stain - Final 08/30/23 11:58 Wound - Left Foot Wound Culture - Final No growth aerobically. Pharmacy Plan for Drug Dosing Pharmacy Plan for Drug Dosing: Pharmacy Service will continue to monitor and adjust dosing as required. TROUGH 19.0 @ 8.5 HOURS. NO CHANGES, FOLLOW UP TROUGH IN 1 DAY Follow-Up Labs Follow-Up Labs: Trough: Vancomycin Date/Time Labs Ordered Labs to be done on [date and time ordered]: 09/03 @ 0230 09/02/23323 <Electronically signed by Piero toledo> Date _ Piero West Signature (if applicable): Date CC: ~ Signed [facility] Work Phone: 1(451) 635-418001-25-2024 Progress note Author Angélica Escalante [facility] September 01, 2023 4:24pm Note Date/Time September 01, 2023 1 :18pm [facility] Medical Records Department [address] [place] [address] Progress Note 09/01/23 1314 MR#: [id number] Acct: [id number] Name: SNEHA WEI Jr. Rep #:[id number] : 1980 43 From: Angélica Escalante MD PCP: Dr. Liliane Epps, DO Status:ADM IN Location: [facility] NK274-1 Subjective Subjective Patient seen and examined. He had no active complaints. He had I&D of the left lower extremity,wth delayed primary closure of left lower extremity wound and wound debridement. He was seen after surgery. He had no active complaints. Review of systems is otherwise negative. Objective Data Objective Data Vital Signs: Vital Signs Temp Pulse Resp BP Pulse Ox O2 Del Method 98 F 80 16 117/72 94 Room Air 09/01/23 09:15 09/01/23 09:15 09/01/23 09:15 09/01/23 09:15 09/01/23 09:15 09/01/23 09:20 Oxygen Delivery Method Room Air Weight: 258 lb 6.108 oz Body Mass Index (BMI) 36.0 Intake & Output: Intake and Output for Last 24 Hours 08/30/23 08/31/23 09/01/23 23:59 23:59 23:59 Intake Total 1040 / 1040 2210.00 / 2210.00 489 / 489 Balance 1040 / 1040 2210.00 / 2210.00 489 / 489 Lab / Micro Data 09/01/23 01:53 09/01/23 01:53 Labs: Laboratory Results - last 24 hr 08/31/23 12:45: Vancomycin Trough 24.8 H 08/31/23 16:48: POC Glucose 127 H 08/31/23 23:08: POC Glucose 106 09/01/23 01:53: WBC 5.6, RBC 4.23 L, Hgb 10.2 L, Hct 33.5 L, MCV 79.2 L, MCH 24.1 L, MCHC 30.4 L, RDW Std Deviation 39.2, RDW Coeff of Venita 13.8, Plt Count 244, MPV 9.6, Immature Gran % (Auto) 0.200, Neut % (Auto) 53.8, Lymph % (Auto) 25.4, Union % (Auto) 9.6, Eos % (Auto) 10.5 H, Baso % (Auto) 0.5, Absolute Neuts (auto) 3.0, Absolute Lymphs (auto) 1.42, Nucleated RBC % 0, Sodium 140, Potassium 3.5, Chloride 109 H, Carbon Dioxide 30.0, Anion Gap 1 L, BUN 20 H, Creatinine 0.85, Estim Creat Clear Calc 148.81, Est GFR (MDRD) Af Amer 128, Est GFR (MDRD) Non-Af 106, BUN/Creatinine Ratio 23.6 H, Glucose 104, Hemoglobin A1c 6.0 H, Calcium 9.3, Prealbumin 19.9 L, Random Vancomycin 12.4 09/01/23 06:19: POC Glucose 109 H 09/01/23 11:02: POC Glucose 101 Micro: Microbiology 08/30/23 11:58 Wound - Left Foot Gram Stain - Final 08/30/23 11:58 Wound - Left Foot Wound Culture - Final No growth aerobically. Physical Exam Const alert, oriented x3, no apparent distress and well nourished General Appearance: cooperative and well developed HEENT normocephalic, head/scalp atraumatic, moist oral mucous membranes, oropharynx normal and gingiva normal Eyes PERRL and EOMs intact bilaterally Neck no lymphadenopathy, supple, no JVD and thyroid normal Lymph Lymphatic: no lymphadenopathy noted and no lymphedema noted Resp normal respiratory effort, normal air movement and clear to auscultation bilaterally Cardio regular rate, regular rhythm, S1 normal heart sound, S2 normal heart sound and no murmurs Palpation: normal PMI GI normal to inspection, nondistended, normoactive bowel sounds, soft to palpation,non-tender and non-distended Extremity Extremity Narrative: left foot wrapped in bandage. Neuro CN's II-XII intact bilaterally, no focal motor deficits, no sensory deficits noted and deep tendon reflexes 2+ bilaterally Motor Exam: strength 5/5 throughout and general weakness Psych thought process normal, cooperative and affect normal Appearance: appropriate Assessment & Plan Assessment/Plan (1) Cellulitis of left lower limb: (2) Abscess of bursa, left ankle and foot: PLAN: Plan #Diabetic foot abscess and cellulitis of the LLE * Podiatry on board * he had I&D of LLE abscess and delayed primary closeure of LLE wound with hubert lication of graft or skin substitute to LLE medial ankle wounds. * Blood wound and blood cultures. Consult podiatry. * on IV vancomycin and cefepime * wound and blood cultures pending * #Hypertension: On losartan. IV hydralazine prn #Type 2 diabetes mellitus: On metformin and Rybelsus. ISS. Accuchecks ACHS #Hyperlipidemia: On statin DVT prophylaxis: Lovenox Charges/Coding Visit Charges Inpatient E&M: 83606 Subs Hosp L2 09/01/23 1624 <Electronically signed by Angélica Escalante MD> Angélica Escalante MD Cosigner Signature (if applicable): CC: ~ Signed [facility] Work Phone: 1(171) 448-369501-25-2024 Consult note Author Jordi Perkins [facility] September 01, 2023 9:00am Note Date/Time September 01, 2023 9 :00am [facility] Medical Records Department [address] [place] [address] Consultation 09/01/23 0859 MR#: [id number] Acct: [id number] Name: SNEHA WEI Rep #:[id number] : 1980 43 From: Jordi Perkins DPM PCP: Dr. Liliane Epps, DO Status:ADM IN [place] [facility] [place] Assessment & Plan Assessment/Plan (1) Osteomyelitis of ankle, left, acute: PLAN: Exam performed I&D today for abscess with delayed primary closure Recommend ID consultation for IV antibiotic management and PICC line placement Patient will require home health care dressing changes 3 times a week for left lower extremity wound packing Patient continue nonweightbearing left lower extremity Will plan for HBO therapy, checks x-ray, EKG, prealbumin, hemoglobin A1c orderedfor additional workup Will follow closely (2) Charcot foot due to diabetes mellitus: (3) Abscess of bursa, left ankle and foot: (4) Cellulitis of left lower limb: (5) Non-pressure chronic ulcer of left 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: (6) Type 2 diabetes mellitus with diabetic polyneuropathy: QUALIFIERS: Diabetes mellitus nursing home insulin use: without nursing home use Qualified Code(s): E11.42 - Type 2 diabetes mellitus with diabetic polyneuropathy HPI Consult Data Date of Consult: 09/01/23 HPI Narrative HPI Narrative: SNEHA WEI, is a 43 M who presents left lower extremity abscess. For incision and drainage abscess today. [facility] Medical History (Updated 09/01/23 @ 08:[address] Jordi Perkins, DPM) Dietary restriction Gas gangrene of foot History of edema Hypertension Osteomyelitis of ankle or foot, left, acute Type 2 diabetes mellitus with diabetic polyneuropathy Wears glasses Home Medications metformin 1,000 mg tablet 1,000 mg PO BID diabetes 11/14/21 [History Last Taken 08/30/23] calcium citrate 200 mg (950 mg) tablet 200 mg PO DAILY SUPPLEMENT 11/24/21 [History Last Taken 08/30/23] multivitamin 1 tab PO DAILY SUPPLEMENT 11/24/21 [History Last Taken 08/30/23] losartan 25 mg tablet 25 mg PO DAILY BLOOD PRESSURE 09/15/22 [History Last Taken 08/30/23] semaglutide 14 mg tablet (Rybelsus) 14 mg PO DAILY DIABETES 07/06/23 [History Last Taken 08/30/23] ascorbic acid (vitamin C) 1,000 mg tablet,extended release (C Complex) 1,000 mg PO DAILY SUPPLEMENT 08/30/23 [History Last Taken 08/30/23] omega 7-fff-rov-fish oil 300 mg-1,000 mg capsule (Fish Oil) 2 cap PO DAILY SUPPLEMENT 08/30/23 [History Last Taken 08/30/23] pravastatin 80 mg tablet 80 mg PO QHS CHOLESTEROL 08/30/23 [History Last Taken 08/29/23] Allergy/AdvReac Type Severity Reaction Status Date / Time Penicillins [PCN] Allergy Rash Verified 08/30/23 10:45 Surgical History Hx of eye surgery Hx of foot surgery Hx of foot surgery Social History Smoking Status: Never smoker Physical Exam Narrative Purulent draining abscess noted to left lower extremity lateral ankle at site of TTC fusion for Charcot reconstruction. Lab / Micro Data 09/01/23 01:53 09/01/23 01:53 Labs: Laboratory Results - last 24 hr 08/31/23 10:50: POC Glucose 128 H 08/31/23 12:45: Vancomycin Trough 24.8 H 08/31/23 16:48: POC Glucose 127 H 08/31/23 23:08: POC Glucose 106 09/01/23 01:53: WBC 5.6, RBC 4.23 L, Hgb 10.2 L, Hct 33.5 L, MCV 79.2 L, MCH 24.1 L, MCHC 30.4 L, RDW Std Deviation 39.2, RDW Coeff of Venita 13.8, Plt Count 244, MPV 9.6, Immature Gran % (Auto) 0.200, Neut % (Auto) 53.8, Lymph % (Auto) 25.4, Union % (Auto) 9.6, Eos % (Auto) 10.5 H, Baso % (Auto) 0.5, Absolute Neuts (auto) 3.0, Absolute Lymphs (auto) 1.42, Nucleated RBC % 0, Sodium 140, Potassium 3.5, Chloride 109 H, Carbon Dioxide 30.0, Anion Gap 1 L, BUN 20 H, Creatinine 0.85, Estim Creat Clear Calc 148.81, Est GFR (MDRD) Af Amer 128, Est GFR (MDRD) Non-Af 106, BUN/Creatinine Ratio 23.6 H, Glucose 104, Hemoglobin A1c 6.0 H, Calcium 9.3, Random Vancomycin 12.4 09/01/23 06:19: POC Glucose 109 H Micro: Microbiology 08/30/23 11:58 Wound - Left Foot Gram Stain - Final 08/30/23 11:58 Wound - Left Foot Wound Culture - Final No growth aerobically. 09/01/23 0900 <Electronically signed by Jordi Perkins DPM> Cosigner Signature (if applicable): CC: Dr. Liliane Epps, DO~ Signed [facility] Work Phone: 1(499) 433-655601-25-2024 [facility] Consult note Author Piero Pickett [facility] September 01, 2023 2:56am Note Date/Time September 01, 2023 2 :56am [facility] Medical Records Department [address] [place] [address] Pharmacokinetic/Renal -Consult 09/01/23 0255 MR#: [id number] Acct: [id number] Name: SNEHA WEI Jr. Rep #:[id number] : 1980 43 From: Piero Zavala od PCP: Dr. Liliane Epps, DO Status:ADM IN [place] [facility] [place]693-8 Consult Antibiotic Management Pharmacy has been consulted to manage selected antibiotic: Vancomycin Type of Intervention Type of Consult: Follow-up Labs Labs: Sodium 140 mmol/L (136-145) 09/01/23 01:53 Potassium 3.5 mmol/L (3.5-5.1) 09/01/23 01:53 Chloride 109 mmol/L (98-107) H 09/01/23 01:53 Carbon Dioxide 30.0 mmol/L (21.0-32.0) 09/01/23 01:53 Anion Gap 1 (5-15) L 09/01/23 01:53 BUN 20 mg/dL (7-18) H 09/01/23 01:53 Creatinine 0.85 mg/dL (0.70-1.30) 09/01/23 01:53 Est GFR (MDRD) Af Amer 128 mL/min (>60) 09/01/23 01:53 Est GFR (MDRD) Non-Af 106 mL/min (>60) 09/01/23 01:53 BUN/Creatinine Ratio 23.6 RATIO (10-20) H 09/01/23 01:53 Glucose 104 mg/dL (74-106) 09/01/23 01:53 Vancomycin Trough 24.8 ug/mL (5.0-15.0) H 08/31/23 12:45 Random Vancomycin 12.4 ug/mL (0.0-15.0) 09/01/23 01:53 Microbiology Microbiology: Microbiology 08/30/23 11:58 Wound - Left Foot Gram Stain - Final Pharmacy Plan for Drug Dosing Pharmacy Plan for Drug Dosing: Pharmacy Service will continue to monitor and adjust dosing as required. RANDOM LEVEL 12.4 @ 21 HOURS. START 1GM Q8H AND FOLLOW UP TROUGH PRIOR TO 4TH DOSE Follow-Up Labs Follow-Up Labs: Trough: Vancomycin Date/Time Labs Ordered Labs to be done on [date and time ordered]: 09/02 @ 0230 09/01/23 0256 <Electronically signed by Piero toledo> Date _ Piero West Signature (if applicable): Date CC: ~ Signed [facility] Work Phone: 1(490) 403-815201-24-2024 Progress note Author [facility] August 31, 2023 3:29pm Note Date/Time August 31, 2023 1 1:[address] [place] [address] Health System Medical Records Department [address] [place] [address] Progress Note 08/31/23 1146 MR#: [id number] Acct: [id number] Name: SNEHA WEI Jr. Rep #:[id number] : 1980 43 From: Angélica Escalante MD PCP: Dr. Liliane Epps, DO Status:ADM IN Location: [place] [address] Subjective Subjective Patient seen and examined. He feels well today and has no active complaints. He had an uneventful night. Review of systems is otherwise negative. He is for surgery tomorrow Objective Data Objective Data Vital Signs: Vital Signs Temp Pulse Resp BP Pulse Ox O2 Del Method 97.7 F L 88 16 142/92 H 98 Room Air 08/31/23 08:40 08/31/23 08:40 08/31/23 08:40 08/31/23 08:40 08/31/23 08:40 08/31/23 08:40 Oxygen Delivery Method Room Air Weight: 258 lb 0.006 oz Body Mass Index (BMI) 35.9 Intake & Output: Intake and Output for Last 24 Hours 08/29/23 08/30/23 08/31/23 23:59 23:59 23:59 Intake Total 1040 / 1040 2160.00 / 2160.00 Balance 1040 / 1040 2160.00 / 2160.00 Lab / Micro Data 08/31/23 06:54 08/31/23 06:54 Labs: Laboratory Results - last 24 hr 08/30/23 11:56: WBC 5.0, RBC 4.75, Hgb 11.4 L, Hct 37.4 L, MCV 78.7 L, MCH 24.0 L, MCHC 30.5 L, RDW Std Deviation 39.0, RDW Coeff of Venita 13.5, Plt Count 267, MPV 9.7, Immature Gran % (Auto) 0.400, Neut % (Auto) 66.3, Lymph % (Auto) 17.1 L, Union % (Auto) 7.8, Eos % (Auto) 8.0 H, Baso % (Auto) 0.4, Absolute Neuts (auto) 3.3, Absolute Lymphs (auto) 0.86, Nucleated RBC % 0, Sodium 139, Potassium 4.0, Chloride 106, Carbon Dioxide 27.0, Anion Gap 6, BUN 17, Creatinine 0.92, Estim Creat Clear Calc 138.19, Est GFR (MDRD) Af Amer 117, Est GFR (MDRD) Non-Af 97, BUN/Creatinine Ratio 18.6, Glucose 107 H, Calcium 9.8, Total Bilirubin 0.50, AST 17, ALT 22, Alkaline Phosphatase 114, Total Protein 7.8, Albumin 3.7, Globulin 4.1, Albumin/Globulin Ratio 0.9 08/30/23 17:24: POC Glucose 81 08/30/23 22:30: POC Glucose 95 08/31/23 06:45: POC Glucose 98 08/31/23 06:54: WBC 4.3 L, RBC 4.49 L, Hgb 10.7 L, Hct 36.2 L, MCV 80.6, MCH 23.8 L, MCHC 29.6 L, RDW Std Deviation 40.1, RDW Coeff of Venita 13.6, Plt Count 257, MPV 9.7, Immature Gran % (Auto) 0.200, Neut % (Auto) 62.9, Lymph % (Auto) 18.8 L, Union % (Auto) 8.5, Eos % (Auto) 9.4 H, Baso % (Auto) 0.2, Absolute Neuts(auto) 2.7, Absolute Lymphs (auto) 0.80 L, Nucleated RBC % 0, Sodium 138, Potassium 3.9, Chloride 110 H, Carbon Dioxide 27.0, Anion Gap 1 L, BUN 16, Creatinine 0.71, Estim Creat Clear Calc 178.15, Est GFR (MDRD) Af Amer 156, Est GFR (MDRD) Non-Af 129, BUN/Creatinine Ratio 22.5 H, Glucose 97, Calcium 9.2 08/31/23 10:50: POC Glucose 128 H Physical Exam Const alert, oriented x3, no apparent distress and well nourished General Appearance: cooperative and well developed HEENT normocephalic, head/scalp atraumatic, moist oral mucous membranes, oropharynx normal and gingiva normal Eyes PERRL and EOMs intact bilaterally Neck no lymphadenopathy, supple, no JVD and thyroid normal Lymph Lymphatic: no lymphadenopathy noted and no lymphedema noted Resp normal respiratory effort, normal air movement and clear to auscultation bilaterally Cardio regular rate, regular rhythm, S1 normal heart sound, S2 normal heart sound and no murmurs Palpation: normal PMI GI normal to inspection, nondistended, normoactive bowel sounds, soft to palpation,non-tender and non-distended Extremity Extremity Narrative: left foot wrapped in bandage. Neuro CN's II-XII intact bilaterally, no focal motor deficits, no sensory deficits noted and deep tendon reflexes 2+ bilaterally Motor Exam: strength 5/5 throughout and general weakness Psych thought process normal, cooperative and affect normal Appearance: appropriate Assessment & Plan Assessment/Plan (1) Cellulitis of left lower limb: (2) Abscess of bursa, left ankle and foot: PLAN: Plan #Diabetic foot abscess and cellulitis of the LLE * Podiatry Consulted. * Blood wound and blood cultures. Consult podiatry. * on IV vancomycin and cefepime * wound and blood cultures ordered. * for surgery tomorrow * #Hypertension: On losartan. IV hydralazine prn #Type 2 diabetes mellitus: On metformin and Rybelsus. ISS. Accuchecks ACHS #Hyperlipidemia: On statin DVT prophylaxis: Lovenox Charges/Coding Visit Charges Inpatient E&M: 58587 Subs Hosp L2 08/31/23 1529 <Electronically signed by Angélica Escalante MD> Angélica Escalante MD Cosigner Signature (if applicable): CC: ~ Signed [facility] Work Phone: 1(226) 605-751801-24-2024 Consult note Author Michaela [facility] August 31, 2023 2:29pm Note Date/Time August 31, 2023 2 :28pm [facility] Medical Records Department [address] [place] [address] Pharmacokinetic/Renal -Consult 08/31/23 1428 MR#: [id number] Acct: [id number] Name: SNEHA WEI Jr. Rep #:[id number] : 1980 43 From: Michaela oSria PCP: Dr. Liliane Epps, DO Status:ADM IN Y [id number] Antibiotic Management Pharmacy has been consulted to manage selected antibiotic: Vancomycin Type of Intervention Type of Consult: Follow-up Labs Labs: Sodium 138 mmol/L (136-145) 08/31/23 06:54 Potassium 3.9 mmol/L (3.5-5.1) 08/31/23 06:54 Chloride 110 mmol/L (98-107) H 08/31/23 06:54 Carbon Dioxide 27.0 mmol/L (21.0-32.0) 08/31/23 06:54 Anion Gap 1 (5-15) L 08/31/23 06:54 BUN 16 mg/dL (7-18) 08/31/23 06:54 Creatinine 0.71 mg/dL (0.70-1.30) 08/31/23 06:54 Est GFR (MDRD) Af Amer 156 mL/min (>60) 08/31/23 06:54 Est GFR (MDRD) Non-Af 129 mL/min (>60) 08/31/23 06:54 BUN/Creatinine Ratio 22.5 RATIO (10-20) H 08/31/23 06:54 Glucose 97 mg/dL (74-106) 08/31/23 06:54 Vancomycin Trough 24.8 ug/mL (5.0-15.0) H 08/31/23 12:45 Microbiology Microbiology: Microbiology 08/30/23 11:58 Wound - Left Foot Gram Stain - Final Goal Trough Goal Trough: 15-20 mcg/mL Pharmacy Plan for Drug Dosing Pharmacy Plan for Drug Dosing: VANCOMYCIN LEVEL RECEIVED Current Vancomycin Dose: 1500mg IV Q8hr Number of Doses Received: 3 (loading dose + 2 scheduled doses) Vancomycin Level: 24.8 Hours Since Last Dose: 8hrs Renal Function: 0.71 Renal Function Trend: stable Lab/Micro: WCx growing poss enterococcus spp (no sensitivity data) Vancomycin Plan/Comments: Patient had a trough drawn that resulted in a value of24.8 (goal 15-20). The patient's trough is above therapeutic goal at this time. Will hold subsequent doses of vancomycin until trough is <20. Will draw a randomlevel in 12 hours to assess trough value at that time. Until then, HOLDING vancomycin. Pending Level: *RANDOM* level 09/01/23 @0100 Pharmacy Service will continue to monitor and adjust dosing as required. 08/31/23 1429 <Electronically signed by Michaela Soria > Date _ Michaela Soria Cosigner Signature (if applicable): Date CC: ~ Signed [facility] Work Phone: [phone]) 874-342401-23-2024 Consult note Author Angélica [facility] August 30, 2023 5:09pm Note Date/Time August 30, 2023 2 :41pm [facility] Medical Records Department [address] [place] [address] Pharmacokinetic/Renal -Consult 08/30/23 1438 MR#: [id number] Acct: [id number] Name: SNEHA WEI Jr. Rep #:[id number] : 1980 43 From: Cristian vaz PCP: Dr. Liliane Epps, DO Status:ADM IN Location: [place] [address] Consult Antibiotic Management Pharmacy has been consulted to manage selected antibiotic: Vancomycin Type of Intervention Type of Consult: New start Suspected Infection Suspected Infection: Skin/Soft tissue Prior Doses of Antibiotics Prior Doses of Antibiotics Received/Current Regimen: received vanc 2000mg IV x1 in E.R. starting at 13:10 today Labs Labs: Sodium 139 mmol/L (136-145) 08/30/23 11:56 Potassium 4.0 mmol/L (3.5-5.1) 08/30/23 11:56 Chloride 106 mmol/L (98-107) 08/30/23 11:56 Carbon Dioxide 27.0 mmol/L (21.0-32.0) 08/30/23 11:56 Anion Gap 6 (5-15) 08/30/23 11:56 BUN 17 mg/dL (7-18) 08/30/23 11:56 Creatinine 0.92 mg/dL (0.70-1.30) 08/30/23 11:56 Est GFR (MDRD) Af Amer 117 mL/min (>60) 08/30/23 11:56 Est GFR (MDRD) Non-Af 97 mL/min (>60) 08/30/23 11:56 BUN/Creatinine Ratio 18.6 RATIO (10-20) 08/30/23 11:56 Glucose 107 mg/dL (74-106) H 08/30/23 11:56 Dosing Weight Weight used for dosin kg Estimated Creatinine Clearance Estimated Creatinine Clearance: 138ml/min Goal Trough Goal Trough: 15-20 mcg/mL Pharmacy Plan for Drug Dosing Pharmacy Plan for Drug Dosing: Starting 8 hours after the E.R. dose, will continue with vanc 1500mg IV q8h per [facility] dosing protocol. Will check a trough before the 4th total dose. Pharmacy Service will continue to monitor and adjust dosing as required. Follow-Up Labs Follow-Up Labs: Trough: Vancomycin Date/Time Labs Ordered Labs to be done on [date and time ordered]: 08/31/23 12:30 08/30/23 1441 <Electronically signed by Cristian hodges> Date _ Cristian Reeder 08/30/23 1709 <Electronically signed by Angélica rojas MD> Cosigner Signature (if applicable): Date Angélica Escalante MD CC: ~ Signed [facility] Work Phone: [phone]) 354-687701-23-2024 History and physical note Author Angélica Escalante [facility] August 30, 2023 5:08pm Note Date/Time August 30, 2023 1 :15pm [facility] Medical Records Department [address] [place] [address] History & Physical Exam 08/30/23 1311 MR#: [id number] Acct: [id number] Name: SNEHA WEI Jr. Rep #:[id number] : 1980 43 From: Angélica Escalante MD PCP: Dr. Liliane Epps, DO Status:ADM IN [place] [id number] HPI - General General Date of Admission: 08/30/23 Date of Service: 08/30/23 Chief Complaint: abscess HPI Narrative SNEHA WEI, is a 43 M with a PMH as outlined who presents via the ED on 08/30/2023 with a complaitn of abscess of the left foot. HE went to the wound clinic where he has been seeing podiatry. HE had Charcot foot surgery ~ 6 weeks ago. TOday he was noted to be having purulent drainage from the left foot wound.He denied any fever, chills or increased pain. Review of systms was otherwise negative. He denied any significant pain due to neuropathy but admitted to redness and swelling of the left foot. Vitals in the ED were BP of 118/67, HI of 87, RR of 15 and temp of 98.2F. He wassaturating at 98% on room air. CBC was largely unremarkable with wbc of 5. Chemistry was unremarkable. Wound cultures were obtained, and patient is being admitted to be managed for infected left foot diabetic wound. [facility] Medical History (Updated 08/30/23 @ 14:02 by Cari Chaudhry) Dietary restriction Gas gangrene of foot History of edema Hypertension Osteomyelitis of ankle or foot, left, acute Type 2 diabetes mellitus with diabetic polyneuropathy Wears glasses Home Medications metformin 1,000 mg tablet 1,000 mg PO BID diabetes 11/14/21 [History Last Taken 08/30/23] calcium citrate 200 mg (950 mg) tablet 200 mg PO DAILY SUPPLEMENT 11/24/21 [History Last Taken 08/30/23] multivitamin 1 tab PO DAILY SUPPLEMENT 11/24/21 [History Last Taken 08/30/23] losartan 25 mg tablet 25 mg PO DAILY BLOOD PRESSURE 09/15/22 [History Last Taken 08/30/23] semaglutide 14 mg tablet (Rybelsus) 14 mg PO DAILY DIABETES 07/06/23 [History Last Taken 08/30/23] ascorbic acid (vitamin C) 1,000 mg tablet,extended release (C Complex) 1,000 mg PO DAILY SUPPLEMENT 08/30/23 [History Last Taken 08/30/23] omega 3-bup-yqs-fish oil 300 mg-1,000 mg capsule (Fish Oil) 2 cap PO DAILY SUPPLEMENT 08/30/23 [History Last Taken 08/30/23] pravastatin 80 mg tablet 80 mg PO QHS CHOLESTEROL 08/30/23 [History Last Taken 08/29/23] Allergy/AdvReac Type Severity Reaction Status Date / Time Penicillins [PCN] Allergy Rash Verified 08/30/23 10:45 Surgical History Hx of eye surgery Hx of foot surgery Hx of foot surgery Social History Smoking Status: Never smoker ROS Review of Systems ROS Unobtainable: Denies due to encephalopathy Constitutional Constitutional: Denies anorexia, chills, fatigue, fever(s), malaise or weakness Eyes Eyes: Denies change in vision ENT HEENT: Denies dysphagia or throat swelling Cardiovascular Cardiovascular: Denies chest pain, edema, orthopnea, palpitations, paroxysmal nocturnal dyspnea or syncope Respiratory/Chest Respiratory/Chest: Denies cough, shortness of breath at rest, shortness of breath with exertion or wheezing Gastrointestinal Gastrointestinal: Denies abdominal pain, diarrhea, dyspepsia, nausea or vomiting Genitourinary Genitourinary: Denies dysuria or urinary frequency Musculoskeletal Musculoskeletal: Denies back pain, extremity pain, joint stiffness, joint swelling or muscle weakness Integumentary Integumentary: Denies dry skin Neurologic Neurologic: Denies confusion, dizziness, focal weakness, headache(s), lack of coordination, numbness, seizures or weakness Psychiatric Psychiatric: Denies anxiety Endocrine Endocrinology: Denies change in body appearance Vital Signs Vital Signs Vital Signs: 08/30/23 10:45 08/30/23 11:47 08/30/23 12:00 Temperature 96.1 F L 98.2 F 98.2 F Temperature Source Temporal Temporal Temporal Pulse Rate 101 H 82 92 Respiratory Rate 18 16 16 Blood Pressure 145/89 H 132/79 H 128/74 H Blood Pressure Mean 107 96 92 Pulse Ox 100 98 98 Oxygen Delivery Method Room Air Room Air Room Air 08/30/23 12:27 08/30/23 13:00 Temperature 98.2 F Temperature Source Temporal Pulse Rate 88 87 Respiratory Rate 14 15 Blood Pressure 129/75 H 118/67 Blood Pressure Mean 93 84 Pulse Ox 98 98 Oxygen Delivery Method Room Air Weight Weight: 260 lb 9.382 oz Body Mass Index (BMI) 36.3 Physical Exam Const alert, oriented x3, no apparent distress and well nourished General Appearance: cooperative and well developed HEENT normocephalic, head/scalp atraumatic, moist oral mucous membranes, oropharynx normal and gingiva normal Eyes PERRL and EOMs intact bilaterally Neck no lymphadenopathy, supple, no JVD and thyroid normal Lymph Lymphatic: no lymphadenopathy noted and no lymphedema noted Resp normal respiratory effort, normal air movement and clear to auscultation bilaterally Cardio regular rate, regular rhythm, S1 normal heart sound, S2 normal heart sound and no murmurs Palpation: normal PMI GI normal to inspection, nondistended, normoactive bowel sounds, soft to palpation, non-tender and non-distended Extremity Extremity Narrative: left foot wrapped in bandage. Neuro CN's II-XII intact bilaterally, no focal motor deficits, no sensory deficits noted and deep tendon reflexes 2+ bilaterally Motor Exam: strength 5/5 throughout and general weakness Psych thought process normal, cooperative and affect normal Appearance: appropriate Results Lab / Micro Data 08/30/23 11:56 08/30/23 11:56 Labs: Laboratory Results - last 24 hr 08/30/23 11:56: WBC 5.0, RBC 4.75, Hgb 11.4 L, Hct 37.4 L, MCV 78.7 L, MCH 24.0 L, MCHC 30.5 L, RDW Std Deviation 39.0, RDW Coeff of Venita 13.5, Plt Count 267, MPV 9.7, Immature Gran % (Auto) 0.400, Neut % (Auto) 66.3, Lymph % (Auto) 17.1 L, Union % (Auto) 7.8, Eos % (Auto) 8.0 H, Baso % (Auto) 0.4, Absolute Neuts (auto) 3.3, Absolute Lymphs (auto) 0.86, Nucleated RBC % 0, Sodium 139, Potassium 4.0, Chloride 106, Carbon Dioxide 27.0, Anion Gap 6, BUN 17, Creatinine 0.92, Estim Creat Clear Calc 138.19, Est GFR (MDRD) Af Amer 117, Est GFR (MDRD) Non-Af 97, BUN/Creatinine Ratio 18.6, Glucose 107 H, Calcium 9.8, Total Bilirubin 0.50, AST 17, ALT 22, Alkaline Phosphatase 114, Total Protein 7.8, Albumin 3.7, Globulin 4.1, Albumin/Globulin Ratio 0.9 Assessment & Plan Assessment/Plan (1) Cellulitis of left lower limb: (2) Abscess of bursa, left ankle and foot: PLAN: Plan #Diabetic foot abscess and cellulitis of the LLE * Admit to [facility]. To have Charcot foot surgery 6 weeks ago podiatry. * . Consulted. Noted to have increasing redness and discharge from the foot. * Blood wound and blood cultures. Consult podiatry. * Start on IV vancomycin and cefepime * Defer need for any further imaging to podiatry. * #Hypertension: On losartan #Type 2 diabetes mellitus: On metformin and Rybelsus #Hyperlipidemia: On statin DVT prophylaxis: Lovenox Charges/Coding Visit Charges Inpatient E&M: 83701 Init Hosp L3 08/30/23 1708 <Electronically signed by Angélica Escalante MD> Cosigner Signature (if applicable): CC: Dr. Liliane Epps DO; Dr. Angélica Escalante MD~ Signed [facility] Work Phone: [phone]) 360-464401-23-2024 Discharge summary Author Jordi Talley [facility] August 30, 2023 4:38pm Note Date/Time August 30, 2023 1 1:53am [facility] Medical Records Department [address] [place] [id number] Emergency Department Summary 08/30/23 MR#: [id number] Acct: [id number] Name: SNEHA WEI Jr. Rep #:[id number] : 1980 43 From: Jordi Sánchez PCP: Dr. Liliane Epps DO Status:ADM IN Location: MS[facility] [id number] HPI History of Present Illness Chief Complaint: Abscess Informant: patient Narrative Narrative: 43-year-old type II diabetic male presenting to the emergency room after being referred here by the wound clinic. Dr. Perkins called me from the wound clinic stating that the patient has abscess of the left foot. Reportedly the patient underwent Charcot foot surgery with Dr. Perkins 6 weeks ago. He has been following up weekly in the wound clinic. Today was noted to have purulence draining from wound. Patient denies any recent fevers. Notes there is been some erythema of the foot. He has polyneuropathy and notes no significant change in discomfort of the foot. He has not been on antibiotics for about 2 weeks. [facility] Medical History Dietary restriction Gas gangrene of foot History of edema Hypertension Osteomyelitis of ankle or foot, left, acute Type 2 diabetes mellitus with diabetic polyneuropathy Wears glasses Home Medications metformin 1,000 mg tablet 1,000 mg PO BID diabetes 11/14/21 [History Last Taken 08/30/23] calcium citrate 200 mg (950 mg) tablet 200 mg PO DAILY SUPPLEMENT 11/24/21 [History Last Taken 08/30/23] multivitamin 1 tab PO DAILY SUPPLEMENT 11/24/21 [History Last Taken 08/30/23] losartan 25 mg tablet 25 mg PO DAILY BLOOD PRESSURE 09/15/22 [History Last Taken 08/30/23] semaglutide 14 mg tablet (Rybelsus) 14 mg PO DAILY DIABETES 07/06/23 [History Last Taken 08/30/23] ascorbic acid (vitamin C) 1,000 mg tablet,extended release (C Complex) 1,000 mg PO DAILY SUPPLEMENT 08/30/23 [History Last Taken 08/30/23] omega 0-fqf-gyp-fish oil 300 mg-1,000 mg capsule (Fish Oil) 2 cap PO DAILY SUPPLEMENT 08/30/23 [History Last Taken 08/30/23] pravastatin 80 mg tablet 80 mg PO QHS CHOLESTEROL 08/30/23 [History Last Taken 08/29/23] Allergy/AdvReac Type Severity Reaction Status Date / Time Penicillins [PCN] Allergy Rash Verified 08/30/23 10:45 Surgical History Hx of eye surgery Hx of foot surgery Hx of foot surgery Social History Smoking Status: Never smoker ROS ROS ED Constitutional Constitutional ED: Denies chills, fever(s) or weight loss Eyes Eyes: Denies change in vision or diplopia ENT ENT ED: Denies ear pain, rhinorrhea or sore throat Cardiovascular Cardiovascular: Denies chest pain, orthopnea, palpitations or racing heartbeat Respiratory/Chest Respiratory/Chest: Denies cough, dyspnea or orthopnea Gastrointestinal Gastrointestinal: Denies abdominal pain, diarrhea, nausea or vomiting Genitourinary Genitourinary ED: Denies dysuria, hematuria or urinary frequency Musculoskeletal Musculoskeletal: Reports other Details: See history of present illness ; Denies arthralgias or myalgias Integumentary Reports other Details: See history of present illness ; Denies abscess or rash Neurologic Neurologic: Denies headache(s) or weakness Psychiatric Psychiatric: Denies anxiety, depression, suicidal ideation or suicidal thoughts Endocrine Endocrinology: Denies polydipsia, polyphagia or polyuria Allergic/Immunologic Allergic/Immunologic ED: Denies mouth swelling, tongue swelling or urticaria EXAM Physical Exam Const Vital Signs: 08/30/23 10:45 08/30/23 11:47 08/30/23 12:00 Temperature 96.1 F L 98.2 F 98.2 F Temperature Source Temporal Temporal Temporal Pulse Rate 101 H 82 92 Respiratory Rate 18 16 16 Blood Pressure 145/89 H 132/79 H 128/74 H Blood Pressure Mean 107 96 92 Pulse Ox 100 98 98 Oxygen Delivery Method Room Air Room Air Room Air 08/30/23 12:27 Temperature Temperature Source Pulse Rate 88 Respiratory Rate 14 Blood Pressure 129/75 H Blood Pressure Mean 93 Pulse Ox 98 Oxygen Delivery Method Positive well nourished and well developed General Appearance ED: well developed HEENT Reports normocephalic, head/scalp atraumatic and moist mucous membranes Eyes PERRL and EOMs intact bilaterally Neck no lymphadenopathy, supple and no JVD Resp normal respiratory effort and clear to auscultation bilaterally Cardio regular rate, regular rhythm and no murmurs GI normal to inspection, nondistended, normoactive bowel sounds and non-tender Palpation: soft Back/Spine no CVA tenderness and normal ROM Extremity Extremity Narrative: The left foot dressing was taken down. There is there is surgical hardware present. A wound both medially and laterally near the malleoli. There is some erythema around the lateral aspect of the left foot and ankle. I do not appreciate any lymphedema. The calf is nontender. Neuro oriented x3 and CN's II-XII intact bilaterally Sensorium / Orientation: alert Motor Exam: strength 5/5 throughout Psych mental status grossly normal Mood & Affect: Negative for depressed or tearful Skin no rashes or lesions noted and no wounds MDM MDM MDM Narrative Medical decision making narrative: A culture of the purulence from the wound was collected by Dr. Perkins at the wound clinic and was sent for culture. Blood cultures were also obtained. Antibiotics were requested from Dr. Perkins were vancomycin and cefepime were ordered. No t radiologic imaging was obtained. I did discuss this with Dr. Perkins who does not request any at this time. The plan is admission into the hospital with plan for surgery on . History & Record Review Discussion w/independent historian: Patient Additional record(s) reviewed:: Prior inpatient record, Prior ED visit and Prior labs Lab Data Attestation: I reviewed the patient's lab results. Labs: Laboratory Results - last 24 hr 08/30/23 11:56 WBC 5.0 RBC 4.75 Hgb 11.4 L Hct 37.4 L MCV 78.7 L MCH 24.0 L MCHC 30.5 L RDW Std Deviation 39.0 RDW Coeff of Venita 13.5 Plt Count 267 MPV 9.7 Immature Gran % (Auto) 0.400 Neut % (Auto) 66.3 Lymph % (Auto) 17.1 L Union % (Auto) 7.8 Eos % (Auto) 8.0 H Baso % (Auto) 0.4 Absolute Neuts (auto) 3.3 Absolute Lymphs (auto) 0.86 Nucleated RBC % 0 Sodium 139 Potassium 4.0 Chloride 106 Carbon Dioxide 27.0 Anion Gap 6 BUN 17 Creatinine 0.92 Estim Creat Clear Calc 138.19 Est GFR (MDRD) Af Amer 117 Est GFR (MDRD) Non-Af 97 BUN/Creatinine Ratio 18.6 Glucose 107 H Calcium 9.8 Total Bilirubin 0.50 AST 17 ALT 22 Alkaline Phosphatase 114 Total Protein 7.8 Albumin 3.7 Globulin 4.1 Albumin/Globulin Ratio 0.9 Discharge Plan Dx/Rx/DC Orders Clinical Impression: Type 2 diabetes mellitus with diabetic polyneuropathy, Diabetic infection of left foot, Charcot foot due to diabetes mellitus Disposition Disposition: Acute Care Hospital [facility] What to do if you have Problems For any increased pain, shortness of breath, bleeding, nausea or vomiting, chest pain, or any unexpected problems, contact your Primary Care Provider. Call [facility] ([phone]) or report to the closest Emergency Room. Call 911 if necessary. 08/30/23 1638 <Electronically signed by Jordi Talley DO> Cosigner Signature (if applicable): CC: Dr. Liliane Epps DO ~ Signed [facility] Work Phone: 1(773) 477-842101-23-2024 Progress note Author Jordi Perkins [facility] August 30, 2023 10:41am Note Date/Time August 30, 2023 1 0:41am [facility] [address] [place] [address] Progress Note - Wound Care 08/30/23 1035 MR#: [id number] Acct: [id number] Name: SNEHA EWI JrGiovanny Rep #:[id number] : 1980 43 From: Jordi Perkins DPM PCP: Dr. Liliane Epps DO Status:REG RCR Location: History of Present Illness Date of Service: 08/30/23 Chief Complaint: Diabetic left foot infection with gas gangrene and osteomyelitis. History of Wound: 43-year-old male presents to wound care clinic for follow-up on the left medial ankle wound in setting of diabetic neuropathy status post Charcot reconstruction on 07/15/2023. Patient has been nonweightbearing since that time with weekly applications of AO splint and dressings. Patient denies any constitutional symptoms or chest pain calf pain shortness of breath. Objective Data Objective Data Vital Signs: Vital Signs Temp Pulse Resp BP O2 Del Method 96.6 F L 95 16 145/75 H Room Air 01/23/24 09:34 08/30/23 09:34 08/30/23 09:34 08/30/23 09:34 08/30/23 09:34 Oxygen Delivery Method Room Air Weight: 113.398 kg Body Mass Index (BMI) 33.9 Physical Exam Narrative Neurovascular status unchanged. Wound to medial left ankle improved today. There is noted to be worsening to the lateral ankle incision. Small 1 cm opening is noted. There is significant corinna-incisional fluctuance noted. 15 cc of purulent drainage was expressed fromthe lateral ankle incisional site. Some periwound edema erythema and warmth noted. No other signs of infection noted. Musculoskeletal there is rectus alignment of the level of the left ankle and foot relative to the leg as well as correction of the plantar convexity that wasnoted previously prior to Charcot reconstruction. 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 ) Arrival Mode Wheelchair Ambulatory Transfer Assistance Manual None Patient Identification Verified (Name & Yes Yes ) Patient Requires Transmission-Based No Precautions Finger Stick Blood Sugar(mg/dl) (if 103 indicated): Blood Sugar Stated by Patient Height and Weight Height 6 ft Weight 113.398 kg Weight in Pounds 250.0 lbs Body Mass Index (BMI) 33.9 33.9 BMI Classification Obese Obese BSA - Johnnie 2.34 Vital Signs Temperature (97.8 F-99.1 F) 97.8 F 96.6 F L Temperature Source Temporal Temporal Pulse Rate (60-100) 98 95 Pulse Location Monitor Monitor Respiratory Rate (12-18) 18 16 Respiratory rate source Observation Observation Oxygen Delivery Method Room Air Blood Pressure (90/60-120/80) 154/80 H 145/75 H Blood Pressure Mean (mm Hg) 104 98 Source Monitor Monitor Position Semi-Fowlers Sitting Blood Pressure Location Left Arm Left Arm History Since Last Visit- (Skip if this is Patient's initial visit) Have you changed medications since your No last visit? Any new allergies or adverse reactions No Had a fall/change in ADL's that may No increase risk of falls Signs or symptoms of abuse and/or No neglect since last visit Have you been in the hospital since your No last visit? Has dressing in place as prescribed Yes Has compression in place as prescribed Yes Has offloadiing in place as prescribed Yes Experienced any changes in pain level or No management Left Footwear No Footwear Total Contact Cast Right Footwear Diabetic Shoe Pain Scale: 0-10 Numeric Is Patient Pain Free? No Yes WC - Nurse 1 - General Ulcer Measurement Start: 08/23/23 09:40 Freq: Status: Active Protocol: Activity Type Activity Date Activity User E-sign Co-sign Detail Recorded Client Recorded Date Recorded By Document 08/23/23 09:41 RB Desktop 08/23/23 10:02 RB Document 08/30/23 09:34 Desktop 08/30/23 09:50 08/23/23 08/30/23 09:41 09:34 Wound Center Nurse 1 5. LLE post cluster -Combined with other wound No -Current Size (cm) - Length 4.2 -Current Size (cm) - Width 2.3 -Current Size (cm) - Depth 0.1 -Total Square Cm 9.66 4. L plantar -Combined with other wound No -Current Size (cm) - Length 2 -Current Size (cm) - Width 0.2 -Current Size (cm) - Depth 0.2 -Total Square Cm 0.4 -Photo Taken Yes -Tunneling No -Undermining/Tunneling No -Circular Undermining No -Exudate Amt Medium -Exudate Type Serosanguineous -Wound Margin Distinct, Outline Attached -Granulation Amt Medium (34-66%) -Granulation Quality [employer] -Slough/Fibrin Yes -Necrosis Amt Medium (34-66%) -Necrotic Tissue Type Adherent Slough -Structure Exposed N/A -Texture (Corinna-wound Skin Appearance) Assessed -Moisture (Corinna-wound Skin Appearance) Assessed -Color (Corinna-wound Skin Appearance) Assessed -Temperature (Corinna-wound Skin No Abnormality Appearance) (Pt Warm) -Tenderness on Palpation (Corinna-wound No Skin Appearance) -Ulcer Cleansing Wound Cleanser -Foul Odor after Cleansing No -Anesthetic Used 5% Lidocaine Gel 7. L lateral ankle -Combined with other wound No -Current Size (cm) - Length 0.2 0.3 -Current Size (cm) - Width 1.8 1.5 -Current Size (cm) - Depth 0.4 0.2 -Total Square Cm 0.36 0.45 -Photo Taken Yes -Tunneling No No -Undermining/Tunneling No No -Circular Undermining No -Exudate Amt Medium Medium -Exudate Type Serosanguineous Purulent -Wound Margin Distinct, Distinct, Outline Outline Attached Attached -Granulation Amt Medium (34-66%) Medium (34-66%) -Granulation Quality [employer] -Slough/Fibrin Yes Yes -Necrosis Amt Medium (34-66%) Medium (34-66%) -Necrotic Tissue Type Adherent Slough Adherent Slough -Structure Exposed N/A N/A -Texture (Corinna-wound Skin Appearance) Assessed Assessed -Moisture (Corinna-wound Skin Appearance) Assessed Assessed -Color (Corinna-wound Skin Appearance) Assessed Assessed -Temperature (Corinna-wound Skin No Abnormality No Abnormality Appearance) (Pt Warm) (Pt Warm) -Tenderness on Palpation (Corinna-wound No No Skin Appearance) -Ulcer Cleansing Wound Cleanser Wound Cleanser -Foul Odor after Cleansing No No -Anesthetic Used 5% Lidocaine 5% Lidocaine Gel Gel 6. L medial ankle -Combined with other wound No No -Current Size (cm) - Length 6 1.2 -Current Size (cm) - Width 1.4 1.6 -Current Size (cm) - Depth 1.8 0.1 -Total Square Cm 8.4 1.92 -Photo Taken Yes -Tunneling No No -Undermining/Tunneling No No -Circular Undermining No No -Exudate Amt Medium Medium -Exudate Type Serosanguineous Serosanguineous -Wound Margin Distinct, Distinct, Outline Outline Attached Attached -Granulation Amt Medium (34-66%) Medium (34-66%) -Granulation Quality [employer] -Slough/Fibrin Yes Yes -Necrosis Amt Medium (34-66%) Medium (34-66%) -Necrotic Tissue Type Adherent Slough Adherent Slough -Structure Exposed N/A N/A -Texture (Corinna-wound Skin Appearance) Assessed Assessed -Moisture (Corinna-wound Skin Appearance) Assessed Assessed -Color (Corinna-wound Skin Appearance) Assessed Assessed -Temperature (Corinna-wound Skin No Abnormality No Abnormality Appearance) (Pt Warm) (Pt Warm) -Tenderness on Palpation (Corinna-wound No No Skin Appearance) -Ulcer Cleansing Wound Cleanser Wound Cleanser -Foul Odor after Cleansing No No -Anesthetic Used 5% Lidocaine 5% Lidocaine Gel Gel Left Calf (cm) 35 Left Ankle (cm) 26 - Nurse 2 - General Ulcer CM Notes Start: 08/23/23 09:40 Freq: Status: Active Protocol: Activity Type Activity Date Activity User E-sign Co-sign Detail Recorded Client Recorded Date Recorded By Document 08/23/23 10:32 Laptop 08/23/23 10:38 Edit Result 08/23/23 10:32 (1) [id number] 08/23/23 10:42 Document 08/30/23 10:25 [id number] 08/30/23 10:26 (1) 6. L medial ankle - Bleeding Controlled with Pressure => Pressure,Silver => Nitrate 08/23/23 08/30/23 10:32 10:25 Wound Center Nurse 2 5. LLE post cluster -Correct Patient No -Correct Side, Site, Position No -Correct Procedure No -Procedure Performed No 7. L lateral ankle -Correct Patient No No -Correct Side, Site, Position No No -Correct Procedure No No -Procedure Performed No No -Wound/Ulcer Outcome Not Healed Not Healed -Ulcer Cleansing Rinsed/ Irrigated with Saline -Foul Odor after Cleansing No -Bioengineered Tissue No -Bleeding Controlled with Pressure -Treatment Response Procedure Tolerated Well -Offloading No -Debridement - Subq, 1st 20sq cm No -I&D / Paring / Biopsy I&D abscess - multiple or complicated 6. L medial ankle -Time 10:32 -Correct Patient Yes No -Correct Side, Site, Position Yes No -Correct Procedure Yes No -Procedure Performed Yes No -Type of Procedure Debridement -Clinical Debridement Subcutaneous -Tissue Removed Subcutaneous -Post Debridement (cm) - Length 5.0 -Post Debridement (cm) - Width 2.0 -Post Debridement (cm) - Depth 0.1 -Total Square (Post) (cm) 10.00 -Area of Debridement (cm) - Length 5.0 -Area of Debridement (cm) - Width 2.0 -Total Square (Area) (cm) 10.00 -Tunneling No -Undermining/Tunneling No -Circular Undermining No -Wound/Ulcer Outcome Not Healed -Ulcer Cleansing Rinsed/ Irrigated with Saline -Foul Odor after Cleansing No -Bioengineered Tissue No -Bleeding Controlled with Pressure,Silver Nitrate -Treatment Response Procedure Tolerated Well -Offloading Yes -Type of Offloading Total Contact Cast (TCC) - Left ($) -Debridement - Subq, 1st 20sq cm Yes -I&D / Paring / Biopsy I&D abscess - multiple or complicated Pain Scale: 0-10 Numeric Is Patient Pain Free? Yes Yes - Nurse 3 - General Ulcer D/C NN Start: 08/23/23 09:40 Freq: Status: Active Protocol: Activity Type Activity Date Activity User E-sign Co-sign Detail Recorded Client Recorded Date Recorded By Document 08/23/23 10:53 DL Desktop 08/23/23 10:56 DL Edit Result 08/23/23 10:53 DL (1) [id number] 08/23/23 11:13 JF (1) Notes: TCC applied per R Elba => TCC applied per R López Cline. Pins to foot heavily padded. 08/23/23 10:53 Wound Care Center Nurse 3 7. L lateral ankle -Ulcer Cleansing Soap and Water -Foul Odor after Cleansing No -Other Dressing dakins -Primary Dressing Covered/Secured with Dry Gauze & Roll Gauze, Secured with Tape -Other Covering TCC 6. L medial ankle -Ulcer Cleansing Rinsed/ Irrigated with Saline -Foul Odor after Cleansing No -Other Dressing dakin -Primary Dressing Covered/Secured with Dry Gauze & Roll Gauze, Secured with Tape -Other Covering TCC Treatment Response Procedure Tolerated Well Pain Scale: 0-10 Numeric Is Patient Pain Free? Yes - Visit Discharge Discharge Condition Stable Ambulatory Status Walker Transportation Private Auto Accompanied by family Notes: TCC applied per R López Cline. Pins to foot heavily padded . Assessment/Plan Assessment/Plan (1) Type 2 diabetes mellitus with diabetic polyneuropathy: CODE(S): E11.42 - Type 2 diabetes mellitus with diabetic polyneuropathy QUALIFIERS: Diabetes mellitus nursing home insulin use: without salvage determiner use Qualified Code(s): E11.42 - Type 2 diabetes mellitus with diabetic polyneuropathy PLAN: Exam performed Radiographs of left foot and ankle reviewed. Normal alignment noted. No obvious or tarun osteomyelitis noted. Today clinically there is noted to be a complicated abscess to the left lateral ankle incisional site. After obtaining oral consent a incision and drainage was performed of the left lateral ankle abscess: Surgeon: Jordi Perkins D.P.M. Anesthesia: None due to neuropathy Preoperative diagnosis: Left ankle abscess Postoperative diagnosis: Same Procedure: Incision and drainage complicated abscess left lower extremity Search Manager: None Procedure: Using sterile hemostats the left lateral ankle incision was opened up and exposed to allow for drainage of purulence. 15 cc of purulent drainage was expressed from the site. Site flushed with copious amounts normal sterile saline. Swab cultures taken. Left lateral ankle incision was packed with quarter inch iodoform dressing. Allother sites were dressed including the left medial ankle wound and incisional site with Betadine dry sterile dressing. At this time we will plan for hospital admission for IV antibiotics and incisionand drainage of abscess to left lower extremity. Would likely recommend ID consultation to assist antibiotic management Will continue to follow closely (2) Type 2 diabetes mellitus with diabetic polyneuropathy: CODE(S): E11.42 - Type 2 diabetes mellitus with diabetic polyneuropathy QUALIFIERS: Diabetes mellitus salvage determiner insulin use: without nursing home use Qualified Code(s): E11.42 - Type 2 diabetes mellitus with diabetic polyneuropathy (3) Non-pressure chronic ulcer of left 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: CODE(S): L97.322 - Non-pressure chronic ulcer of left ankle with fat layerexposed (4) Cellulitis of left lower limb: CODE(S): L03.116 - Cellulitis of left lower limb (5) Abscess of bursa, left ankle and foot: CODE(S): M71.072 - Abscess of bursa, left ankle and foot 08/30/23 1041 <Electronically signed by Jordi Perkins DPM> Cosigner Signature (if applicable): CC: ~ Signed [facility] Work Phone: 1(594) 125-898401-16-2024 Progress note Author Jordi Perkins [facility] August 23, 2023 10:38am Note Date/Time August 23, 2023 1 0:38am [facility] [address] [place] [address] Progress Note - Wound Care 08/23/23 1034 MR#: [id number] Acct: [id number] Name: SNEHA WEI Jr. Rep #:[id number] : 1980 43 From: Jordi Perkins DPM PCP: Dr. Liliane Epps, DO Status:REG RCR Location: History of Present Illness Date of Service: 08/23/23 Chief Complaint: Diabetic left foot infection with gas gangrene and osteomyelitis. History of Wound: 43-year-old male presents to wound care clinic for follow-up on the left medial ankle wound in setting of diabetic neuropathy status post Charcot reconstruction on 07/15/2023. Patient has been nonweightbearing since that time with weekly applications of AO splint and dressings. Patient denies any constitutional symptoms or chest pain calf pain shortness of breath. Objective Data Objective Data Vital Signs: Vital Signs Temp Pulse Resp BP 97.8 F 98 18 154/80 H 08/23/23 09:41 08/23/23 09:41 08/23/23 09:41 08/23/23 09:41 Weight: 113.398 kg Body Mass Index (BMI) 33.9 Physical Exam Narrative Neurovascular status unchanged. Full-thickness wound noted to the left medial ankle as well as the medial incision and lateral incision. The medial and lateral ankle incisional wounds are small in nature have no signs of infection. Left medial ankle wound is full-thickness down to level of subcutaneous tissue with stable granular base postdebridement. No acute signs of infection deep probing or undermining noted. Pre and postdebridement measurements documented in nursing notes. Musculoskeletal there is rectus alignment of the level of the left ankle and foot relative to the leg as well as correction of the plantar convexity that wasnoted previously prior to Charcot reconstruction. Const alert and oriented x3 Debridement Note Debridement Note Post-Debridement Measurements and Additional Note: Post-Debridement Measurements/Treatment WC - Nurse 1 - General Ulcer Assessment Start: 08/23/23 09:40 Freq: Status: Active Protocol: [email or web address] Activity Type Activity Date Activity User E-sign Co-sign Detail Recorded Client Recorded Date Recorded By Document 08/23/23 09:41 RB Desktop 08/23/23 10:02 08/23/23 09:41 WC - Today's Visit Information Type of service Initial Visit Arrival Mode Wheelchair Transfer Assistance Manual Patient Identification Verified (Name & Yes ) Finger Stick Blood Sugar(mg/dl) (if 103 indicated): Blood Sugar Stated by Patient Height and Weight Height 6 ft Weight 113.398 kg Weight in Pounds 250.0 lbs Body Mass Index (BMI) 33.9 BMI Classification Obese BSA - Johnnie 2.34 Vital Signs Temperature (97.8 F-99.1 F) 97.8 F Temperature Source Temporal Pulse Rate (60-100) 98 Pulse Location Monitor Respiratory Rate (12-18) 18 Respiratory rate source Observation Blood Pressure (90/60-120/80) 154/80 H Blood Pressure Mean (mm Hg) 104 Source Monitor Position Semi-Fowlers Blood Pressure Location Left Arm History Since Last Visit- (Skip if this is Patient's initial visit) Left Footwear No Footwear Right Footwear Diabetic Shoe Pain Scale: 0-10 Numeric Is Patient Pain Free? No WC - Nurse 1 - General Ulcer Measurement Start: 08/23/23 09:40 Freq: Status: Active Protocol: Activity Type Activity Date Activity User E-sign Co-sign Detail Recorded Client Recorded Date Recorded By Document 08/23/23 09:41 RB Desktop 08/23/23 10:02 08/23/23 09:41 Wound Center Nurse 1 7. L lateral ankle -Combined with other wound No -Current Size (cm) - Length 0.2 -Current Size (cm) - Width 1.8 -Current Size (cm) - Depth 0.4 -Total Square Cm 0.36 -Photo Taken Yes -Tunneling No -Undermining/Tunneling No -Circular Undermining No -Exudate Amt Medium -Exudate Type Serosanguineous -Wound Margin Distinct, Outline Attached -Granulation Amt Medium (34-66%) -Granulation Quality [employer] -Slough/Fibrin Yes -Necrosis Amt Medium (34-66%) -Necrotic Tissue Type Adherent Slough -Structure Exposed N/A -Texture (Corinna-wound Skin Appearance) Assessed -Moisture (Corinna-wound Skin Appearance) Assessed -Color (Corinna-wound Skin Appearance) Assessed -Temperature (Corinna-wound Skin No Abnormality Appearance) (Pt Warm) -Tenderness on Palpation (Corinna-wound No Skin Appearance) -Ulcer Cleansing Wound Cleanser -Foul Odor after Cleansing No -Anesthetic Used 5% Lidocaine Gel 6. L medial ankle -Combined with other wound No -Current Size (cm) - Length 6 -Current Size (cm) - Width 1.4 -Current Size (cm) - Depth 1.8 -Total Square Cm 8.4 -Photo Taken Yes -Tunneling No -Undermining/Tunneling No -Circular Undermining No -Exudate Amt Medium -Exudate Type Serosanguineous -Wound Margin Distinct, Outline Attached -Granulation Amt Medium (34-66%) -Granulation Quality [employer] -Slough/Fibrin Yes -Necrosis Amt Medium (34-66%) -Necrotic Tissue Type Adherent Slough -Structure Exposed N/A -Texture (Corinna-wound Skin Appearance) Assessed -Moisture (Corinna-wound Skin Appearance) Assessed -Color (Corinna-wound Skin Appearance) Assessed -Temperature (Corinna-wound Skin No Abnormality Appearance) (Pt Warm) -Tenderness on Palpation (Corinna-wound No Skin Appearance) -Ulcer Cleansing Wound Cleanser -Foul Odor after Cleansing No -Anesthetic Used 5% Lidocaine Gel 5. LLE post cluster -Combined with other wound No -Current Size (cm) - Length 4.2 -Current Size (cm) - Width 2.3 -Current Size (cm) - Depth 0.1 -Total Square Cm 9.66 4. L plantar -Combined with other wound No -Current Size (cm) - Length 2 -Current Size (cm) - Width 0.2 -Current Size (cm) - Depth 0.2 -Total Square Cm 0.4 -Photo Taken Yes -Tunneling No -Undermining/Tunneling No -Circular Undermining No -Exudate Amt Medium -Exudate Type Serosanguineous -Wound Margin Distinct, Outline Attached -Granulation Amt Medium (34-66%) -Granulation Quality [employer] -Slough/Fibrin Yes -Necrosis Amt Medium (34-66%) -Necrotic Tissue Type Adherent Slough -Structure Exposed N/A -Texture (Corinna-wound Skin Appearance) Assessed -Moisture (Corinna-wound Skin Appearance) Assessed -Color (Corinna-wound Skin Appearance) Assessed -Temperature (Corinna-wound Skin No Abnormality Appearance) (Pt Warm) -Tenderness on Palpation (Corinna-wound No Skin Appearance) -Ulcer Cleansing Wound Cleanser -Foul Odor after Cleansing No -Anesthetic Used 5% Lidocaine Gel Left Calf (cm) 35 Left Ankle (cm) 26 Assessment/Plan Assessment/Plan (1) Type 2 diabetes mellitus with diabetic polyneuropathy: CODE(S): E11.42 - Type 2 diabetes mellitus with diabetic polyneuropathy PLAN: Exam performed Radiographs of left foot and ankle were ordered today Patient doing well status post left Charcot reconstruction, no infection, patient compliant with nonweightbearing restrictions via wheelchair Wound to medial ankle improving no infection. Left medial ankle wound was excisionally debrided down to including level of subcutaneous tissue of all nonviable tissue using a 5 mm dermal curette. Patient tolerated procedure well. Hemostasis obtained with light compression. No anesthesia due to neuropathy. Pre and postdebridement measurements documented nursing notes. Dakin's wet-to-dry was applied along with dry sterile dressing. Overlying total contact cast with the foot held in a rectus position relative tothe leg was applied. Patient will maintain nonweightbearing left lower extremity and will follow-up in 1 week. We will likely plan for pin removal in early September. (2) Type 2 diabetes mellitus with diabetic polyneuropathy: CODE(S): E11.42 - Type 2 diabetes mellitus with diabetic polyneuropathy QUALIFIERS: Diabetes mellitus nursing home insulin use: without nursing home use Qualified Code(s): E11.42 - Type 2 diabetes mellitus with diabetic polyneuropathy (3) Non-pressure chronic ulcer of left 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: CODE(S): L97.322 - Non-pressure chronic ulcer of left ankle with fat layerexposed 08/23/23 1038 <Electronically signed by Jordi Perkins DPM> Cosigner Signature (if applicable): CC: ~ Signed [facility] Work Phone: 1(280) 826-424712-09-2023 Progress note Author Wojciech Bowman [facility] July 16, 2023 10:39am Note Date/Time July 16, 2023 8 :04am [facility] Medical Records Department [address] [place] [id number] Progress Note - Hospitalist 07/16/23 0802 MR#: [id number] Acct: [id number] Name: SNEHA WEI Jr. Rep #:[id number] : 1980 43 From: Wojciech Bowman MD PCP: Dr. Liliane Epps, DO Status:ADM RADHA Location: MS3 [id number] Reason for Visit Reason for Visit: Diagnoses Type 2 diabetes mellitus with diabetic polyneuropathy (07/15/23) Non-pressure chronic ulcer of right 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 (07/15/23) Charcot's joint, right ankle and foot (07/15/23) Charcot's joint, unspecified ankle and foot (07/15/23) Other acute osteomyelitis, left ankle and foot (07/15/23) Subjective Subjective Patient is a 43-year-old male who underwent Ankle Arthrodesis, Left Ankle, Subtalar Joint Arthrodesis, Left posterior/lateral soft tissue balancing/release Equinus Deformity, Left and Midfoot osteotomy with percutaneous pinning, left on account of 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, Diabetic Neuropathy, Unstableleft foot and ankle, the hospitalist service consulted to assist with patient medical comorbidities Objective Data Objective Data Vital Signs: Vital Signs Temp Pulse Resp BP Pulse Ox O2 Del Method O2 Flow Rate 97.9 F 100 18 105/58 L 96 Room Air 3 07/16/23 06:02 07/16/23 06:02 07/16/23 06:02 07/16/23 06:02 07/16/23 06:02 07/16/23 06:02 07/15/23 17:00 Oxygen Flow Rate (L/min) 3 Oxygen Delivery Method Room Air Weight: 121.5 kg Body Mass Index (BMI) 37.5 Intake & Output: Intake and Output for Last 24 Hours 07/14/23 07/15/23 07/16/23 23:59 23:59 23:59 Intake Total 4050 / 4050 Output Total 475 / 475 Balance 4050 / 3775 -475 / -475 Lab / Micro Data 07/15/23 16:35 Labs: Laboratory Results - last 24 hr 07/15/23 08:06: POC Glucose 174 H 07/15/23 16:35: Hgb 11.5 L, Hct 34.7 L 07/15/23 22:54: POC Glucose 213 H 07/16/23 02:52: POC Glucose 202 H 07/16/23 06:05: POC Glucose 212 H Radiography Diagnostic Testing: Radiology Impression Foot X-Ray 07/15/23 10:52 IMPRESSION: Fluoroscopic guidance for talonavicular fusion. Please refer to operative report for further information. Electronically Signed: Joel Baker MD at 18:02 EST , Physical Exam Narrative GENERAL: cooperative HEENT: Atraumatic; normocephalic EYES; Anicteric, Normal Conjunctiva NECK; supple, normal thyroid, RESPIRATORY: Diminished to auscultation CARDIOVASCULAR: Regular S1 S2, GI: soft, normoactive bowel sounds, : No Renal angle tenderness; EXTREMITIES: No edema, no clubbing, MUSCULOSKELETAL: Left foot in surgical dressing NEURO: Awake; no lateralizing signs. SKIN: No Rash PSYCH; Flat affect Assessment & Plan Assessment/Plan (1) Type 2 diabetes mellitus with diabetic polyneuropathy: PLAN: Plan Patient is a 43-year-old male who underwent Ankle Arthrodesis, Left Ankle, Subtalar Joint Arthrodesis, Left posterior/lateral soft tissue balancing/release Equinus Deformity, Left and Midfoot osteotomy with percutaneous pinning, left on 07/15/2023 on account of 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, DiabeticNeuropathy, Unstable left foot and ankle, the hospitalist service consulted to assist with patient medical comorbidities 1. Status post Ankle Arthrodesis, Left Ankle, Subtalar Joint Arthrodesis, Leftposterior/lateral soft tissue balancing/release Equinus Deformity, Left and Midfoot osteotomy with percutaneous pinning, left on 07/15/2023 on account of 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, Diabetic Neuropathy, Unstable left foot and ankle 2. Diabetes mellitus type II -patient's oral hypoglycemics held. Placed on long acting insulin, Accu-Cheks a.c. and at bedtime and covered with sliding scale insulin 3. Hypertension - Blood pressure controlled, home medications continued with dose adjustment as needed 4. Dyslipidemia ? Patient is on rosuvastatin plan is to resume on discharge 5. Class II obesity with BMI of 37.5 ? Complicating care weight loss advised 6. DVT prophylaxis ? Will defer to primary service Time spent in the patient's overall evaluation,decision-making process, review of diagnostic data, adjustment of management, discussion with other providers, nursing nursing and ancillary staff involved in patient's care documentation, 40 Minutes Charges/Coding Visit Charges Inpatient E&M: 06555 Subs Hosp L2 07/16/23 1039 <Electronically signed by Wojciech Bowman MD> Cosigner Signature (if applicable): CC: ~ Signed [facility] Work Phone: 1(529) 799-326012-09-2023 Progress note Author Markel Miranda [facility] July 16, 2023 7:08am Note Date/Time July 15, 2023 7 :34pm [facility] Medical Records Department [address] [place] [address] Progress Note - Hospitalist 07/15/231933 MR#: [id number] Acct: [id number] Name: SENHA WEI Rep #:[id number] : 1980 43 From: Markel Miranda MD PCP: Dr. Liliane Epps, DO Status:ADM RADHA [id number] Reason for Visit Reason for Visit: Diagnoses Type 2 diabetes mellitus with diabetic polyneuropathy (07/15/23) Non-pressure chronic ulcer of right 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 (07/15/23) Charcot's joint, right ankle and foot (07/15/23) Charcot's joint, unspecified ankle and foot (07/15/23) Other acute osteomyelitis, left ankle and foot (07/15/23) Subjective Subjective Type 2 diabetes with diabetic polyneuropathy, osteomyelitis, right ankle Charcotjoint, Charcot arc property of midfoot underwent left ankle arthrodesis, subtalar joint arthrodesis midfoot osteotomy and left lower extremity was splinted today. He is currently in under observation status following his surgery today. At present there is no pain, knee symptomatically well. He is admitted only forovernight observation for Objective Data Objective Data Vital Signs: Vital Signs Temp Pulse Resp BP Pulse Ox O2 Del Method O2 Flow Rate 98.3 F 96 16 93/68 97 Room Air 3 07/15/23 18:13 07/15/23 18:13 07/15/23 18:13 07/15/23 18:13 07/15/23 18:13 07/15/23 18:13 07/15/23 17:00 Oxygen Flow Rate (L/min) 3 Oxygen Delivery Method Room Air Weight: 267 lb 13.786 oz Body Mass Index (BMI) 37.5 Intake & Output: Intake and Output for Last 24 Hours 07/13/23 07/14/23 07/15/23 23:59 23:59 23:59 Intake Total 4050 / 4050 Balance 4050 / 4050 Lab / Micro Data Attestation: I reviewed the patient's lab results. 07/15/23 16:35 Labs: Laboratory Results - last 24 hr 07/15/23 08:06: POC Glucose 174 H 07/15/23 16:35: Hgb 11.5 L, Hct 34.7 L Radiography Diagnostic Testing: Radiology Impression Foot X-Ray 07/15/23 10:52 IMPRESSION: Fluoroscopic guidance for talonavicular fusion. Please refer to operative report for further information. Electronically Signed: Joel Baker MD at 18:02 EST , Physical Exam Const alert, oriented x3, no apparent distress, average body habitus, healthy appearing and well nourished HEENT head/scalp atraumatic, moist oral mucous membranes, oropharynx normal, dentitionnormal and gingiva normal Eyes PERRL, EOMs intact bilaterally and conjunctivae normal Neuro oriented x3 Assessment & Plan Assessment/Plan (1) Type 2 diabetes mellitus with diabetic polyneuropathy: PLAN: Plan 1. Type 2 diabetes mellitus with diabetic polyneuropathy: We were consulted forthe medical management of his diabetes. At home he is only on metformin for sugar control. We will start him on insulin sliding scale for overnight controlof his blood sugars. He will follow-up with endocrinology as an outpatient for further management 2. Hypertension: Blood pressure is well-controlled in the hospital. He took losartan this morning. Will get his dose of losartan tomorrow with breakfast. 3. Dyslipidemia on rosuvastatin, continue same after discharge. Charges/Coding Visit Charges Office Visits / Consults: 97097 OV L3 Est 07/16/23 0708 <Electronically signed by Markel Miranda MD> Cosigner Signature (if applicable): CC: ~ Signed [facility] Work Phone: 1([phone]) 132-762512-08-2023 Procedure [facility] 02-11-2023 Discharge summary Author Sergei [place] [facility] February 11, 2023 4:11pm Note Date/Time February 11, 2023 4:11p [facility] [address] [place] [address] / REHABILITATION SERVICES DISCHARGE SUMMARY MR#: [id number] Acct: [id number] Name: SNEHA WEI Jr. Rep #: [id number] : 1980 42 From: Sergei Alvarez PT, ATC Referring Dr.: BALTAZAR Perkins Status: REG R Insurance: [employer] SELF PAY INSURANCE Discharge Summary D/C Summary: It has been my pleasure to treat SNEHA WEI Jr. referred by Dr. Jordi Perkins, BALTAZAR, with the diagnosis of for a total of visit(s). Discharge Date: Please see the following information for a summary of their discharge status. D/C Information d/c sentence: If there are questions or concerns regarding this patient's physical therapy, please feel free to call me at [phone]. Thank you for the referral of thispatient. Sincerely, Sergei Alvarez, PT, ATC <Electronically signed by Sergei Alvarez PT, ATC> 02/11/23 1611 CC: BALTAZAR Perkins; Dr. Liliane Epps, DO ~ [facility] Signed [facility] Work Phone: [phone]) [phone] Discharge summary Author Sergei Alvarez [facility] February 11, 2023 4:11pm Note Date/Time February 11, 2023 4:11p [facility] Physical Therapy [facility] [address] [place] [address] / REHABILITATION SERVICES DISCHARGE SUMMARY MR#: [id number] Acct: [id number] Name: SNEHA WEI Jr. Rep #: [id number] : 1980 42 From: Sergei Alvarez PT, ATC Referring Dr.: BALTAZAR Perkins Status: REG RCR Insurance: [employer] SELF PAY INSURANCE Discharge Summary D/C summary: It has been my pleasure to treat SNEHA WEI Jr. referred by Dr. 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 Discharge Date: Please see the following information for a summary of their discharge status. Subjective Subjective: Pt reports no pain today Pain R ankle: Pain Intensity (Out of 10): 0 Overall Improvement % Improvement: 85 Objective Objective/Function: 0/10 pain this date Pt is able to ambulate 1000 feet without difficulty Pt is I with HEP DF= -10 degrees Goals Goal 1:: Decrease R ankle pain x 50% to aid with increasing tolerance for ambulation Goal Progress: Goal Met Goal 2:: Pt will be able to ambulate greater than 1000 feet to aid with community ambulation Goal Progress: Goal Met Goal 3:: Increase R ankle DF ROM x 10 degrees to aid with restoring a more normalized gait pattern Goal Progress: Progressing Goal 4:: I with HEP Goal Progress: Goal Met Plan Plan: Discontinue to HEP D/C Information d/c sentence: If there are questions or concerns regarding this patient's physical therapy, please feel free to call me at [phone]. Thank you for the referral of thispatient. Sincerely, Sergei Alvarez, PT, ATC Balance/Gait/Functional tests Balance/Special Test Scores Lower Extremity Functional Score: 60 <Electronically signed by Sergei Alvarez PT, ATC> 02/11/23 1611 CC: BALTAZAR Perkins; Dr. Liliane Epps, DO ~ [facility] Signed [facility] Work Phone: [phone]) 448-157402-11-[address] Perkins [facility] September 18, 2022 9:23am Note Date/Time September 18, 2022 9:23am [facility] Medical Records Department [address] [address] Discharge Summary 09/18/22 0920 MR#: [id number] Acct: [id number] Name: SNEHA WEI Jr. Rep #:[id number] : 1980 42 From: Jordi Perkins DPM PCP: Dr. Liliane Epps, DO Status:ADM RADHA Location: [place] [id number] Providers Date of Admission: 09/17/22 Primary Care Physician: Dr. Liliane Epps, DO Consultations 09/17/22 14:03 Consult: Hospitalist Routine Consulting Provider: [facility] Reason for Consult: medical mangement EMERGENT Consult: No MD Notified: Yes Date Notified: 09/17/22 Time Notified: 15:21 Method of Notification: via spok Reason For Visit: rt tibiotalo calcaneal arthrodesis Diagnosis Discharge Diagnosis (1) Acquired varus deformity of right ankle: Status: Acute Code(s): M21.171 - Varus deformity, not elsewhere classified, right ankle Plan: Exam performed. H&H stable yesterday. Awaiting new CBC BMP today. Bleeding appears to be resolved at this time. As mentioned there is a slight hematoma to the lateral ankle incision where the fibulectomy was performed. After obtaining oral consent the site was prepped with Betadine paint and using a 18-gauge needle 20 cc syringe as well as active pressure. Approximately 2 cc were drained from the site. Site was redressed with Adaptic 4 x 4's ABD pads and a well-padded Bradford compression posterior splint. Patient will maintain nonweightbearing status to right lower extremity until follow-up in 1 week. Patient will hold blood thinners at this time and will restart Lovenox on 09/20/2022. We will discharge patient with oral narcotic analgesics for acute postoperative pain management. Patient will be discharged today we will continue to observe observe for an additional 3 hours to ensure no additional strikethrough or drainage with regards to the bandage, but I strongly feel that the bleeding has resolved at this time. (2) Charcot's joint, right ankle and foot: Status: Acute Code(s): M14.671 - Charcot's joint, right ankle and foot Medications at Discharge Home Medications empagliflozin 25 mg tablet (Jardiance) 25 mg PO DAILY diabetes 11/14/21 metformin 1,000 mg tablet 1,000 mg PO BID diabetes 11/14/21 pravastatin 40 mg tablet 40 mg PO QHS cholesterol 11/14/21 arginine 7 gram-glutam 7 gram-CaHMB 1.5 [id number]-min oral pwd pkt (Galo (with collagen)) 1 packet PO BIDCM #30 ea 11/21/21 ascorbic acid (vitamin C) 500 mg tablet (Vitamin C) 500 mg PO DAILY 11/24/21 calcium citrate 200 mg (950 mg) tablet 200 mg PO DAILY 11/24/21 multivitamin 1 tab PO DAILY 11/24/21 omega-3 fatty acids 2 cap PO DAILY 11/24/21 losartan 25 mg tablet 25 mg PO DAILY 09/15/22 enoxaparin 40 mg/0.4 mL subcutaneous syringe 40 mg (0.4 mL) subcut DAILY #12 mL 09/18/22 oxycodone 5 mg capsule 5 mg PO Q4H PRN pain 7 days #42 caps 09/18/22 Hospital Course Summary of Care Provided Hospital Course: Admitted overnight for postoperative pain control and some bleeding. Patient had strikethrough overnight. Change dressing today bleeding. Resolved. Attempted to relieve hematoma from lateral ankle small portion of hematoma drained at this time. Redressed site with well-padded compression dressing and posterior splint. Patient underwent Charcot reconstruction secondary to a severe equina varus deformity in setting of diabetic neuropathy. Patient preoperatively obtained significantly improved blood glucose control, lost approximately 50 to 70 pounds of weight and was motivated to return to an ambulatory lifestyle with minimal bracing. Patient underwent operative reconstruction of right lower extremity on 09/17/2022. Deformity was reduced andplantigrade foot was restored. Patient is admitted for overnight observation. Bleeding appeared and pain appear to be well controlled will discharge home for nonweightbearing for the next 4 to 12 weeks until adequate healing noted. Patient will keep dressing clean dry and intact till follow-up in 1 week. Physical Exam Narrative Neurovascular status intact to right foot. Patient able to actively wiggle digits. Capillary fill time brisk to the toes 1 through 5 right lower extremity. Incisional sites appear well approximated and intact there is noted to be mild sanguinous drainage from the plantar heel incision where the nail went in as well as the lateral ankle incision. No acute signs of infection. Laterally where the fibulectomy was performed there is noted to be a small hematoma. Rectus alignment of the foot relative to the leg. No pain with calf squeeze or popliteal fossa or signs of DVT at this time. Const alert and oriented x3 Weight / BMI Weight Weight: 121 kg Body Mass Index (BMI) 37.2 ABG / Lab / Microbiology Data Result Diagrams: 09/17/22 19:50 09/17/22 14:43 Laboratory: Laboratory Results - last 24 hr 09/17/22 12:48: POC Glucose 183 H 09/17/22 14:43: WBC 8.9, RBC 5.20, Hgb 14.8, Hct 45.8, MCV 88.1, MCH 28.5, MCHC 32.3, RDW Std Deviation 42.1, RDW Coeff of Venita 13.0, Plt Count 185, MPV 9.2, Immature Gran % (Auto) 0.500, Neut % (Auto) 94.0 H, Lymph % (Auto) 4.3 L, Union %(Auto) 1.0, Eos % (Auto) 0.1, Baso % (Auto) 0.1, Absolute Neuts (auto) 8.3 H, Absolute Lymphs (auto) 0.38 L, Nucleated RBC % 0, Differential Comment SCANNED 09/17/22 14:43: Sodium 139, Potassium 4.9, Chloride 106, Carbon Dioxide 27.0, Anion Gap 6, BUN 35 H, Creatinine 1.25, Estim Creat Clear Calc 83.67, Est GFR (MDRD) Af Amer 82, Est GFR (MDRD) Non-Af 68, BUN/Creatinine Ratio 28.0 H, Glucose 189 H, Calcium 9.0, Total Bilirubin 0.70, AST 19, ALT 26, Alkaline Phosphatase 77, Total Protein 6.6, Albumin 3.5, Globulin 3.1, Albumin/Globulin Ratio 1.1 09/17/22 16:14: POC Glucose 184 H 09/17/22 19:50: Hgb 13.5, Hct 40.8 09/17/22 22:45: POC Glucose 173 H 09/18/22 06:45: POC Glucose 148 H 09/18/22 08:08: Hemoglobin A1c 6.1 H Radiography Diagnostic Testing: Radiology Impression Ankle X-Ray 09/17/22 06:30 IMPRESSION: Intraoperative digital documentation views. Electronically Signed: Fredis Govea, at 13:00 EST Reading Location ID and State: [address] [place] [address] , Service support , Meaningful Use Info Meaningful Use Diagnoses (Choose all that apply): None applicable Discharge Plan Admission Admit Date/Time: 09/17/22 12:54 Attending Provider: Jordi Perkins Primary Care Provider: Liliane Epps Consulting Providers: Marely Arriaga ; Joy Horn ; Cameron Julien ; Yuliya Reed ; Isamar Lester ; Rowena Pandey NP ; Luke Street NP ; Liliana Barrett ; Luke Garnett Instructions Additional Instructions / Restrictions: Keep dressing clean, dry and intact until follow up in 1 week maintain NWB assisted by walker or knee scooter to right lower extremity remain primarily sedentary with right limb elevated above heart Take pain medication as needed/as directed Ice behind knee to assist post operative pain management contact our office or present to ED if any strikethrough noted or signs of infection noted Discharge Orders/Prescriptions Prescriptions: New oxycodone 5 mg capsule 5 mg PO Q4H PRN (Reason: pain) 7 Days Qty: 42 0RF enoxaparin 40 mg/0.4 mL syringe 40 mg subcut DAILY Qty: 12 0RF Rx Instructions: start medication on 09/20/22 Continued pravastatin 40 mg tablet 40 mg PO QHS Label Comments: take 1 tablet by mouth once daily metformin 1,000 mg tablet 1,000 mg PO BID Jardiance 25 mg tablet 25 mg PO DAILY Galo (with collagen) 7-7-1.5 gram Powder In Packet 1 packet PO BIDCM Qty: 30 0RF multivitamin Tablet 1 tab PO DAILY ascorbic acid (vitamin C) [Vitamin C] 500 mg Tablet 500 mg PO DAILY calcium citrate 200 mg (950 mg) Tablet 200 mg PO DAILY omega-3 fatty acids Capsule 2 cap PO DAILY losartan 25 mg Tablet 25 mg PO DAILY Discontinued aspirin 81 mg Tablet 81 mg PO DAILY Referrals / Follow Up: Liliane Epps DO [Primary Care Provider] - Disposition Disposition (needs filled in before D/C Order can be placed): Home, Self Care 09/18/22922 <Electronically signed by Jordi Perkins DPM> Cosigner Signature (if applicable): CC: BALTAZAR Perkins; Dr. Liliane Epps, DO~ Signed [facility] Work Phone: 1(966) 570-532702-11-[address] Perkins [facility] September 18, 2022 9:15am Note Date/Time September 18, 2022 9:15am [facility] Medical Records Department [address] [facility] [place] [address] Progress Note 09/18/22910 MR#: [id number] Acct: [id number] Name: ERIBERTOSNEHACecil FRAGOSO Jr. Rep #:[id number] : 1980 42 From: Jordi Perkins DPM PCP: Dr. Liliane Epps, Status:ADM RADHA Location: [facility] [id number] Subjective Subjective 42-year-old male seen at site today. No pain. Denies constitutional's. Denieschest pain calf pain shortness of breath. Had some bleeding strikethrough overnight. Positive passing gas. Voiding urine. Objective Data Objective Data Vital Signs: Vital Signs Temp Pulse Resp BP Pulse Ox O2 Del Method O2 Flow Rate 97.5 F L 85 16 117/68 97 Room Air 2 09/18/22 02:56 09/18/22 02:56 09/18/22 02:56 09/18/22 02:56 09/18/22 02:56 09/18/22 07:22 09/17/22 13:30 Oxygen Flow Rate (L/min) 2 Oxygen Delivery Method Room Air Weight: 121 kg Body Mass Index (BMI) 37.2 Intake & Output: Intake and Output for Last 24 Hours 09/16/22 09/17/22 09/18/22 23:59 23:59 23:59 Intake Total 3640 / 3840 600 / 600 Output Total 600 / 650 700 / 700 Balance 3040 / 3190 -100 / -100 Lab / Micro Data Result Diagrams: 09/17/22 19:50 09/17/22 14:43 Labs: Laboratory Results - last 24 hr 09/17/22 12:48: POC Glucose 183 H 09/17/22 14:43: WBC 8.9, RBC 5.20, Hgb 14.8, Hct 45.8, MCV 88.1, MCH 28.5, MCHC 32.3, RDW Std Deviation 42.1, RDW Coeff of Venita 13.0, Plt Count 185, MPV 9.2, Immature Gran % (Auto) 0.500, Neut % (Auto) 94.0 H, Lymph % (Auto) 4.3 L, Union %(Auto) 1.0, Eos % (Auto) 0.1, Baso % (Auto) 0.1, Absolute Neuts (auto) 8.3 H, Absolute Lymphs (auto) 0.38 L, Nucleated RBC % 0, Differential Comment SCANNED 09/17/22 14:43: Sodium 139, Potassium 4.9, Chloride 106, Carbon Dioxide 27.0, Anion Gap 6, BUN 35 H, Creatinine 1.25, Estim Creat Clear Calc 83.67, Est GFR (MDRD) Af Amer 82, Est GFR (MDRD) Non-Af 68, BUN/Creatinine Ratio 28.0 H, Glucose 189 H, Calcium 9.0, Total Bilirubin 0.70, AST 19, ALT 26, Alkaline Phosphatase 77, Total Protein 6.6, Albumin 3.5, Globulin 3.1, Albumin/Globulin Ratio 1.1 09/17/22 16:14: POC Glucose 184 H 09/17/22 19:50: Hgb 13.5, Hct 40.8 09/17/22 22:45: POC Glucose 173 H 09/18/22 06:45: POC Glucose 148 H 09/18/22 08:08: Hemoglobin A1c 6.1 H Radiography Diagnostic Testing: Radiology Impression Ankle X-Ray 09/17/22 06:30 IMPRESSION: Intraoperative digital documentation views. Electronically Signed: Fredis Govea, at 13:00 EST , Physical Exam Narrative Neurovascular status intact to right foot. Patient able to actively wiggle digits. Capillary fill time brisk to the toes 1 through 5 right lower extremity. Incisional sites appear well approximated and intact there is noted to be mild sanguinous drainage from the plantar heel incision where the nail went in as well as the lateral ankle incision. No acute signs of infection. Laterally where the fibulectomy was performed there is noted to be a small hematoma. Rectus alignment of the foot relative to the leg. No pain with calf squeeze or popliteal fossa or signs of DVT at this time. Const alert and oriented x3 Assessment & Plan Assessment/Plan (1) Acquired varus deformity of right ankle: PLAN: Exam performed. H&H stable yesterday. Awaiting new CBC BMP today. Bleeding appears to be resolved at this time. As mentioned there is a slight hematoma to the lateral ankle incision where the fibulectomy was performed. After obtaining oral consent the site was prepped with Betadine paint and using a 18-gauge needle 20 cc syringe as well as active pressure. Approximately 2 cc were drained from the site. Site was redressed with Adaptic 4 x 4's ABD pads and a well-padded Bradford compression posterior splint. Patient will maintain nonweightbearing status to right lower extremity until follow-up in 1 week. Patient will hold blood thinners at this time and will restart Lovenox on 09/20/2022. We will discharge patient with oral narcotic analgesics for acute postoperative pain management. Patient will be discharged today we will continue to observe observe for an additional 3 hours to ensure no additional strikethrough or drainage with regards to the bandage, but I strongly feel that the bleeding has resolved at this time. (2) Charcot's joint, right ankle and foot: 09/18/22 0915 <Electronically signed by Jordi Perkins DPM> Jordi Perkins DPM Cosigner Signature (if applicable): CC: ~ Signed [facility] Work Phone: 1(220) 614-802302-10-[address] Saba [facility] September 17, 2022 7:12pm Note Date/Time September 17, 2022 3:54pm [facility] Medical Records Department [address] [place] [address] [place] [address] Progress Note - Hospitalist 09/17/22 0944 MR#: [id number] Acct: [id number] Name: SNEHA WEI Jr. Rep #:[id number] : 1980 42 From: Alma Saba MD PCP: Dr. Liliane Epps, DO Status:ADM RADHA Location: [place] [address] Reason for Visit Reason for Visit: Diagnoses Type 2 diabetes mellitus with diabetic polyneuropathy (09/17/22) Charcot's joint, right ankle and foot (09/17/22) Varus deformity, not elsewhere classified, right ankle (09/17/22) Subjective Subjective The patient is a 42 y/o M w/ PMHx: Diabetes mellitus type II with neuropathy, HTN, HLD, Obesity who presents to the [facility] on 09/17/[address] for planned OR per Dr. Perkins Podiatry secondary to Charcot foot with hindfoot equinovarus deformity for planned posterior medial soft tissue release with an Achilles tenotomy on the right and a tibial talocalcaneal arthrodesis on the right. Postoperatively podiatry requested hospitalist consultation for medical management. Patient evaluated on the medical surgical floor and denied any pain to the right lower extremity as his block was still effective with sensation now down the thigh to the knee. Did evaluate the right lower extremity and there is a bright red blood on the very lower portion at the heel region which was reviewed with the nursing staff and requested that she place a compression dressing to that regionand notify podiatry of these findings especially if it continued. Notified by nursing staff later also that bleeding had subsided but patient's blood pressuredropped into the 90s with no symptoms but did also have a reported 200 cc blood loss while in the OR. Patient denies any lightheadedness or dizziness, fevers, chills, nausea, emesis, abdominal pain, chest pain or dyspnea. Objective Data Objective Data Vital Signs: Vital Signs Temp Pulse Resp BP Pulse Ox O2 Del Method O2 Flow Rate 97.1 F L 88 18 106/72 99 Room Air 2 09/17/22 14:09 09/17/22 14:09/17/22 14:09/17/22 14:09/17/22 14:09/17/22 14:09/17/22 13:30 Oxygen Flow Rate (L/min) 2 Oxygen Delivery Method Room Air Weight: 266 lb 12.149 oz Body Mass Index (BMI) 37.2 Intake & Output: Intake and Output for Last 24 Hours 09/15/22 09/16/22 09/17/22 23:59 23:59 23:59 Intake Total 2049 / 2049 Output Total 600 / 600 Balance 1450 / 1450 Lab / Micro Data Result Diagrams: 09/17/22 14:43 09/17/22 14:43 Labs: Laboratory Results - last 24 hr 09/17/22 06:24: POC Glucose 134 H 09/17/22 12:48: POC Glucose 183 H 09/17/22 14:43: Sodium 139, Potassium 4.9, Chloride 106, Carbon Dioxide 27.0, Anion Gap 6, BUN 35 H, Creatinine 1.25, Estim Creat Clear Calc 83.67, Est GFR (MDRD) Af Amer 82, Est GFR (MDRD) Non-Af 68, BUN/Creatinine Ratio 28.0 H, Glucose 189 H, Calcium 9.0, Total Bilirubin 0.70, AST 19, ALT 26, Alkaline Phosphatase 77, Total Protein 6.6, Albumin 3.5, Globulin 3.1, Albumin/Globulin Ratio 1.1 Radiography Diagnostic Testing: Radiology Impression Ankle X-Ray 09/17/22 06:30 IMPRESSION: Intraoperative digital documentation views. Electronically Signed: Fredis Govea, at 13:00 EST Reading Location ID and State: [address] [place] [address] , Service support , Physical Exam Narrative Physical Examination: General: Awake, alert, oriented x 3 and cooperative, seated upright in MS bed, no complaints, block still mostly intact right lower extremity Skin: Normal color, normal turgor, no icterus, no cyanosis except for notable bright red blood bleeding at the heel region through the OR dressing. HEENT: AT/NC, EOMI, PERRLA, MMM, no carotid bruits or JVD noted. Lungs: Mildly diminished, bases, appropriate effort, no rales, ronchi or wheezing. Heart: Currently regular rate and rhythm; no gallop, rub audible. Abdomen: Soft, obese, NTTP, ND, mildly hyperactive BS, no HSM. Extremities: No cyanosis, no clubbing or edema noted to left lower extremity, right lower extremity in a large postoperative dressing per podiatry, active bright red blood seeping through the heel region, see skin. Neurological: Patient awake, alert, oriented as noted, cognitive function intact; pupils equally reactive to light and accommodation, cranial nerves II-XII grossly normal, moving extremities except distal given block still intact, strength accordingly moderately to severely global decreased but improving. Psychiatric: Affect appears normal, no acute evidence of depressive or anxiety feelings. Assessment & Plan Assessment/Plan (1) Charcot's joint, right ankle and foot: PLAN: Plan The patient is a 42 y/o M w/ PMHx: Diabetes mellitus type II with neuropathy, HTN, HLD, Obesity who presents to the [facility] on 09/17/[address] for planned OR per Dr. Perkins Podiatry secondary to Charcot foot with hindfoot equinovarus deformity for planned posterior medial soft tissue release with an Achilles tenotomy on the right and a tibiotalocalcaneal arthrodesis on the right. #1. Charcot foot with hindfoot equinovarus deformity status post operative intervention with postoperative site bleeding noted upon evaluation: Patient status post posterior medial soft tissue release with Achilles tenotomy on the right and tibiotalocalcaneal arthrodesis on the right as well, given bright red blood noted on evaluation compressive reinforcement dressing being placed to theheel region with podiatry notification, blood pressure did decrease therefore will administer 1 L normal saline bolus and continue to closely monitor with hold on blood pressure medication as needed, chemoprophylaxis per surgery discretion given recent bleeding noted and s/p OR status, pain regimen as well as antiemetic regimen also per discretion of podiatry service, will expect nonweightbearing to the right lower extremity. Given hypotension onset will obtain stat H&H to be cautious. #2. IDDM with polyneuropathy and history of diabetic foot wounds/osteomyelitis:Hold oral home regimen, continue home insulin regimen, ADA diet, accu checks w/ ISS. #3. Hypertension: Continue home regimen including losartan, PRN hydralazine. #4. Hyperlipidemia: We will continue patient on statin therapy. #5. DVT prophylaxis: SCD to left lower extremity if able, chemoprophylaxis addition per surgery discretion given recent bleeding as noted as well as recentOR status. Admission Evaluation Time spent evaluating chart, patient history, patient evaluation, care planning and discussion with specialists: 50 minutes. Charges/Coding Visit Charges Inpatient E&M: 75740 Subs Hosp L3 09/17/221911 <Electronically signed by Alma Saba MD> Cosigner Signature (if applicable): CC: ~ Signed [facility] Work Phone: [phone]) 955-744602-10-2023 [facility] Author Jordi Perkins [facility] July 16, 2023 11:32am Note Date/Time July 16, 2023 1 1:32am [facility] Medical Records Department [address] [place] [address] Discharge Summary 07/16/23 1131 MR#: [id number] Acct: [id number] Name: SNEHA WEI Jr. Rep #:[id number] : 1980 43 From: Jordi Perkins DPM PCP: Dr. Liliane Epps DO Status:ADM RADHA [id number] Prov[facility] Date of Admission: 07/15/23 Primary Care Physician: Dr. Liliane Epps DO Consultations 07/15/23 18:12 Consult: Hospitalist Routine Consulting Provider: Wojciech Bowman Reason for Consult: med management EMERGENT Consult: No MD Notified: Yes Date Notified: 07/15/23 Time Notified: 19:05 Method of Notification: Text Reason For Visit: Left foot & ankle charcot reconstru Diagnosis Discharge Diagnosis (1) Type 2 diabetes mellitus with diabetic polyneuropathy: Status: Acute Code(s): E11.42 - Type 2 diabetes mellitus with diabetic polyneuropathy Plan: Exam performed Patient will maintain nonweightbearing left lower extremity for approximately 8 weeks Patient will use Lovenox for DVT prophylaxis he already has this at home Patient does not have any pain and will not require any pain medication secondary to diabetic neuropathy Dressing was changed incisional sites were examined and noted to be intact redressed with Betadine Adaptic dry sterile dressing and a well-padded AO splintwas applied to left lower extremity. Patient will discharge today and follow-up in 1 week. (2) Charcot's joint, right ankle and foot: Status: Acute Code(s): M14.671 - Charcot's joint, right ankle and foot (3) Charcot arthropathy of midfoot: Status: Acute Code(s): M14.679 - Charcot's joint, unspecified ankle and foot Medications at Discharge Home Medications metformin 1,000 mg tablet 1,000 mg PO BID diabetes 11/14/21 pravastatin 40 mg tablet 80 mg PO QHS cholesterol 11/14/21 ascorbic acid (vitamin C) 500 mg tablet (Vitamin C) 500 mg PO DAILY 11/24/21 calcium citrate 200 mg (950 mg) tablet 200 mg PO DAILY 11/24/21 multivitamin 1 tab PO DAILY 11/24/21 omega-3 fatty acids 2 cap PO DAILY 11/24/21 losartan 25 mg tablet 25 mg PO DAILY 09/15/22 semaglutide 14 mg tablet (Rybelsus) 14 mg PO DAILY 07/06/23 ciprofloxacin HCl 750 mg tablet 750 mg PO BID #20 tabs 07/16/23 doxycycline hyclate 100 mg capsule 100 mg PO BID #20 caps 07/16/23 Hospital Course Summary of Care Provided Hospital Course: Patient admitted after left foot Charcot reconstruction due to length of procedure and significant bleeding throughout the case. Bleeding noted to be resolved today. Incisional sites were intact. Patient has no pain at current. Will be discharged to home. Physical Exam Narrative Neurovascular status unchanged Dermatologic medial lateral ankle incisions are well-approximated intact there is a full-thickness wound to medial ankle which was unable to be closed during surgery due to tension from significant deformity correction. Percutaneous pinsintact. Plantar heel incision intact. Posterior Achilles incision intact. Proximal medial tibia incisions intact. No signs DVT bilaterally. Reduction of Charcot deformity left foot status post left TTC fusion with midfoot osteotomy. Weight / BMI Weight Weight: 121.5 kg Body Mass Index (BMI) 37.5 ABG / Lab / Microbiology Data 07/15/23 16:35 Laboratory: Laboratory Results - last 24 hr 07/15/23 16:35: Hgb 11.5 L, Hct 34.7 L 07/15/23 22:54: POC Glucose 213 H 07/16/23 02:52: POC Glucose 202 H 07/16/23 06:05: POC Glucose 212 H Radiography Diagnostic Testing: Radiology Impression Foot X-Ray 07/15/23 10:52 IMPRESSION: Fluoroscopic guidance for talonavicular fusion. Please refer to operative report for further information. Electronically Signed: Joel Baker MD at 18:02 EST Reading Location ID and State: [facility] / [place] Tel , Service support , Meaningful Use Info Meaningful Use Diagnoses (Choose all that apply): None applicable Discharge Plan Admission Admit Date/Time: 07/15/23 15:43 Attending Provider: Wojciech Bowman Primary Care Provider: Liliane Epps Consulting Providers: Jordi Perkins; Wojciech Bowman Instructions Additional Instructions / Restrictions: Keep dressing clean dry and intact to left lower extremity until follow-up Maintain nonweightbearing to left lower extremity Take prescriptions as directed Ice behind the knee as needed for pain and swelling 3 times a day for 15 minutes Keep elevated above the level of heart for edema and pain management Follow-up in 1 week Contact our clinic if there are any signs symptoms of DVT infection or strikethrough to the dressing patient has been counseled on these signs/symptoms. Discharge Orders/Prescriptions Prescriptions: New doxycycline hyclate 100 mg capsule 100 mg PO BID Qty: 20 0RF ciprofloxacin HCl 750 mg tablet 750 mg PO BID Qty: 20 0RF Continued pravastatin 40 mg tablet 80 mg PO QHS Patient Comments: take 1 tablet by mouth once daily metformin 1,000 mg tablet 1,000 mg PO BID multivitamin Tablet 1 tab PO DAILY ascorbic acid (vitamin C) [Vitamin C] 500 mg Tablet 500 mg PO DAILY calcium citrate 200 mg (950 mg) Tablet 200 mg PO DAILY omega-3 fatty acids Capsule 2 cap PO DAILY losartan 25 mg Tablet 25 mg PO DAILY Rybelsus 14 mg tablet 14 mg PO DAILY Referrals / Follow Up: Jordi Perkins DPM [Med Staff - Active Staff] - Liliane Epps DO [Primary Care Provider] - Disposition Disposition (needs filled in before D/C Order can be placed): Home, Self Care 07/16/23 1132 <Electronically signed by Jordi Perkins DPM> Cosigner Signature (if applicable): CC: BALTAZAR Perkins; Dr. Liliane Epps DO~ Signed [facility] Work Phone: Evaluation + Plan note Future Appointments Appointment Date:01/21/2022 02:30:00 PM Scheduled Provider:[facility]ILIANE EPPS DO [facility] OV Follow Up Future Scheduled Tests Laboratory* Complete Blood Count 04/27/21 * Lipid Profile 04/27/21 * Microalbumin Level Urine 04/27/21 * Complete Metabolic Panel 04/27/21 [facility] evaluation + Plan note Future Appointments Appointment Date:04/22/2022 02:30:00 PM Scheduled Provider:LILIANE EPPS DO [facility] Type:PC OV Future Scheduled Tests Laboratory* Basic Metabolic Panel 01/21/22 * Complete Blood Count 01/21/22 * Complete Blood Count 04/27/21 * Lipid Profile 04/27/21 * Microalbumin Level Urine 04/27/21 * Complete Metabolic Panel 04/27/21 [facility] evaluation + Plan note Future Appointments Appointment Date:04/22/2022 02:30:00 PM Scheduled Provider:LILIANE EPPS DO [facility] Type:PC OV Future Scheduled Tests Laboratory* Complete Blood Count 04/27/21 * Lipid Profile 04/27/21 * Microalbumin Level Urine 04/27/21 * Complete Metabolic Panel 04/27/21 [facility] evaluation + Plan note Future Appointments Appointment Date:08/03/2023 01:30:00 PM Scheduled Provider:LILIANE EPPS DO [facility] App[facility] Type:PC OV [facility] Evaluation + Plan note Future Appointments Appointment Date:09/27/2024 02:00:00 PM Scheduled Provider:LILIANE EPPS DO [facility] Type:PC OV Future Scheduled Tests Laboratory* Urinalysis w/ C&S if Indicated 05/28/24 * A1C Hemoglobin 05/28/24 * Complete Blood Count 05/28/24 * Albumin/Creatinine Ratio, Random Urine 06/27/24 * Complete Metabolic Panel 05/28/24 [facility] Evaluation noteNo Assessments Information Available [facility] Work Phone: Evaluation note* Diagnosis Onset Date Resolution Status Acute hyponatremia acute Acute kidney injury acute Dehydration acute Diabetic infection of left foot acute Gas gangrene acute Sepsis acute Type 2 diabetes mellitus with diabetic polyneuropathy acute 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 [facility] Work Phone: Evaluation note* Diagnosis Onset Date Resolution Status Acute hyponatremia acute Acute kidney injury acute Dehydration acute Diabetic infection of left foot acute Gas gangrene acute Sepsis acute Septic shock acute Type 2 diabetes mellitus with diabetic polyneuropathy acute 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 [facility] Work Phone: Evaluation note* Diagnosis Onset Date Resolution Status Diabetic infection of left foot acute 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 Acute hyponatremia resolved Acute kidney injury resolved Dehydration resolved Gas gangrene resolved Sepsis resolved Septic shock resolved Cellulitis acute Charcot arthropathy of midfoot acute Diabetic infection of left foot acute Gas gangrene of foot acute Osteomyelitis acute Osteomyelitis of ankle or foot, left, acute acute Type 2 diabetes mellitus with diabetic polyneuropathy acute 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 [facility] Work Phone: Evaluation note* Diagnosis Onset Date Resolution Status Diabetic infection of left foot acute 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 Acute hyponatremia resolved Acute kidney injury resolved Dehydration resolved Gas gangrene resolved Sepsis resolved Septic shock resolved Cellulitis acute Charcot arthropathy of midfoot acute Diabetic infection of left foot acute Gas gangrene of foot acute Osteomyelitis acute Osteomyelitis of ankle or foot, left, acute acute Type 2 diabetes mellitus with diabetic polyneuropathy acute 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 Charcot arthropathy of midfoot acute Gas gangrene of foot acute Osteomyelitis of ankle or foot, left, acute acute Type 2 diabetes mellitus with diabetic polyneuropathy acute 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 [facility] Work Phone: Evaluation note* Diagnosis Onset Date Resolution Status Diabetic infection of left foot acute 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 Acute hyponatremia resolved Acute kidney injury resolved Dehydration resolved Gas gangrene resolved Sepsis resolved Septic shock resolved Cellulitis acute Charcot arthropathy of midfoot acute Diabetic infection of left foot acute Gas gangrene of foot acute Osteomyelitis acute Osteomyelitis of ankle or foot, left, acute acute Type 2 diabetes mellitus with diabetic polyneuropathy acute 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 Charcot arthropathy of midfoot acute Gas gangrene of foot acute Osteomyelitis of ankle or foot, left, acute acute Type 2 diabetes mellitus with diabetic polyneuropathy acute 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 [facility] Work Phone: Evaluation note* Diagnosis Onset Date Resolution Status Charcot arthropathy of midfoot acute Gas gangrene of foot acute Osteomyelitis of ankle or foot, left, acute acute Type 2 diabetes mellitus with diabetic polyneuropathy acute 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 Charcot arthropathy of midfoot acute Osteomyelitis of ankle or foot, left, acute acute Type 2 diabetes mellitus with diabetic polyneuropathy acute 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 Charcot arthropathy of midfoot acute Osteomyelitis of ankle or foot, left, acute acute Type 2 diabetes mellitus with diabetic polyneuropathy acute 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 [facility] Work Phone: Evaluation note* Diagnosis Onset Date Resolution Status Charcot arthropathy of midfoot acute Gas gangrene of foot acute Osteomyelitis of ankle or foot, left, acute acute Type 2 diabetes mellitus with diabetic polyneuropathy acute 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 Charcot arthropathy of midfoot acute Osteomyelitis of ankle or foot, left, acute acute Type 2 diabetes mellitus with diabetic polyneuropathy acute 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 Charcot arthropathy of midfoot acute Osteomyelitis of ankle or foot, left, acute acute Type 2 diabetes mellitus with diabetic polyneuropathy acute 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 Charcot arthropathy of midfoot acute Osteomyelitis of ankle or foot, left, acute acute Type 2 diabetes mellitus with diabetic polyneuropathy acute 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 [facility] Work Phone: Evaluation note* Diagnosis Onset Date Resolution Status Charcot arthropathy of midfoot acute Osteomyelitis of ankle or foot, left, acute acute Type 2 diabetes mellitus with diabetic polyneuropathy acute 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 Charcot arthropathy of midfoot acute Osteomyelitis of ankle or foot, left, acute acute Type 2 diabetes mellitus with diabetic polyneuropathy acute 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 Charcot arthropathy of midfoot acute Osteomyelitis of ankle or foot, left, acute acute Type 2 diabetes mellitus with diabetic polyneuropathy acute 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 acute 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 [facility] Work Phone: Evaluation note* Diagnosis Onset Date Resolution Status Charcot arthropathy of midfoot acute Osteomyelitis of ankle or foot, left, acute acute Type 2 diabetes mellitus with diabetic polyneuropathy acute 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 Charcot arthropathy of midfoot acute Osteomyelitis of ankle or foot, left, acute acute Type 2 diabetes mellitus with diabetic polyneuropathy acute 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 acute 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 [facility] Work Phone: evaluation note* Diagnosis Onset Date Resolution Status Type 2 diabetes mellitus with diabetic polyneuropathy acute 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 [facility] Work Phone: evaluation note* Diagnosis Onset Date Resolution Status Type 2 diabetes mellitus with diabetic polyneuropathy acute 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 Acquired varus deformity of right ankle acute Charcot's joint, right ankle and foot acute Type 2 diabetes mellitus with diabetic polyneuropathy acute [facility] Work Phone: evaluation note* Diagnosis Onset Date Resolution Status Charcot's joint, right ankle and foot acute Type 2 diabetes mellitus with diabetic polyneuropathy acute Acquired varus deformity of right ankle resolved [facility] Work Phone: Evaluation noteNo assessment information available [facility] Work Phone: Evaluation note* Diagnosis Onset Date Resolution Status Charcot arthropathy of midfoot acute Charcot's joint, right ankle and foot acute Osteomyelitis acute Type 2 diabetes mellitus with diabetic polyneuropathy acute 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 [facility] Work Phone: Evaluation note* Diagnosis Onset Date Resolution Status Type 2 diabetes mellitus with diabetic polyneuropathy acute Charcot arthropathy of midfoot resolved Charcot's joint, right ankle and foot resolved Non-pressure chronic ulcer o f right 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 resolved Osteomyelitis resolved Abscess of bursa, left ankle and foot acute Cellulitis of left lower limb acute Type 2 diabetes mellitus with diabetic polyneuropathy acute 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 Abscess of bursa, left ankle and foot acute Cellulitis of left lower limb acute Charcot foot due to diabetes mellitus acute Diabetic infection of left foot acute Osteomyelitis of ankle, left, acute acute Type 2 diabetes mellitus with diabetic polyneuropathy acute 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 [facility] Work Phone: Evaluation note* Diagnosis Onset Date Resolution Status Type 2 diabetes mellitus with diabetic polyneuropathy acute Charcot arthropathy of midfoot resolved Charcot's joint, right ankle and foot resolved Non-pressure chronic ulcer o f right 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 resolved Osteomyelitis resolved Abscess of bursa, left ankle and foot acute Cellulitis of left lower limb acute Charcot foot due to diabetes mellitus acute Diabetic infection of left foot acute Osteomyelitis of ankle, left, acute acute Type 2 diabetes mellitus with diabetic polyneuropathy acute 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 Abscess of bursa, left ankle and foot acute Cellulitis of left lower limb acute Charcot foot due to diabetes mellitus acute Osteomyelitis of ankle, left, acute acute Type 2 diabetes mellitus with diabetic polyneuropathy acute 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 [facility] Work Phone: Evaluation note* Diagnosis Onset Date Resolution Status Type 2 diabetes mellitus with diabetic polyneuropathy acute Charcot arthropathy of midfoot resolved Charcot's joint, right ankle and foot resolved Non-pressure chronic ulcer o f right 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 resolved Osteomyelitis resolved Abscess of bursa, left ankle and foot acute Cellulitis of left lower limb acute Charcot foot due to diabetes mellitus acute Diabetic infection of left foot acute Osteomyelitis of ankle, left, acute acute Type 2 diabetes mellitus with diabetic polyneuropathy acute 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 Abscess of bursa, left ankle and foot acute Cellulitis of left lower limb acute Charcot foot due to diabetes mellitus acute Osteomyelitis of ankle, left, acute acute Type 2 diabetes mellitus with diabetic polyneuropathy acute 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 Abscess of bursa, left ankle and foot acute Cellulitis acute Cellulitis of left lower limb acute Charcot foot due to diabetes mellitus acute Diabetic infection of left foot acute Gas gangrene of foot acute Osteomyelitis of ankle or foot, left, acute acute Osteomyelitis of ankle, left, acute acute Other acute postprocedural pain acute Type 2 diabetes mellitus with diabetic polyneuropathy acute Hypertension chronic 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 Abscess of bursa, left ankle and foot acute Cellulitis acute Cellulitis of left lower limb acute Charcot foot due to diabetes mellitus acute Diabetic infection of left foot acute Gas gangrene of foot acute Osteomyelitis of ankle or foot, left, acute acute Osteomyelitis of ankle, left, acute acute Other acute postprocedural pain acute Type 2 diabetes mellitus with diabetic polyneuropathy acute Hypertension chronic 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 [facility] Work Phone: Evaluation note* Diagnosis Onset Date Resolution Status Type 2 diabetes mellitus with diabetic polyneuropathy acute Charcot arthropathy of midfoot resolved Charcot's joint, right ankle and foot resolved Non-pressure chronic ulcer o f right 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 resolved Osteomyelitis resolved Abscess of bursa, left ankle and foot acute Cellulitis of left lower limb acute Charcot foot due to diabetes mellitus acute Diabetic infection of left foot acute Osteomyelitis of ankle, left, acute acute Type 2 diabetes mellitus with diabetic polyneuropathy acute 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 Abscess of bursa, left ankle and foot acute Cellulitis of left lower limb acute Charcot foot due to diabetes mellitus acute Osteomyelitis of ankle, left, acute acute Type 2 diabetes mellitus with diabetic polyneuropathy acute 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 Abscess of bursa, left ankle and foot acute Cellulitis acute Cellulitis of left lower limb acute Charcot foot due to diabetes mellitus acute Diabetic infection of left foot acute Gas gangrene of foot acute Osteomyelitis of ankle or foot, left, acute acute Osteomyelitis of ankle, left, acute acute Other acute postprocedural pain acute Type 2 diabetes mellitus with diabetic polyneuropathy acute Hypertension chronic 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 Abscess of bursa, left ankle and foot acute Cellulitis acute Cellulitis of left lower limb acute Charcot foot due to diabetes mellitus acute Diabetic infection of left foot acute Gas gangrene of foot acute Osteomyelitis of ankle or foot, left, acute acute Osteomyelitis of ankle, left, acute acute Other acute postprocedural pain acute Type 2 diabetes mellitus with diabetic polyneuropathy acute Hypertension chronic 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 Abscess of bursa, left ankle and foot acute Cellulitis acute Cellulitis of left lower limb acute Charcot foot due to diabetes mellitus acute Diabetic infection of left foot acute Gas gangrene of foot acute Osteomyelitis of ankle or foot, left, acute acute Osteomyelitis of ankle, left, acute acute Other acute postprocedural pain acute Type 2 diabetes mellitus with diabetic polyneuropathy acute Hypertension chronic 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 [facility] Work Phone: Evaluation note* Diagnosis Onset Date Resolution Status Abscess of bursa, left ankle and foot acute Cellulitis of left lower limb acute Charcot foot due to diabetes mellitus acute Diabetic infection of left foot acute Osteomyelitis of ankle, left, acute acute Type 2 diabetes mellitus with diabetic polyneuropathy acute 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 Abscess of bursa, left ankle and foot acute Cellulitis of left lower limb acute Charcot foot due to diabetes mellitus acute Osteomyelitis of ankle, left, acute acute Type 2 diabetes mellitus with diabetic polyneuropathy acute 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 Abscess of bursa, left ankle and foot acute Cellulitis acute Cellulitis of left lower limb acute Charcot foot due to diabetes mellitus acute Diabetic infection of left foot acute Gas gangrene of foot acute Osteomyelitis of ankle or foot, left, acute acute Osteomyelitis of ankle, left, acute acute Other acute postprocedural pain acute Type 2 diabetes mellitus with diabetic polyneuropathy acute Hypertension chronic 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 Abscess of bursa, left ankle and foot acute Cellulitis acute Cellulitis of left lower limb acute Charcot foot due to diabetes mellitus acute Diabetic infection of left foot acute Gas gangrene of foot acute Osteomyelitis of ankle or foot, left, acute acute Osteomyelitis of ankle, left, acute acute Other acute postprocedural pain acute Type 2 diabetes mellitus with diabetic polyneuropathy acute Hypertension chronic 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 Abscess of bursa, left ankle and foot acute Cellulitis acute Cellulitis of left lower limb acute Charcot foot due to diabetes mellitus acute Diabetic infection of left foot acute Gas gangrene of foot acute Osteomyelitis of ankle or foot, left, acute acute Osteomyelitis of ankle, left, acute acute Other acute postprocedural pain acute Type 2 diabetes mellitus with diabetic polyneuropathy acute Hypertension chronic 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 Abscess of bursa, left ankle and foot acute Cellulitis of left lower limb acute Charcot foot due to diabetes mellitus acute Osteomyelitis of ankle, left, acute acute Type 2 diabetes mellitus with diabetic polyneuropathy acute 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 [facility] Work Phone: Hospital course Narrative No data available for this section [facility] Discharge instructions No data available for this section [facility] Progress note No data available for this section [facility] Progress note Author Jordi Perkins [facility] July 16, 2023 11:31am Note Date/Time July 16, 2023 1 1:31am [facility] Medical Records Department [facility] [place] [address] Progress Note 07/16/23 1128 MR#: [id number] Acct: [id number] Name: SNEHA WEI Jr. Rep #:[id number] : 1980 43 From: Jordi Perkins DPM PCP: Dr. Liliane Epps, DO Status:ADM RADHA Location: [facility]3 [id number] Subjective Subjective Patient 1 day postop left TTC fusion with midfoot osteotomy and percutaneous pinning for Charcot reconstruction. Patient denies constitutional symptoms. Patient denies pain due to diabetic neuropathy. No issues with voiding or and passing gas. Objective Data Objective Data Vital Signs: Vital Signs Temp Pulse Resp BP Pulse Ox O2 Del Method O2 Flow Rate 98.6 F 92 17 86/54 L 94 Room Air 3 07/16/23 10:00 07/16/23 10:00 07/16/23 10:00 07/16/23 10:00 07/16/23 10:00 07/16/23 10:00 07/15/23 17:00 Oxygen Flow Rate (L/min) 3 Oxygen Delivery Method Room Air Weight: 121.5 kg Body Mass Index (BMI) 37.5 Intake & Output: Intake and Output for Last 24 Hours 07/14/23 07/15/23 07/16/23 23:59 23:59 23:59 Intake Total 4050 / 4050 Output Total 475 / 475 Balance 4050 / 3775 -475 / -475 Lab / Micro Data 07/15/23 16:35 Labs: Laboratory Results - last 24 hr 07/15/23 16:35: Hgb 11.5 L, Hct 34.7 L 07/15/23 22:54: POC Glucose 213 H 07/16/23 02:52: POC Glucose 202 H 07/16/23 06:05: POC Glucose 212 H Radiography Diagnostic Testing: Radiology Impression Foot X-Ray 07/15/23 10:52 IMPRESSION: Fluoroscopic guidance for talonavicular fusion. Please refer to operative report for further information. Electronically Signed: Joel Baker MD at 18:02 EST Reading Location ID and State: [facility] / [place] Tel , Service support , Physical Exam Narrative Neurovascular status unchanged Dermatologic medial lateral ankle incisions are well-approximated intact there is a full-thickness wound to medial ankle which was unable to be closed during surgery due to tension from significant deformity correction. Percutaneous pinsintact. Plantar heel incision intact. Posterior Achilles incision intact. Proximal medial tibia incisions intact. No signs DVT bilaterally. Reduction of Charcot deformity left foot status post left TTC fusion with midfoot osteotomy. Assessment & Plan Assessment/Plan (1) Type 2 diabetes mellitus with diabetic polyneuropathy: PLAN: Exam performed Patient will maintain nonweightbearing left lower extremity for approximately 8 weeks Patient will use Lovenox for DVT prophylaxis he already has this at home Patient does not have any pain and will not require any pain medication secondary to diabetic neuropathy Dressing was changed incisional sites were examined and noted to be intact redressed with Betadine Adaptic dry sterile dressing and a well-padded AO splintwas applied to left lower extremity. Patient will discharge today and follow-up in 1 week. (2) Charcot's joint, right ankle and foot: (3) Charcot arthropathy of midfoot: 07/16/23 1131 <Electronically signed by Jordi Perkins DPM> Jordi Perkins DPM Cosigner Signature (if applicable): CC: ~ Signed [facility] Work Phone: Reason for referral (narrative)No reason for referral information available[facility] Work Phone: Chief Complaint and Reason for Visit Chief Complaint PFIZER VACCINE Chief Complaint SEPTIC SHOCK, DEEP W OUND LEFT FOOT 2NDARY TO SEPTIC SHOCK, DEEP WOUND LEFT FOOT 2NDARY TO Reason for Visit Acute hyponatremia Acute kidney injury Dehydration Diabetic infection of left foot Gas gangrene Sepsis 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 Chief Complaint SEPTIC SHOCK, DEEP W OUND LEFT FOOT 2NDARY TO SEPTIC SHOCK, DEEP WOUND LEFT FOOT 2NDARY TO SEPTIC SHOCK, DEEP WOUND LEFT FOOT 2NDARY TO SEPTIC SHOCK, DEEP WOUND LEFT FOOT 2NDARY TO SEPTIC SHOCK, DEEP WOUND LEFT FOOT 2NDARY TO SEPTIC SHOCK, DEEP WOUND LEFT FOOT 2NDARY TO SEPTIC SHOCK, DEEP WOUND LEFT FOOT 2NDARY TO SEPTIC SHOCK, DEEP WOUND LEFT FOOT 2NDARY TO SEPTIC SHOCK, DEEP WOUND LEFT FOOT 2NDARY TO SEPTIC SHOCK, DEEP WOUND LEFT FOOT 2NDARY TO SEPTIC SHOCK, DEEP WOUND LEFT FOOT 2NDARY TO SEPTIC SHOCK, DEEP WOUND LEFT FOOT 2NDARY TO Reason for Visit Acute hyponatremia Acute kidney injury Dehydration Diabetic infection of left foot Gas gangrene Sepsis Septic shock 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 Chief Complaint SEPTIC SHOCK, DEEP W OUND LEFT FOOT 2NDARY TO SEPTIC SHOCK, DEEP WOUND LEFT FOOT 2NDARY TO SEPTIC SHOCK, DEEP WOUND LEFT FOOT 2NDARY TO SEPTIC SHOCK, DEEP WOUND LEFT FOOT 2NDARY TO SEPTIC SHOCK, DEEP WOUND LEFT FOOT 2NDARY TO SEPTIC SHOCK, DEEP WOUND LEFT FOOT 2NDARY TO SEPTIC SHOCK, DEEP WOUND LEFT FOOT 2NDARY TO SEPTIC SHOCK, DEEP WOUND LEFT FOOT 2NDARY TO SEPTIC SHOCK, DEEP WOUND LEFT FOOT 2NDARY TO SEPTIC SHOCK, DEEP WOUND LEFT FOOT 2NDARY TO SEPTIC SHOCK, DEEP WOUND LEFT FOOT 2NDARY TO SEPTIC SHOCK, DEEP WOUND LEFT FOOT 2NDARY TO ACTIVASE/DOUBLE LUMIN M86.9 wound Reason for Visit Diabetic infection o f left foot 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 Acute hyponatremia Acute kidney injury Dehydration Gas gangrene Sepsis Septic shock Cellulitis Charcot arthropathy of midfoot Diabetic infection of left foot Gas gangrene of foot Osteomyelitis Osteomyelitis of ankle or foot, left, acute 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 Chief Complaint SEPTIC SHOCK, DEEP W OUND LEFT FOOT 2NDARY TO SEPTIC SHOCK, DEEP WOUND LEFT FOOT 2NDARY TO SEPTIC SHOCK, DEEP WOUND LEFT FOOT 2NDARY TO SEPTIC SHOCK, DEEP WOUND LEFT FOOT 2NDARY TO SEPTIC SHOCK, DEEP WOUND LEFT FOOT 2NDARY TO SEPTIC SHOCK, DEEP WOUND LEFT FOOT 2NDARY TO SEPTIC SHOCK, DEEP WOUND LEFT FOOT 2NDARY TO SEPTIC SHOCK, DEEP WOUND LEFT FOOT 2NDARY TO SEPTIC SHOCK, DEEP WOUND LEFT FOOT 2NDARY TO SEPTIC SHOCK, DEEP WOUND LEFT FOOT 2NDARY TO SEPTIC SHOCK, DEEP WOUND LEFT FOOT 2NDARY TO SEPTIC SHOCK, DEEP WOUND LEFT FOOT 2NDARY TO ACTIVASE/DOUBLE LUMIN wound M86.9 Reason for Visit Diabetic infection o f left foot 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 Acute hyponatremia Acute kidney injury Dehydration Gas gangrene Sepsis Septic shock Cellulitis Charcot arthropathy of midfoot Diabetic infection of left foot Gas gangrene of foot Osteomyelitis Osteomyelitis of ankle or foot, left, acute 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 Chief Complaint SEPTIC SHOCK, DEEP W OUND LEFT FOOT 2NDARY TO SEPTIC SHOCK, DEEP WOUND LEFT FOOT 2NDARY TO SEPTIC SHOCK, DEEP WOUND LEFT FOOT 2NDARY TO SEPTIC SHOCK, DEEP WOUND LEFT FOOT 2NDARY TO SEPTIC SHOCK, DEEP WOUND LEFT FOOT 2NDARY TO SEPTIC SHOCK, DEEP WOUND LEFT FOOT 2NDARY TO SEPTIC SHOCK, DEEP WOUND LEFT FOOT 2NDARY TO SEPTIC SHOCK, DEEP WOUND LEFT FOOT 2NDARY TO SEPTIC SHOCK, DEEP WOUND LEFT FOOT 2NDARY TO SEPTIC SHOCK, DEEP WOUND LEFT FOOT 2NDARY TO SEPTIC SHOCK, DEEP WOUND LEFT FOOT 2NDARY TO SEPTIC SHOCK, DEEP WOUND LEFT FOOT 2NDARY TO ACTIVASE/DOUBLE LUMIN wound M86.9 wound L FOOT OSTEOMYELLTIS Reason for Visit Diabetic infection o f left foot 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 Acute hyponatremia Acute kidney injury Dehydration Gas gangrene Sepsis Septic shock Cellulitis Charcot arthropathy of midfoot Diabetic infection of left foot Gas gangrene of foot Osteomyelitis Osteomyelitis of ankle or foot, left, acute 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 Charcot arthropathy of midfoot Gas gangrene of foot Osteomyelitis of ankle or foot, left, acute 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 Chief Complaint SEPTIC SHOCK, DEEP W OUND LEFT FOOT 2NDARY TO SEPTIC SHOCK, DEEP WOUND LEFT FOOT 2NDARY TO SEPTIC SHOCK, DEEP WOUND LEFT FOOT 2NDARY TO SEPTIC SHOCK, DEEP WOUND LEFT FOOT 2NDARY TO SEPTIC SHOCK, DEEP WOUND LEFT FOOT 2NDARY TO SEPTIC SHOCK, DEEP WOUND LEFT FOOT 2NDARY TO SEPTIC SHOCK, DEEP WOUND LEFT FOOT 2NDARY TO SEPTIC SHOCK, DEEP WOUND LEFT FOOT 2NDARY TO SEPTIC SHOCK, DEEP WOUND LEFT FOOT 2NDARY TO SEPTIC SHOCK, DEEP WOUND LEFT FOOT 2NDARY TO SEPTIC SHOCK, DEEP WOUND LEFT FOOT 2NDARY TO SEPTIC SHOCK, DEEP WOUND LEFT FOOT 2NDARY TO ACTIVASE/DOUBLE LUMIN wound M86.9 L FOOT OSTEOMYELLTIS wound ACTIVASE FOR DOUBLE LULMEN PICC Reason for Visit Diabetic infection o f left foot 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 Acute hyponatremia Acute kidney injury Dehydration Gas gangrene Sepsis Septic shock Cellulitis Charcot arthropathy of midfoot Diabetic infection of left foot Gas gangrene of foot Osteomyelitis Osteomyelitis of ankle or foot, left, acute 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 Charcot arthropathy of midfoot Gas gangrene of foot Osteomyelitis of ankle or foot, left, acute 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 Chief Complaint SEPTIC SHOCK, DEEP W OUND LEFT FOOT 2NDARY TO SEPTIC SHOCK, DEEP WOUND LEFT FOOT 2NDARY TO SEPTIC SHOCK, DEEP WOUND LEFT FOOT 2NDARY TO SEPTIC SHOCK, DEEP WOUND LEFT FOOT 2NDARY TO SEPTIC SHOCK, DEEP WOUND LEFT FOOT 2NDARY TO SEPTIC SHOCK, DEEP WOUND LEFT FOOT 2NDARY TO SEPTIC SHOCK, DEEP WOUND LEFT FOOT 2NDARY TO SEPTIC SHOCK, DEEP WOUND LEFT FOOT 2NDARY TO SEPTIC SHOCK, DEEP WOUND LEFT FOOT 2NDARY TO SEPTIC SHOCK, DEEP WOUND LEFT FOOT 2NDARY TO SEPTIC SHOCK, DEEP WOUND LEFT FOOT 2NDARY TO SEPTIC SHOCK, DEEP WOUND LEFT FOOT 2NDARY TO ACTIVASE/DOUBLE LUMIN wound M86.9 L FOOT OSTEOMYELLTIS ACTIVASE FOR DOUBLE LULMEN PICC M86.9 wound Reason for Visit Diabetic infection o f left foot 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 Acute hyponatremia Acute kidney injury Dehydration Gas gangrene Sepsis Septic shock Cellulitis Charcot arthropathy of midfoot Diabetic infection of left foot Gas gangrene of foot Osteomyelitis Osteomyelitis of ankle or foot, left, acute 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 Charcot arthropathy of midfoot Gas gangrene of foot Osteomyelitis of ankle or foot, left, acute 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 Chief Complaint SEPTIC SHOCK, DEEP W OUND LEFT FOOT 2NDARY TO SEPTIC SHOCK, DEEP WOUND LEFT FOOT 2NDARY TO SEPTIC SHOCK, DEEP WOUND LEFT FOOT 2NDARY TO SEPTIC SHOCK, DEEP WOUND LEFT FOOT 2NDARY TO SEPTIC SHOCK, DEEP WOUND LEFT FOOT 2NDARY TO SEPTIC SHOCK, DEEP WOUND LEFT FOOT 2NDARY TO SEPTIC SHOCK, DEEP WOUND LEFT FOOT 2NDARY TO SEPTIC SHOCK, DEEP WOUND LEFT FOOT 2NDARY TO SEPTIC SHOCK, DEEP WOUND LEFT FOOT 2NDARY TO SEPTIC SHOCK, DEEP WOUND LEFT FOOT 2NDARY TO SEPTIC SHOCK, DEEP WOUND LEFT FOOT 2NDARY TO SEPTIC SHOCK, DEEP WOUND LEFT FOOT 2NDARY TO ACTIVASE/DOUBLE LUMIN wound M86.9 L FOOT OSTEOMYELLTIS ACTIVASE FOR DOUBLE LULMEN PICC M86.9 wound wound Reason for Visit Diabetic infection o f left foot 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 Acute hyponatremia Acute kidney injury Dehydration Gas gangrene Sepsis Septic shock Cellulitis Charcot arthropathy of midfoot Diabetic infection of left foot Gas gangrene of foot Osteomyelitis Osteomyelitis of ankle or foot, left, acute 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 Charcot arthropathy of midfoot Gas gangrene of foot Osteomyelitis of ankle or foot, left, acute 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 Chief Complaint L FOOT OSTEOMYELLTIS ACTIVASE FOR DOUBLE LULMEN PICC M86.9 wound wound wound wound wound Reason for Visit Charcot arthropathy of midfoot Gas gangrene of foot Osteomyelitis of ankle or foot, left, acute 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 Charcot arthropathy of midfoot Osteomyelitis of ankle or foot, left, acute 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 Charcot arthropathy of midfoot Osteomyelitis of ankle or foot, left, acute 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 Chief Complaint wound wound wound wound wound wound wound Reason for Visit Charcot arthropathy of midfoot Gas gangrene of foot Osteomyelitis of ankle or foot, left, acute 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 Charcot arthropathy of midfoot Osteomyelitis of ankle or foot, left, acute 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 Charcot arthropathy of midfoot Osteomyelitis of ankle or foot, left, acute 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 Charcot arthropathy of midfoot Osteomyelitis of ankle or foot, left, acute 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 Chief Complaint wound wound wound wound wound I73.9 Reason for Visit Charcot arthropathy of midfoot Osteomyelitis of ankle or foot, left, acute 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 Charcot arthropathy of midfoot Osteomyelitis of ankle or foot, left, acute 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 Charcot arthropathy of midfoot Osteomyelitis of ankle or foot, left, acute 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 Non-pressure chronic ulcer of right 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 Chief Complaint wound wound wound wound I73.9 Reason for Visit Charcot arthropathy of midfoot Osteomyelitis of ankle or foot, left, acute 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 Charcot arthropathy of midfoot Osteomyelitis of ankle or foot, left, acute 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 Non-pressure chronic ulcer of right 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 Chief Complaint wound wound wound wound I73.9 I73.9 Reason for Visit Charcot arthropathy of midfoot Osteomyelitis of ankle or foot, left, acute 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 Charcot arthropathy of midfoot Osteomyelitis of ankle or foot, left, acute 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 Non-pressure chronic ulcer of right 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 Chief Complaint I73.9 I73.9 Reason for Visit Type 2 diabetes aaron itus with diabetic polyneuropathy Non-pressure chronic ulcer of right 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 Chief Complaint I73.9 I73.9 rt tibiotalo calcaneal arthrodesis rt tibiotalo calcaneal arthrodesis Reason for Visit Type 2 diabetes aaron itus with diabetic polyneuropathy Non-pressure chronic ulcer of right 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 Acquired varus deformity of right ankle Charcot's joint, right ankle and foot Type 2 diabetes mellitus with diabetic polyneuropathy Chief Complaint rt tibiotalo calcane al arthrodesis rt tibiotalo calcaneal arthrodesis BILAT LOWER EXT Reason for Visit Charcot's joint, rig ht ankle and foot Type 2 diabetes mellitus with diabetic polyneuropathy Acquired varus deformity of right ankle Chief Complaint BILAT LOWER EXT CHARCOTS JOINT RT ANKLE AND FOOT/RX HERE Chief Complaint Left foot & ankle ch arcot reconstru Left foot & ankle charcot reconstru Left foot & ankle charcot reconstru Reason for Visit Charcot arthropathy of midfoot Charcot's joint, right ankle and foot Osteomyelitis Type 2 diabetes mellitus with diabetic polyneuropathy Non-pressure chronic ulcer of right 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 Chief Complaint Left foot & ankle ch arcot reconstru Left foot & ankle charcot reconstru Left foot & ankle charcot reconstru wound DIABETIC FOOT ABSCESS AND CELLULITIS DIABETIC FOOT ABSCESS AND CELLULITIS DIABETIC FOOT ABSCESS AND CELLULITIS DIABETIC FOOT ABSCESS AND CELLULITIS DIABETIC FOOT ABSCESS AND CELLULITIS DIABETIC FOOT ABSCESS AND CELLULITIS DIABETIC FOOT ABSCESS AND CELLULITIS DIABETIC FOOT ABSCESS AND CELLULITIS Reason for Visit Type 2 diabetes aaron itus with diabetic polyneuropathy Charcot arthropathy of midfoot Charcot's joint, right ankle and foot Non-pressure chronic ulcer of right 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 Osteomyelitis Abscess of bursa, left ankle and foot Cellulitis of left lower limb 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 Abscess of bursa, left ankle and foot Cellulitis of left lower limb Charcot foot due to diabetes mellitus Diabetic infection of left foot Osteomyelitis of ankle, left, acute 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 Chief Complaint Left foot & ankle ch arcot reconstru Left foot & ankle charcot reconstru Left foot & ankle charcot reconstru DIABETIC FOOT ABSCESS AND CELLULITIS DIABETIC FOOT ABSCESS AND CELLULITIS DIABETIC FOOT ABSCESS AND CELLULITIS DIABETIC FOOT ABSCESS AND CELLULITIS DIABETIC FOOT ABSCESS AND CELLULITIS DIABETIC FOOT ABSCESS AND CELLULITIS DIABETIC FOOT ABSCESS AND CELLULITIS DIABETIC FOOT ABSCESS AND CELLULITIS EKG Reason for Visit Type 2 diabetes aaron itus with diabetic polyneuropathy Charcot arthropathy of midfoot Charcot's joint, right ankle and foot Non-pressure chronic ulcer of right 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 Osteomyelitis Abscess of bursa, left ankle and foot Cellulitis of left lower limb Charcot foot due to diabetes mellitus Diabetic infection of left foot Osteomyelitis of ankle, left, acute 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 Abscess of bursa, left ankle and foot Cellulitis of left lower limb Charcot foot due to diabetes mellitus Osteomyelitis of ankle, left, acute 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 Chief Complaint Left foot & ankle ch arcot reconstru Left foot & ankle charcot reconstru Left foot & ankle charcot reconstru DIABETIC FOOT ABSCESS AND CELLULITIS DIABETIC FOOT ABSCESS AND CELLULITIS DIABETIC FOOT ABSCESS AND CELLULITIS DIABETIC FOOT ABSCESS AND CELLULITIS DIABETIC FOOT ABSCESS AND CELLULITIS DIABETIC FOOT ABSCESS AND CELLULITIS DIABETIC FOOT ABSCESS AND CELLULITIS DIABETIC FOOT ABSCESS AND CELLULITIS EKG PRE-HYPERBARIC TX MEROPENEM 1 GRAM RECON SOLN FOOT OSTEO LOWER EXT ART EXAM LOWER EXT ART EXAM FOOT OSTEO LOWER EXT ART EXAM LOWER EXT ART EXAM LOWER EXT ART EXAM LOWER EXT ART EXAM LOWER EXT ART EXAM FOOT OSTEO LOWER EXT ART EXAM LOWER EXT ART EXAM Reason for Visit Type 2 diabetes aaron itus with diabetic polyneuropathy Charcot arthropathy of midfoot Charcot's joint, right ankle and foot Non-pressure chronic ulcer of right 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 Osteomyelitis Abscess of bursa, left ankle and foot Cellulitis of left lower limb Charcot foot due to diabetes mellitus Diabetic infection of left foot Osteomyelitis of ankle, left, acute 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 Abscess of bursa, left ankle and foot Cellulitis of left lower limb Charcot foot due to diabetes mellitus Osteomyelitis of ankle, left, acute 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 Abscess of bursa, left ankle and foot Cellulitis Cellulitis of left lower limb Charcot foot due to diabetes mellitus Diabetic infection of left foot Gas gangrene of foot Osteomyelitis of ankle or foot, left, acute Osteomyelitis of ankle, left, acute Other acute postprocedural pain Type 2 diabetes mellitus with diabetic polyneuropathy Hypertension 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 Abscess of bursa, left ankle and foot Cellulitis Cellulitis of left lower limb Charcot foot due to diabetes mellitus Diabetic infection of left foot Gas gangrene of foot Osteomyelitis of ankle or foot, left, acute Osteomyelitis of ankle, left, acute Other acute postprocedural pain Type 2 diabetes mellitus with diabetic polyneuropathy Hypertension 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 Chief Complaint Left foot & ankle ch arcot reconstru Left foot & ankle charcot reconstru Left foot & ankle charcot reconstru DIABETIC FOOT ABSCESS AND CELLULITIS DIABETIC FOOT ABSCESS AND CELLULITIS DIABETIC FOOT ABSCESS AND CELLULITIS DIABETIC FOOT ABSCESS AND CELLULITIS DIABETIC FOOT ABSCESS AND CELLULITIS DIABETIC FOOT ABSCESS AND CELLULITIS DIABETIC FOOT ABSCESS AND CELLULITIS DIABETIC FOOT ABSCESS AND CELLULITIS EKG PRE-HYPERBARIC TX MEROPENEM 1 GRAM RECON SOLN FOOT OSTEO LOWER EXT ART EXAM LOWER EXT ART EXAM FOOT OSTEO LOWER EXT ART EXAM LOWER EXT ART EXAM LOWER EXT ART EXAM LOWER EXT ART EXAM LOWER EXT ART EXAM FOOT OSTEO LOWER EXT ART EXAM LOWER EXT ART EXAM LOWER EXT ART EXAM LOWER EXT ART EXAM LOWER EXT ART EXAM LOWER EXT ART EXAM LOWER EXT ART EXAM LOWER EXT ART EXAM LOWER EXT ART EXAM LOWER EXT ART EXAM LOWER EXT ART EXAM LOWER EXT ART EXAM LOWER EXT ART EXAM LOWER EXT ART EXAM LOWER EXT ART EXAM LOWER EXT ART EXAM LOWER EXT ART EXAM Reason for Visit Type 2 diabetes aaron itus with diabetic polyneuropathy Charcot arthropathy of midfoot Charcot's joint, right ankle and foot Non-pressure chronic ulcer of right 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 Osteomyelitis Abscess of bursa, left ankle and foot Cellulitis of left lower limb Charcot foot due to diabetes mellitus Diabetic infection of left foot Osteomyelitis of ankle, left, acute 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 Abscess of bursa, left ankle and foot Cellulitis of left lower limb Charcot foot due to diabetes mellitus Osteomyelitis of ankle, left, acute 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 Abscess of bursa, left ankle and foot Cellulitis Cellulitis of left lower limb Charcot foot due to diabetes mellitus Diabetic infection of left foot Gas gangrene of foot Osteomyelitis of ankle or foot, left, acute Osteomyelitis of ankle, left, acute Other acute postprocedural pain Type 2 diabetes mellitus with diabetic polyneuropathy Hypertension 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 Abscess of bursa, left ankle and foot Cellulitis Cellulitis of left lower limb Charcot foot due to diabetes mellitus Diabetic infection of left foot Gas gangrene of foot Osteomyelitis of ankle or foot, left, acute Osteomyelitis of ankle, left, acute Other acute postprocedural pain Type 2 diabetes mellitus with diabetic polyneuropathy Hypertension 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 Abscess of bursa, left ankle and foot Cellulitis Cellulitis of left lower limb Charcot foot due to diabetes mellitus Diabetic infection of left foot Gas gangrene of foot Osteomyelitis of ankle or foot, left, acute Osteomyelitis of ankle, left, acute Other acute postprocedural pain Type 2 diabetes mellitus with diabetic polyneuropathy Hypertension 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 Chief Complaint DIABETIC FOOT ABSCES S AND CELLULITIS DIABETIC FOOT ABSCESS AND CELLULITIS DIABETIC FOOT ABSCESS AND CELLULITIS DIABETIC FOOT ABSCESS AND CELLULITIS DIABETIC FOOT ABSCESS AND CELLULITIS DIABETIC FOOT ABSCESS AND CELLULITIS DIABETIC FOOT ABSCESS AND CELLULITIS DIABETIC FOOT ABSCESS AND CELLULITIS EKG PRE-HYPERBARIC TX MEROPENEM 1 GRAM RECON SOLN FOOT OSTEO LOWER EXT ART EXAM LOWER EXT ART EXAM FOOT OSTEO LOWER EXT ART EXAM LOWER EXT ART EXAM LOWER EXT ART EXAM LOWER EXT ART EXAM LOWER EXT ART EXAM FOOT OSTEO LOWER EXT ART EXAM LOWER EXT ART EXAM LOWER EXT ART EXAM LOWER EXT ART EXAM LOWER EXT ART EXAM LOWER EXT ART EXAM LOWER EXT ART EXAM LOWER EXT ART EXAM LOWER EXT ART EXAM LOWER EXT ART EXAM LOWER EXT ART EXAM LOWER EXT ART EXAM LOWER EXT ART EXAM LOWER EXT ART EXAM LOWER EXT ART EXAM LOWER EXT ART EXAM LOWER EXT ART EXAM LOWER EXT ART EXAM Osteomyelitis, unspecified Reason for Visit Abscess of bursa, le ft ankle and foot Cellulitis of left lower limb Charcot foot due to diabetes mellitus Diabetic infection of left foot Osteomyelitis of ankle, left, acute 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 Abscess of bursa, left ankle and foot Cellulitis of left lower limb Charcot foot due to diabetes mellitus Osteomyelitis of ankle, left, acute 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 Abscess of bursa, left ankle and foot Cellulitis Cellulitis of left lower limb Charcot foot due to diabetes mellitus Diabetic infection of left foot Gas gangrene of foot Osteomyelitis of ankle or foot, left, acute Osteomyelitis of ankle, left, acute Other acute postprocedural pain Type 2 diabetes mellitus with diabetic polyneuropathy Hypertension 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 Abscess of bursa, left ankle and foot Cellulitis Cellulitis of left lower limb Charcot foot due to diabetes mellitus Diabetic infection of left foot Gas gangrene of foot Osteomyelitis of ankle or foot, left, acute Osteomyelitis of ankle, left, acute Other acute postprocedural pain Type 2 diabetes mellitus with diabetic polyneuropathy Hypertension 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 Abscess of bursa, left ankle and foot Cellulitis Cellulitis of left lower limb Charcot foot due to diabetes mellitus Diabetic infection of left foot Gas gangrene of foot Osteomyelitis of ankle or foot, left, acute Osteomyelitis of ankle, left, acute Other acute postprocedural pain Type 2 diabetes mellitus with diabetic polyneuropathy Hypertension 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 Abscess of bursa, left ankle and foot Cellulitis of left lower limb Charcot foot due to diabetes mellitus Osteomyelitis of ankle, left, acute 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 Chief Complaint DIABETIC FOOT ABSCES S AND CELLULITIS DIABETIC FOOT ABSCESS AND CELLULITIS DIABETIC FOOT ABSCESS AND CELLULITIS DIABETIC FOOT ABSCESS AND CELLULITIS DIABETIC FOOT ABSCESS AND CELLULITIS DIABETIC FOOT ABSCESS AND CELLULITIS DIABETIC FOOT ABSCESS AND CELLULITIS DIABETIC FOOT ABSCESS AND CELLULITIS EKG PRE-HYPERBARIC TX MEROPENEM 1 GRAM RECON SOLN FOOT OSTEO LOWER EXT ART EXAM LOWER EXT ART EXAM FOOT OSTEO LOWER EXT ART EXAM LOWER EXT ART EXAM LOWER EXT ART EXAM LOWER EXT ART EXAM LOWER EXT ART EXAM FOOT OSTEO LOWER EXT ART EXAM LOWER EXT ART EXAM LOWER EXT ART EXAM LOWER EXT ART EXAM LOWER EXT ART EXAM LOWER EXT ART EXAM LOWER EXT ART EXAM LOWER EXT ART EXAM LOWER EXT ART EXAM LOWER EXT ART EXAM LOWER EXT ART EXAM LOWER EXT ART EXAM LOWER EXT ART EXAM LOWER EXT ART EXAM LOWER EXT ART EXAM LOWER EXT ART EXAM LOWER EXT ART EXAM Osteomyelitis, unspecified LOWER EXT ART EXAM Reason for Visit Abscess of bursa, le ft ankle and foot Cellulitis of left lower limb Charcot foot due to diabetes mellitus Diabetic infection of left foot Osteomyelitis of ankle, left, acute 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 Abscess of bursa, left ankle and foot Cellulitis of left lower limb Charcot foot due to diabetes mellitus Osteomyelitis of ankle, left, acute 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 Abscess of bursa, left ankle and foot Cellulitis Cellulitis of left lower limb Charcot foot due to diabetes mellitus Diabetic infection of left foot Gas gangrene of foot Osteomyelitis of ankle or foot, left, acute Osteomyelitis of ankle, left, acute Other acute postprocedural pain Type 2 diabetes mellitus with diabetic polyneuropathy Hypertension 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 Abscess of bursa, left ankle and foot Cellulitis Cellulitis of left lower limb Charcot foot due to diabetes mellitus Diabetic infection of left foot Gas gangrene of foot Osteomyelitis of ankle or foot, left, acute Osteomyelitis of ankle, left, acute Other acute postprocedural pain Type 2 diabetes mellitus with diabetic polyneuropathy Hypertension 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 Abscess of bursa, left ankle and foot Cellulitis Cellulitis of left lower limb Charcot foot due to diabetes mellitus Diabetic infection of left foot Gas gangrene of foot Osteomyelitis of ankle or foot, left, acute Osteomyelitis of ankle, left, acute Other acute postprocedural pain Type 2 diabetes mellitus with diabetic polyneuropathy Hypertension 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 Abscess of bursa, left ankle and foot Cellulitis of left lower limb Charcot foot due to diabetes mellitus Osteomyelitis of ankle, left, acute 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 Chief Complaint Admit Date LABS January 17, 2025 4:26 pm Advance Directives No Advanced Directives Records Found Advance Directive Response Recorded Date/ Time Living Will No November 14, 2021 2:53pm Power of Video Library Assistant No November 14 2:53pm Advance Directive Response Recorded Date/ Time Living Will No November 14, 2021 9:05pm Power of Video Library Assistant No November 14 9:05pm Advance Directive Response Recorded Date/ Time Living Will No November 14, 2021 8:05pm Power of Video Library Assistant No November 14 8:05pm Advance Directive Response Recorded Date/ Time Living Will No September 17, 2 023 2:09pm Power of Video Library Assistant No September 17, 2022 2:09pm Advance Directive Response Recorded Date/ Time Living Will No September 17, 2 023 3:09pm Power of Video Library Assistant No September 17, 2022 3:09pm Advance Directive Response Recorded Date/ Time Living Will No July 15 6:20pm Power of Video Library Assistant No July 15, 2023 6:20pm Advance Directive Response Recorded Date/ Time Living Will No August 30 1:57pm Power of Video Library Assistant No August 30, 2023 1:57pm Advance Directive Response Recorded Date/ Time Living Will No August 30 2:57pm Power of Video Library Assistant No August 30, 2023 2:57pm Summary Purpose Family History No Family History Records Found Additional Source Comments Goals (unrecognized section and content) Goals may be documented in a n alternate sectionGoals may be documented in an alternate sectionGoals may be documented in an alternate sectionGoals may be documented in an alternate sectionGoals may be documented in an alternate sectionGoals may be documented in an alternate sectionGoals may be documented in an alternate sectionGoals may be documented in an alternate sectionGoals may be documented in an alternate section No data available for this section No data available for this section No data available for this sectionGoals may be documented in an alternate sectionGoals may be documented in an alternate sectionGoals may be documented in an alternate sectionGoals may be documented in an alternate sectionGoals may be documented in an alternate sectionGoals may be documented in an alternate sectionGoals may be documented in an alternate sectionGoals may be documented in an alternate sectionGoals may be documented in an alternate section No data available for this section No data available for this sectionGoals may be documented in an alternate section Care Team (unrecognized sect ion and content) Team Status: Active Member Role Status Dates Dr. Liliane Epps DO Primary Care Provider Active Team Status: Inactive Member Role Status Dates Dr. Liliane Epps DO Primary Care Provider Active Start: January 17, 2025 End: January 17, 2025 Dr. Jordi Perkins DPM Attending Provider Active Start: January 17, 2025 End: January 17, 2025 Dr. Jordi Perkins DPM Referring Provider Active Start: January 17, 2025 End: January 17, 2025 Team Status: Active Member Role Status Dates Dr. Liliane Epps DO Primary Care Provider Active Dr. Jordi Perkins DPM Admit Provider, Other Provide r Active Dr. Joy Horn MD Other Provider Active Dr. Cameron Julien , DO Other Provider Active Dr. Yuliya Reed MD Other Provider Active Dr. Isamar Lester MD Other Provider Active Rowena Pandey PHYSICAL GEOGRAPHER, PHYSICAL GEOGRAPHER-C Other Provider Active Alexandra Guzman PHYSICAL GEOGRAPHER-C Other Provider Active Luke [address] PHYSICAL GEOGRAPHER, PHYSICAL GEOGRAPHER-C Other Provider Active Elvin Adams PA, PA Other Provider Active Liliana Lo , PA Other Provider Active Lilianajose angel Barrett , PA Other Provider Active Dr. Markel Miranda MD Attending Provider Active Team Status: Active Member Role Status Dates Dr. Liliane Epps , Primary Care Provider Active Dr. Jordi Perkins DPM Admit Provider, Other Provide r Active Dr. Joy Horn MD Other Provider Active Dr. Cameron Julien , DO Other Provider Active Dr. Yuliya Reed MD Other Provider Active Dr. Isamar Lester MD Other Provider Active Rowena Pandey PHYSICAL GEOGRAPHER, PHYSICAL GEOGRAPHER-C Other Provider Active Alexandra Guzman PHYSICAL GEOGRAPHER-C Other Provider Active Luke [address] PHYSICAL GEOGRAPHER, PHYSICAL GEOGRAPHER-C Other Provider Active Elvin Adams PA, PA Other Provider Active Liliana Lo , PA Other Provider Active Liliana McGoron , PA Other Provider Active Dr. Wojciech Bowman MD Attending Provider, Other Provid er Active Team Status: Inactive Member Role Status Dates Dr. Liliane Epps DO Primary Care Provider Active Dr. Radha Dias MD Attending Provider Active Team Status: Inactive Member Role Status Dates Dr. Liliane Epps DO Primary Care Provider Active Dr. Jordi Perkins DPM Admit Provider, Other Provide r Active Dr. Wojciech Bowman MD Attending Provider, Other Provid er Active Team Status: Inactive Member Role Status Dates Dr. Liliane Epps DO Primary Care Provider Active Dr. Jordi Perkins DPM Attending Provider Active Team Status: Inactive Member Role Status Dates Dr. Liliane Epps , DO Primary Care Provider Active Dr. Jordi Perkins DPM Attending Provider, Referring Provider Active Team Status: Active Member Role Status Dates Dr. Liliane Epps , DO Primary Care Provider Active Dr. Jordi Perkins , [place] Admit Provider, Referring Provider, Other Provider Active Marely Arriaga Other Provider Active Dr. Joy Horn MD Other Provider Active Dr. Cameron Julien , DO Other Provider Active Dr. Yuliya Reed MD Other Provider Active Dr. Isamar Lester MD Other Provider Active Rowena Pandey PHYSICAL GEOGRAPHER, PHYSICAL GEOGRAPHER-C Other Provider Active Luke Street PHYSICAL GEOGRAPHER, PHYSICAL GEOGRAPHER-C Other Provider Active Liliana Arnold , PA Other Provider Active Dr. Alma Saba MD Attending Provider Active Team Status: Inactive Member Role Status Dates Dr. Liliane Epps , DO Primary Care Provider Active Dr. Jordi Perkins DPM Admit Provider, Attending Provider, Referring Provider Active Marely Arriaga Other Provider Active Dr. Joy Horn MD Other Provider Active Dr. Cameron Julien , DO Other Provider Active Dr. Yuliya Reed MD Other Provider Active Dr. Isamar Lester MD Other Provider Active Rowena Pandey PHYSICAL GEOGRAPHER, PHYSICAL GEOGRAPHER-C Other Provider Active Luke Street PHYSICAL GEOGRAPHER, PHYSICAL GEOGRAPHER-C Other Provider Active Liliana Arnold , PA Other Provider Active Dr. Luke Garnett , DO Other Provider Active Team Status: Active Member Role Status Dates Dr. Liliane Epps , DO Primary Care Provider Active Dr. Jordi Perkins DPM Admit Provider, Referring Provider, Other Provider Active Dr. Joy Horn MD Other Provider Active Dr. Cameron Julien , DO Other Provider Active Dr. Yuliya Reed MD Other Provider Active Dr. Isamar Lester MD Other Provider Active Rowena Pandey PHYSICAL GEOGRAPHER, PHYSICAL GEOGRAPHER-C Other Provider Active Alexandra Guzman PHYSICAL GEOGRAPHER-C Other Provider Active [address] PHYSICAL GEOGRAPHER, PHYSICAL GEOGRAPHER-C Other Provider Active Elvin Adams PA, PA Other Provider Active Liliana Lo , PA Other Provider Active Liliana McGoron , PA Other Provider Active Dr. Markel Miranda MD Attending Provider Active Team Status: Active Member Role Status Dates Dr. Liliane Epps , DO Primary Care Provider Active Dr. Jordi Talley , DO Emergency Provider Active Dr. Angélica Escalante MD Admit Provider, Attending Provider, Other Provider Active Team Status: Active Member Role Status Dates Dr. Liliane Epps , DO Primary Care Provider Active Dr. Jordi Talley , DO Emergency Provider Active Dr. Angélica Escalante MD Admit Provider, Attending Provider, Other Provider Active Dr. Jordi Perkins DPM Other Provider Active Dr. Yoan Vee MD Other Provider Active Team Status: Active Member Role Status Dates Dr. Liliane Epps , DO Primary Care Provider Active Dr. Jordi Talley , DO Emergency Provider Active Dr. Angélica Escalante MD Admit Provider, Other Provider Active Dr. Jordi Perkins DPM Other Provider Active Dr. Yoan Vee MD Other Provider Active Cary Mcelroy NP-C Attending Provider Active Team Status: Active Member Role Status Dates Dr. Liliane Epps , DO Primary Care Provider Active Dr. Jordi Talley , DO Emergency Provider Active Dr. Angélica Escalante MD Admit Provider, Other Provider Active Dr. Jordi Perkins DPM Other Provider Active Dr. Yoan Vee MD Other Provider Active Dr. Terry Rice MD Attending Provider, Other Provider Active Team Status: Active Member Role Status Dates Dr. Liliane Epps , DO Primary Care Provider Active Dr. Jordi Perkins DPM Attending Provider, Referring Provider Active Team Status: Inactive Member Role Status Dates Dr. Liliane Epps , DO Primary Care Provider Active Dr. Jordi Talley , DO Emergency Provider Active Dr. Angélica Escalante MD Admit Provider, Other Provider Active Dr. Jordi Perkins DPM Other Provider Active Dr. Yoan Vee MD Other Provider Active Dr. Terry Rice MD Attending Provider Active Team Status: Active Member Role Status Dates Dr. Liliane Epps , DO Primary Care Provider Active Dr. Liliane Lim MD Attending Provider Active Dr. Jordi Perkins DPM Referring Provider Active Team Status: Active Member Role Status Dates Dr. Liliane Epps , DO Primary Care Provider Active Dr. Jordi Perkins DPM Referring Provider, Other Pro vider Active [place] NP, PHYSICAL GEOGRAPHER-C Attending Provider Active Team Status: Active Member Role Status Dates Dr. Liliane Epps , DO Primary Care Provider Active Dr. Jordi Gregorio , DPM Other Provider Active Dr. Barbara Ray MD Referring Provider, Other Provi hiram Active [place] PHYSICAL GEOGRAPHER, PHYSICAL GEOGRAPHER-C Attending Provider Active Team Status: Active Member Role Status Dates Dr. Liliane Epps DO Primary Care Provider Active Dr. Yoan Vee MD Referring Provider, Other Pr ovider Active [place] PHYSICAL GEOGRAPHER, PHYSICAL GEOGRAPHER-C Attending Provider Active Team Status: Inactive Member Role Status Dates Dr. Liliane Epps DO Primary Care Provider Active Dr. Yoan Vee MD Attending Provider, Referrin g Provider Active Team Status: Active Member Role Status Dates Dr. Liliane Epps DO Primary Care Provider Active MASON ZimmerM Other Provider Active Dr. Barbara Ray MD Attending Provider, Referring P rovider Active Team Status: Active Member Role Status Dates Dr. Liliane Epps DO Primary Care Provider Active Dr. Yoan Vee MD Attending Provider, Referrin g Provider Active Team Status: Inactive Member Role Status Dates Dr. Liliane Epps DO Primary Care Provider Active Dr. Jordi Perkins DPM Other Provider Active Dr. Barbara Ray MD Attending Provider, Referring P rovider Active Team Status: Active Member Role Status Dates Dr. Liliane Epps DO Primary Care Provider Active Dr. Jordi Perkins DPM Other Provider Active Dr. Barbara Ray MD Referring Provider Active [place] PHYSICAL GEOGRAPHER, PHYSICAL GEOGRAPHER-C Attending Provider Active Team Status: Active Member Role Status Dates Dr. Liliane Epps DO Primary Care Provider Active Dr. Jordi Perkins DPM Other Provider Active June Senior PHYSICAL GEOGRAPHER, PHYSICAL GEOGRAPHER-C Attending Provider, Referri ng Provider Active Team Status: Inactive Member Role Status Dates Dr. Liliane Epps DO Primary Care Provider Active Dr. Jordi Perkins DPM Attending Provider, Other Pro vider Active Dr. Barbara Ray MD Referring Provider Active Team Status: Active Member Role Status Dates Dr. Liliane Epps DO Primary Care Provider Active Dr. Jordi Perkins DPM Attending Provider, Other Pro vider Active Dr. Barbara Ray MD Referring Provider Active Care Team (unrecognized sect ion and content) Care Team Personnel Name: LILIANE EPPS DO Position: P4 Physician - Primary Care Med Service: Active Provider Member Role: Primary Care Physician Address: Address: [address] [place] [id number] Care Team Related Persons Name: CAREY WHITE (unrecognized sect ion and content) No Status Records FoundNo Status Records FoundNo Status Records Found INFORMATION SOURCE (unrecogn ized section and content) DATE CREATED AUTHOR 07/17/2023 [facility] ([place] DATE CREATED AUTHOR AUTHOR'S ORGANIZ ATION 10/23/2024 [facility] DATE CREATED AUTHOR AUTHOR'S ORGANIZ ATION 02/02/2025 [facility] FOR RECORDS PERTAINING TO PATIENTS WHO ARE OR HAVE BEEN ENROLLED IN A CHEMICAL DEPENDENCY/SUBSTANCEABUSE PROGRAM, SOME INFORMATION MAY BE OMITTED. This clinical summary was aggregated from multiple sources. Caution should be exercised in using it in the provision of clinical care. This summary normalizes information from multiple sources, and as a consequence, information in this document may materially change the coding, format and clinical context of patient data. In addition, data may be omitted in some cases. CLINICAL DECISIONS SHOULD BE BASED ON THE PRIMARY CLINICAL RECORDS. [employer] provides no warranty or guarantee of the accuracy or completeness of information in this document.
--- NOTE | 2025-02-04 06:38 | OP.PCM_ITS ---
Problems Associated Problem List Diagnoses (1) Charcot's joint, left ankle and foot: (2) Acute painful diabetic polyneuropathy: (3) Non-pressure chronic ulcer of left ankle with necrosis of muscle: (4) Pain due to internal orthopedic prosthetic devices, implants and grafts, initial encounter: Operative Report (Standard) Operative Information Date of Procedure: 02/04/25 Pre-Operative Diagnosis: 1. Charcot deformity, left foot and ankle 2. Diabetes type 2 peripheral neuropathy 3. Presence of full-thickness wound with exposed muscle, left lower extremity 4. Painful retained hardware, left lower extremity Post-Operative Diagnosis: 1. Charcot deformity, left foot and ankle 2. Diabetes type 2 peripheral neuropathy 3. Presence of full-thickness wound with exposed muscle, left lower extremity 4. Painful retained hardware, left lower extremity Surgery/Procedure Performed: Procedure #1: Bone marrow aspirate harvest concentrate, left lower extremity Procedure #2: Deep hard removal, left lower extremity Procedure #3: Tibiocalcaneal arthrodesis, left lower extremity Procedure #4: Osteotomy of mid tarsal bones, left lower extremity material reprocessing associate: Yes Car Rental Clerk: Jordi Perkins Tasks completed by education administrative assistant: Opening & closing, Harvesting grafts, Dissecting tissue, Removing tissue, Implanting device and Retracting Additional aquatics assistant department head?: Yes Additional Guard Captain #2: Cruz Gama PGY3 Tasks completed by aquatics assistant department head #2: Opening & closing, Harvesting grafts, Dissecting tissue, Removing tissue, Implanting device and Retracting Type of Anesthesia: General/Regional and Local RN Documented Start/Stop Times: Operation Date: 02/04/25 07:30 Case Time Into Pre-Op 02/04/25 06:02 Out of Pre-Op 02/04/25 07:46 Anesthesia Start 02/04/25 07:50 Into Room 02/04/25 07:50 Procedure Start 02/04/25 08:18 Procedure End 02/04/25 14:14 Anesthesia End 02/04/25 14:17 Out of Room 02/04/25 14:17 Into Recovery 02/04/25 14:38 Out of Recovery 02/04/25 15:48 Into Phase II Recovery 02/04/25 15:49 Out of Phase II 02/04/25 17:40 Procedure Start Time: 08:18 Procedure Stop Time: 14:14 Select all DRAINS/GRAFTS/IMPLANTS that apply: Implanted device Implanted device details: [place] partially-threaded noncannulated bolts, 5-0 and 6-5 Special Medications: Per anesthesia Estimated Blood Loss: 250/300 mL Fluids Replaced: Per anesthesia Specimen collected: Yes Description of specimen(s) removed: Internal orthopedic hardware Description of surgery: Indications For Operation: Mr. Wise is a 44-year-old diabetic male who was admitted to [facility] for left lower extremity surgery consisting of failed internal orthopedic hardware consisting of spherical implant with intramedullary nail. Patient suffers from diabetic neuropathy with Charcot-like changes to the bilateral lower extremity. Patient has had successful tibial talocalcaneal arthrodesis with intramedullary nail to the right lower extremity. He has been walking comfortably in diabetic shoes. However due to a change in medications the patient's blood sugar had spiked causing a Charcot breakdown to left lower extremity which eventually caused the intramedullary nail to the left lower extremity to fail and to back out. After attempts of conservative treatment with offloading and bracing the patient still has suffered additional setbacks with the nail coming out the bottom of the foot. Due to the risk and concern for below-knee amputation we discussed with the patient all surgical options. We discussed hardware removal and talocalcaneal arthrodesis versus below-knee amputation, being the fact that the patient is 44 years old he would like to attempt 1 more limb salvaging procedure before going the route of below the knee amputation. All risk and benefits were discussed the patient great detail. He had formal surgical consultation in the office. The chart reviewed and consent signed. Due to nature of the Charcot deformity to the left lower extremity and fell of the orthopedic hardware it was deemed necessary at this time to take the patient the operating room to form the above procedure to help reconstruct the patient's foot and remove the hardware to decrease the likelihood of below-knee amputation and get the patient back to regular daily living activities. The nature of the problem, anticipated procedures, postop recovery/convalences and risk/complications include but not limited to infection, wound healing complications, digital amputation, hypertrophic scarring, numbness, tingling, chronic pain, CRPS, over and under correction, recurrence of deformity, DVT and or PE and the need for further surgery have been discussed in great detail with the patient. All questions have been answered to the patient's satisfaction. There are no guarantees given as to the outcome of the procedure. Description of Procedure: Under mild sedation, the patient was brought into the operating room and placed on the operating table in supine position. Once the patient was under general anesthesia with laryngeal mask airway. The patient will be getting a popliteal and adductor block to left lower extremity in PACU by anesthesia after the case. Please see anesthesia note for further details. Next, a well-padded thigh tourniquet was applied to the left lower extremity. Next, the left lower extremity was prepped and draped in normal aseptic manner. Next, a timeout was then undertaken verifying the correct patient, extremity, visibility of preoperative markings, availability of the equipment. Next, attention was directed to the left lower extremity. Using a 6 Esmarch, left lower extremity was exsanguinated and elevated to 60 degrees for 1 minute. Procedure #1: Bone marrow aspirate harvest concentrate, left lower extremity (CPT code: 26004) Next, attention was directed to the left lower extremity to level of the lateral calcaneus. Next using a Jamshidi needle and mallet, the needle was inserted to the lateral wall of the calcaneus without incident. Approximately 60 cc of bone marrow aspirate concentrate were harvested passed the back table to be spun down to be used later in the case. The trocar was removed without incident. The small incision was flushed with copious amount of normal saline incision was closed with 3-0 nylon in simple interrupted suture technique. Procedure #2: Deep hard removal, left lower extremity (CPT code: 64138) Next, attention was directed to the left lower extremity at the level of the intramedullary nail and implant. Using a large C-arm fluoroscopy the proximal screws of the intramedullary nail were noted and identified and removed without incident through stab incisions from the proximal and distal left lower extremity. There was noted to be failure of some of the distal hardware in the calcaneus which was partially removed followed by the additional screw across the distal nail. Next, a incision was placed to the plantar left heel at the previous insertion of the intramedullary nail without incident. The removing apparatus was applied to the threaded portion of the distal screw to allow for evacuation of the intramedullary nail. Next, attention was directed to the left lower extremity, a full-thickness incisions was made over the lateral and medial ankle was made through the previous incision down to subcutaneous tissue which was then sharply dissected down to bone. Care was to retract all neurovascular and tendinous structures. Next, using the removing tool and slap paddle the intramedullary was removed and passed the back table to be sent off for pathology. Next, the custom implant was identified and removed and passed the back table to be sent off for pathology. Once all the hardware was removed large fluoroscopy was taken proximal distal as well as lateral to identify removing of the spherical implant, intramedullary nail and screw hardware. There was noted remaining hardware in the calcaneus. The remaining screws will not affect the arthrodesis portion of the treatment. At this time the left thigh tourniquet was deflated and reperfusion was noted instantly to left lower extremity. All bleeders were cauterized and ligated as necessary. Procedure #3: Tibiocalcaneal arthrodesis, left lower extremity (CPT code: 68472) Next, attention was directed to the distal tibia, using a sagittal saw the distal tibia was tabletop to allow for a good surface for apposition against the calcaneus. Exploration of the medial, lateral, posterior and anterior aspect of the previous spherical implant superior to the calcaneus and inferior to the tibia was remodeled with all scar tissue removed. Once all the scar tissue and debris was evacuated from the area there showed better apposition across the inferior tibial and superior calcaneal surfaces. Attempt to place the tibia over the calcaneus was done and identified clinically as well as under C-arm fluoroscopy. There was a small gap that was appreciated that would be eventually filled with bone graft. Next, all incisions were flushed with copious normal saline. Next, the superior surface of the calcaneus was fenestrated using a 2-0 drill bit as well as fenestration of the distal tibia. A combination of 10 cc of Vitoss bone graft with bone marrow aspirate concentrate mixture as well as cancellous bone chips were made into a ball and placed between the superior border of the calcaneus and the inferior border of the tibia and apposition was noted with minimal to no gapping. After waiting more than 20 minutes the left lower extremity was elevated for approximately 2 minutes and the left thigh tourniquet was reinflated. A large Steinmann pin was placed to hold the correction in place and a rectus foot was noted. Calcaneal axial view was obtained and there showed good rectus position of the calcaneus. Next, using a combination of 5-0 and 6-5 partially-threaded solid bolts were administered in a delta construct. Multiple large C-arm fluoroscopy views were taken in all 3 planes with a calcaneal axial and there showed great apposition across the arthrodesis site as well as good alignment of the delta construct of the left lower extremity. Procedure #4: Osteotomy of mid tarsal bones, left lower extremity (CPT code: 41901) Next, using the MIS bur and water bog worker, a osteotomy across the midtarsal joint was performed. An osteotomy was made completely through the midtarsal joint to allow for a more plantigrade forefoot. Once the forefoot was plantarflexed, a 5-0 transfixation bolt from the posterior calcaneus to the anterior aspect through the first ray was thrown to keep the forefoot in a flexed position. Again using a large C-arm fluoroscopy, multiple views in all 3 planes as well as calcaneal axial were obtained and there showed clinically as well as on x-ray a plantigrade foot to left lower extremity. Next, all incisions were flushed with copious normal saline. The plantar and heel incisions were reapproximated and closed using robinson. The deep layer to the medial and lateral incisions were reapproximated closed with 2-0 pop-off hand ties. Next, the left thigh tourniquet was deflated and reperfusion was noted instantly. Again all bleeders were cauterized and ligated as necessary. The subcutaneous layers of both incisions were reapproximated and closed using 2-0 Vicryl in running suture technique. The skin on both incision was reapproximated and closed on the medial lateral side with robinson. Retention sutures using 2-0 nylon were also administered to the medial lateral incisions. The left lower extremities were cleaned and patted dry. All incisions were dressed with Betadine soaked Adaptic, dry sterile dressing and double layer Kristi olivier AO splint at 90 degrees was donned to the left lower extremity. The patient tolerated the procedure and anesthesia well and apparent satisfactory condition and was transported to the PACU for further monitoring prior to discharge home. Vital signs stable and vascular status intact to all digits bilateral. Need for skilled aquatics assistant department head: Jordi Perkins DPM was critical to the outcome of the case. During the course of the procedure the aquatics assistant department head physician played a vital role. His intimate knowledge of my steps in the procedure aided in safe and expedient completion of the procedure. The aquatics assistant department head surgeon played a vital role in positioning particularly in obtaining the appropriate positioning. The aquatics assistant department head surgeon was also vital in the retraction of soft tissues during the exposure and protecting vital structures when needed. The surgeon was also vital and obtaining reduction and assisting with hardware placement throughout the case. Post Operative Plan: Weightbearing: Patient will be nonweightbearing to left lower extremity with knee scooter and/or crutches. Full weightbearing right lower extremity. Antibiotics: Vancomycin 1 g through the IV DVT Prophylaxis: 81 mg aspirin twice daily 30 days Hernandes: None Dressing: Betadine soaked Adaptic, dry sterile dressing double layer Bradford AO splint at 90 degrees to left lower extremity. X-Rays: Post-operative films taken on the operating room. Pain Medication: OxyContin 5 mg, Flexeril 10 mg 3 times daily Follow-up: Patient will follow-up with Dr. Hightower for postoperative evaluation and dressing changes. Patient will get home health care for external fixator care. Surgical Findings: 1. Evidence of Charcot-like changes appreciated to the level of the rear foot and midfoot with good apposition across the tibiocalcaneal arthrodesis site with plantarflexion across the midfoot secured in place with large partially-threaded bolts. Successful delta construct to the left lower extremity. 2. Rectus foot type achieved with surgical correction. Complications Complications: No Admit VTE Documentation VTE Present on Admission: No VTE Mechan Device Prophylaxis: SCD's VTE Pharm Prophylaxis ordered?: Yes
[2025-02-04] MEDS: Lactated Ringers 1,000 ML 15 ML IV (06:46)
[2025-02-04] MEDS: Vancomycin HCl 1,750 MG in 0.9% Normal Saline (500mL Bag) 500 ML 250 MG IV (06:48)
--- NOTE | 2025-02-04 07:05 | PCM.PRE.AN2 ---
ASA Classification* ASA Classification ASA Classification: 2 Assessment & Plan Anesthesia* Anesthesia Assessment Anesthesia Assessment: Discussed sedation and/or anesthesia options, risks, benefits, and alternatives with patient/parents/legal guardian/POA. Questions invited. The patient/parents/legal guardian/POA seems to understand and agrees to proceed with anesthesia plan. Reviewed the physical assessment, medical history, allergy history and patient home medications list prior to surgery/procedure/anesthetic and documented any changes. Performed airway and anesthesia risk assessments. Anesthesia Type Anesthesia Type: General and Block (Patient is consented for postop pain block.) History Source History Obtained from:: Patient and Chart Anesthesia Focused Assessment* Temperature: 98.3 F Pulse Rate: 93 Blood Pressure: 117/76 Respiratory Rate: 16 Pulse Ox: 98 Oxygen Delivery Method: Room Air Airway Assessment Mouth opens: >3 cm Mallampati Score: IV Teeth Condition: Intact Neck Range of motion (ROM): Full ROM Labs Anesthesia Preop lab: CBC WBC 6.0 K/mm3 (4.4-11.0) 01/17/25 16:30 01/17/25 RBC 5.05 M/mm3 (4.6-6.2) 01/17/25 16:30 01/17/25 Hgb 12.9 g/dL (13.0-16.5) L 01/17/25 16:30 01/17/25 Hct 40.0 % (40-54) 01/17/25 16:30 01/17/25 Plt Count 292 K/mm3 (150-450) 01/17/25 16:30 01/17/25 CHEMISTRY Potassium 4.2 mmol/L (3.3-5.1) 01/17/25 16:30 01/17/25 Sodium 139 mmol/L (133-145) 01/17/25 16:30 01/17/25 BUN 18 mg/dL (4-19) 01/17/25 16:30 01/17/25 Creatinine 0.84 mg/dL (0.70-1.20) 01/17/25 16:30 01/17/25 Glucose 148 mg/dL (70-99) H 01/17/25 16:30 01/17/25 POC Glucose 187 mg/dL (74-106) H 06/14/24 12:32 06/14/24 COAG PT 15.1 SECONDS (11.7-14.9) H 11/14/21 15:11 11/14/21 Pre-Assessment Diagnosis/Proposed Procedure Planned Operative Procedure(s): (L) Left Bone marrow aspirate concentrate harvest, Deep hardware removal, Tibiocalcaneal arthrodesis, Application of a external fixator, Partial osteotomy of the mid-tarsal bones, Surgical skin graft site prep with application of a skin graft substitute. Anesthesia History Anesthesia History - shift mechanic: Anesthesia History - shift mechanic Hx Hospitalization No 01/25/25 11:26 Any Problems With Anesthesia No 01/25/25 11:26 Cholinesterase deficiency No 01/25/25 11:26 You/Your Family Experience No 01/25/25 11:26 fever (hyperthermia) with Relationship Recent Exposure to Contagious No 02/04/25 06:41 Disease Does patient have nerve No 01/25/25 11:26 stimulator Patient instructed to have device shut off --Does patient have Pacemaker No 02/04/25 06:42 or ICD? When Was Last Pacemaker Check QUESTION #4 FULL TEXT: You/Your Family Experience fever (hyperthermia) with Anesthesia Last Oral Intake Last Oral intake: Last Oral Intake NPO since 00:00 02/04/25 06:42 Meds taken in AM with sips of Yes 02/04/25 06:42 water? Meds patient instructed to losartan 02/04/25 06:42 take am of surgery Any additional information?: Yes Meds taken in AM with sips of water?: Yes PONV PONV - shift mechanic: PONV - shift mechanic Female No 01/25/25 11:26 HX of Motion Sickness No 01/25/25 11:26 HX of N/V After Surgery No 01/25/25 11:26 Non-Smoker Yes 01/25/25 11:26 Duration of Surgery greater Yes 01/25/25 11:26 than 60 minutes Number of Risk Factors 2 01/25/25 11:26 PONV Score Moderate Risk 01/25/25 11:26 Height & Weight Height & Weight: Anesthesia: Height & Weight Height 5 ft 11 in 02/04/25 06:42 Weight: 117 kg 02/04/25 06:42 Body Mass Index (BMI) 35.9 02/04/25 06:42 Respiratory Assessment Respiratory Assessment - shift mechanic: Respiratory Tract Infection Hx - shift mechanic Hx Respiratory Tract Infection No 01/25/25 11:26 STOP Sleep Apnea STOP Sleep Apnea - shift mechanic: STOP Sleep Apnea - shift mechanic Hx Hypertension Yes: CONTROLLED WITH MED 01/25/25 11:26 Hx Sleep Apnea No 01/25/25 11:26 CPAP BIPAP Do you snore loudly (louder No 01/25/25 11:26 than talking or can be heard Do you often feel tired/ No 01/25/25 11:26 fatigued/ sleepy during daytime? Has anyone observed you stop No 01/25/25 11:26 breathing during sleep? STOP Results Negative 01/25/25 11:26 QUESTION #5 FULL TEXT : Do you snore loudly (louder than talking or can be heard through closed doors)? Tobacco Use History Tobacco Use History - shift mechanic: Tobacco Use History - shift mechanic Tobacco Use Smoking Status Never smoker 01/25/25 11:26 Hx Tobacco Use No 01/25/25 11:26 Years Smoking Packs Smoked per Day Smoking Cessation Date was within the last 15 years Hx Smoking Cessation Date Hx Smoking Cessation Counseling Hematologic Medial History Hematologic Hx - shift mechanic: Hematologic Medical Hx - lead web developer Hx of Blood Transfusion No 01/25/25 11:26 Hx of Transfusion in last 3 No 01/25/25 11:26 Months Date of Last Transfusion (if within last 3 months) Ever experience any problems No 01/25/25 11:26 with transfusion(s)? Specify any problems Hx of Preganancy in last 3 N/A 01/25/25 11:26 Months Nurse Filling Out Transfusion [email or web address] 01/25/25 11:26 & Questions: Date: 01/25/25 01/25/25 11:26 Time: 11:28 01/25/25 11:26 Patient unable to answer at this time (ie. confused, unrespo /Reproduction History /Reproductive History - shift mechanic: /Reproductive Hx- shift mechanic Hx Now Gestational Age (in weeks): EDC: Hx Hx Para Hx Section SAB No 06/06/24 11:08 Active Medications Active Medications: Current Medications Generic Name Dose Route Start Last Admin Trade Name Freq PRN Reason Stop Dose Admin Vancomycin HCl 1,750 mg/ 535 mls @ 250 mls/hr 02/04/25 07:30 02/04/25 06:48 Sodium Chloride IV 02/04/25 09:38 250 mls/hr INTRAOP ONE Administration Lactated Ringer's 1,000 mls @ 15 mls/hr 02/04/25 06:15 02/04/25 06:46 IV 15 mls/hr .Q48H MAGDA Administration PFSH Medical History (Updated 01/25/25 @ 11:35 by Tayla Pederson) Diabetes Ambulates with cane High cholesterol Walker as ambulation aid Non-smoker Non-pressure chronic ulcer of other part of left foot with necrosis of bone Hypertension Wears glasses Dietary restriction History of edema Hypertension Gas gangrene of foot Osteomyelitis of ankle or foot, left, acute Type 2 diabetes mellitus with diabetic polyneuropathy Home Medications ?Medication ?Instructions ?Recorded ?Last Taken ?Type multivitamin 1 tab PO DAILY SUPPLEMENT 11/24/21 02/03/25 History losartan 25 mg tablet 25 mg PO DAILY BLOOD PRESSURE 09/15/22 02/04/25 History semaglutide 14 mg tablet (Rybelsus) 14 mg PO DAILY DIABETES 07/06/23 01/27/25 History ascorbic acid (vitamin C) 1,000 mg 1,000 mg PO DAILY SUPPLEMENT 08/30/23 02/03/25 History tablet,extended release (C Complex) omega 0-fnu-oml-fish oil 300 2 cap PO DAILY SUPPLEMENT 08/30/23 02/03/25 History mg-1,000 mg capsule (Fish Oil) pravastatin 80 mg tablet 80 mg PO QHS CHOLESTEROL 08/30/23 02/03/25 History metformin 1,000 mg tablet 1,000 mg PO BID PRN DIABETES 06/06/24 Unknown History aspirin 81 mg tablet,delayed 162 mg (2 x 81 mg) PO DAILY #30 06/14/24 02/03/25 Rx release tabs ascorbic acid (vitamin C) 1,000 mg 1 g PO DAILY 90 days #90 tabs 02/04/25 Unknown Rx tablet (Vitamin C) aspirin 81 mg tablet,delayed 81 mg PO BID 30 days #60 tabs 02/04/25 Unknown Rx release calcium 500 mg (as 1 tab PO DAILY 90 days #90 tabs 02/04/25 Unknown Rx carbonate)-vitamin D3 15 mcg (600 unit) tablet (Os-Adarsh 500 + D3) cyclobenzaprine 10 mg tablet 10 mg PO TID muscle spasm 7 days 02/04/25 Unknown Rx #21 tabs docusate sodium 100 mg capsule 100 mg PO DAILY 10 days #10 caps 02/04/25 Unknown Rx (Colace) oxycodone 5 mg tablet 5 mg PO Q4H pain 7 days #42 tabs 02/04/25 Unknown Rx Allergy/AdvReac Type Severity Reaction Status Date / Time Penicillins (PCN) Allergy Rash Verified 01/25/25 11:22 Surgical History History of ankle surgery History of ankle surgery Hx of foot surgery Hx of foot surgery Hx of eye surgery Social History Smoking Status: Never smoker Review of Systems (Anesthesia) ROS Narrative System reviewed and no additional complaints, except as documented.
[2025-02-04 07:15] LABS: Bedside Glucose 123 mg/dL (74-106)
[2025-02-04] MEDS: Calcium Chloride 1 GM/10 ML Syringe (07:45)
[2025-02-04] MEDS: Heparin 10,000 UNITS/10 ML Vial 10000 UNITS (07:45)
[2025-02-04] MEDS: Thrombin 5,000 IU Kit (PSA) 5,000 IU Vial 5000 IU TOPICAL (07:45)
--- NOTE | 2025-02-04 07:55 | RAD_ITS ---
PROCEDURE: ANKLE MIN 3 VIEWS 02/04/2025 REASON FOR EXAM: LEFT BONE MARROW ASPIRATE, HARDWARE REMOVAL TECHNIQUE: ANKLE MIN 3 VIEWS COMPARISON: 06/14/2024. FINDINGS: Fluoroscopic images hardware removal of the foot/ankle were performed. 1219.3 seconds. 17.88 mGy. See procedure report for full details. RAD/Ankle min 3 Views IMPRESSION: As above. Reading Location: [id number]
--- NOTE | 2025-02-04 14:34 | PCM.POST.ANE ---
Anesthesia: Postop Eval I Current Vital Signs Temperature: 96.1 F Pulse Rate: 96 Blood Pressure: 105/62 Respiratory Rate: 16 Pulse Ox: 97 Oxygen Delivery Method: Nasal Cannula Oxygen Flow Rate (L/min): 3 Assessment Airway patent: Yes Spontaneous unlabored respirations: Yes Mental status: Awake and Calm nausea: No Vomiting: No Anesthesia Complication: No Fluid Hydration Crystalloid volume administer (ml): 3,000 Total IV fluid infused: 3,000 Progress Note Post-operative progress note: BS 195 Anesthesia document: Postop Eval 1 completed: Yes
[2025-02-04 14:50] LABS: Hematocrit 34.6 % (40-54)
[2025-02-04 15:30] LABS: Bedside Glucose 195 mg/dL (74-106)
--- NOTE | 2025-02-04 16:47 | POSTOPAN2_ITS ---
Anesthesia Postop Eval I Sum Postop Eval Completion status Anesthesia document: Postop Eval 1 completed: Yes Anesthesia Postop Eval I Summary Anesthesia Postop Eval I Summary: Anesthesia Postop Eval I: Assessment Summary Airway patent Yes 02/04/25 14:35 [email or web address] Spontaneous unlabored Yes 02/04/25 14:35 TRIMMER [email or web address] respirations Mental status Awake,Calm 02/04/25 14:35 [email or web address] [email or web address] nausea No 02/04/25 14:35 [email or web address] [email or web address] Vomiting No 02/04/25 14:35 [email or web address] Anesthesia Postop Eval I: Fluid Summary Crystalloid volume administer 3,000 02/04/25 14:35 [email or web address] (ml) Colloids volume administered ( ml) Blood Product volume administered (ml) Total IV fluid infused 3,000 02/04/25 14:35 TRIMMER [email or web address] Anesthesia Postop Eval I: Summary Notes Anesthesia Complication No 02/04/25 14:35 TRIMMER [email or web address] Anesthesia Complication Comment: Post-operative progress note BS 195 02/04/25 14:35 TRIMMER [email or web address] Anesthesia: Postop Eval II Evaluation Mental status: Awake Pain Level: 3 nausea: No Vomiting: No
--- NOTE | 2025-02-04 16:47 | PCM.POSTANE2 ---
Anesthesia Postop Eval I Sum Postop Eval Completion status Anesthesia document: Postop Eval 1 completed: Yes Anesthesia Postop Eval I Summary Anesthesia Postop Eval I Summary: Anesthesia Postop Eval I: Assessment Summary Airway patent Yes 02/04/25 14:35 GRASS FARM [email or web address] Spontaneous unlabored Yes 02/04/25 14:35 GRASS FARM LABORER.[email or web address] respirations Mental status Awake,Calm 02/04/25 14:35 GRASS FARM [email or web address].[email or web address] nausea No 02/04/25 14:35 GRASS FARM [email or web address] Vomiting No 02/04/25 14:35 GRASS FARM [email or web address] Anesthesia Postop Eval I: Fluid Summary Crystalloid volume administer 3,000 02/04/25 14:35 GRASS FARM [email or web address] (ml) Colloids volume administered ( ml) Blood Product volume administered (ml) Total IV fluid infused 3,000 02/04/25 14:35 GRASS FARM [email or web address] Anesthesia Postop Eval I: Summary Notes Anesthesia Complication No 02/04/25 14:35 GRASS FARM [email or web address].[email or web address] Anesthesia Complication Comment: Post-operative progress note BS 195 02/04/25 14:35 GRASS FARM [email or web address].[email or web address] Anesthesia: Postop Eval II Evaluation Mental status: Awake Pain Level: 3 nausea: No Vomiting: No
== END 2025-02-04 17:40 | disposition home or self-care (01) ==
LOC: SDC 05:50 → AC 05:50 → SDC 15:18 → AC 16:53 → SDC 16:54
PROVIDERS: PCP Student in an Organized Health Care Education/Training Program; Referring Provider Podiatrist Foot & Ankle Surgery; Visit Provider Podiatrist Foot & Ankle Surgery
PROC: (CPT 27870; principal; 2025-02-04 07:15)
DX: M14.672 Charcot's joint, left ankle and foot (principal); L97.323 Non-pressure chronic ulcer of left ankle with necrosis of muscle; E11.622 Type 2 diabetes mellitus with other skin ulcer; E11.42 Type 2 diabetes mellitus with diabetic polyneuropathy; T84.84XA Pain due to internal orthopedic prosthetic devices, implants and grafts, initial encounter; I10 Essential (primary) hypertension; E78.00 Pure hypercholesterolemia, unspecified; Z79.84 Long term (current) use of oral hypoglycemic drugs; Z79.82 Long term (current) use of aspirin; Z79.899 Other long term (current) drug therapy
CPT/HCPCS: 27870; 20680; 38220; 28304; 01480; 64450; 64447; 73610; 76000; 82962; 85014; 85018; C1713; C9399; J2405

== ENCOUNTER → 2025-04-02 | Outpatient (CLI) | payer BC, SELFPAY | END | disposition home or self-care (01) | LOC: LABSPEC 16:04 | PROVIDERS: PCP Student in an Organized Health Care Education/Training Program; Visit Provider Podiatrist Foot & Ankle Surgery | DX: S91.002A Unspecified open wound, left ankle, initial encounter (principal) | CPT/HCPCS: 87070; 87077; 87186; 87205 ==

== ENCOUNTER → 2025-06-10 | Outpatient (CLI) | payer BC, SELFPAY | END | disposition home or self-care (01) | LOC: LABSPEC 16:59 | PROVIDERS: PCP Student in an Organized Health Care Education/Training Program; Visit Provider Podiatrist Foot & Ankle Surgery | DX: S91.002A Unspecified open wound, left ankle, initial encounter (principal) | CPT/HCPCS: 87070; 87075; 87077; 87186; 87205 ==

== ENCOUNTER 2025-06-14 05:43 | Day surgery (SDC) | payer BC, SELFPAY ==
[2025-06-14] VITALS (10 sets, daily range): BP systolic 96–112; BP diastolic 55–86; PULSE 89–100; RESP 18; TEMP 36.3–36.8; O2SAT 78–99; BMI 33.6
[2025-06-14] MEDS: Lactated Ringers 1,000 ML 15 ML IV (06:29)
--- NOTE | 2025-06-14 06:42 | PCM.PRE.AN2 ---
ASA Classification* ASA Classification ASA Classification: 2 Assessment & Plan Anesthesia* Anesthesia Assessment Anesthesia Assessment: Discussed sedation and/or anesthesia options, risks, benefits, and alternatives with patient/parents/legal guardian/POA. Questions invited. The patient/parents/legal guardian/POA seems to understand and agrees to proceed with anesthesia plan. Reviewed the physical assessment, medical history, allergy history and patient home medications list prior to surgery/procedure/anesthetic and documented any changes. Performed airway and anesthesia risk assessments. Anesthesia Type Anesthesia Type: General History Source History Obtained from:: Patient and Chart Anesthesia Focused Assessment* Temperature: 98.2 F Pulse Rate: 100 Blood Pressure: 112/86 Respiratory Rate: 18 Pulse Ox: 99 Oxygen Delivery Method: Room Air Airway Assessment Mouth opens: >3 cm Mallampati Score: IV Teeth Condition: Intact Neck Range of motion (ROM): Limited ROM (Slight Decrease) Labs Anesthesia Preop lab: CBC WBC, (4.4-11.0) 6.0 K/mm3 01/17/25, 16:30 RBC, (4.6-6.2) 5.05 M/mm3 01/17/25, 16:30 Hgb, (13.0-16.5) 11.0 g/dL L 02/04/25, 14:35 Hct, (40-54) 34.6 % L 02/04/25, 14:35 Plt Count, (150-450) 292 K/mm3 01/17/25, 16:30 CHEMISTRY Potassium, (3.3-5.1) 4.2 mmol/L 01/17/25, 16:30 Sodium, (133-145) 139 mmol/L 01/17/25, 16:30 BUN, (4-19) 18 mg/dL 01/17/25, 16:30 Creatinine, (0.70-1.20) 0.84 mg/dL 01/17/25, 16:30 Glucose, (70-99) 148 mg/dL H 01/17/25, 16:30 POC Glucose, (74-106) 195 mg/dL H 02/04/25, 14:24 COAG PT, (11.7-14.9) 15.1 SECONDS H 11/14/21, 15:11 Pre-Assessment Diagnosis/Proposed Procedure Planned Operative Procedure(s): REMOVAL OF RIGHT FOOT DEEP TISSUE HARDWARE,RIGHT ANKLE ARTHRODESIS WITH APPLICATION OF EXTERNAL FIXATOR Anesthesia History 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 When Was Last Pacemaker Check QUESTION #4 FULL TEXT: You/Your Family Experience fever (hyperthermia) with Anesthesia Last Oral Intake Last Oral intake: Last Oral Intake NPO since 04:20 06/14/25 06:24 Meds taken in AM with sips of Yes 06/14/25 06:24 water? Meds patient instructed to LOSARTAN 06/14/25 06:24 take am of surgery Any additional information?: Yes Meds taken in AM with sips of water?: Yes PONV PONV - floral decorator: PONV - floral decorator Female No 06/10/25 11:22 HX of Motion Sickness No 06/10/25 11:22 HX of N/V After Surgery No 06/10/25 11:22 Non-Smoker Yes 06/10/25 11:22 Duration of Surgery greater Yes 06/10/25 11:22 than 60 minutes Number of Risk Factors 2 06/10/25 11:22 PONV Score Moderate Risk 06/10/25 11:22 Height & Weight Height & Weight: Anesthesia: Height & Weight Height 5 ft 11 in 06/14/25 06:24 Weight: 109.5 kg 06/14/25 06:24 Body Mass Index (BMI) 33.6 06/14/25 06:24 Respiratory Assessment Respiratory Assessment - floral decorator: Respiratory Tract Infection Hx - floral decorator Hx Respiratory Tract Infection No 06/10/25 11:22 STOP Sleep Apnea STOP Sleep Apnea - floral decorator: STOP Sleep Apnea - floral decorator Hx Hypertension Yes: CONTROLLED WITH MED 06/10/25 11:22 Hx Sleep Apnea No 06/10/25 11:22 CPAP BIPAP Do you snore loudly (louder No 06/10/25 11:22 than talking or can be heard Do you often feel tired/ No 06/10/25 11:22 fatigued/ sleepy during daytime? Has anyone observed you stop No 06/10/25 11:22 breathing during sleep? STOP Results Negative 06/10/25 11:22 QUESTION #5 FULL TEXT : Do you snore loudly (louder than talking or can be heard through closed doors)? Tobacco Use History Tobacco Use History - floral decorator: Tobacco Use History - floral decorator Tobacco Use Smoking Status Never smoker 06/10/25 11:22 Hx Tobacco Use No 06/10/25 11:22 Years Smoking Packs Smoked per Day Smoking Cessation Date was within the last 15 years Hx Smoking Cessation Date Hx Smoking Cessation Counseling Hematologic Medial History Hematologic Hx - floral decorator: Hematologic Medical Hx - press set up person Hx of Blood Transfusion No 06/10/25 11:22 Hx of Transfusion in last 3 No 06/10/25 11:22 Months Date of Last Transfusion (if within last 3 months) Ever experience any problems No 06/10/25 11:22 with transfusion(s)? Specify any problems Hx of Preganancy in last 3 N/A 06/10/25 11:22 Months Nurse Filling Out Transfusion [email or web address] 06/10/25 11:22 & Questions: Date: 06/10/25 06/10/25 11:22 Time: 11:23 06/10/25 11:22 Patient unable to answer at this time (ie. confused, unrespo /Reproduction History /Reproductive History - floral decorator: /Reproductive Hx- floral decorator Hx Now No 06/10/25 11:22 Gestational Age (in weeks): EDC: Hx Hx Para Hx Section SAB No 06/10/25 11:22 Does the father of the baby or his family experience fever w Father of the baby Malignant Hypertension history comment Active Medications Active Medications: Current Medications Generic Name Dose Route Start Last Admin Trade Name Freq PRN Reason Stop Dose Admin Clindamycin Phosphate 900 mg in 50 mls @ 75 mls/hr 06/14/25 09:30 Cleocin IV 06/14/25 10:09 INTRAOP ONE Lactated Ringer's 1,000 mls @ 15 mls/hr 06/14/25 06:00 06/14/25 06:29 IV 15 mls/hr .Q48H MAGDA Administration PFSH Medical History Open wound Uses wheelchair Diabetes High cholesterol Non-smoker Non-pressure chronic ulcer of other part of left foot with necrosis of bone Wears glasses Dietary restriction History of edema Hypertension Osteomyelitis of ankle or foot, left, acute Home Medications ?Medication ?Instructions ?Recorded ?Last Taken ?Type multivitamin 1 tab PO DAILY SUPPLEMENT 11/24/21 02/03/25 History losartan 25 mg tablet 25 mg PO DAILY BLOOD PRESSURE 09/15/22 06/14/25 04:20 History semaglutide 14 mg tablet (Rybelsus) 14 mg PO DAILY DIABETES 07/06/23 05/20/25 History omega 7-qzc-aaz-fish oil 300 2 cap PO DAILY SUPPLEMENT 08/30/23 02/03/25 History mg-1,000 mg capsule (Fish Oil) pravastatin 80 mg tablet 80 mg PO QHS CHOLESTEROL 08/30/23 02/03/25 History metformin 1,000 mg tablet 1,000 mg PO BID DIABETES 06/06/24 Unknown History aspirin 81 mg tablet,delayed 162 mg (2 x 81 mg) PO DAILY #30 06/14/24 02/03/25 Rx release tabs ascorbic acid (vitamin C) 1,000 mg 1 g PO DAILY 90 days #90 tabs 02/04/25 Unknown Rx tablet (Vitamin C) calcium 500 mg (as 1 tab PO DAILY 90 days #90 tabs 02/04/25 Unknown Rx carbonate)-vitamin D3 15 mcg (600 unit) tablet (Os-Adarsh 500 + D3) doxycycline hyclate 100 mg capsule 100 mg PO BID 2 weeks #28 caps 02/04/25 Unknown Rx ferrous sulfate 325 mg (65 mg 325 mg PO QODAY 06/10/25 Unknown History iron) tablet,delayed release Allergy/AdvReac Type Severity Reaction Status Date / Time Penicillins (PCN) Allergy Rash Verified 06/14/25 06:22 Surgical History Hx of foot surgery History of ankle surgery History of ankle surgery Hx of foot surgery Hx of foot surgery Hx of eye surgery Social History Smoking Status: Never smoker Review of Systems (Anesthesia) ROS Narrative System reviewed and no additional complaints, except as documented.
[2025-06-14] MEDS: Midazolam 2 MG/2 ML Syringe IV (07:35)
[2025-06-14] MEDS: Lidocaine 1% (5 ml sdv) 5 ML Vial IV (07:35)
--- NOTE | 2025-06-14 07:40 | RAD_ITS ---
PROCEDURE: RAD/Ankle 2 Views
[2025-06-14] MEDS: Lactated Ringers 1,000 ML 1000 ML IV (07:44)
--- NOTE | 2025-06-14 07:48 | OP.PCM_ITS ---
Operative Report (Standard)
--- NOTE | 2025-06-14 07:48 | PCM.OPRPT ---
Operative Report (Standard) Operative Information Date of Procedure: 06/14/25 Pre-Operative Diagnosis: 1. Charcot foot and ankle, right lower extremity 2. Painful retained hardware, right lower extremity Post-Operative Diagnosis: 1. Charcot foot and ankle, right lower extremity 2. Painful retained hardware, right lower extremity Surgery/Procedure Performed: Procedure #1: [place] of bone marrow aspirate concentrate, right lower extremity Procedure #2: Removal of deep internal orthopedic hardware, right lower extremity Procedure #3: Ankle arthrodesis, right lower extremity Procedure #4: Subtalar joint arthrodesis, right lower extremity Procedure #5: Application of multiplanar external fixator, right lower extremity column precaster: Yes Emergency Room Registered Nurse: Cruz Gama, PGY3 Tasks completed by nursing home assistant administrator: Closing and Implanting device Additional nursing home assistant administrator?: Yes Additional Outsoles Channel Opener #2: Mallory Rodriguez, PGY3 Tasks completed by nursing home assistant administrator #2: Closing and Implanting device Additional nursing home assistant administrator?: Yes Additional Outsoles Channel Opener #3: Don Chi, PGY1 Tasks completed by nursing home assistant administrator #3: Implanting device Type of Anesthesia: General/Regional and Local RN Documented Start/Stop Times: Operation Date: 06/14/25 07:30 Case Time Into Pre-Op 06/14/25 05:58 Anesthesia Start 06/14/25 07:44 Into Room 06/14/25 07:44 Procedure Start 06/14/25 08:02 Procedure End 06/14/25 11:42 Anesthesia End 06/14/25 11:46 Out of Room 06/14/25 11:46 Into Recovery 06/14/25 11:47 Out of Recovery 06/14/25 12:36 Into Phase II Recovery 06/14/25 12:37 Out of Phase II 06/14/25 13:30 Procedure Start Time: 08:02 Procedure Stop Time: 11:42 Select all DRAINS/GRAFTS/IMPLANTS that apply: Prosthetic device Prosthetic device details: Multiplanar external fixator, [place] and Graft Graft details: Bone marrow aspirate concentrate injection Special Medications: Per anesthesia Estimated Blood Loss: 30 mL Fluids Replaced: Per anesthesia Specimen collected: Yes Description of specimen(s) removed: Anaerobic and aerobic swab cultures were taken from the ankle sent to microbiology. Description of surgery: Indications For Operation: Mr. Wise is a 45-year-old diabetic male who was admitted to [facility] for right lower extremity surgery secondary to hardware failure due to Charcot foot and ankle. Patient is well-known to my practice and has had bilateral Charcot issues for the past year. Patient did have surgical intervention on the bilateral lower extremity from an outside provider that is no longer with the office. The most recent surgery was to the left lower extremity where the patient underwent a tibial calcaneal arthrodesis with bolt fusion. Since then the patient has been partial weightbearing to the right lower extremity and since he has such severe neuropathy even though his blood sugars very well-controlled he ended up causing a Charcot event to the right lower extremity where it became red hot and swollen. This incident happened approximately 2 weeks ago he was ordered to stay off both feet placed on oral antibiotics doxycycline 100 mg twice daily, he also had a fluid-filled blister to the lateral left ankle that was cultured that showed positive culture results sensitive to doxycycline as well. During my workup for the patient regarding the right lower extremity I did discuss with the patient risk and benefits moving forward with the above procedure. I also offered the patient referral to vascular surgery and or general surgery for the below-knee amputation but he refused. During follow-up prior to surgery the patient's redness and swelling did improve with nonweightbearing status and compression. After further discussion with the patient and his family we agreed to move forward with removal of the hardware and application of multiplanar external fixator to the right lower extremity. Patient did have a in-depth surgical consultation with all risk and benefit discussed with the patient in great detail. Chart review consent signed due to failing of the hardware to right lower extremity was deemed necessary at this time to take patient operating performed above procedure to help heal his right lower extremity Charcot event and maintain alignment. The nature of the problem, anticipated procedures, postop recovery/convalences and risk/complications include but not limited to infection, wound healing complications, digital amputation, hypertrophic scarring, numbness, tingling, chronic pain, CRPS, over and under correction, recurrence of deformity, DVT and or PE and the need for further surgery have been discussed in great detail with the patient. All questions have been answered to the patient's satisfaction. There are no guarantees given as to the outcome of the procedure. Description of Procedure: Under mild sedation, the patient was brought into the operating room and placed on the operating table in supine position. Once the patient was under general anesthesia with intravascular, the right lower extremity was blocked at the saphenous nerve using approximately 10 cc 0.5% Marcaine plain. Patient did receive a popliteal block per anesthesia prior to the procedure. Please see anesthesia note for further detail. Next, a well-padded thigh tourniquet was applied to the right lower extremity. Next, the right lower extremity was prepped and draped in normal aseptic manner. Next, a timeout was then undertaken verifying the correct patient, extremity, visibility of preoperative markings, availability of the equipment. Procedure #1: [place] of bone marrow aspirate concentrate, right lower extremity (CPT code: 23582) Next, attention was directed to the right lower extremity. Using the [employer] needle and mallet of the calcaneal wall on the lateral side was used to obtain the bone marrow aspirate concentrate. The initial attempt to obtain the aspirate from the calcaneus was unsuccessful. Decision was made to move to the proximal tibia which was successful. Approximately 40 to 50 cc of bone marrow aspirate concentrate were harvested and passed the back table to be spun off for bone marrow aspirate concentrate injection to be used for the arthrodesis section of the procedure. All incision were flushed with copious normal saline. Incisions were closed with 3-0 nylon in simple suture technique. Next, attention was directed to the right lower extremity. Using a foreign Esmarch, right lower extremity was exsanguinated and elevated to 60 degrees for 1 minute. Procedure #2: Removal of deep internal orthopedic hardware, right lower extremity (CPT code: 56915) Next, attention was directed to the right lower extremity. Using large cam fluoroscopy the proximal and distal hardware/bolts were marked out. There showed evidence of radiolucency around the subtalar joint ankle joint secondary to Charcot like reaction. Next, attention was directed to the plantar aspect of the right heel. Using large C-arm fluoroscopy the end of the intramedullary nail was marked out. Next using a #15 blade a full-thickness incision was carried down to subcutaneous tissue with continued blunt dissection carried down to the level of the calcaneal bone. The hardware was identified and using a sharp rongeur, the bony overgrowth was identified and removed. Next using the hardware removal hex driver trainee, the end To the intramedullary nail was removed. Next, attention was directed to the heel bone at the level of the posterior to anterior calcaneal screw. The head of the screw was marked out with large, fluoroscopy. Next using a #15 blade a full-thickness incision was carried down to bone with continued blunt dissection carried down to the level of the posterior calcaneus. Using a sharp rongeur, the bony overgrowth was removed and the head of the screw was obtained and backed out using the hardware removal hex driver trainee. Next, attention was directed to the lateral right lower extremity at the level of the transverse screws at the level of the ankle and subtalar joint. A large incision was made laterally using a #15 blade to the level of the subcutaneous tissue. Continued blunt dissection was carried down to the level of bone. During bony overgrowth from renewal there was evidence of glycosylated draining tissue at the level of the ankle and subtalar joint which was cultured and sent to the back table to be sent off for microbiology. Next, sharp dissection carried down and around to the level of the screw heads with the talus screw backing out. Next, sharp rongeur was used to remove the bony overgrowth to the proximal lateral screw near the ankle joint. Next using the hardware removal hex driver trainee both screws were backed out. Next, attention was directed to the proximal medial aspect of the 2 remaining proximal screws in the intervention the nail. The location of these 2 screws were marked out using large fluoroscopy. Using a #15 blade a full-thickness incision carried down to subcutaneous tissue was obtained and continued blunt dissection was carried down to bone. The screws were identified and bony overgrowth was used with sharp rongeur. Using the hex driver trainee screwdriver, the screws were backed out in total without incident. Next, attention was directed back to the most inferior aspect of the intramedullary nail, which was removed with pliers without incident. Final x-rays were taken and all hardware was removed. Next, all incisions were flushed with copious normal saline. Procedure #3: Ankle arthrodesis, right lower extremity (CPT code: 56779) / Procedure #4: Subtalar joint arthrodesis, right lower extremity (CPT code: 88661) Next, using a combination of osteotomes and curettes the ankle joint and subtalar joint were prepped through the lateral incision. There was evidence of extreme bony overgrowth that was eventually removed with a large rongeur. Next, the right lower extremity thigh tourniquet was deflated and reperfusion was noted initially to the right lower extremity. All bleeders were cauterized and ligated as necessary. All incisions were closed in the same fashion on the right lower extremity, with the deep layer being reapproximated closed with 2-0 Vicryl in running locking suture technique, the subcutaneous layer was reapproximated closed using 2-0 Vicryl in running suture technique, and the skin layer was reapproximated closed with 2-0 Vicryl and combinations of simple interrupted suture and horizontal mattress suture techniques. Procedure #5: Application of multiplanar external fixator, right lower extremity (CPT code: 85986) Next, the multilayer external fixator was made on the back table during the procedure. The external fixator was placed over the right lower extremity. Next, the proximal ring was secured with 2 smooth wires approximately 30 degrees apart. Tensioning was obtained per the manufactures recommendation for the proximal ring. Next, attention was directed to the next distal proximal ring using 2 smooth wires approximately 30 degrees apart. Tensioning was obtained per the manufacture recommendation for the proximal distal ring. Next, attention was directed to the foot ring. To all of wires were passed from lateral to medial and medial to lateral through the level of the forefoot and midfoot with care to build up to the rings without causing stress on the olive wires. Next, tensioning was done away from the all left per the cloth mercerizer back tender's recommendation. Next, attention was directed to the calcaneal bone with attempt to secure to all of wires which was unsuccessful due to the level of the Charcot foot. The olive wires were removed and a transfixation calcaneal pin/bar was placed instead and secured in place with the manufactures recommendation with the rep in the room. All pins were cleaned with sterile water, and wiped clean and patted dry. Next, the right lower extremity was wiped cleaned and patted dry. Approximately 4 to 5 cc of bone marrow aspirate concentrate were injected at the level of the ankle and subtalar joint to aid in fusion. Next, good apposition was obtained with compression from distal to proximal through the frame which was eventually locked in place. After the frame was secured there showed good apposition with final x-rays in the AP, mortise and lateral ankle and foot view. All pins were dressed with Xeroform wrap and covered with 4 x 4's, Uma and 3 inch Sal bandages from sulcus of toes to mid calf. The patient tolerated the procedure and anesthesia well and apparent satisfactory condition and was transported to the PACU for further monitoring prior to discharge home. Vital signs stable and vascular status intact to all digits bilateral. Post Operative Plan: Weightbearing: Patient will be nonweightbearing to the bilateral lower extremity. Antibiotics: 900 mg clindamycin. Patient be placed on doxycycline 100 mg twice daily for prophylaxis DVT Prophylaxis: 81 mg aspirin Hernandes: None Dressing: Xeroform to all pin sites, 4 x 4's, dry sterile dressing and 3 inch Sal wrap's X-Rays: Post-operative films taken on the operating room. Pain Medication: Oxycodone 5 mg Follow-up: Patient will follow-up at already scheduled postop appointment Dr. Hightower in private office for dressing change and external fixator evaluation. Surgical Findings: 1. Evidence of Charcot foot and ankle 2. Complete removal of failed orthopedic hardware 3. Successful application of external fixator with good apposition of the ankle and subtalar joint Complications Complications: No Admit VTE Documentation VTE Present on Admission: No VTE Mechan Device Prophylaxis: SCD's VTE Pharm Prophylaxis ordered?: Yes
[2025-06-14] MEDS: fentaNYL 100 MCG/2 ML Ampul 200 MCG IV (07:50)
[2025-06-14] MEDS: 0.9% Normal Saline (1000mL) 500 ML IV (08:49)
--- NOTE | 2025-06-14 12:12 | POSTOP.ANE_ITS ---
Anesthesia: Postop Eval I
--- NOTE | 2025-06-14 12:12 | PCM.POST.ANE ---
Anesthesia: Postop Eval I Current Vital Signs Temperature: 98.1 F Pulse Rate: 93 Blood Pressure: 109/57 Respiratory Rate: 18 Pulse Ox: 92 Oxygen Delivery Method: Nasal Cannula Oxygen Flow Rate (L/min): 2 Assessment Airway patent: Yes Spontaneous unlabored respirations: Yes Mental status: Awake and Calm nausea: No Vomiting: No Anesthesia Complication: No Fluid Hydration Crystalloid volume administer (ml): 1,500 Total IV fluid infused: 1,500 Progress Note Anesthesia document: Postop Eval 1 completed: Yes
--- NOTE | 2025-06-15 12:00 | POSTOPAN2_ITS ---
Anesthesia Postop Eval I Sum
--- NOTE | 2025-06-15 12:00 | PCM.POSTANE2 ---
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 Spontaneous unlabored Yes 06/14/25 12:12 LEARNING DEVELOPMENT SPECIALIST.MDOT respirations Mental status Awake,Calm 06/14/25 12:12 LEARNING DEVELOPMENT SPECIALIST.MDOT nausea No 06/14/25 12:12 LEARNING DEVELOPMENT SPECIALIST.MDOT Vomiting No 06/14/25 12:12 LEARNING DEVELOPMENT SPECIALIST.MDOT Anesthesia Postop Eval I: Fluid Summary Crystalloid volume administer 1,500 06/14/25 12:12 LEARNING DEVELOPMENT SPECIALIST.MDOT (ml) Colloids volume administered ( ml) Blood Product volume administered (ml) Total IV fluid infused 1,500 06/14/25 12:12 LEARNING DEVELOPMENT SPECIALIST.MDOT Anesthesia Postop Eval I: Summary Notes Anesthesia Complication No 06/14/25 12:12 LEARNING DEVELOPMENT SPECIALIST.MDOT Anesthesia Complication Comment: Post-operative progress note Anesthesia: Postop Eval II Evaluation Mental status: Awake and Calm Pain Level: 1 nausea: No Vomiting: No Complications Anesthesia Complication: No
== END 2025-06-14 13:31 | disposition home or self-care (01) ==
LOC: SDC 05:44 → AC 05:44
PROVIDERS: PCP Student in an Organized Health Care Education/Training Program; Referring Provider Podiatrist Foot & Ankle Surgery; Visit Provider Podiatrist Foot & Ankle Surgery
PROC: (CPT 28725; principal; 2025-06-14 07:15)
DX: T84.84XA Pain due to internal orthopedic prosthetic devices, implants and grafts, initial encounter (principal); E11.610 Type 2 diabetes mellitus with diabetic neuropathic arthropathy; E11.51 Type 2 diabetes mellitus with diabetic peripheral angiopathy without gangrene; E11.42 Type 2 diabetes mellitus with diabetic polyneuropathy; E11.319 Type 2 diabetes mellitus with unspecified diabetic retinopathy without macular edema; I10 Essential (primary) hypertension; E78.5 Hyperlipidemia, unspecified; E66.9 Obesity, unspecified; Z79.84 Long term (current) use of oral hypoglycemic drugs; Z79.82 Long term (current) use of aspirin; Z79.899 Other long term (current) drug therapy
CPT/HCPCS: 28725; 27870; 38232; 20692; 20680; 64450; 01480; 73600; 76000; 82962; 87070; 87075; 87077; 87102; 87186; 87205; 87206; C1713; J2405